=== PATIENT | female | born 1945 | race Caucasian/White ===

== ENCOUNTER 2018-03-03 09:32 | Emergency (ER) | payer MEDICARE, SELFPAY ==
[2018-03-03 09:36] VITALS: BP 137/84; PULSE 69; RESP 14; TEMP 36.6; O2SAT 99; BMI 26.9
--- NOTE | 2018-03-03 10:12 | RAD_ITS ---
STUDY: X-RAY - RIGHT FOOT CLINICAL: Female, 72 years old. 2 week history of dorsal foot pain following injury. TECHNIQUE: 3 view(s) of the foot. COMPARISON: None. FINDINGS: There is an enthesophyte involving the posterior superior calcaneus at the site of insertion of the Achilles tendon. Normal visualized subtalar, talonavicular, calcaneocuboid, tarsal and tarsometatarsal articulations. Normal metatarsi. There is degenerative arthrosis of the metatarsophalangeal joint of the hallux . Normal tibial and fibular sesamoid bones. Normal interphalangeal joint of the great toe. Normal phalanges of the great toe. Normal second through fifth metatarsophalangeal joints. Normal interphalangeal joints and phalanges of the lesser toes. Soft tissue swelling. RAD/Foot min 3 Views IMPRESSION: No acute abnormality is seen. Electronically Signed: Homero Urban MD at 10:45 EST Tel [phone], Service support ,
--- NOTE | 2018-03-03 11:11 | ED.DCSUM_ITS ---
- ER Visit Summary Date of Service: 03/03/18 Chief Complaint: Right foot pain History of Present Illness: The patient is a 72 F who presents with right foot pain that began approximately 2 weeks ago when a 2 x 2 piece of wood fell onto her right foot. Patient states the pain is worse with certain movements and ambulation. Patient states the pain improves with certain other movements. Patient denies any paresthesias or weakness. Patient states the pain became worse today and she felt like today she needed to have it examined. Patient denies any other injuries. Physical Examination: Vital signs are stable. Patient is afebrile. Patient is in no acute distress. Musculoskeletal exam reveals tenderness with some mild edema and ecchymosis over the dorsal aspect of the right foot, worse over the first tarsometatarsal joint. There is no deformity noted. There is good range of motion. There is some pain with plantar flexion and dorsiflexion. Pedal pulses are equal bilaterally. Sensation was intact to light touch in all digits. Capillary refill was less than 2 seconds in all digits. The remaining physical exam is within normal limits. Test Results: X-rays of the right foot were obtained. There is no acute fracture. There is no dislocation noted. Emergency Department Course and Treatment: Patient was instructed to ice and elevate the right foot. Patient was given a boot orthosis. Patient was instructed to take ibuprofen or Tylenol as needed for pain. Patient was instructed to follow-up with her primary care physician in 5-7 days. Patient understood and was agreeable with the plan. All questions were answered. Disposition: Discharged home Impression: Right foot sprain This note was generated with [employer] dictation software. It may contain incorrect words, spelling, and punctuation that were not noted in review of the chart prior to signing ED Disposition - Plan for ED Patient: Disposition: Home or Assisted Living Chief Complaint: Lower Extremity Injury Diagnosis: Right foot sprain Instructions: ED Sprain Foot Referrals: Gianni Vizcarra DO [Primary Care Provider] -
[2018-03-03 11:35] VITALS: BP 126/77; PULSE 62; RESP 15; O2SAT 99
--- OUTSIDE RECORDS SUMMARY | 2018-04-19 05:29 | XMS RPT_ITS ---
:1945 Author Organization [facility] Care Team Providers Name Role Phone Gianni Vizcarra Primary Care Unavailable Avtar Maria Attending Unavailable PROBLEMS PROBLEMS No Problem Records FoundPROCEDURES PROCEDURES No Procedure Records FoundRESULTS RESULTS EMERGENCY DEPARTMENT Observed: 03/03/2018 Status: F Source: [place] SUMMARY 11:13 AM [facility] Medical Records Department [address] [place] [id number] Emergency Department Summary 03/03/18 1107 MR#: [id number] Acct: [id number] Name: JANNY HAMMER Rep #: [id number] : 1945 72 From: Avtar Maria DO PCP: Gianni Vizcarra DO Status: REG ER - ER Visit Summary Date of Service: 03/03/18 Chief Complaint: Right foot pain History of Present Illness: The patient is a 72 F who presents with right foot pain that began approximately 2 weeks ago when a 2 x 2 piece of wood fell onto her right foot. Patient states the pain is worse with certain movements and ambulation. Patient states the pain improves with certain other movements. Patient denies any paresthesias or weakness. Patient states the pain became worse today and she felt like today she needed to have it examined. Patient denies any other injuries. Physical Examination: Vital signs are stable. Patient is afebrile. Patient is in no acute distress. Musculoskeletal exam reveals tenderness with some mild edema and ecchymosis over the dorsal aspect of the right foot, worse over the first tarsometatarsal joint. There is no deformity noted. There is good range of motion. There is some pain with plantar flexion and dorsiflexion. Pedal pulses are equal bilaterally. Sensation was intact to light touch in all digits. Capillary refill was less than 2 seconds in all digits. The remaining physical exam is within normal limits. Test Results: X-rays of the right foot were obtained. There is no acute fracture. There is no dislocation noted. Emergency Department Course and Treatment: Patient was instructed to ice and elevate the right foot. Patient was given a boot orthosis. Patient was instructed to take ibuprofen or Tylenol as needed for pain. Patient was instructed to follow-up with her primary care physician in 5-7 days. Patient understood and was agreeable with the plan. All questions were answered. Disposition: Discharged home Impression: Right foot sprain This note was generated with [employer] dictation software. It may contain incorrect words, spelling, and punctuation that were not noted in review of the chart prior to signing ED Disposition - Plan for ED Patient: Disposition: Home or Assisted Living Chief Complaint: Lower Extremity Injury Diagnosis: Right foot sprain Instructions: ED Sprain Foot Referrals: Gianni Vizcarra DO [Primary Care Provider] - What to do if you have Problems For any increased pain, shortness of breath, bleeding, nausea or vomiting, chest pain, or any unexpected problems, contact your Primary Care Provider. Call [facility] ([phone]) or report to the closest Emergency Room. Call 911 if necessary. 03/03/18 1113 <Electronically signed by Avtar Maria DO> Date Avtar Maria DO Cosigner Signature (If Indicated): Date CC: Gianni Vizcarra DO FOOT MIN 3 VIEWS Observed: 03/03/2018 Status: F Source: [place] 10:12 AM [facility] Imaging Services [address] [place] [address] Foot min 3 Views MR#: [id number] Acct: [id number] Name: JANNY HAMMER Rep #: [id number] : 1945 F 72 From: Homero Urban MD PCP: Gianni Vizcarra DO Status: REG ER Study: Foot min 3 Views Date of Exam: 03/03/18 Exam# [id number] Ordering Dr: Avtar Maria DO STUDY: X-RAY - RIGHT FOOT CLINICAL: Female, 72 years old. 2 week history of dorsal foot pain following injury. TECHNIQUE: 3 view(s) of the foot. COMPARISON: None. FINDINGS: There is an enthesophyte involving the posterior superior calcaneus at the site of insertion of the Achilles tendon. Normal visualized subtalar, talonavicular, calcaneocuboid, tarsal and tarsometatarsal articulations. Normal metatarsi. There is degenerative arthrosis of the metatarsophalangeal joint of the hallux . Normal tibial and fibular sesamoid bones. Normal interphalangeal joint of the great toe. Normal phalanges of the great toe. Normal second through fifth metatarsophalangeal joints. Normal interphalangeal joints and phalanges of the lesser toes. Soft tissue swelling. RAD/Foot min 3 Views IMPRESSION: No acute abnormality is seen. Electronically Signed: Homero Urban MD at 10:45 EST Tel [phone], Service support , CC: Avtar Maria DO; Gianni Vizcarra DO Impact Hammer Operator: Signed ALLERGIES ALLERGIES DATE TYPE / CODE NAME / CODE REACTION SEVERITY SOURCE 03/03/2018 Drug Penicillins/ Swelling Unknown [facility] Allergy/4160 [id number]( Hospital 07266(SNOMED XNORM) Repository CT) ENCOUNTERS ENCOUNTERS ADMIT/DISCHARGE ACCOUNT ADMITTING ENCOUNTER LOCATION SOURCE NUMBER CLASS 03/03/2018[id number] [facility] [address] [facility] ing:ED Repository PAYERS PAYERS ENCOUNTER GUARANTOR PAYER SUBSCRIBER SOURCE 03/03/2018 BOBY [id number] [facility] WEAVER MEDICAREPolicy [id number] Number: [facility] [place] [address]Jdr: [id number] Date:[id number] BOX ([address]) [address], [place] [address]RN: 03/03/2018 Secondary NOT GIVENBIGG [place] Insurance:SELF PAY [facility] Number: Effective Repository Date:2018-03-03
== END 2018-03-03 11:35 | disposition home or self-care (01) ==
PROVIDERS: Emergency Provider Emergency Medicine; Family Provider Preventive Medicine Occupational Medicine; PCP Preventive Medicine Occupational Medicine
DX: S93.601A Unspecified sprain of right foot, initial encounter (principal); W20.8XXA Other cause of strike by thrown, projected or falling object, initial encounter; Y93.9 Activity, unspecified; Y92.9 Unspecified place or not applicable; Y99.9 Unspecified external cause status
CPT/HCPCS: 73630; 99282

== ENCOUNTER → 2019-06-05 11:13 | Outpatient (CLI) | payer MEDICARE, SELFPAY ==
--- NOTE | 2019-06-05 11:26 | EKG12_ITS ---
Test Reason : PRE-OP Blood Pressure : / mmHG Vent. Rate : 060 BPM Atrial Rate : 060 BPM P-R Int : 184 ms QRS Dur : 096 ms QT Int : 410 ms P-R-T Axes : 043 -23 020 degrees QTc Int : 410 ms Normal sinus rhythm Normal ECG Confirmed by AMANDA DURON, PRABHAKAR ([id number]), supervising editor trailer LORETO ENGLISH ([id number]) on 06/05/2019 1:42:42 PM Referred By: Mel Kilgore Confirmed By:PRABHAKAR PATEL MD
[2019-06-05 12:45] LABS: Absolute Lymphocyte Count 3.41 X10^3/uL (0.83-4.51); Absolute Neutrophil Count 4.4 X10^3/uL (2.0-7.7); Basophil# 0.06 X10^3/uL; Basophil% 0.7 % (0-1); Eosinophil# 0.32 X10^3/uL; Eosinophils% 3.5 % (0-5); Lymphocyte # 3.41 X10^3/ul (4.0); Lymphocyte % 37.6 % (19-41); Mean Corp Hgb Conc 33.3 g/dL (32-36); Mean Corpuscular Hgb 28.3 pg (27.0-32.0); Mean Corpuscular Volume 84.8 fL (81-99); Mean Platelet Vol. 9.2 fl (6.2-12.0); Monocyte# 0.88 X10^3/uL; Monocyte% 9.7 % (0-10); NRBC Flagged by Analyzer 0 % (0-5); Neutrophil # 4.38 X10^3/uL (2.7-7.7); Neutrophil % 48.2 % (47-70); Platelet Count 287 K/mm3 (150-450); RBC Distribution Width CV 12.9 % (11.6-14.6); RBC Distribution Width SD 39.4 fl (35.1-43.9); Red Blood Count 4.95 M/mm3 (4.2-5.4); White Blood Count 9.1 K/mm3 (4.4-11.0)
[2019-06-05 13:24] LABS: Anion Gap 4 (5-15); BUN 15 mg/dL (7-18); BUN/Creat Ratio 18.8 RATIO (10-20); Calcium,Total 9.8 mg/dL (8.5-10.1); Chloride 111 mmol/L (98-107); EST Glomerular Filtration Rate 75 mL/min (>60); Est Glom Filt Rate - Afr Amer 90 mL/min (>60); Glucose 87 mg/dL (74-106); Potassium 4.2 mmol/L (3.5-5.1); Sodium Level 142 mmol/L (136-145)
== END ==
PROVIDERS: PCP Preventive Medicine Occupational Medicine; Referring Provider Registered Nurse; Visit Provider Registered Nurse
DX: Z01.818 Encounter for other preprocedural examination (principal); Z01.810 Encounter for preprocedural cardiovascular examination
CPT/HCPCS: 36415; 80048; 85025; 93005

== ENCOUNTER 2022-12-17 15:19 | Emergency (ER) | payer MEDICARE, SELFPAY ==
[2022-12-17 15:20] VITALS: BP 107/79; PULSE 115; RESP 19; TEMP 36.4; O2SAT 100; O2SAT 91; BMI 30.3
[2022-12-17 15:27] VITALS: O2SAT 100
[2022-12-17 15:30] VITALS: O2SAT 97; O2SAT 98
[2022-12-17] MEDS: fentaNYL 100 MCG/2 ML Ampul 50 MCG IV (15:31)
[2022-12-17 15:36] LABS: Absolute Lymphocyte Count 6.36 X10^3/uL (0.83-4.51); Absolute Neutrophil Count 10.2 X10^3/uL (2.0-7.7); Basophil# 0.11 X10^3/uL; Basophil% 0.6 % (0-1); Eosinophil# 0.13 X10^3/uL; Eosinophils% 0.7 % (0-5); Hematocrit 36.7 % (37-47); Hemoglobin 12.2 g/dL (12.0-15.0); Lymphocyte # 6.36 X10^3/ul (0.83-4.51); Lymphocyte % 35.3 % (19-41); Mean Corp Hgb Conc 33.2 g/dL (32-36); Mean Corpuscular Volume 87.2 fL (81-99); Mean Platelet Vol. 9.1 fl (6.2-12.0); Monocyte# 0.66 X10^3/uL; Monocyte% 3.7 % (0-10); NRBC Flagged by Analyzer 0 % (0-5); Neutrophil # 10.22 X10^3/uL (2.7-7.7); Neutrophil % 56.6 % (47-70); POSITIVE DIFFERENTIAL YES; POSITIVE MORPHOLOGY YES; Platelet Count 250 K/mm3 (150-450); RBC Distribution Width CV 12.7 % (11.6-14.6); RBC Distribution Width SD 40.1 fl (35.1-43.9); Red Blood Count 4.21 M/mm3 (4.2-5.4)
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
[2022-12-17 15:39] LABS: Differential Indicated SCAN CRITERIA MET
[2022-12-17 15:46] LABS: Alcohol, Blood (Medical)-Serum < 3.0 mg/dL
[2022-12-17 15:50] LABS: AST(SGOT) 69 U/L (15-37); Alanine Aminotransfer ALT/SGPT 51 U/L (13-56); Albumin, Serum 3.2 g/dL (3.2-5.0); Alkaline Phosphatase 44 U/L (45-117); Anion Gap 2 (5-15); BUN 18 mg/dL (7-18); BUN/Creat Ratio 19.2 RATIO (10-20); Bilirubin, Direct 0.07 mg/dL (0.00-0.30); Chloride 113 mmol/L (98-107); Creatinine, Serum 0.94 mg/dL (0.55-1.02); EST Glomerular Filtration Rate 61 mL/min (>60); Est Glom Filt Rate - Afr Amer 74 mL/min (>60); Estimated Creatinine Clearance 51.32 ml/min; Globulin 3.1 g/dL (2.2-4.2); Glucose 120 mg/dL (74-106); Potassium 3.4 mmol/L (3.5-5.1); Protein, Total 6.3 g/dL (6.4-8.2); Sodium Level 142 mmol/L (136-145)
[2022-12-17 15:55] LABS: Bedside Glucose 100 mg/dL (74-106)
--- NOTE | 2022-12-17 15:59 | ED.RN ---
attempted to contact pt spouse, voicemail unavailable.
[2022-12-17 16:00] VITALS: BP 109/62; PULSE 115; RESP 21; O2SAT 98
--- NOTE | 2022-12-17 16:00 | ED.RN ---
Addendum entered by Eun Ryder 12/17/22 16:03: All report given to [facility] before pt left. Original Note: Attempted to call report to [facility] er/charge nurse. transfered numerous times with no answer.
[2022-12-17 16:01] LABS: International Normalized Ratio 1.3; Prothrombin Time (Protime)PT. 15.7 SECONDS (11.7-14.9)
[2022-12-17 16:02] LABS: Atypical Lymphocyte 1+ %
[2022-12-17 16:03] LABS: Anisocytosis RARE; Macrocytosis RARE; Platelet Estimate ADEQUATE (ADEQ); Red Cell Morphology NORM C+C NORMAL (NORM C&C)
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
== END 2022-12-17 16:29 | disposition short-term general hospital (02) ==
PROVIDERS: Emergency Provider Student in an Organized Health Care Education/Training Program; PCP Preventive Medicine Occupational Medicine; Visit Provider Student in an Organized Health Care Education/Training Program
DX: S01.01XA Laceration without foreign body of scalp, initial encounter (principal); S39.91XA Unspecified injury of abdomen, initial encounter; V43.52XA Car driver injured in collision with other type car in traffic accident, initial encounter; Y93.89 Activity, other specified
CPT/HCPCS: 80048; 80076; 82077; 82962; 85025; 85610; 96374; 99285; J7030; A4216

== ENCOUNTER 2023-06-11 16:05 | Outpatient (CLI) | payer MEDICARE, SELFPAY ==
[2023-06-11 16:19] VITALS: BP 156/73; PULSE 87; RESP 18; TEMP 36.7; O2SAT 100
[2023-06-11] MEDS: 0.9% Saline Lock 10 ML Syringe IV ×2 (16:26→18:32)
[2023-06-11] MEDS: Vancomycin HCl 1,250 MG in 0.9% Normal Saline (250mL Bag) 250 ML 167 MG IV (16:26)
[2023-06-11] MEDS: 0.9% Normal Saline (250mL Bag) 250 ML 15 ML IV (16:27)
== END 2023-06-11 18:36 | disposition home or self-care (01) ==
LOC: MEDOUTP 16:06 → MS3 16:08
PROVIDERS: PCP Preventive Medicine Occupational Medicine; Referring Provider Internal Medicine Infectious Disease; Visit Provider Internal Medicine Infectious Disease
DX: R78.81 Bacteremia (principal); M46.36 Infection of intervertebral disc (pyogenic), lumbar region; B95.62 Methicillin resistant Staphylococcus aureus infection as the cause of diseases classified elsewhere
CPT/HCPCS: 96365; 96366; J7050; A4216

== ENCOUNTER 2023-06-12 15:31 | Outpatient (CLI) | payer MEDICARE, SELFPAY ==
[2023-06-12] MEDS: Vancomycin HCl 1,250 MG in 0.9% Normal Saline (250mL Bag) 250 ML 167 MG IV (15:45)
== END 2023-06-12 18:17 | disposition home or self-care (01) ==
LOC: MEDOUTP 15:31 → MS3 15:34
PROVIDERS: PCP Preventive Medicine Occupational Medicine; Referring Provider Internal Medicine Infectious Disease; Visit Provider Internal Medicine Infectious Disease
DX: R78.81 Bacteremia (principal); M46.36 Infection of intervertebral disc (pyogenic), lumbar region; B95.62 Methicillin resistant Staphylococcus aureus infection as the cause of diseases classified elsewhere
CPT/HCPCS: 96365; 96366; J7050

== ENCOUNTER 2023-06-13 13:58 | Outpatient (CLI) | payer MEDICARE, SELFPAY ==
[2023-06-13] MEDS: 0.9% Saline Lock 10 ML Syringe IV ×2 (14:00→16:32)
[2023-06-13] MEDS: 0.9% Normal Saline (250mL Bag) 250 ML 15 ML IV (14:00)
[2023-06-13] MEDS: Vancomycin HCl 1,250 MG in 0.9% Normal Saline (250mL Bag) 250 ML 167 MG IV (14:20)
== END 2023-06-13 16:35 | disposition home or self-care (01) ==
LOC: MEDOUTP 13:58 → MS3 14:11
PROVIDERS: PCP Preventive Medicine Occupational Medicine; Referring Provider Internal Medicine Infectious Disease; Visit Provider Internal Medicine Infectious Disease
DX: R78.81 Bacteremia (principal); M46.36 Infection of intervertebral disc (pyogenic), lumbar region; B95.62 Methicillin resistant Staphylococcus aureus infection as the cause of diseases classified elsewhere
CPT/HCPCS: 96365; 96366; J7050; A4216

== ENCOUNTER 2023-06-14 13:03 | Outpatient (CLI) | payer MEDICARE, SELFPAY ==
[2023-06-12 15:10] VITALS: BP 158/75; PULSE 99; RESP 16; TEMP 36.9; O2SAT 100
[2023-06-14 13:53] VITALS: BP 131/66; PULSE 88; RESP 16; TEMP 36.4
[2023-06-14 13:55] LABS: Erythrocyte Sedimentation Rate 41 mm/hr (0-30)
[2023-06-14 13:57] LABS: Hematocrit 26.8 % (37-47); Hemoglobin 8.2 g/dL (12.0-15.0); Mean Corp Hgb Conc 30.6 g/dL (32-36); Mean Corpuscular Hgb 24.6 pg (27.0-32.0); Mean Corpuscular Volume 80.5 fL (81-99); Mean Platelet Vol. 8.3 fl (6.2-12.0); Platelet Count 347 K/mm3 (150-450); RBC Distribution Width CV 15.5 % (11.6-14.6); RBC Distribution Width SD 45.5 fl (35.1-43.9); Red Blood Count 3.33 M/mm3 (4.2-5.4); White Blood Count 16.3 K/mm3 (4.4-11.0)
[2023-06-14] MEDS: Vancomycin HCl 1,250 MG in 0.9% Normal Saline (250mL Bag) 250 ML 167 MG IV (14:01)
[2023-06-14 14:04] LABS: Anion Gap 8 (5-15); BUN 16 mg/dL (7-18); BUN/Creat Ratio 26.9 RATIO (10-20); Calcium,Total 9.7 mg/dL (8.5-10.1); Chloride 105 mmol/L (98-107); EST Glomerular Filtration Rate 103 mL/min (>60); Est Glom Filt Rate - Afr Amer 125 mL/min (>60); Glucose 111 mg/dL (74-106); Potassium 4.3 mmol/L (3.5-5.1); Sodium Level 141 mmol/L (136-145)
[2023-06-14 14:14] LABS: Vancomycin, Trough Level 13.1 ug/mL (5.0-15.0)
== END 2023-06-14 13:04 | disposition home or self-care (01) ==
LOC: MEDOUTP 13:05
PROVIDERS: PCP Preventive Medicine Occupational Medicine; Referring Provider Internal Medicine Infectious Disease; Visit Provider Internal Medicine Infectious Disease
DX: M46.26 Osteomyelitis of vertebra, lumbar region (principal); R78.81 Bacteremia; B95.62 Methicillin resistant Staphylococcus aureus infection as the cause of diseases classified elsewhere; L08.89 Other specified local infections of the skin and subcutaneous tissue
CPT/HCPCS: 96365; 96366; 36592; 80048; 80202; 85027; 85652; J7050; A4216

== ENCOUNTER 2023-06-15 12:56 | Outpatient (CLI) | payer MEDICARE, SELFPAY ==
[2023-06-15] MEDS: Vancomycin HCl 1,250 MG in 0.9% Normal Saline (250mL Bag) 250 ML 167 MG IV (13:22)
[2023-06-15 13:26] VITALS: BP 132/65; PULSE 86; RESP 16; TEMP 35.6; O2SAT 100
[2023-06-15 15:07] VITALS: BP 128/62; PULSE 85; TEMP 35.8
== END 2023-06-15 12:57 | disposition home or self-care (01) ==
LOC: MEDOUTP 12:56
PROVIDERS: PCP Preventive Medicine Occupational Medicine; Referring Provider Internal Medicine Infectious Disease; Visit Provider Internal Medicine Infectious Disease
DX: R78.81 Bacteremia (principal); B95.62 Methicillin resistant Staphylococcus aureus infection as the cause of diseases classified elsewhere; L08.89 Other specified local infections of the skin and subcutaneous tissue
CPT/HCPCS: 96365; 96366; J7050; A4216

== ENCOUNTER 2023-06-16 12:55 | Outpatient (CLI) | payer MEDICARE, SELFPAY ==
[2023-06-16] MEDS: Vancomycin HCl 1,250 MG in 0.9% Normal Saline (250mL Bag) 250 ML 167 MG IV (13:24)
[2023-06-16 13:25] VITALS: BP 134/64; PULSE 101; RESP 16; TEMP 36.2; O2SAT 96
[2023-06-16 15:07] VITALS: BP 128/64; PULSE 65
== END 2023-06-16 12:56 | disposition home or self-care (01) ==
LOC: MEDOUTP 12:55
PROVIDERS: PCP Preventive Medicine Occupational Medicine; Referring Provider Internal Medicine Infectious Disease; Visit Provider Internal Medicine Infectious Disease
DX: R78.81 Bacteremia (principal); M46.36 Infection of intervertebral disc (pyogenic), lumbar region; B95.62 Methicillin resistant Staphylococcus aureus infection as the cause of diseases classified elsewhere
CPT/HCPCS: 96365; 96366; J7050; A4216

== ENCOUNTER 2023-06-17 13:01 | Outpatient (CLI) | payer MEDICARE, SELFPAY ==
[2023-06-17] MEDS: Vancomycin HCl 1,250 MG in 0.9% Normal Saline (250mL Bag) 250 ML 167 MG IV (13:30)
[2023-06-17 13:33] VITALS: BP 119/60; PULSE 100; RESP 16; TEMP 36.3; O2SAT 94
[2023-06-17 15:16] VITALS: BP 112/65; PULSE 88
== END 2023-06-17 13:02 | disposition home or self-care (01) ==
LOC: MEDOUTP 13:01
PROVIDERS: PCP Preventive Medicine Occupational Medicine; Referring Provider Internal Medicine Infectious Disease; Visit Provider Internal Medicine Infectious Disease
DX: R78.81 Bacteremia (principal); M46.36 Infection of intervertebral disc (pyogenic), lumbar region; B95.62 Methicillin resistant Staphylococcus aureus infection as the cause of diseases classified elsewhere
CPT/HCPCS: 96365; 96366; J7050; A4216

== ENCOUNTER 2023-06-18 12:40 | Outpatient (CLI) | payer MEDICARE, SELFPAY ==
[2023-06-18] MEDS: Vancomycin HCl 1,250 MG in 0.9% Normal Saline (250mL Bag) 250 ML 167 MG IV (13:00)
[2023-06-18 13:02] VITALS: BP 133/71; PULSE 93; RESP 16; TEMP 35.7; O2SAT 100; BMI 20.9
[2023-06-18 14:47] VITALS: BP 153/79; PULSE 93; RESP 16; TEMP 36.1; O2SAT 100
== END 2023-06-18 12:41 | disposition home or self-care (01) ==
LOC: MEDOUTP 12:40
PROVIDERS: PCP Preventive Medicine Occupational Medicine; Referring Provider Internal Medicine Infectious Disease; Visit Provider Internal Medicine Infectious Disease
DX: R78.81 Bacteremia (principal); M46.36 Infection of intervertebral disc (pyogenic), lumbar region; B95.62 Methicillin resistant Staphylococcus aureus infection as the cause of diseases classified elsewhere
CPT/HCPCS: 96365; 96366; J7050; A4216

== ENCOUNTER 2023-06-19 13:53 | Outpatient (CLI) | payer MEDICARE, SELFPAY ==
[2023-06-19 13:18] VITALS: BMI 20.5
[2023-06-19] MEDS: Vancomycin HCl 1,250 MG in 0.9% Normal Saline (250mL Bag) 250 ML 167 MG IV (13:43)
[2023-06-19 13:48] VITALS: BP 132/73; PULSE 85; RESP 16; TEMP 36.4; O2SAT 99
[2023-06-19] MEDS: 0.9% Saline Lock 10 ML Syringe IV (15:40)
== END 2023-06-19 15:40 | disposition home or self-care (01) ==
LOC: MEDOUTP 13:54 → MS3 13:55
PROVIDERS: PCP Preventive Medicine Occupational Medicine; Referring Provider Internal Medicine Infectious Disease; Visit Provider Internal Medicine Infectious Disease
DX: R78.81 Bacteremia (principal); M46.36 Infection of intervertebral disc (pyogenic), lumbar region; B95.62 Methicillin resistant Staphylococcus aureus infection as the cause of diseases classified elsewhere
CPT/HCPCS: 96365; 96366; J7050; A4216

== ENCOUNTER 2023-06-20 13:11 | Outpatient (CLI) | payer MEDICARE, SELFPAY ==
[2023-06-20] MEDS: Vancomycin HCl 1,250 MG in 0.9% Normal Saline (250mL Bag) 250 ML 167 MG IV (13:17)
[2023-06-20 13:24] VITALS: BP 126/60; PULSE 93; RESP 16; TEMP 36.8; O2SAT 99
== END 2023-06-20 15:18 | disposition home or self-care (01) ==
LOC: MEDOUTP 13:12 → MS3 13:12
PROVIDERS: PCP Preventive Medicine Occupational Medicine; Referring Provider Internal Medicine Infectious Disease; Visit Provider Internal Medicine Infectious Disease
DX: R78.81 Bacteremia (principal); M46.36 Infection of intervertebral disc (pyogenic), lumbar region; B95.62 Methicillin resistant Staphylococcus aureus infection as the cause of diseases classified elsewhere
CPT/HCPCS: 96365; 96366; J7050

== ENCOUNTER 2023-06-21 12:44 | Outpatient (CLI) | payer MEDICARE, SELFPAY ==
[2023-06-21] MEDS: Vancomycin HCl 1,250 MG in 0.9% Normal Saline (250mL Bag) 250 ML 167 MG IV (13:05)
[2023-06-21 13:06] VITALS: BP 130/60; PULSE 96; RESP 16; TEMP 36.2; O2SAT 97
[2023-06-21 14:48] VITALS: BP 128/52; PULSE 80
== END 2023-06-21 12:45 | disposition home or self-care (01) ==
PROVIDERS: PCP Preventive Medicine Occupational Medicine; Referring Provider Internal Medicine Infectious Disease; Visit Provider Internal Medicine Infectious Disease
DX: R78.81 Bacteremia (principal); M46.36 Infection of intervertebral disc (pyogenic), lumbar region; B95.62 Methicillin resistant Staphylococcus aureus infection as the cause of diseases classified elsewhere
CPT/HCPCS: 96365; 96366; J7050; A4216

== ENCOUNTER 2023-06-22 12:52 | Outpatient (CLI) | payer MEDICARE, SELFPAY ==
[2023-06-22] MEDS: Vancomycin HCl 1,250 MG in 0.9% Normal Saline (250mL Bag) 250 ML 167 MG IV (13:33)
[2023-06-22 13:42] VITALS: BP 115/65; PULSE 79; RESP 16; TEMP 36.6; O2SAT 100
[2023-06-22 13:54] LABS: Hematocrit 29.3 % (37-47); Hemoglobin 8.9 g/dL (12.0-15.0); Mean Corp Hgb Conc 30.4 g/dL (32-36); Mean Corpuscular Hgb 24.5 pg (27.0-32.0); Mean Corpuscular Volume 80.5 fL (81-99); Mean Platelet Vol. 8.2 fl (6.2-12.0); Platelet Count 485 K/mm3 (150-450); RBC Distribution Width SD 46.8 fl (35.1-43.9); Red Blood Count 3.64 M/mm3 (4.2-5.4); White Blood Count 10.7 K/mm3 (4.4-11.0)
[2023-06-22 14:09] LABS: Anion Gap 4 (5-15); BUN 22 mg/dL (7-18); BUN/Creat Ratio 31.5 RATIO (10-20); Calcium,Total 9.4 mg/dL (8.5-10.1); Chloride 107 mmol/L (98-107); EST Glomerular Filtration Rate 86 mL/min (>60); Est Glom Filt Rate - Afr Amer 104 mL/min (>60); Glucose 88 mg/dL (74-106); Sodium Level 138 mmol/L (136-145)
[2023-06-22 14:27] LABS: Vancomycin, Trough Level 13.9 ug/mL (5.0-15.0)
[2023-06-22 15:28] VITALS: BP 144/108; PULSE 94; RESP 14; TEMP 36.3; O2SAT 98
[2023-06-22 20:05] LABS: Erythrocyte Sedimentation Rate 38 mm/hr (0-30)
== END 2023-06-22 12:53 | disposition home or self-care (01) ==
LOC: MEDOUTP 12:52
PROVIDERS: PCP Preventive Medicine Occupational Medicine; Referring Provider Internal Medicine Infectious Disease; Visit Provider Internal Medicine Infectious Disease
DX: R78.81 Bacteremia (principal); M46.26 Osteomyelitis of vertebra, lumbar region; B95.62 Methicillin resistant Staphylococcus aureus infection as the cause of diseases classified elsewhere
CPT/HCPCS: 96365; 96366; 36592; 80048; 80202; 85027; 85652; J7050; A4216

== ENCOUNTER 2023-06-23 12:40 | Outpatient (CLI) | payer MEDICARE, SELFPAY ==
[2023-06-23 13:15] VITALS: BP 144/68; PULSE 91; RESP 16; TEMP 36.3; O2SAT 98
[2023-06-23] MEDS: Vancomycin HCl 1,250 MG in 0.9% Normal Saline (250mL Bag) 250 ML 167 MG IV (13:21)
[2023-06-23 15:08] VITALS: BP 142/64; PULSE 95; RESP 16; TEMP 36.2
== END 2023-06-23 12:41 | disposition home or self-care (01) ==
LOC: MEDOUTP 12:40
PROVIDERS: PCP Preventive Medicine Occupational Medicine; Referring Provider Internal Medicine Infectious Disease; Visit Provider Internal Medicine Infectious Disease
DX: R78.81 Bacteremia (principal); M46.26 Osteomyelitis of vertebra, lumbar region; B95.62 Methicillin resistant Staphylococcus aureus infection as the cause of diseases classified elsewhere
CPT/HCPCS: 96365; 96366; J7050; A4216

== ENCOUNTER 2023-06-24 12:54 | Outpatient (CLI) | payer MEDICARE, SELFPAY ==
[2023-06-24 13:01] VITALS: BP 127/88; PULSE 108; RESP 16; TEMP 36.1; O2SAT 98
[2023-06-24] MEDS: Vancomycin HCl 1,250 MG in 0.9% Normal Saline (250mL Bag) 250 ML 167 MG IV (13:10)
[2023-06-24 14:59] VITALS: BP 146/77; PULSE 103; RESP 16; TEMP 36.3; O2SAT 99
== END 2023-06-24 12:55 | disposition home or self-care (01) ==
LOC: MEDOUTP 12:54
PROVIDERS: PCP Preventive Medicine Occupational Medicine; Referring Provider Internal Medicine Infectious Disease; Visit Provider Internal Medicine Infectious Disease
DX: R78.81 Bacteremia (principal); M46.26 Osteomyelitis of vertebra, lumbar region; B95.62 Methicillin resistant Staphylococcus aureus infection as the cause of diseases classified elsewhere
CPT/HCPCS: 96365; 96366; J7050; A4216

== ENCOUNTER 2023-06-25 12:53 | Outpatient (CLI) | payer MEDICARE, SELFPAY ==
[2023-06-25] MEDS: Vancomycin HCl 1,250 MG in 0.9% Normal Saline (250mL Bag) 250 ML 167 MG IV (13:02)
[2023-06-25 13:06] VITALS: BP 112/69; PULSE 93; RESP 16; TEMP 36.4; O2SAT 98
[2023-06-25 14:58] VITALS: BP 136/74; PULSE 99; RESP 16; TEMP 36.5; O2SAT 99
== END 2023-06-25 12:54 | disposition home or self-care (01) ==
LOC: MEDOUTP 12:54
PROVIDERS: PCP Preventive Medicine Occupational Medicine; Referring Provider Internal Medicine Infectious Disease; Visit Provider Internal Medicine Infectious Disease
DX: R78.81 Bacteremia (principal); M46.26 Osteomyelitis of vertebra, lumbar region; B95.62 Methicillin resistant Staphylococcus aureus infection as the cause of diseases classified elsewhere
CPT/HCPCS: 96365; 96366; J7050; A4216

== ENCOUNTER 2023-06-26 12:54 | Outpatient (CLI) | payer MEDICARE, SELFPAY ==
[2023-06-26] MEDS: Vancomycin HCl 1,250 MG in 0.9% Normal Saline (250mL Bag) 250 ML 167 MG IV (12:59)
== END 2023-06-26 14:49 | disposition home or self-care (01) ==
LOC: MEDOUTP 12:55 → PCU 12:55
PROVIDERS: PCP Preventive Medicine Occupational Medicine; Referring Provider Internal Medicine Infectious Disease; Visit Provider Internal Medicine Infectious Disease
DX: R78.81 Bacteremia (principal); M46.26 Osteomyelitis of vertebra, lumbar region; B95.62 Methicillin resistant Staphylococcus aureus infection as the cause of diseases classified elsewhere
CPT/HCPCS: 96365; 96366; J7050

== ENCOUNTER 2023-06-27 13:01 | Outpatient (CLI) | payer MEDICARE, SELFPAY ==
[2023-06-27 13:08] VITALS: BP 129/67; PULSE 96
[2023-06-27] MEDS: Vancomycin HCl 1,250 MG in 0.9% Normal Saline (250mL Bag) 250 ML 167 MG IV (13:15)
== END 2023-06-27 15:00 | disposition home or self-care (01) ==
LOC: MEDOUTP 13:01 → PCU 13:02
PROVIDERS: PCP Preventive Medicine Occupational Medicine; Referring Provider Internal Medicine Infectious Disease; Visit Provider Internal Medicine Infectious Disease
DX: R78.81 Bacteremia (principal); M46.26 Osteomyelitis of vertebra, lumbar region; B95.62 Methicillin resistant Staphylococcus aureus infection as the cause of diseases classified elsewhere
CPT/HCPCS: 96365; 96366; J7050

== ENCOUNTER 2023-06-28 11:48 | Outpatient (CLI) | payer MEDICARE, SELFPAY ==
[2023-06-28] MEDS: Vancomycin HCl 1,250 MG in 0.9% Normal Saline (250mL Bag) 250 ML 167 MG IV (12:19)
[2023-06-28 12:21] VITALS: BP 143/54; PULSE 93; RESP 16; TEMP 36.6; O2SAT 98
[2023-06-28 14:09] VITALS: BP 139/70; PULSE 97; RESP 16; TEMP 36.2; O2SAT 99
== END 2023-06-28 11:49 | disposition home or self-care (01) ==
LOC: MEDOUTP 11:48
PROVIDERS: PCP Preventive Medicine Occupational Medicine; Referring Provider Internal Medicine Infectious Disease; Visit Provider Internal Medicine Infectious Disease
DX: R78.81 Bacteremia (principal); B95.62 Methicillin resistant Staphylococcus aureus infection as the cause of diseases classified elsewhere; L08.89 Other specified local infections of the skin and subcutaneous tissue
CPT/HCPCS: 96365; 96366; J7050; A4216

== ENCOUNTER 2023-06-29 12:50 | Outpatient (CLI) | payer MEDICARE, SELFPAY ==
[2023-06-29 13:22] LABS: Hemoglobin 9.5 g/dL (12.0-15.0); Mean Corp Hgb Conc 29.7 g/dL (32-36); Mean Corpuscular Hgb 24.1 pg (27.0-32.0); Mean Platelet Vol. 8.1 fl (6.2-12.0); Platelet Count 424 K/mm3 (150-450); RBC Distribution Width CV 15.7 % (11.6-14.6); RBC Distribution Width SD 46.2 fl (35.1-43.9); Red Blood Count 3.95 M/mm3 (4.2-5.4); White Blood Count 12.3 K/mm3 (4.4-11.0)
[2023-06-29] MEDS: Vancomycin HCl 1,250 MG in 0.9% Normal Saline (250mL Bag) 250 ML 167 MG IV (13:23)
[2023-06-29 13:25] VITALS: BP 119/70; PULSE 97; RESP 16; TEMP 36.1; O2SAT 97; BMI 24.0
[2023-06-29 13:27] LABS: Erythrocyte Sedimentation Rate 39 mm/hr (0-30)
[2023-06-29 13:43] LABS: Anion Gap 4 (5-15); BUN 15 mg/dL (7-18); BUN/Creat Ratio 23.5 RATIO (10-20); Calcium,Total 10.1 mg/dL (8.5-10.1); Chloride 106 mmol/L (98-107); Creatinine, Serum 0.64 mg/dL (0.55-1.02); EST Glomerular Filtration Rate 95 mL/min (>60); Est Glom Filt Rate - Afr Amer 116 mL/min (>60); Estimated Creatinine Clearance 40.96 ml/min; Glucose 116 mg/dL (74-106); Potassium 4.2 mmol/L (3.5-5.1); Sodium Level 138 mmol/L (136-145)
[2023-06-29 13:49] LABS: Vancomycin, Trough Level 14.9 ug/mL (5.0-15.0)
[2023-06-29 15:16] VITALS: BP 122/58; PULSE 88
== END 2023-06-29 12:51 | disposition home or self-care (01) ==
LOC: MEDOUTP 12:50
PROVIDERS: PCP Preventive Medicine Occupational Medicine; Referring Provider Internal Medicine Infectious Disease; Visit Provider Internal Medicine Infectious Disease
DX: R78.81 Bacteremia (principal); M46.26 Osteomyelitis of vertebra, lumbar region; B95.62 Methicillin resistant Staphylococcus aureus infection as the cause of diseases classified elsewhere
CPT/HCPCS: 96365; 96366; 36592; 80048; 80202; 85027; 85652; J7050; A4216

== ENCOUNTER 2023-06-30 13:02 | Outpatient (CLI) | payer MEDICARE, SELFPAY ==
[2023-06-30] MEDS: Vancomycin HCl 1,250 MG in 0.9% Normal Saline (250mL Bag) 250 ML 167 MG IV (13:07)
[2023-06-30 13:11] VITALS: BP 129/80; PULSE 109; RESP 16; TEMP 36.1; O2SAT 96; BMI 21.0
[2023-06-30 14:56] VITALS: BP 132/72; PULSE 105; RESP 16
== END 2023-06-30 13:03 | disposition home or self-care (01) ==
LOC: MEDOUTP 13:02
PROVIDERS: PCP Preventive Medicine Occupational Medicine; Referring Provider Internal Medicine Infectious Disease; Visit Provider Internal Medicine Infectious Disease
DX: R78.81 Bacteremia (principal); M46.26 Osteomyelitis of vertebra, lumbar region; B95.62 Methicillin resistant Staphylococcus aureus infection as the cause of diseases classified elsewhere
CPT/HCPCS: 96365; 96366; J7050; A4216

== ENCOUNTER 2023-07-01 12:39 | Outpatient (CLI) | payer MEDICARE, SELFPAY ==
[2023-07-01] MEDS: Vancomycin HCl 1,250 MG in 0.9% Normal Saline (250mL Bag) 250 ML 167 MG IV (13:13)
[2023-07-01 13:14] VITALS: BP 147/86; PULSE 105; RESP 16; TEMP 36.2
[2023-07-01 14:51] VITALS: BP 141/84; PULSE 95
== END 2023-07-01 12:40 | disposition home or self-care (01) ==
LOC: MEDOUTP 12:39
PROVIDERS: PCP Preventive Medicine Occupational Medicine; Referring Provider Internal Medicine Infectious Disease; Visit Provider Internal Medicine Infectious Disease
DX: R78.81 Bacteremia (principal); M46.26 Osteomyelitis of vertebra, lumbar region; B95.62 Methicillin resistant Staphylococcus aureus infection as the cause of diseases classified elsewhere
CPT/HCPCS: 96365; 96366; J7050; A4216

== ENCOUNTER 2023-07-02 12:54 | Outpatient (CLI) | payer MEDICARE, SELFPAY ==
[2023-07-02] MEDS: Vancomycin HCl 1,250 MG in 0.9% Normal Saline (250mL Bag) 250 ML 167 MG IV (13:03)
[2023-07-02 13:06] VITALS: BP 140/83; PULSE 93; RESP 16; TEMP 36.6; O2SAT 97
[2023-07-02 14:48] VITALS: BP 178/59; PULSE 89; RESP 16
== END 2023-07-02 12:55 | disposition home or self-care (01) ==
LOC: MEDOUTP 12:54
PROVIDERS: PCP Preventive Medicine Occupational Medicine; Referring Provider Internal Medicine Infectious Disease; Visit Provider Internal Medicine Infectious Disease
DX: R78.81 Bacteremia (principal); M46.26 Osteomyelitis of vertebra, lumbar region; B95.62 Methicillin resistant Staphylococcus aureus infection as the cause of diseases classified elsewhere
CPT/HCPCS: 96365; 96366; J7050; A4216

== ENCOUNTER 2023-07-03 12:56 | Outpatient (CLI) | payer MEDICARE, SELFPAY ==
[2023-07-03] MEDS: Vancomycin HCl 1,250 MG in 0.9% Normal Saline (250mL Bag) 250 ML 167 MG IV (13:09)
[2023-07-03 13:21] VITALS: BP 138/80; PULSE 95; RESP 18; TEMP 36.6; O2SAT 98
[2023-07-03] MEDS: 0.9 % NaCl (Sterile) Posiflush 10 mL IV (15:12)
== END 2023-07-03 15:12 | disposition home or self-care (01) ==
LOC: MEDOUTP 12:57 → PCU 12:57
PROVIDERS: PCP Preventive Medicine Occupational Medicine; Referring Provider Internal Medicine Infectious Disease; Visit Provider Internal Medicine Infectious Disease
DX: R78.81 Bacteremia (principal); M46.26 Osteomyelitis of vertebra, lumbar region; B95.62 Methicillin resistant Staphylococcus aureus infection as the cause of diseases classified elsewhere
CPT/HCPCS: 96365; 96366; J7050

== ENCOUNTER 2023-07-04 12:47 | Outpatient (CLI) | payer MEDICARE, SELFPAY ==
[2023-07-04] MEDS: Vancomycin HCl 1,250 MG in 0.9% Normal Saline (250mL Bag) 250 ML 167 MG IV (13:00)
== END 2023-07-04 14:40 | disposition home or self-care (01) ==
LOC: MEDOUTP 12:49 → PCU 12:49
PROVIDERS: PCP Preventive Medicine Occupational Medicine; Referring Provider Internal Medicine Infectious Disease; Visit Provider Internal Medicine Infectious Disease
DX: R78.81 Bacteremia (principal); M46.26 Osteomyelitis of vertebra, lumbar region; B95.62 Methicillin resistant Staphylococcus aureus infection as the cause of diseases classified elsewhere
CPT/HCPCS: 96365; 96366; J7040; J7050

== ENCOUNTER 2023-07-05 12:47 | Outpatient (CLI) | payer MEDICARE, SELFPAY ==
[2023-07-05] MEDS: Vancomycin HCl 1,250 MG in 0.9% Normal Saline (250mL Bag) 250 ML 167 MG IV (13:10)
[2023-07-05 13:18] VITALS: BP 128/73; PULSE 98; RESP 16; TEMP 36.5; O2SAT 98
[2023-07-05 15:03] VITALS: BP 141/69; PULSE 106; RESP 16; TEMP 36.6; O2SAT 98
== END 2023-07-05 12:48 | disposition home or self-care (01) ==
LOC: MEDOUTP 12:48
PROVIDERS: PCP Preventive Medicine Occupational Medicine; Referring Provider Internal Medicine Infectious Disease; Visit Provider Internal Medicine Infectious Disease
DX: R78.81 Bacteremia (principal); M46.26 Osteomyelitis of vertebra, lumbar region; B95.62 Methicillin resistant Staphylococcus aureus infection as the cause of diseases classified elsewhere
CPT/HCPCS: 96365; 96366; J7050; A4216

== ENCOUNTER 2023-07-06 12:50 | Outpatient (CLI) | payer MEDICARE, SELFPAY ==
[2023-07-06] MEDS: Vancomycin HCl 1,250 MG in 0.9% Normal Saline (250mL Bag) 250 ML 167 MG IV (13:22)
[2023-07-06 13:24] VITALS: BP 113/77; PULSE 86; RESP 16; TEMP 36.5; O2SAT 98
[2023-07-06 13:29] LABS: Hematocrit 29.4 % (37-47); Mean Corp Hgb Conc 30.6 g/dL (32-36); Mean Corpuscular Hgb 24.6 pg (27.0-32.0); Mean Corpuscular Volume 80.3 fL (81-99); Mean Platelet Vol. 8.4 fl (6.2-12.0); Platelet Count 315 K/mm3 (150-450); Red Blood Count 3.66 M/mm3 (4.2-5.4); White Blood Count 11.1 K/mm3 (4.4-11.0)
[2023-07-06 13:34] LABS: Erythrocyte Sedimentation Rate 28 mm/hr (0-30)
[2023-07-06 13:46] LABS: Anion Gap 3 (5-15); BUN 18 mg/dL (7-18); BUN/Creat Ratio 25.1 RATIO (10-20); Calcium,Total 9.6 mg/dL (8.5-10.1); Chloride 108 mmol/L (98-107); Creatinine, Serum 0.72 mg/dL (0.55-1.02); EST Glomerular Filtration Rate 84 mL/min (>60); Est Glom Filt Rate - Afr Amer 101 mL/min (>60); Glucose 122 mg/dL (74-106); Potassium 3.7 mmol/L (3.5-5.1); Sodium Level 139 mmol/L (136-145)
[2023-07-06 13:55] LABS: Vancomycin, Trough Level 15.6 ug/mL (5.0-15.0)
[2023-07-06 15:10] VITALS: BP 148/79; PULSE 87; RESP 16; TEMP 36.2
== END 2023-07-06 12:51 | disposition home or self-care (01) ==
LOC: MEDOUTP 12:51
PROVIDERS: PCP Preventive Medicine Occupational Medicine; Referring Provider Internal Medicine Infectious Disease; Visit Provider Internal Medicine Infectious Disease
DX: R78.81 Bacteremia (principal); M46.26 Osteomyelitis of vertebra, lumbar region; B95.62 Methicillin resistant Staphylococcus aureus infection as the cause of diseases classified elsewhere
CPT/HCPCS: 96365; 96366; 36592; 80048; 80202; 85027; 85652; J7050; A4216

== ENCOUNTER 2023-07-07 12:56 | Outpatient (CLI) | payer MEDICARE, SELFPAY ==
[2023-07-07] MEDS: Vancomycin HCl 1,250 MG in 0.9% Normal Saline (250mL Bag) 250 ML 167 MG IV (13:02)
[2023-07-07 13:03] VITALS: BP 113/77; PULSE 98; RESP 16; TEMP 36.2
[2023-07-07 14:45] VITALS: BP 141/79; PULSE 98; RESP 16; TEMP 36.6
== END 2023-07-07 12:57 | disposition home or self-care (01) ==
LOC: MEDOUTP 12:56
PROVIDERS: PCP Preventive Medicine Occupational Medicine; Referring Provider Internal Medicine Infectious Disease; Visit Provider Internal Medicine Infectious Disease
DX: R78.81 Bacteremia (principal); M46.26 Osteomyelitis of vertebra, lumbar region; B95.62 Methicillin resistant Staphylococcus aureus infection as the cause of diseases classified elsewhere
CPT/HCPCS: 96365; 96366; J7050; A4216

== ENCOUNTER 2023-07-08 12:38 | Outpatient (CLI) | payer MEDICARE, SELFPAY ==
[2023-07-08] MEDS: Vancomycin HCl 1,250 MG in 0.9% Normal Saline (250mL Bag) 250 ML 167 MG IV (13:03)
[2023-07-08 13:08] VITALS: BP 132/84; PULSE 83; RESP 16; TEMP 36.4; O2SAT 99
[2023-07-08 14:47] VITALS: BP 136/76; PULSE 86; RESP 16; TEMP 36.3; O2SAT 99
== END 2023-07-08 12:39 | disposition home or self-care (01) ==
LOC: MEDOUTP 12:38
PROVIDERS: PCP Preventive Medicine Occupational Medicine; Referring Provider Internal Medicine Infectious Disease; Visit Provider Internal Medicine Infectious Disease
DX: R78.81 Bacteremia (principal); M46.26 Osteomyelitis of vertebra, lumbar region; B95.62 Methicillin resistant Staphylococcus aureus infection as the cause of diseases classified elsewhere
CPT/HCPCS: 96365; 96366; J7050; A4216

== ENCOUNTER 2023-07-09 12:25 | Outpatient (CLI) | payer MEDICARE, SELFPAY ==
[2023-07-09] MEDS: Vancomycin HCl 1,250 MG in 0.9% Normal Saline (250mL Bag) 250 ML 167 MG IV (12:32)
[2023-07-09 12:34] VITALS: BP 154/112; PULSE 83; RESP 16; TEMP 36; O2SAT 97; BMI 24.0
[2023-07-09 14:18] VITALS: BP 152/92; PULSE 84; RESP 16; TEMP 35.6; O2SAT 100
== END 2023-07-09 12:26 | disposition home or self-care (01) ==
LOC: MEDOUTP 12:26
PROVIDERS: PCP Preventive Medicine Occupational Medicine; Referring Provider Internal Medicine Infectious Disease; Visit Provider Internal Medicine Infectious Disease
DX: R78.81 Bacteremia (principal); M46.26 Osteomyelitis of vertebra, lumbar region; B95.62 Methicillin resistant Staphylococcus aureus infection as the cause of diseases classified elsewhere
CPT/HCPCS: 96365; 96366; J7050; A4216

== ENCOUNTER 2023-07-10 13:25 | Outpatient (CLI) | payer MEDICARE, SELFPAY ==
[2023-07-10 13:07] VITALS: BP 141/75; PULSE 90; RESP 18; TEMP 36.6; O2SAT 99; BMI 22.9
[2023-07-10] MEDS: Vancomycin HCl 1,250 MG in 0.9% Normal Saline (250mL Bag) 250 ML 167 MG IV (13:09)
== END 2023-07-10 15:16 | disposition home or self-care (01) ==
LOC: MEDOUTP 13:26 → MS3 13:27
PROVIDERS: PCP Preventive Medicine Occupational Medicine; Referring Provider Internal Medicine Infectious Disease; Visit Provider Internal Medicine Infectious Disease
DX: R78.81 Bacteremia (principal); M46.26 Osteomyelitis of vertebra, lumbar region; B95.62 Methicillin resistant Staphylococcus aureus infection as the cause of diseases classified elsewhere
CPT/HCPCS: 96365; 96366; J7050

== ENCOUNTER 2023-07-11 13:02 | Outpatient (CLI) | payer MEDICARE, SELFPAY ==
[2023-07-11 13:15] VITALS: BP 125/71; PULSE 93; RESP 18; TEMP 36.8; O2SAT 98
[2023-07-11] MEDS: Vancomycin HCl 1,250 MG in 0.9% Normal Saline (250mL Bag) 250 ML 167 MG IV (13:27)
== END 2023-07-11 15:25 | disposition home or self-care (01) ==
LOC: MEDOUTP 13:03 → PCU 13:06
PROVIDERS: PCP Preventive Medicine Occupational Medicine; Referring Provider Internal Medicine Infectious Disease; Visit Provider Internal Medicine Infectious Disease
DX: R78.81 Bacteremia (principal); M46.26 Osteomyelitis of vertebra, lumbar region; B95.62 Methicillin resistant Staphylococcus aureus infection as the cause of diseases classified elsewhere
CPT/HCPCS: 96365; 96366; J7050

== ENCOUNTER 2023-07-12 12:34 | Outpatient (CLI) | payer MEDICARE, SELFPAY ==
[2023-07-12] MEDS: 0.9% NaCl Peripheral Flush Adult/Peds IV ×2 (12:40→14:36)
[2023-07-12] MEDS: Vancomycin HCl 1,250 MG in 0.9% Normal Saline (250mL Bag) 250 ML 167 MG IV (12:44)
[2023-07-12 12:48] VITALS: BP 131/79; PULSE 87; RESP 16; TEMP 35.9; O2SAT 96
[2023-07-12 14:37] VITALS: BP 135/89; PULSE 81; RESP 16; TEMP 35.8; O2SAT 97
== END 2023-07-12 12:35 | disposition home or self-care (01) ==
LOC: MEDOUTP 12:34
PROVIDERS: PCP Preventive Medicine Occupational Medicine; Referring Provider Internal Medicine Infectious Disease; Visit Provider Internal Medicine Infectious Disease
DX: R78.81 Bacteremia (principal); M46.26 Osteomyelitis of vertebra, lumbar region; B95.62 Methicillin resistant Staphylococcus aureus infection as the cause of diseases classified elsewhere
CPT/HCPCS: 96365; 96366; J7050; A4216

== ENCOUNTER 2023-07-13 12:41 | Outpatient (CLI) | payer MEDICARE, SELFPAY ==
[2023-07-13] MEDS: Vancomycin HCl 1,250 MG in 0.9% Normal Saline (250mL Bag) 250 ML 167 MG IV (13:33)
[2023-07-13 13:38] LABS: Erythrocyte Sedimentation Rate 30 mm/hr (0-30)
[2023-07-13 13:39] VITALS: BP 123/70; PULSE 70; RESP 16; TEMP 36.1; O2SAT 100
[2023-07-13 13:39] LABS: Hematocrit 31.4 % (37-47); Hemoglobin 9.6 g/dL (12.0-15.0); Mean Corp Hgb Conc 30.6 g/dL (32-36); Mean Corpuscular Hgb 24.2 pg (27.0-32.0); Mean Corpuscular Volume 79.3 fL (81-99); Mean Platelet Vol. 8.4 fl (6.2-12.0); Platelet Count 407 K/mm3 (150-450); RBC Distribution Width CV 15.1 % (11.6-14.6); RBC Distribution Width SD 43.7 fl (35.1-43.9); Red Blood Count 3.96 M/mm3 (4.2-5.4); White Blood Count 9.7 K/mm3 (4.4-11.0)
[2023-07-13 13:54] LABS: Anion Gap 3 (5-15); BUN 18 mg/dL (7-18); BUN/Creat Ratio 24.3 RATIO (10-20); Chloride 107 mmol/L (98-107); Creatinine, Serum 0.74 mg/dL (0.55-1.02); EST Glomerular Filtration Rate 80 mL/min (>60); Est Glom Filt Rate - Afr Amer 97 mL/min (>60); Glucose 113 mg/dL (74-106); Potassium 3.9 mmol/L (3.5-5.1); Sodium Level 137 mmol/L (136-145)
[2023-07-13 13:58] LABS: Vancomycin, Trough Level 17.7 ug/mL (5.0-15.0)
[2023-07-13 15:30] VITALS: BP 169/73; PULSE 90; RESP 16; TEMP 35.8; O2SAT 100
== END 2023-07-13 12:42 | disposition home or self-care (01) ==
LOC: MEDOUTP 12:42
PROVIDERS: PCP Preventive Medicine Occupational Medicine; Referring Provider Internal Medicine Infectious Disease; Visit Provider Internal Medicine Infectious Disease
DX: R78.81 Bacteremia (principal); M46.26 Osteomyelitis of vertebra, lumbar region; B95.62 Methicillin resistant Staphylococcus aureus infection as the cause of diseases classified elsewhere
CPT/HCPCS: 96365; 96366; 36415; 80048; 80202; 85027; 85652; J7050; A4216

== ENCOUNTER 2023-07-14 12:58 | Outpatient (CLI) | payer MEDICARE, SELFPAY ==
[2023-07-14] MEDS: Vancomycin HCl 1,250 MG in 0.9% Normal Saline (250mL Bag) 250 ML 167 MG IV (13:13)
[2023-07-14 13:15] VITALS: BP 163/64; PULSE 84; RESP 16; TEMP 36.4; O2SAT 95
[2023-07-14 15:01] VITALS: PULSE 78; RESP 16
== END 2023-07-14 12:59 | disposition home or self-care (01) ==
LOC: MEDOUTP 12:58
PROVIDERS: PCP Preventive Medicine Occupational Medicine; Referring Provider Internal Medicine Infectious Disease; Visit Provider Internal Medicine Infectious Disease
DX: R78.81 Bacteremia (principal); M46.26 Osteomyelitis of vertebra, lumbar region; B95.62 Methicillin resistant Staphylococcus aureus infection as the cause of diseases classified elsewhere
CPT/HCPCS: 96365; 96366; J7050; A4216

== ENCOUNTER 2023-07-15 12:44 | Outpatient (CLI) | payer MEDICARE, SELFPAY ==
[2023-07-15] MEDS: Vancomycin HCl 1,250 MG in 0.9% Normal Saline (250mL Bag) 250 ML 167 MG IV (12:51)
[2023-07-15 12:54] VITALS: BP 149/80; PULSE 73; RESP 16; TEMP 36.3; O2SAT 98
[2023-07-15 14:35] VITALS: BP 146/70; PULSE 94; RESP 16; TEMP 36.1; O2SAT 98
== END 2023-07-15 12:45 | disposition home or self-care (01) ==
LOC: MEDOUTP 12:44
PROVIDERS: PCP Preventive Medicine Occupational Medicine; Referring Provider Internal Medicine Infectious Disease; Visit Provider Internal Medicine Infectious Disease
DX: R78.81 Bacteremia (principal); M46.26 Osteomyelitis of vertebra, lumbar region; B95.62 Methicillin resistant Staphylococcus aureus infection as the cause of diseases classified elsewhere
CPT/HCPCS: 96365; 96366; J7050; A4216

== ENCOUNTER 2023-07-16 12:15 | Outpatient (CLI) | payer MEDICARE, SELFPAY ==
[2023-07-16] MEDS: Vancomycin HCl 1,250 MG in 0.9% Normal Saline (250mL Bag) 250 ML 167 MG IV (12:23)
[2023-07-16 12:27] VITALS: BP 156/74; PULSE 85; RESP 16; TEMP 36.3; O2SAT 97
[2023-07-16 14:18] VITALS: BP 129/82; PULSE 90; RESP 16; TEMP 36.1; O2SAT 98
== END 2023-07-16 12:16 | disposition home or self-care (01) ==
LOC: MEDOUTP 12:15
PROVIDERS: PCP Preventive Medicine Occupational Medicine; Referring Provider Internal Medicine Infectious Disease; Visit Provider Internal Medicine Infectious Disease
DX: R78.81 Bacteremia (principal); M46.26 Osteomyelitis of vertebra, lumbar region; B95.62 Methicillin resistant Staphylococcus aureus infection as the cause of diseases classified elsewhere
CPT/HCPCS: 96365; 96366; J7050; A4216

== ENCOUNTER 2023-07-17 12:42 | Outpatient (CLI) | payer MEDICARE, SELFPAY ==
[2023-07-17 12:52] VITALS: BP 143/55; PULSE 99; RESP 18; TEMP 36.6; O2SAT 100
[2023-07-17] MEDS: 0.9% Normal Saline (250mL Bag) 250 ML 15 ML IV (12:55)
[2023-07-17] MEDS: Vancomycin HCl 1,250 MG in 0.9% Normal Saline (250mL Bag) 250 ML 167 MG IV (12:56)
[2023-07-17] MEDS: 0.9% Saline Lock 10 ML Syringe IV ×2 (12:56→14:59)
[2023-07-17 15:28] VITALS: BP 155/71; PULSE 85; RESP 18; TEMP 36.6; O2SAT 100
== END 2023-07-17 15:13 | disposition home or self-care (01) ==
LOC: MEDOUTP 12:42 → MS3 12:43
PROVIDERS: PCP Preventive Medicine Occupational Medicine; Referring Provider Internal Medicine Infectious Disease; Visit Provider Internal Medicine Infectious Disease
DX: R78.81 Bacteremia (principal); M46.26 Osteomyelitis of vertebra, lumbar region; B95.62 Methicillin resistant Staphylococcus aureus infection as the cause of diseases classified elsewhere
CPT/HCPCS: 96365; 96366; J7050; A4216

== ENCOUNTER 2023-07-18 12:50 | Outpatient (CLI) | payer MEDICARE, SELFPAY ==
[2023-07-18 12:50] VITALS: BP 124/58; PULSE 87; RESP 18; TEMP 36.2; O2SAT 98
[2023-07-18] MEDS: 0.9 % NaCl (Sterile) Posiflush 10 mL IV (12:58)
[2023-07-18] MEDS: Vancomycin HCl 1,250 MG in 0.9% Normal Saline (250mL Bag) 250 ML 167 MG IV (12:58)
[2023-07-18] MEDS: 0.9% Normal Saline (250mL Bag) 250 ML 167 ML IV (14:41)
== END 2023-07-18 14:45 | disposition home or self-care (01) ==
LOC: MEDOUTP 12:50 → MS3 12:51
PROVIDERS: PCP Preventive Medicine Occupational Medicine; Referring Provider Internal Medicine Infectious Disease; Visit Provider Internal Medicine Infectious Disease
DX: R78.81 Bacteremia (principal); M46.26 Osteomyelitis of vertebra, lumbar region; B95.62 Methicillin resistant Staphylococcus aureus infection as the cause of diseases classified elsewhere
CPT/HCPCS: 96365; 96366; J7050

== ENCOUNTER 2023-07-19 12:58 | Outpatient (CLI) | payer MEDICARE, SELFPAY ==
[2023-07-19 13:15] VITALS: BP 154/86; PULSE 81; RESP 16; TEMP 36.2; O2SAT 98
[2023-07-19] MEDS: Vancomycin HCl 1,250 MG in 0.9% Normal Saline (250mL Bag) 250 ML 167 MG IV (13:20)
[2023-07-19 15:09] VITALS: BP 147/78; PULSE 82; RESP 16; O2SAT 98
== END 2023-07-19 12:59 | disposition home or self-care (01) ==
LOC: MEDOUTP 12:58
PROVIDERS: PCP Preventive Medicine Occupational Medicine; Referring Provider Internal Medicine Infectious Disease; Visit Provider Internal Medicine Infectious Disease
DX: R78.81 Bacteremia (principal); M46.26 Osteomyelitis of vertebra, lumbar region; B95.62 Methicillin resistant Staphylococcus aureus infection as the cause of diseases classified elsewhere
CPT/HCPCS: 96365; 96366; J7050; A4216

== ENCOUNTER 2023-07-20 11:20 | Outpatient (CLI) | payer MEDICARE, SELFPAY ==
[2023-07-20 13:10] VITALS: BP 136/56; PULSE 80; RESP 16; TEMP 36.4; O2SAT 97
[2023-07-20] MEDS: Vancomycin HCl 1,250 MG in 0.9% Normal Saline (250mL Bag) 250 ML 167 MG IV (13:10)
[2023-07-20 13:30] LABS: Absolute Lymphocyte Count 2.44 X10^3/uL (0.83-4.51); Basophil# 0.04 X10^3/uL; Basophil% 0.4 % (0-1); Eosinophil# 0.15 X10^3/uL; Eosinophils% 1.6 % (0-5); Hematocrit 31.8 % (37-47); Hemoglobin 9.7 g/dL (12.0-15.0); Lymphocyte # 2.44 X10^3/ul (0.83-4.51); Lymphocyte % 25.5 % (19-41); Mean Corp Hgb Conc 30.5 g/dL (32-36); Mean Corpuscular Hgb 24.1 pg (27.0-32.0); Mean Corpuscular Volume 79.1 fL (81-99); Mean Platelet Vol. 9.1 fl (6.2-12.0); Monocyte# 0.92 X10^3/uL; Monocyte% 9.6 % (0-10); NRBC Flagged by Analyzer 0 % (0-5); Neutrophil # 5.96 X10^3/uL (2.7-7.7); Neutrophil % 62.4 % (47-70); Platelet Count 393 K/mm3 (150-450); RBC Distribution Width CV 15.3 % (11.6-14.6); RBC Distribution Width SD 43.8 fl (35.1-43.9); Red Blood Count 4.02 M/mm3 (4.2-5.4); White Blood Count 9.6 K/mm3 (4.4-11.0)
[2023-07-20 13:40] LABS: Erythrocyte Sedimentation Rate 21 mm/hr (0-30)
[2023-07-20 13:49] LABS: Anion Gap 4 (5-15); BUN 18 mg/dL (7-18); BUN/Creat Ratio 26.9 RATIO (10-20); Calcium,Total 9.8 mg/dL (8.5-10.1); Chloride 109 mmol/L (98-107); Creatinine, Serum 0.67 mg/dL (0.55-1.02); EST Glomerular Filtration Rate 90 mL/min (>60); Est Glom Filt Rate - Afr Amer 109 mL/min (>60); Glucose 99 mg/dL (74-106); Sodium Level 140 mmol/L (136-145)
[2023-07-20 13:59] LABS: Vancomycin, Trough Level 18.2 ug/mL (5.0-15.0)
[2023-07-20 14:49] VITALS: BP 168/75; PULSE 82
== END 2023-07-20 11:21 | disposition home or self-care (01) ==
LOC: MEDOUTP 11:20
PROVIDERS: PCP Preventive Medicine Occupational Medicine; Referring Provider Internal Medicine Infectious Disease; Visit Provider Internal Medicine Infectious Disease
DX: R78.81 Bacteremia (principal); M46.26 Osteomyelitis of vertebra, lumbar region; B95.62 Methicillin resistant Staphylococcus aureus infection as the cause of diseases classified elsewhere
CPT/HCPCS: 96365; 96366; 36592; 80048; 80202; 85025; 85652; J7050; A4216

== ENCOUNTER 2023-07-21 12:57 | Outpatient (CLI) | payer MEDICARE, SELFPAY ==
[2023-07-21] MEDS: Vancomycin HCl 1,250 MG in 0.9% Normal Saline (250mL Bag) 250 ML 167 MG IV (13:08)
[2023-07-21 13:09] VITALS: BP 146/64; PULSE 88; RESP 16; TEMP 36.5; O2SAT 98
[2023-07-21 14:57] VITALS: BP 146/81; RESP 16; TEMP 36.2
== END 2023-07-21 12:58 | disposition home or self-care (01) ==
LOC: MEDOUTP 12:57
PROVIDERS: PCP Preventive Medicine Occupational Medicine; Referring Provider Internal Medicine Infectious Disease; Visit Provider Internal Medicine Infectious Disease
DX: R78.81 Bacteremia (principal); B95.62 Methicillin resistant Staphylococcus aureus infection as the cause of diseases classified elsewhere; L08.89 Other specified local infections of the skin and subcutaneous tissue
CPT/HCPCS: 96365; 96366; J7050; A4216

== ENCOUNTER 2023-07-22 12:43 | Outpatient (CLI) | payer MEDICARE, SELFPAY ==
[2023-07-22 13:00] VITALS: BP 141/72; PULSE 87; RESP 16; TEMP 36; O2SAT 97
[2023-07-22] MEDS: Vancomycin HCl 1,250 MG in 0.9% Normal Saline (250mL Bag) 250 ML 167 MG IV (13:03)
[2023-07-22 14:44] VITALS: BP 164/74; PULSE 81; RESP 16; TEMP 35.9; O2SAT 97
== END 2023-07-22 12:44 | disposition home or self-care (01) ==
LOC: MEDOUTP 12:43
PROVIDERS: PCP Preventive Medicine Occupational Medicine; Referring Provider Internal Medicine Infectious Disease; Visit Provider Internal Medicine Infectious Disease
DX: R78.81 Bacteremia (principal); B95.62 Methicillin resistant Staphylococcus aureus infection as the cause of diseases classified elsewhere; L08.89 Other specified local infections of the skin and subcutaneous tissue
CPT/HCPCS: 96365; 96366; J7050; A4216

== ENCOUNTER 2023-07-23 12:33 | Outpatient (CLI) | payer MEDICARE, SELFPAY ==
[2023-07-23] MEDS: 0.9% NaCl PICC Flush IV ×2 (12:41→14:31)
[2023-07-23] MEDS: Vancomycin HCl 1,250 MG in 0.9% Normal Saline (250mL Bag) 250 ML 167 MG IV (12:41)
[2023-07-23 12:45] VITALS: BP 127/73; PULSE 94; RESP 16; TEMP 36.3; O2SAT 98
[2023-07-23 14:35] VITALS: BP 156/94; PULSE 91; RESP 16; TEMP 36.1; O2SAT 97
== END 2023-07-23 12:34 | disposition home or self-care (01) ==
LOC: MEDOUTP 12:33
PROVIDERS: PCP Preventive Medicine Occupational Medicine; Referring Provider Internal Medicine Infectious Disease; Visit Provider Internal Medicine Infectious Disease
DX: R78.81 Bacteremia (principal); M46.26 Osteomyelitis of vertebra, lumbar region; B95.62 Methicillin resistant Staphylococcus aureus infection as the cause of diseases classified elsewhere
CPT/HCPCS: 96365; 96366; J7050; A4216

== ENCOUNTER 2023-07-24 13:04 | Outpatient (CLI) | payer MEDICARE, SELFPAY ==
--- NOTE | 2023-07-24 13:08 | NURSING ---
Pt arrived to PCU at this time.
[2023-07-24] MEDS: 0.9% NaCl PICC Flush IV (13:10)
[2023-07-24] MEDS: Vancomycin HCl 1,250 MG in 0.9% Normal Saline (250mL Bag) 250 ML 167 MG IV (13:10)
[2023-07-24] MEDS: 0.9% NaCl IVPB Med Flush (250 mL) 15 ML IV (13:10)
--- NOTE | 2023-07-24 15:25 | NURSING ---
Pt infusion complete and pt leaving unit at this time.
== END 2023-07-24 15:24 | disposition home or self-care (01) ==
LOC: MEDOUTP 13:04 → PCU 13:05
PROVIDERS: PCP Preventive Medicine Occupational Medicine; Referring Provider Internal Medicine Infectious Disease; Visit Provider Internal Medicine Infectious Disease
DX: R78.81 Bacteremia (principal); M46.26 Osteomyelitis of vertebra, lumbar region; B95.62 Methicillin resistant Staphylococcus aureus infection as the cause of diseases classified elsewhere
CPT/HCPCS: 96365; 96366; J7050; A4216

== ENCOUNTER 2023-07-25 13:01 | Outpatient (CLI) | payer MEDICARE, SELFPAY ==
[2023-07-25] MEDS: Vancomycin HCl 1,250 MG in 0.9% Normal Saline (250mL Bag) 250 ML 167 MG IV (13:20)
== END 2023-07-25 15:15 | disposition home or self-care (01) ==
LOC: MEDOUTP 13:01 → PCU 13:02
PROVIDERS: PCP Preventive Medicine Occupational Medicine; Referring Provider Internal Medicine Infectious Disease; Visit Provider Internal Medicine Infectious Disease
DX: R78.81 Bacteremia (principal); M46.26 Osteomyelitis of vertebra, lumbar region; B95.62 Methicillin resistant Staphylococcus aureus infection as the cause of diseases classified elsewhere
CPT/HCPCS: 96365; 96366; J7050

== ENCOUNTER 2023-07-26 12:32 | Outpatient (CLI) | payer MEDICARE, SELFPAY ==
[2023-07-26] MEDS: 0.9% NaCl Peripheral Flush Adult/Peds IV (13:18)
[2023-07-26] MEDS: Vancomycin HCl 1,250 MG in 0.9% Normal Saline (250mL Bag) 250 ML 167 MG IV (13:19)
[2023-07-26 13:20] VITALS: BP 141/79; PULSE 87; RESP 16; TEMP 36.3; O2SAT 98
[2023-07-26 15:10] VITALS: BP 154/70; PULSE 100; RESP 16; TEMP 36.3; O2SAT 100
== END 2023-07-26 12:33 | disposition home or self-care (01) ==
LOC: MEDOUTP 12:32
PROVIDERS: PCP Preventive Medicine Occupational Medicine; Referring Provider Internal Medicine Infectious Disease; Visit Provider Internal Medicine Infectious Disease
DX: R78.81 Bacteremia (principal); M46.26 Osteomyelitis of vertebra, lumbar region; B95.62 Methicillin resistant Staphylococcus aureus infection as the cause of diseases classified elsewhere
CPT/HCPCS: 96365; 96366; J7050; A4216

== ENCOUNTER 2023-07-27 11:43 | Outpatient (CLI) | payer MEDICARE, SELFPAY ==
[2023-07-27] MEDS: Vancomycin HCl 1,250 MG in 0.9% Normal Saline (250mL Bag) 250 ML 167 MG IV (12:11)
[2023-07-27] MEDS: 0.9% NaCl PICC Flush IV ×2 (12:12→13:56)
[2023-07-27 12:15] VITALS: BP 129/76; PULSE 82; RESP 16; TEMP 36.6; O2SAT 98
[2023-07-27 12:37] LABS: Erythrocyte Sedimentation Rate 23 mm/hr (0-30)
[2023-07-27 12:48] LABS: Anion Gap 3 (5-15); BUN 19 mg/dL (7-18); BUN/Creat Ratio 21.7 RATIO (10-20); Calcium,Total 9.8 mg/dL (8.5-10.1); Chloride 109 mmol/L (98-107); Creatinine, Serum 0.88 mg/dL (0.55-1.02); EST Glomerular Filtration Rate 66 mL/min (>60); Est Glom Filt Rate - Afr Amer 80 mL/min (>60); Glucose 113 mg/dL (74-106); Potassium 3.9 mmol/L (3.5-5.1); Sodium Level 139 mmol/L (136-145)
[2023-07-27 13:06] LABS: Hematocrit 33.6 % (37-47); Hemoglobin 10.1 g/dL (12.0-15.0); Mean Corp Hgb Conc 30.1 g/dL (32-36); Mean Corpuscular Volume 79.8 fL (81-99); Mean Platelet Vol. 9.3 fl (6.2-12.0); Platelet Count 347 K/mm3 (150-450); RBC Distribution Width CV 15.9 % (11.6-14.6); RBC Distribution Width SD 45.4 fl (35.1-43.9); Red Blood Count 4.21 M/mm3 (4.2-5.4); White Blood Count 10.1 K/mm3 (4.4-11.0)
[2023-07-27 13:10] LABS: Vancomycin, Trough Level 21.1 ug/mL (5.0-15.0)
[2023-07-27 14:01] VITALS: BP 141/66; PULSE 84; RESP 16; TEMP 36.1; O2SAT 100
== END 2023-07-27 11:44 | disposition home or self-care (01) ==
LOC: MEDOUTP 11:43
PROVIDERS: PCP Preventive Medicine Occupational Medicine; Referring Provider Internal Medicine Infectious Disease; Visit Provider Internal Medicine Infectious Disease
DX: M46.36 Infection of intervertebral disc (pyogenic), lumbar region (principal); R78.81 Bacteremia; B95.62 Methicillin resistant Staphylococcus aureus infection as the cause of diseases classified elsewhere
CPT/HCPCS: 96365; 96366; 80048; 80202; 85027; 85652; J7050; A4216

== ENCOUNTER 2023-07-28 12:53 | Outpatient (CLI) | payer MEDICARE, SELFPAY ==
[2023-07-28] MEDS: Vancomycin HCl 1,250 MG in 0.9% Normal Saline (250mL Bag) 250 ML 167 MG IV (13:05)
[2023-07-28 13:08] VITALS: BP 160/84; PULSE 90; RESP 16; TEMP 36.2; O2SAT 97
[2023-07-28 14:54] VITALS: BP 140/76; PULSE 88; RESP 16; TEMP 36; O2SAT 97
== END 2023-07-28 12:54 | disposition home or self-care (01) ==
LOC: MEDOUTP 12:54
PROVIDERS: PCP Preventive Medicine Occupational Medicine; Referring Provider Internal Medicine Infectious Disease; Visit Provider Internal Medicine Infectious Disease
DX: M46.36 Infection of intervertebral disc (pyogenic), lumbar region (principal); R78.81 Bacteremia; B95.62 Methicillin resistant Staphylococcus aureus infection as the cause of diseases classified elsewhere
CPT/HCPCS: 96365; 96366; J7050; A4216

== ENCOUNTER 2023-07-29 11:45 | Outpatient (CLI) | payer MEDICARE, SELFPAY ==
[2023-07-29] MEDS: Vancomycin HCl 1,250 MG in 0.9% Normal Saline (250mL Bag) 250 ML 167 MG IV (12:35)
[2023-07-29 12:36] VITALS: RESP 16; TEMP 35.7
[2023-07-29 15:20] VITALS: BP 133/75; PULSE 88; RESP 16; TEMP 36; O2SAT 97
== END 2023-07-29 11:46 | disposition home or self-care (01) ==
LOC: MEDOUTP 11:46
PROVIDERS: PCP Preventive Medicine Occupational Medicine; Referring Provider Internal Medicine Infectious Disease; Visit Provider Internal Medicine Infectious Disease
DX: G04.91 Myelitis, unspecified (principal); B95.62 Methicillin resistant Staphylococcus aureus infection as the cause of diseases classified elsewhere
CPT/HCPCS: 96365; 96366; J7050; A4216

== ENCOUNTER 2024-01-26 13:00 | Outpatient (RCR) | payer MEDICARE, SELFPAY ==
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
--- NOTE | 2023-11-24 11:45 | HP.PTREVAL ---
Re-Evaluation Intro: DYLAN AMBROSIO, It has been my pleasure to treat JANNY HAMMER over the last 15 visits for Arthodesis L4-S1. Please see the progress note below for an update on the physical therapy plan of care! Subjective Subjective: Pt walks a little at home with a walker to the bathroom and to kitchen table. Pt is saying more than initial eval Objective Objective/Function: Gait: Pt walks with a rolling walker with short stride (kathi with the R leg) and decreased step through on the R. She takes a few steps and stops and looks around. She has trouble turning the walker and not able to picking machine operator helper the walker to turn it. She has a flexed trunk with gait and with standing. She does not have good awareness of where the chair is behind her when she is going to sit down. She is able to stand for 10 seconds without UE support but IS VERY UNCOMFORTABLE with this and reaches for therapist of walker or // bar. She is able to kick a ball standing with max B UE assist on the // bars. Pt does not back up well to a chair.... does not move her feet backwards to back up to the chair. Plan Plan Plan: Standing Balance with a Quad cane (static and dynamic), wall stretches with ball overhead, kicking a ball starting with 1 hand on the // bar, working on picking up the walker to be able to turn it to change direction, backing up into a chair and reaching back with both hands to sit. Pt's daughter Renée Ross ([phone]) 2X/ week for additional 12 weeks for gait training, static and dynamic standing balance, LE strength, functional activities with HEP Balance/Gait/Functional tests Balance/Special Test Scores Lower Extremity Functional Score: 12 Goals Goals Goal 1:: I HEP Goal Time Frame: 12-16 Weeks Goal 2:: Be able to walk 150 feet with rolling walk with decent stride length and increase R foot advancement Goal Time Frame: 8-12 Weeks Goal Progress: Progressing Goal 3:: Be able to sit to stand out of a chair without UE support Goal Time Frame: 8-12 Weeks Goal Progress: Progressing Goal 4:: Be able to stand unsupported for 1 minute Goal Time Frame: 8-12 Weeks Goal 5:: Be able to stand for 1 minute with a Quad cane doing a dynamic activity Goal Time Frame: 8-12 Weeks Anticipated Interventions Anticipated Interventions Patient/Client Instruction: Educate patient on: Condition and Plan of Care For the Purpose of:: To improve nutrient delivery to tissue, To improve muscle performance and motor function, To improve ability to perform ADL's, To increase tolerance to activity/condition/position, To improve performance and independence with ADL's, To decrease level of supervision to perform tasks, To improve ability of physical actions for home/community/work/leisure, To improve gait and locomotor functions, To improve balance, To improve safety with gait and To assume or resume ADL's Therapeutic Exercise to Include: Strength training, Endurance training, Balance training, Body mechanics, Postural training, Flexibilty training, Gait and locomotor training, Neuromotor development, Active ROM and Dynamic Lumbar Stabilization For the Purpose of:: To decrease pain, To decrease swelling/inflammation, To increase ROM, To improve nutrient delivery to tissue, To improve muscle performance and motor function, To improve ability to perform ADL's, To increase tolerance to activity/condition/position, To improve performance and independence with ADL's, To improve gait and locomotor functions, To improve health of tissue, To decrease soft tissue restriction, To increase flexibility/ROM and To improve endurance Functional Training to Include: Gait training For the Purpose of:: To improve gait and locomotor functions and To improve safety with gait Manual Therapy Techniques to Include: Passive ROM For the Purpose of:: To increase ROM and To improve muscle performance and motor function Re-Evaluation Ending Re-evaluation ending: Please do not hesitate to contact me at [phone] by phone or if you have questions or concerns regarding this new plan of care! Sincerely, RIYA Robles
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
--- NOTE | 2024-01-17 15:49 | HP.PTREVAL ---
Re-Evaluation Intro: DYLAN AMBROSIO, It has been my pleasure to treat JANNY HAMMER over the last 17 visits for Arthodesis L4-S1. Please see the progress note below for an update on the physical therapy plan of care! Subjective Subjective: Pt is here with caregiver. Pt hard to warm up Objective Objective/Function: Pt would not let go of therapist today to see if standing Indep has improved She needs verbal cues to step R leg past the stance L leg with gait with the walker. And to stand upright...she likes to look down at the floor. After walking approx 75 feet she staid her arms were getting tired with rolling walker and gait belt and verbal cues. Sit to stand: Pt still likes to hold onto both chair rails with retro balance Plan Plan Plan: Standing Balance with a Quad cane (static and dynamic), wall stretches with ball overhead, kicking a ball starting with 1 hand on the // bar, working on picking up the walker to be able to turn it to change direction, backing up into a chair and reaching back with both hands to sit. Pt's daughter Renée Ross ([phone]) 2X/ week for additional 12 weeks for gait training, static and dynamic standing balance, LE strength, functional activities with HE Balance/Gait/Functional tests Balance/Special Test Scores Lower Extremity Functional Score: 12 Goals Goals Goal 1:: I HEP Goal Time Frame: 12-16 Weeks Goal 2:: Be able to walk 150 feet with rolling walk with decent stride length and increase R foot advancement Goal Time Frame: 8-12 Weeks Goal Progress: Progressing Goal 3:: Be able to sit to stand out of a chair without UE support Goal Time Frame: 8-12 Weeks Goal Progress: Progressing Goal 4:: Be able to stand unsupported for 1 minute Goal Time Frame: 8-12 Weeks Goal 5:: Be able to stand for 1 minute with a Quad cane doing a dynamic activity Goal Time Frame: 8-12 Weeks Anticipated Interventions Anticipated Interventions Patient/Client Instruction: Educate patient on: Condition and Plan of Care For the Purpose of:: To improve nutrient delivery to tissue, To improve muscle performance and motor function, To improve ability to perform ADL's, To increase tolerance to activity/condition/position, To improve performance and independence with ADL's, To decrease level of supervision to perform tasks, To improve ability of physical actions for home/community/work/leisure, To improve gait and locomotor functions, To improve balance, To improve safety with gait and To assume or resume ADL's Therapeutic Exercise to Include: Strength training, Endurance training, Balance training, Body mechanics, Postural training, Flexibilty training, Gait and locomotor training, Neuromotor development, Active ROM and Dynamic Lumbar Stabilization For the Purpose of:: To decrease pain, To decrease swelling/inflammation, To increase ROM, To improve nutrient delivery to tissue, To improve muscle performance and motor function, To improve ability to perform ADL's, To increase tolerance to activity/condition/position, To improve performance and independence with ADL's, To improve gait and locomotor functions, To improve health of tissue, To decrease soft tissue restriction, To increase flexibility/ROM and To improve endurance Functional Training to Include: Gait training For the Purpose of:: To improve gait and locomotor functions and To improve safety with gait Manual Therapy Techniques to Include: Passive ROM For the Purpose of:: To increase ROM and To improve muscle performance and motor function Re-Evaluation Ending Re-evaluation ending: Please do not hesitate to contact me at [phone] by phone or if you have questions or concerns regarding this new plan of care! Sincerely, RIYA Robles
--- NOTE | 2024-01-31 13:13 | HP.PT.NRP ---
Patient Information Patient Information: JANNY HAMMER was seen in my office for initial evaluation on 08/27/23. The following Plan of Care was established for this patient: POC Established Initial Frequency: 2x /Week Initial Duration: 3 Months Anticipated Interventions Patient/Client Instruction: Educate patient on: Condition and Plan of Care For the Purpose of:: To improve nutrient delivery to tissue, To improve muscle performance and motor function, To improve ability to perform ADL's, To increase tolerance to activity/condition/position, To improve performance and independence with ADL's, To decrease level of supervision to perform tasks, To improve ability of physical actions for home/community/work/leisure, To improve gait and locomotor functions, To improve balance, To improve safety with gait and To assume or resume ADL's Therapeutic Exercise to Include: Strength training, Endurance training, Balance training, Body mechanics, Postural training, Flexibilty training, Gait and locomotor training, Neuromotor development, Active ROM and Dynamic Lumbar Stabilization For the Purpose of:: To decrease pain, To decrease swelling/inflammation, To increase ROM, To improve nutrient delivery to tissue, To improve muscle performance and motor function, To improve ability to perform ADL's, To increase tolerance to activity/condition/position, To improve performance and independence with ADL's, To improve gait and locomotor functions, To improve health of tissue, To decrease soft tissue restriction, To increase flexibility/ROM and To improve endurance Functional Training to Include: Gait training For the Purpose of:: To improve gait and locomotor functions and To improve safety with gait Manual Therapy Techniques to Include: Passive ROM For the Purpose of:: To increase ROM and To improve muscle performance and motor function Last Seen Last Seen: This patient was last seen in our office 01/26/24. Pertinent comments regarding their Physical therapy will appear below: TYRESE PT. Pt was in hospital. At this point I will be discontinuing this patient from physical therapy. I would be happy to see this patient again in the future if found appropriate by the physician. Thank you! Kenzie Hutchison, RIYA Balance/Gait/Functional tests Balance/Special Test Scores Lower Extremity Functional Score: 12
--- NOTE | 2024-02-08 10:11 | HP.SP.DC ---
ST Discharge Summary Discharged: Discharge: Zoila Webster is discharged from [facility] speech therapy as of January 31, 2024 as she had a hospital admission and will be receiving home health services. She was evaluated on 09/03/23 with a diagnosis of TBI. Therapy was recommended 2x per week but was not completed consistently due to patient illness and transportation issues. She completed a total of 16 visits until in which she was taken to the hospital after ST/PT. Noted that she had been having decreased skills for the last month but was unable to participate that day for almost any activity. Goals addressed answer yes/no question, answer basic orientation/personal information questions, 1 step directions, automatic speech sequence tasks with minimal to no progress. It seemed during the month of December that patient was decreasing in skills and recommended to critical care nurse practitioner present to discuss with to contact physician. Please see notes and reports for complete details. She is discharged as of 01/31/24. Thank you for allowing me to participate in the care of this patient.
== END 2024-01-26 19:00 | disposition home or self-care (01) ==
LOC: PT 13:00
PROVIDERS: PCP Preventive Medicine Occupational Medicine
DX: Z98.1 Arthrodesis status (principal); Z87.820 Personal history of traumatic brain injury; F80.2 Mixed receptive-expressive language disorder
CPT/HCPCS: 92507; 92523; 97110; 97116; 97163; 97530

== ENCOUNTER 2024-01-26 14:56 | Emergency (ER) | payer MEDICARE, SELFPAY ==
[2024-01-26 14:57] VITALS: BP 117/76; PULSE 90; RESP 16; TEMP 36.8; O2SAT 99
[2024-01-26 16:09] LABS: Absolute Neutrophil Count 12.8 X10^3/uL (2.0-7.7); Basophil# 0.05 X10^3/uL; Basophil% 0.3 % (0-1); Eosinophils% 0.6 % (0-5); Hematocrit 39.7 % (37-47); Hemoglobin 13.6 g/dL (12.0-15.0); Lymphocyte % 15.9 % (19-41); Mean Corp Hgb Conc 34.3 g/dL (32-36); Mean Corpuscular Hgb 28.4 pg (27.0-32.0); Mean Corpuscular Volume 82.9 fL (81-99); Mean Platelet Vol. 8.9 fl (6.2-12.0); Monocyte# 1.25 X10^3/uL; Monocyte% 7.4 % (0-10); NRBC Flagged by Analyzer 0 % (0-5); Neutrophil # 12.79 X10^3/uL (2.7-7.7); Neutrophil % 75.3 % (47-70); Platelet Count 334 K/mm3 (150-450); RBC Distribution Width CV 12.8 % (11.6-14.6); RBC Distribution Width SD 38.7 fl (35.1-43.9); Red Blood Count 4.79 M/mm3 (4.2-5.4)
[2024-01-26 16:12] LABS: Anion Gap 8 (5-15); BUN 18 mg/dL (7-18); BUN/Creat Ratio 21.7 RATIO (10-20); Calcium,Total 10.5 mg/dL (8.5-10.1); Chloride 107 mmol/L (98-107); Creatinine, Serum 0.83 mg/dL (0.55-1.02); EST Glomerular Filtration Rate 70 mL/min (>60); Est Glom Filt Rate - Afr Amer 85 mL/min (>60); Glucose 108 mg/dL (74-106); Sodium Level 136 mmol/L (136-145); Troponin-I HS 6 pg/mL (3.0-54.0)
[2024-01-26 16:48] LABS: Mucous, Urine 0 SEEN /hpf (<or=2+); Red Blood Cells-Urine 0 SEEN /hpf (0-5); Squamous Epithelial Cells - UA 0 SEEN /hpf (5-10)
[2024-01-26 16:54] LABS: Color, Urine Yellow (Yellow); Glucose, Dipstick Normal (Normal); Ketone-Dipstick Negative (Negative); Leukocyte Esterase-Dipstick 500 /ul (Negative); Nitrite-Dipstick Positive (Negative); Occult Blood-Urine 150 /ul (Negative); Protein-Dipstick 100 mg/dl (Negative); Urine Bilirubin Dipstick Negative (Negative); Urine Clarity Cloudy (Clear); Urine Urobilinogen Normal (Normal)
[2024-01-26 16:56] VITALS: BP 124/81; PULSE 89
[2024-01-26 17:25] LABS: Bacteria 4+ /hpf (None Seen); White Blood Cells >100 SEEN /hpf (0-5)
[2024-01-26 17:34] VITALS: BMI 22.0
[2024-01-26 18:00] VITALS: BP 118/75; PULSE 78
[2024-01-26] MEDS: levoFLOXacin IV 750 MG/150 ML BAG 100 MG IV (18:05)
[2024-01-26 18:34] LABS: Lactic Acid 1.1 mmol/L (0.4-1.9)
[2024-01-26 20:00] VITALS: BP 107/72; PULSE 92; RESP 18; O2SAT 97
[2024-01-26 22:00] VITALS: BP 119/65; PULSE 86; RESP 18; O2SAT 97
[2024-01-26] MEDS: Vancomycin HCl 1,250 MG in 0.9% Normal Saline (250mL Bag) 250 ML 167 MG IV (22:37)
[2024-01-27] VITALS: BP 102/76; PULSE 76; RESP 18; O2SAT 97
[2024-01-27 00:03] VITALS: BP 102/46; PULSE 76; RESP 18; TEMP 36.9; O2SAT 97
[2024-01-27 02:00] VITALS: BP 119/58; PULSE 82; RESP 18; O2SAT 98
== END 2024-01-27 02:27 | disposition short-term general hospital (02) ==
LOC: ED 18:12 → PCU 22:04
PROVIDERS: Emergency Provider Emergency Medicine; PCP Preventive Medicine Occupational Medicine; Visit Provider Emergency Medicine
DX: M46.26 Osteomyelitis of vertebra, lumbar region (principal); N39.0 Urinary tract infection, site not specified
CPT/HCPCS: 70450; 71045; 72131; 72158; 80048; 81001; 83605; 84484; 85025; 87040; 87077; 87086; 87088; 87186; 93005; 96365; 96366; 96367; 99285; A9579; J7050; P9612; A4216

== ENCOUNTER 2024-03-18 18:07 | Inpatient (IN) | payer MEDICARE, SELFPAY ==
[2024-03-18 18:13] VITALS: BP 144/100; PULSE 128; RESP 18; TEMP 36.6; O2SAT 100
--- NOTE | 2024-03-18 18:35 | RAD_ITS ---
EXAM: XR RIGHT KNEE, 1 OR 2 VIEWS CLINICAL INDICATION: PAIN TECHNIQUE: Frontal and/or lateral views of the right knee. COMPARISON: No relevant prior studies available. FINDINGS: BONES/JOINTS: AP and lateral views of the right knee demonstrate narrowing of the medial knee joint compartment and articular cartilage calcification. No acute abnormality. Lateral view of the knee recommended to evaluate for joint effusion. SOFT TISSUES: Normal. No soft tissue swelling or gas. No radiopaque foreign body. RAD/Knee 1 or 2 Views IMPRESSION: DJD. As above. Electronically Signed: Serge Hastings MD at 11:59 EST ,
[2024-03-18 18:44] VITALS: BP 140/97; PULSE 132; RESP 18; TEMP 36.9; O2SAT 99
[2024-03-18 19:02] LABS: Absolute Lymphocyte Count 2.69 X10^3/uL (0.83-4.51); Basophil# 0.05 X10^3/uL; Basophil% 0.3 % (0-1); Eosinophil# 0.02 X10^3/uL; Eosinophils% 0.1 % (0-5); Hematocrit 42.2 % (37-47); Hemoglobin 14.2 g/dL (12.0-15.0); Lymphocyte # 2.69 X10^3/ul (0.83-4.51); Lymphocyte % 14.6 % (19-41); Mean Corp Hgb Conc 33.6 g/dL (32-36); Mean Corpuscular Hgb 27.6 pg (27.0-32.0); Mean Corpuscular Volume 81.9 fL (81-99); Mean Platelet Vol. 8.9 fl (6.2-12.0); Monocyte# 1.57 X10^3/uL; Monocyte% 8.5 % (0-10); NRBC Flagged by Analyzer 0 % (0-5); Neutrophil # 13.98 X10^3/uL (2.7-7.7); Neutrophil % 76.1 % (47-70); POSITIVE DIFFERENTIAL YES; Platelet Count 327 K/mm3 (150-450); RBC Distribution Width CV 12.7 % (11.6-14.6); RBC Distribution Width SD 37.8 fl (35.1-43.9); Red Blood Count 5.15 M/mm3 (4.2-5.4); White Blood Count 18.4 K/mm3 (4.4-11.0)
[2024-03-18 19:06] LABS: Differential Indicated SCAN CRITERIA MET
[2024-03-18 19:22] LABS: ALB/GLOB Ratio 0.8 RATIO (0.9-2.4); AST(SGOT) 15 U/L (15-37); Alanine Aminotransfer ALT/SGPT 12 U/L (13-56); Albumin, Serum 3.6 g/dL (3.2-5.0); Alkaline Phosphatase 67 U/L (45-117); Anion Gap 6 (5-15); BUN 15 mg/dL (7-18); BUN/Creat Ratio 20.5 RATIO (10-20); Calcium,Total 10.7 mg/dL (8.5-10.1); Chloride 105 mmol/L (98-107); Creatinine, Serum 0.73 mg/dL (0.55-1.02); EST Glomerular Filtration Rate 81 mL/min (>60); Est Glom Filt Rate - Afr Amer 98 mL/min (>60); Globulin 4.5 g/dL (2.2-4.2); Glucose 123 mg/dL (74-106); Potassium 4.1 mmol/L (3.5-5.1); Protein, Total 8.1 g/dL (6.4-8.2); Sodium Level 137 mmol/L (136-145)
[2024-03-18 19:39] LABS: Anisocytosis RARE; Microcytosis RARE; Ovalocyte RARE; Platelet Estimate ADEQUATE (ADEQ); Red Cell Morphology N CHROM NORMAL (NORM C&C)
[2024-03-18 19:44] LABS: Lactic Acid 1.3 mmol/L (0.4-1.9)
--- NOTE | 2024-03-18 20:40 | CT_ITS ---
INDICATION: abd pain, hx of lumbar osteomyelitis EXAMINATION: CT ABDOMEN AND PELVIS WITH CONTRAST - CT Abdomen And Pelvis W/ Contrast Injection TECHNIQUE: Helically acquired images were obtained of the abdomen and pelvis following IV contrast. A radiation dose optimization technique was used for this scan. IV Contrast dosage and agent: 75 cc [id number] Oral contrast: None. COMPARISON: None. FINDINGS: LOWER CHEST: Bibasilar dependent changes. Retrocardiac hiatal hernia. LIVER: Small cysts dome of right lobe. No concerning focal mass. GALLBLADDER AND BILIARY TREE: No calcified gallstones. No gallbladder distension or wall edema. No intra- or extrahepatic biliary ductal dilation. PANCREAS: No focal cystic or solid mass. SPLEEN: Normal size without focal cystic or solid mass. ADRENAL GLANDS: No nodules. KIDNEYS AND URETERS: Uniform parenchymal enhancement with small left cortical cysts. No hydronephrosis. PERITONEUM: No ascites or free air. BOWEL: No evidence of acute appendicitis. Diffuse colonic wall thickening with pericolonic stranding, findings most severe in the ascending, descending and rectosigmoid colon. LYMPH NODES: No enlarged mesenteric or retroperitoneal lymph nodes. VESSELS: Aorta is non-dilated. URINARY BLADDER: [Drained by Duarte catheter. REPRODUCTIVE ORGANS: Calcified fibroid uterus. ABDOMINAL WALL: Small fat-containing umbilical hernia. BONES: Lumbar fusion with posterior hardware L4-S1. Chronic appearing wedge deformities T11-T12, L4 and L5. Stable changes at the L5-S1 disc space consistent with prior discitis. No acute or aggressive abnormalities. CT/Abdomen/Pelvis W IV Cont ONLY IMPRESSION: Diffuse colitis most severe in the ascending, descending and rectosigmoid colon. Electronically Signed: Lobito Martinez MD at 23:06 EST ,
[2024-03-18 20:48] LABS: Mucous, Urine 0 SEEN /hpf (<or=2+)
[2024-03-18 20:51] LABS: Color, Urine Yellow (Yellow); Glucose, Dipstick Normal (Normal); Ketone-Dipstick 5 mg/dl (Negative); Leukocyte Esterase-Dipstick 500 /ul (Negative); Nitrite-Dipstick Positive (Negative); Occult Blood-Urine 50 /ul (Negative); Protein-Dipstick 30 mg/dl (Negative); Urine Bilirubin Dipstick Negative (Negative); Urine Clarity Cloudy (Clear); Urine Urobilinogen Normal (Normal)
[2024-03-18 21:12] VITALS: BP 123/76; PULSE 95; RESP 16; O2SAT 97
[2024-03-18 21:18] LABS: Bacteria 4+ /hpf (None Seen); Squamous Epithelial Cells - UA 0-5 SEEN /hpf (5-10)
[2024-03-18 21:19] LABS: Red Blood Cells-Urine 5-10 SEEN /hpf (0-5)
[2024-03-18 21:21] LABS: White Blood Cells 25-50 SEEN /hpf (0-5)
[2024-03-18 21:25] LABS: Erythrocyte Sedimentation Rate 14 mm/hr (0-30)
--- NOTE | 2024-03-18 21:25 | RAD_ITS ---
INDICATION: weakness EXAMINATION/TECHNIQUE: X-RAY - portable upright AP chest x-ray COMPARISON: 01/26/2024 FINDINGS: LINES/DEVICES: None. LUNGS: No consolidation, edema or effusion. No pneumothorax. MEDIASTINUM AND CARDIOVASCULAR STRUCTURES: Stable cardiomegaly. BONES AND SOFT TISSUES: No acute changes. Stable chronic left posterior lateral rib deformities. RAD/Chest 1 View (Portable) IMPRESSION: Cardiomegaly without radiographic evidence of acute cardiopulmonary disease. Electronically Signed: Lobito Martinez MD at 22:07 EST ,
[2024-03-18] MEDS: 0.9% Normal Saline (1000mL) 1,000 ML 999 ML IV (21:37)
[2024-03-18 21:38] VITALS: BP 126/60; PULSE 93; RESP 22; TEMP 37.6; O2SAT 98; BMI 25.3
[2024-03-18 22:00] VITALS: BP 119/64; PULSE 85; RESP 16; TEMP 37.5; O2SAT 96
[2024-03-18 23:00] VITALS: BP 120/63; PULSE 88; RESP 16; TEMP 37.5; O2SAT 96
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
[2024-03-18] MEDS: metroNIDAZOLE 500 MG/100 ML BAG 100 MG IV (23:41)
[2024-03-19] VITALS (18 sets, daily range): BP systolic 99–145; BP diastolic 56–94; PULSE 68–95; RESP 15–22; TEMP 37–37.6; O2SAT 94–100; BMI 24.4
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
[2024-03-19] MEDS: Cefepime HCl 1 GM in 0.9% Normal Saline (50mL MB+) 50 ML IV ×2 (00:58→10:25)
[2024-03-19] MEDS: metroNIDAZOLE 500 MG/100 ML BAG 100 MG IV (05:44)
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
[2024-03-19] MEDS: Acetaminophen 325 MG Tablet 650 MG PO (08:52)
[2024-03-19] MEDS: Lactobacillis Acidophilus 1 CAP PO ×4 (08:52→21:52)
[2024-03-19] MEDS: Heparin Injection (Vial) 5,000 UNIT/ML VIAL 5000 UNIT SC ×2 (08:57→21:52)
[2024-03-19] MEDS: Pantoprazole Sodium 40 MG in 0.9% Normal Saline (100mL MB+) 100 ML 330 MG IV (09:42)
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
[2024-03-19] MEDS: Ceftriaxone 1 GM/50 ML BAG IV (14:40)
[2024-03-19 18:25] LABS: Absolute Lymphocyte Count 2.73 X10^3/uL (0.83-4.51); Absolute Neutrophil Count 6.5 X10^3/uL (2.0-7.7); Basophil# 0.03 X10^3/uL; Basophil% 0.3 % (0-1); Eosinophil# 0.09 X10^3/uL; Eosinophils% 0.9 % (0-5); Hematocrit 37.5 % (37-47); Hemoglobin 12.4 g/dL (12.0-15.0); Lymphocyte # 2.73 X10^3/ul (0.83-4.51); Lymphocyte % 27.2 % (19-41); Mean Corp Hgb Conc 33.1 g/dL (32-36); Mean Corpuscular Hgb 27.8 pg (27.0-32.0); Mean Corpuscular Volume 84.1 fL (81-99); Mean Platelet Vol. 9.2 fl (6.2-12.0); NRBC Flagged by Analyzer 0 % (0-5); Neutrophil # 6.45 X10^3/uL (2.7-7.7); Neutrophil % 64.2 % (47-70); Platelet Count 287 K/mm3 (150-450); RBC Distribution Width CV 12.8 % (11.6-14.6); Red Blood Count 4.46 M/mm3 (4.2-5.4)
[2024-03-19 18:42] LABS: ALB/GLOB Ratio 0.7 RATIO (0.9-2.4); AST(SGOT) 11 U/L (15-37); Alanine Aminotransfer ALT/SGPT 11 U/L (13-56); Alkaline Phosphatase 53 U/L (45-117); Anion Gap 6 (5-15); BUN 13 mg/dL (7-18); BUN/Creat Ratio 13.8 RATIO (10-20); Calcium,Total 9.6 mg/dL (8.5-10.1); Chloride 109 mmol/L (98-107); Creatinine, Serum 0.94 mg/dL (0.55-1.02); EST Glomerular Filtration Rate 61 mL/min (>60); Est Glom Filt Rate - Afr Amer 74 mL/min (>60); Estimated Creatinine Clearance 34.29 ml/min; Globulin 4.2 g/dL (2.2-4.2); Glucose 150 mg/dL (74-106); Potassium 3.5 mmol/L (3.5-5.1); Protein, Total 7.2 g/dL (6.4-8.2); Sodium Level 138 mmol/L (136-145)
[2024-03-20 02:55] VITALS: BP 133/60; PULSE 77; RESP 15; TEMP 37.3; O2SAT 99
[2024-03-20 04:34] LABS: Absolute Lymphocyte Count 2.65 X10^3/uL (0.83-4.51); Absolute Neutrophil Count 6.5 X10^3/uL (2.0-7.7); Basophil# 0.04 X10^3/uL; Basophil% 0.4 % (0-1); Eosinophil# 0.14 X10^3/uL; Eosinophils% 1.4 % (0-5); Hematocrit 35.2 % (37-47); Hemoglobin 11.8 g/dL (12.0-15.0); Lymphocyte # 2.65 X10^3/ul (0.83-4.51); Lymphocyte % 26.1 % (19-41); Mean Corp Hgb Conc 33.5 g/dL (32-36); Mean Corpuscular Hgb 27.8 pg (27.0-32.0); Mean Corpuscular Volume 82.8 fL (81-99); Mean Platelet Vol. 9.2 fl (6.2-12.0); Monocyte# 0.84 X10^3/uL; Monocyte% 8.3 % (0-10); NRBC Flagged by Analyzer 0 % (0-5); Neutrophil # 6.45 X10^3/uL (2.7-7.7); Neutrophil % 63.4 % (47-70); Platelet Count 289 K/mm3 (150-450); RBC Distribution Width CV 12.7 % (11.6-14.6); RBC Distribution Width SD 38.4 fl (35.1-43.9); Red Blood Count 4.25 M/mm3 (4.2-5.4); White Blood Count 10.2 K/mm3 (4.4-11.0)
[2024-03-20 04:55] VITALS: BMI 25.2
[2024-03-20 05:03] LABS: ALB/GLOB Ratio 0.8 RATIO (0.9-2.4); AST(SGOT) 10 U/L (15-37); Alanine Aminotransfer ALT/SGPT 11 U/L (13-56); Albumin, Serum 3.1 g/dL (3.2-5.0); Alkaline Phosphatase 54 U/L (45-117); Anion Gap 1 (5-15); BUN 10 mg/dL (7-18); Calcium,Total 10.1 mg/dL (8.5-10.1); Chloride 112 mmol/L (98-107); Creatinine, Serum 0.77 mg/dL (0.55-1.02); EST Glomerular Filtration Rate 77 mL/min (>60); Est Glom Filt Rate - Afr Amer 93 mL/min (>60); Estimated Creatinine Clearance 43.58 ml/min; Globulin 3.9 g/dL (2.2-4.2); Glucose 109 mg/dL (74-106); Potassium 3.8 mmol/L (3.5-5.1); Sodium Level 139 mmol/L (136-145)
[2024-03-20] MEDS: Pantoprazole Sodium 40 MG in 0.9% Normal Saline (100mL MB+) 100 ML 330 MG IV (08:59)
[2024-03-20] MEDS: Heparin Injection (Vial) 5,000 UNIT/ML VIAL 5000 UNIT SC ×2 (08:59→20:40)
[2024-03-20] MEDS: 0.9% Saline Lock 10 ML Syringe IV ×2 (08:59→20:36)
[2024-03-20 09:00] VITALS: BP 137/87; PULSE 93; RESP 18; TEMP 36.7; O2SAT 99
[2024-03-20] MEDS: Menthol/Lanolin/Calamine/Znox 113 GM Tube 1 APPLIC TOPICAL ×2 (09:00→20:37)
--- NOTE | 2024-03-20 09:43 | PCM.PN.SRG ---
Subjective Subjective Patient seen and examined during AM rounds. She is found resting comfortably in bed. She denies any abdominal pain. She states that she has tolerated her liquid diet but is hungry. Nursing reports 1 loose bowel movement overnight. Objective Data Objective Data Vital Signs: Vital Signs Temp Pulse Resp BP Pulse Ox O2 Del Method 98.1 F 93 18 137/87 H 99 Room Air 03/20/24 09:00 03/20/24 09:00 03/20/24 09:00 03/20/24 09:00 03/20/24 09:00 03/20/24 09:00 Oxygen Delivery Method Room Air Weight: 120 lb 13.013 oz Body Mass Index (BMI) 25.2 Intake & Output: Intake and Output for Last 24 Hours 03/18/24 03/19/24 03/20/24 23:59 23:59 23:59 Intake Total 1000 / 1000 2009 Output Total 1680 / 1680 150 / 150 Balance 1000 / 1000 330 / 330 -150 / -150 Lab / Micro Data 03/20/24 04:09 03/20/24 04:09 Labs: Laboratory Results - last 24 hr 03/19/24 18:05: WBC 10.0, RBC 4.46, Hgb 12.4, Hct 37.5, MCV 84.1, MCH 27.8, MCHC 33.1, RDW Std Deviation 39.0, RDW Coeff of Felice 12.8, Plt Count 287, MPV 9.2, Immature Gran % (Auto) 0.400, Neut % (Auto) 64.2, Lymph % (Auto) 27.2, [place] % (Auto) 7.0, Eos % (Auto) 0.9, Baso % (Auto) 0.3, Absolute Neuts (auto) 6.5, Absolute Lymphs (auto) 2.73, Nucleated RBC % 0, Sodium 138, Potassium 3.5, Chloride 109 H, Carbon Dioxide 23.0, Anion Gap 6, BUN 13, Creatinine 0.94, Estim Creat Clear Calc 34.29, Est GFR (MDRD) Af Amer 74, Est GFR (MDRD) Non-Af 61, BUN/Creatinine Ratio 13.8, Glucose 150 H, Calcium 9.6, Total Bilirubin 0.30, AST 11 L, ALT 11 L, Alkaline Phosphatase 53, Total Protein 7.2, Albumin 3.0 L, Globulin 4.2, Albumin/Globulin Ratio 0.7 L 03/20/24 04:09: WBC 10.2, RBC 4.25, Hgb 11.8 L, Hct 35.2 L, MCV 82.8, MCH 27.8, MCHC 33.5, RDW Std Deviation 38.4, RDW Coeff of Felice 12.7, Plt Count 289, MPV 9.2, Immature Gran % (Auto) 0.400, Neut % (Auto) 63.4, Lymph % (Auto) 26.1, [place] % (Auto) 8.3, Eos % (Auto) 1.4, Baso % (Auto) 0.4, Absolute Neuts (auto) 6.5, Absolute Lymphs (auto) 2.65, Nucleated RBC % 0, Sodium 139, Potassium 3.8, Chloride 112 H, Carbon Dioxide 26.0, Anion Gap 1 L, BUN 10, Creatinine 0.77, Estim Creat Clear Calc 43.58, Est GFR (MDRD) Af Amer 93, Est GFR (MDRD) Non-Af 77, BUN/Creatinine Ratio 13.0, Glucose 109 H, Calcium 10.1, Total Bilirubin 0.40, AST 10 L, ALT 11 L, Alkaline Phosphatase 54, Total Protein 7.0, Albumin 3.1 L, Globulin 3.9, Albumin/Globulin Ratio 0.8 L Micro: Microbiology 03/18/24 21:10 Stool Stool Lactoferrin - Final 03/18/24 21:10 Stool Enteric Bacteriology - Final 03/18/24 21:10 Stool C. difficile GDH Antigen & Toxins - Final 03/18/24 21:10 Stool Clostridioides difficile (PCR) - Final 03/18/24 21:38 Mucosa - Nose SARS-CoV-2, Influenza & RSV (PCR) - Final Physical Exam Const Constitutional Narrative: Oriented to person Resp normal respiratory effort GI GI Narrative: Nondistended, soft, nontender to palpation x 4 quadrants Assessment & Plan Assessment/Plan (1) Colitis: PLAN: Patient is an 79-year-old female who is admitted for progressive weakness and associated abdominal pain complaints as well as apparent urinary tract infection. CT imaging was suggestive of pancolitis?particularly of the ascending, descending, and rectosigmoid colon. Patient is now hospital day 2 and, once again, her abdominal exam is unremarkable. She appears very comfortable and confirms a strong appetite. It is reported that she has had a loose bowel movement but the remainder of her GI workup to date has been unrevealing apart from some apparent C. difficile colonization?including even a negative stool lactoferrin test. Therefore, I do not believe there is reason to make much more of her colitis concerns at this time and would recommend advancing her diet as tolerated while watching expectantly for any signs of further issue given her limited ability to report issues with her posttraumatic cognitive deficits. Defer to primary team for management of her other infectious concerns. In the absence of any clinical indicators surgery will now sign off but remain available to primary team for any future needs. Thank you for this consultation. Antwon Mcdaniels MD General Surgery Endocrine Surgery Pager: [facility] [address] [place] [address] [address] [place] [address] Office: [phone] Charges/Coding Visit Charges Inpatient E&M: 82187 Subs Hosp L2
[2024-03-20] MEDS: Lactobacillis Acidophilus 1 CAP PO ×4 (09:47→20:40)
[2024-03-20] MEDS: Cefepime HCl 2 GM in 0.9% Normal Saline (100mL MB+) 100 ML IV (09:47)
--- NOTE | 2024-03-20 10:34 | CASEMGMT ---
MICHELA BRYANT Assessment: Face to Face with pt for initial transition planning/care coordination assessment. MICHELA BRYANT introduced self and role at [facility], pt is A&O x1 and unable to answer questions appropriately at this time. MICHELA BRYANT called for DC planning assessment. Care providers, pharmacy, and demographics verified/updated. Strata: 1 Admitting Dx: Acute cycstitis and diffuse collitis. PCP: Carmita Specialists: Denies [facility] Prescription Benefit: yes LNOK: , Jose Luis; Daughter, Renée. Living Arrangements: Pt lives with with a ramp to enter home and Pt lives all on the main level. ADLs: Pt needs assistance. Transportation: Pt has a auto crane driver that the family hires to provide transportation. DME: WC, Hand rails, walker, shower bench. HHC/SNF: Previously at [facility], home with [facility] HHC. Pt states no concerns with going home at time of dc. States they have assistance with family and instrument repairer helper. Denies wanting SNF or HHC for Pt. Pt states no further concerns/needs. CM to follow. Advised pt to ask CM if any further question/concerns/needs arise, voices understanding. Pt Goal: Home Plan: Home, follow therapy for recommendations. Anne ABERNATHY CM
--- NOTE | 2024-03-20 12:48 | PN.HOSP_ITS ---
Reason for Visit Reason for Visit: Diagnoses Enterocolitis due to Clostridium difficile, not specified as recurrent (03/19/24) Sepsis, unspecified organism (03/19/24) Noninfective gastroenteritis and colitis, unspecified (03/19/24) Acute cystitis with hematuria (03/19/24) Personal history of other diseases of the digestive system (03/19/24) Personal history of other diseases of the musculoskeletal system and connective tissue (03/19/24) Personal history of traumatic brain injury (03/19/24) Subjective Subjective Saw patient at bedside this morning. Patient was mildly fatigued appearing but otherwise laying back comfortably in bed in no acute distress. She denied any abdominal pain or discomfort this morning denied any fevers or chills. Denied any pain or discomfort with urination. No other new concerns today. Objective Data Objective Data Vital Signs: Vital Signs Temp Pulse Resp BP Pulse Ox O2 Del Method 98.1 F 93 18 137/87 H 99 Room Air 03/20/24 09:00 03/20/24 09:00 03/20/24 09:00 03/20/24 09:00 03/20/24 09:00 03/20/24 09:00 Oxygen Delivery Method Room Air Weight: 54.8 kg Body Mass Index (BMI) 25.2 Intake & Output: Intake and Output for Last 24 Hours 03/18/24 03/19/24 03/20/24 23:59 23:59 23:59 Intake Total 1000 / 1000 2009 450 / 450 Output Total 1680 / 1680 250 / 250 Balance 1000 / 1000 330 / 330 200 / 200 Lab / Micro Data 03/20/24 04:09 03/20/24 04:09 Labs: Laboratory Results - last 24 hr 03/19/24 18:05: WBC 10.0, RBC 4.46, Hgb 12.4, Hct 37.5, MCV 84.1, MCH 27.8, MCHC 33.1, RDW Std Deviation 39.0, RDW Coeff of Felice 12.8, Plt Count 287, MPV 9.2, Immature Gran % (Auto) 0.400, Neut % (Auto) 64.2, Lymph % (Auto) 27.2, [place] % (Auto) 7.0, Eos % (Auto) 0.9, Baso % (Auto) 0.3, Absolute Neuts (auto) 6.5, Absolute Lymphs (auto) 2.73, Nucleated RBC % 0, Sodium 138, Potassium 3.5, C hloride 109 H, Carbon Dioxide 23.0, Anion Gap 6, BUN 13, Creatinine 0.94, Estim Creat Clear Calc 34.29, Est GFR (MDRD) Af Amer 74, Est GFR (MDRD) Non-Af 61, BUN/Creatinine Ratio 13.8, Glucose 150 H, Calcium 9.6, Total Bilirubin 0.30, AST 11 L, ALT 11 L, Alkaline Phosphatase 53, Total Protein 7.2, Albumin 3.0 L, Globulin 4.2, Albumin/Globulin Ratio 0.7 L 03/20/24 04:09: WBC 10.2, RBC 4.25, Hgb 11.8 L, Hct 35.2 L, MCV 82.8, MCH 27.8, MCHC 33.5, RDW Std Deviation 38.4, RDW Coeff of Felice 12.7, Plt Count 289, MPV 9.2, Immature Gran % (Auto) 0.400, Neut % (Auto) 63.4, Lymph % (Auto) 26.1, [place] % (Auto) 8.3, Eos % (Auto) 1.4, Baso % (Auto) 0.4, Absolute Neuts (auto) 6.5, Absolute Lymphs (auto) 2.65, Nucleated RBC % 0, Sodium 139, Potassium 3.8, C hloride 112 H, Carbon Dioxide 26.0, Anion Gap 1 L, BUN 10, Creatinine 0.77, Estim Creat Clear Calc 43.58, Est GFR (MDRD) Af Amer 93, Est GFR (MDRD) Non-Af 77, BUN/Creatinine Ratio 13.0, Glucose 109 H, Calcium 10.1, Total Bilirubin 0.40, AST 10 L, ALT 11 L, Alkaline Phosphatase 54, Total Protein 7.0, Albumin 3.1 L, Globulin 3.9, Albumin/Globulin Ratio 0.8 L Micro: Microbiology 03/18/24 20:40 Urine, Clean Catch Urine Culture - Preliminary 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 difficile GDH Antigen & Toxins - Final 03/18/24 21:10 Stool Clostridioides difficile (PCR) - Final 03/18/24 21:38 Mucosa - Nose SARS-CoV-2, Influenza & RSV (PCR) - Final Radiography Diagnostic Testing: Radiology Impression Knee X-Ray 03/18/24 18:35 IMPRESSION: DJD. As above. Electronically Signed: Serge Hastings MD at 11:59 EST Reading Location ID and State: [facility] / [place] Tel , Service support , Physical Exam Const alert, oriented x3 and no apparent distress Constitutional Narrative: Elderly female, mildly fatigued appearing, otherwise laying back comfortably in bed, conversing normally and in no acute distress. General Appearance: cooperative and comfortable HEENT normocephalic, head/scalp atraumatic, hearing grossly normal bilaterally, nasal mucous membranes and turbinates normal and moist oral mucous membranes Eyes PERRL, EOMs intact bilaterally and conjunctivae normal Neck full ROM Chest inspection of chest normal Resp normal respiratory effort, normal air movement, no use of accessory muscles and clear to auscultation bilaterally Cardio regular rate, regular rhythm, no murmurs and peripheral pulses 2+ throughout GI normal to inspection, nondistended, normoactive bowel sounds, soft to palpation, non-tender and non-distended Back/Spine normal ROM Extremity normal to inspection, full ROM and no pedal edema Skin no rashes or lesions noted Psych mental status grossly normal Assessment & Plan Assessment/Plan (1) Clostridium difficile colitis: PLAN: Plan Patient is an 79-year-old female who presented [facility] ED on 03/18/2024 with worsening generalized weakness. 1. Suspected C. difficile colitis ? ID and general surgery following. History of MRSA bacteremia with prolonged antibiotic course and suppressive doxycycline as noted below. CT abdomen pelvis on admit showed diffuse colitis most severe in the ascending, descending and rectosigmoid colon. C. difficile antigen positive but toxin negative. Initially treated with cefepime and Flagyl but per ID, highest concern is for C. difficile colitis so switched to p.o. vancomycin on 03/20 and will complete 10 to 14-day course. Advanced to regular diet on 03/03, will monitor to make sure patient tolerates. Will likely be okay for discharge home in the next 1 to 2 days. 2. Concern for UTI ? UA on admit showed 500 leukocyte esterase, positive nitrates, 4+ bacteria. Unclear if patient has been having any symptoms. Urine culture preliminarily positive for gram-negative rods. Last urine culture in early January grew pansensitive Proteus. UA in early January was the same as current UA. Will hold on any further treatment for UTI at this time. 3. Acute on chronic debility ? PT/OT/case management following. Planning for home with home health care on discharge. 4. History of MRSA bacteremia with deep-seeded spinal infection, history of prior TBI with cognitive impairment ? Prior history of MRSA bacteremia with prolonged antibiotic course for this and was then on suppressive doxycycline. Had TBI a little over 1 year ago and has had some degree of cognitive impairment since then. Makes appropriate eye contact on exam but is a poor historian. DVT prophylaxis: Lovenox CODE STATUS: DNR CCA, DNI Expected disposition: Home with home health care, 1 to 2 days Total clinical time spent by myself addressing the patient's medical issues, reviewing all the data, and collaborating with patient's care team: 35 minutes. Charges/Coding Visit Charges Inpatient E&M: 59552 Subs Hosp L2
--- NOTE | 2024-03-20 12:49 | CASEMGMT ---
Addendum entered by Gretchen Dillon 03/20/24 15:29: [facility] called and able to accept Pt. Notify agency when Pt is discharging home. Original Note: MICHELA BRYANT notified Pt in room and would like to speak with MICHELA BRYANT. Into Pt room, Pt wanted additional information about HHC options. Asked if they could get HHC set up through [facility], would like PT, OT and SN. Denied wanting list. MICHELA BRYANT called [facility] and made referral. Waiting on acceptance.
[2024-03-20 15:00] VITALS: BP 124/83; PULSE 97; RESP 19; TEMP 37.6; O2SAT 97
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
[2024-03-20 15:31] LABS: Pathologist Review Reviewed
--- NOTE | 2024-03-20 16:12 | CASEMGMT ---
[facility] called back and unable to accept Pt, stated they are too full and can no longer take her. Printed list of [facility] agencies, called and spoke to Pt . He asked me to leave list on table in Pt room and he will review it and let me know in the morning. Also discussed option of SNF, Pt states she does better at home and he would like for her to come back home. Denies further questions or concerns at this time.
[2024-03-20] MEDS: Vancomycin 125 MG/5 ML Susp PO.SYRINGE PO ×2 (18:16→23:14)
[2024-03-20 20:32] VITALS: BP 155/71; PULSE 91; RESP 21; TEMP 37.3; O2SAT 95
[2024-03-20 22:00] VITALS: PULSE 93
[2024-03-20 23:18] VITALS: BP 139/94; PULSE 80; RESP 19; TEMP 37.3; O2SAT 97
[2024-03-21 02:00] VITALS: PULSE 81
[2024-03-21 05:30] VITALS: BMI 25.0
[2024-03-21] MEDS: Vancomycin 125 MG/5 ML Susp PO.SYRINGE PO ×2 (05:54→11:12)
[2024-03-21 05:57] VITALS: BP 126/60; PULSE 58; RESP 16; TEMP 37.2; O2SAT 94
[2024-03-21 07:52] LABS: Hematocrit 34.7 % (37-47); Hemoglobin 11.8 g/dL (12.0-15.0); Mean Corpuscular Hgb 28.3 pg (27.0-32.0); Mean Corpuscular Volume 83.2 fL (81-99); Mean Platelet Vol. 9.1 fl (6.2-12.0); Platelet Count 296 K/mm3 (150-450); RBC Distribution Width CV 12.7 % (11.6-14.6); RBC Distribution Width SD 38.9 fl (35.1-43.9); Red Blood Count 4.17 M/mm3 (4.2-5.4); White Blood Count 7.3 K/mm3 (4.4-11.0)
[2024-03-21 08:25] LABS: Anion Gap 5 (5-15); BUN 10 mg/dL (7-18); BUN/Creat Ratio 13.2 RATIO (10-20); Chloride 110 mmol/L (98-107); Creatinine, Serum 0.76 mg/dL (0.55-1.02); EST Glomerular Filtration Rate 78 mL/min (>60); Est Glom Filt Rate - Afr Amer 94 mL/min (>60); Estimated Creatinine Clearance 40.29 ml/min; Glucose 98 mg/dL (74-106); Potassium 3.9 mmol/L (3.5-5.1); Sodium Level 140 mmol/L (136-145)
[2024-03-21] MEDS: Lactobacillis Acidophilus 1 CAP PO (09:39)
[2024-03-21] MEDS: Menthol/Lanolin/Calamine/Znox 113 GM Tube 1 APPLIC TOPICAL (09:39)
--- NOTE | 2024-03-21 09:47 | DCINST_ITS ---
Discharge Instructions Diet Discharge Diet: No restrictions DC O2, CPAP, BIPAP needs Home O2 Discharge instructions: No Dressing / Incision Discharge Activity: No Restrictions Follow Up Care Test Results: Test results from this visit will be discussed in further detail at your follow- up appointment, if applicable. Discharge Plan Admission Admit Date/Time: 03/19/24 00:13 Primary Reason for Your Visit: weakness Attending Provider: Manuel Amos Primary Care Provider: Gianni Vizcarra Consulting Providers: Antwon Mcdaniels; Miguel Mensah; Bela Iyer; Gianni Alexander Discharge Orders/Prescriptions Prescriptions: New vancomycin 125 mg capsule 125 mg PO Q6H 13 Days Qty: 52 0RF Referrals / Follow Up: Gianni Vizcarra DO [Primary Care Provider] - Disposition Disposition (needs filled in before D/C Order can be placed): Home Health Service
--- NOTE | 2024-03-21 09:47 | PCM.DC.SUM ---
Providers Date of Admission: 03/19/24 Date of Discharge: 03/21/24 Primary Care Physician: Dr. Gianni Vizcarra, Consultations 03/19/24 01:16 Consult: General Surgery Routine Consulting Provider: Antwon Mcdaniels Reason for Consult: Diffuse Colitis with Sepsis. EMERGENT Consult: No MD Notified: Yes Date Notified: 03/19/24 Time Notified: 01:16 Method of Notification: ED Physician Initiated 03/19/24 13:42 Consult: Infectious Disease Routine Consulting Provider: Gianni Alexander Reason for Consult: UTI, ? cdiff vs colonization, CT w/ colitis notably but no diarrhea. EMERGENT Consult: No MD Notified: Yes Date Notified: 03/19/24 Time Notified: 13:42 Method of Notification: Answering Service Reason For Visit: ACUTE CYSTITIS & DIFFUSE COLITIS Diagnosis Discharge Diagnosis (1) Clostridium difficile colitis: Status: Acute Code(s): A04.72 - Enterocolitis due to Clostridium difficile, not specified as recurrent Medications at Discharge Home Medications vancomycin 125 mg capsule 125 mg PO Q6H 13 days #52 caps 03/21/24 Hospital Course Operations None Procedures - (Knee x-ray, CT abdomen pelvis, chest x-ray) Summary of Care Provided Minutes Spent on Discharge: 35 Hospital Course: Patient is an 79-year-old female who presented [facility] ED on 03/18/2024 with worsening generalized weakness. Hospital course as noted below. Patient discharged home with home health care in stable condition on 03/21. 1. Suspected C. difficile colitis ? ID and general surgery followed. History of MRSA bacteremia with prolonged antibiotic course and suppressive doxycycline as noted below. CT abdomen pelvis on admit showed diffuse colitis most severe in the ascending, descending and rectosigmoid colon. C. difficile antigen positive but toxin negative. Initially treated with cefepime and Flagyl but per ID, highest concern was for C. difficile colitis so switched to p.o. vancomycin on 03/20. Advanced to regular diet on 03/20 and patient tolerating without issue. Stable for discharge home on 03/21 and will treat with 14-day course of p.o. vancomycin, stop date 04/02. 2. Concern for UTI ? UA on admit showed 500 leukocyte esterase, positive nitrates, 4+ bacteria. Unclear if patient has been having any symptoms. Urine culture positive for Klebsiella. Last urine culture in early January grew pansensitive Proteus. UA in early January was the same as current UA. Will hold on any further treatment for UTI. 3. Acute on chronic debility ? PT/OT/case management followed. Stable for discharge home with home health care on 03/21. 4. History of MRSA bacteremia with deep-seeded spinal infection, history of prior TBI with cognitive impairment ? Prior history of MRSA bacteremia with prolonged antibiotic course for this and was then on suppressive doxycycline. Had TBI a little over 1 year ago and has had some degree of cognitive impairment since then. Made appropriate eye contact on exam but is a poor historian. Total clinical time spent by myself addressing the patient's medical issues, reviewing all the data, and collaborating with patient's care team: 35 minutes. Physical Exam Const alert, oriented x3 and no apparent distress Constitutional Narrative: Elderly female, mildly fatigued appearing, otherwise laying back comfortably in bed, conversing normally and in no acute distress. Stable. General Appearance: cooperative and comfortable HEENT normocephalic, head/scalp atraumatic, hearing grossly normal bilaterally, nasal mucous membranes and turbinates normal and moist oral mucous membranes Eyes PERRL, EOMs intact bilaterally and conjunctivae normal Neck full ROM Chest inspection of chest normal Resp normal respiratory effort, normal air movement, no use of accessory muscles and clear to auscultation bilaterally Cardio regular rate, regular rhythm, no murmurs and peripheral pulses 2+ throughout GI normal to inspection, nondistended, normoactive bowel sounds, soft to palpation, non-tender and non-distended Back/Spine normal ROM Extremity normal to inspection, full ROM and no pedal edema Skin no rashes or lesions noted Psych mental status grossly normal Weight / BMI Weight Weight: 54.3 kg Body Mass Index (BMI) 25.0 ABG / Lab / Microbiology Data 03/21/24 07:10 03/21/24 07:10 Laboratory: Laboratory Results - last 24 hr 03/18/24 18:30: Diff Path Review Reviewed 03/21/24 07:10: WBC 7.3, RBC 4.17 L, Hgb 11.8 L, Hct 34.7 L, MCV 83.2, MCH 28.3, MCHC 34.0, RDW Std Deviation 38.9, RDW Coeff of Felice 12.7, Plt Count 296, MPV 9.1, Sodium 140, Potassium 3.9, Chloride 110 H, Carbon Dioxide 25.0, Anion Gap 5, BUN 10, Creatinine 0.76, Estim Creat Clear Calc 40.29, Est GFR (MDRD) Af Amer 94, Est GFR (MDRD) Non-Af 78, BUN/Creatinine Ratio 13.2, Glucose 98, Calcium 10.0 Microbiology: Microbiology 03/18/24 20:50 Blood Culture (Wb) - Right Wrist Blood Culture - Preliminary No growth in 48 hours. 03/18/24 18:30 Blood Culture (Wb) - Left Wrist Blood Culture - Preliminary No growth in 48 hours. 03/18/24 20:40 Urine, Clean Catch Urine Culture - Final Klebsiella pneumoniae sp pneum 03/18/24 21:10 Stool Stool Lactoferrin - Final 03/18/24 21:10 Stool Enteric Bacteriology - Final 03/18/24 21:10 Stool C. difficile GDH Antigen & Toxins - Final 03/18/24 21:10 Stool Clostridioides difficile (PCR) - Final 03/18/24 21:38 Mucosa - Nose SARS-CoV-2, Influenza & RSV (PCR) - Final Radiography Diagnostic Testing: Radiology Impression Knee X-Ray 03/18/24 18:35 IMPRESSION: DJD. As above. Electronically Signed: Serge Hastings MD at 11:59 EST , D/C Instructions DC O2, CPAP, BIPAP Needs Home O2 Discharge instructions: No Meaningful Use Info Meaningful Use Meaningful Use Diagnoses (Choose all that apply): None applicable Ischemic Stroke Statin Dosing Therapy Reference: STATIN DOSE THERAPY REFERENCE: * Patients > 75 years receive moderate or high dose statin therapy. * Patients 75 years or YOUNGER should receive HIGH intensity statin dose unless contraindicated. You will be required to document reason for non-treatment if statin daily dose does not meet guidelines. HIGH DOSE STATIN THERAPY DAILY Atorvastatin > than or = to 40 mg Rosuvastatin > than or = to 20 mg Amlodipine + Atorvastatin > than or = to 2.5/40 mg Ezetimibe + Simvastatin 10/80 mg Simvastatin 80mg Discharge Plan Admission Admit Date/Time: 03/19/24 00:13 Primary Reason for Your Visit: weakness Attending Provider: Manuel Amos Primary Care Provider: Gianni Vizcarra Consulting Providers: Antwon Mcdaniels; Miguel Mensah; Bela Iyer; Gianni Alexander Discharge Orders/Prescriptions Prescriptions: New vancomycin 125 mg capsule 125 mg PO Q6H 13 Days Qty: 52 0RF Referrals / Follow Up: Gianni Vizcarra DO [Primary Care Provider] - Disposition Disposition (needs filled in before D/C Order can be placed): Home Health Service Charges/Coding Visit Charges Inpatient E&M: 15899 Disch Hosp >30min
[2024-03-21 11:12] VITALS: BP 102/78; PULSE 71; RESP 19; TEMP 36.8; O2SAT 94
--- NOTE | 2024-03-21 12:20 | CASEMGMT ---
MICHELA CM into pt room to discuss HHC vs SNF, pt wants to take Pt home with HHC. HHC list was provided yesterday, Pt chose [facility] or [facility] as first choices. Will send referral and see if able to accept.
--- NOTE | 2024-03-21 14:10 | CASEMGMT ---
RN CM noted order for vancomycin, called pharmacy and they do not need a prior auth for this. Cost is $44
--- NOTE | 2024-03-21 14:27 | CASEMGMT ---
[facility] notified able to accept, notified patient and wrote on print out with home going instructions.
== END 2024-03-21 15:05 | disposition home health service (06) | DRG 372 ==
LOC: ED 03-19 00:07 → ICU 03-19 06:54
PROVIDERS: Family Medicine; Admitting Provider Internal Medicine; Emergency Provider Emergency Medicine; PCP Preventive Medicine Occupational Medicine; Visit Provider Hospitalist
DX: A04.72 Enterocolitis due to Clostridium difficile, not specified as recurrent (principal); N30.01 Acute cystitis with hematuria; B96.1 Klebsiella pneumoniae [K. pneumoniae] as the cause of diseases classified elsewhere; Z66 Do not resuscitate; N18.30 Chronic kidney disease, stage 3 unspecified; R53.81 Other malaise; R41.841 Cognitive communication deficit; Z86.14 Personal history of Methicillin resistant Staphylococcus aureus infection; Z87.820 Personal history of traumatic brain injury
CPT/HCPCS: 36415; 51702; 71045; 73560; 74177; 80048; 80053; 81001; 83605; 83630; 84443; 85025; 85027; 85652; 86140; 87040; 87077; 87086; 87088; 87186; 87493; 87506; 87631; 94762; 97116; 97162; 97166; 97530; 97535; 99285; Q9967; A4216

== ENCOUNTER 2024-04-03 11:21 | Observation (INO) | payer MEDICARE, SELFPAY ==
[2024-04-03] VITALS (8 sets, daily range): BP systolic 114–151; BP diastolic 60–110; PULSE 80–96; RESP 14–20; TEMP 36.6–37.7; O2SAT 95–99; BMI 24.6; BMI 23.9
[2024-04-03 12:30] LABS: Absolute Neutrophil Count 10.5 X10^3/uL (2.0-7.7); Basophil# 0.04 X10^3/uL; Basophil% 0.3 % (0-1); Eosinophil# 0.07 X10^3/uL; Eosinophils% 0.5 % (0-5); Hematocrit 42.5 % (37-47); Hemoglobin 13.8 g/dL (12.0-15.0); Lymphocyte % 22.2 % (19-41); Mean Corp Hgb Conc 32.5 g/dL (32-36); Mean Corpuscular Hgb 27.3 pg (27.0-32.0); Mean Platelet Vol. 8.8 fl (6.2-12.0); Monocyte# 1.23 X10^3/uL; NRBC Flagged by Analyzer 0 % (0-5); Neutrophil # 10.52 X10^3/uL (2.7-7.7); Neutrophil % 68.6 % (47-70); Platelet Count 398 K/mm3 (150-450); RBC Distribution Width CV 12.7 % (11.6-14.6); RBC Distribution Width SD 38.9 fl (35.1-43.9); Red Blood Count 5.06 M/mm3 (4.2-5.4); White Blood Count 15.3 K/mm3 (4.4-11.0)
[2024-04-03 12:34] LABS: Bedside Glucose 104 mg/dL (74-106)
[2024-04-03 12:35] LABS: Bacteria 0 SEEN /hpf (None Seen); Squamous Epithelial Cells - UA 0 SEEN /hpf (5-10)
[2024-04-03 12:37] LABS: Color, Urine Yellow (Yellow); Glucose, Dipstick Normal (Normal); Ketone-Dipstick Negative (Negative); Leukocyte Esterase-Dipstick 500 /ul (Negative); Nitrite-Dipstick Negative (Negative); Occult Blood-Urine 50 /ul (Negative); Protein-Dipstick 100 mg/dl (Negative); Urine Bilirubin Dipstick Negative (Negative); Urine Clarity Turbid (Clear); Urine Urobilinogen Normal (Normal)
[2024-04-03 12:54] LABS: White Blood Cells >100 SEEN /hpf (0-5)
[2024-04-03 12:56] LABS: Mucous, Urine 1+ /hpf (<or=2+); Red Blood Cells-Urine 5-10 SEEN /hpf (0-5)
[2024-04-03 12:56] LABS: ALB/GLOB Ratio 0.7 RATIO (0.9-2.4); AST(SGOT) 12 U/L (15-37); Alanine Aminotransfer ALT/SGPT 13 U/L (13-56); Albumin, Serum 3.4 g/dL (3.2-5.0); Alkaline Phosphatase 71 U/L (45-117); Anion Gap 6 (5-15); BUN 20 mg/dL (7-18); BUN/Creat Ratio 22.3 RATIO (10-20); Calcium,Total 10.6 mg/dL (8.5-10.1); Chloride 110 mmol/L (98-107); EST Glomerular Filtration Rate 64 mL/min (>60); Est Glom Filt Rate - Afr Amer 78 mL/min (>60); Estimated Creatinine Clearance 35.81 ml/min; Globulin 4.9 g/dL (2.2-4.2); Glucose 116 mg/dL (74-106); Potassium 4.3 mmol/L (3.5-5.1); Protein, Total 8.3 g/dL (6.4-8.2); Sodium Level 141 mmol/L (136-145)
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
--- NOTE | 2024-04-03 21:48 | CM.ED ---
Social Work SW spoke with who was at bedside. states patient will not talk to someone she does not know, SW unable to get patient to answer any questions. stated that patient has been weak but he was hopeful she was getting better until today when she was unable to ambulate. Patient does have private duty aides that come to the home Wednesday through 9:30 to 1:30. not able to care for patient at this time but is hopeful she will regain strength and be able to return home. Yaritza Aguilar, SENIOR SQL SERVER DBA, DENITRATOR
[2024-04-03] MEDS: 0.9% Normal Saline (1000mL) 1,000 ML 75 ML IV (22:09)
[2024-04-03] MEDS: 0.9% Saline Lock 10 ML Syringe IV (22:09)
[2024-04-04 03:55] VITALS: BP 123/59; PULSE 74; RESP 14; TEMP 37.6; O2SAT 94
[2024-04-04 06:00] VITALS: BMI 24.3
[2024-04-04 06:40] LABS: Absolute Lymphocyte Count 3.33 X10^3/uL (0.83-4.51); Absolute Neutrophil Count 9.2 X10^3/uL (2.0-7.7); Basophil# 0.04 X10^3/uL; Basophil% 0.3 % (0-1); Eosinophil# 0.09 X10^3/uL; Eosinophils% 0.7 % (0-5); Hemoglobin 12.1 g/dL (12.0-15.0); Lymphocyte # 3.33 X10^3/ul (0.83-4.51); Lymphocyte % 24.2 % (19-41); Mean Corp Hgb Conc 32.7 g/dL (32-36); Mean Corpuscular Hgb 27.5 pg (27.0-32.0); Mean Corpuscular Volume 84.1 fL (81-99); Mean Platelet Vol. 9.2 fl (6.2-12.0); Monocyte# 1.05 X10^3/uL; Monocyte% 7.6 % (0-10); NRBC Flagged by Analyzer 0 % (0-5); Neutrophil # 9.18 X10^3/uL (2.7-7.7); Neutrophil % 66.8 % (47-70); Platelet Count 363 K/mm3 (150-450); RBC Distribution Width CV 12.6 % (11.6-14.6); RBC Distribution Width SD 38.7 fl (35.1-43.9); White Blood Count 13.7 K/mm3 (4.4-11.0)
[2024-04-04 07:45] LABS: ALB/GLOB Ratio 0.7 RATIO (0.9-2.4); AST(SGOT) 17 U/L (15-37); Alanine Aminotransfer ALT/SGPT 12 U/L (13-56); Albumin, Serum 2.8 g/dL (3.2-5.0); Alkaline Phosphatase 55 U/L (45-117); Anion Gap 5 (5-15); BUN 23 mg/dL (7-18); BUN/Creat Ratio 25.8 RATIO (10-20); Calcium,Total 9.6 mg/dL (8.5-10.1); Chloride 114 mmol/L (98-107); Creatinine, Serum 0.89 mg/dL (0.55-1.02); EST Glomerular Filtration Rate 65 mL/min (>60); Est Glom Filt Rate - Afr Amer 78 mL/min (>60); Estimated Creatinine Clearance 36.21 ml/min; Globulin 4.2 g/dL (2.2-4.2); Glucose 107 mg/dL (74-106); Magnesium 2.2 mg/dL (1.6-2.6); Phosphorus 2.5 mg/dL (2.5-4.9); Potassium 4.3 mmol/L (3.5-5.1); Sodium Level 141 mmol/L (136-145)
[2024-04-04 10:07] VITALS: BP 150/75; PULSE 85; RESP 18; TEMP 37.2; O2SAT 98
[2024-04-04] MEDS: Enoxaparin 40 MG/0.4 ML Syringe SC (10:19)
[2024-04-04 15:17] VITALS: BP 153/74; PULSE 73; RESP 16; TEMP 36.6; O2SAT 98
--- NOTE | 2024-04-04 15:42 | CASEMGMT ---
Met with patients to complete REYNOSO form. REYNOSO form explained to who voiced understanding and signed form. Original form placed in pt?s chart and copy provided to patient. Trini Cervantes, Discharge Planning Asst
[2024-04-04] MEDS: Menthol/Lanolin/Calamine/Znox 113 GM Tube 1 APPLIC TOPICAL ×2 (15:44→21:31)
[2024-04-04] MEDS: Ceftriaxone 1 GM/50 ML BAG IV (16:37)
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
[2024-04-04 21:26] VITALS: BP 143/82; PULSE 73; RESP 18; TEMP 36.8; O2SAT 95
[2024-04-04] MEDS: 0.9% Saline Lock 10 ML Syringe IV (21:28)
[2024-04-05 04:42] VITALS: BP 157/70; PULSE 72; RESP 14; TEMP 37.5; O2SAT 98
[2024-04-05 05:46] VITALS: BMI 24.3
[2024-04-05 09:08] VITALS: BP 128/69; PULSE 75; RESP 16; TEMP 36.9; O2SAT 97
[2024-04-05] MEDS: Enoxaparin 40 MG/0.4 ML Syringe SC (09:12)
[2024-04-05] MEDS: Menthol/Lanolin/Calamine/Znox 113 GM Tube 1 APPLIC TOPICAL ×2 (09:12→18:41)
[2024-04-05] MEDS: 0.9% Saline Lock 10 ML Syringe IV (09:12)
[2024-04-05] MEDS: Ceftriaxone 1 GM/50 ML BAG IV (09:12)
--- NOTE | 2024-04-05 12:45 | CASEMGMT ---
Discharge Planning A list of SNF providers including quality and resource use data and consistent with the patient's preferred geographic region, medical needs, and insurance network was created in [employer] Guide.? This list was provided to the SW. Trini Cervantes Discharge Planning Asst.
--- NOTE | 2024-04-05 13:10 | CASEMGMT ---
Social Work- SW met with pt and spouse. SW introduced self and role. A list of SNF providers including quality and resource use data and consistent with the patient?s preferred geographic region, medical needs, and insurance network were provided from the [employer] Guide. SW provided education on SNF referral and precert process. Pt spouse reports that he has a call into [facility] and would like to take her there at discharge for treatment in their hyperbaric oxygen chambers to kill MRSA bacteria. Pt spouse reports that he has spoke with pt PCP and [facility] admissions and is awaiting a call this afternoon. SW provided education on pt therapy performance and recommendations that pt receive inpatient therapy prior to discharge home. Pt spouse reports that [facility] would keep pt inpatient. SW encouraged pt spouse to review SNF list and select three choices. Pt spouse is leaving for an appointment, but will update SW following phone call follow-up with [facility]. SW remains available to follow. KAYLIN Arguelles
--- NOTE | 2024-04-05 14:42 | CASEMGMT ---
Addendum entered by Hiwot Rios 04/05/24 15:57: Spoke to hospitalist regarding HBO tx. Plan for pt to go to SNF. Updated SW. Original Note: Received tc from Jillian fox at 's office stating that the pt just stopped by and asked for an order for hyperbaric treatment. MICHELA BRYANT took Jillian's number and will look into this and call her back. TANYA updated MICHELA BRYANT that pt was speaking of taking pt to [facility] for HBOT or HBO in [place]. Pt not present. MICHELA BRYANT attempted to call Jillian back, left requesting returned call.
[2024-04-05 15:02] VITALS: BP 132/82; PULSE 91; RESP 18; TEMP 37.2; O2SAT 99
--- NOTE | 2024-04-05 18:34 | PN.HOSP_ITS ---
Reason for Visit Reason for Visit: Diagnoses Elevated white blood cell count, unspecified (04/03/24) Hypercalcemia (04/03/24) Other malaise (04/03/24) Anorexia (04/03/24) Pyuria (04/03/24) Subjective Subjective Patient was seen and examined today, she is still nonverbal, she did not do well with physical therapy, I had a discussion with the patient's about the need for her to go to a [place] facility, he is going to consider 3 facilities. Patient's keeps Bringing up [facility] which he felt was a bad facility, I told him this was an [facility] and not a [place] facility. Patient's also made a statement that the patient could get physical therapy at home, I told him that that was not going to be enough to improve her ADLs. Objective Data Objective Data Vital Signs: Vital Signs Temp Pulse Resp BP Pulse Ox O2 Del Method 98.9 F 91 18 132/82 H 99 Room Air 04/05/24 15:02 04/05/24 15:02 04/05/24 15:02 04/05/24 15:02 04/05/24 15:02 04/05/24 15:07 Oxygen Delivery Method Room Air Weight: 52.5 kg Body Mass Index (BMI) 24.3 Intake & Output: Intake and Output for Last 24 Hours 04/03/24 04/04/24 04/05/24 23:59 23:59 23:59 Intake Total 1850 / 2050 250 / 250 Output Total 650 / 650 525 / 525 Balance 1200 / 1400 -275 / -275 Lab / Micro Data 04/04/24 05:52 04/04/24 05:52 Micro: Microbiology 04/03/24 12:30 Urine, Clean Catch Urine Culture - Final Proteus mirabilis 04/03/24 22:10 Mucosa - Nasopharyngeal SARS-CoV-2, Influenza & RSV (PCR) - Final Physical Exam Narrative alert and no apparent distress Constitutional Narrative: Patient is nonverbal General Appearance: well kempt and well developed Orientation / Consciousness: awake HEENT normocephalic, head/scalp atraumatic and moist oral mucous membranes Eyes PERRL, EOMs intact bilaterally and conjunctivae normal Neck supple, no JVD, thyroid normal and no carotid bruits General: trachea midline Resp normal respiratory effort and clear to auscultation bilaterally Auscultation: Negative for rales, rhonchi or wheezes Cardio regular rate, regular rhythm, no murmurs, no rub and no gallops GI normal to inspection, nondistended, normoactive bowel sounds, soft to palpation, non-tender and non-distended Extremity no clubbing, cyanosis or edema Skin no rashes or lesions noted General Skin Exam: no breakdown Neuro CN's II-XII intact bilaterally Neuro Narrative: Patient does not carry on a conversation with this examiner Sensorium / Orientation: awake and alert Psych Psych Narrative: Patient does not carry on a conversation with this examiner Assessment & Plan Assessment/Plan (1) Debility: PLAN: Plan 1. Acute on chronic debility-PT and OT are seeing the patient, again patient was given a list of 3 homes to visit to see which 1 he would prefer his to go to. He is to get back with social professionals tomorrow #2 history of traumatic brain injury-patient had traumatic brain injury approximately 18 months ago, complicates care, management, recovery, and prognosis #3 acute cystitis-patient is currently on IV Rocephin, await urine culture Total clinical time spent by myself addressing the patient's medical issues, reviewing her data, and collaborating with patient's care team: 35 minutes Charges/Coding Visit Charges Inpatient E&M: 82822 Subs Hosp L2
[2024-04-05] MEDS: Ciprofloxacin 500 MG Tablet PO (20:32)
[2024-04-05] MEDS: Acetaminophen 325 MG Tablet 650 MG PO (20:48)
[2024-04-05] MEDS: MELATONIN 3 MG TABLET PO (20:48)
[2024-04-05 20:56] VITALS: BP 131/74; PULSE 83; RESP 16; TEMP 37.5; O2SAT 93
[2024-04-06 06:00] VITALS: BMI 24.0
[2024-04-06] MEDS: Acetaminophen 325 MG Tablet 650 MG PO (06:03)
[2024-04-06] MEDS: Ciprofloxacin 500 MG Tablet PO ×2 (06:03→16:24)
[2024-04-06 06:10] VITALS: BP 130/56; PULSE 60; RESP 16; TEMP 36.7; O2SAT 97
[2024-04-06 08:01] VITALS: BP 119/63; PULSE 56; RESP 16; TEMP 36.4; O2SAT 100
[2024-04-06] MEDS: Menthol/Lanolin/Calamine/Znox 113 GM Tube 1 APPLIC TOPICAL ×2 (08:16→22:39)
[2024-04-06] MEDS: Enoxaparin 40 MG/0.4 ML Syringe SC (08:18)
--- NOTE | 2024-04-06 08:37 | NURSING ---
concur with SN assessment
--- NOTE | 2024-04-06 10:28 | CASEMGMT ---
Social Work- SW met with pt and pt spouse to follow up on discharge planning preferences. Pt spouse reports that he took papers to PCP yesterday to be signed and is awaiting insurance approval. Pt spouse maintains that first choice remains [facility] with HBOT, however, pt spouse open to SNF. Pt spouse reports that he looked over the list and did not think any of the facilities were ranked high enough. Pt spouse requested SNF list for [facility]. A list of SNF providers including quality and resource use data and consistent with the patient?s preferred geographic region, medical needs, and insurance network were provided from the [employer] Guide.SW asked pt spouse to have choices by 1:30-2pm. Pt spouse agreeable. KAYLIN Arguelles
[2024-04-06 14:12] VITALS: BP 118/82; PULSE 77; RESP 16; TEMP 36.8
--- NOTE | 2024-04-06 17:08 | CASEMGMT ---
Social Work- SW followed up with pt and pt spouse. Pt gave a huge smile when SW entered the room and when asked if pt was having a good afternoon, pt responded verbally with yes. SW inquired with spouse as to his choice of facilities for a referral. Pt spouse reports that he is working with insurance and pt PCP on forms. SW again reminded pt spouse that if pt spouse opts to take pt to [facility] or have outpatient hyperbaric oxygen therapy, that pt will discharge home and would discharge today, as physician feels pt is medically ready. Pt spouse reports that he has not had time to go tour SNF facilities. SW encouraged pt spouse that he has been in pt room since 9am and could use that time. Pt spouse reports that he forgot his phone and does not drive and would need to make arrangements for transportation to facility. SW again explained medical necessity for treatment and that pt is medically ready. Pt spouse reports that he was told in the ED that pt would receive therapy here. SW provided education that therapy evals have been completed and pt continues to receive treatment to maintain and build function, but it is not a medical treatment that would necessitate pt staying in the hospital. Pt spouse expressed low literacy and understanding and continued to refuse to choose a SNF facility for referral and also refused that pt is medically ready for discharge home. SW explained that physician will discharge pt tomorrow if a SNF is not selected and encouraged pt spouse to discuss with family overnight to report back in the morning or to make arrangements for pt to return home tomorrow. TANYA called pt dtr to update on discharge planning and receive insights. Pt dtr reports that she will contact her father/pt spouse this evening to discuss SNF or return home. Pt dtr reports that her father/pt spouse is often confused due to hearing loss and also lack of understanding. SW updated physician on status of discharge planning. Physician confirms that pt is medically ready. SW updated RNCM car supervisor on discharge planning status as well. KAYLIN Arguelles
--- NOTE | 2024-04-06 18:56 | PCM.PN.HOSP ---
Reason for Visit Reason for Visit: Diagnoses Elevated white blood cell count, unspecified (04/03/24) Hypercalcemia (04/03/24) Other malaise (04/03/24) Anorexia (04/03/24) Pyuria (04/03/24) Subjective Subjective Patient was seen and examined today, social services manager stated that they talked with her and he had not visited any nursing homes and would not give an answer as to which 1 he would want the patient to go to. The social media marketer told the patient's that he needs to make a decision or else the patient will be discharged and the patient's will have to take her home. Objective Data Objective Data Vital Signs: Vital Signs Temp Pulse Resp BP Pulse Ox O2 Del Method 98.2 F 77 16 118/82 H 100 Room Air 04/06/24 14:12 04/06/24 14:12 04/06/24 14:12 04/06/24 14:12 04/06/24 08:01 04/06/24 14:12 Oxygen Delivery Method Room Air Weight: 51.8 kg Body Mass Index (BMI) 24.0 Intake & Output: Intake and Output for Last 24 Hours 04/04/24 04/05/24 04/06/24 23:59 23:59 23:59 Intake Total 1850 / 2050 250 / 250 Output Total 650 / 650 525 / 525 600 / 600 Balance 1200 / 1400 -275 / -275 -600 / -600 Lab / Micro Data 04/04/24 05:52 04/04/24 05:52 Micro: Microbiology 04/03/24 12:30 Urine, Clean Catch Urine Culture - Final Proteus mirabilis 04/03/24 22:10 Mucosa - Nasopharyngeal SARS-CoV-2, Influenza & RSV (PCR) - Final Physical Exam Narrative alert and no apparent distress Constitutional Narrative: Patient is able to speak a few words to this examiner General Appearance: well kempt and well developed Orientation / Consciousness: awake HEENT normocephalic, head/scalp atraumatic and moist oral mucous membranes Eyes PERRL, EOMs intact bilaterally and conjunctivae normal Neck supple, no JVD, thyroid normal and no carotid bruits General: trachea midline Resp normal respiratory effort and clear to auscultation bilaterally Auscultation: Negative for rales, rhonchi or wheezes Cardio regular rate, regular rhythm, no murmurs, no rub and no gallops GI normal to inspection, nondistended, normoactive bowel sounds, soft to palpation, non-tender and non-distended Extremity no clubbing, cyanosis or edema Skin no rashes or lesions noted General Skin Exam: no breakdown Neuro CN's II-XII intact bilaterally Neuro Narrative: Patient is able to speak a few words to this examiner Sensorium / Orientation: awake and alert Psych Psych Narrative: Patient is able to speak a few words to this examiner Assessment & Plan Assessment/Plan (1) Debility: PLAN: Plan 1. Acute on chronic debility-PT and OT are seeing the patient, I feel that the is delaying the patient's discharge by not following through with providing an answer to which skilled facility she needs to go to. In the end, patient may need to be discharged home with her taking care of her. Patient is talking to this examiner today which is the first time she has talked with me during this admission. #2 history of traumatic brain injury-patient had traumatic brain injury approximately 18 months ago, complicates care, management, recovery, and prognosis #3 acute cystitis-patient was placed on Cipro today, she had Proteus which is not sensitive to Rocephin Total clinical time spent by myself addressing the patient's medical issues, reviewing her data, and collaborating with patient's care team: 35 minutes Charges/Coding Visit Charges Inpatient E&M: 06298 Subs Hosp L2
[2024-04-06 22:35] VITALS: BP 143/64; PULSE 77; RESP 15; TEMP 36.9; O2SAT 100
[2024-04-07 06:00] VITALS: BP 142/64; PULSE 66; RESP 15; TEMP 36.2; O2SAT 98; BMI 23.6
[2024-04-07] MEDS: Ciprofloxacin 500 MG Tablet PO ×2 (06:10→15:00)
[2024-04-07] MEDS: Enoxaparin 40 MG/0.4 ML Syringe SC (08:22)
[2024-04-07] MEDS: Menthol/Lanolin/Calamine/Znox 113 GM Tube 1 APPLIC TOPICAL ×2 (08:22→20:16)
--- NOTE | 2024-04-07 09:27 | CASEMGMT ---
Addendum entered by Claudia Bolanos 04/07/24 15:00: Social Work- SW called pt spouse to update that [facility] is in network and does have availability. Pt spouse stated that he spoke with [facility]. Pt spouse reports that [facility] told him that they have rehab unit in [place] that could accommodate pt needs. SW educated that [place] is an OP facility and [facility] has the TCU. Pt spouse is agreeable to [facility] referral. SW provided education on referral process and if accepted, precert process. SW will continue to provide updates as available. SW updated pt dtr of referral as well. [facility] notified of referral request. Plan: [facility]; pend acceptance KAYLIN Arguelles Addendum entered by Claudia Bolanos 04/07/24 13:22: Social Work- TANYA called pt spouse who reports that he is not looking at any facilities today. Pt spouse reports that [place] is too far and no facilities locally are high enough rated. Pt reports that he stopped and spoke with the medical review coordinator of [facility] rehab unit and she reported that she would work with SW on a bed opening for pt. TANYA shared that SW spoke with TCU/RU admissions this morning after pt dtr called TCU/RU admissions and they do not have beds and do not feel pt is apropriate. SW encouraged pt spouse to look at other facilities, as [facility] is not an option for rehab. Pt spouse states that he stopped by [facility] in [place] to discuss options for HBOT and rehab. Pt reports that they suggested pt call [facility] office. SW inquired if pt was looking at [facility] or [facility] facilities; pt spouse reports [facility]. SW requested [facility] confirm that they accept [place] and have availability. Pt spouse reports that he will not make a choice, as he wants to do what's best for pt. SW encouraged pt to make calls to [facility] and SW will update with [facility] availability. KAYLIN Arguelles Original Note: Social Work- TANYA received a call from pt dtr who reports that she spoke with pt spouse/her dad last night and had a very productive conversation regarding discharge planning. Dtr personally knows that pt has transport to a facility in [place] this afternoon to look at for discharge. Pt dtr also reports that they have discussed a new home routine to take advantage of the 4 hrs/day x 4 days/week assistance in the home. Pt dtr reports that she feels dad is not understanding of the system and the demands of insurance and is not delaying discharge. Pt dtr is open to assisting however necessary to formulate discharge planning. Pt dtr would like to be advised of any discharge plans. Pt dtr reports that family has noticed considerable improvement in pt function while at [facility] and showed appreciation for pt care while at the facility. SW remains available to follow for discharge planning. KAYLIN Arguelles
[2024-04-07 10:52] VITALS: BP 143/67; PULSE 64; RESP 16; TEMP 36.4; O2SAT 99
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
--- NOTE | 2024-04-07 15:01 | CASEMGMT ---
Addendum entered by Trini Cervantes 04/07/24 16:07: [facility] declined. They believe that pt would benefit from roasterman placement. SW updated. Trini Cervantes DC Planning Asst. Original Note: Referral sent to [facility]. Trini Cervantes DC Planning Asst.
--- NOTE | 2024-04-07 16:14 | CASEMGMT ---
Social Work- SW received notice that [facility] was unable to accept referral, as they feel pt is most appropriate for long-term care. SW called pt spouse to update on declination. Pt spouse uncertain what discharge plan will be. SW encouraged pt spouse to decide what the plan for discharge will be and update SW in the morning. SW asked pt spouse to stop by nurse's desk so SW can be alerted to his arrival. SW gently reminded pt spouse that a decision will need to be made tomorrow, as pt remains medically ready. SW called pt dtr to update on declination of referral. SW shared that a decision for discharge plans was requested for tomorrow morning. SW remains available to follow. Clinical blueprinting and photocopy supervisor, Rajani Tian, updated and collaboration on case offered. KAYLIN Arguelles
[2024-04-07 17:00] VITALS: BP 114/64; PULSE 75; RESP 16; TEMP 36.2; O2SAT 97
--- NOTE | 2024-04-07 18:54 | PN.HOSP_ITS ---
Reason for Visit Reason for Visit: Diagnoses Elevated white blood cell count, unspecified (04/03/24) Hypercalcemia (04/03/24) Other malaise (04/03/24) Anorexia (04/03/24) Pyuria (04/03/24) Subjective Subjective Patient was seen and examined today, she is basically nonverbal today during my exam. She does not appear to be in any distress. There was some discussion with older adult social work specialist concerning whether the is looking for a nursing facility, later in the afternoon he indicated he would like to see if [facility] transitional care unit could take the patient. This will probably not happen till Wednesday or Wednesday of next week, patient's has been evasive about finding a senior living for the patient Objective Data Objective Data Vital Signs: Vital Signs Temp Pulse Resp BP Pulse Ox O2 Del Method 97.1 F L 75 16 114/64 97 Room Air 04/07/24 17:00 04/07/24 17:00 04/07/24 17:00 04/07/24 17:00 04/07/24 17:00 04/07/24 17:00 Oxygen Delivery Method Room Air Weight: 51 kg Body Mass Index (BMI) 23.6 Intake & Output: Intake and Output for Last 24 Hours 04/05/24 04/06/24 04/07/24 23:59 23:59 23:59 Intake Total 250 / 250 350 / 350 Output Total 525 / 525 1050 / 1050 650 / 650 Balance -275 / -275 -1050 / -1050 -300 / -300 Lab / Micro Data 04/04/24 05:52 04/04/24 05:52 Micro: Microbiology 04/03/24 12:30 Urine, Clean Catch Urine Culture - Final Proteus mirabilis 04/03/24 22:10 Mucosa - Nasopharyngeal SARS-CoV-2, Influenza & RSV (PCR) - Final Physical Exam Narrative alert and no apparent distress Constitutional Narrative: Patient is aphasic today General Appearance: well kempt and well developed Orientation / Consciousness: awake HEENT normocephalic, head/scalp atraumatic and moist oral mucous membranes Eyes PERRL, EOMs intact bilaterally and conjunctivae normal Neck supple, no JVD, thyroid normal and no carotid bruits General: trachea midline Resp normal respiratory effort and clear to auscultation bilaterally Auscultation: Negative for rales, rhonchi or wheezes Cardio regular rate, regular rhythm, no murmurs, no rub and no gallops GI normal to inspection, nondistended, normoactive bowel sounds, soft to palpation, non-tender and non-distended Extremity no clubbing, cyanosis or edema Skin no rashes or lesions noted General Skin Exam: no breakdown Neuro CN's II-XII intact bilaterally Neuro Narrative: Patient is able to speak a few words to this examiner Sensorium / Orientation: awake and alert Psych Psych Narrative: Patient is aphasic Assessment & Plan Assessment/Plan (1) Debility: PLAN: Plan 1. Acute on chronic debility-PT and OT are seeing the patient, has stated to older adult social work specialist that he wants to check to see of [facility] transitional care will take the patient. #2 history of traumatic brain injury-patient had traumatic brain injury approximately 18 months ago, complicates care, management, recovery, and prognosis #3 acute cystitis-organism is susceptible to Cipro, patient will need to stay on this medication for 5 to 7 days start date was 04/06/2024 Total clinical time spent by myself addressing the patient's medical issues, reviewing her data, and collaborating with patient's care team: 35 minutes Charges/Coding Visit Charges Inpatient E&M: 23405 Subs Hosp L2
[2024-04-07 20:17] VITALS: BP 142/70; PULSE 63; RESP 18; TEMP 36.8; O2SAT 98
[2024-04-08 03:11] VITALS: BP 133/58; PULSE 62; RESP 18; TEMP 36.6; O2SAT 97
[2024-04-08 05:52] VITALS: BMI 23.6
[2024-04-08] MEDS: Ciprofloxacin 500 MG Tablet PO (06:10)
--- NOTE | 2024-04-08 08:23 | PN.HOSP_ITS ---
Reason for Visit Reason for Visit: Diagnoses Elevated white blood cell count, unspecified (04/03/24) Hypercalcemia (04/03/24) Other malaise (04/03/24) Anorexia (04/03/24) Pyuria (04/03/24) Objective Data Objective Data Vital Signs: Vital Signs Temp Pulse Resp BP Pulse Ox O2 Del Method 36.6 C 62 18 133/58 H 97 Room Air 04/08/24 03:11 04/08/24 03:11 04/08/24 03:11 04/08/24 03:11 04/08/24 03:11 04/08/24 03:11 Oxygen Delivery Method Room Air Weight: 51.1 kg Body Mass Index (BMI) 23.6 Intake & Output: Intake and Output for Last 24 Hours 04/06/24 04/07/24 04/08/24 23:59 23:59 23:59 Intake Total 350 / 350 200 / 200 Output Total 1050 / 1050 1050 / 1050 200 / 200 Balance -1050 / -1050 -700 / -700 0 / 0 Lab / Micro Data 04/04/24 05:52 04/04/24 05:52 Micro: Microbiology 04/07/24 17:49 Stool Clostridioides difficile (PCR) - Final 04/03/24 12:30 Urine, Clean Catch Urine Culture - Final Proteus mirabilis 04/03/24 22:10 Mucosa - Nasopharyngeal SARS-CoV-2, Influenza & RSV (PCR) - Final Assessment & Plan Assessment/Plan (1) Debility: PLAN: Plan Acute on chronic debility * PT and OT are seeing the patient * Declined by [facility] as they feel pt would be more appropriate for long-term care. * SW notified pt's 04/07 and advised pt's to make decision today. Hypercalcemia * 2/2 dehydration. since resolved UTI * +Proteus mirabilis * on cipro, started 04/06 h/o TBI: complicates care and recovery.
--- NOTE | 2024-04-08 08:23 | PCM.PN.HOSP ---
Reason for Visit Reason for Visit: Diagnoses Elevated white blood cell count, unspecified (04/03/24) Hypercalcemia (04/03/24) Other malaise (04/03/24) Anorexia (04/03/24) Pyuria (04/03/24) Subjective Subjective No new events. Patient's was asking social work about if she had reached out to the [facility] in [facility] and to see what facilities have available hyperbaric chambers. I asked him when the last time she had been to hyperbaric chamber he stated was in the springtime of last year. Is very concerned about the infections and the need for hyperbaric oxygen treatment Objective Data Objective Data Vital Signs: Vital Signs Temp Pulse Resp BP Pulse Ox O2 Del Method 36.6 C 62 18 133/58 H 97 Room Air 04/08/24 03:11 04/08/24 03:11 04/08/24 03:11 04/08/24 03:11 04/08/24 03:11 04/08/24 03:11 Oxygen Delivery Method Room Air Weight: 51.1 kg Body Mass Index (BMI) 23.6 Intake & Output: Intake and Output for Last 24 Hours 04/06/24 04/07/24 04/08/24 23:59 23:59 23:59 Intake Total 350 / 350 200 / 200 Output Total 1050 / 1050 1050 / 1050 200 / 200 Balance -1050 / -1050 -700 / -700 0 / 0 Lab / Micro Data 04/04/24 05:52 04/04/24 05:52 Micro: Microbiology 04/07/24 17:49 Stool Clostridioides difficile (PCR) - Final 04/03/24 12:30 Urine, Clean Catch Urine Culture - Final Proteus mirabilis 04/03/24 22:10 Mucosa - Nasopharyngeal SARS-CoV-2, Influenza & RSV (PCR) - Final Physical Exam Const alert and no apparent distress Constitutional Narrative: Lying in bed. Nontoxic. Alert. Neuro Sensorium / Orientation: awake and alert Assessment & Plan Assessment/Plan (1) Debility: PLAN: Plan Acute on chronic debility PT and OT are seeing the patient Declined by [facility] as they feel pt would be more appropriate for long-term care. SW notified pt's 04/07 and advised pt's to make decision today. Discussed with patient's as well as with social work. He was inquiring about reaching out to [facility] as well as what facilities would have hyperbaric chambers. I expressed confusion because is unclear why she would need hyperbaric chamber and he said that is because she has had a history of what sounds like a vertebral osteomyelitis. He then stated that she had most recently been in a hyperbaric chamber in May and that was without a physician's order and stated that his son had paid for that. But he had some concerns because there were some issues with the equipment and he felt uncomfortable with her being there. Unclear from my standpoint if patient actually was going to hyperbaric chamber without a physician's order and is imagine the liability for something such as that would be rather high but nonetheless I do not feel that it would be necessary at this point time. I did inquire to see when the last time he spoke with the specialist who initially had ordered it and he was not able to provide me specific timeframe. Patient was declined by [facility]. He did not want her to go to another facility because they only had 2-3 stars and plan is for her to go home. Initially want the patient stay in the hospital till Wednesday so they can make phone call but case management was to facilitate conversation with the home health agency today. Hypercalcemia 2/2 dehydration. since resolved UTI +Proteus mirabilis on cipro, started 04/06. Will continue. History of C. difficile Patient has been on oral vancomycin for unclear period of time and states that she recently received a prescription for that. C. difficile here, however was negative. She was here in February and discharged on the and was discharged with a 13-day supply of vancomycin. So she should have completed that by now without need for further resumption unless she has recurrent diarrhea. h/o TBI: complicates care and recovery.
[2024-04-08 09:10] VITALS: BP 140/61; PULSE 64; RESP 18; TEMP 36.9; O2SAT 98
[2024-04-08] MEDS: Menthol/Lanolin/Calamine/Znox 113 GM Tube 1 APPLIC TOPICAL (10:04)
[2024-04-08] MEDS: Enoxaparin 40 MG/0.4 ML Syringe SC (10:04)
--- NOTE | 2024-04-08 11:26 | CASEMGMT ---
SW went to patient's room. Introduced self and role at [facility]. SW asked patient's Jose Luis if he has chosen any other facilities. Jose Luis started to talk about [facility]. Physician then walked into the room. Physician was talking with Jose Luis to try and figure out the story and plan. SW stepped out. It appears as though Jose Luis wants patient to go to a facility with Hyperbaric O2 treatment. However, TANYA is not aware of any SNF's that offer this. When physician came out of patient's room he stated Jose Luis wants to take patient home with resumption of [facility] health. Physician told Jose Luis patient will be discharged today. SW went back to patient's room. SW confirmed the plan is now to go home with resumption of home health services. Jose Luis said he has to contact someone at [facility] to make sure they will resume their services. TANYA explained that [facility] SW/RN CM take care of contacting home health agencies and letting them know patient is being discharged. TANYA also said a resumption order will also need to be sent. Jose Luis said he himself wants to talk with someone.Jose Luis said TANYA Taylor made a referral to [facility] and per Claudia they declined her. Jose Luis said he called [facility] and he was told there is no record that [facility] even contacted [facility]. 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 Jose Luis said he is going to call [facility] to verify they will be back out. In the meantime TANYA will put in order to resume home health and get all clinicals and order sent to [facility]. Plan: d/c home with resumption of [facility], PT, and OT. Caron Wilder WAREHOUSE ORDER FILLER SCALES INSPECTOR
--- NOTE | 2024-04-08 12:04 | CASEMGMT ---
TANYA sent resumption order and clinicals to [facility] via [employer]. TANYA received a response requesting [facility] notify when patient is being discharged. TANYA asked if someone could call patient's to let him know when they will be back out as he does not feel [facility] sending resumption order and clinicals is enough. Await response. Caron Wilder TELEPHONE LINEWORKER SYBIL
--- NOTE | 2024-04-08 12:27 | DS.PCM_ITS ---
Providers Date of Admission: 04/03/24 Primary Care Physician: Dr. Gianni Vizcarra, DO Reason For Visit: FAILURE TO THRIVE Diagnosis Discharge Diagnosis (1) Debility: Status: Acute Code(s): R53.81 - Other malaise Plan Acute on chronic debility * PT and OT are seeing the patient * Declined by [facility] as they feel pt would be more appropriate for long-term care. * SW notified pt's 04/07 and advised pt's to make decision today. Discussed with patient's as well as with social work. He was inquiring about reaching out to [facility] as well as what facilities would have hyperbaric chambers. I expressed confusion because is unclear why she would need hyperbaric chamber and he said that is because she has had a history of what sounds like a vertebral osteomyelitis. He then stated that she had most recently been in a hyperbaric chamber in May and that was without a physician's order and stated that his son had paid for that. But he had some concerns because there were some issues with the equipment and he felt uncomfortable with her being there. Unclear from my standpoint if patient actually was going to hyperbaric chamber without a physician's order and is imagine the liability for something such as that would be rather high but nonetheless I do not feel that it would be necessary at this point time. I did inquire to see when the last time he spoke with the specialist who initially had ordered it and he was not able to provide me specific timeframe. * Patient was declined by [facility]. He did not want her to go to another facility because they only had 2-3 stars and plan is for her to go home. Initially want the patient stay in the hospital till Wednesday so they can make phone call but case management was to facilitate conversation with the home health agency today. Hypercalcemia * 2/2 dehydration. since resolved UTI * +Proteus mirabilis * on cipro, started 04/06. Will continue. History of C. difficile * Patient has been on oral vancomycin for unclear period of time and states that she recently received a prescription for that. C. difficile here, however was negative. She was here in February and discharged on the and was discharged with a 13-day supply of vancomycin. So she should have completed that by now without need for further resumption unless she has recurrent diarrhea. h/o TBI: complicates care and recovery. Medications at Discharge Home Medications ciprofloxacin HCl 500 mg tablet 500 mg PO BIDAC #10 tabs 04/08/24 Hospital Course Operations None Procedures None Summary of Care Provided Hospital Course: Greater than 45 minutes. Patient presents with debility. She was found to have urinary tract infection. wanted her to go to [facility] but they did not accept her think that she would be more beneficial for her long-term facility. He does not want her to go to any other facilities because of their poor start readings. She will return home with home health care. He was inquiring about hyperbaric oxygen treatment. Really no clear indication for that at this time and he apparently had been having the patient go to hyperbaric treatment without doctors orders but had stopped doing that in the spring 2023. Weight / BMI Weight Weight: 51.1 kg Body Mass Index (BMI) 23.6 ABG / Lab / Microbiology Data 04/04/24 05:52 04/04/24 05:52 Microbiology: Microbiology 04/07/24 17:49 Stool Clostridioides difficile (PCR) - Final 04/03/24 12:30 Urine, Clean Catch Urine Culture - Final Proteus mirabilis 04/03/24 22:10 Mucosa - Nasopharyngeal SARS-CoV-2, Influenza & RSV (PCR) - Final D/C Instructions Discharge Diet: No restrictions DC O2, CPAP, BIPAP Needs Home O2 Discharge instructions: No DC home with Oxygen: No Meaningful Use Info Meaningful Use Meaningful Use Diagnoses (Choose all that apply): None applicable Ischemic Stroke Statin Dosing Therapy Reference: STATIN DOSE THERAPY REFERENCE: * Patients > 75 years receive moderate or high dose statin therapy. * Patients 75 years or YOUNGER should receive HIGH intensity statin dose unless contraindicated. You will be required to document reason for non-treatment if statin daily dose does not meet guidelines. HIGH DOSE STATIN THERAPY DAILY Atorvastatin > than or = to 40 mg Rosuvastatin > than or = to 20 mg Amlodipine + Atorvastatin > than or = to 2.5/40 mg Ezetimibe + Simvastatin 10/80 mg Simvastatin 80mg Discharge Plan Admission Admit Date/Time: 04/03/24 16:50 Primary Reason for Your Visit: Urinary tract infection Attending Provider: Avtar Goodwin Primary Care Provider: Gianni Vizcarra Consulting Providers: Julia Hansen; Tereletsky,Fantasma Discharge Orders/Prescriptions Prescriptions: New ciprofloxacin HCl 500 mg Tablet 500 mg PO BIDAC Qty: 10 0RF Discontinued vancomycin 125 mg capsule 125 mg PO Q6H 13 Days Qty: 52 0RF Referrals / Follow Up: Gianni Vizcarra DO [Primary Care Provider] - Within 2 Weeks Disposition Disposition (needs filled in before D/C Order can be placed): Home Health Service Charges/Coding Visit Charges Inpatient E&M: 03410 Disch Hosp >30min
--- NOTE | 2024-04-08 13:01 | CASEMGMT ---
TANYA communicated back and forth with [facility] via [employer]. They will contact scheduling to arrange a visit for next week and then call the . TANYA met with patient and her Jose Luis. TANYA let Jose Luis know SW has communicated with [facility] and they are aware she is being discharged today. Jose Luis said they already received TANYA's paperwork and they will be out tomorrow versus Wednesday. Jose Luis said he called . Jose Luis declined any further needs. They have a ride coming at 130. Plan: d/c home with resumption of [facility], PT, and OT. Caron Wilder AVIATION SAFETY OFFICER SYBIL
[2024-04-08 13:36] VITALS: BP 134/70; PULSE 70; RESP 18; TEMP 36.8; O2SAT 98
== END 2024-04-08 13:42 | disposition home health service (06) ==
LOC: ED 16:26 → MS3 17:42
PROVIDERS: Admitting Provider Internal Medicine; Emergency Provider Emergency Medicine; PCP Preventive Medicine Occupational Medicine
DX: R53.81 Other malaise (principal); E83.52 Hypercalcemia; R62.7 Adult failure to thrive; R53.1 Weakness; N30.00 Acute cystitis without hematuria; B96.4 Proteus (mirabilis) (morganii) as the cause of diseases classified elsewhere; Z87.820 Personal history of traumatic brain injury
CPT/HCPCS: 36415; 80053; 81001; 82962; 83735; 84100; 85025; 87077; 87086; 87088; 87186; 87493; 87631; 94668; 96361; 96365; 96366; 96372; 97116; 97162; 97166; 97530; 97535; 99221; 99285; P9612; A4216; G0378

== ENCOUNTER 2025-03-15 13:16 | Inpatient (IN) | payer MEDICARE, SELFPAY ==
[2025-03-15] VITALS (22 sets, daily range): BP systolic 103–174; BP diastolic 60–110; PULSE 90–123; RESP 16–24; TEMP -17.7–39.4; O2SAT 93–100; BMI 24.6; BMI 25.3
--- NOTE | 2025-03-15 13:16 | CT_ITS ---
PROCEDURE: STROKE BRAIN/HEAD WITHOUT CONT N/A REASON FOR EXAM: NEURO DEFICIT, ACUTE, STROKE SUSPECTED TECHNIQUE: Procedure Code: CTBR.ST Modality: CT Procedure: STROKE BRAIN/HEAD WITHOUT CONT Coronal and Sagittal reconstruction series were provided. One or more dose reduction techniques were used (e.g., Automated exposure control, adjustment of the mA and/or kV according to patient size, use of iterative reconstruction technique. RADIATION DOSE SUMMARY: CTDlvol: 44.99+ 44.99 mGy DLP: 1626.96 mGycm COMPARISON: 26 January 2024 FINDINGS: Brain: Stable bifrontal white matter hypodensities from previous infarcts. Stable right cerebellar chronic infarct. Unchanged ex vacuo ventricular dilatation. No mass effect, midline shift, or sulcal effacement. No evidence of acute intracranial hemorrhage, hydrocephalus, or herniation. Bilateral basal ganglia calcifications. CSF Spaces: The CSF containing spaces are otherwise patent and symmetric as appropriate. Sinuses/Mastoids: Mastoid air cells and paranasal sinuses are clear. Bones: No evidence of acute skull fracture. The chronic right occipital skull fracture is unchanged over the interval. 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 No evidence of acute intracranial hemorrhage, hydrocephalus, or herniation. Bilateral basal ganglia calcificatio ns. Stroke Alert: No evidence of acute intracranial hemorrhage, hydrocephalus, or h erniation. The critical findings in the findings and impression above were relayed directl y by me by telephone to Loki Melendrez on 03/15/2025 at 1330 hours with readback verification. Reading Location: [id number]
--- NOTE | 2025-03-15 13:17 | EKG12_ITS ---
Test Reason : STROKE Blood Pressure : */* mmHG Vent. Rate : 112 BPM Atrial Rate : 112 BPM P-R Int : 188 ms QRS Dur : 106 ms QT Int : 338 ms P-R-T Axes : 24 -25 36 degrees QTcB Int : 461 ms Sinus tachycardia Otherwise normal ECG Confirmed by Jasvir Urbina ([id number]), video effects editor GOSIA JOHNSON ([id number]) on 03/16/2025 8:26:23 AM Referred By: Confirmed By: Jasvir Urbina
--- NOTE | 2025-03-15 13:27 | EDS_ITS ---
HPI History of Present Illness Chief Complaint: Stroke Alert [facility] Medical History MRSA bacteremia History of traumatic brain injury History of osteomyelitis History of ulcerative colitis Home Medications ?Medication ?Instructions ?Recorded ?Last Taken ?Type ciprofloxacin HCl 500 mg tablet 500 mg PO BIDAC #10 ta bs 04/08/24 Unknown Rx Allergy/AdvReac Type Severity Reaction Status Date / Time Penicillins Allergy Swelling Verified 03/15/25 13:18 Surgical History (Updated 03/15/25 @ 13:[address] Bela Iyer MD) S/P carpal tunnel release S/P tubal ligation S/P section Hx of lumbosacral spine surgery Social History household members: spouse housing: house Smoking Status: Never smoker alcohol intake: never substance use type: does not use Discharge Plan Triage Chief Complaint: Stroke Alert ED Provider: Loki Melendrez Dx/Rx/DC Orders Prescriptions: No Action ciprofloxacin HCl 500 mg Tablet 500 mg PO BIDAC Qty: 10 0RF Primary Care Provider: Gianni Vizcarra Referrals: Gianni Vizcarra DO [Primary Care Provider, [facility]] Print Language: Bengali NIHSS NIHSS 1a. Level of Consciousness: 1 - Not alert; Arousable by minor stimuli to obey, answer & respond 1b. LOC Questions: 2 - Answers NEITHER question correctly 1c. LOC Commands: 0 - Performs BOTH tasks correctly 2. Best Gaze: 0 - Normal 3. Visual: 0 - No visual loss 4. Facial Palsy: 0 - Normal symmetrical movements 5a. Left Arm: 0 - No drift; arm holds 90 (or 45) degrees for full 10 seconds 5b. Right Arm: 1 - Drift; arm drifts downward but doesn?t hit the bed 6a. Left Le - No drift; leg holds 30-degree position for full 5 seconds 6b. Right Le - Drift; leg falls by the end of 5-seconds, but does not hit bed 7. Limb Ataxia: UN - Amputation or joint fusion, explain (Patient not following commands) 9. Best Language: 2 - Severe aphasia; 10. Dysarthria: 0 - Normal Total: 7 Stroke Questions Stroke Team Activated: Yes Reviewed Inclusion/Exclusion criteria: Yes IV Thrombolytic Administered: Yes No contraindications from thrombolytic administration: Yes Informed the patient and/or family of all associated risks, benefits, & alternatives to IV Thrombolytic Therapy. Patient and/or family voluntarily consent to the administration of IV Thrombolytic Therapy: Unable due to patients mental status/condition Details of attempts to obtain consent:: - Patient lacks the capacity to give informed consent - Attempts to contact patient inbound sales representative were unsuccessful - There is an urgent need to proceed with treatment in the absence of consent - Two providers both independently agree that thrombolytics are indicated - Implied consent for emergency treatment Mental status / Condition details that prevents obtaining consent: Patient having difficulty speaking and following simple commands 2nd Provider who agrees that thrombolytic is indicated: Lizette Timmons
--- NOTE | 2025-03-15 13:30 | CT_ITS ---
PROCEDURE: STROKE CTA HEAD AND NECK W/CON 03/15/2025 REASON FOR EXAM: NEURO DEFICIT, ACUTE, STROKE SUSPECTED TECHNIQUE: Procedure Code: CTCTA.ST.HN Modality: CT Procedure: STROKE CTA HEAD AND NECK W/CON Multiplanar Sagittal and Coronal images were obtained. CONTRAST: Isovue 370 VOLUME: 75 mL One or more dose reduction techniques were used (e.g., Automated exposure control, adjustment of the mA and/or kV according to patient size, use of iterative reconstruction technique). RADIATION DOSE SUMMARY: CTDlvol: 17.75 mGy DLP: 623.15 mGycm COMPARISON: None. FINDINGS: Aortic Arch: Normal size and branching pattern. No significant atherosclerotic plaque. Brachiocephalic and Subclavians: Unremarkable RIGHT Carotid: Right CCA: Unremarkable. Right ICA: Occluded. Right ECA: Unremarkable. LEFT Carotid: Left CCA: Unremarkable. Left ICA: Unremarkable. Left ECA: Unremarkable. Vertebrals: Codominant. Arise from the subclavians. Both vertebrals form the basilar. RIGHT Vertebral: Unremarkable. LEFT Vertebral: Unremarkable. Anatomy: [place] of Guillory anatomy is normal. Aneurysm or avm: No intracranial aneurysms or large vascular malformations are identified. Anterior cerebral arteries: Unremarkable: Middle cerebral arteries: Unremarkable. Basilar artery: Unremarkable. Posterior cerebral arteries: Unremarkable. Other major branches of the posterior circulation: Unremarkable. Major venous structures: Unremarkable. Other findings: Neck: No lymphadenopathy. Lungs: Lung apices are clear. Bones: Bones are unremarkable. CT/STROKE CTA Head AND Neck W/Con IMPRESSION: Occluded right internal carotid artery which reconstitute intracranially. No hemodynamically significant stenosis in the left internal carotid artery. No hemodynamically significant stenosis intracranially at the [place] of fluids or posterior circulation. Reading Location: [facility]
--- NOTE | 2025-03-15 13:38 | ED.RN ---
RN called [facility] that pt just returned from CT. daughter and at bedside. signed consent for tenectaplase.
--- OUTSIDE RECORDS SUMMARY | 2025-03-15 13:38 | XMS RPT_ITS | CCD ---
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 04-03-2024 Emergency Department Summary Normal [facility] H AND P Exam - Hospitaliston 04-03-2024 H&P Exam - Hospitalist Normal [facility] M100.678on 04-03-2024 M100.678 Pending SARS-CoV-2 (COVID 19) Negative INFLUENZA A Negative INFLUENZA B Negative RSV PCR Negative Normal [facility] Comment on above: Performed By: #### M 100.678 ####[facility] [address] [place], [address] Urinalysis, Completeon 04-03 Mucus Ql (Urine sed) 1+ /hpf Normal [facility] Comment on above: Order Comment: RODNEY TER SPECIMEN Performed By: #### L 400.0001 ####[facility] [address] [place], [address] RBC 5-10 SEEN Normal 0-5 [facility] Comment on above: Order Comment: RODNEY TER SPECIMEN Performed By: #### L 400.0001 ####[facility] [address] [place], [address] WBC >100 SEEN Normal 0-5 [facility] Comment on above: Order Comment: RODNEY TER SPECIMEN Performed By: #### L 400.0001 ####[facility] [address] [place], [address] BACTERIA 0 SEEN Normal None Seen [facility] Comment on above: Order Comment: RODNEY TER SPECIMEN Performed By: #### L 400.0001 ####[facility] [address] [place], [address] EPI,SQUAMOUS 0 SEEN Normal 5-10 [facility] Comment on above: Order Comment: RODNEY TER SPECIMEN Performed By: #### L 400.0001 ####[facility] [address] [place], [address] Culture, Blood (WB)on 2024 CUB Blood cultures x2, f rom two different sites No growth in 5 days. Normal [facility] Comment on above: Performed By: #### M 200.1000 ####[facility] [address] [place], [address] CUB Blood cultures x2, f rom two different sites No growth in 5 days. Normal [facility] Comment on above: Performed By: #### M 200.1000 ####[facility] [address] [place], [address] Basic Metabolic Profile (BMP )on 03-23-2024 BUN Normal 7-18 [facility] Comment on above: Result Comment: Canc elled via OM: Order cancelled - Patient discharged Performed By: #### L 500.2500, L100.0500 ####[facility] [address] [place], [address] BUN/CRE Normal 10-20 [facility] Comment on above: Result Comment: Canc elled via OM: Order cancelled - Patient discharged Performed By: #### L 500.2500, L100.0500 ####[facility] [address] [place], [address] CA,Total Normal 8.5-10.1 [facility] Comment on above: Result Comment: Canc elled via OM: Order cancelled - Patient discharged Performed By: #### L 500.2500, L100.0500 ####[facility] [address] [place], [address] CL Normal 98-107 [facility] Comment on above: Result Comment: Canc elled via OM: Order cancelled - Patient discharged Performed By: #### L 500.2500, L100.0500 ####[facility] [address] [place], [address] CO2 Normal 21.0-32.0 [facility] Comment on above: Result Comment: Canc elled via OM: Order cancelled - Patient discharged Performed By: #### L 500.2500, L100.0500 ####[facility] [address] [place], [address] CREAT,SERUM Normal 0.55-1.02 [facility] Comment on above: Result Comment: Canc elled via OM: Order cancelled - Patient discharged Performed By: #### L 500.2500, L100.0500 ####[facility] [address] [place], [address] EST GFR Normal >60 [facility] Comment on above: Result Comment: Canc elled via OM: Order cancelled - Patient discharged Performed By: #### L 500.2500, L100.0500 ####[facility] [address] [place], [address] EST GFR - AA Normal >60 [facility] Comment on above: Result Comment: Canc elled via OM: Order cancelled - Patient discharged Performed By: #### L 500.2500, L100.0500 ####[facility] [address] [place], [address] GAP Normal 5-15 [facility] Comment on above: Result Comment: Canc elled via OM: Order cancelled - Patient discharged Performed By: #### L 500.2500, L100.0500 ####[facility] [address] [place], [address] GLU Normal 74-106 [facility] Comment on above: Result Comment: Canc elled via OM: Order cancelled - Patient discharged Performed By: #### L 500.2500, L100.0500 ####[facility] [address] [place], [address] Potassium Normal 3.5-5.1 [facility] Comment on above: Result Comment: Canc elled via OM: Order cancelled - Patient discharged Performed By: #### L 500.2500, L100.0500 ####[facility] [address] [place], [address] Basic Metabolic Profile (BMP) Normal 136-145 [facility] Comment on above: Result Comment: Canc elled via OM: Order cancelled - Patient discharged Performed By: #### L 500.2500, L100.0500 ####[facility] [address] [place], [address] CBC-Complete Blood Cnt No Di ffon 03-23-2024 HCT Normal 37-47 [facility] Comment on above: Result Comment: Canc elled via OM: Order cancelled - Patient discharged Performed By: #### L 500.2500, L100.0500 ####[facility] [address] [place], [address] HGB Normal 12.0-15.0 [facility] Comment on above: Result Comment: Canc elled via OM: Order cancelled - Patient discharged Performed By: #### L 500.2500, L100.0500 ####[facility] [address] [place], [address] MCH Normal 27.0-32.0 [facility] Comment on above: Result Comment: Canc elled via OM: Order cancelled - Patient discharged Performed By: #### L 500.2500, L100.0500 ####[facility] [address] [place], [address] MCHC Normal 32-36 [facility] Comment on above: Result Comment: Canc elled via OM: Order cancelled - Patient discharged Performed By: #### L 500.2500, L100.0500 ####[facility] [address] [place], [address] MCV Normal 81-99 [facility] Comment on above: Result Comment: Canc elled via OM: Order cancelled - Patient discharged Performed By: #### L 500.2500, L100.0500 ####[facility] [address] [place], [address] PLT Normal 150-450 [facility] Comment on above: Result Comment: Canc elled via OM: Order cancelled - Patient discharged Performed By: #### L 500.2500, L100.0500 ####[facility] [address] [place], [address] RBC Normal 4.2-5.4 [facility] Comment on above: Result Comment: Canc elled via OM: Order cancelled - Patient discharged Performed By: #### L 500.2500, L100.0500 ####[facility] [address] [place], [address] RDW CV Normal 11.6-14.6 [facility] Comment on above: Result Comment: Canc elled via OM: Order cancelled - Patient discharged Performed By: #### L 500.2500, L100.0500 ####[facility] [address] [place], [address] RDW SD Normal 35.1-43.9 [facility] Comment on above: Result Comment: Canc elled via OM: Order cancelled - Patient discharged Performed By: #### L 500.2500, L100.0500 ####[facility] [address] [place], [address] WBC Normal 4.4-11.0 [facility] Comment on above: Result Comment: Canc elled via OM: Order cancelled - Patient discharged Performed By: #### L 500.2500, L100.0500 ####[facility] [address] [place], [address] Basic Metabolic Profile (BMP )on 03-22-2024 BUN Normal 7-18 [facility] Comment on above: Result Comment: Canc elled via OM: Order cancelled - Patient discharged Performed By: #### L 500.2500, L100.0500 ####[facility] [address] [place], [address] BUN/CRE Normal 10-20 [facility] Comment on above: Result Comment: Canc elled via OM: Order cancelled - Patient discharged Performed By: #### L 500.2500, L100.0500 ####[facility] [address] [place], [address] CA,Total Normal 8.5-10.1 [facility] Comment on above: Result Comment: Canc elled via OM: Order cancelled - Patient discharged Performed By: #### L 500.2500, L100.0500 ####[facility] [address] [place], [address] CL Normal 98-107 [facility] Comment on above: Result Comment: Canc elled via OM: Order cancelled - Patient discharged Performed By: #### L 500.2500, L100.0500 ####[facility] [address] [place], [address] CO2 Normal 21.0-32.0 [facility] Comment on above: Result Comment: Canc elled via OM: Order cancelled - Patient discharged Performed By: #### L 500.2500, L100.0500 ####[facility] [address] [place], [address] CREAT,SERUM Normal 0.55-1.02 [facility] Comment on above: Result Comment: Canc elled via OM: Order cancelled - Patient discharged Performed By: #### L 500.2500, L100.0500 ####[facility] [address] [place], [address] EST GFR Normal >60 [facility] Comment on above: Result Comment: Canc elled via OM: Order cancelled - Patient discharged Performed By: #### L 500.2500, L100.0500 ####[facility] [address] [place], [address] EST GFR - AA Normal >60 [facility] Comment on above: Result Comment: Canc elled via OM: Order cancelled - Patient discharged Performed By: #### L 500.2500, L100.0500 ####[facility] [address] [place], [address] GAP Normal 5-15 [facility] Comment on above: Result Comment: Canc elled via OM: Order cancelled - Patient discharged Performed By: #### L 500.2500, L100.0500 ####[facility] [address] [place], [address] GLU Normal 74-106 [facility] Comment on above: Result Comment: Canc elled via OM: Order cancelled - Patient discharged Performed By: #### L 500.2500, L100.0500 ####[facility] [address] [place], [address] Potassium Normal 3.5-5.1 [facility] Comment on above: Result Comment: Canc elled via OM: Order cancelled - Patient discharged Performed By: #### L 500.2500, L100.0500 ####[facility] [address] [place], [address] Basic Metabolic Profile (BMP) Normal 136-145 [facility] Comment on above: Result Comment: Canc elled via OM: Order cancelled - Patient discharged Performed By: #### L 500.2500, L100.0500 ####[facility] [address] [place], [address] CBC-Complete Blood Cnt No Di ffon 03-22-2024 HCT Normal 37-47 [facility] Comment on above: Result Comment: Canc elled via OM: Order cancelled - Patient discharged Performed By: #### L 500.2500, L100.0500 ####[facility] [address] [place], [address] HGB Normal 12.0-15.0 [facility] Comment on above: Result Comment: Canc elled via OM: Order cancelled - Patient discharged Performed By: #### L 500.2500, L100.0500 ####[facility] [address] [place], [address] MCH Normal 27.0-32.0 [facility] Comment on above: Result Comment: Canc elled via OM: Order cancelled - Patient discharged Performed By: #### L 500.2500, L100.0500 ####[facility] [address] [place], [address] MCHC Normal 32-36 [facility] Comment on above: Result Comment: Canc elled via OM: Order cancelled - Patient discharged Performed By: #### L 500.2500, L100.0500 ####[facility] [address] [place], [address] MCV Normal 81-99 [facility] Comment on above: Result Comment: Canc elled via OM: Order cancelled - Patient discharged Performed By: #### L 500.2500, L100.0500 ####[facility] [address] [place], [address] PLT Normal 150-450 [facility] Comment on above: Result Comment: Canc elled via OM: Order cancelled - Patient discharged Performed By: #### L 500.2500, L100.0500 ####[facility] [address] [place], [address] RBC Normal 4.2-5.4 [facility] Comment on above: Result Comment: Canc elled via OM: Order cancelled - Patient discharged Performed By: #### L 500.2500, L100.0500 ####[facility] [address] [place], [address] RDW CV Normal 11.6-14.6 [facility] Comment on above: Result Comment: Canc elled via OM: Order cancelled - Patient discharged Performed By: #### L 500.2500, L100.0500 ####[facility] [address] [place], [address] RDW SD Normal 35.1-43.9 [facility] Comment on above: Result Comment: Canc elled via OM: Order cancelled - Patient discharged Performed By: #### L 500.2500, L100.0500 ####[facility] [address] [place], [address] WBC Normal 4.4-11.0 [facility] Comment on above: Result Comment: Canc elled via OM: Order cancelled - Patient discharged Performed By: #### L 500.2500, L100.0500 ####[facility] [address] [place], [address] Basic Metabolic Profile (BMP )on 03-21-2024 BUN/CRE 13.2 RATIO Normal 10-20 [facility] Comment on above: Performed By: #### L 500.2500, L100.0500 ####[facility] [address] [place], [address] CA,Total 10.0 mg/dL Normal 8.5-10.1 [facility] Comment on above: Performed By: #### L 500.2500, L100.0500 ####[facility] [address] [place], [address] Chloride [Moles/Vol] 110 mmol/L High 98-107 [facility] Comment on above: Performed By: #### L 500.2500, L100.0500 ####[facility] [address] [place], [address] CO2 [Moles/Vol] 25.0 mmol/L Normal 21.0-32.0 [facility] Comment on above: Performed By: #### L 500.2500, L100.0500 ####[facility] [address] [place], [address] Creatinine [Mass/Vol] 0.76 mg/dL Normal 0.55-1.02 [facility] Comment on above: Result Comment: The validity of the calculated GFR GFRAA in patients over70 years has not been determined. Clinical correlation isessential. Performed By: #### L 500.2500, L100.0500 ####[facility] [address] [place], [address] ECRCL 40.29 ml/min Normal [facility] Comment on above: Performed By: #### L 500.2500, L100.0500 ####[facility] [address] [place], [address] EST GFR - AA 94 mL/min Normal >60 [facility] Comment on above: Result Comment: Afri can [place] GFR Calc Performed By: #### L 500.2500, L100.0500 ####[facility] [address] [place], [address] GAP 5 Normal 5-15 [facility] Comment on above: Performed By: #### L 500.2500, L100.0500 ####[facility] [address] [place], [address] GFR/1.73 sq M.predicted among non-blacks MDRD (S/P/Bld) [Vol rate/Area] 78 mL/min/{1.73_m2} Normal >60 [facility] Comment on above: Result Comment: Non- GFR Calc Performed By: #### L 500.2500, L100.0500 ####[facility] [address] [place], [address] Glucose [Mass/Vol] 98 mg/dL Normal 74-106 [facility] Comment on above: Performed By: #### L 500.2500, L100.0500 ####[facility] [address] [place], [address] Potassium [Moles/Vol] 3.9 mmol/L Normal 3.5-5.1 [facility] Comment on above: Performed By: #### L 500.2500, L100.0500 ####[facility] [address] [place], [address] Sodium [Moles/Vol] 140 mmol/L Normal 136-145 [facility] Comment on above: Performed By: #### L 500.2500, L100.0500 ####[facility] [address] [place], [address] Urea nitrogen [Mass/Vol] 10 mg/dL Normal 7-18 [facility] Comment on above: Performed By: #### L 500.2500, L100.0500 ####[facility] [address] [place], [address] CBC-Complete Blood Cnt No Di ffon 03-21-2024 Erythrocyte distribution width (RBC) [Ratio] 12.7 % Normal 11.6-14.6 [facility] Comment on above: Performed By: #### L 500.2500, L100.0500 ####[facility] [address] [place], [address] Hematocrit (Bld) [Volume fraction] 34.7 % Low 37-47 [facility] Comment on above: Performed By: #### L 500.2500, L100.0500 ####[facility] [address] [place], [address] Hemoglobin (Bld) [Mass/Vol] 11.8 g/dL Low 12.0-15.0 [facility] Comment on above: Performed By: #### L 500.2500, L100.0500 ####[facility] [address] [place], [address] MCH (RBC) [Entitic mass] 28.3 pg Normal 27.0-32.0 [facility] Comment on above: Performed By: #### L 500.2500, L100.0500 ####[facility] [address] [place], [address] MCHC (RBC) [Mass/Vol] 34.0 g/dL Normal 32-36 [facility] Comment on above: Performed By: #### L 500.2500, L100.0500 ####[facility] [address] [place], [address] MCV (RBC) [Entitic vol] 83.2 fL Normal 81-99 [facility] Comment on above: Performed By: #### L 500.2500, L100.0500 ####[facility] [address] [place], [address] Platelet mean volume (Bld) [Entitic vol] 9.1 fL Normal 6.2-12.0 [facility] Comment on above: Performed By: #### L 500.2500, L100.0500 ####[facility] [address] [place], [address] Platelets (Bld) [#/Vol] 296 10*3/uL Normal 150-450 [facility] Comment on above: Performed By: #### L 500.2500, L100.0500 ####[facility] [address] [place], [address] RBC (Bld) [#/Vol] 4.17 10*6/uL Low 4.2-5.4 [facility] Comment on above: Performed By: #### L 500.2500, L100.0500 ####[facility] [address] [place], [address] RDW SD 38.9 fl Normal 35.1-43.9 [facility] Comment on above: Performed By: #### L 500.2500, L100.0500 ####[facility] [address] [place], [address] WBC (Bld) [#/Vol] 7.3 10*3/uL Normal 4.4-11.0 [facility] Comment on above: Performed By: #### L 500.2500, L100.0500 ####[facility] [address] [place], [address] Discharge Instructionon 12-3 Discharge Instruction Normal [facility] Urine Cultureon 03-21-2024 URC Normal [facility] Comment on above: Performed By: #### M 100.2200 ####[facility] [address] [place], [address] CBC W/Diff, Automatedon 02-21 PATH REV Reviewed Normal [facility] Comment on above: Result Comment: Neut rophilic leukocytosis.Clinical correlation necessary.Ajay Ann M.D. 03/20/24 AMENDED REPORT 03/20/24 1531 PATH REV previously reported as: July Performed By: #### L 100.0100, L500.4050 ####[facility] [address] [place], [address] Absolute Lymph 2.65 X10 3/uL Normal 0.83-4.51 [facility] Comment on above: Performed By: #### L 100.0100, L500.4050 ####[facility] [address] [place], [address] Absolute Neut 6.5 X10 3/uL Normal 2.0-7.7 [facility] Comment on above: Performed By: #### L 100.0100, L500.4050 ####[facility] [address] [place], [address] Basophils/100 WBC (Bld) 0.4 % Normal 0-1 [facility] Comment on above: Performed By: #### L 100.0100, L500.4050 ####[facility] [address] [place], [address] Eosinophils/100 WBC (Bld) 1.4 % Normal 0-5 [facility] Comment on above: Performed By: #### L 100.0100, L500.4050 ####[facility] [address] [place], [address] Erythrocyte distribution width (RBC) [Ratio] 12.7 % Normal 11.6-14.6 [facility] Comment on above: Performed By: #### L 100.0100, L500.4050 ####[facility] [address] [place], [address] Hematocrit (Bld) [Volume fraction] 35.2 % Low 37-47 [facility] Comment on above: Performed By: #### L 100.0100, L500.4050 ####[facility] [address] [place], [address] Hemoglobin (Bld) [Mass/Vol] 11.8 g/dL Low 12.0-15.0 [facility] Comment on above: Performed By: #### L 100.0100, L500.4050 ####[facility] [address] [place], [address] IG% 0.400 Normal 0.0-0.9 [facility] Comment on above: Result Comment: IG% - Immature Granulocytes (promyelocytes, myelocytes andmetamyelocytes) > 1% indicates that a LEFT SHIFT is Present. Performed By: #### L 100.0100, L500.4050 ####[facility] [address] [place], [address] Lymphocytes/100 WBC (Bld) 26.1 % Normal 19-41 [facility] Comment on above: Performed By: #### L 100.0100, L500.4050 ####[facility] [address] [place], [address] MCH (RBC) [Entitic mass] 27.8 pg Normal 27.0-32.0 [facility] Comment on above: Performed By: #### L 100.0100, L500.4050 ####[facility] [address] [place], [address] MCHC (RBC) [Mass/Vol] 33.5 g/dL Normal 32-36 [facility] Comment on above: Performed By: #### L 100.0100, L500.4050 ####[facility] [address] [place], [address] MCV (RBC) [Entitic vol] 82.8 fL Normal 81-99 [facility] Comment on above: Performed By: #### L 100.0100, L500.4050 ####[facility] [address] [place], [address] Monocytes/100 WBC (Bld) 8.3 % Normal 0-10 [facility] Comment on above: Performed By: #### L 100.0100, L500.4050 ####[facility] [address] [place], [address] Neutrophils/100 WBC (Bld) 63.4 % Normal 47-70 [facility] Comment on above: Performed By: #### L 100.0100, L500.4050 ####[facility] [address] [place], [address] Nucleated RBC (Bld) [#/Vol] 0 10*3/uL Normal 0-5 [facility] Comment on above: Performed By: #### L 100.0100, L500.4050 ####[facility] [address] [place], [address] Platelet mean volume (Bld) [Entitic vol] 9.2 fL Normal 6.2-12.0 [facility] Comment on above: Performed By: #### L 100.0100, L500.4050 ####[facility] [address] [place], [address] Platelets (Bld) [#/Vol] 289 10*3/uL Normal 150-450 [facility] Comment on above: Performed By: #### L 100.0100, L500.4050 ####[facility] [address] [place], [address] RBC (Bld) [#/Vol] 4.25 10*6/uL Normal 4.2-5.4 [facility] Comment on above: Performed By: #### L 100.0100, L500.4050 ####[facility] [address] [place], [address] RDW SD 38.4 fl Normal 35.1-43.9 [facility] Comment on above: Performed By: #### L 100.0100, L500.4050 ####[facility] [address] [place], [address] WBC (Bld) [#/Vol] 10.2 10*3/uL Normal 4.4-11.0 [facility] Comment on above: Performed By: #### L 100.0100, L500.4050 ####[facility] [address] [place], [address] Comprehensive Metabolic Prof [facility] 03-20-2024 Albumin [Mass/Vol] 3.1 g/dL Low 3.2-5.0 [facility] Comment on above: Performed By: #### L 100.0100, L500.4050 ####[facility] [address] [place], [address] Albumin/Globulin [Mass ratio] 0.8 {ratio} Low 0.9-2.4 [facility] Comment on above: Performed By: #### L 100.0100, L500.4050 ####[facility] [address] [place], [address] ALK P 54 U/L Normal 45-117 [facility] Comment on above: Performed By: #### L 100.0100, L500.4050 ####[facility] [address] [place], [address] ALT [Catalytic activity/Vol] 11 U/L Low 13-56 [facility] Comment on above: Performed By: #### L 100.0100, L500.4050 ####[facility] [address] [place], [address] AST [Catalytic activity/Vol] 10 U/L Low 15-37 [facility] Comment on above: Performed By: #### L 100.0100, L500.4050 ####[facility] [address] [place], [address] Bilirubin [Mass/Vol] 0.40 mg/dL Normal 0.20-1.00 [facility] Comment on above: Result Comment: For patients on eltrombopag therapy, use of Dimension [place] TBIL is not recommended. Performed By: #### L 100.0100, L500.4050 ####[facility] [address] [place], [address] BUN/CRE 13.0 RATIO Normal 10-20 [facility] Comment on above: Performed By: #### L 100.0100, L500.4050 ####[facility] [address] [place], [address] CA,Total 10.1 mg/dL Normal 8.5-10.1 [facility] Comment on above: Performed By: #### L 100.0100, L500.4050 ####[facility] [address] [place], [address] Chloride [Moles/Vol] 112 mmol/L High 98-107 [facility] Comment on above: Performed By: #### L 100.0100, L500.4050 ####[facility] [address] [place], [address] CO2 [Moles/Vol] 26.0 mmol/L Normal 21.0-32.0 [facility] Comment on above: Performed By: #### L 100.0100, L500.4050 ####[facility] [address] [place], [address] Creatinine [Mass/Vol] 0.77 mg/dL Normal 0.55-1.02 [facility] Comment on above: Result Comment: The validity of the calculated GFR GFRAA in patients over70 years has not been determined. Clinical correlation isessential. Performed By: #### L 100.0100, L500.4050 ####[facility] [address] [place], [address] ECRCL 43.58 ml/min Normal [facility] Comment on above: Performed By: #### L 100.0100, L500.4050 ####[facility] [address] [place], [address] EST GFR - AA 93 mL/min Normal >60 [facility] Comment on above: Result Comment: Afri can Citizen [place] GFR Calc Performed By: #### L 100.0100, L500.4050 ####[facility] [address] [place], [address] GAP 1 Low 5-15 [facility] Comment on above: Performed By: #### L 100.0100, L500.4050 ####[facility] [address] [place], [address] GFR/1.73 sq M.predicted among non-blacks MDRD (S/P/Bld) [Vol rate/Area] 77 mL/min/{1.73_m2} Normal >60 [facility] Comment on above: Result Comment: Non- GFR Calc Performed By: #### L 100.0100, L500.4050 ####[facility] [address] [place], [address] Globulin (S) [Mass/Vol] 3.9 g/dL Normal 2.2-4.2 [facility] Comment on above: Performed By: #### L 100.0100, L500.4050 ####[facility] [address] [place], [address] Glucose [Mass/Vol] 109 mg/dL High 74-106 [facility] Comment on above: Result Comment: Fast ing Glucose result from 100 to 125 mg/dLsuggests IMPAIRED HOMEOSTASIS per A.D.A. criteria. Performed By: #### L 100.0100, L500.4050 ####[facility] [address] [place], [address] Potassium [Moles/Vol] 3.8 mmol/L Normal 3.5-5.1 [facility] Comment on above: Performed By: #### L 100.0100, L500.4050 ####[facility] [address] [place], [address] Sodium [Moles/Vol] 139 mmol/L Normal 136-145 [facility] Comment on above: Performed By: #### L 100.0100, L500.4050 ####[facility] [address] [place], [address] T PROT 7.0 g/dL Normal 6.4-8.2 [facility] Comment on above: Performed By: #### L 100.0100, L500.4050 ####[facility] [address] [place], [address] Urea nitrogen [Mass/Vol] 10 mg/dL Normal 7-18 [facility] Comment on above: Performed By: #### L 100.0100, L500.4050 ####[facility] [address] [place], [address] Consultation - Infectious Dx on 03-20-2024 Consultation - Infectious Dx Normal [facility] CBC W/Diff, Automatedon - Absolute Lymph 2.73 X10 3/uL Normal 0.83-4.51 [facility] Comment on above: Performed By: #### L 500.4050, L100.0100 ####[facility] [address] [place], [address] Absolute Neut 6.5 X10 3/uL Normal 2.0-7.7 [facility] Comment on above: Performed By: #### L 500.4050, L100.0100 ####[facility] [address] [place], [address] Basophils/100 WBC (Bld) 0.3 % Normal 0-1 [facility] Comment on above: Performed By: #### L 500.4050, L100.0100 ####[facility] [address] [place], [address] Eosinophils/100 WBC (Bld) 0.9 % Normal 0-5 [facility] Comment on above: Performed By: #### L 500.4050, L100.0100 ####[facility] [address] [place], [address] Erythrocyte distribution width (RBC) [Ratio] 12.8 % Normal 11.6-14.6 [facility] Comment on above: Performed By: #### L 500.4050, L100.0100 ####[facility] [address] [place], [address] Hematocrit (Bld) [Volume fraction] 37.5 % Normal 37-47 [facility] Comment on above: Performed By: #### L 500.4050, L100.0100 ####[facility] [address] [place], [address] Hemoglobin (Bld) [Mass/Vol] 12.4 g/dL Normal 12.0-15.0 [facility] Comment on above: Performed By: #### L 500.4050,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 0 SEEN Normal 5-10 [facility] Comment on above: Order Comment: Micro scopic field is filled. Other elements may beobscured.BARREL RIFLER BROACH TO SPECIFY Performed By: #### L 400.0001 ####[facility] [address] [place], [address] Mucus Ql (Urine sed) 0 SEEN Normal [facility] Comment on above: Order Comment: Micro scopic field is filled. Other elements may beobscured.BARREL RIFLER BROACH TO SPECIFY Performed By: #### L 400.0001 ####[facility] [address] [place], [address] RBC 0 SEEN Normal 0-5 [facility] Comment on above: Order Comment: Micro scopic field is filled. Other elements may beobscured.BARREL RIFLER BROACH TO SPECIFY Performed By: #### L 400.0001 ####[facility] [address] [place], [address] Re-Evaluation - PT (1)on Re-Evaluation - PT (1) Normal [facility] SP/HP.SPREEVon 11-26-2023 SP/HP.SPREEV Normal [facility] Re-Evaluation - PT (1)on Re-Evaluation - PT (1) Normal [facility] .Auto Diffon 09-09-2023 Basophil, Absolute 0.1 10 3/mcL Normal 0.0-0.2 [facility] ([place]) Comment on above: Performed By: #### E SR, CBC, ADJULISSA, ANEU #### [address] [address] Basophils/100 WBC (Bld) 0.9 % Normal 0.0-2.5 [facility] ([place]) Comment on above: Performed By: #### E SR, CBC, ADIFF, ANEU #### [address] [address] Eosinophil, Absolute 0.1 10 3/mcL Normal 0.0-0.4 [facility] ([place]) Comment on above: Performed By: #### E SR, CBC, LORELEI, ANEU #### [address] [address] Eosinophils/100 WBC (Bld) 0.8 % Normal 0.0-7.0 [facility] ([place]) Comment on above: Performed By: #### E SR, CBC, ADIFF, ANEU #### [address] [address] Lymphocyte, Absolute 2.5 10 3/mcL Normal 0.8-3.9 [facility] ([place]) Comment on above: Performed By: #### E SR, CBC, ADIFF, ANEU #### [address] [address] Lymphocytes/100 WBC (Bld) 22.8 % Normal 10.0-50.0 [facility] ([place]) Comment on above: Performed By: #### E SR, CBC, ADIFF, ANEU #### [address] [address] Monocyte, Absolute 0.7 10 3/mcL Normal 0.2-1.0 [facility] ([place]) Comment on above: Performed By: #### E SR, CBC, ADIFF, ANEU #### [address] [address] Monocytes/100 WBC (Bld) 6.0 % Normal 1.7-13.0 [facility] ([place]) Comment on above: Performed By: #### E SR, CBC, ADIFF, ANEU #### [address] [address] Neutrophils/100 WBC (Bld) 69.5 % Normal 37.0-80.0 [facility] ([place]) Comment on above: Performed By: #### E SR, CBC, ADIFF, ANEU #### [address] [address] .NEUABSon 09-09-2023 Neutrophil, Absolute 7.8 10 3/mcL High 2.9-6.2 [facility] ([place]) Comment on above: Performed By: #### E SR, CBC, ADIFF, ANEU #### [address] [address] CBCon 09-09-2023 Erythrocyte distribution width (RBC) [Ratio] 17.4 % High 11.5-14.5 [facility] ([place]) Comment on above: Performed By: #### E SR, CBC, ADIFF, ANEU #### [address] [address] Hematocrit (Bld) [Volume fraction] 40.1 % Normal 37.0-47.0 [facility] ([place]) Comment on above: Performed By: #### Ysabel SR, CBCLORELEI, ANEU #### [address] [address] Hgb 13.1 G/dL Normal 12.0-16.0 [facility] ([place]) Comment on above: Performed By: #### E SR, CBC, LORELEI, ANEU #### [address] [address] MCH (RBC) [Entitic mass] 25.6 pg Low 27.0-31.2 [facility] ([place]) Comment on above: Performed By: #### E SR, CBC, LORELEI, ANEU #### [address] [address] MCHC 32.6 G/dL Low 33.0-37.0 [facility] ([place]) Comment on above: Performed By: #### E SR, CBC, ADJULISSA, ANEU #### [address] [address] MCV (RBC) [Entitic vol] 78.4 fL Low 80.0-94.0 [facility] ([place]) Comment on above: Performed By: #### E SR, CBC, LORELEI, ANEU #### [address] [address] Platelet 350 10 3/mcL Normal 130-400 [facility] ([place]) Comment on above: Performed By: #### E SR, CBC, ADJULISSA, ANEU #### [address] [address] Platelet mean volume (Bld) [Entitic vol] 7.8 fL Normal 7.4-10.4 [facility] ([place]) Comment on above: Performed By: #### E SR, CBC, ADIFF, ANEU #### [address] [address] RBC 5.11 10 6/mcL Normal 4.20-5.40 [facility] ([place]) Comment on above: Performed By: #### E SR, CBC, ADIFF, ANEU #### [facility] [address] [place], [place] [address] WBC 11.1 10 3/mcL High 4.6-10.8 [facility] ([place]) Comment on above: Performed By: #### E SR, CBC, ADIFF, ANEU #### Lisa Clare [address] [place], [place] [address] ESRon 09-09-2023 Erythrocyte Sed Rate 34 mm/hr High 0-30 [facility] ([place]) Comment on above: Performed By: #### E SR, CBC, ADIFF, ANEU #### [place] [place], [place] [address] LABORATORYOrdered By: SYSTEM SYSTEM on 09-09-2023 Basophil, Absolute 0.1 103/mcL Normal 0.0 - 0.2 10^3/mcL AO Workflow SS Basophils/100 WBC (Bld) 0.9 % Normal 0.0 - 2.5 % AO Workflow SS Eosinophil, Absolute 0.1 103/mcL Normal 0.0 - 0 .4 10^3/mcL AO Workflow SS Eosinophils/100 WBC (Bld) 0.8 % Normal 0.0 - 7.0 % AO Workflow SS Erythrocyte distribution width (RBC) [Ratio] 17.4 % High 11.5 - 14.5 % AO Workflow SS Hematocrit (Bld) [Volume fraction] 40.1 % Normal 37.0 - 47.0 % AO Workflow SS Hemoglobin (Bld) [Mass/Vol] 13.1 G/dL Normal 12.0 - 16.0 G/dL AO Workflow SS Lymphocyte, Absolute 2.5 103/mcL Normal 0.8 - 3 .9 10^3/mcL AO Workflow SS Lymphocytes/100 WBC (Bld) 22.8 % Normal 10.0 - 50.0 % AO Workflow SS MCH (RBC) [Entitic mass] 25.6 pg Low 27.0 - 31.2 pg AO Workflow SS MCHC 32.6 G/dL Low 33.0 - 37.0 G/dL AO Workflow SS MCV (RBC) [Entitic vol] 78.4 fL Low 80.0 - 94.0 fL AO Workflow SS Monocyte, Absolute 0.7 103/mcL Normal 0.2 - 1.0 10^3/mcL AO Workflow SS Monocytes/100 WBC (Bld) 6.0 % Normal 1.7 - 13.0 % AO Workflow SS Neutrophil, Absolute 7.8 103/mcL High 2.9 - 6 .2 10^3/mcL AO Workflow SS Neutrophils/100 WBC (Bld) 69.5 % Normal 37.0 - 80.0 % AO Workflow SS Platelet mean volume (Bld) [Entitic vol] 7.8 fL Normal 7.4 - 10.4 fL AO Workflow SS Platelets (Bld) [#/Vol] 350 103/mcL Normal 130 - 400 10^3/mcL AO Workflow SS RBC (Bld) [#/Vol] 5.11 106/mcL Normal 4.20 - 5.40 10^6/mcL AO Workflow SS WBC (Bld) [#/Vol] 11.1 103/mcL High 4.6 - 10.8 10^3/mcL AO Workflow SS LABORATORYOrdered By: Fantasma correia on 09-09-2023 ESR Photometric method (Bld) [Velocity] 34 mm/hr High 0 - 30 mm/hr AO Man Heme SS SP/HP.SP.Bhaskar 09-03-2023 SP/HP.SP.EV Normal [facility] Inital Evaluation (1) - PTon 08-27-2023 Inital Evaluation (1) - PT Normal [facility] Basic Metabolic Profile (BMP )on 07-27-2023 BUN/CRE 21.7 RATIO High 10-20 [facility] Comment on above: Performed By: #### L 501.8820, L101.9900, L100.0500, L500.2500 ####[facility] [address] [place], [address] CA,Total 9.8 mg/dL Normal 8.5-10.1 [facility] Comment on above: Performed By: #### L 501.8820, L101.9900, L100.0500, L500.2500 ####[facility] [address] [place], [address] Chloride [Moles/Vol] 109 mmol/L High 98-107 [facility] Comment on above: Performed By: #### L 501.8820, L101.9900, L100.0500, L500.2500 ####[facility] [address] [place], [address] CO2 [Moles/Vol] 27.0 mmol/L Normal 21.0-32.0 [facility] Comment on above: Performed By: #### L 501.8820, L101.9900, L100.0500, L500.2500 ####[facility] [address] [place], [address] Creatinine [Mass/Vol] 0.88 mg/dL Normal 0.55-1.02 [facility] Comment on above: Result Comment: The validity of the calculated GFR GFRAA in patients over70 years has not been determined. Clinical correlation isessential. Performed By: #### L 501.8820, L101.9900, L100.0500, L500.2500 ####[facility] [address] [place], [address] EST GFR - AA 80 mL/min Normal >60 [facility] Comment on above: Result Comment: Afri can [place] GFR Calc Performed By: #### L 501.8820, L101.9900, L100.0500, L500.2500 ####[facility] [address] [place], [address] GAP 3 Low 5-15 [facility] Comment on above: Performed By: #### L 501.8820, L101.9900, L100.0500, L500.2500 ####[facility] [address] [place], [address] GFR/1.73 sq M.predicted among non-blacks MDRD (S/P/Bld) [Vol rate/Area] 66 mL/min/{1.73_m2} Normal >60 [facility] Comment on above: Result Comment: Non- GFR Calc Performed By: #### L 501.8820, L101.9900, L100.0500, L500.2500 ####[facility] [address] [place], [address] Glucose [Mass/Vol] 113 mg/dL High 74-106 [facility] Comment on above: Result Comment: Fast ing Glucose result from 100 to 125 mg/dLsuggests IMPAIRED HOMEOSTASIS per A.D.A. criteria. Performed By: #### L 501.8820, L101.9900, L100.0500, L500.2500 ####[facility] [address] [place], [address] Potassium [Moles/Vol] 3.9 mmol/L Normal 3.5-5.1 [facility] Comment on above: Performed By: #### L 501.8820, L101.9900, L100.0500, L500.2500 ####[facility] [address] [place], [address] Sodium [Moles/Vol] 139 mmol/L Normal 136-145 [facility] Comment on above: Performed By: #### L 501.8820, L101.9900, L100.0500, L500.2500 ####[facility] [address] [place], [address] Urea nitrogen [Mass/Vol] 19 mg/dL High 7-18 [facility] Comment on above: Performed By: #### L 501.8820, L101.9900, L100.0500, L500.2500 ####[facility] [address] [place], [address] Basophil percentageOrdered B y: Sulma Alexander on 07-27-2023 Chloride [Moles/Vol] 109 mmol/L 98-107 [facility] Glucose [Mass/Vol] 113 mg/dL 74-106 [facility] Comment on above: Fasting Glucose resu lt from 100 to 125 mg/dL suggests IMPAIRED HOMEOSTASIS per A.D.A. criteria. Hemoglobin (Bld) [Mass/Vol] 10.1 g/dL 12.0-15.0 [facility] Potassium [Moles/Vol] 3.9 mmol/L 3.5-5.1 [facility] Sodium [Moles/Vol] 139 mmol/L 136-145 [facility] WBC (Bld) [#/Vol] 10.1 10*3/uL 4.4-11.0 [facility] CBC-Complete Blood Cnt No Di ffon 07-27-2023 Erythrocyte distribution width (RBC) [Ratio] 15.9 % High 11.6-14.6 [facility] Comment on above: Performed By: #### L 501.8820, L101.9900, L100.0500, L500.2500 ####[facility] [address] [place], [address] Hematocrit (Bld) [Volume fraction] 33.6 % Low 37-47 [facility] Comment on above: Performed By: #### L 501.8820, L101.9900, L100.0500, L500.2500 ####[facility] [address] [place], [address] Hemoglobin (Bld) [Mass/Vol] 10.1 g/dL Low 12.0-15.0 [facility] Comment on above: Performed By: #### L 501.8820, L101.9900, L100.0500, L500.2500 ####[facility] [address] [place], [address] MCH (RBC) [Entitic mass] 24.0 pg Low 27.0-32.0 [facility] Comment on above: Performed By: #### L 501.8820, L101.9900, L100.0500, L500.2500 ####[facility] [address] [place], [address] MCHC (RBC) [Mass/Vol] 30.1 g/dL Low 32-36 [facility] Comment on above: Performed By: #### L 501.8820, L101.9900, L100.0500, L500.2500 ####[facility] [address] [place], [address] MCV (RBC) [Entitic vol] 79.8 fL Low 81-99 [facility] Comment on above: Performed By: #### L 501.8820, L101.9900, L100.0500, L500.2500 ####[facility] [address] [place], [address] Platelet mean volume (Bld) [Entitic vol] 9.3 fL Normal 6.2-12.0 [facility] Comment on above: Performed By: #### L 501.8820, L101.9900, L100.0500, L500.2500 ####[facility] [address] [place], [address] Platelets (Bld) [#/Vol] 347 10*3/uL Normal 150-450 [facility] Comment on above: Performed By: #### L 501.8820, L101.9900, L100.0500, L500.2500 ####[facility] [address] [place], [address] RBC (Bld) [#/Vol] 4.21 10*6/uL Normal 4.2-5.4 [facility] Comment on above: Performed By: #### L 501.8820, L101.9900, L100.0500, L500.2500 ####[facility] [address] [place], [address] RDW SD 45.4 fl High 35.1-43.9 [facility] Comment on above: Performed By: #### L 501.8820, L101.9900, L100.0500, L500.2500 ####[facility] [address] [place], [address] WBC (Bld) [#/Vol] 10.1 10*3/uL Normal 4.4-11.0 [facility] Comment on above: Performed By: #### L 501.8820, L101.9900, L100.0500, L500.2500 ####[facility] [address] [place], [place], [address] Determination of erythrocyte mean corpuscular volume (MCV)Ordered By: Sulma Alexander on 07-27-2023 MCV (RBC) [Entitic vol] 79.8 fL 81-99 [facility] Erythrocyte Sed Rateon 07-26 SED RATE 23 mm/hr Normal 0-30 [facility] Comment on above: Performed By: #### L 501.8820, L101.9900, L100.0500, L500.2500 ####[facility] [address] [place], [place], [address] Erythrocyte distribution wid th ratioOrdered By: Sulma Alexander on 07-27-2023 Erythrocyte distribution width (RBC) [Ratio] 15.9 % 11.6-14.6 [facility] Erythrocyte distribution wid th standard deviationOrdered By: Sulma Alexander on 07-27-2023 Erythrocyte distribution width (RBC) [Entitic vol] 45.4 fL 35.1-43.9 [facility] Erythrocyte sedimentation ra teOrdered By: Sulma Alexander on 07-27-2023 ESR (Bld) [Velocity] 23 mm/h 0-30 [facility] Hematocrit Auto (Bld) [Volum e fraction]Ordered By: Sulma Alexander on 07-27-2023 Hematocrit (Bld) [Volume fraction] 33.6 % 37-47 [facility] Laboratory - Chemistry and C hemistry - challengeOrdered By: Sulma Alexander on 07-27-2023 CO2 [Moles/Vol] 27.0 mmol/L 21.0-32.0 [facility] Urea nitrogen/Creatinine [Mass ratio] 21.7 mg/mg 10-20 [facility] Laboratory - Hematology and Cell countsOrdered By: Sulma Alexander on 07-27-2023 MCH (RBC) [Entitic mass] 24.0 pg 27.0-32.0 [facility] MCHC (RBC) [Mass/Vol] 30.1 g/dL 32-36 [facility] Platelet mean volume (Bld) [Entitic vol] 9.3 fL 6.2-12.0 [facility] Platelets (Bld) [#/Vol] 347 10*3/uL 150-450 [facility] No Panel InformationOrdered By: Sulma Alexander on 07-27-2023 Estimated GFR (MDRD) Amer 80 mL/min >60 [facility] Comment on above: GFR Calc Estimated GFR (MDRD) Non-Af Amer 66 mL/min >60 [facility] Comment on above: Non- GFR Calc RBC Auto (Bld) [#/Vol]Ordere d By: Sulma Alexander on 07-27-2023 RBC (Bld) [#/Vol] 4.21 10*6/uL 4.2-5.4 [facility] Serum or plasma calcium surjit urement (mass/volume)Ordered By: Sulma Alexander on 07-27-2023 Calcium [Mass/Vol] 9.8 mg/dL 8.5-10.1 [facility] Serum or plasma creatinine m easurement (mass/volume)Ordered By: Sulma Alexander on 07-27-2023 Creatinine [Mass/Vol] 0.88 mg/dL 0.55-1.02 [facility] Comment on above: The validity of the calculated GFR & GFRAA in patients over 70 years has not been determined. Clinical correlation is essential. Serum or plasma trough vanco mycin levelOrdered By: Sulma Alexander on 07-27-2023 Vancomycin trough [Mass/Vol] 21.1 ug/mL 5.0-15.0 [facility] Comment on above: VANCOMYCIN STANDARED DRUG THERAPY TROUGH LEVEL: 5.0 - 15.0 mg/L VANCOMYCIN HIGH INTENSITY THERAPY TROUGH LEVEL: 15.0 - 20.0 mg/L High Intensity therapy recommended for serious lifethreatening infections include:- Zmhgipixxr-Mftbgdxpttau-Xsomqtlxh (Ventilator/Healtcare Associated)-Sepsis PLEASE CONTACT PHARMACY SERVICES (#[id number]) FOR INTERPRETATIONOF RESULTS. Serum or plasma urea nitroge n measurement (mass/volume)Ordered By: Sulma Alexander on 07-27-2023 Urea nitrogen [Mass/Vol] 19 mg/dL 7-18 [facility] Thin prep Papanicolaou smear with manual screeningOrdered By: Sulma Alexander on 07-27-2023 Thin prep Papanicolaou smear with manual screening 3 5-15 [facility] Vancomycin, Trough Levelon 0 07-27-2023 VANCO, TROUGH 21.1 ug/mL High 5.0-15.0 [facility] Comment on above: Order Comment: 1150 Result Comment: VANC OMYCIN STANDARED DRUG THERAPY TROUGH LEVEL: 5.0 - 15.0 mg/LVANCOMYCIN HIGH INTENSITY THERAPY TROUGH LEVEL: 15.0 - 20.0 mg/LHigh Intensity therapy recommended for serious lifethreatening infections include:- Zxrlvopmkx-Gkbghubvpvjh-Jxhiaqeyo (Ventilator/Healtcare Associated)-SepsisPLEASE CONTACT PHARMACY SERVICES (#[id number]) FOR INTERPRETATIONOF RESULTS. Performed By: #### L 501.8820, L101.9900, L100.0500, L500.2500 ####[facility] [address] [place], [place], [id number] Absolute lymphocyte countOrd ered By: Sulma Alexander on 07-20-2023 Lymphocytes Auto (Unsp spec) [#/Vol] 2.44 10*3/uL 0.83-4.51 [facility] Automated lymphocyte count a s percentage of total leukocytesOrdered By: Sulma Alexander on 07-20-2023 Lymphocytes/100 WBC Auto (Unsp spec) 25.5 % 19-41 [facility] Basic Metabolic Profile (BMP )on 07-20-2023 BUN/CRE 26.9 RATIO High 10-20 [facility] Comment on above: Performed By: #### L 501.8820, L100.0100, L101.9900, L500.2500 ####[facility] [address] [place], [place], [address] CA,Total 9.8 mg/dL Normal 8.5-10.1 [facility] Comment on above: Performed By: #### L 501.8820, L100.0100, L101.9900, L500.2500 ####[facility] [address] [place], [address] Chloride [Moles/Vol] 109 mmol/L High 98-107 [facility] Comment on above: Performed By: #### L 501.8820, L100.0100, L101.9900, L500.2500 ####[facility] [address] [place], [address] CO2 [Moles/Vol] 27.0 mmol/L Normal 21.0-32.0 [facility] Comment on above: Performed By: #### L 501.8820, L100.0100, L101.9900, L500.2500 ####[facility] [address] [place], [address] Creatinine [Mass/Vol] 0.67 mg/dL Normal 0.55-1.02 [facility] Comment on above: Result Comment: The validity of the calculated GFR GFRAA in patients over70 years has not been determined. Clinical correlation isessential. Performed By: #### L 501.8820, L100.0100, L101.9900, L500.2500 ####[facility] [address] [place], [address] EST GFR - AA 109 mL/min Normal >60 [facility] Comment on above: Result Comment: Afri can Citizen [place] GFR Calc Performed By: #### L 501.8820, L100.0100, L101.9900, L500.2500 ####[facility] [address] [place], [address] GAP 4 Low 5-15 [facility] Comment on above: Performed By: #### L 501.8820, L100.0100, L101.9900, L500.2500 ####[facility] [address] [place], [address] GFR/1.73 sq M.predicted among non-blacks MDRD (S/P/Bld) [Vol rate/Area] 90 mL/min/{1.73_m2} Normal >60 [facility] Comment on above: Result Comment: Non- GFR Calc Performed By: #### L 501.8820, L100.0100, L101.9900, L500.2500 ####[facility] [address] [place], [address] Glucose [Mass/Vol] 99 mg/dL Normal 74-106 [facility] Comment on above: Performed By: #### L 501.8820, L100.0100, L101.9900, L500.2500 ####[facility] [address] [place], [address] Potassium [Moles/Vol] 4.0 mmol/L Normal 3.5-5.1 [facility] Comment on above: Performed By: #### L 501.8820, L100.0100, L101.9900, L500.2500 ####[facility] [address] [place], [address] Sodium [Moles/Vol] 140 mmol/L Normal 136-145 [facility] Comment on above: Performed By: #### L 501.8820, L100.0100, L101.9900, L500.2500 ####[facility] [address] [place], [address] Urea nitrogen [Mass/Vol] 18 mg/dL Normal 7-18 [facility] Comment on above: Performed By: #### L 501.8820, L100.0100, L101.9900, L500.2500 ####[facility] [address] [place], [address] Basophil percentageOrdered B y: Sulma Alexander on 07-20-2023 Basophils/100 WBC (Bld) 0.4 % 0-1 [facility] Chloride [Moles/Vol] 109 mmol/L 98-107 [facility] Eosinophils/100 WBC (Bld) 1.6 % 0-5 [facility] Glucose [Mass/Vol] 99 mg/dL 74-106 [facility] Hemoglobin (Bld) [Mass/Vol] 9.7 g/dL 12.0-15.0 [facility] Monocytes/100 WBC (Bld) 9.6 % 0-10 [facility] Neutrophils (Bld) [#/Vol] 6.0 10*3/uL 2.0-7.7 [facility] Neutrophils/100 WBC (Bld) 62.4 % 47-70 [facility] Potassium [Moles/Vol] 4.0 mmol/L 3.5-5.1 [facility] Sodium [Moles/Vol] 140 mmol/L 136-145 [facility] WBC (Bld) [#/Vol] 9.6 10*3/uL 4.4-11.0 [facility] CBC W/Diff, Automatedon 04-3 0-2023 Absolute Lymph 2.44 X10 3/uL Normal 0.83-4.51 [facility] Comment on above: Performed By: #### L 501.8820, L100.0100, L101.9900, L500.2500 ####[facility] [address] [place], [address] Absolute Neut 6.0 X10 3/uL Normal 2.0-7.7 [facility] Comment on above: Performed By: #### L 501.8820, L100.0100, L101.9900, L500.2500 ####[facility] [address] [place], [address] Basophils/100 WBC (Bld) 0.4 % Normal 0-1 [facility] Comment on above: Performed By: #### L 501.8820, L100.0100, L101.9900, L500.2500 ####[facility] [address] [place], [address] Eosinophils/100 WBC (Bld) 1.6 % Normal 0-5 [facility] Comment on above: Performed By: #### L 501.8820, L100.0100, L101.9900, L500.2500 ####[facility] [address] [place], [address] Erythrocyte distribution width (RBC) [Ratio] 15.3 % High 11.6-14.6 [facility] Comment on above: Performed By: #### L 501.8820, L100.0100, L101.9900, L500.2500 ####[facility] [address] [place], [address] Hematocrit (Bld) [Volume fraction] 31.8 % Low 37-47 [facility] Comment on above: Performed By: #### L 501.8820, L100.0100, L101.9900, L500.2500 ####[facility] [address] [place], [address] Hemoglobin (Bld) [Mass/Vol] 9.7 g/dL Low 12.0-15.0 [facility] Comment on above: Performed By: #### L 501.8820, L100.0100, L101.9900, L500.2500 ####[facility] [address] [place], [address] IG% 0.500 Normal 0.0-0.9 [facility] Comment on above: Result Comment: IG% - Immature Granulocytes (promyelocytes, myelocytes andmetamyelocytes) > 1% indicates that a LEFT SHIFT is Present. Performed By: #### L 501.8820, L100.0100, L101.9900, L500.2500 ####[facility] [address] [place], [address] Lymphocytes/100 WBC (Bld) 25.5 % Normal 19-41 [facility] Comment on above: Performed By: #### L 501.8820, L100.0100, L101.9900, L500.2500 ####[facility] [address] [place], [address] MCH (RBC) [Entitic mass] 24.1 pg Low 27.0-32.0 [facility] Comment on above: Performed By: #### L 501.8820, L100.0100, L101.9900, L500.2500 ####[facility] [address] [place], [address] MCHC (RBC) [Mass/Vol] 30.5 g/dL Low 32-36 [facility] Comment on above: Performed By: #### L 501.8820, L100.0100, L101.9900, L500.2500 ####[facility] [address] [place], [address] MCV (RBC) [Entitic vol] 79.1 fL Low 81-99 [facility] Comment on above: Performed By: #### L 501.8820, L100.0100, L101.9900, L500.2500 ####[facility] [address] [place], [address] Monocytes/100 WBC (Bld) 9.6 % Normal 0-10 [facility] Comment on above: Performed By: #### L 501.8820, L100.0100, L101.9900, L500.2500 ####[facility] [address] [place], [address] Neutrophils/100 WBC (Bld) 62.4 % Normal 47-70 [facility] Comment on above: Performed By: #### L 501.8820, L100.0100, L101.9900, L500.2500 ####[facility] [address] [place], [address] Nucleated RBC (Bld) [#/Vol] 0 10*3/uL Normal 0-5 [facility] Comment on above: Performed By: #### L 501.8820, L100.0100, L101.9900, L500.2500 ####[facility] [address] [place], [address] Platelet mean volume (Bld) [Entitic vol] 9.1 fL Normal 6.2-12.0 [facility] Comment on above: Performed By: #### L 501.8820, L100.0100, L101.9900, L500.2500 ####[facility] [address] [place], [address] Platelets (Bld) [#/Vol] 393 10*3/uL Normal 150-450 [facility] Comment on above: Performed By: #### L 501.8820, L100.0100, L101.9900, L500.2500 ####[facility] [address] [place], [address] RBC (Bld) [#/Vol] 4.02 10*6/uL Low 4.2-5.4 [facility] Comment on above: Performed By: #### L 501.8820, L100.0100, L101.9900, L500.2500 ####[facility] [address] [place], [address] RDW SD 43.8 fl Normal 35.1-43.9 [facility] Comment on above: Performed By: #### L 501.8820, L100.0100, L101.9900, L500.2500 ####[facility] [address] [place], [address] WBC (Bld) [#/Vol] 9.6 10*3/uL Normal 4.4-11.0 [facility] Comment on above: Performed By: #### L [id number], L100.0100, L101.9900, L500.2500 ####[facility] [address] [place], [address] Determination of erythrocyte mean corpuscular volume (MCV)Ordered By: Sulma Alexander on 07-20-2023 MCV (RBC) [Entitic vol] 79.1 fL 81-99 [facility] Erythrocyte Sed Rateon 07-19 SED RATE 21 mm/hr Normal 0- [facility] Comment on above: Performed By: #### L 501.8820, L100.0100, L101.9900, L500.2500 ####[facility] [address] [place], [address] Erythrocyte distribution wid th ratioOrdered By: Sulma Alexander on 07-20-2023 Erythrocyte distribution width (RBC) [Ratio] 15.3 % 11.6-14.6 [facility] Erythrocyte distribution wid th standard deviationOrdered By: Sulma Alexander on 07-20-2023 Erythrocyte distribution width (RBC) [Entitic vol] 43.8 fL 35.1-43.9 [facility] Erythrocyte sedimentation ra teOrdered By: Sulma Alexander on 07-20-2023 ESR (Bld) [Velocity] 21 mm/h 0- [facility] Hematocrit Auto (Bld) [Volum e fraction]Ordered By: Sulma Alexander on 07-20-2023 Hematocrit (Bld) [Volume fraction] 31.8 % 37-47 [facility] Immature granulocytes/100 WB C Auto (Bld)Ordered By: Sulma Alexander on 07-20-2023 Immature granulocytes/100 WBC (Bld) 0.500 % 0.0-0.9 [facility] Comment on above: IG% - Immature Granu locytes (promyelocytes, myelocytes and metamyelocytes) > 1% indicates that a LEFT SHIFT is Present. Laboratory - Chemistry and C hemistry - challengeOrdered By: Sulma Alexander on 07-20-2023 CO2 [Moles/Vol] 27.0 mmol/L 21.0-32.0 [facility] Urea nitrogen/Creatinine [Mass ratio] 26.9 mg/mg 10- [facility] Laboratory - Hematology and Cell countsOrdered By: Sulma Alexander on 07-20-2023 MCH (RBC) [Entitic mass] 24.1 pg 27.0-32.0 [facility] MCHC (RBC) [Mass/Vol] 30.5 g/dL 32-36 [facility] Nucleated RBC/100 WBC (Bld) [Ratio] 0 % 0-5 [facility] Platelet mean volume (Bld) [Entitic vol] 9.1 fL 6.2-12.0 [facility] Platelets (Bld) [#/Vol] 393 10*3/uL 150-450 [facility] No Panel InformationOrdered By: Sulma Alexander on 07-20-2023 Estimated GFR (MDRD) Amer 109 mL/min >60 [facility] Comment on above: GFR Calc Estimated GFR (MDRD) Non-Af Amer 90 mL/min >60 [facility] Comment on above: Non- GFR Calc RBC Auto (Bld) [#/Vol]Ordere d By: Sulma Alexander on 07-20-2023 RBC (Bld) [#/Vol] 4.02 10*6/uL 4.2-5.4 [facility] Serum or plasma calcium surjit urement (mass/volume)Ordered By: Sulma Alexander on 07-20-2023 Calcium [Mass/Vol] 9.8 mg/dL 8.5-10.1 [facility] Serum or plasma creatinine m easurement (mass/volume)Ordered By: Sulma Alexander on 07-20-2023 Creatinine [Mass/Vol] 0.67 mg/dL 0.55-1.02 [facility] Comment on above: The validity of the calculated GFR & GFRAA in patients over 70 years has not been determined. Clinical correlation is essential. Serum or plasma trough vanco mycin levelOrdered By: Sulma Alexander on 07-20-2023 Vancomycin trough [Mass/Vol] 18.2 ug/mL 5.0-15.0 [facility] Comment on above: VANCOMYCIN STANDARED DRUG THERAPY TROUGH LEVEL: 5.0 - 15.0 mg/L VANCOMYCIN HIGH INTENSITY THERAPY TROUGH LEVEL: 15.0 - 20.0 mg/L High Intensity therapy recommended for serious lifethreatening infections include:- Eactkpbbof-Jnmuzywdmdwc-Dmjfglpdh (Ventilator/Healtcare Associated)-Sepsis PLEASE CONTACT PHARMACY SERVICES (#[id number]) FOR INTERPRETATIONOF RESULTS. Serum or plasma urea nitroge n measurement (mass/volume)Ordered By: Sulma Alexander on 07-20-2023 Urea nitrogen [Mass/Vol] 18 mg/dL 7-18 [facility] Thin prep Papanicolaou smear with manual screeningOrdered By: Sulma Alexander on 07-20-2023 Thin prep Papanicolaou smear with manual screening 4 5-15 [facility] Vancomycin, Trough Levelon 0 07-20-2023 VANCO, TROUGH 18.2 ug/mL High 5.0-15.0 [facility] Comment on above: Order Comment: 0000 Result Comment: VANC OMYCIN STANDARED DRUG THERAPY TROUGH LEVEL: 5.0 - 15.0 mg/LVANCOMYCIN HIGH INTENSITY THERAPY TROUGH LEVEL: 15.0 - 20.0 mg/LHigh Intensity therapy recommended for serious lifethreatening infections include:- Hnwedxgzkl-Rjmpqmmamlyv-Nylxhezla (Ventilator/Healtcare Associated)-SepsisPLEASE CONTACT PHARMACY SERVICES (#[id number]) FOR INTERPRETATIONOF RESULTS. Performed By: #### L 501.8820, L100.0100, L101.9900, L500.2500 ####[facility] [address] [place], [address] Basic Metabolic Profile (BMP )on 07-13-2023 BUN/CRE 24.3 RATIO High 10-20 [facility] Comment on above: Performed By: #### L 101.9900, L500.2500, L501.8820, L100.0500 ####[facility] [address] [place], [address] CA,Total 10.0 mg/dL Normal 8.5-10.1 [facility] Comment on above: Performed By: #### L 101.9900, L500.2500, L501.8820, L100.0500 ####[facility] [address] [place], [address] Chloride [Moles/Vol] 107 mmol/L Normal 98-107 [facility] Comment on above: Performed By: #### L 101.9900, L500.2500, L501.8820, L100.0500 ####[facility] [address] [place], [address] CO2 [Moles/Vol] 27.0 mmol/L Normal 21.0-32.0 [facility] Comment on above: Performed By: #### L 101.9900, L500.2500, L501.8820, L100.0500 ####[facility] [address] [place], [address] Creatinine [Mass/Vol] 0.74 mg/dL Normal 0.55-1.02 [facility] Comment on above: Result Comment: The validity of the calculated GFR GFRAA in patients over70 years has not been determined. Clinical correlation isessential. Performed By: #### L 101.9900, L500.2500, L501.8820, L100.0500 ####[facility] [address] [place], [address] EST GFR - AA 97 mL/min Normal >60 [facility] Comment on above: Result Comment: Afri can Citizen [place] GFR Calc Performed By: #### L 101.9900, L500.2500, L501.8820, L100.0500 ####[facility] [address] [place], [address] GAP 3 Low 5-15 [facility] Comment on above: Performed By: #### L 101.9900, L500.2500, L501.8820, L100.0500 ####[facility] [address] [place], [address] GFR/1.73 sq M.predicted among non-blacks MDRD (S/P/Bld) [Vol rate/Area] 80 mL/min/{1.73_m2} Normal >60 [facility] Comment on above: Result Comment: Non- GFR Calc Performed By: #### L 101.9900, L500.2500, L501.8820, L100.0500 ####[facility] [address] [place], [address] Glucose [Mass/Vol] 113 mg/dL High 74-106 [facility] Comment on above: Result Comment: Fast ing Glucose result from 100 to 125 mg/dLsuggests IMPAIRED HOMEOSTASIS per A.D.A. criteria. Performed By: #### L 101.9900, L500.2500, L501.8820, L100.0500 ####[facility] [address] [place], [address] Potassium [Moles/Vol] 3.9 mmol/L Normal 3.5-5.1 [facility] Comment on above: Performed By: #### L 101.9900, L500.2500, L501.8820, L100.0500 ####[facility] [address] [place], [address] Sodium [Moles/Vol] 137 mmol/L Normal 136-145 [facility] Comment on above: Performed By: #### L 101.9900, L500.2500, L501.8820, L100.0500 ####[facility] [address] [place], [address] Urea nitrogen [Mass/Vol] 18 mg/dL Normal 7-18 [facility] Comment on above: Performed By: #### L 101.9900, L500.2500, L501.8820, L100.0500 ####[facility] [address] [place], [address] Basophil percentageOrdered B y: Sulma Alexander on 07-13-2023 Chloride [Moles/Vol] 107 mmol/L 98-107 [facility] Glucose [Mass/Vol] 113 mg/dL 74-106 [facility] Comment on above: Fasting Glucose resu lt from 100 to 125 mg/dL suggests IMPAIRED HOMEOSTASIS per A.D.A. criteria. Hemoglobin (Bld) [Mass/Vol] 9.6 g/dL 12.0-15.0 [facility] Potassium [Moles/Vol] 3.9 mmol/L 3.5-5.1 [facility] Sodium [Moles/Vol] 137 mmol/L 136-145 [facility] WBC (Bld) [#/Vol] 9.7 10*3/uL 4.4-11.0 [facility] CBC-Complete Blood Cnt No Claudia velarde 07-13-2023 Erythrocyte distribution width (RBC) [Ratio] 15.1 % High 11.6-14.6 [facility] Comment on above: Performed By: #### L 101.9900, L500.2500, L501.8820, L100.0500 ####[facility] [address] [place], [address] Hematocrit (Bld) [Volume fraction] 31.4 % Low 37-47 [facility] Comment on above: Performed By: #### L 101.9900, L500.2500, L501.8820, L100.0500 ####[facility] [address] [place], [address] Hemoglobin (Bld) [Mass/Vol] 9.6 g/dL Low 12.0-15.0 [facility] Comment on above: Performed By: #### L 101.9900, L500.2500, L501.8820, L100.0500 ####[facility] [address] [place], [address] MCH (RBC) [Entitic mass] 24.2 pg Low 27.0-32.0 [facility] Comment on above: Performed By: #### L 101.9900, L500.2500, L501.8820, L100.0500 ####[facility] [address] [place], [address] MCHC (RBC) [Mass/Vol] 30.6 g/dL Low 32-36 [facility] Comment on above: Performed By: #### L 101.9900, L500.2500, L501.8820, L100.0500 ####[facility] [address] [place], [address] MCV (RBC) [Entitic vol] 79.3 fL Low 81-99 [facility] Comment on above: Performed By: #### L 101.9900, L500.2500, L501.8820, L100.0500 ####[facility] [address] [place], [address] Platelet mean volume (Bld) [Entitic vol] 8.4 fL Normal 6.2-12.0 [facility] Comment on above: Performed By: #### L 101.9900, L500.2500, L501.8820, L100.0500 ####[facility] [address] [place], [address] Platelets (Bld) [#/Vol] 407 10*3/uL Normal 150-450 [facility] Comment on above: Performed By: #### L 101.9900, L500.2500, L501.8820, L100.0500 ####[facility] [address] [place], [address] RBC (Bld) [#/Vol] 3.96 10*6/uL Low 4.2-5.4 [facility] Comment on above: Performed By: #### L 101.9900, L500.2500, L501.8820, L100.0500 ####[facility] [address] [place], [address] RDW SD 43.7 fl Normal 35.1-43.9 [facility] Comment on above: Performed By: #### L 101.9900, L500.2500, L501.8820, L100.0500 ####[facility] [address] [place], [address] WBC (Bld) [#/Vol] 9.7 10*3/uL Normal 4.4-11.0 [facility] Comment on above: Performed By: #### L 101.9900, L500.2500, L501.8820, L100.0500 ####[facility] [address] [place], [place], [address] Determination of erythrocyte mean corpuscular volume (MCV)Ordered By: Sulma Alexander on 07-13-2023 MCV (RBC) [Entitic vol] 79.3 fL 81-99 [facility] Erythrocyte Sed Rateon 07-12 SED RATE 30 mm/hr Normal 0-30 [facility] Comment on above: Performed By: #### L 101.9900, L500.2500, L501.8820, L100.0500 ####[facility] [address] [place], [place], [address] Erythrocyte distribution wid th ratioOrdered By: Sulma Alexander on 07-13-2023 Erythrocyte distribution width (RBC) [Ratio] 15.1 % 11.6-14.6 [facility] Erythrocyte distribution wid th standard deviationOrdered By: Sulma Alexander on 07-13-2023 Erythrocyte distribution width (RBC) [Entitic vol] 43.7 fL 35.1-43.9 [facility] Erythrocyte sedimentation ra teOrdered By: Sulma Alexander on 07-13-2023 ESR (Bld) [Velocity] 30 mm/h 0-30 [facility] Hematocrit Auto (Bld) [Volum e fraction]Ordered By: Sulma Alexander on 07-13-2023 Hematocrit (Bld) [Volume fraction] 31.4 % 37-47 [facility] Laboratory - Chemistry and C hemistry - challengeOrdered By: Sulma Alexander on 07-13-2023 CO2 [Moles/Vol] 27.0 mmol/L 21.0-32.0 [facility] Urea nitrogen/Creatinine [Mass ratio] 24.3 mg/mg 10-20 [facility] Laboratory - Hematology and Cell countsOrdered By: Sulma Alexander on 07-13-2023 MCH (RBC) [Entitic mass] 24.2 pg 27.0-32.0 [facility] MCHC (RBC) [Mass/Vol] 30.6 g/dL 32-36 [facility] Platelet mean volume (Bld) [Entitic vol] 8.4 fL 6.2-12.0 [facility] Platelets (Bld) [#/Vol] 407 10*3/uL 150-450 [facility] No Panel InformationOrdered By: Sulma Alexander on 07-13-2023 Estimated GFR (MDRD) Amer 97 mL/min >60 [facility] Comment on above: GFR Calc Estimated GFR (MDRD) Non-Af Amer 80 mL/min >60 [facility] Comment on above: Non- GFR Calc RBC Auto (Bld) [#/Vol]Ordere d By: Sulma Alexander on 07-13-2023 RBC (Bld) [#/Vol] 3.96 10*6/uL 4.2-5.4 [facility] Serum or plasma calcium surjit urement (mass/volume)Ordered By: Sulma Alexander on 07-13-2023 Calcium [Mass/Vol] 10.0 mg/dL 8.5-10.1 [facility] Serum or plasma creatinine m easurement (mass/volume)Ordered By: Sulma Alexnader on 07-13-2023 Creatinine [Mass/Vol] 0.74 mg/dL 0.55-1.02 [facility] Comment on above: The validity of the calculated GFR & GFRAA in patients over 70 years has not been determined. Clinical correlation is essential. Serum or plasma trough vanco mycin levelOrdered By: Sulma Alexander on 07-13-2023 Vancomycin trough [Mass/Vol] 17.7 ug/mL 5.0-15.0 [facility] Comment on above: VANCOMYCIN STANDARED DRUG THERAPY TROUGH LEVEL: 5.0 - 15.0 mg/L VANCOMYCIN HIGH INTENSITY THERAPY TROUGH LEVEL: 15.0 - 20.0 mg/L High Intensity therapy recommended for serious lifethreatening infections include:- Jxapyzwmle-Aahgsunvpued-Zyhwcuqwg (Ventilator/Healtcare Associated)-Sepsis PLEASE CONTACT PHARMACY SERVICES (#[id number]) FOR INTERPRETATIONOF RESULTS. Serum or plasma urea nitroge n measurement (mass/volume)Ordered By: Sulma Alexander on 07-13-2023 Urea nitrogen [Mass/Vol] 18 mg/dL 7-18 [facility] Thin prep Papanicolaou smear with manual screeningOrdered By: Sulma Alexander on 07-13-2023 Thin prep Papanicolaou smear with manual screening 3 5-15 [facility] Vancomycin, Trough Levelon 0 07-13-2023 VANCO, TROUGH 17.7 ug/mL High 5.0-15.0 [facility] Comment on above: Order Comment: 1311 Result Comment: VANC OMYCIN STANDARED DRUG THERAPY TROUGH LEVEL: 5.0 - 15.0 mg/LVANCOMYCIN HIGH INTENSITY THERAPY TROUGH LEVEL: 15.0 - 20.0 mg/LHigh Intensity therapy recommended for serious lifethreatening infections include:- Hdoljlnctq-Kmlbfnjaamze-Gdvtadkda (Ventilator/Healtcare Associated)-SepsisPLEASE CONTACT PHARMACY SERVICES (#6127) FOR INTERPRETATIONOF RESULTS. Performed By: #### L 101.9900, L500.2500, L501.8820, L100.0500 ####[facility] [address] [place], [address] Basic Metabolic Profile (BMP )on 07-06-2023 BUN/CRE 25.1 RATIO High 10-20 [facility] Comment on above: Performed By: #### L 100.0500, L101.9900, L500.2500, L501.8820 ####[facility] [address] [place], [address] CA,Total 9.6 mg/dL Normal 8.5-10.1 [facility] Comment on above: Performed By: #### L 100.0500, L101.9900, L500.2500, L501.8820 ####[facility] [address] [place], [address] Chloride [Moles/Vol] 108 mmol/L High 98-107 [facility] Comment on above: Performed By: #### L 100.0500, L101.9900, L500.2500, L501.8820 ####[facility] [address] [place], [address] CO2 [Moles/Vol] 28.0 mmol/L Normal 21.0-32.0 [facility] Comment on above: Performed By: #### L 100.0500, L101.9900, L500.2500, L501.8820 ####[facility] [address] [place], [address] Creatinine [Mass/Vol] 0.72 mg/dL Normal 0.55-1.02 [facility] Comment on above: Result Comment: The validity of the calculated GFR GFRAA in patients over70 years has not been determined. Clinical correlation isessential. Performed By: #### L 100.0500, L101.9900, L500.2500, L501.8820 ####[facility] [address] [place], [address] EST GFR - AA 101 mL/min Normal >60 [facility] Comment on above: Result Comment: Afri can [place] GFR Calc Performed By: #### L 100.0500, L101.9900, L500.2500, L501.8820 ####[facility] [address] [place], [address] GAP 3 Low 5-15 [facility] Comment on above: Performed By: #### L 100.0500, L101.9900, L500.2500, L501.8820 ####[facility] [address] [place], [address] GFR/1.73 sq M.predicted among non-blacks MDRD (S/P/Bld) [Vol rate/Area] 84 mL/min/{1.73_m2} Normal >60 [facility] Comment on above: Result Comment: Non- GFR Calc Performed By: #### L 100.0500, L101.9900, L500.2500, L501.8820 ####[facility] [address] [place], [address] Glucose [Mass/Vol] 122 mg/dL High 74-106 [facility] Comment on above: Result Comment: Fast ing Glucose result from 100 to 125 mg/dLsuggests IMPAIRED HOMEOSTASIS per A.D.A. criteria. Performed By: #### L 100.0500, L101.9900, L500.2500, L501.8820 ####[facility] [address] [place], [address] Potassium [Moles/Vol] 3.7 mmol/L Normal 3.5-5.1 [facility] Comment on above: Performed By: #### L 100.0500, L101.9900, L500.2500, L501.8820 ####[facility] [address] [place], [address] Sodium [Moles/Vol] 139 mmol/L Normal 136-145 [facility] Comment on above: Performed By: #### L 100.0500, L101.9900, L500.2500, L501.8820 ####[facility] [address] [place], [address] Urea nitrogen [Mass/Vol] 18 mg/dL Normal 7-18 [facility] Comment on above: Performed By: #### L 100.0500, L101.9900, L500.2500, L501.8820 ####[facility] [address] [place], [address] Basophil percentageOrdered B y: Roman Faith on 07-06-2023 Chloride [Moles/Vol] 108 mmol/L 98-107 [facility] Glucose [Mass/Vol] 122 mg/dL 74-106 [facility] Comment on above: Fasting Glucose resu lt from 100 to 125 mg/dL suggests IMPAIRED HOMEOSTASIS per A.D.A. criteria. Hemoglobin (Bld) [Mass/Vol] 9.0 g/dL 12.0-15.0 [facility] Potassium [Moles/Vol] 3.7 mmol/L 3.5-5.1 [facility] Sodium [Moles/Vol] 139 mmol/L 136-145 [facility] WBC (Bld) [#/Vol] 11.1 10*3/uL 4.4-11.0 [facility] CBC-Complete Blood Cnt No Di ffon 07-06-2023 Erythrocyte distribution width (RBC) [Ratio] 15.0 % High 11.6-14.6 [facility] Comment on above: Performed By: #### L 100.0500, L101.9900, L500.2500, L501.8820 ####[facility] [address] [place], [address] Hematocrit (Bld) [Volume fraction] 29.4 % Low 37-47 [facility] Comment on above: Performed By: #### L 100.0500, L101.9900, L500.2500, L501.8820 ####[facility] [address] [place], [address] Hemoglobin (Bld) [Mass/Vol] 9.0 g/dL Low 12.0-15.0 [facility] Comment on above: Performed By: #### L 100.0500, L101.9900, L500.2500, L501.8820 ####[facility] [address] [place], [address] MCH (RBC) [Entitic mass] 24.6 pg Low 27.0-32.0 [facility] Comment on above: Performed By: #### L 100.0500, L101.9900, L500.2500, L501.8820 ####[facility] [address] [place], [address] MCHC (RBC) [Mass/Vol] 30.6 g/dL Low 32-36 [facility] Comment on above: Performed By: #### L 100.0500, L101.9900, L500.2500, L501.8820 ####[facility] [address] [place], [address] MCV (RBC) [Entitic vol] 80.3 fL Low 81-99 [facility] Comment on above: Performed By: #### L 100.0500, L101.9900, L500.2500, L501.8820 ####[facility] [address] [place], [address] Platelet mean volume (Bld) [Entitic vol] 8.4 fL Normal 6.2-12.0 [facility] Comment on above: Performed By: #### L 100.0500, L101.9900, L500.2500, L501.8820 ####[facility] [address] [place], [address] Platelets (Bld) [#/Vol] 315 10*3/uL Normal 150-450 [facility] Comment on above: Performed By: #### L 100.0500, L101.9900, L500.2500, L501.8820 ####[facility] [address] [place], [address] RBC (Bld) [#/Vol] 3.66 10*6/uL Low 4.2-5.4 [facility] Comment on above: Performed By: #### L 100.0500, L101.9900, L500.2500, L501.8820 ####[facility] [address] [place], [address] RDW SD 44.0 fl High 35.1-43.9 [facility] Comment on above: Performed By: #### L 100.0500, L101.9900, L500.2500, L501.8820 ####[facility] [address] [place], [address] WBC (Bld) [#/Vol] 11.1 10*3/uL High 4.4-11.0 [facility] Comment on above: Performed By: #### L 100.0500, L101.9900, L500.2500, L501.8820 ####[facility] [address] [place], [address] Determination of erythrocyte mean corpuscular volume (MCV)Ordered By: Roman Faith on 07-06-2023 MCV (RBC) [Entitic vol] 80.3 fL 81-99 [facility] Erythrocyte Sed Rateon 07-05 SED RATE 28 mm/hr Normal 0-30 [facility] Comment on above: Performed By: #### L 100.0500, L101.9900, L500.2500, L501.8820 ####[facility] [address] [place], [place], [id number] Erythrocyte distribution wid th ratioOrdered By: Roman Faith on 07-06-2023 Erythrocyte distribution width (RBC) [Ratio] 15.0 % 11.6-14.6 [facility] Erythrocyte distribution wid th standard deviationOrdered By: Roman Faith on 07-06-2023 Erythrocyte distribution width (RBC) [Entitic vol] 44.0 fL 35.1-43.9 [facility] Erythrocyte sedimentation ra teOrdered By: Roman Faith on 07-06-2023 ESR (Bld) [Velocity] 28 mm/h 0-30 [facility] Hematocrit Auto (Bld) [Volum e fraction]Ordered By: Roman Faith on 07-06-2023 Hematocrit (Bld) [Volume fraction] 29.4 % 37-47 [facility] Laboratory - Chemistry and C hemistry - challengeOrdered By: Roman Faith on 07-06-2023 CO2 [Moles/Vol] 28.0 mmol/L 21.0-32.0 [facility] Urea nitrogen/Creatinine [Mass ratio] 25.1 mg/mg 10-20 [facility] Laboratory - Hematology and Cell countsOrdered By: Roman Faith on 07-06-2023 MCH (RBC) [Entitic mass] 24.6 pg 27.0-32.0 [facility] MCHC (RBC) [Mass/Vol] 30.6 g/dL 32-36 [facility] Platelet mean volume (Bld) [Entitic vol] 8.4 fL 6.2-12.0 [facility] Platelets (Bld) [#/Vol] 315 10*3/uL 150-450 [facility] No Panel InformationOrdered By: Roman Faith on 07-06-2023 Estimated GFR (MDRD) Amer 101 mL/min >60 [facility] Comment on above: GFR Calc Estimated GFR (MDRD) Non-Af Amer 84 mL/min >60 [facility] Comment on above: Non- GFR Calc RBC Auto (Bld) [#/Vol]Ordere d By: Roman Faith on 07-06-2023 RBC (Bld) [#/Vol] 3.66 10*6/uL 4.2-5.4 [facility] Serum or plasma calcium surjit urement (mass/volume)Ordered By: Roman Faith on 07-06-2023 Calcium [Mass/Vol] 9.6 mg/dL 8.5-10.1 [facility] Serum or plasma creatinine m easurement (mass/volume)Ordered By: Roman Faith on 07-06-2023 Creatinine [Mass/Vol] 0.72 mg/dL 0.55-1.02 [facility] Comment on above: The validity of the calculated GFR & GFRAA in patients over 70 years has not been determined. Clinical correlation is essential. Serum or plasma trough vanco mycin levelOrdered By: Roman Faith on 07-06-2023 Vancomycin trough [Mass/Vol] 15.6 ug/mL 5.0-15.0 [facility] Comment on above: VANCOMYCIN STANDARED DRUG THERAPY TROUGH LEVEL: 5.0 - 15.0 mg/L VANCOMYCIN HIGH INTENSITY THERAPY TROUGH LEVEL: 15.0 - 20.0 mg/L High Intensity therapy recommended for serious lifethreatening infections include:- Wrbzagtdrq-Mktwjjuicsmz-Goiazilvl (Ventilator/Healtcare Associated)-Sepsis PLEASE CONTACT PHARMACY SERVICES (#1899) FOR INTERPRETATIONOF RESULTS. Serum or plasma urea nitroge n measurement (mass/volume)Ordered By: Roman Faith on 07-06-2023 Urea nitrogen [Mass/Vol] 18 mg/dL 7-18 [facility] [facility] Th[facility] prep Papanicolaou smear with manual screeningOrdered By: Roman Faith on 07-06-2023 Thin prep Papanicolaou smear with manual screening 3 5-15 [facility] Vancomycin, Trough Levelon 0 4-16-2024 VANCO, TROUGH 15.6 ug/mL High 5.0-15.0 [facility] Comment on above: Order Comment: 1300 Result Comment: VANC OMYCIN STANDARED DRUG THERAPY TROUGH LEVEL: 5.0 - 15.0 mg/LVANCOMYCIN HIGH INTENSITY THERAPY TROUGH LEVEL: 15.0 - 20.0 mg/LHigh Intensity therapy recommended for serious lifethreatening infections include:- Gupgeongdo-Kgghjjroidcx-Qldsxedcr (Ventilator/Healtcare Associated)-SepsisPLEASE CONTACT PHARMACY SERVICES (#5132) FOR INTERPRETATIONOF RESULTS. Performed By: #### L 100.0500, L101.9900, L500.2500, L501.8820 ####[facility] [address] [place], [address] Basic Metabolic Profile (BMP )on 06-29-2023 BUN/CRE 23.5 RATIO High 10-20 [facility] Comment on above: Performed By: #### L 100.0500, L101.9900, L501.8820, L500.2500 ####[facility] [address] [place], [address] CA,Total 10.1 mg/dL Normal 8.5-10.1 [facility] Comment on above: Performed By: #### L 100.0500, L101.9900, L501.8820, L500.2500 ####[facility] [address] [place], [address] Chloride [Moles/Vol] 106 mmol/L Normal 98-107 [facility] Comment on above: Performed By: #### L 100.0500, L101.9900, L501.8820, L500.2500 ####[facility] [address] [place], [address] CO2 [Moles/Vol] 28.0 mmol/L Normal 21.0-32.0 [facility] Comment on above: Performed By: #### L 100.0500, L101.9900, L501.8820, L500.2500 ####[facility] [address] [place], [address] Creatinine [Mass/Vol] 0.64 mg/dL Normal 0.55-1.02 [facility] Comment on above: Result Comment: The validity of the calculated GFR GFRAA in patients over70 years has not been determined. Clinical correlation isessential. Performed By: #### L 100.0500, L101.9900, L501.8820, L500.2500 ####[facility] [address] [place], [address] ECRCL 40.96 ml/min Normal [facility] Comment on above: Performed By: #### L 100.0500, L101.9900, L501.8820, L500.2500 ####[facility] [address] [place], [address] EST GFR - AA 116 mL/min Normal >60 [facility] Comment on above: Result Comment: Afri can Citizen [place] GFR Calc Performed By: #### L 100.0500, L101.9900, L501.8820, L500.2500 ####[facility] [address] [place], [address] GAP 4 Low 5-15 [facility] Comment on above: Performed By: #### L 100.0500, L101.9900, L501.8820, L500.2500 ####[facility] [address] [place], [address] GFR/1.73 sq M.predicted among non-blacks MDRD (S/P/Bld) [Vol rate/Area] 95 mL/min/{1.73_m2} Normal >60 [facility] Comment on above: Result Comment: Non- GFR Calc Performed By: #### L 100.0500, L101.9900, L501.8820, L500.2500 ####[facility] [address] [place], [address] Glucose [Mass/Vol] 116 mg/dL High 74-106 [facility] Comment on above: Result Comment: Fast ing Glucose result from 100 to 125 mg/dLsuggests IMPAIRED HOMEOSTASIS per A.D.A. criteria. Performed By: #### L 100.0500, L101.9900, L501.8820, L500.2500 ####[facility] [address] [place], [address] Potassium [Moles/Vol] 4.2 mmol/L Normal 3.5-5.1 [facility] Comment on above: Performed By: #### L 100.0500, L101.9900, L501.8820, L500.2500 ####[facility] [address] [place], [address] Sodium [Moles/Vol] 138 mmol/L Normal 136-145 [facility] Comment on above: Performed By: #### L 100.0500, L101.9900, L501.8820, L500.2500 ####[facility] [address] [place], [address] Urea nitrogen [Mass/Vol] 15 mg/dL Normal 7-18 [facility] Comment on above: Performed By: #### L 100.0500, L101.9900, L501.8820, L500.2500 ####[facility] [address] [place], [address] Basophil percentageOrdered B y: Roman Faith on 06-29-2023 Chloride [Moles/Vol] 106 mmol/L 98-107 [facility] Glucose [Mass/Vol] 116 mg/dL 74-106 [facility] Comment on above: Fasting Glucose resu lt from 100 to 125 mg/dL suggests IMPAIRED HOMEOSTASIS per A.D.A. criteria. Hemoglobin (Bld) [Mass/Vol] 9.5 g/dL 12.0-15.0 [facility] Potassium [Moles/Vol] 4.2 mmol/L 3.5-5.1 [facility] Sodium [Moles/Vol] 138 mmol/L 136-145 [facility] WBC (Bld) [#/Vol] 12.3 10*3/uL 4.4-11.0 [facility] CBC-Complete Blood Cnt No Di ffon 06-29-2023 Erythrocyte distribution width (RBC) [Ratio] 15.7 % High 11.6-14.6 [facility] Comment on above: Performed By: #### L 100.0500, L101.9900, L501.8820, L500.2500 ####[facility] [address] [place], [address] Hematocrit (Bld) [Volume fraction] 32.0 % Low 37-47 [facility] Comment on above: Performed By: #### L 100.0500, L101.9900, L501.8820, L500.2500 ####[facility] [address] [place], [address] Hemoglobin (Bld) [Mass/Vol] 9.5 g/dL Low 12.0-15.0 [facility] Comment on above: Performed By: #### L 100.0500, L101.9900, L501.8820, L500.2500 ####[facility] [address] [place], [address] MCH (RBC) [Entitic mass] 24.1 pg Low 27.0-32.0 [facility] Comment on above: Performed By: #### L 100.0500, L101.9900, L501.8820, L500.2500 ####[facility] [address] [place], [address] MCHC (RBC) [Mass/Vol] 29.7 g/dL Low 32-36 [facility] Comment on above: Performed By: #### L 100.0500, L101.9900, L501.8820, L500.2500 ####[facility] [address] [place], [address] MCV (RBC) [Entitic vol] 81.0 fL Normal 81-99 [facility] Comment on above: Performed By: #### L 100.0500, L101.9900, L501.8820, L500.2500 ####[facility] [address] [place], [address] Platelet mean volume (Bld) [Entitic vol] 8.1 fL Normal 6.2-12.0 [facility] Comment on above: Performed By: #### L 100.0500, L101.9900, L501.8820, L500.2500 ####[facility] [address] [place], [address] Platelets (Bld) [#/Vol] 424 10*3/uL Normal 150-450 [facility] Comment on above: Performed By: #### L 100.0500, L101.9900, L501.8820, L500.2500 ####[facility] [address] [place], [address] RBC (Bld) [#/Vol] 3.95 10*6/uL Low 4.2-5.4 [facility] Comment on above: Performed By: #### L 100.0500, L101.9900, L501.8820, L500.2500 ####[facility] [address] [place], [address] RDW SD 46.2 fl High 35.1-43.9 [facility] Comment on above: Performed By: #### L 100.0500, L101.9900, L501.8820, L500.2500 ####[facility] [address] [place], [address] WBC (Bld) [#/Vol] 12.3 10*3/uL High 4.4-11.0 [facility] Comment on above: Performed By: #### L 100.0500, L101.9900, L501.8820, L500.2500 ####[facility] [address] [place], [place], [id number] Determination of erythrocyte mean corpuscular volume (MCV)Ordered By: Roman Faith on 06-29-2023 MCV (RBC) [Entitic vol] 81.0 fL 81-99 [facility] Erythrocyte Sed Rateon 06-28 SED RATE 39 mm/hr High 0-30 [facility] Comment on above: Performed By: #### L 100.0500, L101.9900, L501.8820, L500.2500 ####[facility] [address] [place], [place], [id number] Erythrocyte distribution wid th ratioOrdered By: Roman Faith on 06-29-2023 Erythrocyte distribution width (RBC) [Ratio] 15.7 % 11.6-14.6 [facility] Erythrocyte distribution wid th standard deviationOrdered By: Roman Faith on 06-29-2023 Erythrocyte distribution width (RBC) [Entitic vol] 46.2 fL 35.1-43.9 [facility] Erythrocyte sedimentation ra teOrdered By: Roman Faith on 06-29-2023 ESR (Bld) [Velocity] 39 mm/h 0-30 [facility] Hematocrit Auto (Bld) [Volum e fraction]Ordered By: Roman Faith on 06-29-2023 Hematocrit (Bld) [Volume fraction] 32.0 % 37-47 [facility] Laboratory - Chemistry and C hemistry - challengeOrdered By: Roman Faith on 06-29-2023 CO2 [Moles/Vol] 28.0 mmol/L 21.0-32.0 [facility] Urea nitrogen/Creatinine [Mass ratio] 23.5 mg/mg 10-20 [facility] Laboratory - Hematology and Cell countsOrdered By: Roman Faith on 06-29-2023 MCH (RBC) [Entitic mass] 24.1 pg 27.0-32.0 [facility] MCHC (RBC) [Mass/Vol] 29.7 g/dL 32-36 [facility] Platelet mean volume (Bld) [Entitic vol] 8.1 fL 6.2-12.0 [facility] Platelets (Bld) [#/Vol] 424 10*3/uL 150-450 [facility] No Panel InformationOrdered By: Roman Faith on 06-29-2023 Estimated Creatinine Clearance Calc 40.96 ml/min [facility] Estimated GFR (MDRD) Amer 116 mL/min >60 [facility] Comment on above: GFR Calc Estimated GFR (MDRD) Non-Af Amer 95 mL/min >60 [facility] Comment on above: Non- GFR Calc RBC Auto (Bld) [#/Vol]Ordere d By: Roman Faith on 06-29-2023 RBC (Bld) [#/Vol] 3.95 10*6/uL 4.2-5.4 [facility] Serum or plasma calcium surjit urement (mass/volume)Ordered By: Roman Faith on 06-29-2023 Calcium [Mass/Vol] 10.1 mg/dL 8.5-10.1 [facility] Serum or plasma creatinine m easurement (mass/volume)Ordered By: Roman Faith on 06-29-2023 Creatinine [Mass/Vol] 0.64 mg/dL 0.55-1.02 [facility] Comment on above: The validity of the calculated GFR & GFRAA in patients over 70 years has not been determined. Clinical correlation is essential. Serum or plasma trough vanco mycin levelOrdered By: Roman Faith on 06-29-2023 Vancomycin trough [Mass/Vol] 14.9 ug/mL 5.0-15.0 [facility] Comment on above: VANCOMYCIN STANDARED DRUG THERAPY TROUGH LEVEL: 5.0 - 15.0 mg/L VANCOMYCIN HIGH INTENSITY THERAPY TROUGH LEVEL: 15.0 - 20.0 mg/L High Intensity therapy recommended for serious lifethreatening infections include:- Xynniwjnpx-Acdfznabjjfv-Xzjcgjzvz (Ventilator/Healtcare Associated)-Sepsis PLEASE CONTACT PHARMACY SERVICES (#1139) FOR INTERPRETATIONOF RESULTS. Serum or plasma urea nitroge n measurement (mass/volume)Ordered By: Roman Faith on 06-29-2023 Urea nitrogen [Mass/Vol] 15 mg/dL 7-18 [facility] Thin prep Papanicolaou smear with manual screeningOrdered By: Roman Faith on 06-29-2023 Thin prep Papanicolaou smear with manual screening 4 5-15 [facility] Vancomycin, Trough Levelon 0 06-29-2023 VANCO, TROUGH 14.9 ug/mL Normal 5.0-15.0 [facility] Comment on above: Order Comment: 1300 Result Comment: VANC OMYCIN STANDARED DRUG THERAPY TROUGH LEVEL: 5.0 - 15.0 mg/LVANCOMYCIN HIGH INTENSITY THERAPY TROUGH LEVEL: 15.0 - 20.0 mg/LHigh Intensity therapy recommended for serious lifethreatening infections include:- Rvwghckgqs-Fyvtwwvhthhy-Xpcozqskj (Ventilator/Healtcare Associated)-SepsisPLEASE CONTACT PHARMACY SERVICES (#3928) FOR INTERPRETATIONOF RESULTS. Performed By: #### L 100.0500, L101.9900, L501.8820, L500.2500 ####[facility] [address] [place], [place], [id number] Basic Metabolic Profile (BMP )on 06-22-2023 BUN/CRE 31.5 RATIO High 10-20 [facility] Comment on above: Order Comment: VANC MED TIME UNK Performed By: #### L 501.8820, L500.2500, L101.9900, L100.0500 ####[facility] [address] [place], [place], [id number] [place],Total 9.4 mg/dL Normal 8.5-10.1 [facility] Comment on above: Order Comment: VANC MED TIME UNK Performed By: #### L 501.8820, L500.2500, L101.9900, L100.0500 ####[facility] [address] [place], [place], [id number] Chloride [Moles/Vol] 107 mmol/L Normal 98-107 [facility] Comment on above: Order Comment: VANC MED TIME UNK Performed By: #### L 501.8820, L500.2500, L101.9900, L100.0500 ####[facility] [address] [place], [address] CO2 [Moles/Vol] 27.0 mmol/L Normal 21.0-32.0 [facility] Comment on above: Order Comment: VANC MED TIME UNK Performed By: #### L 501.8820, L500.2500, L101.9900, L100.0500 ####[facility] [address] [place], [address] Creatinine [Mass/Vol] 0.70 mg/dL Normal 0.55-1.02 [facility] Comment on above: Order Comment: VANC MED TIME UNK Result Comment: The validity of the calculated GFR GFRAA in patients over70 years has not been determined. Clinical correlation isessential. Performed By: #### L 501.8820, L500.2500, L101.9900, L100.0500 ####[facility] [address] [place], [address] EST GFR - AA 104 mL/min Normal >60 [facility] Comment on above: Order Comment: VANC MED TIME UNK Result Comment: Afri can Citizen [place] GFR Calc Performed By: #### L 501.8820, L500.2500, L101.9900, L100.0500 ####[facility] [address] [place], [address] GAP 4 Low 5-15 [facility] Comment on above: Order Comment: VANC MED TIME UNK Performed By: #### L 501.8820, L500.2500, L101.9900, L100.0500 ####[facility] [address] [place], [address] GFR/1.73 sq M.predicted among non-blacks MDRD (S/P/Bld) [Vol rate/Area] 86 mL/min/{1.73_m2} Normal >60 [facility] Comment on above: Order Comment: VANC MED TIME UNK Result Comment: Non- GFR Calc Performed By: #### L 501.8820, L500.2500, L101.9900, L100.0500 ####[facility] [address] [place], [address] Glucose [Mass/Vol] 88 mg/dL Normal 74-106 [facility] Comment on above: Order Comment: [facility] MED TIME UNK Performed By: #### L 501.8820, L500.2500, L101.9900, L100.0500 ####[facility] [address] [place], [address] Potassium [Moles/Vol] 4.0 mmol/L Normal 3.5-5.1 [facility] Comment on above: Order Comment: [facility] MED TIME UNK Performed By: #### L 501.8820, L500.2500, L101.9900, L100.0500 ####[facility] [address] [place], [address] Sodium [Moles/Vol] 138 mmol/L Normal 136-145 [facility] Comment on above: Order Comment: VANC MED TIME UNK Performed By: #### L 501.8820, L500.2500, L101.9900, L100.0500 ####[facility] [address] [place], [address] Urea nitrogen [Mass/Vol] 22 mg/dL High 7-18 [facility] Comment on above: Order Comment: VANC MED TIME UNK Performed By: #### L 501.8820, L500.2500, L101.9900, L100.0500 ####[facility] [address] [place], [address] Basophil percentageOrdered B y: Roman Faith on 06-22-2023 Chloride [Moles/Vol] 107 mmol/L 98-107 [facility] Glucose [Mass/Vol] 88 mg/dL 74-106 [facility] Hemoglobin (Bld) [Mass/Vol] 8.9 g/dL 12.0-15.0 [facility] Potassium [Moles/Vol] 4.0 mmol/L 3.5-5.1 [facility] Sodium [Moles/Vol] 138 mmol/L 136-145 [facility] WBC (Bld) [#/Vol] 10.7 10*3/uL 4.4-11.0 [facility] CBC-Complete Blood Cnt No Di ffon 06-22-2023 Erythrocyte distribution width (RBC) [Ratio] 16.0 % High 11.6-14.6 [facility] Comment on above: Performed By: #### L 501.8820, L500.2500, L101.9900, L100.0500 ####[facility] [address] [place], [address] Hematocrit (Bld) [Volume fraction] 29.3 % Low 37-47 [facility] Comment on above: Performed By: #### L 501.8820, L500.2500, L101.9900, L100.0500 ####[facility] [address] [place], [address] Hemoglobin (Bld) [Mass/Vol] 8.9 g/dL Low 12.0-15.0 [facility] Comment on above: Performed By: #### L 501.8820, L500.2500, L101.9900, L100.0500 ####[facility] [address] [place], [address] MCH (RBC) [Entitic mass] 24.5 pg Low 27.0-32.0 [facility] Comment on above: Performed By: #### L 501.8820, L500.2500, L101.9900, L100.0500 ####[facility] [address] [place], [address] MCHC (RBC) [Mass/Vol] 30.4 g/dL Low 32-36 [facility] Comment on above: Performed By: #### L 501.8820, L500.2500, L101.9900, L100.0500 ####[facility] [address] [place], [address] MCV (RBC) [Entitic vol] 80.5 fL Low 81-99 [facility] Comment on above: Performed By: #### L 501.8820, L500.2500, L101.9900, L100.0500 ####[facility] [address] [place], [address] Platelet mean volume (Bld) [Entitic vol] 8.2 fL Normal 6.2-12.0 [facility] Comment on above: Performed By: #### L 501.8820, L500.2500, L101.9900, L100.0500 ####[facility] [address] [place], [address] Platelets (Bld) [#/Vol] 485 10*3/uL High 150-450 [facility] Comment on above: Performed By: #### L 501.8820, L500.2500, L101.9900, L100.0500 ####[facility] [address] [place], [address] RBC (Bld) [#/Vol] 3.64 10*6/uL Low 4.2-5.4 [facility] Comment on above: Performed By: #### L 501.8820, L500.2500, L101.9900, L100.0500 ####[facility] [address] [place], [address] RDW SD 46.8 fl High 35.1-43.9 [facility] Comment on above: Performed By: #### L 501.8820, L500.2500, L101.9900, L100.0500 ####[facility] [address] [place], [address] WBC (Bld) [#/Vol] 10.7 10*3/uL Normal 4.4-11.0 [facility] Comment on above: Performed By: #### L 501.8820, L500.2500, L101.9900, L100.0500 ####[facility] [address] [place], [place], [address] Determination of erythrocyte mean corpuscular volume (MCV)Ordered By: Roman Faith on 06-22-2023 MCV (RBC) [Entitic vol] 80.5 fL 81-99 [facility] ESRon 06-22-2023 Erythrocyte Sed Rate 38 mm/hr High 0-30 [facility] ([place]) Comment on above: Performed By: #### E SR #### [address] [address] Erythrocyte Sed Rateon 06-21 SED RATE 38 mm/hr High 0-30 [facility] Comment on above: Result Comment: TESTING PERFORMED AT [facility]. ORIGINAL REPORT ON FILE IN LAB CONTAINS ADDITIONAL TEST SITE INFORMATION. ____ Performed By: #### L 501.8820, L500.2500, L101.9900, L100.0500 ####[facility] [address] [place], [place], [address] Erythrocyte distribution wid th ratioOrdered By: Roman Faith on 06-22-2023 Erythrocyte distribution width (RBC) [Ratio] 16.0 % 11.6-14.6 [facility] Erythrocyte distribution wid th standard deviationOrdered By: Roman Faith on 06-22-2023 Erythrocyte distribution width (RBC) [Entitic vol] 46.8 fL 35.1-43.9 [facility] Erythrocyte sedimentation ra teOrdered By: Roman Faith on 06-22-2023 ESR (Bld) [Velocity] 38 mm/h 0-30 [facility] Comment on above: TESTING PERFORMED AT [facility]. ORIGINAL REPORT ON FILE IN LAB CONTAINS ADDITIONAL TEST SITE INFORMATION. ____ Hematocrit Auto (Bld) [Volum e fraction]Ordered By: Roman Faith on 06-22-2023 Hematocrit (Bld) [Volume fraction] 29.3 % 37-47 [facility] LABORATORYOrdered By: Gunnar Levin on 06-22-2023 ESR Photometric method (Bld) [Velocity] 38 mm/hr High 0 - 30 mm/hr AO Man Heme [facility] Laboratory - Chemistry and C hemistry - challengeOrdered By: Roman Faith on 06-22-2023 CO2 [Moles/Vol] 27.0 mmol/L 21.0-32.0 [facility] Urea nitrogen/Creatinine [Mass ratio] 31.5 mg/mg 10-20 [facility] Laboratory - Hematology and Cell countsOrdered By: Roman Faith on 06-22-2023 MCH (RBC) [Entitic mass] 24.5 pg 27.0-32.0 [facility] MCHC (RBC) [Mass/Vol] 30.4 g/dL 32-36 [facility] Platelet mean volume (Bld) [Entitic vol] 8.2 fL 6.2-12.0 [facility] Platelets (Bld) [#/Vol] 485 10*3/uL 150-450 [facility] No Panel InformationOrdered By: Roman Faith on 06-22-2023 Estimated GFR (MDRD) Amer 104 mL/min >60 [facility] Comment on above: GFR Calc Estimated GFR (MDRD) Non-Af Amer 86 mL/min >60 [facility] Comment on above: Non- GFR Calc RBC Auto (Bld) [#/Vol]Ordere d By: Roman Faith on 06-22-2023 RBC (Bld) [#/Vol] 3.64 10*6/uL 4.2-5.4 [facility] Serum or plasma calcium surjit urement (mass/volume)Ordered By: Roman Faith on 06-22-2023 Calcium [Mass/Vol] 9.4 mg/dL 8.5-10.1 [facility] Serum or plasma creatinine m easurement (mass/volume)Ordered By: Roman Faith on 06-22-2023 Creatinine [Mass/Vol] 0.70 mg/dL 0.55-1.02 [facility] Comment on above: The validity of the calculated GFR & GFRAA in patients over 70 years has not been determined. Clinical correlation is essential. Serum or plasma trough vanco mycin levelOrdered By: Roman Faith on 06-22-2023 Vancomycin trough [Mass/Vol] 13.9 ug/mL 5.0-15.0 [facility] Comment on above: VANCOMYCIN STANDARED DRUG THERAPY TROUGH LEVEL: 5.0 - 15.0 mg/L VANCOMYCIN HIGH INTENSITY THERAPY TROUGH LEVEL: 15.0 - 20.0 mg/L High Intensity therapy recommended for serious lifethreatening infections include:- Oedpjpnafa-Vcxdshtciaaa-Cmquargtu (Ventilator/Healtcare Associated)-Sepsis PLEASE CONTACT PHARMACY SERVICES (#5325) FOR INTERPRETATIONOF RESULTS. Serum or plasma urea nitroge n measurement (mass/volume)Ordered By: Roman Faith on 06-22-2023 Urea nitrogen [Mass/Vol] 22 mg/dL 7-18 [facility] Thin prep Papanicolaou smear with manual screeningOrdered By: Roman Faith on 06-22-2023 Thin prep Papanicolaou smear with manual screening 4 5-15 [facility] Vancomycin, Trough Levelon 0 06-22-2023 VANCO, TROUGH 13.9 ug/mL Normal 5.0-15.0 [facility] Comment on above: Order Comment: VANC MED TIME [id number] Result Comment: VANC OMYCIN STANDARED DRUG THERAPY TROUGH LEVEL: 5.0 - 15.0 mg/LVANCOMYCIN HIGH INTENSITY THERAPY TROUGH LEVEL: 15.0 - 20.0 mg/LHigh Intensity therapy recommended for serious lifethreatening infections include:- Flhcpicgzx-Dgrirolyrrho-Txmbpxmcb (Ventilator/Healtcare Associated)-SepsisPLEASE CONTACT PHARMACY SERVICES (#6981) FOR INTERPRETATIONOF RESULTS. Performed By: #### L 501.8820, L500.2500, L101.9900, L100.0500 ####[facility] [address] [place], [address] Basic Metabolic Profile (BMP )on 06-21-2023 BUN Normal 7-18 [facility] Comment on above: Result Comment: @PAT IENT WILL BE DRAWN AT LATER DATE. PER ONC NURSE Performed By: #### L 101.9900, L100.0500, L500.2500 ####[facility] [address] [place], [address] BUN/CRE Normal 10-20 [facility] Comment on above: Result Comment: @PAT IENT WILL BE DRAWN AT LATER DATE. PER ONC NURSE Performed By: #### L 101.9900, L100.0500, L500.2500 ####[facility] [address] [place], [address] CA,Total Normal 8.5-10.1 [facility] Comment on above: Result Comment: @PAT IENT WILL BE DRAWN AT LATER DATE. PER ONC NURSE Performed By: #### L 101.9900, L100.0500, L500.2500 ####[facility] [address] [place], [address] CL Normal 98-107 [facility] Comment on above: Result Comment: @PAT IENT WILL BE DRAWN AT LATER DATE. PER ONC NURSE Performed By: #### L 101.9900, L100.0500, L500.2500 ####[facility] [address] [place], [address] CO2 Normal 21.0-32.0 [facility] Comment on above: Result Comment: @PAT IENT WILL BE DRAWN AT LATER DATE. PER ONC NURSE Performed By: #### L 101.9900, L100.0500, L500.2500 ####[facility] [address] [place], [address] CREAT,SERUM Normal 0.55-1.02 [facility] Comment on above: Result Comment: @PAT IENT WILL BE DRAWN AT LATER DATE. PER ONC NURSE Performed By: #### L 101.9900, L100.0500, L500.2500 ####[facility] [address] [place], [address] EST GFR Normal >60 [facility] Comment on above: Result Comment: @PAT IENT WILL BE DRAWN AT LATER DATE. PER ONC NURSE Performed By: #### L 101.9900, L100.0500, L500.2500 ####[facility] [address] [place], [address] EST GFR - AA Normal >60 [facility] Comment on above: Result Comment: @PAT IENT WILL BE DRAWN AT LATER DATE. PER ONC NURSE Performed By: #### L 101.9900, L100.0500, L500.2500 ####[facility] [address] [place], [address] GAP Normal 5-15 [facility] Comment on above: Result Comment: @PAT IENT WILL BE DRAWN AT LATER DATE. PER ONC NURSE Performed By: #### L 101.9900, L100.0500, L500.2500 ####[facility] [address] [place], [address] GLU Normal 74-106 [facility] Comment on above: Result Comment: @PAT IENT WILL BE DRAWN AT LATER DATE. PER ONC NURSE Performed By: #### L 101.9900, L100.0500, L500.2500 ####[facility] [address] [place], [address] Potassium Normal 3.5-5.1 [facility] Comment on above: Result Comment: @PAT IENT WILL BE DRAWN AT LATER DATE. PER ONC NURSE Performed By: #### L 101.9900, L100.0500, L500.2500 ####[facility] [address] [place], [address] Basic Metabolic Profile (BMP) Normal 136-145 [facility] Comment on above: Result Comment: @PAT IENT WILL BE DRAWN AT LATER DATE. PER ONC NURSE Performed By: #### L 101.9900, L100.0500, L500.2500 ####[facility] [address] [place], [address] CBC-Complete Blood Cnt No Di ffon 06-21-2023 HCT Normal 37-47 [facility] Comment on above: Result Comment: @PAT IENT WILL BE DRAWN AT LATER DATE. PER ONC NURSE Performed By: #### L 101.9900, L100.0500, L500.2500 ####[facility] [address] [place], [address] HGB Normal 12.0-15.0 [facility] Comment on above: Result Comment: @PAT IENT WILL BE DRAWN AT LATER DATE. PER ONC NURSE Performed By: #### L 101.9900, L100.0500, L500.2500 ####[facility] [address] [place], [address] MCH Normal 27.0-32.0 [facility] Comment on above: Result Comment: @PAT IENT WILL BE DRAWN AT LATER DATE. PER ONC NURSE Performed By: #### L 101.9900, L100.0500, L500.2500 ####[facility] [address] [place], [address] MCHC Normal 32-36 [facility] Comment on above: Result Comment: @PAT IENT WILL BE DRAWN AT LATER DATE. PER ONC NURSE Performed By: #### L 101.9900, L100.0500, L500.2500 ####[facility] [address] [place], [address] MCV Normal 81-99 [facility] Comment on above: Result Comment: @PAT IENT WILL BE DRAWN AT LATER DATE. PER ONC NURSE Performed By: #### L 101.9900, L100.0500, L500.2500 ####[facility] [address] [place], [address] PLT Normal 150-450 [facility] Comment on above: Result Comment: @PAT IENT WILL BE DRAWN AT LATER DATE. PER ONC NURSE Performed By: #### L 101.9900, L100.0500, L500.2500 ####[facility] [address] [place], [address] RBC Normal 4.2-5.4 [facility] Comment on above: Result Comment: @PAT IENT WILL BE DRAWN AT LATER DATE. PER ONC NURSE Performed By: #### L 101.9900, L100.0500, L500.2500 ####[facility] [address] [place], [address] RDW CV Normal 11.6-14.6 [facility] Comment on above: Result Comment: @PAT IENT WILL BE DRAWN AT LATER DATE. PER ONC NURSE Performed By: #### L 101.9900, L100.0500, L500.2500 ####[facility] [address] [place], [address] RDW SD Normal 35.1-43.9 [facility] Comment on above: Result Comment: @PAT IENT WILL BE DRAWN AT LATER DATE. PER ONC NURSE Performed By: #### L 101.9900, L100.0500, L500.2500 ####[facility] [address] [place], [address] WBC Normal 4.4-11.0 [facility] Comment on above: Result Comment: @PAT IENT WILL BE DRAWN AT LATER DATE. PER ONC NURSE Performed By: #### L 101.9900, L100.0500, L500.2500 ####[facility] [address] [place], [address] Erythrocyte Sed Rateon 06-20 SED RATE Normal 0-30 [facility] Comment on above: Result Comment: @PAT IENT WILL BE DRAWN AT LATER DATE. PER ONC NURSE Performed By: #### L 101.9900, L100.0500, L500.2500 ####[facility] [address] [place], [address] Basic Metabolic Profile (BMP )on 06-14-2023 BUN/CRE 26.9 RATIO High 10-20 [facility] Comment on above: Order Comment: VANC Performed By: #### L 101.9900, L500.2500, L501.8820, L100.0500 ####[facility] [address] [place], [address] CA,Total 9.7 mg/dL Normal 8.5-10.1 [facility] Comment on above: Order Comment: VANC Performed By: #### L 101.9900, L500.2500, L501.8820, L100.0500 ####[facility] [address] [place], [address] Chloride [Moles/Vol] 105 mmol/L Normal 98-107 [facility] Comment on above: Order Comment: VANC Performed By: #### L 101.9900, L500.2500, L501.8820, L100.0500 ####[facility] [address] [place], [address] CO2 [Moles/Vol] 28.0 mmol/L Normal 21.0-32.0 [facility] Comment on above: Order Comment: VANC Performed By: #### L 101.9900, L500.2500, L501.8820, L100.0500 ####[facility] [address] [place], [address] Creatinine [Mass/Vol] 0.60 mg/dL Normal 0.55-1.02 [facility] Comment on above: Order Comment: VANC Result Comment: The validity of the calculated GFR GFRAA in patients over70 years has not been determined. Clinical correlation isessential. Performed By: #### L 101.9900, L500.2500, L501.8820, L100.0500 ####[facility] [address] [place], [address] EST GFR - AA 125 mL/min Normal >60 [facility] Comment on above: Order Comment: VANC Result Comment: Afri can Citizen Of [place] GFR Calc Performed By: #### L 101.9900, L500.2500, L501.8820, L100.0500 ####[facility] [address] [place], [address] GAP 8 Normal 5-15 [facility] Comment on above: Order Comment: VANC Performed By: #### L 101.9900, L500.2500, L501.8820, L100.0500 ####[facility] [address] [place], [address] GFR/1.73 sq M.predicted among non-blacks MDRD (S/P/Bld) [Vol rate/Area] 103 mL/min/{1.73_m2} Normal >60 [facility] Comment on above: Order Comment: VANC Result Comment: Non- GFR Calc Performed By: #### L 101.9900, L500.2500, L501.8820, L100.0500 ####[facility] [address] [place], [address] Glucose [Mass/Vol] 111 mg/dL High 74-106 [facility] Comment on above: Order Comment: VANC Result Comment: Fast ing Glucose result from 100 to 125 mg/dLsuggests IMPAIRED HOMEOSTASIS per A.D.A. criteria. Performed By: #### L 101.9900, L500.2500, L501.8820, L100.0500 ####[facility] [address] [place], [address] Potassium [Moles/Vol] 4.3 mmol/L Normal 3.5-5.1 [facility] Comment on above: Order Comment: VANC Performed By: #### L 101.9900, L500.2500, L501.8820, L100.0500 ####[facility] [address] [place], [address] Sodium [Moles/Vol] 141 mmol/L Normal 136-145 [facility] Comment on above: Order Comment: VANC Performed By: #### L 101.9900, L500.2500, L501.8820, L100.0500 ####[facility] [address] [place], [address] Urea nitrogen [Mass/Vol] 16 mg/dL Normal 7-18 [facility] Comment on above: Order Comment: VANC Performed By: #### L 101.9900, L500.2500, L501.8820, L100.0500 ####[facility] [address] [place], [address] Basophil percentageOrdered B y: Roman Faith on 06-14-2023 Chloride [Moles/Vol] 105 mmol/L 98-107 [facility] Glucose [Mass/Vol] 111 mg/dL 74-106 [facility] Comment on above: Fasting Glucose resu lt from 100 to 125 mg/dL suggests IMPAIRED HOMEOSTASIS per A.D.A. criteria. Hemoglobin (Bld) [Mass/Vol] 8.2 g/dL 12.0-15.0 [facility] Potassium [Moles/Vol] 4.3 mmol/L 3.5-5.1 [facility] Sodium [Moles/Vol] 141 mmol/L 136-145 [facility] WBC (Bld) [#/Vol] 16.3 10*3/uL 4.4-11.0 [facility] CBC-Complete Blood Cnt No Di ffon 06-14-2023 Erythrocyte distribution width (RBC) [Ratio] 15.5 % High 11.6-14.6 [facility] Comment on above: Performed By: #### L 101.9900, L500.2500, L501.8820, L100.0500 ####[facility] [address] [place], [address] Hematocrit (Bld) [Volume fraction] 26.8 % Low 37-47 [facility] Comment on above: Performed By: #### L 101.9900, L500.2500, L501.8820, L100.0500 ####[facility] [address] [place], [address] Hemoglobin (Bld) [Mass/Vol] 8.2 g/dL Low 12.0-15.0 [facility] Comment on above: Performed By: #### L 101.9900, L500.2500, L501.8820, L100.0500 ####[facility] [address] [place], [address] MCH (RBC) [Entitic mass] 24.6 pg Low 27.0-32.0 [facility] Comment on above: Performed By: #### L 101.9900, L500.2500, L501.8820, L100.0500 ####[facility] [address] [place], [address] MCHC (RBC) [Mass/Vol] 30.6 g/dL Low 32-36 [facility] Comment on above: Performed By: #### L 101.9900, L500.2500, L501.8820, L100.0500 ####[facility] [address] [place], [address] MCV (RBC) [Entitic vol] 80.5 fL Low 81-99 [facility] Comment on above: Performed By: #### L 101.9900, L500.2500, L501.8820, L100.0500 ####[facility] [address] [place], [address] Platelet mean volume (Bld) [Entitic vol] 8.3 fL Normal 6.2-12.0 [facility] Comment on above: Performed By: #### L 101.9900, L500.2500, L501.8820, L100.0500 ####[facility] [address] [place], [address] Platelets (Bld) [#/Vol] 347 10*3/uL Normal 150-450 [facility] Comment on above: Performed By: #### L 101.9900, L500.2500, L501.8820, L100.0500 ####[facility] [address] [place], [address] RBC (Bld) [#/Vol] 3.33 10*6/uL Low 4.2-5.4 [facility] Comment on above: Performed By: #### L 101.9900, L500.2500, L501.8820, L100.0500 ####[facility]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 Tech: Madonna Martinez SA; Darrian Mullen SA SURGERY/PROCEDURE(S): Posterolateral fusion with instrumentation L4-S1, bilateral iliac bolts, decompression L5-S1 with removal epidural abscess. IANDD of L5-S1 disc base. ANESTHESIA: General FINDINGS: See dictation ESTIMATED BLOOD LOSS: 300 cc SPECIMENS: Tissue biopsies and cultures were obtained from the L5-S1 disc space. COMPLICATIONS: None DRAINS: Medium Hemovac drain exit out of the right side the patient. CLOSURE TECHNIQUE: Primary PRE-OP/PRE-PROCEDURE DIAGNOSIS: Discitis osteomyelitis with epidural abscess/phlegmon L5-S1. POST-OP/POST-PROCEDURE DIAGNOSIS: Same as Preop SIGNATURE: Dylan Finn DO PATIENT NAME: Zoila Webster DATE: June 04, 2023 TIME: 5:08 PM [facility] Bacteria Bld Culton 06-04-19 24 Bacteria identified Cx Nom (Bld) CULTURE, BLOOD: No growth 5 days Normal [facility] Comment on above: Performed By: #### 6 00-7 ####[facility] [id number] [place] [address] [place] Bacteria identified Cx Nom (Bld) CULTURE, BLOOD: No growth 5 days Normal [facility] Comment on above: Performed By: #### 6 00-7 ####[facility] [id number] [place] [address] [place] Bacteria Spec Anaerobe Culto n 06-04-2023 Bacteria identified Anaer cx Nom (Unsp spec) Negative Normal [facility] Comment on above: Performed By: #### 6 35-3 ####[facility] [id number] [place] [address] [place] Performed By: #### 4 3408-4, 635-3 ####[facility] [id number] [place] [address] [place] Bacteria Tiss Culton 024 Bacteria identified Cx Nom (Tiss) ORGANISM ID: 1 Few Methicillin resistant Staphylococcus aureus GRAM STAIN: Few Polymorphonuclear leukocytes Rare Gram positive cocci ORGANISM ID: 1 (METHICILLIN RESISTANT STAPHYLOCOCCUS AUREUS) --------- ANTIBIOTIC INTERPRETATION DANY STATUS REFERENCE RANGE --------- Oxacillin R >2 F Susceptible <=2 , Intermediate >2 , Resistant >2 Oxacillin resistant Staphylococci are resistant to all beta-lactam antibiotics (except new cephalosporins with anti-MRSA activity i.e. ceftaroline) Gentamicin S <=2 F Susceptible <=4 , Intermediate >4 , Resistant >8 Erythromycin R >4 F Susceptible <=0.5 , Intermediate >.5 , Resistant >4 Clindamycin S <=0.5 F Susceptible <=0.5 , Intermediate >.5 , Resistant >2 This isolate does not demonstrate inducible Clindamycin resistance in vitro. Trimeth sulfameth R >4 F Vancomycin S 1 F Susceptible <=2 , Intermediate >2 , Resistant >=16 Daptomycin S <=1 F Susceptible <=1 , Nonsusceptible >1 Linezolid S 2 F Susceptible <=4 , Intermediate >4 , Resistant >4 Rifampin S <=0.5 F Susceptible <=1 , Intermediate >1 , Resistant >2 Rifampin should not be used alone for antimicrobial therapy. Tetracycline S <=0.5 F Susceptible <=4 , Intermediate >4 , Resistant >8 Abnormal [facility] Comment on above: Performed By: #### 4 3408-4, 635-3 ####[facility] [id number] [place] [id number] [place] Bacteria Wnd Culton 06-04-19 24 Bacteria identified Cx Nom (Wound) CULTURE, WOUND: No growth 3 days GRAM STAIN: Rare Polymorphonuclear leukocytes No organisms seen Normal [facility] Comment on above: Performed By: #### 6 462-6 ####[facility] [id number] [place] [address] [place] Basic metabolic 2000 panelon 06-04-2023 Anion gap [Moles/Vol] 5 mmol/L Normal 5-16 [facility] Comment on above: Order Comment: Speci men Type: BLOOD SPECIMEN Ordering Facility: [facility] Address: [address] [place] [address] Performed By: #### 5 7021-8, 4537-7 #### [facility] CLIA [id number] [address] [place] [address] [place] Calcium [Mass/Vol] 10.3 mg/dL Normal 8.5-10.5 [facility] Comment on above: Order Comment: Speci men Type: BLOOD SPECIMEN Ordering Facility: [facility] Address: [address] [place] [address] Performed By: #### 5 7021-8, 4537-7 #### [facility] CLIA [id number] [address] [place] [address] [place] Chloride [Moles/Vol] 106 mmol/L Normal 98-107 [facility] Comment on above: Order Comment: Speci men Type: BLOOD SPECIMEN Ordering Facility: [facility] Address: [address] [place] [address] Performed By: #### 5 7021-8, 4537-7 #### [facility] CLIA [id number] [address] [place], [place] [address] [place] CO2 [Moles/Vol] 27 mmol/L Normal 21-32 [facility] Comment on above: Order Comment: Speci men Type: BLOOD SPECIMEN Ordering Facility: [facility] Address: [address] [place] [address] Performed By: #### 5 7021-8, 4537-7 #### [facility] CLIA [id number] [address] [place] [address] [place] Creatinine [Mass/Vol] 0.52 mg/dL Normal 0.51-0.95 [facility] Comment on above: Order Comment: Speci men Type: BLOOD SPECIMEN Ordering Facility: [facility] Address: [address] [place] [address] Result Comment: Caron ents receiving either N-Acetylcysteine (NAC) or Metamizole prior to venipuncture, may have falsely depressed results. Performed By: #### 5 7021-8, 4537-7 #### [facility] CLIA [id number] [address] [place] [address] Creatinine and Glomerular filtration rate.predicted panel (S/P/Bld) 95 mL/min/1.73m??? Normal >=60 [facility] Comment on above: Order Comment: Anny hong Type: BLOOD SPECIMEN Ordering Facility: [facility] Address: [address] [place] [address] Result Comment: Neda mated Glomerular Filtration Rate (eGFR) is calculated using the 2020 CKD-EPI creatinine equation. This equation utilizes serum creatinine, sex, and age as parameters. The creatinine assay has traceable calibration to isotope dilution-mass spectrometry. Refer to KDIGO guidelines for clinical interpretation. In patients with unstable renal function, e.g. those with acute kidney injury, the eGFR may not accurately reflect actual GFR. Performed By: #### 5 7021-8, 4537-7 #### [facility] CLIA [id number] [address] [place] [address] [place] Glucose [Mass/Vol] 109 mg/dL High 70-100 [facility] Comment on above: Order Comment: Anny hong Type: BLOOD SPECIMEN Ordering Facility: [facility] Address: [address] [place] [address] Result Comment: The [place] Diabetes Association (ADA) provides guidance for cutoff values for fasting glucose and random glucose. The ADA defines fasting as no caloric intake for at least 8 hours. Fasting plasma glucose results between 100 to 125 mg/dL indicate increased risk for diabetes (prediabetes). Fasting plasma glucose results greater than or equal to 126 mg/dL meet the criteria for diagnosis of diabetes. In the absence of unequivocal hyperglycemia, results should be confirmed by repeat testing. In a patient with classic symptoms of hyperglycemia or hyperglycemic crisis, random plasma glucose results greater than or equal to 200 mg/dL meet the criteria for diagnosis of diabetes. Reference: Standards of Medical Care in Diabetes 2016, [place] Diabetes Association. Diabetes Care. 2016.39(Suppl 1). Results may be falsely elevated after the administration of Sulfapyridine. Results may be falsely depressed after the administration of Sulfasalazine. Performed By: #### 5 7021-8, 4537-7 #### [facility] CLIA [id number] [address] [place] [address] [place] Potassium [Moles/Vol] 5.0 mmol/L Normal 3.5-5.1 [facility] Comment on above: Order Comment: Speci men Type: BLOOD SPECIMEN Ordering Facility: [facility] Address: [address] [place] [address] Performed By: #### 5 7021-8, 4537-7 #### [facility] CLIA [id number] [address] [place] [address] [place] Sodium [Moles/Vol] 138 mmol/L Normal 136-145 [facility] Comment on above: Order Comment: Speci men Type: BLOOD SPECIMEN Ordering Facility: [facility] Address: [address] [place] [address] Performed By: #### 5 7021-8, 4537-7 #### [facility] CLIA [id number] [address] [place] [address] [place] Urea nitrogen [Mass/Vol] 28 mg/dL High 7-26 [facility] Comment on above: Order Comment: Speci men Type: BLOOD SPECIMEN Ordering Facility: [facility] Address: [address] [place] [address] Performed By: #### 5 7021-8, 4537-7 #### [facility] CLIA [id number] [address] [place] [address] [place] CBC W Auto Differential pane l (Bld)on 06-04-2023 Basophils (Bld) [#/Vol] 10*3/uL Normal <0.11 [facility] Comment on above: Order Comment: Speci men Type: BLOOD SPECIMEN Ordering Facility: [facility] Address: [address] [place] [address] Performed By: #### 5 7021-8, 453-7 #### [facility] CLIA [id number] [address] [place] [address] [place] Basophils/100 WBC (Bld) 0.1 % Normal [facility] Comment on above: Order Comment: Speci men Type: BLOOD SPECIMEN Ordering Facility: [facility] Address: [address] [place] [address] Performed By: #### 5 7021-8, 7 #### [facility] CLIA [id number] [address] [place] [address] [place] Differential cell count method Nom (Bld) Auto Normal [facility] Comment on above: Order Comment: Speci men Type: BLOOD SPECIMEN Ordering Facility: [facility] Address: [address] [place] [address] Performed By: #### 5 7021-8, 7-7 #### [facility] CLIA [id number] [address] [place] [address] [place] Eosinophils (Bld) [#/Vol] 0.03 10*3/uL Normal <0.46 [facility] Comment on above: Order Comment: Speci men Type: BLOOD SPECIMEN Ordering Facility: [facility] Address: [address] [place] [address] Performed By: #### 5 7021-8, 4537-7 #### [facility] CLIA [id number] [address] [place] [address] [place] Eosinophils/100 WBC (Bld) 0.2 % Normal [facility] Comment on above: Order Comment: Speci men Type: BLOOD SPECIMEN Ordering Facility: [facility] Address: [address] [place] [address] Performed By: #### 5 7021-8, 4537-7 #### [facility] CLIA [id number] [address] [place] [address] [place] Erythrocyte distribution width (RBC) [Ratio] 14.8 % Normal 11.5-15.0 [facility] Comment on above: Order Comment: Speci men Type: BLOOD SPECIMEN Ordering Facility: [facility] Address: [address] [place] [address] Performed By: #### 5 7021-8, 4537-7 #### [facility] CLIA [id number] [address] [place] [address] [place] Hematocrit (Bld) [Volume fraction] 33.7 % Low 36.0-46.0 [facility] Comment on above: Order Comment: Speci men Type: BLOOD SPECIMEN Ordering Facility: [facility] Address: [address] [place] [address] Performed By: #### 5 7021-8, 4537-7 #### [facility] CLIA [id number] [address] [place] [address] [place] Hemoglobin (Bld) [Mass/Vol] 10.8 g/dL Low 11.5-15.5 [facility] Comment on above: Order Comment: Speci men Type: BLOOD SPECIMEN Ordering Facility: [facility] Address: [address] [place] [address] Performed By: #### 5 7021-8, 4537-7 #### [facility] CLIA [id number] [address] [place] [address] [place] Immature granulocytes (Bld) [#/Vol] 0.14 10*3/uL High <0.10 [facility] Comment on above: Order Comment: Speci men Type: BLOOD SPECIMEN Ordering Facility: [facility] Address: [address] [place] [address] Performed By: #### 5 7021-8, 4536-7 #### [facility] CLIA [id number] [address] [place] [address] [place] Immature granulocytes/100 WBC (Bld) 0.9 % Normal [facility] Comment on above: Order Comment: Speci men Type: BLOOD SPECIMEN Ordering Facility: [facility] Address: [address] [place] [address] Performed By: #### 5 7021-8, 7 #### [facility] CLIA [id number] [address] [place] [address] [place] Lymphocytes (Bld) [#/Vol] 2.95 10*3/uL Normal 1.00-4.00 [facility] Comment on above: Order Comment: Speci men Type: BLOOD SPECIMEN Ordering Facility: [facility] Address: [address] [place] [address] Performed By: #### 5 7021-8, 7 #### [facility] CLIA [id number] [address] [place] [address] [place] Lymphocytes/100 WBC (Bld) 18.9 % Normal [facility] Comment on above: Order Comment: Speci men Type: BLOOD SPECIMEN Ordering Facility: [facility] Address: [facility] [place] [address] Performed By: #### 5 7021-8, 4536-7 #### [facility] CLIA [id number] [address] [place] [address] [place] MCH (RBC) [Entitic mass] 25.0 pg Low 26.0-34.0 [facility] Comment on above: Order Comment: Speci men Type: BLOOD SPECIMEN Ordering Facility: [facility] Address: [facility] [place] [address] Performed By: #### 5 7021-8, 4536-7 #### [facility] CLIA [id number] [address] [place] [address] [place] MCHC (RBC) [Mass/Vol] 32.0 g/dL Normal 30.5-36.0 [facility] Comment on above: Order Comment: Speci men Type: BLOOD SPECIMEN Ordering Facility: [facility] Address: [address] [place] [id number] Performed By: #### 5 7021-8, 4537-7 #### [facility] CLIA [id number] [address] [place] [address] [place] MCV (RBC) [Entitic vol] 78.0 fL Low 80.0-100.0 [facility] Comment on above: Order Comment: Speci men Type: BLOOD SPECIMEN Ordering Facility: [facility] Address: [address] [place] [address] Performed By: #### 5 7021-8, 4537-7 #### [facility] CLIA [id number] [address] [place] [address] [place] Monocytes (Bld) [#/Vol] 1.14 10*3/uL High <0.87 [facility] Comment on above: Order Comment: Speci men Type: BLOOD SPECIMEN Ordering Facility: [facility] Address: [address] [place] [address] Performed By: #### 5 7021-8, 4537-7 #### [facility] CLIA [id number] [address] [place] [address] [place] Monocytes/100 WBC (Bld) 7.3 % Normal [facility] Comment on above: Order Comment: Speci men Type: BLOOD SPECIMEN Ordering Facility: [facility] Address: [address] [place] [address] Performed By: #### 5 7021-8, 4537-7 #### [facility] CLIA [id number] [address] [place] [address] [place] Neutrophils (Bld) [#/Vol] 11.33 10*3/uL High 1.45-7.50 [facility] Comment on above: Order Comment: Speci men Type: BLOOD SPECIMEN Ordering Facility: [facility] Address: [address] [place], [place] [address] Performed By: #### 5 7021-8, 4537-7 #### [facility] CLIA [id number] [address] [place] [address] [place] Neutrophils/100 WBC (Bld) 72.6 % Normal [facility] Comment on above: Order Comment: Speci men Type: BLOOD SPECIMEN Ordering Facility: [facility] Address: [address] [place] [address] Performed By: #### 5 7021-8, 4536-7 #### [facility] CLIA [id number] [address] [place] [address] [place] Nucleated RBC (Bld) [#/Vol] 10*3/uL Normal <0.01 [facility] Comment on above: Order Comment: Speci men Type: BLOOD SPECIMEN Ordering Facility: [facility] Address: [address] [place] [address] Performed By: #### 5 7021-8, 4536-7 #### [facility] CLIA [id number] [address] [place] [address] [place] Nucleated RBC/100 WBC (Bld) [Ratio] 0.0 /100 WBC Normal [facility] Comment on above: Order Comment: Speci men Type: BLOOD SPECIMEN Ordering Facility: [facility] Address: [address] [place] [address] Performed By: #### 5 7021-8, 4536-7 #### [facility] CLIA [id number] [address] [place] [address] [place] Platelet mean volume (Bld) [Entitic vol] 8.5 fL Low 9.0-12.7 [facility] Comment on above: Order Comment: Speci men Type: BLOOD SPECIMEN Ordering Facility: [facility] Address: [address] [place] [address] Performed By: #### 5 7021-8, 4537-7 #### [facility] CLIA [id number] [address] [place] [address] [place] Platelets (Bld) [#/Vol] 441 10*3/uL High 150-400 [facility] Comment on above: Order Comment: Speci men Type: BLOOD SPECIMEN Ordering Facility: [facility] Address: [address] [place], [place] [address] Performed By: #### 5 7021-8, 4537-7 #### [facility] CLIA [id number] [address] [place], [place] [address] [place] RBC (Bld) [#/Vol] 4.32 10*6/uL Normal 3.90-5.20 [facility] Comment on above: Order Comment: Speci men Type: BLOOD SPECIMEN Ordering Facility: [facility] Address: [address] [place], [place] [address] Performed By: #### 5 7021-8, 4537-7 #### [facility] CLIA [id number] [address] [place], [place] [address] [place] WBC (Bld) [#/Vol] 15.61 10*3/uL High 3.70-11.00 [facility] Comment on above: Order Comment: Speci men Type: BLOOD SPECIMEN Ordering Facility: [facility] Address: [address] [place] [address] Performed By: #### 5 7021-8, 4537-7 #### [facility] CLIA [id number] [address] [place], [place] [address] [place] ECHOon 06-04-2023 Echocardiography Echocardiography Rep ort: Transthoracic Echo [facility] Date of service: 06/04/2023 10:45:44 AM Ordering physician: BUCK AYALA Indication: INFECTIVE ENDOCARDITIS Technologist: Eze Vicente RDCS Interpreting physician: James Almaraz MD PATIENT: Name: ZOILA WEBSTER : 1945 Age: 78 years Gender: F Primary rhythm: sinus. Secondary rhythm: PVC. Height: 147.30 cm BSA: 1.36 m Weight: 45.40 kg BMI: 20.9 kg/m Heart rate 74 bpm Blood pressure 127/73 mmHg Color Doppler was utilized to interrogate the cardiac valves assessed and spectral Doppler was utilized to determine the flow velocities and pressure gradients reported in this exam. MEASUREMENTS: Value Indexed Normal Max aortic dimension 3.3 cm Ao < 3.8 Left atrial volume 27 ml (biplane A-L) 20 ml/m Tommie <= 34 LV ID (diastole) 4.1 cm (2D) 3.01 cm/m LV ID (systole) 2.7 cm (2D) 1.98 cm/m IVS, leaflet tips 1.1 cm (2D) Posterior wall thickness 1.2 cm (2D) Left ventricular mass 161 g (2D) 118 g/m LVOT stroke volume 49 ml 36 ml/m Ejection Fraction 45 % (visual est.) EF > 54 FINDINGS: LEFT VENTRICLE The left ventricle is normal in size. Left ventricular systolic function is mildly decreased. Grade I left ventricular diastolic dysfunction. Mitral annular lateral E/e': 8.4. Mitral annular septal E/e': 12.0. Wall Motion: All scored segments are normal. RIGHT VENTRICLE The right ventricle is normal in size. Right ventricular systolic function is normal. RV systolic tissue Doppler velocity is 14.2 cm/s. Tricuspid annular displacement is 1.8 cm. Estimated right ventricular systolic pressure is 18 mmHg consistent with normal pulmonary artery pressures. Estimated right atrial pressure is 3 mmHg based on IVC assessment. LEFT ATRIUM The left atrial cavity is normal in size. RIGHT ATRIUM The right atrial cavity is normal in size. Unable to reliably measure RA volume due to technical limitations. Inferior Vena Cava: The inferior vena cava appears normal measuring 0.7 cm. The vessel decreases greater than 50 percent with inspiration. MITRAL VALVE There is no mitral stenosis. There is mild (1+) mitral valve regurgitation. The peak mitral valve gradient is 4 mmHg. The mean mitral valve gradient is 2 mmHg. The pressure half time is 77 msec. The peak mitral E/A ratio is 0.65. The average mitral E/e' ratio is 10.2. The mitral flow deceleration time is 264 msec. TRICUSPID VALVE There is no tricuspid stenosis. There is mild (1+) tricuspid valve regurgitation. AORTIC VALVE There is no aortic valve stenosis. There is no aortic valve regurgitation. There is mild calcification. The peak gradient is 10 mmHg (peak velocity = 162.0 cm/s). The mean gradient is 7 mmHg. The LVOT mean velocity is 48.9 cm/s. The LVOT diameter is 2.1 cm. The aortic VTI is 31.7 cm. The mean velocity in the aortic valve is 123.0 cm/s. The dimensionless valve index is 0.44. AV area is 1.54 cm (1.13 cm /m ) by continuity, VTI. The LVOT stroke volume index is 36 ml/m . PULMONIC VALVE There is no pulmonic stenosis. There is trace pulmonic valve regurgitation. The peak gradient is 3 mmHg. AORTA The visualized aorta is normal in size. Measurements - Sinus: 3.3 cm. Sinotubular junction 2.7 cm. Mid ascending aorta 3.2 cm. PERICARDIUM The pericardium is normal. There is no pericardial effusion. CONCLUSIONS: - Exam indication: INFECTIVE ENDOCARDITIS - The left ventricle is normal in size. Left ventricular systolic function is mildly decreased. EF = 45 5% (visual est.) - The right ventricle is normal in size. Right ventricular systolic function is normal. - The patient has not had a prior CC echocardiographic exam for comparison. * * * Final * * * CC [employer] Image : [id number] Normal [facility] Iron and Iron binding capaci ty panelon 06-04-2023 Iron [Mass/Vol] 58 ug/dL Normal 50-170 [facility] Comment on above: Order Comment: Anny hong Type: BLOOD SPECIMEN Ordering Facility: [facility] Address: [address] [place] [address] Result Comment: Caron ents treated with metal-binding drugs (e.g.deferoxamine) may have depressed iron values, as chelated iron may not properly react in the Siemens iron assay. Performed By: #### 5 7021-8, 4537-7 #### [facility] CLIA [id number] [address] [place] [address] [place] Iron binding capacity [Mass/Vol] 336 ug/dL Normal 221-481 [facility] Comment on above: Order Comment: Anny hong Type: BLOOD SPECIMEN Ordering Facility: [facility] Address: [address] [place], [place] [address] Performed By: #### 5 7021-8, 4537-7 #### [facility] CLIA [id number] [address] [place], [place] [address] [place] Iron/TIBC [Molar ratio] 17.3 % Low 22.0-44.0 [facility] Comment on above: Order Comment: Speci men Type: BLOOD SPECIMEN Ordering Facility: [facility] Address: [address] [place], [place] [address] Performed By: #### 5 7021-8, 4537-7 #### [facility] CLIA [id number] [address] [place], [place] [address] [place] Microorganism Spec Culton Microorganism identified Cx Nom (Unsp spec) CULTURE, FUNGAL: No Fungus isolated after 28 days FUNGAL SMEAR: No fungus seen Normal [facility] Comment on above: Performed By: #### 1 1475-1 ####[facility] LABCLIA [id number] [facility] [place] [id number] [place] OPERATIVE NOon 06-04-2023 OPERATIVE NO HNO ID: [id number] Author: DYLAN FINN DO Service: Orthopaedic Surgery Author Type: Physician Type: Operative Report Filed: 06/06/2023 10:52 Note Text: [facility] - OPERATIVE REPORT ZOILA WEBSTER Ysabel : 1945 AGE: 78. SEX: F PATIENT TYPE: I HOSP SVC: Surgical LOCATION: [id number] ATTENDING PHYSICIAN: BUCK ALVES NUMBER: [id number] DATE OF SURGERY/PROCEDURE: 06/04/2023 INCISION/PROCEDURE START TIME: 2:11 PM INCISION CLOSE/PROCEDURE END TIME: 5:18 PM PREOPERATIVE DIAGNOSIS: POSTOPERATIVE DIAGNOSIS: SURGEON: Dylan Finn DO AUTO BODY STRAIGHTENER: SA. Aileen SURGERY/PROCEDURE: ANESTHESIA: General endotracheal, Dr. Stratton. PREOPERATIVE DIAGNOSES: 1. L5-S1 diskitis, osteomyelitis. 2. L5-S1 phlegmon/epidural abscess, L5-S1. 3. Intractable back pain as well as radicular symptoms. POSTOPERATIVE DIAGNOSES: 1. L5-S1 diskitis, osteomyelitis. 2. L5-S1 phlegmon/epidural abscess, L5-S1. 3. Intractable back pain as well as radicular symptoms. 4. The patient's blood cultures came back with MRSA. The patient has a history of MRSA infection 3 months ago. NAME OF OPERATIONS: 1. Posterolateral fusion with instrumentation, L4-S1. 2. Bilateral iliac bolt placement. 3. Decompression at the L5-S1 level. 4. An evacuation of an epidural phlegmon at L5-S1 and removal of disk material at L5- S1. 5. BMP cancellous chips and DBM and fibergraft matrix were placed in the posterolateral gutters and into the L5-S1 disk space for fusion purposes. FLUIDS: Per Anesthesia. ESTIMATED BLOOD LOSS: 300 mL. COMPLICATIONS: There were no complications. No changes in neuromonitoring. DRAINS: Hemovac drain was placed subfascially and exited out a separate incision on the right side of the patient. DISPOSITION: PACU and will be admitted back to the floor for postoperative care. 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 She was in a long-term acute care facility and was recently taken home and unfortunately started having back pain. She came to [facility] and saw somebody through the office other than myself, who ordered an MRI. After the MRI was ordered, the MRI was passed to me to find out what this patient should do. Due to seeing her having extensive infection and there was concern of infection in the thoracic spine, she needed an MRI with contrast and so I sent her to the ER. The MRI with contrast was actually done in throughout the ER. There was nothing in the thoracic spine other than the T10 compression deformity, but she did have osteomyelitis, diskitis and possible phlegmon collection at L5-S1. Now, she was admitted to the floor to the hospital team. Her blood cultures came back as positive for MRSA. She did have elevated white count. Now at this point, I am seeing this patient. I explained to her options. My concern was that she was having horrible pain and could not even get out of bed. Now, I did talk to the as well as the daughter, who provided much of the history and they wanted to proceed with operative intervention. The risks, benefits, alternative treatment were discussed. They understood, signed the informed consent, and wanted to proceed. DESCRIPTION OF PROCEDURE: The patient was met in the preoperative holding area by myself and the Anesthesia team. The patient had the consent signed and HP was updated. She was brought back by the Anesthesia team and underwent successful endotracheal anesthesia. The patient was taken from a supine lateral to prone position on the Jesse bed. She was positioned accordingly and was prepped and draped in a normal sterile fashion in the lower lumbar spine free for operative intervention. At this time, a formal time-out was performed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 NED PAK ([id number])[facility] ([facility])[address] [place] [address] WBC (Bld) [#/Vol] 9.0 10*3/uL Normal 3.6-10.7 [facility] Comment on above: Performed By: #### L AB294 ####Windows Infrastructure Engineer: NED PAK ([id number])[facility] ([facility])[address] [place] [address] MAGNESIUMon 02-08-2023 Magnesium [Mass/Vol] 2.4 mg/dL High 1.6-2.3 [facility] Comment on above: Performed By: #### L AB15, [id number] ####Windows Infrastructure Engineer: NED PAK ([id number])[facility])[address] [place] [address] Progress Noteon 02-08-2023 Progress Note Normal [facility] Progress Note Normal [facility] Progress Note Normal [facility] Progress Note Normal [facility] Progress Note Normal [facility] XR CERVICAL SPINE 2-3 VIEWSo n 02-08-2023 XR CERVICAL SPINE 2-3 VIEWS Normal [facility] BASIC METABOLIC PANELon 01-20 Anion gap [Moles/Vol] 5 mmol/L Normal 3-13 [facility] Comment on above: Performed By: #### L AB40, LAB15 ####Windows Infrastructure Engineer: NED PAK ([id number])[facility])[address] [place] [address] Calcium [Mass/Vol] 8.9 mg/dL Normal 8.4-10.4 [facility] Comment on above: Performed By: #### L AB40, LAB15 ####Windows Infrastructure Engineer: NED PAK ([id number])[facility] ([facility])[address] [place] [address] Chloride [Moles/Vol] 114 mmol/L High 98-107 [facility] Comment on above: Performed By: #### L AB40, LAB15 ####Windows Infrastructure Engineer: NED PAK ([id number])[facility] ([facility])[address] [place] [address] CO2 [Moles/Vol] 26 mmol/L Normal 22-30 [facility] Comment on above: Performed By: #### L AB40, LAB15 ####Windows Infrastructure Engineer: NED PAK ([id number])[facility])[address] [place] [address] Creatinine [Mass/Vol] 0.77 mg/dL Normal 0.52-1.04 [facility] Comment on above: Performed By: #### L AB40, LAB15 ####Windows Infrastructure Engineer: NED PAK ([id number])[facility])[address] [place] [address] [place] GLOMERULAR FILTRATION RATE ML/MIN/1.73 SQ M.PREDICTED 79.1 mL/min/1.73m*2 Normal >60.0 [facility] Comment on above: Result Comment: Calc ulation based on the Chronic Kidney Disease Epidemiology Collaboration (CKD-EPI) equation refit without adjustment for race Performed By: #### L AB40, LAB15 ####Windows Infrastructure Engineer: NED PAK ([id number])[facility])[address] [place] [address] Glucose [Mass/Vol] 105 mg/dL High 70-100 [facility] Comment on above: Performed By: #### L AB40, LAB15 ####Windows Infrastructure Engineer: NED PAK ([id number])[facility])[address] [place] [address] Potassium [Moles/Vol] 3.7 mmol/L Normal 3.5-5.1 [facility] Comment on above: Performed By: #### L AB40, LAB15 ####Windows Infrastructure Engineer: NED PAK ([id number])[facility])[address] [place] [address] Sodium [Moles/Vol] 145 mmol/L Normal 135-145 [facility] Comment on above: Performed By: #### L AB40, LAB15 ####Windows Infrastructure Engineer: NED PAK ([id number])[address] Urea nitrogen [Mass/Vol] 16 mg/dL Normal 7-17 [facility] Comment on above: Performed By: #### L AB40, LAB15 ####Windows Infrastructure Engineer: NED PAK ([id number])[address] Progress Noteon 02-07-2023 Progress Note Normal [facility] Progress Note Normal [facility] VANCOMYCIN, RANDOMon 023 VANCOMYCIN 20.9 ug/mL High 15.0-20.0 [facility] Comment on above: Order Comment: Pleas e obtain a random vancomycin level with am labs. Obtain at least 2 hours after the END of an infusion or before the next dose due if scheduled dose is timed near blood draw. Performed By: #### L AB40, LAB15 ####Windows Infrastructure Engineer: NED PAK ([id number])[facility] [place] [address] BASIC METABOLIC PANELon 11-1 Anion gap [Moles/Vol] 5 mmol/L Normal 3-13 [facility] Comment on above: Performed By: #### L AB15 ####Windows Infrastructure Engineer: NED PAK ([id number])[facility])[address] [place] [address] Calcium [Mass/Vol] 9.2 mg/dL Normal 8.4-10.4 [facility] Comment on above: Performed By: #### L AB15 ####Windows Infrastructure Engineer: NED PAK ([id number])[facility] ([facility])[address] [place] [address] Chloride [Moles/Vol] 113 mmol/L High 98-107 [facility] Comment on above: Performed By: #### L AB15 ####Windows Infrastructure Engineer: NED PAK ([id number])[facility] ([facility])[address] [place] [address] CO2 [Moles/Vol] 28 mmol/L Normal 22-30 [facility] Comment on above: Performed By: #### L AB15 ####Windows Infrastructure Engineer: NED PAK ([id number])[facility] ([facility])[address] [place] [address] Creatinine [Mass/Vol] 0.81 mg/dL Normal 0.52-1.04 [facility] Comment on above: Performed By: #### L AB15 ####Windows Infrastructure Engineer: NED PAK ([id number])[facility] ([facility])[address] [place] [address] [place] GLOMERULAR FILTRATION RATE ML/MIN/1.73 SQ M.PREDICTED 74.4 mL/min/1.73m*2 Normal >60.0 [facility] Comment on above: Result Comment: Calc ulation based on the Chronic Kidney Disease Epidemiology Collaboration (CKD-EPI) equation refit without adjustment for race Performed By: #### L AB15 ####Windows Infrastructure Engineer: NED PAK ([id number])[facility] [place] [address] [place] Glucose [Mass/Vol] 134 mg/dL High 70-100 [facility] Comment on above: Performed By: #### L AB15 ####Windows Infrastructure Engineer: NED PAK ([id number])[facility] ([facility])[address] [place] [address] [place] Potassium [Moles/Vol] 3.8 mmol/L Normal 3.5-5.1 [facility] Comment on above: Performed By: #### L AB15 ####Windows Infrastructure Engineer: NED PAK ([id number])[facility] ([facility])[address] [place] [address] Sodium [Moles/Vol] 145 mmol/L Normal 135-145 [facility] Comment on above: Performed By: #### L AB15 ####Windows Infrastructure Engineer: NED PAK ([id number])[facility] ([facility])[address] [place] [address] [place] Urea nitrogen [Mass/Vol] 17 mg/dL Normal 7-17 [facility] Comment on above: Performed By: #### L AB15 ####Windows Infrastructure Engineer: NED PAK ([id number])[facility] ([facility])[address] [place] [address] Anion gap [Moles/Vol] 4 mmol/L Normal 3-13 [facility] Comment on above: Performed By: #### L AB103, [id number], LAB15 ####Windows Infrastructure Engineer: NED PAK ([id number])[facility] [place] [address] [place] Calcium [Mass/Vol] 8.7 mg/dL Normal 8.4-10.4 [facility] Comment on above: Performed By: #### L AB103, [id number], LAB15 ####Windows Infrastructure Engineer: NED PAK ([id number])[facility] [place] [address] [place] Chloride [Moles/Vol] 113 mmol/L High 98-107 [facility] Comment on above: Performed By: #### L AB103, [id number], LAB15 ####Windows Infrastructure Engineer: NED PAK ([id number])[facility])[address] [place] [address] CO2 [Moles/Vol] 29 mmol/L Normal 22-30 [facility] Comment on above: Performed By: #### L AB103, [id number], LAB15 ####Windows Infrastructure Engineer: NED PAK ([id number])[facility])[address] [place] [address] Creatinine [Mass/Vol] 0.80 mg/dL Normal 0.52-1.04 [facility] Comment on above: Performed By: #### L AB103, [id number], LAB15 ####Windows Infrastructure Engineer: NED PAK ([id number])[facility])[address] [place] [address] GLOMERULAR FILTRATION RATE ML/MIN/1.73 SQ M.PREDICTED 75.5 mL/min/1.73m*2 Normal >60.0 [facility] Comment on above: Result Comment: Calc ulation based on the Chronic Kidney Disease Epidemiology Collaboration (CKD-EPI) equation refit without adjustment for race Performed By: #### L AB103, [id number], LAB15 ####Windows Infrastructure Engineer: NED PAK ([id number])[facility] ([facility])[address] [place] [address] Glucose [Mass/Vol] 97 mg/dL Normal 70-100 [facility] Comment on above: Performed By: #### L AB103, [id number], LAB15 ####Windows Infrastructure Engineer: NED PAK ([id number])[facility])[address] [place] [address] Potassium [Moles/Vol] 3.4 mmol/L Low 3.5-5.1 [facility] Comment on above: Performed By: #### L AB103, [id number], LAB15 ####Windows Infrastructure Engineer: NED PAK ([id number])[facility])[address] [place] [address] Sodium [Moles/Vol] 146 mmol/L High 135-145 [facility] Comment on above: Performed By: #### L AB103, YFY780, LAB15 ####Windows Infrastructure Engineer: NED PAK ([id number])[facility])[address] [place] [address] Urea nitrogen [Mass/Vol] 19 mg/dL High 7-17 [facility] Comment on above: Performed By: #### L AB103, [id number], LAB15 ####Windows Infrastructure Engineer: NED PAK ([id number])[facility] ([facility])[address] [place] [address] CBC WITH AUTO DIFFERENTIALon 02-06-2023 Basophils (Bld) [#/Vol] 0.1 10*3/uL Normal 0.0-0.2 [facility] Comment on above: Performed By: #### L [id number] ####Windows Infrastructure Engineer: NED PAK ([id number])[facility])[address] [place] [address] Basophils/100 WBC (Bld) 0.8 % Normal 0.0-2.0 [facility] Comment on above: Performed By: #### L [id number] ####Windows Infrastructure Engineer: NED PAK ([id number])[facility])[address] [place] [address] Eosinophils (Bld) [#/Vol] 0.1 10*3/uL Normal 0.0-0.5 [facility] Comment on above: Performed By: #### L [id number] ####Windows Infrastructure Engineer: NED PAK ([id number])[facility])[address] [place] [address] Eosinophils/100 WBC (Bld) 0.9 % Low 1.0-6.0 [facility] Comment on above: Performed By: #### L [id number] ####Windows Infrastructure Engineer: NED PAK ([id number])[facility])[address] [place] [address] Erythrocyte distribution width (RBC) [Ratio] 15.7 % High 11.5-14.5 [facility] Comment on above: Performed By: #### L [id number] ####Windows Infrastructure Engineer: NED PAK ([id number])[facility])[address] [place] [address] ERYTHROCYTE MEAN CORPUSCULAR HEMOGLOBIN CONCENTRATION (G/DL) BY AUTOMATED 32.2 % Normal 32.0-36.0 [facility] Comment on above: Performed By: #### L [id number] ####Windows Infrastructure Engineer: NED PAK ([id number])[facility])[address] [place] [address] Hematocrit (Bld) [Volume fraction] 23.8 % Low 35.0-47.0 [facility] Comment on above: Performed By: #### L [id number] ####Windows Infrastructure Engineer: NED PAK ([id number])[facility])[address] [place] [address] Hemoglobin (Bld) [Mass/Vol] 7.7 g/dL Low 11.7-16.0 [facility] Comment on above: Performed By: #### L [id number] ####Windows Infrastructure Engineer: NED PAK ([id number])[facility])[address] [place] [address] Lymphocytes (Bld) [#/Vol] 1.2 10*3/uL Normal 1.0-4.3 [facility] Comment on above: Performed By: #### L [id number] ####Windows Infrastructure Engineer: NED PAK ([id number])[facility])[address] [place] [address] [place] Lymphocytes/100 WBC (Bld) 14.5 % Low 20.0-40.0 [facility] Comment on above: Performed By: #### L [id number] ####Windows Infrastructure Engineer: NED PAK ([id number])[facility])[address] [place] [address] MCH (RBC) [Entitic mass] 28.3 pg Normal 26.0-34.0 [facility] Comment on above: Performed By: #### L [id number] ####Windows Infrastructure Engineer: NED PAK ([id number])[facility])[address] [place] [address] MCV (RBC) [Entitic vol] 87.9 fL Normal 80.0-98.0 [facility] Comment on above: Performed By: #### L [id number] ####Windows Infrastructure Engineer: NED PAK ([id number])[facility])[address] [place] [address] Monocytes (Bld) [#/Vol] 0.8 10*3/uL Normal 0.0-0.8 [facility] Comment on above: Performed By: #### L [id number] ####Windows Infrastructure Engineer: NED PAK ([id number])[facility])[address] [place] [address] Monocytes/100 WBC (Bld) 9.4 % Normal 2.0-10.0 [facility] Comment on above: Performed By: #### L [id number] ####Windows Infrastructure Engineer: NED PAK ([id number])[facility])[address] [place] [address] Neutrophils (Bld) [#/Vol] 6.4 10*3/uL Normal 1.8-7.0 [facility] Comment on above: Performed By: #### L [id number] ####Windows Infrastructure Engineer: NED PAK ([id number])[facility])[address] [place] [address] Neutrophils/100 WBC (Bld) 74.4 % Normal 40.0-80.0 [facility] Comment on above: Performed By: #### L [id number] ####Windows Infrastructure Engineer: NED PAK ([id number])[facility])[address] [place] [address] NRBC (PER 100 WBCS) BY AUTOMATED COUNT 0.0 /100 WBCs Normal 0.0-2.0 [facility] Comment on above: Performed By: #### L [id number] ####Windows Infrastructure Engineer: NED PAK ([id number])[facility] ([facility])[address] [place] [address] Platelet mean volume (Bld) [Entitic vol] 6.7 fL Low 7.4-12.4 [facility] Comment on above: Performed By: #### L [id number] ####Windows Infrastructure Engineer: NED PAK ([id number])[facility] ([facility])[address] [place] [address] Platelets (Bld) [#/Vol] 510 10*3/uL High 140-440 [facility] Comment on above: Performed By: #### L [id number] ####Windows Infrastructure Engineer: NED PAK ([id number])[facility] ([facility])[address] [place] [address] RBC (Bld) [#/Vol] 2.71 10*6/uL Low 3.8-5.20 [facility] Comment on above: Performed By: #### L [id number] ####Windows Infrastructure Engineer: NED PAK ([id number])[facility] ([facility])[address] [place] [address] WBC (Bld) [#/Vol] 8.6 10*3/uL Normal 3.6-10.7 [facility] Comment on above: Performed By: #### L [id number] ####Windows Infrastructure Engineer: NED PAK ([id number])[facility] ([facility])[address] [place] [address] MAGNESIUMon 02-06-2023 Magnesium [Mass/Vol] 2.5 mg/dL High 1.6-2.3 [facility] Comment on above: Performed By: #### L AB103, TXH683, LAB15 ####Windows Infrastructure Engineer: NED PAK ([id number])[facility])[address] [place] [address] Nursing Noteon 02-06-2023 Nursing Note Notified Renée wolf's daughter that patient was transferred to . Normal [facility] Nursing Note Transport here to [facility] patient to [facility]. 4 bags + of belongings sent with patient. Normal [facility] Nursing Note Patient pulled up in bed. Bed pads changed. BMP sent to lab. Normal [facility] Nursing Note Patient with gown of f and at end of bed. Put gown back on patient. Pulled patient up in bed and changed pull pads. Normal [facility] PHOSPHORUSon 02-06-2023 Phosphate [Mass/Vol] 3.6 mg/dL Normal 2.5-4.5 [facility] Comment on above: Performed By: #### L AB103, [id number], LAB15 ####Windows Infrastructure Engineer: NED PAK ([id number])[facility])[address] [place] [address] Progress Noteon 02-06-2023 Progress Note Normal [facility] Progress Note Normal [facility] BASIC METABOLIC PANELon 11- Anion gap [Moles/Vol] 4 mmol/L Normal 3-13 [facility] Comment on above: Performed By: #### L AB15, QOX199, OYO952 ####Windows Infrastructure Engineer: NED PAK ([id number])[address] Calcium [Mass/Vol] 9.0 mg/dL Normal 8.4-10.4 [facility] Comment on above: Performed By: #### L AB15, GJL159, MLZ662 ####Windows Infrastructure Engineer: NED PAK ([id number])[facility])[address] [place] [address] Chloride [Moles/Vol] 110 mmol/L High 98-107 [facility] Comment on above: Performed By: #### L AB15, LWL426, DCP885 ####Windows Infrastructure Engineer: NED PAK ([id number])[facility])[address] [place] [address] CO2 [Moles/Vol] 31 mmol/L High 22-30 [facility] Comment on above: Performed By: #### L AB15, LBP575, VQS997 ####Windows Infrastructure Engineer: NED PAK ([id number])[facility])[address] [place] [address] Creatinine [Mass/Vol] 0.82 mg/dL Normal 0.52-1.04 [facility] Comment on above: Performed By: #### L AB15, LGV707, YQI393 ####Windows Infrastructure Engineer: NED PAK ([id number])[facility])[address] [place] [address] [place] GLOMERULAR FILTRATION RATE ML/MIN/1.73 SQ M.PREDICTED 73.3 mL/min/1.73m*2 Normal >60.0 [facility] Comment on above: Result Comment: Calc ulation based on the Chronic Kidney Disease Epidemiology Collaboration (CKD-EPI) equation refit without adjustment for race Performed By: #### L AB15, XBF605, NJR282 ####Windows Infrastructure Engineer: NED PAK ([id number])[facility])[address] [place] [address] Glucose [Mass/Vol] 102 mg/dL High 70-100 [facility] Comment on above: Performed By: #### L AB15, FBR931, ZCZ394 ####Windows Infrastructure Engineer: NED PAK ([id number])[facility])[address] [place] [address] Potassium [Moles/Vol] 3.4 mmol/L Low 3.5-5.1 [facility] Comment on above: Performed By: #### L AB15, MIL078, KZD164 ####Windows Infrastructure Engineer: NED PAK ([id number])[facility])[address] [place] [address] [place] Sodium [Moles/Vol] 146 mmol/L High 135-145 [facility] Comment on above: Performed By: #### L AB15, LHP272, CWR932 ####Windows Infrastructure Engineer: NED PAK ([id number])[facility])[address] [place] [address] [place] Urea nitrogen [Mass/Vol] 22 mg/dL High 7-17 [facility] Comment on above: Performed By: #### L AB15, BMC374, JYP949 ####Windows Infrastructure Engineer: NED PAK ([id number])[facility])[address] [place] [address] CARECOORDon 02-05-2023 CARECOORD Normal [facility] CBC WITH AUTO DIFFERENTIALon 02-05-2023 Basophils (Bld) [#/Vol] 0.1 10*3/uL Normal 0.0-0.2 [facility] Comment on above: Performed By: #### L [id number] ####Windows Infrastructure Engineer: NED PAK ([id number])[facility])[address] [place] [address] Basophils/100 WBC (Bld) 0.5 % Normal 0.0-2.0 [facility] Comment on above: Performed By: #### L [id number] ####Windows Infrastructure Engineer: NED PAK ([id number])[facility])[address] [place] [address] Eosinophils (Bld) [#/Vol] 0.0 10*3/uL Normal 0.0-0.5 [facility] Comment on above: Performed By: #### L [id number] ####Windows Infrastructure Engineer: NED PAK ([id number])[facility])[address] [place] [address] Eosinophils/100 WBC (Bld) 0.2 % Low 1.0-6.0 [facility] Comment on above: Performed By: #### L [id number] ####Windows Infrastructure Engineer: NED PAK ([id number])[facility])[address] [place] [address] Erythrocyte distribution width (RBC) [Ratio] 15.9 % High 11.5-14.5 [facility] Comment on above: Performed By: #### L [id number] ####Windows Infrastructure Engineer: NED PAK ([id number])[facility])[address] [place] [address] ERYTHROCYTE MEAN CORPUSCULAR HEMOGLOBIN CONCENTRATION (G/DL) BY AUTOMATED 32.0 % Normal 32.0-36.0 [facility] Comment on above: Performed By: #### L [id number] ####Windows Infrastructure Engineer: NED PAK ([id number])[facility])[address] [place] [address] Hematocrit (Bld) [Volume fraction] 25.8 % Low 35.0-47.0 [facility] Comment on above: Performed By: #### L [id number] ####Windows Infrastructure Engineer: NED PAK ([id number])[facility])[address] [place] [address] Hemoglobin (Bld) [Mass/Vol] 8.3 g/dL Low 11.7-16.0 [facility] Comment on above: Performed By: #### L [id number] ####Windows Infrastructure Engineer: NED PAK ([id number])[facility])[address] [place] [address] Lymphocytes (Bld) [#/Vol] 1.8 10*3/uL Normal 1.0-4.3 [facility] Comment on above: Performed By: #### L [id number] ####Windows Infrastructure Engineer: NED PAK ([id number])[facility])[address] [place] [address] Lymphocytes/100 WBC (Bld) 10.9 % Low 20.0-40.0 [facility] Comment on above: Performed By: #### L [id number] ####Windows Infrastructure Engineer: NED PAK ([id number])[facility])[address] [place] [address] MCH (RBC) [Entitic mass] 28.0 pg Normal 26.0-34.0 [facility] Comment on above: Performed By: #### L [id number] ####Windows Infrastructure Engineer: NED PAK ([id number])[facility])[address] [place] [address] MCV (RBC) [Entitic vol] 87.4 fL Normal 80.0-98.0 [facility] Comment on above: Performed By: #### L [id number] ####Windows Infrastructure Engineer: NED PAK ([id number])[facility])[address] [place] [address] Monocytes (Bld) [#/Vol] 1.2 10*3/uL High 0.0-0.8 [facility] Comment on above: Performed By: #### L [id number] ####Windows Infrastructure Engineer: NED PAK ([id number])[facility] ([facility])[address] [place] [address] Monocytes/100 WBC (Bld) 7.3 % Normal 2.0-10.0 [facility] Comment on above: Performed By: #### L [id number] ####Windows Infrastructure Engineer: NED PAK ([id number])[facility])[address] [place] [address] Neutrophils (Bld) [#/Vol] 13.6 10*3/uL High 1.8-7.0 [facility] Comment on above: Performed By: #### L [id number] ####Windows Infrastructure Engineer: NED PAK ([id number])[facility])[address] [place] [address] Neutrophils/100 WBC (Bld) 81.1 % High 40.0-80.0 [facility] Comment on above: Performed By: #### L [id number] ####Windows Infrastructure Engineer: NED PAK ([id number])[facility])[address] [place] [address] NRBC (PER 100 WBCS) BY AUTOMATED COUNT 0.0 /100 WBCs Normal 0.0-2.0 [facility] Comment on above: Performed By: #### L [id number] ####Windows Infrastructure Engineer: NED PAK ([id number])[facility])[address] [place] [address] Platelet mean volume (Bld) [Entitic vol] 7.0 fL Low 7.4-12.4 [facility] Comment on above: Performed By: #### L [id number] ####Windows Infrastructure Engineer: NED PAK ([id number])[facility] ([facility])[address] [place] [address] Platelets (Bld) [#/Vol] 571 10*3/uL High 140-440 [facility] Comment on above: Performed By: #### L [id number] ####Windows Infrastructure Engineer: NED PAK ([id number])[facility] ([facility])[address] [place] [address] RBC (Bld) [#/Vol] 2.95 10*6/uL Low 3.8-5.20 [facility] Comment on above: Performed By: #### L [id number] ####Windows Infrastructure Engineer: NED PAK ([id number])[facility] ([facility])[address] [place] [address] WBC (Bld) [#/Vol] 17.0 10*3/uL High 3.6-10.7 [facility] Comment on above: Performed By: #### L [id number] ####Windows Infrastructure Engineer: END PAK ([id number])[facility] ([facility])[address] [place] [address] MAGNESIUMon 02-05-2023 Magnesium [Mass/Vol] 2.7 mg/dL High 1.6-2.3 [facility] Comment on above: Performed By: #### [place] AB15, GYK039, ADA619 ####Windows Infrastructure Engineer: NED PAK ([id number])[facility] ([facility])[address] [place] [address] PHOSPHORUSon 02-05-2023 Phosphate [Mass/Vol] 3.5 mg/dL Normal 2.5-4.5 [facility] Comment on above: Performed By: #### L AB15, RQP590, NNP428 ####Windows Infrastructure Engineer: NED PAK ([id number])[facility] ([facility])[address] [place] [address] Progress Noteon 02-05-2023 Progress Note Normal [facility] Progress Note Normal [facility] Progress Note Normal [facility] Progress Note Normal [facility] Progress Note Normal [facility] XR CHEST 1 VIEWon 02-05-2023 XR CHEST 1 VIEW [facility] BASIC METABOLIC PANELon 01-20 Anion gap [Moles/Vol] 1 mmol/L Low 3-13 [facility] Comment on above: Performed By: #### L AB103, LAB15, GWL563, EVJ633 ####Windows Infrastructure Engineer: NED PAK ([id number])[facility] ([facility])[address] [place] [address] Calcium [Mass/Vol] 8.0 mg/dL Low 8.4-10.4 [facility] Comment on above: Performed By: #### L AB103, LAB15, JJN821, PSP284 ####Windows Infrastructure Engineer: NED PAK ([id number])[facility] ([facility])[address] [place] [address] [place] Chloride [Moles/Vol] 106 mmol/L Normal 98-107 [facility] Comment on above: Performed By: #### L AB103, LAB15, TRM864, FLV299 ####Windows Infrastructure Engineer: NED PAK ([id number])[facility] ([facility])[address] [place] [address] CO2 [Moles/Vol] 32 mmol/L High 22-30 [facility] Comment on above: Performed By: #### L AB103, LAB15, VHV087, ZIZ113 ####Windows Infrastructure Engineer: NED PAK ([id number])[facility] ([facility])[address] [place] [address] Creatinine [Mass/Vol] 0.56 mg/dL Normal 0.52-1.04 [facility] Comment on above: Performed By: #### L AB103, LAB15, OIS342, NQA084 ####Windows Infrastructure Engineer: NED PAK ([id number])[facility] ([facility])[address] [place] [address] [place] GLOMERULAR FILTRATION RATE ML/MIN/1.73 SQ M.PREDICTED >90.0 Normal >60.0 [facility] Comment on above: Result Comment: Calc ulation based on the Chronic Kidney Disease Epidemiology Collaboration (CKD-EPI) equation refit without adjustment for race Performed By: #### L AB103, LAB15, KCQ075, PJF868 ####Windows Infrastructure Engineer: NED PAK ([id number])[facility])[address] [place] [address] Glucose [Mass/Vol] 123 mg/dL High 70-100 [facility] Comment on above: Performed By: #### L AB103, LAB15, GWS936, GPK584 ####Windows Infrastructure Engineer: NED PAK ([id number])[facility])[address] [place] [address] Potassium [Moles/Vol] 3.7 mmol/L Normal 3.5-5.1 [facility] Comment on above: Performed By: #### L AB103, LAB15, UOS473, XKV718 ####Windows Infrastructure Engineer: NED PAK ([id number])[facility] ([facility])[address] [place] [address] Sodium [Moles/Vol] 138 mmol/L Normal 135-145 [facility] Comment on above: Performed By: #### L AB103, LAB15, PFA828, MTJ160 ####Windows Infrastructure Engineer: NED PAK ([id number])[facility])[address] [place] [address] Urea nitrogen [Mass/Vol] 18 mg/dL High 7-17 [facility] Comment on above: Performed By: #### L AB103, LAB15, ABQ725, XFG747 ####Windows Infrastructure Engineer: NED PAK ([id number])[facility])[address] [place] [address] CARECOORDon 02-04-2023 [place]ORD Normal [facility] CBC WITH AUTO DIFFERENTIALon 02-04-2023 Basophils (Bld) [#/Vol] 0.0 10*3/uL Normal 0.0-0.2 [facility] Comment on above: Performed By: #### L [id number] ####Windows Infrastructure Engineer: NED PAK ([id number])[facility])[address] [place] [address] Basophils/100 WBC (Bld) 0.2 % Normal 0.0-2.0 [facility] Comment on above: Performed By: #### L [id number] ####Windows Infrastructure Engineer: NED PAK ([id number])[facility])[address] [place] [address] Eosinophils (Bld) [#/Vol] 0.0 10*3/uL Normal 0.0-0.5 [facility] Comment on above: Performed By: #### L [id number] ####Windows Infrastructure Engineer: NED PAK ([id number])[facility])[address] [place] [address] Eosinophils/100 WBC (Bld) 0.2 % Low 1.0-6.0 [facility] Comment on above: Performed By: #### L [id number] ####Windows Infrastructure Engineer: NED PAK ([id number])[facility])[address] [place] [address] Erythrocyte distribution width (RBC) [Ratio] 15.8 % High 11.5-14.5 [facility] Comment on above: Performed By: #### L [id number] ####Windows Infrastructure Engineer: NED PAK ([id number])[facility])[address] [place] [address] ERYTHROCYTE MEAN CORPUSCULAR HEMOGLOBIN CONCENTRATION (G/DL) BY AUTOMATED 31.9 % Low 32.0-36.0 [facility] Comment on above: Performed By: #### L [id number] ####Windows Infrastructure Engineer: NED PAK ([id number])[facility])[address] [place] [address] Hematocrit (Bld) [Volume fraction] 23.0 % Low 35.0-47.0 [facility] Comment on above: Performed By: #### L [id number] ####Windows Infrastructure Engineer: NED PAK ([id number])[facility])[address] [place] [address] Hemoglobin (Bld) [Mass/Vol] 7.3 g/dL Low 11.7-16.0 [facility] Comment on above: Performed By: #### L [id number] ####Windows Infrastructure Engineer: NED PAK ([id number])[facility])[address] [place] [address] Lymphocytes (Bld) [#/Vol] 1.3 10*3/uL Normal 1.0-4.3 [facility] Comment on above: Performed By: #### L [id number] ####Windows Infrastructure Engineer: NED PAK ([id number])[facility])[address] [place] [address] Lymphocytes/100 WBC (Bld) 7.5 % Low 20.0-40.0 [facility] Comment on above: Performed By: #### L [id number] ####Windows Infrastructure Engineer: NED PAK ([id number])[facility])[address] [place] [address] MCH (RBC) [Entitic mass] 28.0 pg Normal 26.0-34.0 [facility] Comment on above: Performed By: #### L [id number] ####Windows Infrastructure Engineer: NED PAK ([id number])[facility])[address] [place] [address] MCV (RBC) [Entitic vol] 87.8 fL Normal 80.0-98.0 [facility] Comment on above: Performed By: #### L [id number] ####Windows Infrastructure Engineer: NED PAK ([id number])[facility])[address] [place] [address] Monocytes (Bld) [#/Vol] 0.9 10*3/uL High 0.0-0.8 [facility] Comment on above: Performed By: #### L [id number] ####Windows Infrastructure Engineer: NED PAK ([id number])[facility])[address] [place] [address] Monocytes/100 WBC (Bld) 5.5 % Normal 2.0-10.0 [facility] Comment on above: Performed By: #### L [id number] ####Windows Infrastructure Engineer: NED PAK ([id number])[facility])[address] [place] [address] Neutrophils (Bld) [#/Vol] 14.4 10*3/uL High 1.8-7.0 [facility] Comment on above: Performed By: #### L [id number] ####Windows Infrastructure Engineer: NED PAK ([id number])[facility])[address] [place] [address] Neutrophils/100 WBC (Bld) 86.6 % High 40.0-80.0 [facility] Comment on above: Performed By: #### L [id number] ####Windows Infrastructure Engineer: NED PAK ([id number])[facility])[address] [place] [address] NRBC (PER 100 WBCS) BY AUTOMATED COUNT 0.0 /100 WBCs Normal 0.0-2.0 [facility] Comment on above: Performed By: #### L [id number] ####Windows Infrastructure Engineer: NED PAK ([id number])[facility])[address] [place] [address] Platelet mean volume (Bld) [Entitic vol] 7.3 fL Low 7.4-12.4 [facility] Comment on above: Performed By: #### L [id number] ####Windows Infrastructure Engineer: NED PAK ([id number])[facility])[address] [place] [address] Platelets (Bld) [#/Vol] 410 10*3/uL Normal 140-440 [facility] Comment on above: Performed By: #### L [id number] ####Windows Infrastructure Engineer: NED PAK ([id number])[facility])[address] [place] [address] [place] RBC (Bld) [#/Vol] 2.62 10*6/uL Low 3.8-5.20 [facility] Comment on above: Performed By: #### L [id number] ####Windows Infrastructure Engineer: NED PAK ([id number])[facility])[address] [place] [address] WBC (Bld) [#/Vol] 16.2 10*3/uL High 3.6-10.7 [facility] Comment on above: Performed By: #### L [id number] ####Windows Infrastructure Engineer: NED PAK ([id number])[address] MAGNESIUMon 02-04-2023 Magnesium [Mass/Vol] 2.5 mg/dL High 1.6-2.3 [facility] Comment on above: Performed By: #### L AB103, LAB15, FRP341, VLR027 ####Windows Infrastructure Engineer: NED PAK ([id number])[address] Nursing Noteon 02-04-2023 Nursing Note Normal [facility] Nursing Note Patient without any void since duarte removed. Bladder scan done indicating >550cc of volume in bladder. Dr. Jalloh on unit and notified face to face. Will straight cath per protocol and have nightshift reassess bladder scan. Will con't to monitor. Normal [facility] Nursing Note [address] ter inserted through duarte catheter per order set. Clamped off. Then duarte was pulled for bladder trial. Normal [facility] PHOSPHORUSon 02-04-2023 Phosphate [Mass/Vol] 3.2 mg/dL Normal 2.5-4.5 [facility] Comment on above: Performed By: #### L AB103, LAB15, KAS698, WGZ606 ####Windows Infrastructure Engineer: NED PAK ([id number])[address] PROCALCITONIN TESTon 023 PROCALCITONIN 0.14 ng/mL High 0.00-0.09 [facility] Comment on above: Result Comment: SANDRA R COMMENTS:PCT <0.50 = Low risk of severe sepsis and/or septic shock.PCT >2.00 = High risk of severe sepsis and/or septic shock. Performed By: #### L [id number] ####Windows Infrastructure Engineer: NED PAK ([id number])[facility])[address] [place] [address] Progress Noteon 02-04-2023 Progress Note Normal [facility] Normal [facility] Progress Note Normal [facility] Progress [facility] Normal [facility] Progress Note Normal [facility] TOTAL PROTEINon 02-04-2023 Protein [Mass/Vol] 5.4 g/dL Low 6.3-8.2 [facility] Comment on above: Performed By: #### L AB103, LAB15, SBH914, EAC300 ####Windows Infrastructure Engineer: NED PAK ([id number])[facility])[address] [place] [address] BASIC METABOLIC PANELon 01-20 Anion gap [Moles/Vol] 6 mmol/L Normal 3-13 [facility] Comment on above: Performed By: #### L AB103, RDY177, LAB15 ####Windows Infrastructure Engineer: NED PAK ([id number])[facility])[address] [place] [address] Calcium [Mass/Vol] 8.4 mg/dL Normal 8.4-10.4 [facility] Comment on above: Performed By: #### L AB103, ZXI529, LAB15 ####Windows Infrastructure Engineer: NED PAK ([id number])[facility])[address] [place] [address] Chloride [Moles/Vol] 106 mmol/L Normal 98-107 [facility] Comment on above: Performed By: #### L AB103, WRO039, LAB15 ####Windows Infrastructure Engineer: NED PAK ([id number])[facility])[address] [place] [address] CO2 [Moles/Vol] 28 mmol/L Normal 22-30 [facility] Comment on above: Performed By: #### L AB103, IFO018, LAB15 ####Windows Infrastructure Engineer: NED PAK ([id number])[facility] ([facility])[address] [place] [address] Creatinine [Mass/Vol] 0.55 mg/dL Normal 0.52-1.04 [facility] Comment on above: Performed By: #### L AB103, GAK752, LAB15 ####Windows Infrastructure Engineer: NED PAK ([id number])[facility])[address] [place] [address] GLOMERULAR FILTRATION RATE ML/MIN/1.73 SQ M.PREDICTED >90.0 Normal >60.0 [facility] Comment on above: Result Comment: Calc ulation based on the Chronic Kidney Disease Epidemiology Collaboration (CKD-EPI) equation refit without adjustment for race Performed By: #### L AB103, [id number], LAB15 ####Windows Infrastructure Engineer: NED PAK ([id number])[facility])[address] [place] [address] Glucose [Mass/Vol] 131 mg/dL High 70-100 [facility] Comment on above: Performed By: #### L AB103, KEA247, LAB15 ####Windows Infrastructure Engineer: NED PAK ([id number])[facility])[address] [place] [address] [place] Potassium [Moles/Vol] 4.0 mmol/L Normal 3.5-5.1 [facility] Comment on above: Performed By: #### L AB103, EJH206, LAB15 ####Windows Infrastructure Engineer: NED PAK ([id number])[facility])[address] [place] [address] Sodium [Moles/Vol] 140 mmol/L Normal 135-145 [facility] Comment on above: Performed By: #### L AB103, OWD873, LAB15 ####Windows Infrastructure Engineer: NED PAK ([id number])[facility])[address] [place] [address] Urea nitrogen [Mass/Vol] 19 mg/dL High 7-17 [facility] Comment on above: Performed By: #### L AB103, KOE078, LAB15 ####Windows Infrastructure Engineer: NED PAK ([id number])[facility])[address] [place] [address] BLOOD CULTUREon 02-03-2023 Bacteria identified Cx Nom (Bld) Normal [facility] Comment on above: Performed By: #### L AB462 ####Windows Infrastructure Engineer: NED PAK ([id number])[facility])[address] [place] [address] Bacteria identified Cx Nom (Bld) Normal [facility] Comment on above: Performed By: #### L AB462 ####Windows Infrastructure Engineer: NED PAK ([id number])[facility])[address] [place] [address] CBC WITH AUTO DIFFERENTIALon 02-03-2023 Erythrocyte distribution width (RBC) [Ratio] 16.0 % High 11.5-14.5 [facility] Comment on above: Performed By: #### L [id number], [id number] ####Windows Infrastructure Engineer: NED PAK ([id number])[facility])[address] [place] [address] ERYTHROCYTE MEAN CORPUSCULAR HEMOGLOBIN CONCENTRATION (G/DL) BY AUTOMATED 32.3 % Normal 32.0-36.0 [facility] Comment on above: Performed By: #### L CL9794, XKS3535 ####Windows Infrastructure Engineer: NED PAK ([id number])[facility])[address] [place] [address] Hematocrit (Bld) [Volume fraction] 26.6 % Low 35.0-47.0 [facility] Comment on above: Performed By: #### L GP6182, [id number] ####Windows Infrastructure Engineer: NED PAK ([id number])[facility])[address] [place] [address] Hemoglobin (Bld) [Mass/Vol] 8.6 g/dL Low 11.7-16.0 [facility] Comment on above: Performed By: #### L YP0884, [id number] ####Windows Infrastructure Engineer: NED PAK ([id number])[facility])[address] [place] [address] MCH (RBC) [Entitic mass] 28.1 pg Normal 26.0-34.0 [facility] Comment on above: Performed By: #### L QB8339, [id number] ####Windows Infrastructure Engineer: NED PAK ([id number])[facility])[address] [place] [address] MCV (RBC) [Entitic vol] 87.1 fL Normal 80.0-98.0 [facility] Comment on above: Performed By: #### L QH3752, KVW8948 ####Windows Infrastructure Engineer: NED PAK ([id number])[facility])[address] [place] [address] NRBC (PER 100 WBCS) BY AUTOMATED COUNT 0.1 /100 WBCs Normal 0.0-2.0 [facility] Comment on above: Performed By: #### L [id number], [id number] ####Windows Infrastructure Engineer: NED PAK ([id number])[facility])[address] [place] [address] Platelet mean volume (Bld) [Entitic vol] 7.8 fL Normal 7.4-12.4 [facility] Comment on above: Performed By: #### L LL1814, IYF4654 ####Windows Infrastructure Engineer: NED PAK ([id number])[facility])[address] [place] [address] Platelets (Bld) [#/Vol] 446 10*3/uL High 140-440 [facility] Comment on above: Performed By: #### L [id number], [id number] ####Windows Infrastructure Engineer: NED PAK ([id number])[facility])[address] [place] [address] RBC (Bld) [#/Vol] 3.06 10*6/uL Low 3.8-5.20 [facility] Comment on above: Performed By: #### L [id number], [id number] ####Windows Infrastructure Engineer: NED PAK ([id number])[facility])[address] [place] [address] WBC (Bld) [#/Vol] 22.5 10*3/uL High 3.6-10.7 [facility] Comment on above: Performed By: #### L TR0862, [id number] ####Windows Infrastructure Engineer: NED PAK ([id number])[facility])[address] [place] [address] CULTURE ANAEROBICon 02-04-20 23 CULTURE ANAEROBIC Normal [facility] Comment on above: Performed By: #### L AB233 ####Windows Infrastructure Engineer: NED PAK ([id number])[facility])[address] [place] [address] [address]ULT[address], AEROBIC BACTERIA [facility] GRAM STAINon 02-03-2023 CULTURE, AEROBIC BACTERIA WITH GRAM STAIN Normal [facility] Comment on above: Performed By: #### L AB897 ####Windows Infrastructure Engineer: NED PAK ([id number])[facility])[address] [place] [address] FUNGAL CULTUREon 02-03-2023 FUNGAL CULTURE Normal [facility] Comment on above: Performed By: #### L [id number] ####Windows Infrastructure Engineer: NED PAK ([id number])[facility])[address] [place] [address] LACTATE DEHYDROGENASE, BODY FLUIDon 02-03-2023 LACTATE DEHYDROGENASE, BODY FLUID BY LAC->PYR 316 U/L Normal No Range [facility] Comment on above: Performed By: #### L AB188, URH336 ####Windows Infrastructure Engineer: NED PAK ([id number])[facility])[address] [place] [address] MAGNESIUMon 02-03-2023 Magnesium [Mass/Vol] 2.6 mg/dL High 1.6-2.3 [facility] Comment on above: Performed By: #### L AB103, HKJ279, LAB15 ####Windows Infrastructure Engineer: NED PAK ([id number])[facility] ([facility])[address] [place] [address] MANUAL DIFFERENTIALon 2022 CELLS COUNTED TOTAL (#) IN BLOOD 100 Normal [facility] Comment on above: Performed By: #### L [id number], [id number] ####Windows Infrastructure Engineer: NED PAK ([id number])[facility])[address] [place] [address] DIFFERENTIAL METHOD Automated differenti al reported after manual slide review Normal [facility] Comment on above: Performed By: #### L [id number], QRT3296 ####Windows Infrastructure Engineer: NED PAK ([id number])[facility])[address] [place] [address] LEUKOCYTES (10*3/UL) NUCLEATED ERYTHROCYTE ADJUST 22.5 10*3/uL High 3.6-10.7 [facility] Comment on above: Performed By: #### L PH1692, [id number] ####Windows Infrastructure Engineer: NED PAK ([id number])[facility])[address] [place] [address] LYMPHOCYTES (10*3/UL) IN BLOOD BY MANUAL COUNT 1.8 10*3/uL Normal 1.0-4.3 [facility] Comment on above: Performed By: #### L [id number], [id number] ####Windows Infrastructure Engineer: NED PAK ([id number])[facility])[address] [place] [address] LYMPHOCYTES TOTAL PER COUNTED LEUKOCYTES BY MANUAL COUNT 8 Normal [facility] Comment on above: Performed By: #### L XR8391, [id number] ####Windows Infrastructure Engineer: NED PAK ([id number])[facility] ([facility])[address] [place] [address] [place] LYMPHOCYTES/100 LEUKOCYTES IN BLOOD BY MANUAL COUNT 8 % Low 20-40 [facility] Comment on above: Performed By: #### L [id number], [id number] ####Windows Infrastructure Engineer: NED PAK ([id number])[facility] ([facility])[address] [place] [address] [place] MONOCYTES (10*3/UL) IN BLOOD BY MANUAL COUNT 0.9 10*3/uL High 0.0-0.8 [facility] Comment on above: Performed By: #### L [id number], [id number] ####Windows Infrastructure Engineer: NED PAK ([id number])[facility] ([facility])[address] [place] [address] MONOCYTES TOTAL PER COUNTED LEUKOCYTES BY MANUAL COUNT 4 Normal [facility] Comment on above: Performed By: #### L YO2805, TZM7586 ####Windows Infrastructure Engineer: NED PAK ([id number])[facility] ([facility])[address] [place] [address] [place] MONOCYTES/100 LEUKOCYTES IN BLOOD BY MANUAL COUNT 4 % Normal 2-10 [facility] Comment on above: Performed By: #### L UT6239, LAL5231 ####Windows Infrastructure Engineer: NED PAK ([id number])[facility] ([facility])[address] [place] [address] [place] NEUTROPHILS (SEGS+BANDS) (10*3/UL) BY MANUAL COUNT 19.8 10*3/uL High 1.8-7.0 [facility] Comment on above: Performed By: #### L [id number], [id number] ####Windows Infrastructure Engineer: NED PAK ([id number])[facility] ([facility])[address] [place] [address] [place] NEUTROPHILS TOTAL PER COUNTED LEUKOCYTES BY MANUAL COUNT 88 Normal [facility] Comment on above: Performed By: #### L [id number], [id number] ####Windows Infrastructure Engineer: NED PAK ([id number])[facility])[address] [place] [address] SEGEMENTED NEUTROPHILS/100 LEUKOCYTES BY MANUAL COUNT 88 % High 40-80 [facility] Comment on above: Performed By: #### L EC5142, [id number] ####Windows Infrastructure Engineer: NED PAK ([id number])[facility])[address] [place] [address] PHOSPHORUSon 02-03-2023 Phosphate [Mass/Vol] 3.5 mg/dL Normal 2.5-4.5 [facility] Comment on above: Performed By: #### L AB103, GEB964, LAB15 ####Windows Infrastructure Engineer: NED PAK ([id number])[facility])[address] [place] [address] PROTEIN BODY FLUIDon 023 PROTEIN, BODY FLUID 2.9 g/dL Normal No Range [facility] Comment on above: Performed By: #### L AB188, VYH548 ####Windows Infrastructure Engineer: NED PAK ([id number])[facility])[address] [place] [address] TYPE OF BODY FLUID Pleural Fluid Normal [facility] Comment on above: Result Comment: SANDRA Baker COMMENTS:This test was developed and its performance characteristics determined by [facility]. It has not been cleared or approved by the [place] Food and Drug Administration. This test was performed in a CLIA certified laboratory and is intended for clinical purposes. Performed By: #### L AB188, SPG734 ####Windows Infrastructure Engineer: NED PAK ([id number])[facility])[address] [place] [address] Result Comment: SANDRA Baker COMMENTS:This test was developed and its performance characteristics determined by [facility]. It has not been cleared or approved by the [place] Food and Drug Administration. This test was performed in a CLIA certified laboratory and is intended for clinical purposes.Lactate dehydrogenase in pericardial fluids is not diagnostically useful. Contamination with RBCs will cause falsely elevated results. Progress Noteon 02-03-2023 Progress Note Normal [facility] Progress Note Normal [facility] Progress Note Normal [facility] Progress Note Normal [facility] Progress Note Normal [facility] US GUIDED THORACENTESISon US GUIDED THORACENTESIS Normal [facility] XR CHEST 1 VIEWon 02-03-2023 XR CHEST 1 VIEW Normal [facility] BASIC METABOLIC PANELon 01-20 Anion gap [Moles/Vol] 3 mmol/L Normal 3-13 [facility] Comment on above: Performed By: #### L AB15, QVW881, HJA521 ####Windows Infrastructure Engineer: NED PAK ([id number])[facility] ([facility])[address] [place] [address] Calcium [Mass/Vol] 8.2 mg/dL Low 8.4-10.4 [facility] Comment on above: Performed By: #### Tameka GODDARD, CLV872, OHK607 ####Windows Infrastructure Engineer: NED PAK ([id number])[facility] ([facility])[address] [place] [address] Chloride [Moles/Vol] 108 mmol/L High 98-107 [facility] Comment on above: Performed By: #### Tameka GODDARD, KOP097, GFY684 ####Windows Infrastructure Engineer: NED PAK ([id number])[facility] ([facility])[address] [place] [address] [place] CO2 [Moles/Vol] 29 mmol/L Normal 22-30 [facility] Comment on above: Performed By: #### Tameka ABNanci, GPX728, ONG793 ####Windows Infrastructure Engineer: NED PAK ([id number])[facility] ([facility])[address] [place] [address] [place] Creatinine [Mass/Vol] 0.47 mg/dL Low 0.52-1.04 [facility] Comment on above: Performed By: #### L AB15, RZQ994, MRA510 ####Windows Infrastructure Engineer: NED PAK ([id number])[facility] ([facility])[address] [place] [address] [place] GLOMERULAR FILTRATION RATE ML/MIN/1.73 SQ M.PREDICTED >90.0 Normal >60.0 [facility] Comment on above: Result Comment: Calc ulation based on the Chronic Kidney Disease Epidemiology Collaboration (CKD-EPI) equation refit without adjustment for race Performed By: #### L AB15, TXB912, XSJ803 ####Windows Infrastructure Engineer: NED PAK ([id number])[facility])[address] [place] [address] Glucose [Mass/Vol] 126 mg/dL High 70-100 [facility] Comment on above: Performed By: #### L AB15, KKO481, LOQ164 ####Windows Infrastructure Engineer: NED PAK ([id number])[facility])[address] [place] [address] Potassium [Moles/Vol] 3.7 mmol/L Normal 3.5-5.1 [facility] Comment on above: Performed By: #### Tameka HEREDIA15, OTO656, DYO317 ####Windows Infrastructure Engineer: NED PAK ([id number])[facility] ([facility])[address] [place] [address] Sodium [Moles/Vol] 140 mmol/L Normal 135-145 [facility] Comment on above: Performed By: #### L AB15, UUC753, OCU580 ####Windows Infrastructure Engineer: NED PAK ([id number])[facility])[address] [place] [address] Urea nitrogen [Mass/Vol] 19 mg/dL High 7-17 [facility] Comment on above: Performed By: #### L AB15, MSC996, QRX300 ####[employer] Infrastructure Engineer: NED PAK ([id number])[facility])[address] [place] [address] [place] CARECOORDon 02-02-2023 CARECOORD Normal [facility] CT CHEST WO IV CONTRASTon CT CHEST WO IV CONTRAST Normal [facility] MAGNESIUMon 02-02-2023 Magnesium [Mass/Vol] 2.6 mg/dL High 1.6-2.3 [facility] Comment on above: Performed By: #### L AB15, ETO864, ZYC880 ####[employer] Infrastructure Engineer: NED PAK ([id number])[facility] ([facility])[address] [place] [address] PHOSPHORUSon 02-02-2023 Phosphate [Mass/Vol] 3.2 mg/dL Normal 2.5-4.5 [facility] Comment on above: Performed By: #### L AB15, JEL566, OMF026 ####[employer] Infrastructure Engineer: NED PAK ([id number])[facility] ([facility])[address] [place] [address] PROCALCITONIN TESTon 023 PROCALCITONIN 0.19 ng/mL High 0.00-0.09 [facility] Comment on above: Result Comment: ORDE R COMMENTS:PCT <0.50 = Low risk of severe sepsis and/or septic shock.PCT >2.00 = High risk of severe sepsis and/or septic shock. Performed By: #### L [id number] ####[employer] Engineer: NED PAK ([id number])[facility] ([facility])[address] [place] [address] Progress Noteon 02-02-2023 Progress Note Normal [facility] Progress Note Normal [facility] Progress Note Normal [facility] Progress Note Normal [facility] Progress Note Normal [facility] Progress Note Normal [facility] BASIC METABOLIC PANELon 01-20 Anion gap [Moles/Vol] 3 mmol/L Normal 3-13 [facility] Comment on above: Performed By: #### L AB103, LAB15, ZWE130, LAB40 ####[employer] Engineer: NDE PAK ([id number])[facility])[address] [place] [address] Calcium [Mass/Vol] 8.1 mg/dL Low 8.4-10.4 [facility] Comment on above: Performed By: #### L AB103, LAB15, VOC921, LAB40 ####[employer] Infrastructure Engineer: NED PAK ([id number])[facility] [place] [address] [place] Chloride [Moles/Vol] 108 mmol/L High 98-107 [facility] Comment on above: Performed By: #### L AB103, LAB15, XZP127, LAB40 ####[employer] Infrastructure Engineer: NED PAK ([id number])[facility] ([facility])[address] [place] [address] CO2 [Moles/Vol] 30 mmol/L Normal 22-30 [facility] Comment on above: Performed By: #### L AB103, LAB15, XUK661, LAB40 ####[employer] Infrastructure Engineer: NED PAK ([id number])[facility] ([facility])[address] [place] [address] Creatinine [Mass/Vol] 0.51 mg/dL Low 0.52-1.04 [facility] Comment on above: Performed By: #### L AB103, LAB15, GBS828, LAB40 ####[employer] Infrastructure Engineer: NED PAK ([id number])[facility] ([facility])[address] [place] [address] GLOMERULAR FILTRATION RATE ML/MIN/1.73 SQ M.PREDICTED >90.0 Normal >60.0 [facility] Comment on above: Result Comment: Calc ulation based on the Chronic Kidney Disease Epidemiology Collaboration (CKD-EPI) equation refit without adjustment for race Performed By: #### L AB103, LAB15, TOS715, LAB40 ####[employer] Engineer: NED PAK ([id number])[facility] ([facility])[address] [place] [address] [place] Glucose [Mass/Vol] 131 mg/dL High 70-100 [facility] Comment on above: Performed By: #### L AB103, LAB15, IFV660, LAB40 ####[employer] Engineer: NED PAK ([id number])[facility])[address] [place] [address] [place] Potassium [Moles/Vol] 3.4 mmol/L Low 3.5-5.1 [facility] Comment on above: Performed By: #### L AB103, LAB15, [id number], LAB40 ####Windows Infrastructure Engineer: NED PAK ([id number])[facility])[address] [place] [address] Sodium [Moles/Vol] 140 mmol/L Normal 135-145 [facility] Comment on above: Performed By: #### L AB103, LAB15, [id number], LAB40 ####Windows Infrastructure Engineer: NED PAK ([id number])[facility])[address] [place] [address] Urea nitrogen [Mass/Vol] 18 mg/dL High 7-17 [facility] Comment on above: Performed By: #### L AB103, LAB15, DZY481, LAB40 ####Windows Infrastructure Engineer: NED PAK ([id number])[facility])[address] [place] [address] CARECOORDon 02-01-2023 CARECOORD Normal [facility] CBC (HEMOGRAM)on 02-01-2023 Erythrocyte distribution width (RBC) [Ratio] 16.0 % High 11.5-14.5 [facility] Comment on above: Performed By: #### L AB294 ####Windows Infrastructure Engineer: NED PAK ([id number])[facility])[address] [place] [address] ERYTHROCYTE MEAN CORPUSCULAR HEMOGLOBIN CONCENTRATION (G/DL) BY AUTOMATED 32.4 % Normal 32.0-36.0 [facility] Comment on above: Performed By: #### L AB294 ####Windows Infrastructure Engineer: NED PAK ([id number])[facility])[address] [place] [address] Hematocrit (Bld) [Volume fraction] 27.9 % Low 35.0-47.0 [facility] Comment on above: Performed By: #### L AB294 ####Windows Infrastructure Engineer: NED PAK ([id number])[facility])[address] [place] [address] Hemoglobin (Bld) [Mass/Vol] 9.0 g/dL Low 11.7-16.0 [facility] Comment on above: Performed By: #### L AB294 ####Windows Infrastructure Engineer: NED PAK ([id number])[facility])[address] [place] [address] MCH (RBC) [Entitic mass] 28.2 pg Normal 26.0-34.0 [facility] Comment on above: Performed By: #### L AB294 ####Windows Infrastructure Engineer: NED PAK ([id number])[facility] ([facility])[address] [place] [address] MCV (RBC) [Entitic vol] 86.9 fL Normal 80.0-98.0 [facility] Comment on above: Performed By: #### L AB294 ####Windows Infrastructure Engineer: NED PAK ([id number])[facility])[address] [place] [address] Platelet mean volume (Bld) [Entitic vol] 8.0 fL Normal 7.4-12.4 [facility] Comment on above: Performed By: #### L AB294 ####Windows Infrastructure Engineer: NED PAK ([id number])[facility])[address] [place] [address] Platelets (Bld) [#/Vol] 377 10*3/uL Normal 140-440 [facility] Comment on above: Performed By: #### L AB294 ####Windows Infrastructure Engineer: NED PAK ([id number])[facility] ([facility])[address] [place] [address] RBC (Bld) [#/Vol] 3.21 10*6/uL Low 3.8-5.20 [facility] Comment on above: Performed By: #### L AB294 ####Windows Infrastructure Engineer: NED PAK ([id number])[facility])[address] [place] [address] WBC (Bld) [#/Vol] 26.8 10*3/uL High 3.6-10.7 [facility] Comment on above: Performed By: #### L AB294 ####Windows Infrastructure Engineer: NED PAK ([id number])[facility])[address] [place] [address] MAGNESIUMon 02-01-2023 Magnesium [Mass/Vol] 2.4 mg/dL High 1.6-2.3 [facility] Comment on above: Performed By: #### L AB103, LAB15, BGS392, LAB40 ####Windows Infrastructure Engineer: NED PAK ([id number])[facility] ([facility])[address] [place] [address] PHOSPHORUSon 02-01-2023 Phosphate [Mass/Vol] 3.1 mg/dL Normal 2.5-4.5 [facility] Comment on above: Performed By: #### L AB103, LAB15, [id number], LAB40 ####Windows Infrastructure Engineer: NED PAK ([id number])[facility])[address] [place] [address] Progress Noteon 02-01-2023 Progress Note Normal [facility] Normal [facility] Progress Note Normal [facility] Progress Note Normal [facility] Progress Note Normal [facility] VANCOMYCIN, RANDOMon 023 VANCOMYCIN 18.0 ug/mL Normal 15.0-20.0 [facility] Comment on above: Order Comment: Pleas e draw random vancomycin level at least >2 hours after the end of the last vancomycin infusion. Thank you! Performed By: #### L AB103, LAB15, HKO510, LAB40 ####Windows Infrastructure Engineer: NED PAK ([id number])[facility])[address] [place] [address] XR CHEST 1 VIEWon 02-01-2023 XR CHEST 1 VIEW Normal [facility] BASIC METABOLIC PANELon 01-20 Anion gap [Moles/Vol] 5 mmol/L Normal -13 [facility] Comment on above: Performed By: #### L AB15, FEM823, HLU820 ####Windows Infrastructure Engineer: NED PAK ([id number])[facility] ([facility])[address] [place] [address] Calcium [Mass/Vol] 8.1 mg/dL Low 8.4-10.4 [facility] Comment on above: Performed By: #### L AB15, UTG391, RDI068 ####Windows Infrastructure Engineer: NED PAK ([id number])[facility] ([facility])[address] [place] [address] Chloride [Moles/Vol] 109 mmol/L High 98-107 [facility] Comment on above: Performed By: #### L AB15, TNF412, WRW971 ####Windows Infrastructure Engineer: NED PAK ([id number])[facility] ([facility])[address] [place] [address] CO2 [Moles/Vol] 28 mmol/L Normal 22-30 [facility] Comment on above: Performed By: #### L AB15, QFX095, QTL266 ####Windows Infrastructure Engineer: NED PAK ([id number])[facility] ([facility])[address] [place] [address] Creatinine [Mass/Vol] 0.47 mg/dL Low 0.52-1.04 [facility] Comment on above: Performed By: #### L AB15, FEK594, KWY652 ####Windows Infrastructure Engineer: NED PAK ([id number])[facility] ([facility])[address] [place] [address] GLOMERULAR FILTRATION RATE ML/MIN/1.73 SQ M.PREDICTED >90.0 Normal >60.0 [facility] Comment on above: Result Comment: Calc ulation based on the Chronic Kidney Disease Epidemiology Collaboration (CKD-EPI) equation refit without adjustment for race Performed By: #### L AB15, DMZ788, ZHO842 ####Windows Infrastructure Engineer: NED PAK ([id number])[facility] ([facility])[address] [place] [address] [place] Glucose [Mass/Vol] 129 mg/dL High 70-100 [facility] Comment on above: Performed By: #### L AB15, QRA822, VIX897 ####Windows Infrastructure Engineer: NED PAK ([id number])[facility])[address] [place] [address] Potassium [Moles/Vol] 3.0 mmol/L Low 3.5-5.1 [facility] Comment on above: Performed By: #### L AB15, HDT710, BPE274 ####Windows Infrastructure Engineer: NED PAK ([id number])[facility])[address] [place] [address] Sodium [Moles/Vol] 142 mmol/L Normal 135-145 [facility] Comment on above: Performed By: #### L AB15, NED915, DCN963 ####Windows Infrastructure Engineer: NED PAK ([id number])[facility])[address] [place] [address] Urea nitrogen [Mass/Vol] 19 mg/dL High 7-17 [facility] Comment on above: Performed By: #### L AB15, OKC074, UGS458 ####Windows Infrastructure Engineer: NED PAK ([id number])[facility])[address] [place] [address] BLOOD CULTUREon 01-31-2023 Bacteria identified Cx Nom (Bld) Normal [facility] Comment on above: Performed By: #### L AB462 ####Windows Infrastructure Engineer: NED PAK ([id number])[facility])[address] [place] [address] Performed By: #### L AB462, [id number] ####Windows Infrastructure Engineer: NED PAK ([id number])[facility])[address] [place] [address] BLOOD CULTURE IDENTIFICATION - AEROBICon 01-31-2023 BLOOD CULTURE IDENTIFICATION - AEROBIC Normal [facility] Comment on above: Performed By: #### L AB462, [id number] ####Windows Infrastructure Engineer: NED PAK ([id number])[facility])[address] [place] [address] CBC (HEMOGRAM)on 01-31-2023 Erythrocyte distribution width (RBC) [Ratio] 16.0 % High 11.5-14.5 [facility] Comment on above: Performed By: #### L AB294 ####Windows Infrastructure Engineer: NED PAK ([id number])[facility])[address] [place] [address] ERYTHROCYTE MEAN CORPUSCULAR HEMOGLOBIN CONCENTRATION (G/DL) BY AUTOMATED 32.4 % Normal 32.0-36.0 [facility] Comment on above: Performed By: #### L AB294 ####Windows Infrastructure Engineer: NED PAK ([id number])[facility])[address] [place] [address] Hematocrit (Bld) [Volume fraction] 29.1 % Low 35.0-47.0 [facility] Comment on above: Performed By: #### L AB294 ####Windows Infrastructure Engineer: NED PAK ([id number])[facility])[address] [place] [address] Hemoglobin (Bld) [Mass/Vol] 9.4 g/dL Low 11.7-16.0 [facility] Comment on above: Performed By: #### L AB294 ####Windows Infrastructure Engineer: NED PAK ([id number])[facility])[address] [place] [address] MCH (RBC) [Entitic mass] 27.9 pg Normal 26.0-34.0 [facility] Comment on above: Performed By: #### L AB294 ####Windows Infrastructure Engineer: NED PAK ([id number])[facility])[address] [place] [address] MCV (RBC) [Entitic vol] 86.2 fL Normal 80.0-98.0 [facility] Comment on above: Performed By: #### L AB294 ####Windows Infrastructure Engineer: NED PAK ([id number])[facility])[address] [place] [address] Platelet mean volume (Bld) [Entitic vol] 8.6 fL Normal 7.4-12.4 [facility] Comment on above: Performed By: #### L AB294 ####Windows Infrastructure Engineer: NED PAK ([id number])[facility] ([facility])[address] [place] [address] Platelets (Bld) [#/Vol] 352 10*3/uL Normal 140-440 [facility] Comment on above: Performed By: #### L AB294 ####Windows Infrastructure Engineer: NED PAK ([id number])[facility] ([facility])[address] [place] [address] RBC (Bld) [#/Vol] 3.38 10*6/uL Low 3.8-5.20 [facility] Comment on above: Performed By: #### L AB294 ####Windows Infrastructure Engineer: NED PAK ([id number])[facility] ([facility])[address] [place] [address] WBC (Bld) [#/Vol] 23.8 10*3/uL High 3.6-10.7 [facility] Comment on above: Performed By: #### L AB294 ####Windows Infrastructure Engineer: NED PAK ([id number])[facility])[address] [place] [address] MAGNESIUMon 01-31-2023 Magnesium [Mass/Vol] 2.1 mg/dL Normal 1.6-2.3 [facility] Comment on above: Performed By: #### L AB15, ZPK180, OIP917 ####Windows Infrastructure Engineer: NED PAK ([id number])[facility])[address] [place] [address] PHOSPHORUSon 01-31-2023 Phosphate [Mass/Vol] 2.7 mg/dL Normal 2.5-4.5 [facility] Comment on above: Performed By: #### L AB15, VIK693, ZGI744 ####Windows Infrastructure Engineer: NED PAK ([id number])[facility])[address] [place] [address] PROCALCITONIN TESTon 023 PROCALCITONIN 0.29 ng/mL High 0.00-0.09 [facility] Comment on above: Result Comment: SANDRA Baker COMMENTS:PCT <0.50 = Low risk of severe sepsis and/or septic shock.PCT >2.00 = High risk of severe sepsis and/or septic shock. Performed By: #### L [id number] ####Windows Infrastructure Engineer: NED PAK ([id number])[facility])[address] [place] [address] Progress Noteon 01-31-2023 Progress Note Normal [facility] Progress Note Normal [facility] VANCOMYCIN, RANDOMon 023 VANCOMYCIN 29.0 ug/mL High 15.0-20.0 [facility] Comment on above: Order Comment: Pleas e draw random vancomycin level at least >2 hours after the end of the last vancomycin infusion. Thank you! Performed By: #### L AB40 ####Windows Infrastructure Engineer: NED PAK ([id number])[facility] ([facility])[address] [place] [address] AMMONIAon 01-30-2023 Ammonia (P) [Mass/Vol] ug/dL Low 9-30 [facility] Comment on above: Performed By: #### L AB47 ####Windows Infrastructure Engineer: NED PAK ([id number])[facility])[address] [place] [address] BASIC METABOLIC PANELon 11- Anion gap [Moles/Vol] 6 mmol/L Normal 3-13 [facility] Comment on above: Performed By: #### L AB103, YMM291, LAB20, LAB15 ####Windows Infrastructure Engineer: NED PAK ([id number])[facility])[address] [place] [address] Calcium [Mass/Vol] 8.5 mg/dL Normal 8.4-10.4 [facility] Comment on above: Performed By: #### L AB103, DJZ403, LAB20, LAB15 ####Windows Infrastructure Engineer: NED PAK ([id number])[facility] [place] [address] [place] Chloride [Moles/Vol] 110 mmol/L High 98-107 [facility] Comment on above: Performed By: #### L AB103, HRI353, LAB20, LAB15 ####Windows Infrastructure Engineer: NED PAK ([id number])[facility] ([facility])[address] [place] [address] CO2 [Moles/Vol] 27 mmol/L Normal 22-30 [facility] Comment on above: Performed By: #### L AB103, ZMW506, LAB20, LAB15 ####Windows Infrastructure Engineer: NED PAK ([id number])[facility] ([facility])[address] [place] [address] Creatinine [Mass/Vol] 0.41 mg/dL Low 0.52-1.04 [facility] Comment on above: Performed By: #### Tameka AB103, OUM118, LAB20, LAB15 ####Windows Infrastructure Engineer: NED PAK ([id number])[facility] ([facility])[address] [place] [address] GLOMERULAR FILTRATION RATE ML/MIN/1.73 SQ M.PREDICTED >90.0 Normal >60.0 [facility] Comment on above: Result Comment: Calc ulation based on the Chronic Kidney Disease Epidemiology Collaboration (CKD-EPI) equation refit without adjustment for race Performed By: #### L AB103, UZY575, LAB20, LAB15 ####Windows Infrastructure Engineer: NED PAK ([id number])[facility] [place] [address] [place] Glucose [Mass/Vol] 132 mg/dL High 70-100 [facility] Comment on above: Performed By: #### L AB103, ZVS632, LAB20, LAB15 ####Windows Infrastructure Engineer: NED PAK ([id number])[facility])[address] [place] [address] Potassium [Moles/Vol] 3.3 mmol/L Low 3.5-5.1 [facility] Comment on above: Performed By: #### L AB103, YAJ355, LAB20, LAB15 ####Windows Infrastructure Engineer: NED PAK ([id number])[facility])[address] [place] [address] Sodium [Moles/Vol] 143 mmol/L Normal 135-145 [facility] Comment on above: Performed By: #### L AB103, PRD869, LAB20, LAB15 ####Windows Infrastructure Engineer: NED PAK ([id number])[facility] ([facility])[address] [place] [address] Urea nitrogen [Mass/Vol] 17 mg/dL Normal 7-17 [facility] Comment on above: Performed By: #### L AB103, FAE363, LAB20, LAB15 ####Windows Infrastructure Engineer: NED PAK ([id number])[facility] ([facility])[address] [place] [address] CBC (HEMOGRAM)on 01-30-2023 Erythrocyte distribution width (RBC) [Ratio] 15.6 % High 11.5-14.5 [facility] Comment on above: Performed By: #### L AB294 ####Windows Infrastructure Engineer: NED PAK ([id number])[facility])[address] [place] [address] ERYTHROCYTE MEAN CORPUSCULAR HEMOGLOBIN CONCENTRATION (G/DL) BY AUTOMATED 32.8 % Normal 32.0-36.0 [facility] Comment on above: Performed By: #### L AB294 ####Windows Infrastructure Engineer: NED PAK ([id number])[facility] ([facility])[address] [place] [address] Hematocrit (Bld) [Volume fraction] 32.5 % Low 35.0-47.0 [facility] Comment on above: Performed By: #### L AB294 ####Windows Infrastructure Engineer: NED PAK ([id number])[facility])[address] [place] [address] Hemoglobin (Bld) [Mass/Vol] 10.6 g/dL Low 11.7-16.0 [facility] Comment on above: Performed By: #### L AB294 ####Windows Infrastructure Engineer: NED PAK ([id number])[facility])[address] [place] [address] MCH (RBC) [Entitic mass] 28.4 pg Normal 26.0-34.0 [facility] Comment on above: Performed By: #### L AB294 ####Windows Infrastructure Engineer: NED PAK ([id number])[facility] ([facility])[address] [place] [address] MCV (RBC) [Entitic vol] 86.6 fL Normal 80.0-98.0 [facility] Comment on above: Performed By: #### L AB294 ####Windows Infrastructure Engineer: NED PAK ([id number])[facility])[address] [place] [address] Platelet mean volume (Bld) [Entitic vol] 8.1 fL Normal 7.4-12.4 [facility] Comment on above: Performed By: #### L AB294 ####Windows Infrastructure Engineer: NED PAK ([id number])[facility])[address] [place] [address] Platelets (Bld) [#/Vol] 352 10*3/uL Normal 140-440 [facility] Comment on above: Performed By: #### L AB294 ####Windows Infrastructure Engineer: NED PAK ([id number])[facility])[address] [place] [address] RBC (Bld) [#/Vol] 3.75 10*6/uL Low 3.8-5.20 [facility] Comment on above: Performed By: #### L AB294 ####Windows Infrastructure Engineer: NED PAK ([id number])[facility])[address] [place] [address] WBC (Bld) [#/Vol] 26.5 10*3/uL High 3.6-10.7 [facility] Comment on above: Performed By: #### L AB294 ####Windows Infrastructure Engineer: NED PAK ([id number])[facility])[address] [place] [address] HEPATIC FUNCTION PANELon Albumin [Mass/Vol] 2.7 g/dL Low 3.5-5.0 [facility] Comment on above: Performed By: #### L AB103, EBO682, LAB20, LAB15 ####Windows Infrastructure Engineer: NED PAK ([id number])[facility] ([facility])[address] [place] [address] ALP [Catalytic activity/Vol] 100 U/L Normal 38-126 [facility] Comment on above: Performed By: #### L AB103, XJR340, LAB20, LAB15 ####Windows Infrastructure Engineer: NED PAK ([id number])[facility] ([facility])[address] [place] [address] ALT [Catalytic activity/Vol] 58 U/L High 0-34 [facility] Comment on above: Performed By: #### L AB103, RQA807, LAB20, LAB15 ####Windows Infrastructure Engineer: NED PAK ([id number])[facility])[address] [place] [address] AST [Catalytic activity/Vol] 76 U/L High 15-46 [facility] Comment on above: Performed By: #### L AB103, ZVR406, LAB20, LAB15 ####Windows Infrastructure Engineer: NED PAK ([id number])[facility] ([facility])[address] [place] [address] Bilirubin [Mass/Vol] 0.7 mg/dL Normal 0.2-1.3 [facility] Comment on above: Performed By: #### L AB103, QWM376, LAB20, LAB15 ####Windows Infrastructure Engineer: NED PAK ([id number])[facility])[address] [place] [address] Bilirubin.indirect [Mass/Vol] 0.0 mg/dL Normal 0.0-0.3 [facility] Comment on above: Performed By: #### L AB103, TCT669, LAB20, LAB15 ####Windows Infrastructure Engineer: NED PAK ([id number])[facility])[address] [place] [address] Protein [Mass/Vol] 6.2 g/dL Low 6.3-8.2 [facility] Comment on above: Performed By: #### L AB103, RXF231, LAB20, LAB15 ####Windows Infrastructure Engineer: NED PAK ([id number])[facility] ([facility])[address] [place] [address] MAGNESIUMon 01-30-2023 Magnesium [Mass/Vol] 2.0 mg/dL Normal 1.6-2.3 [facility] Comment on above: Performed By: #### L AB103, RFT652, LAB20, LAB15 ####Windows Infrastructure Engineer: NED PAK ([id number])[facility] ([facility])[address] [place] [address] PHOSPHORUSon 01-30-2023 Phosphate [Mass/Vol] 3.5 mg/dL Normal 2.5-4.5 [facility] Comment on above: Performed By: #### L AB103, VLW646, LAB20, LAB15 ####Windows Infrastructure Engineer: NED PAK ([id number])[facility] ([facility])[address] [place] [address] Progress Noteon 01-30-2023 Progress Note Normal [facility] Progress Note Normal [facility] Progress Note Normal [facility] BASIC METABOLIC PANELon 01-20 Anion gap [Moles/Vol] 9 mmol/L Normal 3-13 [facility] Comment on above: Performed By: #### L AB113, WCA924, LAB15 ####Windows Infrastructure Engineer: NED PAK ([id number])[facility])[address] [place] [address] Calcium [Mass/Vol] 8.3 mg/dL Low 8.4-10.4 [facility] Comment on above: Performed By: #### L AB113, WBB638, LAB15 ####Windows Infrastructure Engineer: NED PAK ([id number])[facility])[address] [place] [address] Chloride [Moles/Vol] 115 mmol/L High 98-107 [facility] Comment on above: Performed By: #### L AB113, MLD568, LAB15 ####Windows Infrastructure Engineer: NED PAK ([id number])[facility] ([facility])[address] [place] [address] CO2 [Moles/Vol] 24 mmol/L Normal 22-30 [facility] Comment on above: Performed By: #### Tameka AB113, MDO659, LAB15 ####Windows Infrastructure Engineer: NED PAK ([id number])[facility])[address] [place] [address] Creatinine [Mass/Vol] 0.56 mg/dL Normal 0.52-1.04 [facility] Comment on above: Performed By: #### L AB113, XCI230, LAB15 ####Windows Infrastructure Engineer: NED PAK ([id number])[facility])[address] [place] [address] GLOMERULAR FILTRATION RATE ML/MIN/1.73 SQ M.PREDICTED >90.0 Normal >60.0 [facility] Comment on above: Result Comment: Calc ulation based on the Chronic Kidney Disease Epidemiology Collaboration (CKD-EPI) equation refit without adjustment for race Performed By: #### L AB113, [id number], LAB15 ####Windows Infrastructure Engineer: NED PAK ([id number])[facility] ([facility])[address] [place] [address] [place] Glucose [Mass/Vol] 129 mg/dL High 70-100 [facility] Comment on above: Performed By: #### L AB113, [id number], LAB15 ####Windows Infrastructure Engineer: NED PAK ([id number])[facility])[address] [place] [address] Potassium [Moles/Vol] 3.2 mmol/L Low 3.5-5.1 [facility] Comment on above: Performed By: #### L AB113, [id number], LAB15 ####Windows Infrastructure Engineer: NED PAK ([id number])[facility])[address] [place] [address] Sodium [Moles/Vol] 148 mmol/L High 135-145 [facility] Comment on above: Performed By: #### L AB113, RGC093, LAB15 ####Windows Infrastructure Engineer: NED PAK ([id number])[facility])[address] [place] [address] Urea nitrogen [Mass/Vol] 13 mg/dL Normal 7-17 [facility] Comment on above: Performed By: #### L AB113, SND035, LAB15 ####Windows Infrastructure Engineer: NED PAK ([id number])[facility])[address] [place] [address] BLOOD CULTUREon 01-29-2023 Bacteria identified Cx Nom (Bld) Normal [facility] Comment on above: Performed By: #### L AB462 ####Windows Infrastructure Engineer: NED PAK ([id number])[facility])[address] [place] [address] Bacteria identified Cx Nom (Bld) Normal [facility] Comment on above: Performed By: #### L AB462 ####Windows Infrastructure Engineer: NED PAK ([id number])[facility])[address] [place] [address] C. DIFFICILE BY PCR WITH REF MALENA TO EIAon 01-29-2023 C. DIFFICILE BY PCR WITH REFLEX TO EIA Normal [facility] Comment on above: Performed By: #### L AB257, [id number] ####Windows Infrastructure Engineer: NED PAK ([id number])[facility])[address] [place] [address] CARECOORDon 01-29-2023 CARECOORD Normal [facility] CBC (HEMOGRAM)on 01-29-2023 Erythrocyte distribution width (RBC) [Ratio] 15.6 % High 11.5-14.5 [facility] Comment on above: Performed By: #### L AB294, [id number] ####Windows Infrastructure Engineer: NED PAK ([id number])[facility])[address] [place] [address] ERYTHROCYTE MEAN CORPUSCULAR HEMOGLOBIN CONCENTRATION (G/DL) BY AUTOMATED 32.9 % Normal 32.0-36.0 [facility] Comment on above: Performed By: #### Tameka AB294, [id number] ####Windows Infrastructure Engineer: NED PKA ([id number])[facility])[address] [place] [address] Hematocrit (Bld) [Volume fraction] 30.7 % Low 35.0-47.0 [facility] Comment on above: Performed By: #### Tameka AB294, [id number] ####Windows Infrastructure Engineer: NED PAK ([id number])[facility])[address] [place] [address] Hemoglobin (Bld) [Mass/Vol] 10.1 g/dL Low 11.7-16.0 [facility] Comment on above: Performed By: #### Tameka AB294, [id number] ####Windows Infrastructure Engineer: NED PAK ([id number])[facility])[address] [place] [address] MCH (RBC) [Entitic mass] 28.5 pg Normal 26.0-34.0 [facility] Comment on above: Performed By: #### L AB294, [id number] ####Windows Infrastructure Engineer: NED PAK ([id number])[facility])[address] [place] [address] MCV (RBC) [Entitic vol] 86.5 fL Normal 80.0-98.0 [facility] Comment on above: Performed By: #### L AB294, [id number] ####Windows Infrastructure Engineer: NED PAK ([id number])[facility])[address] [place] [address] Platelet mean volume (Bld) [Entitic vol] 8.5 fL Normal 7.4-12.4 [facility] Comment on above: Performed By: #### L AB294, [id number] ####Windows Infrastructure Engineer: NED PAK ([id number])[facility] ([facility])[address] [place] [address] Platelets (Bld) [#/Vol] 298 10*3/uL Normal 140-440 [facility] Comment on above: Performed By: #### L AB294, [id number] ####Windows Infrastructure Engineer: NED PAK ([id number])[facility] ([facility])[address] [place] [address] RBC (Bld) [#/Vol] 3.54 10*6/uL Low 3.8-5.20 [facility] Comment on above: Performed By: #### L AB294, [id number] ####Windows Infrastructure Engineer: NED PAK ([id number])[facility] ([facility])[address] [place] [address] WBC (Bld) [#/Vol] 17.7 10*3/uL High 3.6-10.7 [facility] Comment on above: Performed By: #### L AB294, [id number] ####Windows Infrastructure Engineer: NED PAK ([id number])[facility] ([facility])[address] [place] [address] LAB ONLY ? C DIFF EIAon 01-20 LAB ONLY ? C DIFF EIA Normal [facility] Comment on above: Performed By: #### L AB257, [id number] ####Windows Infrastructure Engineer: NED PAK ([id number])[facility])[address] [place] [address] MAGNESIUMon 01-29-2023 Magnesium [Mass/Vol] 1.9 mg/dL Normal 1.6-2.3 [facility] Comment on above: Performed By: #### L AB113, CNT133, LAB15 ####Windows Infrastructure Engineer: NED PAK ([id number])[facility])[address] [place] [address] PHOSPHORUSon 01-29-2023 Phosphate [Mass/Vol] 2.4 mg/dL Low 2.5-4.5 [facility] Comment on above: Performed By: #### L AB113, DWI491, LAB15 ####Windows Infrastructure Engineer: NED PAK ([id number])[facility] ([facility])[address] [place] [address] PROCALCITONIN TESTon 023 PROCALCITONIN 0.56 ng/mL High 0.00-0.09 [facility] Comment on above: Result Comment: ORDE R COMMENTS:PCT <0.50 = Low risk of severe sepsis and/or septic shock.PCT >2.00 = High risk of severe sepsis and/or septic shock. Performed By: #### L [id number] ####Windows Infrastructure Engineer: NED PAK ([id number])[address] Progress Noteon 01-29-2023 Progress Note Normal [facility] Progress Note Normal [facility] Progress Note Normal [facility] Progress Note Normal [facility] RETICULOCYTESon 01-29-2023 Reticulocytes/100 RBC (Bld) 0.61 % Normal [facility] Comment on above: Result Comment: Newb orn < 5%Adults 0.5 - 1.5% Performed By: #### L AB294, [id number] ####Windows Infrastructure Engineer: NED PAK ([id number])[facility] ([facility])[address] [place] [address] XR CHEST 1 VIEWon 01-29-2023 XR CHEST 1 VIEW Normal [facility] BASIC METABOLIC PANELon Anion gap [Moles/Vol] 4 mmol/L Normal 3-13 [facility] Comment on above: Performed By: #### L AB15 ####Windows Infrastructure Engineer: NED PAK ([id number])[facility])[address] [place] [address] Calcium [Mass/Vol] 8.5 mg/dL Normal 8.4-10.4 [facility] Comment on above: Performed By: #### L AB15 ####Windows Infrastructure Engineer: NED PAK ([id number])[facility] ([facility])[address] [place] [address] Chloride [Moles/Vol] 116 mmol/L High 98-107 [facility] Comment on above: Performed By: #### L AB15 ####Windows Infrastructure Engineer: NED PAK ([id number])[facility] [place] [address] CO2 [Moles/Vol] 27 mmol/L Normal 22-30 [facility] Comment on above: Performed By: #### L AB15 ####Windows Infrastructure Engineer: NED PAK ([id number])[facility] ([facility])[address] [place] [address] Creatinine [Mass/Vol] 0.50 mg/dL Low 0.52-1.04 [facility] Comment on above: Performed By: #### L AB15 ####Windows Infrastructure Engineer: NED PAK ([id number])[facility] ([facility])[address] [place] [address] GLOMERULAR FILTRATION RATE ML/MIN/1.73 SQ M.PREDICTED >90.0 Normal >60.0 [facility] Comment on above: Result Comment: Calc ulation based on the Chronic Kidney Disease Epidemiology Collaboration (CKD-EPI) equation refit without adjustment for race Performed By: #### L AB15 ####Windows Infrastructure Engineer: NED PAK ([id number])[facility] ([facility])[address] [place] [address] [place] Glucose [Mass/Vol] 160 mg/dL High 70-100 [facility] Comment on above: Performed By: #### L AB15 ####Windows Infrastructure Engineer: NED PAK ([id number])[facility] ([facility])[address] [place] [address] [place] Potassium [Moles/Vol] 3.5 mmol/L Normal 3.5-5.1 [facility] Comment on above: Performed By: #### L AB15 ####Windows Infrastructure Engineer: NED PAK ([id number])[facility])[address] [place] [address] Sodium [Moles/Vol] 146 mmol/L High 135-145 [facility] Comment on above: Performed By: #### L AB15 ####Windows Infrastructure Engineer: NED PAK ([id number])[facility] ([facility])[address] [place] [address] Urea nitrogen [Mass/Vol] 11 mg/dL Normal 7-17 [facility] Comment on above: Performed By: #### L AB15 ####Windows Infrastructure Engineer: NED PAK ([id number])[facility])[address] [place] [address] Anion gap [Moles/Vol] 7 mmol/L Normal 3-13 [facility] Comment on above: Performed By: #### L AB113, LAB15, CVC087 ####Windows Infrastructure Engineer: NED PAK ([id number])[facility] ([facility])[address] [place] [address] Calcium [Mass/Vol] 8.7 mg/dL Normal 8.4-10.4 [facility] Comment on above: Performed By: #### L AB113, LAB15, IFJ156 ####Windows Infrastructure Engineer: NED PAK ([id number])[facility] ([facility])[address] [place] [address] [place] Chloride [Moles/Vol] 119 mmol/L High 98-107 [facility] Comment on above: Performed By: #### L AB113, LAB15, CLR094 ####Windows Infrastructure Engineer: NED PAK ([id number])[facility])[address] [place] [address] [place] CO2 [Moles/Vol] 26 mmol/L Normal 22-30 [facility] Comment on above: Performed By: #### L AB113, LAB15, QSY817 ####Windows Infrastructure Engineer: NED PAK ([id number])[facility] [place] [address] Creatinine [Mass/Vol] 0.54 mg/dL Normal 0.52-1.04 [facility] Comment on above: Performed By: #### L AB113, LAB15, [id number] ####Windows Infrastructure Engineer: NED PAK ([id number])[facility] ([facility])[address] [place] [address] GLOMERULAR FILTRATION RATE ML/MIN/1.73 SQ M.PREDICTED >90.0 Normal >60.0 [facility] Comment on above: Result Comment: Calc ulation based on the Chronic Kidney Disease Epidemiology Collaboration (CKD-EPI) equation refit without adjustment for race Performed By: #### L AB113, LAB15, [id number] ####Windows Infrastructure Engineer: NED PAK ([id number])[facility] ([facility])[address] [place] [address] Glucose [Mass/Vol] 115 mg/dL High 70-100 [facility] Comment on above: Performed By: #### L AB113, LAB15, VWB393 ####Windows Infrastructure Engineer: NED PAK ([id number])[facility] ([facility])[address] [place] [address] Potassium [Moles/Vol] 2.8 mmol/L Low 3.5-5.1 [facility] Comment on above: Performed By: #### L AB113, LAB15, PLF550 ####Windows Infrastructure Engineer: NED PAK ([id number])[facility] ([facility])[address] [place] [address] Sodium [Moles/Vol] 151 mmol/L High 135-145 [facility] Comment on above: Performed By: #### L AB113, LAB15, GYK593 ####Windows Infrastructure Engineer: NED PAK ([id number])[facility])[address] [place] [address] Urea nitrogen [Mass/Vol] 15 mg/dL Normal 7-17 [facility] Comment on above: Performed By: #### L AB113, LAB15, AJT090 ####Windows Infrastructure Engineer: NED PAK ([id number])[facility] ([facility])[address] [place] [address] BLOOD TYPE AND SCREEN GELon 01-28-2023 ABO GROUPING A Normal [facility] Comment on above: Performed By: #### L AB276 ####Windows Infrastructure Engineer: NED PAK ([id number])[facility] ([facility])[address] [place] [address] RH TYPE IN BLOOD Positive Normal [facility] Comment on above: Performed By: #### L AB276 ####Windows Infrastructure Engineer: NED PAK ([id number])[facility] ([facility])[address] [place] [address] CBC (HEMOGRAM)on 01-28-2023 Erythrocyte distribution width (RBC) [Ratio] 15.7 % High 11.5-14.5 [facility] Comment on above: Performed By: #### L AB294 ####Windows Infrastructure Engineer: NED PAK ([id number])[facility] ([facility])[address] [place] [address] ERYTHROCYTE MEAN CORPUSCULAR HEMOGLOBIN CONCENTRATION (G/DL) BY AUTOMATED 33.3 % Normal 32.0-36.0 [facility] Comment on above: Performed By: #### L AB294 ####Windows Infrastructure Engineer: NED PAK ([id number])[address] Hematocrit (Bld) [Volume fraction] 26.4 % Low 35.0-47.0 [facility] Comment on above: Performed By: #### L AB294 ####Windows Infrastructure Engineer: NED PAK ([id number])[facility])[address] [place] [address] Hemoglobin (Bld) [Mass/Vol] 8.8 g/dL Low 11.7-16.0 [facility] Comment on above: Performed By: #### L AB294 ####Windows Infrastructure Engineer: NED PAK ([id number])[facility])[address] [place] [address] MCH (RBC) [Entitic mass] 28.5 pg Normal 26.0-34.0 [facility] Comment on above: Performed By: #### L AB294 ####Windows Infrastructure Engineer: NED PAK ([id number])[facility] ([facility])[address] [place] [address] MCV (RBC) [Entitic vol] 85.6 fL Normal 80.0-98.0 [facility] Comment on above: Performed By: #### L AB294 ####Windows Infrastructure Engineer: NED PAK ([id number])[facility])[address] [place] [address] Platelet mean volume (Bld) [Entitic vol] 9.0 fL Normal 7.4-12.4 [facility] Comment on above: Performed By: #### L AB294 ####Windows Infrastructure Engineer: NED PAK ([id number])[facility] ([facility])[address] [place] [address] Platelets (Bld) [#/Vol] 269 10*3/uL Normal 140-440 [facility] Comment on above: Performed By: #### L AB294 ####Windows Infrastructure Engineer: NED PAK ([id number])[facility])[address] [place] [address] RBC (Bld) [#/Vol] 3.08 10*6/uL Low 3.8-5.20 [facility] Comment on above: Performed By: #### L AB294 ####Windows Infrastructure Engineer: NED PAK ([id number])[facility] ([facility])[address] [place] [address] WBC (Bld) [#/Vol] 14.3 10*3/uL High 3.6-10.7 [facility] Comment on above: Performed By: #### L AB294 ####Windows Infrastructure Engineer: NED PAK ([id number])[facility] ([facility])[address] [place] [address] Consulton 01-28-2023 Consult Re-consult acknowled ged, plans for [place] today, will officially return and see tomorrow, Normal [facility] HEMOGLOBIN AND HEMATOCRIT, B LOODon 01-28-2023 Hematocrit (Bld) [Volume fraction] 22.4 % Low 35.0-47.0 [facility] Comment on above: Performed By: #### L AB753 ####Windows Infrastructure Engineer: NED PAK ([id number])[facility])[address] [place] [address] Hemoglobin (Bld) [Mass/Vol] 7.3 g/dL Low 11.7-16.0 [facility] Comment on above: Performed By: #### L AB753 ####Windows Infrastructure Engineer: NED PAK ([id number])[facility] ([facility])[address] [place] [address] MAGNESIUMon 01-28-2023 Magnesium [Mass/Vol] 1.9 mg/dL Normal 1.6-2.3 [facility] Comment on above: Performed By: #### L AB113, LAB15, JVS999 ####Windows Infrastructure Engineer: NED PAK ([id number])[facility])[address] [place] [address] PHOSPHORUSon 01-28-2023 Phosphate [Mass/Vol] 2.5 mg/dL Normal 2.5-4.5 [facility] Comment on above: Performed By: #### L AB113, LAB15, RLX556 ####Windows Infrastructure Engineer: END PAK ([id number])[facility])[address] [place] [address] Progress Noteon 01-28-2023 Progress Note Normal [facility] Progress Note Normal [facility] Progress Note Normal [facility] Progress Note Normal [facility] BASIC METABOLIC PANELon 11-0 Anion gap [Moles/Vol] 8 mmol/L Normal 3-13 [facility] Comment on above: Performed By: #### L AB40, IVQ520, LAB15, STM638 ####Windows Infrastructure Engineer: NED PAK ([id number])[facility])[address] [place] [address] Calcium [Mass/Vol] 9.1 mg/dL Normal 8.4-10.4 [facility] Comment on above: Performed By: #### L AB40, FPI050, LAB15, EZA209 ####Windows Infrastructure Engineer: NED PAK ([id number])[facility])[address] [place] [address] Chloride [Moles/Vol] 121 mmol/L High 98-107 [facility] Comment on above: Performed By: #### L AB40, GCB018, LAB15, PKK819 ####Windows Infrastructure Engineer: NED PAK ([id number])[address] CO2 [Moles/Vol] 22 mmol/L Normal 22-30 [facility] Comment on above: Performed By: #### L AB40, CXU020, LAB15, BZM052 ####Windows Infrastructure Engineer: NED PAK ([id number])[facility])[address] [place] [address] Creatinine [Mass/Vol] 0.51 mg/dL Low 0.52-1.04 [facility] Comment on above: Performed By: #### L AB40, YZM043, LAB15, JYF914 ####Windows Infrastructure Engineer: NED PAK ([id number])[address] GLOMERULAR FILTRATION RATE ML/MIN/1.73 SQ M.PREDICTED >90.0 Normal >60.0 [facility] Comment on above: Result Comment: Calc ulation based on the Chronic Kidney Disease Epidemiology Collaboration (CKD-EPI) equation refit without adjustment for race Performed By: #### L AB40, JFY872, LAB15, GFY077 ####Windows Infrastructure Engineer: NED PAK ([id number])[facility])[address] [place] [address] [place] Glucose [Mass/Vol] 156 mg/dL High 70-100 [facility] Comment on above: Performed By: #### L AB40, UPU350, LAB15, NEI201 ####Windows Infrastructure Engineer: NED PAK ([id number])[facility] ([facility])[address] [place] [address] Potassium [Moles/Vol] 3.5 mmol/L Normal 3.5-5.1 [facility] Comment on above: Performed By: #### L AB40, ZUU812, LAB15, PGA102 ####Windows Infrastructure Engineer: NED PAK ([id number])[facility])[address] [place] [address] Sodium [Moles/Vol] 151 mmol/L High 135-145 [facility] Comment on above: Performed By: #### L AB40, ZNN040, LAB15, YRV684 ####Windows Infrastructure Engineer: NED PAK ([id number])[facility] ([facility])[address] [place] [address] [place] Urea nitrogen [Mass/Vol] 23 mg/dL High 7-17 [facility] Comment on above: Performed By: #### L AB40, MRE972, LAB15, BPF955 ####Windows Infrastructure Engineer: NED PAK ([id number])[facility] ([facility])[address] [place] [address] BLOOD CULTUREon 01-27-2023 Bacteria identified Cx Nom (Bld) Normal [facility] Comment on above: Performed By: #### L AB462 ####Windows Infrastructure Engineer: NED PAK ([id number])[facility] ([facility])[address] [place] [address] Bacteria identified Cx Nom (Bld) Normal [facility] Comment on above: Performed By: #### L VM1814, [id number] ####Windows Infrastructure Engineer: NED PAK ([id number])[facility] ([facility])[address] [place] [address] BLOOD CULTURE IDENTIFICATION - AEROBICon 01-27-2023 BLOOD CULTURE IDENTIFICATION - AEROBIC Normal [facility] Comment on above: Performed By: #### L EZ2334, IGP853 ####Windows Infrastructure Engineer: NED PAK ([id number])[facility])[address] [place] [address] CARECOORDon 01-27-2023 CARECOORD Normal [facility] CBC (HEMOGRAM)on 01-27-2023 Erythrocyte distribution width (RBC) [Ratio] 16.0 % High 11.5-14.5 [facility] Comment on above: Performed By: #### L AB294 ####Windows Infrastructure Engineer: NED PAK ([id number])[facility])[address] [place] [address] ERYTHROCYTE MEAN CORPUSCULAR HEMOGLOBIN CONCENTRATION (G/DL) BY AUTOMATED 32.4 % Normal 32.0-36.0 [facility] Comment on above: Performed By: #### L AB294 ####Windows Infrastructure Engineer: NED PAK ([id number])[facility])[address] [place] [address] Hematocrit (Bld) [Volume fraction] 32.9 % Low 35.0-47.0 [facility] Comment on above: Performed By: #### L AB294 ####Windows Infrastructure Engineer: NED PAK ([id number])[facility])[address] [place] [address] Hemoglobin (Bld) [Mass/Vol] 10.6 g/dL Low 11.7-16.0 [facility] Comment on above: Performed By: #### L AB294 ####Windows Infrastructure Engineer: NED PAK ([id number])[facility])[address] [place] [address] MCH (RBC) [Entitic mass] 27.9 pg Normal 26.0-34.0 [facility] Comment on above: Performed By: #### L AB294 ####Windows Infrastructure Engineer: NED PAK ([id number])[address] MCV (RBC) [Entitic vol] 86.2 fL Normal 80.0-98.0 [facility] Comment on above: Performed By: #### L AB294 ####Windows Infrastructure Engineer: NED PAK ([id number])[facility] ([facility])[address] [place] [address] Platelet mean volume (Bld) [Entitic vol] 9.3 fL Normal 7.4-12.4 [facility] Comment on above: Performed By: #### L AB294 ####Windows Infrastructure Engineer: NED PAK ([id number])[facility] ([facility])[address] [place] [address] Platelets (Bld) [#/Vol] 259 10*3/uL Normal 140-440 [facility] Comment on above: Performed By: #### L AB294 ####Windows Infrastructure Engineer: NED PAK ([id number])[facility] ([facility])[address] [place] [address] RBC (Bld) [#/Vol] 3.81 10*6/uL Normal 3.8-5.20 [facility] Comment on above: Performed By: #### L AB294 ####Windows Infrastructure Engineer: NED PAK ([id number])[facility] ([facility])[address] [place] [address] WBC (Bld) [#/Vol] 20.8 10*3/uL High 3.6-10.7 [facility] Comment on above: Performed By: #### L AB294 ####Windows Infrastructure Engineer: NED PAK ([id number])[facility] ([facility])[address] [place] [address] Consulton 01-27-2023 Consult Normal [facility] MAGNESIUMon 01-27-2023 Magnesium [Mass/Vol] 2.0 mg/dL Normal 1.6-2.3 [facility] Comment on above: Performed By: #### L AB40, [id number], LAB15, CDK624 ####Windows Infrastructure Engineer: NED PAK ([id number])[facility] ([facility])[address] [place] [address] PHOSPHORUSon 01-27-2023 Phosphate [Mass/Vol] 2.4 mg/dL Low 2.5-4.5 [facility] Comment on above: Performed By: #### L AB40, [id number], LAB15, [id number] ####Windows Infrastructure Engineer: NED PAK ([id number])[facility])[address] [place] [address] PROCALCITONIN TESTon 023 PROCALCITONIN 1.61 ng/mL High 0.00-0.09 [facility] Comment on above: Result Comment: ORDE R COMMENTS:PCT <0.50 = Low risk of severe sepsis and/or septic shock.PCT >2.00 = High risk of severe sepsis and/or septic shock. Performed By: #### L [id number] ####Windows Infrastructure Engineer: NED PAK ([id number])[address] Progress Noteon 01-27-2023 Progress Note Normal [facility] Progress Note Normal [facility] Progress Note Normal [facility] Progress Note Normal [facility] VANCOMYCIN, RANDOMon 023 VANCOMYCIN 13.4 ug/mL Low 15.0-20.0 [facility] Comment on above: Order Comment: Alphonse gonzalez draw random vancomycin level @ 0400 on 01-27-23. Thank you. Performed By: #### L AB40, HIQ985, LAB15, CRM000 ####Windows Infrastructure Engineer: NED PAK ([id number])[facility])[address] [place] [address] BASIC METABOLIC PANELon Anion gap [Moles/Vol] 6 mmol/L Normal 3-13 [facility] Comment on above: Performed By: #### L AB15, LAB40, VZB478, LWD119 ####Windows Infrastructure Engineer: NED PAK ([id number])[facility])[address] [place] [address] Calcium [Mass/Vol] 8.9 mg/dL Normal 8.4-10.4 [facility] Comment on above: Performed By: #### L AB15, LAB40, KPP154, TMR601 ####Windows Infrastructure Engineer: NED PAK ([id number])[facility])[address] [place] [address] Chloride [Moles/Vol] 124 mmol/L High 98-107 [facility] Comment on above: Performed By: #### L AB15, LAB40, SYC198, KFT346 ####Windows Infrastructure Engineer: NED PAK ([id number])[facility])[address] [place] [address] CO2 [Moles/Vol] 18 mmol/L Low 22-30 [facility] Comment on above: Performed By: #### L AB15, LAB40, IHW601, KJT272 ####Windows Infrastructure Engineer: NED PAK ([id number])[facility])[address] [place] [address] Creatinine [Mass/Vol] 0.52 mg/dL Normal 0.52-1.04 [facility] Comment on above: Performed By: #### L AB15, LAB40, WAS476, NUE852 ####Windows Infrastructure Engineer: NED PAK ([id number])[facility])[address] [place] [address] GLOMERULAR FILTRATION RATE ML/MIN/1.73 SQ M.PREDICTED >90.0 Normal >60.0 [facility] Comment on above: Result Comment: Calc ulation based on the Chronic Kidney Disease Epidemiology Collaboration (CKD-EPI) equation refit without adjustment for raceORDER COMMENTS:Slightly Hemolyzed. Interpret K+ with caution. Performed By: #### L AB15, LAB40, AHE181, VFS799 ####Windows Infrastructure Engineer: NED PAK ([id number])[facility])[address] [place] [address] Glucose [Mass/Vol] 108 mg/dL High 70-100 [facility] Comment on above: Performed By: #### L AB15, LAB40, VOL878, YOA238 ####Windows Infrastructure Engineer: NED PAK ([id number])[facility])[address] [place] [address] Potassium [Moles/Vol] 3.8 mmol/L Normal 3.5-5.1 [facility] Comment on above: Performed By: #### L AB15, LAB40, SAZ156, ENA233 ####Windows Infrastructure Engineer: NED PAK ([id number])[facility])[address] [place] [address] Sodium [Moles/Vol] 148 mmol/L High 135-145 [facility] Comment on above: Performed By: #### L AB15, LAB40, FSO919, VGL834 ####Windows Infrastructure Engineer: NED PAK ([id number])[facility])[address] [place] [address] Urea nitrogen [Mass/Vol] 23 mg/dL High 7-17 [facility] Comment on above: Performed By: #### L AB15, LAB40, NGZ607, VKK947 ####Windows Infrastructure Engineer: NED PAK ([id number])[facility])[address] [place] [address] CARECOORDon 01-26-2023 CARECOORD Normal [facility] CBC (HEMOGRAM)on 01-26-2023 Erythrocyte distribution width (RBC) [Ratio] 16.1 % High 11.5-14.5 [facility] Comment on above: Performed By: #### L AB294 ####Windows Infrastructure Engineer: NED PAK ([id number])[facility] ([facility])[address] [place] [address] ERYTHROCYTE MEAN CORPUSCULAR HEMOGLOBIN CONCENTRATION (G/DL) BY AUTOMATED 31.2 % Low 32.0-36.0 [facility] Comment on above: Performed By: #### L AB294 ####Windows Infrastructure Engineer: NED PAK ([id number])[facility])[address] [place] [address] Hematocrit (Bld) [Volume fraction] 37.0 % Normal 35.0-47.0 [facility] Comment on above: Performed By: #### L AB294 ####Windows Infrastructure Engineer: NED PAK ([id number])[facility])[address] [place] [address] Hemoglobin (Bld) [Mass/Vol] 11.5 g/dL Low 11.7-16.0 [facility] Comment on above: Performed By: #### L AB294 ####Windows Infrastructure Engineer: NED PAK ([id number])[facility])[address] [place] [address] MCH (RBC) [Entitic mass] 27.9 pg Normal 26.0-34.0 [facility] Comment on above: Performed By: #### L AB294 ####Windows Infrastructure Engineer: NED PAK ([id number])[facility])[address] [place] [address] MCV (RBC) [Entitic vol] 89.5 fL Normal 80.0-98.0 [facility] Comment on above: Performed By: #### L AB294 ####Windows Infrastructure Engineer: NED PAK ([id number])[facility])[address] [place] [address] Platelet mean volume (Bld) [Entitic vol] 8.6 fL Normal 7.4-12.4 [facility] Comment on above: Performed By: #### L AB294 ####Windows Infrastructure Engineer: NED PAK ([id number])[facility])[address] [place] [address] Platelets (Bld) [#/Vol] 204 10*3/uL Normal 140-440 [facility] Comment on above: Performed By: #### L AB294 ####Windows Infrastructure Engineer: NED PAK ([id number])[facility])[address] [place] [address] RBC (Bld) [#/Vol] 4.14 10*6/uL Normal 3.8-5.20 [facility] Comment on above: Performed By: #### L AB294 ####Windows Infrastructure Engineer: NED PAK ([id number])[address] WBC (Bld) [#/Vol] 19.8 10*3/uL High 3.6-10.7 [facility] Comment on above: Performed By: #### L AB294 ####Windows Infrastructure Engineer: NED PAK ([id number])[address] MAGNESIUMon 01-26-2023 Magnesium [Mass/Vol] 1.9 mg/dL Normal 1.6-2.3 [facility] Comment on above: Result Comment: ORDE R COMMENTS:Slightly Hemolyzed. Interpret Magnesium with caution. Performed By: #### L AB15, LAB40, LBS840, QCM222 ####Windows Infrastructure Engineer: NED PAK ([id number])[address] Nursing Noteon 01-26-2023 Nursing Note Trauma at bedside pr eparing patient for TLC insertion. Normal [facility] Nursing Note Called daughter and updated her on EEG being removed, C-collar being removed and probable need for central IV access. Answered all questions and concerns at this time. Offered for daughter to call anytime for concerns or updates. Normal [facility] Nursing Note Normal [facility] Nursing Note EEG removed per EMU staff/tech. Normal [facility] Nursing Note RN spoke to and granddaughter of patient at bedside. Questions answered and concerns addressed. Reassurance given. Will con't to monitor for further questions/concerns while family visiting at bedside. Normal [facility] Nursing Note Normal [facility] PHOSPHORUSon 01-26-2023 Phosphate [Mass/Vol] 2.9 mg/dL Normal 2.5-4.5 [facility] Comment on above: Result Comment: ORDE R COMMENTS:Slightly Hemolyzed. Interpret Phosphorus with caution. Performed By: #### L AB15, LAB40, KQA049, PLC258 ####Windows Infrastructure Engineer: NED PAK ([id number])[facility] ([facility])[address] [place] [address] Progress Noteon 01-26-2023 Progress Note Normal [facility] VANCOMYCIN, RANDOMon 023 VANCOMYCIN 10.8 ug/mL Low 15.0-20.0 [facility] Comment on above: Order Comment: Pleas e draw random vancomycin level with am labs 01/26/23 at least >2 hours after the end of the last vancomycin infusion. Thank you! Performed By: #### L AB15, LAB40, CGT649, TFS409 ####Windows Infrastructure Engineer: NED PAK ([id number])[facility] ([facility])[address] [place] [address] XR CHEST 1 VIEWon 01-26-2023 XR CHEST 1 VIEW Normal [facility] XR CHEST 1 VIEW Normal [facility] BASIC METABOLIC PANELon Anion gap [Moles/Vol] 10 mmol/L Normal 3-13 [facility] Comment on above: Performed By: #### L AB15, XPV563, YGA532 ####Windows Infrastructure Engineer: NED PAK ([id number])[facility] ([facility])[address] [place] [address] Calcium [Mass/Vol] 8.9 mg/dL Normal 8.4-10.4 [facility] Comment on above: Performed By: #### L AB15, OUI154, QPR778 ####Windows Infrastructure Engineer: NED PAK ([id number])[facility] ([facility])[address] [place] [address] Chloride [Moles/Vol] 114 mmol/L High 98-107 [facility] Comment on above: Performed By: #### L AB15, CGO205, FBW414 ####Windows Infrastructure Engineer: NED PAK ([id number])[facility])[address] [place] [address] CO2 [Moles/Vol] 15 mmol/L Low 22-30 [facility] Comment on above: Performed By: #### L AB15, XPN736, MUS443 ####Windows Infrastructure Engineer: NED PAK ([id number])[facility])[address] [place] [address] Creatinine [Mass/Vol] 0.55 mg/dL Normal 0.52-1.04 [facility] Comment on above: Performed By: #### L AB15, LXO278, YFH785 ####Windows Infrastructure Engineer: NED PAK ([id number])[facility])[address] [place] [address] GLOMERULAR FILTRATION RATE ML/MIN/1.73 SQ M.PREDICTED >90.0 Normal >60.0 [facility] Comment on above: Result Comment: Calc ulation based on the Chronic Kidney Disease Epidemiology Collaboration (CKD-EPI) equation refit without adjustment for race Performed By: #### L AB15, MNY922, VJS648 ####Windows Infrastructure Engineer: NED PAK ([id number])[facility])[address] [place] [address] Glucose [Mass/Vol] 79 mg/dL Normal 70-100 [facility] Comment on above: Performed By: #### L AB15, JUI169, WYG934 ####Windows Infrastructure Engineer: NED PAK ([id number])[facility])[address] [place] [address] Potassium [Moles/Vol] 3.4 mmol/L Low 3.5-5.1 [facility] Comment on above: Performed By: #### L AB15, FCM846, SZJ013 ####Windows Infrastructure Engineer: NED PAK ([id number])[facility])[address] [place] [address] [place] Sodium [Moles/Vol] 140 mmol/L Normal 135-145 [facility] Comment on above: Performed By: #### L AB15, MPM756, VXW906 ####Windows Infrastructure Engineer: NED PAK ([id number])[facility])[address] [place] [address] [place] Urea nitrogen [Mass/Vol] 22 mg/dL High 7-17 [facility] Comment on above: Performed By: #### L AB15, QAS624, QAU913 ####Windows Infrastructure Engineer: NED PAK ([id number])[facility])[address] [place] [address] BLOOD CULTUREon 01-25-2023 Bacteria identified Cx Nom (Bld) Normal [facility] Comment on above: Performed By: #### L AB462 ####Windows Infrastructure Engineer: NED PAK ([id number])[facility])[address] [place] [address] Bacteria identified Cx Nom (Bld) Normal [facility] Comment on above: Performed By: #### L AB462 ####Windows Infrastructure Engineer: NED PAK ([id number])[facility])[address] [place] [address] CARECOORDon 01-25-2023 CARECOORD Normal [facility] CBC (HEMOGRAM)on 01-25-2023 Erythrocyte distribution width (RBC) [Ratio] 15.3 % High 11.5-14.5 [facility] Comment on above: Performed By: #### L AB294 ####Windows Infrastructure Engineer: NED PAK ([id number])[facility])[address] [place] [address] ERYTHROCYTE MEAN CORPUSCULAR HEMOGLOBIN CONCENTRATION (G/DL) BY AUTOMATED 32.5 % Normal 32.0-36.0 [facility] Comment on above: Performed By: #### L AB294 ####Windows Infrastructure Engineer: NED PAK ([id number])[facility])[address] [place] [address] Hematocrit (Bld) [Volume fraction] 36.1 % Normal 35.0-47.0 [facility] Comment on above: Performed By: #### L AB294 ####Windows Infrastructure Engineer: NED PAK ([id number])[address] Hemoglobin (Bld) [Mass/Vol] 11.8 g/dL Normal 11.7-16.0 [facility] Comment on above: Performed By: #### L AB294 ####Windows Infrastructure Engineer: NED PAK ([id number])[facility])[address] [place] [address] MCH (RBC) [Entitic mass] 28.4 pg Normal 26.0-34.0 [facility] Comment on above: Performed By: #### L AB294 ####Windows Infrastructure Engineer: NED PAK ([id number])[facility])[address] [place] [address] MCV (RBC) [Entitic vol] 87.2 fL Normal 80.0-98.0 [facility] Comment on above: Performed By: #### L AB294 ####Windows Infrastructure Engineer: NED PAK ([id number])[facility])[address] [place] [address] Platelet mean volume (Bld) [Entitic vol] 8.9 fL Normal 7.4-12.4 [facility] Comment on above: Performed By: #### L AB294 ####Windows Infrastructure Engineer: NED PAK ([id number])[facility])[address] [place] [address] Platelets (Bld) [#/Vol] 246 10*3/uL Normal 140-440 [facility] Comment on above: Performed By: #### L AB294 ####Windows Infrastructure Engineer: NED PAK ([id number])[facility])[address] [place] [address] RBC (Bld) [#/Vol] 4.14 10*6/uL Normal 3.8-5.20 [facility] Comment on above: Performed By: #### L AB294 ####Windows Infrastructure Engineer: NED PAK ([id number])[facility])[address] [place] [address] WBC (Bld) [#/Vol] 20.3 10*3/uL High 3.6-10.7 [facility] Comment on above: Performed By: #### L AB294 ####Windows Infrastructure Engineer: NED PAK ([id number])[facility])[address] [place] [address] MAGNESIUMon 01-25-2023 Magnesium [Mass/Vol] 1.9 mg/dL Normal 1.6-2.3 [facility] Comment on above: Performed By: #### L AB15, ZZT112, YVD449 ####Windows Infrastructure Engineer: NED PAK ([id number])[facility] ([facility])[address] [place] [address] PHOSPHORUSon 01-25-2023 Phosphate [Mass/Vol] 2.1 mg/dL Low 2.5-4.5 [facility] Comment on above: Performed By: #### L AB15, XFP172, UCY176 ####Windows Infrastructure Engineer: NED PAK ([id number])[facility])[address] [place] [address] PNEUMONIA PCR PANELon 2022 PNEUMONIA PCR PANEL Normal [facility] Comment on above: Performed By: #### L [id number] ####Windows Infrastructure Engineer: NED PAK ([id number])[facility])[address] [place] [address] PROCALCITONIN TESTon 023 PROCALCITONIN 4.67 ng/mL High 0.00-0.09 [facility] Comment on above: Result Comment: ORDE R COMMENTS:PCT <0.50 = Low risk of severe sepsis and/or septic shock.PCT >2.00 = High risk of severe sepsis and/or septic shock. Performed By: #### L [id number] ####Windows Infrastructure Engineer: NED PAK ([id number])[facility] ([facility])[address] [place] [address] Progress Noteon 01-25-2023 Progress Note Normal [facility] Progress Note Normal [facility] Progress Note Normal [facility] Progress Note Normal [facility] Progress Note Normal [facility] Progress Note Normal [facility] Progress Note Normal [facility] RESPIRATORY CULTURE AND STAI Non 01-25-2023 RESPIRATORY CULTURE AND STAIN Normal [facility] Comment on above: Performed By: #### L AB900 ####Windows Infrastructure Engineer: NED PAK ([id number])[facility])[address] [place] [address] BASIC METABOLIC PANELon 11-0 Anion gap [Moles/Vol] 10 mmol/L Normal 3-13 [facility] Comment on above: Performed By: #### L AB15 ####Windows Infrastructure Engineer: NED PAK ([id number])[facility] ([facility])[address] [place] [address] Calcium [Mass/Vol] 9.8 mg/dL Normal 8.4-10.4 [facility] Comment on above: Performed By: #### L AB15 ####Windows Infrastructure Engineer: NED PAK ([id number])[facility] ([facility])[address] [place] [address] Chloride [Moles/Vol] 111 mmol/L High 98-107 [facility] Comment on above: Performed By: #### L AB15 ####Windows Infrastructure Engineer: NED PAK ([id number])[facility])[address] [place] [address] CO2 [Moles/Vol] 19 mmol/L Low 22-30 [facility] Comment on above: Performed By: #### L AB15 ####Windows Infrastructure Engineer: NED PAK ([id number])[facility])[address] [place] [address] Creatinine [Mass/Vol] 0.69 mg/dL Normal 0.52-1.04 [facility] Comment on above: Performed By: #### L AB15 ####Windows Infrastructure Engineer: NED PAK ([id number])[facility])[address] [place] [address] GLOMERULAR FILTRATION RATE ML/MIN/1.73 SQ M.PREDICTED 89.0 mL/min/1.73m*2 Normal >60.0 [facility] Comment on above: Result Comment: Calc ulation based on the Chronic Kidney Disease Epidemiology Collaboration (CKD-EPI) equation refit without adjustment for raceORDER COMMENTS:Slightly Hemolyzed. Interpret Potassium with caution. Performed By: #### L AB15 ####Windows Infrastructure Engineer: NED PAK ([id number])[facility] ([facility])[address] [place] [address] Glucose [Mass/Vol] 90 mg/dL Normal 70-100 [facility] Comment on above: Performed By: #### L AB15 ####Windows Infrastructure Engineer: NED PAK ([id number])[facility])[address] [place] [address] Potassium [Moles/Vol] 4.0 mmol/L Normal 3.5-5.1 [facility] Comment on above: Performed By: #### L AB15 ####Windows Infrastructure Engineer: NED PAK ([id number])[facility])[address] [place] [address] Sodium [Moles/Vol] 141 mmol/L Normal 135-145 [facility] Comment on above: Performed By: #### L AB15 ####Windows Infrastructure Engineer: NED PAK ([id number])[facility])[address] [place] [address] Urea nitrogen [Mass/Vol] 27 mg/dL High 7-17 [facility] Comment on above: Performed By: #### L AB15 ####Windows Infrastructure Engineer: NED PAK ([id number])[facility])[address] [place] [address] BLOOD GAS, VENOUSon 01-25-20 23 Base excess Calc (BldV) [Moles/Vol] -6.0000 mmol/L Low -3.0-3.0 [facility] Comment on above: Performed By: #### L AB79 ####Windows Infrastructure Engineer: NED PAK ([id number])[facility])[address] [place] [address] [place] CO2 [Moles/Vol] 19.3 mmol/L Low 24.0-28.0 [facility] Comment on above: Performed By: #### L AB79 ####Windows Infrastructure Engineer: NED PAK ([id number])[facility])[address] [place] [address] HCO3 (Bld) [Moles/Vol] 18.3 mmol/L Low 23.0-27.0 [facility] Comment on above: Performed By: #### L AB79 ####Windows Infrastructure Engineer: NED PAK ([id number])[facility])[address] [place] [address] Hemoglobin (Bld) [Mass/Vol] 10.4 g/dL Normal Screen Only [facility] Comment on above: Performed By: #### L AB79 ####Windows Infrastructure Engineer: NED PAK ([id number])[address] OXYGEN (MM HG) IN VENOUS BLOOD 17.1 mm Hg Low 30.0-50.0 [facility] Comment on above: Performed By: #### L AB79 ####Windows Infrastructure Engineer: NED PAK ([id number])[facility])[address] [place] [address] OXYGEN SATURATION (%) IN VENOUS BLOOD 17.6 % Low 60.0-80.0 [facility] Comment on above: Performed By: #### L AB79 ####Windows Infrastructure Engineer: NED PAK ([id number])[facility])[address] [place] [address] PCO2, MIGUEL 31.9 mm Hg Low 40.0-55.0 [facility] Comment on above: Performed By: #### L AB79 ####Windows Infrastructure Engineer: NED PAK ([id number])[address] PH VENOUS 7.376 Normal 7.330-7.43 0 [facility] Comment on above: Performed By: #### L AB79 ####Windows Infrastructure Engineer: NED PAK ([id number])[facility])[address] [place] [address] SOURCE OF OXYGEN Room Air Normal [facility] Comment on above: Performed By: #### L AB79 ####Windows Infrastructure Engineer: NED PAK ([id number])[facility])[address] [place] [address] CBC (HEMOGRAM)on 01-24-2023 Erythrocyte distribution width (RBC) [Ratio] 14.9 % High 11.5-14.5 [facility] Comment on above: Performed By: #### L AB294 ####Windows Infrastructure Engineer: NED PAK ([id number])[address] ERYTHROCYTE MEAN CORPUSCULAR HEMOGLOBIN CONCENTRATION (G/DL) BY AUTOMATED 31.5 % Low 32.0-36.0 [facility] Comment on above: Performed By: #### L AB294 ####Windows Infrastructure Engineer: NED PAK ([id number])[facility])[address] [place] [address] Hematocrit (Bld) [Volume fraction] 35.3 % Normal 35.0-47.0 [facility] Comment on above: Performed By: #### L AB294 ####Windows Infrastructure Engineer: NED PAK ([id number])[facility])[address] [place] [address] Hemoglobin (Bld) [Mass/Vol] 11.1 g/dL Low 11.7-16.0 [facility] Comment on above: Performed By: #### L AB294 ####Windows Infrastructure Engineer: NED PAK ([id number])[facility])[address] [place] [address] MCH (RBC) [Entitic mass] 28.2 pg Normal 26.0-34.0 [facility] Comment on above: Performed By: #### L AB294 ####Windows Infrastructure Engineer: NED PAK ([id number])[facility])[address] [place] [address] MCV (RBC) [Entitic vol] 89.6 fL Normal 80.0-98.0 [facility] Comment on above: Performed By: #### L AB294 ####Windows Infrastructure Engineer: NED PAK ([id number])[facility] ([facility])[address] [place] [address] Platelet mean volume (Bld) [Entitic vol] 9.1 fL Normal 7.4-12.4 [facility] Comment on above: Performed By: #### L AB294 ####Windows Infrastructure Engineer: NED PAK ([id number])[facility] ([facility])[address] [place] [address] Platelets (Bld) [#/Vol] 217 10*3/uL Normal 140-440 [facility] Comment on above: Performed By: #### L [id number] ####Windows Infrastructure Engineer: NED PAK ([id number])[facility] ([facility])[address] [place] [address] RBC (Bld) [#/Vol] 3.94 10*6/uL Normal 3.8-5.20 [facility] Comment on above: Performed By: #### L [id number] ####Windows Infrastructure Engineer: NED PAK ([id number])[facility] ([facility])[address] [place] [address] WBC (Bld) [#/Vol] 17.6 10*3/uL High 3.6-10.7 [facility] Comment on above: Performed By: #### L [id number] ####Windows Infrastructure Engineer: NED PAK ([id number])[facility] ([facility])[address] [place] [address] Consulton 01-24-2023 Consult Normal [facility] Consult Normal [facility] ECG 12-LEADon 01-24-2023 ECG 12-LEAD IMPRESSION: Sinus rhythm Left ventricular hypertrophy Electronically Signed On 01-24-2023 20:02:49 EST by Hari Hicks Normal [facility] ECG 12-LEAD IMPRESSION: Sinus tachycardia Probable left atrial enlargement Left axis deviation Borderline T wave abnormalities ST elevation, consider inferior injury Electronically Signed On 01-24-2023 15:11:14 EST by Hari Hicks [facility] ECG 12-LEAD IMPRESSION: Sinus tachycardia Left ventricular hypertrophy Electronically Signed On 01-24-2023 15:03:34 EST by Hari Hicks [facility] LACTIC ACID WITH REFLEXon Lactate [Moles/Vol] 2.0 mmol/L Normal 0.7-2.0 [facility] Comment on above: Performed By: #### L [id number] ####Windows Infrastructure Engineer: NED PAK ([id number])[facility] ([facility])[address] [place] [address] Lactate [Moles/Vol] 2.7 mmol/L High 0.7-2.0 [facility] Comment on above: Performed By: #### L [id number] ####Windows Infrastructure Engineer: NED PAK ([id number])[facility] ([facility])[address] [place] [address] Lactate [Moles/Vol] 2.9 mmol/L High 0.7-2.0 [facility] Comment on above: Performed By: #### L [id number] ####Windows Infrastructure Engineer: NED PAK ([id number])[facility] ([facility])[address] [place] [address] Progress Noteon 01-24-2023 Progress Note Normal [facility] Progress Note Normal [facility] Progress Note Normal [facility] XR ABDOMEN 1 VIEWon 01-25-20 23 XR ABDOMEN 1 VIEW Normal [facility] BASIC METABOLIC PANELon Anion gap [Moles/Vol] 13 mmol/L Normal 3-13 [facility] Comment on above: Performed By: #### L AB15, [id number] ####Windows Infrastructure Engineer: NED PAK ([id number])[facility])[address] [place] [address] Calcium [Mass/Vol] 9.6 mg/dL Normal 8.4-10.4 [facility] Comment on above: Performed By: #### L AB15, [id number] ####Windows Infrastructure Engineer: NED PAK ([id number])[facility] [place] [address] [place] Chloride [Moles/Vol] 110 mmol/L High 98-107 [facility] Comment on above: Performed By: #### Tameka GODDARD, [id number] ####Windows Infrastructure Engineer: NED PAK ([id number])[facility] [place] [address] [place] CO2 [Moles/Vol] 19 mmol/L Low 22-30 [facility] Comment on above: Performed By: #### Tameka GODDARD, [id number] ####Windows Infrastructure Engineer: NED PAK ([id number])[facility] ([facility])[address] [place] [address] Creatinine [Mass/Vol] 0.82 mg/dL Normal 0.52-1.04 [facility] Comment on above: Performed By: #### Tameka GODDARD, [id number] ####Windows Infrastructure Engineer: NED PAK ([id number])[facility] ([facility])[address] [place] [address] [place] GLOMERULAR FILTRATION RATE ML/MIN/1.73 SQ M.PREDICTED 73.3 mL/min/1.73m*2 Normal >60.0 [facility] Comment on above: Result Comment: Calc ulation based on the Chronic Kidney Disease Epidemiology Collaboration (CKD-EPI) equation refit without adjustment for race Performed By: #### Tameka GODDARD, [id number] ####Windows Infrastructure Engineer: NED PAK ([id number])[facility] [place] [address] [place] Glucose [Mass/Vol] 112 mg/dL High 70-100 [facility] Comment on above: Performed By: #### Tameka GODDARD, [id number] ####Windows Infrastructure Engineer: NED PAK ([id number])[facility] [place] [address] [place] Potassium [Moles/Vol] 4.0 mmol/L Normal 3.5-5.1 [facility] Comment on above: Performed By: #### L AB15, [id number] ####Windows Infrastructure Engineer: NED PAK ([id number])[facility] ([facility])[address] [place] [address] Sodium [Moles/Vol] 143 mmol/L Normal 135-145 [facility] Comment on above: Performed By: #### L AB15, [id number] ####Windows Infrastructure Engineer: NED PAK ([id number])[facility] ([facility])[address] [place] [address] Urea nitrogen [Mass/Vol] 30 mg/dL High 7-17 [facility] Comment on above: Performed By: #### L AB15, [id number] ####Windows Infrastructure Engineer: NED PAK ([id number])[facility] ([facility])[address] [place] [address] Anion gap [Moles/Vol] 14 mmol/L High 3-13 [facility] Comment on above: Performed By: #### L AB62, [id number], LAB15, ZTC523 ####Windows Infrastructure Engineer: NED PAK ([id number])[facility] ([facility])[address] [place] [address] Calcium [Mass/Vol] 10.4 mg/dL Normal 8.4-10.4 [facility] Comment on above: Performed By: #### L AB62, [id number], LAB15, [id number] ####Windows Infrastructure Engineer: NED PAK ([id number])[facility] ([facility])[address] [place] [address] [place] Chloride [Moles/Vol] 105 mmol/L Normal 98-107 [facility] Comment on above: Performed By: #### L AB62, [id number], LAB15, YBI151 ####Windows Infrastructure Engineer: NED PAK ([id number])[facility])[address] [place] [address] [place] CO2 [Moles/Vol] 18 mmol/L Low 22-30 [facility] Comment on above: Performed By: #### L AB62, HEC521, LAB15, YND176 ####Windows Infrastructure Engineer: NED PAK ([id number])[facility])[address] [place] [address] Creatinine [Mass/Vol] 1.47 mg/dL High 0.52-1.04 [facility] Comment on above: Performed By: #### L AB62, TRI628, LAB15, LHC010 ####Windows Infrastructure Engineer: NED PAK ([id number])[facility])[address] [place] [address] GLOMERULAR FILTRATION RATE ML/MIN/1.73 SQ M.PREDICTED 36.4 mL/min/1.73m*2 Low >60.0 [facility] Comment on above: Result Comment: Calc ulation based on the Chronic Kidney Disease Epidemiology Collaboration (CKD-EPI) equation refit without adjustment for race Performed By: #### L AB62, VBM088, LAB15, [id number] ####Windows Infrastructure Engineer: NED PAK ([id number])[facility])[address] [place] [address] Glucose [Mass/Vol] 128 mg/dL High 70-100 [facility] Comment on above: Performed By: #### L AB62, QAX662, LAB15, OOR207 ####Windows Infrastructure Engineer: NED PAK ([id number])[facility])[address] [place] [address] Potassium [Moles/Vol] 3.5 mmol/L Normal 3.5-5.1 [facility] Comment on above: Performed By: #### L AB62, BMU990, LAB15, [id number] ####Windows Infrastructure Engineer: NED PAK ([id number])[facility])[address] [place] [address] Sodium [Moles/Vol] 137 mmol/L Normal 135-145 [facility] Comment on above: Performed By: #### L AB62, ECT482, LAB15, YJE790 ####Windows Infrastructure Engineer: NED PAK ([id number])[facility])[address] [place] [address] Urea nitrogen [Mass/Vol] 35 mg/dL High 7-17 [facility] Comment on above: Performed By: #### L AB62, [id number], LAB15, VSM159 ####Windows Infrastructure Engineer: NED PAK ([id number])[facility] [place] [address] Anion gap [Moles/Vol] 12 mmol/L Normal 3-13 [facility] Comment on above: Performed By: #### L AB15, [id number] ####Windows Infrastructure Engineer: NED PAK ([id number])[facility] ([facility])[address] [place] [address] Calcium [Mass/Vol] 10.6 mg/dL High 8.4-10.4 [facility] Comment on above: Performed By: #### Tameka HEREDIA15, [id number] ####Windows Infrastructure Engineer: NED PAK ([id number])[facility] [place] [address] Chloride [Moles/Vol] 105 mmol/L Normal 98-107 [facility] Comment on above: Performed By: #### L 15, [id number] ####Windows Infrastructure Engineer: NED PAK ([id number])[facility] [place] [address] CO2 [Moles/Vol] 19 mmol/L Low 22-30 [facility] Comment on above: Performed By: #### Tameka HEREDIA15, [id number] ####Windows Infrastructure Engineer: NED PAK ([id number])[facility] [place] [address] [place] Creatinine [Mass/Vol] 1.26 mg/dL High 0.52-1.04 [facility] Comment on above: Performed By: #### L AB15, [id number] ####Windows Infrastructure Engineer: NED PAK ([id number])[facility] [place] [address] GLOMERULAR FILTRATION RATE ML/MIN/1.73 SQ M.PREDICTED 43.8 mL/min/1.73m*2 Low >60.0 [facility] Comment on above: Result Comment: Calc ulation based on the Chronic Kidney Disease Epidemiology Collaboration (CKD-EPI) equation refit without adjustment for race Performed By: #### L 15, [id number] ####Windows Infrastructure Engineer: NED PAK ([id number])[facility] ([facility])[address] [place] [address] Glucose [Mass/Vol] 152 mg/dL High 70-100 [facility] Comment on above: Performed By: #### Tameka AB15, [id number] ####Windows Infrastructure Engineer: NED PAK ([id number])[facility])[address] [place] [address] Potassium [Moles/Vol] 3.5 mmol/L Normal 3.5-5.1 [facility] Comment on above: Performed By: #### Tameka HEREDIA15, [id number] ####Windows Infrastructure Engineer: NED PAK ([id number])[facility] ([facility])[address] [place] [address] Sodium [Moles/Vol] 137 mmol/L Normal 135-145 [facility] Comment on above: Performed By: #### Tameka AB15, [id number] ####Windows Infrastructure Engineer: NED PAK ([id number])[facility] ([facility])[address] [place] [address] Urea nitrogen [Mass/Vol] 33 mg/dL High 7-17 [facility] Comment on above: Performed By: #### Tameka AB15, [id number] ####Windows Infrastructure Engineer: NED PAK ([id number])[facility] ([facility])[address] [place] [address] BLOOD CULTUREon 01-23-2023 Bacteria identified Cx Nom (Bld) Normal [facility] Comment on above: Performed By: #### L [id number], [id number] ####Windows Infrastructure Engineer: NED PAK ([id number])[facility])[address] [place] [address] Performed By: #### L AB462 ####Windows Infrastructure Engineer: NED PAK ([id number])[facility])[address] [place] [address] BLOOD CULTURE IDENTIFICATION - AEROBICon 01-23-2023 BLOOD CULTURE IDENTIFICATION - AEROBIC Normal [facility] Comment on above: Performed By: #### L IR2119, [id number] ####Windows Infrastructure Engineer: NED PAK ([id number])[facility])[address] [place] [address] BLOOD GAS ARTERIALon 023 Base excess Calc (Bld) [Moles/Vol] -6.1000 mmol/L Low -3.0-3.0 [facility] Comment on above: Performed By: #### L AB76 ####Windows Infrastructure Engineer: NED PAK ([id number])[facility])[address] [place] [address] CO2 [Moles/Vol] 18.7 mmol/L Low 23.0-27.0 [facility] Comment on above: Performed By: #### L AB76 ####Windows Infrastructure Engineer: NED PAK ([id number])[facility])[address] [place] [address] HCO3 (Bld) [Moles/Vol] 17.8 mmol/L Low 21.0-25.0 [facility] Comment on above: Performed By: #### L AB76 ####Windows Infrastructure Engineer: NED PAK ([id number])[facility])[address] [place] [address] Hemoglobin (Bld) [Mass/Vol] 10.8 g/dL Normal Screen Only [facility] Comment on above: Performed By: #### L AB76 ####Windows Infrastructure Engineer: NED PAK ([id number])[facility])[address] [place] [address] OXYGEN SATURATION (%) IN ARTERIAL BLOOD 93.2 % Low 95.0-100.0 [facility] Comment on above: Performed By: #### L AB76 ####Windows Infrastructure Engineer: NED PAK ([id number])[facility])[address] [place] [address] PCO2 ARTERIAL 29.6 mm Hg Low >35.0-<45. 0 [facility] Comment on above: Performed By: #### L AB76 ####Windows Infrastructure Engineer: NED PAK ([id number])[facility])[address] [place] [address] PH ARTERIAL 7.396 Normal 7.350-7.45 0 [facility] Comment on above: Performed By: #### L AB76 ####Windows Infrastructure Engineer: NED PAK ([id number])[address] ARTERIAL 70.8 mm Hg Low 80.0-100.0 [facility] Comment on above: Performed By: #### L AB76 ####Windows Infrastructure Engineer: NED PAK ([id number])[address] SOURCE OF OXYGEN Room Air Normal [facility] Comment on above: Performed By: #### L AB76 ####Windows Infrastructure Engineer: NED PAK ([id number])[address] CARECOORDon 01-23-2023 [place] Daughter Marily Call ed and notified of transfer to the ICU. Questions Answered. Normal [facility] CBC (HEMOGRAM)on 01-23-2023 Erythrocyte distribution width (RBC) [Ratio] 14.5 % Normal 11.5-14.5 [facility] Comment on above: Performed By: #### L [id number] ####Windows Infrastructure Engineer: NED PAK ([id number])[address] ERYTHROCYTE MEAN CORPUSCULAR HEMOGLOBIN CONCENTRATION (G/DL) BY AUTOMATED 31.9 % Low 32.0-36.0 [facility] Comment on above: Performed By: #### L AB294 ####Windows Infrastructure Engineer: NED [id number])[facility])[address] [place] [address] Hematocrit (Bld) [Volume fraction] 33.4 % Low 35.0-47.0 [facility] Comment on above: Performed By: #### L AB294 ####Windows Infrastructure Engineer: NED PAK ([id number])[facility])[address] [place] [address] Hemoglobin (Bld) [Mass/Vol] 10.6 g/dL Low 11.7-16.0 [facility] Comment on above: Performed By: #### L AB294 ####Windows Infrastructure Engineer: NED PAK ([id number])[address] MCH (RBC) [Entitic mass] 28.3 pg Normal 26.0-34.0 [facility] Comment on above: Performed By: #### L AB294 ####Windows Infrastructure Engineer: NED PAK ([id number])[facility] ([facility])[address] [place] [address] MCV (RBC) [Entitic vol] 88.8 fL Normal 80.0-98.0 [facility] Comment on above: Performed By: #### L AB294 ####Windows Infrastructure Engineer: NED PAK ([id number])[facility])[address] [place] [address] Platelet mean volume (Bld) [Entitic vol] 7.2 fL Low 7.4-12.4 [facility] Comment on above: Performed By: #### L AB294 ####Windows Infrastructure Engineer: NED PAK ([id number])[facility])[address] [place] [address] Platelets (Bld) [#/Vol] 234 10*3/uL Normal 140-440 [facility] Comment on above: Performed By: #### L [id number] ####Windows Infrastructure Engineer: NED PAK ([id number])[facility] [address] RBC (Bld) [#/Vol] 3.76 10*6/uL Low 3.8-5.20 [facility] Comment on above: Performed By: #### L [id number] ####Windows Infrastructure Engineer: NED PAK ([id number])[facility])[address] [place] [address] WBC (Bld) [#/Vol] 19.2 10*3/uL High 3.6-10.7 [facility] Comment on above: Performed By: #### L AB294 ####Windows Infrastructure Engineer: NED PAK ([id number])[facility])[address] [place] [address] CBC WITH AUTO DIFFERENTIALon 01-23-2023 Basophils (Bld) [#/Vol] 0.1 10*3/uL Normal 0.0-0.2 [facility] Comment on above: Performed By: #### L [id number] ####Windows Infrastructure Engineer: NED PAK ([id number])[facility] ([facility])[address] [place] [address] Basophils/100 WBC (Bld) 0.3 % Normal 0.0-2.0 [facility] Comment on above: Performed By: #### L [id number] ####Windows Infrastructure Engineer: NED PAK ([id number])[facility])[address] [place] [address] Eosinophils (Bld) [#/Vol] 0.0 10*3/uL Normal 0.0-0.5 [facility] Comment on above: Performed By: #### L [id number] ####Windows Infrastructure Engineer: NED PAK ([id number])[facility])[address] [place] [address] Eosinophils/100 WBC (Bld) 0.0 % Low 1.0-6.0 [facility] Comment on above: Performed By: #### L [id number] ####Windows Infrastructure Engineer: NED PAK ([id number])[facility] [address] Erythrocyte distribution width (RBC) [Ratio] 14.7 % High 11.5-14.5 [facility] Comment on above: Performed By: #### L [id number] ####Windows Infrastructure Engineer: NED PAK ([id number])[facility])[address] [place] [address] ERYTHROCYTE MEAN CORPUSCULAR HEMOGLOBIN CONCENTRATION (G/DL) BY AUTOMATED 33.1 % Normal 32.0-36.0 [facility] Comment on above: Performed By: #### L [id number] ####Windows Infrastructure Engineer: NED PAK ([id number])[address] Hematocrit (Bld) [Volume fraction] 31.9 % Low 35.0-47.0 [facility] Comment on above: Performed By: #### L [id number] ####Windows Infrastructure Engineer: NED PAK ([id number])[facility])[address] [place] [address] Hemoglobin (Bld) [Mass/Vol] 10.6 g/dL Low 11.7-16.0 [facility] Comment on above: Performed By: #### L [id number] ####Windows Infrastructure Engineer: NED PAK ([id number])[address] Lymphocytes (Bld) [#/Vol] 1.5 10*3/uL Normal 1.0-4.3 [facility] Comment on above: Performed By: #### L [id number] ####Windows Infrastructure Engineer: NED PAK ([id number])[facility])[address] [place] [address] Lymphocytes/100 WBC (Bld) 7.3 % Low 20.0-40.0 [facility] Comment on above: Performed By: #### L [id number] ####Windows Infrastructure Engineer: NED PAK ([id number])[facility])[address] [place] [address] MCH (RBC) [Entitic mass] 28.7 pg Normal 26.0-34.0 [facility] Comment on above: Performed By: #### L [id number] ####Windows Infrastructure Engineer: NED PAK ([id number])[facility])[address] [place] [address] MCV (RBC) [Entitic vol] 86.8 fL Normal 80.0-98.0 [facility] Comment on above: Performed By: #### L [id number] ####Windows Infrastructure Engineer: NED PAK ([id number])[facility] ([facility])[address] [place] [address] Monocytes (Bld) [#/Vol] 1.2 10*3/uL High 0.0-0.8 [facility] Comment on above: Performed By: #### L [id number] ####Windows Infrastructure Engineer: NED PAK ([id number])[facility])[address] [place] [address] Monocytes/100 WBC (Bld) 5.8 % Normal 2.0-10.0 [facility] Comment on above: Performed By: #### L [id number] ####Windows Infrastructure Engineer: NED PAK ([id number])[facility])[address] [place] [address] Neutrophils (Bld) [#/Vol] 17.5 10*3/uL High 1.8-7.0 [facility] Comment on above: Performed By: #### L [id number] ####Windows Infrastructure Engineer: NED PAK ([id number])[facility])[address] [place] [address] Neutrophils/100 WBC (Bld) 86.6 % High 40.0-80.0 [facility] Comment on above: Performed By: #### L [id number] ####Windows Infrastructure Engineer: NED PAK ([id number])[facility])[address] [place] [address] NRBC (PER 100 WBCS) BY AUTOMATED COUNT 0.0 /100 WBCs Normal 0.0-2.0 [facility] Comment on above: Performed By: #### L [id number] ####Windows Infrastructure Engineer: NED PAK ([id number])[facility])[address] [place] [address] Platelet mean volume (Bld) [Entitic vol] 7.5 fL Normal 7.4-12.4 [facility] Comment on above: Performed By: #### L [id number] ####Windows Infrastructure Engineer: NED PAK ([id number])[facility] ([facility])[address] [place] [address] Platelets (Bld) [#/Vol] 258 10*3/uL Normal 140-440 [facility] Comment on above: Performed By: #### L [id number] ####Windows Infrastructure Engineer: NED PAK ([id number])[facility])[address] [place] [address] RBC (Bld) [#/Vol] 3.68 10*6/uL Low 3.8-5.20 [facility] Comment on above: Performed By: #### L [id number] ####Windows Infrastructure Engineer: NED PAK ([id number])[facility])[address] [place] [address] WBC (Bld) [#/Vol] 20.2 10*3/uL High 3.6-10.7 [facility] Comment on above: Performed By: #### L [id number] ####Windows Infrastructure Engineer: NED PAK ([id number])[facility])[address] [place] [address] CKon 01-23-2023 CK [Catalytic activity/Vol] 229 U/L High 30-170 [facility] Comment on above: Performed By: #### L AB62, [id number], LAB15, LUN257 ####Windows Infrastructure Engineer: NED PAK ([id number])[facility])[address] [place] [address] COMPLETE URINALYSISon 2022 BACTERIA (#/HPF) IN URINE Loaded Abnormal Negative [facility] Comment on above: Performed By: #### L AB347 ####Windows Infrastructure Engineer: NED PAK ([id number])[facility] ([facility])[address] [place] [address] BILIRUBIN, TOTAL PRESENCE IN URINE Negative Normal Negative [facility] Comment on above: Performed By: #### L AB347 ####Windows Infrastructure Engineer: NED PAK ([id number])[facility] ([facility])[address] [place] [address] Clarity (U) Extra Turbid Abnormal Clear [facility] Comment on above: Performed By: #### L AB347 ####Windows Infrastructure Engineer: NED PAK ([id number])[facility])[address] [place] [address] Color (U) Yellow Normal Lt. Yellow [facility] Comment on above: Performed By: #### L AB347 ####Windows Infrastructure Engineer: NED PAK ([id number])[facility] ([facility])[address] [place] [address] GLUCOSE (MG/DL) IN URINE Normal Normal Normal (<70) [facility] Comment on above: Performed By: #### L [id number] ####Windows Infrastructure Engineer: NED PAK ([id number])[facility] ([facility])[address] [place] [address] HEMOGLOBIN PRESENCE IN URINE >1.0 Abnormal Negative [facility] Comment on above: Performed By: #### L [id number] ####Windows Infrastructure Engineer: NED PAK ([id number])[facility] ([facility])[address] [place] [address] HYALINE CASTS (#/LPF) IN URINE SEDIMENT BY MICROSCOPY 51-100 Abnormal Negative [facility] Comment on above: Performed By: #### L [id number] ####Windows Infrastructure Engineer: NED PAK ([id number])[facility] ([facility])[address] [place] [address] Ketones Ql (U) Negative Normal Negative [facility] Comment on above: Performed By: #### L [id number] ####Windows Infrastructure Engineer: NED PAK ([id number])[facility])[address] [place] [address] LEUKOCYTE ESTERASE PRESENCE IN URINE BY TEST STRIP 500 Danielito/uL Abnormal Negative [facility] Comment on above: Performed By: #### L [id number] ####Windows Infrastructure Engineer: NED PAK ([id number])[facility] ([facility])[address] [place] [address] [place] MUCUS (#/LPF) IN URINE SEDIMENT Few Normal Negative [facility] Comment on above: Performed By: #### L [id number] ####Windows Infrastructure Engineer: NED PAK ([id number])[facility])[address] [place] [address] NITRITE PRESENCE IN URINE Negative Normal Negative [facility] Comment on above: Performed By: #### L [id number] ####Windows Infrastructure Engineer: NED PAK ([id number])[facility] ([facility])[address] [place] [address] pH (U) 6.0 [pH] Normal 5.0-8.0 [facility] Comment on above: Performed By: #### L [id number] ####Windows Infrastructure Engineer: NED PAK ([id number])[facility])[address] [place] [address] Protein (U) [Mass/Vol] 100 mg/dL Abnormal Negative [facility] Comment on above: Performed By: #### L [id number] ####Windows Infrastructure Engineer: NED PAK ([id number])[facility] ([facility])[address] [place] [address] [place] RBC (#/HPF) IN URINE SEDIMENT >100 Abnormal 0-2 [facility] Comment on above: Performed By: #### L [id number] ####Windows Infrastructure Engineer: NED PAK ([id number])[facility])[address] [place] [address] Specific gravity (U) [Rel density] >1.030 High 1.005-1.03 0 [facility] Comment on above: Performed By: #### L [id number] ####Windows Infrastructure Engineer: NED PAK ([id number])[facility] ([facility])[address] [place] [address] [place] SQUAMOUS EPITHELIAL CELLS (#/HPF) IN URINE SEDIMENT 0-2 Normal 3-5 [facility] Comment on above: Performed By: #### L [id number] ####Windows Infrastructure Engineer: NED APK ([id number])[facility] [place] [address] [place] UROBILINOGEN (MG/DL) IN URINE Normal Normal Normal (0-1) [facility] Comment on above: Performed By: #### L [id number] ####Windows Infrastructure Engineer: NED PAK ([id number])[facility] [place] [address] [place] WBC (LEUKOCYTE) (#/HPF) IN URINE SEDIMENT >100 Abnormal 0-5 [facility] Comment on above: Performed By: #### L [id number] ####Windows Infrastructure Engineer: NED PAK ([id number])[facility] [place] [address] [place] WBC (LEUKOCYTE) CLUMPS (#/HPF) IN URINE SEDIMENT Few Abnormal Negative [facility] Comment on above: Performed By: #### L [id number] ####Windows Infrastructure Engineer: NED PAK ([id number])[facility] [place] [address] [place] AMORPHOUS CRYSTALS (#/HPF) IN URINE Moderate Abnormal Negative [facility] Comment on above: Performed By: #### L [id number] ####Windows Infrastructure Engineer: NED PAK ([id number])[facility] ([facility])[address] [place] [address] [place] BACTERIA (#/HPF) IN URINE Moderate Abnormal Negative [facility] Comment on above: Performed By: #### L [id number] ####Windows Infrastructure Engineer: NED PAK ([id number])[facility] ([facility])[address] [place] [address] BILIRUBIN, TOTAL PRESENCE IN URINE Negative Normal Negative [facility] Comment on above: Performed By: #### L [id number] ####Windows Infrastructure Engineer: NED PAK ([id number])[facility])[address] [place] [address] Clarity (U) Cloudy Abnormal Clear [facility] Comment on above: Performed By: #### L [id number] ####Windows Infrastructure Engineer: NED PAK ([id number])[facility])[address] [place] [address] Color (U) Yellow Normal Lt. Yellow [facility] Comment on above: Performed By: #### L [id number] ####Windows Infrastructure Engineer: NED PAK ([id number])[facility])[address] [place] [address] GLUCOSE (MG/DL) IN URINE Normal Normal Normal (<70) [facility] Comment on above: Performed By: #### L [id number] ####Windows Infrastructure Engineer: NED PAK ([id number])[facility] ([facility])[address] [place] [address] GRANULAR CASTS (#/LPF) IN URINE 6-10 Abnormal Negative [facility] Comment on above: Performed By: #### L [id number] ####Windows Infrastructure Engineer: NED PAK ([id number])[facility])[address] [place] [address] HEMOGLOBIN PRESENCE IN URINE 0.06 mg/dL Abnormal Negative [facility] Comment on above: Performed By: #### L [id number] ####Windows Infrastructure Engineer: NED PAK ([id number])[facility] ([facility])[address] [place] [address] HYALINE CASTS (#/LPF) IN URINE SEDIMENT BY MICROSCOPY 3-5 Abnormal Negative [facility] Comment on above: Performed By: #### L [id number] ####Windows Infrastructure Engineer: NED PAK ([id number])[facility] ([facility])[address] [place] [address] Ketones Ql (U) Negative Normal Negative [facility] Comment on above: Performed By: #### L [id number] ####Windows Infrastructure Engineer: NED PAK ([id number])[facility])[address] [place] [address] LEUKOCYTE ESTERASE PRESENCE IN URINE BY TEST STRIP 250 Danielito/uL Abnormal Negative [facility] Comment on above: Performed By: #### L [id number] ####Windows Infrastructure Engineer: NED PAK ([id number])[facility] ([facility])[address] [place] [address] MUCUS (#/LPF) IN URINE SEDIMENT Few Normal Negative [facility] Comment on above: Performed By: #### L [id number] ####Windows Infrastructure Engineer: NED PAK ([id number])[facility] ([facility])[address] [place] [address] NITRITE PRESENCE IN URINE Positive Abnormal Negative [facility] Comment on above: Performed By: #### L [id number] ####Windows Infrastructure Engineer: NED PAK ([id number])[facility] ([facility])[address] [place] [address] pH (U) 6.0 [pH] Normal 5.0-8.0 [facility] Comment on above: Performed By: #### L [id number] ####Windows Infrastructure Engineer: NED PAK ([id number])[facility] ([facility])[address] [place] [address] Protein (U) [Mass/Vol] 70 mg/dL Abnormal Negative [facility] Comment on above: Performed By: #### L [id number] ####Windows Infrastructure Engineer: NED PAK ([id number])[facility] ([facility])[address] [place] [address] RBC (#/HPF) IN URINE SEDIMENT 3-5 Abnormal 0-2 [facility] Comment on above: Performed By: #### L [id number] ####Windows Infrastructure Engineer: NED PAK ([id number])[facility] ([facility])[address] [place] [address] Specific gravity (U) [Rel density] 1.017 Normal 1.005-1.03 0 [facility] Comment on above: Performed By: #### L [id number] ####Windows Infrastructure Engineer: NED PAK ([id number])[facility] ([facility])[address] [place] [address] SQUAMOUS EPITHELIAL CELLS (#/HPF) IN URINE SEDIMENT 0-2 Normal 3-5 [facility] Comment on above: Performed By: #### L [id number] ####Windows Infrastructure Engineer: NED PAK ([id number])[facility] ([facility])[address] [place] [address] UROBILINOGEN (MG/DL) IN URINE Normal Normal Normal (0-1) [facility] Comment on above: Performed By: #### L [id number] ####Windows Infrastructure Engineer: NED PAK ([id number])[facility] ([facility])[address] [place] [address] WBC (LEUKOCYTE) (#/HPF) IN URINE SEDIMENT 26-50 Abnormal 0-5 [facility] Comment on above: Performed By: #### L [id number] ####Windows Infrastructure Engineer: NED PAK ([id number])[facility])[address] [place] [address] COMPREHENSIVE METABOLIC PANE [place] 01-23-2023 Albumin [Mass/Vol] 3.4 g/dL Low 3.5-5.0 [facility] Comment on above: Performed By: #### Tameka DUNNE, [id number] ####Windows Infrastructure Engineer: NED PAK ([id number])[facility] ([facility])[address] [place] [address] [place] ALP [Catalytic activity/Vol] 57 U/L Normal 38-126 [facility] Comment on above: Performed By: #### Tameka AB17, [id number] ####Windows Infrastructure Engineer: NED PAK ([id number])[facility])[address] [place] [address] [place] ALT [Catalytic activity/Vol] 19 U/L Normal 0-34 [facility] Comment on above: Performed By: #### Tameka AB17, [id number] ####Windows Infrastructure Engineer: NED PAK ([id number])[facility] ([facility])[address] [place] [address] Anion gap [Moles/Vol] 16 mmol/L High 3-13 [facility] Comment on above: Performed By: #### Tameka HEREDIA17, [id number] ####Windows Infrastructure Engineer: NDE PAK ([id number])[facility] ([facility])[address] [place] [address] AST [Catalytic activity/Vol] 40 U/L Normal 15-46 [facility] Comment on above: Performed By: #### Tameka DUNNE, [id number] ####Windows Infrastructure Engineer: NED PAK ([id number])[facility] ([facility])[address] [place] [address] Bilirubin [Mass/Vol] 0.7 mg/dL Normal 0.2-1.3 [facility] Comment on above: Performed By: #### Tameka HEREDIA17, [id number] ####Windows Infrastructure Engineer: NED PAK ([id number])[facility] ([facility])[address] [place] [address] Calcium [Mass/Vol] 9.8 mg/dL Normal 8.4-10.4 [facility] Comment on above: Performed By: #### Taemka DUNNE, [id number] ####Windows Infrastructure Engineer: NED PAK ([id number])[facility] ([facility])[address] [place] [address] [place] Chloride [Moles/Vol] 107 mmol/L Normal 98-107 [facility] Comment on above: Performed By: #### Tameka AB17, [id number] ####Windows Infrastructure Engineer: NED PAK ([id number])[facility] ([facility])[address] [place] [address] CO2 [Moles/Vol] 16 mmol/L Low 22-30 [facility] Comment on above: Performed By: #### Tameka AB17, [id number] ####Windows Infrastructure Engineer: NED [id number])[facility])[address] [place] [address] Creatinine [Mass/Vol] 1.47 mg/dL High 0.52-1.04 [facility] Comment on above: Performed By: #### aTmeka HEREDIA17, [id number] ####Windows Infrastructure Engineer: NED PAK ([id number])[facility])[address] [place] [address] [place] GLOMERULAR FILTRATION RATE ML/MIN/1.73 SQ M.PREDICTED 36.4 mL/min/1.73m*2 Low >60.0 [facility] Comment on above: Result Comment: Calc ulation based on the Chronic Kidney Disease Epidemiology Collaboration (CKD-EPI) equation refit without adjustment for raceORDER COMMENTS:Slightly Hemolyzed. Interpret ALKALINE PHOSPHATASE, AST, and POTASSIUM with caution. Performed By: #### Tameka HEREDIA17, [id number] ####Windows Infrastructure Engineer: NED PAK ([id number])[facility])[address] [place] [address] Glucose [Mass/Vol] 123 mg/dL High 70-100 [facility] Comment on above: Performed By: #### Tameka DUNNE, [id number] ####Windows Infrastructure Engineer: NED PAK ([id number])[facility])[address] [place] [address] [place] Potassium [Moles/Vol] 4.3 mmol/L Normal 3.5-5.1 [facility] Comment on above: Performed By: #### Tameka HEREDIA17, [id number] ####Windows Infrastructure Engineer: NED PAK ([id number])[facility])[address] [place] [address] [place] Protein [Mass/Vol] 6.9 g/dL Normal 6.3-8.2 [facility] Comment on above: Performed By: #### L AB17, [id number] ####Windows Infrastructure Engineer: NED PAK ([id number])[facility])[address] [place] [address] [place] Sodium [Moles/Vol] 139 mmol/L Normal 135-145 [facility] Comment on above: Performed By: #### L 17, [id number] ####Windows Infrastructure Engineer: NED PAK ([id number])[facility])[address] [place] [address] Urea nitrogen [Mass/Vol] 34 mg/dL High 7-17 [facility] Comment on above: Performed By: #### L 17, [id number] ####Windows Infrastructure Engineer: NED PAK ([id number])[facility])[address] [place] [address] CT CERVICAL SPINE WO IV CONT RASTon 01-23-2023 CT CERVICAL SPINE WO IV CONTRAST Normal [facility] CT CHEST ABDOMEN PELVIS W CO NTRASTon 01-23-2023 CT CHEST ABDOMEN PELVIS W CONTRAST Normal [facility] CT HEAD WO IV CONTRASTon CT HEAD WO IV CONTRAST Normal [facility] Consulton 01-23-2023 Consult Normal [facility] Consult Normal [facility] FREE T4on 01-23-2023 Free T4 [Mass/Vol] 1.66 ng/dL Normal 0.78-2.19 [facility] Comment on above: Performed By: #### L [id number], [id number] ####Windows Infrastructure Engineer: NED PAK ([id number])[address] IDNon 01-23-2023 IDN Normal [facility] LACTIC ACID WITH REFLEXon Lactate [Moles/Vol] 4.1 mmol/L Critically high 0.7-2.0 [facility] Comment on above: Performed By: #### L [id number] ####Windows Infrastructure Engineer: NED PAK ([id number])[facility])[address] [place] [address] Lactate [Moles/Vol] 8.8 mmol/L Critically high 0.7-2.0 [facility] Comment on above: Performed By: #### L [id number] ####Windows Infrastructure Engineer: NED [id number])[facility] [place] [address] Lactate [Moles/Vol] 2.2 mmol/L High 0.7-2.0 [facility] Comment on above: Performed By: #### L [id number] ####Windows Infrastructure Engineer: NED PAK ([id number])[facility] ([facility])[address] [place] [address] Lactate [Moles/Vol] 1.4 mmol/L Normal 0.7-2.0 [facility] Comment on above: Performed By: #### L [id number] ####Windows Infrastructure Engineer: NED PAK ([id number])[facility])[address] [place] [address] Nursing Noteon 01-23-2023 Nursing Note Normal [facility] PROCALCITONIN TESTon 023 PROCALCITONIN 7.04 ng/mL High 0.00-0.09 [facility] Comment on above: Result Comment: ORDE R COMMENTS:PCT <0.50 = Low risk of severe sepsis and/or septic shock.PCT >2.00 = High risk of severe sepsis and/or septic shock. Performed By: #### L [id number] ####Windows Infrastructure Engineer: NED PAK ([id number])[facility] ([facility])[address] [place] [address] Progress Noteon 01-23-2023 Progress Note PHYSICAL THERAPY [facility] Name/MRN: Zoila Webster ([id number]) Date: 01/23/2023 Pt transferred from to T2 ICU. Pt will require a reassessment. Will re-attempt as able. Buck Boothe, PT Normal [facility] Progress Note Normal [facility] Progress Note Pt temp 103.5, tachy cardic and tachypnea, minimally responsive, Michael Killian notified and transfer orders placed for ICU, pt made ready to transfer and RN called report to t2 Normal [facility] Progress Note Normal [facility] STREP PNEUMONIAE ANTIBODY SE ROTYPESon 01-23-2023 PNEUMO SEROTYPE INTERPRETATION See Note Normal [facility] Comment on above: Result Comment: INTE RPRETIVE INFORMATION: Streptococcus pneumoniae Antibodies, IgGA pre- and postvaccination comparison is required to adequatelyassess the humoral immune response to the pure polysaccharidePneumovax 23 (PNX) and/or the protein conjugated Prevnar 7 (P7),Prevnar 13 (P13), Prevnar 20 (P20), and Vaxneuvance (V15)Streptococcus pneumoniae vaccines. Prevaccination samples shouldbe collected prior to vaccine administration. Postvaccinationsamples should be obtained at least 4 weeks after immunization.Testing of postvaccination samples alone will provide only generalimmune status of the individual to various pneumococcal serotypes.In the case of pure polysaccharide vaccine, indication of immunesystem competence is further delineated as an adequate response toat least 50 percent of the serotypes in the vaccine challenge forthose 2-5 years of age and to at least 70 percent of the serotypesin the vaccine challenge for those 6-65 years of age. Individualimmune response may vary based on age, past exposure,immunocompetence, and pneumococcal serotype.Responder Status Antibody Ratio Nonresponder ........... Less than twofold increase and postvaccination concentration less than 1.3 ug/mL Good responder ......... At least a twofold increase and/or a postvaccination concentration greater than or equal to 1.3 ug/mLA response to 50-70 percent or more of the serotypes in thevaccine challenge is considered a normal humoral response.(Kassie,2014) Antibody concentration greater than 1.0-1.3 ug/mL isgenerally considered long-term protection.(Kassie, 2015)References:1. Kassie BROWN, Edin REAGAN, William X, et al. Multilaboratoryassessment of threshold versus fold-change algorithms forminimizing analytical variability in multiplexed pneumococcal IgGmeasurements. Clin Vaccine Immunol. 2014;21(7):982-988.2. Kassie BRWON, Richie OLESN. Use and clinical interpretation ofpneumococcal antibody measurements in the evaluation of humoralimmune function. Clin Vaccine Immunol. 2015;22(2):148-152.This test was developed and its performance characteristicsdetermined by [employer]. It has not been cleared orapproved by the U.S. Food and Drug Administration. This test wasperformed in a CLIA-certified laboratory and is intended forclinical purposes.Performed By: [facility] [address] [place] [address] Director: Ester Ramsey MD, PhDCLIA Number: [id number] Performed By: #### L [id number] ####[facility] ([facility])[address] PNEUMO TYPE 1 IGG 0.31 ug/mL Normal [facility] Comment on above: Performed By: #### L [id number] ####[facility] ([facility])[address] PNEUMO TYPE 12F IGG 0.18 ug/mL Normal [facility] Comment on above: Performed By: #### L [id number] ####[facility] ([facility])[address] PNEUMO TYPE 14 IGG 0.10 ug/mL Normal [facility] Comment on above: Performed By: #### L [id number] ####[facility] ([facility])[address] PNEUMO TYPE 18C IGG <0.05 Normal [facility] Comment on above: Performed By: #### L [id number] ####[facility] ([facility])[address] PNEUMO TYPE 19F IGG 0.19 ug/mL Normal [facility] Comment on above: Performed By: #### L [id number] ####[facility] ([facility])[address] PNEUMO TYPE 23F IGG 0.19 ug/mL Normal [facility] Comment on above: Performed By: #### L [id number] ####[facility] ([facility])[address] PNEUMO TYPE 3 IGG 0.61 ug/mL Normal [facility] Comment on above: Performed By: #### L [id number] ####[facility] ([facility])[address] PNEUMO TYPE 4 IGG 0.13 ug/mL Normal [facility] Comment on above: Performed By: #### L [id number] ####[facility] ([facility])[address] PNEUMO TYPE 5 IGG 0.96 ug/mL Normal [facility] Comment on above: Performed By: #### L [id number] ####[facility] ([facility])[address] PNEUMO TYPE 6B IGG 0.13 ug/mL Normal [facility] Comment on above: Performed By: #### L [id number] ####[facility] ([facility])[address] PNEUMO TYPE 7F IGG 0.36 ug/mL Normal [facility] Comment on above: Performed By: #### L [id number] ####[facility] ([facility])[address] PNEUMO TYPE 8 IGG 0.07 ug/mL Normal [facility] Comment on above: Performed By: #### L [id number] ####[facility] ([facility])[address] PNEUMO TYPE 9N IGG 0.47 ug/mL Normal [facility] Comment on above: Performed By: #### L [id number] ####[facility] ([facility])[address] PNEUMO TYPE 9V IGG 0.08 ug/mL Normal [facility] Comment on above: Performed By: #### L [id number] ####[facility] ([facility])[address] [place] [address] [place] THYROID STIMULATING HORMONEo n 01-23-2023 THYROID STIMULATING HORMONE 0.503 uIU/mL Normal 0.465-4.68 0 [facility] Comment on above: Performed By: #### L AB62, [id number], [id number], [id number] ####[employer] Infrastructure Engineer: NED PAK ([id number])[facility])[address] [place] [address] [place] TROPONIN Ion 01-23-2023 Troponin I.cardiac [Mass/Vol] 0.067 ng/mL High <0.034 [facility] [employer] [facility] Comment on above: Result Comment: ORDE R COMMENTS:Patients with high levels of Biotin oral intake (ie >5 mg/day) may have falsely decreased Troponin levels. Performed By: #### L AB15, [id number] ####[employer] Infrastructure Engineer: NED PAK ([id number])[facility])[address] [place] [address] [place] Troponin I.cardiac [Mass/Vol] 0.054 ng/mL High <0.034 [facility] [employer] [facility] Comment on above: Result Comment: ORDE R COMMENTS:Patients with high levels of Biotin oral intake (ie >5 mg/day) may have falsely decreased Troponin levels. Performed By: #### L [id number] ####Windows Infrastructure Engineer: END PAK ([id number])[facility])[address] [place] [address] [place] Troponin I.cardiac [Mass/Vol] 0.086 ng/mL High <0.034 [facility] [employer] [facility] Comment on above: Result Comment: ORDE R COMMENTS:Patients with high levels of Biotin oral intake (ie >5 mg/day) may have falsely decreased Troponin levels. Performed By: #### L AB62, [id number], LAB15, [id number] ####[employer] Infrastructure Engineer: NED PAK ([id number])[facility])[address] [place] [address] [place] TROPONIN, WITH SERIAL REFLEX on 01-23-2023 Troponin I.cardiac [Mass/Vol] 0.095 ng/mL High <0.034 [facility] [employer] [facility] Comment on above: Result Comment: ORDE R COMMENTS:Patients with high levels of Biotin oral intake (ie >5 mg/day) may have falsely decreased Troponin levels. Performed By: #### L AB17, [id number] ####Windows Infrastructure Engineer: NED PAK ([id number])[facility] ([facility])[address] [place] [address] Performed By: #### L AB127, [id number] ####Windows Infrastructure Engineer: NED PAK ([id number])[facility])[address] [place] [address] Troponin I.cardiac [Mass/Vol] 0.064 ng/mL High <0.034 [facility] Comment on above: Result Comment: SANDRA R COMMENTS:Patients with high levels of Biotin oral intake (ie >5 mg/day) may have falsely decreased Troponin levels. Performed By: #### L AB15, [id number] ####Windows Infrastructure Engineer: NED PAK ([id number])[facility])[address] [place] [address] URINE CULTUREon 01-23-2023 Bacteria identified Cx Nom (U) Normal [facility] Comment on above: Performed By: #### L AB239 ####Windows Infrastructure Engineer: NED PAK ([id number])[facility])[address] [place] [address] XR CHEST 1 VIEWon 01-23-2023 XR CHEST 1 VIEW [facility] CARECOORDon 01-22-2023 CARECOORD Normal [facility] Progress Noteon 01-22-2023 Progress Note Normal [facility] Progress Note Normal [facility] Progress Note Normal [facility] CARECOORDon 01-21-2023 CARECOORD Normal [facility] IDNon 01-21-2023 IDN Normal [facility] Progress Noteon 01-21-2023 Progress Note Normal [facility] Progress Note Normal [facility] Progress Note Normal [facility] SARS-COV-2 ANTIGENon 023 SARS-COV-2 ANTIGEN Normal [facility] Comment on above: Performed By: #### L [id number] ####Windows Infrastructure Engineer: NED PAK ([id number])[facility] ([place] [id number] [facility] CARECOORDon 01-20-2023 CARECOORD Normal [facility] IDNon 01-20-2023 IDN Normal [facility] Progress Noteon 01-20-2023 Progress Note Normal [facility] CARECOORDon 01-19-2023 CARECOORD Normal [facility] IDNon 01-19-2023 IDN Normal [facility] Nursing Noteon 01-19-2023 Nursing Note Normal [facility] Progress Noteon 01-19-2023 Progress Note Normal [facility] CARECOORDon 01-18-2023 CARECOORD Normal [facility] IDNon 01-18-2023 IDN Normal [facility] Progress Noteon 01-18-2023 Progress Note Normal [facility] Progress Note Normal [facility] IDNon 01-17-2023 IDN Normal [facility] Nursing Noteon 01-17-2023 Nursing Note 01/17/23 @ 0640 Pt requested pain medication d/t c/o pain to posterior head. Pt was medicated with scheduled 0800 Tylenol dose early after refused 0000 Tylenol dose. Normal [facility] Progress Noteon 01-17-2023 Progress Note Normal [facility] Progress Note Normal [facility] IDNon 01-16-2023 IDN Normal [facility] Nursing Noteon 01-16-2023 Nursing Note Normal [facility] Nursing Note 01/16/23 @ 0110 Pt medicated with Haldol 2 mg IV x 1 for agitation and restlessness. Regional Telecommunications Specialist at bed. Normal [facility] Nursing Note Normal [facility] Progress Noteon 01-16-2023 Progress Note Normal [facility] CARECOORDon 01-15-2023 CARECOORD Normal [facility] EMERGENCY REPORTon EMERGENCY REPORT [facility] EM[facility] REPORT NAME ACCOUNT SEX AGE ADMIT DISCHARGE PT MED. RECORD# NUMBER DATE DATE TYPE ELEANOR [id number] F [id number] 12/08/22 12/08/22 3 ZOILA [id number] ROOM: ER DATE OF : 1945 DICTATING PHYSICIAN: Bipin Wild HISTORY OF PRESENT ILLNESS: The patient is a 77-year-old female with a laceration to the left pad nondominant of her left finger. She was using a garden tool and clipped the end of it. It happened prior to arrival. She cleaned with peroxide and water, and then took a look at it and decided it needed stitches, so she came to the emergency room. No other injuries. She has no diabetes. No history of chronic bleeding disorders. She states her last tetanus has been very remote however. She thinks it needs stitches. PHYSICAL EXAMINATION: GENERAL: On exam, she does have a laceration, which is transverse. It is 1.5 cm across the pad of the left third digit. It gaps, so I told her does need stitches, and we decided it needed closure. VITAL SIGNS: 98.3 temperature, 81 pulse, 148/82 blood pressure, and 98% saturation, and 18 respirations. She is very calm, very collective, and a very nice individual. DIAGNOSTIC DATA: There is no fracture. No dislocation. No bony abnormality that had been affected by this. I could not see any foreign body in the tissue. EMERGENCY DEPARTMENT COURSE AND TREATMENT: We sent her over for an x-ray of it. She is given a DT, and then the laceration we used 1% lidocaine without epinephrine, approximately 1 mL, and cleansed it in the field and the wound several times with Betasept to make sure there is no foreign body to the base. It was nice clean and bright. There is a little bit of venous oozing, which stopped with pressure. I put three 3-0 Vicryl stitches across the end, which made a nice closure. PLAN/DISPOSITION: I told her these stitches would fall out in about a week. If they do not, she is to see her family doctor to get them taken out or return here to the emergency room. Recheck if any signs of infection. Her family doctor is Melissa Mustafa. I told her to recheck with Dr. Mustafa in 3 days if there are any questions about her laceration. Return p.r.n. as necessary. The patient tolerated the procedure well. Dictated By: Bipin Wild DO 01/06/23 23:49 JOB #: [id number] Transcribed By: am 01/07/23 11:19 Page 1 of 2 ZOILA WEBSTER Emergency Room Report ZOILA WEBSTER : 1945 Electronically signed by: E-SIGN BIPINCHASTITY WILD DO 01/15/23 19:29 Page 2 of 2 ZOILA WEBSTER Emergency Room Report Normal [facility] IDNon 01-15-2023 IDN Normal [facility] Progress Noteon 01-15-2023 Progress Note Normal [facility] Progress Note Normal [facility] Progress Note Normal [facility] CARECOORDon 01-14-2023 CARECOORD Normal [facility] Progress Noteon 01-14-2023 Progress Note Normal [facility] Progress Note Normal [facility] Progress Note Normal [facility] Progress Note Normal [facility] CARECOORDon 01-13-2023 CARECOORD Normal [facility] ECG 12-LEADon 01-13-2023 ECG 12-LEAD IMPRESSION: Sinus rhythm Multiple ventricular premature complexes Left ventricular hypertrophy Electronically Signed On 01-13-2023 10:00:00 EDT by Gayathri Velez Normal [facility] Progress Noteon 01-13-2023 Progress Note Normal [facility] Progress Note Normal [facility] Progress Note Normal [facility] Progress Note Normal [facility] Progress Note Normal [facility] CARECOORDon 01-12-2023 CARECOORD Normal [facility] IDNon 01-12-2023 IDN The patient is Moder ately Stable - Low risk of patient condition declining or worsening The patient's goals for the shift include rest The clinical goals for the shift include remain HDS Normal [facility] Nursing Noteon 01-12-2023 Nursing Note Pt only consumed one cup of ice cream, refused all meds this shift , continued to refuse meals despite consistent attempts . Family intermittently at bedside throughout shift, remains with plate furnace operator at bedside. Will monitor. Normal [facility] Nursing Note Normal [facility] Progress Noteon 01-12-2023 Progress Note Normal [facility] Progress Note Normal [facility] Progress Note Regarding duarte cath eter. Message sent to urology of possibility of doing void trial while still inpatient. They stated that would be acceptable if we complete early tomorrow morning . Recommend active void trial to increase chance of success. Normal [facility] Progress Note Normal [facility] Progress Note Normal [facility] Progress Note Normal [facility] CARECOORDon 01-11-2023 CARECOORD Normal [facility] IDNon 01-11-2023 IDN The patient is Moder ately Stable - Low risk of patient condition declining or worsening The patient's goals for the shift include get some sleep The clinical goals for the shift include decrease/manage agitation Normal [facility] Progress Noteon 01-11-2023 Progress Note Normal [facility] Progress Note Normal [facility] Progress Note Normal [facility] Progress Note Normal [facility] AMMONIAon 01-10-2023 Ammonia (P) [Mass/Vol] ug/dL Low 9-30 [facility] Comment on above: Performed By: #### L AB47 ####Windows Infrastructure Engineer: NED PAK ([id number])[address] HEPATIC FUNCTION PANELon Albumin [Mass/Vol] 3.6 g/dL Normal 3.5-5.0 [facility] Comment on above: Performed By: #### L AB20 ####Windows Infrastructure Engineer: NED PAK ([id number])[address] ALP [Catalytic activity/Vol] 135 U/L High 38-126 [facility] Comment on above: Performed By: #### L AB20 ####Windows Infrastructure Engineer: NED PAK ([id number])[address] ALT [Catalytic activity/Vol] 18 U/L Normal 0-34 [facility] Comment on above: Performed By: #### L AB20 ####Windows Infrastructure Engineer: NED PAK ([id number])[address] [place] [address] [place] AST [Catalytic activity/Vol] 25 U/L Normal 15-46 [facility] Comment on above: Performed By: #### L AB20 ####Windows Infrastructure Engineer: NED PAK ([id number])[facility])[address] [place] [address] Bilirubin [Mass/Vol] 0.3 mg/dL Normal 0.2-1.3 [facility] Comment on above: Performed By: #### L AB20 ####Windows Infrastructure Engineer: NED PAK ([id number])[facility])[address] [place] [address] Bilirubin.indirect [Mass/Vol] 0.0 mg/dL Normal 0.0-0.3 [facility] Comment on above: Performed By: #### L AB20 ####Windows Infrastructure Engineer: NED PAK ([id number])[facility])[address] [place] [address] Protein [Mass/Vol] 7.1 g/dL Normal 6.3-8.2 [facility] Comment on above: Performed By: #### L AB20 ####Windows Infrastructure Engineer: NED PAK ([id number])[facility])[address] [place] [address] Progress Noteon 01-10-2023 Progress Note Normal [facility] Progress Noteon 01-09-2023 Progress Note Normal [facility] Progress Note Normal [facility] BILIRUBIN, DIRECTon 01-09-20 23 Bilirubin.indirect [Mass/Vol] 0.0 mg/dL Normal 0.0-0.3 [facility] Comment on above: Performed By: #### L AB52, LAB17 ####Windows Infrastructure Engineer: NED PAK ([id number])[facility])[address] [place] [address] CARECOORDon 01-08-2023 CARECOORD Normal [facility] CBC (HEMOGRAM)on 01-08-2023 Erythrocyte distribution width (RBC) [Ratio] 14.6 % High 11.5-14.5 [facility] Comment on above: Performed By: #### L AB294 ####Windows Infrastructure Engineer: NED PAK ([id number])[facility])[address] [place] [address] ERYTHROCYTE MEAN CORPUSCULAR HEMOGLOBIN CONCENTRATION (G/DL) BY AUTOMATED 33.7 % Normal 32.0-36.0 [facility] Comment on above: Performed By: #### L AB294 ####Windows Infrastructure Engineer: NED PAK ([id number])[facility])[address] [place] [address] Hematocrit (Bld) [Volume fraction] 33.1 % Low 35.0-47.0 [facility] Comment on above: Performed By: #### L AB294 ####Windows Infrastructure Engineer: NED PAK ([id number])[address] Hemoglobin (Bld) [Mass/Vol] 11.1 g/dL Low 11.7-16.0 [facility] Comment on above: Performed By: #### L AB294 ####Windows Infrastructure Engineer: NED PAK ([id number])[facility])[address] [place] [address] MCH (RBC) [Entitic mass] 29.8 pg Normal 26.0-34.0 [facility] Comment on above: Performed By: #### L AB294 ####Windows Infrastructure Engineer: NED PAK ([id number])[facility])[address] [place] [address] MCV (RBC) [Entitic vol] 88.3 fL Normal 80.0-98.0 [facility] Comment on above: Performed By: #### L AB294 ####Windows Infrastructure Engineer: NED PAK ([id number])[facility])[address] [place] [address] Platelet mean volume (Bld) [Entitic vol] 6.3 fL Low 7.4-12.4 [facility] Comment on above: Performed By: #### L AB294 ####Windows Infrastructure Engineer: NED PAK ([id number])[facility] ([facility])[address] [place] [address] PLATELETS (10*3/UL) IN BLOOD AUTOMATED COUNT 462 10*3/uL High 140-440 [facility] Comment on above: Performed By: #### L AB294 ####Windows Infrastructure Engineer: NED PAK ([id number])[facility] ([facility])[address] [place] [address] RBC (Bld) [#/Vol] 3.74 10*6/uL Low 3.8-5.20 [facility] Comment on above: Performed By: #### L AB294 ####Windows Infrastructure Engineer: NED PAK ([id number])[facility] ([facility])[address] [place] [address] WBC (Bld) [#/Vol] 7.0 10*3/uL Normal 3.6-10.7 [facility] Comment on above: Performed By: #### L AB294 ####Windows Infrastructure Engineer: NED PAK ([id number])[facility] ([facility])[address] [place] [address] COMPREHENSIVE METABOLIC PANE Cholo 01-08-2023 Albumin [Mass/Vol] 3.9 g/dL Normal 3.5-5.0 [facility] Comment on above: Performed By: #### [place] LAB17 ####Windows Infrastructure Engineer: NED PAK ([id number])[facility] ([facility])[address] [place] [address] ALP [Catalytic activity/Vol] 139 U/L High 38-126 [facility] Comment on above: Performed By: #### [place], LAB17 ####Windows Infrastructure Engineer: NED PAK ([id number])[facility])[address] [place] [address] ALT [Catalytic activity/Vol] 20 U/L Normal 0-34 [facility] Comment on above: Performed By: #### L AB52, LAB17 ####Windows Infrastructure Engineer: NED PAK ([id number])[facility] [place] [address] Anion gap [Moles/Vol] 9 mmol/L Normal 3-13 [facility] Comment on above: Performed By: #### L ABSerafin, LAB17 ####Windows Infrastructure Engineer: NED PAK ([id number])[facility] [place] [address] AST [Catalytic activity/Vol] 31 U/L Normal 15-46 [facility] Comment on above: Performed By: #### [place], LAB17 ####Windows Infrastructure Engineer: NED PAK ([id number])[facility] ([facility])[address] [place] [address] Bilirubin [Mass/Vol] 0.3 mg/dL Normal 0.2-1.3 [facility] Comment on above: Performed By: #### [place], LAB17 ####Windows Infrastructure Engineer: NED PAK ([id number])[facility] [place] [address] Calcium [Mass/Vol] 10.8 mg/dL High 8.4-10.4 [facility] Comment on above: Performed By: #### L ABSerafin, LAB17 ####Windows Infrastructure Engineer: NED PAK ([id number])[facility] [place] [address] [place] Chloride [Moles/Vol] 105 mmol/L Normal 98-107 [facility] Comment on above: Performed By: #### L ABSerafin, LAB17 ####Windows Infrastructure Engineer: NED PAK ([id number])[facility] [place] [address] [place] CO2 [Moles/Vol] 24 mmol/L Normal 22-30 [facility] Comment on above: Performed By: #### L AB52, LAB17 ####Windows Infrastructure Engineer: NED PAK ([id number])[facility] ([facility])[address] [place] [address] [place] Creatinine [Mass/Vol] 0.66 mg/dL Normal 0.52-1.04 [facility] Comment on above: Performed By: #### [place], LAB17 ####Windows Infrastructure Engineer: NED PAK ([id number])[facility])[address] [place] [address] GLOMERULAR FILTRATION RATE ML/MIN/1.73 SQ M.PREDICTED 89.9 mL/min/1.73m*2 Normal >60.0 [facility] Comment on above: Result Comment: Calc ulation based on the Chronic Kidney Disease Epidemiology Collaboration (CKD-EPI) equation refit without adjustment for race Performed By: #### [place], LAB17 ####Windows Infrastructure Engineer: NED PAK ([id number])[facility])[address] [place] [address] Glucose [Mass/Vol] 122 mg/dL High 70-100 [facility] Comment on above: Performed By: #### [place], LAB17 ####Windows Infrastructure Engineer: NED PAK ([id number])[facility] ([facility])[address] [place] [address] Potassium [Moles/Vol] 4.0 mmol/L Normal 3.5-5.1 [facility] Comment on above: Performed By: #### [place], LAB17 ####Windows Infrastructure Engineer: NED PAK ([id number])[facility])[address] [place] [address] Protein [Mass/Vol] 7.9 g/dL Normal 6.3-8.2 [facility] Comment on above: Performed By: #### [place], LAB17 ####Windows Infrastructure Engineer: NED PAK ([id number])[facility])[address] [place] [address] [place] Sodium [Moles/Vol] 138 mmol/L Normal 135-145 [facility] Comment on above: Performed By: #### [place], LAB17 ####Windows Infrastructure Engineer: NED PAK ([id number])[facility])[address] [place] [address] Urea nitrogen [Mass/Vol] 18 mg/dL High 7-17 [facility] Comment on above: Performed By: #### L AB52, LAB17 ####Windows Infrastructure Engineer: NED PAK ([id number])[facility])[address] [place] [address] Consulton 01-08-2023 Consult Normal [facility] Nursing Noteon 01-08-2023 Nursing Note Patient remove Duarte catheter with legs as verbalized by plate furnace operator.Upon assessment same was out on the bed with bulb inflated.Patient was counseled and was informed that another catheter have to be placed, which she agreed. Normal [facility] Progress Noteon 01-08-2023 Progress Note Normal [facility] Progress Note Normal [facility] Progress Note Normal [facility] CARECOORDon 01-07-2023 CARECOORD Normal [facility] CBC (HEMOGRAM)on 01-07-2023 Erythrocyte distribution width (RBC) [Ratio] 14.6 % High 11.5-14.5 [facility] Comment on above: Performed By: #### L AB294 ####Windows Infrastructure Engineer: NED PAK ([id number])[facility])[address] [place] [address] ERYTHROCYTE MEAN CORPUSCULAR HEMOGLOBIN CONCENTRATION (G/DL) BY AUTOMATED 32.9 % Normal 32.0-36.0 [facility] Comment on above: Performed By: #### L AB294 ####Windows Infrastructure Engineer: NED PAK ([id number])[facility])[address] [place] [address] Hematocrit (Bld) [Volume fraction] 33.3 % Low 35.0-47.0 [facility] Comment on above: Performed By: #### L AB294 ####Windows Infrastructure Engineer: NED PAK ([id number])[facility])[address] [place] [address] Hemoglobin (Bld) [Mass/Vol] 11.0 g/dL Low 11.7-16.0 [facility] Comment on above: Performed By: #### L AB294 ####Windows Infrastructure Engineer: NED PAK ([id number])[facility])[address] [place] [address] MCH (RBC) [Entitic mass] 29.4 pg Normal 26.0-34.0 [facility] Comment on above: Performed By: #### L AB294 ####Windows Infrastructure Engineer: NED PAK ([id number])[facility])[address] [place] [address] MCV (RBC) [Entitic vol] 89.3 fL Normal 80.0-98.0 [facility] Comment on above: Performed By: #### L AB294 ####Windows Infrastructure Engineer: NED PAK ([id number])[facility])[address] [place] [address] Platelet mean volume (Bld) [Entitic vol] 6.5 fL Low 7.4-12.4 [facility] Comment on above: Performed By: #### L AB294 ####Windows Infrastructure Engineer: NED PAK ([id number])[facility])[address] [place] [address] PLATELETS (10*3/UL) IN BLOOD AUTOMATED COUNT 471 10*3/uL High 140-440 [facility] Comment on above: Performed By: #### L AB294 ####Windows Infrastructure Engineer: NED PAK ([id number])[facility])[address] [place] [address] RBC (Bld) [#/Vol] 3.73 10*6/uL Low 3.8-5.20 [facility] Comment on above: Performed By: #### L AB294 ####Windows Infrastructure Engineer: NED PAK ([id number])[facility])[address] [place] [address] WBC (Bld) [#/Vol] 6.4 10*3/uL Normal 3.6-10.7 [facility] Comment on above: Performed By: #### L AB294 ####Windows Infrastructure Engineer: NED PAK ([id number])[facility] ([facility])[address] [place] [address] COMPREHENSIVE METABOLIC PANE Cholo 01-07-2023 Albumin [Mass/Vol] 3.9 g/dL Normal 3.5-5.0 [facility] Comment on above: Performed By: #### L AB17 ####Windows Infrastructure Engineer: NED PAK ([id number])[facility] ([facility])[address] [place] [address] ALP [Catalytic activity/Vol] 138 U/L High 38-126 [facility] Comment on above: Performed By: #### L AB17 ####Windows Infrastructure Engineer: NED PAK ([id number])[facility] ([facility])[address] [place] [address] ALT [Catalytic activity/Vol] 19 U/L Normal 0-34 [facility] Comment on above: Performed By: #### L AB17 ####Windows Infrastructure Engineer: NED PAK ([id number])[facility] ([facility])[address] [place] [address] Anion gap [Moles/Vol] 8 mmol/L Normal 3-13 [facility] Comment on above: Performed By: #### L AB17 ####Windows Infrastructure Engineer: NED PAK ([id number])[facility] ([facility])[address] [place] [address] AST [Catalytic activity/Vol] 50 U/L High 15-46 [facility] [place] [facility] Comment on above: Performed By: #### L [id number] ####Windows Infrastructure Engineer: NED PAK ([id number])[facility] ([facility])[address] [place] [address] Bilirubin [Mass/Vol] 0.6 mg/dL Normal 0.2-1.3 [facility] Comment on above: Performed By: #### L [id number] ####Windows Infrastructure Engineer: NED PAK ([id number])[facility] ([facility])[address] [place] [address] [place] Calcium [Mass/Vol] 10.7 mg/dL High 8.4-10.4 [facility] Comment on above: Performed By: #### L [id number] ####Windows Infrastructure Engineer: NED PAK ([id number])[facility] ([facility])[address] [place] [address] Chloride [Moles/Vol] 105 mmol/L Normal 98-107 [facility] Comment on above: Performed By: #### L [id number] ####Windows Infrastructure Engineer: NED PAK ([id number])[facility] [place] [address] CO2 [Moles/Vol] 24 mmol/L Normal 22-30 [facility] Comment on above: Performed By: #### L [id number] ####Windows Infrastructure Engineer: NED PAK ([id number])[facility] ([facility])[address] [place] [address] Creatinine [Mass/Vol] 0.55 mg/dL Normal 0.52-1.04 [facility] Comment on above: Performed By: #### L [id number] ####Windows Infrastructure Engineer: NED PAK ([id number])[facility] ([facility])[address] [place] [address] GLOMERULAR FILTRATION RATE ML/MIN/1.73 SQ M.PREDICTED >90.0 Normal >60.0 [facility] Comment on above: Result Comment: Calc ulation based on the Chronic Kidney Disease Epidemiology Collaboration (CKD-EPI) equation refit without adjustment for raceORDER COMMENTS:Slightly Hemolyzed. Interpret K+, ALKP, AST with caution. Performed By: #### L [id number] ####Windows Infrastructure Engineer: NED PAK ([id number])[facility] ([facility])[address] [place] [address] [place] Glucose [Mass/Vol] 116 mg/dL High 70-100 [facility] Comment on above: Performed By: #### L [id number] ####Windows Infrastructure Engineer: NED PAK ([id number])[facility] ([facility])[address] [place] [address] [place] Potassium [Moles/Vol] 4.3 mmol/L Normal 3.5-5.1 [facility] Comment on above: Performed By: #### L AB17 ####Windows Infrastructure Engineer: NED PAK ([id number])[facility])[address] [place] [address] Protein [Mass/Vol] 8.0 g/dL Normal 6.3-8.2 [facility] Comment on above: Performed By: #### L [id number] ####Windows Infrastructure Engineer: NED PAK ([id number])[facility] ([facility])[address] [place] [address] Sodium [Moles/Vol] 137 mmol/L Normal 135-145 [facility] Comment on above: Performed By: #### L [id number] ####Windows Infrastructure Engineer: NED PAK ([id number])[facility] ([facility])[address] [place] [address] Urea nitrogen [Mass/Vol] 14 mg/dL Normal 7-17 [facility] Comment on above: Performed By: #### L [id number] ####Windows Infrastructure Engineer: NED PAK ([id number])[facility])[address] [place] [address] Nursing Noteon 01-07-2023 Nursing Note Normal [facility] Nursing Note Normal [facility] Nursing Note Normal [facility] Nursing Note Normal [facility] Nursing Note Patient very uncoope rative during morning assessment and medication administration. Patient spit pill (lyrica) out at this RN. Patient also attempted to grab RN. Attempted to re-orient patient. Normal [facility] Nursing Note Patient took senokot then decides to spit out same.Pt counseled.Care on going... Normal [facility] Progress Noteon 01-07-2023 Progress Note [facility] Progress Note Normal [facility] Progress [facility] Normal [facility] Progress Note Normal [facility] CARECOORDon 01-06-2023 CARECOORD Normal [facility] Progress Noteon 01-06-2023 Progress Note Normal [facility] Progress Note Normal [facility] Progress Note Normal [facility] Progress Note Normal [facility] US PELVISon 01-06-2023 US PELVIS Normal [facility] CARECOORDon 01-05-2023 CARECOORD Normal [facility] Nursing Noteon 01-05-2023 Nursing Note Pt family expressed concerned over c-collar/ They would like to speak with ortho. Dr. Fallon notified. Normal [facility] Progress Noteon 01-05-2023 Progress Note Normal [facility] Progress Note PHYSICAL THERAPY [facility] Name/MRN: Zoila Webster ([id number]) Date: 01/05/2023 PT treatment attempted at 1315, pt OOR at this time for ultrasound. Will attempt treatment on later date. Hari Wagner SPT Normal [facility] Progress Note Normal [facility] Progress Note Normal [facility] Progress Note Normal [facility] US RETROPERITONEUM LIMITEDon 01-05-2023 US RETROPERITONEUM LIMITED Normal [facility] CARECOORDon 01-04-2023 CARECOORD Normal [facility] CARECOORD Normal [facility] Consulton 01-04-2023 Consult Normal [facility] Consult Normal [facility] ECG 12-LEADon 01-04-2023 ECG 12-LEAD IMPRESSION: Sinus rhythm Left ventricular hypertrophy Anterior Q waves, possibly due to LVH Borderline T abnormalities, inferior leads Electronically Signed On 01-04-2023 10:15:41 EDT by Vini Rodriguez [facility] IDNon 01-04-2023 IDN Normal [facility] IDN Normal [facility] Nursing Noteon 01-04-2023 Nursing Note Normal [facility] Nursing Note Patient was bladder scanned for 450 ml. Patient assisted to commode by plate furnace operator and myself. Patient voided a small amount. Post void residual was 264 Kathryn with trauma notified Normal [facility] Nursing Note Patients cam e to desk asking about options other than c collar. I explained that trauma will be reaching out to ortho to see if there are alternatives to c collar. Message sent to Kathryn with trauma Normal [facility] Progress Noteon 01-04-2023 Progress Note Normal [facility] Normal [facility] Progress Note Normal [facility] Progress Note Normal [facility] URINE CULTUREon 01-04-2023 Bacteria identified Cx Nom (U) Normal [facility] Comment on above: Performed By: #### L [id number] ####Windows Infrastructure Engineer: NED PAK ([id number])[facility])[address] [place] [address] [place] IDNon 01-03-2023 IDN Normal [facility] Nursing Noteon 01-03-2023 Nursing Note Pt c/o chest pain. B P 159/92, HR 107. Provider notified. Prn labetalol given and EKG ordered. Normal [facility] Nursing Note Pt Bladder Scan 750. Pt was able to void 200ml, still retaining 575mL. Provider messaged, one time straight cath ordered. Pt tolerated well, 550 output. Normal [facility] Progress Noteon 01-03-2023 Progress Note Normal [facility] CBC (HEMOGRAM)on 01-02-2023 Erythrocyte distribution width (RBC) [Ratio] 15.7 % High 11.5-14.5 [facility] Comment on above: Performed By: #### L [id number] ####Windows Infrastructure Engineer: NED PAK ([id number])[address] ERYTHROCYTE MEAN CORPUSCULAR HEMOGLOBIN CONCENTRATION (G/DL) BY AUTOMATED 33.1 % Normal 32.0-36.0 [facility] Comment on above: Performed By: #### L [id number] ####Windows Infrastructure Engineer: NED PAK ([id number])[address] Hematocrit (Bld) [Volume fraction] 33.0 % Low 35.0-47.0 [facility] Comment on above: Performed By: #### L [id number] ####Windows Infrastructure Engineer: NED PAK ([id number])[address] Hemoglobin (Bld) [Mass/Vol] 10.9 g/dL Low 11.7-16.0 [facility] Comment on above: Performed By: #### L [id number] ####Windows Infrastructure Engineer: NED PAK ([id number])[facility])[address] [place] [address] MCH (RBC) [Entitic mass] 29.8 pg Normal 26.0-34.0 [facility] Comment on above: Performed By: #### L [id number] ####Windows Infrastructure Engineer: NED PAK ([id number])[facility])[address] [place] [address] MCV (RBC) [Entitic vol] 90.1 fL Normal 80.0-98.0 [facility] Comment on above: Performed By: #### L [id number] ####Windows Infrastructure Engineer: NED PAK ([id number])[facility])[address] [place] [address] Platelet mean volume (Bld) [Entitic vol] 7.0 fL Low 7.4-12.4 [facility] Comment on above: Performed By: #### L [id number] ####Windows Infrastructure Engineer: NED PAK ([id number])[facility])[address] [place] [address] PLATELETS (10*3/UL) IN BLOOD AUTOMATED COUNT 533 10*3/uL High 140-440 [facility] Comment on above: Performed By: #### L [id number] ####Windows Infrastructure Engineer: NED PAK ([id number])[facility])[address] [place] [address] RBC (Bld) [#/Vol] 3.66 10*6/uL Low 3.8-5.20 [facility] Comment on above: Performed By: #### L [id number] ####Windows Infrastructure Engineer: NED PAK ([id number])[facility])[address] [place] [address] WBC (Bld) [#/Vol] 9.3 10*3/uL Normal 3.6-10.7 [facility] Comment on above: Performed By: #### L [id number] ####Windows Infrastructure Engineer: NED PAK ([id number])[address] LACOSAMIDEon 01-02-2023 LACOSAMIDE 8.5 ug/mL Normal 1.0-10.0 [facility] Comment on above: Result Comment: INTE RPRETIVE INFORMATION: Lacosamide, Serum or PlasmaTherapeutic Range: 1.0 - 10.0 ug/mLToxic: Greater than or equal to 20 ug/mLLacosamide is an anticonvulsant drug indicated for adjunctivetherapy for partial-onset seizures. The therapeutic range is basedon serum, predose (trough) draw collection at steady-stateconcentration. Adverse effects may include dizziness, fatigue,nausea, vomiting, blurred vision, and tremor.This test was developed and its performance characteristicsdetermined by [employer]. It has not been cleared orapproved by the [place] Food and Drug Administration. This test wasperformed in a CLIA-certified laboratory and is intended forclinical purposes.Performed By: [id number] [place], [place] [address] Director: Ester Ramsey MD, PhDCLIA Number: [id number] Performed By: #### L [id number] ####[facility] ([facility])[address] [place] [id number] [place] Progress Noteon 01-02-2023 Progress Note Normal [facility] CARECOORDon 01-01-2023 CARECOORD Normal [facility] IDNon 01-01-2023 IDN Normal [facility] IDN Normal [facility] Progress Noteon 01-01-2023 Progress Note Normal [facility] Progress Note Normal [facility] Progress Note Normal [facility] Progress Note Normal [facility] BASIC METABOLIC PANELon 12-20 Anion gap [Moles/Vol] 8 mmol/L Normal 06-01 [facility] Comment on above: Performed By: #### L AB15 ####Windows Infrastructure Engineer: NED PAK ([id number])[facility] ([facility])[address] [place] [address] Calcium [Mass/Vol] 10.3 mg/dL Normal 8.4-10.4 [facility] Comment on above: Performed By: #### L AB15 ####Windows Infrastructure Engineer: NED PAK ([id number])[facility] ([facility])[address] [place] [address] [place] Chloride [Moles/Vol] 108 mmol/L High 98-107 [facility] Comment on above: Performed By: #### L AB15 ####Windows Infrastructure Engineer: NED PAK ([id number])[facility] ([facility])[address] [place] [address] CO2 [Moles/Vol] 22 mmol/L Normal 22-30 [facility] Comment on above: Performed By: #### L AB15 ####Windows Infrastructure Engineer: NED PAK ([id number])[facility] [place] [address] Creatinine [Mass/Vol] 0.65 mg/dL Normal 0.52-1.04 [facility] Comment on above: Performed By: #### L AB15 ####Windows Infrastructure Engineer: NED PAK ([id number])[facility] ([facility])[address] [place] [address] GLOMERULAR FILTRATION RATE ML/MIN/1.73 SQ M.PREDICTED >90.0 Normal >60.0 [facility] Comment on above: Result Comment: Calc ulation based on the Chronic Kidney Disease Epidemiology Collaboration (CKD-EPI) equation refit without adjustment for race Performed By: #### L AB15 ####Windows Infrastructure Engineer: NED PAK ([id number])[facility] ([facility])[address] [place] [address] [place] Glucose [Mass/Vol] 126 mg/dL High 70-100 [facility] Comment on above: Performed By: #### L AB15 ####Windows Infrastructure Engineer: NED PAK ([id number])[facility] ([facility])[address] [place] [address] Potassium [Moles/Vol] 4.3 mmol/L Normal 3.5-5.1 [facility] Comment on above: Performed By: #### L AB15 ####Windows Infrastructure Engineer: NED PAK ([id number])[facility])[address] [place] [address] Sodium [Moles/Vol] 138 mmol/L Normal 135-145 [facility] Comment on above: Performed By: #### L AB15 ####Windows Infrastructure Engineer: NED PAK ([id number])[facility])[address] [place] [address] Urea nitrogen [Mass/Vol] 18 mg/dL High 7-17 [facility] Comment on above: Performed By: #### L AB15 ####Windows Infrastructure Engineer: NED PAK ([id number])[facility] ([facility])[address] [place] [address] CARECOORDon 12-31-2022 CARECOORD Normal [facility] CBC (HEMOGRAM)on 12-31-2022 Erythrocyte distribution width (RBC) [Ratio] 16.0 % High 11.5-14.5 [facility] Comment on above: Performed By: #### L [id number] ####Windows Infrastructure Engineer: NED PAK ([id number])[facility])[address] [place] [address] ERYTHROCYTE MEAN CORPUSCULAR HEMOGLOBIN CONCENTRATION (G/DL) BY AUTOMATED 33.1 % Normal 32.0-36.0 [facility] Comment on above: Performed By: #### L [id number] ####Windows Infrastructure Engineer: NED PAK ([id number])[facility])[address] [place] [address] Hematocrit (Bld) [Volume fraction] 29.3 % Low 35.0-47.0 [facility] Comment on above: Performed By: #### L [id number] ####Windows Infrastructure Engineer: NED [id number])[facility])[address] [place] [address] Hemoglobin (Bld) [Mass/Vol] 9.7 g/dL Low 11.7-16.0 [facility] Comment on above: Performed By: #### L [id number] ####Windows Infrastructure Engineer: NED PAK ([id number])[facility])[address] [place] [address] MCH (RBC) [Entitic mass] 29.9 pg Normal 26.0-34.0 [facility] Comment on above: Performed By: #### L [id number] ####Windows Infrastructure Engineer: NED PAK ([id number])[address] MCV (RBC) [Entitic vol] 90.3 fL Normal 80.0-98.0 [facility] Comment on above: Performed By: #### L [id number] ####Windows Infrastructure Engineer: NED PAK ([id number])[facility])[address] [place] [address] Platelet mean volume (Bld) [Entitic vol] 6.7 fL Low 7.4-12.4 [facility] Comment on above: Performed By: #### L [id number] ####Windows Infrastructure Engineer: NED PAK ([id number])[facility])[address] [place] [address] PLATELETS (10*3/UL) IN BLOOD AUTOMATED COUNT 693 10*3/uL High 140-440 [facility] Comment on above: Performed By: #### L [id number] ####Windows Infrastructure Engineer: NED PAK ([id number])[facility])[address] [place] [address] RBC (Bld) [#/Vol] 3.24 10*6/uL Low 3.8-5.20 [facility] Comment on above: Performed By: #### L [id number] ####Windows Infrastructure Engineer: NED PAK ([id number])[facility])[address] [place] [address] WBC (Bld) [#/Vol] 15.6 10*3/uL High 3.6-10.7 [facility] Comment on above: Performed By: #### L [id number] ####Windows Infrastructure Engineer: NED PAK ([id number])[facility] ([facility])[address] [place] [address] IDNon 12-31-2022 IDN Normal [facility] Progress Noteon 12-31-2022 Progress Note Normal [facility] Progress Note Normal [facility] Progress Note Normal [facility] Progress Note Normal [facility] ECG 12-LEADon 12-30-2022 ECG 12-LEAD IMPRESSION: Sinus rhythm Multiple ventricular premature complexes LVH with secondary repolarization abnormality Electronically Signed On 12-30-2022 13:50:09 EDT by Terra Cat Normal [facility] IDNon 12-30-2022 IDN Normal [facility] Nursing Noteon 12-30-2022 Nursing Note David came to see p atient, fitted with smaller C collar for patient comfort. Pt is now eating and seems to be ok with new collar Normal [facility] Progress Noteon 12-30-2022 Progress Note Normal [facility] Progress Note Normal [facility] Progress Note Normal [facility] Progress Note Normal [facility] CARECOORDon 12-29-2022 CARECOORD Normal [facility] CBC (HEMOGRAM)on 12-29-2022 Erythrocyte distribution width (RBC) [Ratio] 15.7 % High 11.5-14.5 [facility] Comment on above: Performed By: #### L [id number] ####Windows Infrastructure Engineer: NED PAK ([id number])[facility] ([facility])[address] [place] [address] ERYTHROCYTE MEAN CORPUSCULAR HEMOGLOBIN CONCENTRATION (G/DL) BY AUTOMATED 33.3 % Normal 32.0-36.0 [facility] Comment on above: Performed By: #### L [id number] ####Windows Infrastructure Engineer: NED PAK ([id number])[facility])[address] [place] [address] Hematocrit (Bld) [Volume fraction] 27.7 % Low 35.0-47.0 [facility] Comment on above: Performed By: #### L [id number] ####Windows Infrastructure Engineer: NED PAK ([id number])[facility])[address] [place] [address] Hemoglobin (Bld) [Mass/Vol] 9.2 g/dL Low 11.7-16.0 [facility] Comment on above: Performed By: #### L [id number] ####Windows Infrastructure Engineer: NED PAK ([id number])[facility])[address] [place] [address] MCH (RBC) [Entitic mass] 30.1 pg Normal 26.0-34.0 [facility] Comment on above: Performed By: #### L [id number] ####Windows Infrastructure Engineer: NED PAK ([id number])[facility] ([facility])[address] [place] [address] MCV (RBC) [Entitic vol] 90.5 fL Normal 80.0-98.0 [facility] Comment on above: Performed By: #### L [id number] ####Windows Infrastructure Engineer: NED PAK ([id number])[facility])[address] [place] [address] Platelet mean volume (Bld) [Entitic vol] 6.8 fL Low 7.4-12.4 [facility] Comment on above: Performed By: #### L [id number] ####Windows Infrastructure Engineer: NED PAK ([id number])[facility])[address] [place] [address] PLATELETS (10*3/UL) IN BLOOD AUTOMATED COUNT 606 10*3/uL High 140-440 [facility] Comment on above: Performed By: #### L [id number] ####Windows Infrastructure Engineer: NED PAK ([id number])[facility])[address] [place] [address] RBC (Bld) [#/Vol] 3.07 10*6/uL Low 3.8-5.20 [facility] Comment on above: Performed By: #### L [id number] ####Windows Infrastructure Engineer: NED PAK ([id number])[facility])[address] [place] [address] WBC (Bld) [#/Vol] 16.9 10*3/uL High 3.6-10.7 [facility] Comment on above: Performed By: #### L [id number] ####Windows Infrastructure Engineer: NED PAK ([id number])[facility])[address] [place] [address] IDNon 12-29-2022 IDN Normal [facility] Nursing Noteon 12-29-2022 Nursing Note Normal [facility] PROCALCITONIN TESTon 023 PROCALCITONIN 0.07 ng/mL Normal 0.00-0.09 [facility] Comment on above: Result Comment: ORDE R COMMENTS:PCT <0.50 = Low risk of severe sepsis and/or septic shock.PCT >2.00 = High risk of severe sepsis and/or septic shock. Performed By: #### L [id number] ####[employer] Engineer: NED PAK ([id number])[facility])[address] [place] [address] Progress Noteon 12-29-2022 Progress Note Normal [facility] Progress Note Normal [facility] Progress Note Normal [facility] Progress Note Normal [facility] XR CHEST 1 VIEWon 12-29-2022 XR CHEST 1 VIEW Normal [facility] CARECOORDon 12-28-2022 CARECOORD Normal [facility] Nursing Noteon 12-28-2022 Nursing Note 12/27/22 @ 2325 New # 22g PIV inserted to L FA per this RN after non assigned nurse attempted x 3 unsuccessful attempts d/t veins blew. Pt tolerated good. Will start IV antibiotics per order at this time. Normal [facility] PROCALCITONIN TESTon 023 PROCALCITONIN 0.09 ng/mL Normal 0.00-0.09 [facility] Comment on above: Result Comment: ORDE R COMMENTS:PCT <0.50 = Low risk of severe sepsis and/or septic shock.PCT >2.00 = High risk of severe sepsis and/or septic shock. Performed By: #### L [id number] ####[employer] Engineer: NED PAK ([id number])[address] Progress Noteon 12-28-2022 Progress Note Normal [facility] [facility] Progress Note Vancomycin therapy h as been discontinued by Lynnette Phelan on 12/28. Thank you for the consult. Pharmacy signing off for vancomycin dosing. Casi Salazar, PharmD Date: 12/28/22 Time: 2:01 PM Normal [facility] Progress Note Normal [facility] Progress Note Normal [facility] Progress Note Normal [facility] VANCOMYCIN, RANDOMon 023 VANCOMYCIN 11.8 ug/mL Low 15.0-20.0 [facility] Comment on above: Order Comment: Pleas e draw random vancomycin level > 2 hours after the end of the vancomycin infusion. Thank you! Performed By: #### L [id number] ####Windows Infrastructure Engineer: NED PAK ([id number])[address] IDNon 12-27-2022 IDN Normal [facility] Nursing Noteon 12-27-2022 Nursing Note Normal [facility] Progress Noteon 12-27-2022 Progress Note Normal [facility] Progress Note Normal [facility] Progress Note Normal [facility] Progress Note Normal [facility] XR CHEST 1 VIEWon 12-27-2022 XR CHEST 1 VIEW Normal [facility] CARECOORDon 12-26-2022 CARECOORD Normal [facility] CBC WITH AUTO DIFFERENTIALon 12-26-2022 Erythrocyte distribution width (RBC) [Ratio] 14.5 % Normal 11.5-14.5 [facility] Comment on above: Performed By: #### L [id number], [id number] ####Windows Infrastructure Engineer: NED PAK ([id number])[address] ERYTHROCYTE MEAN CORPUSCULAR HEMOGLOBIN CONCENTRATION (G/DL) BY AUTOMATED 32.5 % Normal 32.0-36.0 [facility] Comment on above: Performed By: #### L [id number], [id number] ####Windows Infrastructure Engineer: NED PAK ([id number])[facility])[address] [place] [address] Hematocrit (Bld) [Volume fraction] 25.5 % Low 35.0-47.0 [facility] Comment on above: Performed By: #### L [id number], [id number] ####Windows Infrastructure Engineer: NED PAK ([id number])[address] Hemoglobin (Bld) [Mass/Vol] 8.3 g/dL Low 11.7-16.0 [facility] Comment on above: Performed By: #### Tameka CV0286, [id number] ####Windows Infrastructure Engineer: NED PAK ([id number])[facility])[address] [place] [address] MCH (RBC) [Entitic mass] 29.2 pg Normal 26.0-34.0 [facility] Comment on above: Performed By: #### L [id number], [id number] ####Windows Infrastructure Engineer: NED PAK ([id number])[facility])[address] [place] [address] MCV (RBC) [Entitic vol] 89.8 fL Normal 80.0-98.0 [facility] Comment on above: Performed By: #### L [id number], [id number] ####Windows Infrastructure Engineer: NED PAK ([id number])[address] NRBC (PER 100 WBCS) BY AUTOMATED COUNT 0.2 /100 WBCs Normal 0.0-2.0 [facility] Comment on above: Performed By: #### L [id number], [id number] ####Windows Infrastructure Engineer: NED PAK ([id number])[facility])[address] [place] [address] Platelet mean volume (Bld) [Entitic vol] 7.0 fL Low 7.4-12.4 [facility] Comment on above: Performed By: #### L [id number], [id number] ####Windows Infrastructure Engineer: NED PAK ([id number])[facility])[address] [place] [address] PLATELETS (10*3/UL) IN BLOOD AUTOMATED COUNT 499 10*3/uL High 140-440 [facility] Comment on above: Performed By: #### Tameka [id number], [id number] ####Windows Infrastructure Engineer: NED PAK ([id number])[facility])[address] [place] [address] RBC (Bld) [#/Vol] 2.84 10*6/uL Low 3.8-5.20 [facility] Comment on above: Performed By: #### Tameka [id number], [id number] ####Windows Infrastructure Engineer: NED PAK ([id number])[facility])[address] [place] [address] WBC (Bld) [#/Vol] 13.8 10*3/uL High 3.6-10.7 [facility] Comment on above: Performed By: #### L [id number], [id number] ####Windows Infrastructure Engineer: NED PAK ([id number])[facility])[address] [place] [address] [place] IDNon 12-26-2022 IDN Normal [facility] MANUAL DIFFERENTIALon 2022 BAND NEUTROPHILS (10*3/UL) BLOOD MANUAL COUNT 1.0 10*3/uL High <=0.0 [facility] Comment on above: Performed By: #### L [id number], [id number] ####Windows Infrastructure Engineer: NED PAK ([id number])[facility])[address] [place] [address] [place] BAND NEUTROPHILS TOTAL PER COUNTED LEUKOCYTES BY MANUAL COUNT 7 Normal [facility] Comment on above: Performed By: #### L [id number], [id number] ####Windows Infrastructure Engineer: NED PAK ([id number])[facility] ([facility])[address] [place] [address] CELLS COUNTED TOTAL (#) IN BLOOD 100 Normal [facility] Comment on above: Performed By: #### L [id number], [id number] ####Windows Infrastructure Engineer: NED PAK ([id number])[facility])[address] [place] [address] DIFFERENTIAL METHOD Manual differential performed Normal [facility] Comment on above: Performed By: #### L [id number], [id number] ####Windows Infrastructure Engineer: NED PAK ([id number])[facility])[address] [place] [address] EOSINOPHILS (10*3/UL) IN BLOOD BY MANUAL COUNT 0.3 10*3/uL Normal 0.0-0.5 [facility] Comment on above: Performed By: #### L [id number], [id number] ####Windows Infrastructure Engineer: NED PAK ([id number])[facility])[address] [place] [address] [place] EOSINOPHILS TOTAL PER COUNTED LEUKOCYTES BY MANUAL COUNT 2 High 0-1 [facility] Comment on above: Performed By: #### L [id number], [id number] ####Windows Infrastructure Engineer: NED PAK ([id number])[facility])[address] [place] [address] [place] EOSINOPHILS/100 LEUKOCYTES IN BLOOD BY MANUAL COUNT 2 % Normal 1-6 [facility] Comment on above: Performed By: #### L [id number], [id number] ####Windows Infrastructure Engineer: NED PAK ([id number])[facility] ([facility])[address] [place] [address] HYPERSEGMENTED NEUTROPHILS IN BLOOD BY LIGHT MICROSCOPY (PRESENT) Present Abnormal (none) [facility] Comment on above: Performed By: #### L [id number], [id number] ####Windows Infrastructure Engineer: NED PAK ([id number])[facility])[address] [place] [address] LEUKOCYTES (10*3/UL) NUCLEATED ERYTHROCYTE ADJUST 13.8 10*3/uL High 3.6-10.7 [facility] Comment on above: Performed By: #### L [id number], [id number] ####Windows Infrastructure Engineer: NED PAK ([id number])[facility])[address] [place] [address] LYMPHOCYTES (10*3/UL) IN BLOOD BY MANUAL COUNT 1.2 10*3/uL Normal 1.0-4.3 [facility] Comment on above: Performed By: #### L [id number], [id number] ####Windows Infrastructure Engineer: NED PAK ([id number])[facility])[address] [place] [address] LYMPHOCYTES TOTAL PER COUNTED LEUKOCYTES BY MANUAL COUNT 9 Normal [facility] Comment on above: Performed By: #### L OH5701, [id number] ####Windows Infrastructure Engineer: NED PAK ([id number])[facility])[address] [place] [address] LYMPHOCYTES VARIANT/100 LEUKOCYTES IN BLOOD 1 % High <=0 [facility] Comment on above: Performed By: #### L HB6843, [id number] ####Windows Infrastructure Engineer: NED PAK ([id number])[facility])[address] [place] [address] [place] LYMPHOCYTES/100 LEUKOCYTES IN BLOOD BY MANUAL COUNT 9 % Low 20-40 [facility] Comment on above: Performed By: #### L IN3554, [id number] ####Windows Infrastructure Engineer: NED PAK ([id number])[facility])[address] [place] [address] [place] METAMYELOCYTES (10*3/UL) IN BLOOD BY MANUAL COUNT 0.3 10*3/uL High <=0.0 [facility] Comment on above: Performed By: #### L [id number], [id number] ####Windows Infrastructure Engineer: NED PAK ([id number])[facility])[address] [place] [address] [place] METAMYELOCYTES TOTAL PER COUNTED LEUKOCYTES BY MANUAL COUNT 2 Normal [facility] Comment on above: Performed By: #### L QP4826, [id number] ####Windows Infrastructure Engineer: NED PAK ([id number])[facility])[address] [place] [address] [place] METAMYELOCYTES/100 LEUKOCYTES IN BLOOD BY MANUAL COUNT 2 % High <=0 [facility] Comment on above: Performed By: #### L OU8246, [id number] ####Windows Infrastructure Engineer: NED PAK ([id number])[facility])[address] [place] [address] [place] MONOCYTES (10*3/UL) IN BLOOD BY MANUAL COUNT 1.4 10*3/uL High 0.0-0.8 [facility] Comment on above: Performed By: #### L AC2321, [id number] ####Windows Infrastructure Engineer: NED PAK ([id number])[facility])[address] [place] [address] [place] MONOCYTES TOTAL PER COUNTED LEUKOCYTES BY MANUAL COUNT 10 Normal [facility] Comment on above: Performed By: #### L [id number], [id number] ####Windows Infrastructure Engineer: NED PAK ([id number])[facility])[address] [place] [address] [place] MONOCYTES/100 LEUKOCYTES IN BLOOD BY MANUAL COUNT 10 % Normal 2-10 [facility] Comment on above: Performed By: #### L QZ4076, [id number] ####Windows Infrastructure Engineer: NED PAK ([id number])[facility])[address] [place] [address] [place] NEUTROPHILS (SEGS+BANDS) (10*3/UL) BY MANUAL COUNT 10.5 10*3/uL High 1.8-7.0 [facility] Comment on above: Performed By: #### L [id number], [id number] ####Windows Infrastructure Engineer: NED PAK ([id number])[facility])[address] [place] [address] [place] NEUTROPHILS BAND FORM/100 LEUKOCYTES IN BLOOD BY MANUAL COUNT 7 % High <=0 [facility] Comment on above: Performed By: #### L [id number], [id number] ####Windows Infrastructure Engineer: NED PAK ([id number])[facility] ([facility])[address] [place] [address] [place] NEUTROPHILS TOTAL PER COUNTED LEUKOCYTES BY MANUAL COUNT 69 Normal [facility] Comment on above: Performed By: #### L YQ0190, [id number] ####Windows Infrastructure Engineer: NED PAK ([id number])[facility] ([facility])[address] [place] [address] NUCLEATED ERYTHROCYTES/100 LEUKOCYTES IN BLOOD BY MANUAL COUNT 2 % Normal [facility] Comment on above: Performed By: #### L [id number], [id number] ####Windows Infrastructure Engineer: NED PAK ([id number])[facility] ([facility])[address] [place] [address] [place] OVALOCYTES PRESENCE IN BLOOD BY LIGHT MICROSCOPY Slight Abnormal (none) [facility] Comment on above: Performed By: #### L SX6972, [id number] ####Windows Infrastructure Engineer: NED PAK ([id number])[facility] ([facility])[address] [place] [address] [place] PLATELET MORPHOLOGY IN BLOOD Normal Normal [facility] Comment on above: Performed By: #### L [id number], [id number] ####Windows Infrastructure Engineer: NED PAK ([id number])[facility] ([facility])[address] [place] [address] [place] POIKILOCYTOSIS (PRESENCE) IN BLOOD BY LIGHT MICROSCOPY Slight Abnormal (none) [facility] Comment on above: Performed By: #### L KU2374, [id number] ####Windows Infrastructure Engineer: NED PAK ([id number])[facility] ([facility])[address] [place] [address] [place] POLYCHROMASIA IN BLOOD BY LIGHT MICROSCOPY Slight Abnormal (none) [facility] Comment on above: Performed By: #### L [id number], [id number] ####Windows Infrastructure Engineer: NED PAK ([id number])[facility] ([facility])[address] [place] [address] SEGEMENTED NEUTROPHILS/100 LEUKOCYTES BY MANUAL COUNT 69 % Normal 40-80 [facility] Comment on above: Performed By: #### L EM8856, [id number] ####Windows Infrastructure Engineer: NED PAK ([id number])[facility] ([facility])[address] [place] [address] SEGMENTED NEUTROPHILS (10*3/UL)IN BLOOD BY MANUAL COUNT 10.5 10*3/uL High 1.8-7.0 [facility] Comment on above: Performed By: #### L OR9816, [id number] ####Windows Infrastructure Engineer: NED PAK ([id number])[facility] ([facility])[address] [place] [address] VACUOLATED NEUTROPHILS PRESENCE IN BLOOD BY LIGHT MICROSCOPY (PRESENT) Present Abnormal (none) [facility] Comment on above: Performed By: #### L [id number], [id number] ####Windows Infrastructure Engineer: NED PAK ([id number])[facility] ([facility])[address] [place] [address] VARIANT LYMPHOCYTES (10*3/UL) IN BLOOD BY MANUAL COUNT 0.1 10*3/uL High <=0.0 [facility] Comment on above: Performed By: #### L [id number], [id number] ####Windows Infrastructure Engineer: NED PAK ([id number])[facility] ([facility])[address] [place] [address] VARIANT LYMPHOCYTES TOTAL PER COUNTED LEUKOCYTES BY MANUAL COUNT 1 Normal [facility] Comment on above: Performed By: #### L [id number], [id number] ####Windows Infrastructure Engineer: NED PAK ([id number])[facility] ([facility])[address] [place] [address] Nursing Noteon 12-26-2022 Nursing Note Contact list updated Renée is primary Jose Luis is to be contacted secondary at [phone] Normal [facility] Nursing Note Patients family askpopeye huerta that primary contact be updated to gabrielle Chinchilla as patients is [place]. Patient is ok with Renée being primary contact. Will adjust in contact list [facility] Nursing Note Patient family asktabatha gutierrez for an update. Message sent to trauma CATHRYN Church she will come to bedside to speak to patient Normal [facility] Nursing Note Patient bladder scan millie for greater than 400 ml. Patient straight cathed as ordered for 500 ml urine Normal [facility] Nursing Note Normal [facility] Progress Noteon 12-26-2022 Progress Note 1800 bladder scan wa s >537ml. Patient has been straight catheterized 3 times since [address] Avendano made aware and order received to place indwelling duarte catheter. Normal [facility] Progress Note Normal [facility] BASIC METABOLIC PANELon 10-0 Anion gap [Moles/Vol] 10 mmol/L Normal 3-13 [facility] Comment on above: Performed By: #### L AB15 ####Windows Infrastructure Engineer: NED PAK ([id number])[address] Calcium [Mass/Vol] 8.8 mg/dL Normal 8.4-10.4 [facility] Comment on above: Performed By: #### L AB15 ####Windows Infrastructure Engineer: NED PAK ([id number])[facility])[address] [place] [address] Chloride [Moles/Vol] 105 mmol/L Normal 98-107 [facility] Comment on above: Performed By: #### L AB15 ####Windows Infrastructure Engineer: NED PAK ([id number])[address] CO2 [Moles/Vol] 24 mmol/L Normal 22-30 [facility] Comment on above: Performed By: #### L AB15 ####Windows Infrastructure Engineer: NED PAK ([id number])[facility] [place] [address] Creatinine [Mass/Vol] 0.63 mg/dL Normal 0.52-1.04 [facility] Comment on above: Performed By: #### L AB15 ####Windows Infrastructure Engineer: NED PAK ([id number])[facility])[address] [place] [address] [place] GLOMERULAR FILTRATION RATE ML/MIN/1.73 SQ M.PREDICTED 79.3 mL/min/1.73m*2 Normal >60.0 [facility] Comment on above: Result Comment: Calc ulation based on the Chronic Kidney Disease Epidemiology Collaboration (CKD-EPI) equation refit without adjustment for race Performed By: #### L AB15 ####Windows Infrastructure Engineer: NED PAK ([id number])[facility] ([facility])[address] [place] [address] Glucose [Mass/Vol] 117 mg/dL High 70-100 [facility] Comment on above: Performed By: #### L AB15 ####Windows Infrastructure Engineer: NED PAK ([id number])[facility] ([facility])[address] [place] [address] Potassium [Moles/Vol] 3.7 mmol/L Normal 3.5-5.1 [facility] Comment on above: Performed By: #### L AB15 ####Windows Infrastructure Engineer: NED PAK ([id number])[facility])[address] [place] [address] [place] Sodium [Moles/Vol] 139 mmol/L Normal 135-145 [facility] Comment on above: Performed By: #### L AB15 ####Windows Infrastructure Engineer: NED PAK ([id number])[facility])[address] [place] [address] [place] Urea nitrogen [Mass/Vol] 26 mg/dL High 7-17 [facility] Comment on above: Performed By: #### L AB15 ####Windows Infrastructure Engineer: NED PAK ([id number])[facility] ([facility])[address] [place] [address] [place] CARECOORDon 12-25-2022 CARECOORD Normal [facility] CBC WITH AUTO DIFFERENTIALon 12-25-2022 Erythrocyte distribution width (RBC) [Ratio] 14.9 % High 11.5-14.5 [facility] Comment on above: Performed By: #### L [id number], [id number] ####Windows Infrastructure Engineer: NED PAK ([id number])[facility])[address] [place] [address] ERYTHROCYTE MEAN CORPUSCULAR HEMOGLOBIN CONCENTRATION (G/DL) BY AUTOMATED 32.6 % Normal 32.0-36.0 [facility] Comment on above: Performed By: #### L [id number], [id number] ####Windows Infrastructure Engineer: NED PAK ([id number])[facility])[address] [place] [address] Hematocrit (Bld) [Volume fraction] 26.6 % Low 35.0-47.0 [facility] Comment on above: Performed By: #### Tameka QI2818, [id number] ####Windows Infrastructure Engineer: NED PAK ([id number])[address] Hemoglobin (Bld) [Mass/Vol] 8.7 g/dL Low 11.7-16.0 [facility] Comment on above: Performed By: #### L [id number], [id number] ####Windows Infrastructure Engineer: NED PAK ([id number])[address] MCH (RBC) [Entitic mass] 29.8 pg Normal 26.0-34.0 [facility] Comment on above: Performed By: #### L BK7857, [id number] ####Windows Infrastructure Engineer: NED PAK ([id number])[facility])[address] [place] [address] MCV (RBC) [Entitic vol] 91.3 fL Normal 80.0-98.0 [facility] Comment on above: Performed By: #### L YY8261, [id number] ####Windows Infrastructure Engineer: NED PAK ([id number])[facility])[address] [place] [address] NRBC (PER 100 WBCS) BY AUTOMATED COUNT 0.3 /100 WBCs Normal 0.0-2.0 [facility] Comment on above: Performed By: #### L [id number], [id number] ####Windows Infrastructure Engineer: NED PAK ([id number])[facility])[address] [place] [address] Platelet mean volume (Bld) [Entitic vol] 7.6 fL Normal 7.4-12.4 [facility] Comment on above: Performed By: #### L JP1995, [id number] ####Windows Infrastructure Engineer: NED PAK ([id number])[facility])[address] [place] [address] PLATELETS (10*3/UL) IN BLOOD AUTOMATED COUNT 309 10*3/uL Normal 140-440 [facility] Comment on above: Performed By: #### L LG1416, [id number] ####Windows Infrastructure Engineer: NED PAK ([id number])[facility])[address] [place] [address] RBC (Bld) [#/Vol] 2.92 10*6/uL Low 3.8-5.20 [facility] Comment on above: Performed By: #### L SI5740, [id number] ####Windows Infrastructure Engineer: NED PAK ([id number])[facility])[address] [place] [address] WBC (Bld) [#/Vol] 14.8 10*3/uL High 3.6-10.7 [facility] Comment on above: Performed By: #### L [id number], [id number] ####Windows Infrastructure Engineer: NED PAK ([id number])[facility])[address] [place] [address] MANUAL DIFFERENTIALon 2022 BAND NEUTROPHILS (10*3/UL) BLOOD MANUAL COUNT 0.1 10*3/uL High <=0.0 [facility] Comment on above: Performed By: #### L DK0583, [id number] ####Windows Infrastructure Engineer: NED PAK ([id number])[facility] ([facility])[address] [place] [address] BAND NEUTROPHILS TOTAL PER COUNTED LEUKOCYTES BY MANUAL COUNT 1 Normal [facility] Comment on above: Performed By: #### L OI1330, [id number] ####Windows Infrastructure Engineer: NED PAK ([id number])[facility] ([facility])[address] [place] [address] CELLS COUNTED TOTAL (#) IN BLOOD 100 Normal [facility] Comment on above: Performed By: #### L [id number], [id number] ####Windows Infrastructure Engineer: NED PAK ([id number])[facility] ([facility])[address] [place] [address] DIFFERENTIAL METHOD Manual differential performed Normal [facility] Comment on above: Performed By: #### L [id number], [id number] ####Windows Infrastructure Engineer: NED PAK ([id number])[facility] ([facility])[address] [place] [address] [place] EOSINOPHILS (10*3/UL) IN BLOOD BY MANUAL COUNT 0.6 10*3/uL High 0.0-0.5 [facility] Comment on above: Performed By: #### L [id number], [id number] ####Windows Infrastructure Engineer: NED PAK ([id number])[facility] ([facility])[address] [place] [address] [place] EOSINOPHILS TOTAL PER COUNTED LEUKOCYTES BY MANUAL COUNT 4 High 0-1 [facility] Comment on above: Performed By: #### L SY1843, [id number] ####Windows Infrastructure Engineer: NED PAK ([id number])[facility] ([facility])[address] [place] [address] [place] EOSINOPHILS/100 LEUKOCYTES IN BLOOD BY MANUAL COUNT 4 % Normal 1-6 [facility] Comment on above: Performed By: #### L [id number], [id number] ####Windows Infrastructure Engineer: NED [id number])[facility] [place] [address] [place] LEUKOCYTE MORPHOLOGY FINDING IN BLOOD Normal Normal [facility] Comment on above: Performed By: #### L MW5812, [id number] ####Windows Infrastructure Engineer: NED PAK ([id number])[facility] ([facility])[address] [place] [address] LEUKOCYTES (10*3/UL) NUCLEATED ERYTHROCYTE ADJUST 14.8 10*3/uL High 3.6-10.7 [facility] Comment on above: Performed By: #### L [id number], [id number] ####Windows Infrastructure Engineer: NED PAK ([id number])[facility])[address] [place] [address] LYMPHOCYTES (10*3/UL) IN BLOOD BY MANUAL COUNT 1.8 10*3/uL Normal 1.0-4.3 [facility] Comment on above: Performed By: #### Tameka ZZ2978, [id number] ####Windows Infrastructure Engineer: NED PAK ([id number])[facility] ([facility])[address] [place] [address] [place] LYMPHOCYTES TOTAL PER COUNTED LEUKOCYTES BY MANUAL COUNT 12 Normal [facility] Comment on above: Performed By: #### Tameka XK0991, [id number] ####Windows Infrastructure Engineer: NED PAK ([id number])[facility])[address] [place] [address] [place] LYMPHOCYTES/100 LEUKOCYTES IN BLOOD BY MANUAL COUNT 12 % Low 20-40 [facility] Comment on above: Performed By: #### L [id number], [id number] ####Windows Infrastructure Engineer: NED PAK ([id number])[facility])[address] [place] [address] [place] METAMYELOCYTES (10*3/UL) IN BLOOD BY MANUAL COUNT 0.1 10*3/uL High <=0.0 [facility] Comment on above: Performed By: #### L [id number], [id number] ####Windows Infrastructure Engineer: NED PAK ([id number])[facility] ([facility])[address] [place] [address] [place] METAMYELOCYTES TOTAL PER COUNTED LEUKOCYTES BY MANUAL COUNT 1 Normal [facility] Comment on above: Performed By: #### L [id number], [id number] ####Windows Infrastructure Engineer: NED PAK ([id number])[facility] ([facility])[address] [place] [address] [place] METAMYELOCYTES/100 LEUKOCYTES IN BLOOD BY MANUAL COUNT 1 % High <=0 [facility] Comment on above: Performed By: #### L [id number], [id number] ####Windows Infrastructure Engineer: NED PAK ([id number])[facility] ([facility])[address] [place] [address] [place] MONOCYTES (10*3/UL) IN BLOOD BY MANUAL COUNT 0.9 10*3/uL High 0.0-0.8 [facility] Comment on above: Performed By: #### L [id number], [id number] ####Windows Infrastructure Engineer: NED PAK ([id number])[facility] ([facility])[address] [place] [address] [place] MONOCYTES TOTAL PER COUNTED LEUKOCYTES BY MANUAL COUNT 6 Normal [facility] Comment on above: Performed By: #### L [id number], [id number] ####Windows Infrastructure Engineer: NED PAK ([id number])[facility] ([facility])[address] [place] [address] [place] MONOCYTES/100 LEUKOCYTES IN BLOOD BY MANUAL COUNT 6 % Normal 2-10 [facility] Comment on above: Performed By: #### L [id number], [id number] ####Windows Infrastructure Engineer: NED PAK ([id number])[facility] ([facility])[address] [place] [address] [place] MYELOCYTES (10*3/UL) IN BLOOD BY MANUAL COUNT 0.1 10*3/uL High <=0.0 [facility] Comment on above: Performed By: #### L [id number], [id number] ####Windows Infrastructure Engineer: NED PAK ([id number])[facility] ([facility])[address] [place] [address] [place] MYELOCYTES COUNTED BY MANUAL COUNT 1 Normal [facility] Comment on above: Performed By: #### L [id number], [id number] ####Windows Infrastructure Engineer: NED PAK ([id number])[facility])[address] [place] [address] [place] MYELOCYTES/100 LEUKOCYTES IN BLOOD BY MANUAL COUNT 1 % High <=0 [facility] Comment on above: Performed By: #### L [id number], [id number] ####Windows Infrastructure Engineer: NED PAK ([id number])[facility])[address] [place] [address] [place] NEUTROPHILS (SEGS+BANDS) (10*3/UL) BY MANUAL COUNT 11.2 10*3/uL High 1.8-7.0 [facility] Comment on above: Performed By: #### L [id number], [id number] ####Windows Infrastructure Engineer: NED PAK ([id number])[facility])[address] [place] [address] [place] NEUTROPHILS BAND FORM/100 LEUKOCYTES IN BLOOD BY MANUAL COUNT 1 % High <=0 [facility] Comment on above: Performed By: #### Tameka [id number], [id number] ####Windows Infrastructure Engineer: NED PAK ([id number])[facility])[address] [place] [address] [place] NEUTROPHILS TOTAL PER COUNTED LEUKOCYTES BY MANUAL COUNT 75 Normal [facility] Comment on above: Performed By: #### L [id number], [id number] ####Windows Infrastructure Engineer: NED PAK ([id number])[facility])[address] [place] [address] [place] NUCLEATED ERYTHROCYTES/100 LEUKOCYTES IN BLOOD BY MANUAL COUNT 1 % Normal [facility] Comment on above: Performed By: #### L [id number], [id number] ####Windows Infrastructure Engineer: NED PAK ([id number])[facility])[address] [place] [address] [place] OVALOCYTES PRESENCE IN BLOOD BY LIGHT MICROSCOPY Slight Abnormal (none) [facility] Comment on above: Performed By: #### L [id number], [id number] ####Windows Infrastructure Engineer: NED PAK ([id number])[facility] [place] [address] PLATELET MORPHOLOGY IN BLOOD Normal Normal [facility] Comment on above: Performed By: #### L [id number], [id number] ####Windows Infrastructure Engineer: NED PAK ([id number])[facility] ([facility])[address] [place] [address] POIKILOCYTOSIS (PRESENCE) IN BLOOD BY LIGHT MICROSCOPY Slight Abnormal (none) [facility] Comment on above: Performed By: #### L [id number], [id number] ####Windows Infrastructure Engineer: NED PAK ([id number])[facility] ([facility])[address] [place] [address] POLYCHROMASIA IN BLOOD BY LIGHT MICROSCOPY Slight Abnormal (none) [facility] Comment on above: Performed By: #### Tameka CT1207, [id number] ####Windows Infrastructure Engineer: NED PAK ([id number])[facility] ([facility])[address] [place] [address] SEGEMENTED NEUTROPHILS/100 LEUKOCYTES BY MANUAL COUNT 75 % Normal 40-80 [facility] Comment on above: Performed By: #### Tameka YF1045, [id number] ####Windows Infrastructure Engineer: NED PAK ([id number])[facility] ([facility])[address] [place] [address] SEGMENTED NEUTROPHILS (10*3/UL)IN BLOOD BY MANUAL COUNT 11.2 10*3/uL High 1.8-7.0 [facility] Comment on above: Performed By: #### L HY3505, [id number] ####Windows Infrastructure Engineer: NED PAK ([id number])[facility] ([facility])[address] [place] [address] Progress Noteon 12-25-2022 Progress Note Normal [facility] Progress Note Normal [facility] Progress Note Normal [facility] Progress Note Normal [facility] BASIC METABOLIC PANELon Anion gap [Moles/Vol] 11 mmol/L Normal 3-13 [facility] Comment on above: Performed By: #### L AB15 ####Windows Infrastructure Engineer: NED PAK ([id number])[facility])[address] [place] [address] Calcium [Mass/Vol] 8.6 mg/dL Normal 8.4-10.4 [facility] Comment on above: Performed By: #### L AB15 ####Windows Infrastructure Engineer: NED PAK ([id number])[facility] ([facility])[address] [place] [address] Chloride [Moles/Vol] 109 mmol/L High 98-107 [facility] Comment on above: Performed By: #### L AB15 ####Windows Infrastructure Engineer: NED PAK ([id number])[facility] ([facility])[address] [place] [address] CO2 [Moles/Vol] 23 mmol/L Normal 22-30 [facility] Comment on above: Performed By: #### L AB15 ####Windows Infrastructure Engineer: NED PAK ([id number])[facility] ([facility])[address] [place] [address] Creatinine [Mass/Vol] 0.64 mg/dL Normal 0.52-1.04 [facility] Comment on above: Performed By: #### L AB15 ####Windows Infrastructure Engineer: NED PAK ([id number])[facility])[address] [place] [address] [place] GLOMERULAR FILTRATION RATE ML/MIN/1.73 SQ M.PREDICTED 79.0 mL/min/1.73m*2 Normal >60.0 [facility] Comment on above: Result Comment: Calc ulation based on the Chronic Kidney Disease Epidemiology Collaboration (CKD-EPI) equation refit without adjustment for race Performed By: #### L AB15 ####Windows Infrastructure Engineer: END PAK ([id number])[facility] ([facility])[address] [place] [address] Glucose [Mass/Vol] 157 mg/dL High 70-100 [facility] Comment on above: Performed By: #### L AB15 ####Windows Infrastructure Engineer: NED PAK ([id number])[facility])[address] [place] [address] Potassium [Moles/Vol] 3.7 mmol/L Normal 3.5-5.1 [facility] Comment on above: Performed By: #### L AB15 ####Windows Infrastructure Engineer: NED PAK ([id number])[facility] ([facility])[address] [place] [address] Sodium [Moles/Vol] 143 mmol/L Normal 135-145 [facility] Comment on above: Performed By: #### L AB15 ####Windows Infrastructure Engineer: NED PAK ([id number])[facility])[address] [place] [address] Urea nitrogen [Mass/Vol] 27 mg/dL High 7-17 [facility] Comment on above: Performed By: #### L AB15 ####Windows Infrastructure Engineer: NED PAK ([id number])[facility] ([facility])[address] [place] [address] CARECOORDon 12-24-2022 CARECOORD Normal [facility] CBC WITH AUTO DIFFERENTIALon 12-24-2022 Erythrocyte distribution width (RBC) [Ratio] 13.9 % Normal 11.5-14.5 [facility] Comment on above: Performed By: #### L [id number], [id number] ####Windows Infrastructure Engineer: NED PAK ([id number])[facility] ([facility])[address] [place] [address] ERYTHROCYTE MEAN CORPUSCULAR HEMOGLOBIN CONCENTRATION (G/DL) BY AUTOMATED 32.9 % Normal 32.0-36.0 [facility] Comment on above: Performed By: #### L [id number], [id number] ####Windows Infrastructure Engineer: NED PAK ([id number])[facility] ([facility])[address] [place] [address] Hematocrit (Bld) [Volume fraction] 22.8 % Low 35.0-47.0 [facility] Comment on above: Performed By: #### L [id number], YMH3271 ####Windows Infrastructure Engineer: NED PAK ([id number])[address] Hemoglobin (Bld) [Mass/Vol] 7.5 g/dL Low 11.7-16.0 [facility] Comment on above: Performed By: #### L [id number], NEA0691 ####Windows Infrastructure Engineer: NED PAK ([id number])[facility])[address] [place] [address] MCH (RBC) [Entitic mass] 29.0 pg Normal 26.0-34.0 [facility] Comment on above: Performed By: #### L MB3469, RHA3497 ####Windows Infrastructure Engineer: NED PAK ([id number])[address] MCV (RBC) [Entitic vol] 88.2 fL Normal 80.0-98.0 [facility] Comment on above: Performed By: #### L [id number], [id number] ####Windows Infrastructure Engineer: NED PAK ([id number])[address] NRBC (PER 100 WBCS) BY AUTOMATED COUNT 0.2 /100 WBCs Normal 0.0-2.0 [facility] Comment on above: Performed By: #### L [id number], [id number] ####Windows Infrastructure Engineer: NED PAK ([id number])[facility])[address] [place] [address] Platelet mean volume (Bld) [Entitic vol] 7.5 fL Normal 7.4-12.4 [facility] Comment on above: Performed By: #### L BX7337, [id number] ####Windows Infrastructure Engineer: NED PAK ([id number])[address] PLATELETS (10*3/UL) IN BLOOD AUTOMATED COUNT 349 10*3/uL Normal 140-440 [facility] Comment on above: Performed By: #### L PB4735, [id number] ####Windows Infrastructure Engineer: NED PAK ([id number])[facility])[address] [place] [address] RBC (Bld) [#/Vol] 2.59 10*6/uL Low 3.8-5.20 [facility] Comment on above: Performed By: #### L ND4339, [id number] ####Windows Infrastructure Engineer: NED PAK ([id number])[facility])[address] [place] [address] WBC (Bld) [#/Vol] 15.8 10*3/uL High 3.6-10.7 [facility] Comment on above: Performed By: #### Tameka [id number], [id number] ####Windows Infrastructure Engineer: NED PAK ([id number])[facility])[address] [place] [address] MANUAL DIFFERENTIALon 2022 ANISOCYTOSIS PRESENCE IN BLOOD BY LIGHT MICROSCOPY Slight Abnormal (none) [facility] Comment on above: Performed By: #### Tameka [id number], [id number] ####Windows Infrastructure Engineer: NED PAK ([id number])[facility])[address] [place] [address] BAND NEUTROPHILS (10*3/UL) BLOOD MANUAL COUNT 0.8 10*3/uL High <=0.0 [facility] Comment on above: Performed By: #### L [id number], [id number] ####Windows Infrastructure Engineer: NED PAK ([id number])[facility])[address] [place] [address] BAND NEUTROPHILS TOTAL PER COUNTED LEUKOCYTES BY MANUAL COUNT 5 Normal [facility] Comment on above: Performed By: #### L [id number], [id number] ####Windows Infrastructure Engineer: NED PAK ([id number])[facility])[address] [place] [address] CELLS COUNTED TOTAL (#) IN BLOOD 100 Normal [facility] Comment on above: Performed By: #### L [id number], [id number] ####Windows Infrastructure Engineer: NED PAK ([id number])[address] DIFFERENTIAL METHOD Manual differential performed Normal [facility] Comment on above: Performed By: #### L EO5464, [id number] ####Windows Infrastructure Engineer: NED PAK ([id number])[facility])[address] [place] [address] LEUKOCYTE MORPHOLOGY FINDING IN BLOOD Normal Normal [facility] Comment on above: Performed By: #### L [id number], OGI2984 ####Windows Infrastructure Engineer: NED PAK ([id number])[address] LEUKOCYTES (10*3/UL) NUCLEATED ERYTHROCYTE ADJUST 15.8 10*3/uL High 3.6-10.7 [facility] Comment on above: Performed By: #### L [id number], [id number] ####Windows Infrastructure Engineer: NED PAK ([id number])[facility])[address] [place] [address] LYMPHOCYTES (10*3/UL) IN BLOOD BY MANUAL COUNT 1.9 10*3/uL Normal 1.0-4.3 [facility] Comment on above: Performed By: #### Tameka GA5183, [id number] ####Windows Infrastructure Engineer: NED PAK ([id number])[facility])[address] [place] [address] LYMPHOCYTES TOTAL PER COUNTED LEUKOCYTES BY MANUAL COUNT 12 Normal [facility] Comment on above: Performed By: #### L [id number], IBS5690 ####Windows Infrastructure Engineer: NED PAK ([id number])[facility])[address] [place] [address] LYMPHOCYTES/100 LEUKOCYTES IN BLOOD BY MANUAL COUNT 12 % Low 20-40 [facility] Comment on above: Performed By: #### L EK7558, [id number] ####Windows Infrastructure Engineer: NED PAK ([id number])[facility] [place] [address] [place] METAMYELOCYTES (10*3/UL) IN BLOOD BY MANUAL COUNT 0.2 10*3/uL High <=0.0 [facility] Comment on above: Performed By: #### L [id number], [id number] ####Windows Infrastructure Engineer: NED PAK ([id number])[facility] ([facility])[address] [place] [address] [place] METAMYELOCYTES TOTAL PER COUNTED LEUKOCYTES BY MANUAL COUNT 1 Normal [facility] Comment on above: Performed By: #### L [id number], [id number] ####Windows Infrastructure Engineer: NED PAK ([id number])[facility] ([facility])[address] [place] [address] [place] METAMYELOCYTES/100 LEUKOCYTES IN BLOOD BY MANUAL COUNT 1 % High <=0 [facility] Comment on above: Performed By: #### L FY7432, [id number] ####Windows Infrastructure Engineer: NED PAK ([id number])[facility] [place] [address] [place] MONOCYTES (10*3/UL) IN BLOOD BY MANUAL COUNT 1.1 10*3/uL High 0.0-0.8 [facility] Comment on above: Performed By: #### L ER6864, [id number] ####Windows Infrastructure Engineer: NED PAK ([id number])[facility] ([facility])[address] [place] [address] [place] MONOCYTES TOTAL PER COUNTED LEUKOCYTES BY MANUAL COUNT 7 Normal [facility] Comment on above: Performed By: #### L XH4953, IWB7969 ####Windows Infrastructure Engineer: NED PAK ([id number])[facility] ([facility])[address] [place] [address] [place] MONOCYTES/100 LEUKOCYTES IN BLOOD BY MANUAL COUNT 7 % Normal 2-10 [facility] Comment on above: Performed By: #### L IH8865, [id number] ####Windows Infrastructure Engineer: NED PAK ([id number])[facility] ([facility])[address] [place] [address] [place] NEUTROPHILS (SEGS+BANDS) (10*3/UL) BY MANUAL COUNT 12.6 10*3/uL High 1.8-7.0 [facility] Comment on above: Performed By: #### L [id number], [id number] ####Windows Infrastructure Engineer: NED PAK ([id number])[facility] ([facility])[address] [place] [address] [place] NEUTROPHILS BAND FORM/100 LEUKOCYTES IN BLOOD BY MANUAL COUNT 5 % High <=0 [facility] Comment on above: Performed By: #### L YV1106, [id number] ####Windows Infrastructure Engineer: NED PAK ([id number])[facility])[address] [place] [address] NEUTROPHILS TOTAL PER COUNTED LEUKOCYTES BY MANUAL COUNT 75 Normal [facility] Comment on above: Performed By: #### L AE7490, [id number] ####Windows Infrastructure Engineer: NED PAK ([id number])[facility] ([facility])[address] [place] [address] [place] NUCLEATED ERYTHROCYTES/100 LEUKOCYTES IN BLOOD BY MANUAL COUNT 1 % Normal [facility] Comment on above: Performed By: #### L XW0179, [id number] ####Windows Infrastructure Engineer: NED PAK ([id number])[facility] ([facility])[address] [place] [address] [place] OVALOCYTES PRESENCE IN BLOOD BY LIGHT MICROSCOPY Slight Abnormal (none) [facility] Comment on above: Performed By: #### L [id number], [id number] ####Windows Infrastructure Engineer: NED PAK ([id number])[facility] ([facility])[address] [place] [address] [place] PLATELET MORPHOLOGY IN BLOOD Normal Normal [facility] Comment on above: Performed By: #### L MH3119, [id number] ####Windows Infrastructure Engineer: NED PAK ([id number])[facility] ([facility])[address] [place] [address] [place] POIKILOCYTOSIS (PRESENCE) IN BLOOD BY LIGHT MICROSCOPY Slight Abnormal (none) [facility] Comment on above: Performed By: #### L HG3681, [id number] ####Windows Infrastructure Engineer: NED PAK ([id number])[facility])[address] [place] [address] POLYCHROMASIA IN BLOOD BY LIGHT MICROSCOPY Slight Abnormal (none) [facility] Comment on above: Performed By: #### L GR1645, [id number] ####Windows Infrastructure Engineer: NED PAK ([id number])[facility] ([facility])[address] [place] [address] SEGEMENTED NEUTROPHILS/100 LEUKOCYTES BY MANUAL COUNT 75 % Normal 40-80 [facility] Comment on above: Performed By: #### L EY0723, [id number] ####Windows Infrastructure Engineer: NED PAK ([id number])[facility] ([facility])[address] [place] [address] SEGMENTED NEUTROPHILS (10*3/UL)IN BLOOD BY MANUAL COUNT 12.6 10*3/uL High 1.8-7.0 [facility] Comment on above: Performed By: #### L [id number], [id number] ####Windows Infrastructure Engineer: NED PAK ([id number])[facility])[address] [place] [address] Nursing Noteon 12-24-2022 Nursing Note Pt to 3N at this ryland e with all belongings Normal [facility] Progress Noteon 12-24-2022 Progress Note Normal [facility] Progress Note Normal [facility] Progress Note Normal [facility] Progress Note Normal [facility] BASIC METABOLIC PANELon 10-0 Anion gap [Moles/Vol] 6 mmol/L Normal 3-13 [facility] Comment on above: Performed By: #### L AB40, LAB15 ####Windows Infrastructure Engineer: NED PAK ([id number])[facility])[address] [place] [address] Calcium [Mass/Vol] 8.4 mg/dL Normal 8.4-10.4 [facility] Comment on above: Performed By: #### L AB40, LAB15 ####Windows Infrastructure Engineer: NED PAK ([id number])[facility] ([facility])[address] [place] [address] [place] Chloride [Moles/Vol] 109 mmol/L High 98-107 [facility] Comment on above: Performed By: #### L AB40, LAB15 ####Windows Infrastructure Engineer: NED PAK ([id number])[facility] ([facility])[address] [place] [address] [place] CO2 [Moles/Vol] 27 mmol/L Normal 22-30 [facility] Comment on above: Performed By: #### L AB40, LAB15 ####Windows Infrastructure Engineer: NED PAK ([id number])[facility])[address] [place] [address] Creatinine [Mass/Vol] 0.71 mg/dL Normal 0.52-1.04 [facility] Comment on above: Performed By: #### L AB40, LAB15 ####Windows Infrastructure Engineer: NED PAK ([id number])[facility] ([facility])[address] [place] [address] GLOMERULAR FILTRATION RATE ML/MIN/1.73 SQ M.PREDICTED 76.0 mL/min/1.73m*2 Normal >60.0 [facility] Comment on above: Result Comment: Calc ulation based on the Chronic Kidney Disease Epidemiology Collaboration (CKD-EPI) equation refit without adjustment for race Performed By: #### L AB40, LAB15 ####Windows Infrastructure Engineer: NED PAK ([id number])[facility] ([facility])[address] [place] [address] [place] Glucose [Mass/Vol] 125 mg/dL High 70-100 [facility] Comment on above: Performed By: #### L AB40, LAB15 ####Windows Infrastructure Engineer: NED PAK ([id number])[facility])[address] [place] [address] Potassium [Moles/Vol] 3.6 mmol/L Normal 3.5-5.1 [facility] Comment on above: Performed By: #### L AB40, LAB15 ####Windows Infrastructure Engineer: NED PAK ([id number])[address] Sodium [Moles/Vol] 141 mmol/L Normal 135-145 [facility] Comment on above: Performed By: #### L AB40, LAB15 ####Windows Infrastructure Engineer: NED PAK ([id number])[address] Urea nitrogen [Mass/Vol] 29 mg/dL High 7-17 [facility] Comment on above: Performed By: #### L AB40, LAB15 ####Windows Infrastructure Engineer: NED PAK ([id number])[address] C. DIFFICILE BY PCR WITH REF MALENA TO EIAon 12-23-2022 C. DIFFICILE BY PCR WITH REFLEX TO EIA C. DIFFICILE TOXIN PCR Reference Not Detected Not Detected ORDER COMMENTS: C. difficile infection is unlikely to be present. Methodology: Real-time PCR Normal [facility] Comment on above: Performed By: #### L [id number] ####Windows Infrastructure Engineer: NED PAK ([id number])[address] CARECOORDon 12-23-2022 CARECOORD Normal [facility] CBC WITH AUTO DIFFERENTIALon 12-23-2022 Erythrocyte distribution width (RBC) [Ratio] 14.1 % Normal 11.5-14.5 [facility] Comment on above: Performed By: #### L [id number], [id number] ####Windows Infrastructure Engineer: NED PAK ([id number])[address] ERYTHROCYTE MEAN CORPUSCULAR HEMOGLOBIN CONCENTRATION (G/DL) BY AUTOMATED 33.1 % Normal 32.0-36.0 [facility] Comment on above: Performed By: #### L [id number], [id number] ####Windows Infrastructure Engineer: NED [id number])[address] Hematocrit (Bld) [Volume fraction] 23.2 % Low 35.0-47.0 [facility] Comment on above: Performed By: #### L EE1788, [id number] ####Windows Infrastructure Engineer: NED PAK ([id number])[address] Hemoglobin (Bld) [Mass/Vol] 7.7 g/dL Low 11.7-16.0 [facility] Comment on above: Performed By: #### L [id number], [id number] ####Windows Infrastructure Engineer: NED PAK ([id number])[address] MCH (RBC) [Entitic mass] 29.0 pg Normal 26.0-34.0 [facility] Comment on above: Performed By: #### Tameka [id number], [id number] ####Windows Infrastructure Engineer: NED PAK ([id number])[facility])[address] [place] [address] MCV (RBC) [Entitic vol] 87.7 fL Normal 80.0-98.0 [facility] Comment on above: Performed By: #### L [id number], [id number] ####Windows Infrastructure Engineer: NED PAK ([id number])[address] Platelet mean volume (Bld) [Entitic vol] 7.2 fL Low 7.4-12.4 [facility] Comment on above: Performed By: #### L [id number], [id number] ####Windows Infrastructure Engineer: NED PAK ([id number])[address] PLATELETS (10*3/UL) IN BLOOD AUTOMATED COUNT 312 10*3/uL Normal 140-440 [facility] Comment on above: Performed By: #### L [id number], [id number] ####Windows Infrastructure Engineer: NED [id number])[facility] [place] [address] RBC (Bld) [#/Vol] 2.65 10*6/uL Low 3.8-5.20 [facility] Comment on above: Performed By: #### L [id number], [id number] ####Windows Infrastructure Engineer: NED PAK ([id number])[facility] ([facility])[address] [place] [address] WBC (Bld) [#/Vol] 17.0 10*3/uL High 3.6-10.7 [facility] Comment on above: Performed By: #### L [id number], [id number] ####Windows Infrastructure Engineer: NED PAK ([id number])[facility] ([facility])[address] [place] [address] COMPLETE URINALYSISon 2022 BACTERIA (#/HPF) IN URINE Negative Normal Negative [facility] Comment on above: Performed By: #### L [id number] ####Windows Infrastructure Engineer: NED PAK ([id number])[facility] ([facility])[address] [place] [address] BILIRUBIN, TOTAL PRESENCE IN URINE Negative Normal Negative [facility] Comment on above: Performed By: #### L [id number] ####Windows Infrastructure Engineer: NED PAK ([id number])[facility] ([facility])[address] [place] [address] Clarity (U) Clear Normal Clear [facility] Comment on above: Performed By: #### L [id number] ####Windows Infrastructure Engineer: NED PAK ([id number])[facility])[address] [place] [address] Color (U) Light Yellow Normal Lt. Yellow [facility] Comment on above: Performed By: #### L [id number] ####Windows Infrastructure Engineer: NED PAK ([id number])[facility] ([facility])[address] [place] [address] GLUCOSE (MG/DL) IN URINE Normal Normal Normal (<70) [facility] Comment on above: Performed By: #### L [id number] ####Windows Infrastructure Engineer: NED PAK ([id number])[facility] ([facility])[address] [place] [address] HEMOGLOBIN PRESENCE IN URINE Negative Normal Negative [facility] Comment on above: Performed By: #### L [id number] ####Windows Infrastructure Engineer: NED PAK ([id number])[facility] ([facility])[address] [place] [address] Ketones Ql (U) Negative Normal Negative [facility] Comment on above: Performed By: #### L [id number] ####Windows Infrastructure Engineer: NED PAK ([id number])[facility])[address] [place] [address] LEUKOCYTE ESTERASE PRESENCE IN URINE BY TEST STRIP 75 Danielito/uL Abnormal Negative [facility] Comment on above: Performed By: #### L [id number] ####Windows Infrastructure Engineer: NED PAK ([id number])[facility] ([facility])[address] [place] [address] MUCUS (#/LPF) IN URINE SEDIMENT Few Normal Negative [facility] Comment on above: Performed By: #### L [id number] ####Windows Infrastructure Engineer: NED PAK ([id number])[facility] ([facility])[address] [place] [address] NITRITE PRESENCE IN URINE Negative Normal Negative [facility] Comment on above: Performed By: #### L [id number] ####Windows Infrastructure Engineer: NED PAK ([id number])[facility] ([facility])[address] [place] [address] pH (U) 7.0 [pH] Normal 5.0-8.0 [facility] Comment on above: Performed By: #### L [id number] ####Windows Infrastructure Engineer: END PAK ([id number])[facility] ([facility])[address] [place] [address] Protein (U) [Mass/Vol] 30 mg/dL Abnormal Negative [facility] Comment on above: Performed By: #### L [id number] ####Windows Infrastructure Engineer: NED PAK ([id number])[facility] ([facility])[address] [place] [address] RBC (#/HPF) IN URINE SEDIMENT 3-5 Abnormal 0-2 [facility] Comment on above: Performed By: #### L [id number] ####Windows Infrastructure Engineer: NED PAK ([id number])[facility] ([facility])[address] [place] [address] Specific gravity (U) [Rel density] 1.020 Normal 1.005-1.03 0 [facility] Comment on above: Performed By: #### L [id number] ####Windows Infrastructure Engineer: NED PAK ([id number])[facility] ([facility])[address] [place] [address] SQUAMOUS EPITHELIAL CELLS (#/HPF) IN URINE SEDIMENT Negative Normal 3-5 [facility] Comment on above: Performed By: #### L [id number] ####Windows Infrastructure Engineer: NED PAK ([id number])[facility] ([facility])[address] [place] [address] UROBILINOGEN (MG/DL) IN URINE Normal Normal Normal (0-1) [facility] Comment on above: Performed By: #### L [id number] ####Windows Infrastructure Engineer: NED PAK ([id number])[facility] ([facility])[address] [place] [address] WBC (LEUKOCYTE) (#/HPF) IN URINE SEDIMENT 26-50 Abnormal 0-5 [facility] Comment on above: Performed By: #### L [id number] ####Windows Infrastructure Engineer: NED PAK ([id number])[facility] ([facility])[address] [place] [address] MANUAL DIFFERENTIALon 2022 BAND NEUTROPHILS (10*3/UL) BLOOD MANUAL COUNT 0.5 10*3/uL High <=0.0 [facility] Comment on above: Performed By: #### L [id number], [id number] ####Windows Infrastructure Engineer: NED PAK ([id number])[facility] ([facility])[address] [place] [address] [place] BAND NEUTROPHILS TOTAL PER COUNTED LEUKOCYTES BY MANUAL COUNT 3 Normal [facility] Comment on above: Performed By: #### L [id number], [id number] ####Windows Infrastructure Engineer: NED PAK ([id number])[facility] ([facility])[address] [place] [address] CELLS COUNTED TOTAL (#) IN BLOOD 100 Normal [facility] Comment on above: Performed By: #### L [id number], [id number] ####Windows Infrastructure Engineer: NED PAK ([id number])[facility] ([facility])[address] [place] [address] DIFFERENTIAL METHOD Manual differential performed Normal [facility] Comment on above: Performed By: #### L [id number], [id number] ####Windows Infrastructure Engineer: NED PAK ([id number])[facility] ([facility])[address] [place] [address] [place] EOSINOPHILS (10*3/UL) IN BLOOD BY MANUAL COUNT 0.2 10*3/uL Normal 0.0-0.5 [facility] Comment on above: Performed By: #### L [id number], [id number] ####Windows Infrastructure Engineer: NED PAK ([id number])[facility] ([facility])[address] [place] [address] [place] EOSINOPHILS TOTAL PER COUNTED LEUKOCYTES BY MANUAL COUNT 1 Normal 0-1 [facility] Comment on above: Performed By: #### L [id number], [id number] ####Windows Infrastructure Engineer: NED PAK ([id number])[facility] ([facility])[address] [place] [address] [place] EOSINOPHILS/100 LEUKOCYTES IN BLOOD BY MANUAL COUNT 1 % Normal 1-6 [facility] Comment on above: Performed By: #### L [id number], [id number] ####Windows Infrastructure Engineer: NED PAK ([id number])[facility] ([facility])[address] [place] [address] [place] HYPERSEGMENTED NEUTROPHILS IN BLOOD BY LIGHT MICROSCOPY (PRESENT) Present Abnormal (none) [facility] Comment on above: Performed By: #### L [id number], [id number] ####Windows Infrastructure Engineer: NED PAK ([id number])[facility])[address] [place] [address] [place] LEUKOCYTES (10*3/UL) NUCLEATED ERYTHROCYTE ADJUST 17.0 10*3/uL High 3.6-10.7 [facility] Comment on above: Performed By: #### L [id number], [id number] ####Windows Infrastructure Engineer: NED PAK ([id number])[facility])[address] [place] [address] [place] LYMPHOCYTES (10*3/UL) IN BLOOD BY MANUAL COUNT 3.7 10*3/uL Normal 1.0-4.3 [facility] Comment on above: Performed By: #### L [id number], [id number] ####Windows Infrastructure Engineer: NED PAK ([id number])[facility])[address] [place] [address] LYMPHOCYTES TOTAL PER COUNTED LEUKOCYTES BY MANUAL COUNT 22 Normal [facility] Comment on above: Performed By: #### [place] [id number], [id number] ####Windows Infrastructure Engineer: NED PAK ([id number])[facility])[address] [place] [address] [place] LYMPHOCYTES/100 LEUKOCYTES IN BLOOD BY MANUAL COUNT 22 % Normal 20-40 [facility] Comment on above: Performed By: #### [place] [id number], [id number] ####Windows Infrastructure Engineer: NED PAK ([id number])[facility])[address] [place] [address] [place] METAMYELOCYTES (10*3/UL) IN BLOOD BY MANUAL COUNT 0.3 10*3/uL High <=0.0 [facility] Comment on above: Performed By: #### L [id number], [id number] ####Windows Infrastructure Engineer: NED PAK ([id number])[facility])[address] [place] [address] [place] METAMYELOCYTES TOTAL PER COUNTED LEUKOCYTES BY MANUAL COUNT 2 Normal [facility] Comment on above: Performed By: #### L [id number], [id number] ####Windows Infrastructure Engineer: NED PAK ([id number])[facility])[address] [place] [address] [place] METAMYELOCYTES/100 LEUKOCYTES IN BLOOD BY MANUAL COUNT 2 % High <=0 [facility] Comment on above: Performed By: #### L [id number], [id number] ####Windows Infrastructure Engineer: NED PAK ([id number])[facility])[address] [place] [address] [place] MONOCYTES (10*3/UL) IN BLOOD BY MANUAL COUNT 0.3 10*3/uL Normal 0.0-0.8 [facility] Comment on above: Performed By: #### L [id number], [id number] ####Windows Infrastructure Engineer: NED PAK ([id number])[facility])[address] [place] [address] [place] MONOCYTES TOTAL PER COUNTED LEUKOCYTES BY MANUAL COUNT 2 Normal [facility] Comment on above: Performed By: #### L [id number], [id number] ####Windows Infrastructure Engineer: NED PAK ([id number])[facility])[address] [place] [address] [place] MONOCYTES/100 LEUKOCYTES IN BLOOD BY MANUAL COUNT 2 % Normal 2-10 [facility] Comment on above: Performed By: #### L BE7254, [id number] ####Windows Infrastructure Engineer: NED PAK ([id number])[facility])[address] [place] [address] [place] NEUTROPHILS (SEGS+BANDS) (10*3/UL) BY MANUAL COUNT 12.4 10*3/uL High 1.8-7.0 [facility] Comment on above: Performed By: #### L [id number], [id number] ####Windows Infrastructure Engineer: NED PAK ([id number])[facility])[address] [place] [address] [place] NEUTROPHILS BAND FORM/100 LEUKOCYTES IN BLOOD BY MANUAL COUNT 3 % High <=0 [facility] Comment on above: Performed By: #### L [id number], [id number] ####Windows Infrastructure Engineer: NED PAK ([id number])[facility] ([facility])[address] [place] [address] [place] NEUTROPHILS TOTAL PER COUNTED LEUKOCYTES BY MANUAL COUNT 70 Normal [facility] Comment on above: Performed By: #### L [id number], [id number] ####Windows Infrastructure Engineer: NED PAK ([id number])[facility] ([facility])[address] [place] [address] [place] OVALOCYTES PRESENCE IN BLOOD BY LIGHT MICROSCOPY Slight Abnormal (none) [facility] Comment on above: Performed By: #### L [id number], [id number] ####Windows Infrastructure Engineer: NED PAK ([id number])[facility] ([facility])[address] [place] [address] PLATELET MORPHOLOGY IN BLOOD Normal Normal [facility] Comment on above: Performed By: #### L [id number], [id number] ####Windows Infrastructure Engineer: NED PAK ([id number])[facility] ([facility])[address] [place] [address] [place] POIKILOCYTOSIS (PRESENCE) IN BLOOD BY LIGHT MICROSCOPY Slight Abnormal (none) [facility] Comment on above: Performed By: #### L [id number], [id number] ####Windows Infrastructure Engineer: NED PAK ([id number])[facility] ([facility])[address] [place] [address] [place] POLYCHROMASIA IN BLOOD BY LIGHT MICROSCOPY Rare Abnormal (none) [facility] Comment on above: Performed By: #### L [id number], [id number] ####Windows Infrastructure Engineer: NED PAK ([id number])[facility] ([facility])[address] [place] [address] [place] SEGEMENTED NEUTROPHILS/100 LEUKOCYTES BY MANUAL COUNT 70 % Normal 40-80 [facility] Comment on above: Performed By: #### L [id number], [id number] ####Windows Infrastructure Engineer: NED PAK ([id number])[facility] ([facility])[address] [place] [address] [place] SEGMENTED NEUTROPHILS (10*3/UL)IN BLOOD BY MANUAL COUNT 12.4 10*3/uL High 1.8-7.0 [facility] Comment on above: Performed By: #### L [id number], [id number] ####Windows Infrastructure Engineer: NED PAK ([id number])[facility])[address] [place] [address] VACUOLATED NEUTROPHILS PRESENCE IN BLOOD BY LIGHT MICROSCOPY (PRESENT) Present Abnormal (none) [facility] Comment on above: Performed By: #### L [id number], [id number] ####Windows Infrastructure Engineer: NED PAK ([id number])[address] PROCALCITONIN TESTon 023 PROCALCITONIN 0.14 ng/mL High 0.00-0.09 [facility] Comment on above: Result Comment: ORDE R COMMENTS:PCT <0.50 = Low risk of severe sepsis and/or septic shock.PCT >2.00 = High risk of severe sepsis and/or septic shock. Performed By: #### L [id number] ####Windows Infrastructure Engineer: NED PAK ([id number])[address] Progress Noteon 12-23-2022 Progress Note Normal [facility] Progress Note Normal [facility] Progress Note Normal [facility] Progress [facility] Normal [facility] Progress Note Vancomycin therapy h as been discontinued by Dr. Howard on 12/23. Thank you for the consult. Pharmacy signing off for vancomycin dosing. [address] [facility], PharmD Date: 12/23/22 Time: 7:42 AM Normal [facility] Progress Note Normal [facility] URINE CULTUREon 12-23-2022 Bacteria identified Cx Nom (U) Normal [facility] Comment on above: Performed By: #### L AB239 ####Windows Infrastructure Engineer: NED PAK ([id number])[address] VANCOMYCIN, RANDOMon 023 VANCOMYCIN 5.3 ug/mL Low 15.0-20.0 [facility] Comment on above: Order Comment: Alphonse gonzalez draw random vancomycin level @ 0400 on 12-23-22. Thank you. Performed By: #### L AB40, LAB15 ####Windows Infrastructure Engineer: NED PAK ([id number])[facility] ([facility])[address] [place] [address] XR CHEST 1 VIEWon 12-23-2022 XR CHEST 1 VIEW Normal [facility] ANTI-XA LEVEL, LMWHon 2022 ANTI-XA TREATMENT INDICATION Prophylactic Normal [facility] Comment on above: Performed By: #### L AB510 ####Windows Infrastructure Engineer: NED PAK ([id number])[facility] ([facility])[address] [place] [address] ANTI-XA, LMWH/UFH 0.4 IU/mL Normal 0.2-0.5 [Prophylac tic] [facility] Comment on above: Performed By: #### L AB510 ####Windows Infrastructure Engineer: NED PAK ([id number])[facility] ([facility])[address] [place] [address] APTTon 12-22-2022 aPTT Coag (Bld) [Time] 25.2 s Normal 20.0-30.5 [facility] Comment on above: Result Comment: SANDRA Baker COMMENTS:NOTE: The therapeutic time for Heparin anticoagulation, based on Xa activity inhibition, is an APTT of 46-80 seconds. Performed By: #### L AB325 ####Windows Infrastructure Engineer: NED PAK ([id number])[facility] ([facility])[address] [place] [address] BASIC METABOLIC PANELon 10-0 Anion gap [Moles/Vol] 7 mmol/L Normal 3-13 [facility] Comment on above: Performed By: #### L AB40, LAB15 ####Windows Infrastructure Engineer: NED PAK ([id number])[facility] ([facility])[address] [place] [address] Calcium [Mass/Vol] 8.3 mg/dL Low 8.4-10.4 [facility] Comment on above: Performed By: #### L AB40, LAB15 ####Windows Infrastructure Engineer: NED PAK ([id number])[facility] ([facility])[address] [place] [address] Chloride [Moles/Vol] 110 mmol/L High 98-107 [facility] Comment on above: Performed By: #### L AB40, LAB15 ####Windows Infrastructure Engineer: NED PAK ([id number])[facility] ([facility])[address] [place] [address] CO2 [Moles/Vol] 27 mmol/L Normal 22-30 [facility] Comment on above: Performed By: #### L AB40, LAB15 ####Windows Infrastructure Engineer: NED PAK ([id number])[facility] ([facility])[address] [place] [address] Creatinine [Mass/Vol] 0.50 mg/dL Low 0.52-1.04 [facility] Comment on above: Performed By: #### L AB40, LAB15 ####Windows Infrastructure Engineer: NED PAK ([id number])[facility] ([facility])[address] [place] [address] GLOMERULAR FILTRATION RATE ML/MIN/1.73 SQ M.PREDICTED 83.8 mL/min/1.73m*2 Normal >60.0 [facility] Comment on above: Result Comment: Calc ulation based on the Chronic Kidney Disease Epidemiology Collaboration (CKD-EPI) equation refit without adjustment for race Performed By: #### L AB40, LAB15 ####Windows Infrastructure Engineer: NED PAK ([id number])[facility] ([facility])[address] [place] [address] [place] Glucose [Mass/Vol] 136 mg/dL High 70-100 [facility] Comment on above: Performed By: #### L AB40, LAB15 ####Windows Infrastructure Engineer: NED PAK ([id number])[facility])[address] [place] [address] [place] Potassium [Moles/Vol] 3.8 mmol/L Normal 3.5-5.1 [facility] Comment on above: Performed By: #### L AB40, LAB15 ####Windows Infrastructure Engineer: NED PAK ([id number])[facility])[address] [place] [address] Sodium [Moles/Vol] 143 mmol/L Normal 135-145 [facility] Comment on above: Performed By: #### L AB40, LAB15 ####Windows Infrastructure Engineer: NED PAK ([id number])[facility] ([facility])[address] [place] [address] Urea nitrogen [Mass/Vol] 21 mg/dL High 7-17 [facility] Comment on above: Performed By: #### L AB40, LAB15 ####Windows Infrastructure Engineer: NED PAK ([id number])[facility])[address] [place] [address] CARECOORDon 12-22-2022 CARECOORD Normal [facility] CARECOORD Normal [facility] CBC WITH AUTO DIFFERENTIALon 12-22-2022 Erythrocyte distribution width (RBC) [Ratio] 13.9 % Normal 11.5-14.5 [facility] Comment on above: Performed By: #### L [id number], [id number] ####Windows Infrastructure Engineer: NED PAK ([id number])[facility])[address] [place] [address] ERYTHROCYTE MEAN CORPUSCULAR HEMOGLOBIN CONCENTRATION (G/DL) BY AUTOMATED 34.2 % Normal 32.0-36.0 [facility] Comment on above: Performed By: #### L [id number], [id number] ####Windows Infrastructure Engineer: NED PAK ([id number])[facility])[address] [place] [address] Hematocrit (Bld) [Volume fraction] 24.0 % Low 35.0-47.0 [facility] Comment on above: Performed By: #### L [id number], [id number] ####Windows Infrastructure Engineer: NED PAK ([id number])[facility])[address] [place] [address] Hemoglobin (Bld) [Mass/Vol] 8.2 g/dL Low 11.7-16.0 [facility] Comment on above: Performed By: #### L VV8571, [id number] ####Windows Infrastructure Engineer: NED PAK ([id number])[facility])[address] [place] [address] MCH (RBC) [Entitic mass] 29.7 pg Normal 26.0-34.0 [facility] Comment on above: Performed By: #### L ZN4354, [id number] ####Windows Infrastructure Engineer: NED PAK ([id number])[facility])[address] [place] [address] MCV (RBC) [Entitic vol] 87.1 fL Normal 80.0-98.0 [facility] Comment on above: Performed By: #### [place] TF8705, OCS1469 ####Windows Infrastructure Engineer: NED PAK ([id number])[facility])[address] [place] [address] NRBC (PER 100 WBCS) BY AUTOMATED COUNT 0.1 /100 WBCs Normal 0.0-2.0 [facility] Comment on above: Performed By: #### L [id number], [id number] ####Windows Infrastructure Engineer: NED PAK ([id number])[facility])[address] [place] [address] Platelet mean volume (Bld) [Entitic vol] 7.6 fL Normal 7.4-12.4 [facility] Comment on above: Performed By: #### L [id number], [id number] ####Windows Infrastructure Engineer: NED PAK ([id number])[facility])[address] [place] [address] PLATELETS (10*3/UL) IN BLOOD AUTOMATED COUNT 244 10*3/uL Normal 140-440 [facility] Comment on above: Performed By: #### L RO1056, [id number] ####Windows Infrastructure Engineer: NED PAK ([id number])[facility] ([facility])[address] [place] [address] RBC (Bld) [#/Vol] 2.76 10*6/uL Low 3.8-5.20 [facility] Comment on above: Performed By: #### L [id number], [id number] ####Windows Infrastructure Engineer: NED PAK ([id number])[facility] ([facility])[address] [place] [address] WBC (Bld) [#/Vol] 15.6 10*3/uL High 3.6-10.7 [facility] Comment on above: Performed By: #### L [id number], [id number] ####Windows Infrastructure Engineer: NED PAK ([id number])[facility] ([facility])[address] [place] [address] COMPLETE URINALYSISon 2022 BACTERIA (#/HPF) IN URINE Few Abnormal Negative [facility] Comment on above: Performed By: #### L AB347 ####Windows Infrastructure Engineer: NED PAK ([id number])[facility] ([facility])[address] [place] [address] BILIRUBIN, TOTAL PRESENCE IN URINE Negative Normal Negative [facility] Comment on above: Performed By: #### L AB347 ####Windows Infrastructure Engineer: NED PAK ([id number])[facility])[address] [place] [address] Clarity (U) Clear Normal Clear [facility] Comment on above: Performed By: #### L AB347 ####Windows Infrastructure Engineer: NED PAK ([id number])[facility])[address] [place] [address] Color (U) Light Yellow Normal Lt. Yellow [facility] Comment on above: Performed By: #### L AB347 ####Windows Infrastructure Engineer: NED PAK ([id number])[facility])[address] [place] [address] GLUCOSE (MG/DL) IN URINE Normal Normal Normal (<70) [facility] Comment on above: Performed By: #### L AB347 ####Windows Infrastructure Engineer: NED PAK ([id number])[facility])[address] [place] [address] HEMOGLOBIN PRESENCE IN URINE 0.1 mg/dL Abnormal Negative [facility] Comment on above: Performed By: #### L AB347 ####Windows Infrastructure Engineer: NED PAK ([id number])[facility] ([facility])[address] [place] [address] HYALINE CASTS (#/LPF) IN URINE SEDIMENT BY MICROSCOPY Negative Normal Negative [facility] Comment on above: Performed By: #### L [id number] ####Windows Infrastructure Engineer: NED PAK ([id number])[facility] ([facility])[address] [place] [address] Ketones Ql (U) Negative Normal Negative [facility] Comment on above: Performed By: #### L [id number] ####Windows Infrastructure Engineer: NED PAK ([id number])[facility] ([facility])[address] [place] [address] LEUKOCYTE ESTERASE PRESENCE IN URINE BY TEST STRIP Negative Normal Negative [facility] Comment on above: Performed By: #### L [id number] ####Windows Infrastructure Engineer: NED PAK ([id number])[facility] ([facility])[address] [place] [address] NITRITE PRESENCE IN URINE Negative Normal Negative [facility] Comment on above: Performed By: #### L [id number] ####Windows Infrastructure Engineer: NED PAK ([id number])[facility] ([facility])[address] [place] [address] pH (U) 7.0 [pH] Normal 5.0-8.0 [facility] Comment on above: Performed By: #### L [id number] ####Windows Infrastructure Engineer: NED PAK ([id number])[facility] ([facility])[address] [place] [address] Protein (U) [Mass/Vol] 20 mg/dL Abnormal Negative [facility] Comment on above: Performed By: #### L [id number] ####Windows Infrastructure Engineer: NED PAK ([id number])[facility])[address] [place] [address] RBC (#/HPF) IN URINE SEDIMENT 11-25 Abnormal 0-2 [facility] Comment on above: Performed By: #### L [id number] ####Windows Infrastructure Engineer: NED PAK ([id number])[facility])[address] [place] [address] Specific gravity (U) [Rel density] 1.016 Normal 1.005-1.03 0 [facility] Comment on above: Performed By: #### L [id number] ####Windows Infrastructure Engineer: NED PAK ([id number])[facility])[address] [place] [address] SQUAMOUS EPITHELIAL CELLS (#/HPF) IN URINE SEDIMENT Negative Normal 3-5 [facility] Comment on above: Performed By: #### L [id number] ####Windows Infrastructure Engineer: NED PAK ([id number])[facility])[address] [place] [address] UROBILINOGEN (MG/DL) IN URINE Normal Normal Normal (0-1) [facility] Comment on above: Performed By: #### L [id number] ####Windows Infrastructure Engineer: NED PAK ([id number])[facility])[address] [place] [address] WBC (LEUKOCYTE) (#/HPF) IN URINE SEDIMENT 6-10 Abnormal 0-5 [facility] Comment on above: Performed By: #### L [id number] ####Windows Infrastructure Engineer: NED PAK ([id number])[facility])[address] [place] [address] MANUAL DIFFERENTIALon 2022 CELLS COUNTED TOTAL (#) IN BLOOD 100 Normal [facility] Comment on above: Performed By: #### L [id number], [id number] ####Windows Infrastructure Engineer: NED PAK ([id number])[facility] [place] [address] [place] DIFFERENTIAL METHOD Manual differential performed Normal [facility] Comment on above: Performed By: #### L [id number], [id number] ####Windows Infrastructure Engineer: NED PAK ([id number])[facility] ([facility])[address] [place] [address] LEUKOCYTES (10*3/UL) NUCLEATED ERYTHROCYTE ADJUST 15.6 10*3/uL High 3.6-10.7 [facility] Comment on above: Performed By: #### L [id number], [id number] ####Windows Infrastructure Engineer: NED PAK ([id number])[facility] ([facility])[address] [place] [address] LYMPHOCYTES (10*3/UL) IN BLOOD BY MANUAL COUNT 1.7 10*3/uL Normal 1.0-4.3 [facility] Comment on above: Performed By: #### L [id number], [id number] ####Windows Infrastructure Engineer: NED PAK ([id number])[facility] [place] [address] LYMPHOCYTES TOTAL PER COUNTED LEUKOCYTES BY MANUAL COUNT 11 Normal [facility] Comment on above: Performed By: #### L [id number], [id number] ####Windows Infrastructure Engineer: NED PAK ([id number])[facility] ([facility])[address] [place] [address] [place] LYMPHOCYTES/100 LEUKOCYTES IN BLOOD BY MANUAL COUNT 11 % Low 20-40 [facility] Comment on above: Performed By: #### L [id number], [id number] ####Windows Infrastructure Engineer: NED PAK ([id number])[facility] ([facility])[address] [place] [address] [place] MONOCYTES (10*3/UL) IN BLOOD BY MANUAL COUNT 0.3 10*3/uL Normal 0.0-0.8 [facility] Comment on above: Performed By: #### L [id number], [id number] ####Windows Infrastructure Engineer: NED PAK ([id number])[facility] ([facility])[address] [place] [address] [place] MONOCYTES TOTAL PER COUNTED LEUKOCYTES BY MANUAL COUNT 2 Normal [facility] Comment on above: Performed By: #### L [id number], [id number] ####Windows Infrastructure Engineer: NED PAK ([id number])[facility])[address] [place] [address] [place] MONOCYTES/100 LEUKOCYTES IN BLOOD BY MANUAL COUNT 2 % Normal 2-10 [facility] Comment on above: Performed By: #### L [id number], [id number] ####Windows Infrastructure Engineer: NED PAK ([id number])[facility])[address] [place] [address] [place] MYELOCYTES (10*3/UL) IN BLOOD BY MANUAL COUNT 0.2 10*3/uL High <=0.0 [facility] Comment on above: Performed By: #### L [id number], [id number] ####Windows Infrastructure Engineer: NED PAK ([id number])[facility] ([facility])[address] [place] [address] [place] MYELOCYTES COUNTED BY MANUAL COUNT 1 Normal [facility] Comment on above: Performed By: #### L [id number], [id number] ####Windows Infrastructure Engineer: NED PAK ([id number])[facility])[address] [place] [address] [place] MYELOCYTES/100 LEUKOCYTES IN BLOOD BY MANUAL COUNT 1 % High <=0 [facility] Comment on above: Performed By: #### L [id number], [id number] ####Windows Infrastructure Engineer: NED PAK ([id number])[facility])[address] [place] [address] [place] NEUTROPHILS (SEGS+BANDS) (10*3/UL) BY MANUAL COUNT 13.4 10*3/uL High 1.8-7.0 [facility] Comment on above: Performed By: #### L [id number], [id number] ####Windows Infrastructure Engineer: NED PAK ([id number])[facility] ([facility])[address] [place] [address] [place] NEUTROPHILS TOTAL PER COUNTED LEUKOCYTES BY MANUAL COUNT 86 Normal [facility] Comment on above: Performed By: #### L [id number], [id number] ####Windows Infrastructure Engineer: NED PAK ([id number])[facility])[address] [place] [address] [place] NUCLEATED ERYTHROCYTES/100 LEUKOCYTES IN BLOOD BY MANUAL COUNT 2 % Normal [facility] Comment on above: Performed By: #### L [id number], [id number] ####Windows Infrastructure Engineer: NED PAK ([id number])[facility] ([facility])[address] [place] [address] OVALOCYTES PRESENCE IN BLOOD BY LIGHT MICROSCOPY Slight Abnormal (none) [facility] Comment on above: Performed By: #### L [id number], [id number] ####Windows Infrastructure Engineer: NED PAK ([id number])[facility])[address] [place] [address] PLATELET MORPHOLOGY IN BLOOD Normal Normal [facility] Comment on above: Performed By: #### L [id number], [id number] ####Windows Infrastructure Engineer: NED PAK ([id number])[facility] ([facility])[address] [place] [address] [place] POIKILOCYTOSIS (PRESENCE) IN BLOOD BY LIGHT MICROSCOPY Slight Abnormal (none) [facility] Comment on above: Performed By: #### L [id number], [id number] ####Windows Infrastructure Engineer: NED PAK ([id number])[facility] ([facility])[address] [place] [address] [place] POLYCHROMASIA IN BLOOD BY LIGHT MICROSCOPY Slight Abnormal (none) [facility] Comment on above: Performed By: #### L [id number], [id number] ####Windows Infrastructure Engineer: NED PAK ([id number])[facility])[address] [place] [address] [place] SEGEMENTED NEUTROPHILS/100 LEUKOCYTES BY MANUAL COUNT 86 % High 40-80 [facility] Comment on above: Performed By: #### L [id number], [id number] ####Windows Infrastructure Engineer: NED PAK ([id number])[facility])[address] [place] [address] VACUOLATED NEUTROPHILS PRESENCE IN BLOOD BY LIGHT MICROSCOPY (PRESENT) Present Abnormal (none) [facility] Comment on above: Performed By: #### L [id number], [id number] ####Windows Infrastructure Engineer: NED PAK ([id number])[facility] ([facility])[address] [place] [address] MRSA BY PCRon 12-22-2022 MRSA BY PCR Normal [facility] Comment on above: Performed By: #### L [id number] ####Windows Infrastructure Engineer: NED PAK ([id number])[facility] ([facility])[address] [place] [address] Progress Noteon 12-22-2022 Progress Note Normal [facility] Progress Note Normal [facility] Progress Note Normal [facility] Progress Note Normal [facility] Progress Note Normal [facility] Progress Note Normal [facility] Progress Note Normal [facility] Progress Note Normal [facility] VANCOMYCIN, RANDOMon 023 VANCOMYCIN 8.2 ug/mL Low 15.0-20.0 [facility] Comment on above: Order Comment: Alphonse gonzalez draw random vancomycin level with AM labs. Please ensure level is >2 hours after the end of the most recent vancomycin infusion. Do not draw while vanc is infusing. Thanks! Performed By: #### L AB40, LAB15 ####Windows Infrastructure Engineer: NED PAK ([id number])[facility] [place] [address] XR ABDOMEN 1 VIEWon 12-23-19 23 XR ABDOMEN 1 VIEW Normal [facility] APTTon 12-21-2022 aPTT Coag (Bld) [Time] 27.8 s Normal 20.0-30.5 [facility] Comment on above: Result Comment: BASILE R COMMENTS:NOTE: The therapeutic time for Heparin anticoagulation, based on Xa activity inhibition, is an APTT of 46-80 seconds. Performed By: #### L AB325 ####Windows Infrastructure Engineer: NED PAK ([id number])[facility] ([facility])[address] [place] [address] BASIC METABOLIC PANELon 10-0 -2022 Anion gap [Moles/Vol] 5 mmol/L Normal 3-13 [facility] Comment on above: Performed By: #### L AB15 ####Windows Infrastructure Engineer: NED PAK ([id number])[facility] ([facility])[address] [place] [address] Calcium [Mass/Vol] 8.2 mg/dL Low 8.4-10.4 [facility] Comment on above: Performed By: #### L AB15 ####Windows Infrastructure Engineer: NED PAK ([id number])[facility])[address] [place] [address] Chloride [Moles/Vol] 114 mmol/L High 98-107 [facility] Comment on above: Performed By: #### L AB15 ####Windows Infrastructure Engineer: NED PAK ([id number])[facility] ([facility])[address] [place] [address] CO2 [Moles/Vol] 25 mmol/L Normal 22-30 [facility] Comment on above: Performed By: #### L AB15 ####Windows Infrastructure Engineer: NED PAK ([id number])[facility])[address] [place] [address] Creatinine [Mass/Vol] 0.64 mg/dL Normal 0.52-1.04 [facility] Comment on above: Performed By: #### L AB15 ####Windows Infrastructure Engineer: NED PAK ([id number])[facility])[address] [place] [address] [place] GLOMERULAR FILTRATION RATE ML/MIN/1.73 SQ M.PREDICTED 79.0 mL/min/1.73m*2 Normal >60.0 [facility] Comment on above: Result Comment: Calc ulation based on the Chronic Kidney Disease Epidemiology Collaboration (CKD-EPI) equation refit without adjustment for race Performed By: #### L AB15 ####Windows Infrastructure Engineer: NED PAK ([id number])[facility] ([facility])[address] [place] [address] Glucose [Mass/Vol] 169 mg/dL High 70-100 [facility] Comment on above: Performed By: #### L AB15 ####Windows Infrastructure Engineer: NED PAK ([id number])[facility] ([facility])[address] [place] [address] Potassium [Moles/Vol] 3.8 mmol/L Normal 3.5-5.1 [facility] Comment on above: Performed By: #### L AB15 ####Windows Infrastructure Engineer: NED PAK ([id number])[facility] ([facility])[address] [place] [address] Sodium [Moles/Vol] 144 mmol/L Normal 135-145 [facility] Comment on above: Performed By: #### L AB15 ####Windows Infrastructure Engineer: NED PAK ([id number])[facility] ([facility])[address] [place] [address] Urea nitrogen [Mass/Vol] 23 mg/dL High 7-17 [facility] Comment on above: Performed By: #### L AB15 ####Windows Infrastructure Engineer: NED PAK ([id number])[facility] ([facility])[address] [place] [address] BLOOD CULTUREon 12-21-2022 Bacteria identified Cx Nom (Bld) Normal [facility] Comment on above: Performed By: #### L [id number] ####Windows Infrastructure Engineer: NED PAK ([id number])[facility] ([facility])[address] [place] [address] Bacteria identified Cx Nom (Bld) Normal [facility] Comment on above: Performed By: #### L [id number] ####Windows Infrastructure Engineer: NED PAK ([id number])[facility] ([facility])[address] [place] [address] CARECOORDon 12-21-2022 CARECOORD Normal [facility] CBC (HEMOGRAM)on 12-21-2022 Erythrocyte distribution width (RBC) [Ratio] 14.3 % Normal 11.5-14.5 [facility] Comment on above: Performed By: #### L [id number] ####Windows Infrastructure Engineer: NED PAK ([id number])[facility])[address] [place] [address] ERYTHROCYTE MEAN CORPUSCULAR HEMOGLOBIN CONCENTRATION (G/DL) BY AUTOMATED 33.1 % Normal 32.0-36.0 [facility] Comment on above: Performed By: #### L [id number] ####Windows Infrastructure Engineer: NED PAK ([id number])[facility])[address] [place] [address] Hematocrit (Bld) [Volume fraction] 26.4 % Low 35.0-47.0 [facility] Comment on above: Performed By: #### L [id number] ####Windows Infrastructure Engineer: NED PAK ([id number])[facility])[address] [place] [address] Hemoglobin (Bld) [Mass/Vol] 8.8 g/dL Low 11.7-16.0 [facility] Comment on above: Performed By: #### L [id number] ####Windows Infrastructure Engineer: NED PAK ([id number])[facility])[address] [place] [address] MCH (RBC) [Entitic mass] 29.3 pg Normal 26.0-34.0 [facility] Comment on above: Performed By: #### L [id number] ####Windows Infrastructure Engineer: NED PAK ([id number])[facility])[address] [place] [address] MCV (RBC) [Entitic vol] 88.5 fL Normal 80.0-98.0 [facility] Comment on above: Performed By: #### L [id number] ####Windows Infrastructure Engineer: NED PAK ([id number])[facility])[address] [place] [address] Platelet mean volume (Bld) [Entitic vol] 7.5 fL Normal 7.4-12.4 [facility] Comment on above: Performed By: #### L [id number] ####Windows Infrastructure Engineer: NED PAK ([id number])[facility])[address] [place] [address] PLATELETS (10*3/UL) IN BLOOD AUTOMATED COUNT 229 10*3/uL Normal 140-440 [facility] Comment on above: Performed By: #### L [id number] ####Windows Infrastructure Engineer: NED PAK ([id number])[facility])[address] [place] [address] RBC (Bld) [#/Vol] 2.99 10*6/uL Low 3.8-5.20 [facility] Comment on above: Performed By: #### L [id number] ####Windows Infrastructure Engineer: NED PAK ([id number])[facility])[address] [place] [address] WBC (Bld) [#/Vol] 13.7 10*3/uL High 3.6-10.7 [facility] Comment on above: Performed By: #### L [id number] ####Windows Infrastructure Engineer: NED PAK ([id number])[facility])[address] [place] [address] CBC WITH AUTO DIFFERENTIALon 12-21-2022 Erythrocyte distribution width (RBC) [Ratio] 14.5 % Normal 11.5-14.5 [facility] Comment on above: Performed By: #### L [id number], [id number] ####Windows Infrastructure Engineer: NED PAK ([id number])[facility])[address] [place] [address] ERYTHROCYTE MEAN CORPUSCULAR HEMOGLOBIN CONCENTRATION (G/DL) BY AUTOMATED 34.3 % Normal 32.0-36.0 [facility] Comment on above: Performed By: #### L [id number], [id number] ####Windows Infrastructure Engineer: NED PAK ([id number])[facility])[address] [place] [address] Hematocrit (Bld) [Volume fraction] 21.6 % Low 35.0-47.0 [facility] Comment on above: Performed By: #### L [id number], [id number] ####Windows Infrastructure Engineer: NED PAK ([id number])[facility])[address] [place] [address] Hemoglobin (Bld) [Mass/Vol] 7.4 g/dL Low 11.7-16.0 [facility] Comment on above: Performed By: #### L [id number], [id number] ####Windows Infrastructure Engineer: NED PAK ([id number])[facility])[address] [place] [address] MCH (RBC) [Entitic mass] 30.0 pg Normal 26.0-34.0 [facility] Comment on above: Performed By: #### L [id number], [id number] ####Windows Infrastructure Engineer: NED PAK ([id number])[address] MCV (RBC) [Entitic vol] 87.4 fL Normal 80.0-98.0 [facility] Comment on above: Performed By: #### Tameka [id number], [id number] ####Windows Infrastructure Engineer: NED PAK ([id number])[address] NRBC (PER 100 WBCS) BY AUTOMATED COUNT 0.1 /100 WBCs Normal 0.0-2.0 [facility] Comment on above: Performed By: #### L [id number], [id number] ####Windows Infrastructure Engineer: NED PAK ([id number])[address] Platelet mean volume (Bld) [Entitic vol] 7.7 fL Normal 7.4-12.4 [facility] Comment on above: Performed By: #### L [id number], [id number] ####Windows Infrastructure Engineer: NED PAK ([id number])[address] PLATELETS (10*3/UL) IN BLOOD AUTOMATED COUNT 164 10*3/uL Normal 140-440 [facility] Comment on above: Performed By: #### L [id number], [id number] ####Windows Infrastructure Engineer: NED PAK ([id number])[facility] ([facility])[address] [place] [address] RBC (Bld) [#/Vol] 2.47 10*6/uL Low 3.8-5.20 [facility] Comment on above: Performed By: #### L [id number], [id number] ####Windows Infrastructure Engineer: NED PAK ([id number])[facility] ([facility])[address] [place] [address] WBC (Bld) [#/Vol] 10.6 10*3/uL Normal 3.6-10.7 [facility] Comment on above: Performed By: #### L [id number], [id number] ####Windows Infrastructure Engineer: NED PAK ([id number])[facility] ([facility])[address] [place] [address] COMPLETE URINALYSISon 2022 BACTERIA (#/HPF) IN URINE Few Abnormal Negative [facility] Comment on above: Performed By: #### L [id number] ####Windows Infrastructure Engineer: NED PAK ([id number])[facility] ([facility])[address] [place] [address] BILIRUBIN, TOTAL PRESENCE IN URINE Negative Normal Negative [facility] Comment on above: Performed By: #### L [id number] ####Windows Infrastructure Engineer: NED PAK ([id number])[facility] ([facility])[address] [place] [address] Clarity (U) Clear Normal Clear [facility] Comment on above: Performed By: #### L [id number] ####Windows Infrastructure Engineer: NED PAK ([id number])[facility] ([facility])[address] [place] [address] Color (U) Light Yellow Normal Lt. Yellow [facility] Comment on above: Performed By: #### L [id number] ####Windows Infrastructure Engineer: NED PAK ([id number])[facility] [place] [address] GLUCOSE (MG/DL) IN URINE Normal Normal Normal (<70) [facility] Comment on above: Performed By: #### L [id number] ####Windows Infrastructure Engineer: NED PAK ([id number])[facility] [place] [address] HEMOGLOBIN PRESENCE IN URINE 0.06 mg/dL Abnormal Negative [facility] Comment on above: Performed By: #### L [id number] ####Windows Infrastructure Engineer: NED PAK ([id number])[facility] ([facility])[address] [place] [address] HYALINE CASTS (#/LPF) IN URINE SEDIMENT BY MICROSCOPY Negative Normal Negative [facility] Comment on above: Performed By: #### L [id number] ####Windows Infrastructure Engineer: NED PAK ([id number])[facility] [place] [address] Ketones Ql (U) Negative Normal Negative [facility] Comment on above: Performed By: #### L [id number] ####Windows Infrastructure Engineer: NED PAK ([id number])[facility] ([facility])[address] [place] [address] LEUKOCYTE ESTERASE PRESENCE IN URINE BY TEST STRIP Negative Normal Negative [facility] Comment on above: Performed By: #### L [id number] ####Windows Infrastructure Engineer: NED PAK ([id number])[facility] [place] [address] MUCUS (#/LPF) IN URINE SEDIMENT Few Normal Negative [facility] Comment on above: Performed By: #### L [id number] ####Windows Infrastructure Engineer: NED PAK ([id number])[facility] [place] [address] NITRITE PRESENCE IN URINE Negative Normal Negative [facility] Comment on above: Performed By: #### L [id number] ####Windows Infrastructure Engineer: NED PAK ([id number])[facility] ([facility])[address] [place] [address] pH (U) 5.5 [pH] Normal 5.0-8.0 [facility] Comment on above: Performed By: #### L [id number] ####Windows Infrastructure Engineer: NED PAK ([id number])[facility] ([facility])[address] [place] [address] Protein (U) [Mass/Vol] 50 mg/dL Abnormal Negative [facility] Comment on above: Performed By: #### L [id number] ####Windows Infrastructure Engineer: NED PAK ([id number])[facility] ([facility])[address] [place] [address] RBC (#/HPF) IN URINE SEDIMENT 0-2 Normal 0-2 [facility] Comment on above: Performed By: #### L [id number] ####Windows Infrastructure Engineer: NED PAK ([id number])[facility] ([facility])[address] [place] [address] Specific gravity (U) [Rel density] 1.026 Normal 1.005-1.03 0 [facility] Comment on above: Performed By: #### L [id number] ####Windows Infrastructure Engineer: NED PAK ([id number])[facility] ([facility])[address] [place] [address] SQUAMOUS EPITHELIAL CELLS (#/HPF) IN URINE SEDIMENT 0-2 Normal 3-5 [facility] Comment on above: Performed By: #### L [id number] ####Windows Infrastructure Engineer: NED PAK ([id number])[facility] ([facility])[address] [place] [address] [place] UROBILINOGEN (MG/DL) IN URINE Normal Normal Normal (0-1) [facility] Comment on above: Performed By: #### L [id number] ####Windows Infrastructure Engineer: NED PAK ([id number])[facility] ([facility])[address] [place] [address] WBC (LEUKOCYTE) (#/HPF) IN URINE SEDIMENT 0-2 Normal 0-5 [facility] Comment on above: Performed By: #### L [id number] ####Windows Infrastructure Engineer: NED PAK ([id number])[facility])[address] [place] [address] Consulton 12-21-2022 Consult Normal [facility] MANUAL DIFFERENTIALon 2022 BAND NEUTROPHILS (10*3/UL) BLOOD MANUAL COUNT 0.3 10*3/uL High <=0.0 [facility] Comment on above: Performed By: #### L [id number], [id number] ####Windows Infrastructure Engineer: NED PAK ([id number])[facility])[address] [place] [address] BAND NEUTROPHILS TOTAL PER COUNTED LEUKOCYTES BY MANUAL COUNT 3 Normal [facility] Comment on above: Performed By: #### L [id number], [id number] ####Windows Infrastructure Engineer: NED PAK ([id number])[facility])[address] [place] [address] CELLS COUNTED TOTAL (#) IN BLOOD 100 Normal [facility] Comment on above: Performed By: #### L [id number], [id number] ####Windows Infrastructure Engineer: NED PAK ([id number])[facility])[address] [place] [address] DIFFERENTIAL METHOD Manual differential performed Normal [facility] Comment on above: Performed By: #### L [id number], [id number] ####Windows Infrastructure Engineer: NED PAK ([id number])[facility])[address] [place] [address] LEUKOCYTES (10*3/UL) NUCLEATED ERYTHROCYTE ADJUST 10.6 10*3/uL Normal 3.6-10.7 [facility] Comment on above: Performed By: #### L [id number], [id number] ####Windows Infrastructure Engineer: NED PAK ([id number])[facility])[address] [place] [address] LYMPHOCYTES (10*3/UL) IN BLOOD BY MANUAL COUNT 1.6 10*3/uL Normal 1.0-4.3 [facility] Comment on above: Performed By: #### L [id number], [id number] ####Windows Infrastructure Engineer: NED PAK ([id number])[facility])[address] [place] [address] [place] LYMPHOCYTES TOTAL PER COUNTED LEUKOCYTES BY MANUAL COUNT 15 Normal [facility] Comment on above: Performed By: #### L [id number], [id number] ####Windows Infrastructure Engineer: NED PAK ([id number])[facility] ([facility])[address] [place] [address] [place] LYMPHOCYTES/100 LEUKOCYTES IN BLOOD BY MANUAL COUNT 15 % Low 20-40 [facility] Comment on above: Performed By: #### L [id number], [id number] ####Windows Infrastructure Engineer: NED PAK ([id number])[facility])[address] [place] [address] [place] METAMYELOCYTES (10*3/UL) IN BLOOD BY MANUAL COUNT 0.1 10*3/uL High <=0.0 [facility] Comment on above: Performed By: #### L [id number], [id number] ####Windows Infrastructure Engineer: NED PAK ([id number])[facility])[address] [place] [address] [place] METAMYELOCYTES TOTAL PER COUNTED LEUKOCYTES BY MANUAL COUNT 1 Normal [facility] Comment on above: Performed By: #### L [id number], [id number] ####Windows Infrastructure Engineer: NED PAK ([id number])[facility])[address] [place] [address] [place] METAMYELOCYTES/100 LEUKOCYTES IN BLOOD BY MANUAL COUNT 1 % High <=0 [facility] Comment on above: Performed By: #### L [id number], [id number] ####Windows Infrastructure Engineer: NED PAK ([id number])[facility])[address] [place] [address] [place] MONOCYTES (10*3/UL) IN BLOOD BY MANUAL COUNT 0.2 10*3/uL Normal 0.0-0.8 [facility] Comment on above: Performed By: #### L [id number], [id number] ####Windows Infrastructure Engineer: NED PAK ([id number])[facility])[address] [place] [address] [place] MONOCYTES TOTAL PER COUNTED LEUKOCYTES BY MANUAL COUNT 2 Normal [facility] Comment on above: Performed By: #### L [id number], [id number] ####Windows Infrastructure Engineer: NED PAK ([id number])[facility])[address] [place] [address] [place] MONOCYTES/100 LEUKOCYTES IN BLOOD BY MANUAL COUNT 2 % Normal 2-10 [facility] Comment on above: Performed By: #### L [id number], [id number] ####Windows Infrastructure Engineer: NDE PAK ([id number])[facility])[address] [place] [address] MYELOCYTES (10*3/UL) IN BLOOD BY MANUAL COUNT 0.1 10*3/uL High <=0.0 [facility] Comment on above: Performed By: #### L [id number], [id number] ####Windows Infrastructure Engineer: NED PAK ([id number])[facility])[address] [place] [address] MYELOCYTES COUNTED BY MANUAL COUNT 1 Normal [facility] Comment on above: Performed By: #### L [id number], [id number] ####Windows Infrastructure Engineer: NED PAK ([id number])[facility])[address] [place] [address] [place] MYELOCYTES/100 LEUKOCYTES IN BLOOD BY MANUAL COUNT 1 % High <=0 [facility] Comment on above: Performed By: #### L [id number], [id number] ####Windows Infrastructure Engineer: NED PAK ([id number])[facility])[address] [place] [address] [place] NEUTROPHILS (SEGS+BANDS) (10*3/UL) BY MANUAL COUNT 8.6 10*3/uL High 1.8-7.0 [facility] Comment on above: Performed By: #### L [id number], [id number] ####Windows Infrastructure Engineer: NED PAK ([id number])[facility] [place] [address] [place] NEUTROPHILS BAND FORM/100 LEUKOCYTES IN BLOOD BY MANUAL COUNT 3 % High <=0 [facility] Comment on above: Performed By: #### L [id number], [id number] ####Windows Infrastructure Engineer: NED PAK ([id number])[facility] ([facility])[address] [place] [address] [place] NEUTROPHILS TOTAL PER COUNTED LEUKOCYTES BY MANUAL COUNT 78 Normal [facility] Comment on above: Performed By: #### L [id number], [id number] ####Windows Infrastructure Engineer: NED PAK ([id number])[facility] ([facility])[address] [place] [address] OVALOCYTES PRESENCE IN BLOOD BY LIGHT MICROSCOPY Slight Abnormal (none) [facility] Comment on above: Performed By: #### L [id number], [id number] ####Windows Infrastructure Engineer: NED PAK ([id number])[facility] ([facility])[address] [place] [address] [place] PLATELET MORPHOLOGY IN BLOOD Normal Normal [facility] Comment on above: Performed By: #### L [id number], [id number] ####Windows Infrastructure Engineer: NED PAK ([id number])[facility] ([facility])[address] [place] [address] [place] POIKILOCYTOSIS (PRESENCE) IN BLOOD BY LIGHT MICROSCOPY Slight Abnormal (none) [facility] Comment on above: Performed By: #### L [id number], [id number] ####Windows Infrastructure Engineer: NED PAK ([id number])[facility] ([facility])[address] [place] [address] [place] POLYCHROMASIA IN BLOOD BY LIGHT MICROSCOPY Slight Abnormal (none) [facility] Comment on above: Performed By: #### L [id number], [id number] ####Windows Infrastructure Engineer: NED PAK ([id number])[facility] ([facility])[address] [place] [address] [place] SEGEMENTED NEUTROPHILS/100 LEUKOCYTES BY MANUAL COUNT 78 % Normal 40-80 [facility] Comment on above: Performed By: #### L [id number], [id number] ####Windows Infrastructure Engineer: NED PAK ([id number])[facility])[address] [place] [address] SEGMENTED NEUTROPHILS (10*3/UL)IN BLOOD BY MANUAL COUNT 8.6 10*3/uL High 1.8-7.0 [facility] Comment on above: Performed By: #### L [id number], [id number] ####Windows Infrastructure Engineer: NDE PAK ([id number])[facility])[address] [place] [address] VACUOLATED NEUTROPHILS PRESENCE IN BLOOD BY LIGHT MICROSCOPY (PRESENT) Present Abnormal (none) [facility] [employer] [facility] Comment on above: Performed By: #### L [id number], [id number] ####Windows Infrastructure Engineer: NED PAK ([id number])[address] No Panel Informationon 12-21 Status Transfused [facility] PLASMA STATUSon 12-21-2022 Blood Product Code [id number] [facility] Blood Product Description FFP [facility] Blood product unit Nom (BPU) [ID] [id number] [facility] Blood Product Unit Type 6200 [facility] Comment on above: A Pos PROCALCITONIN TESTon 023 PROCALCITONIN 0.18 ng/mL High 0.00-0.09 [facility] Comment on above: Result Comment: ORDE R COMMENTS:PCT <0.50 = Low risk of severe sepsis and/or septic shock.PCT >2.00 = High risk of severe sepsis and/or septic shock. Performed By: #### L [id number] ####Windows Infrastructure Engineer: NED PAK ([id number])[facility])[address] [place] [address] PROCALCITONIN 0.19 ng/mL High 0.00-0.09 [facility] Comment on above: Result Comment: ORDE R COMMENTS:PCT <0.50 = Low risk of severe sepsis and/or septic shock.PCT >2.00 = High risk of severe sepsis and/or septic shock. Performed By: #### L [id number] ####Windows Infrastructure Engineer: NED PAK ([id number])[facility])[address] [place] [address] Progress Noteon 12-21-2022 Progress Note Normal [facility] Progress Note Normal [facility] Progress [facility] Normal [facility] Progress Note Normal [facility] RED BLOOD CELL UNIT STATUSon 12-21-2022 Blood Product Code [id number] [facility] Blood Product Description Red Blood Cells [facility] Blood product unit Nom (BPU) [ID] [id number] [facility] Blood Product Unit Type 9500 [facility] Comment on above: O Neg Major crossmatch [Interp] Compatible (IS) [facility] Comment on above: Emergency Transfusio n - Transfused Uncrossmatched XR CHEST 1 VIEWon 12-21-2022 XR CHEST 1 VIEW Normal [facility] BASIC METABOLIC PANELon 10-0 Anion gap [Moles/Vol] 6 mmol/L Normal 3-13 [facility] Comment on above: Performed By: #### L AB15 ####Windows Infrastructure Engineer: NED PAK ([id number])[facility])[address] [place] [address] Calcium [Mass/Vol] 8.4 mg/dL Normal 8.4-10.4 [facility] Comment on above: Performed By: #### L AB15 ####Windows Infrastructure Engineer: NED PAK ([id number])[facility] ([facility])[address] [place] [address] Chloride [Moles/Vol] 117 mmol/L High 98-107 [facility] Comment on above: Performed By: #### L AB15 ####Windows Infrastructure Engineer: NED PAK ([id number])[facility] ([facility])[address] [place] [address] CO2 [Moles/Vol] 22 mmol/L Normal 22-30 [facility] Comment on above: Performed By: #### L AB15 ####Windows Infrastructure Engineer: NED PAK ([id number])[facility])[address] [place] [address] Creatinine [Mass/Vol] 0.68 mg/dL Normal 0.52-1.04 [facility] Comment on above: Performed By: #### L AB15 ####Windows Infrastructure Engineer: NED PAK ([id number])[facility])[address] [place] [address] GLOMERULAR FILTRATION RATE ML/MIN/1.73 SQ M.PREDICTED 77.9 mL/min/1.73m*2 Normal >60.0 [facility] Comment on above: Result Comment: Calc ulation based on the Chronic Kidney Disease Epidemiology Collaboration (CKD-EPI) equation refit without adjustment for race Performed By: #### L AB15 ####Windows Infrastructure Engineer: NED PAK ([id number])[facility])[address] [place] [address] Glucose [Mass/Vol] 152 mg/dL High 70-100 [facility] Comment on above: Performed By: #### L AB15 ####Windows Infrastructure Engineer: NED PAK ([id number])[facility])[address] [place] [address] Potassium [Moles/Vol] 3.6 mmol/L Normal 3.5-5.1 [facility] Comment on above: Performed By: #### L AB15 ####Windows Infrastructure Engineer: NED PAK ([id number])[facility])[address] [place] [address] Sodium [Moles/Vol] 144 mmol/L Normal 135-145 [facility] Comment on above: Performed By: #### L AB15 ####Windows Infrastructure Engineer: NED PAK ([id number])[facility])[address] [place] [address] Urea nitrogen [Mass/Vol] 17 mg/dL Normal 7-17 [facility] Comment on above: Performed By: #### L AB15 ####Windows Infrastructure Engineer: NED PAK ([id number])[facility])[address] [place] [address] CBC WITH AUTO DIFFERENTIALon 12-20-2022 Basophils (Bld) [#/Vol] 0.0 10*3/uL Normal 0.0-0.2 [facility] Comment on above: Performed By: #### L [id number] ####Windows Infrastructure Engineer: NED PAK ([id number])[facility])[address] [place] [address] Basophils/100 WBC (Bld) 0.3 % Normal 0.0-2.0 [facility] Comment on above: Performed By: #### L [id number] ####Windows Infrastructure Engineer: NED PAK ([id number])[facility])[address] [place] [address] Eosinophils (Bld) [#/Vol] 0.0 10*3/uL Normal 0.0-0.5 [facility] Comment on above: Performed By: #### L [id number] ####Windows Infrastructure Engineer: NED PAK ([id number])[facility])[address] [place] [address] Eosinophils/100 WBC (Bld) 0.1 % Low 1.0-6.0 [facility] Comment on above: Performed By: #### L [id number] ####Windows Infrastructure Engineer: NED PAK ([id number])[facility])[address] [place] [address] Erythrocyte distribution width (RBC) [Ratio] 14.2 % Normal 11.5-14.5 [facility] Comment on above: Performed By: #### L [id number] ####Windows Infrastructure Engineer: NED PAK ([id number])[facility])[address] [place] [address] ERYTHROCYTE MEAN CORPUSCULAR HEMOGLOBIN CONCENTRATION (G/DL) BY AUTOMATED 33.1 % Normal 32.0-36.0 [facility] Comment on above: Performed By: #### L [id number] ####Windows Infrastructure Engineer: NED PAK ([id number])[facility])[address] [place] [address] Hematocrit (Bld) [Volume fraction] 22.1 % Low 35.0-47.0 [facility] Comment on above: Performed By: #### L [id number] ####Windows Infrastructure Engineer: NED PAK ([id number])[facility])[address] [place] [address] Hemoglobin (Bld) [Mass/Vol] 7.3 g/dL Low 11.7-16.0 [facility] Comment on above: Performed By: #### L [id number] ####Windows Infrastructure Engineer: NED PAK ([id number])[address] Lymphocytes (Bld) [#/Vol] 1.2 10*3/uL Normal 1.0-4.3 [facility] Comment on above: Performed By: #### L [id number] ####Windows Infrastructure Engineer: NED PAK ([id number])[facility])[address] [place] [address] Lymphocytes/100 WBC (Bld) 9.7 % Low 20.0-40.0 [facility] Comment on above: Performed By: #### L [id number] ####Windows Infrastructure Engineer: NED PAK ([id number])[facility])[address] [place] [address] MCH (RBC) [Entitic mass] 29.0 pg Normal 26.0-34.0 [facility] Comment on above: Performed By: #### L [id number] ####Windows Infrastructure Engineer: NED PAK ([id number])[address] MCV (RBC) [Entitic vol] 87.6 fL Normal 80.0-98.0 [facility] Comment on above: Performed By: #### L [id number] ####Windows Infrastructure Engineer: NED PAK ([id number])[facility])[address] [place] [address] Monocytes (Bld) [#/Vol] 0.5 10*3/uL Normal 0.0-0.8 [facility] Comment on above: Performed By: #### L [id number] ####Windows Infrastructure Engineer: NED PAK ([id number])[facility])[address] [place] [address] Monocytes/100 WBC (Bld) 3.8 % Normal 2.0-10.0 [facility] Comment on above: Performed By: #### L [id number] ####Windows Infrastructure Engineer: NED PAK ([id number])[facility])[address] [place] [address] Neutrophils (Bld) [#/Vol] 11.0 10*3/uL High 1.8-7.0 [facility] Comment on above: Performed By: #### L [id number] ####Windows Infrastructure Engineer: NED PAK ([id number])[facility] ([facility])[address] [place] [address] Neutrophils/100 WBC (Bld) 86.1 % High 40.0-80.0 [facility] Comment on above: Performed By: #### L [id number] ####Windows Infrastructure Engineer: NED PAK ([id number])[facility])[address] [place] [address] NRBC (PER 100 WBCS) BY AUTOMATED COUNT 0.0 /100 WBCs Normal 0.0-2.0 [facility] Comment on above: Performed By: #### L [id number] ####Windows Infrastructure Engineer: NED PAK ([id number])[facility])[address] [place] [address] Platelet mean volume (Bld) [Entitic vol] 7.4 fL Normal 7.4-12.4 [facility] Comment on above: Performed By: #### L [id number] ####Windows Infrastructure Engineer: NED PAK ([id number])[facility])[address] [place] [address] PLATELETS (10*3/UL) IN BLOOD AUTOMATED COUNT 119 10*3/uL Low 140-440 [facility] Comment on above: Performed By: #### L [id number] ####Windows Infrastructure Engineer: NED PAK ([id number])[facility] ([facility])[address] [place] [address] RBC (Bld) [#/Vol] 2.52 10*6/uL Low 3.8-5.20 [facility] Comment on above: Performed By: #### L [id number] ####Windows Infrastructure Engineer: NED PAK ([id number])[facility] ([facility])[address] [place] [address] WBC (Bld) [#/Vol] 12.8 10*3/uL High 3.6-10.7 [facility] Comment on above: Performed By: #### L [id number] ####Windows Infrastructure Engineer: NED PAK ([id number])[facility] ([facility])[address] [place] [address] Progress Noteon 12-20-2022 Progress Note Normal [facility] Progress Note Normal [facility] Progress Note Normal [facility] Progress Note Normal [facility] Progress Note Normal [facility] XR ABDOMEN 1 VIEWon 12-21-19 XR ABDOMEN 1 VIEW Normal [facility] XR CHEST 1 VIEWon 12-20-2022 XR CHEST 1 VIEW Normal [facility] XR CHEST 1 VIEW Normal [facility] BASIC METABOLIC PANELon 09-3 Anion gap [Moles/Vol] 8 mmol/L Normal 3-13 [facility] Comment on above: Performed By: #### L AB15 ####Windows Infrastructure Engineer: NED PAK ([id number])[facility])[address] [place] [address] Calcium [Mass/Vol] 8.6 mg/dL Normal 8.4-10.4 [facility] Comment on above: Performed By: #### L AB15 ####Windows Infrastructure Engineer: NED PAK ([id number])[facility] ([facility])[address] [place] [address] Chloride [Moles/Vol] 115 mmol/L High 98-107 [facility] Comment on above: Performed By: #### L AB15 ####Windows Infrastructure Engineer: NED PAK ([id number])[facility])[address] [place] [address] CO2 [Moles/Vol] 22 mmol/L Normal 22-30 [facility] Comment on above: Performed By: #### L AB15 ####Windows Infrastructure Engineer: NED PAK ([id number])[facility])[address] [place] [address] Creatinine [Mass/Vol] 0.60 mg/dL Normal 0.52-1.04 [facility] Comment on above: Performed By: #### L AB15 ####Windows Infrastructure Engineer: NED PAK ([id number])[facility])[address] [place] [address] GLOMERULAR FILTRATION RATE ML/MIN/1.73 SQ M.PREDICTED 80.2 mL/min/1.73m*2 Normal >60.0 [facility] Comment on above: Result Comment: Calc ulation based on the Chronic Kidney Disease Epidemiology Collaboration (CKD-EPI) equation refit without adjustment for race Performed By: #### L AB15 ####Windows Infrastructure Engineer: NED PAK ([id number])[facility])[address] [place] [address] Glucose [Mass/Vol] 136 mg/dL High 70-100 [facility] Comment on above: Performed By: #### L AB15 ####Windows Infrastructure Engineer: NED PAK ([id number])[facility])[address] [place] [address] Potassium [Moles/Vol] 3.6 mmol/L Normal 3.5-5.1 [facility] Comment on above: Performed By: #### L AB15 ####Windows Infrastructure Engineer: NED PAK ([id number])[facility] ([facility])[address] [place] [address] Sodium [Moles/Vol] 144 mmol/L Normal 135-145 [facility] Comment on above: Performed By: #### L AB15 ####Windows Infrastructure Engineer: NED PAK ([id number])[facility])[address] [place] [address] Urea nitrogen [Mass/Vol] 9 mg/dL Normal 7-17 [facility] Comment on above: Performed By: #### L AB15 ####Windows Infrastructure Engineer: NED PAK ([id number])[facility])[address] [place] [address] CBC WITH AUTO DIFFERENTIALon 12-19-2022 Basophils (Bld) [#/Vol] 0.0 10*3/uL Normal 0.0-0.2 [facility] Comment on above: Performed By: #### L [id number] ####Windows Infrastructure Engineer: NED PAK ([id number])[facility] ([facility])[address] [place] [address] [place] Basophils/100 WBC (Bld) 0.1 % Normal 0.0-2.0 [facility] Comment on above: Performed By: #### L [id number] ####Windows Infrastructure Engineer: NED PAK ([id number])[facility])[address] [place] [address] Eosinophils (Bld) [#/Vol] 0.0 10*3/uL Normal 0.0-0.5 [facility] Comment on above: Performed By: #### L [id number] ####Windows Infrastructure Engineer: NED PAK ([id number])[facility])[address] [place] [address] [place] Eosinophils/100 WBC (Bld) 0.0 % Low 1.0-6.0 [facility] Comment on above: Performed By: #### L [id number] ####Windows Infrastructure Engineer: NED PAK ([id number])[facility])[address] [place] [address] Erythrocyte distribution width (RBC) [Ratio] 13.6 % Normal 11.5-14.5 [facility] Comment on above: Performed By: #### L [id number] ####Windows Infrastructure Engineer: NED PAK ([id number])[facility])[address] [place] [address] ERYTHROCYTE MEAN CORPUSCULAR HEMOGLOBIN CONCENTRATION (G/DL) BY AUTOMATED 33.5 % Normal 32.0-36.0 [facility] Comment on above: Performed By: #### L [id number] ####Windows Infrastructure Engineer: NED PAK ([id number])[facility])[address] [place] [address] Hematocrit (Bld) [Volume fraction] 23.9 % Low 35.0-47.0 [facility] Comment on above: Performed By: #### L [id number] ####Windows Infrastructure Engineer: NED PAK ([id number])[facility])[address] [place] [address] Hemoglobin (Bld) [Mass/Vol] 8.0 g/dL Low 11.7-16.0 [facility] Comment on above: Performed By: #### L [id number] ####Windows Infrastructure Engineer: NED PAK ([id number])[facility])[address] [place] [address] Lymphocytes (Bld) [#/Vol] 1.0 10*3/uL Normal 1.0-4.3 [facility] Comment on above: Performed By: #### L [id number] ####Windows Infrastructure Engineer: NED PAK ([id number])[facility])[address] [place] [address] Lymphocytes/100 WBC (Bld) 6.4 % Low 20.0-40.0 [facility] Comment on above: Performed By: #### L [id number] ####Windows Infrastructure Engineer: NED PAK ([id number])[facility])[address] [place] [address] MCH (RBC) [Entitic mass] 29.3 pg Normal 26.0-34.0 [facility] Comment on above: Performed By: #### L [id number] ####Windows Infrastructure Engineer: NED PAK ([id number])[facility])[address] [place] [address] MCV (RBC) [Entitic vol] 87.4 fL Normal 80.0-98.0 [facility] Comment on above: Performed By: #### L [id number] ####Windows Infrastructure Engineer: NED PAK ([id number])[facility])[address] [place] [address] Monocytes (Bld) [#/Vol] 0.5 10*3/uL Normal 0.0-0.8 [facility] Comment on above: Performed By: #### L [id number] ####Windows Infrastructure Engineer: NED PAK ([id number])[facility])[address] [place] [address] Monocytes/100 WBC (Bld) 3.6 % Normal 2.0-10.0 [facility] Comment on above: Performed By: #### L [id number] ####Windows Infrastructure Engineer: NED PAK ([id number])[facility])[address] [place] [address] Neutrophils (Bld) [#/Vol] 13.6 10*3/uL High 1.8-7.0 [facility] Comment on above: Performed By: #### L [id number] ####Windows Infrastructure Engineer: NED PAK ([id number])[facility])[address] [place] [address] Neutrophils/100 WBC (Bld) 89.9 % High 40.0-80.0 [facility] Comment on above: Performed By: #### L [id number] ####Windows Infrastructure Engineer: NED PAK ([id number])[facility])[address] [place] [address] NRBC (PER 100 WBCS) BY AUTOMATED COUNT 0.0 /100 WBCs Normal 0.0-2.0 [facility] Comment on above: Performed By: #### L [id number] ####Windows Infrastructure Engineer: NED PAK ([id number])[facility])[address] [place] [address] Platelet mean volume (Bld) [Entitic vol] 7.3 fL Low 7.4-12.4 [facility] Comment on above: Performed By: #### L [id number] ####Windows Infrastructure Engineer: NED PAK ([id number])[facility] ([facility])[address] [place] [address] PLATELETS (10*3/UL) IN BLOOD AUTOMATED COUNT 107 10*3/uL Low 140-440 [facility] Comment on above: Performed By: #### L [id number] ####Windows Infrastructure Engineer: NED PAK ([id number])[facility])[address] [place] [address] RBC (Bld) [#/Vol] 2.74 10*6/uL Low 3.8-5.20 [facility] Comment on above: Performed By: #### L [id number] ####Windows Infrastructure Engineer: NED PAK ([id number])[facility])[address] [place] [address] WBC (Bld) [#/Vol] 15.1 10*3/uL High 3.6-10.7 [facility] Comment on above: Performed By: #### L [id number] ####Windows Infrastructure Engineer: NED PAK ([id number])[facility])[address] [place] [address] CT HEAD WO IV CONTRASTon CT HEAD WO IV CONTRAST Normal [facility] ECG 12-LEADon 12-19-2022 ECG 12-LEAD Normal [facility] FFPon 12-19-2022 BB Order Item Product status info to follow [facility] HEMOGLOBIN AND HEMATOCRIT, B LOODon 12-19-2022 Hematocrit (Bld) [Volume fraction] 24.0 % Low 35.0-47.0 [facility] Comment on above: Performed By: #### L [id number] ####Windows Infrastructure Engineer: NED PAK ([id number])[facility])[address] [place] [address] Hemoglobin (Bld) [Mass/Vol] 8.0 g/dL Low 11.7-16.0 [facility] Comment on above: Performed By: #### L [id number] ####Windows Infrastructure Engineer: NED PAK ([id number])[facility])[address] [place] [address] Hematocrit (Bld) [Volume fraction] 23.3 % Low 35.0-47.0 [facility] Comment on above: Performed By: #### L [id number] ####Windows Infrastructure Engineer: NED PAK ([id number])[facility])[address] [place] [address] Hemoglobin (Bld) [Mass/Vol] 7.9 g/dL Low 11.7-16.0 [facility] Comment on above: Performed By: #### L [id number] ####Windows Infrastructure Engineer: NED PAK ([id number])[facility])[address] [place] [address] LACTIC ACID WITH REFLEXon Lactate [Moles/Vol] 1.7 mmol/L Normal 0.7-2.0 [facility] Comment on above: Performed By: #### L [id number] ####Windows Infrastructure Engineer: NED PAK ([id number])[facility])[address] [place] [address] Lactate [Moles/Vol] 2.4 mmol/L High 0.7-2.0 [facility] Comment on above: Performed By: #### L [id number] ####Windows Infrastructure Engineer: NED PAK ([id number])[facility])[address] [place] [address] Lactate [Moles/Vol] 2.3 mmol/L High 0.7-2.0 [facility] Comment on above: Performed By: #### L [id number] ####Windows Infrastructure Engineer: NED PAK ([id number])[facility] ([facility] PLASMA STATUSon 12-19-2022 BLOOD PRODUCT CODE [id number] Normal [facility] Comment on above: Performed By: #### F FU #### S [facility] [address] [place] [address], BLOOD PRODUCT DESCRIPTION FFP Normal [facility] Comment on above: Performed By: #### F FU #### [facility] [address] [place] [address], BLOOD PRODUCT STATUS Transfused Normal [facility] Comment on above: Performed By: #### F FU #### [facility] [address] [place] [address], Performed By: #### Samuel BU #### S [facility] [address] [place] [address], BLOOD PRODUCT UNIT INFO [id number] Normal [facility] Comment on above: Performed By: #### F FU #### [facility] [address] [place] [address], BLOOD PRODUCT UNIT TYPE 6200 Normal [facility] Comment on above: Result Comment: A Po s Performed By: #### F FU #### S [facility] [address] [place] [address], Progress Noteon 12-19-2022 Progress Note Normal [facility] Progress Note Normal [facility] Progress Note Normal [facility] Progress [facility] Normal [facility] RED BLOOD CELL COMPONENTon 0 12-19-2022 BB ORDER ITEM Product status info to follow Normal [facility] Comment on above: Performed By: #### R SERGIO #### S [facility] [address] [place] [address], Performed By: #### F FO #### S [facility] [address] [place] [address], BB Order Item Product status info to follow [facility] RED BLOOD CELL UNIT STATUSon 12-19-2022 BLOOD PRODUCT CODE [id number] Normal [facility] Comment on above: Performed By: #### R BU #### S [facility] [address] [place] [address], BLOOD PRODUCT DESCRIPTION Red Blood Cells Normal [facility] Comment on above: Performed By: #### R BU #### S [facility] [address] [place] [address], BLOOD PRODUCT UNIT INFO [id number] Normal [facility] Comment on above: Performed By: #### R BU #### [facility] [address] [place] [address], BLOOD PRODUCT UNIT TYPE 9500 Normal [facility] Comment on above: Result Comment: Dimitri Villarreal g Performed By: #### R BU #### S [facility] [address] [place] [address], CROSSMATCH INTERPRETATION Compatible (IS) Normal [facility] Comment on above: Result Comment: Nessa gency Transfusion - Transfused Uncrossmatched Performed By: #### R BU #### [facility] [address] [place] [address], TYPE AND SCREENon 12-19-2022 ABO and Rh group Nom (Bld) Blood group A Rh(D) positive Normal [facility] Comment on above: Performed By: #### T S #### [facility] [address] [place] [address], ABO and Rh group Nom (Bld) No Previous Results Normal [facility] Comment on above: Performed By: #### T S #### S [facility] [address] [place] [address], ABSC INT Negative Normal [facility] Comment on above: Performed By: #### T S #### S [facility] [address] [place] [address], ABO and Rh group Nom (Bld) Blood group A Rh(D) positive [facility] ABO and Rh group Nom (Bld) No Previous Results [facility] Blood group antibody screen Ql Negative [facility] XR ABDOMEN 1 VIEWon 12-20-19 23 XR ABDOMEN 1 VIEW Normal [facility] XR ABDOMEN 1 VIEW Normal [facility] XR CHEST 1 VIEWon 12-19-2022 XR CHEST 1 VIEW Normal [facility] BASIC METABOLIC PANELon 11-21 Anion gap [Moles/Vol] 11 mmol/L Normal 3-13 [facility] Comment on above: Performed By: #### L [id number] ####Windows Infrastructure Engineer: NED PAK ([id number])[facility])[address] [place] [address] Calcium [Mass/Vol] 8.9 mg/dL Normal 8.4-10.4 [facility] Comment on above: Performed By: #### L [id number] ####Windows Infrastructure Engineer: NED PAK ([id number])[facility] ([facility])[address] [place] [address] Chloride [Moles/Vol] 111 mmol/L High 98-107 [facility] Comment on above: Performed By: #### L AB15 ####Windows Infrastructure Engineer: NED PAK ([id number])[facility] ([facility])[address] [place] [address] CO2 [Moles/Vol] 21 mmol/L Low 22-30 [facility] Comment on above: Performed By: #### L AB15 ####Windows Infrastructure Engineer: NED PAK ([id number])[facility])[address] [place] [address] Creatinine [Mass/Vol] 0.65 mg/dL Normal 0.52-1.04 [facility] Comment on above: Performed By: #### L AB15 ####Windows Infrastructure Engineer: NED PAK ([id number])[facility])[address] [place] [address] [place] GLOMERULAR FILTRATION RATE ML/MIN/1.73 SQ M.PREDICTED 78.7 mL/min/1.73m*2 Normal >60.0 [facility] Comment on above: Result Comment: Calc ulation based on the Chronic Kidney Disease Epidemiology Collaboration (CKD-EPI) equation refit without adjustment for race Performed By: #### L AB15 ####Windows Infrastructure Engineer: NED PAK ([id number])[facility] ([facility])[address] [place] [address] [place] Glucose [Mass/Vol] 142 mg/dL High 70-100 [facility] Comment on above: Performed By: #### L AB15 ####Windows Infrastructure Engineer: NED PAK ([id number])[facility] ([facility])[address] [place] [address] [place] Potassium [Moles/Vol] 4.1 mmol/L Normal 3.5-5.1 [facility] Comment on above: Performed By: #### L AB15 ####Windows Infrastructure Engineer: NED PAK ([id number])[facility] ([facility])[address] [place] [address] Sodium [Moles/Vol] 143 mmol/L Normal 135-145 [facility] Comment on above: Performed By: #### L AB15 ####Windows Infrastructure Engineer: NED PAK ([id number])[facility] ([facility])[address] [place] [address] Urea nitrogen [Mass/Vol] 13 mg/dL Normal 7-17 [facility] Comment on above: Performed By: #### L AB15 ####Windows Infrastructure Engineer: NED PAK ([id number])[facility] ([facility])[address] [place] [address] Anion gap [Moles/Vol] 12 mmol/L Normal 3-13 [facility] Comment on above: Performed By: #### L AB15 ####Windows Infrastructure Engineer: NED PAK ([id number])[facility] ([facility])[address] [place] [address] [place] Calcium [Mass/Vol] 9.6 mg/dL Normal 8.4-10.4 [facility] Comment on above: Performed By: #### L AB15 ####Windows Infrastructure Engineer: NED PAK ([id number])[facility] ([facility])[address] [place] [address] [place] Chloride [Moles/Vol] 110 mmol/L High 98-107 [facility] Comment on above: Performed By: #### L AB15 ####Windows Infrastructure Engineer: NED PAK ([id number])[facility])[address] [place] [address] CO2 [Moles/Vol] 20 mmol/L Low 22-30 [facility] Comment on above: Performed By: #### L AB15 ####Windows Infrastructure Engineer: NED PAK ([id number])[facility])[address] [place] [address] Creatinine [Mass/Vol] 0.77 mg/dL Normal 0.52-1.04 [facility] Comment on above: Performed By: #### L AB15 ####Windows Infrastructure Engineer: NED PAK ([id number])[facility])[address] [place] [address] GLOMERULAR FILTRATION RATE ML/MIN/1.73 SQ M.PREDICTED 69.0 mL/min/1.73m*2 Normal >60.0 [facility] Comment on above: Result Comment: Calc ulation based on the Chronic Kidney Disease Epidemiology Collaboration (CKD-EPI) equation refit without adjustment for race Performed By: #### L AB15 ####Windows Infrastructure Engineer: NED PAK ([id number])[facility])[address] [place] [address] Glucose [Mass/Vol] 172 mg/dL High 70-100 [facility] Comment on above: Performed By: #### L AB15 ####Windows Infrastructure Engineer: NED APK ([id number])[facility])[address] [place] [address] Potassium [Moles/Vol] 4.6 mmol/L Normal 3.5-5.1 [facility] Comment on above: Performed By: #### L AB15 ####Windows Infrastructure Engineer: NED PAK ([id number])[facility])[address] [place] [address] Sodium [Moles/Vol] 142 mmol/L Normal 135-145 [facility] Comment on above: Performed By: #### L AB15 ####Windows Infrastructure Engineer: NED PAK ([id number])[facility] ([facility])[address] [place] [address] Urea nitrogen [Mass/Vol] 15 mg/dL Normal 7-17 [facility] Comment on above: Performed By: #### L AB15 ####Windows Infrastructure Engineer: NED PAK ([id number])[facility] ([facility])[address] [place] [address] CARECOORDon 12-18-2022 CARECOORD Normal [facility] CBC (HEMOGRAM)on 12-18-2022 Erythrocyte distribution width (RBC) [Ratio] 13.7 % Normal 11.5-14.5 [facility] Comment on above: Performed By: #### L [id number] ####Windows Infrastructure Engineer: NED PAK ([id number])[facility])[address] [place] [address] ERYTHROCYTE MEAN CORPUSCULAR HEMOGLOBIN CONCENTRATION (G/DL) BY AUTOMATED 34.3 % Normal 32.0-36.0 [facility] Comment on above: Performed By: #### L [id number] ####Windows Infrastructure Engineer: NED PAK ([id number])[facility] ([facility])[address] [place] [address] Hematocrit (Bld) [Volume fraction] 32.3 % Low 35.0-47.0 [facility] Comment on above: Performed By: #### L [id number] ####Windows Infrastructure Engineer: NED PAK ([id number])[facility])[address] [place] [address] Hemoglobin (Bld) [Mass/Vol] 11.1 g/dL Low 11.7-16.0 [facility] Comment on above: Performed By: #### L [id number] ####Windows Infrastructure Engineer: NED PAK ([id number])[facility])[address] [place] [address] MCH (RBC) [Entitic mass] 29.8 pg Normal 26.0-34.0 [facility] Comment on above: Performed By: #### L [id number] ####Windows Infrastructure Engineer: NED PAK ([id number])[facility])[address] [place] [address] MCV (RBC) [Entitic vol] 86.8 fL Normal 80.0-98.0 [facility] Comment on above: Performed By: #### L [id number] ####Windows Infrastructure Engineer: NED PAK ([id number])[facility])[address] [place] [address] Platelet mean volume (Bld) [Entitic vol] 7.3 fL Low 7.4-12.4 [facility] Comment on above: Performed By: #### L [id number] ####Windows Infrastructure Engineer: NED PAK ([id number])[facility])[address] [place] [address] PLATELETS (10*3/UL) IN BLOOD AUTOMATED COUNT 153 10*3/uL Normal 140-440 [facility] Comment on above: Performed By: #### L [id number] ####Windows Infrastructure Engineer: NED PAK ([id number])[facility])[address] [place] [address] RBC (Bld) [#/Vol] 3.72 10*6/uL Low 3.8-5.20 [facility] Comment on above: Performed By: #### L [id number] ####Windows Infrastructure Engineer: NED PAK ([id number])[facility])[address] [place] [address] WBC (Bld) [#/Vol] 21.8 10*3/uL High 3.6-10.7 [facility] Comment on above: Performed By: #### L [id number] ####Windows Infrastructure Engineer: NED PAK ([id number])[facility])[address] [place] [address] COMPLETE URINALYSISon 2022 BACTERIA (#/HPF) IN URINE Negative Normal Negative [facility] Comment on above: Performed By: #### L [id number] ####Windows Infrastructure Engineer: NED PAK ([id number])[facility] [place] [address] BILIRUBIN, TOTAL PRESENCE IN URINE Negative Normal Negative [facility] Comment on above: Performed By: #### L [id number] ####Windows Infrastructure Engineer: NED PAK ([id number])[facility] [place] [address] Clarity (U) Turbid Abnormal Clear [facility] Comment on above: Performed By: #### L [id number] ####Windows Infrastructure Engineer: NED PAK ([id number])[facility] ([facility])[address] [place] [address] Color (U) Light [place] Abnormal Lt. Yellow [facility] Comment on above: Performed By: #### L [id number] ####Windows Infrastructure Engineer: NED PAK ([id number])[facility] ([facility])[address] [place] [address] GLUCOSE (MG/DL) IN URINE Normal Normal Normal (<70) [facility] Comment on above: Performed By: #### L [id number] ####Windows Infrastructure Engineer: NED PAK ([id number])[facility] ([facility])[address] [place] [address] HEMOGLOBIN PRESENCE IN URINE >1.0 Abnormal Negative [facility] Comment on above: Performed By: #### L [id number] ####Windows Infrastructure Engineer: NED PAK ([id number])[facility] [place] [address] HYALINE CASTS (#/LPF) IN URINE SEDIMENT BY MICROSCOPY Negative Normal Negative [facility] Comment on above: Performed By: #### L [id number] ####Windows Infrastructure Engineer: NED PAK ([id number])[facility] ([facility])[address] [place] [address] Ketones Ql (U) 10 mg/dL Abnormal Negative [facility] Comment on above: Performed By: #### L [id number] ####Windows Infrastructure Engineer: NED PAK ([id number])[facility] [place] [address] LEUKOCYTE ESTERASE PRESENCE IN URINE BY TEST STRIP 25 Danielito/uL Abnormal Negative [facility] Comment on above: Performed By: #### L [id number] ####Windows Infrastructure Engineer: NED PAK ([id number])[facility] ([facility])[address] [place] [address] MUCUS (#/LPF) IN URINE SEDIMENT Few Normal Negative [facility] Comment on above: Performed By: #### L [id number] ####Windows Infrastructure Engineer: NED PAK ([id number])[facility] ([facility])[address] [place] [address] NITRITE PRESENCE IN URINE Negative Normal Negative [facility] Comment on above: Performed By: #### L [id number] ####Windows Infrastructure Engineer: NED PAK ([id number])[facility])[address] [place] [address] pH (U) 5.0 [pH] Normal 5.0-8.0 [facility] Comment on above: Performed By: #### L [id number] ####Windows Infrastructure Engineer: NED PAK ([id number])[facility])[address] [place] [address] Protein (U) [Mass/Vol] 50 mg/dL Abnormal Negative [facility] Comment on above: Performed By: #### L [id number] ####Windows Infrastructure Engineer: NED PAK ([id number])[facility])[address] [place] [address] RBC (#/HPF) IN URINE SEDIMENT >100 Abnormal 0-2 [facility] Comment on above: Performed By: #### L [id number] ####Windows Infrastructure Engineer: NED PAK ([id number])[facility])[address] [place] [address] Specific gravity (U) [Rel density] 1.026 Normal 1.005-1.03 0 [facility] Comment on above: Performed By: #### L [id number] ####Windows Infrastructure Engineer: NED PAK ([id number])[facility] ([facility])[address] [place] [address] SQUAMOUS EPITHELIAL CELLS (#/HPF) IN URINE SEDIMENT Negative Normal 3-5 [facility] Comment on above: Performed By: #### L [id number] ####Windows Infrastructure Engineer: NED PAK ([id number])[facility] ([facility])[address] [place] [address] UROBILINOGEN (MG/DL) IN URINE Normal Normal Normal (0-1) [facility] Comment on above: Performed By: #### L [id number] ####Windows Infrastructure Engineer: NED PAK ([id number])[facility] ([facility])[address] [place] [address] WBC (LEUKOCYTE) (#/HPF) IN URINE SEDIMENT 26-50 Abnormal 0-5 [facility] Comment on above: Performed By: #### L [id number] ####Windows Infrastructure Engineer: NED PAK ([id number])[facility] [place] [address] CT CERVICAL SPINE WO IV CONT RASTon 12-18-2022 CT CERVICAL SPINE WO IV CONTRAST Normal [facility] CT HEAD NECK ANGIO W AND WO IV CONTRASTon 12-18-2022 CT HEAD NECK ANGIO W AND WO IV CONTRAST Normal [facility] CT HEAD WO IV CONTRASTon CT HEAD WO IV CONTRAST Normal [facility] CT HEAD WO IV CONTRAST Normal [facility] CT MAXILLOFACIAL WO IV CONTR Miranda 12-18-2022 CT MAXILLOFACIAL WO IV CONTRAST Normal [facility] Consulton 12-18-2022 Consult Normal [facility] Consult Normal [facility] Consult Normal [facility] Consult Normal [facility] ECG 12-LEADon 12-18-2022 ECG 12-LEAD IMPRESSION: Sinus tachycardia Multiple ventricular premature complexes Left ventricular hypertrophy Electronically Signed On 12-18-2022 14:12:00 EDT by Imelda Manzano Normal [facility] HEMOGLOBIN AND HEMATOCRIT, B LOODon 12-18-2022 Hematocrit (Bld) [Volume fraction] 27.6 % Low 35.0-47.0 [facility] Comment on above: Performed By: #### L [id number] ####Windows Infrastructure Engineer: NED PAK ([id number])[facility])[address] [place] [address] Hemoglobin (Bld) [Mass/Vol] 9.1 g/dL Low 11.7-16.0 [facility] Comment on above: Performed By: #### L [id number] ####Windows Infrastructure Engineer: NED PAK ([id number])[facility])[address] [place] [address] Hematocrit (Bld) [Volume fraction] 28.4 % Low 35.0-47.0 [facility] Comment on above: Performed By: #### L [id number] ####Windows Infrastructure Engineer: NED PAK ([id number])[facility])[address] [place] [address] Hemoglobin (Bld) [Mass/Vol] 9.2 g/dL Low 11.7-16.0 [facility] Comment on above: Performed By: #### L [id number] ####Windows Infrastructure Engineer: NED PAK ([id number])[facility])[address] [place] [address] Hematocrit (Bld) [Volume fraction] 27.1 % Low 35.0-47.0 [facility] Comment on above: Performed By: #### L [id number] ####Windows Infrastructure Engineer: NED PAK ([id number])[facility])[address] [place] [address] Hemoglobin (Bld) [Mass/Vol] 9.3 g/dL Low 11.7-16.0 [facility] Comment on above: Performed By: #### L [id number] ####Windows Infrastructure Engineer: NED PAK ([id number])[facility])[address] [place] [address] LACTIC ACID WITH REFLEXon Lactate [Moles/Vol] 3.1 mmol/L High 0.7-2.0 [facility] Comment on above: Performed By: #### L [id number] ####Windows Infrastructure Engineer: NED PAK ([id number])[facility] ([facility])[address] [place] [address] Lactate [Moles/Vol] 4.5 mmol/L Critically high 0.7-2.0 [facility] Comment on above: Performed By: #### L [id number] ####Windows Infrastructure Engineer: NED PAK ([id number])[facility] ([facility])[address] [place] [address] Lactate [Moles/Vol] 3.7 mmol/L High 0.7-2.0 [facility] Comment on above: Performed By: #### L [id number] ####Windows Infrastructure Engineer: NED PAK ([id number])[facility] ([facility])[address] [place] [address] Lactate [Moles/Vol] 4.7 mmol/L Critically high 0.7-2.0 [facility] Comment on above: Performed By: #### L [id number] ####Windows Infrastructure Engineer: NED PAK ([id number])[facility])[address] [place] [address] Progress Noteon 12-18-2022 Progress Note Normal [facility] Progress Note Normal [facility] Progress Note Physical Therapy PT eval held this date due to RN reporting pt is not a good candidate this date due to decreased cognition and command following. Will re-attempt as able. Fanny Brower, SPT Normal [facility] Progress Note Palliative Care Interdisciplinary Meeting Note: This a new consult, to be seen. Normal [facility] Progress Note Normal [facility] Progress Note Normal [facility] Progress Note Normal [facility] Progress Note Normal [facility] XR CHEST 1 VIEWon 12-18-2022 XR CHEST 1 VIEW Normal [facility] BASIC METABOLIC PANELon 11-21 Anion gap [Moles/Vol] 16 mmol/L High 3-13 [facility] Comment on above: Performed By: #### L AB15, LAB46, [id number], [id number] ####Windows Infrastructure Engineer: NED PAK ([id number])[facility])[address] [place] [address] Calcium [Mass/Vol] 9.2 mg/dL Normal 8.4-10.4 [facility] Comment on above: Performed By: #### L AB15, LAB46, [id number], [id number] ####Windows Infrastructure Engineer: NED PAK ([id number])[facility])[address] [place] [address] Chloride [Moles/Vol] 111 mmol/L High 98-107 [facility] Comment on above: Performed By: #### L AB15, LAB46, VJR100, [id number] ####Windows Infrastructure Engineer: NED PAK ([id number])[facility])[address] [place] [address] CO2 [Moles/Vol] 18 mmol/L Low 22-30 [facility] Comment on above: Performed By: #### L AB15, LAB46, VXG146, [id number] ####Windows Infrastructure Engineer: NED PAK ([id number])[facility])[address] [place] [address] Creatinine [Mass/Vol] 0.80 mg/dL Normal 0.52-1.04 [facility] Comment on above: Performed By: #### L AB15, LAB46, AGT560, VFN392 ####Windows Infrastructure Engineer: NED PAK ([id number])[facility])[address] [place] [address] GLOMERULAR FILTRATION RATE ML/MIN/1.73 SQ M.PREDICTED 65.9 mL/min/1.73m*2 Normal >60.0 [facility] Comment on above: Result Comment: Calc ulation based on the Chronic Kidney Disease Epidemiology Collaboration (CKD-EPI) equation refit without adjustment for race Performed By: #### L AB15, LAB46, PSP258, QDE417 ####Windows Infrastructure Engineer: NED PAK ([id number])[facility])[address] [place] [address] Glucose [Mass/Vol] 132 mg/dL High 70-100 [facility] Comment on above: Performed By: #### L AB15, LAB46, LKA414, XGL786 ####Windows Infrastructure Engineer: NED PAK ([id number])[facility] ([facility])[address] [place] [address] Potassium [Moles/Vol] 3.3 mmol/L Low 3.5-5.1 [facility] Comment on above: Performed By: #### L AB15, LAB46, GZZ310, MNK368 ####Windows Infrastructure Engineer: NED PAK ([id number])[facility] ([facility])[address] [place] [address] Sodium [Moles/Vol] 144 mmol/L Normal 135-145 [facility] Comment on above: Performed By: #### L AB15, LAB46, MSI604, VVD498 ####Windows Infrastructure Engineer: NED PAK ([id number])[facility] ([facility])[address] [place] [address] Urea nitrogen [Mass/Vol] 19 mg/dL High 7-17 [facility] Comment on above: Performed By: #### L AB15, LAB46, LOS531, PWW594 ####Windows Infrastructure Engineer: NED PAK ([id number])[facility] ([facility])[address] [place] [address] BLOOD TYPE AND SCREEN GELon 12-17-2022 ABO GROUPING A Normal [facility] Comment on above: Performed By: #### L [id number] ####Windows Infrastructure Engineer: NED PAK ([id number])[facility] ([facility])[address] [place] [address] RH TYPE IN BLOOD Positive Normal [facility] Comment on above: Performed By: #### L AB276 ####Windows Infrastructure Engineer: NED PAK ([id number])[facility] ([facility])[address] [place] [address] [place] CBC WITH AUTO DIFFERENTIALon 12-17-2022 Erythrocyte distribution width (RBC) [Ratio] 13.5 % Normal 11.5-14.5 [facility] Comment on above: Performed By: #### L [id number], [id number] ####Windows Infrastructure Engineer: END PAK ([id number])[facility])[address] [place] [address] ERYTHROCYTE MEAN CORPUSCULAR HEMOGLOBIN CONCENTRATION (G/DL) BY AUTOMATED 32.8 % Normal 32.0-36.0 [facility] Comment on above: Performed By: #### Tameka [id number], [id number] ####Windows Infrastructure Engineer: NED PAK ([id number])[address] Hematocrit (Bld) [Volume fraction] 35.0 % Normal 35.0-47.0 [facility] Comment on above: Performed By: #### Tameka [id number], [id number] ####Windows Infrastructure Engineer: NED PAK ([id number])[address] Hemoglobin (Bld) [Mass/Vol] 11.5 g/dL Low 11.7-16.0 [facility] Comment on above: Performed By: #### Tameka [id number], DRV2511 ####Windows Infrastructure Engineer: NED PAK ([id number])[address] MCH (RBC) [Entitic mass] 28.9 pg Normal 26.0-34.0 [facility] Comment on above: Performed By: #### Tameka [id number], [id number] ####Windows Infrastructure Engineer: NED PAK ([id number])[address] MCV (RBC) [Entitic vol] 88.2 fL Normal 80.0-98.0 [facility] Comment on above: Performed By: #### L [id number], [id number] ####Windows Infrastructure Engineer: NED PAK ([id number])[facility] ([facility])[address] [place] [address] [place] Platelet mean volume (Bld) [Entitic vol] 7.1 fL Low 7.4-12.4 [facility] Comment on above: Performed By: #### L [id number], [id number] ####Windows Infrastructure Engineer: NED PAK ([id number])[facility] ([facility])[address] [place] [address] PLATELETS (10*3/UL) IN BLOOD AUTOMATED COUNT 197 10*3/uL Normal 140-440 [facility] Comment on above: Performed By: #### L [id number], [id number] ####Windows Infrastructure Engineer: NED PAK ([id number])[facility] ([facility])[address] [place] [address] RBC (Bld) [#/Vol] 3.97 10*6/uL Normal 3.8-5.20 [facility] Comment on above: Performed By: #### L [id number], [id number] ####Windows Infrastructure Engineer: NED PAK ([id number])[facility] ([facility])[address] [place] [address] WBC (Bld) [#/Vol] 27.2 10*3/uL High 3.6-10.7 [facility] Comment on above: Performed By: #### L [id number], [id number] ####Windows Infrastructure Engineer: NED PAK ([id number])[facility] ([facility])[address] [place] [address] CT CHEST ABDOMEN PELVIS W CO NTRASTon 12-17-2022 CT CHEST ABDOMEN PELVIS W CONTRAST Normal [facility] Consulton 12-17-2022 Consult Normal [facility] Consult Normal [facility] DRUGS OF ABUSEon 12-17-2022 AMPHETAMINE SCREEN Negative Normal [facility] Comment on above: Performed By: #### L [id number] ####Windows Infrastructure Engineer: NED PAK ([id number])[facility])[address] [place] [address] BARBITURATES SCREEN Negative Normal [facility] Comment on above: Performed By: #### L [id number] ####Windows Infrastructure Engineer: NED [id number])[facility] [place] [address] BENZODIAZEPINE SCREEN Negative Normal [facility] Comment on above: Performed By: #### L [id number] ####Windows Infrastructure Engineer: NED PAK ([id number])[facility] ([facility])[address] [place] [address] COCAINE METAB. SCREEN Negative Normal [facility] Comment on above: Performed By: #### L [id number] ####Windows Infrastructure Engineer: NED PAK ([id number])[facility] [place] [address] METHADONE SCREEN Negative Normal [facility] Comment on above: Performed By: #### L [id number] ####Windows Infrastructure Engineer: NED PAK ([id number])[facility] ([facility])[address] [place] [address] OPIATES SCREEN Positive Normal [facility] Comment on above: Performed By: #### L [id number] ####Windows Infrastructure Engineer: NED PAK ([id number])[facility] [place] [address] OXYCODONE SCREEN Negative Normal [facility] Comment on above: Performed By: #### L [id number] ####Windows Infrastructure Engineer: NED PAK ([id number])[facility] ([facility])[address] [place] [address] PHENCYCLIDINE SCREEN Negative Normal [facility] Comment on above: Result Comment: SANDRA Baker COMMENTS:The expected value for all of the drugs listed above is Negative.The following drugs or drug groups have been screened for by Immunoassay at the following thresholds:Amphetamine class (1000 ng/mL)Barbiturates (200 ng/mL)Benzodiazepines (200 ng/mL)Cocaine (300 ng/mL)Methadone (300 ng/mL)Opiates (300 ng/mL)Oxycodone (100 ng/mL)PCP (25 ng/mL)NOTE: These results are for medical treatment only. Analysis performed using non-forensic procedures. POSITIVE results are NOT confirmed by a more specificalternative method unless requested. If confirmation is needed, request confirmation under separate order. Performed By: #### L [id number] ####Windows Infrastructure Engineer: NED PAK ([id number])[address] ED Nursing Noteon 12-17-2022 ED Nursing Note Blood Bank called/MT P ordered by Jenni ABERNATHY (verbal order per ). Amalia Juares RN 12/17/22 1703 Normal [facility] ED Provider Noteon ED Provider Note Normal [facility] ETHANOLon 12-17-2022 ETHANOL IN SER/PLAS <0.010 Normal 0.000-0. 01 0 [facility] Comment on above: Result Comment: SANDRA Baker COMMENTS:NOTE: This result is for medical treatment only. Analysis performed using non-forensic procedures. Performed By: #### L AB15, LAB46, EBJ254, [id number] ####Windows Infrastructure Engineer: NED PAK ([id number])[facility])[address] [place] [address] HEMOGLOBIN AND HEMATOCRIT, B LOODon 12-17-2022 Hematocrit (Bld) [Volume fraction] 37.7 % Normal 35.0-47.0 [facility] Comment on above: Performed By: #### L [id number] ####Windows Infrastructure Engineer: NED PAK ([id number])[address] Hemoglobin (Bld) [Mass/Vol] 12.5 g/dL Normal 11.7-16.0 [facility] Comment on above: Performed By: #### L AB753 ####Windows Infrastructure Engineer: NED PAK ([id number])[address] LACTIC ACID WITH REFLEXon Lactate [Moles/Vol] 4.3 mmol/L Critically high 0.7-2.0 [facility] Comment on above: Performed By: #### L [id number] ####Windows Infrastructure Engineer: NED [id number])[facility])[address] [place] [address] Lactate [Moles/Vol] 3.2 mmol/L High 0.7-2.0 [facility] Comment on above: Performed By: #### L [id number] ####Windows Infrastructure Engineer: NED PAK ([id number])[facility])[address] [place] [address] MAGNESIUMon 12-17-2022 Magnesium [Mass/Vol] 2.0 mg/dL Normal 1.6-2.3 [facility] Comment on above: Performed By: #### L AB15, LAB46, ZMQ638, JZR235 ####Windows Infrastructure Engineer: NED PAK ([id number])[address] MANUAL DIFFERENTIALon 2022 BAND NEUTROPHILS (10*3/UL) BLOOD MANUAL COUNT 0.7 10*3/uL High <=0.0 [facility] Comment on above: Result Comment: This is an appended report. These results have been appended to a previously final verified report. Performed By: #### L [id number], [id number] ####Windows Infrastructure Engineer: NED PAK ([id number])[address] BAND NEUTROPHILS TOTAL PER COUNTED LEUKOCYTES BY MANUAL COUNT 5 Normal [facility] Comment on above: Result Comment: This is an appended report. These results have been appended to a previously final verified report. Performed By: #### L [id number], [id number] ####Windows Infrastructure Engineer: NED PAK ([id number])[address] LANEY CELLS PRESENCE IN BLOOD BY LIGHT MICROSCOPY Rare Abnormal (none) [facility] Comment on above: Result Comment: This is an appended report. These results have been appended to a previously final verified report. Performed By: #### L [id number], [id number] ####Windows Infrastructure Engineer: NED PAK ([id number])[facility] [address] CELLS COUNTED TOTAL (#) IN BLOOD 200 Normal [facility] Comment on above: Result Comment: This is an appended report. These results have been appended to a previously final verified report. Performed By: #### L [id number], [id number] ####Windows Infrastructure Engineer: NED PAK ([id number])[address] DIFFERENTIAL METHOD Manual differential performed Normal [facility] Comment on above: Result Comment: This is an appended report. These results have been appended to a previously final verified report. Performed By: #### L [id number], [id number] ####Windows Infrastructure Engineer: NED PAK ([id number])[address] ELLIPTOCYTES IN BLOOD BY LIGHT MICROSCOPY Rare Abnormal (none) [facility] Comment on above: Result Comment: This is an appended report. These results have been appended to a previously final verified report. Performed By: #### L [id number], [id number] ####Windows Infrastructure Engineer: NED PAK ([id number])[address] LEUKOCYTE MORPHOLOGY FINDING IN BLOOD Normal [facility] Comment on above: Result Comment: [place] ected result: Previously reported as Normal (reference range: ) on 12/17/2022 at 1645 EDT. Performed By: #### L [id number], [id number] ####Windows Infrastructure Engineer: NED PAK ([id number])[facility])[address] [place] [address] LEUKOCYTES (10*3/UL) NUCLEATED ERYTHROCYTE ADJUST 27.2 10*3/uL High 3.6-10.7 [facility] Comment on above: Performed By: #### L [id number], [id number] ####Windows Infrastructure Engineer: NED PAK ([id number])[address] LYMPHOCYTES (10*3/UL) IN BLOOD BY MANUAL COUNT 2.3 10*3/uL Normal 1.0-4.3 [facility] Comment on above: Result Comment: This is an appended report. These results have been appended to a previously final verified report. Performed By: #### L [id number], [id number] ####Windows Infrastructure Engineer: NED PAK ([id number])[facility])[address] [place] [address] [place] LYMPHOCYTES TOTAL PER COUNTED LEUKOCYTES BY MANUAL COUNT 17 Normal [facility] Comment on above: Result Comment: This is an appended report. These results have been appended to a previously final verified report. Performed By: #### L [id number], [id number] ####Windows Infrastructure Engineer: NED PAK ([id number])[facility])[address] [place] [address] LYMPHOCYTES/100 LEUKOCYTES IN BLOOD BY MANUAL COUNT 9 % Low 20-40 [facility] Comment on above: Result Comment: This is an appended report. These results have been appended to a previously final verified report. Performed By: #### L [id number], [id number] ####Windows Infrastructure Engineer: NED PAK ([id number])[facility])[address] [place] [address] [place] METAMYELOCYTES (10*3/UL) IN BLOOD BY MANUAL COUNT 0.7 10*3/uL High <=0.0 [facility] Comment on above: Result Comment: This is an appended report. These results have been appended to a previously final verified report. Performed By: #### L [id number], [id number] ####Windows Infrastructure Engineer: NED PAK ([id number])[facility])[address] [place] [address] [place] METAMYELOCYTES TOTAL PER COUNTED LEUKOCYTES BY MANUAL COUNT 5 Normal [facility] Comment on above: Result Comment: This is an appended report. These results have been appended to a previously final verified report. Performed By: #### L [id number], [id number] ####Windows Infrastructure Engineer: NED PAK ([id number])[facility])[address] [place] [address] [place] METAMYELOCYTES/100 LEUKOCYTES IN BLOOD BY MANUAL COUNT 3 % High <=0 [facility] Comment on above: Result Comment: This is an appended report. These results have been appended to a previously final verified report. Performed By: #### L [id number], [id number] ####Windows Infrastructure Engineer: NED PAK ([id number])[facility])[address] [place] [address] [place] MONOCYTES (10*3/UL) IN BLOOD BY MANUAL COUNT 0.5 10*3/uL Normal 0.0-0.8 [facility] Comment on above: Result Comment: This is an appended report. These results have been appended to a previously final verified report. Performed By: #### L [id number], [id number] ####Windows Infrastructure Engineer: NED PAK ([id number])[facility])[address] [place] [address] [place] MONOCYTES TOTAL PER COUNTED LEUKOCYTES BY MANUAL COUNT 4 Normal [facility] Comment on above: Result Comment: This is an appended report. These results have been appended to a previously final verified report. Performed By: #### L [id number], [id number] ####Windows Infrastructure Engineer: NED PAK ([id number])[facility])[address] [place] [address] MONOCYTES/100 LEUKOCYTES IN BLOOD BY MANUAL COUNT 2 % Normal 2-10 [facility] Comment on above: Result Comment: This is an appended report. These results have been appended to a previously final verified report. Performed By: #### L [id number], [id number] ####Windows Infrastructure Engineer: NED PAK ([id number])[facility])[address] [place] [address] [place] NEUTROPHILS (SEGS+BANDS) (10*3/UL) BY MANUAL COUNT 23.7 10*3/uL High 1.8-7.0 [facility] Comment on above: Result Comment: This is an appended report. These results have been appended to a previously final verified report. Performed By: #### L [id number], [id number] ####Windows Infrastructure Engineer: NED PAK ([id number])[facility])[address] [place] [address] NEUTROPHILS BAND FORM/100 LEUKOCYTES IN BLOOD BY MANUAL COUNT 3 % High <=0 [facility] Comment on above: Result Comment: This is an appended report. These results have been appended to a previously final verified report. Performed By: #### L [id number], [id number] ####Windows Infrastructure Engineer: NED PAK ([id number])[facility])[address] [place] [address] NEUTROPHILS TOTAL PER COUNTED LEUKOCYTES BY MANUAL COUNT 169 Normal [facility] Comment on above: Result Comment: This is an appended report. These results have been appended to a previously final verified report. Performed By: #### L [id number], [id number] ####Windows Infrastructure Engineer: NED PAK ([id number])[facility])[address] [place] [address] PLATELET MORPHOLOGY IN BLOOD Normal Normal [facility] Comment on above: Performed By: #### L [id number], [id number] ####Windows Infrastructure Engineer: NED PAK ([id number])[facility])[address] [place] [address] POIKILOCYTOSIS (PRESENCE) IN BLOOD BY LIGHT MICROSCOPY Rare Abnormal (none) [facility] Comment on above: Result Comment: This is an appended report. These results have been appended to a previously final verified report. Performed By: #### L [id number], [id number] ####Windows Infrastructure Engineer: NED PAK ([id number])[facility])[address] [place] [address] RBC MORPHOLOGY IN BLOOD Normal [facility] Comment on above: Result Comment: [place] ected result: Previously reported as Normal (reference range: ) on 12/17/2022 at 1645 EDT. Performed By: #### L [id number], [id number] ####Windows Infrastructure Engineer: NED PAK ([id number])[facility])[address] [place] [address] SEGEMENTED NEUTROPHILS/100 LEUKOCYTES BY MANUAL COUNT 85 % High 40-80 [facility] Comment on above: Result Comment: This is an appended report. These results have been appended to a previously final verified report. Performed By: #### L [id number], [id number] ####Windows Infrastructure Engineer: NED PAK ([id number])[address] SEGMENTED NEUTROPHILS (10*3/UL)IN BLOOD BY MANUAL COUNT 23.7 10*3/uL High 1.8-7.0 [facility] Comment on above: Result Comment: This is an appended report. These results have been appended to a previously final verified report. Performed By: #### L [id number], [id number] ####Windows Infrastructure Engineer: NED PAK ([id number])[address] VACUOLATED NEUTROPHILS PRESENCE IN BLOOD BY LIGHT MICROSCOPY (PRESENT) Present Abnormal (none) [facility] Comment on above: Result Comment: This is an appended report. These results have been appended to a previously final verified report. Performed By: #### L [id number], [id number] ####Windows Infrastructure Engineer: NED PAK ([id number])[address] Nursing Noteon 12-17-2022 Nursing Note Patient daughter Car ol Mast requesting confidential status be removed from chart. Change made as per request. Admitting notified. Normal [facility] PHOSPHORUSon 12-17-2022 Phosphate [Mass/Vol] 2.9 mg/dL Normal 2.5-4.5 [facility] Comment on above: Performed By: #### L AB15, LAB46, [id number], [id number] ####Windows Infrastructure Engineer: NED PAK ([id number])[facility])[address] [place] [address] PROTIME AND APTTon aPTT Coag (Bld) [Time] 23.7 s Normal 20.0-30.5 [facility] Comment on above: Performed By: #### L [id number] ####Windows Infrastructure Engineer: NED PAK ([id number])[facility] ([facility])[address] [place] [address] INR Coag (PPP) [Relative time] 1.1 {INR} Normal 0.9-1.1 [facility] Comment on above: Result Comment: Sadi mmended Anticoagulant Therapy: SEE BELOW----- INR of 2.0 - 3.0 : - Prophylaxis of Venous Thrombosis (high-risk surgery) - Treatment of Venous Thrombosis - Treatment of Pulmonary Embolism (Includes tissue heart valves, Acute Myocardial Infarction to prevent systemic embolism, Valvular Heart Disease, and Atrial Fibrillation)----- INR of 2.5 - 3.5 : - Mechanical Prosthetic Valves (high risk) - If oral anticoagulant therapy is used to prevent Myocardial Infarction Performed By: #### L [id number] ####Windows Infrastructure Engineer: NED PAK ([id number])[facility] ([facility])[address] [place] [address] PT Coag (PPP) [Time] 11.4 s Normal 9.0-12.0 [facility] Comment on above: Performed By: #### L [id number] ####Windows Infrastructure Engineer: NED PAK ([id number])[facility] ([facility])[address] [place] [address] HAND LT MIN 3 VIEWSon 2022 HAND LT MIN 3 VIEWS [place] [address] Patient: ZOILA WEBSTER Phone#: : [phone] Age: 77 Gender: F Pt. Type: ER Account: [id number] Location: 052 Ordering: DR. BIPIN WILD Exam Date: 12/08/2022/19:57 Family Phys: REGINALDO RILEYANTONI Charge Code: 497745 Physician: Morton Order #: [id number] Dose#: PROCEDURE: X-RAY HAND LT COMPLETE 3 VIEWS COMPARISON: None. INDICATIONS: Third digit. FINDINGS: BONES: No fracture or dislocation. Joint space loss of the 2nd and 3rd DIP articulations. Degenerative spurring at the 2nd and 3rd DIP and 1st interphalangeal articulations. Spurring at the base of the 1st metacarpal SOFT TISSUES: Soft tissue swelling of the 3rd distal digit. No radiopaque foreign object. EFFUSION: None visible. OTHER: Negative. CONCLUSION: 1. Soft tissue swelling of the 3rd distal digit. No radiopaque foreign object. Dictated by: Fallon Hernandez MD on 12/09/2022 at 8:38 Approved by: Fallon Hernandez MD on 12/09/2022 at 8:40 Normal [facility] Final Surgical Pathology Rep [facility] 11-24-2022 Final Surgical Pathology Report . Pathology Reports Accession: Collected Date/Time: Received Date/Time: Pathologist: [id number] 11/17/2022 13:51 EDT 11/20/2022 13:51 EDT MD LUCA GAUTAM Final Surgical Pathology Report DIAGNOSIS: A. DESCENDING COLON, 60 CM, BIOPSY: - MINIMAL NONSPECIFIC ACUTE INFLAMMATION WITH FOCAL SURFACE EROSION AND REACTIVE CHANGES B. SIGMOID COLON, BIOPSY: - FOCAL NONSPECIFIC SURFACE EROSION WITH MINIMAL ACUTE INFLAMMATION AND REACTIVE CHANGES COMMENT: [facility] - [id number] CLINICAL INFORMATION: COLITIS SPECIMEN: A DESCENDING COLON @ 60 CM B SIGMOID COLON GROSS DESCRIPTION: All parts labelled with patient name and [id number] A. Received in formalin, labeled descending colon, 60 cm are 3 fragments of brown-gonzalez tissue, in aggregate 0.7 x 0.5 x 0.2 cm. TS-1 B. Received in formalin, labeled sigmoid colon are 3 fragments of brown-gonzalez tissue, in aggregate 0.8 x 0.4 x 0.2 cm. TS-1 Sohail Hernández MD Dictated by SOHAIL HERNÁNDEZ MICROSCOPIC DESCRIPTION: The microscopic examination is performed, except in the case of Gross Only. Electronically Signed by Pathology Report verified by [facility] LUCA GAUTAM MD Sign out Date: 11/24/2022 10:51 Performing Lab: [facility], [address] [place] [address] Pathology Dept Disclaimer If ancillary studies were utilized, the following Laboratory Developed Test (LDT) disclaimer will apply: Under CLIA requirements, [facility] Pathology Laboratory is qualified to perform high complexity testing. For all ancillary stains, positive and negative controls stain appropriately. Performance characteristics of immunohistochemical and chromogenic in-situ hybridization tests have been determined by [facility] Pathology Laboratory. These tests are used for clinical purposes, They should not be regarded as investigational or for research. Normal [facility] ([place]) URINE CULTURE [CCL]on 2022 Bacteria identified Cx Nom (U) URCUL See Results Below See Below CULTURE, URINE ESCHERICHIA COLI >=100,000 CFU/ml Escherichia coli CLSI breakpoints for therapy of uncomplicated UTIs due to E. coli, K. pneumoniae ORGANISM: ESCHERICHIA COLI ANTIBIOTIC DANY DILUTN DANY INTERP Ampicillin <=2 Susceptible Cefazolin <=4 Susceptible Ceftriaxone <=1 Susceptible Cefepime <=1 Susceptible Ertapenem <=0.5 Susceptible Meropenem <=0.25 Susceptible Ampicillin/Sulbact <=2 Susceptible Piperacillin/Tazobac <=4 Susceptible Gentamicin <=1 Susceptible Tobramycin <=1 Susceptible Trimeth sulfameth <=20 Susceptible Ciprofloxacin <=0.25 Susceptible Nitrofurantoin <=16 Susceptible This test was developed and its performance characteristics determined by the [facility] [place] ([facility]). It has not been cleared or approved by the FDA. -[facility] is regulated under CLIA as qualified to perform high-complexity testing. This test is used for clinical purposes. It should not be regarded as investigational or for research. SOURCE: URINE [facility] [address] [place] [address] Elgin Long III, M.D. [id number] SEND TO IC NO Normal [facility] Comment on above: Performed By: #### 2 47363 #### [facility],[address] [place] [address] 89202 BMP with MG DAILYon 11-20-19 23 AGE 77 years Normal [facility] Comment on above: Performed By: #### 2 31374 #### [facility],[address] [place] [address] 15044 Anion gap [Moles/Vol] 12 mmol/L Normal - [facility] Comment on above: Performed By: #### 2 46463 #### [facility],[address] [place] [address] 90995 BMP with MG DAILY Normal [facility] Comment on above: Result Comment: BASPopeye C METABOLIC PANEL Performed By: #### 2 70012 #### [facility],[address] [place] [address] 15745 Calcium [Mass/Vol] 8.2 mg/dL Low 8.5 - 10.1 [facility] Comment on above: Performed By: #### 2 96624 #### [facility],[address] [place] [address] 83754 Chloride [Moles/Vol] 112 mmol/L High 98 - 107 [facility] Comment on above: Performed By: #### 2 62233 #### [facility],[address] [place] [address] 90175 CO2 [Moles/Vol] 23.8 mmol/L Normal 21.0 - 32.0 [facility] Comment on above: Performed By: #### 2 99649 #### [facility],[address] [place] [address] 96835 Creatinine [Mass/Vol] 0.73 mg/dL Normal 0.55 - 1.02 [facility] Comment on above: Performed By: #### 2 23429 #### [facility],[address] [place] [address] 72142 GFR/1.73 sq M.predicted among non-blacks MDRD (S/P/Bld) [Vol rate/Area] mL/min/{1.73_m2} Normal 60 - 999 [facility] Comment on above: Performed By: #### 2 08635 #### [facility],[address] [place] [address] 50732 Result Comment: {LL] {II] {HH] ACCORDING TO THE NATIONAL KIDNEY DISEASE EDUCATION PROGRAM(NKDE), A NORMAL eGFR IS A VALUE GREATER THAN OR EQUAL TO 60 ML/MIN/1.73 SQ METERS. CHRONIC KIDNEY DISEASE: <60mL/MIN/1.73 SQ METERS KIDNEY FAILURE: <15mL/MIN/1.73 SQ METERS THIS TEST SHOULD ONLY BE USED FOR PATIENTS 18 YEARS OF AGE AND OLDER. Glucose [Mass/Vol] 94 mg/dL Normal 74 - 106 [facility] Comment on above: Performed By: #### 2 84441 #### [address] [address] Magnesium [Mass/Vol] 1.8 mg/dL Normal 1.8 - 2.4 [facility] Comment on above: Performed By: #### 2 67395 #### [address] [address] Potassium [Moles/Vol] 4.0 mmol/L Normal 3.5 - 5.1 [facility] Comment on above: Performed By: #### 2 58505 #### [address] [address] Sodium [Moles/Vol] 144 mmol/L Normal 136 - 145 [facility] Comment on above: Performed By: #### 2 40964 #### [address] [address] Urea nitrogen [Mass/Vol] 6 mg/dL Low 7 - 18 [facility] Comment on above: Performed By: #### 2 52960 #### [address] [address] CBC + DIFFon 11-19-2022 Baso # 0.10 x10EE3/UL Normal 0.00 - 0.10 [facility] Comment on above: Performed By: #### 2 13317 #### [address] [address] Basophils/100 WBC (Bld) 0.6 % Normal 0.0 - 2.0 [facility] Comment on above: Performed By: #### 2 37767 #### [facility],[address] [place] [address] 42503 CBC + DIFF Normal [facility] Comment on above: Result Comment: CBC- COMPLETE BLOOD COUNT Performed By: #### 2 36558 #### [facility],[address] [place] [address] 90194 EO # 0.40 x10EE3/UL Normal 0.00 - 0.50 [facility] Comment on above: Performed By: #### 2 01395 #### [facility],[address] [place] [address] 79647 Eosinophils/100 WBC (Bld) 3.3 % Normal 0.0 - 7.0 [facility] Comment on above: Performed By: #### 2 39352 #### [facility],[address] [place] [address] 21749 Erythrocyte distribution width (RBC) [Ratio] 13.3 % Normal 12.0 - 15.6 [facility] Comment on above: Performed By: #### 2 54738 #### [facility],[address] [place] [address] 97383 Hematocrit (Bld) [Volume fraction] 34.3 % Normal 34.0 - 46.0 [facility] Comment on above: Performed By: #### 2 52313 #### [facility],[address] [place] [address] 99577 Hemoglobin (Bld) [Mass/Vol] 11.6 g/dL Low 12.0 - 16.0 [facility] Comment on above: Performed By: #### 2 09098 #### [facility],[address] [place] [address] 65570 Lymph # 2.40 x10EE3/UL Normal 0.80 - 2.80 [facility] Comment on above: Performed By: #### 2 03089 #### [facility],[address] [place] [address] 28939 Lymphocytes/100 WBC (Bld) 21.6 % Normal 20.0 - 45.0 [facility] Comment on above: Performed By: #### 2 58912 #### [facility],[address] [place] [address] MANUAL DIFF N/A Normal [facility] Comment on above: Performed By: #### 2 60047 #### [facility],[address] [place] [address] MCH (RBC) [Entitic mass] 29 pg Normal 27 - 33 [facility] Comment on above: Performed By: #### 2 08807 #### [facility],[address] [place] [address] MCHC 34 X10 3 Normal 32 - 36 [facility] Comment on above: Performed By: #### 2 00932 #### [facility],[address] [place] [address] MCV (RBC) [Entitic vol] 86 fL Normal 80 - 99 [facility] Comment on above: Performed By: #### 2 92732 #### [facility],[address] [place] [address] Andrew # 0.70 x10EE3/UL Normal 0.20 - 1.00 [facility] Comment on above: Performed By: #### 2 70235 #### [facility],[address] [place] [address] MONOS % 6.2 % Normal 0.0 - 10.0 [facility] Comment on above: Performed By: #### 2 50640 #### [facility],[address] [place] [address] Morphology Kali (Bld) [Interp] N/A Normal [facility] Comment on above: Result Comment: {CD] Performed By: #### 2 96931 #### [facility],[address] [place] [address] Neut # 7.40 x10EE3/UL High 1.50 - 7.10 [facility] Comment on above: Performed By: #### 2 95167 #### [facility],[address] [place] [address] 91925 Neutrophils/100 WBC (Bld) 68.3 % Normal 46.0 - 76.0 [facility] Comment on above: Performed By: #### 2 93245 #### [facility],[address] [place] [address] 26462 PLATELET 240 x10EE3/UL Normal 150 - 450 [facility] Comment on above: Performed By: #### 2 85246 #### [facility],[address] [place] [address] 67390 Platelet mean volume (Bld) [Entitic vol] 7.0 fL Normal 6.6 - 10.5 [facility] Comment on above: Result Comment: AUTO MATED DIFFERENTIAL Performed By: #### 2 81251 #### [facility],[address] [place] [address] 05918 RBC 3.97 x 10EE6/UL Low 4.10 - 5.30 [facility] Comment on above: Performed By: #### 2 27032 #### [facility],[address] [place] [address] 71866 WBC 10.9 x 10EE3/UL High 4.5 - 10.8 [facility] Comment on above: Performed By: #### 2 13790 #### [facility],[address] [place] [address] 16685 BMP with MG DAILYon 11-19-19 23 AGE 77 years Normal [facility] Comment on above: Performed By: #### 2 94086 #### [facility],[address] [place] [address] 95091 Anion gap [Moles/Vol] 15 mmol/L Normal 10 - 20 [facility] Comment on above: Performed By: #### 2 93965 #### [facility],[address] [place] [address] 05365 BMP with MG DAILY Normal [facility] Comment on above: Result Comment: BASI C METABOLIC PANEL Performed By: #### 2 44560 #### [facility],[address] [place] [address] Calcium [Mass/Vol] 8.8 mg/dL Normal 8.5 - 10.1 [facility] Comment on above: Performed By: #### 2 86700 #### [facility],[address] [place] [address] Chloride [Moles/Vol] 110 mmol/L High 98 - 107 [facility] Comment on above: Performed By: #### 2 92330 #### [facility],[address] [place] [address] CO2 [Moles/Vol] 22.9 mmol/L Normal 21.0 - 32.0 [facility] Comment on above: Performed By: #### 2 81142 #### [facility],[address] [place], [place] [address] Creatinine [Mass/Vol] 0.82 mg/dL Normal 0.55 - 1.02 [facility] Comment on above: Performed By: #### 2 42211 #### [facility],[address] [place], [place] [address] GFR/1.73 sq M.predicted among non-blacks MDRD (S/P/Bld) [Vol rate/Area] mL/min/{1.73_m2} Normal 60 - 999 [facility] Comment on above: Performed By: #### 2 38704 #### [facility],[address] [place] [address] Result Comment: {LL] {II] {HH] ACCORDING TO THE NATIONAL KIDNEY DISEASE EDUCATION PROGRAM(NKDE), A NORMAL eGFR IS A VALUE GREATER THAN OR EQUAL TO 60 ML/MIN/1.73 SQ METERS. CHRONIC KIDNEY DISEASE: <60mL/MIN/1.73 SQ METERS KIDNEY FAILURE: <15mL/MIN/1.73 SQ METERS THIS TEST SHOULD ONLY BE USED FOR PATIENTS 18 YEARS OF AGE AND OLDER. Glucose [Mass/Vol] 101 mg/dL Normal 74 - 106 [facility] Comment on above: Performed By: #### 2 59849 #### [facility],[address] [place] [address] 24178 Magnesium [Mass/Vol] 2.0 mg/dL Normal 1.8 - 2.4 [facility] Comment on above: Performed By: #### 2 59296 #### [facility],[address] [place] [address] 79543 Potassium [Moles/Vol] 3.8 mmol/L Normal 3.5 - 5.1 [facility] Comment on above: Performed By: #### 2 93361 #### [facility],[address] [place] [address] 78607 Sodium [Moles/Vol] 144 mmol/L Normal 136 - 145 [facility] Comment on above: Performed By: #### 2 82344 #### [facility],[address] [place], [place] [address] Urea nitrogen [Mass/Vol] 12 mg/dL Normal 7 - 18 [facility] Comment on above: Performed By: #### 2 85595 #### [facility],[address] [place] [address] 41399 CBC + DIFFon 11-18-2022 Baso # 0.10 x10EE3/UL Normal 0.00 - 0.10 [facility] Comment on above: Performed By: #### 2 47452 #### [facility],[address] [place] [address] 49038 Basophils/100 WBC (Bld) 0.9 % Normal 0.0 - 2.0 [facility] Comment on above: Performed By: #### 2 57688 #### [facility],[address] [place] [address] 45368 CBC + DIFF Normal [facility] Comment on above: Result Comment: CBC- COMPLETE BLOOD COUNT Performed By: #### 2 86834 #### [facility],[address] [place] [address] 14563 EO # 0.20 x10EE3/UL Normal 0.00 - 0.50 [facility] Comment on above: Performed By: #### 2 02222 #### [facility],[address] [place] [address] 64703 Eosinophils/100 WBC (Bld) 1.2 % Normal 0.0 - 7.0 [facility] Comment on above: Performed By: #### 2 50801 #### [facility],[address] [place], [place] [address] Erythrocyte distribution width (RBC) [Ratio] 13.1 % Normal 12.0 - 15.6 [facility] Comment on above: Performed By: #### 2 07222 #### [facility],[address] [place] [address] Hematocrit (Bld) [Volume fraction] 39.9 % Normal 34.0 - 46.0 [facility] Comment on above: Performed By: #### 2 82607 #### [facility],[address] [place] [address] Hemoglobin (Bld) [Mass/Vol] 13.0 g/dL Normal 12.0 - 16.0 [facility] Comment on above: Performed By: #### 2 41105 #### [facility],[address] [place] [address] 36263 Lymph # 2.70 x10EE3/UL Normal 0.80 - 2.80 [facility] Comment on above: Performed By: #### 2 18140 #### [facility],[address] [place] [address] 19925 Lymphocytes/100 WBC (Bld) 19.6 % Low 20.0 - 45.0 [facility] Comment on above: Performed By: #### 2 93854 #### [facility],[address] [place], [place] [address] MANUAL DIFF N/A Normal [facility] Comment on above: Performed By: #### 2 99869 #### [facility],[address] [place] [address] 33055 MCH (RBC) [Entitic mass] 28 pg Normal 27 - 33 [facility] Comment on above: Performed By: #### 2 00140 #### [facility],[address] [place] [address] 16603 MCHC 33 X10 3 Normal 32 - 36 [facility] Comment on above: Performed By: #### 2 32708 #### [facility],[address] [place] [address] 59568 MCV (RBC) [Entitic vol] 87 fL Normal 80 - 99 [facility] Comment on above: Performed By: #### 2 19897 #### [facility],[address] [place] [address] 66147 Andrew # 1.10 x10EE3/UL High 0.20 - 1.00 [facility] Comment on above: Performed By: #### 2 39480 #### [facility],[address] [place] [address] 24409 MONOS % 8.0 % Normal 0.0 - 10.0 [facility] Comment on above: Performed By: #### 2 43102 #### [facility],[address] [place] [address] 20711 Morphology Kali (Bld) [Interp] N/A Normal [facility] Comment on above: Result Comment: {CD] Performed By: #### 2 60629 #### [facility],[address] [place] [address] 63617 Neut # 9.70 x10EE3/UL High 1.50 - 7.10 [facility] Comment on above: Performed By: #### 2 50240 #### [facility],[address] [place] [address] 27778 Neutrophils/100 WBC (Bld) 70.3 % Normal 46.0 - 76.0 [facility] Comment on above: Performed By: #### 2 32135 #### [facility],[address] [place] [address] 73923 PLATELET 258 x10EE3/UL Normal 150 - 450 [facility] Comment on above: Performed By: #### 2 60846 #### [facility],[address] [place] [address] 28081 Platelet mean volume (Bld) [Entitic vol] 7.0 fL Normal 6.6 - 10.5 [facility] Comment on above: Result Comment: AUTO MATED DIFFERENTIAL Performed By: #### 2 41309 #### [facility],[address] [place] [address] 17046 RBC 4.61 x 10EE6/UL Normal 4.10 - 5.30 [facility] Comment on above: Performed By: #### 2 33559 #### [facility],[address] [place] [address] 41239 WBC 13.8 x 10EE3/UL High 4.5 - 10.8 [facility] Comment on above: Performed By: #### 2 88646 #### [facility],[address] [place] [address] 77658 APTTon 11-17-2022 aPTT Coag (Bld) [Time] 24.0 s Low 25.4 - 38.4 [facility] Comment on above: Performed By: #### 2 46138 #### [facility],[address] [place] [address] 37319 C-REACTIVE PROTEINon 023 CRP [Mass/Vol] mg/L Normal 0.00 - 0.90 [facility] Comment on above: Performed By: #### 2 73749 #### [facility],[address] [place] [address] 76036 CBC + DIFFon 11-17-2022 Baso # 0.10 x10EE3/UL Normal 0.00 - 0.10 [facility] Comment on above: Performed By: #### 2 11794 #### [facility],[address] [place] [address] 06134 Basophils/100 WBC (Bld) 0.7 % Normal 0.0 - 2.0 [facility] Comment on above: Performed By: #### 2 71099 #### [facility],[address] [place] [address] CBC + DIFF Normal [facility] Comment on above: Result Comment: CBC- COMPLETE BLOOD COUNT Performed By: #### 2 23561 #### [facility],[address] [place] [address] EO # 0.10 x10EE3/UL Normal 0.00 - 0.50 [facility] Comment on above: Performed By: #### 2 49591 #### [facility],[address] [place] [address] Eosinophils/100 WBC (Bld) 0.5 % Normal 0.0 - 7.0 [facility] Comment on above: Performed By: #### 2 78543 #### [facility],[address] [place] [address] Erythrocyte distribution width (RBC) [Ratio] 13.2 % Normal 12.0 - 15.6 [facility] Comment on above: Performed By: #### 2 41693 #### [facility],[address] [place] [address] Hematocrit (Bld) [Volume fraction] 42.6 % Normal 34.0 - 46.0 [facility] Comment on above: Performed By: #### 2 83160 #### [facility],[address] [place] [address] Hemoglobin (Bld) [Mass/Vol] 14.0 g/dL Normal 12.0 - 16.0 [facility] Comment on above: Performed By: #### 2 72569 #### [facility],[address],[place] [address] Lymph # 3.00 x10EE3/UL High 0.80 - 2.80 [facility] Comment on above: Performed By: #### 2 38112 #### [place] [address] Lymphocytes/100 WBC (Bld) 18.2 % Low 20.0 - 45.0 [facility] Comment on above: Performed By: #### 2 06296 #### [facility],[address] [place] [address] MANUAL DIFF N/A Normal [facility] Comment on above: Performed By: #### 2 62980 #### [place] [address] MCH (RBC) [Entitic mass] 28 pg Normal 27 - 33 [facility] Comment on above: Performed By: #### 2 08724 #### [place] [address] MCHC 33 X10 3 Normal 32 - 36 [facility] Comment on above: Performed By: #### 2 77702 #### [place] [address] MCV (RBC) [Entitic vol] 86 fL Normal 80 - 99 [facility] Comment on above: Performed By: #### 2 10304 #### [facility],[address] [place] [address] Andrew # 1.00 x10EE3/UL Normal 0.20 - 1.00 [facility] Comment on above: Performed By: #### 2 99783 #### [place] [address] MONOS % 6.0 % Normal 0.0 - 10.0 [facility] Comment on above: Performed By: #### 2 29926 #### [place] [address] Morphology Kali (Bld) [Interp] N/A Normal [facility] Comment on above: Result Comment: {CD] Performed By: #### 2 50060 #### [facility],[address] [place] [address] 38458 Neut # 12.10 x10EE3/UL High 1.50 - 7.10 [facility] Comment on above: Performed By: #### 2 61079 #### [facility],[address] [place] [address] 18328 Neutrophils/100 WBC (Bld) 74.6 % Normal 46.0 - 76.0 [facility] Comment on above: Performed By: #### 2 90761 #### [facility],[address] [place] [address] PLATELET 298 x10EE3/UL Normal 150 - 450 [facility] Comment on above: Performed By: #### 2 58215 #### [facility],[address] [place] [address] Platelet mean volume (Bld) [Entitic vol] 7.3 fL Normal 6.6 - 10.5 [facility] Comment on above: Result Comment: AUTO MATED DIFFERENTIAL Performed By: #### 2 89547 #### [address] [address] RBC 4.94 x 10EE6/UL Normal 4.10 - 5.30 [facility] Comment on above: Performed By: #### 2 60221 #### [facility],[address] [place] [address] 10585 WBC 16.3 x 10EE3/UL High 4.5 - 10.8 [facility] Comment on above: Performed By: #### 2 12329 #### [facility],[address] [place] [address] 72769 CMP with eGFRon 11-17-2022 AGE 77 years Normal [facility] Comment on above: Performed By: #### 2 01167 #### [place] [address],[place] [address] Albumin [Mass/Vol] 3.7 g/dL Normal 3.4 - 5.0 [facility] Comment on above: Performed By: #### 2 32348 #### [facility],[address] [place] [address] 69643 Albumin/Globulin [Mass ratio] 1.1 {ratio} Normal 0.9 - 1.6 [facility] Comment on above: Performed By: #### 2 46264 #### [facility],[address] [place] [address] 42232 ALK PHOS 44 U/L Low 46 - 116 [facility] Comment on above: Performed By: #### 2 98506 #### [facility],[address] [place] [address] 11195 ALT [Catalytic activity/Vol] 22 U/L Normal 14 - 59 [facility] Comment on above: Performed By: #### 2 20376 #### [facility],[address] [place] [address] 99996 Anion gap [Moles/Vol] 14 mmol/L Normal 10 - 20 [facility] Comment on above: Performed By: #### 2 39284 #### [facility],[address] [place] [address] 14513 AST [Catalytic activity/Vol] 20 U/L Normal 13 - 39 [facility] Comment on above: Performed By: #### 2 72675 #### [facility],[address] [place] [address] 48128 B/C RATIO 20 ratio Normal 0 - 30 [facility] Comment on above: Performed By: #### 2 37224 #### [facility],[address] [place] [address] 23563 Bilirubin [Mass/Vol] 0.4 mg/dL Normal 0.2 - 1.0 [facility] Comment on above: Performed By: #### 2 05681 #### [facility],[address] [place] [address] 05895 Calcium [Mass/Vol] 8.9 mg/dL Normal 8.5 - 10.1 [facility] Comment on above: Performed By: #### 2 43119 #### [facility],[address] [place] [address] 56363 Chloride [Moles/Vol] 105 mmol/L Normal 98 - 107 [facility] Comment on above: Performed By: #### 2 05868 #### [facility],[address] [place] [address] 28123 CMP with eGFR Normal [facility] Comment on above: Result Comment: COMP REHENSIVE METABOLIC PANEL Performed By: #### 2 77646 #### [facility],[address] [place] [address] 85498 CO2 [Moles/Vol] 27.9 mmol/L Normal 21.0 - 32.0 [facility] Comment on above: Performed By: #### 2 23971 #### [facility],[address] [place] [address] 05002 Creatinine [Mass/Vol] 0.85 mg/dL Normal 0.55 - 1.02 [facility] Comment on above: Performed By: #### 2 52863 #### [facility],[address] [place] [address] 38237 GFR/1.73 sq M.predicted among non-blacks MDRD (S/P/Bld) [Vol rate/Area] mL/min/{1.73_m2} Normal 60 - 999 [facility] Comment on above: Performed By: #### 2 19654 #### [facility],[address] [place] [address] 25424 Result Comment: ACCO RDING TO THE NATIONAL KIDNEY DISEASE EDUCATION PROGRAM(NKDE), A NORMAL eGFR IS A VALUE GREATER THAN OR EQUAL TO 60 ML/MIN/1.73 SQ METERS. CHRONIC KIDNEY DISEASE: <60mL/MIN/1.73 SQ METERS KIDNEY FAILURE: <15mL/MIN/1.73 SQ METERS THIS TEST SHOULD ONLY BE USED FOR PATIENTS 18 YEARS OF AGE AND OLDER. Globulin (S) [Mass/Vol] 3.5 g/dL Normal 1.5 - 3.8 [facility] Comment on above: Performed By: #### 2 78710 #### [facility],[address] [place] [address] 77053 Glucose [Mass/Vol] 102 mg/dL Normal 74 - 106 [facility] Comment on above: Performed By: #### 2 89224 #### [facility],[address] [place] [address] 90812 Potassium [Moles/Vol] 3.7 mmol/L Normal 3.5 - 5.1 [facility] Comment on above: Performed By: #### 2 80706 #### [facility],[address] [place] [address] 51538 Protein [Mass/Vol] 7.2 g/dL Normal 6.4 - 8.2 [facility] Comment on above: Performed By: #### 2 36623 #### [facility],[address] [place] [address] 52211 Sodium [Moles/Vol] 143 mmol/L Normal 136 - 145 [facility] Comment on above: Performed By: #### 2 39574 #### [facility],[address] [place] [address] 39399 Urea nitrogen [Mass/Vol] 17 mg/dL Normal 7 - 18 [facility] Comment on above: Performed By: #### 2 56703 #### [facility],[address] [place] [address] ABDOMEN/PELVIS [facility] 2022 CT ABDOMEN/PELVIS [place] [address] Patient: ZOILA WEBSTER Phone#: : 1945 Age: 77 Gender: F Pt. Type: ER Account: [id number] Location: 052 Ordering: ROSALIA YulisaOlga NALINIMARIA ISABEL Exam Date: 11/17/2022/21:35 Family Phys: Charge Code: 318133 Physician: Morton Order #: [id number] Dose#: [id number] PROCEDURE: CT ABDOMEN/PELVIS WITH CONTRAST COMPARISON: [facility], CT, ABDOMEN/PELVIS W CON, 03/21/2021, 21:25. INDICATIONS: Abdominal pain. TECHNIQUE: After obtaining the patient's consent, CT images were created with non-ionic intravenous contrast material. All CT scans at this facility use dose modulation, iterative reconstruction, and/or weight based dosing when appropriate to reduce radiation dose to as low as reasonably achievable. IV CONTRAST: Omnipaque 350,80ml TOTAL DOSE: 10.0 CTDIvol(mGy) FINDINGS: LIVER: There are subcentimeter right hepatic cysts.. No enlargement, atrophy, abnormal density, or significant focal lesion. BILIARY: Normal. No visible dilatation or calcification. PANCREAS: Normal. No lesion, fluid collection, ductal dilatation, or atrophy. SPLEEN: Normal. No enlargement or focal lesion. KIDNEYS: Normal. No mass, obstruction, or calcification. ADRENALS: Normal. No mass or enlargement. AORTA/VASCULAR: Extensive aortic calcification is present. No aneurysm or dissection. RETROPERITONEUM: Normal. No mass or adenopathy. BOWEL/MESENTERY: Mucosal thickening is present extending from the splenic flexure to the rectosigmoid colon. Pericolonic fat stranding is present. There is no evidence of drainable fluid collection or free air. ABDOMINAL WALL: Normal. No mass or hernia. URINARY BLADDER: Normal. No visible focal wall thickening, lesion, or calculus. PELVIC NODES: Normal. No adenopathy. PELVIC ORGANS: There is a 4.5 centimeter hypoattenuating focus with scattered calcifications in the uterus, likely uterine fibroid. BONES: Normal. No bony lesion or fracture. LUNG BASES: Normal. No visible pulmonary or pleural disease. Continued Report - Page 2 of 2 Patient: ZOILA WEBSTER Phone#: : 1945 Age: 77 Gender: F Pt. Type: ER Account: [id number] Location: 052 Ordering: ROSALIA YulisaOlga NALINIMARIA ISABEL Exam Date: 11/17/2022/21:35 Family Phys: Charge Code: 153676 Physician: Morton Order #: [id number] Dose#: 10.0 OTHER: Negative. CONCLUSION: 1. Findings consistent with nonspecific colitis involving the descending and rectosigmoid colon. 2. Hepatic cysts. 3. Probable uterine fibroid. Dictated by: Ayah Santamaria MD on 11/18/2022 at 9:45 Approved by: Ayah Santamaria MD on 11/18/2022 at 9:50 Normal [facility] LIPASEon 11-17-2022 Lipase [Catalytic activity/Vol] 113.0 U/L Normal 73.0 - 393 [facility] Comment on above: Performed By: #### 2 91796 #### [place] [address] PROTHROMBIN TIME AND INRon 0 11-17-2022 INR Coag (PPP) [Relative time] 1.0 {INR} Normal 0.8 - 1.2 [facility] Comment on above: Result Comment: T HE HEMOSIL THROMBOPLASTIN REAGENT USED IN THE PROTHROMBIN TIME TEST INTERACTS WITH THE DRUG CUBICIN (DAPTOMYCIN) AND WILL RESULT IN FALSELY ELEVATED PT / INR RESULTS INR INTERPRETATION INR INDICATION PREVENTION AND TREATMENT OF THROMBOEMBOLISM ASSOCIATED WITH: 2.0 - 3.0 ATRIAL FIBRILLATION, BIOPROSTHETIC HEART VALVES, PULMONARY EMBOLISM, VENOUS THROMBOSIS, SYSTEMIC EMBOLISM POST MYOCARDIAL INFARCTION 2.5 - 3.5 MECHANICAL HEART VALVES Performed By: #### 2 69487 #### [facility],[address] [place], [place] [id number] PROTHROMBIN TIME AND INR Normal [facility] Comment on above: Result Comment: PROT HROMBIN TIME AND INR Performed By: #### 2 66627 #### [facility],[address] [place] [address] 20379 PT-COUMADIN 11.8 sec Normal 9.3 - 14.1 [facility] Comment on above: Performed By: #### 2 61585 #### [place] [id number] TROPONIN I, HIGH SENSITIVITY on 11-17-2022 HS TROPONIN 6.1 pg/mL Normal 0.0 - 51.4 [facility] Comment on above: Performed By: #### 2 68969 #### [facility],[address] [place] [address] 51188 URINALYSISon 11-17-2022 Amorphous NONE Normal [facility] Comment on above: Performed By: #### 2 97798 #### [facility],[address] [place], [place] [id number] Bacteria 4+ Normal [facility] Comment on above: Performed By: #### 2 88707 #### [facility],[address] [place], [place] [address] Bilirubin Ql (U) Negative Normal NORMAL: NEGATIVE [facility] Comment on above: Performed By: #### 2 82220 #### [facility],[address] [place] [address] Casts NONE Normal [facility] Comment on above: Performed By: #### 2 60884 #### [facility],[address] [place] [address] 56907 Clarity (U) clear Normal NORMAL: CLEAR [facility] Comment on above: Performed By: #### 2 32759 #### [facility],[address] [place] [address] 22405 Color (U) p.yel Normal NORMAL: YELLOW [facility] Comment on above: Performed By: #### 2 29972 #### [facility],[address] [place] [address] 58386 Crystals LM Nom (Urine sed) NONE Normal [facility] Comment on above: Performed By: #### 2 96507 #### [facility],[address] [place] [address] 48663 Epi Cells OCC Normal [facility] Comment on above: Performed By: #### 2 89329 #### [facility],[address] [place] [address] 13704 Glucose Ql (U) NORM Normal NORMAL: NORMAL [facility] Comment on above: Performed By: #### 2 94985 #### [facility],[address] [place] [address] 52890 Hemoglobin Ql (U) 25 Abnormal NORMAL: NEGATIVE [facility] Comment on above: Performed By: #### 2 14793 #### [facility],[address] [place] [address] 74467 Ketone Negative Normal NORMAL: NEGATIVE [facility] Comment on above: Performed By: #### 2 01524 #### [facility],[address] [place] [address] 13727 Leukocytes 100 Abnormal NORMAL: NEGATIVE [facility] Comment on above: Performed By: #### 2 46121 #### [facility],[address] [place] [address] 23534 Mucous NONE Normal [facility] Comment on above: Performed By: #### 2 20664 #### [facility],[address] [place] [address] 87567 Nitrite Ql (U) Positive Normal NORMAL: NEGATIVE [facility] Comment on above: Performed By: #### 2 17389 #### [facility],[address] [place] [address] 12386 pH (U) 6 [pH] Normal NORMAL: 5.0-8.0 [facility] Comment on above: Performed By: #### 2 14169 #### [facility],[address] [place] [address] 34158 Protein Ql (U) Negative Normal NORMAL: NEGATIVE [facility] Comment on above: Performed By: #### 2 44119 #### [facility],[address] [place] [address] 35254 Rbc 0-5 Normal 0-3/hpf [facility] Comment on above: Performed By: #### 2 24268 #### [facility],[address] [place] [address] 07639 Sp [place] 1.005 Low NORMAL: 1.010-1.03 0 [facility] Comment on above: Performed By: #### 2 20899 #### [facility],[address] [place] [address] Specimen Type Clean catch Normal [facility] Comment on above: Performed By: #### 2 57786 #### [facility],[address] [place] [address] Urinalysis dipstick W Reflex Microscopic panel (U) SEE BELOW Normal [facility] Comment on above: Result Comment: MICR OSCOPIC Performed By: #### 2 73952 #### [facility],[address] [place] [address] Urobilinog NORM Normal NORMAL: NORMAL [facility] Comment on above: Performed By: #### 2 43368 #### [facility],[address] [place] [address] Wbc 6-10 Normal 0-5/hpf [facility] Comment on above: Performed By: #### 2 31600 #### [facility],[address] [place] [address] Yeast NONE Normal [facility] Comment on above: Performed By: #### 2 27306 #### [facility],[address] [place] [address] Vital Signs Date Time Vital Sign Value Performing Clinician Facility 03-09-2024 18:23-0500 Body temperature 98.49 [degF] Krislyn Aberegg PA Work Phone: [facility] 03-09-2024 18:23-0500 Diastolic blood pressure 80 mm[Hg] Krislyn Aberegg PA Work Phone: [facility] 03-09-2024 18:23-0500 Heart rate 108 /min Krislyn Aberegg PA Work Phone: [facility] 03-09-2024 18:23-0500 Respiratory rate 20 /min Krislyn Aberegg PA Work Phone: [facility] 03-09-2024 18:23-0500 SaO2% (BldA) [Mass fraction] 96 % Eun LOCKETT Work Phone: [facility] 03-09-2024 18:23-0500 Systolic blood pressure 120 mm[Hg] Eun LOCKETT Work Phone: [facility] 08-06-2023 16:48-0400 Body temperature 97 [degF] Indigo Casiano APRN.SENIOR INTERNAL AUDITOR Work Phone: [facility] 08-06-2023 16:48-0400 Diastolic blood pressure 62 mm[Hg] Indigo Casiano APRN.SENIOR INTERNAL AUDITOR Work Phone: [facility] 08-06-2023 16:48-0400 Heart rate 66 /min Indigo Casiano APRN.SENIOR INTERNAL AUDITOR Work Phone: [facility] 08-06-2023 16:48-0400 Respiratory rate 16 /min Indigo Casiano APRN.SENIOR INTERNAL AUDITOR Work Phone: [facility] 08-06-2023 16:48-0400 SaO2% (BldA) [Mass fraction] 98 % Indigo Casiano APRN.SENIOR INTERNAL AUDITOR Work Phone: [facility] 08-06-2023 16:48-0400 Systolic blood pressure 124 mm[Hg] Indigo Casiano APRN.SENIOR INTERNAL AUDITOR Work Phone: [facility] 07-29-2023 15:20-0400 Body temperature 96.8 [degF] [facility] 07-29-2023 15:20-0400 Diastolic blood pressure 75 mm[Hg] [facility] 07-29-2023 15:20-0400 Heart rate 88 /min [facility] 07-29-2023 15:20-0400 Respiratory rate 16 /min [facility] 07-29-2023 15:20-0400 SaO2% (BldA) [Mass fraction] 97 % [facility] 07-29-2023 15:20-0400 Systolic blood pressure 133 mm[Hg] [facility] 07-29-2023 12:36-0400 Body height 147.32 cm [facility] 07-28-2023 14:54-0400 Body temperature 96.8 [degF] [facility] 07-28-2023 14:54-0400 Diastolic blood pressure 76 mm[Hg] [facility] 07-28-2023 14:54-0400 Heart rate 88 /min [facility] 07-28-2023 14:54-0400 Respiratory rate 16 /min [facility] 07-28-2023 14:54-0400 SaO2% (BldA) [Mass fraction] 97 % [facility] 07-28-2023 14:54-0400 Systolic blood pressure 140 mm[Hg] [facility] 07-28-2023 13:08-0400 Body height 147.32 cm [facility] 07-27-2023 14:01-0400 Body temperature 97 [degF] [facility] 07-27-2023 14:01-0400 Diastolic blood pressure 66 mm[Hg] [facility] 07-27-2023 14:01-0400 Heart rate 84 /min [facility] 07-27-2023 14:01-0400 Respiratory rate 16 /min [facility] 07-27-2023 14:01-0400 SaO2% (BldA) [Mass fraction] 100 % [facility] 07-27-2023 14:01-0400 Systolic blood pressure 141 mm[Hg] [facility] 07-27-2023 12:15-0400 Body height 147.32 cm [facility] 07-26-2023 15:10-0400 Body temperature 97.4 [degF] [facility] 07-26-2023 15:10-0400 Diastolic blood pressure 70 mm[Hg] [facility] 07-26-2023 15:10-0400 Heart rate 100 /min [facility] 07-26-2023 15:10-0400 Respiratory rate 16 /min [facility] 07-26-2023 15:10-0400 SaO2% (BldA) [Mass fraction] 100 % [facility] 07-26-2023 15:10-0400 Systolic blood pressure 154 mm[Hg] [facility] 07-26-2023 13:20-0400 Body height 147.32 cm [facility] 07-23-2023 14:35-0400 Body temperature 97 [degF] [facility] 07-23-2023 14:35-0400 Diastolic blood pressure 94 mm[Hg] [facility] 07-23-2023 14:35-0400 Heart rate 91 /min [facility] 07-23-2023 14:35-0400 Respiratory rate 16 /min [facility] 07-23-2023 14:35-0400 SaO2% (BldA) [Mass fraction] 97 % [facility] 07-23-2023 14:35-0400 Systolic blood pressure 156 mm[Hg] [facility] 07-23-2023 12:45-0400 Body height 147.32 cm [facility] 07-22-2023 14:44-0400 Body temperature 96.6 [degF] [facility] 07-22-2023 14:44-0400 Diastolic blood pressure 74 mm[Hg] [facility] 07-22-2023 14:44-0400 Heart rate 81 /min [facility] 07-22-2023 14:44-0400 Respiratory rate 16 /min [facility] 07-22-2023 14:44-0400 SaO2% (BldA) [Mass fraction] 97 % [facility] 07-22-2023 14:44-0400 Systolic blood pressure 164 mm[Hg] [facility] 07-22-2023 13:00-0400 Body height 147.32 cm [facility] 07-21-2023 14:57-0400 Body temperature 97.2 [degF] [facility] 07-21-2023 14:57-0400 Diastolic blood pressure 81 mm[Hg] [facility] 07-21-2023 14:57-0400 Respiratory rate 16 /min [facility] 07-21-2023 14:57-0400 Systolic blood pressure 146 mm[Hg] [facility] 07-21-2023 13:09-0400 Body height 147.32 cm [facility] 07-21-2023 13:09-0400 Heart rate 88 /min [facility] 07-21-2023 13:09-0400 SaO2% (BldA) [Mass fraction] 98 % [facility] 07-20-2023 14:49-0400 Diastolic blood pressure 75 mm[Hg] [facility] 07-20-2023 14:49-0400 Heart rate 82 /min [facility] 07-20-2023 14:49-0400 Systolic blood pressure 168 mm[Hg] [facility] 07-20-2023 13:10-0400 Body height 147.32 cm [facility] 07-20-2023 13:10-0400 Body temperature 97.5 [degF] [facility] 07-20-2023 13:10-0400 Respiratory rate 16 /min [facility] 07-20-2023 13:10-0400 SaO2% (BldA) [Mass fraction] 97 % [facility] 07-19-2023 15:09-0400 Diastolic blood pressure 78 mm[Hg] [facility] 07-19-2023 15:09-0400 Heart rate 82 /min [facility] 07-19-2023 15:09-0400 Respiratory rate 16 /min [facility] 07-19-2023 15:09-0400 SaO2% (BldA) [Mass fraction] 98 % [facility] 07-19-2023 15:09-0400 Systolic blood pressure 147 mm[Hg] [facility] 07-19-2023 13:15-0400 Body height 147.32 cm [facility] 07-19-2023 13:15-0400 Body temperature 97.2 [degF] [facility] 07-18-2023 12:50-0400 Body temperature 97.2 [degF] [facility] 07-18-2023 12:50-0400 Diastolic blood pressure 58 mm[Hg] [facility] 07-18-2023 12:50-0400 Heart rate 87 /min [facility] 07-18-2023 12:50-0400 Respiratory rate 18 /min [facility] 07-18-2023 12:50-0400 SaO2% (BldA) [Mass fraction] 98 % [facility] 07-18-2023 12:50-0400 Systolic blood pressure 124 mm[Hg] [facility] 07-17-2023 15:28-0400 Body temperature 97.8 [degF] [facility] 07-17-2023 15:28-0400 Diastolic blood pressure 71 mm[Hg] [facility] 07-17-2023 15:28-0400 Heart rate 85 /min [facility] 07-17-2023 15:28-0400 Respiratory rate 18 /min [facility] 07-17-2023 15:28-0400 SaO2% (BldA) [Mass fraction] 100 % [facility] 07-17-2023 15:28-0400 Systolic blood pressure 155 mm[Hg] [facility] 07-17-2023 12:52-0400 Body temperature 97.8 [degF] [facility] 07-17-2023 12:52-0400 Diastolic blood pressure 55 mm[Hg] [facility] 07-17-2023 12:52-0400 Heart rate 99 /min [facility] 07-17-2023 12:52-0400 Respiratory rate 18 /min [facility] 07-17-2023 12:52-0400 SaO2% (BldA) [Mass fraction] 100 % [facility] 07-17-2023 12:52-0400 Systolic blood pressure 143 mm[Hg] [facility] 07-16-2023 14:18-0400 Body temperature 97 [degF] [facility] 07-16-2023 14:18-0400 Diastolic blood pressure 82 mm[Hg] [facility] 07-16-2023 14:18-0400 Heart rate 90 /min [facility] 07-16-2023 14:18-0400 Respiratory rate 16 /min [facility] 07-16-2023 14:18-0400 SaO2% (BldA) [Mass fraction] 98 % [facility] 07-16-2023 14:18-0400 Systolic blood pressure 129 mm[Hg] [facility] 07-16-2023 12:27-0400 Body height 147.32 cm [facility] 07-15-2023 14:35-0400 Body temperature 97 [degF] [facility] 07-15-2023 14:35-0400 Diastolic blood pressure 70 mm[Hg] [facility] 07-15-2023 14:35-0400 Heart rate 94 /min [facility] 07-15-2023 14:35-0400 Respiratory rate 16 /min [facility] 07-15-2023 14:35-0400 SaO2% (BldA) [Mass fraction] 98 % [facility] 07-15-2023 14:35-0400 Systolic blood pressure 146 mm[Hg] [facility] 07-15-2023 12:54-0400 Body height 147.32 cm [facility] 07-14-2023 15:01-0400 Heart rate 78 /min [facility] 07-14-2023 15:01-0400 Respiratory rate 16 /min [facility] 07-14-2023 13:15-0400 Body height 147.32 cm [facility] 07-14-2023 13:15-0400 Body temperature 97.6 [degF] [facility] 07-14-2023 13:15-0400 Diastolic blood pressure 64 mm[Hg] [facility] 07-14-2023 13:15-0400 SaO2% (BldA) [Mass fraction] 95 % [facility] 07-14-2023 13:15-0400 Systolic blood pressure 163 mm[Hg] [facility] 07-13-2023 15:30-0400 Body temperature 96.5 [degF] [facility] 07-13-2023 15:30-0400 Diastolic blood pressure 73 mm[Hg] [facility] 07-13-2023 15:30-0400 Heart rate 90 /min [facility] 07-13-2023 15:30-0400 Respiratory rate 16 /min [facility] 07-13-2023 15:30-0400 SaO2% (BldA) [Mass fraction] 100 % [facility] 07-13-2023 15:30-0400 Systolic blood pressure 169 mm[Hg] [facility] 07-13-2023 13:39-0400 Body height 147.32 cm [facility] 07-12-2023 14:37-0400 Body temperature 96.5 [degF] [facility] 07-12-2023 14:37-0400 Diastolic blood pressure 89 mm[Hg] [facility] 07-12-2023 14:37-0400 Heart rate 81 /min [facility] 07-12-2023 14:37-0400 Respiratory rate 16 /min [facility] 07-12-2023 14:37-0400 SaO2% (BldA) [Mass fraction] 97 % [facility] 07-12-2023 14:37-0400 Systolic blood pressure 135 mm[Hg] [facility] 07-12-2023 12:48-0400 Body height 147.32 cm [facility] 07-11-2023 13:15-0400 Body temperature 98.3 [degF] [facility] 07-11-2023 13:15-0400 Diastolic blood pressure 71 mm[Hg] [facility] 07-11-2023 13:15-0400 Heart rate 93 /min [facility] 07-11-2023 13:15-0400 Respiratory rate 18 /min [facility] 07-11-2023 13:15-0400 SaO2% (BldA) [Mass fraction] 98 % [facility] 07-11-2023 13:15-0400 Systolic blood pressure 125 mm[Hg] [facility] 07-10-2023 13:07-0400 Body height 147.32 cm [facility] 07-10-2023 13:07-0400 Body mass index (BMI) [Ratio] 22.9 kg/m2 [facility] 07-10-2023 13:07-0400 Body temperature 97.8 [degF] [facility] 07-10-2023 13:07-0400 Body weight 49.89 kg [facility] 07-10-2023 13:07-0400 Diastolic blood pressure 75 mm[Hg] [facility] 07-10-2023 13:07-0400 Heart rate 90 /min [facility] 07-10-2023 13:07-0400 Respiratory rate 18 /min [facility] 07-10-2023 13:07-0400 SaO2% (BldA) [Mass fraction] 99 % [facility] 07-10-2023 13:07-0400 Systolic blood pressure 141 mm[Hg] [facility] 07-09-2023 14:18-0400 Body temperature 96.1 [degF] [facility] 07-09-2023 14:18-0400 Diastolic blood pressure 92 mm[Hg] [facility] 07-09-2023 14:18-0400 Heart rate 84 /min [facility] 07-09-2023 14:18-0400 Respiratory rate 16 /min [facility] 07-09-2023 14:18-0400 SaO2% (BldA) [Mass fraction] 100 % [facility] 07-09-2023 14:18-0400 Systolic blood pressure 152 mm[Hg] [facility] 07-09-2023 12:34-0400 Body height 147.32 cm [facility] 07-09-2023 12:34-0400 Body mass index (BMI) [Ratio] 24 kg/m2 [facility] 07-09-2023 12:34-0400 Body weight 52.16 kg [facility] 07-08-2023 14:47-0400 Body temperature 97.4 [degF] [facility] 07-08-2023 14:47-0400 Diastolic blood pressure 76 mm[Hg] [facility] 07-08-2023 14:47-0400 Heart rate 86 /min [facility] 07-08-2023 14:47-0400 Respiratory rate 16 /min [facility] 07-08-2023 14:47-0400 SaO2% (BldA) [Mass fraction] 99 % [facility] 07-08-2023 14:47-0400 Systolic blood pressure 136 mm[Hg] [facility] 07-08-2023 13:08-0400 Body height 147.32 cm [facility] 07-07-2023 14:45-0400 Body temperature 97.9 [degF] [facility] 07-07-2023 14:45-0400 Diastolic blood pressure 79 mm[Hg] [facility] 07-07-2023 14:45-0400 Heart rate 98 /min [facility] 07-07-2023 14:45-0400 Respiratory rate 16 /min [facility] 07-07-2023 14:45-0400 Systolic blood pressure 141 mm[Hg] [facility] 07-07-2023 13:03-0400 Body height 147.32 cm [facility] 07-06-2023 15:10-0400 Body temperature 97.1 [degF] [facility] 07-06-2023 15:10-0400 Diastolic blood pressure 79 mm[Hg] [facility] 07-06-2023 15:10-0400 Heart rate 87 /min [facility] 07-06-2023 15:10-0400 Respiratory rate 16 /min [facility] 07-06-2023 15:10-0400 Systolic blood pressure 148 mm[Hg] [facility] 07-06-2023 13:24-0400 Body height 147.32 cm [facility] 07-06-2023 13:24-0400 SaO2% (BldA) [Mass fraction] 98 % [facility] 07-05-2023 15:03-0400 Body temperature 97.8 [degF] [facility] 07-05-2023 15:03-0400 Diastolic blood pressure 69 mm[Hg] [facility] 07-05-2023 15:03-0400 Heart rate 106 /min [facility] 07-05-2023 15:03-0400 Respiratory rate 16 /min [facility] 07-05-2023 15:03-0400 SaO2% (BldA) [Mass fraction] 98 % [facility] 07-05-2023 15:03-0400 Systolic blood pressure 141 mm[Hg] [facility] 07-05-2023 13:18-0400 Body height 147.32 cm [facility] 07-03-2023 13:21-0400 Body temperature 97.8 [degF] [facility] 07-03-2023 13:21-0400 Diastolic blood pressure 80 mm[Hg] [facility] 07-03-2023 13:21-0400 Heart rate 95 /min [facility] 07-03-2023 13:21-0400 Respiratory rate 18 /min [facility] 07-03-2023 13:21-0400 SaO2% (BldA) [Mass fraction] 98 % [facility] 07-03-2023 13:21-0400 Systolic blood pressure 138 mm[Hg] [facility] 07-02-2023 14:48-0400 Diastolic blood pressure 59 mm[Hg] [facility] 07-02-2023 14:48-0400 Heart rate 89 /min [facility] 07-02-2023 14:48-0400 Respiratory rate 16 /min [facility] 07-02-2023 14:48-0400 Systolic blood pressure 178 mm[Hg] [facility] 07-02-2023 13:06-0400 Body height 147.32 cm [facility] 07-02-2023 13:06-0400 Body temperature 97.9 [degF] [facility] 07-02-2023 13:06-0400 SaO2% (BldA) [Mass fraction] 97 % [facility] 07-01-2023 14:51-0400 Diastolic blood pressure 84 mm[Hg] [facility] 07-01-2023 14:51-0400 Heart rate 95 /min [facility] 07-01-2023 14:51-0400 Systolic blood pressure 141 mm[Hg] [facility] 07-01-2023 13:14-0400 Body height 147.32 cm [facility] 07-01-2023 13:14-0400 Body temperature 97.2 [degF] [facility] 07-01-2023 13:14-0400 Respiratory rate 16 /min [facility] 06-30-2023 14:56-0400 Diastolic blood pressure 72 mm[Hg] [facility] 06-30-2023 14:56-0400 Heart rate 105 /min [facility] 06-30-2023 14:56-0400 Respiratory rate 16 /min [facility] 06-30-2023 14:56-0400 Systolic blood pressure 132 mm[Hg] [facility] 06-30-2023 13:11-0400 Body height 147.32 cm [facility] 06-30-2023 13:11-0400 Body mass index (BMI) [Ratio] 21 kg/m2 [facility] 06-30-2023 13:11-0400 Body temperature 96.9 [degF] [facility] 06-30-2023 13:11-0400 Body weight 45.72 kg [facility] 06-30-2023 13:11-0400 SaO2% (BldA) [Mass fraction] 96 % [facility] 06-29-2023 15:16-0400 Diastolic blood pressure 58 mm[Hg] [facility] 06-29-2023 15:16-0400 Heart rate 88 /min [facility] 06-29-2023 15:16-0400 Systolic blood pressure 122 mm[Hg] [facility] 06-29-2023 13:25-0400 Body height 147.32 cm [facility] 06-29-2023 13:25-0400 Body mass index (BMI) [Ratio] 24 kg/m2 [facility] 06-29-2023 13:25-0400 Body temperature 96.9 [degF] [facility] 06-29-2023 13:25-0400 Body weight 52.16 kg [facility] 06-29-2023 13:25-0400 Respiratory rate 16 /min [facility] 06-29-2023 13:25-0400 SaO2% (BldA) [Mass fraction] 97 % [facility] 06-28-2023 14:09-0400 Body temperature 97.1 [degF] [facility] 06-28-2023 14:09-0400 Diastolic blood pressure 70 mm[Hg] [facility] 06-28-2023 14:09-0400 Heart rate 97 /min [facility] 06-28-2023 14:09-0400 Respiratory rate 16 /min [facility] 06-28-2023 14:09-0400 SaO2% (BldA) [Mass fraction] 99 % [facility] 06-28-2023 14:09-0400 Systolic blood pressure 139 mm[Hg] [facility] 06-28-2023 12:21-0400 Body height 147.32 cm [facility] 06-27-2023 13:08-0400 Diastolic blood pressure 67 mm[Hg] [facility] 06-27-2023 13:08-0400 Heart rate 96 /min [facility] 06-27-2023 13:08-0400 Systolic blood pressure 129 mm[Hg] [facility] 06-25-2023 14:58-0400 Body temperature 97.7 [degF] [facility] 06-25-2023 14:58-0400 Diastolic blood pressure 74 mm[Hg] [facility] 06-25-2023 14:58-0400 Heart rate 99 /min [facility] 06-25-2023 14:58-0400 Respiratory rate 16 /min [facility] 06-25-2023 14:58-0400 SaO2% (BldA) [Mass fraction] 99 % [facility] 06-25-2023 14:58-0400 Systolic blood pressure 136 mm[Hg] [facility] 06-25-2023 13:06-0400 Body height 147.32 cm [facility] 06-24-2023 14:59-0400 Body temperature 97.4 [degF] [facility] 06-24-2023 14:59-0400 Diastolic blood pressure 77 mm[Hg] [facility] 06-24-2023 14:59-0400 Heart rate 103 /min [facility] 06-24-2023 14:59-0400 Respiratory rate 16 /min [facility] 06-24-2023 14:59-0400 SaO2% (BldA) [Mass fraction] 99 % [facility] 06-24-2023 14:59-0400 Systolic blood pressure 146 mm[Hg] [facility] 06-24-2023 13:01-0400 Body height 147.32 cm [facility] 06-23-2023 15:08-0400 Body temperature 97.1 [degF] [facility] 06-23-2023 15:08-0400 Diastolic blood pressure 64 mm[Hg] [facility] 06-23-2023 15:08-0400 Heart rate 95 /min [facility] 06-23-2023 15:08-0400 Respiratory rate 16 /min [facility] 06-23-2023 15:08-0400 Systolic blood pressure 142 mm[Hg] [facility] 06-23-2023 13:15-0400 Body height 147.32 cm [facility] 06-23-2023 13:15-0400 SaO2% (BldA) [Mass fraction] 98 % [facility] 06-22-2023 15:28-0400 Body temperature 97.3 [degF] [facility] 06-22-2023 15:28-0400 Diastolic blood pressure 108 mm[Hg] [facility] 06-22-2023 15:28-0400 Heart rate 94 /min [facility] 06-22-2023 15:28-0400 Respiratory rate 14 /min [facility] 06-22-2023 15:28-0400 SaO2% (BldA) [Mass fraction] 98 % [facility] 06-22-2023 15:28-0400 Systolic blood pressure 144 mm[Hg] [facility] 06-22-2023 13:42-0400 Body height 147.32 cm [facility] 06-21-2023 14:48-0400 Diastolic blood pressure 52 mm[Hg] [facility] 06-21-2023 14:48-0400 Heart rate 80 /min [facility] 06-21-2023 14:48-0400 Systolic blood pressure 128 mm[Hg] [facility] 06-21-2023 13:06-0400 Body height 147.32 cm [facility] 06-21-2023 13:06-0400 Body temperature 97.2 [degF] [facility] 06-21-2023 13:06-0400 Respiratory rate 16 /min [facility] 06-21-2023 13:06-0400 SaO2% (BldA) [Mass fraction] 97 % [facility] 06-20-2023 13:24-0400 Body temperature 98.3 [degF] [facility] 06-20-2023 13:24-0400 Diastolic blood pressure 60 mm[Hg] [facility] 06-20-2023 13:24-0400 Heart rate 93 /min [facility] 06-20-2023 13:24-0400 Respiratory rate 16 /min [facility] 06-20-2023 13:24-0400 SaO2% (BldA) [Mass fraction] 99 % [facility] 06-20-2023 13:24-0400 Systolic blood pressure 126 mm[Hg] [facility] 06-19-2023 13:48-0400 Body temperature 97.5 [degF] [facility] 06-19-2023 13:48-0400 Diastolic blood pressure 73 mm[Hg] [facility] 06-19-2023 13:48-0400 Heart rate 85 /min [facility] 06-19-2023 13:48-0400 Respiratory rate 16 /min [facility] 06-19-2023 13:48-0400 SaO2% (BldA) [Mass fraction] 99 % [facility] 06-19-2023 13:48-0400 Systolic blood pressure 132 mm[Hg] [facility] 06-19-2023 13:18-0400 Body height 147.32 cm [facility] 06-19-2023 13:18-0400 Body mass index (BMI) [Ratio] 20.5 kg/m2 [facility] 06-19-2023 13:18-0400 Body weight 44.45 kg [facility] 06-18-2023 14:47-0400 Body temperature 96.9 [degF] [facility] 06-18-2023 14:47-0400 Diastolic blood pressure 79 mm[Hg] [facility] 06-18-2023 14:47-0400 Heart rate 93 /min [facility] 06-18-2023 14:47-0400 Respiratory rate 16 /min [facility] 06-18-2023 14:47-0400 SaO2% (BldA) [Mass fraction] 100 % [facility] 06-18-2023 14:47-0400 Systolic blood pressure 153 mm[Hg] [facility] 06-18-2023 13:02-0400 Body mass index (BMI) [Ratio] 20.9 kg/m2 [facility] 06-18-2023 13:02-0400 Body weight 45.35 kg [facility] 06-17-2023 15:16-0400 Diastolic blood pressure 65 mm[Hg] [facility] 06-17-2023 15:16-0400 Heart rate 88 /min [facility] 06-17-2023 15:16-0400 Systolic blood pressure 112 mm[Hg] [facility] 06-17-2023 13:33-0400 Body height 147.32 cm [facility] 06-17-2023 13:33-0400 Body temperature 97.4 [degF] [facility] 06-17-2023 13:33-0400 Respiratory rate 16 /min [facility] 06-17-2023 13:33-0400 SaO2% (BldA) [Mass fraction] 94 % [facility] 06-16-2023 15:07-0400 Diastolic blood pressure 64 mm[Hg] [facility] 06-16-2023 15:07-0400 Heart rate 65 /min [facility] 06-16-2023 15:07-0400 Systolic blood pressure 128 mm[Hg] [facility] 06-16-2023 13:25-0400 Body height 147.32 cm [facility] 06-16-2023 13:25-0400 Body temperature 97.1 [degF] [facility] 06-16-2023 13:25-0400 Respiratory rate 16 /min [facility] 06-16-2023 13:25-0400 SaO2% (BldA) [Mass fraction] 96 % [facility] 06-15-2023 15:07-0400 Body temperature 96.5 [degF] [facility] 06-15-2023 15:07-0400 Diastolic blood pressure 62 mm[Hg] [facility] 06-15-2023 15:07-0400 Heart rate 85 /min [facility] 06-15-2023 15:07-0400 Systolic blood pressure 128 mm[Hg] [facility] 06-15-2023 13:26-0400 Body height 147.32 cm [facility] 06-15-2023 13:26-0400 Respiratory rate 16 /min [facility] 06-15-2023 13:26-0400 SaO2% (BldA) [Mass fraction] 100 % [facility] 06-14-2023 13:53-0400 Body height 147.32 cm [facility] 06-14-2023 13:53-0400 Body temperature 97.5 [degF] [facility] 06-14-2023 13:53-0400 Diastolic blood pressure 66 mm[Hg] [facility] 06-14-2023 13:53-0400 Heart rate 88 /min [facility] 06-14-2023 13:53-0400 Respiratory rate 16 /min [facility] 06-14-2023 13:53-0400 Systolic blood pressure 131 mm[Hg] [facility] 06-12-2023 15:10-0400 SaO2% (BldA) [Mass fraction] 100 % [facility] 06-11-2023 16:19-0400 Body temperature 98.1 [degF] [facility] 06-11-2023 16:19-0400 Diastolic blood pressure 73 mm[Hg] [facility] 06-11-2023 16:19-0400 Heart rate 87 /min [facility] 06-11-2023 16:19-0400 Respiratory rate 18 /min [facility] 06-11-2023 16:19-0400 SaO2% (BldA) [Mass fraction] 100 % [facility] 06-11-2023 16:19-0400 Systolic blood pressure 156 mm[Hg] [facility] Encounters Encounter Date Encounter Type Care Provider Facility Start: 12-21-2024 End: 12-21-2024 ambulatory [facility] Facility:[facility] Start: 12-14-2024 End: 12-14-2024 ambulatory [place] Facility:[facility] Start: 04-13-2024 End: 04-13-2024 Telephone encounter Mirella Knight RN [facility] Comment on above: Care Coordination (L kofi Nodule Follow Up) Start: 04-03-2024 End: 04-08-2024 ambulatory Julia Lee Facility:[facility] Start: 03-19-2024 ambulatory Buck Mcdaniels Facility: [facility] Start: 03-19-2024 End: 03-21-2024 Evaluation and management of inpatient Buck Mcdaniels Facility:[facility] Start: 03-09-2024 End: 03-09-2024 ambulatory SULMA MALONE Facility:[facility] Start: 03-09-2024 End: 03-09-2024 Patient encounter procedure Eun Thomas PA Work Phone: [facility] Comment on above: Intertrigo (Primary Dx) Start: 01-27-2024 End: 01-28-2024 ambulatory NADYA PRABHAKAR Facility:[id number] Start: 01-26-2024 End: 01-27-2024 Emergency department patient visit Nadya Prabhakar Facility:[facility] Start: 01-26-2024 End: 01-26-2024 ambulatory ANNAMARIA LAGUERRE Facility:[facility] Start: 09-09-2023 End: 09-13-2023 ambulatory SULMA MALONE Facility:[facility] Start: 09-09-2023 End: 09-13-2023 Outreach Lab MOLINA FAITH MD [facility] Start: 08-06-2023 End: 08-06-2023 Patient encounter procedure Indigo Casiano APRN.CNP Work Phone: [facility] Comment on above: Fungal infection (Pr imary Dx) Start: 07-29-2023 End: 07-29-2023 Patient encounter procedure [facility] Work Phone: Start: 07-29-2023 End: 07-29-2023 ambulatory Roman [facility] Work Phone: Start: 07-28-2023 End: 07-28-2023 Patient encounter procedure [facility] Work Phone: Start: 07-28-2023 End: 07-28-2023 ambulatory Roman [facility] Work Phone: Start: 07-27-2023 End: 07-27-2023 Patient encounter procedure [facility] Work Phone: Start: 07-27-2023 End: 07-27-2023 ambulatory Sulma Faganer [facility] Work Phone: Start: 07-26-2023 End: 07-26-2023 Patient encounter procedure [facility] Work Phone: Start: 07-26-2023 End: 07-26-2023 ambulatory Roman [facility] Work Phone: Start: 07-25-2023 End: 07-25-2023 Patient encounter procedure [facility] Work Phone: Start: 07-25-2023 End: 07-25-2023 ambulatory Roman [facility] Work Phone: Start: 07-24-2023 End: 07-24-2023 Patient encounter procedure [facility] Work Phone: Start: 07-24-2023 End: 07-24-2023 ambulatory Roman [facility] Work Phone: Start: 07-23-2023 End: 07-23-2023 Patient encounter procedure [facility] Work Phone: Start: 07-23-2023 End: 07-23-2023 ambulatory Roman [facility] Work Phone: Start: 07-22-2023 End: 07-22-2023 Patient encounter procedure [facility] Work Phone: Start: 07-22-2023 End: 07-22-2023 ambulatory Roman [facility] Work Phone: Start: 07-21-2023 End: 07-21-2023 Patient encounter procedure [facility] Work Phone: Start: 07-21-2023 End: 07-21-2023 ambulatory Roman [facility] Work Phone: Start: 07-20-2023 End: 07-20-2023 Patient encounter procedure [facility] Work Phone: Start: 07-20-2023 End: 07-20-2023 ambulatory Sulma Catherine [facility] Work Phone: Start: 07-19-2023 End: 07-19-2023 Patient encounter procedure [facility] Work Phone: Start: 07-19-2023 End: 07-19-2023 ambulatory Roman [facility] Work Phone: Start: 07-18-2023 End: 07-18-2023 Patient encounter procedure [facility] Work Phone: Start: 07-18-2023 End: 07-18-2023 ambulatory Rmoan [facility] Work Phone: Start: 07-17-2023 End: 07-17-2023 Patient encounter procedure [facility] Work Phone: Start: 07-17-2023 End: 07-17-2023 ambulatory Roman [facility] Work Phone: Start: 07-16-2023 End: 07-16-2023 Patient encounter procedure [facility] Work Phone: Start: 07-16-2023 End: 07-16-2023 ambulatory Roman [facility] Work Phone: Start: 07-15-2023 End: 07-15-2023 Patient encounter procedure [facility] Work Phone: Start: 07-15-2023 End: 07-15-[facility] Start: 07-14-2023 End: 07-14-2023 Patient encounter procedure [facility] Work Phone: Start: 07-14-2023 End: 07-14-2023 [facility] Start: 07-13-2023 End: 07-13-2023 Patient encounter procedure [facility] Work Phone: Start: 07-13-2023 End: 07-13-2023 ambulatory Sulma Faganer [facility] Work Phone: Start: 07-12-2023 End: 07-12-2023 Patient encounter procedure [facility] Work Phone: Start: 07-12-2023 End: 07-12-2023 [facility] Start: 07-11-2023 End: 07-11-2023 Patient encounter procedure [facility] Work Phone: Start: 07-11-2023 End: 07-11-2023 [facility] Start: 07-10-2023 End: 07-10-2023 Patient encounter procedure [facility] Work Phone: Start: 07-10-2023 End: 07-10-2023 [facility] Start: 07-09-2023 End: 07-09-2023 Patient encounter procedure [facility] Work Phone: Start: 07-09-2023 End: 07-09-2023 [facility] Start: 07-08-2023 End: 07-08-2023 Patient encounter procedure [facility] Work Phone: Start: 07-08-2023 End: 07-08-2023 ambulatory Roman [facility] Work Phone: Start: 07-07-2023 End: 07-07-2023 Patient encounter procedure [facility] Work Phone: Start: 07-07-2023 End: 07-07-2023 ambulatory Roman [facility] Work Phone: Start: 07-06-2023 End: 07-06-2023 Patient encounter procedure [facility] Work Phone: Start: 07-06-2023 End: 07-06-2023 ambulatory Roman [facility] Work Phone: Start: 07-05-2023 End: 07-05-2023 Patient encounter procedure [facility] Work Phone: Start: 07-05-2023 End: 07-05-2023 ambulatory Roman [facility] Work Phone: Start: 07-04-2023 End: 07-04-2023 Patient encounter procedure [facility] Work Phone: Start: 07-04-2023 End: 07-04-2023 ambulatory Roman [facility] Work Phone: Start: 07-03-2023 End: 07-03-2023 Patient encounter procedure [facility] Work Phone: Start: 07-03-2023 End: 07-03-2023 ambulatory [facility] Work Phone: Start: 07-02-2023 End: 07-02-2023 Patient encounter procedure [facility] Work Phone: Start: 07-02-2023 End: 07-02-2023 ambulatory [facility] Work Phone: Start: 07-01-2023 End: 07-01-2023 Patient encounter procedure [facility] Work Phone: Start: 07-01-2023 End: 07-01-2023 ambulatory [facility] Work Phone: Start: 06-30-2023 End: 06-30-2023 Patient encounter procedure [facility] Work Phone: Start: 06-30-2023 End: 06-30-2023 ambulatory [facility] Work Phone: Start: 06-29-2023 End: 06-29-2023 Patient encounter procedure [facility] Work Phone: Start: 06-29-2023 End: 06-29-2023 ambulatory [facility] Work Phone: Start: 06-28-2023 End: 06-28-2023 Patient encounter procedure [facility] Work Phone: Start: 06-28-2023 End: 06-28-2023 ambulatory [facility] Work Phone: Start: 06-27-2023 End: 06-27-2023 Patient encounter procedure [facility] Work Phone: Start: 06-27-2023 End: 06-27-2023 ambulatory [facility] Work Phone: Start: 06-26-2023 End: 06-26-2023 Patient encounter procedure [facility] Work Phone: Start: 06-26-2023 End: 06-26-2023 ambulatory [facility] Work Phone: Start: 06-25-2023 End: 06-25-2023 Patient encounter procedure [facility] Work Phone: Start: 06-25-2023 End: 06-25-2023 ambulatory [facility] Work Phone: Start: 06-24-2023 End: 06-24-2023 Patient encounter procedure [facility] Work Phone: Start: 06-24-2023 End: 06-24-2023 ambulatory [facility] Work Phone: Start: 06-23-2023 End: 06-23-2023 Patient encounter procedure [facility] Work Phone: Start: 06-23-2023 End: 06-23-2023 ambulatory [facility] Work Phone: Start: 06-22-2023 End: 06-26-2023 ambulatory MOLINA FAITH MD Facility:B Start: 06-22-2023 End: 06-26-2023 Outreach Lab MOLINA FAITH MD [facility] Start: 06-22-2023 End: 06-22-2023 Patient encounter procedure [facility] Work Phone: Start: 06-22-2023 End: 06-22-2023 ambulatory [facility] Work Phone: Start: 06-21-2023 End: 06-21-2023 Patient encounter procedure [facility] Work Phone: Start: 06-21-2023 End: 06-21-2023 ambulatory Roman Faith [facility] Work Phone: Start: 06-20-2023 End: 06-20-2023 Patient encounter procedure [facility] Work Phone: Start: 06-20-2023 End: 06-20-2023 ambulatory [facility] Work Phone: Start: 06-19-2023 End: 06-19-2023 Patient encounter procedure [facility] Work Phone: Start: 06-19-2023 End: 06-19-2023 [facility] Start: 06-18-2023 End: 06-18-2023 Patient encounter procedure [facility] Work Phone: Start: 06-18-2023 End: 06-18-2023 ambulatory Roman Faith Facility:[facility] Start: 06-17-2023 End: 06-17-2023 Patient encounter procedure [facility] Work Phone: Start: 06-17-2023 End: 06-17-2023 ambulatory [facility] Work Phone: Start: 06-16-2023 End: 06-16-2023 Patient encounter procedure [facility] Work Phone: Start: 06-16-2023 End: 06-16-2023 ambulatory [facility] Work Phone: Start: 06-15-2023 End: 06-15-2023 Patient encounter procedure [facility] Work Phone: Start: 06-15-2023 End: 06-15-2023 ambulatory [facility] Work Phone: Start: 06-14-2023 End: 06-14-2023 Patient encounter procedure [facility] Work Phone: Start: 06-14-2023 End: 06-14-2023 ambulatory [facility] Work Phone: Start: 06-13-2023 End: 06-13-2023 Patient encounter procedure [facility] Work Phone: Start: 06-13-2023 End: 06-13-2023 ambulatory [facility] Work Phone: Start: 06-12-2023 End: 06-12-2023 Patient encounter procedure [facility] Work Phone: Start: 06-12-2023 End: 06-12-2023 ambulatory Roman Faith [facility] Work Phone: Start: 06-11-2023 End: 06-11-2023 ambulatory Binta Jose ABERNATHY [facility] Work Phone: Start: 06-11-2023 End: 06-11-2023 Patient encounter procedure [facility] Work Phone: Start: 06-10-2023 End: 06-11-2023 Emergency department patient visit SULMA MALONE Facility:[id number] Start: 06-04-2023 End: 06-04-2023 Evaluation and management of inpatient BUCK AYALA Facility:[id number] Start: 06-02-2023 End: 06-09-2023 Evaluation and management of inpatient TYRONE ANN Facility:[id number] Start: 03-28-2023 ambulatory Mason colin MD Work Phone: [facility] Comment on above: Pleural effusion on right (Primary Dx); Pulmonary nodules/lesions, multiple; Acute septic pulmonary embolism, unspecified whether acute cor pulmonale present (HCC) Start: 03-27-2023 ambulatory Mason colin MD Work Phone: [facility] Comment on above: Pleural effusion on right (Primary Dx); Pulmonary nodules/lesions, multiple; Acute septic pulmonary embolism, unspecified whether acute cor pulmonale present (HCC) Start: 03-26-2023 ambulatory Mason colin MD Work Phone: [facility] Comment on above: Pleural effusion on right (Primary Dx); Pulmonary nodules/lesions, multiple; Acute septic pulmonary embolism, unspecified whether acute cor pulmonale present (HCC) Start: 03-25-2023 ambulatory Mason colin MD Work Phone: [facility] Comment on above: Pleural effusion on right (Primary Dx); Pulmonary nodules/lesions, multiple; Traumatic hemo-pneumothorax, subsequent encounter Start: 03-24-2023 End: 03-24-2023 Subsequent hospital visit by physician Behzad Almaraz MD Work Phone: [facility] Comment on above: Encephalopathy Pleural effusion on right Start: 03-23-2023 ambulatory Katelynn gonzalez PA-C Work Phone: [facility] Comment on above: 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, subsequent encounter (Primary Dx); MRSA bacteremia Acute septic pulmona ry embolism, unspecified whether acute cor pulmonale present (HCC) (Primary Dx); Pleural effusion on right; Pulmonary nodules/lesions, multiple Pleural effusion on right (Primary Dx) Start: 03-22-2023 ambulatory Mason colin MD Work Phone: [facility] Comment on above: Acute septic pulmona ry embolism, unspecified whether acute cor pulmonale present (HCC) (Primary Dx); Pulmonary nodules/lesions, multiple; Traumatic hemo-pneumothorax, subsequent encounter; Pleural effusion on right Start: 03-18-2023 Transcribe Orders Behzad duran MD Work Phone: [facility] Comment on above: Encephalopathy (Prim nahomy Dx) Start: 03-17-2023 ambulatory Myranda Rodriguez PA-C Work Phone: [facility] Comment on above: 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, subsequent encounter (Primary Dx); Acute bacterial endocarditis; long-term (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 antibiotics; Critical polytrauma; MRSA bacteremia Start: 03-16-2023 ambulatory Bran busby MD Work Phone: [facility] Comment on above: Acute septic pulmona ry embolism, unspecified whether acute cor pulmonale present (HCC) (Primary Dx); COVID-19 virus infection; MRSA bacteremia; Pulmonary nodules/lesions, multiple; Traumatic hemo-pneumothorax, subsequent encounter 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, subsequent encounter (Primary Dx); Acute bacterial endocarditis; MRSA bacteremia; 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; Critical polytrauma Start: 03-12-2023 ambulatory Samantha Austin APRN - MUNDO Work Phone: [facility] Comment on above: Acute bacterial endo carditis (Primary Dx); COVID; MRSA bacteremia; long-term (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 antibiotics Start: 03-11-2023 ambulatory Samantha Austin DISPLAY FABRICATION SUPERVISOR - SENIOR INTERNAL AUDITOR Work Phone: [facility] Comment on above: Acute bacterial endo carditis (Primary Dx); COVID; MRSA bacteremia; long-term (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 antibiotics Start: 03-10-2023 ambulatory Samantha Austin DISPLAY FABRICATION SUPERVISOR - SENIOR INTERNAL AUDITOR Work Phone: [facility] Comment on above: MRSA bacteremia (Tonia eze Dx); long-term (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 antibiotics; COVID; Acute bacterial endocarditis Start: 03-10-[address] 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 Start: 03-04-2023 ambulatory Samantha Austin DISPLAY FABRICATION SUPERVISOR - SENIOR INTERNAL AUDITOR Work Phone: [facility] Comment on above: Acute bacterial endo carditis (Primary Dx); MRSA bacteremia; Critical polytrauma; 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 Start: 03-03-2023 ambulatory Samantha Austin DISPLAY FABRICATION SUPERVISOR - SENIOR INTERNAL AUDITOR Work Phone: [facility] Comment on above: Acute bacterial endo carditis (Primary Dx); Pulmonary nodules/lesions, multiple; MRSA bacteremia; long-term (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 antibiotics Start: 03-02-2023 ambulatory Samantha Austin DISPLAY FABRICATION SUPERVISOR - SENIOR INTERNAL AUDITOR Work Phone: [facility] Comment on above: Acute bacterial endo carditis (Primary Dx); MRSA bacteremia; long-term (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 antibiotics; Critical polytrauma; Pulmonary nodules/lesions, multiple; Encephalopathy Start: 03-01-2023 ambulatory Samantha Austin DISPLAY FABRICATION SUPERVISOR - SENIOR INTERNAL AUDITOR Work Phone: [facility] Comment on above: Acute bacterial endo carditis (Primary Dx); MRSA bacteremia; Traumatic brain injury with loss of consciousness, subsequent encounter; Critical polytrauma; long-term (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 antibiotics Start: 02-28-2023 ambulatory Mason colin MD Work Phone: [facility] Comment on above: MRSA bacteremia (Tonia eze Dx); Traumatic hemo-pneumothorax, subsequent encounter; Pulmonary nodules/lesions, multiple Start: 02-27-2023 ambulatory Mason colin MD Work Phone: [facility] Comment on above: MRSA bacteremia (Tonia eze Dx); Traumatic hemo-pneumothorax, subsequent encounter; Pulmonary nodules/lesions, multiple Start: 02-26-2023 ambulatory [employer] Work Phone: [facility] Comment on above: MRSA bacteremia (Tonia eze Dx); Acute bacterial endocarditis Pulmonary nodules/le sions, multiple (Primary Dx); MRSA bacteremia; Traumatic hemo-pneumothorax, subsequent encounter Start: 02-25-2023 ambulatory Mason colin MD Work Phone: [facility] Comment on above: Pulmonary nodules/le sions, multiple (Primary Dx); MRSA bacteremia; Traumatic hemo-pneumothorax, subsequent encounter Start: 02-24-2023 ambulatory Mason colin MD Work Phone: [facility] Comment on above: Pulmonary nodules/le sions, multiple (Primary Dx); MRSA bacteremia; Traumatic hemo-pneumothorax, subsequent encounter Start: 02-23-2023 ambulatory Mason colin MD Work Phone: [facility] Comment on above: Pulmonary nodules/le sions, multiple (Primary Dx); MRSA bacteremia; Traumatic hemo-pneumothorax, subsequent encounter Start: 02-22-2023 ambulatory [employer] Work Phone: [facility] Comment on above: MRSA bacteremia (Tonia loo Dx); Acute bacterial endocarditis Start: 02-19-2023 ambulatory Katelynn gonzalez PA-C Work Phone: [facility] Comment on above: 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, subsequent encounter (Primary Dx); MRSA bacteremia; Encephalopathy MRSA bacteremia (Tonia loo Dx); Pulmonary nodules/lesions, multiple; Traumatic hemo-pneumothorax, subsequent encounter Start: 02-19-2023 Telephone encounter Juve grider MD Work Phone: [facility] Comment on above: Care Coordination Start: 01-25-2023 End: 01-26-2023 ambulatory [facility] Start: 01-24-2023 End: 01-25-2023 ambulatory [facility] Start: 01-23-2023 End: 01-24-2023 ambulatory [facility] Start: 12-21-2022 End: 12-21-2022 Clinical Support Pathology Provider [facility] Start: 12-19-2022 End: 12-19-2022 ambulatory UNKNOWN PROVIDER Facility:[facility] Start: 12-17-2022 End: 12-17-2022 ambulatory UNKNOWN PROVIDER Facility:[facility] Start: 12-17-2022 Evaluation and manag ement of inpatient [facility] Start: 12-08-2022 End: 12-08-2022 Emergency department patient visit FAISAL GARCIA [facility] Start: 11-17-2022 End: 11-19-2022 ambulatory SULMA WOLFE [facility] Procedures Date Procedure Procedure Detail Performing Clinician Start: 03-24-2023 Thoracentesis needle/cath pleura w/imaging Behzad Almaraz MD Work Phone: Start: 01-28-2023 Antibody screen [facility] Comment on above: Performed By: #### [id number] ####Medical Di adria: NED PAK ([id number])[facility] ([facility])[address] [place] [address] Start: 12-19-2022 Cryoprecipitatereducedplasma Provider Unspecified Start: 12-19-2022 PLASMA STATUS Jacob Wiseman DISPLAY FABRICATION SUPERVISOR-SENIOR INTERNAL AUDITOR Work Phone: Start: 12-19-2022 RBC leukocytes reduced Provider Unspecified Start: 12-19-2022 RED BLOOD CELL UNIT STATUS Jacob barton DISPLAY FABRICATION SUPERVISOR-SENIOR INTERNAL AUDITOR Work Phone: Start: 12-19-2022 Blood typing, ABO, Rho(D) and RBC antibody screening Dave Muniz MD Work Phone: Start: 12-17-2022 Antibody screen [facility] Comment on above: Performed By: #### [id number] ####Medical Di adria: NED PAK ([id number])[facility] ([facility])[address] [place] [address] Start: 11-17-2022 Urinalysis SULMA MALONE Comment on above: Result Comment: URINALYSIS Performed By: #### [id number] #### [facility],[address] [place] [address] Plan of Treatment Date Care Activity Detail Author Start: 12-17-2032 DTaP/Tdap/Td Vaccine s (3 - Td or Tdap) DTaP/Tdap/Td Vaccines (3 - Td or Tdap) [facility] Start: 12-17-2032 Urine microalbumin profile DTaP,Tdap,Td Vaccine (3 - Td or Tdap) [facility] Start: 12-08-2032 Tetanus vaccination Tetanus (T d or Tdap) [facility] Start: 01-26-2027 Diabetes Screening Diabetes Screenin g [facility] Start: 06-08-2026 Diabetes Screening Diabetes Screenin g [facility] Start: 03-26-2024 Creatinine measurement Creatinine [facility] Start: 03-26-2024 Potassium measurement Potassium Leve l [facility] Start: 03-25-2024 Creatinine measurement Creatinine [facility] Start: 03-25-2024 Potassium measurement Potassium Leve l [facility] Start: 03-23-2024 Creatinine measurement Creatinine [facility] Start: 03-23-2024 Potassium measurement Potassium Leve l [facility] Start: 03-22-2024 Medicare Advantage A nnual Wellness Visit Medicare Advantage Annual Wellness Visit [facility] Start: 03-19-2024 Creatinine measurement Creatinine [facility] Start: 03-19-2024 Potassium measurement Potassium Leve l [facility] Start: 2024 Creatinine measurement Creatinine [facility] Start: 2024 Potassium measurement Potassium Leve l [facility] Start: 03-12-2024 Creatinine measurement Creatinine [facility] Start: 03-12-2024 Potassium measurement Potassium Leve l [facility] Start: 03-10-2024 Creatinine measurement Creatinine [facility] Start: 03-10-2024 Potassium measurement Potassium Leve l [facility] Start: 03-08-2024 Creatinine measurement Creatinine [facility] Start: 03-08-2024 Potassium measurement Potassium Leve l [facility] Start: 03-02-2024 Creatinine measurement Creatinine [facility] Start: 03-02-2024 Potassium measurement Potassium Leve l [facility] Start: 03-01-2024 Creatinine measurement Creatinine [facility] Start: 03-01-2024 Potassium measurement Potassium Leve l [facility] Start: 02-28-2024 Creatinine measurement Creatinine [facility] Start: 02-28-2024 Potassium measurement Potassium Leve l [facility] Start: 02-27-2024 Creatinine measurement Creatinine [facility] Start: 02-27-2024 Potassium measurement Potassium Leve l [facility] Start: 02-23-2024 Creatinine measurement Creatinine [facility] Start: 02-23-2024 Potassium measurement Potassium Leve l [facility] Start: 02-20-2024 Creatinine measurement Creatinine [facility] Start: 02-20-2024 Potassium measurement Potassium Leve l [facility] Start: 02-03-2024 Echocardiography Echocardiogram [facility] Start: 11-21-2023 Covid-19 Vaccine ( season) Covid-19 Vaccine ( season) [facility] Start: 11-21-2023 Influenza vaccination [facility] Start: 07-21-2023 Iv infusion therapy prophylaxis/dx ea hour THER/PROPH/DIAG IV INF [facility] Start: 07-21-2023 Iv infusion therapy/prophylaxis /dx 1st to 1 hr THER/PROPH/DIAG IV INF [facility] Start: 07-19-2023 Iv infusion therapy prophylaxis/dx ea hour THER/PROPH/DIAG IV INF [facility] Start: 07-19-2023 Iv infusion therapy/prophylaxis /dx 1st to 1 hr THER/PROPH/DIAG IV INF [facility] Start: 07-18-2023 Iv infusion therapy prophylaxis/dx ea hour THER/PROPH/DIAG IV INF [facility] Start: 07-18-2023 Iv infusion therapy/prophylaxis /dx 1st to 1 hr THER/PROPH/DIAG IV INF [facility] Start: 07-18-2023 Following clinical pathway protocol [facility] Start: 07-18-2023 Peripherally inserte d central catheter [facility] Start: 07-17-2023 Following clinical pathway protocol [facility] Start: 07-17-2023 Peripherally inserte d central catheter [facility] Start: 07-14-2023 Iv infusion therapy prophylaxis/dx ea hour THER/PROPH/DIAG IV INF [facility] Start: 07-14-2023 Iv infusion therapy/prophylaxis /dx 1st to 1 hr THER/PROPH/DIAG IV INF [facility] Start: 07-04-2023 Iv infusion therapy prophylaxis/dx ea hour THER/PROPH/DIAG IV INF [facility] Start: 07-04-2023 Iv infusion therapy/prophylaxis /dx 1st to 1 hr THER/PROPH/DIAG IV INF [facility] Start: 07-03-2023 Peripherally inserte d central catheter [facility] Start: 06-30-2023 Iv infusion therapy prophylaxis/dx ea hour THER/PROPH/DIAG IV INF [facility] Start: 06-30-2023 Iv infusion therapy/prophylaxis /dx 1st to 1 hr THER/PROPH/DIAG IV INF [facility] Start: 06-26-2023 Iv infusion therapy prophylaxis/dx ea hour THER/PROPH/DIAG IV INF [facility] Start: 06-26-2023 Iv infusion therapy/prophylaxis /dx 1st to 1 hr THER/PROPH/DIAG IV INF [facility] Start: 06-24-2023 Iv infusion therapy prophylaxis/dx ea hour THER/PROPH/DIAG IV INF [facility] Start: 06-24-2023 Iv infusion therapy/prophylaxis /dx 1st to 1 hr THER/PROPH/DIAG IV INF [facility] Start: 06-22-2023 Iv infusion therapy prophylaxis/dx ea hour THER/PROPH/DIAG IV INF [facility] Start: 06-22-2023 Iv infusion therapy/prophylaxis /dx 1st to 1 hr THER/PROPH/DIAG IV INF [facility] Start: 06-19-2023 Following clinical pathway protocol [facility] Start: 06-19-2023 Peripherally inserte d central catheter care [facility] Start: 06-19-2023 Iv infusion therapy prophylaxis/dx ea hour THER/PROPH/DIAG IV INF [facility] Start: 06-19-2023 Iv infusion therapy/prophylaxis /dx 1st to 1 hr THER/PROPH/DIAG IV INF [facility] Start: 06-18-2023 Iv infusion therapy prophylaxis/dx ea hour THER/PROPH/DIAG IV INF [facility] Start: 06-18-2023 Iv infusion therapy/prophylaxis /dx 1st to 1 hr THER/PROPH/DIAG IV INF [facility] Start: 06-16-2023 Iv infusion therapy prophylaxis/dx ea hour THER/PROPH/DIAG IV INF [facility] Start: 06-16-2023 Iv infusion therapy/prophylaxis /dx 1st to 1 hr THER/PROPH/DIAG IV INF [facility] Start: 06-13-2023 Following clinical pathway protocol [facility] Start: 06-13-2023 Peripherally inserte d central catheter care [facility] Start: 06-12-2023 Peripherally inserte d central catheter care [facility] Start: 06-12-2023 Iv infusion therapy prophylaxis/dx ea hour THER/PROPH/DIAG IV INF [facility] Start: 06-12-2023 Iv infusion therapy/prophylaxis /dx 1st to 1 hr THER/PROPH/DIAG IV INF [facility] Start: 06-11-2023 Following clinical pathway protocol [facility] Start: 06-11-2023 End: 06-11-2023 Peripherally inserted central catheter care [facility] Start: 06-11-2023 Iv infusion therapy prophylaxis/dx ea hour THER/PROPH/DIAG IV INF [facility] Start: 06-11-2023 Iv infusion therapy/prophylaxis /dx 1st to 1 hr THER/PROPH/DIAG IV INF [facility] Start: 03-26-2023 End: 03-26-2023 Patient encounter procedure 03/26/2023 9:00 AM EST Appointment [facility] [address] [place] [id number] Behzad Almaraz MD [address] [place] [address] [facility] Start: 03-24-2023 End: 03-24-2023 Patient encounter procedure [facility] Start: 03-22-2023 Advance Directive Discussion Advance Directive Discussion [facility] Start: 03-22-2023 Behavioral Health Screening Behavioral Health Screening [facility] Start: 03-22-2023 Medicare Advantage A nnual Wellness Visit Medicare Advantage Annual Wellness Visit [facility] Start: 03-18-2023 End: 03-18-2024 MR Brain WO and W contrast IV MR brain w and wo contrast Imaging Routine Encephalopathy Expected: 03/18/2023, Expires: 03/18/2024 [facility] Work Phone: Comment on above: Expected: 03/18/2023 , Expires: 03/18/2024 Start: 11-20-2022 COVID-19 Vaccine ( season) COVID-19 Vaccine ( season) [facility] Start: 11-20-2022 Influenza vaccination Influenza Vacc ine (#1) [facility] Start: 03-22-2022 Welcome to Medicare Visit (G0402) Welcome to Medicare Visit (G0402) [facility] Start: 2019 RSV Immunization for Adults (1 - 1-dose 75+ series) RSV Immunization for Adults (1 - 1-dose 75+ series) [facility] Start: 2019 RSV Vaccine (1 - 1-d ose 75+ series) RSV Vaccine (1 - 1-dose 75+ series) [facility] Start: 2009 Pneumococcal vaccination Pneum ococcal Vaccine(s) (65+ yrs) (1 - PCV) [facility] Start: 2009 Pneumococcal Vaccine : 65+ (1 of 1 - PCV) Pneumococcal Vaccine: 65+ (1 of 1 - PCV) [facility] Start: 2009 Screening for osteoporosis [facility] Start: 2004 RSV Immunization age d 60 or older (1 - 1-dose 60+ series) RSV Immunization aged 60 or older (1 - 1-dose 60+ series) [facility] Start: 2004 RSV Vaccine (1 - 1-d ose 60+ series) RSV Vaccine (1 - 1-dose 60+ series) [facility] Start: 2004 RSV vaccine (optiona l 60+ years) RSV vaccine (optional 60+ years) [facility] Start: 1994 Pneumococcal Vaccine : 50+ (1 of 1 - PCV) Pneumococcal Vaccine: 50+ (1 of 1 - PCV) [facility] Start: 1994 Shingles (RZV) Vacci ne (1 of 2) Shingles (RZV) Vaccine (1 of 2) [facility] Start: 1994 Shingrix Vaccine (1 of 2) Mckinnon grix Vaccine (1 of 2) [facility] Start: 1994 Zoster Vaccines (1 of 2) Zoste r Vaccines (1 of 2) [facility] Start: 1963 Pneumococcal Vaccine : 50+ Years (1 of 2 - PCV) Pneumococcal Vaccine: 50+ Years (1 of 2 - PCV) [facility] Start: 1962 Anxiety Screening Anxiety Screening [facility] Start: 1962 Depression Screening Depression Scre ening [facility] Start: 1962 Hepatitis C screening M [facility] Start: 1956 Depression Screening Depression Scre ening [facility] Start: 1950 Pneumococcal Vaccine : 65+ Years (1 - PCV) Pneumococcal Vaccine: 65+ Years (1 - PCV) [facility] Start: 1950 Pneumococcal Vaccine : 65+ Years (1 of 2 - PCV) Pneumococcal Vaccine: 65+ Years (1 of 2 - PCV) [facility] Start: 1944 COVID-19 Vaccine (#1) COVID-19 Vacci ne (#1) [facility] Start: 1944 COVID-19 Vaccine ( formulation) COVID-19 Vaccine ( formulation) [facility] Start: 1944 Lipid panel Lipid Panel [facility] Start: 1944 Medicare Advantage A nnual Wellness Visit (AWV) Medicare Advantage Annual Wellness Visit (AWV) [facility] Start: 1944 Screening for osteoporosis Bone Density Scan [facility] End: 03-24-2023 MR Brain WO and W contrast IV MR brain w and wo contrast Imaging Routine Encephalopathy Once for 1 Occurrences starting 03/24/2023 until 03/24/2023 [facility] Work Phone: Comment on above: Once for 1 Occurrenc es starting 03/24/2023 until 03/24/2023 Patient referral [facility] Work Phone: Immunizations Immunization Date Immunization Notes Care Provider Lydia [facility] 12-17-2022 tetanus toxoid, redu lisbeth diphtheria toxoid, and acellular pertussis vaccine, adsorbed Katelynn Chiu PA-C Work Phone: [facility] 12-08-2022 tetanus toxoid, redu lisbeth diphtheria toxoid, and acellular pertussis vaccine, adsorbed Pathology Provider [facility] Payers Date Payer Category Payer Self-pay [id number] 2022 Unknown [id number] 2022 Unknown MRA MRA [id number] 2022-Present [address] [facility] [address] [place] [address] Commercial [id number] 2022 Medicare [id number]. [id number] 2022 Medicare [id number] 2022 [place] [id number] .[id number] 1944 Unknown [id number] 2.16.840.1.510611.3.579.2.732 1944 Unknown [id number] 2.16.840.1.583620.3.579.2.732 1944 Unknown [id number] 2.16840.1.891334.3.579.2.651 1944 Unknown [id number] 2.16.840.1.410699.3.579.2.651 Unknown [id number] 2.16840.1.452746.3.579.2.627 Unknown [id number] 2.16840.1.956721.3.579.2.627 Unknown [id number] 2.16.840.1.418313.3.579.2.627 Unknown [id number] 2.16.840.1.498462.3.579.2.462 Unknown [id number] 2.16.840.1.925111.3.579.2.462 Unknown [id number] 2.16.840.1.579833.3.579.2.462 Unknown [id number] 2.16.840.1.156673.3.579.2.462 Unknown [id number] 2.16.840.1.164388.3.579.2.462 Unknown [id number] 2.16.840.1.835272.3.579.2.462 Unknown [id number] 2.16.840.1.538316.3.579.2.462 Unknown [id number] 2.16.840.1.251985.3.579.2.462 Unknown [id number] 2.16.840.1.461613.3.579.2.462 Unknown [id number] 2.16.840.1.363012.3.579.2.462 Unknown [id number] 2.16.840.1.104669.3.579.2.462 Unknown [id number] 2.16.840.1.806018.3.579.2.462 Unknown [id number] 2.840.1.645786.3.579.2.462 Unknown [id number] 2.16840.1.173163.3.579.2.462 Unknown [id number] 2.840.1.162850.3.579.2.462 Unknown [id number] 2.840.1.553475.3.579.2.462 Unknown [id number] 2.840.1.706356.3.579.2.462 Unknown [id number] 2.840.1.016072.3.579.2.462 Unknown [id number] 2.840.1.452052.3.579.2.462 Unknown [id number] 2.840.1.050203.3.579.2.462 Unknown [id number] 2.840.1.399736.3.579.2.462 Unknown [id number] 2.840.1.747334.3.579.2.462 Unknown [id number] 2.16840.1.579222.3.579.2.462 Unknown [id number] 2.16840.1.531314.3.579.2.462 Unknown [id number] 2.16.840.1.890142.3.579.2.462 Unknown [id number] 2.16.840.1.870719.3.579.2.462 Unknown [id number] 2.16.840.1.666028.3.579.2.462 Unknown [id number] 2.16.840.1.310996.3.579.2.462 Unknown [id number] 2.16.840.1.346857.3.579.2.462 Unknown [id number] 2.16840.1.115764.3.579.2.462 Unknown [id number] 2.16840.1.922504.3.579.2.462 Unknown [id number] 2.16840.1.371729.3.579.2.462 Unknown [id number] 2.840.1.433610.3.579.2.462 Unknown [id number] 2.840.1.786445.3.579.2.462 Unknown [id number] 2.840.1.044323.3.579.2.462 Unknown [id number] 2.840.1.434016.3.579.2.462 Unknown [id number] 2.840.1.054861.3.579.2.462 Unknown [id number] 2.840.1.496537.3.579.2.462 Unknown [id number] 2.840.1.579217.3.579.2.462 Unknown [id number] 2.16840.1.220586.3.579.2.462 Unknown [id number] 2.16.840.1.086895.3.579.2.462 Unknown [id number] 2.16.840.1.942580.3.579.2.462 Unknown [id number] 2.16840.1.072531.3.579.2.462 Unknown [id number] 2.840.1.268341.3.579.2.462 Unknown [id number] 2.16.840.1.024895.3.579.2.462 Unknown [id number] 2.16.840.1.166936.3.579.2.462 Unknown [id number] 2.16.840.1.427441.3.579.2.462 Unknown [id number] 2.16.840.1.047559.3.579.2.462 Unknown [id number] 2.16.840.1.472830.3.579.2.462 Unknown [id number] 2.16840.1.098794.3.579.2.462 Unknown [id number] 2.16840.1.633782.3.579.2.462 Unknown [id number] 2.840.1.763059.3.579.2.462 Unknown [id number] 2.840.1.123116.3.579.2.462 Unknown [id number] 2.840.1.670075.3.579.2.462 Unknown [id number] 2.840.1.645457.3.579.2.462 Unknown [id number] 2.840.1.326963.3.579.2.462 Unknown [id number] 2.16840.1.625447.3.579.2.462 Unknown [id number] 2.16.840.1.750957.3.579.2.462 Unknown [id number] 2.840.1.526300.3.579.2.462 Unknown [id number] 2.16.840.1.466159.3.579.2.462 Unknown [id number] 2.16840.1.240721.3.579.2.462 Unknown [id number] 2.16840.1.115552.3.579.2.462 Unknown [id number] 2.16840.1.736723.3.579.2.462 Unknown [id number] 2.16.840.1.776800.3.579.2.462 Unknown [id number] 2.16.840.1.558761.3.579.2.462 Social History Date Type Detail Facility Start: [facility] Start: 1945 [facility] Start: 12-17-2022 End: 06-03-2023 Gender identity Not on file [facility] Start: 12-17-2022 End: 06-03-2023 History of Social function [facility] How often to you hav e a drink containing alcohol? Patient refused [facility] Start: 1945 Sex Assigned At Female [facility] Start: 08-21-2020 End: 06-10-2023 Tobacco smoking status Never smoked tobacco (finding) [facility] Sex Assigned At Sex [facility] Start: 06-10-2023 Tobacco use and exposure Smokeless tobacco non-user [facility] Start: 08-06-2023 End: 03-09-2024 Alcohol intake Ex-drinker (finding) [facility] Has the [employer], or [email or web address] threatened to shut off services in your home in past 12Mo No [facility] (I/We) worried wheth er (my/our) food would run out before (I/we) got money to buy more. Never true [facility] Start: 10-20-2021 Sex Female (finding) [facility] Medical Equipment Procedure Code Equipment Code Equipment Origin al Text Equipment Identifier Dates Graft Infuse 20g a Medium Bovine Collagen Rhbmp-2 2x1in Bone Vial Absorbable - [id number], [id number] FDA Start: 06-04-2023 Graft Bone Cance llo Chips 30cc - [id number] ()[id number] FDA Start: 06-04-2023 Graft Bone Cance llo Chips 15cc - [id number] ()[id number], [id number]_[facility] FDA Start: 06-04-2023 Demineralized Sergio ne Matrix Putty, Allograft [id number] Start: 06-04-2023 Demineralized Sergio ne Matrix Putty, Allograft [id number] Start: 06-04-2023 Deminerized [id number] Start: 06-04-2023 Comment on above: Description: DEMINERALIZED BONE MATRIX P UTTY, ALLOGRAFT 10 CC Fibergraft Bg Ma trix Graft Substitute Synthetic Med 6.25cc [id number] Start: 06-04-2023 Expedium 5.50 Ti X25 Set Screw [id number] Start: 06-04-2023 Screw Depuy Vipe r Bon 6.0x30mm [id number] Start: 06-04-2023 Screw Depuy Vipe r Bon 7.0x40mm [id number] Start: 06-04-2023 Expedium Screw L ag Polyaxial Wide Titanium [id number] Daniel [id number] Start: 06-04-2023 Young Expedium 5.5 mm Titanium 65mm Spinal Prebent Line Nonsterile - [id number] Start: 06-04-2023 Young Expedium 5.5 mm Titanium 75mm Spinal Prebent Line Nonsterile - [id number] Start: 06-04-2023 Screw Expedium 6 mm Titanium 40mm Bone Fix 5.5mm Young Spine Cortical - [id number] Start: 06-04-2023 Mental Status Date Assessment Result Facility 07-29-2023 Cognitive function Awake;Alert;A ppropriate;Follow s Commands [facility] Work Phone: 07-27-2023 Cognitive function Voice/Name [facility] Work Phone: 07-26-2023 Cognitive function Voice/Name [facility] Work Phone: 07-23-2023 Cognitive function Awake;Alert [facility] Work Phone: 07-21-2023 Cognitive function Awake;Follows Commands [facility] Work Phone: 07-19-2023 Cognitive function Awake;Alert;A ppropriate;Follow s Commands [facility] Work Phone: 07-16-2023 Cognitive function Awake;Alert;A ppropriate;Follow s Commands [facility] Work Phone: 07-15-2023 Cognitive function Awake;Alert;A ppropriate;Follow s Commands [facility] Work Phone: 07-14-2023 Cognitive function Voice/Name [facility] Work Phone: 07-13-2023 Cognitive function Voice/Name [facility] Work Phone: 07-12-2023 Cognitive function Awake;Alert;Appropriat e [facility] Work Phone: 07-09-2023 Cognitive function Voice/Name [facility] Work Phone: 07-08-2023 Cognitive function Awake;Alert;A ppropriate;Follow s Commands [facility] Work Phone: 07-07-2023 Cognitive function Awake;Alert;A ppropriate;Follow s Commands [facility] Work Phone: 07-06-2023 Cognitive function Awake;Alert;A ppropriate;Follow s Commands [facility] Work Phone: 07-05-2023 Cognitive function Awake;Alert;A ppropriate;Follow s Commands [facility] Work Phone: 07-02-2023 Cognitive function Awake;Alert;A ppropriate;Follow s Commands [facility] Work Phone: 07-01-2023 Cognitive function Awake;Alert;A ppropriate;Follow s Commands [facility] Work Phone: 06-30-2023 Cognitive function Voice/Name [facility] Work Phone: 06-29-2023 Cognitive function Voice/Name [facility] Work Phone: 06-28-2023 Cognitive function Awake;Alert;A ppropriate;Follow s Commands [facility] Work Phone: 06-25-2023 Cognitive function Level Of Cons ciousness Awake;Alert;Appropriate;Follow s Commands [facility] Work Phone: 06-24-2023 Cognitive function Voice/Name [facility] Work Phone: 06-23-2023 Cognitive function Awake;Alert;A ppropriate;Follow s Commands [facility] Work Phone: 06-21-2023 Cognitive function Voice/Name [facility] Work Phone: 06-18-2023 Cognitive function Voice/Name [facility] Work Phone: 06-17-2023 Cognitive function Voice/Name [facility] Work Phone: 06-16-2023 Cognitive function Voice/Name [facility] Work Phone: 06-15-2023 Cognitive function Voice/Name [facility] Work Phone: 06-14-2023 Cognitive function Awake;Alert;A ppropriate;Follow s Commands [facility] Work Phone: Clinical Notes 11-18-2022 to 12-21-2024 Telephone Encounter - Mirella Knight RN - 04/13/2024 8:50 AM ESTTelephone Encounter - Mirella Knight RN - 04/13/2024 8:50 AM Eun Rowley PA - 03/09/2024 6:37 PM EST Note Date & Type Note Facility 12-21-2024 Note HNO ID: [id number] Author: ESTER GODOY MD Service: ? Author Type: Physician Type: Progress Notes Filed: 12/21/2024 11:03 Note Text: Pelvic ultrasound was performed on [place]. Please see imaging tab for documentation and results. Ester Godoy MD OBGYN Staff Physician SIGNATURE: Ester Godoy MD PATIENT NAME: Zoila Webster DATE: December 21, 2024 TIME: 11:03 AM PAGER/CONTACT #: Pager OBGYN Call Schedule: [facility] 12-14-2024 Note HNO ID: [id number] Author: HARI CASIANO MD Service: ? Author Type: Physician Type: Progress Notes Filed: 12/14/2024 09:28 Note Text: Obstetrics and Gynecology [place] [employer]END[employer] Visit Subjective Recording using Smart Gardener software for draft documentation of the visit was discussed with the patient/authorized merchandising representative; all questions welcomed and answered. Patient/authorized merchandising representative agreed to proceed CHIEF COMPLAINT: The patient is an 79-year-old female presenting for evaluation of an incidental uterine fibroid detected on hip MRI. Accompanied by her daughter, who is supplementing history. HPI: The patient is an 79-year-old female presenting for evaluation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 Diagnosis Encephalopathy- Primary Unspecified encephalopathy documented in this encounter [facility] note* Diagnosis Pleural effusion on right- Primary Unspecified pleural effusion Pleural effusion on right Unspecified pleural effusion documented in this encounter [facility] note* Diagnosis Fungal infection- Primary Other and unspecified mycoses documented in this encounter [facility] note* Diagnosis Intertrigo- Primary Other specified erythematous condition documented in this encounter [facility] course Narrative No data available for this section [facility] Hospital Discharge instructions No data available for this section [facility] Progress note No data available for this section [facility] Summary Purpose Family History No Family History Records FoundNo Family History Records Found No data available for this section No Family History Records Found No data available for this section No Family History Records FoundNo Family History Records FoundNo Family History Records FoundNo Family History Records FoundNo Family History Records FoundNo Family History Records Found Advance Directives No Advanced Directives Records FoundLatest Code Status on File Code Status Date Activated Date Inactivated Comments Full Code 12/17/2022 5:02 PM 02/18/2023 11:28 AM Latest Code Status on File Code Status Date Activated Date Inactivated Comments Full Code 12/17/2022 5:02 PM 02/18/2023 11:28 AM Advance Directive Response Recorded Date/ Time Living Will No March 03 018 10:34am 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 No March 03, 2018 10:34am Date Activated Date Inactivated Comments 06/02/2023 7:34 PM 06/09/2023 7:53 PM Question Answer Comments Full Code Order Discussed With: Patient Date Activated Date Inactivated Comments 01/27/2024 5:06 AM 01/28/2024 7:16 PM Question Answer Comments Full Code Order Discussed With: Surrogate Decisi on Maker Surrogate Decision Maker Relationship: Spouse Date Activated Date Inactivated Comments 06/02/2023 7:34 PM 06/09/2023 7:53 PM Question Answer Comments Full Code Order Discussed With: Patient Date Activated Date Inactivated Comments 12/17/2022 5:02 PM 02/18/2023 11:28 AM Reason for Referral Specialty Diagnoses / Procedures Referred By Contac t Referred To Contact Radiology Diagnoses Encephalopathy Procedures MR brain w and wo contrast Behzad Almaraz MD [address] [place] [address] Referral ID Status Reason Start Date Expiration Date V isits Requested Visits Authorized [id number] Authorized 03/18/2023 03/17/2024 1 1 Chief Complaint and Reason for Visit Chief Complaint IV antibiotics Chief Complaint IV antibiotics IV antibiotics/ INFUSION Chief Complaint IV antibiotics IV antibiotics/ INFUSION IV antibiotics Chief Complaint IV antibiotics IV antibiotics/ INFUSION IV antibiotics PICC DRAW/ INFUSION Chief Complaint IV antibiotics IV antibiotics/ INFUSION IV antibiotics PICC DRAW/ INFUSION PICC DRAW/ INFUSION Chief Complaint IV antibiotics IV antibiotics/ INFUSION IV antibiotics PICC DRAW/ INFUSION PICC DRAW/ INFUSION PICC DRAW/ INFUSION Chief Complaint IV antibiotics IV antibiotics/ INFUSION IV antibiotics PICC DRAW/ INFUSION PICC DRAW/ INFUSION PICC DRAW/ INFUSION PICC DRAW/ INFUSION Chief Complaint IV antibiotics IV antibiotics/ INFUSION IV antibiotics PICC DRAW/ INFUSION PICC DRAW/ INFUSION PICC DRAW/ INFUSION PICC DRAW/ INFUSION PICC DRAW/ INFUSION PICC DRAW/ INFUSION Chief Complaint IV antibiotics IV antibiotics/ INFUSION IV antibiotics PICC DRAW/ INFUSION PICC DRAW/ INFUSION PICC DRAW/ INFUSION PICC DRAW/ INFUSION PICC DRAW/ INFUSION PICC DRAW/ INFUSION PICC DRAW/ INFUSION Chief Complaint IV antibiotics IV antibiotics/ INFUSION IV antibiotics PICC DRAW/ INFUSION PICC DRAW/ INFUSION PICC DRAW/ INFUSION PICC DRAW/ INFUSION PICC DRAW/ INFUSION PICC DRAW/ INFUSION PICC DRAW/ INFUSION PICC DRAW/ INFUSION Chief Complaint IV antibiotics IV antibiotics/ INFUSION IV antibiotics PICC DRAW/ INFUSION PICC DRAW/ INFUSION PICC DRAW/ INFUSION PICC DRAW/ INFUSION PICC DRAW/ INFUSION PICC DRAW/ INFUSION PICC DRAW/ INFUSION PICC DRAW/ INFUSION PICC DRAW Chief Complaint IV antibiotics IV antibiotics/ INFUSION IV antibiotics PICC DRAW/ INFUSION PICC DRAW/ INFUSION PICC DRAW/ INFUSION PICC DRAW/ INFUSION PICC DRAW/ INFUSION PICC DRAW/ INFUSION PICC DRAW/ INFUSION PICC DRAW/ INFUSION PICC DRAW PICC DRAW/ INFUSION Chief Complaint IV antibiotics IV antibiotics/ INFUSION IV antibiotics PICC DRAW/ INFUSION PICC DRAW/ INFUSION PICC DRAW/ INFUSION PICC DRAW/ INFUSION PICC DRAW/ INFUSION PICC DRAW/ INFUSION PICC DRAW/ INFUSION PICC DRAW/ INFUSION PICC DRAW PICC DRAW/ INFUSION PICC DRAW/ INFUSION Chief Complaint IV antibiotics IV antibiotics/ INFUSION IV antibiotics PICC DRAW/ INFUSION PICC DRAW/ INFUSION PICC DRAW/ INFUSION PICC DRAW/ INFUSION PICC DRAW/ INFUSION PICC DRAW/ INFUSION PICC DRAW/ INFUSION PICC DRAW/ INFUSION PICC DRAW PICC DRAW/ INFUSION PICC DRAW/ INFUSION PICC DRAW/ INFUSION Chief Complaint IV antibiotics IV antibiotics/ INFUSION IV antibiotics PICC DRAW/ INFUSION PICC DRAW/ INFUSION PICC DRAW/ INFUSION PICC DRAW/ INFUSION PICC DRAW/ INFUSION PICC DRAW/ INFUSION PICC DRAW/ INFUSION PICC DRAW/ INFUSION PICC DRAW PICC DRAW/ INFUSION PICC DRAW/ INFUSION PICC DRAW/ INFUSION PICC DRAW/ INFUSION Chief Complaint IV antibiotics IV antibiotics/ INFUSION IV antibiotics PICC DRAW/ INFUSION PICC DRAW/ INFUSION PICC DRAW/ INFUSION PICC DRAW/ INFUSION PICC DRAW/ INFUSION PICC DRAW/ INFUSION PICC DRAW/ INFUSION PICC DRAW/ INFUSION PICC DRAW PICC DRAW/ INFUSION PICC DRAW/ INFUSION PICC DRAW/ INFUSION PICC DRAW/ INFUSION PICC DRAW/ INFUSION Chief Complaint IV antibiotics IV antibiotics/ INFUSION IV antibiotics PICC DRAW/ INFUSION PICC DRAW/ INFUSION PICC DRAW/ INFUSION PICC DRAW/ INFUSION PICC DRAW/ INFUSION PICC DRAW/ INFUSION PICC DRAW/ INFUSION PICC DRAW/ INFUSION PICC DRAW PICC DRAW/ INFUSION PICC DRAW/ INFUSION PICC DRAW/ INFUSION PICC DRAW/ INFUSION PICC DRAW/ INFUSION PICC DRAW/ INFUSION Chief Complaint IV antibiotics IV antibiotics/ INFUSION IV antibiotics PICC DRAW/ INFUSION PICC DRAW/ INFUSION PICC DRAW/ INFUSION PICC DRAW/ INFUSION PICC DRAW/ INFUSION PICC DRAW/ INFUSION PICC DRAW/ INFUSION PICC DRAW/ INFUSION PICC DRAW PICC DRAW/ INFUSION PICC DRAW/ INFUSION PICC DRAW/ INFUSION PICC DRAW/ INFUSION PICC DRAW/ INFUSION PICC DRAW/ INFUSION PICC DRAW Chief Complaint IV antibiotics IV antibiotics/ INFUSION IV antibiotics PICC DRAW/ INFUSION PICC DRAW/ INFUSION PICC DRAW/ INFUSION PICC DRAW/ INFUSION PICC DRAW/ INFUSION PICC DRAW/ INFUSION PICC DRAW/ INFUSION PICC DRAW/ INFUSION PICC DRAW PICC DRAW/ INFUSION PICC DRAW/ INFUSION PICC DRAW/ INFUSION PICC DRAW/ INFUSION PICC DRAW/ INFUSION PICC DRAW/ INFUSION PICC DRAW PICC DRAW/ INFUSION Chief Complaint IV antibiotics IV antibiotics/ INFUSION IV antibiotics PICC DRAW/ INFUSION PICC DRAW/ INFUSION PICC DRAW/ INFUSION PICC DRAW/ INFUSION PICC DRAW/ INFUSION PICC DRAW/ INFUSION PICC DRAW/ INFUSION PICC DRAW/ INFUSION PICC DRAW PICC DRAW/ INFUSION PICC DRAW/ INFUSION PICC DRAW/ INFUSION PICC DRAW/ INFUSION PICC DRAW/ INFUSION PICC DRAW/ INFUSION PICC DRAW PICC DRAW/ INFUSION PICC DRAW/ INFUSION Chief Complaint IV antibiotics IV antibiotics/ INFUSION IV antibiotics PICC DRAW/ INFUSION PICC DRAW/ INFUSION PICC DRAW/ INFUSION PICC DRAW/ INFUSION PICC DRAW/ INFUSION PICC DRAW/ INFUSION PICC DRAW/ INFUSION PICC DRAW/ INFUSION PICC DRAW PICC DRAW/ INFUSION PICC DRAW/ INFUSION PICC DRAW/ INFUSION PICC DRAW/ INFUSION PICC DRAW/ INFUSION PICC DRAW/ INFUSION PICC DRAW PICC DRAW/ INFUSION PICC DRAW/ INFUSION PICC DRAW/ INFUSION Chief Complaint IV antibiotics IV antibiotics/ INFUSION IV antibiotics PICC DRAW/ INFUSION PICC DRAW/ INFUSION PICC DRAW/ INFUSION PICC DRAW/ INFUSION PICC DRAW/ INFUSION PICC DRAW/ INFUSION PICC DRAW/ INFUSION PICC DRAW/ INFUSION PICC DRAW PICC DRAW/ INFUSION PICC DRAW/ INFUSION PICC DRAW/ INFUSION PICC DRAW/ INFUSION PICC DRAW/ INFUSION PICC DRAW/ INFUSION PICC DRAW PICC DRAW/ INFUSION PICC DRAW/ INFUSION PICC DRAW/ INFUSION PICC DRAW/ INFUSION Chief Complaint IV antibiotics IV antibiotics/ INFUSION IV antibiotics PICC DRAW/ INFUSION PICC DRAW/ INFUSION PICC DRAW/ INFUSION PICC DRAW/ INFUSION PICC DRAW/ INFUSION PICC DRAW/ INFUSION PICC DRAW/ INFUSION PICC DRAW/ INFUSION PICC DRAW PICC DRAW/ INFUSION PICC DRAW/ INFUSION PICC DRAW/ INFUSION PICC DRAW/ INFUSION PICC DRAW/ INFUSION PICC DRAW/ INFUSION PICC DRAW PICC DRAW/ INFUSION PICC DRAW/ INFUSION PICC DRAW/ INFUSION PICC DRAW/ INFUSION PICC DRAW/ INFUSION Chief Complaint IV antibiotics IV antibiotics/ INFUSION IV antibiotics PICC DRAW/ INFUSION PICC DRAW/ INFUSION PICC DRAW/ INFUSION PICC DRAW/ INFUSION PICC DRAW/ INFUSION PICC DRAW/ INFUSION PICC DRAW/ INFUSION PICC DRAW/ INFUSION PICC DRAW PICC DRAW/ INFUSION PICC DRAW/ INFUSION PICC DRAW/ INFUSION PICC DRAW/ INFUSION PICC DRAW/ INFUSION PICC DRAW/ INFUSION PICC DRAW PICC DRAW/ INFUSION PICC DRAW/ INFUSION PICC DRAW/ INFUSION PICC DRAW/ INFUSION PICC DRAW/ INFUSION PICC DRAW/ INFUSION Chief Complaint IV antibiotics IV antibiotics/ INFUSION IV antibiotics PICC DRAW/ INFUSION PICC DRAW/ INFUSION PICC DRAW/ INFUSION PICC DRAW/ INFUSION PICC DRAW/ INFUSION PICC DRAW/ INFUSION PICC DRAW/ INFUSION PICC DRAW/ INFUSION PICC DRAW PICC DRAW/ INFUSION PICC DRAW/ INFUSION PICC DRAW/ INFUSION PICC DRAW/ INFUSION PICC DRAW/ INFUSION PICC DRAW/ INFUSION PICC DRAW PICC DRAW/ INFUSION PICC DRAW/ INFUSION PICC DRAW/ INFUSION PICC DRAW/ INFUSION PICC DRAW/ INFUSION PICC DRAW/ INFUSION PICC DRAW & DRSG CHANGE Chief Complaint IV antibiotics IV antibiotics/ INFUSION IV antibiotics PICC DRAW/ INFUSION PICC DRAW/ INFUSION PICC DRAW/ INFUSION PICC DRAW/ INFUSION PICC DRAW/ INFUSION PICC DRAW/ INFUSION PICC DRAW/ INFUSION PICC DRAW/ INFUSION PICC DRAW PICC DRAW/ INFUSION PICC DRAW/ INFUSION PICC DRAW/ INFUSION PICC DRAW/ INFUSION PICC DRAW/ INFUSION PICC DRAW/ INFUSION PICC DRAW PICC DRAW/ INFUSION PICC DRAW/ INFUSION PICC DRAW/ INFUSION PICC DRAW/ INFUSION PICC DRAW/ INFUSION PICC DRAW/ INFUSION PICC DRAW & DRSG CHANGE PICC DRAW/ INFUSION Chief Complaint IV antibiotics IV antibiotics/ INFUSION IV antibiotics PICC DRAW/ INFUSION PICC DRAW/ INFUSION PICC DRAW/ INFUSION PICC DRAW/ INFUSION PICC DRAW/ INFUSION PICC DRAW/ INFUSION PICC DRAW/ INFUSION PICC DRAW/ INFUSION PICC DRAW PICC DRAW/ INFUSION PICC DRAW/ INFUSION PICC DRAW/ INFUSION PICC DRAW/ INFUSION PICC DRAW/ INFUSION PICC DRAW/ INFUSION PICC DRAW PICC DRAW/ INFUSION PICC DRAW/ INFUSION PICC DRAW/ INFUSION PICC DRAW/ INFUSION PICC DRAW/ INFUSION PICC DRAW/ INFUSION PICC DRAW & DRSG CHANGE PICC DRAW/ INFUSION PICC DRAW/ INFUSION Chief Complaint IV antibiotics IV antibiotics/ INFUSION IV antibiotics PICC DRAW/ INFUSION PICC DRAW/ INFUSION PICC DRAW/ INFUSION PICC DRAW/ INFUSION PICC DRAW/ INFUSION PICC DRAW/ INFUSION PICC DRAW/ INFUSION PICC DRAW/ INFUSION PICC DRAW PICC DRAW/ INFUSION PICC DRAW/ INFUSION PICC DRAW/ INFUSION PICC DRAW/ INFUSION PICC DRAW/ INFUSION PICC DRAW/ INFUSION PICC DRAW PICC DRAW/ INFUSION PICC DRAW/ INFUSION PICC DRAW/ INFUSION PICC DRAW/ INFUSION PICC DRAW/ INFUSION PICC DRAW/ INFUSION PICC DRAW & DRSG CHANGE PICC DRAW/ INFUSION PICC DRAW/ INFUSION PICC DRAW/ INFUSION Chief Complaint IV antibiotics IV antibiotics/ INFUSION IV antibiotics PICC DRAW/ INFUSION PICC DRAW/ INFUSION PICC DRAW/ INFUSION PICC DRAW/ INFUSION PICC DRAW/ INFUSION PICC DRAW/ INFUSION PICC DRAW/ INFUSION PICC DRAW/ INFUSION PICC DRAW PICC DRAW/ INFUSION PICC DRAW/ INFUSION PICC DRAW/ INFUSION PICC DRAW/ INFUSION PICC DRAW/ INFUSION PICC DRAW/ INFUSION PICC DRAW PICC DRAW/ INFUSION PICC DRAW/ INFUSION PICC DRAW/ INFUSION PICC DRAW/ INFUSION PICC DRAW/ INFUSION PICC DRAW/ INFUSION PICC DRAW & DRSG CHANGE PICC DRAW/ INFUSION PICC DRAW/ INFUSION PICC DRAW/ INFUSION PICC DRAW/ INFUSION Chief Complaint IV antibiotics IV antibiotics/ INFUSION IV antibiotics PICC DRAW/ INFUSION PICC DRAW/ INFUSION PICC DRAW/ INFUSION PICC DRAW/ INFUSION PICC DRAW/ INFUSION PICC DRAW/ INFUSION PICC DRAW/ INFUSION PICC DRAW/ INFUSION PICC DRAW PICC DRAW/ INFUSION PICC DRAW/ INFUSION PICC DRAW/ INFUSION PICC DRAW/ INFUSION PICC DRAW/ INFUSION PICC DRAW/ INFUSION PICC DRAW PICC DRAW/ INFUSION PICC DRAW/ INFUSION PICC DRAW/ INFUSION PICC DRAW/ INFUSION PICC DRAW/ INFUSION PICC DRAW/ INFUSION PICC DRAW & DRSG CHANGE PICC DRAW/ INFUSION PICC DRAW/ INFUSION PICC DRAW/ INFUSION PICC DRAW/ INFUSION PICC DRAW/ INFUSION Chief Complaint IV antibiotics IV antibiotics/ INFUSION IV antibiotics PICC DRAW/ INFUSION PICC DRAW/ INFUSION PICC DRAW/ INFUSION PICC DRAW/ INFUSION PICC DRAW/ INFUSION PICC DRAW/ INFUSION PICC DRAW/ INFUSION PICC DRAW/ INFUSION PICC DRAW PICC DRAW/ INFUSION PICC DRAW/ INFUSION PICC DRAW/ INFUSION PICC DRAW/ INFUSION PICC DRAW/ INFUSION PICC DRAW/ INFUSION PICC DRAW PICC DRAW/ INFUSION PICC DRAW/ INFUSION PICC DRAW/ INFUSION PICC DRAW/ INFUSION PICC DRAW/ INFUSION PICC DRAW/ INFUSION PICC DRAW & DRSG CHANGE PICC DRAW/ INFUSION PICC DRAW/ INFUSION PICC DRAW/ INFUSION PICC DRAW/ INFUSION PICC DRAW/ INFUSION PICC DRAW/ INFUSION Chief Complaint IV antibiotics IV antibiotics/ INFUSION IV antibiotics PICC DRAW/ INFUSION PICC DRAW/ INFUSION PICC DRAW/ INFUSION PICC DRAW/ INFUSION PICC DRAW/ INFUSION PICC DRAW/ INFUSION PICC DRAW/ INFUSION PICC DRAW/ INFUSION PICC DRAW PICC DRAW/ INFUSION PICC DRAW/ INFUSION PICC DRAW/ INFUSION PICC DRAW/ INFUSION PICC DRAW/ INFUSION PICC DRAW/ INFUSION PICC DRAW PICC DRAW/ INFUSION PICC DRAW/ INFUSION PICC DRAW/ INFUSION PICC DRAW/ INFUSION PICC DRAW/ INFUSION PICC DRAW/ INFUSION PICC DRAW & DRSG CHANGE PICC DRAW/ INFUSION PICC DRAW/ INFUSION PICC DRAW/ INFUSION PICC DRAW/ INFUSION PICC DRAW/ INFUSION PICC DRAW/ INFUSION PICC DRAW & DRSG CHANGE Chief Complaint IV antibiotics IV antibiotics/ INFUSION IV antibiotics PICC DRAW/ INFUSION PICC DRAW/ INFUSION PICC DRAW/ INFUSION PICC DRAW/ INFUSION PICC DRAW/ INFUSION PICC DRAW/ INFUSION PICC DRAW/ INFUSION PICC DRAW/ INFUSION PICC DRAW PICC DRAW/ INFUSION PICC DRAW/ INFUSION PICC DRAW/ INFUSION PICC DRAW/ INFUSION PICC DRAW/ INFUSION PICC DRAW/ INFUSION PICC DRAW PICC DRAW/ INFUSION PICC DRAW/ INFUSION PICC DRAW/ INFUSION PICC DRAW/ INFUSION PICC DRAW/ INFUSION PICC DRAW/ INFUSION PICC DRAW & DRSG CHANGE PICC DRAW/ INFUSION PICC DRAW/ INFUSION PICC DRAW/ INFUSION PICC DRAW/ INFUSION PICC DRAW/ INFUSION PICC DRAW/ INFUSION PICC DRAW & DRSG CHANGE PICC DRAW/ INFUSION Chief Complaint IV antibiotics IV antibiotics/ INFUSION IV antibiotics PICC DRAW/ INFUSION PICC DRAW/ INFUSION PICC DRAW/ INFUSION PICC DRAW/ INFUSION PICC DRAW/ INFUSION PICC DRAW/ INFUSION PICC DRAW/ INFUSION PICC DRAW/ INFUSION PICC DRAW PICC DRAW/ INFUSION PICC DRAW/ INFUSION PICC DRAW/ INFUSION PICC DRAW/ INFUSION PICC DRAW/ INFUSION PICC DRAW/ INFUSION PICC DRAW PICC DRAW/ INFUSION PICC DRAW/ INFUSION PICC DRAW/ INFUSION PICC DRAW/ INFUSION PICC DRAW/ INFUSION PICC DRAW/ INFUSION PICC DRAW & DRSG CHANGE PICC DRAW/ INFUSION PICC DRAW/ INFUSION PICC DRAW/ INFUSION PICC DRAW/ INFUSION PICC DRAW/ INFUSION PICC DRAW/ INFUSION PICC DRAW & DRSG CHANGE PICC DRAW/ INFUSION PICC DRAW/ INFUSION Chief Complaint IV antibiotics IV antibiotics/ INFUSION IV antibiotics PICC DRAW/ INFUSION PICC DRAW/ INFUSION PICC DRAW/ INFUSION PICC DRAW/ INFUSION PICC DRAW/ INFUSION PICC DRAW/ INFUSION PICC DRAW/ INFUSION PICC DRAW/ INFUSION PICC DRAW PICC DRAW/ INFUSION PICC DRAW/ INFUSION PICC DRAW/ INFUSION PICC DRAW/ INFUSION PICC DRAW/ INFUSION PICC DRAW/ INFUSION PICC DRAW PICC DRAW/ INFUSION PICC DRAW/ INFUSION PICC DRAW/ INFUSION PICC DRAW/ INFUSION PICC DRAW/ INFUSION PICC DRAW/ INFUSION PICC DRAW & DRSG CHANGE PICC DRAW/ INFUSION PICC DRAW/ INFUSION PICC DRAW/ INFUSION PICC DRAW/ INFUSION PICC DRAW/ INFUSION PICC DRAW/ INFUSION PICC DRAW & DRSG CHANGE PICC DRAW/ INFUSION PICC DRAW/ INFUSION PICC DRAW/ INFUSION Chief Complaint IV antibiotics IV antibiotics/ INFUSION IV antibiotics PICC DRAW/ INFUSION PICC DRAW/ INFUSION PICC DRAW/ INFUSION PICC DRAW/ INFUSION PICC DRAW/ INFUSION PICC DRAW/ INFUSION PICC DRAW/ INFUSION PICC DRAW/ INFUSION PICC DRAW PICC DRAW/ INFUSION PICC DRAW/ INFUSION PICC DRAW/ INFUSION PICC DRAW/ INFUSION PICC DRAW/ INFUSION PICC DRAW/ INFUSION PICC DRAW PICC DRAW/ INFUSION PICC DRAW/ INFUSION PICC DRAW/ INFUSION PICC DRAW/ INFUSION PICC DRAW/ INFUSION PICC DRAW/ INFUSION PICC DRAW & DRSG CHANGE PICC DRAW/ INFUSION PICC DRAW/ INFUSION PICC DRAW/ INFUSION PICC DRAW/ INFUSION PICC DRAW/ INFUSION PICC DRAW/ INFUSION PICC DRAW & DRSG CHANGE PICC DRAW/ INFUSION PICC DRAW/ INFUSION PICC DRAW/ INFUSION PICC DRAW/ INFUSION Chief Complaint IV antibiotics IV antibiotics/ INFUSION IV antibiotics PICC DRAW/ INFUSION PICC DRAW/ INFUSION PICC DRAW/ INFUSION PICC DRAW/ INFUSION PICC DRAW/ INFUSION PICC DRAW/ INFUSION PICC DRAW/ INFUSION PICC DRAW/ INFUSION PICC DRAW PICC DRAW/ INFUSION PICC DRAW/ INFUSION PICC DRAW/ INFUSION PICC DRAW/ INFUSION PICC DRAW/ INFUSION PICC DRAW/ INFUSION PICC DRAW PICC DRAW/ INFUSION PICC DRAW/ INFUSION PICC DRAW/ INFUSION PICC DRAW/ INFUSION PICC DRAW/ INFUSION PICC DRAW/ INFUSION PICC DRAW & DRSG CHANGE PICC DRAW/ INFUSION PICC DRAW/ INFUSION PICC DRAW/ INFUSION PICC DRAW/ INFUSION PICC DRAW/ INFUSION PICC DRAW/ INFUSION PICC DRAW & DRSG CHANGE PICC DRAW/ INFUSION PICC DRAW/ INFUSION PICC DRAW/ INFUSION PICC DRAW/ INFUSION PICC DRAW/ INFUSION Chief Complaint IV antibiotics IV antibiotics/ INFUSION IV antibiotics PICC DRAW/ INFUSION PICC DRAW/ INFUSION PICC DRAW/ INFUSION PICC DRAW/ INFUSION PICC DRAW/ INFUSION PICC DRAW/ INFUSION PICC DRAW/ INFUSION PICC DRAW/ INFUSION PICC DRAW PICC DRAW/ INFUSION PICC DRAW/ INFUSION PICC DRAW/ INFUSION PICC DRAW/ INFUSION PICC DRAW/ INFUSION PICC DRAW/ INFUSION PICC DRAW PICC DRAW/ INFUSION PICC DRAW/ INFUSION PICC DRAW/ INFUSION PICC DRAW/ INFUSION PICC DRAW/ INFUSION PICC DRAW/ INFUSION PICC DRAW & DRSG CHANGE PICC DRAW/ INFUSION PICC DRAW/ INFUSION PICC DRAW/ INFUSION PICC DRAW/ INFUSION PICC DRAW/ INFUSION PICC DRAW/ INFUSION PICC DRAW & DRSG CHANGE PICC DRAW/ INFUSION PICC DRAW/ INFUSION PICC DRAW/ INFUSION PICC DRAW/ INFUSION PICC DRAW/ INFUSION PICC DRAW/ INFUSION Chief Complaint IV antibiotics IV antibiotics/ INFUSION IV antibiotics PICC DRAW/ INFUSION PICC DRAW/ INFUSION PICC DRAW/ INFUSION PICC DRAW/ INFUSION PICC DRAW/ INFUSION PICC DRAW/ INFUSION PICC DRAW/ INFUSION PICC DRAW/ INFUSION PICC DRAW PICC DRAW/ INFUSION PICC DRAW/ INFUSION PICC DRAW/ INFUSION PICC DRAW/ INFUSION PICC DRAW/ INFUSION PICC DRAW/ INFUSION PICC DRAW PICC DRAW/ INFUSION PICC DRAW/ INFUSION PICC DRAW/ INFUSION PICC DRAW/ INFUSION PICC DRAW/ INFUSION PICC DRAW/ INFUSION PICC DRAW & DRSG CHANGE PICC DRAW/ INFUSION PICC DRAW/ INFUSION PICC DRAW/ INFUSION PICC DRAW/ INFUSION PICC DRAW/ INFUSION PICC DRAW/ INFUSION PICC DRAW & DRSG CHANGE PICC DRAW/ INFUSION PICC DRAW/ INFUSION PICC DRAW/ INFUSION PICC DRAW/ INFUSION PICC DRAW/ INFUSION PICC DRAW/ INFUSION PICC DRAW & DRSG CHANGE Chief Complaint IV antibiotics IV antibiotics/ INFUSION IV antibiotics PICC DRAW/ INFUSION PICC DRAW/ INFUSION PICC DRAW/ INFUSION PICC DRAW/ INFUSION PICC DRAW/ INFUSION PICC DRAW/ INFUSION PICC DRAW/ INFUSION PICC DRAW/ INFUSION PICC DRAW PICC DRAW/ INFUSION PICC DRAW/ INFUSION PICC DRAW/ INFUSION PICC DRAW/ INFUSION PICC DRAW/ INFUSION PICC DRAW/ INFUSION PICC DRAW PICC DRAW/ INFUSION PICC DRAW/ INFUSION PICC DRAW/ INFUSION PICC DRAW/ INFUSION PICC DRAW/ INFUSION PICC DRAW/ INFUSION PICC DRAW & DRSG CHANGE PICC DRAW/ INFUSION PICC DRAW/ INFUSION PICC DRAW/ INFUSION PICC DRAW/ INFUSION PICC DRAW/ INFUSION PICC DRAW/ INFUSION PICC DRAW & DRSG CHANGE PICC DRAW/ INFUSION PICC DRAW/ INFUSION PICC DRAW/ INFUSION PICC DRAW/ INFUSION PICC DRAW/ INFUSION PICC DRAW/ INFUSION PICC DRAW & DRSG CHANGE PICC DRAW/ INFUSION Chief Complaint IV antibiotics IV antibiotics/ INFUSION IV antibiotics PICC DRAW/ INFUSION PICC DRAW/ INFUSION PICC DRAW/ INFUSION PICC DRAW/ INFUSION PICC DRAW/ INFUSION PICC DRAW/ INFUSION PICC DRAW/ INFUSION PICC DRAW/ INFUSION PICC DRAW PICC DRAW/ INFUSION PICC DRAW/ INFUSION PICC DRAW/ INFUSION PICC DRAW/ INFUSION PICC DRAW/ INFUSION PICC DRAW/ INFUSION PICC DRAW PICC DRAW/ INFUSION PICC DRAW/ INFUSION PICC DRAW/ INFUSION PICC DRAW/ INFUSION PICC DRAW/ INFUSION PICC DRAW/ INFUSION PICC DRAW & DRSG CHANGE PICC DRAW/ INFUSION PICC DRAW/ INFUSION PICC DRAW/ INFUSION PICC DRAW/ INFUSION PICC DRAW/ INFUSION PICC DRAW/ INFUSION PICC DRAW & DRSG CHANGE PICC DRAW/ INFUSION PICC DRAW/ INFUSION PICC DRAW/ INFUSION PICC DRAW/ INFUSION PICC DRAW/ INFUSION PICC DRAW/ INFUSION PICC DRAW & DRSG CHANGE PICC DRAW/ INFUSION PICC DRAW/ INFUSION Chief Complaint IV antibiotics IV antibiotics/ INFUSION IV antibiotics PICC DRAW/ INFUSION PICC DRAW/ INFUSION PICC DRAW/ INFUSION PICC DRAW/ INFUSION PICC DRAW/ INFUSION PICC DRAW/ INFUSION PICC DRAW/ INFUSION PICC DRAW/ INFUSION PICC DRAW PICC DRAW/ INFUSION PICC DRAW/ INFUSION PICC DRAW/ INFUSION PICC DRAW/ INFUSION PICC DRAW/ INFUSION PICC DRAW/ INFUSION PICC DRAW PICC DRAW/ INFUSION PICC DRAW/ INFUSION PICC DRAW/ INFUSION PICC DRAW/ INFUSION PICC DRAW/ INFUSION PICC DRAW/ INFUSION PICC DRAW & DRSG CHANGE PICC DRAW/ INFUSION PICC DRAW/ INFUSION PICC DRAW/ INFUSION PICC DRAW/ INFUSION PICC DRAW/ INFUSION PICC DRAW/ INFUSION PICC DRAW & DRSG CHANGE PICC DRAW/ INFUSION PICC DRAW/ INFUSION PICC DRAW/ INFUSION PICC DRAW/ INFUSION PICC DRAW/ INFUSION PICC DRAW/ INFUSION PICC DRAW & DRSG CHANGE PICC DRAW/ INFUSION PICC DRAW/ INFUSION PICC DRAW/ INFUSION Chief Complaint IV antibiotics IV antibiotics/ INFUSION IV antibiotics PICC DRAW/ INFUSION PICC DRAW/ INFUSION PICC DRAW/ INFUSION PICC DRAW/ INFUSION PICC DRAW/ INFUSION PICC DRAW/ INFUSION PICC DRAW/ INFUSION PICC DRAW/ INFUSION PICC DRAW PICC DRAW/ INFUSION PICC DRAW/ INFUSION PICC DRAW/ INFUSION PICC DRAW/ INFUSION PICC DRAW/ INFUSION PICC DRAW/ INFUSION PICC DRAW PICC DRAW/ INFUSION PICC DRAW/ INFUSION PICC DRAW/ INFUSION PICC DRAW/ INFUSION PICC DRAW/ INFUSION PICC DRAW/ INFUSION PICC DRAW & DRSG CHANGE PICC DRAW/ INFUSION PICC DRAW/ INFUSION PICC DRAW/ INFUSION PICC DRAW/ INFUSION PICC DRAW/ INFUSION PICC DRAW/ INFUSION PICC DRAW & DRSG CHANGE PICC DRAW/ INFUSION PICC DRAW/ INFUSION PICC DRAW/ INFUSION PICC DRAW/ INFUSION PICC DRAW/ INFUSION PICC DRAW/ INFUSION PICC DRAW & DRSG CHANGE PICC DRAW/ INFUSION PICC DRAW/ INFUSION PICC DRAW/ INFUSION PICC DRAW/ INFUSION Chief Complaint IV antibiotics IV antibiotics/ INFUSION IV antibiotics PICC DRAW/ INFUSION PICC DRAW/ INFUSION PICC DRAW/ INFUSION PICC DRAW/ INFUSION PICC DRAW/ INFUSION PICC DRAW/ INFUSION PICC DRAW/ INFUSION PICC DRAW/ INFUSION PICC DRAW PICC DRAW/ INFUSION PICC DRAW/ INFUSION PICC DRAW/ INFUSION PICC DRAW/ INFUSION PICC DRAW/ INFUSION PICC DRAW/ INFUSION PICC DRAW PICC DRAW/ INFUSION PICC DRAW/ INFUSION PICC DRAW/ INFUSION PICC DRAW/ INFUSION PICC DRAW/ INFUSION PICC DRAW/ INFUSION PICC DRAW & DRSG CHANGE PICC DRAW/ INFUSION PICC DRAW/ INFUSION PICC DRAW/ INFUSION PICC DRAW/ INFUSION PICC DRAW/ INFUSION PICC DRAW/ INFUSION PICC DRAW & DRSG CHANGE PICC DRAW/ INFUSION PICC DRAW/ INFUSION PICC DRAW/ INFUSION PICC DRAW/ INFUSION PICC DRAW/ INFUSION PICC DRAW/ INFUSION PICC DRAW & DRSG CHANGE PICC DRAW/ INFUSION PICC DRAW/ INFUSION PICC DRAW/ INFUSION PICC DRAW/ INFUSION PICC DRAW/ INFUSION Chief Complaint IV antibiotics IV antibiotics/ INFUSION IV antibiotics PICC DRAW/ INFUSION PICC DRAW/ INFUSION PICC DRAW/ INFUSION PICC DRAW/ INFUSION PICC DRAW/ INFUSION PICC DRAW/ INFUSION PICC DRAW/ INFUSION PICC DRAW/ INFUSION PICC DRAW PICC DRAW/ INFUSION PICC DRAW/ INFUSION PICC DRAW/ INFUSION PICC DRAW/ INFUSION PICC DRAW/ INFUSION PICC DRAW/ INFUSION PICC DRAW PICC DRAW/ INFUSION PICC DRAW/ INFUSION PICC DRAW/ INFUSION PICC DRAW/ INFUSION PICC DRAW/ INFUSION PICC DRAW/ INFUSION PICC DRAW & DRSG CHANGE PICC DRAW/ INFUSION PICC DRAW/ INFUSION PICC DRAW/ INFUSION PICC DRAW/ INFUSION PICC DRAW/ INFUSION PICC DRAW/ INFUSION PICC DRAW & DRSG CHANGE PICC DRAW/ INFUSION PICC DRAW/ INFUSION PICC DRAW/ INFUSION PICC DRAW/ INFUSION PICC DRAW/ INFUSION PICC DRAW/ INFUSION PICC DRAW & DRSG CHANGE PICC DRAW/ INFUSION PICC DRAW/ INFUSION PICC DRAW/ INFUSION PICC DRAW/ INFUSION PICC DRAW/ INFUSION PICC DRAW/ INFUSION Chief Complaint IV antibiotics IV antibiotics/ INFUSION IV antibiotics PICC DRAW/ INFUSION PICC DRAW/ INFUSION PICC DRAW/ INFUSION PICC DRAW/ INFUSION PICC DRAW/ INFUSION PICC DRAW/ INFUSION PICC DRAW/ INFUSION PICC DRAW/ INFUSION PICC DRAW PICC DRAW/ INFUSION PICC DRAW/ INFUSION PICC DRAW/ INFUSION PICC DRAW/ INFUSION PICC DRAW/ INFUSION PICC DRAW/ INFUSION PICC DRAW PICC DRAW/ INFUSION PICC DRAW/ INFUSION PICC DRAW/ INFUSION PICC DRAW/ INFUSION PICC DRAW/ INFUSION PICC DRAW/ INFUSION PICC DRAW & DRSG CHANGE PICC DRAW/ INFUSION PICC DRAW/ INFUSION PICC DRAW/ INFUSION PICC DRAW/ INFUSION PICC DRAW/ INFUSION PICC DRAW/ INFUSION PICC DRAW & DRSG CHANGE PICC DRAW/ INFUSION PICC DRAW/ INFUSION PICC DRAW/ INFUSION PICC DRAW/ INFUSION PICC DRAW/ INFUSION PICC DRAW/ INFUSION PICC DRAW & DRSG CHANGE PICC DRAW/ INFUSION PICC DRAW/ INFUSION PICC DRAW/ INFUSION PICC DRAW/ INFUSION PICC DRAW/ INFUSION PICC DRAW/ INFUSION PICC DRAW & DRSG CHANGE Chief Complaint IV antibiotics IV antibiotics/ INFUSION IV antibiotics PICC DRAW/ INFUSION PICC DRAW/ INFUSION PICC DRAW/ INFUSION PICC DRAW/ INFUSION PICC DRAW/ INFUSION PICC DRAW/ INFUSION PICC DRAW/ INFUSION PICC DRAW/ INFUSION PICC DRAW PICC DRAW/ INFUSION PICC DRAW/ INFUSION PICC DRAW/ INFUSION PICC DRAW/ INFUSION PICC DRAW/ INFUSION PICC DRAW/ INFUSION PICC DRAW PICC DRAW/ INFUSION PICC DRAW/ INFUSION PICC DRAW/ INFUSION PICC DRAW/ INFUSION PICC DRAW/ INFUSION PICC DRAW/ INFUSION PICC DRAW & DRSG CHANGE PICC DRAW/ INFUSION PICC DRAW/ INFUSION PICC DRAW/ INFUSION PICC DRAW/ INFUSION PICC DRAW/ INFUSION PICC DRAW/ INFUSION PICC DRAW & DRSG CHANGE PICC DRAW/ INFUSION PICC DRAW/ INFUSION PICC DRAW/ INFUSION PICC DRAW/ INFUSION PICC DRAW/ INFUSION PICC DRAW/ INFUSION PICC DRAW & DRSG CHANGE PICC DRAW/ INFUSION PICC DRAW/ INFUSION PICC DRAW/ INFUSION PICC DRAW/ INFUSION PICC DRAW/ INFUSION PICC DRAW/ INFUSION PICC DRAW & DRSG CHANGE PICC DRAW/ INFUSION Chief Complaint IV antibiotics IV antibiotics/ INFUSION IV antibiotics PICC DRAW/ INFUSION PICC DRAW/ INFUSION PICC DRAW/ INFUSION PICC DRAW/ INFUSION PICC DRAW/ INFUSION PICC DRAW/ INFUSION PICC DRAW/ INFUSION PICC DRAW/ INFUSION PICC DRAW PICC DRAW/ INFUSION PICC DRAW/ INFUSION PICC DRAW/ INFUSION PICC DRAW/ INFUSION PICC DRAW/ INFUSION PICC DRAW/ INFUSION PICC DRAW PICC DRAW/ INFUSION PICC DRAW/ INFUSION PICC DRAW/ INFUSION PICC DRAW/ INFUSION PICC DRAW/ INFUSION PICC DRAW/ INFUSION PICC DRAW & DRSG CHANGE PICC DRAW/ INFUSION PICC DRAW/ INFUSION PICC DRAW/ INFUSION PICC DRAW/ INFUSION PICC DRAW/ INFUSION PICC DRAW/ INFUSION PICC DRAW & DRSG CHANGE PICC DRAW/ INFUSION PICC DRAW/ INFUSION PICC DRAW/ INFUSION PICC DRAW/ INFUSION PICC DRAW/ INFUSION PICC DRAW/ INFUSION PICC DRAW & DRSG CHANGE PICC DRAW/ INFUSION PICC DRAW/ INFUSION PICC DRAW/ INFUSION PICC DRAW/ INFUSION PICC DRAW/ INFUSION PICC DRAW/ INFUSION PICC DRAW & DRSG CHANGE PICC DRAW/ INFUSION D/C PICC line Additional Source Comments INFORMATION SOURCE (unrecogn ized section and content) DATE CREATED AUTHOR 12/25/2022 [facility] DATE CREATED AUTHOR AUTHOR'S ORGANIZ ATION 02/17/2023 [facility] DATE CREATED AUTHOR AUTHOR'S ORGANIZ ATION 07/25/2023 [facility] DATE CREATED AUTHOR AUTHOR'S ORGANIZ ATION 09/15/2023 [facility] DATE CREATED AUTHOR AUTHOR'S ORGANIZ ATION 01/28/2024 [facility] DATE CREATED AUTHOR AUTHOR'S ORGANIZ ATION 03/04/2024 [facility] DATE CREATED AUTHOR AUTHOR'S ORGANIZ ATION 04/15/2024 [facility] DATE CREATED AUTHOR AUTHOR'S ORGANIZ ATION 04/29/2024 [facility] DATE CREATED AUTHOR AUTHOR'S ORGANIZ ATION 12/26/2024 [facility] Reason for Visit (unrecogniz ed section and content) Reason Onset Date Comments Care Coordination 02/19/2023 Specialty Diagnoses / Procedures Referred By Genet t Referred To Contact Radiology Diagnoses Encephalopathy Procedures MR brain w and wo contrast Behzad Almaraz MD [address] [place] [address] Referral ID Status Reason Start Date Expiration Date V isits Requested Visits Authorized [id number] Authorized 03/18/2023 03/17/2024 1 1 Reason Onset Date Comments Other 06/11/2023 Reason Comments Rash Lower stomach and gr oin area x4 days Reason Comments Vaginal Problem Redness and pain x2 days Reason Onset Date Comments Care Coordination 04/13/2024 Lung Nodule Fo llow Up Care Teams (unrecognized sec tion and content) Digital Librarian Relationship Specialty Start Date End Date [facility] [address] [place] [address] PCP - General 03/24/23 Digital Librarian Relationship Specialty Start Date End Date [facility] [address] [place] [address] PCP - General 03/24/23 Digital Librarian Relationship Specialty Start Date End Date [facility] [address] [place] [address] PCP - General 03/24/23 Team Status: Active Member Role Status Dates Dr. Sulma Malone DO Family Provider Active Dr. Sulma Malone DO Primary Care Provider Active Team Status: Inactive Member Role Status Dates Dr. Sulma Malone DO Primary Care Provider Active Dr. Roman Faith MD Attending Provider, Referring Provider Active Digital Librarian Relationship Specialty Start Date End Date [facility] [address] [place] [address] PCP - General 03/24/23 Digital Librarian Relationship Specialty Start Date End Date [facility] [address] [place] [address] PCP - General 03/24/23 Team Status: Inactive Member Role Status Dates Dr. Sulma Malone DO Primary Care Provider Active Dr. Sulma Alexander MD Attending Provider, Referrin g Provider Active Digital Librarian Relationship Specialty Start Date End Date Sulma Malone DO [address] [place] [address] PCP - General Family Medicine 06/02/23 Dylan Finn DO [address] [place] [address] Orthopedics 06/10/23 Molina Faith MD [address] [place] [address] Infectious Diseases 06/10/23 Digital Librarian Relationship Specialty Start Date End Date Sulma Malone DO [address] [place] [id number] PCP - General Family Medicine 06/02/23 Dylan Finn DO [address] [place] [address] Orthopedics 06/10/23 Molina Faith MD [address] [address] Infectious Diseases 06/10/23 Digital Librarian Relationship Specialty Start Date End Date Shane Modi [address] [place] [address] PCP - General 03/24/23 Goals (unrecognized section and content) Goals may be documented in a n alternate sectionGoals may be documented in an alternate sectionGoals may be documented in an alternate sectionGoals may be documented in an alternate sectionGoals may be documented in an alternate sectionGoals may be documented in an alternate sectionGoals may be documented in an alternate sectionGoals may be documented in an alternate sectionGoals may be documented in an alternate sectionGoals may be documented in an alternate sectionGoals may be documented in an alternate sectionGoals may be documented in an alternate sectionGoals may be documented in an alternate sectionGoals may be documented in an alternate sectionGoals may be documented in an alternate section No data available for this sectionGoals may be documented in an alternate sectionGoals may be documented in an alternate sectionGoals may be documented in an alternate sectionGoals may be documented in an alternate sectionGoals may be documented in an alternate sectionGoals may be documented in an alternate sectionGoals may be documented in an alternate sectionGoals may be documented in an alternate sectionGoals may be documented in an alternate sectionGoals may be documented in an alternate sectionGoals may be documented in an alternate sectionGoals may be documented in an alternate sectionGoals may be documented in an alternate sectionGoals may be documented in an alternate sectionGoals may be documented in an alternate sectionGoals may be documented in an alternate sectionGoals may be documented in an alternate sectionGoals may be documented in an alternate sectionGoals may be documented in an alternate sectionGoals may be documented in an alternate sectionGoals may be documented in an alternate sectionGoals may be documented in an alternate sectionGoals may be documented in an alternate sectionGoals may be documented in an alternate sectionGoals may be documented in an alternate sectionGoals may be documented in an alternate sectionGoals may be documented in an alternate sectionGoals may be documented in an alternate sectionGoals may be documented in an alternate sectionGoals may be documented in an alternate sectionGoals may be documented in an alternate sectionGoals may be documented in an alternate sectionGoals may be documented in an alternate section No data available for this section Source Comments (unrecognize d section and content) In the event this informatio n is protected by the [facility] Confidentiality of Alcohol and Drug Abuse Patient Records regulations: The Federal rules restrict any use of the information to criminally investigate or prosecute any alcohol or drug abuse patient.[facility] the event this information is protected by the Federal Confidentiality of Alcohol and Drug Abuse Patient Records regulations: The Federal rules restrict any use of the information to criminally investigate or prosecute any alcohol or drug abuse patient.[facility] FOR RECORDS PERTAINING TO PATIENTS WHO ARE OR HAVE BEEN ENROLLED IN A CHEMICAL DEPENDENCY/SUBSTANCEABUSE PROGRAM, SOME INFORMATION MAY BE OMITTED. This clinical summary was aggregated from multiple sources. Caution should be exercised in using it in the provision of clinical care. This summary normalizes information from multiple sources, and as a consequence, information in this document may materially change the coding, format and clinical context of patient data. In addition, data may be omitted in some cases. CLINICAL DECISIONS SHOULD BE BASED ON THE PRIMARY CLINICAL RECORDS. [employer] [facility]. provides no warranty or guarantee of the accuracy or completeness of information in this document.
[2025-03-15] MEDS: 0.9% Normal Saline (1000mL) 1,000 ML 100 ML IV ×2 (13:48→20:00)
--- NOTE | 2025-03-15 14:09 | EX.ED.DYSGE1 ---
HPI History of Present Illness Chief Complaint: Stroke Alert Detail of Chief Complaint: Altered mental status, stroke alert, onset 11:30 AM Informant: spouse/S.O., family and EMS Onset/Context/Timing Onset: Today (Altered mental status and not using right side 11:30 AM last known well) and Yesterday (Once and daughter arrived she has not been feeling well since yesterday.) Context: Sudden Onset Timing: Waxes and wanes Quality: HPI narrative Location: Presents from home by EMS Current Severity: Severe Maximum Severity: Severe Worsened by: Unable to determine Relieved by: Unable to determine Associated Symptoms Associated Symptoms: Patient with speech impediment Narrative Narrative: Patient is an 80-year-old woman. She arrived by EMS as a stroke alert. Patient was normal until 11:30 AM. She had trouble with speech and apparently weakness left arm and left leg. She is having difficulty answering questions. She is unable to tell me her name, age or month. She has weakness on the right side that was confirmed. NIH was completed on the stroke order set and inadvertently signed prematurely and reason for second chart. Prior similar symptoms: No Recent Illness/Hospitalization: Yes (Per and daughter she has not felt well since yesterday with nausea.) [facility] Medical History MRSA bacteremia History of traumatic brain injury History of osteomyelitis History of ulcerative colitis Home Medications ?Medication ?Instructions ?Recorded ?Last Taken ?Type ciprofloxacin HCl 500 mg tablet 500 mg PO BIDAC #10 tabs 04/08/24 Unknown Rx Allergy/AdvReac Type Severity Reaction Status Date / Time Penicillins Allergy Swelling Verified 03/15/25 13:18 Surgical History S/P carpal tunnel release S/P tubal ligation S/P section Hx of lumbosacral spine surgery Social History household members: spouse housing: house Smoking Status: Never smoker alcohol intake: never substance use type: does not use ROS ROS ED Review of Systems ROS Unobtainable: due to mental status and other Details: I was not made aware of her illness so the arrived. And then was told by nursing staff that she has a temperature of 103 ?F EXAM Physical Exam Const Vital Signs: 03/15/25 13:23 03/15/25 13:26 03/15/25 13:41 Temperature 0 F L 103 F H 102.4 F H Temperature Source Temporal Oral Core Pulse Rate 115 H 114 H 123 H Respiratory Rate 18 22 H 18 Blood Pressure 174/80 H 123/110 H 149/71 H Blood Pressure Mean 111 114 97 Blood Pressure Source Monitor Manual Blood Pressure Position Semi-Fowlers Semi-Fowlers Blood Pressure Location Left Arm Left Arm Pulse Ox 93 100 99 Oxygen Delivery Method Room Air Room Air Room Air 03/15/25 13:47 03/15/25 13:56 03/15/25 14:11 Temperature 102.6 F H 102.8 F H 102.9 F H Temperature Source Core Core Core Pulse Rate 111 H 110 H 113 H Respiratory Rate 18 20 H 22 H Blood Pressure 140/73 H 139/82 H 139/82 H Blood Pressure Mean 95 101 101 Blood Pressure Source Monitor Monitor Blood Pressure Position Semi-Fowlers Semi-Fowlers Blood Pressure Location Left Arm Left Arm Pulse Ox 100 100 96 Oxygen Delivery Method Room Air Room Air Room Air 03/15/25 14:17 03/15/25 14:26 03/15/25 14:30 Temperature 102.4 F H 102.2 F H 102.2 F H Temperature Source Core Oral Core Pulse Rate 104 H 104 H 102 H Respiratory Rate 20 H 18 22 H Blood Pressure 138/65 H 124/77 H 140/73 H Blood Pressure Mean 89 92 95 Blood Pressure Source Monitor Blood Pressure Position Semi-Fowlers Blood Pressure Location Left Arm Pulse Ox 96 95 97 Oxygen Delivery Method Room Air Room Air Room Air 03/15/25 14:41 03/15/25 14:56 03/15/25 15:00 Temperature 102.2 F H 102 F H 102 F H Temperature Source Core Core Core Pulse Rate 103 H 100 100 Respiratory Rate 18 17 20 H Blood Pressure 138/65 H 117/61 117/61 Blood Pressure Mean 89 79 79 Blood Pressure Source Monitor Monitor Blood Pressure Position Supine Semi-Fowlers Blood Pressure Location Left Arm Left Arm Pulse Ox 95 95 95 Oxygen Delivery Method Room Air Room Air Room Air 03/15/25 15:30 03/15/25 16:00 03/15/25 16:30 Temperature Temperature Source Pulse Rate 100 101 H 102 H Respiratory Rate 22 H 24 H 21 H Blood Pressure 117/61 107/70 103/69 Blood Pressure Mean 79 82 80 Blood Pressure Source Blood Pressure Position Blood Pressure Location Pulse Ox 100 95 95 Oxygen Delivery Method Room Air Room Air Positive well nourished and well developed General Appearance ED: well developed and NAD; Negative for pallor HEENT Reports moist mucous membranes HEENT Narrative: Head is atraumatic no cephalic. Ears normal. Nares patent. Uvula midline. No deviation tongue or protrusion. Eyes PERRL and EOMs intact bilaterally Eyes Narrative: No visual field deficit determined by confrontation General Eye ED: Negative for pale conjunctiva or scleral icterus Neck no lymphadenopathy, supple and no JVD Chest Wall inspection of chest normal and palpation of chest normal Resp normal respiratory effort and clear to auscultation bilaterally Cardio regular rate, regular rhythm, S1 normal heart sound, S2 normal heart sound and no murmurs GI normal to inspection, nondistended, normoactive bowel sounds, non-tender and non-distended; Negative for hepatosplenomegaly Extremity normal to inspection Neuro No oriented x3 and CN's II-XII intact bilaterally Neuro Narrative: Patient does not move to light touch but moves her extremities to pain Sensorium / Orientation: Negative for alert Motor Exam: Negative for strength 5/5 throughout Psych Negative for mental status grossly normal Skin no rashes or lesions noted, no wounds and No skin turgor normal General Skin Exam: Negative for jaundice or pallor MDM MDM MDM Narrative Medical decision making narrative: Patient treated as a stroke alert. Patient NIH was 7 per my exam. She was markedly better when the neurologist for which you examined her. Once her vital signs were completed she was noted to have an elevated temperature. In light of this sepsis workup was initiated. I was informed by nursing staff that her urine does not appear normal. Will confirm if urine and urine culture was ordered by nursing staff and a chest x-ray has been ordered since verbal orders were given. If not I will enter them. TNK was ordered based on information was given by paramedics. At this point I am concerned the patient has acute delirium and reason for altered mental status. This would not explain the weakness she has on the right side, however. Agree with stroke neurology from [facility] she is not a candidate for TNK since the only objective finding he finds is weakness on the right side. Since there is no source for her fever or altered mental status consent was obtained for lumbar puncture. Also to administer Versed if needed. signed consent prior to procedure. Patient reports allergic reaction to penicillin with angioedema. In light of this and concern for meningitis since no obvious source she was treated with aztreonam, vancomycin, Bactrim to cover Listeria since she is greater than the age of 65 and acyclovir. History & Record Review Discussion w/independent historian: Family and Significant other Lab Data Attestation: I reviewed the patient's lab results. Lab results narrative: White count is elevated 18.3 thousand with shift. H&H is 10.5 and 29.8 with normal indices. Electrolyte panel reveals a potassium of 3.4, chloride of 110, CO2 of 18 with an anion gap of 10. Lactate is elevated 2.1. Renal function is normal. Glucose is slightly elevated at 106. First troponin slightly elevated 15. Labs: Laboratory Results - last 24 hr 03/15/25 03/15/25 03/15/25 14:09 14:50 14:55 WBC 18.3 H RBC 3.56 L Hgb 10.5 L Hct 29.8 L MCV 83.7 MCH 29.5 MCHC 35.2 RDW Std Deviation 40.6 RDW Coeff of Felice 13.2 Plt Count 266 MPV 8.9 Immature Gran % (Auto) 0.400 Neut % (Auto) 89.6 H Lymph % (Auto) 4.8 L [place] % (Auto) 5.0 Eos % (Auto) 0.0 Baso % (Auto) 0.2 Absolute Neuts (auto) 16.4 H Absolute Lymphs (auto) 0.87 Nucleated RBC % 0 PT Cancelled 15.4 H INR Cancelled 1.2 APTT Cancelled 27.4 Sodium 139 Potassium 3.4 L Chloride 110 H Carbon Dioxide 18.4 L Anion Gap 10 BUN 14 Creatinine 0.74 Estim Creat Clear Calc 39.62 L Est GFR (MDRD) Non-Af 82 BUN/Creatinine Ratio 19.2 Glucose 106 H Lactic Acid 2.1 H* Calcium 8.9 Troponin T High Sens 15 H Urine Color Yellow Urine Clarity Clear Urine pH 5.0 Ur Specific [place] 1.010 Urine Protein 30 H Urine Glucose (UA) Normal Urine Ketones 15 H Urine Occult Blood 150 H Urine Nitrite Negative Urine Bilirubin Negative Urine Urobilinogen Normal Ur Leukocyte Esterase Negative Urine RBC 10-25 SEEN Urine WBC 0-5 SEEN Ur Squamous Epith Cells 5-10 SEEN Urine Bacteria RARE Urine Mucus 0 SEEN Radiography Chest X-Ray - ED: 1 View and Read by ED Physician (No acute pathology. There is cardiomegaly. There is no obvious infiltrate or effusion. 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 No evidence of acute intracranial hemorrhage, hydrocephalus, or herniation. Bilateral basal ganglia calcifications. Stroke Alert: No evidence of acute intracranial hemorrhage, hydrocephalus, or herniation. The critical findings in the findings and impression above were relayed directly by me by telephone to Loki Melendrez on 03/15/2025 at 1330 hours with readback verification. 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 No hemodynamically significant stenosis in the left internal carotid artery. No hemodynamically significant stenosis intracranially at the osage of fluids or posterior circulation. Reading Location: [facility] Chest X-Ray 03/15/25 14:17 IMPRESSION: Cardiomegaly without radiographic evidence of acute cardiopulmonary disease. Reading Location: [facility] EKG Initial EKG: Attestation: I personally reviewed and interpreted this EKG as follows: Interpretation: Sinus Tachycardia (Rate is at 112 otherwise EKG is normal. RI interval is 188 ms. Chemistries 106 ms. QT duration 3 to 38 ms. [place] is normal.) Management Discussion w/another healthcare provider: Hospitalist (Spoke with the hospitalist, Dr. Bela Iyer. Patient admitted PCU stepdown. He was informed of the upper GI bleed that occurred 5 minutes prior to her calling back. Will treat with Protonix.), [employer] ([facility] neurologist was informed of patient's history and physical prior to and daughter arriving. Agree with his assessment especially that she now has been determined to have a temperature of 103 ?F) and Radiologist Procedures Lumbar Puncture Consent/Risks: Consent for procedure obtained and Risks/Benefits/Alternatives Discussed Lumbar Puncture Description: Right, Lateral, Sterile Prep, Betadine Prep, Sterile Technique, L3-4 (Successfully cannulated on second attempt. Slightly bloody became clear and colorless with an opening pressure of 11 cm) and L4-5 (5 attempts at L4-5 were unsuccessful) Spinal Needle: 20 Sedation: Patient required sedation using 2 mg of Versed Opening Pressure: 11 cm Fluid Color: Initially slightly blood-tinged became clear in color Procedural Sedation 1 (Initial Baseline): Consent Signed: Yes Any Problems With Anesthesia: No Sedation medication: Versed (2 mg) Dose: 2 Total Moderate Sedation Units: 12 Maliampati Score: Class II ASA Classification: E and II Comment:: Patient was not cooperative without Versed. She was given 2 mg of Versed. 5 attempts were made at LP for 5 that were unsuccessful. On second attempt L3-4 was cannulated. Fluid slightly blood-tinged initially which cleared. Open impression was 11 cm. Patient did have hypoxia requiring supplemental oxygen. This was not expected since the dose she received is an antianxiety attack dose. Critical Care Time Critical Care Time: Yes Critical care time (excluding procedures): 30-74 minutes (32), Including time spent: (History, physical, documentation, independent rotation laboratory results, this excludes time for sedation and LP), Discussing w/Patient &/or Family/Systems Requirements Planner (Discussed initially with EMS. Once family arrived spoke to them multiple times and reason for LP explained the risk benefits of LP and in the event that medicine would need to relax her. signed consent form.), Discussing w/Consultants (Radiologist x 2 and neurologist from [facility]), Arranging Admission or Transfer, Performing Direct Patient Care at Bedside (For repeat examinations. NIH per nursing staff was suspended. This was suspended since patient's mental status was altered after the Versed.) and - (This excludes time for procedure) Discharge Plan Dx/Rx/DC Orders Clinical Impression: SIRS (systemic inflammatory response syndrome), Acute encephalopathy, Sinus tachycardia seen on vehicle monitor technician, Muscle weakness of right upper extremity, Weakness of right lower extremity, Acute upper gastrointestinal bleeding Disposition Disposition: Acute Care [facility]
--- NOTE | 2025-03-15 14:12 | ED.RN ---
patient was able to read sentences with neurologist on stroke computer and follow commands. is not able to answer any questions verbally. once said today when asked birthday, but did not give date. and daughter at bedside. pt will shake head yes/no. neurologist recommending to hold off on tenectaplase at this time unless patient does not improve. see ED physician documentation as well.
--- NOTE | 2025-03-15 14:17 | RAD_ITS ---
PROCEDURE: CHEST 1 VIEW (PORTABLE) 03/15/2025 REASON FOR EXAM: FEVER, ACUTE DELIRIUM, TACHYPNEA TECHNIQUE: Frontal view of the chest. COMPARISON: 03/18/2024 chest x-ray FINDINGS: LINES/DEVICES: None. LUNGS: No consolidation, edema or effusion. No pneumothorax. MEDIASTINUM AND CARDIOVASCULAR STRUCTURES: Stable cardiomegaly. BONES AND SOFT TISSUES: No acute changes. Stable chronic left posterior lateral rib deformities. RAD/Chest 1 View (Portable) IMPRESSION: Cardiomegaly without radiographic evidence of acute cardiopulmonary disease. Reading Location: [id number]
[2025-03-15 14:29] LABS: Hematocrit 29.8 % (37-47); Hemoglobin 10.5 g/dL (12.0-15.0); Immature Granulocytes Count 0.080 X10^3/uL (0.0-0.0); Mean Corp Hgb Conc 35.2 g/dL (32-36); Mean Corpuscular Volume 83.7 fL (81-99); Mean Platelet Vol. 8.9 fl (6.2-12.0); NRBC Flagged by Analyzer 0 % (0-5); Platelet Count 266 K/mm3 (150-450); RBC Distribution Width CV 13.2 % (11.6-14.6); RBC Distribution Width SD 40.6 fl (35.1-43.9); Red Blood Count 3.56 M/mm3 (4.2-5.4); White Blood Count 18.3 K/mm3 (4.4-11.0)
[2025-03-15 14:37] LABS: Anion Gap 10 (7-18); BUN 14 mg/dL (4-19); BUN/Creat Ratio 19.2 RATIO (10-20); Calcium,Total 8.9 mg/dL (7.6-11.0); Carbon Dioxide 18.4 mmol/L (20.0-29.0); Chloride 110 mmol/L (96-106); Estimated Creatinine Clearance 39.62 ml/min (50-250); Glucose 106 mg/dL (70-99); Potassium 3.4 mmol/L (3.5-5.1); Troponin T High Sensitivity 15 ng/L (<=14)
[2025-03-15 15:12] LABS: Mucous, Urine 0 SEEN /hpf (<or=2+)
[2025-03-15 15:21] LABS: Color, Urine Yellow (Yellow); Glucose, Dipstick Normal (Normal); Ketone-Dipstick 15 mg/dl (Negative); Leukocyte Esterase-Dipstick Negative /ul (Negative); Nitrite-Dipstick Negative (Negative); Occult Blood-Urine 150 /ul (Negative); Protein-Dipstick 30 mg/dl (Negative); Specific Gravity, Urine 1.010 (1.002-1.030); Urine Bilirubin Dipstick Negative (Negative)
[2025-03-15 15:24] LABS: Prothrombin Time (Protime)PT. 15.4 SECONDS (11.7-14.9)
[2025-03-15 15:25] LABS: Partial Thromboplast Time 27.4 Seconds (24.1-36.2)
[2025-03-15 15:32] LABS: Red Blood Cells-Urine 10-25 SEEN /hpf (0-5); Squamous Epithelial Cells - UA 5-10 SEEN /hpf (5-10)
[2025-03-15] MEDS: Aztreonam 2 GM 2 GM in 0.9% Normal Saline (100mL MB+) 100 ML IV (16:23)
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
[2025-03-15 16:56] LABS: Body Fluid Mononuclear WBC # 0.002 10^3/uL; Body Fluid Mononuclear WBC % 100.0 %; Body Fluid Polynuclear WBC # 0.000 10^3/uL; Body Fluid Polynuclear WBC % 0.0 %
[2025-03-15 17:00] LABS: Troponin T High Sens 2 HR 17 ng/L (<=14)
[2025-03-15 17:01] LABS: Glucose Spinal Fluid 72 mg/dL (40-75); Protein Spinal Fluid 33.6 mg/dL (15.0-45.0)
[2025-03-15] MEDS: Midazolam 2 MG/2 ML Syringe IV (17:19)
[2025-03-15] MEDS: Lidocaine 1% (20 ml mdv) 20 ML Vial INFILT (17:19)
[2025-03-15] MEDS: Pantoprazole Sodium 80 MG in 0.9% Normal Saline (50mL Bag) 15 ML 420 MG IV BOLUS (17:23)
[2025-03-15] MEDS: Vancomycin HCl 1,250 MG in 0.9% Normal Saline (250mL Bag) 250 ML 167 MG IV (17:23)
--- OUTSIDE RECORDS SUMMARY | 2025-03-15 17:38 | XMS RPT_ITS | CCD ---
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 Role Phone Unavailable Primary Care Provider [...] RDZ MD Primary Care Unavailable REGINALDO CABRERA SAFETY AND HEALTH CONSULTANT Consulting Unavailable PROVIDER, UNKNOWN Consulting Unavailable FAISAL GARCIA Admitting Unavailable FAISAL GARCIA Attending Unavailable FAISAL GARCIA Primary Care Unavailable REGINALDO CABRERA SAFETY AND HEALTH CONSULTANT Consulting Unavailable REGINALDO CABRERA SAFETY AND HEALTH CONSULTANT Referring Unavailable PROVIDER, UNKNOWN Consulting Unavailable Sulma Malone DO Primary Care Provider Dylan Finn DO Unavailable [phone] Molina Faith MD Unavailable [phone] SULMA MALONE DO Primary Care Unavailable MOLINA [...] Attending Unavailable MOLINA FAITH Consulting Gabriel salter [facility] [place] Primary Care Unavailable Roman Faith Attending [...] Iyer Consulting Unavailable Sulma Alexander Consulting Unavailable Manuel Amos Consulting Unavailable Manuel Amos Referring Unavailable Rosalia Mensah Attending Unavailable Julia Hansen Consulting Unavailable Julia Hansen Admitting Unavailable Faisal, Sulma Primary Care Unavailable Nadya Goodwin Attending Unavailable Fantasma Prieto Consulting Unavailable Nadya Goodwin Consulting Unavailable Faisal, Sulma Primary Care Unavailable Roman [...] Consulting Unavailable Faisal, Sulma Primary Care Unavailable aNdya Goodwin Attending Unavailable Fantasma Prieto Consulting Unavailable [...] Marc Referring Unavailable MarcellRoman Attending Unavailable Faisal, [place] Primary Care Unavailable Marcell, Marc Attending Unavailable [...] sources) Penicillins Allergy to substance 12-18-19 Swelling [facility] (2 sources) Penicillin; Translations: [penicillin] Drug Allergy Weal (disorder) [facility] (1 source) Penicillin Drug Allergy [facility] (2 sources) Penicillins Drug Allergy 06-22-19 18 Hives, Unknown, Swelling [facility] (2 sources) Valproate Drug Allergy 02-09-[address] [facility] (1 source) Penicillins Drug allergy (disorder) 04-03-19 [facility] Repository Medications Current Medications Medication Drug [...] 30 tablet 2 06/09/2023 09/07/2023 Active nystatin 149035 unt/ml topical cream (2 sources) Polyene Antifungal [...] qHS, # 30 tab(s), 0 Refill(s), Pharmacy: 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] Onset: 3 Episodic [...] loss of consciousness status unknown, initial encounter ([facility]); Translations: [Traumatic subdural hemorrhage with loss of consciousness status unknown, initial encounter ([facility])] Onset: 3 Unclassified (1 source) Unspecified intracranial injury with loss of consciousness status unknown, initial encounter ([facility]); Translations: [Unspecified intracranial injury with loss of consciousness status unknown, initial encounter ([facility])] Onset: 3 Unclassified (1 source) Acute midline [...] sources) Long-term current use of antibiotic; Translations: [group home (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 antibiotics] Onset: 03-01-2023 03-01-2023 Episodic Other aftercare (1 source) Encounter for adjustment and management of vascular access device; Translations: [PICC (peripherally inserted central catheter) in place] Onset: 06-10-2023 Episodic Other GRISTMILLER infection and poliomyelitis (2 sources) Intraspinal abscess [...] loss of consciousness status unknown, initial encounter ([facility]); Translations: [Traumatic subdural hemorrhage with loss of consciousness status unknown, initial encounter ([facility])] Onset: 12-17-2022 Unclassified (1 source) Unspecified intracranial injury with loss of consciousness status unknown, initial encounter ([facility]); Translations: [Unspecified intracranial injury with loss of consciousness status unknown, initial encounter ([facility])] Onset: 12-17-2022 Viral infection (20 sources) Disease caused by 2019-nCoV; Translations: [COVID-19] Onset: 03-09-2023 03-10-2023 Episodic Results Test Name Value Interpretation Reference Range Facility OV 12-14-2024 CNOV Office Visit (OBGYWM ) ZOILA WEBSTER ([id number]) 1945 F Date Time Provider Department 12/14/24 8:30 AM HARI CASIANO OBGYWM During your visit today, we recorded the following information about you: Blood pressure Weight 118/68 53.3 kg Hari Casiano MD 12/14/2024 9:28 AM Signed Obstetrics and Gynecology [place] 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 Patient/authorized accounting representative agreed to proceed CHIEF COMPLAINT: The [...] OB History No obstetric history on file. Rehab Director Occupational Therapist History LMP: Postmenopausal Age at Menarche: Age at First : Age at Menopause: Rehab Director Occupational Therapist History Comments: Sexual Activity: Not Currently; No [...] 12/14/2024 9:27 AM Signed - Contact the front desk monitor to schedule a dedicated pelvic ultrasound in Radiology; if you have trouble getting an appointment, send a Fliqz message to my staff. - The ultrasound will be read by a gynecologic business analytics specialist and may include an abdominal and/or [...] leiomyoma, unspecified location [D25.9] Order(s):PELVIC US WHI [[id number]] Order #: [id number]: 1 FUTURE Problem List As Of Date 12/14/2024 Noted Resolved MRSA bacteremia [R78.81, B95.62] 06/09/2023 Anemia associated with acute blood loss [D62] 06/09/2023 TBI (traumatic brain injury) (HCC) [S06.9XAA] 06/09/2023 Chronic back pain [M54.9, G89.29] 06/09/2023 History of colitis [Z87.19] 06/09/2023 GERD (gastroesophageal reflux disease) [K (more content not included)... Normal [facility] 36on 04-13-2024 36 Per EMR review, pt w as due for repeat CT Chest for assessment of 5 mm lung nodules being followed from CT Chest at [facility] on 03/21/23. Recommend[address] Fisher who saw her at [facility] Medical was to repeat imaging in 4-6 months - due August 2023. Patient has had her care at [facility] since then. Does not appear any further imaging has been completed per Care Everywhere and [facility] review. Letter mailed to patient as a reminder to continue optional lung nodule surveillance. Normal [facility] CDIFF (PCR)on 04-07-2024 CDIFF Normal [facility] Comment on above: Performed By: #### M 100.6796 ####[facility] [address] [place], [address] Urine Cultureon 04-05-2024 URC Normal [facility] Comment on above: Performed By: #### M 100.2200 ####[facility] [address] [place], [address] CBC W/Diff, Automatedon 03-22 Absolute Lymph 3.33 X10 3/uL Normal 0.83-4.51 [facility] Comment on above: Performed By: #### L 100.0100, L501.5200, L501.2300, L500.4050 ####[facility] [address] [place], [address] Absolute Neut 9.2 X10 3/uL High 2.0-7.7 [facility] Comment on above: Performed By: #### L 100.0100, L501.5200, L501.2300, L500.4050 ####[facility] [address] [place], [address] Basophils/100 WBC (Bld) 0.3 % Normal 0-1 [facility] Comment on above: Performed By: #### L 100.0100, L501.5200, L501.2300, L500.4050 ####[facility] [address] [place], [address] Eosinophils/100 WBC (Bld) 0.7 % Normal 0-5 [facility] Comment on above: Performed By: #### L 100.0100, L501.5200, L501.2300, L500.4050 ####[facility] [address] [place], [address] Erythrocyte distribution width (RBC) [Ratio] 12.6 % Normal 11.6-14.6 [facility] Comment on above: Performed By: #### L 100.0100, L501.5200, L501.2300, L500.4050 ####[facility] [address] [place], [address] Hematocrit (Bld) [Volume fraction] 37.0 % Normal 37-47 [facility] Comment on above: Performed By: #### L 100.0100, L501.5200, L501.2300, L500.4050 ####[facility] [address] [place], [address] Hemoglobin (Bld) [Mass/Vol] 12.1 g/dL Normal 12.0-15.0 [facility] Comment on above: Performed By: #### L 100.0100, L501.5200, L501.2300, L500.4050 ####[facility] [address] [place], [address] IG% 0.400 Normal 0.0-0.9 [facility] Comment on above: Result Comment: IG% - Immature Granulocytes (promyelocytes, myelocytes andmetamyelocytes) > 1% indicates that a LEFT SHIFT is Present. Performed By: #### L 100.0100, L501.5200, L501.2300, L500.4050 ####[facility] [address] [place], [address] Lymphocytes/100 WBC (Bld) 24.2 % Normal 19-41 [facility] Comment on above: Performed By: #### L 100.0100, L501.5200, L501.2300, L500.4050 ####[facility] [address] [place], [address] MCH (RBC) [Entitic mass] 27.5 pg Normal 27.0-32.0 [facility] Comment on above: Performed By: #### L 100.0100, L501.5200, L501.2300, L500.4050 ####[facility] [address] [place], [address] MCHC (RBC) [Mass/Vol] 32.7 g/dL Normal 32-36 [facility] Comment on above: Performed By: #### L 100.0100, L501.5200, L501.2300, L500.4050 ####[facility] [address] [place], [address] MCV (RBC) [Entitic vol] 84.1 fL Normal 81-99 [facility] Comment on above: Performed By: #### L 100.0100, L501.5200, L501.2300, L500.4050 ####[facility] [address] [place], [address] Monocytes/100 WBC (Bld) 7.6 % Normal 0-10 [facility] Comment on above: Performed By: #### L 100.0100, L501.5200, L501.2300, L500.4050 ####[facility] [address] [place], [address] Neutrophils/100 WBC (Bld) 66.8 % Normal 47-70 [facility] Comment on above: Performed By: #### L 100.0100, L501.5200, L501.2300, L500.4050 ####[facility] [address] [place], [address] Nucleated RBC (Bld) [#/Vol] 0 10*3/uL Normal 0-5 [facility] Comment on above: Performed By: #### L 100.0100, L501.5200, L501.2300, L500.4050 ####[facility] [address] [place], [address] Platelet mean volume (Bld) [Entitic vol] 9.2 fL Normal 6.2-12.0 [facility] Comment on above: Performed By: #### L 100.0100, L501.5200, L501.2300, L500.4050 ####[facility] [address] [place], [address] Platelets (Bld) [#/Vol] 363 10*3/uL Normal 150-450 [facility] Comment on above: Performed By: #### L 100.0100, L501.5200, L501.2300, L500.4050 ####[facility] [address] [place], [address] RBC (Bld) [#/Vol] 4.40 10*6/uL Normal 4.2-5.4 [facility] Comment on above: Performed By: #### L 100.0100, L501.5200, L501.2300, L500.4050 ####[facility] [address] [place], [address] RDW SD 38.7 fl Normal 35.1-43.9 [facility] Comment on above: Performed By: #### L 100.0100, L501.5200, L501.2300, L500.4050 ####[facility] [address] [place], [address] WBC (Bld) [#/Vol] 13.7 10*3/uL High 4.4-11.0 [facility] Comment on above: Performed By: #### L 100.0100, L501.5200, L501.2300, L500.4050 ####[facility] [address] [place], [address] Comprehensive Metabolic Prof ilon 04-04-2024 Albumin [Mass/Vol] 2.8 g/dL Low 3.2-5.0 [facility] Comment on above: Performed By: #### L 100.0100, L501.5200, L501.2300, L500.4050 ####[facility] [address] [place], [address] Albumin/Globulin [Mass ratio] 0.7 {ratio} Low 0.9-2.4 [facility] Comment on above: Performed By: #### L 100.0100, L501.5200, L501.2300, L500.4050 ####[facility] [address] [place], [address] ALK P 55 U/L Normal 45-117 [facility] Comment on above: Performed By: #### L 100.0100, L501.5200, L501.2300, L500.4050 ####[facility] [address] [place], [address] ALT [Catalytic activity/Vol] 12 U/L Low 13-56 [facility] Comment on above: Performed By: #### L 100.0100, L501.5200, L501.2300, L500.4050 ####[facility] [address] [place], [address] AST [Catalytic activity/Vol] 17 U/L Normal 15-37 [facility] Comment on above: Result Comment: Slig ht Hemolysis, Result may be falsely increased. Performed By: #### L 100.0100, L501.5200, L501.2300, L500.4050 ####[facility] [address] [place], [address] Bilirubin [Mass/Vol] 0.60 mg/dL Normal 0.20-1.00 [facility] Comment on above: Result Comment: For patients on eltrombopag therapy, use of Dimension [place] TBIL is not recommended. Performed By: #### L 100.0100, L501.5200, L501.2300, L500.4050 ####[facility] [address] [place], [address] BUN/CRE 25.8 RATIO High 10-20 [facility] Comment on above: Performed By: #### L 100.0100, L501.5200, L501.2300, L500.4050 ####[facility] [address] [place], [address] CA,Total 9.6 mg/dL Normal 8.5-10.1 [facility] Comment on above: Performed By: #### L 100.0100, L501.5200, L501.2300, L500.4050 ####[facility] [address] [place], [address] Chloride [Moles/Vol] 114 mmol/L High 98-107 [facility] Comment on above: Performed By: #### L 100.0100, L501.5200, L501.2300, L500.4050 ####[facility] [address] [place], [address] CO2 [Moles/Vol] 23.0 mmol/L Normal 21.0-32.0 [facility] Comment on above: Performed By: #### L 100.0100, L501.5200, L501.2300, L500.4050 ####[facility] [address] [place], [address] Creatinine [Mass/Vol] 0.89 mg/dL Normal 0.55-1.02 [facility] Comment on above: Result Comment: The validity of the calculated GFR GFRAA in patients over70 years has not been determined. Clinical correlation isessential. Performed By: #### L 100.0100, L501.5200, L501.2300, L500.4050 ####[facility] [address] [place], [address] ECRCL 36.21 ml/min Normal [facility] Comment on above: Performed By: #### L 100.0100, L501.5200, L501.2300, L500.4050 ####[facility] [address] [place], [address] EST GFR - AA 78 mL/min Normal >60 [facility] Comment on above: Result Comment: Afri can Moz[place]ican GFR Calc Performed By: #### L 100.0100, L501.5200, L501.2300, L500.4050 ####[facility] [address] [place], [address] GAP 5 Normal 5-15 [facility] Comment on above: Performed By: #### L 100.0100, L501.5200, L501.2300, L500.4050 ####[facility] [address] [place], [address] GFR/1.73 sq M.predicted among non-blacks MDRD (S/P/Bld) [Vol rate/Area] 65 mL/min/{1.73_m2} Normal >60 [facility] Comment on above: Result Comment: Non- GFR Calc Performed By: #### L 100.0100, L501.5200, L501.2300, L500.4050 ####[facility] [address] [place], [address] Globulin (S) [Mass/Vol] 4.2 g/dL Normal 2.2-4.2 [facility] Comment on above: Performed By: #### L 100.0100, L501.5200, L501.2300, L500.4050 ####[facility] [address] [place], [address] Glucose [Mass/Vol] 107 mg/dL High 74-106 [facility] Comment on above: Result Comment: Fast ing Glucose result from 100 to 125 mg/dLsuggests IMPAIRED HOMEOSTASIS per A.D.A. criteria. Performed By: #### L 100.0100, L501.5200, L501.2300, L500.4050 ####[facility] [address] [place], [address] Potassium [Moles/Vol] 4.3 mmol/L Normal 3.5-5.1 [facility] Comment on above: Result Comment: Slig ht Hemolysis, Result may be falsely increased. Performed By: #### L 100.0100, L501.5200, L501.2300, L500.4050 ####[facility] [address] [place], [address] Sodium [Moles/Vol] 141 mmol/L Normal 136-145 [facility] Comment on above: Performed By: #### L 100.0100, L501.5200, L501.2300, L500.4050 ####[facility] [address] [place], [address] T PROT 7.0 g/dL Normal 6.4-8.2 [facility] Comment on above: Performed By: #### L 100.0100, L501.5200, L501.2300, L500.4050 ####[facility] [address] [place], [address] Urea nitrogen [Mass/Vol] 23 mg/dL High 7-18 [facility] Comment on above: Performed By: #### L 100.0100, L501.5200, L501.2300, L500.4050 ####[facility] [address] [place], [address] Magnesiumon 04-04-2024 Magnesium [Mass/Vol] 2.2 mg/dL Normal 1.6-2.6 [facility] Comment on above: Result Comment: Slig ht Hemolysis, Result may be falsely increased. Performed By: #### L 100.0100, L501.5200, L501.2300, L500.4050 ####[facility] [address] [place], [address] Phosphoruson 04-04-2024 Phosphate [Mass/Vol] 2.5 mg/dL Normal 2.5-4.9 [facility] Comment on above: Performed By: #### L 100.0100, L501.5200, L501.2300, L500.4050 ####[facility] [address] [place], [address] Bedside Glucoseon 04-03-2024 FINGERSTICK GLU 104 mg/dL Normal 74-106 [facility] Comment on above: Result Comment: SARAH CORREA OF PATIENT CARE PER NURSING PROTOCOL Performed By: #### L 501.080 ####[facility] [address] [place], [address] CBC W/Diff, Automatedon 03-22 Absolute Lymph 3.40 X10 3/uL Normal 0.83-4.51 [facility] Comment on above: Performed By: #### L 500.4050, L100.0100 ####[facility] [address] [place], [address] Absolute Neut 10.5 X10 3/uL High 2.0-7.7 [facility] Comment on above: Performed By: #### L 500.4050, L100.0100 ####[facility] [address] [place], [address] Basophils/100 WBC (Bld) 0.3 % Normal 0-1 [facility] Comment on above: Performed By: #### L 500.4050, L100.0100 ####[facility] [address] [place], [address] Eosinophils/100 WBC (Bld) 0.5 % Normal 0-5 [facility] Comment on above: Performed By: #### L 500.4050, L100.0100 ####[facility] [address] [place], [address] Erythrocyte distribution width (RBC) [Ratio] 12.7 % Normal 11.6-14.6 [facility] Comment on above: Performed By: #### L 500.4050, L100.0100 ####[facility] [address] [place], [address] Hematocrit (Bld) [Volume fraction] 42.5 % Normal 37-47 [facility] Comment on above: Performed By: #### L 500.4050, L100.0100 ####[facility] [address] [place], [address] Hemoglobin (Bld) [Mass/Vol] 13.8 g/dL Normal 12.0-15.0 [facility] Comment on above: Performed By: #### L 500.4050, L100.0100 ####[facility] [address] [place], [address] IG% 0.400 Normal 0.0-0.9 [facility] Comment on above: Result Comment: IG% - Immature Granulocytes (promyelocytes, myelocytes andmetamyelocytes) > 1% indicates that a LEFT SHIFT is Present. Performed By: #### L 500.4050, L100.0100 ####[facility] [address] [place], [address] Lymphocytes/100 WBC (Bld) 22.2 % Normal 19-41 [facility] Comment on above: Performed By: #### L 500.4050, L100.0100 ####[facility] [address] [place], [address] MCH (RBC) [Entitic mass] 27.3 pg Normal 27.0-32.0 [facility] Comment on above: Performed By: #### L 500.4050, L100.0100 ####[facility] [address] [place], [address] MCHC (RBC) [Mass/Vol] 32.5 g/dL Normal 32-36 [facility] Comment on above: Performed By: #### L 500.4050, L100.0100 ####[facility] [address] [place], [address] MCV (RBC) [Entitic vol] 84.0 fL Normal 81-99 [facility] Comment on above: Performed By: #### L 500.4050, L100.0100 ####[facility] [address] [place], [address] Monocytes/100 WBC (Bld) 8.0 % Normal 0-10 [facility] Comment on above: Performed By: #### L 500.4050, L100.0100 ####[facility] [address] [place], [address] Neutrophils/100 WBC (Bld) 68.6 % Normal 47-70 [facility] Comment on above: Performed By: #### L 500.4050, L100.0100 ####[facility] [address] [place], [address] Nucleated RBC (Bld) [#/Vol] 0 10*3/uL Normal 0-5 [facility] Comment on above: Performed By: #### L 500.4050, L100.0100 ####[facility] [address] [place], [address] Platelet mean volume (Bld) [Entitic vol] 8.8 fL Normal 6.2-12.0 [facility] Comment on above: Performed By: #### L 500.4050, L100.0100 ####[facility] [address] [place], [address] Platelets (Bld) [#/Vol] 398 10*3/uL Normal 150-450 [facility] Comment on above: Performed By: #### L 500.4050, L100.0100 ####[facility] [address] [place], [address] RBC (Bld) [#/Vol] 5.06 10*6/uL Normal 4.2-5.4 [facility] Comment on above: Performed By: #### L 500.4050, L100.0100 ####[facility] [address] [place], [address] RDW SD 38.9 fl Normal 35.1-43.9 [facility] Comment on above: Performed By: #### L 500.4050, L100.0100 ####[facility] [address] [place], [address] WBC (Bld) [#/Vol] 15.3 10*3/uL High 4.4-11.0 [facility] Comment on above: Performed By: #### L 500.4050, L100.0100 ####[facility] [address] [place], [address] Comprehensive Metabolic Prof ilon 04-03-2024 Albumin [Mass/Vol] 3.4 g/dL Normal 3.2-5.0 [facility] Comment on above: Performed By: #### L 500.4050, L100.0100 ####[facility] [address] [place], [address] Albumin/Globulin [Mass ratio] 0.7 {ratio} Low 0.9-2.4 [facility] Comment on above: Performed By: #### L 500.4050, L100.0100 ####[facility] [address] [place], [address] ALK P 71 U/L Normal 45-117 [facility] Comment on above: Performed By: #### L 500.4050, L100.0100 ####[facility] [address] [place], [address] ALT [Catalytic activity/Vol] 13 U/L Normal 13-56 [facility] Comment on above: Performed By: #### L 500.4050, L100.0100 ####[facility] [address] [place], [address] AST [Catalytic activity/Vol] 12 U/L Low 15-37 [facility] Comment on above: Performed By: #### L 500.4050, L100.0100 ####[facility] [address] [place], [address] Bilirubin [Mass/Vol] 0.50 mg/dL Normal 0.20-1.00 [facility] Comment on above: Result Comment: For patients on eltrombopag therapy, use of Dimension [place] TBIL is not recommended. Performed By: #### L 500.4050, L100.0100 ####[facility] [address] [place], [address] BUN/CRE 22.3 RATIO High 10-20 [facility] Comment on above: Performed By: #### L 500.4050, L100.0100 ####[facility] [address] [place], [address] CA,Total 10.6 mg/dL High 8.5-10.1 [facility] Comment on above: Performed By: #### L 500.4050, L100.0100 ####[facility] [address] [place], [address] Chloride [Moles/Vol] 110 mmol/L High 98-107 [facility] Comment on above: Performed By: #### L 500.4050, L100.0100 ####[facility] [address] [place], [address] CO2 [Moles/Vol] 25.0 mmol/L Normal 21.0-32.0 [facility] Comment on above: Performed By: #### L 500.4050, L100.0100 ####[facility] [address] [place], [address] Creatinine [Mass/Vol] 0.90 mg/dL Normal 0.55-1.02 [facility] Comment on above: Result Comment: The validity of the calculated GFR GFRAA in patients over70 years has not been determined. Clinical correlation isessential. Performed By: #### L 500.4050, L100.0100 ####[facility] [address] [place], [address] ECRCL 35.81 ml/min Normal [facility] Comment on above: Performed By: #### L 500.4050, L100.0100 ####[facility] [address] [place], [address] EST GFR - AA 78 mL/min Normal >60 [facility] Comment on above: Result Comment: Afri can Moz[place]ican GFR Calc Performed By: #### L 500.4050, L100.0100 ####[facility] [address] [place], [address] GAP 6 Normal 5-15 [facility] Comment on above: Performed By: #### L 500.4050, L100.0100 ####[facility] [address] [place], [address] GFR/1.73 sq M.predicted among non-blacks MDRD (S/P/Bld) [Vol rate/Area] 64 mL/min/{1.73_m2} Normal >60 [facility] Comment on above: Result Comment: Non- GFR Calc Performed By: #### L 500.4050, L100.0100 ####[facility] [address] [place], [address] Globulin (S) [Mass/Vol] 4.9 g/dL High 2.2-4.2 [facility] Comment on above: Performed By: #### L 500.4050, L100.0100 ####[facility] [address] [place], [address] Glucose [Mass/Vol] 116 mg/dL High 74-106 [facility] Comment on above: Result Comment: Fast ing Glucose result from 100 to 125 mg/dLsuggests IMPAIRED HOMEOSTASIS per A.D.A. criteria. Performed By: #### L 500.4050, L100.0100 ####[facility] [address] [place], [address] Potassium [Moles/Vol] 4.3 mmol/L Normal 3.5-5.1 [facility] Comment on above: Performed By: #### L 500.4050, L100.0100 ####[facility] [address] [place], [address] Sodium [Moles/Vol] 141 mmol/L Normal 136-145 [facility] Comment on above: Performed By: #### L 500.4050, L100.0100 ####[facility] [address] [place], [address] T PROT 8.3 g/dL High 6.4-8.2 [facility] Comment on above: Performed By: #### L 500.4050, L100.0100 ####[facility] [address] [place], [address] Urea nitrogen [Mass/Vol] 20 mg/dL High 7-18 [facility] Comment on above: Performed By: #### L 500.4050, L100.0100 ####[facility] [address] [place], [address] Emergency Department Summary on 04-03-2024 Emergency Department Summary Normal [facility] H AND P Exam - Hospitaliston 04-03-2024 H&P Exam - Hospitalist Normal [facility] M100.678on 04-03-2024 M100.678 Pending SARS-CoV-2 (COVID 19) Negative INFLUENZA A Negative INFLUENZA B Negative RSV PCR Negative Normal [facility] Comment on above: Performed By: #### M 100.678 ####[facility] [address] [place], [address] Urinalysis, Completeon 04-03 Mucus Ql (Urine sed) 1+ /hpf Normal [facility] Comment on above: Order Comment: RODNEY TER SPECIMEN Performed By: #### L 400.0001 ####[facility] [address] [place], [address] RBC 5-10 SEEN Normal 0-5 [facility] Comment on above: Order Comment: RODNEY TER SPECIMEN Performed By: #### L 400.0001 ####[facility] [address] [place], [address] WBC >100 SEEN Normal 0-5 [facility] Comment on above: Order Comment: RODNEY TER SPECIMEN Performed By: #### L 400.0001 ####[facility] [address] [place], [address] BACTERIA 0 SEEN Normal None Seen [facility] Comment on above: Order Comment: RODNEY TER SPECIMEN Performed By: #### L 400.0001 ####[facility] [address] [place], [address] EPI,SQUAMOUS 0 SEEN Normal 5-10 [facility] Comment on above: Order Comment: RODNEY TER SPECIMEN Performed By: #### L 400.0001 ####[facility] [address] [place], [address] Culture, Blood (WB)on 2024 CUB Blood cultures x2, f rom two different sites No growth in 5 days. Normal [facility] Comment on above: Performed By: #### M 200.1000 ####[facility] [address] [place], [address] CUB Blood cultures x2, f rom two different sites No growth in 5 days. Normal [facility] Comment on above: Performed By: #### M 200.1000 ####[facility] [address] [place], [address] Basic Metabolic Profile (BMP )on 03-23-2024 BUN Normal 7-18 [facility] Comment on above: Result Comment: Canc elled via OM: Order cancelled - Patient discharged Performed By: #### L 500.2500, L100.0500 ####[facility] [address] [place], [address] BUN/CRE Normal 10-20 [facility] Comment on above: Result Comment: Canc elled via OM: Order cancelled - Patient discharged Performed By: #### L 500.2500, L100.0500 ####[facility] [address] [place], [address] CA,Total Normal 8.5-10.1 [facility] Comment on above: Result Comment: Canc elled via OM: Order cancelled - Patient discharged Performed By: #### L 500.2500, L100.0500 ####[facility] [address] [place], [address] CL Normal 98-107 [facility] Comment on above: Result Comment: Canc elled via OM: Order cancelled - Patient discharged Performed By: #### L 500.2500, L100.0500 ####[facility] [address] [place], [address] CO2 Normal 21.0-32.0 [facility] Comment on above: Result Comment: Canc elled via OM: Order cancelled - Patient discharged Performed By: #### L 500.2500, L100.0500 ####[facility] [address] [place], [address] CREAT,SERUM Normal 0.55-1.02 [facility] Comment on above: Result Comment: Canc elled via OM: Order cancelled - Patient discharged Performed By: #### L 500.2500, L100.0500 ####[facility] [address] [place], [address] EST GFR Normal >60 [facility] Comment on above: Result Comment: Canc elled via OM: Order cancelled - Patient discharged Performed By: #### L 500.2500, L100.0500 ####[facility] [address] [place], [address] EST GFR - AA Normal >60 [facility] Comment on above: Result Comment: Canc elled via OM: Order cancelled - Patient discharged Performed By: #### L 500.2500, L100.0500 ####[facility] [address] [place], [address] GAP Normal 5-15 [facility] Comment on above: Result Comment: Canc elled via OM: Order cancelled - Patient discharged Performed By: #### L 500.2500, L100.0500 ####[facility] [address] [place], [address] GLU Normal 74-106 [facility] Comment on above: Result Comment: Canc elled via OM: Order cancelled - Patient discharged Performed By: #### L 500.2500, L100.0500 ####[facility] [address] [place], [address] Potassium Normal 3.5-5.1 [facility] Comment on above: Result Comment: Canc elled via OM: Order cancelled - Patient discharged Performed By: #### L 500.2500, L100.0500 ####[facility] [address] [place], [address] Basic Metabolic Profile (BMP) Normal 136-145 [facility] Comment on above: Result Comment: Canc elled via OM: Order cancelled - Patient discharged Performed By: #### L 500.2500, L100.0500 ####[facility] [address] [place], [address] CBC-Complete Blood Cnt No Di ffon 03-23-2024 HCT Normal 37-47 [facility] Comment on above: Result Comment: Canc elled via OM: Order cancelled - Patient discharged Performed By: #### L 500.2500, L100.0500 ####[facility] [address] [place], [address] HGB Normal 12.0-15.0 [facility] Comment on above: Result Comment: Canc elled via OM: Order cancelled - Patient discharged Performed By: #### L 500.2500, L100.0500 ####[facility] [address] [place], [address] MCH Normal 27.0-32.0 [facility] Comment on above: Result Comment: Canc elled via OM: Order cancelled - Patient discharged Performed By: #### L 500.2500, L100.0500 ####[facility] [address] [place], [address] MCHC Normal 32-36 [facility] Comment on above: Result Comment: Canc elled via OM: Order cancelled - Patient discharged Performed By: #### L 500.2500, L100.0500 ####[facility] [address] [place], [address] MCV Normal 81-99 [facility] Comment on above: Result Comment: Canc elled via OM: Order cancelled - Patient discharged Performed By: #### L 500.2500, L100.0500 ####[facility] [address] [place], [address] PLT Normal 150-450 [facility] Comment on above: Result Comment: Canc elled via OM: Order cancelled - Patient discharged Performed By: #### L 500.2500, L100.0500 ####[facility] [address] [place], [address] RBC Normal 4.2-5.4 [facility] Comment on above: Result Comment: Canc elled via OM: Order cancelled - Patient discharged Performed By: #### L 500.2500, L100.0500 ####[facility] [address] [place], [address] RDW CV Normal 11.6-14.6 [facility] Comment on above: Result Comment: Canc elled via OM: Order cancelled - Patient discharged Performed By: #### L 500.2500, L100.0500 ####[facility] [address] [place], [address] RDW SD Normal 35.1-43.9 [facility] Comment on above: Result Comment: Canc elled via OM: Order cancelled - Patient discharged Performed By: #### L 500.2500, L100.0500 ####[facility] [address] [place], [address] WBC Normal 4.4-11.0 [facility] Comment on above: Result Comment: Canc elled via OM: Order cancelled - Patient discharged Performed By: #### L 500.2500, L100.0500 ####[facility] [address] [place], [address] Basic Metabolic Profile (BMP )on 03-22-2024 BUN Normal 7-18 [facility] Comment on above: Result Comment: Canc elled via OM: Order cancelled - Patient discharged Performed By: #### L 500.2500, L100.0500 ####[facility] [address] [place], [address] BUN/CRE Normal 10-20 [facility] Comment on above: Result Comment: Canc elled via OM: Order cancelled - Patient discharged Performed By: #### L 500.2500, L100.0500 ####[facility] [address] [place], [address] CA,Total Normal 8.5-10.1 [facility] Comment on above: Result Comment: Canc elled via OM: Order cancelled - Patient discharged Performed By: #### L 500.2500, L100.0500 ####[facility] [address] [place], [address] CL Normal 98-107 [facility] Comment on above: Result Comment: Canc elled via OM: Order cancelled - Patient discharged Performed By: #### L 500.2500, L100.0500 ####[facility] [address] [place], [address] CO2 Normal 21.0-32.0 [facility] Comment on above: Result Comment: Canc elled via OM: Order cancelled - Patient discharged Performed By: #### L 500.2500, L100.0500 ####[facility] [address] [place], [address] CREAT,SERUM Normal 0.55-1.02 [facility] Comment on above: Result Comment: Canc elled via OM: Order cancelled - Patient discharged Performed By: #### L 500.2500, L100.0500 ####[facility] [address] [place], [address] EST GFR Normal >60 [facility] Comment on above: Result Comment: Canc elled via OM: Order cancelled - Patient discharged Performed By: #### L 500.2500, L100.0500 ####[facility] [address] [place], [address] EST GFR - AA Normal >60 [facility] Comment on above: Result Comment: Canc elled via OM: Order cancelled - Patient discharged Performed By: #### L 500.2500, L100.0500 ####[facility] [address] [place], [address] GAP Normal 5-15 [facility] Comment on above: Result Comment: Canc elled via OM: Order cancelled - Patient discharged Performed By: #### L 500.2500, L100.0500 ####[facility] [address] [place], [address] GLU Normal 74-106 [facility] Comment on above: Result Comment: Canc elled via OM: Order cancelled - Patient discharged Performed By: #### L 500.2500, L100.0500 ####[facility] [address] [place], [address] Potassium Normal 3.5-5.1 [facility] Comment on above: Result Comment: Canc elled via OM: Order cancelled - Patient discharged Performed By: #### L 500.2500, L100.0500 ####[facility] [address] [place], [address] Basic Metabolic Profile (BMP) Normal 136-145 [facility] Comment on above: Result Comment: Canc elled via OM: Order cancelled - Patient discharged Performed By: #### L 500.2500, L100.0500 ####[facility] [address] [place], [address] CBC-Complete Blood Cnt No Di ffon 03-22-2024 HCT Normal 37-47 [facility] Comment on above: Result Comment: Canc elled via OM: Order cancelled - Patient discharged Performed By: #### L 500.2500, L100.0500 ####[facility] [address] [place], [address] HGB Normal 12.0-15.0 [facility] Comment on above: Result Comment: Canc elled via OM: Order cancelled - Patient discharged Performed By: #### L 500.2500, L100.0500 ####[facility] [address] [place], [address] MCH Normal 27.0-32.0 [facility] Comment on above: Result Comment: Canc elled via OM: Order cancelled - Patient discharged Performed By: #### L 500.2500, L100.0500 ####[facility] [address] [place], [address] MCHC Normal 32-36 [facility] Comment on above: Result Comment: Canc elled via OM: Order cancelled - Patient discharged Performed By: #### L 500.2500, L100.0500 ####[facility] [address] [place], [address] MCV Normal 81-99 [facility] Comment on above: Result Comment: Canc elled via OM: Order cancelled - Patient discharged Performed By: #### L 500.2500, L100.0500 ####[facility] [address] [place], [address] PLT Normal 150-450 [facility] Comment on above: Result Comment: Canc elled via OM: Order cancelled - Patient discharged Performed By: #### L 500.2500, L100.0500 ####[facility] [address] [place], [address] RBC Normal 4.2-5.4 [facility] Comment on above: Result Comment: Canc elled via OM: Order cancelled - Patient discharged Performed By: #### L 500.2500, L100.0500 ####[facility] [address] [place], [address] RDW CV Normal 11.6-14.6 [facility] Comment on above: Result Comment: Canc elled via OM: Order cancelled - Patient discharged Performed By: #### L 500.2500, L100.0500 ####[facility] [address] [place], [address] RDW SD Normal 35.1-43.9 [facility] Comment on above: Result Comment: Canc elled via OM: Order cancelled - Patient discharged Performed By: #### L 500.2500, L100.0500 ####[facility] [address] [place], [address] WBC Normal 4.4-11.0 [facility] Comment on above: Result Comment: Canc elled via OM: Order cancelled - Patient discharged Performed By: #### L 500.2500, L100.0500 ####[facility] [address] [place], [address] Basic Metabolic Profile (BMP )on 03-21-2024 BUN/CRE 13.2 RATIO Normal 10-20 [facility] Comment on above: Performed By: #### L 500.2500, L100.0500 ####[facility] [address] [place], [address] CA,Total 10.0 mg/dL Normal 8.5-10.1 [facility] Comment on above: Performed By: #### L 500.2500, L100.0500 ####[facility] [address] [place], [address] Chloride [Moles/Vol] 110 mmol/L High 98-107 [facility] Comment on above: Performed By: #### L 500.2500, L100.0500 ####[facility] [address] [place], [address] CO2 [Moles/Vol] 25.0 mmol/L Normal 21.0-32.0 [facility] Comment on above: Performed By: #### L 500.2500, L100.0500 ####[facility] [address] [place], [address] Creatinine [Mass/Vol] 0.76 mg/dL Normal 0.55-1.02 [facility] Comment on above: Result Comment: The validity of the calculated GFR GFRAA in patients over70 years has not been determined. Clinical correlation isessential. Performed By: #### L 500.2500, L100.0500 ####[facility] [address] [place], [address] ECRCL 40.29 ml/min Normal [facility] Comment on above: Performed By: #### L 500.2500, L100.0500 ####[facility] [address] [place], [address] EST GFR - AA 94 mL/min Normal >60 [facility] Comment on above: Result Comment: Afri can [place] GFR Calc Performed By: #### L 500.2500, L100.0500 ####[facility] [address] [place], [address] GAP 5 Normal 5-15 [facility] Comment on above: Performed By: #### L 500.2500, L100.0500 ####[facility] [address] [place], [address] GFR/1.73 sq M.predicted among non-blacks MDRD (S/P/Bld) [Vol rate/Area] 78 mL/min/{1.73_m2} Normal >60 [facility] Comment on above: Result Comment: Non- GFR Calc Performed By: #### L 500.2500, L100.0500 ####[facility] [address] [place], [address] Glucose [Mass/Vol] 98 mg/dL Normal 74-106 [facility] Comment on above: Performed By: #### L 500.2500, L100.0500 ####[facility] [address] [place], [address] Potassium [Moles/Vol] 3.9 mmol/L Normal 3.5-5.1 [facility] Comment on above: Performed By: #### L 500.2500, L100.0500 ####[facility] [address] [place], [address] Sodium [Moles/Vol] 140 mmol/L Normal 136-145 [facility] Comment on above: Performed By: #### L 500.2500, L100.0500 ####[facility] [address] [place], [address] Urea nitrogen [Mass/Vol] 10 mg/dL Normal 7-18 [facility] Comment on above: Performed By: #### L 500.2500, L100.0500 ####[facility] [address] [place], [address] CBC-Complete Blood Cnt No Di ffon 03-21-2024 Erythrocyte distribution width (RBC) [Ratio] 12.7 % Normal 11.6-14.6 [facility] Comment on above: Performed By: #### L 500.2500, L100.0500 ####[facility] [address] [place], [address] Hematocrit (Bld) [Volume fraction] 34.7 % Low 37-47 [facility] Comment on above: Performed By: #### L 500.2500, L100.0500 ####[facility] [address] [place], [address] Hemoglobin (Bld) [Mass/Vol] 11.8 g/dL Low 12.0-15.0 [facility] Comment on above: Performed By: #### L 500.2500, L100.0500 ####[facility] [address] [place], [address] MCH (RBC) [Entitic mass] 28.3 pg Normal 27.0-32.0 [facility] Comment on above: Performed By: #### L 500.2500, L100.0500 ####[facility] [address] [place], [address] MCHC (RBC) [Mass/Vol] 34.0 g/dL Normal 32-36 [facility] Comment on above: Performed By: #### L 500.2500, L100.0500 ####[facility] [address] [place], [address] MCV (RBC) [Entitic vol] 83.2 fL Normal 81-99 [facility] Comment on above: Performed By: #### L 500.2500, L100.0500 ####[facility] [address] [place], [address] Platelet mean volume (Bld) [Entitic vol] 9.1 fL Normal 6.2-12.0 [facility] Comment on above: Performed By: #### L 500.2500, L100.0500 ####[facility] [address] [place], [address] Platelets (Bld) [#/Vol] 296 10*3/uL Normal 150-450 [facility] Comment on above: Performed By: #### L 500.2500, L100.0500 ####[facility] [address] [place], [address] RBC (Bld) [#/Vol] 4.17 10*6/uL Low 4.2-5.4 [facility] Comment on above: Performed By: #### L 500.2500, L100.0500 ####[facility] [address] [place], [address] RDW SD 38.9 fl Normal 35.1-43.9 [facility] Comment on above: Performed By: #### L 500.2500, L100.0500 ####[facility] [address] [place], [address] WBC (Bld) [#/Vol] 7.3 10*3/uL Normal 4.4-11.0 [facility] Comment on above: Performed By: #### L 500.2500, L100.0500 ####[facility] [address] [place], [address] Discharge Instructionon 12-3 Discharge Instruction Normal [facility] Urine Cultureon 03-21-2024 URC Normal [facility] Comment on above: Performed By: #### M 100.2200 ####[facility] [address] [place], [address] CBC W/Diff, Automatedon 02-21 PATH REV Reviewed Normal [facility] Comment on above: Result Comment: Neut rophilic leukocytosis.Clinical correlation necessary.Ajay Ann M.D. 03/20/24 AMENDED REPORT 03/20/24 1531 PATH REV previously reported as: July Performed By: #### L 100.0100, L500.4050 ####[facility] [address] [place], [address] Absolute Lymph 2.65 X10 3/uL Normal 0.83-4.51 [facility] Comment on above: Performed By: #### L 100.0100, L500.4050 ####[facility] [address] [place], [address] Absolute Neut 6.5 X10 3/uL Normal 2.0-7.7 [facility] Comment on above: Performed By: #### L 100.0100, L500.4050 ####[facility] [address] [place], [address] Basophils/100 WBC (Bld) 0.4 % Normal 0-1 [facility] Comment on above: Performed By: #### L 100.0100, L500.4050 ####[facility] [address] [place], [address] Eosinophils/100 WBC (Bld) 1.4 % Normal 0-5 [facility] Comment on above: Performed By: #### L 100.0100, L500.4050 ####[facility] [address] [place], [address] Erythrocyte distribution width (RBC) [Ratio] 12.7 % Normal 11.6-14.6 [facility] Comment on above: Performed By: #### L 100.0100, L500.4050 ####[facility] [address] [place], [address] Hematocrit (Bld) [Volume fraction] 35.2 % Low 37-47 [facility] Comment on above: Performed By: #### L 100.0100, L500.4050 ####[facility] [address] [place], [address] Hemoglobin (Bld) [Mass/Vol] 11.8 g/dL Low 12.0-15.0 [facility] Comment on above: Performed By: #### L 100.0100, L500.4050 ####[facility] [address] [place], [address] IG% 0.400 Normal 0.0-0.9 [facility] Comment on above: Result Comment: IG% - Immature Granulocytes (promyelocytes, myelocytes andmetamyelocytes) > 1% indicates that a LEFT SHIFT is Present. Performed By: #### L 100.0100, L500.4050 ####[facility] [address] [place], [address] Lymphocytes/100 WBC (Bld) 26.1 % Normal 19-41 [facility] Comment on above: Performed By: #### L 100.0100, L500.4050 ####[facility] [address] [place], [address] MCH (RBC) [Entitic mass] 27.8 pg Normal 27.0-32.0 [facility] Comment on above: Performed By: #### L 100.0100, L500.4050 ####[facility] [address] [place], [address] MCHC (RBC) [Mass/Vol] 33.5 g/dL Normal 32-36 [facility] Comment on above: Performed By: #### L 100.0100, L500.4050 ####[facility] [address] [place], [address] MCV (RBC) [Entitic vol] 82.8 fL Normal 81-99 [facility] Comment on above: Performed By: #### L 100.0100, L500.4050 ####[facility] [address] [place], [address] Monocytes/100 WBC (Bld) 8.3 % Normal 0-10 [facility] Comment on above: Performed By: #### L 100.0100, L500.4050 ####[facility] [address] [place], [address] Neutrophils/100 WBC (Bld) 63.4 % Normal 47-70 [facility] Comment on above: Performed By: #### L 100.0100, L500.4050 ####[facility] [address] [place], [address] Nucleated RBC (Bld) [#/Vol] 0 10*3/uL Normal 0-5 [facility] Comment on above: Performed By: #### L 100.0100, L500.4050 ####[facility] [address] [place], [address] Platelet mean volume (Bld) [Entitic vol] 9.2 fL Normal 6.2-12.0 [facility] Comment on above: Performed By: #### L 100.0100, L500.4050 ####[facility] [address] [place], [address] Platelets (Bld) [#/Vol] 289 10*3/uL Normal 150-450 [facility] Comment on above: Performed By: #### L 100.0100, L500.4050 ####[facility] [address] [place], [address] RBC (Bld) [#/Vol] 4.25 10*6/uL Normal 4.2-5.4 [facility] Comment on above: Performed By: #### L 100.0100, L500.4050 ####[facility] [address] [place], [address] RDW SD 38.4 fl Normal 35.1-43.9 [facility] Comment on above: Performed By: #### L 100.0100, L500.4050 ####[facility] [address] [place], [address] WBC (Bld) [#/Vol] 10.2 10*3/uL Normal 4.4-11.0 [facility] Comment on above: Performed By: #### L 100.0100, L500.4050 ####[facility] [address] [place], [address] Comprehensive Metabolic Prof [facility] 03-20-2024 Albumin [Mass/Vol] 3.1 g/dL Low 3.2-5.0 [facility] Comment on above: Performed By: #### L 100.0100, L500.4050 ####[facility] [address] [place], [address] Albumin/Globulin [Mass ratio] 0.8 {ratio} Low 0.9-2.4 [facility] Comment on above: Performed By: #### L 100.0100, L500.4050 ####[facility] [address] [place], [address] ALK P 54 U/L Normal 45-117 [facility] Comment on above: Performed By: #### L 100.0100, L500.4050 ####[facility] [address] [place], [address] ALT [Catalytic activity/Vol] 11 U/L Low 13-56 [facility] Comment on above: Performed By: #### L 100.0100, L500.4050 ####[facility] [address] [place], [address] AST [Catalytic activity/Vol] 10 U/L Low 15-37 [facility] Comment on above: Performed By: #### L 100.0100, L500.4050 ####[facility] [address] [place], [address] Bilirubin [Mass/Vol] 0.40 mg/dL Normal 0.20-1.00 [facility] Comment on above: Result Comment: For patients on eltrombopag therapy, use of Dimension [place] TBIL is not recommended. Performed By: #### L 100.0100, L500.4050 ####[facility] [address] [place], [address] BUN/CRE 13.0 RATIO Normal 10-20 [facility] Comment on above: Performed By: #### L 100.0100, L500.4050 ####[facility] [address] [place], [address] CA,Total 10.1 mg/dL Normal 8.5-10.1 [facility] Comment on above: Performed By: #### L 100.0100, L500.4050 ####[facility] [address] [place], [address] Chloride [Moles/Vol] 112 mmol/L High 98-107 [facility] Comment on above: Performed By: #### L 100.0100, L500.4050 ####[facility] [address] [place], [address] CO2 [Moles/Vol] 26.0 mmol/L Normal 21.0-32.0 [facility] Comment on above: Performed By: #### L 100.0100, L500.4050 ####[facility] [address] [place], [address] Creatinine [Mass/Vol] 0.77 mg/dL Normal 0.55-1.02 [facility] Comment on above: Result Comment: The validity of the calculated GFR GFRAA in patients over70 years has not been determined. Clinical correlation isessential. Performed By: #### L 100.0100, L500.4050 ####[facility] [address] [place], [address] ECRCL 43.58 ml/min Normal [facility] Comment on above: Performed By: #### L 100.0100, L500.4050 ####[facility] [address] [place], [address] EST GFR - AA 93 mL/min Normal >60 [facility] Comment on above: Result Comment: Afri can Moz[place]ican GFR Calc Performed By: #### L 100.0100, L500.4050 ####[facility] [address] [place], [address] GAP 1 Low 5-15 [facility] Comment on above: Performed By: #### L 100.0100, L500.4050 ####[facility] [address] [place], [address] GFR/1.73 sq M.predicted among non-blacks MDRD (S/P/Bld) [Vol rate/Area] 77 mL/min/{1.73_m2} Normal >60 [facility] Comment on above: Result Comment: Non- GFR Calc Performed By: #### L 100.0100, L500.4050 ####[facility] [address] [place], [address] Globulin (S) [Mass/Vol] 3.9 g/dL Normal 2.2-4.2 [facility] Comment on above: Performed By: #### L 100.0100, L500.4050 ####[facility] [address] [place], [address] Glucose [Mass/Vol] 109 mg/dL High 74-106 [facility] Comment on above: Result Comment: Fast ing Glucose result from 100 to 125 mg/dLsuggests IMPAIRED HOMEOSTASIS per A.D.A. criteria. Performed By: #### L 100.0100, L500.4050 ####[facility] [address] [place], [address] Potassium [Moles/Vol] 3.8 mmol/L Normal 3.5-5.1 [facility] Comment on above: Performed By: #### L 100.0100, L500.4050 ####[facility] [address] [place], [address] Sodium [Moles/Vol] 139 mmol/L Normal 136-145 [facility] Comment on above: Performed By: #### L 100.0100, L500.4050 ####[facility] [address] [place], [address] T PROT 7.0 g/dL Normal 6.4-8.2 [facility] Comment on above: Performed By: #### L 100.0100, L500.4050 ####[facility] [address] [place], [address] Urea nitrogen [Mass/Vol] 10 mg/dL Normal 7-18 [facility] Comment on above: Performed By: #### L 100.0100, L500.4050 ####[facility] [address] [place], [address] Consultation - Infectious Dx on 03-20-2024 Consultation - Infectious Dx Normal [facility] CBC W/Diff, Automatedon - Absolute Lymph 2.73 X10 3/uL Normal 0.83-4.51 [facility] Comment on above: Performed By: #### L 500.4050, L100.0100 ####[facility] [address] [place], [address] Absolute Neut 6.5 X10 3/uL Normal 2.0-7.7 [facility] Comment on above: Performed By: #### L 500.4050, L100.0100 ####[facility] [address] [place], [address] Basophils/100 WBC (Bld) 0.3 % Normal 0-1 [facility] Comment on above: Performed By: #### L 500.4050, L100.0100 ####[facility] [address] [place], [address] Eosinophils/100 WBC (Bld) 0.9 % Normal 0-5 [facility] Comment on above: Performed By: #### L 500.4050, L100.0100 ####[facility] [address] [place], [address] Erythrocyte distribution width (RBC) [Ratio] 12.8 % Normal 11.6-14.6 [facility] Comment on above: Performed By: #### L 500.4050, L100.0100 ####[facility] [address] [place], [address] Hematocrit (Bld) [Volume fraction] 37.5 % Normal 37-47 [facility] Comment on above: Performed By: #### L 500.4050, L100.0100 ####[facility] [address] [place], [address] Hemoglobin (Bld) [Mass/Vol] 12.4 g/dL Normal 12.0-15.0 [facility] Comment on above: Performed By: #### L 500.4050, L100.0100 ####[facility] [address] [place], [address] IG% 0.400 Normal 0.0-0.9 [facility] Comment on above: Result Comment: IG% - Immature Granulocytes (promyelocytes, myelocytes andmetamyelocytes) > 1% indicates that a LEFT SHIFT is Present. Performed By: #### L 500.4050, L100.0100 ####[facility] [address] [place], [address] Lymphocytes/100 WBC (Bld) 27.2 % Normal 19-41 [facility] Comment on above: Performed By: #### L 500.4050, L100.0100 ####[facility] [address] [place], [address] MCH (RBC) [Entitic mass] 27.8 pg Normal 27.0-32.0 [facility] Comment on above: Performed By: #### L 500.4050, L100.0100 ####[facility] [address] [place], [address] MCHC (RBC) [Mass/Vol] 33.1 g/dL Normal 32-36 [facility] Comment on above: Performed By: #### L 500.4050, L100.0100 ####[facility] [address] [place], [address] MCV (RBC) [Entitic vol] 84.1 fL Normal 81-99 [facility] Comment on above: Performed By: #### L 500.4050, L100.0100 ####[facility] [address] [place], [address] Monocytes/100 WBC (Bld) 7.0 % Normal 0-10 [facility] Comment on above: Performed By: #### L 500.4050, L100.0100 ####[facility] [address] [place], [address] Neutrophils/100 WBC (Bld) 64.2 % Normal 47-70 [facility] Comment on above: Performed By: #### L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 Glomerular Filtration Rate [...] Performed By: #### 5 7021-8, 4537-7 #### [facility] CLIA [id number] [address] [place] [address] [place] Glucose [Mass/Vol] 105 mg/dL High 70-100 [facility] Comment on above: Order Comment: Anny hong Type: BLOOD SPECIMEN Ordering Facility: [facility] Address: [address] [place] [address] Result Comment: The [place] Diabetes Association (ADA) provides guidance for cutoff [...] Standards of Medical Care in Diabetes 2016, [place] [employer]. Diabetes Care. 2016.39(Suppl 1). Results may be falsely elevated after the administration of Sulfapyridine. Results may be falsely depressed after the administration of Sulfasalazine. Performed By: #### 5 7021-8, 4537-7 #### [facility] CLIA [id number] [address] [place] [address] [place] Potassium [Moles/Vol] 4.0 mmol/L Normal 3.5-5.1 [facility] Comment on above: Order Comment: Anny hong Type: BLOOD SPECIMEN Ordering Facility: [facility] Address: [address] [place] [address] Performed By: #### 5 7021-8, 453-7 #### [facility] CLIA [id number] [address] [place] [address] [place] Protein [Mass/Vol] 6.9 g/dL Normal 6.0-8.5 [facility] Comment on above: Order Comment: Anny hong Type: BLOOD SPECIMEN Ordering Facility: [facility] Address: [address] [place] [address] Performed By: #### 5 7021-8, 4537-7 #### [facility] CLIA [id number] [address] [place] [address] [place] Sodium [Moles/Vol] 141 mmol/L Normal 136-145 [facility] Comment on above: Order Comment: Anny hong Type: BLOOD SPECIMEN Ordering Facility: [facility] Address: [address] [place] [address] Performed By: #### 5 7021-8, 4537-7 #### [facility] CLIA [id number] [address] [place] [address] [place] Urea nitrogen [Mass/Vol] 13 mg/dL Normal 7-26 [facility] Comment on above: Order Comment: Speci men Type: BLOOD SPECIMEN Ordering Facility: [facility] Address: [address] [place] [address] Performed By: #### 5 7021-8, 4537-7 #### [facility] CLIA [id number] [address] [place] [address] [place] HISTORY PHYSICALon HISTORY PHYSICAL HNO ID: [id number] Author: RIANNA PATINO MD Service: Hospital Medicine [...] who presents as a direct admission from [facility] with a diagnosis of acute osteomyelitis [...] No edema. (more content not included)... Normal [facility] Lactate (Bld) [Moles/Vol]on 01-27-2024 Lactate [Moles/Vol] 1.0 mmol/L Normal 0.4-2.0 [facility] Comment on above: Order Comment: Speci gely Type: BLOOD SPECIMEN Ordering Facility: [facility] Address: [address] [place], [place] [address] Performed By: #### 5 7021-8, 4537-7 #### [facility] CLIA [id number] [address] [place] [address] [place] Magnesium SerPl-mCncon 01-26 Magnesium [Mass/Vol] 1.9 mg/dL Normal 1.6-2.6 [facility] Comment on above: Order Comment: Anny hong Type: BLOOD SPECIMEN Ordering Facility: [facility] Address: [address] [place] [address] Performed By: #### 5 7021-8, 4537-7 #### [facility] CLIA [id number] [address] [place], [place] [address] [place] 12 Lead EKGon 01-26-2024 12 Lead EKG Normal [facility] Basic Metabolic Profile (BMP )on 01-26-2024 BUN/CRE 21.7 RATIO High 10-20 [facility] Comment on above: Order Comment: 'TROP ' Serial specimen #1, #2 or #3: 1 Performed By: #### L 500.2500, L100.0100, L501.4020 ####[facility] [address] [place], [address] [place],Total 10.5 mg/dL High 8.5-10.1 [facility] Comment on above: Order Comment: 'TROP ' Serial specimen #1, #2 or #3: 1 Performed By: #### L 500.2500, L100.0100, L501.4020 ####[facility] [address] [place], [address] Chloride [Moles/Vol] 107 mmol/L Normal 98-107 [facility] Comment on above: Order Comment: 'TROP ' Serial specimen #1, #2 or #3: 1 Performed By: #### L 500.2500, L100.0100, L501.4020 ####[facility] [address] [place], [address] CO2 [Moles/Vol] 22.0 mmol/L Normal 21.0-32.0 [facility] Comment on above: Order Comment: 'TROP ' Serial specimen #1, #2 or #3: 1 Performed By: #### L 500.2500, L100.0100, L501.4020 ####[facility] [address] [place], [address] Creatinine [Mass/Vol] 0.83 mg/dL Normal 0.55-1.02 [facility] Comment on above: Order Comment: 'TROP ' Serial specimen #1, #2 or #3: 1 Result Comment: The validity of the calculated GFR GFRAA in patients over70 years has not been determined. Clinical correlation isessential. Performed By: #### L 500.2500, L100.0100, L501.4020 ####[facility] [address] [place], [address] EST GFR - AA 85 mL/min Normal >60 [facility] Comment on above: Order Comment: 'TROP ' Serial specimen #1, #2 or #3: 1 Result Comment: Afri can [place] GFR Calc Performed By: #### L 500.2500, L100.0100, L501.4020 ####[facility] [address] [place], [address] GAP 8 Normal 5-15 [facility] Comment on above: Order Comment: 'TROP ' Serial specimen #1, #2 or #3: 1 Performed By: #### L 500.2500, L100.0100, L501.4020 ####[facility] [address] [place], [address] GFR/1.73 sq M.predicted among non-blacks MDRD (S/P/Bld) [Vol rate/Area] 70 mL/min/{1.73_m2} Normal >60 [facility] Comment on above: Order Comment: 'TROP ' Serial specimen #1, #2 or #3: 1 Result Comment: Non- GFR Calc Performed By: #### L 500.2500, L100.0100, L501.4020 ####[facility] [address] [place], [address] Glucose [Mass/Vol] 108 mg/dL High 74-106 [facility] Comment on above: Order Comment: 'TROP ' Serial specimen #1, #2 or #3: 1 Result Comment: Fast ing Glucose result from 100 to 125 mg/dLsuggests IMPAIRED HOMEOSTASIS per A.D.A. criteria. Performed By: #### L 500.2500, L100.0100, L501.4020 ####[facility] [address] [place], [address] Potassium [Moles/Vol] 4.0 mmol/L Normal 3.5-5.1 [facility] Comment on above: Order Comment: 'TROP ' Serial specimen #1, #2 or #3: 1 Performed By: #### L 500.2500, L100.0100, L501.4020 ####[facility] [address] [place], [address] Sodium [Moles/Vol] 136 mmol/L Normal 136-145 [facility] Comment on above: Order Comment: 'TROP ' Serial specimen #1, #2 or #3: 1 Performed By: #### L 500.2500, L100.0100, L501.4020 ####[facility] [address] [place], [address] Urea nitrogen [Mass/Vol] 18 mg/dL Normal 7-18 [facility] Comment on above: Order Comment: 'TROP ' Serial specimen #1, #2 or #3: 1 Performed By: #### L 500.2500, L100.0100, L501.4020 ####[facility] [address] [place], [address] Brain/Head without Contrasto n --2023 Brain/Head without Contrast Normal [facility] CBC W/Diff, Automatedon 11-0 -2023 Absolute Lymph 2.70 X10 3/uL Normal 0.83-4.51 [facility] Comment on above: Performed By: #### L 500.2500, L100.0100, L501.4020 ####[facility] [address] [place], [address] Absolute Neut 12.8 X10 3/uL High 2.0-7.7 [facility] Comment on above: Performed By: #### L 500.2500, L100.0100, L501.4020 ####[facility] [address] [place], [address] Basophils/100 WBC (Bld) 0.3 % Normal 0-1 [facility] Comment on above: Performed By: #### L 500.2500, L100.0100, L501.4020 ####[facility] [address] [place], [address] Eosinophils/100 WBC (Bld) 0.6 % Normal 0-5 [facility] Comment on above: Performed By: #### L 500.2500, L100.0100, L501.4020 ####[facility] [address] [place], [address] Erythrocyte distribution width (RBC) [Ratio] 12.8 % Normal 11.6-14.6 [facility] Comment on above: Performed By: #### L 500.2500, L100.0100, L501.4020 ####[facility] [address] [place], [address] Hematocrit (Bld) [Volume fraction] 39.7 % Normal 37-47 [facility] Comment on above: Performed By: #### L 500.2500, L100.0100, L501.4020 ####[facility] [address] [place], [address] Hemoglobin (Bld) [Mass/Vol] 13.6 g/dL Normal 12.0-15.0 [facility] Comment on above: Performed By: #### L 500.2500, L100.0100, L501.4020 ####[facility] [address] [place], [address] IG% 0.500 Normal 0.0-0.9 [facility] Comment on above: Result Comment: IG% - Immature Granulocytes (promyelocytes, myelocytes andmetamyelocytes) > 1% indicates that a LEFT SHIFT is Present. Performed By: #### L 500.2500, L100.0100, L501.4020 ####[facility] [address] [place], [address] Lymphocytes/100 WBC (Bld) 15.9 % Low 19-41 [facility] Comment on above: Performed By: #### L 500.2500, L100.0100, L501.4020 ####[facility] [address] [place], [address] MCH (RBC) [Entitic mass] 28.4 pg Normal 27.0-32.0 [facility] Comment on above: Performed By: #### L 500.2500, L100.0100, L501.4020 ####[facility] [address] [place], [address] MCHC (RBC) [Mass/Vol] 34.3 g/dL Normal 32-36 [facility] Comment on above: Performed By: #### L 500.2500, L100.0100, L501.4020 ####[facility] [address] [place], [address] MCV (RBC) [Entitic vol] 82.9 fL Normal 81-99 [facility] Comment on above: Performed By: #### L 500.2500, L100.0100, L501.4020 ####[facility] [address] [place], [address] Monocytes/100 WBC (Bld) 7.4 % Normal 0-10 [facility] Comment on above: Performed By: #### L 500.2500, L100.0100, L501.4020 ####[facility] [address] [place], [address] Neutrophils/100 WBC (Bld) 75.3 % High 47-70 [facility] Comment on above: Performed By: #### L 500.2500, L100.0100, L501.4020 ####[facility] [address] [place], [address] Nucleated RBC (Bld) [#/Vol] 0 10*3/uL Normal 0-5 [facility] Comment on above: Performed By: #### L 500.2500, L100.0100, L501.4020 ####[facility] [address] [place], [address] Platelet mean volume (Bld) [Entitic vol] 8.9 fL Normal 6.2-12.0 [facility] Comment on above: Performed By: #### L 500.2500, L100.0100, L501.4020 ####[facility] [address] [place], [address] Platelets (Bld) [#/Vol] 334 10*3/uL Normal 150-450 [facility] Comment on above: Performed By: #### L 500.2500, L100.0100, L501.4020 ####[facility] [address] [place], [address] RBC (Bld) [#/Vol] 4.79 10*6/uL Normal 4.2-5.4 [facility] Comment on above: Performed By: #### L 500.2500, L100.0100, L501.4020 ####[facility] [address] [place], [address] RDW SD 38.7 fl Normal 35.1-43.9 [facility] Comment on above: Performed By: #### L 500.2500, L100.0100, L501.4020 ####[facility] [address] [place], [address] WBC (Bld) [#/Vol] 17.0 10*3/uL High 4.4-11.0 [facility] Comment on above: Performed By: #### L 500.2500, L100.0100, L501.4020 ####[facility] [address] [place], [address] Chest 1 View (Portable)on Chest 1 View (Portable) Normal [facility] Emergency Department Summary on 01-26-2024 Emergency Department Summary Normal [facility] L501.4020on 01-26-2024 TROPONIN-I HS 6 pg/mL Normal 3.0-54.0 [facility] Comment on above: Order Comment: 'TROP ' Serial specimen #1, #2 or #3: 1 Result Comment: Cora reece Note: New Test Units and Gender Specific Reference Ranges. For more information see Policy Stat Procedure [place] High Sensitivity Troponin (TNIH) and attachments. Performed By: #### L 500.2500, L100.0100, L501.4020 ####[facility] [address] [place], [address] Lactic Acidon 01-26-2024 Lactate [Moles/Vol] 1.1 mmol/L Normal 0.4-1.9 [facility] Comment on above: Order Comment: Y Performed By: #### L 503.6005 ####[facility] [address] [facility] [address] Spine Lumbar W/WO Contraston 01-26-2024 Spine Lumbar W/WO Contrast Normal [facility] Spine Lumbar without Contras ton 01-26-2024 Spine Lumbar without Contrast Normal [facility] Urinalysis, Completeon 01-25 BACTERIA 4+ /hpf Normal None Seen [facility] Comment on above: Order Comment: Micro scopic field is filled. Other elements may beobscured.NUCLEAR TEST TECHNICIAN TO SPECIFY Performed By: #### L 400.0001 ####[facility] [address] [facility] [address] WBC >100 SEEN Normal 0-5 [facility] Comment on above: Order Comment: Micro scopic field is filled. Other elements may beobscured.NUCLEAR TEST TECHNICIAN TO SPECIFY Performed By: #### L 400.0001 ####[facility] [address] [facility] [address] BILIRUBIN URINE Negative Normal Negative [facility] Comment on above: Order Comment: Micro scopic field is filled. Other elements may beobscured.NUCLEAR TEST TECHNICIAN TO SPECIFY Performed By: #### L 400.0001 ####[facility] [address] [place], [address] Clarity (U) Cloudy Normal Clear [facility] Comment on above: Order Comment: Micro scopic field is filled. Other elements may beobscured.NUCLEAR TEST TECHNICIAN TO SPECIFY Performed By: #### L 400.0001 ####[facility] [address] [place], [address] Color (U) Yellow Normal Yellow [facility] Comment on above: Order Comment: Micro scopic field is filled. Other elements may beobscured.NUCLEAR TEST TECHNICIAN TO SPECIFY Performed By: #### L 400.0001 ####[facility] [address] [place] [address] GLUCOSE, UR Normal Normal Normal [facility] Comment on above: Order Comment: Micro scopic field is filled. Other elements may beobscured.NUCLEAR TEST TECHNICIAN TO SPECIFY Performed By: #### L 400.0001 ####[facility] [address] [place] [address] KETONE UR Negative Normal Negative [facility] Comment on above: Order Comment: Micro scopic field is filled. Other elements may beobscured.NUCLEAR TEST TECHNICIAN TO SPECIFY Performed By: #### L 400.0001 ####[facility] [address] [place], [place], [phone] LEUK ESTERASE 500 /ul Abnormal Negative [facility] Comment on above: Order Comment: Micro scopic field is filled. Other elements may beobscured.NUCLEAR TEST TECHNICIAN TO SPECIFY Performed By: #### L 400.0001 ####[facility] [address] [place], [place], [phone] Nitrite Ql (U) Positive Abnormal Negative [facility] Comment on above: Order Comment: Micro scopic field is filled. Other elements may beobscured.NUCLEAR TEST TECHNICIAN TO SPECIFY Performed By: #### L 400.0001 ####[facility] [address] [place], [address] OCCULT BLOOD-UR 150 /ul Abnormal Negative [facility] Comment on above: Order Comment: Micro scopic field is filled. Other elements may beobscured.NUCLEAR TEST TECHNICIAN TO SPECIFY Performed By: #### L 400.0001 ####[facility] [address] [place], [address] pH UR 7.0 Normal 5.0 - 8.0 [facility] Comment on above: Order Comment: Micro scopic field is filled. Other elements may beobscured.NUCLEAR TEST TECHNICIAN TO SPECIFY Performed By: #### L 400.0001 ####[facility] [address] [place], [address] PROT DIPSTX 100 mg/dl Abnormal Negative [facility] Comment on above: Order Comment: Micro scopic field is filled. Other elements may beobscured.NUCLEAR TEST TECHNICIAN TO SPECIFY Performed By: #### L 400.0001 ####[facility] [address] [place], [address] SP.GR. DIPSTX 1.010 Normal 1.002-1.03 0 [facility] Comment on above: Order Comment: Micro scopic field is filled. Other elements may beobscured.NUCLEAR TEST TECHNICIAN TO SPECIFY Performed By: #### L 400.0001 ####[facility] [address] [place], [address] UROBILI Normal Normal Normal [facility] Comment on above: Order Comment: Micro scopic field is filled. Other elements may beobscured.NUCLEAR TEST TECHNICIAN TO SPECIFY Performed By: #### L 400.0001 ####[facility] [address] [place], [address] EPI,SQUAMOUS 0 SEEN Normal 5-10 [facility] Comment on above: Order Comment: Micro scopic field is filled. Other elements may beobscured.NUCLEAR TEST TECHNICIAN TO SPECIFY Performed By: #### L 400.0001 ####[facility] [address] [place], [address] Mucus Ql (Urine sed) 0 SEEN Normal [facility] Comment on above: Order Comment: Micro scopic field is filled. Other elements may beobscured.NUCLEAR TEST TECHNICIAN TO SPECIFY Performed By: #### L 400.0001 ####[facility] [address] [place], [address] RBC 0 SEEN Normal 0-5 [facility] Comment on above: Order Comment: Micro scopic field is filled. Other elements may beobscured.NUCLEAR TEST TECHNICIAN TO SPECIFY Performed By: #### L 400.0001 ####[facility] [address] [place], [address] Re-Evaluation - PT (1)on Re-Evaluation - PT (1) Normal [facility] SP/HP.SPREEVon 11-26-2023 SP/HP.SPREEV Normal [facility] Re-Evaluation - PT (1)on Re-Evaluation - PT (1) Normal [facility] .Auto Diffon 09-09-2023 Basophil, Absolute 0.1 10 3/mcL Normal 0.0-0.2 [facility]ly [facility], 1928–[facility] ([place]) Comment on above: Performed By: #### E SR, CBC, ADJULISSA, ANEU #### [address] [address] Basophils/100 WBC (Bld) 0.9 % Normal 0.0-2.5 [facility] ([place]) Comment on above: Performed By: #### E SR, CBC, ADIFF, ANEU #### [address] [address] Eosinophil, Absolute 0.1 10 3/mcL Normal 0.0-0.4 [facility] ([place] Comment on above: Performed By: #### E SR, CBC, LORELEI, ANEU #### [address] [address] Eosinophils/100 WBC (Bld) 0.8 % Normal 0.0-7.0 [facility] ([place] Comment on above: Performed By: #### E SR, CBC, ADIFF, ANEU #### [address] [address] Lymphocyte, Absolute 2.5 10 3/mcL Normal 0.8-3.9 [facility] ([place] Comment on above: Performed By: #### E SR, CBC, ADIFF, ANEU #### [address] [address] Lymphocytes/100 WBC (Bld) 22.8 % Normal 10.0-50.0 [facility] ([place] Comment on above: Performed By: #### E SR, CBC, ADIFF, ANEU #### [address] [address] Monocyte, Absolute 0.7 10 3/mcL Normal 0.2-1.0 [facility], 1928–[facility] ([place] Comment on above: Performed By: #### E SR, CBC, ADIFF, ANEU #### [address] [address] Monocytes/100 WBC (Bld) 6.0 % Normal 1.7-13.0 [facility] ([place] Comment on above: Performed By: #### E SR, CBC, ADIFF, ANEU #### [address] [address] Neutrophils/100 WBC (Bld) 69.5 % Normal 37.0-80.0 [facility] ([place] Comment on above: Performed By: #### E SR, CBC, ADIFF, ANEU #### [address] [address] .NEUABSon 09-09-2023 Neutrophil, Absolute 7.8 10 3/mcL High 2.9-6.2 [facility] ([place] Comment on above: Performed By: #### E SR, CBC, ADIFF, ANEU #### [address] [address] CBCon 09-09-2023 Erythrocyte distribution width (RBC) [Ratio] 17.4 % High 11.5-14.5 [facility] ([place] Comment on above: Performed By: #### E SR, CBC, ADIFF, ANEU #### [address] [address] Hematocrit (Bld) [Volume fraction] 40.1 % Normal 37.0-47.0 [facility] ([place] Comment on above: Performed By: #### Ysabel SR, CBCLORELEI, ANEU #### [address] [address] Hgb 13.1 G/dL Normal 12.0-16.0 [facility] ([place] Comment on above: Performed By: #### E SR, CBC, LORELEI, ANEU #### [address] [address] MCH (RBC) [Entitic mass] 25.6 pg Low 27.0-31.2 [facility] ([place] Comment on above: Performed By: #### E SR, CBC, LORELEI, ANEU #### [address] [address] MCHC 32.6 G/dL Low 33.0-37.0 [facility] ([place] Comment on above: Performed By: #### E SR, CBC, ADJULISSA, ANEU #### [address] [address] MCV (RBC) [Entitic vol] 78.4 fL Low 80.0-94.0 [facility] ([place] Comment on above: Performed By: #### E SR, CBC, LORELEI, ANEU #### [address] [address] Platelet 350 10 3/mcL Normal 130-400 [facility] ([place] Comment on above: Performed By: #### E SR, CBC, ADJULISSA, ANEU #### [address] [address] Platelet mean volume (Bld) [Entitic vol] 7.8 fL Normal 7.4-10.4 [facility] ([place] Comment on above: Performed By: #### E SR, CBC, ADIFF, ANEU #### [address] [address] RBC 5.11 10 6/mcL Normal 4.20-5.40 [facility] ([place]) Comment on above: Performed By: #### E SR, CBC, ADIFF, ANEU #### [facility] [address] [place], [place] [address] WBC 11.1 10 3/mcL High 4.6-10.8 [facility] ([place]) Comment on above: Performed By: #### E SR, CBC, ADIFF, ANEU #### [facility] [address] [place], [place] [address] ESRon 09-09-2023 Erythrocyte Sed Rate 34 mm/hr High 0-30 [facility], [facility] ([place]) Comment on above: Performed By: #### E SR, CBC, ADIFF, ANEU #### [place] [address] [place], [place] [address] LABORATORYOrdered By: SYSTEM SYSTEM on 09-09-2023 Basophil, [...] Man Heme SS SP/HP.SP.Bhaskar 09-03-2023 SP/HP.SP.EV Normal [facility] Inital Evaluation (1) - PTon 08-27-2023 Inital Evaluation (1) - PT Normal [facility] Basic Metabolic Profile (BMP )on 07-27-2023 BUN/CRE 21.7 RATIO High 10-20 [facility] Comment on above: Performed By: #### L 501.8820, L101.9900, L100.0500, L500.2500 ####[facility] [address] [place], [address] CA,Total 9.8 mg/dL Normal 8.5-10.1 [facility] Comment on above: Performed By: #### L 501.8820, L101.9900, L100.0500, L500.2500 ####[facility] [address] [place], [address] Chloride [Moles/Vol] 109 mmol/L High 98-107 [facility] Comment on above: Performed By: #### L 501.8820, L101.9900, L100.0500, L500.2500 ####[facility] [address] [place], [address] CO2 [Moles/Vol] 27.0 mmol/L Normal 21.0-32.0 [facility] Comment on above: Performed By: #### L 501.8820, L101.9900, L100.0500, L500.2500 ####[facility] [address] [place], [address] Creatinine [Mass/Vol] 0.88 mg/dL Normal 0.55-1.02 [facility] Comment on above: Result Comment: The validity of the calculated GFR GFRAA in patients over70 years has not been determined. Clinical correlation isessential. Performed By: #### L 501.8820, L101.9900, L100.0500, L500.2500 ####[facility] [address] [place], [address] EST GFR - AA 80 mL/min Normal >60 [facility] Comment on above: Result Comment: Afri can Moz[place]ican GFR Calc Performed By: #### L 501.8820, L101.9900, L100.0500, L500.2500 ####[facility] [address] [place], [address] GAP 3 Low 5-15 [facility] Comment on above: Performed By: #### L 501.8820, L101.9900, L100.0500, L500.2500 ####[facility] [address] [place], [address] GFR/1.73 sq M.predicted among non-blacks MDRD (S/P/Bld) [Vol rate/Area] 66 mL/min/{1.73_m2} Normal >60 [facility] Comment on above: Result Comment: Non- GFR Calc Performed By: #### L 501.8820, L101.9900, L100.0500, L500.2500 ####[facility] [address] [place], [address] Glucose [Mass/Vol] 113 mg/dL High 74-106 [facility] Comment on above: Result Comment: Fast ing Glucose result from 100 to 125 mg/dLsuggests IMPAIRED HOMEOSTASIS per A.D.A. criteria. Performed By: #### L 501.8820, L101.9900, L100.0500, L500.2500 ####[facility] [address] [place], [address] Potassium [Moles/Vol] 3.9 mmol/L Normal 3.5-5.1 [facility] Comment on above: Performed By: #### L 501.8820, L101.9900, L100.0500, L500.2500 ####[facility] [address] [place], [address] Sodium [Moles/Vol] 139 mmol/L Normal 136-145 [facility] Comment on above: Performed By: #### L 501.8820, L101.9900, L100.0500, L500.2500 ####[facility] [address] [place], [address] Urea nitrogen [Mass/Vol] 19 mg/dL High 7-18 [facility] Comment on above: Performed By: #### L 501.8820, L101.9900, L100.0500, L500.2500 ####[facility] [address] [place], [address] Basophil percentageOrdered B y: Sulma Alexander on 07-27-2023 Chloride [Moles/Vol] 109 mmol/L 98-107 [facility] Glucose [Mass/Vol] 113 mg/dL 74-106 [facility] Comment on above: Fasting Glucose resu lt from 100 to 125 mg/dL suggests IMPAIRED HOMEOSTASIS per A.D.A. criteria. Hemoglobin (Bld) [Mass/Vol] 10.1 g/dL 12.0-15.0 [facility] Potassium [Moles/Vol] 3.9 mmol/L 3.5-5.1 [facility] Sodium [Moles/Vol] 139 mmol/L 136-145 [facility] WBC (Bld) [#/Vol] 10.1 10*3/uL 4.4-11.0 [facility] CBC-Complete Blood Cnt No Di ffon 07-27-2023 Erythrocyte distribution width (RBC) [Ratio] 15.9 % High 11.6-14.6 [facility] Comment on above: Performed By: #### L 501.8820, L101.9900, L100.0500, L500.2500 ####[facility] [address] [place], [address] Hematocrit (Bld) [Volume fraction] 33.6 % Low 37-47 [facility] Comment on above: Performed By: #### L 501.8820, L101.9900, L100.0500, L500.2500 ####[facility] [address] [place], [address] Hemoglobin (Bld) [Mass/Vol] 10.1 g/dL Low 12.0-15.0 [facility] Comment on above: Performed By: #### L 501.8820, L101.9900, L100.0500, L500.2500 ####[facility] [address] [place], [address] MCH (RBC) [Entitic mass] 24.0 pg Low 27.0-32.0 [facility] Comment on above: Performed By: #### L 501.8820, L101.9900, L100.0500, L500.2500 ####[facility] [address] [place], [address] MCHC (RBC) [Mass/Vol] 30.1 g/dL Low 32-36 [facility] Comment on above: Performed By: #### L 501.8820, L101.9900, L100.0500, L500.2500 ####[facility] [address] [place], [address] MCV (RBC) [Entitic vol] 79.8 fL Low 81-99 [facility] Comment on above: Performed By: #### L 501.8820, L101.9900, L100.0500, L500.2500 ####[facility] [address] [place], [address] Platelet mean volume (Bld) [Entitic vol] 9.3 fL Normal 6.2-12.0 [facility] Comment on above: Performed By: #### L 501.8820, L101.9900, L100.0500, L500.2500 ####[facility] [address] [place], [address] Platelets (Bld) [#/Vol] 347 10*3/uL Normal 150-450 [facility] Comment on above: Performed By: #### L 501.8820, L101.9900, L100.0500, L500.2500 ####[facility] [address] [place], [address] RBC (Bld) [#/Vol] 4.21 10*6/uL Normal 4.2-5.4 [facility] Comment on above: Performed By: #### L 501.8820, L101.9900, L100.0500, L500.2500 ####[facility] [address] [place], [address] RDW SD 45.4 fl High 35.1-43.9 [facility] Comment on above: Performed By: #### L 501.8820, L101.9900, L100.0500, L500.2500 ####[facility] [address] [place], [address] WBC (Bld) [#/Vol] 10.1 10*3/uL Normal 4.4-11.0 [facility] Comment on above: Performed By: #### L 501.8820, L101.9900, L100.0500, L500.2500 ####[facility] [address] [place], [place], [address] Determination of erythrocyte mean corpuscular volume (MCV)Ordered By: Sulma Alexander on 07-27-2023 MCV (RBC) [Entitic vol] 79.8 fL 81-99 [facility] Erythrocyte Sed Rateon 07-26 SED RATE 23 mm/hr Normal 0-30 [facility] Comment on above: Performed By: #### L 501.8820, L101.9900, L100.0500, L500.2500 ####[facility] [address] [place], [place], [address] Erythrocyte distribution wid th ratioOrdered By: Sulma Alexander on 07-27-2023 Erythrocyte distribution width (RBC) [Ratio] 15.9 % 11.6-14.6 [facility] Erythrocyte distribution wid th standard deviationOrdered By: Sulma Alexander on 07-27-2023 Erythrocyte distribution width (RBC) [Entitic vol] 45.4 fL 35.1-43.9 [facility] Erythrocyte sedimentation ra teOrdered By: Sulma Alexander on 07-27-2023 ESR (Bld) [Velocity] 23 mm/h 0-30 [facility] Hematocrit Auto (Bld) [Volum e fraction]Ordered By: Sulma Alexander on 07-27-2023 Hematocrit (Bld) [Volume fraction] 33.6 % 37-47 [facility] Laboratory - Chemistry and C hemistry - challengeOrdered By: Sulma Alexander on 07-27-2023 CO2 [Moles/Vol] 27.0 mmol/L 21.0-32.0 [facility] Urea nitrogen/Creatinine [Mass ratio] 21.7 mg/mg 10-20 [facility] Laboratory - Hematology and Cell countsOrdered By: Sulma Alexander on 07-27-2023 MCH (RBC) [Entitic mass] 24.0 pg 27.0-32.0 [facility] MCHC (RBC) [Mass/Vol] 30.1 g/dL 32-36 [facility] Platelet mean volume (Bld) [Entitic vol] 9.3 fL 6.2-12.0 [facility] Platelets (Bld) [#/Vol] 347 10*3/uL 150-450 [facility] No Panel InformationOrdered By: Sulma Alexander on 07-27-2023 Estimated GFR (MDRD) Amer 80 mL/min >60 [facility] Comment on above: GFR Calc Estimated GFR (MDRD) Non-Af Amer 66 mL/min >60 [facility] Comment on above: Non- GFR Calc RBC Auto (Bld) [#/Vol]Ordere d By: Sulma Alexander on 07-27-2023 RBC (Bld) [#/Vol] 4.21 10*6/uL 4.2-5.4 [facility] Serum or plasma calcium surjit urement (mass/volume)Ordered By: Sulma Alexander on 07-27-2023 Calcium [Mass/Vol] 9.8 mg/dL 8.5-10.1 [facility] Serum or plasma creatinine m easurement (mass/volume)Ordered By: Sulma Alexander on 07-27-2023 Creatinine [Mass/Vol] 0.88 mg/dL 0.55-1.02 [facility] Comment on above: The validity of the calculated GFR & GFRAA in patients over 70 years has not been determined. Clinical correlation is essential. Serum or plasma trough vanco mycin levelOrdered By: Sulma Alexander on 07-27-2023 Vancomycin trough [Mass/Vol] 21.1 ug/mL 5.0-15.0 [facility] Comment on above: VANCOMYCIN STANDARED DRUG THERAPY TROUGH LEVEL: 5.0 - 15.0 mg/L VANCOMYCIN HIGH INTENSITY THERAPY TROUGH LEVEL: 15.0 - 20.0 mg/L High Intensity therapy recommended for serious lifethreatening infections include:- Hruphditoq-Voigxothewbd-Azvjhszpe (Ventilator/Healtcare Associated)-Sepsis PLEASE CONTACT PHARMACY SERVICES (#[id number]) FOR INTERPRETATIONOF RESULTS. Serum or plasma urea nitroge n measurement (mass/volume)Ordered By: Sulma Alexander on 07-27-2023 Urea nitrogen [Mass/Vol] 19 mg/dL 7-18 [facility] Thin prep Papanicolaou smear with manual screeningOrdered By: Sulma Alexander on 07-27-2023 Thin prep Papanicolaou smear with manual screening 3 5-15 [facility] Vancomycin, Trough Levelon 0 07-27-2023 VANCO, TROUGH 21.1 ug/mL High 5.0-15.0 [facility] Comment on above: Order Comment: 1150 Result Comment: VANC OMYCIN STANDARED DRUG THERAPY TROUGH LEVEL: 5.0 - 15.0 mg/LVANCOMYCIN HIGH INTENSITY THERAPY TROUGH LEVEL: 15.0 - 20.0 mg/LHigh Intensity therapy recommended for serious lifethreatening infections include:- Vnuyndgtmq-Qvpnwtlhjvus-Fxhetcuyj (Ventilator/Healtcare Associated)-SepsisPLEASE CONTACT PHARMACY SERVICES (#[id number]) FOR INTERPRETATIONOF RESULTS. Performed By: #### L 501.8820, L101.9900, L100.0500, L500.2500 ####[facility] [address] [place], [place], [id number] Absolute lymphocyte countOrd ered By: Sulma Alexander on 07-20-2023 Lymphocytes Auto (Unsp spec) [#/Vol] 2.44 10*3/uL 0.83-4.51 [facility] Automated lymphocyte count a s percentage of total leukocytesOrdered By: Sulma Alexander on 07-20-2023 Lymphocytes/100 WBC Auto (Unsp spec) 25.5 % 19-41 [facility] Basic Metabolic Profile (BMP )on 07-20-2023 BUN/CRE 26.9 RATIO High 10-20 [facility] Comment on above: Performed By: #### L 501.8820, L100.0100, L101.9900, L500.2500 ####[facility] [address] [place], [place], [address] CA,Total 9.8 mg/dL Normal 8.5-10.1 [facility] Comment on above: Performed By: #### L 501.8820, L100.0100, L101.9900, L500.2500 ####[facility] [address] [place], [address] Chloride [Moles/Vol] 109 mmol/L High 98-107 [facility] Comment on above: Performed By: #### L 501.8820, L100.0100, L101.9900, L500.2500 ####[facility] [address] [place], [address] CO2 [Moles/Vol] 27.0 mmol/L Normal 21.0-32.0 [facility] Comment on above: Performed By: #### L 501.8820, L100.0100, L101.9900, L500.2500 ####[facility] [address] [place], [address] Creatinine [Mass/Vol] 0.67 mg/dL Normal 0.55-1.02 [facility] Comment on above: Result Comment: The validity of the calculated GFR GFRAA in patients over70 years has not been determined. Clinical correlation isessential. Performed By: #### L 501.8820, L100.0100, L101.9900, L500.2500 ####[facility] [address] [place], [address] EST GFR - AA 109 mL/min Normal >60 [facility] Comment on above: Result Comment: Afri can Mozambican GFR Calc Performed By: #### L 501.8820, L100.0100, L101.9900, L500.2500 ####[facility] [address] [place], [address] GAP 4 Low 5-15 [facility] Comment on above: Performed By: #### L 501.8820, L100.0100, L101.9900, L500.2500 ####[facility] [address] [place], [address] GFR/1.73 sq M.predicted among non-blacks MDRD (S/P/Bld) [Vol rate/Area] 90 mL/min/{1.73_m2} Normal >60 [facility] Comment on above: Result Comment: Non- GFR Calc Performed By: #### L 501.8820, L100.0100, L101.9900, L500.2500 ####[facility] [address] [place], [address] Glucose [Mass/Vol] 99 mg/dL Normal 74-106 [facility] Comment on above: Performed By: #### L 501.8820, L100.0100, L101.9900, L500.2500 ####[facility] [address] [place], [address] Potassium [Moles/Vol] 4.0 mmol/L Normal 3.5-5.1 [facility] Comment on above: Performed By: #### L 501.8820, L100.0100, L101.9900, L500.2500 ####[facility] [address] [place], [address] Sodium [Moles/Vol] 140 mmol/L Normal 136-145 [facility] Comment on above: Performed By: #### L 501.8820, L100.0100, L101.9900, L500.2500 ####[facility] [address] [place], [address] Urea nitrogen [Mass/Vol] 18 mg/dL Normal 7-18 [facility] Comment on above: Performed By: #### L 501.8820, L100.0100, L101.9900, L500.2500 ####[facility] [address] [place], [address] Basophil percentageOrdered B y: Sulma Alexander on 07-20-2023 Basophils/100 WBC (Bld) 0.4 % 0-1 [facility] Chloride [Moles/Vol] 109 mmol/L 98-107 [facility] Eosinophils/100 WBC (Bld) 1.6 % 0-5 [facility] Glucose [Mass/Vol] 99 mg/dL 74-106 [facility] Hemoglobin (Bld) [Mass/Vol] 9.7 g/dL 12.0-15.0 [facility] Monocytes/100 WBC (Bld) 9.6 % 0-10 [facility] Neutrophils (Bld) [#/Vol] 6.0 10*3/uL 2.0-7.7 [facility] Neutrophils/100 WBC (Bld) 62.4 % 47-70 [facility] Potassium [Moles/Vol] 4.0 mmol/L 3.5-5.1 [facility] Sodium [Moles/Vol] 140 mmol/L 136-145 [facility] WBC (Bld) [#/Vol] 9.6 10*3/uL 4.4-11.0 [facility] CBC W/Diff, Automatedon 04-3 0-2023 Absolute Lymph 2.44 X10 3/uL Normal 0.83-4.51 [facility] Comment on above: Performed By: #### L 501.8820, L100.0100, L101.9900, L500.2500 ####[facility] [address] [place], [address] Absolute Neut 6.0 X10 3/uL Normal 2.0-7.7 [facility] Comment on above: Performed By: #### L 501.8820, L100.0100, L101.9900, L500.2500 ####[facility] [address] [place], [address] Basophils/100 WBC (Bld) 0.4 % Normal 0-1 [facility] Comment on above: Performed By: #### L 501.8820, L100.0100, L101.9900, L500.2500 ####[facility] [address] [place], [address] Eosinophils/100 WBC (Bld) 1.6 % Normal 0-5 [facility] Comment on above: Performed By: #### L 501.8820, L100.0100, L101.9900, L500.2500 ####[facility] [address] [place], [address] Erythrocyte distribution width (RBC) [Ratio] 15.3 % High 11.6-14.6 [facility] Comment on above: Performed By: #### L 501.8820, L100.0100, L101.9900, L500.2500 ####[facility] [address] [place], [address] Hematocrit (Bld) [Volume fraction] 31.8 % Low 37-47 [facility] Comment on above: Performed By: #### L 501.8820, L100.0100, L101.9900, L500.2500 ####[facility] [address] [place], [address] Hemoglobin (Bld) [Mass/Vol] 9.7 g/dL Low 12.0-15.0 [facility] Comment on above: Performed By: #### L 501.8820, L100.0100, L101.9900, L500.2500 ####[facility] [address] [place], [address] IG% 0.500 Normal 0.0-0.9 [facility] Comment on above: Result Comment: IG% - Immature Granulocytes (promyelocytes, myelocytes andmetamyelocytes) > 1% indicates that a LEFT SHIFT is Present. Performed By: #### L 501.8820, L100.0100, L101.9900, L500.2500 ####[facility] [address] [place], [address] Lymphocytes/100 WBC (Bld) 25.5 % Normal 19-41 [facility] Comment on above: Performed By: #### L 501.8820, L100.0100, L101.9900, L500.2500 ####[facility] [address] [place], [address] MCH (RBC) [Entitic mass] 24.1 pg Low 27.0-32.0 [facility] Comment on above: Performed By: #### L 501.8820, L100.0100, L101.9900, L500.2500 ####[facility] [address] [place], [address] MCHC (RBC) [Mass/Vol] 30.5 g/dL Low 32-36 [facility] Comment on above: Performed By: #### L 501.8820, L100.0100, L101.9900, L500.2500 ####[facility] [address] [place], [address] MCV (RBC) [Entitic vol] 79.1 fL Low 81-99 [facility] Comment on above: Performed By: #### L 501.8820, L100.0100, L101.9900, L500.2500 ####[facility] [address] [place], [address] Monocytes/100 WBC (Bld) 9.6 % Normal 0-10 [facility] Comment on above: Performed By: #### L 501.8820, L100.0100, L101.9900, L500.2500 ####[facility] [address] [place], [address] Neutrophils/100 WBC (Bld) 62.4 % Normal 47-70 [facility] Comment on above: Performed By: #### L 501.8820, L100.0100, L101.9900, L500.2500 ####[facility] [address] [place], [address] Nucleated RBC (Bld) [#/Vol] 0 10*3/uL Normal 0-5 [facility] Comment on above: Performed By: #### L 501.8820, L100.0100, L101.9900, L500.2500 ####[facility] [address] [place], [address] Platelet mean volume (Bld) [Entitic vol] 9.1 fL Normal 6.2-12.0 [facility] Comment on above: Performed By: #### L 501.8820, L100.0100, L101.9900, L500.2500 ####[facility] [address] [place], [address] Platelets (Bld) [#/Vol] 393 10*3/uL Normal 150-450 [facility] Comment on above: Performed By: #### L 501.8820, L100.0100, L101.9900, L500.2500 ####[facility] [address] [place], [address] RBC (Bld) [#/Vol] 4.02 10*6/uL Low 4.2-5.4 [facility] Comment on above: Performed By: #### L 501.8820, L100.0100, L101.9900, L500.2500 ####[facility] [address] [place], [address] RDW SD 43.8 fl Normal 35.1-43.9 [facility] Comment on above: Performed By: #### L 501.8820, L100.0100, L101.9900, L500.2500 ####[facility] [address] [place], [address] WBC (Bld) [#/Vol] 9.6 10*3/uL Normal 4.4-11.0 [facility] Comment on above: Performed By: #### L 501.8820, L100.0100, L101.9900, L500.2500 ####[facility] [address] [place], [address] Determination of erythrocyte mean corpuscular volume (MCV)Ordered By: Sulma Alexander on 07-20-2023 MCV (RBC) [Entitic vol] 79.1 fL 81-99 [facility] Erythrocyte Sed Rateon 07-19 SED RATE 21 mm/hr Normal 0- [facility] Comment on above: Performed By: #### L 501.8820, L100.0100, L101.9900, L500.2500 ####[facility] [address] [place], [address] Erythrocyte distribution wid th ratioOrdered By: Sulma Alexander on 07-20-2023 Erythrocyte distribution width (RBC) [Ratio] 15.3 % 11.6-14.6 [facility] Erythrocyte distribution wid th standard deviationOrdered By: Sulma Alexander on 07-20-2023 Erythrocyte distribution width (RBC) [Entitic vol] 43.8 fL 35.1-43.9 [facility] Erythrocyte sedimentation ra teOrdered By: Sulma Alexander on 07-20-2023 ESR (Bld) [Velocity] 21 mm/h 0- [facility] Hematocrit Auto (Bld) [Volum e fraction]Ordered By: Sulma Alexander on 07-20-2023 Hematocrit (Bld) [Volume fraction] 31.8 % 37-47 [facility] Immature granulocytes/100 WB C Auto (Bld)Ordered By: Sulma Alexander on 07-20-2023 Immature granulocytes/100 WBC (Bld) 0.500 % 0.0-0.9 [facility] Comment on above: IG% - Immature Granu locytes (promyelocytes, myelocytes and metamyelocytes) > 1% indicates that a LEFT SHIFT is Present. Laboratory - Chemistry and C hemistry - challengeOrdered By: Sulma Alexander on 07-20-2023 CO2 [Moles/Vol] 27.0 mmol/L 21.0-32.0 [facility] Urea nitrogen/Creatinine [Mass ratio] 26.9 mg/mg 10- [facility] Laboratory - Hematology and Cell countsOrdered By: Sulma Alexander on 07-20-2023 MCH (RBC) [Entitic mass] 24.1 pg 27.0-32.0 [facility] MCHC (RBC) [Mass/Vol] 30.5 g/dL 32-36 [facility] Nucleated RBC/100 WBC (Bld) [Ratio] 0 % 0-5 [facility] Platelet mean volume (Bld) [Entitic vol] 9.1 fL 6.2-12.0 [facility] Platelets (Bld) [#/Vol] 393 10*3/uL 150-450 [facility] No Panel InformationOrdered By: Sulma Alexander on 07-20-2023 Estimated GFR (MDRD) Amer 109 mL/min >60 [facility] Comment on above: GFR Calc Estimated GFR (MDRD) Non-Af Amer 90 mL/min >60 [facility] Comment on above: Non- GFR Calc RBC Auto (Bld) [#/Vol]Ordere d By: Sulma Alexander on 07-20-2023 RBC (Bld) [#/Vol] 4.02 10*6/uL 4.2-5.4 [facility] Serum or plasma calcium surjit urement (mass/volume)Ordered By: Sulma Alexander on 07-20-2023 Calcium [Mass/Vol] 9.8 mg/dL 8.5-10.1 [facility] Serum or plasma creatinine m easurement (mass/volume)Ordered By: Sulma Alexander on 07-20-2023 Creatinine [Mass/Vol] 0.67 mg/dL 0.55-1.02 [facility] Comment on above: The validity of the calculated GFR & GFRAA in patients over 70 years has not been determined. Clinical correlation is essential. Serum or plasma trough vanco mycin levelOrdered By: Sulma Alexander on 07-20-2023 Vancomycin trough [Mass/Vol] 18.2 ug/mL 5.0-15.0 [facility] Comment on above: VANCOMYCIN STANDARED DRUG THERAPY TROUGH LEVEL: 5.0 - 15.0 mg/L VANCOMYCIN HIGH INTENSITY THERAPY TROUGH LEVEL: 15.0 - 20.0 mg/L High Intensity therapy recommended for serious lifethreatening infections include:- Zjfqkivuaq-Tjruchbkoqme-Isgtsxnrp (Ventilator/Healtcare Associated)-Sepsis PLEASE CONTACT PHARMACY SERVICES (#[id number]) FOR INTERPRETATIONOF RESULTS. Serum or plasma urea nitroge n measurement (mass/volume)Ordered By: Sulma Alexander on 07-20-2023 Urea nitrogen [Mass/Vol] 18 mg/dL 7-18 [facility] Thin prep Papanicolaou smear with manual screeningOrdered By: Sulma Alexander on 07-20-2023 Thin prep Papanicolaou smear with manual screening 4 5-15 [facility] Vancomycin, Trough Levelon 0 07-20-2023 VANCO, TROUGH 18.2 ug/mL High 5.0-15.0 [facility] Comment on above: Order Comment: 0000 Result Comment: VANC OMYCIN STANDARED DRUG THERAPY TROUGH LEVEL: 5.0 - 15.0 mg/LVANCOMYCIN HIGH INTENSITY THERAPY TROUGH LEVEL: 15.0 - 20.0 mg/LHigh Intensity therapy recommended for serious lifethreatening infections include:- Naqsphkzts-Vcpxznzkbiss-Icjwpsdvm (Ventilator/Healtcare Associated)-SepsisPLEASE CONTACT PHARMACY SERVICES (#[id number]) FOR INTERPRETATIONOF RESULTS. Performed By: #### L 501.8820, L100.0100, L101.9900, L500.2500 ####[facility] [address] [place], [address] Basic Metabolic Profile (BMP )on 07-13-2023 BUN/CRE 24.3 RATIO High 10-20 [facility] Comment on above: Performed By: #### L 101.9900, L500.2500, L501.8820, L100.0500 ####[facility] [address] [place], [address] CA,Total 10.0 mg/dL Normal 8.5-10.1 [facility] Comment on above: Performed By: #### L 101.9900, L500.2500, L501.8820, L100.0500 ####[facility] [address] [place], [address] Chloride [Moles/Vol] 107 mmol/L Normal 98-107 [facility] Comment on above: Performed By: #### L 101.9900, L500.2500, L501.8820, L100.0500 ####[facility] [address] [place], [address] CO2 [Moles/Vol] 27.0 mmol/L Normal 21.0-32.0 [facility] Comment on above: Performed By: #### L 101.9900, L500.2500, L501.8820, L100.0500 ####[facility] [address] [place], [address] Creatinine [Mass/Vol] 0.74 mg/dL Normal 0.55-1.02 [facility] Comment on above: Result Comment: The validity of the calculated GFR GFRAA in patients over70 years has not been determined. Clinical correlation isessential. Performed By: #### L 101.9900, L500.2500, L501.8820, L100.0500 ####[facility] [address] [place], [address] EST GFR - AA 97 mL/min Normal >60 [facility] Comment on above: Result Comment: Afri can Moz[place]ican GFR Calc Performed By: #### L 101.9900, L500.2500, L501.8820, L100.0500 ####[facility] [address] [place], [address] GAP 3 Low 5-15 [facility] Comment on above: Performed By: #### L 101.9900, L500.2500, L501.8820, L100.0500 ####[facility] [address] [place], [address] GFR/1.73 sq M.predicted among non-blacks MDRD (S/P/Bld) [Vol rate/Area] 80 mL/min/{1.73_m2} Normal >60 [facility] Comment on above: Result Comment: Non- GFR Calc Performed By: #### L 101.9900, L500.2500, L501.8820, L100.0500 ####[facility] [address] [place], [address] Glucose [Mass/Vol] 113 mg/dL High 74-106 [facility] Comment on above: Result Comment: Fast ing Glucose result from 100 to 125 mg/dLsuggests IMPAIRED HOMEOSTASIS per A.D.A. criteria. Performed By: #### L 101.9900, L500.2500, L501.8820, L100.0500 ####[facility] [address] [place], [address] Potassium [Moles/Vol] 3.9 mmol/L Normal 3.5-5.1 [facility] Comment on above: Performed By: #### L 101.9900, L500.2500, L501.8820, L100.0500 ####[facility] [address] [place], [address] Sodium [Moles/Vol] 137 mmol/L Normal 136-145 [facility] Comment on above: Performed By: #### L 101.9900, L500.2500, L501.8820, L100.0500 ####[facility] [address] [place], [address] Urea nitrogen [Mass/Vol] 18 mg/dL Normal 7-18 [facility] Comment on above: Performed By: #### L 101.9900, L500.2500, L501.8820, L100.0500 ####[facility] [address] [place], [address] Basophil percentageOrdered B y: Sulma Alexander on 07-13-2023 Chloride [Moles/Vol] 107 mmol/L 98-107 [facility] Glucose [Mass/Vol] 113 mg/dL 74-106 [facility] Comment on above: Fasting Glucose resu lt from 100 to 125 mg/dL suggests IMPAIRED HOMEOSTASIS per A.D.A. criteria. Hemoglobin (Bld) [Mass/Vol] 9.6 g/dL 12.0-15.0 [facility] Potassium [Moles/Vol] 3.9 mmol/L 3.5-5.1 [facility] Sodium [Moles/Vol] 137 mmol/L 136-145 [facility] WBC (Bld) [#/Vol] 9.7 10*3/uL 4.4-11.0 [facility] CBC-Complete Blood Cnt No Claudia velarde 07-13-2023 Erythrocyte distribution width (RBC) [Ratio] 15.1 % High 11.6-14.6 [facility] Comment on above: Performed By: #### L 101.9900, L500.2500, L501.8820, L100.0500 ####[facility] [address] [place], [address] Hematocrit (Bld) [Volume fraction] 31.4 % Low 37-47 [facility] Comment on above: Performed By: #### L 101.9900, L500.2500, L501.8820, L100.0500 ####[facility] [address] [place], [address] Hemoglobin (Bld) [Mass/Vol] 9.6 g/dL Low 12.0-15.0 [facility] Comment on above: Performed By: #### L 101.9900, L500.2500, L501.8820, L100.0500 ####[facility] [address] [place], [address] MCH (RBC) [Entitic mass] 24.2 pg Low 27.0-32.0 [facility] Comment on above: Performed By: #### L 101.9900, L500.2500, L501.8820, L100.0500 ####[facility] [address] [place], [address] MCHC (RBC) [Mass/Vol] 30.6 g/dL Low 32-36 [facility] Comment on above: Performed By: #### L 101.9900, L500.2500, L501.8820, L100.0500 ####[facility] [address] [place], [address] MCV (RBC) [Entitic vol] 79.3 fL Low 81-99 [facility] Comment on above: Performed By: #### L 101.9900, L500.2500, L501.8820, L100.0500 ####[facility] [address] [place], [address] Platelet mean volume (Bld) [Entitic vol] 8.4 fL Normal 6.2-12.0 [facility] Comment on above: Performed By: #### L 101.9900, L500.2500, L501.8820, L100.0500 ####[facility] [address] [place], [address] Platelets (Bld) [#/Vol] 407 10*3/uL Normal 150-450 [facility] Comment on above: Performed By: #### L 101.9900, L500.2500, L501.8820, L100.0500 ####[facility] [address] [place], [address] RBC (Bld) [#/Vol] 3.96 10*6/uL Low 4.2-5.4 [facility] Comment on above: Performed By: #### L 101.9900, L500.2500, L501.8820, L100.0500 ####[facility] [address] [place], [address] RDW SD 43.7 fl Normal 35.1-43.9 [facility] Comment on above: Performed By: #### L 101.9900, L500.2500, L501.8820, L100.0500 ####[facility] [address] [place], [address] WBC (Bld) [#/Vol] 9.7 10*3/uL Normal 4.4-11.0 [facility] Comment on above: Performed By: #### L 101.9900, L500.2500, L501.8820, L100.0500 ####[facility] [address] [place], [place], [address] Determination of erythrocyte mean corpuscular volume (MCV)Ordered By: Sulma Alexander on 07-13-2023 MCV (RBC) [Entitic vol] 79.3 fL 81-99 [facility] Erythrocyte Sed Rateon 07-12 SED RATE 30 mm/hr Normal 0-30 [facility] Comment on above: Performed By: #### L 101.9900, L500.2500, L501.8820, L100.0500 ####[facility] [address] [place], [place], [address] Erythrocyte distribution wid th ratioOrdered By: Sulma Alexander on 07-13-2023 Erythrocyte distribution width (RBC) [Ratio] 15.1 % 11.6-14.6 [facility] Erythrocyte distribution wid th standard deviationOrdered By: Sulma Alexander on 07-13-2023 Erythrocyte distribution width (RBC) [Entitic vol] 43.7 fL 35.1-43.9 [facility] Erythrocyte sedimentation ra teOrdered By: Sulma Alexander on 07-13-2023 ESR (Bld) [Velocity] 30 mm/h 0-30 [facility] Hematocrit Auto (Bld) [Volum e fraction]Ordered By: Sulma Alexander on 07-13-2023 Hematocrit (Bld) [Volume fraction] 31.4 % 37-47 [facility] Laboratory - Chemistry and C hemistry - challengeOrdered By: Sulma Alexander on 07-13-2023 CO2 [Moles/Vol] 27.0 mmol/L 21.0-32.0 [facility] Urea nitrogen/Creatinine [Mass ratio] 24.3 mg/mg 10-20 [facility] Laboratory - Hematology and Cell countsOrdered By: Sulma Alexander on 07-13-2023 MCH (RBC) [Entitic mass] 24.2 pg 27.0-32.0 [facility] MCHC (RBC) [Mass/Vol] 30.6 g/dL 32-36 [facility] Platelet mean volume (Bld) [Entitic vol] 8.4 fL 6.2-12.0 [facility] Platelets (Bld) [#/Vol] 407 10*3/uL 150-450 [facility] No Panel InformationOrdered By: Sulma Alexander on 07-13-2023 Estimated GFR (MDRD) Amer 97 mL/min >60 [facility] Comment on above: GFR Calc Estimated GFR (MDRD) Non-Af Amer 80 mL/min >60 [facility] Comment on above: Non- GFR Calc RBC Auto (Bld) [#/Vol]Ordere d By: Sulma Alexander on 07-13-2023 RBC (Bld) [#/Vol] 3.96 10*6/uL 4.2-5.4 [facility] Serum or plasma calcium surjit urement (mass/volume)Ordered By: Sulma Alexander on 07-13-2023 Calcium [Mass/Vol] 10.0 mg/dL 8.5-10.1 [facility] Serum or plasma creatinine m easurement (mass/volume)Ordered By: Sulma Alexander on 07-13-2023 Creatinine [Mass/Vol] 0.74 mg/dL 0.55-1.02 [facility] Comment on above: The validity of the calculated GFR & GFRAA in patients over 70 years has not been determined. Clinical correlation is essential. Serum or plasma trough vanco mycin levelOrdered By: Sulma Alexander on 07-13-2023 Vancomycin trough [Mass/Vol] 17.7 ug/mL 5.0-15.0 [facility] Comment on above: VANCOMYCIN STANDARED DRUG THERAPY TROUGH LEVEL: 5.0 - 15.0 mg/L VANCOMYCIN HIGH INTENSITY THERAPY TROUGH LEVEL: 15.0 - 20.0 mg/L High Intensity therapy recommended for serious lifethreatening infections include:- Lozuauwtbu-Yfomhoiqerhw-Kwrwbncic (Ventilator/Healtcare Associated)-Sepsis PLEASE CONTACT PHARMACY SERVICES (#[id number]) FOR INTERPRETATIONOF RESULTS. Serum or plasma urea nitroge n measurement (mass/volume)Ordered By: Sulma Alexander on 07-13-2023 Urea nitrogen [Mass/Vol] 18 mg/dL 7-18 [facility] Thin prep Papanicolaou smear with manual screeningOrdered By: Sulma Alexander on 07-13-2023 Thin prep Papanicolaou smear with manual screening 3 5-15 [facility] Vancomycin, Trough Levelon 0 07-13-2023 VANCO, TROUGH 17.7 ug/mL High 5.0-15.0 [facility] Comment on above: Order Comment: 1311 Result Comment: VANC OMYCIN STANDARED DRUG THERAPY TROUGH LEVEL: 5.0 - 15.0 mg/LVANCOMYCIN HIGH INTENSITY THERAPY TROUGH LEVEL: 15.0 - 20.0 mg/LHigh Intensity therapy recommended for serious lifethreatening infections include:- Reriknqugw-Smmieempyrml-Juvhlumdl (Ventilator/Healtcare Associated)-SepsisPLEASE CONTACT PHARMACY SERVICES (#[id number]) FOR INTERPRETATIONOF RESULTS. Performed By: #### L 101.9900, L500.2500, L501.8820, L100.0500 ####[facility] [address] [place], [address] Basic Metabolic Profile (BMP )on 07-06-2023 BUN/CRE 25.1 RATIO High 10-20 [facility] Comment on above: Performed By: #### L 100.0500, L101.9900, L500.2500, L501.8820 ####[facility] [address] [place], [address] CA,Total 9.6 mg/dL Normal 8.5-10.1 [facility] Comment on above: Performed By: #### L 100.0500, L101.9900, L500.2500, L501.8820 ####[facility] [address] [place], [address] Chloride [Moles/Vol] 108 mmol/L High 98-107 [facility] Comment on above: Performed By: #### L 100.0500, L101.9900, L500.2500, L501.8820 ####[facility] [address] [place], [address] CO2 [Moles/Vol] 28.0 mmol/L Normal 21.0-32.0 [facility] Comment on above: Performed By: #### L 100.0500, L101.9900, L500.2500, L501.8820 ####[facility] [address] [place], [address] Creatinine [Mass/Vol] 0.72 mg/dL Normal 0.55-1.02 [facility] Comment on above: Result Comment: The validity of the calculated GFR GFRAA in patients over70 years has not been determined. Clinical correlation isessential. Performed By: #### L 100.0500, L101.9900, L500.2500, L501.8820 ####[facility] [address] [place], [address] EST GFR - AA 101 mL/min Normal >60 [facility] Comment on above: Result Comment: Afri can Mozambican GFR Calc Performed By: #### L 100.0500, L101.9900, L500.2500, L501.8820 ####[facility] [address] [place], [address] GAP 3 Low 5-15 [facility] Comment on above: Performed By: #### L 100.0500, L101.9900, L500.2500, L501.8820 ####[facility] [address] [place], [address] GFR/1.73 sq M.predicted among non-blacks MDRD (S/P/Bld) [Vol rate/Area] 84 mL/min/{1.73_m2} Normal >60 [facility] Comment on above: Result Comment: Non- GFR Calc Performed By: #### L 100.0500, L101.9900, L500.2500, L501.8820 ####[facility] [address] [place], [address] Glucose [Mass/Vol] 122 mg/dL High 74-106 [facility] Comment on above: Result Comment: Fast ing Glucose result from 100 to 125 mg/dLsuggests IMPAIRED HOMEOSTASIS per A.D.A. criteria. Performed By: #### L 100.0500, L101.9900, L500.2500, L501.8820 ####[facility] [address] [place], [address] Potassium [Moles/Vol] 3.7 mmol/L Normal 3.5-5.1 [facility] Comment on above: Performed By: #### L 100.0500, L101.9900, L500.2500, L501.8820 ####[facility] [address] [place], [address] Sodium [Moles/Vol] 139 mmol/L Normal 136-145 [facility] Comment on above: Performed By: #### L 100.0500, L101.9900, L500.2500, L501.8820 ####[facility] [address] [place], [address] Urea nitrogen [Mass/Vol] 18 mg/dL Normal 7-18 [facility] Comment on above: Performed By: #### L 100.0500, L101.9900, L500.2500, L501.8820 ####[facility] [address] [place], [address] Basophil percentageOrdered B y: Roman Faith on 07-06-2023 Chloride [Moles/Vol] 108 mmol/L 98-107 [facility] Glucose [Mass/Vol] 122 mg/dL 74-106 [facility] Comment on above: Fasting Glucose resu lt from 100 to 125 mg/dL suggests IMPAIRED HOMEOSTASIS per A.D.A. criteria. Hemoglobin (Bld) [Mass/Vol] 9.0 g/dL 12.0-15.0 [facility] Potassium [Moles/Vol] 3.7 mmol/L 3.5-5.1 [facility] Sodium [Moles/Vol] 139 mmol/L 136-145 [facility] WBC (Bld) [#/Vol] 11.1 10*3/uL 4.4-11.0 [facility] CBC-Complete Blood Cnt No Di ffon 07-06-2023 Erythrocyte distribution width (RBC) [Ratio] 15.0 % High 11.6-14.6 [facility] Comment on above: Performed By: #### L 100.0500, L101.9900, L500.2500, L501.8820 ####[facility] [address] [place], [address] Hematocrit (Bld) [Volume fraction] 29.4 % Low 37-47 [facility] Comment on above: Performed By: #### L 100.0500, L101.9900, L500.2500, L501.8820 ####[facility] [address] [place], [address] Hemoglobin (Bld) [Mass/Vol] 9.0 g/dL Low 12.0-15.0 [facility] Comment on above: Performed By: #### L 100.0500, L101.9900, L500.2500, L501.8820 ####[facility] [address] [place], [address] MCH (RBC) [Entitic mass] 24.6 pg Low 27.0-32.0 [facility] Comment on above: Performed By: #### L 100.0500, L101.9900, L500.2500, L501.8820 ####[facility] [address] [place], [address] MCHC (RBC) [Mass/Vol] 30.6 g/dL Low 32-36 [facility] Comment on above: Performed By: #### L 100.0500, L101.9900, L500.2500, L501.8820 ####[facility] [address] [place], [address] MCV (RBC) [Entitic vol] 80.3 fL Low 81-99 [facility] Comment on above: Performed By: #### L 100.0500, L101.9900, L500.2500, L501.8820 ####[facility] [address] [place], [address] Platelet mean volume (Bld) [Entitic vol] 8.4 fL Normal 6.2-12.0 [facility] Comment on above: Performed By: #### L 100.0500, L101.9900, L500.2500, L501.8820 ####[facility] [address] [place], [address] Platelets (Bld) [#/Vol] 315 10*3/uL Normal 150-450 [facility] Comment on above: Performed By: #### L 100.0500, L101.9900, L500.2500, L501.8820 ####[facility] [address] [place], [address] RBC (Bld) [#/Vol] 3.66 10*6/uL Low 4.2-5.4 [facility] Comment on above: Performed By: #### L 100.0500, L101.9900, L500.2500, L501.8820 ####[facility] [address] [place], [address] RDW SD 44.0 fl High 35.1-43.9 [facility] Comment on above: Performed By: #### L 100.0500, L101.9900, L500.2500, L501.8820 ####[facility] [address] [place], [address] WBC (Bld) [#/Vol] 11.1 10*3/uL High 4.4-11.0 [facility] Comment on above: Performed By: #### L 100.0500, L101.9900, L500.2500, L501.8820 ####[facility] [address] [place], [address] Determination of erythrocyte mean corpuscular volume (MCV)Ordered By: Roman Faith on 07-06-2023 MCV (RBC) [Entitic vol] 80.3 fL 81-99 [facility] Erythrocyte Sed Rateon 07-05 SED RATE 28 mm/hr Normal 0-30 [facility] Comment on above: Performed By: #### L 100.0500, L101.9900, L500.2500, L501.8820 ####[facility] [address] [place], [place], [id number] Erythrocyte distribution wid th ratioOrdered By: Roman Faith on 07-06-2023 Erythrocyte distribution width (RBC) [Ratio] 15.0 % 11.6-14.6 [facility] Erythrocyte distribution wid th standard deviationOrdered By: Roman Faith on 07-06-2023 Erythrocyte distribution width (RBC) [Entitic vol] 44.0 fL 35.1-43.9 [facility] Erythrocyte sedimentation ra teOrdered By: Roman Faith on 07-06-2023 ESR (Bld) [Velocity] 28 mm/h 0-30 [facility] Hematocrit Auto (Bld) [Volum e fraction]Ordered By: Roman Faith on 07-06-2023 Hematocrit (Bld) [Volume fraction] 29.4 % 37-47 [facility] Laboratory - Chemistry and C hemistry - challengeOrdered By: Roman Faith on 07-06-2023 CO2 [Moles/Vol] 28.0 mmol/L 21.0-32.0 [facility] Urea nitrogen/Creatinine [Mass ratio] 25.1 mg/mg 10-20 [facility] Laboratory - Hematology and Cell countsOrdered By: Roman Faith on 07-06-2023 MCH (RBC) [Entitic mass] 24.6 pg 27.0-32.0 [facility] MCHC (RBC) [Mass/Vol] 30.6 g/dL 32-36 [facility] Platelet mean volume (Bld) [Entitic vol] 8.4 fL 6.2-12.0 [facility] Platelets (Bld) [#/Vol] 315 10*3/uL 150-450 [facility] No Panel InformationOrdered By: Roman Faith on 07-06-2023 Estimated GFR (MDRD) Amer 101 mL/min >60 [facility] Comment on above: GFR Calc Estimated GFR (MDRD) Non-Af Amer 84 mL/min >60 [facility] Comment on above: Non- GFR Calc RBC Auto (Bld) [#/Vol]Ordere d By: Roman Faith on 07-06-2023 RBC (Bld) [#/Vol] 3.66 10*6/uL 4.2-5.4 [facility] Serum or plasma calcium surjit urement (mass/volume)Ordered By: Roman Faith on 07-06-2023 Calcium [Mass/Vol] 9.6 mg/dL 8.5-10.1 [facility] Serum or plasma creatinine m easurement (mass/volume)Ordered By: Roman Faith on 07-06-2023 Creatinine [Mass/Vol] 0.72 mg/dL 0.55-1.02 [facility] Comment on above: The validity of the calculated GFR & GFRAA in patients over 70 years has not been determined. Clinical correlation is essential. Serum or plasma trough vanco mycin levelOrdered By: Roman Faith on 07-06-2023 Vancomycin trough [Mass/Vol] 15.6 ug/mL 5.0-15.0 [facility] Comment on above: VANCOMYCIN STANDARED DRUG THERAPY TROUGH LEVEL: 5.0 - 15.0 mg/L VANCOMYCIN HIGH INTENSITY THERAPY TROUGH LEVEL: 15.0 - 20.0 mg/L High Intensity therapy recommended for serious lifethreatening infections include:- Dwbhaszhkl-Ksvgavfbymdu-Ugfwdtvnf (Ventilator/Healtcare Associated)-Sepsis PLEASE CONTACT PHARMACY SERVICES (#[id number]) FOR INTERPRETATIONOF RESULTS. Serum or plasma urea nitroge n measurement (mass/volume)Ordered By: Roman Faith on 07-06-2023 Urea nitrogen [Mass/Vol] 18 mg/dL 7-18 [facility] Thin prep Papanicolaou smear with manual screeningOrdered By: Roman Faith on 07-06-2023 Thin prep Papanicolaou smear with manual screening 3 5-15 [facility] Vancomycin, Trough Levelon 0 4-16-2024 VANCO, TROUGH 15.6 ug/mL High 5.0-15.0 [facility] Comment on above: Order Comment: 1300 Result Comment: VANC OMYCIN STANDARED DRUG THERAPY TROUGH LEVEL: 5.0 - 15.0 mg/LVANCOMYCIN HIGH INTENSITY THERAPY TROUGH LEVEL: 15.0 - 20.0 mg/LHigh Intensity therapy recommended for serious lifethreatening infections include:- Xpkdtuuvjh-Lchigipxwmml-Plcwqcpkz (Ventilator/Healtcare Associated)-SepsisPLEASE CONTACT PHARMACY SERVICES (#3108) FOR INTERPRETATIONOF RESULTS. Performed By: #### L 100.0500, L101.9900, L500.2500, L501.8820 ####[facility] [address] [place], [address] Basic Metabolic Profile (BMP )on 06-29-2023 BUN/CRE 23.5 RATIO High 10-20 [facility] Comment on above: Performed By: #### L 100.0500, L101.9900, L501.8820, L500.2500 ####[facility] [address] [place], [address] CA,Total 10.1 mg/dL Normal 8.5-10.1 [facility] Comment on above: Performed By: #### L 100.0500, L101.9900, L501.8820, L500.2500 ####[facility] [address] [place], [address] Chloride [Moles/Vol] 106 mmol/L Normal 98-107 [facility] Comment on above: Performed By: #### L 100.0500, L101.9900, L501.8820, L500.2500 ####[facility] [address] [place], [address] CO2 [Moles/Vol] 28.0 mmol/L Normal 21.0-32.0 [facility] Comment on above: Performed By: #### L 100.0500, L101.9900, L501.8820, L500.2500 ####[facility] [address] [place], [address] Creatinine [Mass/Vol] 0.64 mg/dL Normal 0.55-1.02 [facility] Comment on above: Result Comment: The validity of the calculated GFR GFRAA in patients over70 years has not been determined. Clinical correlation isessential. Performed By: #### L 100.0500, L101.9900, L501.8820, L500.2500 ####[facility] [address] [place], [address] ECRCL 40.96 ml/min Normal [facility] Comment on above: Performed By: #### L 100.0500, L101.9900, L501.8820, L500.2500 ####[facility] [address] [place], [address] EST GFR - AA 116 mL/min Normal >60 [facility] Comment on above: Result Comment: Afri can Mozambican GFR Calc Performed By: #### L 100.0500, L101.9900, L501.8820, L500.2500 ####[facility] [address] [place], [address] GAP 4 Low 5-15 [facility] Comment on above: Performed By: #### L 100.0500, L101.9900, L501.8820, L500.2500 ####[facility] [address] [place], [address] GFR/1.73 sq M.predicted among non-blacks MDRD (S/P/Bld) [Vol rate/Area] 95 mL/min/{1.73_m2} Normal >60 [facility] Comment on above: Result Comment: Non- GFR Calc Performed By: #### L 100.0500, L101.9900, L501.8820, L500.2500 ####[facility] [address] [place], [address] Glucose [Mass/Vol] 116 mg/dL High 74-106 [facility] Comment on above: Result Comment: Fast ing Glucose result from 100 to 125 mg/dLsuggests IMPAIRED HOMEOSTASIS per A.D.A. criteria. Performed By: #### L 100.0500, L101.9900, L501.8820, L500.2500 ####[facility] [address] [place], [address] Potassium [Moles/Vol] 4.2 mmol/L Normal 3.5-5.1 [facility] Comment on above: Performed By: #### L 100.0500, L101.9900, L501.8820, L500.2500 ####[facility] [address] [place], [address] Sodium [Moles/Vol] 138 mmol/L Normal 136-145 [facility] Comment on above: Performed By: #### L 100.0500, L101.9900, L501.8820, L500.2500 ####[facility] [address] [place], [address] Urea nitrogen [Mass/Vol] 15 mg/dL Normal 7-18 [facility] Comment on above: Performed By: #### L 100.0500, L101.9900, L501.8820, L500.2500 ####[facility] [address] [place], [address] Basophil percentageOrdered B y: Roman Faith on 06-29-2023 Chloride [Moles/Vol] 106 mmol/L 98-107 [facility] Glucose [Mass/Vol] 116 mg/dL 74-106 [facility] Comment on above: Fasting Glucose resu lt from 100 to 125 mg/dL suggests IMPAIRED HOMEOSTASIS per A.D.A. criteria. Hemoglobin (Bld) [Mass/Vol] 9.5 g/dL 12.0-15.0 [facility] Potassium [Moles/Vol] 4.2 mmol/L 3.5-5.1 [facility] Sodium [Moles/Vol] 138 mmol/L 136-145 [facility] WBC (Bld) [#/Vol] 12.3 10*3/uL 4.4-11.0 [facility] CBC-Complete Blood Cnt No Di ffon 06-29-2023 Erythrocyte distribution width (RBC) [Ratio] 15.7 % High 11.6-14.6 [facility] Comment on above: Performed By: #### L 100.0500, L101.9900, L501.8820, L500.2500 ####[facility] [address] [place], [address] Hematocrit (Bld) [Volume fraction] 32.0 % Low 37-47 [facility] Comment on above: Performed By: #### L 100.0500, L101.9900, L501.8820, L500.2500 ####[facility] [address] [place], [address] Hemoglobin (Bld) [Mass/Vol] 9.5 g/dL Low 12.0-15.0 [facility] Comment on above: Performed By: #### L 100.0500, L101.9900, L501.8820, L500.2500 ####[facility] [address] [place], [address] MCH (RBC) [Entitic mass] 24.1 pg Low 27.0-32.0 [facility] Comment on above: Performed By: #### L 100.0500, L101.9900, L501.8820, L500.2500 ####[facility] [address] [place], [address] MCHC (RBC) [Mass/Vol] 29.7 g/dL Low 32-36 [facility] Comment on above: Performed By: #### L 100.0500, L101.9900, L501.8820, L500.2500 ####[facility] [address] [place], [address] MCV (RBC) [Entitic vol] 81.0 fL Normal 81-99 [facility] Comment on above: Performed By: #### L 100.0500, L101.9900, L501.8820, L500.2500 ####[facility] [address] [place], [address] Platelet mean volume (Bld) [Entitic vol] 8.1 fL Normal 6.2-12.0 [facility] Comment on above: Performed By: #### L 100.0500, L101.9900, L501.8820, L500.2500 ####[facility] [address] [place], [address] Platelets (Bld) [#/Vol] 424 10*3/uL Normal 150-450 [facility] Comment on above: Performed By: #### L 100.0500, L101.9900, L501.8820, L500.2500 ####[facility] [address] [place], [address] RBC (Bld) [#/Vol] 3.95 10*6/uL Low 4.2-5.4 [facility] Comment on above: Performed By: #### L 100.0500, L101.9900, L501.8820, L500.2500 ####[facility] [address] [place], [address] RDW SD 46.2 fl High 35.1-43.9 [facility] Comment on above: Performed By: #### L 100.0500, L101.9900, L501.8820, L500.2500 ####[facility] [address] [place], [address] WBC (Bld) [#/Vol] 12.3 10*3/uL High 4.4-11.0 [facility] Comment on above: Performed By: #### L 100.0500, L101.9900, L501.8820, L500.2500 ####[facility] [address] [place], [place], [id number] Determination of erythrocyte mean corpuscular volume (MCV)Ordered By: Roman Faith on 06-29-2023 MCV (RBC) [Entitic vol] 81.0 fL 81-99 [facility] Erythrocyte Sed Rateon 06-28 SED RATE 39 mm/hr High 0-30 [facility] Comment on above: Performed By: #### L 100.0500, L101.9900, L501.8820, L500.2500 ####[facility] [address] [place], [place], [address] Erythrocyte distribution wid th ratioOrdered By: Roman Faith on 06-29-2023 Erythrocyte distribution width (RBC) [Ratio] 15.7 % 11.6-14.6 [facility] Erythrocyte distribution wid th standard deviationOrdered By: Roman Faith on 06-29-2023 Erythrocyte distribution width (RBC) [Entitic vol] 46.2 fL 35.1-43.9 [facility] Erythrocyte sedimentation ra teOrdered By: Roman Faith on 06-29-2023 ESR (Bld) [Velocity] 39 mm/h 0-30 [facility] Hematocrit Auto (Bld) [Volum e fraction]Ordered By: Roman Faith on 06-29-2023 Hematocrit (Bld) [Volume fraction] 32.0 % 37-47 [facility] Laboratory - Chemistry and C hemistry - challengeOrdered By: Roman Faith on 06-29-2023 CO2 [Moles/Vol] 28.0 mmol/L 21.0-32.0 [facility] Urea nitrogen/Creatinine [Mass ratio] 23.5 mg/mg 10-20 [facility] - Hematology and Cell countsOrdered By: Roman Faith on 06-29-2023 MCH (RBC) [Entitic mass] 24.1 pg 27.0-32.0 [facility] MCHC (RBC) [Mass/Vol] 29.7 g/dL 32-36 [facility] Platelet mean volume (Bld) [Entitic vol] 8.1 fL 6.2-12.0 [facility] Platelets (Bld) [#/Vol] 424 10*3/uL 150-450 [facility] No Panel InformationOrdered By: Roman Faith on 06-29-2023 Estimated Creatinine Clearance Calc 40.96 ml/min [facility] Estimated GFR (MDRD) Amer 116 mL/min >60 [facility] Comment on above: GFR Calc Estimated GFR (MDRD) Non-Af Amer 95 mL/min >60 [facility] Comment on above: Non- GFR Calc RBC Auto (Bld) [#/Vol]Ordere d By: Roman Faith on 06-29-2023 RBC (Bld) [#/Vol] 3.95 10*6/uL 4.2-5.4 [facility] Serum or plasma calcium surjit urement (mass/volume)Ordered By: Roman Faith on 06-29-2023 Calcium [Mass/Vol] 10.1 mg/dL 8.5-10.1 [facility] Serum or plasma creatinine m easurement (mass/volume)Ordered By: Roman Faith on 06-29-2023 Creatinine [Mass/Vol] 0.64 mg/dL 0.55-1.02 [facility] Comment on above: The validity of the calculated GFR & GFRAA in patients over 70 years has not been determined. Clinical correlation is essential. Serum or plasma trough vanco mycin levelOrdered By: Roman Faith on 06-29-2023 Vancomycin trough [Mass/Vol] 14.9 ug/mL 5.0-15.0 [facility] Comment on above: VANCOMYCIN STANDARED DRUG THERAPY TROUGH LEVEL: 5.0 - 15.0 mg/L VANCOMYCIN HIGH INTENSITY THERAPY TROUGH LEVEL: 15.0 - 20.0 mg/L High Intensity therapy recommended for serious lifethreatening infections include:- Dawatrfovk-Trprkxfsfero-Owtmnzrsf (Ventilator/Healtcare Associated)-Sepsis PLEASE CONTACT PHARMACY SERVICES (#[id number]) FOR INTERPRETATIONOF RESULTS. Serum or plasma urea nitroge n measurement (mass/volume)Ordered By: Roman Faith on 06-29-2023 Urea nitrogen [Mass/Vol] 15 mg/dL 7-18 [facility] Thin prep Papanicolaou smear with manual screeningOrdered By: Roman Faith on 06-29-2023 Thin prep Papanicolaou smear with manual screening 4 5-15 [facility] Vancomycin, Trough Levelon 0 06-29-2023 VANCO, TROUGH 14.9 ug/mL Normal 5.0-15.0 [facility] Comment on above: Order Comment: 1300 Result Comment: VANC OMYCIN STANDARED DRUG THERAPY TROUGH LEVEL: 5.0 - 15.0 mg/LVANCOMYCIN HIGH INTENSITY THERAPY TROUGH LEVEL: 15.0 - 20.0 mg/LHigh Intensity therapy recommended for serious lifethreatening infections include:- Mzartnqvpj-Pnisofqgwtqa-Mloupqdhc (Ventilator/Healtcare Associated)-SepsisPLEASE CONTACT PHARMACY SERVICES (#5881) FOR INTERPRETATIONOF RESULTS. Performed By: #### L 100.0500, L101.9900, L501.8820, L500.2500 ####[facility] [address] [place], [place], [id number] Basic Metabolic Profile (BMP )on 06-22-2023 BUN/CRE 31.5 RATIO High 10-20 [facility] Comment on above: Order Comment: VANC MED TIME UNK Performed By: #### L 501.8820, L500.2500, L101.9900, L100.0500 ####[facility] [address] [place], [place], [id number] [place],Total 9.4 mg/dL Normal 8.5-10.1 [facility] Comment on above: Order Comment: VANC MED TIME UNK Performed By: #### L 501.8820, L500.2500, L101.9900, L100.0500 ####[facility] [address] [place], [place], [id number] Chloride [Moles/Vol] 107 mmol/L Normal 98-107 [facility] Comment on above: Order Comment: VANC MED TIME UNK Performed By: #### L 501.8820, L500.2500, L101.9900, L100.0500 ####[facility] [address] [place], [address] CO2 [Moles/Vol] 27.0 mmol/L Normal 21.0-32.0 [facility] Comment on above: Order Comment: VANC MED TIME UNK Performed By: #### L 501.8820, L500.2500, L101.9900, L100.0500 ####[facility] [address] [place], [address] Creatinine [Mass/Vol] 0.70 mg/dL Normal 0.55-1.02 [facility] Comment on above: Order Comment: VANC MED TIME UNK Result Comment: The validity of the calculated GFR GFRAA in patients over70 years has not been determined. Clinical correlation isessential. Performed By: #### L 501.8820, L500.2500, L101.9900, L100.0500 ####[facility] [address] [place], [address] EST GFR - AA 104 mL/min Normal >60 [facility] Comment on above: Order Comment: VANC MED TIME UNK Result Comment: Afri can Mozambican GFR Calc Performed By: #### L 501.8820, L500.2500, L101.9900, L100.0500 ####[facility] [address] [place], [address] GAP 4 Low 5-15 [facility] Comment on above: Order Comment: VANC MED TIME UNK Performed By: #### L 501.8820, L500.2500, L101.9900, L100.0500 ####[facility] [address] [place], [address] GFR/1.73 sq M.predicted among non-blacks MDRD (S/P/Bld) [Vol rate/Area] 86 mL/min/{1.73_m2} Normal >60 [facility] Comment on above: Order Comment: VANC MED TIME UNK Result Comment: Non- GFR Calc Performed By: #### L 501.8820, L500.2500, L101.9900, L100.0500 ####[facility] [address] [place], [address] Glucose [Mass/Vol] 88 mg/dL Normal 74-106 [facility] Comment on above: Order Comment: [facility] MED TIME UNK Performed By: #### L 501.8820, L500.2500, L101.9900, L100.0500 ####[facility] [address] [place], [address] Potassium [Moles/Vol] 4.0 mmol/L Normal 3.5-5.1 [facility] Comment on above: Order Comment: [facility] MED TIME UNK Performed By: #### L 501.8820, L500.2500, L101.9900, L100.0500 ####[facility] [address] [place], [address] Sodium [Moles/Vol] 138 mmol/L Normal 136-145 [facility] Comment on above: Order Comment: VANC MED TIME UNK Performed By: #### L 501.8820, L500.2500, L101.9900, L100.0500 ####[facility] [address] [place], [address] Urea nitrogen [Mass/Vol] 22 mg/dL High 7-18 [facility] Comment on above: Order Comment: VANC MED TIME UNK Performed By: #### L 501.8820, L500.2500, L101.9900, L100.0500 ####[facility] [address] [place], [address] Basophil percentageOrdered B y: Roman Faith on 06-22-2023 Chloride [Moles/Vol] 107 mmol/L 98-107 [facility] Glucose [Mass/Vol] 88 mg/dL 74-106 [facility] Hemoglobin (Bld) [Mass/Vol] 8.9 g/dL 12.0-15.0 [facility] Potassium [Moles/Vol] 4.0 mmol/L 3.5-5.1 [facility] Sodium [Moles/Vol] 138 mmol/L 136-145 [facility] WBC (Bld) [#/Vol] 10.7 10*3/uL 4.4-11.0 [facility] CBC-Complete Blood Cnt No Di ffon 06-22-2023 Erythrocyte distribution width (RBC) [Ratio] 16.0 % High 11.6-14.6 [facility] Comment on above: Performed By: #### L 501.8820, L500.2500, L101.9900, L100.0500 ####[facility] [address] [place], [address] Hematocrit (Bld) [Volume fraction] 29.3 % Low 37-47 [facility] Comment on above: Performed By: #### L 501.8820, L500.2500, L101.9900, L100.0500 ####[facility] [address] [place], [address] Hemoglobin (Bld) [Mass/Vol] 8.9 g/dL Low 12.0-15.0 [facility] Comment on above: Performed By: #### L 501.8820, L500.2500, L101.9900, L100.0500 ####[facility] [address] [place], [address] MCH (RBC) [Entitic mass] 24.5 pg Low 27.0-32.0 [facility] Comment on above: Performed By: #### L 501.8820, L500.2500, L101.9900, L100.0500 ####[facility] [address] [place], [address] MCHC (RBC) [Mass/Vol] 30.4 g/dL Low 32-36 [facility] Comment on above: Performed By: #### L 501.8820, L500.2500, L101.9900, L100.0500 ####[facility] [address] [place], [address] MCV (RBC) [Entitic vol] 80.5 fL Low 81-99 [facility] Comment on above: Performed By: #### L 501.8820, L500.2500, L101.9900, L100.0500 ####[facility] [address] [place], [address] Platelet mean volume (Bld) [Entitic vol] 8.2 fL Normal 6.2-12.0 [facility] Comment on above: Performed By: #### L 501.8820, L500.2500, L101.9900, L100.0500 ####[facility] [address] [place], [address] Platelets (Bld) [#/Vol] 485 10*3/uL High 150-450 [facility] Comment on above: Performed By: #### L 501.8820, L500.2500, L101.9900, L100.0500 ####[facility] [address] [place], [address] RBC (Bld) [#/Vol] 3.64 10*6/uL Low 4.2-5.4 [facility] Comment on above: Performed By: #### L 501.8820, L500.2500, L101.9900, L100.0500 ####[facility] [address] [place], [address] RDW SD 46.8 fl High 35.1-43.9 [facility] Comment on above: Performed By: #### L 501.8820, L500.2500, L101.9900, L100.0500 ####[facility] [address] [place], [address] WBC (Bld) [#/Vol] 10.7 10*3/uL Normal 4.4-11.0 [facility] Comment on above: Performed By: #### L 501.8820, L500.2500, L101.9900, L100.0500 ####[facility] [address] [place], [place], [address] Determination of erythrocyte mean corpuscular volume (MCV)Ordered By: Roman Faith on 06-22-2023 MCV (RBC) [Entitic vol] 80.5 fL 81-99 [facility] ESRon 06-22-2023 Erythrocyte Sed Rate 38 mm/hr High 0-30 [facility], [facility] ([place]) Comment on above: Performed By: #### E SR #### [address] [address] Erythrocyte Sed Rateon 06-21 SED RATE 38 mm/hr High 0-30 [facility] Comment on above: Result Comment: TESTING PERFORMED AT [facility]. ORIGINAL REPORT ON FILE IN LAB CONTAINS ADDITIONAL TEST SITE INFORMATION. ____ Performed By: #### L 501.8820, L500.2500, L101.9900, L100.0500 ####[facility] [address] [place], [place], [address] Erythrocyte distribution wid th ratioOrdered By: Roman Faith on 06-22-2023 Erythrocyte distribution width (RBC) [Ratio] 16.0 % 11.6-14.6 [facility] Erythrocyte distribution wid th standard deviationOrdered By: Roman Faith on 06-22-2023 Erythrocyte distribution width (RBC) [Entitic vol] 46.8 fL 35.1-43.9 [facility] Erythrocyte sedimentation ra teOrdered By: Roman Faith on 06-22-2023 ESR (Bld) [Velocity] 38 mm/h 0-30 [facility] Comment on above: TESTING PERFORMED AT [facility]. ORIGINAL REPORT ON FILE IN LAB CONTAINS ADDITIONAL TEST SITE INFORMATION. ____ Hematocrit Auto (Bld) [Volum e fraction]Ordered By: Roman Faith on 06-22-2023 Hematocrit (Bld) [Volume fraction] 29.3 % 37-47 [facility] LABORATORYOrdered By: Gunnar Levin on 06-22-2023 ESR Photometric method (Bld) [Velocity] 38 mm/hr High 0 - 30 mm/hr AO Man Heme SS Laboratory - Chemistry and C hemistry - challengeOrdered By: Roman Faith on 06-22-2023 CO2 [Moles/Vol] 27.0 mmol/L 21.0-32.0 [facility] Urea nitrogen/Creatinine [Mass ratio] 31.5 mg/mg 10-20 [facility] Laboratory - Hematology and Cell countsOrdered By: Roman Faith on 06-22-2023 MCH (RBC) [Entitic mass] 24.5 pg 27.0-32.0 [facility] MCHC (RBC) [Mass/Vol] 30.4 g/dL 32-36 [facility] Platelet mean volume (Bld) [Entitic vol] 8.2 fL 6.2-12.0 [facility] Platelets (Bld) [#/Vol] 485 10*3/uL 150-450 [facility] No Panel InformationOrdered By: Roman Faith on 06-22-2023 Estimated GFR (MDRD) Amer 104 mL/min >60 [facility] Comment on above: GFR Calc Estimated GFR (MDRD) Non-Af Amer 86 mL/min >60 [facility] Comment on above: Non- GFR Calc RBC Auto (Bld) [#/Vol]Ordere d By: Roman Faith on 06-22-2023 RBC (Bld) [#/Vol] 3.64 10*6/uL 4.2-5.4 [facility] or plasma calcium surjit urement (mass/volume)Ordered By: Roman Faith on 06-22-2023 Calcium [Mass/Vol] 9.4 mg/dL 8.5-10.1 [facility] Serum or plasma creatinine m easurement (mass/volume)Ordered By: Roman Faith on 06-22-2023 Creatinine [Mass/Vol] 0.70 mg/dL 0.55-1.02 [facility] Comment on above: The validity of the calculated GFR & GFRAA in patients over 70 years has not been determined. Clinical correlation is essential. Serum or plasma trough vanco mycin levelOrdered By: Roman Faith on 06-22-2023 Vancomycin trough [Mass/Vol] 13.9 ug/mL 5.0-15.0 [facility] Comment on above: VANCOMYCIN STANDARED DRUG THERAPY TROUGH LEVEL: 5.0 - 15.0 mg/L VANCOMYCIN HIGH INTENSITY THERAPY TROUGH LEVEL: 15.0 - 20.0 mg/L High Intensity therapy recommended for serious lifethreatening infections include:- Iqjqubtiyn-Vtugyrehrsba-Qmjkagrrp (Ventilator/Healtcare Associated)-Sepsis PLEASE CONTACT PHARMACY SERVICES (#[id number]) FOR INTERPRETATIONOF RESULTS. Serum or plasma urea nitroge n measurement (mass/volume)Ordered By: Roman Faith on 06-22-2023 Urea nitrogen [Mass/Vol] 22 mg/dL 7-18 [facility] Thin prep Papanicolaou smear with manual screeningOrdered By: Roman Faith on 06-22-2023 Thin prep Papanicolaou smear with manual screening 4 5-15 [facility] Vancomycin, Trough Levelon 0 06-22-2023 VANCO, TROUGH 13.9 ug/mL Normal 5.0-15.0 [facility] Comment on above: Order Comment: VANC MED TIME [id number] Result Comment: VANC OMYCIN STANDARED DRUG THERAPY TROUGH LEVEL: 5.0 - 15.0 mg/LVANCOMYCIN HIGH INTENSITY THERAPY TROUGH LEVEL: 15.0 - 20.0 mg/LHigh Intensity therapy recommended for serious lifethreatening infections include:- Mqwguyiory-Mlpktqecvnyt-Qqnyfzpdi (Ventilator/Healtcare Associated)-SepsisPLEASE CONTACT PHARMACY SERVICES (#[id number]) FOR INTERPRETATIONOF RESULTS. Performed By: #### L 501.8820, L500.2500, L101.9900, L100.0500 ####[facility] [address] [place], [address] Basic Metabolic Profile (BMP )on 06-21-2023 BUN Normal 7-18 [facility] Comment on above: Result Comment: @PAT IENT WILL BE DRAWN AT LATER DATE. PER ONC NURSE Performed By: #### L 101.9900, L100.0500, L500.2500 ####[facility] [address] [place], [address] BUN/CRE Normal 10-20 [facility] Comment on above: Result Comment: @PAT IENT WILL BE DRAWN AT LATER DATE. PER ONC NURSE Performed By: #### L 101.9900, L100.0500, L500.2500 ####[facility] [address] [place], [address] CA,Total Normal 8.5-10.1 [facility] Comment on above: Result Comment: @PAT IENT WILL BE DRAWN AT LATER DATE. PER ONC NURSE Performed By: #### L 101.9900, L100.0500, L500.2500 ####[facility] [address] [place], [address] CL Normal 98-107 [facility] Comment on above: Result Comment: @PAT IENT WILL BE DRAWN AT LATER DATE. PER ONC NURSE Performed By: #### L 101.9900, L100.0500, L500.2500 ####[facility] [address] [place], [address] CO2 Normal 21.0-32.0 [facility] Comment on above: Result Comment: @PAT IENT WILL BE DRAWN AT LATER DATE. PER ONC NURSE Performed By: #### L 101.9900, L100.0500, L500.2500 ####[facility] [address] [place], [address] CREAT,SERUM Normal 0.55-1.02 [facility] Comment on above: Result Comment: @PAT IENT WILL BE DRAWN AT LATER DATE. PER ONC NURSE Performed By: #### L 101.9900, L100.0500, L500.2500 ####[facility] [address] [place], [address] EST GFR Normal >60 [facility] Comment on above: Result Comment: @PAT IENT WILL BE DRAWN AT LATER DATE. PER ONC NURSE Performed By: #### L 101.9900, L100.0500, L500.2500 ####[facility] [address] [place], [address] EST GFR - AA Normal >60 [facility] Comment on above: Result Comment: @PAT IENT WILL BE DRAWN AT LATER DATE. PER ONC NURSE Performed By: #### L 101.9900, L100.0500, L500.2500 ####[facility] [address] [place], [address] GAP Normal 5-15 [facility] Comment on above: Result Comment: @PAT IENT WILL BE DRAWN AT LATER DATE. PER ONC NURSE Performed By: #### L 101.9900, L100.0500, L500.2500 ####[facility] [address] [place], [address] GLU Normal 74-106 [facility] Comment on above: Result Comment: @PAT IENT WILL BE DRAWN AT LATER DATE. PER ONC NURSE Performed By: #### L 101.9900, L100.0500, L500.2500 ####[facility] [address] [place], [address] Potassium Normal 3.5-5.1 [facility] Comment on above: Result Comment: @PAT IENT WILL BE DRAWN AT LATER DATE. PER ONC NURSE Performed By: #### L 101.9900, L100.0500, L500.2500 ####[facility] [address] [place], [address] Basic Metabolic Profile (BMP) Normal 136-145 [facility] Comment on above: Result Comment: @PAT IENT WILL BE DRAWN AT LATER DATE. PER ONC NURSE Performed By: #### L 101.9900, L100.0500, L500.2500 ####[facility] [address] [place], [address] CBC-Complete Blood Cnt No Di ffon 06-21-2023 HCT Normal 37-47 [facility] Comment on above: Result Comment: @PAT IENT WILL BE DRAWN AT LATER DATE. PER ONC NURSE Performed By: #### L 101.9900, L100.0500, L500.2500 ####[facility] [address] [place], [address] HGB Normal 12.0-15.0 [facility] Comment on above: Result Comment: @PAT IENT WILL BE DRAWN AT LATER DATE. PER ONC NURSE Performed By: #### L 101.9900, L100.0500, L500.2500 ####[facility] [address] [place], [address] MCH Normal 27.0-32.0 [facility] Comment on above: Result Comment: @PAT IENT WILL BE DRAWN AT LATER DATE. PER ONC NURSE Performed By: #### L 101.9900, L100.0500, L500.2500 ####[facility] [address] [place], [address] MCHC Normal 32-36 [facility] Comment on above: Result Comment: @PAT IENT WILL BE DRAWN AT LATER DATE. PER ONC NURSE Performed By: #### L 101.9900, L100.0500, L500.2500 ####[facility] [address] [place], [address] MCV Normal 81-99 [facility] Comment on above: Result Comment: @PAT IENT WILL BE DRAWN AT LATER DATE. PER ONC NURSE Performed By: #### L 101.9900, L100.0500, L500.2500 ####[facility] [address] [place], [address] PLT Normal 150-450 [facility] Comment on above: Result Comment: @PAT IENT WILL BE DRAWN AT LATER DATE. PER ONC NURSE Performed By: #### L 101.9900, L100.0500, L500.2500 ####[facility] [address] [place], [address] RBC Normal 4.2-5.4 [facility] Comment on above: Result Comment: @PAT IENT WILL BE DRAWN AT LATER DATE. PER ONC NURSE Performed By: #### L 101.9900, L100.0500, L500.2500 ####[facility] [address] [place], [address] RDW CV Normal 11.6-14.6 [facility] Comment on above: Result Comment: @PAT IENT WILL BE DRAWN AT LATER DATE. PER ONC NURSE Performed By: #### L 101.9900, L100.0500, L500.2500 ####[facility] [address] [place], [address] RDW SD Normal 35.1-43.9 [facility] Comment on above: Result Comment: @PAT IENT WILL BE DRAWN AT LATER DATE. PER ONC NURSE Performed By: #### L 101.9900, L100.0500, L500.2500 ####[facility] [address] [place], [address] WBC Normal 4.4-11.0 [facility] Comment on above: Result Comment: @PAT IENT WILL BE DRAWN AT LATER DATE. PER ONC NURSE Performed By: #### L 101.9900, L100.0500, L500.2500 ####[facility] [address] [place], [address] Erythrocyte Sed Rateon 06-20 SED RATE Normal 0-30 [facility] Comment on above: Result Comment: @PAT IENT WILL BE DRAWN AT LATER DATE. PER ONC NURSE Performed By: #### L 101.9900, L100.0500, L500.2500 ####[facility] [address] [place], [address] Basic Metabolic Profile (BMP )on 06-14-2023 BUN/CRE 26.9 RATIO High 10-20 [facility] Comment on above: Order Comment: VANC Performed By: #### L 101.9900, L500.2500, L501.8820, L100.0500 ####[facility] [address] [place], [address] CA,Total 9.7 mg/dL Normal 8.5-10.1 [facility] Comment on above: Order Comment: VANC Performed By: #### L 101.9900, L500.2500, L501.8820, L100.0500 ####[facility] [address] [place], [address] Chloride [Moles/Vol] 105 mmol/L Normal 98-107 [facility] Comment on above: Order Comment: VANC Performed By: #### L 101.9900, L500.2500, L501.8820, L100.0500 ####[facility] [address] [place], [address] CO2 [Moles/Vol] 28.0 mmol/L Normal 21.0-32.0 [facility] Comment on above: Order Comment: VANC Performed By: #### L 101.9900, L500.2500, L501.8820, L100.0500 ####[facility] [address] [place], [address] Creatinine [Mass/Vol] 0.60 mg/dL Normal 0.55-1.02 [facility] Comment on above: Order Comment: VANC Result Comment: The validity of the calculated GFR GFRAA in patients over70 years has not been determined. Clinical correlation isessential. Performed By: #### L 101.9900, L500.2500, L501.8820, L100.0500 ####[facility] [address] [place], [address] EST GFR - AA 125 mL/min Normal >60 [facility] Comment on above: Order Comment: VANC Result Comment: Afri can Mozambican GFR Calc Performed By: #### L 101.9900, L500.2500, L501.8820, L100.0500 ####[facility] [address] [place], [address] GAP 8 Normal 5-15 [facility] Comment on above: Order Comment: VANC Performed By: #### L 101.9900, L500.2500, L501.8820, L100.0500 ####[facility] [address] [place], [address] GFR/1.73 sq M.predicted among non-blacks MDRD (S/P/Bld) [Vol rate/Area] 103 mL/min/{1.73_m2} Normal >60 [facility] Comment on above: Order Comment: VANC Result Comment: Non- GFR Calc Performed By: #### L 101.9900, L500.2500, L501.8820, L100.0500 ####[facility] [address] [place], [address] Glucose [Mass/Vol] 111 mg/dL High 74-106 [facility] Comment on above: Order Comment: VANC Result Comment: Fast ing Glucose result from 100 to 125 mg/dLsuggests IMPAIRED HOMEOSTASIS per A.D.A. criteria. Performed By: #### L 101.9900, L500.2500, L501.8820, L100.0500 ####[facility] [address] [place], [address] Potassium [Moles/Vol] 4.3 mmol/L Normal 3.5-5.1 [facility] Comment on above: Order Comment: VANC Performed By: #### L 101.9900, L500.2500, L501.8820, L100.0500 ####[facility] [address] [place], [address] Sodium [Moles/Vol] 141 mmol/L Normal 136-145 [facility] Comment on above: Order Comment: VANC Performed By: #### L 101.9900, L500.2500, L501.8820, L100.0500 ####[facility] [address] [place], [address] Urea nitrogen [Mass/Vol] 16 mg/dL Normal 7-18 [facility] Comment on above: Order Comment: VANC Performed By: #### L 101.9900, L500.2500, L501.8820, L100.0500 ####[facility] [address] [place], [address] Basophil percentageOrdered B y: Roman Faith on 06-14-2023 Chloride [Moles/Vol] 105 mmol/L 98-107 [facility] Glucose [Mass/Vol] 111 mg/dL 74-106 [facility] Comment on above: Fasting Glucose resu lt from 100 to 125 mg/dL suggests IMPAIRED HOMEOSTASIS per A.D.A. criteria. Hemoglobin (Bld) [Mass/Vol] 8.2 g/dL 12.0-15.0 [facility] Potassium [Moles/Vol] 4.3 mmol/L 3.5-5.1 [facility] Sodium [Moles/Vol] 141 mmol/L 136-145 [facility] WBC (Bld) [#/Vol] 16.3 10*3/uL 4.4-11.0 [facility] CBC-Complete Blood Cnt No Di ffon 06-14-2023 Erythrocyte distribution width (RBC) [Ratio] 15.5 % High 11.6-14.6 [facility] Comment on above: Performed By: #### L 101.9900, L500.2500, L501.8820, L100.0500 ####[facility] [address] [place], [address] Hematocrit (Bld) [Volume fraction] 26.8 % Low 37-47 [facility] Comment on above: Performed By: #### L 101.9900, L500.2500, L501.8820, L100.0500 ####[facility] [address] [place], [address] Hemoglobin (Bld) [Mass/Vol] 8.2 g/dL Low 12.0-15.0 [facility] Comment on above: Performed By: #### L 101.9900, L500.2500, L501.8820, L100.0500 ####[facility] [address] [place], [address] MCH (RBC) [Entitic mass] 24.6 pg Low 27.0-32.0 [facility] Comment on above: Performed By: #### L 101.9900, L500.2500, L501.8820, L100.0500 ####[facility] [address] [place], [address] MCHC (RBC) [Mass/Vol] 30.6 g/dL Low 32-36 [facility] Comment on above: Performed By: #### L 101.9900, L500.2500, L501.8820, L100.0500 ####[facility] [address] [place], [address] MCV (RBC) [Entitic vol] 80.5 fL Low 81-99 [facility] Comment on above: Performed By: #### L 101.9900, L500.2500, L501.8820, L100.0500 ####[facility] [address] [place], [address] Platelet mean volume (Bld) [Entitic vol] 8.3 fL Normal 6.2-12.0 [facility] Comment on above: Performed By: #### L 101.9900, L500.2500, L501.8820, L100.0500 ####[facility] [address] [place], [address] Platelets (Bld) [#/Vol] 347 10*3/uL Normal 150-450 [facility] Comment on above: Performed By: #### L 101.9900, L500.2500, L501.8820, L100.0500 ####[facility] [address] [place], [address] RBC (Bld) [#/Vol] 3.33 10*6/uL Low 4.2-5.4 [facility] Comment on above: Performed By: #### L 101.9900, L500.2500, L501.8820, L100.0500 ####[facility] [address] [place], [address] RDW SD 45.5 fl High 35.1-43.9 [facility] Comment on above: Performed By: #### L 101.9900, L500.2500, L501.8820, L100.0500 ####[facility] [address] [place], [address] WBC (Bld) [#/Vol] 16.3 10*3/uL High 4.4-11.0 [facility] Comment on above: Performed By: #### L 101.9900, L500.2500, L501.8820, L100.0500 ####[facility] [address] [place], [place], [address] Determination of erythrocyte mean corpuscular volume (MCV)Ordered By: Roman Faith on 06-14-2023 MCV (RBC) [Entitic vol] 80.5 fL 81-99 [facility] Erythrocyte Sed Rateon 06-13 SED RATE 41 mm/hr High 0-30 [facility] Comment on above: Performed By: #### L 101.9900, L500.2500, L501.8820, L100.0500 ####[facility] [address] [place], [id number] Erythrocyte distribution wid th ratioOrdered By: Roman Faith on 06-14-2023 Erythrocyte distribution width (RBC) [Ratio] 15.5 % 11.6-14.6 [facility] Erythrocyte distribution wid th standard deviationOrdered By: Roman Faith on 06-14-2023 Erythrocyte distribution width (RBC) [Entitic vol] 45.5 fL 35.1-43.9 [facility] Erythrocyte sedimentation ra teOrdered By: Roman Faith on 06-14-2023 ESR (Bld) [Velocity] 41 mm/h 0-30 [facility] Hematocrit Auto (Bld) [Volum e fraction]Ordered By: Roman Faith on 06-14-2023 Hematocrit (Bld) [Volume fraction] 26.8 % 37-47 [facility] Laboratory - Chemistry and C hemistry - challengeOrdered By: Roman Faith on 06-14-2023 CO2 [Moles/Vol] 28.0 mmol/L 21.0-32.0 [facility] Urea nitrogen/Creatinine [Mass ratio] 26.9 mg/mg 10-20 [facility] - Hematology and Cell countsOrdered By: Roman Faith on 06-14-2023 MCH (RBC) [Entitic mass] 24.6 pg 27.0-32.0 [facility] MCHC (RBC) [Mass/Vol] 30.6 g/dL 32-36 [facility] Platelet mean volume (Bld) [Entitic vol] 8.3 fL 6.2-12.0 [facility] Platelets (Bld) [#/Vol] 347 10*3/uL 150-450 [facility] No Panel InformationOrdered By: Roman Faith on 06-14-2023 Estimated GFR (MDRD) Amer 125 mL/min >60 [facility] Comment on above: GFR Calc Estimated GFR (MDRD) Non-Af Amer 103 mL/min >60 [facility] Comment on above: Non- GFR Calc RBC Auto (Bld) [#/Vol]Ordere d By: Roman Faith on 06-14-2023 RBC (Bld) [#/Vol] 3.33 10*6/uL 4.2-5.4 [facility] Serum or plasma calcium surjit urement (mass/volume)Ordered By: Roman Faith on 06-14-2023 Calcium [Mass/Vol] 9.7 mg/dL 8.5-10.1 [facility] Serum or plasma creatinine m easurement (mass/volume)Ordered By: Roman Faith on 06-14-2023 Creatinine [Mass/Vol] 0.60 mg/dL 0.55-1.02 [facility] Comment on above: The validity of the calculated GFR & GFRAA in patients over 70 years has not been determined. Clinical correlation is essential. Serum or plasma trough vanco mycin levelOrdered By: Roman Faith on 06-14-2023 Vancomycin trough [Mass/Vol] 13.1 ug/mL 5.0-15.0 [facility] Comment on above: VANCOMYCIN STANDARED DRUG THERAPY TROUGH LEVEL: 5.0 - 15.0 mg/L VANCOMYCIN HIGH INTENSITY THERAPY TROUGH LEVEL: 15.0 - 20.0 mg/L High Intensity therapy recommended for serious lifethreatening infections include:- Wmufbhgddy-Kpvmqsdefxnu-Ukndmiwzp (Ventilator/Healtcare Associated)-Sepsis PLEASE CONTACT PHARMACY SERVICES (#2542) FOR INTERPRETATIONOF RESULTS. Serum or plasma urea nitroge n measurement (mass/volume)Ordered By: Roman Faith on 06-14-2023 Urea nitrogen [Mass/Vol] 16 mg/dL 7-18 [facility] Thin prep Papanicolaou smear with manual screeningOrdered By: Roman Faith on 06-14-2023 Thin prep Papanicolaou smear with manual screening 8 5-15 [facility] Vancomycin, Trough Levelon 0 06-14-2023 VANCO, TROUGH 13.1 ug/mL Normal 5.0-15.0 [facility] Comment on above: Order Comment: 1330 Result Comment: VANC OMYCIN STANDARED DRUG THERAPY TROUGH LEVEL: 5.0 - 15.0 mg/LVANCOMYCIN HIGH INTENSITY THERAPY TROUGH LEVEL: 15.0 - 20.0 mg/LHigh Intensity therapy recommended for serious lifethreatening infections include:- Hdxmdanwsd-Mpozchiuridn-Tscnisqwf (Ventilator/Healtcare Associated)-SepsisPLEASE CONTACT PHARMACY SERVICES (#9839) FOR INTERPRETATIONOF RESULTS. Performed By: #### L 101.9900, L500.2500, L501.8820, L100.0500 ####[facility] [id number] [place], [address] 36on 06-11-2023 36 S: Patient's spouse- Jose Luis spoke with [facility] nurse regarding unable to care for patient's picc line and antibiotic infusion at home. B: Onset of symptoms/concern yesterday. A: Jose Luis states patient was discharged from [facility] yesterday with picc line for IV [...] get the antibiotic. R: Sp[facility] [place] [facility] . Patient's spouse transferred to them for further assistance. No further needs at this time. Reason for Disposition General information question, no triage required and triager able to answer question Protocols used: Information Only Call - [facility] 06-10-2023 ED NOTE HNO ID: [id number] Author: GOSIA LANGSTON, RN Service: ? Author Type: Registered Nurse Type: ED Notes Filed: 06/10/2023 23:09 Note Text: PICC line flushed and pulled back, no complications. Education on IV vancomycin administration provided to daughter. [facility] ED NOTE HNO ID: [id number] Author: REE GONZALEZ RN Service: ? Author Type: Registered Nurse Type: ED Notes Filed: 06/10/2023 18:51 Note Text: Family cannot care for hussein [facility] ED NOTE HNO ID: [id number] Author: REE GONZALEZ RN Service: ? Author Type: Registered Nurse Type: ED Notes Filed: 06/10/2023 18:41 Note Text: Picc line was wet after showering [facility] ED PROV NOTEon 06-10-2023 ED PROV NOTE HNO ID: [id number] Author: LEA SCOTT PA-C Service: ? Author Type: Physician Fixed Income Director Type: ED Provider Notes Filed: 06/10/2023 [...] interpretation(s) Proced (more content not included)... Normal [facility] ED Triage Noteon 06-10-2023 ED Triage Note HNO ID: [id number] Author: MELISSA MACK APRN.AUTOMOBILE WRECKER Service: ? Author Type: Nurse Practitioner Type: [...] placed in a facility. SIGNATURE: Melissa Mack APRN.AUTOMOBILE WRECKER Normal [facility] Basic metabolic 2000 panelon 06-09-2023 Anion gap [Moles/Vol] mmol/L Low 5-16 [facility] Comment on above: Order Comment: Speci men Type: BLOOD SPECIMENOrdering Facility: [facility] Address: [address] [place] [address] Performed By: #### 2 4321-2 ####[facility] LABORATORYCLIA [id number] [place] [address] [place] Calcium [Mass/Vol] 8.9 mg/dL Normal 8.5-10.5 [facility] Comment on above: Order Comment: Speci men Type: BLOOD SPECIMENOrdering Facility: [facility] Address: [address] [place] [address] Performed By: #### 2 4321-2 ####[facility] LABORATORYCLIA [id number] [place] [address] [place] Chloride [Moles/Vol] 109 mmol/L High 98-107 [facility] Comment on above: Order Comment: Speci men Type: BLOOD SPECIMENOrdering Facility: [facility] Address: [address] [place] [address] Performed By: #### 2 4321-2 ####[facility] LABORATORYCLIA [id number] [place] [address] [place] CO2 [Moles/Vol] 26 mmol/L Normal 21-32 [facility] Comment on above: Order Comment: Speci men Type: BLOOD SPECIMENOrdering Facility: [facility] Address: [address] [place] [address] Performed By: #### 2 4321-2 ####[facility] LABORATORYCLIA [id number] [place] [address] [place] Creatinine [Mass/Vol] 0.59 mg/dL Normal 0.51-0.95 [facility] Comment on above: Order Comment: Speci men Type: BLOOD SPECIMENOrdering Facility: [facility] Address: [address] [place] [address] Result Comment: Caron ents receiving either N-Acetylcysteine (NAC) or Metamizole prior to venipuncture, may have falsely depressed results. Performed By: #### 2 4321-2 ####[facility] LABORATORYCLIA [id number] [place] [id number] [place] Creatinine and Glomerular filtration rate.predicted panel (S/P/Bld) 92 mL/min/1.73m??? Normal >=60 [facility] Comment on above: Order Comment: Anny hong Type: BLOOD SPECIMENOrdering Facility: [facility] Address: [address] [place] [address] Result Comment: Neda mated Glomerular Filtration Rate [...] actual GFR. Performed By: #### 2 4321-2 ####[facility]ORATORYCLIA [id number] [place] [address] [place] Glucose [Mass/Vol] 110 mg/dL High 70-100 [facility] Comment on above: Order Comment: Anny hong Type: BLOOD SPECIMENOrdering Facility: [facility] Address: [address] [place] [address] Result Comment: The [place] Diabetes Association (ADA) provides guidance for cutoff [...] Standards of Medical Care in Diabetes 2016, [place] [employer]. Diabetes Care. 2016.39(Suppl 1). Results may be falsely elevated after the administration of Sulfapyridine. Results may be falsely depressed after the administration of Sulfasalazine. Performed By: #### 2 4321-2 ####[facility] LABORATORYCLIA [id number] [address] [place] Potassium [Moles/Vol] 4.7 mmol/L Normal 3.5-5.1 [facility] Comment on above: Order Comment: Speci men Type: BLOOD SPECIMENOrdering Facility: [facility] Address: [address] [place] [address] Performed By: #### 2 4321-2 ####[facility]ORATORYCLIA [id number] [address] STATES OF [facility] Sodium [Moles/Vol] 137 mmol/L Normal 136-145 [facility] Comment on above: Order Comment: Speci men Type: BLOOD SPECIMENOrdering Facility: [facility] Address: [address] [place] [address] Performed By: #### 2 4321-2 ####[facility]ORATORYCLIA [id number] [address] [place] Urea nitrogen [Mass/Vol] 24 mg/dL Normal 7-26 [facility] Comment on above: Order Comment: Speci men Type: BLOOD SPECIMENOrdering Facility: [facility] Address: [address] [place] [address] Performed By: #### 2 4321-2 ####[facility]ORATORYCLIA [id number] [address] [place] CBC W Auto Differential pane l (Bld)on 06-09-2023 Basophils (Bld) [#/Vol] 10*3/uL Normal <0.11 [facility] Comment on above: Order Comment: Speci men Type: BLOOD SPECIMENOrdering Facility: [facility] Address: [address] [place] [address] Performed By: #### 5 7021-8 ####[facility]ORATORYCLIA [id number] [address] STATES [facility] Basophils/100 WBC (Bld) 0.2 % Normal [facility] Comment on above: Order Comment: Speci men Type: BLOOD SPECIMENOrdering Facility: [facility] Address: [address] [place] [address] Performed By: #### 5 7021-8 ####[facility]ORATORYCLIA [id number] [address] [place] Differential cell count method Nom (Bld) Auto Normal [facility] Comment on above: Order Comment: Speci men Type: BLOOD SPECIMENOrdering Facility: [facility] Address: [address] [place] [address] Performed By: #### 5 7021-8 ####[facility]ORATORYCLIA [id number] [place] [address] [place] Eosinophils (Bld) [#/Vol] 0.09 10*3/uL Normal <0.46 [facility] Comment on above: Order Comment: Speci men Type: BLOOD SPECIMENOrdering Facility: [facility] Address: [address] [place] [address] Performed By: #### 5 7021-8 ####[facility] LABORATORYCLIA [id number] [address] Eosinophils/100 WBC (Bld) 0.7 % Normal [facility] Comment on above: Order Comment: Speci men Type: BLOOD SPECIMENOrdering Facility: [facility] Address: [address] [place] [address] Performed By: #### 5 7021-8 ####[facility]ORATORYCLIA [id number] [address] [place] Erythrocyte distribution width (RBC) [Ratio] 15.2 % High 11.5-15.0 [facility] Comment on above: Order Comment: Speci men Type: BLOOD SPECIMENOrdering Facility: [facility] Address: [address] [place] [address] Performed By: #### 5 7021-8 ####[facility]ORATORYCLIA [id number] [place] [address] [place] Hematocrit (Bld) [Volume fraction] 23.8 % Low 36.0-46.0 [facility] Comment on above: Order Comment: Speci men Type: BLOOD SPECIMENOrdering Facility: [facility] Address: [address] [place] [address] Performed By: #### 5 7021-8 ####[facility]ORATORYCLIA [id number] [place] [address] [place] Hemoglobin (Bld) [Mass/Vol] 7.6 g/dL Low 11.5-15.5 [facility] Comment on above: Order Comment: Speci men Type: BLOOD SPECIMENOrdering Facility: [facility] Address: [address] [place] [address] Performed By: #### 5 7021-8 ####[facility]ORATORYCLIA [id number] [place] [address] [place] Immature granulocytes (Bld) [#/Vol] 0.08 10*3/uL Normal <0.10 [facility] Comment on above: Order Comment: Speci men Type: BLOOD SPECIMENOrdering Facility: [facility] Address: [address] [place] [address] Performed By: #### 5 7021-8 ####[facility]ORATORYCLIA [id number] [place] [address] [place] Immature granulocytes/100 WBC (Bld) 0.6 % Normal [facility] Comment on above: Order Comment: Speci men Type: BLOOD SPECIMENOrdering Facility: [facility] Address: [address] [place] [address] Performed By: #### 5 7021-8 ####[facility]ORATORYCLIA [id number] [place] [address] [place] Lymphocytes (Bld) [#/Vol] 2.61 10*3/uL Normal 1.00-4.00 [facility] Comment on above: Order Comment: Speci men Type: BLOOD SPECIMENOrdering Facility: [facility] Address: [address] [place] [address] Performed By: #### 5 7021-8 ####[facility] LABORATORYCLIA [id number] [address] [place] Lymphocytes/100 WBC (Bld) 20.2 % Normal [facility] Comment on above: Order Comment: Speci men Type: BLOOD SPECIMENOrdering Facility: [facility] Address: [address] [place] [address] Performed By: #### 5 7021-8 ####[facility]ORATORYCLIA [id number] [address] [place] MCH (RBC) [Entitic mass] 25.4 pg Low 26.0-34.0 [facility] Comment on above: Order Comment: Speci men Type: BLOOD SPECIMENOrdering Facility: [facility] Address: [address] [place] [address] Performed By: #### 5 7021-8 ####[facility]ORATORYCLIA [id number] [address] STATES [facility] MCHC (RBC) [Mass/Vol] 31.9 g/dL Normal 30.5-36.0 [facility] Comment on above: Order Comment: Speci men Type: BLOOD SPECIMENOrdering Facility: [facility] Address: [address] [place] [address] Performed By: #### 5 7021-8 ####[facility]ORATORYCLIA [id number] [address] [place] MCV (RBC) [Entitic vol] 79.6 fL Low 80.0-100.0 [facility] Comment on above: Order Comment: Speci men Type: BLOOD SPECIMENOrdering Facility: [facility] Address: [address] [place] [address] Performed By: #### 5 7021-8 ####[facility]ORATORYCLIA [id number] [address] Monocytes (Bld) [#/Vol] 0.87 10*3/uL High <0.87 [facility] Comment on above: Order Comment: Speci men Type: BLOOD SPECIMENOrdering Facility: [facility] Address: [address] [place] [address] Performed By: #### 5 7021-8 ####[facility] LABORATORYCLIA [id number] [place] [id number] [place] Monocytes/100 WBC (Bld) 6.7 % Normal [facility] Comment on above: Order Comment: Speci men Type: BLOOD SPECIMENOrdering Facility: [facility] Address: [address] [place] [address] Performed By: #### 5 7021-8 ####[facility]ORATORYCLIA [id number] [place] [address] [place] Neutrophils (Bld) [#/Vol] 9.25 10*3/uL High 1.45-7.50 [facility] Comment on above: Order Comment: Speci men Type: BLOOD SPECIMENOrdering Facility: [facility] Address: [address] [place] [address] Performed By: #### 5 7021-8 ####[facility]ORATORYCLIA [id number] [place] [address] [place] Neutrophils/100 WBC (Bld) 71.6 % Normal [facility] Comment on above: Order Comment: Speci men Type: BLOOD SPECIMENOrdering Facility: [facility] Address: [address] [place] [address] Performed By: #### 5 7021-8 ####[facility]ORATORYCLIA [id number] [place] [address] [place] Nucleated RBC (Bld) [#/Vol] 10*3/uL Normal <0.01 [facility] Comment on above: Order Comment: Speci men Type: BLOOD SPECIMENOrdering Facility: [facility] Address: [address] [place] [address] Performed By: #### 5 7021-8 ####[facility]ORATORYCLIA [id number] [place] [address] [place] Nucleated RBC/100 WBC (Bld) [Ratio] 0.0 /100 WBC Normal [facility] Comment on above: Order Comment: Speci men Type: BLOOD SPECIMENOrdering Facility: [facility] Address: [address] [place] [address] Performed By: #### 5 7021-8 ####[facility]ORATORYCLIA [id number] [place] [id number] [place] Platelet mean volume (Bld) [Entitic vol] 8.5 fL Low 9.0-12.7 [facility] Comment on above: Order Comment: Speci men Type: BLOOD SPECIMENOrdering Facility: [facility] Address: [address] [place] [address] Performed By: #### 5 7021-8 ####[facility]ORATORYCLIA [id number] [place] [id number] [place] Platelets (Bld) [#/Vol] 347 10*3/uL Normal 150-400 [facility] Comment on above: Order Comment: Speci men Type: BLOOD SPECIMENOrdering Facility: [facility] Address: [address] [place] [address] Performed By: #### 5 7021-8 ####[facility]ORATORYCLIA [id number] [place] [address] [place] RBC (Bld) [#/Vol] 2.99 10*6/uL Low 3.90-5.20 [facility] Comment on above: Order Comment: Speci men Type: BLOOD SPECIMENOrdering Facility: [facility] Address: [address] [place] [address] Performed By: #### 5 7021-8 ####[facility]ORATORYCLIA [id number] [place] [id number] [place] WBC (Bld) [#/Vol] 12.92 10*3/uL High 3.70-11.00 [facility] Comment on above: Order Comment: Speci men Type: BLOOD SPECIMENOrdering Facility: [facility] Address: [address] [place] [address] Performed By: #### 5 7021-8 ####[facility] LABORATORYCLIA [id number] [address] CNDSon 06-09-2023 CNDS HNO ID: [id number] Author: YUVAL FOX MD Service: Hospital Medicine Author Type: Nurse Practitioner Type: Discharge Summary Filed: 06/10/2023 08:54 Note Text: Attestation signed by Yuval Fox MD at 06/10/2023 8:54 AM I have independently evaluated the patient and agree with the SAFETY AND HEALTH CONSULTANT/PA?s discharge summary. 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 Lact BMP 06/08 with WNL renal function, [...] no vegetations. Patient is discharged home with [facility] in stable condition. Follow up with ID [...] and moist, appropriate (more content not included)... [facility] THERAPY NTon 06-09-2023 THERAPY NT HNO ID: [id number] Author: JENN BARRY COTA/L Service: ? Author Type: Machine Driller Type: Therapy (PT/OT/Speech/Resp) Filed: 06/09/2023 11:50 Note Text: Attestation signed by Latosha Purdy OTR/L at 06/09/2023 4:08 PM I reviewed and agree with the documentation corresponding to this therapy visit. SIGNATURE: SHREYA Stark DATE: June 09, 2023 TIME: 4:08 PM Occupational Therapy Treatment Summary SERVICE DATE: 06/09/2023 SERVICE TIME: 1115 to 1126 ROOM: [place] [address] OT 6 Clicks Score: 15 DISCHARGE RECOMMENDATIONS [...] Lines/Tubes/Drains, Bed/Chair Alarm Log roll, bed alarm, [place], delayed mental processing CURRENT HOSPITAL COURSE s/p [...] Deficits: Distractible, Divided Memory Deficits: Short Term, Account Services Associate Executive Function Deficits: Sequencing, Judgement, Insight to Deficits, Problem Solving, Safety Awareness, Motor Planning THERAPY DIAGNOSIS Decreased activities of daily living (ADL) TREATMENT INTERVENTIONS Self Half-Way Management (12896) Timed Code Treatment (minutes): 11 Skilled Treatment Time (minutes): 11 TRAINING AND EDUCATION PROVIDED Activity Adaptation/Compensatory Strategies, Altering Thinking Patterns, Assistive Device Use, Attention Diversion Techniques, Benefits of In-Hospital Mobility, Bed Mobility, Expected Functional Level, Lower Extremity Dressing, Role of Occupational Therapy, Precautions/Restrictions, Standing Balance to Improve [place] with ADLs/Self-Care THERAPEUTIC SKILLS USED Activity Dosing, [...] Grooming Minimal [place] (more content not included)... [facility] THERAPY NT HNO ID: [id number] Author: JUDE GAUTHIER PT Service: Physical Therapy Author Type: Cultural Anthropology Professor Type: Therapy (PT/OT/Speech/Resp) Filed: 06/09/2023 09:14 Note Text: Attestation signed by Jude Gauthier PT at 06/09/2023 9:14 AM I reviewed and agree with the documentation corresponding to this therapy visit. SIGNATURE: Jude Gauthier PT DATE: June 09, 2023 TIME: 9:14 AM Physical Therapy Treatment Summary SERVICE DATE: 06/09/2023 SERVICE TIME: 728 ROOM: [id number] PT 6 Clicks Score: 11 DISCHARGE RECOMMENDATIONS [...] Lines/Tubes/Drains, Bed/Chair Alarm Log roll, bed alarm, [place], delayed mental processing CURRENT HOSPITAL COURSE s/p [...] DIAGNOSIS Reduced mobility-other TREATMENT INTERVENTIONS Gait Training (08506) Timed Code Treatment (minutes): 24 Skilled Treatment [...] 2 Stairs (more content not included)... Normal [facility] Basic metabolic 2000 panelon 06-08-2023 Anion gap [Moles/Vol] 4 mmol/L Low 5-16 [facility] Comment on above: Order Comment: Speci men Type: BLOOD SPECIMENOrdering Facility: [facility] Address: [address] [place] [address] Performed By: #### 2 4321-2 ####[facility] LABORATORYCLIA [id number] [place] [address] [place] Calcium [Mass/Vol] 9.2 mg/dL Normal 8.5-10.5 [facility] Comment on above: Order Comment: Speci men Type: BLOOD SPECIMENOrdering Facility: [facility] Address: [address] [place] [address] Performed By: #### 2 4321-2 ####[facility] LABORATORYCLIA [id number] [place] [address] [place] Chloride [Moles/Vol] 108 mmol/L High 98-107 [facility] Comment on above: Order Comment: Speci men Type: BLOOD SPECIMENOrdering Facility: [facility] Address: [address] [place] [address] Performed By: #### 2 4321-2 ####[facility] LABORATORYCLIA [id number] [place] [id number] [place] CO2 [Moles/Vol] 27 mmol/L Normal 21-32 [facility] Comment on above: Order Comment: Speci men Type: BLOOD SPECIMENOrdering Facility: [facility] Address: [address] [place] [address] Performed By: #### 2 4321-2 ####[facility] LABORATORYCLIA [id number] [place] [address] [place] Creatinine [Mass/Vol] 0.67 mg/dL Normal 0.51-0.95 [facility] Comment on above: Order Comment: Speci men Type: BLOOD SPECIMENOrdering Facility: [facility] Address: [address] [place] [address] Result Comment: Caron ents receiving either N-Acetylcysteine (NAC) or Metamizole prior to venipuncture, may have falsely depressed results. Performed By: #### 2 4321-2 ####[facility] LABORATORYCLIA [id number] [place] [address] [place] Creatinine and Glomerular filtration rate.predicted panel (S/P/Bld) 89 mL/min/1.73m??? Normal >=60 [facility] Comment on above: Order Comment: Anny hong Type: BLOOD SPECIMENOrdering Facility: [facility] Address: [address] [place] [address] Result Comment: Neda mated Glomerular Filtration Rate [...] actual GFR. Performed By: #### 2 4321-2 ####[facility] LABORATORYCLIA [id number] [place] [address] [place] Glucose [Mass/Vol] 125 mg/dL High 70-100 [facility] Comment on above: Order Comment: Anny hong Type: BLOOD SPECIMENOrdering Facility: [facility] Address: [address] [place] [address] Result Comment: The [place] [employer] (ADA) provides guidance for cutoff [...] Standards of Medical Care in Diabetes 2016, [place] [employer]. Diabetes Care. 2016.39(Suppl 1). Results may be falsely elevated after the administration of Sulfapyridine. Results may be falsely depressed after the administration of Sulfasalazine. Performed By: #### 2 4321-2 ####[facility] LABORATORYCLIA [id number] [place] [address] [place] Potassium [Moles/Vol] 4.6 mmol/L Normal 3.5-5.1 [facility] Comment on above: Order Comment: Speci men Type: BLOOD SPECIMENOrdering Facility: [facility] Address: [address] [place] [address] Performed By: #### 2 4321-2 ####[facility] LABORATORYCLIA [id number] [address] STATES OF [facility] Sodium [Moles/Vol] 139 mmol/L Normal 136-145 [facility] Comment on above: Order Comment: Speci men Type: BLOOD SPECIMENOrdering Facility: [facility] Address: [address] [place] [address] Performed By: #### 2 4321-2 ####[facility] LABORATORYCLIA [id number] [address] [place] Urea nitrogen [Mass/Vol] 22 mg/dL Normal 7-26 [facility] Comment on above: Order Comment: Speci men Type: BLOOD SPECIMENOrdering Facility: [facility] Address: [address] [place] [address] Performed By: #### 2 4321-2 ####[facility] LABORATORYCLIA [id number] [place] [id number] [place] CBC W Auto Differential pane l (Bld)on 06-08-2023 Basophils (Bld) [#/Vol] 0.03 10*3/uL Normal <0.11 [facility] Comment on above: Order Comment: Speci men Type: BLOOD SPECIMENOrdering Facility: [facility] Address: [address] [place] [address] Performed By: #### 5 7021-8 ####[facility] LABORATORYCLIA [id number] [place] [address] [place] Basophils/100 WBC (Bld) 0.2 % Normal [facility] Comment on above: Order Comment: Speci men Type: BLOOD SPECIMENOrdering Facility: [facility] Address: [facility] [place] [address] Performed By: #### 5 7021-8 ####[facility] LABORATORYCLIA [id number] [place] [address] [place] Differential cell count method Nom (Bld) Auto Normal [facility] Comment on above: Order Comment: Speci men Type: BLOOD SPECIMENOrdering Facility: [facility] Address: [address] [place] [address] Performed By: #### 5 7021-8 ####[facility]ORATORYCLIA [id number] [place] [address] [place] Eosinophils (Bld) [#/Vol] 0.03 10*3/uL Normal <0.46 [facility] Comment on above: Order Comment: Speci men Type: BLOOD SPECIMENOrdering Facility: [facility] Address: [address] [place] [address] Performed By: #### 5 7021-8 ####[facility] LABORATORYCLIA [id number] [address] [place] Eosinophils/100 WBC (Bld) 0.2 % Normal [facility] Comment on above: Order Comment: Speci men Type: BLOOD SPECIMENOrdering Facility: [facility] Address: [address] [place] [address] Performed By: #### 5 7021-8 ####[facility]ORATORYCLIA [id number] [place] [address] [place] Erythrocyte distribution width (RBC) [Ratio] 15.2 % High 11.5-15.0 [facility] Comment on above: Order Comment: Speci men Type: BLOOD SPECIMENOrdering Facility: [facility] Address: [address] [place] [address] Performed By: #### 5 7021-8 ####[facility] LABORATORYCLIA [id number] [place] [address] [place] Hematocrit (Bld) [Volume fraction] 25.9 % Low 36.0-46.0 [facility] Comment on above: Order Comment: Speci men Type: BLOOD SPECIMENOrdering Facility: [facility] Address: [address] [place] [address] Performed By: #### 5 7021-8 ####[facility]ORATORYCLIA [id number] [place] [address] [place] Hemoglobin (Bld) [Mass/Vol] 8.1 g/dL Low 11.5-15.5 [facility] Comment on above: Order Comment: Speci men Type: BLOOD SPECIMENOrdering Facility: [facility] Address: [address] [place] [address] Performed By: #### 5 7021-8 ####[facility]ORATORYCLIA [id number] [place] [address] [place] Immature granulocytes (Bld) [#/Vol] 0.18 10*3/uL High <0.10 [facility] Comment on above: Order Comment: Speci men Type: BLOOD SPECIMENOrdering Facility: [facility] Address: [address] [place] [address] Performed By: #### 5 7021-8 ####[facility]ORATORYCLIA [id number] [place] [address] [place] Immature granulocytes/100 WBC (Bld) 1.1 % Normal [facility] Comment on above: Order Comment: Speci men Type: BLOOD SPECIMENOrdering Facility: [facility] Address: [address] [place] [address] Performed By: #### 5 7021-8 ####[facility]ORATORYCLIA [id number] [place] [address] [place] Lymphocytes (Bld) [#/Vol] 2.34 10*3/uL Normal 1.00-4.00 [facility] Comment on above: Order Comment: Speci men Type: BLOOD SPECIMENOrdering Facility: [facility] Address: [address] [place] [address] Performed By: #### 5 7021-8 ####[facility] LABORATORYCLIA [id number] [address] [place] Lymphocytes/100 WBC (Bld) 13.9 % Normal [facility] Comment on above: Order Comment: Speci men Type: BLOOD SPECIMENOrdering Facility: [facility] Address: [address] [place] [address] Performed By: #### 5 7021-8 ####[facility]ORATORYCLIA [id number] [place] [address] [place] MCH (RBC) [Entitic mass] 25.0 pg Low 26.0-34.0 [facility] Comment on above: Order Comment: Speci men Type: BLOOD SPECIMENOrdering Facility: [facility] Address: [address] [place] [address] Performed By: #### 5 7021-8 ####[facility]ORATORYCLIA [id number] [address] [place] MCHC (RBC) [Mass/Vol] 31.3 g/dL Normal 30.5-36.0 [facility] Comment on above: Order Comment: Speci men Type: BLOOD SPECIMENOrdering Facility: [facility] Address: [address] [place] [address] Performed By: #### 5 7021-8 ####[facility]ORATORYCLIA [id number] [place] [address] [place] MCV (RBC) [Entitic vol] 79.9 fL Low 80.0-100.0 [facility] Comment on above: Order Comment: Speci men Type: BLOOD SPECIMENOrdering Facility: [facility] Address: [address] [place] [address] Performed By: #### 5 7021-8 ####[facility]ORATORYCLIA [id number] [place] [address] [facility] [place] Monocytes (Bld) [#/Vol] 1.06 10*3/uL High <0.87 [facility] Comment on above: Order Comment: Speci men Type: BLOOD SPECIMENOrdering Facility: [facility] Address: [address] [place] [address] Performed By: #### 5 7021-8 ####[facility]ORATORYCLIA [id number] [place] [id number] [place] Monocytes/100 WBC (Bld) 6.3 % Normal [facility] Comment on above: Order Comment: Speci men Type: BLOOD SPECIMENOrdering Facility: [facility] Address: [address] [place] [address] Performed By: #### 5 7021-8 ####[facility]ORATORYCLIA [id number] [place] [address] [place] Neutrophils (Bld) [#/Vol] 13.21 10*3/uL High 1.45-7.50 [facility] Comment on above: Order Comment: Speci men Type: BLOOD SPECIMENOrdering Facility: [facility] Address: [address] [place] [address] Performed By: #### 5 7021-8 ####[facility]ORATORYCLIA [id number] [place] [address] [place] Neutrophils/100 WBC (Bld) 78.3 % Normal [facility] Comment on above: Order Comment: Speci men Type: BLOOD SPECIMENOrdering Facility: [facility] Address: [address] [place] [address] Performed By: #### 5 7021-8 ####[facility]ORATORYCLIA [id number] [place] [id number] [place] Nucleated RBC (Bld) [#/Vol] 10*3/uL Normal <0.01 [facility] Comment on above: Order Comment: Speci men Type: BLOOD SPECIMENOrdering Facility: [facility] Address: [address] [place] [address] Performed By: #### 5 7021-8 ####[facility]ORATORYCLIA [id number] [place] [id number] [place] Nucleated RBC/100 WBC (Bld) [Ratio] 0.0 /100 WBC Normal [facility] Comment on above: Order Comment: Speci men Type: BLOOD SPECIMENOrdering Facility: [facility] Address: [address] [facility] [place] [id number] Performed By: #### 5 7021-8 ####[facility]ORATORYCLIA [id number] [place] [id number] [place] Platelet mean volume (Bld) [Entitic vol] 8.9 fL Low 9.0-12.7 [facility] Comment on above: Order Comment: Speci men Type: BLOOD SPECIMENOrdering Facility: [facility] Address: [address] [place] [address] Performed By: #### 5 7021-8 ####[facility]ORATORYCLIA [id number] [place] [id number] [place] Platelets (Bld) [#/Vol] 356 10*3/uL Normal 150-400 [facility] Comment on above: Order Comment: Speci men Type: BLOOD SPECIMENOrdering Facility: [facility] Address: [address] [place] [address] Performed By: #### 5 7021-8 ####[facility]ORATORYCLIA [id number] [place] [id number] [place] RBC (Bld) [#/Vol] 3.24 10*6/uL Low 3.90-5.20 [facility] Comment on above: Order Comment: Speci men Type: BLOOD SPECIMENOrdering Facility: [facility] Address: [address] [place] [address] Performed By: #### 5 7021-8 ####[facility]ATORYCLIA [id number] [place] [id number] [place] WBC (Bld) [#/Vol] 16.85 10*3/uL High 3.70-11.00 [facility] Comment on above: Order Comment: Speci men Type: BLOOD SPECIMENOrdering Facility: [facility] Address: [address] [place] [address] Performed By: #### 5 7021-8 ####[facility]ORATORYCLIA [id number] [place] [address] [facility] CONSULT PROGon 06-08-2023 CONSULT PROG HNO ID: [id number] Author: MARY EAGLE RPh Service: Pharmacy Author [...] (L) 06/06/2023 1942 8.3 (L) Mary [facility], [facility] THERAPY NTon 06-08-2023 THERAPY NT HNO ID: [id number] Author: JENN BARRY COTA/L Service: Occupational Therapy Author Type: Machine Driller Type: Therapy (PT/OT/Speech/Resp) Filed: 06/08/2023 15:15 Note Text: Attestation signed by Amparo Gilbert OTR/L at 06/08/2023 3:47 PM I reviewed and agree with the documentation corresponding to this therapy visit. SIGNATURE: SHREYA Mayo DATE: June 08, 2023 TIME: 3:47 PM Occupational Therapy Treatment Summary SERVICE DATE: 06/08/2023 SERVICE TIME: 935 to 958 ROOM: KM-0B-505-01 OT 6 Clicks Score: 15 DISCHARGE RECOMMENDATIONS [...] Lines/Tubes/Drains, Bed/Chair Alarm Log roll, bed alarm, [place], delayed mental processing, JOEY drain CURRENT HOSPITAL [...] Deficits: Distractible, Divided Memory Deficits: Short Term, Account Services Associate Executive Function Deficits: Sequencing, Judgement, Insight to [...] Supervision Low (more content not included)... Normal [facility] Vancomycin [place] SerPl-mCncon 06-08-2023 Vancomycin random [Mass/Vol] 9.3 ug/mL Low 10.0-25.0 [facility] Comment on above: Order Comment: Speci men Type: BLOOD SPECIMENOrdering Facility: [facility] Address: [address] [place] [address] Result Comment: Refe rence ranges and high/low indicator flags are provided as general guidelines only. The treating physician must determine appropriate target levels/dosing based on the specific clinical situation. Performed By: #### 4 091-5 ####[facility]ORATORYCLIA [id number] [place] [address] [place] Basic metabolic 2000 panelon 06-07-2023 Anion gap [Moles/Vol] 8 mmol/L Normal - [facility] Comment on above: Order Comment: Speci men Type: BLOOD SPECIMENOrdering Facility: [facility] Address: [address] [place] [address] Performed By: #### 2 4321-2 ####[facility] LABORATORYCLIA [id number] [place] [address] [place] Calcium [Mass/Vol] 8.8 mg/dL Normal 8.5-10.5 [facility] Comment on above: Order Comment: Speci men Type: BLOOD SPECIMENOrdering Facility: [facility] Address: [address] [place] [address] Performed By: #### 2 4321-2 ####[facility]ORATORYCLIA [id number] [place] [id number] [place] Chloride [Moles/Vol] 108 mmol/L High 98-107 [facility] Comment on above: Order Comment: Speci men Type: BLOOD SPECIMENOrdering Facility: [facility] Address: [address] [place] [address] Performed By: #### 2 4321-2 ####[facility]ORATORYCLIA [id number] [place] [address] [place] CO2 [Moles/Vol] 22 mmol/L Normal 21-32 [facility] Comment on above: Order Comment: Speci men Type: BLOOD SPECIMENOrdering Facility: [facility] Address: [address] [place] [address] Performed By: #### 2 4321-2 ####[facility]ORATORYCLIA [id number] [place] [address] [place] Creatinine [Mass/Vol] 0.65 mg/dL Normal 0.51-0.95 [facility] Comment on above: Order Comment: Speci men Type: BLOOD SPECIMENOrdering Facility: [facility] Address: [address] [place] [address] Result Comment: Caron ents receiving either N-Acetylcysteine (NAC) or Metamizole prior to venipuncture, may have falsely depressed results. Performed By: #### 2 4321-2 ####[facility] LABORATORYCLIA [id number] [place] [address] [place] Creatinine and Glomerular filtration rate.predicted panel (S/P/Bld) 90 mL/min/1.73m??? Normal >=60 [facility] Comment on above: Order Comment: Speci men Type: BLOOD SPECIMENOrdering Facility: [facility] Address: [address] [place] [address] Result Comment: Neda mated Glomerular Filtration Rate [...] actual GFR. Performed By: #### 2 4321-2 ####[facility] LABORATORYCLIA [id number] [place] [address] [place] Glucose [Mass/Vol] 116 mg/dL High 70-100 [facility] Comment on above: Order Comment: Speci men Type: BLOOD SPECIMENOrdering Facility: [facility] Address: [address] [place] [address] Result Comment: The [place] [employer] (ADA) provides guidance for cutoff [...] Standards of Medical Care in Diabetes 2016, [place] [employer]. Diabetes Care. 2016.39(Suppl 1). Results may be falsely elevated after the administration of Sulfapyridine. Results may be falsely depressed after the administration of Sulfasalazine. Performed By: #### 2 4321-2 ####[facility] LABORATORYCLIA [id number] [place] [address] [place] Potassium [Moles/Vol] Normal [facility] Comment on above: Order Comment: Speci men Type: BLOOD SPECIMENOrdering Facility: [facility] Address: [address] [place] [address] Result Comment: Unab le to assay due to interference from hemolysis. Suggest reorder as clinically indicated.Notified P.Bailey RN Performed By: #### 2 4321-2 ####[facility] LABORATORYCLIA [id number] [place] [address] [place] Sodium [Moles/Vol] 138 mmol/L Normal 136-145 [facility] Comment on above: Order Comment: Speci men Type: BLOOD SPECIMENOrdering Facility: [facility] Address: [address] [place] [address] Performed By: #### 2 4321-2 ####[facility] LABORATORYCLIA [id number] [place] [address] [place] Urea nitrogen [Mass/Vol] 21 mg/dL Normal 7-26 [facility] Comment on above: Order Comment: Speci men Type: BLOOD SPECIMENOrdering Facility: [facility] Address: [address] [place] [address] Performed By: #### 2 4321-2 ####[facility]ORATORYCLIA [id number] [place] [address] [place] CBC panel Auto (Bld)on 06-06 Erythrocyte distribution width (RBC) [Ratio] 14.8 % Normal 11.5-15.0 [facility] Comment on above: Order Comment: Speci men Type: BLOOD SPECIMEN [facility] Address: [address] [place] [address] Performed By: #### S LACT #### [facility] CLIA [id number] [address] [place] [address] [place] Hematocrit (Bld) [Volume fraction] 25.4 % Low 36.0-46.0 [facility] Comment on above: Order Comment: Speci men Type: BLOOD SPECIMEN [facility] Address: [address] [place] [address] Performed By: #### S LACT #### [facility] CLIA [id number] [address] [place] [address] [place] Hemoglobin (Bld) [Mass/Vol] 8.1 g/dL Low 11.5-15.5 [facility] Comment on above: Order Comment: Speci men Type: BLOOD SPECIMEN [facility] Address: [address] [place] [address] Performed By: #### S LACT #### [facility] CLIA [id number] [address] [place] [address] MCH (RBC) [Entitic mass] 25.3 pg Low 26.0-34.0 [facility] Comment on above: Order Comment: Speci men Type: BLOOD SPECIMEN [facility] Address: [address] [place] [address] Performed By: #### S LACT #### [facility] CLIA [id number] [address] [place] [address] MCHC (RBC) [Mass/Vol] 31.9 g/dL Normal 30.5-36.0 [facility] Comment on above: Order Comment: Speci men Type: BLOOD SPECIMEN [facility] Address: [address] [place] [address] Performed By: #### S LACT #### [facility] CLIA [id number] [address] [place] [address] [place] MCV (RBC) [Entitic vol] 79.4 fL Low 80.0-100.0 [facility] Comment on above: Order Comment: Speci men Type: BLOOD SPECIMEN [facility] Address: [address] [place] [address] Performed By: #### S LACT #### [facility] CLIA [id number] [address] [place] [address] Nucleated RBC (Bld) [#/Vol] 10*3/uL Normal <0.01 [facility] Comment on above: Order Comment: Speci men Type: BLOOD SPECIMEN [facility] Address: [address] [place] [address] Performed By: #### S LACT #### [facility] CLIA [id number] [address] [place] [address] [place] Platelet mean volume (Bld) [Entitic vol] 8.8 fL Low 9.0-12.7 [facility] Comment on above: Order Comment: Speci men Type: BLOOD SPECIMEN [facility] Address: [address] [place], [place] [address] Performed By: #### S LACT #### [facility] CLIA [id number] [address] [place] [address] [place] Platelets (Bld) [#/Vol] 317 10*3/uL Normal 150-400 [facility] Comment on above: Order Comment: Speci men Type: BLOOD SPECIMEN [facility] Address: [address] [place] [address] Performed By: #### S LACT #### [facility] CLIA [id number] [address] [place] [address] [place] RBC (Bld) [#/Vol] 3.20 10*6/uL Low 3.90-5.20 [facility] Comment on above: Order Comment: Speci men Type: BLOOD SPECIMEN [facility] Address: [address] [place] [address] Performed By: #### S LACT #### [facility] CLIA [id number] [address] [place], [place] [address] [place] WBC (Bld) [#/Vol] 18.96 10*3/uL High 3.70-11.00 [facility] Comment on above: Order Comment: Speci men Type: BLOOD SPECIMEN [facility] Address: [address] [place] [address] Performed By: #### S LACT #### [facility] CLIA [id number] [address] [place] [address] [place] POTASSIUM BLDon 06-07-2023 Potassium [Moles/Vol] 4.3 mmol/L Normal 3.5-5.1 [facility] Comment on above: Order Comment: Speci men Type: BLOOD SPECIMENOrdering Facility: [facility] Address: [address] [place] [address] Performed By: #### K 1 ####[facility] LABORATORYCLIA [id number] [place] [address] [facility] THERAPY NTon 06-07-2023 THERAPY NT HNO ID: [id number] Author: BRANDON RAMSAY PT Service: Physical Therapy Author Type: Cultural Anthropology Professor Type: Therapy (PT/OT/Speech/Resp) Filed: 06/07/2023 16:42 Note Text: Attestation signed by Brandon Ramsay PT at 06/07/2023 4:42 PM I reviewed and agree with the documentation corresponding to this therapy visit. SIGNATURE: Brandon Ramsay PT DATE: June 07, 2023 TIME: 4:42 PM Physical Therapy Treatment Summary SERVICE DATE: 06/07/2023 SERVICE TIME: 1527 to 1556 ROOM: AD-1S-938-01 PT 6 Clicks Score: 12 DISCHARGE RECOMMENDATIONS [...] Bed/Chair Alarm, Sitter Log roll, bed alarm, [place], delayed mental processing, JOEY drain CURRENT HOSPITAL [...] DIAGNOSIS Reduced mobility-other TREATMENT INTERVENTIONS Therapeutic Exercise (85521), Gait Training (12938) Timed Code Treatment (minutes): 29 Skilled Treatment [...] max cuing/redirect (more content not included)... Normal [facility] Basic metabolic 2000 panelon 06-06-2023 Anion gap [Moles/Vol] 5 mmol/L Normal 5-16 [facility] Comment on above: Order Comment: Speci men Type: BLOOD SPECIMEN [facility] Address: [address] [place] [address] Performed By: #### 2 4320-04, 1987-07 #### [facility] CLIA [id number] [address] [place] [address] [place] Calcium [Mass/Vol] 8.8 mg/dL Normal 8.5-10.5 [facility] Comment on above: Order Comment: Speci men Type: BLOOD SPECIMEN [facility] Address: [address] [place] [address] Performed By: #### 2 4320-04, 1987-07 #### [facility] CLIA [id number] [address] [place] [address] [place] Chloride [Moles/Vol] 108 mmol/L High 98-107 [facility] Comment on above: Order Comment: Speci men Type: BLOOD SPECIMEN [facility] Address: [address] [place] [address] Performed By: #### 2 4320-04, 1987-07 #### [facility] CLIA [id number] [address] [place] [address] [place] CO2 [Moles/Vol] 26 mmol/L Normal 21-32 [facility] Comment on above: Order Comment: Speci men Type: BLOOD SPECIMEN [facility] Address: [address] [place] [address] Performed By: #### 2 43203-23, 1987-07 #### [facility] CLIA [id number] [address] [place] [address] [place] Creatinine [Mass/Vol] 0.58 mg/dL Normal 0.51-0.95 [facility] Comment on above: Order Comment: Speci men Type: BLOOD SPECIMEN Ordering Facility: [facility] Address: [address] [place] [address] Result Comment: Caron ents receiving either N-Acetylcysteine (NAC) or Metamizole prior to venipuncture, may have falsely depressed results. Performed By: #### 2 4320-04, 1987-07 #### [facility] CLIA [id number] [address] [place] [address] [place] Creatinine and Glomerular filtration rate.predicted panel (S/P/Bld) 92 mL/min/1.73m??? Normal >=60 [facility] Comment on above: Order Comment: Debbiei men Type: BLOOD SPECIMEN Ordering Facility: [facility] Address: [address] [place] [address] Result Comment: Neda mated Glomerular Filtration Rate [...] Performed By: #### 2 43203-23, 1987-07 #### [facility] CLIA [id number] [address] [place], [place] [address] [place] Glucose [Mass/Vol] 116 mg/dL High 70-100 [facility] Comment on above: Order Comment: Speci men Type: BLOOD SPECIMEN Ordering Facility: [facility] Address: [address] [place], [place] [address] Result Comment: The [place] [employer] (ADA) provides guidance for cutoff [...] Standards of Medical Care in Diabetes 2016, [place] [employer]. Diabetes Care. 2016.39(Suppl 1). Results may be falsely elevated after the administration of Sulfapyridine. Results may be falsely depressed after the administration of Sulfasalazine. Performed By: #### 2 1987-07 #### [facility] CLIA [id number] [address] [place] [address] [place] Potassium [Moles/Vol] 4.2 mmol/L Normal 3.5-5.1 [facility] Comment on above: Order Comment: Anny hong Type: BLOOD SPECIMEN Ordering Facility: [facility] Address: [address] [place], [place] [address] Performed By: #### 2 1987-07 #### [facility] CLIA [id number] [address] [place] [address] [place] Sodium [Moles/Vol] 139 mmol/L Normal 136-145 [facility] Comment on above: Order Comment: Anny hong Type: BLOOD SPECIMEN Ordering Facility: [facility] Address: [address] [place], [place] [id number] Performed By: #### 2 1987-07 #### [facility] CLIA [id number] [address] [place] [address] [place] Urea nitrogen [Mass/Vol] 26 mg/dL Normal 7-26 [facility] Comment on above: Order Comment: Speci men Type: BLOOD SPECIMEN Ordering Facility: [facility] Address: [address] [place] [address] Performed By: #### 2 4320-04, 1987-07 #### [facility] CLIA [id number] [address] [place] [address] [place] CBC W Auto Differential pane l (Bld)on 06-06-2023 Basophils (Bld) [#/Vol] 0.03 10*3/uL Normal <0.11 [facility] Comment on above: Order Comment: Speci men Type: BLOOD SPECIMEN Ordering Facility: [facility] Address: [address] [place] [address] Performed By: #### 2 4320-04, 1987-07 #### [facility] CLIA [id number] [address] [place] [address] [place] Basophils/100 WBC (Bld) 0.1 % Normal [facility] Comment on above: Order Comment: Speci men Type: BLOOD SPECIMEN Ordering Facility: [facility] Address: [address] [place] [address] Performed By: #### 2 4320-04, 1987-07 #### [facility] CLIA [id number] [address] [place] [address] [place] Differential cell count method Nom (Bld) Auto Normal [facility] Comment on above: Order Comment: Speci men Type: BLOOD SPECIMEN Ordering Facility: [facility] Address: [address] [place] [address] Performed By: #### 2 4320-04, 1987-07 #### [facility] CLIA [id number] [address] [place] [address] [place] Eosinophils (Bld) [#/Vol] 10*3/uL Normal <0.46 [facility] Comment on above: Order Comment: Speci men Type: BLOOD SPECIMEN Ordering Facility: [facility] Address: [address] [place] [address] Performed By: #### 2 4320-04, 1987-07 #### [facility] CLIA [id number] [address] [place], [place] [address] [place] Eosinophils/100 WBC (Bld) 0.0 % Normal [facility] Comment on above: Order Comment: Speci men Type: BLOOD SPECIMEN Ordering Facility: [facility] Address: [address] [place] [address] Performed By: #### 2 4320-04, 1987-07 #### [facility] CLIA [id number] [address] [place] [address] [place] Erythrocyte distribution width (RBC) [Ratio] 14.9 % Normal 11.5-15.0 [facility] Comment on above: Order Comment: Speci men Type: BLOOD SPECIMEN Ordering Facility: [facility] Address: [address] [place] [address] Performed By: #### 2 4320-04, 1987-07 #### [facility] CLIA [id number] [address] [place] [address] [place] Hematocrit (Bld) [Volume fraction] 26.3 % Low 36.0-46.0 [facility] Comment on above: Order Comment: Speci men Type: BLOOD SPECIMEN Ordering Facility: [facility] Address: [address] [place] [address] Performed By: #### 2 4320-04, 1987-07 #### [facility] CLIA [id number] [address] [place] [address] [place] Hemoglobin (Bld) [Mass/Vol] 8.4 g/dL Low 11.5-15.5 [facility] Comment on above: Order Comment: Speci men Type: BLOOD SPECIMEN Ordering Facility: [facility] Address: [address] [place] [address] Performed By: #### 2 4320-04, 1987-07 #### [facility] CLIA [id number] [address] [place], [place] [id number] [place] Immature granulocytes (Bld) [#/Vol] 0.22 10*3/uL High <0.10 [facility] Comment on above: Order Comment: Speci men Type: BLOOD SPECIMEN Ordering Facility: [facility] Address: [address] [place] [address] Performed By: #### 2 4320-04, 1987-07 #### [facility] CLIA [id number] [address] [place] [address] [place] Immature granulocytes/100 WBC (Bld) 1.0 % Normal [facility] Comment on above: Order Comment: Speci men Type: BLOOD SPECIMEN Ordering Facility: [facility] Address: [address] [place] [address] Performed By: #### 2 4320-04, 1987-07 #### [facility] CLIA [id number] [address] [place] [address] [place] Lymphocytes (Bld) [#/Vol] 2.41 10*3/uL Normal 1.00-4.00 [facility] Comment on above: Order Comment: Speci men Type: BLOOD SPECIMEN Ordering Facility: [facility] Address: [address] [place] [address] Performed By: #### 2 4320-04, 1987-07 #### [facility] CLIA [id number] [address] [place] [address] [place] Lymphocytes/100 WBC (Bld) 10.6 % Normal [facility] Comment on above: Order Comment: Speci men Type: BLOOD SPECIMEN Ordering Facility: [facility] Address: [address] [place] [address] Performed By: #### 2 4320-04, 1987-07 #### [facility] CLIA [id number] [address] [place] [address] [place] MCH (RBC) [Entitic mass] 25.3 pg Low 26.0-34.0 [facility] Comment on above: Order Comment: Speci men Type: BLOOD SPECIMEN Ordering Facility: [facility] Address: [address] [place] [address] Performed By: #### 2 4320-04, 1987-07 #### [facility] CLIA [id number] [address] [place] [address] [place] MCHC (RBC) [Mass/Vol] 31.9 g/dL Normal 30.5-36.0 [facility] Comment on above: Order Comment: Speci men Type: BLOOD SPECIMEN Ordering Facility: [facility] Address: [address] [place] [address] Performed By: #### 2 4320-04, 1987-07 #### [facility] CLIA [id number] [address] [place] [address] [place] MCV (RBC) [Entitic vol] 79.2 fL Low 80.0-100.0 [facility] Comment on above: Order Comment: Speci men Type: BLOOD SPECIMEN Ordering Facility: [facility] Address: [address] [place] [address] Performed By: #### 2 4320-04, 1987-07 #### [facility] CLIA [id number] [address] [place] [address] [place] Monocytes (Bld) [#/Vol] 1.61 10*3/uL High <0.87 [facility] Comment on above: Order Comment: Speci men Type: BLOOD SPECIMEN Ordering Facility: [facility] Address: [address] [place] [address] Performed By: #### 2 4320-04, 1987-07 #### [facility] CLIA [id number] [address] [place] [address] [place] Monocytes/100 WBC (Bld) 7.1 % Normal [facility] Comment on above: Order Comment: Speci men Type: BLOOD SPECIMEN Ordering Facility: [facility] Address: [address] [place] [address] Performed By: #### 2 4320-04, 1987-07 #### [facility] CLIA [id number] [address] [place] [address] [place] Neutrophils (Bld) [#/Vol] 18.41 10*3/uL High 1.45-7.50 [facility] Comment on above: Order Comment: Speci men Type: BLOOD SPECIMEN Ordering Facility: [facility] Address: [address] [place] [address] Performed By: #### 2 4320-04, 1987-07 #### [facility] CLIA [id number] [address] [place], [place] [address] [place] Neutrophils/100 WBC (Bld) 81.2 % Normal [facility] Comment on above: Order Comment: Speci men Type: BLOOD SPECIMEN Ordering Facility: [facility] Address: [address] [facility] [place] [id number] Performed By: #### 2 4320-04, 1987-07 #### [facility] CLIA [id number] [address] [place], [place] [address] [place] Nucleated RBC (Bld) [#/Vol] 10*3/uL Normal <0.01 [facility] Comment on above: Order Comment: Speci men Type: BLOOD SPECIMEN Ordering Facility: [facility] Address: [facility] [place] [id number] Performed By: #### 2 4320-04, 1987-07 #### [facility] CLIA [id number] [address] [place], [place] [address] [place] Nucleated RBC/100 WBC (Bld) [Ratio] 0.0 /100 WBC Normal [facility] Comment on above: Order Comment: Speci men Type: BLOOD SPECIMEN Ordering Facility: [facility] Address: [address] [place] [address] Performed By: #### 2 4320-04, 1987-07 #### [facility] CLIA [id number] [address] [place], [place] [address] [place] Platelet mean volume (Bld) [Entitic vol] 8.6 fL Low 9.0-12.7 [facility] Comment on above: Order Comment: Speci men Type: BLOOD SPECIMEN Ordering Facility: [facility] Address: [address] [place] [address] Performed By: #### 2 4320-04, 1987-07 #### [facility] CLIA [id number] [address] [place], [place] [address] [place] Platelets (Bld) [#/Vol] 326 10*3/uL Normal 150-400 [facility] Comment on above: Order Comment: Speci men Type: BLOOD SPECIMEN Ordering Facility: [facility] Address: [address] [place], [place] [address] Performed By: #### 2 4321-, 1987-07 #### [facility] CLIA [id number] [address] [place], [place] [address] [place] RBC (Bld) [#/Vol] 3.32 10*6/uL Low 3.90-5.20 [facility] Comment on above: Order Comment: Speci men Type: BLOOD SPECIMEN Ordering Facility: [facility] Address: [address] [place], [place] [address] Performed By: #### 2 4321, 1987-07 #### [facility] CLIA [id number] [address] [place], [place] [address] [facility] [place] WBC (Bld) [#/Vol] 22.69 10*3/uL High 3.70-11.00 [facility] Comment on above: Order Comment: Speci men Type: BLOOD SPECIMEN Ordering Facility: [facility] Address: [address] [place], [place] [address] Performed By: #### 2 43203-23, 1987-07 #### [facility] CLIA [id number] [address] [place], [place] [address] [facility] CONSULT PROGon 06-06-2023 CONSULT PROG HNO ID: [id number] Author: SUJATA MORENO RPh Service: Pharmacy Author [...] (L) 06/04/2023 1820 32.8 (H) Sujata Moreno [facility] Normal [facility] Magnesium SerPl-mCncon 06-05 Magnesium [Mass/Vol] 2.1 mg/dL Normal 1.6-2.6 [facility] Comment on above: Order Comment: Speci men Type: BLOOD SPECIMEN Ordering Facility: [facility] Address: [address] [place] [address] Performed By: #### 2 4321-2, 1987-07 #### [facility] CLIA [id number] [address] [place] [address] [place] NURSING PROGon 06-06-2023 NURSING PROG HNO ID: [id number] Author: ASHVIN CRUMP RN Service: ? Author Type: Registered Nurse Type: Nursing Progress Note Filed: 06/06/2023 19:23 Note Text: IV in Right forearm pulled out by unplanned removal. IV replaced with a nee #22 gauge in the right wrist for antibiotic and other needs. Normal [facility] THERAPY NTon 06-06-2023 THERAPY NT HNO ID: [id number] Author: MERCEDEZ ROBLEDO OTR/L Service: ? Author Type: Occupational Therapist Type: Therapy (PT/OT/Speech/Resp) Filed: 06/06/2023 10:04 Note Text: Occupational Therapy Evaluation Summary SERVICE DATE: 06/06/2023 SERVICE TIME: 902 to 925 ROOM: [place] [address] OT 6 Clicks Score: 15 DISCHARGE RECOMMENDATIONS [...] Lines/Tubes/Drains, Bed/Chair Alarm Log roll, bed alarm, [place], delayed mental processing, JOEY drain CURRENT HOSPITAL [...] Redirected with Cues Memory Deficits: Short Term, Mcfp Executive Function Deficits: Safety Awareness, Problem Solving, Insight to Deficits, Judgement, Sequencing, Categorization THERAPY DIAGNOSIS Reduced mobility-other, Muscle Weakness (generalized), Decreased activities of daily living (ADL), Unsteadiness on feet, General symptoms and signs-other TREATMENT INTERVENTIONS Evaluation, Self Half-Way Management (40436) Timed Code Treatment (minutes): 8 Skilled Treatment Time (minutes): 23 TRAINING AND EDUCATION PROVIDED Activity Adaptation/Compensatory Strategies, Altering Thinking Patterns, Assistive Device Use, Attention Diversion Techniques, Benefits of In-Hospital Mobility, Bed Mobility, Expected Functional Level, Lower Extremity Dressing, Role of Occupational Therapy, Precautions/Restrictions, Standing Balance to Improve [place] with ADLs/Self-Care THERAPEUTIC SKILLS USED Activity Dosing, [...] Information Max A for brief donning/doffing to in (more content not included)... Normal [facility] Vancomycin [place] SerPl-mCncon 06-06-2023 Vancomycin random [Mass/Vol] 8.3 ug/mL Low 10.0-25.0 [facility] Comment on above: Order Comment: Anny hong Type: BLOOD SPECIMEN Ordering Facility: [facility] Address: [address] [place] [address] Result Comment: Refe rence ranges and high/low indicator flags are provided as general guidelines only. The treating physician must determine appropriate target levels/dosing based on the specific clinical situation. Performed By: #### S LACT #### [facility] CLIA [id number] [address] [place] [address] [place] Basic metabolic 2000 panelon 06-05-2023 Anion gap [Moles/Vol] 5 mmol/L Normal 08-04 [facility] Comment on above: Order Comment: Anny hong Type: BLOOD SPECIMEN Ordering Facility: [facility] Address: [address] [place], [place] [address] Performed By: #### 2 4320-04, 1987-07 #### [facility] CLIA [id number] [address] [place] [address] [place] Calcium [Mass/Vol] 8.9 mg/dL Normal 8.5-10.5 [facility] Comment on above: Order Comment: Anny hong Type: BLOOD SPECIMEN Ordering Facility: [facility] Address: [address] [place], [place] [address] Performed By: #### 2 1987-07 #### [facility] CLIA [id number] [address] [place] [address] [place] Chloride [Moles/Vol] 105 mmol/L Normal 98-107 [facility] Comment on above: Order Comment: Speci men Type: BLOOD SPECIMEN Ordering Facility: [facility] Address: [address] [place] [address] Performed By: #### 2 43203-23, 1987-07 #### [facility] CLIA [id number] [address] [place] [address] [place] CO2 [Moles/Vol] 26 mmol/L Normal 21-32 [facility] Comment on above: Order Comment: Speci men Type: BLOOD SPECIMEN Ordering Facility: [facility] Address: [address] [place] [address] Performed By: #### 2 43203-23, 1987-07 #### [facility] CLIA [id number] [address] [place] [address] STATES OF [facility] Creatinine [Mass/Vol] 0.70 mg/dL Normal 0.51-0.95 [facility] Comment on above: Order Comment: Speci men Type: BLOOD SPECIMEN Ordering Facility: [facility] Address: [address] [place] [address] Result Comment: Caron ents receiving either N-Acetylcysteine (NAC) or Metamizole prior to venipuncture, may have falsely depressed results. Performed By: #### 2 43203-23, 1987-07 #### [facility] CLIA [id number] [address] [place] [address] OF [facility] Creatinine and Glomerular filtration rate.predicted panel (S/P/Bld) 88 mL/min/1.73m??? Normal >=60 [facility] Comment on above: Order Comment: Speci men Type: BLOOD SPECIMEN Ordering Facility: [facility] Address: [address] [place] [address] Result Comment: Neda mated Glomerular Filtration Rate [...] GFR. Performed By: #### 2 1987-07 #### [facility] CLIA [id number] [address] [place], [place] [address] [place] Glucose [Mass/Vol] 128 mg/dL High 70-100 [facility] Comment on above: Order Comment: Anny hong Type: BLOOD SPECIMEN Ordering Facility: [facility] Address: [address] [place] [id number] Result Comment: The [place] [employer] (ADA) provides guidance for cutoff [...] Standards of Medical Care in Diabetes 2016, [place] [employer]. Diabetes Care. 2016.39(Suppl 1). Results may be falsely elevated after the administration of Sulfapyridine. Results may be falsely depressed after the administration of Sulfasalazine. Performed By: #### 2 1987-07 #### [facility] CLIA [id number] [address] [place] [address] [place] Potassium [Moles/Vol] 5.2 mmol/L High 3.5-5.1 [facility] Comment on above: Order Comment: Anny hong Type: BLOOD SPECIMEN Ordering Facility: [facility] Address: [address] [place] [address] Performed By: #### 2 4320-04, 1987-07 #### [facility] CLIA [id number] [address] [place], [place] [address] [place] Sodium [Moles/Vol] 136 mmol/L Normal 136-145 [facility] Comment on above: Order Comment: Speci men Type: BLOOD SPECIMEN Ordering Facility: [facility] Address: [address] [place] [address] Performed By: #### 2 4320-04, 1987-07 #### [facility] CLIA [id number] [address] [place] [address] [place] Urea nitrogen [Mass/Vol] 35 mg/dL High - [facility] Comment on above: Order Comment: Speci men Type: BLOOD SPECIMEN Ordering Facility: [facility] Address: [address] [place] [address] Performed By: #### 2 4320-04, 1987-07 #### [facility] CLIA [id number] [address] [place] [address] [place] CBC W Auto Differential pane l (Bld)on 06-05-2023 Basophils (Bld) [#/Vol] 0.03 10*3/uL Normal <0.11 [facility] Comment on above: Order Comment: Speci men Type: BLOOD SPECIMEN Ordering Facility: [facility] Address: [address] [place] [address] Performed By: #### 2 4320-04, 1987-07 #### [facility] CLIA [id number] [address] [place] [address] [place] Basophils/100 WBC (Bld) 0.1 % Normal [facility] Comment on above: Order Comment: Speci men Type: BLOOD SPECIMEN Ordering Facility: [facility] Address: [address] [place] [address] Performed By: #### 2 4320-04, 1987-07 #### [facility] CLIA [id number] [address] [place] [address] STATES [facility] Differential cell count method Nom (Bld) Auto Normal [facility] Comment on above: Order Comment: Speci men Type: BLOOD SPECIMEN Ordering Facility: [facility] Address: [address] [place] [address] Performed By: #### 2 4320-04, 1987-07 #### [facility] CLIA [id number] [address] [place] [address] [place] Eosinophils (Bld) [#/Vol] 0.08 10*3/uL Normal <0.46 [facility] Comment on above: Order Comment: Speci men Type: BLOOD SPECIMEN Ordering Facility: [facility] Address: [address] [place] [address] Performed By: #### 2 4320-04, 1987-07 #### [facility] CLIA [id number] [address] [place] [address] [place] Eosinophils/100 WBC (Bld) 0.4 % Normal [facility] Comment on above: Order Comment: Speci men Type: BLOOD SPECIMEN Ordering Facility: [facility] Address: [address] [place] [address] Performed By: #### 2 4320-04, 1987-07 #### [facility] CLIA [id number] [address] [place] [address] [place] Erythrocyte distribution width (RBC) [Ratio] 15.1 % High 11.5-15.0 [facility] Comment on above: Order Comment: Speci men Type: BLOOD SPECIMEN Ordering Facility: [facility] Address: [address] [place] [address] Performed By: #### 2 4320-04, 1987-07 #### [facility] CLIA [id number] [address] [place] [address] [place] Hematocrit (Bld) [Volume fraction] 27.2 % Low 36.0-46.0 [facility] Comment on above: Order Comment: Speci men Type: BLOOD SPECIMEN Ordering Facility: [facility] Address: [address] [place] [address] Performed By: #### 2 4320-04, 1987-07 #### [facility] CLIA [id number] [address] [place], [place] [address] [place] Hemoglobin (Bld) [Mass/Vol] 8.8 g/dL Low 11.5-15.5 [facility] Comment on above: Order Comment: Speci men Type: BLOOD SPECIMEN Ordering Facility: [facility] Address: [address] [place] [id number] Performed By: #### 2 4320-04, 1987-07 #### [facility] CLIA [id number] [address] [place], [place] [address] [place] Immature granulocytes (Bld) [#/Vol] 0.26 10*3/uL High <0.10 [facility] Comment on above: Order Comment: Speci men Type: BLOOD SPECIMEN Ordering Facility: [facility] Address: [address] [place] [address] Performed By: #### 2 4320-04, 1987-07 #### [facility] CLIA [id number] [address] [place] [address] [place] Immature granulocytes/100 WBC (Bld) 1.2 % Normal [facility] Comment on above: Order Comment: Speci men Type: BLOOD SPECIMEN Ordering Facility: [facility] Address: [address] [place] [address] Performed By: #### 2 4320-04, 1987-07 #### [facility] CLIA [id number] [address] [place] [address] [place] Lymphocytes (Bld) [#/Vol] 2.53 10*3/uL Normal 1.00-4.00 [facility] Comment on above: Order Comment: Speci men Type: BLOOD SPECIMEN Ordering Facility: [facility] Address: [address] [place] [address] Performed By: #### 2 4320-04, 1987-07 #### [facility] CLIA [id number] [address] [place], [place] [id number] [place] Lymphocytes/100 WBC (Bld) 11.4 % Normal [facility] Comment on above: Order Comment: Speci men Type: BLOOD SPECIMEN Ordering Facility: [facility] Address: [address] [place] [address] Performed By: #### 2 4320-04, 1987-07 #### [facility] CLIA [id number] [address] [place] [address] [place] MCH (RBC) [Entitic mass] 25.8 pg Low 26.0-34.0 [facility] Comment on above: Order Comment: Speci men Type: BLOOD SPECIMEN Ordering Facility: [facility] Address: [address] [place] [address] Performed By: #### 2 4320-04, 1987-07 #### [facility] CLIA [id number] [address] [place] [address] [place] MCHC (RBC) [Mass/Vol] 32.4 g/dL Normal 30.5-36.0 [facility] Comment on above: Order Comment: Speci men Type: BLOOD SPECIMEN Ordering Facility: [facility] Address: [address] [place] [address] Performed By: #### 2 4320-04, 1987-07 #### [facility] CLIA [id number] [address] [place] [address] [place] MCV (RBC) [Entitic vol] 79.8 fL Low 80.0-100.0 [facility] Comment on above: Order Comment: Speci men Type: BLOOD SPECIMEN Ordering Facility: [facility] Address: [address] [place] [address] Performed By: #### 2 4320-04, 1987-07 #### [facility] CLIA [id number] [address] [place] [address] [place] Monocytes (Bld) [#/Vol] 1.51 10*3/uL High <0.87 [facility] Comment on above: Order Comment: Speci men Type: BLOOD SPECIMEN Ordering Facility: [facility] Address: [address] [place] [address] Performed By: #### 2 4320-04, 1987-07 #### [facility] CLIA [id number] [address] [place] [address] [place] Monocytes/100 WBC (Bld) 6.8 % Normal [facility] Comment on above: Order Comment: Speci men Type: BLOOD SPECIMEN Ordering Facility: [facility] Address: [address] [place] [address] Performed By: #### 2 4320-04, 1987-07 #### [facility] CLIA [id number] [address] [place] [address] [place] Neutrophils (Bld) [#/Vol] 17.79 10*3/uL High 1.45-7.50 [facility] Comment on above: Order Comment: Speci men Type: BLOOD SPECIMEN Ordering Facility: [facility] Address: [address] [place] [address] Performed By: #### 2 4320-04, 1987-07 #### [facility] CLIA [id number] [address] [place], [place] [address] [place] Neutrophils/100 WBC (Bld) 80.1 % Normal [facility] Comment on above: Order Comment: Speci men Type: BLOOD SPECIMEN Ordering Facility: [facility] Address: [address] [place] [address] Performed By: #### 2 4320-04, 1987-07 #### [facility] CLIA [id number] [address] [place] [address] [place] Nucleated RBC (Bld) [#/Vol] 10*3/uL Normal <0.01 [facility] Comment on above: Order Comment: Speci men Type: BLOOD SPECIMEN Ordering Facility: [facility] Address: [address] [place] [address] Performed By: #### 2 4320-04, 1987-07 #### [facility] CLIA [id number] [address] [place], [place] [address] [place] Nucleated RBC/100 WBC (Bld) [Ratio] 0.0 /100 WBC Normal [facility] Comment on above: Order Comment: Speci men Type: BLOOD SPECIMEN Ordering Facility: [facility] Address: [address] [place] [address] [place] [address] Performed By: #### 2 4320-04, 1987-07 #### [facility] CLIA [id number] [address] [place], [place] [address] [place] Platelet mean volume (Bld) [Entitic vol] 8.6 fL Low 9.0-12.7 [facility] Comment on above: Order Comment: Speci men Type: BLOOD SPECIMEN Ordering Facility: [facility] Address: [address] [place], [place] [address] Performed By: #### 2 4320-04, 1987-07 #### [facility] CLIA [id number] [address] [place] [address] [place] Platelets (Bld) [#/Vol] 368 10*3/uL Normal 150-400 [facility] Comment on above: Order Comment: Speci men Type: BLOOD SPECIMEN Ordering Facility: [facility] Address: [address] [place], [place] [address] Performed By: #### 2 4320-04, 1987-07 #### [facility] CLIA [id number] [address] [place], [place] [address] [place] RBC (Bld) [#/Vol] 3.41 10*6/uL Low 3.90-5.20 [facility] Comment on above: Order Comment: Speci men Type: BLOOD SPECIMEN Ordering Facility: [facility] Address: [address] [place], [place] [address] Performed By: #### 2 4320-04, 1987-07 #### [facility] CLIA [id number] [address] [place] [address] [place] WBC (Bld) [#/Vol] 22.20 10*3/uL High 3.70-11.00 [facility] Comment on above: Order Comment: Speci men Type: BLOOD SPECIMEN Ordering Facility: [facility] Address: [address] [place] [address] Performed By: #### 2 4320-04, 1987-07 #### [facility] CLIA [id number] [address] [place] [address] [facility] [place] CONSULTon 06-05-2023 CONSULT HNO ID: [id number] Author: DENISE YEBOAH MD Service: Cardiovascular Medicine Author Type: Physician Type: Consults Filed: 06/05/2023 13:14 Note Text: CARDIOLOGY CONSULT Changed co-signer 06/04 0616 CONSULTING PHYSICIAN: Buck Ayala MD PCP: Sulma Malone DO ATTENDING: Buck Ayala MD STAFF LEVER OPERATOR: Dr. Yeboah REASON FOR CONSULT: bacteremia, [...] not answer que (more content not included)... [facility] CONSULT PROGon 06-05-2023 CONSULT PROG HNO ID: [id number] Author: MICAH ARIAS RPh Service: Pharmacy Author [...] have any questions, please contact pharmacy at [phone]. Age: [age] year old Allergies: ALLERGIES Allergen [...] Value 06/04/2023 1820 32.8 (H) Micah Arias [facility] ECG COMPLETEon 06-05-2023 ECG COMPLETE Ventricular Rate : 8 8 BPM Atrial Rate : 88 BPM P-R Interval : 166 ms QRS Duration : 92 ms Q-T Interval : 378 ms QTC Calculation(Bazett) : 457 ms Calculated P [place] : 33 degrees Calculated R [place] : -18 degrees Calculated T [place] : 80 degrees Sinus rhythm with occasional Premature ventricular complexes Left ventricular hypertrophy Non-specific ST and T wave changes Abnormal ECG No previous ECGs available Confirmed by MAURICE BRYANT MD ([id number]) on 07/07/2023 5:11:39 PM NAME : ZOILA WEBSTER PID : [id number] : 1945 Gender : Female Race : ORD : [id number] Procedure Date : Jun 05 2023 08:32:58 Edit Date : Jul 07 2023 17:11:40 Diagnosis: Sinus rhythm with occasional Premature ventricular complexes Left ventricular hypertrophy Non-specific ST and T wave changes Abnormal ECG No previous ECGs available Confirmed by MAURICE BRYANT MD ([id number]) on 07/07/2023 5:11:39 PM Test Reason : RT Location : 28 : [address] [place] [address] Overread By : MAURICE BRYANT MD Edited By : MAURICE BRYANT MD Referred By : , Acquired by : LONDON DURAN Normal [facility] Magnesium SerPl-ncon 06-04 Magnesium [Mass/Vol] 2.2 mg/dL Normal 1.6-2.6 [facility] Comment on above: Order Comment: Speci men Type: BLOOD SPECIMEN Ordering Facility: [facility] Address: [address] [place] [address] Performed By: #### 2 4321-2, 1987-07 #### [facility] CLIA [id number] [address] [place] [address] OF [facility] THERAPY NTon 06-05-2023 THERAPY NT HNO ID: [id number] Author: ROBERTA ALEXANDER, PT, DPT Service: Physical Therapy Author Type: Physical Therapist Type: Therapy (PT/OT/Speech/Resp) Filed: 06/05/2023 10:42 Note Text: Physical Therapy Evaluation Summary SERVICE DATE: 06/05/2023 SERVICE TIME: 0954 to 1037 ROOM: [id number] PT 6 Clicks Score: 12 DISCHARGE RECOMMENDATIONS [...] Lines/Tubes/Drains, Bed/Chair Alarm Log roll, bed alarm, [place], delayed mental processing CURRENT HOSPITAL COURSE s/p [...] Reduced mobility-other TREATMENT INTERVENTIONS Evaluation, Therapeutic Activity (33628) Timed Code Treatment (minutes): 28 Skilled Treatment [...] June 05, 2023 TIME: 10:42 AM Normal [facility] TSH SerPl-aCncon 06-05-2023 TSH Qn 0.403 m[IU]/L Normal 0.358-3.74 0 [facility] Comment on above: Order Comment: Speci men Type: BLOOD SPECIMEN Ordering Facility: [facility] Address: [address] [place] [address] Result Comment: 3rd generation ultra sensitive TSH. Performed By: #### 2 4321-2, 1987-07 #### [facility] CLIA [id number] [address] OF [facility] ANES POSTPROC EVALon 024 ANES POSTPROC EVAL HNO ID: [id number] Author: JUAN M LEE DO Service: Anesthesiology [...] Juan M Lee DO PATIENT NAME: Zoila Webster DATE: June 04, 2023 TIME: 7:07 PM CSN: [id number] [facility] ANES PRE-OPon 06-04-2023 ANES PRE-OP HNO ID: [id number] Author: BOSSMAN STRATTON MD Service: Anesthesiology Author [...] and consent discussed: yes. Patient / Responsible Democrat agrees to proceed: yes Patient / Surrogate [...] June 04, 2023 TIME: 12:19 PM CSN: [id number] [facility] BRIEF OP NOTon 06-04-2023 BRIEF OP NOT HNO ID: [id number] Author: DYLAN FINN DO Service: Orthopaedic Surgery Author Type: Physician Type: Brief Op Note Filed: 06/04/2023 17:10 Note Text: BRIEF OPERATIVE / PROCEDURE NOTE LOG ID: [id number] SURGERY/PROCEDURE DATE: 06/04/2023 INCISION/PROCEDURE START TIME: 2:11 PM INCISION CLOSE/PROCEDURE END TIME: SURGEON(S)/PROCEDURALIST(S) AND SHAREPOINT ENGINEER(S): Surgeon(s) and Role: * Dylan Finn DO - Primary Dining Car Hop: Madonna Martinez SA; Darrian Mullen SA SURGERY/PROCEDURE(S): [...] DATE: June 04, 2023 TIME: 5:08 PM [facility] Bacteria Bld Culton 06-04-19 24 Bacteria identified Cx Nom (Bld) CULTURE, BLOOD: No growth 5 days Normal [facility] Comment on above: Performed By: #### 6 00-7 ####[facility] [id number] [place] [address] [place] Bacteria identified Cx Nom (Bld) CULTURE, BLOOD: No growth 5 days Normal [facility] Comment on above: Performed By: #### 6 00-7 ####[facility] [id number] [place] [address] [place] Bacteria Spec Anaerobe Culto n 06-04-2023 Bacteria identified Anaer cx Nom (Unsp spec) Negative Normal [facility] Comment on above: Performed By: #### 6 35-3 ####[facility] [id number] [place] [address] [place] Performed By: #### 4 3408-4, 635-3 ####[facility] [id number] [place] [address] [place] Bacteria Tiss Culton [...] , Intermediate >4 , Resistant >8 Abnormal [facility] Comment on above: Performed By: #### 4 3408-4, 635-3 ####[facility] [id number] [place] [id number] [place] Bacteria Wnd Culton 06-04-19 24 Bacteria identified Cx Nom (Wound) CULTURE, WOUND: No growth 3 days GRAM STAIN: Rare Polymorphonuclear leukocytes No organisms seen Normal [facility] Comment on above: Performed By: #### 6 462-6 ####[facility] [id number] [place] [address] [place] Basic metabolic 2000 panelon 06-04-2023 Anion gap [Moles/Vol] 5 mmol/L Normal 5-16 [facility] Comment on above: Order Comment: Speci men Type: BLOOD SPECIMEN Ordering Facility[facility] Address: [address] [place] [address] Performed By: #### 5 7021-8, 4537-7 #### [facility] CLIA [id number] [address] [place] [address] [place] Calcium [Mass/Vol] 10.3 mg/dL Normal 8.5-10.5 [facility] Comment on above: Order Comment: Speci men Type: BLOOD SPECIMEN Ordering Facility: [facility] Address: [address] [place] [address] Performed By: #### 5 7021-8, 4537-7 #### [facility] CLIA [id number] [address] [place] [address] [place] Chloride [Moles/Vol] 106 mmol/L Normal 98-107 [facility] Comment on above: Order Comment: Speci men Type: BLOOD SPECIMEN Ordering Facility: [facility] Address: [address] [place] [address] Performed By: #### 5 7021-8, 4537-7 #### [facility] CLIA [id number] [address] [place], [place] [address] [place] CO2 [Moles/Vol] 27 mmol/L Normal 21-32 [facility] Comment on above: Order Comment: Speci men Type: BLOOD SPECIMEN Ordering Facility: [facility] Address: [address] [place] [address] Performed By: #### 5 7021-8, 4537-7 #### [facility] CLIA [id number] [address] [place] [address] [place] Creatinine [Mass/Vol] 0.52 mg/dL Normal 0.51-0.95 [facility] Comment on above: Order Comment: Speci men Type: BLOOD SPECIMEN Ordering Facility: [facility] Address: [address] [place] [address] Result Comment: Caron ents receiving either N-Acetylcysteine (NAC) or Metamizole prior to venipuncture, may have falsely depressed results. Performed By: #### 5 7021-8, 4537-7 #### [facility] CLIA [id number] [address] [place] [address] Creatinine and Glomerular filtration rate.predicted panel (S/P/Bld) 95 mL/min/1.73m??? Normal >=60 [facility] Comment on above: Order Comment: Anny hong Type: BLOOD SPECIMEN Ordering Facility: [facility] Address: [address] [place] [address] Result Comment: Neda mated Glomerular Filtration Rate [...] Performed By: #### 5 7021-8, 4537-7 #### [facility] CLIA [id number] [address] [place] [address] [place] Glucose [Mass/Vol] 109 mg/dL High 70-100 [facility] Comment on above: Order Comment: Anny hong Type: BLOOD SPECIMEN Ordering Facility: [facility] Address: [address] [place] [address] Result Comment: The [place] [employer] (ADA) provides guidance for cutoff [...] Standards of Medical Care in Diabetes 2016, [place] [employer]. Diabetes Care. 2016.39(Suppl 1). Results may be falsely elevated after the administration of Sulfapyridine. Results may be falsely depressed after the administration of Sulfasalazine. Performed By: #### 5 7021-8, 4537-7 #### [facility] CLIA [id number] [address] [place] [address] [place] Potassium [Moles/Vol] 5.0 mmol/L Normal 3.5-5.1 [facility] Comment on above: Order Comment: Speci men Type: BLOOD SPECIMEN Ordering Facility: [facility] Address: [address] [place] [address] Performed By: #### 5 7021-8, 4537-7 #### [facility] CLIA [id number] [address] [place] [address] [place] Sodium [Moles/Vol] 138 mmol/L Normal 136-145 [facility] Comment on above: Order Comment: Speci men Type: BLOOD SPECIMEN Ordering Facility: [facility] Address: [address] [place] [address] Performed By: #### 5 7021-8, 4537-7 #### [facility] CLIA [id number] [address] [place] [address] [place] Urea nitrogen [Mass/Vol] 28 mg/dL High 7-26 [facility] Comment on above: Order Comment: Speci men Type: BLOOD SPECIMEN Ordering Facility: [facility] Address: [address] [place] [address] Performed By: #### 5 7021-8, 4537-7 #### [facility] CLIA [id number] [address] [place] [address] [place] CBC W Auto Differential pane l (Bld)on 06-04-2023 Basophils (Bld) [#/Vol] 10*3/uL Normal <0.11 [facility] Comment on above: Order Comment: Speci men Type: BLOOD SPECIMEN Ordering Facility: [facility] Address: [address] [place] [address] Performed By: #### 5 7021-8, 453-7 #### [facility] CLIA [id number] [address] [place] [address] [place] Basophils/100 WBC (Bld) 0.1 % Normal [facility] Comment on above: Order Comment: Speci men Type: BLOOD SPECIMEN Ordering Facility: [facility] Address: [address] [place] [address] Performed By: #### 5 7021-8, 7 #### [facility] CLIA [id number] [address] [place] [address] [place] Differential cell count method Nom (Bld) Auto Normal [facility] Comment on above: Order Comment: Speci men Type: BLOOD SPECIMEN Ordering Facility: [facility] Address: [address] [place] [address] Performed By: #### 5 7021-8, 7-7 #### [facility] CLIA [id number] [address] [place] [address] [place] Eosinophils (Bld) [#/Vol] 0.03 10*3/uL Normal <0.46 [facility] Comment on above: Order Comment: Speci men Type: BLOOD SPECIMEN Ordering Facility: [facility] Address: [address] [place] [address] Performed By: #### 5 7021-8, 4537-7 #### [facility] CLIA [id number] [address] [place] [address] [place] Eosinophils/100 WBC (Bld) 0.2 % Normal [facility] Comment on above: Order Comment: Speci men Type: BLOOD SPECIMEN Ordering Facility: [facility] Address: [address] [place] [address] Performed By: #### 5 7021-8, 4537-7 #### [facility] CLIA [id number] [address] [place] [address] [place] Erythrocyte distribution width (RBC) [Ratio] 14.8 % Normal 11.5-15.0 [facility] Comment on above: Order Comment: Speci men Type: BLOOD SPECIMEN Ordering Facility: [facility] Address: [address] [place] [address] Performed By: #### 5 7021-8, 4537-7 #### [facility] CLIA [id number] [address] [place] [address] [place] Hematocrit (Bld) [Volume fraction] 33.7 % Low 36.0-46.0 [facility] Comment on above: Order Comment: Speci men Type: BLOOD SPECIMEN Ordering Facility: [facility] Address: [address] [place] [address] Performed By: #### 5 7021-8, 4537-7 #### [facility] CLIA [id number] [address] [place] [address] [place] Hemoglobin (Bld) [Mass/Vol] 10.8 g/dL Low 11.5-15.5 [facility] Comment on above: Order Comment: Speci men Type: BLOOD SPECIMEN Ordering Facility: [facility] Address: [address] [place] [address] Performed By: #### 5 7021-8, 4537-7 #### [facility] CLIA [id number] [address] [place] [address] [place] Immature granulocytes (Bld) [#/Vol] 0.14 10*3/uL High <0.10 [facility] Comment on above: Order Comment: Speci men Type: BLOOD SPECIMEN Ordering Facility: [facility] Address: [address] [place] [address] Performed By: #### 5 7021-8, 4536-7 #### [facility] CLIA [id number] [address] [place] [address] [place] Immature granulocytes/100 WBC (Bld) 0.9 % Normal [facility] Comment on above: Order Comment: Speci men Type: BLOOD SPECIMEN Ordering Facility: [facility] Address: [address] [place] [address] Performed By: #### 5 7021-8, 7 #### [facility] CLIA [id number] [address] [place] [address] [place] Lymphocytes (Bld) [#/Vol] 2.95 10*3/uL Normal 1.00-4.00 [facility] Comment on above: Order Comment: Speci men Type: BLOOD SPECIMEN Ordering Facility: [facility] Address: [address] [place] [address] Performed By: #### 5 7021-8, 7 #### [facility] CLIA [id number] [address] [place] [address] [place] Lymphocytes/100 WBC (Bld) 18.9 % Normal [facility] Comment on above: Order Comment: Speci men Type: BLOOD SPECIMEN Ordering Facility: [facility] Address: Formerly named [facility] [place] [address] Performed By: #### 5 7021-8, 4536-7 #### [facility] CLIA [id number] [address] [place] [address] [place] MCH (RBC) [Entitic mass] 25.0 pg Low 26.0-34.0 [facility] Comment on above: Order Comment: Speci men Type: BLOOD SPECIMEN Ordering Facility: [facility] Address: Formerly named [facility] [place] [facility] [place] [address] Performed By: #### 5 7021-8, 4536-7 #### [facility] CLIA [id number] [address] [place] [address] [place] MCHC (RBC) [Mass/Vol] 32.0 g/dL Normal 30.5-36.0 [facility] Comment on above: Order Comment: Speci men Type: BLOOD SPECIMEN Ordering Facility: [facility] Address: [address] [place] [id number] Performed By: #### 5 7021-8, 4537-7 #### [facility] CLIA [id number] [address] [place] [address] [place] MCV (RBC) [Entitic vol] 78.0 fL Low 80.0-100.0 [facility] Comment on above: Order Comment: Speci men Type: BLOOD SPECIMEN Ordering Facility: [facility] Address: [address] [place] [address] Performed By: #### 5 7021-8, 4537-7 #### [facility] CLIA [id number] [address] [place] [address] [place] Monocytes (Bld) [#/Vol] 1.14 10*3/uL High <0.87 [facility] Comment on above: Order Comment: Speci men Type: BLOOD SPECIMEN Ordering Facility: [facility] Address: [address] [place] [address] Performed By: #### 5 7021-8, 4537-7 #### [facility] CLIA [id number] [address] [place] [address] [place] Monocytes/100 WBC (Bld) 7.3 % Normal [facility] Comment on above: Order Comment: Speci men Type: BLOOD SPECIMEN Ordering Facility: [facility] Address: [address] [place] [address] Performed By: #### 5 7021-8, 4537-7 #### [facility] CLIA [id number] [address] [place] [address] [place] Neutrophils (Bld) [#/Vol] 11.33 10*3/uL High 1.45-7.50 [facility] Comment on above: Order Comment: Speci men Type: BLOOD SPECIMEN Ordering Facility: [facility] Address: [address] [place], [place] [address] Performed By: #### 5 7021-8, 4537-7 #### [facility] CLIA [id number] [address] [place] [address] [place] Neutrophils/100 WBC (Bld) 72.6 % Normal [facility] Comment on above: Order Comment: Speci men Type: BLOOD SPECIMEN Ordering Facility: [facility] Address: [address] [place] [address] Performed By: #### 5 7021-8, 4536-7 #### [facility] CLIA [id number] [address] [place] [address] [place] Nucleated RBC (Bld) [#/Vol] 10*3/uL Normal <0.01 [facility] Comment on above: Order Comment: Speci men Type: BLOOD SPECIMEN Ordering Facility: [facility] Address: [address] [place] [address] Performed By: #### 5 7021-8, 4536-7 #### [facility] CLIA [id number] [address] [place] [address] [place] Nucleated RBC/100 WBC (Bld) [Ratio] 0.0 /100 WBC Normal [facility] Comment on above: Order Comment: Speci men Type: BLOOD SPECIMEN Ordering Facility: [facility] Address: [address] [place] [address] Performed By: #### 5 7021-8, 4536-7 #### [facility] CLIA [id number] [address] [place] [address] [place] Platelet mean volume (Bld) [Entitic vol] 8.5 fL Low 9.0-12.7 [facility] Comment on above: Order Comment: Speci men Type: BLOOD SPECIMEN Ordering Facility: [facility] Address: [address] [place] [address] Performed By: #### 5 7021-8, 4537-7 #### [facility] CLIA [id number] [address] [place] [address] [place] Platelets (Bld) [#/Vol] 441 10*3/uL High 150-400 [facility] Comment on above: Order Comment: Speci men Type: BLOOD SPECIMEN Ordering Facility: [facility] Address: [address] [place], [place] [address] Performed By: #### 5 7021-8, 4537-7 #### [facility] CLIA [id number] [address] [place], [place] [address] [place] RBC (Bld) [#/Vol] 4.32 10*6/uL Normal 3.90-5.20 [facility] Comment on above: Order Comment: Speci men Type: BLOOD SPECIMEN Ordering Facility: [facility] Address: [address] [place], [place] [address] Performed By: #### 5 7021-8, 4537-7 #### [facility] CLIA [id number] [address] [place], [place] [address] [place] WBC (Bld) [#/Vol] 15.61 10*3/uL High 3.70-11.00 [facility] Comment on above: Order Comment: Speci men Type: BLOOD SPECIMEN Ordering Facility: [facility] Address: [address] [place] [address] Performed By: #### 5 7021-8, 4537-7 #### [facility] CLIA [id number] [address] [place], [place] [address] [place] ECHOon 06-04-2023 Echocardiography Echocardiography Rep ort: Transthoracic Echo [facility] Date of service: 06/04/2023 10:45:44 AM Ordering physician: BUCK YAALA Indication: INFECTIVE ENDOCARDITIS Technologist: Eze Vicente RDCS [...] * * Final * * * CC [employer] Image : [id number] Normal [facility] Iron and Iron binding capaci ty panelon 06-04-2023 Iron [Mass/Vol] 58 ug/dL Normal 50-170 [facility] Comment on above: Order Comment: Anny hong Type: BLOOD SPECIMEN Ordering Facility: [facility] Address: [address] [place] [address] Result Comment: Caron ents treated with metal-binding drugs (e.g.deferoxamine) may have depressed iron values, as chelated iron may not properly react in the Siemens iron assay. Performed By: #### 5 7021-8, 4537-7 #### [facility] CLIA [id number] [address] [place] [address] [place] Iron binding capacity [Mass/Vol] 336 ug/dL Normal 221-481 [facility] Comment on above: Order Comment: Anny hong Type: BLOOD SPECIMEN Ordering Facility: [facility] Address: [address] [place], [place] [address] Performed By: #### 5 7021-8, 4537-7 #### [facility] CLIA [id number] [address] [place], [place] [address] [place] Iron/TIBC [Molar ratio] 17.3 % Low 22.0-44.0 [facility] Comment on above: Order Comment: Speci men Type: BLOOD SPECIMEN Ordering Facility: [facility] Address: [address] [place], [place] [address] Performed By: #### 5 7021-8, 4537-7 #### [facility] CLIA [id number] [address] [place], [place] [address] [place] Microorganism Spec Culton Microorganism identified Cx Nom (Unsp spec) CULTURE, FUNGAL: No Fungus isolated after 28 days FUNGAL SMEAR: No fungus seen Normal [facility] Comment on above: Performed By: #### 1 1475-1 ####[facility] [id number] [facility] [place] [place] [id number] [place] OPERATIVE NOon 06-04-2023 OPERATIVE NO HNO ID: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 MCH (RBC) [Entitic mass] 28.3 pg Normal 26.0-34.0 [facility] Comment on above: Performed By: #### L [id number] ####Registered Nurse Step Down: NED PAK ([id number])[facility])[address] [place] [address] MCV (RBC) [Entitic vol] 87.9 fL Normal 80.0-98.0 [facility] Comment on above: Performed By: #### L [id number] ####Registered Nurse Step Down: NED PAK ([id number])[facility])[address] [place] [address] Monocytes (Bld) [#/Vol] 0.8 10*3/uL Normal 0.0-0.8 [facility] Comment on above: Performed By: #### L [id number] ####Registered Nurse Step Down: NED PAK ([id number])[facility])[address] [place] [address] Monocytes/100 WBC (Bld) 9.4 % Normal 2.0-10.0 [facility] Comment on above: Performed By: #### L [id number] ####Registered Nurse Step Down: NED PAK ([id number])[facility])[address] [place] [address] Neutrophils (Bld) [#/Vol] 6.4 10*3/uL Normal 1.8-7.0 [facility] Comment on above: Performed By: #### L [id number] ####Registered Nurse Step Down: NED PAK ([id number])[facility])[address] [place] [address] Neutrophils/100 WBC (Bld) 74.4 % Normal 40.0-80.0 [facility] Comment on above: Performed By: #### L [id number] ####Registered Nurse Step Down: NED PAK ([id number])[facility])[address] [place] [address] NRBC (PER 100 WBCS) BY AUTOMATED COUNT 0.0 /100 WBCs Normal 0.0-2.0 [facility] Comment on above: Performed By: #### L [id number] ####Registered Nurse Step Down: NED PAK ([id number])[facility] ([facility])[address] [place] [address] Platelet mean volume (Bld) [Entitic vol] 6.7 fL Low 7.4-12.4 [facility] Comment on above: Performed By: #### L [id number] ####Registered Nurse Step Down: NED PAK ([id number])[facility] ([facility])[address] [place] [address] Platelets (Bld) [#/Vol] 510 10*3/uL High 140-440 [facility] Comment on above: Performed By: #### L [id number] ####Registered Nurse Step Down: NED PAK ([id number])[facility] ([facility])[address] [place] [address] RBC (Bld) [#/Vol] 2.71 10*6/uL Low 3.8-5.20 [facility] Comment on above: Performed By: #### L [id number] ####Registered Nurse Step Down: NED PAK ([id number])[facility] ([facility])[address] [place] [address] WBC (Bld) [#/Vol] 8.6 10*3/uL Normal 3.6-10.7 [facility] Comment on above: Performed By: #### L [id number] ####Registered Nurse Step Down: NED PAK ([id number])[facility] ([facility])[address] [place] [address] MAGNESIUMon 02-06-2023 Magnesium [Mass/Vol] 2.5 mg/dL High 1.6-2.3 [facility] Comment on above: Performed By: #### L AB103, [id number], LAB15 ####Registered Nurse Step Down: NED PAK ([phone])[facility])[address] [place] [address] Nursing Noteon 02-06-2023 Nursing Note Notified Renée wolf's daughter that patient was transferred to . Normal [facility] Nursing Note Transport here to [facility] patient to [facility]5. 4 bags + of belongings sent with patient. Normal [facility] Nursing Note Patient pulled up in bed. Bed pads changed. BMP sent to lab. Normal [facility] Nursing Note Patient with gown of f and at end of bed. Put gown back on patient. Pulled patient up in bed and changed pull pads. Normal [facility] PHOSPHORUSon 02-06-2023 Phosphate [Mass/Vol] 3.6 mg/dL Normal 2.5-4.5 [facility] Comment on above: Performed By: #### L AB103, [id number], LAB15 ####Registered Nurse Step Down: NED PAK ([id number])[facility])[address] [place] [address] Progress Noteon 02-06-2023 Progress Note Normal [facility] Progress Note Normal [facility] BASIC METABOLIC PANELon 11- Anion gap [Moles/Vol] 4 mmol/L Normal 3-13 [facility] Comment on above: Performed By: #### L AB15, [id number], [id number] ####Registered Nurse Step Down: NED PAK ([id number])[address] Calcium [Mass/Vol] 9.0 mg/dL Normal 8.4-10.4 [facility] Comment on above: Performed By: #### L AB15, [id number], [id number] ####Registered Nurse Step Down: NED PAK ([id number])[facility])[address] [place] [address] Chloride [Moles/Vol] 110 mmol/L High 98-107 [facility] Comment on above: Performed By: #### L AB15, [id number], [id number] ####Registered Nurse Step Down: NED PAK ([id number])[facility])[address] [place] [address] CO2 [Moles/Vol] 31 mmol/L High 22-30 [facility] Comment on above: Performed By: #### L AB15, [id number], [id number] ####Registered Nurse Step Down: NED PAK ([id number])[facility])[address] [place] [address] Creatinine [Mass/Vol] 0.82 mg/dL Normal 0.52-1.04 [facility] Comment on above: Performed By: #### L AB15, DGL840, [id number] ####Registered Nurse Step Down: NED PAK ([id number])[facility])[address] [place] [address] [place] GLOMERULAR FILTRATION RATE ML/MIN/1.73 SQ M.PREDICTED 73.3 mL/min/1.73m*2 Normal >60.0 [facility] Comment on above: Result Comment: Calc ulation based on the Chronic Kidney Disease Epidemiology Collaboration (CKD-EPI) equation refit without adjustment for race Performed By: #### L AB15, [id number], [id number] ####Registered Nurse Step Down: NED PAK ([id number])[facility])[address] [place] [address] Glucose [Mass/Vol] 102 mg/dL High 70-100 [facility] Comment on above: Performed By: #### L AB15, [id number], PRA075 ####Registered Nurse Step Down: NED PAK ([id number])[facility])[address] [place] [address] Potassium [Moles/Vol] 3.4 mmol/L Low 3.5-5.1 [facility] Comment on above: Performed By: #### L AB15, [id number], [id number] ####Registered Nurse Step Down: NED PAK ([id number])[facility])[address] [place] [address] [place] Sodium [Moles/Vol] 146 mmol/L High 135-145 [facility] Comment on above: Performed By: #### L AB15, [id number], [id number] ####Registered Nurse Step Down: NED PAK ([id number])[facility])[address] [place] [address] [place] Urea nitrogen [Mass/Vol] 22 mg/dL High 7-17 [facility] Comment on above: Performed By: #### L AB15, [id number], [id number] ####Registered Nurse Step Down: NED PAK ([id number])[facility])[address] [place] [address] CARECOORDon 02-05-2023 CARECOORD Normal [facility] CBC WITH AUTO DIFFERENTIALon 02-05-2023 Basophils (Bld) [#/Vol] 0.1 10*3/uL Normal 0.0-0.2 [facility] Comment on above: Performed By: #### L [id number] ####Registered Nurse Step Down: NED PKA ([id number])[facility])[address] [place] [address] Basophils/100 WBC (Bld) 0.5 % Normal 0.0-2.0 [facility] Comment on above: Performed By: #### L [id number] ####Registered Nurse Step Down: NED PAK ([id number])[facility])[address] [place] [address] Eosinophils (Bld) [#/Vol] 0.0 10*3/uL Normal 0.0-0.5 [facility] Comment on above: Performed By: #### L [id number] ####Registered Nurse Step Down: NED PAK ([id number])[facility])[address] [place] [address] Eosinophils/100 WBC (Bld) 0.2 % Low 1.0-6.0 [facility] Comment on above: Performed By: #### L [id number] ####Registered Nurse Step Down: NED PAK ([id number])[facility])[address] [place] [address] Erythrocyte distribution width (RBC) [Ratio] 15.9 % High 11.5-14.5 [facility] Comment on above: Performed By: #### L [id number] ####Registered Nurse Step Down: NED PAK ([id number])[facility])[address] [place] [address] ERYTHROCYTE MEAN CORPUSCULAR HEMOGLOBIN CONCENTRATION (G/DL) BY AUTOMATED 32.0 % Normal 32.0-36.0 [facility] Comment on above: Performed By: #### L [id number] ####Registered Nurse Step Down: NED PAK ([id number])[facility])[address] [place] [address] Hematocrit (Bld) [Volume fraction] 25.8 % Low 35.0-47.0 [facility] Comment on above: Performed By: #### L [id number] ####Registered Nurse Step Down: NED PAK ([id number])[facility])[address] [place] [address] Hemoglobin (Bld) [Mass/Vol] 8.3 g/dL Low 11.7-16.0 [facility] Comment on above: Performed By: #### L [id number] ####Registered Nurse Step Down: NED PAK ([id number])[facility])[address] [place] [address] Lymphocytes (Bld) [#/Vol] 1.8 10*3/uL Normal 1.0-4.3 [facility] Comment on above: Performed By: #### L [id number] ####Registered Nurse Step Down: NED PAK ([id number])[facility])[address] [place] [address] Lymphocytes/100 WBC (Bld) 10.9 % Low 20.0-40.0 [facility] Comment on above: Performed By: #### L [id number] ####Registered Nurse Step Down: NED PAK ([id number])[facility])[address] [place] [address] MCH (RBC) [Entitic mass] 28.0 pg Normal 26.0-34.0 [facility] Comment on above: Performed By: #### L [id number] ####Registered Nurse Step Down: NED PAK ([id number])[facility])[address] [place] [address] MCV (RBC) [Entitic vol] 87.4 fL Normal 80.0-98.0 [facility] Comment on above: Performed By: #### L [id number] ####Registered Nurse Step Down: NED PAK ([id number])[facility])[address] [place] [address] Monocytes (Bld) [#/Vol] 1.2 10*3/uL High 0.0-0.8 [facility] Comment on above: Performed By: #### L [id number] ####Registered Nurse Step Down: NED PAK ([id number])[facility] [facility])[address] [place] [address] Monocytes/100 WBC (Bld) 7.3 % Normal 2.0-10.0 [facility] Comment on above: Performed By: #### L [id number] ####Registered Nurse Step Down: NED PAK ([id number])[facility])[address] [place] [address] Neutrophils (Bld) [#/Vol] 13.6 10*3/uL High 1.8-7.0 [facility] Comment on above: Performed By: #### L [id number] ####Registered Nurse Step Down: NED PAK ([id number])[facility])[address] [place] [address] Neutrophils/100 WBC (Bld) 81.1 % High 40.0-80.0 [facility] Comment on above: Performed By: #### L [id number] ####Registered Nurse Step Down: NED PAK ([id number])[facility])[address] [place] [address] NRBC (PER 100 WBCS) BY AUTOMATED COUNT 0.0 /100 WBCs Normal 0.0-2.0 [facility] Comment on above: Performed By: #### L [id number] ####Registered Nurse Step Down: NED PAK ([id number])[facility])[address] [place] [address] Platelet mean volume (Bld) [Entitic vol] 7.0 fL Low 7.4-12.4 [facility] Comment on above: Performed By: #### L [id number] ####Registered Nurse Step Down: NED PAK ([id number])[facility] ([facility])[address] [place] [address] Platelets (Bld) [#/Vol] 571 10*3/uL High 140-440 [facility] Comment on above: Performed By: #### L [id number] ####Registered Nurse Step Down: NED PAK ([id number])[facility] ([facility])[address] [place] [address] RBC (Bld) [#/Vol] 2.95 10*6/uL Low 3.8-5.20 [facility] Comment on above: Performed By: #### L [id number] ####Registered Nurse Step Down: NED PAK ([phone])[facility] ([facility])[address] [place] [address] WBC (Bld) [#/Vol] 17.0 10*3/uL High 3.6-10.7 [facility] Comment on above: Performed By: #### L [id number] ####Registered Nurse Step Down: NED PAK ([phone])[facility] ([facility])[address] [place] [address] MAGNESIUMon 02-05-2023 Magnesium [Mass/Vol] 2.7 mg/dL High 1.6-2.3 [facility] Comment on above: Performed By: #### Tameka AB15, [id number], [id number] ####Registered Nurse Step Down: NED PAK ([phone])[facility] ([facility])[address] [place] [address] PHOSPHORUSon 02-05-2023 Phosphate [Mass/Vol] 3.5 mg/dL Normal 2.5-4.5 [facility] Comment on above: Performed By: #### L AB15, [id number], [id number] ####Registered Nurse Step Down: NED PAK ([id number])[facility] ([facility])[address] [place] [address] Progress Noteon 02-05-2023 Progress Note Normal [facility] Progress Note Normal [facility] Progress Note Normal [facility] Progress Note Normal [facility] Progress Note Normal [facility] XR CHEST 1 VIEWon 02-05-2023 XR CHEST 1 VIEW Normal [facility] BASIC METABOLIC PANELon 01-20 Anion gap [Moles/Vol] 1 mmol/L Low 3-13 [facility] Comment on above: Performed By: #### L AB103, LAB15, [id number], [id number] ####Registered Nurse Step Down: NED PAK ([phone])[facility] ([facility])[address] [place] [address] Calcium [Mass/Vol] 8.0 mg/dL Low 8.4-10.4 [facility] Comment on above: Performed By: #### L AB103, LAB15, KHD900, [id number] ####Registered Nurse Step Down: NED PAK ([id number])[facility] ([facility])[address] [place] [address] [place] Chloride [Moles/Vol] 106 mmol/L Normal 98-107 [facility] Comment on above: Performed By: #### L AB103, LAB15, HCR759, [id number] ####Registered Nurse Step Down: NED PAK ([id number])[facility] ([facility])[address] [place] [address] CO2 [Moles/Vol] 32 mmol/L High 22-30 [facility] Comment on above: Performed By: #### L AB103, LAB15, GFQ137, [id number] ####Registered Nurse Step Down: NED PAK ([id number])[facility])[address] [place] [address] Creatinine [Mass/Vol] 0.56 mg/dL Normal 0.52-1.04 [facility] Comment on above: Performed By: #### L AB103, LAB15, CRK127, [id number] ####Registered Nurse Step Down: NED PAK ([id number])[facility] ([facility])[address] [place] [address] [place] GLOMERULAR FILTRATION RATE ML/MIN/1.73 SQ M.PREDICTED >90.0 Normal >60.0 [facility] Comment on above: Result Comment: Calc ulation based on the Chronic Kidney Disease Epidemiology Collaboration (CKD-EPI) equation refit without adjustment for race Performed By: #### L AB103, LAB15, LKD337, CWL550 ####Registered Nurse Step Down: NED PAK ([id number])[facility])[address] [place] [address] Glucose [Mass/Vol] 123 mg/dL High 70-100 [facility] Comment on above: Performed By: #### L AB103, LAB15, INK748, SFN187 ####Registered Nurse Step Down: NED PAK ([id number])[facility])[address] [place] [address] Potassium [Moles/Vol] 3.7 mmol/L Normal 3.5-5.1 [facility] Comment on above: Performed By: #### L AB103, LAB15, NFT521, LPQ405 ####Registered Nurse Step Down: NED PAK ([id number])[facility] ([facility])[address] [place] [address] Sodium [Moles/Vol] 138 mmol/L Normal 135-145 [facility] Comment on above: Performed By: #### L AB103, LAB15, FAL950, ODJ636 ####Registered Nurse Step Down: NED PAK ([phone])[facility])[address] [place] [address] Urea nitrogen [Mass/Vol] 18 mg/dL High 7-17 [facility] Comment on above: Performed By: #### L AB103, LAB15, AGM198, BWH110 ####Registered Nurse Step Down: NED PAK ([id number])[facility])[address] [place] [address] CARECOORDon 02-04-2023 CARECOORD Normal [facility] CBC WITH AUTO DIFFERENTIALon 02-04-2023 Basophils (Bld) [#/Vol] 0.0 10*3/uL Normal 0.0-0.2 [facility] Comment on above: Performed By: #### L [id number] ####Registered Nurse Step Down: NED PAK ([id number])[facility])[address] [place] [address] Basophils/100 WBC (Bld) 0.2 % Normal 0.0-2.0 [facility] Comment on above: Performed By: #### L [id number] ####Registered Nurse Step Down: NED PAK ([id number])[facility])[address] [place] [address] Eosinophils (Bld) [#/Vol] 0.0 10*3/uL Normal 0.0-0.5 [facility] Comment on above: Performed By: #### L [id number] ####Registered Nurse Step Down: NED PAK ([id number])[facility])[address] [place] [address] Eosinophils/100 WBC (Bld) 0.2 % Low 1.0-6.0 [facility] Comment on above: Performed By: #### L [id number] ####Registered Nurse Step Down: NED PAK ([id number])[facility])[address] [place] [address] Erythrocyte distribution width (RBC) [Ratio] 15.8 % High 11.5-14.5 [facility] Comment on above: Performed By: #### L [id number] ####Registered Nurse Step Down: NED PAK ([id number])[facility])[address] [place] [address] ERYTHROCYTE MEAN CORPUSCULAR HEMOGLOBIN CONCENTRATION (G/DL) BY AUTOMATED 31.9 % Low 32.0-36.0 [facility] Comment on above: Performed By: #### L [id number] ####Registered Nurse Step Down: NED PAK ([id number])[facility])[address] [place] [address] Hematocrit (Bld) [Volume fraction] 23.0 % Low 35.0-47.0 [facility] Comment on above: Performed By: #### L [id number] ####Registered Nurse Step Down: NED PAK ([id number])[facility])[address] [place] [address] Hemoglobin (Bld) [Mass/Vol] 7.3 g/dL Low 11.7-16.0 [facility] Comment on above: Performed By: #### L [id number] ####Registered Nurse Step Down: NED PAK ([id number])[facility])[address] [place] [address] Lymphocytes (Bld) [#/Vol] 1.3 10*3/uL Normal 1.0-4.3 [facility] Comment on above: Performed By: #### L [id number] ####Registered Nurse Step Down: NED PAK ([id number])[facility])[address] [place] [address] Lymphocytes/100 WBC (Bld) 7.5 % Low 20.0-40.0 [facility] Comment on above: Performed By: #### L [id number] ####Registered Nurse Step Down: END PAK ([id number])[facility])[address] [place] [address] MCH (RBC) [Entitic mass] 28.0 pg Normal 26.0-34.0 [facility] Comment on above: Performed By: #### L [id number] ####Registered Nurse Step Down: NED PAK ([id number])[facility])[address] [place] [address] MCV (RBC) [Entitic vol] 87.8 fL Normal 80.0-98.0 [facility] Comment on above: Performed By: #### L [id number] ####Registered Nurse Step Down: NED PAK ([id number])[facility])[address] [place] [address] Monocytes (Bld) [#/Vol] 0.9 10*3/uL High 0.0-0.8 [facility] Comment on above: Performed By: #### L [id number] ####Registered Nurse Step Down: NED PAK ([id number])[facility])[address] [place] [address] Monocytes/100 WBC (Bld) 5.5 % Normal 2.0-10.0 [facility] Comment on above: Performed By: #### L [id number] ####Registered Nurse Step Down: NED PAK ([id number])[facility])[address] [place] [address] Neutrophils (Bld) [#/Vol] 14.4 10*3/uL High 1.8-7.0 [facility] Comment on above: Performed By: #### L [id number] ####Registered Nurse Step Down: NED PAK ([id number])[facility])[address] [place] [address] Neutrophils/100 WBC (Bld) 86.6 % High 40.0-80.0 [facility] Comment on above: Performed By: #### L [id number] ####Registered Nurse Step Down: NED PAK ([id number])[facility])[address] [place] [address] NRBC (PER 100 WBCS) BY AUTOMATED COUNT 0.0 /100 WBCs Normal 0.0-2.0 [facility] Comment on above: Performed By: #### L [id number] ####Registered Nurse Step Down: NED PAK ([id number])[facility])[address] [place] [address] Platelet mean volume (Bld) [Entitic vol] 7.3 fL Low 7.4-12.4 [facility] Comment on above: Performed By: #### L [id number] ####Registered Nurse Step Down: NED PAK ([id number])[facility])[address] [place] [address] Platelets (Bld) [#/Vol] 410 10*3/uL Normal 140-440 [facility] Comment on above: Performed By: #### L [id number] ####Registered Nurse Step Down: NED PAK ([id number])[facility])[address] [place] [address] [place] RBC (Bld) [#/Vol] 2.62 10*6/uL Low 3.8-5.20 [facility] Comment on above: Performed By: #### L [id number] ####Registered Nurse Step Down: NED PAK ([id number])[facility])[address] [place] [address] WBC (Bld) [#/Vol] 16.2 10*3/uL High 3.6-10.7 [facility] Comment on above: Performed By: #### L [id number] ####Registered Nurse Step Down: NED PAK ([id number])[address] MAGNESIUMon 02-04-2023 Magnesium [Mass/Vol] 2.5 mg/dL High 1.6-2.3 [facility] Comment on above: Performed By: #### L AB103, LAB15, OOJ395, ACA737 ####Registered Nurse Step Down: NED PAK ([id number])[address] Nursing Noteon 02-04-2023 Nursing Note Normal [facility] Nursing Note Patient without any void since duarte removed. Bladder scan done indicating >550cc of volume in bladder. Dr. Jalloh on unit and notified face to face. Will straight cath per protocol and have nightshift reassess bladder scan. Will con't to monitor. Normal [facility] Nursing Note [address] sterile wa ter inserted through duarte catheter per order set. Clamped off. Then duarte was pulled for bladder trial. Normal [facility] PHOSPHORUSon 02-04-2023 Phosphate [Mass/Vol] 3.2 mg/dL Normal 2.5-4.5 [facility] Comment on above: Performed By: #### L AB103, LAB15, OQL315, UYU097 ####Registered Nurse Step Down: NED PAK ([id number])[address] PROCALCITONIN TESTon 023 PROCALCITONIN 0.14 ng/mL High 0.00-0.09 [facility] Comment on above: Result Comment: SANDRA R COMMENTS:PCT <0.50 = Low risk of severe sepsis and/or septic shock.PCT >2.00 = High risk of severe sepsis and/or septic shock. Performed By: #### L [id number] ####Registered Nurse Step Down: NED PAK ([id number])[facility])[address] [place] [address] Progress Noteon 02-04-2023 Progress Note Normal [facility] Progress Note Normal [facility] Progress Note Normal [facility] Progress Note Normal [facility] Progress Note Normal [facility] TOTAL PROTEINon 02-04-2023 Protein [Mass/Vol] 5.4 g/dL Low 6.3-8.2 [facility] Comment on above: Performed By: #### L AB103, LAB15, UET550, JTJ733 ####Registered Nurse Step Down: NED PAK ([id number])[facility])[address] [place] [address] BASIC METABOLIC PANELon 01-20 Anion gap [Moles/Vol] 6 mmol/L Normal 3-13 [facility] Comment on above: Performed By: #### L AB103, [id number], LAB15 ####Registered Nurse Step Down: NED PAK ([id number])[facility])[address] [place] [address] Calcium [Mass/Vol] 8.4 mg/dL Normal 8.4-10.4 [facility] Comment on above: Performed By: #### L AB103, WOK707, LAB15 ####Registered Nurse Step Down: NED PAK ([id number])[facility])[address] [place] [address] Chloride [Moles/Vol] 106 mmol/L Normal 98-107 [facility] Comment on above: Performed By: #### L AB103, MWA865, LAB15 ####Registered Nurse Step Down: NED PAK ([id number])[facility])[address] [place] [address] CO2 [Moles/Vol] 28 mmol/L Normal 22-30 [facility] Comment on above: Performed By: #### L AB103, RHV919, LAB15 ####Registered Nurse Step Down: NED PAK ([id number])[facility])[address] [place] [address] Creatinine [Mass/Vol] 0.55 mg/dL Normal 0.52-1.04 [facility] Comment on above: Performed By: #### L AB103, TDA619, LAB15 ####Registered Nurse Step Down: NED PAK ([id number])[facility])[address] [place] [address] GLOMERULAR FILTRATION RATE ML/MIN/1.73 SQ M.PREDICTED >90.0 Normal >60.0 [facility] Comment on above: Result Comment: Calc ulation based on the Chronic Kidney Disease Epidemiology Collaboration (CKD-EPI) equation refit without adjustment for race Performed By: #### L AB103, RWD152, LAB15 ####Registered Nurse Step Down: NED PAK ([id number])[facility])[address] [place] [address] Glucose [Mass/Vol] 131 mg/dL High 70-100 [facility] Comment on above: Performed By: #### L AB103, QND306, LAB15 ####Registered Nurse Step Down: NED PAK ([id number])[facility])[address] [place] [address] [place] Potassium [Moles/Vol] 4.0 mmol/L Normal 3.5-5.1 [facility] Comment on above: Performed By: #### L AB103, SJA766, LAB15 ####Registered Nurse Step Down: NED PAK ([id number])[facility])[address] [place] [address] Sodium [Moles/Vol] 140 mmol/L Normal 135-145 [facility] Comment on above: Performed By: #### L AB103, NSP921, LAB15 ####Registered Nurse Step Down: NED PAK ([id number])[facility])[address] [place] [address] Urea nitrogen [Mass/Vol] 19 mg/dL High 7-17 [facility] Comment on above: Performed By: #### L AB103, GTO754, LAB15 ####Registered Nurse Step Down: NED PAK ([id number])[facility])[address] [place] [address] BLOOD CULTUREon 02-03-2023 Bacteria identified Cx Nom (Bld) Normal [facility] Comment on above: Performed By: #### L [id number] ####Registered Nurse Step Down: NED PAK ([id number])[facility])[address] [place] [address] Bacteria identified Cx Nom (Bld) Normal [facility] Comment on above: Performed By: #### L [id number] ####Registered Nurse Step Down: END PAK ([id number])[facility])[address] [place] [address] CBC WITH AUTO DIFFERENTIALon 02-03-2023 Erythrocyte distribution width (RBC) [Ratio] 16.0 % High 11.5-14.5 [facility] Comment on above: Performed By: #### L [id number], [id number] ####Registered Nurse Step Down: NED PAK ([id number])[facility])[address] [place] [address] ERYTHROCYTE MEAN CORPUSCULAR HEMOGLOBIN CONCENTRATION (G/DL) BY AUTOMATED 32.3 % Normal 32.0-36.0 [facility] Comment on above: Performed By: #### L [id number], [id number] ####Registered Nurse Step Down: NED PAK ([id number])[facility])[address] [place] [address] Hematocrit (Bld) [Volume fraction] 26.6 % Low 35.0-47.0 [facility] Comment on above: Performed By: #### L [id number], BDS5423 ####Registered Nurse Step Down: NED PAK ([id number])[facility])[address] [place] [address] Hemoglobin (Bld) [Mass/Vol] 8.6 g/dL Low 11.7-16.0 [facility] Comment on above: Performed By: #### L [id number], [id number] ####Registered Nurse Step Down: NED PAK ([id number])[facility])[address] [place] [address] MCH (RBC) [Entitic mass] 28.1 pg Normal 26.0-34.0 [facility] Comment on above: Performed By: #### L [id number], [id number] ####Registered Nurse Step Down: NED PAK ([id number])[facility])[address] [place] [address] MCV (RBC) [Entitic vol] 87.1 fL Normal 80.0-98.0 [facility] Comment on above: Performed By: #### L [id number], [id number] ####Registered Nurse Step Down: NED PAK ([id number])[facility])[address] [place] [address] NRBC (PER 100 WBCS) BY AUTOMATED COUNT 0.1 /100 WBCs Normal 0.0-2.0 [facility] Comment on above: Performed By: #### L OJ5696, [id number] ####Registered Nurse Step Down: NED PAK ([id number])[facility])[address] [place] [address] Platelet mean volume (Bld) [Entitic vol] 7.8 fL Normal 7.4-12.4 [facility] Comment on above: Performed By: #### L [id number], [id number] ####Registered Nurse Step Down: NED PAK ([id number])[facility])[address] [place] [address] Platelets (Bld) [#/Vol] 446 10*3/uL High 140-440 [facility] Comment on above: Performed By: #### L [id number], [id number] ####Registered Nurse Step Down: NED PAK ([id number])[facility])[address] [place] [address] RBC (Bld) [#/Vol] 3.06 10*6/uL Low 3.8-5.20 [facility] Comment on above: Performed By: #### L [id number], [id number] ####Registered Nurse Step Down: NED PAK ([id number])[facility])[address] [place] [address] WBC (Bld) [#/Vol] 22.5 10*3/uL High 3.6-10.7 [facility] Comment on above: Performed By: #### L [id number], [id number] ####Registered Nurse Step Down: NED PAK ([id number])[facility])[address] [place] [address] CULTURE ANAEROBICon 02-04-20 23 CULTURE ANAEROBIC Normal [facility] Comment on above: Performed By: #### L [id number] ####Registered Nurse Step Down: NED PAK ([id number])[facility])[address] [place] [address] CULTURE, AEROBIC BACTERIA [facility] GRAM STAINon 02-03-2023 CULTURE, AEROBIC BACTERIA WITH GRAM STAIN Normal [facility] Comment on above: Performed By: #### L [id number] ####Registered Nurse Step Down: NED PAK ([phone])[facility])[address] [place] [address] FUNGAL CULTUREon 02-03-2023 FUNGAL CULTURE Normal [facility] Comment on above: Performed By: #### L [id number] ####Registered Nurse Step Down: NED PAK ([id number])[facility])[address] [place] [address] LACTATE DEHYDROGENASE, BODY FLUIDon 02-03-2023 LACTATE DEHYDROGENASE, BODY FLUID BY LAC->PYR 316 U/L Normal No Range [facility] Comment on above: Performed By: #### L AB188, [id number] ####Registered Nurse Step Down: NED PAK ([id number])[facility])[address] [place] [address] MAGNESIUMon 02-03-2023 Magnesium [Mass/Vol] 2.6 mg/dL High 1.6-2.3 [facility] Comment on above: Performed By: #### L AB103, CJD177, LAB15 ####Registered Nurse Step Down: NED PAK ([id number])[facility])[address] [place] [address] MANUAL DIFFERENTIALon 2022 CELLS COUNTED TOTAL (#) IN BLOOD 100 Normal [facility] Comment on above: Performed By: #### L [id number], [id number] ####Registered Nurse Step Down: NED PAK ([id number])[facility])[address] [place] [address] DIFFERENTIAL METHOD Automated differenti al reported after manual slide review Normal [facility] Comment on above: Performed By: #### L [id number], [id number] ####Registered Nurse Step Down: NED PAK ([id number])[facility])[address] [place] [address] LEUKOCYTES (10*3/UL) NUCLEATED ERYTHROCYTE ADJUST 22.5 10*3/uL High 3.6-10.7 [facility] Comment on above: Performed By: #### L [id number], [id number] ####Registered Nurse Step Down: NED PAK ([id number])[facility])[address] [place] [address] LYMPHOCYTES (10*3/UL) IN BLOOD BY MANUAL COUNT 1.8 10*3/uL Normal 1.0-4.3 [facility] Comment on above: Performed By: #### L [id number], [id number] ####Registered Nurse Step Down: NED PAK ([id number])[facility])[address] [place] [address] LYMPHOCYTES TOTAL PER COUNTED LEUKOCYTES BY MANUAL COUNT 8 Normal [facility] Comment on above: Performed By: #### L [id number], [id number] ####Registered Nurse Step Down: NED PAK ([id number])[facility] ([facility])[address] [place] [address] [place] LYMPHOCYTES/100 LEUKOCYTES IN BLOOD BY MANUAL COUNT 8 % Low 20-40 [facility] Comment on above: Performed By: #### L [id number], [id number] ####Registered Nurse Step Down: NED PAK ([id number])[facility] ([facility])[address] [place] [address] [place] MONOCYTES (10*3/UL) IN BLOOD BY MANUAL COUNT 0.9 10*3/uL High 0.0-0.8 [facility] Comment on above: Performed By: #### L [id number], [id number] ####Registered Nurse Step Down: NED PAK ([id number])[facility] ([facility])[address] [place] [address] MONOCYTES TOTAL PER COUNTED LEUKOCYTES BY MANUAL COUNT 4 Normal [facility] Comment on above: Performed By: #### L [id number], [id number] ####Registered Nurse Step Down: NED PAK ([id number])[facility] ([facility])[address] [place] [address] [place] MONOCYTES/100 LEUKOCYTES IN BLOOD BY MANUAL COUNT 4 % Normal 2-10 [facility] Comment on above: Performed By: #### L [id number], [id number] ####Registered Nurse Step Down: NED PAK ([id number])[facility] ([facility])[address] [place] [address] [place] NEUTROPHILS (SEGS+BANDS) (10*3/UL) BY MANUAL COUNT 19.8 10*3/uL High 1.8-7.0 [facility] Comment on above: Performed By: #### L [id number], [id number] ####Registered Nurse Step Down: NED PAK ([id number])[facility] ([facility])[address] [place] [address] [place] NEUTROPHILS TOTAL PER COUNTED LEUKOCYTES BY MANUAL COUNT 88 Normal [facility] Comment on above: Performed By: #### L [id number], [id number] ####Registered Nurse Step Down: NED PAK ([id number])[facility])[address] [place] [address] SEGEMENTED NEUTROPHILS/100 LEUKOCYTES BY MANUAL COUNT 88 % High 40-80 [facility] Comment on above: Performed By: #### L [id number], [id number] ####Registered Nurse Step Down: NED PAK ([id number])[facility])[address] [place] [address] PHOSPHORUSon 02-03-2023 Phosphate [Mass/Vol] 3.5 mg/dL Normal 2.5-4.5 [facility] Comment on above: Performed By: #### L AB103, AMQ536, LAB15 ####Registered Nurse Step Down: NED PAK ([phone])[facility])[address] [place] [address] PROTEIN BODY FLUIDon 023 PROTEIN, BODY FLUID 2.9 g/dL Normal No Range [facility] Comment on above: Performed By: #### L AB188, TSH034 ####Registered Nurse Step Down: NED PAK ([phone])[facility])[address] [place] [address] TYPE OF BODY FLUID Pleural Fluid Normal [facility] Comment on above: Result Comment: SANDRA Baker COMMENTS:This test was developed and its performance characteristics determined by [employer]. It has not been cleared or approved by the [place] Food and Drug Administration. This test was performed in a CLIA certified laboratory and is intended for clinical purposes. Performed By: #### L AB188, [id number] ####Registered Nurse Step Down: NED PAK ([id number])[facility])[address] [place] [address] Result Comment: SANDRA Baker COMMENTS:This test was developed and its performance characteristics determined by [employer]. It has not been cleared or approved by the [place] Food and Drug Administration. This test was performed in a CLIA certified laboratory and is intended for clinical purposes.Lactate dehydrogenase in pericardial fluids is not diagnostically useful. Contamination with RBCs will cause falsely elevated results. Progress Noteon 02-03-2023 Progress Note Normal [facility] Progress Note Normal [facility] Progress Note Normal [facility] Progress Note Normal [facility] US GUIDED THORACENTESISon US GUIDED THORACENTESIS Normal [facility] XR CHEST 1 VIEWon 02-03-2023 XR CHEST 1 VIEW Normal [facility] BASIC METABOLIC PANELon 01-20 Anion gap [Moles/Vol] 3 mmol/L Normal 3-13 [facility] Comment on above: Performed By: #### L AB15, [id number], [id number] ####Registered Nurse Step Down: NED PAK ([id number])[facility] ([facility])[address] [place] [address] Calcium [Mass/Vol] 8.2 mg/dL Low 8.4-10.4 [facility] Comment on above: Performed By: #### Tameka GODDARD, [id number], [id number] ####Registered Nurse Step Down: NED PAK ([id number])[facility] ([facility])[address] [place] [address] Chloride [Moles/Vol] 108 mmol/L High 98-107 [facility] Comment on above: Performed By: #### Tameka GODDARD, [id number], [id number] ####Registered Nurse Step Down: NED PAK ([id number])[facility] ([facility])[address] [place] [address] [place] CO2 [Moles/Vol] 29 mmol/L Normal 22-30 [facility] Comment on above: Performed By: #### Tameka ABNanci, [id number], [id number] ####Registered Nurse Step Down: NED PAK ([id number])[facility] ([facility])[address] [place] [address] [place] Creatinine [Mass/Vol] 0.47 mg/dL Low 0.52-1.04 [facility] Comment on above: Performed By: #### L AB15, [id number], [id number] ####Registered Nurse Step Down: NED PAK ([id number])[facility] ([facility])[address] [place] [address] [place] GLOMERULAR FILTRATION RATE ML/MIN/1.73 SQ M.PREDICTED >90.0 Normal >60.0 [facility] Comment on above: Result Comment: Calc ulation based on the Chronic Kidney Disease Epidemiology Collaboration (CKD-EPI) equation refit without adjustment for race Performed By: #### L AB15, [id number], OSZ647 ####Registered Nurse Step Down: NED PAK ([id number])[facility])[address] [place] [address] Glucose [Mass/Vol] 126 mg/dL High 70-100 [facility] Comment on above: Performed By: #### L AB15, MXK244, CTY430 ####Registered Nurse Step Down: NED PAK ([id number])[facility])[address] [place] [address] Potassium [Moles/Vol] 3.7 mmol/L Normal 3.5-5.1 [facility] Comment on above: Performed By: #### Tameka HEREDIA15, [id number], [id number] ####Registered Nurse Step Down: NED PAK ([phone])[facility] ([facility])[address] [place] [address] Sodium [Moles/Vol] 140 mmol/L Normal 135-145 [facility] Comment on above: Performed By: #### L AB15, CIF072, VGN333 ####Registered Nurse Step Down: NED PAK ([id number])[facility])[address] [place] [address] Urea nitrogen [Mass/Vol] 19 mg/dL High 7-17 [facility] Comment on above: Performed By: #### L AB15, TQO664, NTU112 ####Registered Nurse Step Down: NED PAK ([phone])[facility])[address] [place] [address] [place] CARECOORDon 02-02-2023 CARECOORD Normal [facility] CT CHEST WO IV CONTRASTon CT CHEST WO IV CONTRAST Normal [facility] MAGNESIUMon 02-02-2023 Magnesium [Mass/Vol] 2.6 mg/dL High 1.6-2.3 [facility] Comment on above: Performed By: #### L AB15, RTY802, NZQ272 ####Registered Nurse Step Down: NED PAK ([id number])[facility] ([facility])[address] [place] [address] PHOSPHORUSon 02-02-2023 Phosphate [Mass/Vol] 3.2 mg/dL Normal 2.5-4.5 [facility] Comment on above: Performed By: #### L AB15, GQD522, DIE530 ####Registered Nurse Step Down: NED PAK ([phone])[facility] ([facility])[address] [place] [address] PROCALCITONIN TESTon 023 PROCALCITONIN 0.19 ng/mL High 0.00-0.09 [facility] Comment on above: Result Comment: ORDE R COMMENTS:PCT <0.50 = Low risk of severe sepsis and/or septic shock.PCT >2.00 = High risk of severe sepsis and/or septic shock. Performed By: #### L [id number] ####Registered Nurse Step Down: NED PAK ([id number])[facility] ([facility])[address] [place] [address] Progress Noteon 02-02-2023 Progress Note Normal [facility] Progress Note Normal [facility] Progress Note Normal [facility] Progress Note Normal [facility] Progress [facility] Normal [facility] Progress Note Normal [facility] BASIC METABOLIC PANELon 01-20 Anion gap [Moles/Vol] 3 mmol/L Normal 3-13 [facility] Comment on above: Performed By: #### L AB103, LAB15, MJP615, LAB40 ####Registered Nurse Step Down: NED PAK ([phone])[facility])[address] [place] [address] Calcium [Mass/Vol] 8.1 mg/dL Low 8.4-10.4 [facility] Comment on above: Performed By: #### L AB103, LAB15, MIF131, LAB40 ####Registered Nurse Step Down: NED PAK ([phone])[facility] [place] [address] [place] Chloride [Moles/Vol] 108 mmol/L High 98-107 [facility] Comment on above: Performed By: #### L AB103, LAB15, IZO377, LAB40 ####Registered Nurse Step Down: NED PAK ([id number])[facility] ([facility])[address] [place] [address] CO2 [Moles/Vol] 30 mmol/L Normal 22-30 [facility] Comment on above: Performed By: #### L AB103, LAB15, MWR366, LAB40 ####Registered Nurse Step Down: NED PAK ([id number])[facility] ([facility])[address] [place] [address] Creatinine [Mass/Vol] 0.51 mg/dL Low 0.52-1.04 [facility] Comment on above: Performed By: #### L AB103, LAB15, OCY015, LAB40 ####Registered Nurse Step Down: NED PAK ([id number])[facility] ([facility])[address] [place] [address] GLOMERULAR FILTRATION RATE ML/MIN/1.73 SQ M.PREDICTED >90.0 Normal >60.0 [facility] Comment on above: Result Comment: Calc ulation based on the Chronic Kidney Disease Epidemiology Collaboration (CKD-EPI) equation refit without adjustment for race Performed By: #### L AB103, LAB15, INZ291, LAB40 ####Registered Nurse Step Down: NED PAK ([id number])[facility] ([facility])[address] [place] [address] [place] Glucose [Mass/Vol] 131 mg/dL High 70-100 [facility] Comment on above: Performed By: #### L AB103, LAB15, DPX347, LAB40 ####Registered Nurse Step Down: NED PAK ([phone])[facility])[address] [place] [address] [place] Potassium [Moles/Vol] 3.4 mmol/L Low 3.5-5.1 [facility] Comment on above: Performed By: #### L AB103, LAB15, FIT448, LAB40 ####Registered Nurse Step Down: NED PAK ([phone])[facility])[address] [place] [address] Sodium [Moles/Vol] 140 mmol/L Normal 135-145 [facility] Comment on above: Performed By: #### L AB103, LAB15, FLL821, LAB40 ####Registered Nurse Step Down: NED PAK ([phone])[facility])[address] [place] [address] Urea nitrogen [Mass/Vol] 18 mg/dL High 7-17 [facility] Comment on above: Performed By: #### L AB103, LAB15, KOU679, LAB40 ####Registered Nurse Step Down: NED PAK ([phone])[facility])[address] [place] [address] CARECOORDon 02-01-2023 CARECOORD Normal [facility] CBC (HEMOGRAM)on 02-01-2023 Erythrocyte distribution width (RBC) [Ratio] 16.0 % High 11.5-14.5 [facility] Comment on above: Performed By: #### L AB294 ####Registered Nurse Step Down: NED PAK ([id number])[facility])[address] [place] [address] ERYTHROCYTE MEAN CORPUSCULAR HEMOGLOBIN CONCENTRATION (G/DL) BY AUTOMATED 32.4 % Normal 32.0-36.0 [facility] Comment on above: Performed By: #### L AB294 ####Registered Nurse Step Down: NED PAK ([id number])[facility])[address] [place] [address] Hematocrit (Bld) [Volume fraction] 27.9 % Low 35.0-47.0 [facility] Comment on above: Performed By: #### L AB294 ####Registered Nurse Step Down: NED PAK ([id number])[facility])[address] [place] [address] Hemoglobin (Bld) [Mass/Vol] 9.0 g/dL Low 11.7-16.0 [facility] Comment on above: Performed By: #### L AB294 ####Registered Nurse Step Down: NED PAK ([id number])[facility])[address] [place] [address] MCH (RBC) [Entitic mass] 28.2 pg Normal 26.0-34.0 [facility] Comment on above: Performed By: #### L AB294 ####Registered Nurse Step Down: NED PAK ([id number])[facility] ([facility])[address] [place] [address] MCV (RBC) [Entitic vol] 86.9 fL Normal 80.0-98.0 [facility] Comment on above: Performed By: #### L AB294 ####Registered Nurse Step Down: NED PAK ([id number])[facility])[address] [place] [address] Platelet mean volume (Bld) [Entitic vol] 8.0 fL Normal 7.4-12.4 [facility] Comment on above: Performed By: #### L AB294 ####Registered Nurse Step Down: NED PAK ([phone])[facility])[address] [place] [address] Platelets (Bld) [#/Vol] 377 10*3/uL Normal 140-440 [facility] Comment on above: Performed By: #### L AB294 ####Registered Nurse Step Down: NED PAK ([id number])[facility] ([facility])[address] [place] [address] RBC (Bld) [#/Vol] 3.21 10*6/uL Low 3.8-5.20 [facility] Comment on above: Performed By: #### L AB294 ####Registered Nurse Step Down: NED PAK ([id number])[facility])[address] [place] [address] WBC (Bld) [#/Vol] 26.8 10*3/uL High 3.6-10.7 [facility] Comment on above: Performed By: #### L AB294 ####Registered Nurse Step Down: NED PAK ([phone])[facility])[address] [place] [address] MAGNESIUMon 02-01-2023 Magnesium [Mass/Vol] 2.4 mg/dL High 1.6-2.3 [facility] Comment on above: Performed By: #### L AB103, LAB15, ONN315, LAB40 ####Registered Nurse Step Down: NED PAK ([id number])[facility] ([facility])[address] [place] [address] PHOSPHORUSon 02-01-2023 Phosphate [Mass/Vol] 3.1 mg/dL Normal 2.5-4.5 [facility] Comment on above: Performed By: #### L AB103, LAB15, AJE340, LAB40 ####Registered Nurse Step Down: NED PAK ([id number])[facility])[address] [place] [address] Progress Noteon 02-01-2023 Progress Note Normal [facility] Progress Note Normal [facility] Progress Note Normal [facility] Progress Note Normal [facility] Progress Note Normal [facility] VANCOMYCIN, RANDOMon 023 VANCOMYCIN 18.0 ug/mL Normal 15.0-20.0 [facility] Comment on above: Order Comment: Pleas e draw random vancomycin level at least >2 hours after the end of the last vancomycin infusion. Thank you! Performed By: #### L AB103, LAB15, OCO600, LAB40 ####Registered Nurse Step Down: NED PAK ([id number])[facility])[address] [place] [address] XR CHEST 1 VIEWon 02-01-2023 XR CHEST 1 VIEW Normal [facility] BASIC METABOLIC PANELon 01-20 Anion gap [Moles/Vol] 5 mmol/L Normal -13 [facility] Comment on above: Performed By: #### L AB15, CZD013, IAX716 ####Registered Nurse Step Down: NED PAK ([id number])[facility] ([facility])[address] [place] [address] Calcium [Mass/Vol] 8.1 mg/dL Low 8.4-10.4 [facility] Comment on above: Performed By: #### L AB15, FWC637, IHP187 ####Registered Nurse Step Down: NED PAK ([id number])[facility] ([facility])[address] [place] [address] Chloride [Moles/Vol] 109 mmol/L High 98-107 [facility] Comment on above: Performed By: #### L AB15, AJQ160, FCN698 ####Registered Nurse Step Down: NED PAK ([phone])[facility] ([facility])[address] [place] [address] CO2 [Moles/Vol] 28 mmol/L Normal 22-30 [facility] Comment on above: Performed By: #### L AB15, XSP020, ROH406 ####Registered Nurse Step Down: NED PAK ([id number])[facility] ([facility])[address] [place] [address] Creatinine [Mass/Vol] 0.47 mg/dL Low 0.52-1.04 [facility] Comment on above: Performed By: #### L AB15, UKS559, ROV464 ####Registered Nurse Step Down: NED PAK ([id number])[facility] ([facility])[address] [place] [address] GLOMERULAR FILTRATION RATE ML/MIN/1.73 SQ M.PREDICTED >90.0 Normal >60.0 [facility] Comment on above: Result Comment: Calc ulation based on the Chronic Kidney Disease Epidemiology Collaboration (CKD-EPI) equation refit without adjustment for race Performed By: #### L AB15, BEJ357, NBK801 ####Registered Nurse Step Down: NED PAK ([id number])[facility] ([facility])[address] [place] [address] [place] Glucose [Mass/Vol] 129 mg/dL High 70-100 [facility] Comment on above: Performed By: #### L AB15, YUU517, YXJ886 ####Registered Nurse Step Down: NED PAK ([id number])[facility])[address] [place] [address] Potassium [Moles/Vol] 3.0 mmol/L Low 3.5-5.1 [facility] Comment on above: Performed By: #### L AB15, RHQ336, CBG968 ####Registered Nurse Step Down: NED PAK ([id number])[facility])[address] [place] [address] Sodium [Moles/Vol] 142 mmol/L Normal 135-145 [facility] Comment on above: Performed By: #### L AB15, GNK599, ZNH735 ####Registered Nurse Step Down: NED PAK ([id number])[facility])[address] [place] [address] Urea nitrogen [Mass/Vol] 19 mg/dL High 7-17 [facility] Comment on above: Performed By: #### L AB15, UIX042, VFB434 ####Registered Nurse Step Down: NED PAK ([id number])[facility])[address] [place] [address] BLOOD CULTUREon 01-31-2023 Bacteria identified Cx Nom (Bld) Normal [facility] Comment on above: Performed By: #### L AB462 ####Registered Nurse Step Down: NED PAK ([id number])[facility])[address] [place] [address] Performed By: #### L AB462, [id number] ####Registered Nurse Step Down: NED PAK ([id number])[facility])[address] [place] [address] BLOOD CULTURE IDENTIFICATION - AEROBICon 01-31-2023 BLOOD CULTURE IDENTIFICATION - AEROBIC Normal [facility] Comment on above: Performed By: #### L AB462, [id number] ####Registered Nurse Step Down: NED PAK ([id number])[facility])[address] [place] [address] CBC (HEMOGRAM)on 01-31-2023 Erythrocyte distribution width (RBC) [Ratio] 16.0 % High 11.5-14.5 [facility] Comment on above: Performed By: #### L AB294 ####Registered Nurse Step Down: NED PAK ([phone])[facility])[address] [place] [address] ERYTHROCYTE MEAN CORPUSCULAR HEMOGLOBIN CONCENTRATION (G/DL) BY AUTOMATED 32.4 % Normal 32.0-36.0 [facility] Comment on above: Performed By: #### L AB294 ####Registered Nurse Step Down: NED PAK ([id number])[facility])[address] [place] [address] Hematocrit (Bld) [Volume fraction] 29.1 % Low 35.0-47.0 [facility] Comment on above: Performed By: #### L AB294 ####Registered Nurse Step Down: NED PAK ([id number])[facility])[address] [place] [address] Hemoglobin (Bld) [Mass/Vol] 9.4 g/dL Low 11.7-16.0 [facility] Comment on above: Performed By: #### L AB294 ####Registered Nurse Step Down: NED PAK ([id number])[facility])[address] [place] [address] MCH (RBC) [Entitic mass] 27.9 pg Normal 26.0-34.0 [facility] Comment on above: Performed By: #### L AB294 ####Registered Nurse Step Down: NED PAK ([id number])[facility])[address] [place] [address] MCV (RBC) [Entitic vol] 86.2 fL Normal 80.0-98.0 [facility] Comment on above: Performed By: #### L AB294 ####Registered Nurse Step Down: NED PAK ([phone])[facility])[address] [place] [address] Platelet mean volume (Bld) [Entitic vol] 8.6 fL Normal 7.4-12.4 [facility] Comment on above: Performed By: #### L AB294 ####Registered Nurse Step Down: NED PAK ([id number])[facility] ([facility])[address] [place] [address] Platelets (Bld) [#/Vol] 352 10*3/uL Normal 140-440 [facility] Comment on above: Performed By: #### L AB294 ####Registered Nurse Step Down: NED PAK ([id number])[facility] ([facility])[address] [place] [address] RBC (Bld) [#/Vol] 3.38 10*6/uL Low 3.8-5.20 [facility] Comment on above: Performed By: #### L AB294 ####Registered Nurse Step Down: NED PAK ([id number])[facility] ([facility])[address] [place] [address] WBC (Bld) [#/Vol] 23.8 10*3/uL High 3.6-10.7 [facility] Comment on above: Performed By: #### L AB294 ####Registered Nurse Step Down: NED PAK ([id number])[facility])[address] [place] [address] MAGNESIUMon 01-31-2023 Magnesium [Mass/Vol] 2.1 mg/dL Normal 1.6-2.3 [facility] Comment on above: Performed By: #### L AB15, MPG640, UVP559 ####Registered Nurse Step Down: NED PAK ([id number])[facility])[address] [place] [address] PHOSPHORUSon 01-31-2023 Phosphate [Mass/Vol] 2.7 mg/dL Normal 2.5-4.5 [facility] Comment on above: Performed By: #### L AB15, HGO000, XFQ914 ####Registered Nurse Step Down: NED PAK ([phone])[facility])[address] [place] [address] PROCALCITONIN TESTon 023 PROCALCITONIN 0.29 ng/mL High 0.00-0.09 [facility] Comment on above: Result Comment: SANDRA Baker COMMENTS:PCT <0.50 = Low risk of severe sepsis and/or septic shock.PCT >2.00 = High risk of severe sepsis and/or septic shock. Performed By: #### L [id number] ####Registered Nurse Step Down: NED PAK ([phone])[facility])[address] [place] [address] Progress Noteon 01-31-2023 Progress Note Normal [facility] Progress Note Normal [facility] VANCOMYCIN, RANDOMon 023 VANCOMYCIN 29.0 ug/mL High 15.0-20.0 [facility] Comment on above: Order Comment: Pleas e draw random vancomycin level at least >2 hours after the end of the last vancomycin infusion. Thank you! Performed By: #### L AB40 ####Registered Nurse Step Down: NED PAK ([id number])[facility] ([facility])[address] [place] [address] AMMONIAon 01-30-2023 Ammonia (P) [Mass/Vol] ug/dL Low 9-30 [facility] Comment on above: Performed By: #### L AB47 ####Registered Nurse Step Down: NED PAK ([phone])[facility])[address] [place] [address] BASIC METABOLIC PANELon 11- Anion gap [Moles/Vol] 6 mmol/L Normal 3-13 [facility] Comment on above: Performed By: #### L AB103, DHY650, LAB20, LAB15 ####Registered Nurse Step Down: NED PAK ([phone])[facility])[address] [place] [address] Calcium [Mass/Vol] 8.5 mg/dL Normal 8.4-10.4 [facility] Comment on above: Performed By: #### L AB103, OMX637, LAB20, LAB15 ####Registered Nurse Step Down: NED PAK ([id number])[facility] [place] [address] [place] Chloride [Moles/Vol] 110 mmol/L High 98-107 [facility] Comment on above: Performed By: #### L AB103, SYC774, LAB20, LAB15 ####Registered Nurse Step Down: NED PAK ([id number])[facility] ([facility])[address] [place] [address] CO2 [Moles/Vol] 27 mmol/L Normal 22-30 [facility] Comment on above: Performed By: #### L AB103, AGO237, LAB20, LAB15 ####Registered Nurse Step Down: NED PAK ([id number])[facility] ([facility])[address] [place] [address] Creatinine [Mass/Vol] 0.41 mg/dL Low 0.52-1.04 [facility] Comment on above: Performed By: #### [place] AB103, [id number], LAB20, LAB15 ####Registered Nurse Step Down: NED PAK ([id number])[facility] ([facility])[address] [place] [address] GLOMERULAR FILTRATION RATE ML/MIN/1.73 SQ M.PREDICTED >90.0 Normal >60.0 [facility] Comment on above: Result Comment: Calc ulation based on the Chronic Kidney Disease Epidemiology Collaboration (CKD-EPI) equation refit without adjustment for race Performed By: #### L AB103, [id number], LAB20, LAB15 ####Registered Nurse Step Down: NED PAK ([id number])[facility] [place] [address] [place] Glucose [Mass/Vol] 132 mg/dL High 70-100 [facility] Comment on above: Performed By: #### L AB103, [id number], LAB20, LAB15 ####Registered Nurse Step Down: NED PAK ([id number])[facility])[address] [place] [address] Potassium [Moles/Vol] 3.3 mmol/L Low 3.5-5.1 [facility] Comment on above: Performed By: #### L AB103, [id number], LAB20, LAB15 ####Registered Nurse Step Down: NED PAK ([id number])[facility] [facility])[address] [place] [address] Sodium [Moles/Vol] 143 mmol/L Normal 135-145 [facility] Comment on above: Performed By: #### L AB103, [id number], LAB20, LAB15 ####Registered Nurse Step Down: NED PAK ([id number])[facility] ([facility])[address] [place] [address] Urea nitrogen [Mass/Vol] 17 mg/dL Normal 7-17 [facility] Comment on above: Performed By: #### L AB103, [id number], LAB20, LAB15 ####Registered Nurse Step Down: NED PAK ([id number])[facility] ([facility])[address] [place] [address] CBC (HEMOGRAM)on 01-30-2023 Erythrocyte distribution width (RBC) [Ratio] 15.6 % High 11.5-14.5 [facility] Comment on above: Performed By: #### L AB294 ####Registered Nurse Step Down: NED PAK ([id number])[facility])[address] [place] [address] ERYTHROCYTE MEAN CORPUSCULAR HEMOGLOBIN CONCENTRATION (G/DL) BY AUTOMATED 32.8 % Normal 32.0-36.0 [facility] Comment on above: Performed By: #### L AB294 ####Registered Nurse Step Down: NED PAK ([id number])[facility] ([facility])[address] [place] [address] Hematocrit (Bld) [Volume fraction] 32.5 % Low 35.0-47.0 [facility] Comment on above: Performed By: #### L AB294 ####Registered Nurse Step Down: NED PAK ([id number])[facility])[address] [place] [address] Hemoglobin (Bld) [Mass/Vol] 10.6 g/dL Low 11.7-16.0 [facility] Comment on above: Performed By: #### L AB294 ####Registered Nurse Step Down: NED PAK ([id number])[facility])[address] [place] [address] MCH (RBC) [Entitic mass] 28.4 pg Normal 26.0-34.0 [facility] Comment on above: Performed By: #### L AB294 ####Registered Nurse Step Down: NED PAK ([id number])[facility] ([facility])[address] [place] [address] MCV (RBC) [Entitic vol] 86.6 fL Normal 80.0-98.0 [facility] Comment on above: Performed By: #### L AB294 ####Registered Nurse Step Down: NED PAK ([id number])[facility])[address] [place] [address] Platelet mean volume (Bld) [Entitic vol] 8.1 fL Normal 7.4-12.4 [facility] Comment on above: Performed By: #### L AB294 ####Registered Nurse Step Down: NED PAK ([id number])[facility])[address] [place] [address] Platelets (Bld) [#/Vol] 352 10*3/uL Normal 140-440 [facility] Comment on above: Performed By: #### L AB294 ####Registered Nurse Step Down: NED PAK ([phone])[facility])[address] [place] [address] RBC (Bld) [#/Vol] 3.75 10*6/uL Low 3.8-5.20 [facility] Comment on above: Performed By: #### L AB294 ####Registered Nurse Step Down: NED PAK ([id number])[facility])[address] [place] [address] WBC (Bld) [#/Vol] 26.5 10*3/uL High 3.6-10.7 [facility] Comment on above: Performed By: #### L AB294 ####Registered Nurse Step Down: NED PAK ([id number])[facility])[address] [place] [address] HEPATIC FUNCTION PANELon Albumin [Mass/Vol] 2.7 g/dL Low 3.5-5.0 [facility] Comment on above: Performed By: #### L AB103, CLE908, LAB20, LAB15 ####Registered Nurse Step Down: NED PAK ([id number])[facility] ([facility])[address] [place] [address] ALP [Catalytic activity/Vol] 100 U/L Normal 38-126 [facility] Comment on above: Performed By: #### L AB103, [id number], LAB20, LAB15 ####Registered Nurse Step Down: NED PAK ([id number])[facility] ([facility])[address] [place] [address] ALT [Catalytic activity/Vol] 58 U/L High 0-34 [facility] Comment on above: Performed By: #### L AB103, HUU375, LAB20, LAB15 ####Registered Nurse Step Down: NED PAK ([id number])[facility])[address] [place] [address] AST [Catalytic activity/Vol] 76 U/L High 15-46 [facility] Comment on above: Performed By: #### L AB103, LEA403, LAB20, LAB15 ####Registered Nurse Step Down: NED APK ([id number])[facility] ([facility])[address] [place] [address] Bilirubin [Mass/Vol] 0.7 mg/dL Normal 0.2-1.3 [facility] Comment on above: Performed By: #### L AB103, CKP570, LAB20, LAB15 ####Registered Nurse Step Down: NED PAK ([id number])[facility])[address] [place] [address] Bilirubin.indirect [Mass/Vol] 0.0 mg/dL Normal 0.0-0.3 [facility] Comment on above: Performed By: #### L AB103, OSD606, LAB20, LAB15 ####Registered Nurse Step Down: NED PAK ([id number])[facility])[address] [place] [address] Protein [Mass/Vol] 6.2 g/dL Low 6.3-8.2 [facility] Comment on above: Performed By: #### L AB103, CRI135, LAB20, LAB15 ####Registered Nurse Step Down: NED PAK ([id number])[facility] ([facility])[address] [place] [address] MAGNESIUMon 01-30-2023 Magnesium [Mass/Vol] 2.0 mg/dL Normal 1.6-2.3 [facility] Comment on above: Performed By: #### L AB103, GEK344, LAB20, LAB15 ####Registered Nurse Step Down: NED PAK ([id number])[facility] ([facility])[address] [place] [address] PHOSPHORUSon 01-30-2023 Phosphate [Mass/Vol] 3.5 mg/dL Normal 2.5-4.5 [facility] Comment on above: Performed By: #### L AB103, YLI674, LAB20, LAB15 ####Registered Nurse Step Down: NED PAK ([id number])[facility] ([facility])[address] [place] [address] Progress Noteon 01-30-2023 Progress Note Normal [facility] Progress Note Normal [facility] Progress Note Normal [facility] BASIC METABOLIC PANELon 01-20 Anion gap [Moles/Vol] 9 mmol/L Normal 3-13 [facility] Comment on above: Performed By: #### L AB113, UQL307, LAB15 ####Registered Nurse Step Down: NED PAK ([id number])[facility])[address] [place] [address] Calcium [Mass/Vol] 8.3 mg/dL Low 8.4-10.4 [facility] Comment on above: Performed By: #### L AB113, [id number], LAB15 ####Registered Nurse Step Down: NED PAK ([id number])[facility])[address] [place] [address] Chloride [Moles/Vol] 115 mmol/L High 98-107 [facility] Comment on above: Performed By: #### L AB113, NGX517, LAB15 ####Registered Nurse Step Down: NED PAK ([id number])[facility] ([facility])[address] [place] [address] CO2 [Moles/Vol] 24 mmol/L Normal 22-30 [facility] Comment on above: Performed By: #### Tameka AB113, TZO442, LAB15 ####Registered Nurse Step Down: NED PAK ([id number])[facility])[address] [place] [address] Creatinine [Mass/Vol] 0.56 mg/dL Normal 0.52-1.04 [facility] Comment on above: Performed By: #### L AB113, LSJ028, LAB15 ####Registered Nurse Step Down: NED PAK ([id number])[facility])[address] [place] [address] GLOMERULAR FILTRATION RATE ML/MIN/1.73 SQ M.PREDICTED >90.0 Normal >60.0 [facility] Comment on above: Result Comment: Calc ulation based on the Chronic Kidney Disease Epidemiology Collaboration (CKD-EPI) equation refit without adjustment for race Performed By: #### L AB113, [id number], LAB15 ####Registered Nurse Step Down: NED PAK ([id number])[facility] ([facility])[address] [place] [address] [place] Glucose [Mass/Vol] 129 mg/dL High 70-100 [facility] Comment on above: Performed By: #### L AB113, WAU851, LAB15 ####Registered Nurse Step Down: NED PAK ([id number])[facility])[address] [place] [address] Potassium [Moles/Vol] 3.2 mmol/L Low 3.5-5.1 [facility] Comment on above: Performed By: #### L AB113, QUX162, LAB15 ####Registered Nurse Step Down: NED PAK ([id number])[facility])[address] [place] [address] Sodium [Moles/Vol] 148 mmol/L High 135-145 [facility] Comment on above: Performed By: #### L AB113, OTH736, LAB15 ####Registered Nurse Step Down: NED PAK ([id number])[facility])[address] [place] [address] Urea nitrogen [Mass/Vol] 13 mg/dL Normal 7-17 [facility] Comment on above: Performed By: #### L AB113, ILO390, LAB15 ####Registered Nurse Step Down: NED PAK ([id number])[facility])[address] [place] [address] BLOOD CULTUREon 01-29-2023 Bacteria identified Cx Nom (Bld) Normal [facility] Comment on above: Performed By: #### L AB462 ####Registered Nurse Step Down: END PAK ([id number])[facility])[address] [place] [address] Bacteria identified Cx Nom (Bld) Normal [facility] Comment on above: Performed By: #### L AB462 ####Registered Nurse Step Down: NED PAK ([phone])[facility])[address] [place] [address] C. DIFFICILE BY PCR WITH REF MALENA TO EIAon 01-29-2023 C. DIFFICILE BY PCR WITH REFLEX TO EIA Normal [facility] Comment on above: Performed By: #### L AB257, [id number] ####Registered Nurse Step Down: NED PAK ([id number])[facility])[address] [place] [address] CARECOORDon 01-29-2023 CARECOORD Normal [facility] CBC (HEMOGRAM)on 01-29-2023 Erythrocyte distribution width (RBC) [Ratio] 15.6 % High 11.5-14.5 [facility] Comment on above: Performed By: #### L AB294, [id number] ####Registered Nurse Step Down: NED PAK ([id number])[facility])[address] [place] [address] ERYTHROCYTE MEAN CORPUSCULAR HEMOGLOBIN CONCENTRATION (G/DL) BY AUTOMATED 32.9 % Normal 32.0-36.0 [facility] Comment on above: Performed By: #### Tameka AB294, [id number] ####Registered Nurse Step Down: NED PAK ([id number])[facility])[address] [place] [address] Hematocrit (Bld) [Volume fraction] 30.7 % Low 35.0-47.0 [facility] Comment on above: Performed By: #### Tameka AB294, MWG103 ####Registered Nurse Step Down: NED PAK ([id number])[facility])[address] [place] [address] Hemoglobin (Bld) [Mass/Vol] 10.1 g/dL Low 11.7-16.0 [facility] Comment on above: Performed By: #### Tameka AB294, [id number] ####Registered Nurse Step Down: NED PAK ([id number])[facility])[address] [place] [address] MCH (RBC) [Entitic mass] 28.5 pg Normal 26.0-34.0 [facility] Comment on above: Performed By: #### L AB294, [id number] ####Registered Nurse Step Down: NED PAK ([id number])[facility])[address] [place] [address] MCV (RBC) [Entitic vol] 86.5 fL Normal 80.0-98.0 [facility] Comment on above: Performed By: #### L AB294, HJB098 ####Registered Nurse Step Down: NED PAK ([id number])[facility])[address] [place] [address] Platelet mean volume (Bld) [Entitic vol] 8.5 fL Normal 7.4-12.4 [facility] Comment on above: Performed By: #### L AB294, [id number] ####Registered Nurse Step Down: NED PAK ([id number])[facility] ([facility])[address] [place] [address] Platelets (Bld) [#/Vol] 298 10*3/uL Normal 140-440 [facility] Comment on above: Performed By: #### L AB294, [id number] ####Registered Nurse Step Down: NED PAK ([id number])[facility] ([facility])[address] [place] [address] RBC (Bld) [#/Vol] 3.54 10*6/uL Low 3.8-5.20 [facility] Comment on above: Performed By: #### L AB294, [id number] ####Registered Nurse Step Down: NED PAK ([id number])[facility] ([facility])[address] [place] [address] WBC (Bld) [#/Vol] 17.7 10*3/uL High 3.6-10.7 [facility] Comment on above: Performed By: #### L AB294, [id number] ####Registered Nurse Step Down: NED PAK ([id number])[facility] ([facility])[address] [place] [address] LAB ONLY ? C DIFF EIAon 01-20 LAB ONLY ? C DIFF EIA Normal [facility] Comment on above: Performed By: #### L AB257, [id number] ####Registered Nurse Step Down: NED PAK ([id number])[facility])[address] [place] [address] MAGNESIUMon 01-29-2023 Magnesium [Mass/Vol] 1.9 mg/dL Normal 1.6-2.3 [facility] Comment on above: Performed By: #### L AB113, [id number], LAB15 ####Registered Nurse Step Down: NED PAK ([id number])[facility])[address] [place] [address] PHOSPHORUSon 01-29-2023 Phosphate [Mass/Vol] 2.4 mg/dL Low 2.5-4.5 [facility] Comment on above: Performed By: #### L AB113, [id number], LAB15 ####Registered Nurse Step Down: NED PAK ([id number])[facility] ([facility])[address] [place] [address] PROCALCITONIN TESTon 023 PROCALCITONIN 0.56 ng/mL High 0.00-0.09 [facility] Comment on above: Result Comment: ORDE R COMMENTS:PCT <0.50 = Low risk of severe sepsis and/or septic shock.PCT >2.00 = High risk of severe sepsis and/or septic shock. Performed By: #### L [id number] ####Registered Nurse Step Down: NED PAK ([id number])[address] Progress Noteon 01-29-2023 Progress Note Normal [facility] Progress Note Normal [facility] Progress Note Normal [facility] Progress Note Normal [facility] Progress Note Normal [facility] RETICULOCYTESon 01-29-2023 Reticulocytes/100 RBC (Bld) 0.61 % Normal [facility] Comment on above: Result Comment: Newb orn < 5%Adults 0.5 - 1.5% Performed By: #### L AB294, [id number] ####Registered Nurse Step Down: NED PAK ([id number])[facility] ([facility])[address] [place] [address] XR CHEST 1 VIEWon 01-29-2023 XR CHEST 1 VIEW Normal [facility] BASIC METABOLIC PANELon Anion gap [Moles/Vol] 4 mmol/L Normal 3-13 [facility] Comment on above: Performed By: #### L AB15 ####Registered Nurse Step Down: NED PAK ([id number])[facility])[address] [place] [address] Calcium [Mass/Vol] 8.5 mg/dL Normal 8.4-10.4 [facility] Comment on above: Performed By: #### L AB15 ####Registered Nurse Step Down: NED PAK ([id number])[facility] ([facility])[address] [place] [address] Chloride [Moles/Vol] 116 mmol/L High 98-107 [facility] Comment on above: Performed By: #### L AB15 ####Registered Nurse Step Down: NED PAK ([id number])[facility] [place] [address] CO2 [Moles/Vol] 27 mmol/L Normal 22-30 [facility] Comment on above: Performed By: #### L AB15 ####Registered Nurse Step Down: NED PAK ([id number])[facility] ([facility])[address] [place] [address] Creatinine [Mass/Vol] 0.50 mg/dL Low 0.52-1.04 [facility] Comment on above: Performed By: #### L AB15 ####Registered Nurse Step Down: NED PAK ([id number])[facility] ([facility])[address] [place] [address] GLOMERULAR FILTRATION RATE ML/MIN/1.73 SQ M.PREDICTED >90.0 Normal >60.0 [facility] Comment on above: Result Comment: Calc ulation based on the Chronic Kidney Disease Epidemiology Collaboration (CKD-EPI) equation refit without adjustment for race Performed By: #### L AB15 ####Registered Nurse Step Down: NED PAK ([id number])[facility] ([facility])[address] [place] [address] [place] Glucose [Mass/Vol] 160 mg/dL High 70-100 [facility] Comment on above: Performed By: #### L AB15 ####Registered Nurse Step Down: NED PAK ([id number])[facility] ([facility])[address] [place] [address] [place] Potassium [Moles/Vol] 3.5 mmol/L Normal 3.5-5.1 [facility] Comment on above: Performed By: #### L AB15 ####Registered Nurse Step Down: NED PAK ([id number])[facility])[address] [place] [address] Sodium [Moles/Vol] 146 mmol/L High 135-145 [facility] Comment on above: Performed By: #### L AB15 ####Registered Nurse Step Down: NED PAK ([id number])[facility] ([facility])[address] [place] [address] Urea nitrogen [Mass/Vol] 11 mg/dL Normal 7-17 [facility] Comment on above: Performed By: #### L AB15 ####Registered Nurse Step Down: NED PAK ([id number])[facility])[address] [place] [address] Anion gap [Moles/Vol] 7 mmol/L Normal 3-13 [facility] Comment on above: Performed By: #### L AB113, LAB15, JRC772 ####Registered Nurse Step Down: NED PAK ([id number])[facility] ([facility])[address] [place] [address] Calcium [Mass/Vol] 8.7 mg/dL Normal 8.4-10.4 [facility] Comment on above: Performed By: #### L AB113, LAB15, FUK009 ####Registered Nurse Step Down: NED PAK ([id number])[facility] ([facility])[address] [place] [address] [place] Chloride [Moles/Vol] 119 mmol/L High 98-107 [facility] Comment on above: Performed By: #### L AB113, LAB15, YER150 ####Registered Nurse Step Down: NED PAK ([id number])[facility])[address] [place] [address] [place] CO2 [Moles/Vol] 26 mmol/L Normal 22-30 [facility] Comment on above: Performed By: #### L AB113, LAB15, [id number] ####Registered Nurse Step Down: NED PAK ([id number])[facility] ([facility] [place] [address] Creatinine [Mass/Vol] 0.54 mg/dL Normal 0.52-1.04 [facility] Comment on above: Performed By: #### L AB113, LAB15, [id number] ####Registered Nurse Step Down: NED PAK ([id number])[facility] ([facility])[address] [place] [address] GLOMERULAR FILTRATION RATE ML/MIN/1.73 SQ M.PREDICTED >90.0 Normal >60.0 [facility] Comment on above: Result Comment: Calc ulation based on the Chronic Kidney Disease Epidemiology Collaboration (CKD-EPI) equation refit without adjustment for race Performed By: #### L AB113, LAB15, [id number] ####Registered Nurse Step Down: NED PAK ([id number])[facility] ([facility])[address] [place] [address] Glucose [Mass/Vol] 115 mg/dL High 70-100 [facility] Comment on above: Performed By: #### L AB113, LAB15, [id number] ####Registered Nurse Step Down: NED PAK ([id number])[facility] ([facility])[address] [place] [address] Potassium [Moles/Vol] 2.8 mmol/L Low 3.5-5.1 [facility] Comment on above: Performed By: #### L AB113, LAB15, [id number] ####Registered Nurse Step Down: NED PAK ([id number])[facility] ([facility])[address] [place] [address] Sodium [Moles/Vol] 151 mmol/L High 135-145 [facility] Comment on above: Performed By: #### L AB113, LAB15, [id number] ####Registered Nurse Step Down: NED PAK ([id number])[facility])[address] [place] [address] Urea nitrogen [Mass/Vol] 15 mg/dL Normal 7-17 [facility] Comment on above: Performed By: #### L AB113, LAB15, [id number] ####Registered Nurse Step Down: NED PAK ([id number])[facility] ([facility])[address] [place] [address] BLOOD TYPE AND SCREEN GELon 01-28-2023 ABO GROUPING A Normal [facility] Comment on above: Performed By: #### L AB276 ####Registered Nurse Step Down: NED PAK ([id number])[facility] ([facility])[address] [place] [address] RH TYPE IN BLOOD Positive Normal [facility] Comment on above: Performed By: #### L AB276 ####Registered Nurse Step Down: NED PAK ([id number])[facility] ([facility])[address] [place] [address] CBC (HEMOGRAM)on 01-28-2023 Erythrocyte distribution width (RBC) [Ratio] 15.7 % High 11.5-14.5 [facility] Comment on above: Performed By: #### L AB294 ####Registered Nurse Step Down: NED PAK ([id number])[facility] ([facility])[address] [place] [address] ERYTHROCYTE MEAN CORPUSCULAR HEMOGLOBIN CONCENTRATION (G/DL) BY AUTOMATED 33.3 % Normal 32.0-36.0 [facility] Comment on above: Performed By: #### L AB294 ####Registered Nurse Step Down: NED PAK ([id number])[address] Hematocrit (Bld) [Volume fraction] 26.4 % Low 35.0-47.0 [facility] Comment on above: Performed By: #### L AB294 ####Registered Nurse Step Down: NED PAK ([id number])[facility])[address] [place] [address] Hemoglobin (Bld) [Mass/Vol] 8.8 g/dL Low 11.7-16.0 [facility] Comment on above: Performed By: #### L AB294 ####Registered Nurse Step Down: NED PAK ([id number])[facility])[address] [place] [address] MCH (RBC) [Entitic mass] 28.5 pg Normal 26.0-34.0 [facility] Comment on above: Performed By: #### L AB294 ####Registered Nurse Step Down: NED PAK ([id number])[facility] ([facility])[address] [place] [address] MCV (RBC) [Entitic vol] 85.6 fL Normal 80.0-98.0 [facility] Comment on above: Performed By: #### L AB294 ####Registered Nurse Step Down: NED PAK ([phone])[facility])[address] [place] [address] Platelet mean volume (Bld) [Entitic vol] 9.0 fL Normal 7.4-12.4 [facility] Comment on above: Performed By: #### L AB294 ####Registered Nurse Step Down: NED PAK ([id number])[facility] ([facility])[address] [place] [address] Platelets (Bld) [#/Vol] 269 10*3/uL Normal 140-440 [facility] Comment on above: Performed By: #### L [id number] ####Registered Nurse Step Down: NED PAK ([id number])[facility])[address] [place] [address] RBC (Bld) [#/Vol] 3.08 10*6/uL Low 3.8-5.20 [facility] Comment on above: Performed By: #### L [id number] ####Registered Nurse Step Down: NED PAK ([id number])[facility] ([facility])[address] [place] [address] WBC (Bld) [#/Vol] 14.3 10*3/uL High 3.6-10.7 [facility] Comment on above: Performed By: #### L [id number] ####Registered Nurse Step Down: NED PAK ([id number])[facility] ([facility])[address] [place] [address] Consulton 01-28-2023 Consult Re-consult acknowled ged, plans for [place] today, will officially return and see tomorrow, Normal [facility] HEMOGLOBIN AND HEMATOCRIT, B LOODon 01-28-2023 Hematocrit (Bld) [Volume fraction] 22.4 % Low 35.0-47.0 [facility] Comment on above: Performed By: #### L [id number] ####Registered Nurse Step Down: NED PAK ([id number])[facility])[address] [place] [address] Hemoglobin (Bld) [Mass/Vol] 7.3 g/dL Low 11.7-16.0 [facility] Comment on above: Performed By: #### L [id number] ####Registered Nurse Step Down: NED PAK ([id number])[facility] ([facility])[address] [place] [address] MAGNESIUMon 01-28-2023 Magnesium [Mass/Vol] 1.9 mg/dL Normal 1.6-2.3 [facility] Comment on above: Performed By: #### L [id number], LAB15, [id number] ####Registered Nurse Step Down: NED PAK ([id number])[facility])[address] [place] [address] PHOSPHORUSon 01-28-2023 Phosphate [Mass/Vol] 2.5 mg/dL Normal 2.5-4.5 [facility] Comment on above: Performed By: #### L AB113, LAB15, [id number] ####Registered Nurse Step Down: NED PAK ([id number])[facility])[address] [place] [address] Progress Noteon 01-28-2023 Progress Note Normal [facility] Progress Note Normal [facility] Progress Note Normal [facility] Progress Note Normal [facility] BASIC METABOLIC PANELon 11-0 Anion gap [Moles/Vol] 8 mmol/L Normal 3-13 [facility] Comment on above: Performed By: #### L AB40, UFX638, LAB15, LFP943 ####Registered Nurse Step Down: NED PAK ([id number])[facility])[address] [place] [address] Calcium [Mass/Vol] 9.1 mg/dL Normal 8.4-10.4 [facility] Comment on above: Performed By: #### L AB40, FNU590, LAB15, IBB342 ####Registered Nurse Step Down: NED PAK ([id number])[facility])[address] [place] [address] Chloride [Moles/Vol] 121 mmol/L High 98-107 [facility] Comment on above: Performed By: #### L AB40, SWP080, LAB15, BST480 ####Registered Nurse Step Down: NED PAK ([id number])[address] CO2 [Moles/Vol] 22 mmol/L Normal 22-30 [facility] Comment on above: Performed By: #### L AB40, UME388, LAB15, YKM867 ####Registered Nurse Step Down: NED PAK ([id number])[facility])[address] [place] [address] Creatinine [Mass/Vol] 0.51 mg/dL Low 0.52-1.04 [facility] Comment on above: Performed By: #### L AB40, GLB243, LAB15, AGL977 ####Registered Nurse Step Down: NED PAK ([id number])[address] GLOMERULAR FILTRATION RATE ML/MIN/1.73 SQ M.PREDICTED >90.0 Normal >60.0 [facility] Comment on above: Result Comment: Calc ulation based on the Chronic Kidney Disease Epidemiology Collaboration (CKD-EPI) equation refit without adjustment for race Performed By: #### L AB40, GWK198, LAB15, ELS458 ####Registered Nurse Step Down: NED PAK ([id number])[facility])[address] [place] [address] [place] Glucose [Mass/Vol] 156 mg/dL High 70-100 [facility] Comment on above: Performed By: #### L AB40, OQK264, LAB15, BCI786 ####Registered Nurse Step Down: NED PAK ([id number])[facility])[address] [place] [address] Potassium [Moles/Vol] 3.5 mmol/L Normal 3.5-5.1 [facility] Comment on above: Performed By: #### L AB40, YJF211, LAB15, KKV742 ####Registered Nurse Step Down: NED PAK ([id number])[facility])[address] [place] [address] Sodium [Moles/Vol] 151 mmol/L High 135-145 [facility] Comment on above: Performed By: #### L AB40, ITX003, LAB15, WRP721 ####Registered Nurse Step Down: NED PAK ([id number])[facility] ([facility])[address] [place] [address] [place] Urea nitrogen [Mass/Vol] 23 mg/dL High 7-17 [facility] Comment on above: Performed By: #### L AB40, AHQ013, LAB15, JVS235 ####Registered Nurse Step Down: NED PAK ([id number])[facility] ([facility])[address] [place] [address] BLOOD CULTUREon 01-27-2023 Bacteria identified Cx Nom (Bld) Normal [facility] Comment on above: Performed By: #### L [id number] ####Registered Nurse Step Down: NED PAK ([id number])[facility])[address] [place] [address] Bacteria identified Cx Nom (Bld) Normal [facility] Comment on above: Performed By: #### L [id number], KJR127 ####Registered Nurse Step Down: NED PAK ([id number])[facility])[address] [place] [address] BLOOD CULTURE IDENTIFICATION - AEROBICon 01-27-2023 BLOOD CULTURE IDENTIFICATION - AEROBIC Normal [facility] Comment on above: Performed By: #### L [id number], VTY403 ####Registered Nurse Step Down: NED PAK ([id number])[facility])[address] [place] [address] CARECOORDon 01-27-2023 CARECOORD Normal [facility] CBC (HEMOGRAM)on 01-27-2023 Erythrocyte distribution width (RBC) [Ratio] 16.0 % High 11.5-14.5 [facility] Comment on above: Performed By: #### L [id number] ####Registered Nurse Step Down: NED PAK ([phone])[facility])[address] [place] [address] ERYTHROCYTE MEAN CORPUSCULAR HEMOGLOBIN CONCENTRATION (G/DL) BY AUTOMATED 32.4 % Normal 32.0-36.0 [facility] Comment on above: Performed By: #### L [id number] ####Registered Nurse Step Down: NED PAK ([id number])[facility])[address] [place] [address] Hematocrit (Bld) [Volume fraction] 32.9 % Low 35.0-47.0 [facility] Comment on above: Performed By: #### L [id number] ####Registered Nurse Step Down: NED PAK ([id number])[facility])[address] [place] [address] Hemoglobin (Bld) [Mass/Vol] 10.6 g/dL Low 11.7-16.0 [facility] Comment on above: Performed By: #### L AB294 ####Registered Nurse Step Down: NED PAK ([id number])[facility])[address] [place] [address] MCH (RBC) [Entitic mass] 27.9 pg Normal 26.0-34.0 [facility] Comment on above: Performed By: #### L [id number] ####Registered Nurse Step Down: NED PAK ([id number])[address] MCV (RBC) [Entitic vol] 86.2 fL Normal 80.0-98.0 [facility] Comment on above: Performed By: #### L [id number] ####Registered Nurse Step Down: NED PAK ([id number])[facility])[address] [place] [address] Platelet mean volume (Bld) [Entitic vol] 9.3 fL Normal 7.4-12.4 [facility] Comment on above: Performed By: #### L [id number] ####Registered Nurse Step Down: NED PAK ([id number])[facility])[address] [place] [address] Platelets (Bld) [#/Vol] 259 10*3/uL Normal 140-440 [facility] Comment on above: Performed By: #### L [id number] ####Registered Nurse Step Down: NED PAK ([id number])[facility])[address] [place] [address] RBC (Bld) [#/Vol] 3.81 10*6/uL Normal 3.8-5.20 [facility] Comment on above: Performed By: #### L [id number] ####Registered Nurse Step Down: NED PAK ([id number])[facility])[address] [place] [address] WBC (Bld) [#/Vol] 20.8 10*3/uL High 3.6-10.7 [facility] Comment on above: Performed By: #### L [id number] ####Registered Nurse Step Down: NED PAK ([id number])[facility])[address] [place] [address] Consulton 01-27-2023 Consult Normal [facility] MAGNESIUMon 01-27-2023 Magnesium [Mass/Vol] 2.0 mg/dL Normal 1.6-2.3 [facility] Comment on above: Performed By: #### L AB40, WWS788, LAB15, LLJ317 ####Registered Nurse Step Down: NED PAK ([id number])[facility] ([facility])[address] [place] [address] PHOSPHORUSon 01-27-2023 Phosphate [Mass/Vol] 2.4 mg/dL Low 2.5-4.5 [facility] Comment on above: Performed By: #### L AB40, QHC171, LAB15, YJY473 ####Registered Nurse Step Down: NED PAK ([id number])[facility])[address] [place] [address] PROCALCITONIN TESTon 023 PROCALCITONIN 1.61 ng/mL High 0.00-0.09 [facility] Comment on above: Result Comment: ORDE R COMMENTS:PCT <0.50 = Low risk of severe sepsis and/or septic shock.PCT >2.00 = High risk of severe sepsis and/or septic shock. Performed By: #### L [id number] ####Registered Nurse Step Down: NED PAK ([id number])[address] Progress Noteon 01-27-2023 Progress Note Normal [facility] Progress Note Normal [facility] Progress Note Normal [facility] Progress Note Normal [facility] VANCOMYCIN, RANDOMon 023 VANCOMYCIN 13.4 ug/mL Low 15.0-20.0 [facility] Comment on above: Order Comment: Alphonse gonzalez draw random vancomycin level @ 0400 on 01-27-23. Thank you. Performed By: #### L AB40, NEA868, LAB15, SMJ604 ####Registered Nurse Step Down: NED PAK ([id number])[facility])[address] [place] [address] BASIC METABOLIC PANELon Anion gap [Moles/Vol] 6 mmol/L Normal 3-13 [facility] Comment on above: Performed By: #### L AB15, LAB40, UOM880, TOE053 ####Registered Nurse Step Down: NED PAK ([phone])[facility])[address] [place] [address] Calcium [Mass/Vol] 8.9 mg/dL Normal 8.4-10.4 [facility] Comment on above: Performed By: #### L AB15, LAB40, SHF879, TGI709 ####Registered Nurse Step Down: NED PAK ([id number])[facility])[address] [place] [address] Chloride [Moles/Vol] 124 mmol/L High 98-107 [facility] Comment on above: Performed By: #### L AB15, LAB40, GAK176, YWJ979 ####Registered Nurse Step Down: NED PAK ([id number])[facility])[address] [place] [address] CO2 [Moles/Vol] 18 mmol/L Low 22-30 [facility] Comment on above: Performed By: #### L AB15, LAB40, TJO644, TWE899 ####Registered Nurse Step Down: NED PAK ([id number])[facility])[address] [place] [address] Creatinine [Mass/Vol] 0.52 mg/dL Normal 0.52-1.04 [facility] Comment on above: Performed By: #### L AB15, LAB40, XQT672, FOB514 ####Registered Nurse Step Down: NED PAK ([id number])[facility])[address] [place] [address] GLOMERULAR FILTRATION RATE ML/MIN/1.73 SQ M.PREDICTED >90.0 Normal >60.0 [facility] Comment on above: Result Comment: Calc ulation based on the Chronic Kidney Disease Epidemiology Collaboration (CKD-EPI) equation refit without adjustment for raceORDER COMMENTS:Slightly Hemolyzed. Interpret K+ with caution. Performed By: #### L AB15, LAB40, XGN341, REH836 ####Registered Nurse Step Down: NED PAK ([id number])[facility])[address] [place] [address] Glucose [Mass/Vol] 108 mg/dL High 70-100 [facility] Comment on above: Performed By: #### L AB15, LAB40, EYF673, TLV583 ####Registered Nurse Step Down: NED PAK ([id number])[facility])[address] [place] [address] Potassium [Moles/Vol] 3.8 mmol/L Normal 3.5-5.1 [facility] Comment on above: Performed By: #### L AB15, LAB40, NRW745, XQZ392 ####Registered Nurse Step Down: NED PAK ([id number])[facility])[address] [place] [address] Sodium [Moles/Vol] 148 mmol/L High 135-145 [facility] Comment on above: Performed By: #### L AB15, LAB40, CEF518, MLM123 ####Registered Nurse Step Down: NED PAK ([id number])[facility])[address] [place] [address] Urea nitrogen [Mass/Vol] 23 mg/dL High 7-17 [facility] Comment on above: Performed By: #### L AB15, LAB40, HRL860, KWB677 ####Registered Nurse Step Down: NED PAK ([id number])[facility])[address] [place] [address] CARECOORDon 01-26-2023 CARECOORD Normal [facility] CBC (HEMOGRAM)on 01-26-2023 Erythrocyte distribution width (RBC) [Ratio] 16.1 % High 11.5-14.5 [facility] Comment on above: Performed By: #### L [id number] ####Registered Nurse Step Down: NED PAK ([id number])[facility] ([facility])[address] [place] [address] ERYTHROCYTE MEAN CORPUSCULAR HEMOGLOBIN CONCENTRATION (G/DL) BY AUTOMATED 31.2 % Low 32.0-36.0 [facility] Comment on above: Performed By: #### L [id number] ####Registered Nurse Step Down: NED PAK ([id number])[facility])[address] [place] [address] Hematocrit (Bld) [Volume fraction] 37.0 % Normal 35.0-47.0 [facility] Comment on above: Performed By: #### L AB294 ####Registered Nurse Step Down: NED PAK ([id number])[facility])[address] [place] [address] Hemoglobin (Bld) [Mass/Vol] 11.5 g/dL Low 11.7-16.0 [facility] Comment on above: Performed By: #### L AB294 ####Registered Nurse Step Down: NED PAK ([id number])[facility])[address] [place] [address] MCH (RBC) [Entitic mass] 27.9 pg Normal 26.0-34.0 [facility] Comment on above: Performed By: #### L [id number] ####Registered Nurse Step Down: NED PAK ([id number])[facility])[address] [place] [address] MCV (RBC) [Entitic vol] 89.5 fL Normal 80.0-98.0 [facility] Comment on above: Performed By: #### L [id number] ####Registered Nurse Step Down: NED PAK ([id number])[facility])[address] [place] [address] Platelet mean volume (Bld) [Entitic vol] 8.6 fL Normal 7.4-12.4 [facility] Comment on above: Performed By: #### L [id number] ####Registered Nurse Step Down: NED PAK ([id number])[facility])[address] [place] [address] Platelets (Bld) [#/Vol] 204 10*3/uL Normal 140-440 [facility] Comment on above: Performed By: #### L AB294 ####Registered Nurse Step Down: NED PAK ([id number])[facility])[address] [place] [address] RBC (Bld) [#/Vol] 4.14 10*6/uL Normal 3.8-5.20 [facility] Comment on above: Performed By: #### L [id number] ####Registered Nurse Step Down: NED PAK ([id number])[address] WBC (Bld) [#/Vol] 19.8 10*3/uL High 3.6-10.7 [facility] Comment on above: Performed By: #### L AB294 ####Registered Nurse Step Down: NED PAK ([id number])[address] MAGNESIUMon 01-26-2023 Magnesium [Mass/Vol] 1.9 mg/dL Normal 1.6-2.3 [facility] Comment on above: Result Comment: ORDE R COMMENTS:Slightly Hemolyzed. Interpret Magnesium with caution. Performed By: #### L AB15, LAB40, CQD079, LTB226 ####Registered Nurse Step Down: NED PAK ([id number])[address] Nursing Noteon 01-26-2023 Nursing Note Trauma at bedside pr eparing patient for TLC insertion. Normal [facility] Nursing Note Called daughter and updated her on EEG being removed, C-collar being removed and probable need for central IV access. Answered all questions and concerns at this time. Offered for daughter to call anytime for concerns or updates. Normal [facility] Nursing Note Normal [facility] Nursing Note EEG removed per EMU staff/tech. Normal [facility] Nursing Note RN spoke to and granddaughter of patient at bedside. Questions answered and concerns addressed. Reassurance given. Will con't to monitor for further questions/concerns while family visiting at bedside. Normal [facility] Nursing Note Normal [facility] PHOSPHORUSon 01-26-2023 Phosphate [Mass/Vol] 2.9 mg/dL Normal 2.5-4.5 [facility] Comment on above: Result Comment: ORDE R COMMENTS:Slightly Hemolyzed. Interpret Phosphorus with caution. Performed By: #### L AB15, LAB40, QVL963, MBD382 ####Registered Nurse Step Down: NED PAK ([id number])[facility])[address] [place] [address] Progress Noteon 01-26-2023 Progress Note Normal [facility] VANCOMYCIN, RANDOMon 023 VANCOMYCIN 10.8 ug/mL Low 15.0-20.0 [facility] Comment on above: Order Comment: Pleas e draw random vancomycin level with am labs 01/26/23 at least >2 hours after the end of the last vancomycin infusion. Thank you! Performed By: #### L AB15, LAB40, MVU892, NGP892 ####Registered Nurse Step Down: NED PAK ([id number])[facility])[address] [place] [address] XR CHEST 1 VIEWon 01-26-2023 XR CHEST 1 VIEW Normal [facility] XR CHEST 1 VIEW Normal [facility] BASIC METABOLIC PANELon Anion gap [Moles/Vol] 10 mmol/L Normal 3-13 [facility] Comment on above: Performed By: #### L AB15, RKX939, HEI293 ####Registered Nurse Step Down: NED PAK ([id number])[facility])[address] [place] [address] Calcium [Mass/Vol] 8.9 mg/dL Normal 8.4-10.4 [facility] Comment on above: Performed By: #### L AB15, XKQ193, SQL199 ####Registered Nurse Step Down: NED PAK ([id number])[facility])[address] [place] [address] Chloride [Moles/Vol] 114 mmol/L High 98-107 [facility] Comment on above: Performed By: #### L AB15, TJT169, VCA183 ####Registered Nurse Step Down: NED PAK ([id number])[facility])[address] [place] [address] CO2 [Moles/Vol] 15 mmol/L Low 22-30 [facility] Comment on above: Performed By: #### L AB15, OSQ059, RHF097 ####Registered Nurse Step Down: NED PAK ([id number])[facility])[address] [place] [address] Creatinine [Mass/Vol] 0.55 mg/dL Normal 0.52-1.04 [facility] Comment on above: Performed By: #### L AB15, NPW272, ZVM992 ####Registered Nurse Step Down: NED PAK ([id number])[facility])[address] [place] [address] GLOMERULAR FILTRATION RATE ML/MIN/1.73 SQ M.PREDICTED >90.0 Normal >60.0 [facility] Comment on above: Result Comment: Calc ulation based on the Chronic Kidney Disease Epidemiology Collaboration (CKD-EPI) equation refit without adjustment for race Performed By: #### L AB15, ZLO156, TTZ083 ####Registered Nurse Step Down: NED PAK ([id number])[facility])[address] [place] [address] Glucose [Mass/Vol] 79 mg/dL Normal 70-100 [facility] Comment on above: Performed By: #### L AB15, YUY617, RAF341 ####Registered Nurse Step Down: NED APK ([id number])[facility])[address] [place] [address] Potassium [Moles/Vol] 3.4 mmol/L Low 3.5-5.1 [facility] Comment on above: Performed By: #### L AB15, SYS900, MBO135 ####Registered Nurse Step Down: NED PAK ([id number])[facility])[address] [place] [address] [place] Sodium [Moles/Vol] 140 mmol/L Normal 135-145 [facility] Comment on above: Performed By: #### L AB15, HXQ812, TCG410 ####Registered Nurse Step Down: NED PAK ([id number])[facility])[address] [place] [address] [place] Urea nitrogen [Mass/Vol] 22 mg/dL High 7-17 [facility] Comment on above: Performed By: #### L AB15, EUS874, HVX168 ####Registered Nurse Step Down: NED PAK ([id number])[facility])[address] [place] [address] BLOOD CULTUREon 01-25-2023 Bacteria identified Cx Nom (Bld) Normal [facility] Comment on above: Performed By: #### L AB462 ####Registered Nurse Step Down: NED PAK ([id number])[facility])[address] [place] [address] Bacteria identified Cx Nom (Bld) Normal [facility] Comment on above: Performed By: #### L AB462 ####Registered Nurse Step Down: NED PAK ([id number])[facility])[address] [place] [address] CARECOORDon 01-25-2023 CARECOORD Normal [facility] CBC (HEMOGRAM)on 01-25-2023 Erythrocyte distribution width (RBC) [Ratio] 15.3 % High 11.5-14.5 [facility] Comment on above: Performed By: #### L AB294 ####Registered Nurse Step Down: NED PAK ([id number])[facility])[address] [place] [address] ERYTHROCYTE MEAN CORPUSCULAR HEMOGLOBIN CONCENTRATION (G/DL) BY AUTOMATED 32.5 % Normal 32.0-36.0 [facility] Comment on above: Performed By: #### L [id number] ####Registered Nurse Step Down: NED PAK ([id number])[facility])[address] [place] [address] Hematocrit (Bld) [Volume fraction] 36.1 % Normal 35.0-47.0 [facility] Comment on above: Performed By: #### L [id number] ####Registered Nurse Step Down: NED PAK ([id number])[address] Hemoglobin (Bld) [Mass/Vol] 11.8 g/dL Normal 11.7-16.0 [facility] Comment on above: Performed By: #### L [id number] ####Registered Nurse Step Down: NED PAK ([id number])[facility])[address] [place] [address] MCH (RBC) [Entitic mass] 28.4 pg Normal 26.0-34.0 [facility] Comment on above: Performed By: #### L [id number] ####Registered Nurse Step Down: NED PAK ([id number])[facility])[address] [place] [address] MCV (RBC) [Entitic vol] 87.2 fL Normal 80.0-98.0 [facility] Comment on above: Performed By: #### L [id number] ####Registered Nurse Step Down: NED PAK ([id number])[facility])[address] [place] [address] Platelet mean volume (Bld) [Entitic vol] 8.9 fL Normal 7.4-12.4 [facility] Comment on above: Performed By: #### L [id number] ####Registered Nurse Step Down: NED PAK ([id number])[facility])[address] [place] [address] Platelets (Bld) [#/Vol] 246 10*3/uL Normal 140-440 [facility] Comment on above: Performed By: #### L [id number] ####Registered Nurse Step Down: NED PAK ([id number])[facility])[address] [place] [address] RBC (Bld) [#/Vol] 4.14 10*6/uL Normal 3.8-5.20 [facility] Comment on above: Performed By: #### L [id number] ####Registered Nurse Step Down: NED PAK ([id number])[facility])[address] [place] [address] WBC (Bld) [#/Vol] 20.3 10*3/uL High 3.6-10.7 [facility] Comment on above: Performed By: #### L [id number] ####Registered Nurse Step Down: NED PAK ([id number])[facility])[address] [place] [address] MAGNESIUMon 01-25-2023 Magnesium [Mass/Vol] 1.9 mg/dL Normal 1.6-2.3 [facility] Comment on above: Performed By: #### L AB15, QHO312, PMA560 ####Registered Nurse Step Down: NED PAK ([id number])[facility])[address] [place] [address] PHOSPHORUSon 01-25-2023 Phosphate [Mass/Vol] 2.1 mg/dL Low 2.5-4.5 [facility] Comment on above: Performed By: #### L AB15, TCD469, UYN773 ####Registered Nurse Step Down: NED PAK ([id number])[facility])[address] [place] [address] PNEUMONIA PCR PANELon 2022 PNEUMONIA PCR PANEL Normal [facility] Comment on above: Performed By: #### L [id number] ####Registered Nurse Step Down: NED PAK ([id number])[facility])[address] [place] [address] PROCALCITONIN TESTon 023 PROCALCITONIN 4.67 ng/mL High 0.00-0.09 [facility] Comment on above: Result Comment: ORDE R COMMENTS:PCT <0.50 = Low risk of severe sepsis and/or septic shock.PCT >2.00 = High risk of severe sepsis and/or septic shock. Performed By: #### L [id number] ####Registered Nurse Step Down: NED PAK ([id number])[facility] ([facility])[address] [place] [address] Progress Noteon 01-25-2023 Progress Note Normal [facility] [...] Non 01-25-2023 RESPIRATORY CULTURE AND STAIN Normal [facility] Comment on above: Performed By: #### L [id number] ####Registered Nurse Step Down: NED PAK ([phone])[facility])[address] [place] [address] BASIC METABOLIC PANELon 11-0 Anion gap [Moles/Vol] 10 mmol/L Normal 3-13 [facility] Comment on above: Performed By: #### L [id number] ####Registered Nurse Step Down: NED PAK ([id number])[facility] ([facility])[address] [place] [address] Calcium [Mass/Vol] 9.8 mg/dL Normal 8.4-10.4 [facility] Comment on above: Performed By: #### L [id number] ####Registered Nurse Step Down: NED PAK ([id number])[facility] ([facility])[address] [place] [address] Chloride [Moles/Vol] 111 mmol/L High 98-107 [facility] Comment on above: Performed By: #### L [id number] ####Registered Nurse Step Down: NED PAK ([id number])[facility])[address] [place] [address] CO2 [Moles/Vol] 19 mmol/L Low 22-30 [facility] Comment on above: Performed By: #### L [id number] ####Registered Nurse Step Down: NED PAK ([id number])[facility])[address] [place] [address] Creatinine [Mass/Vol] 0.69 mg/dL Normal 0.52-1.04 [facility] Comment on above: Performed By: #### L AB15 ####Registered Nurse Step Down: NED PAK ([id number])[facility])[address] [place] [address] GLOMERULAR FILTRATION RATE ML/MIN/1.73 SQ M.PREDICTED 89.0 mL/min/1.73m*2 Normal >60.0 [facility] Comment on above: Result Comment: Calc ulation based on the Chronic Kidney Disease Epidemiology Collaboration (CKD-EPI) equation refit without adjustment for raceORDER COMMENTS:Slightly Hemolyzed. Interpret Potassium with caution. Performed By: #### L AB15 ####Registered Nurse Step Down: NED PAK ([id number])[facility] ([facility])[address] [place] [address] Glucose [Mass/Vol] 90 mg/dL Normal 70-100 [facility] Comment on above: Performed By: #### L [id number] ####Registered Nurse Step Down: NED PAK ([id number])[facility])[address] [place] [address] Potassium [Moles/Vol] 4.0 mmol/L Normal 3.5-5.1 [facility] Comment on above: Performed By: #### L [id number] ####Registered Nurse Step Down: NED PAK ([id number])[facility])[address] [place] [address] Sodium [Moles/Vol] 141 mmol/L Normal 135-145 [facility] Comment on above: Performed By: #### L [id number] ####Registered Nurse Step Down: NED PAK ([id number])[facility])[address] [place] [address] Urea nitrogen [Mass/Vol] 27 mg/dL High 7-17 [facility] Comment on above: Performed By: #### L [id number] ####Registered Nurse Step Down: NED PAK ([id number])[facility])[address] [place] [address] BLOOD GAS, VENOUSon 01-25-20 23 Base excess Calc (BldV) [Moles/Vol] -6.0000 mmol/L Low -3.0-3.0 [facility] Comment on above: Performed By: #### L [id number] ####Registered Nurse Step Down: NED PAK ([id number])[facility])[address] [place] [address] [place] CO2 [Moles/Vol] 19.3 mmol/L Low 24.0-28.0 [facility] Comment on above: Performed By: #### L [id number] ####Registered Nurse Step Down: NED PAK ([id number])[facility])[address] [place] [address] HCO3 (Bld) [Moles/Vol] 18.3 mmol/L Low 23.0-27.0 [facility] Comment on above: Performed By: #### L AB79 ####Registered Nurse Step Down: NED PAK ([id number])[facility])[address] [place] [address] Hemoglobin (Bld) [Mass/Vol] 10.4 g/dL Normal Screen Only [facility] Comment on above: Performed By: #### L [id number] ####Registered Nurse Step Down: NED PAK ([id number])[address] OXYGEN (MM HG) IN VENOUS BLOOD 17.1 mm Hg Low 30.0-50.0 [facility] Comment on above: Performed By: #### L [id number] ####Registered Nurse Step Down: NED PAK ([id number])[facility])[address] [place] [address] OXYGEN SATURATION (%) IN VENOUS BLOOD 17.6 % Low 60.0-80.0 [facility] Comment on above: Performed By: #### L [id number] ####Registered Nurse Step Down: NED PAK ([id number])[facility])[address] [place] [address] PCO2, MIGUEL 31.9 mm Hg Low 40.0-55.0 [facility] Comment on above: Performed By: #### L [id number] ####Registered Nurse Step Down: NED PAK ([id number])[address] PH VENOUS 7.376 Normal 7.330-7.43 0 [facility] Comment on above: Performed By: #### L [id number] ####Registered Nurse Step Down: NED PAK ([id number])[facility])[address] [place] [address] SOURCE OF OXYGEN Room Air Normal [facility] Comment on above: Performed By: #### L [id number] ####Registered Nurse Step Down: NED PAK ([id number])[facility])[address] [place] [address] CBC (HEMOGRAM)on 01-24-2023 Erythrocyte distribution width (RBC) [Ratio] 14.9 % High 11.5-14.5 [facility] Comment on above: Performed By: #### L [id number] ####Registered Nurse Step Down: NED PAK ([id number])[address] ERYTHROCYTE MEAN CORPUSCULAR HEMOGLOBIN CONCENTRATION (G/DL) BY AUTOMATED 31.5 % Low 32.0-36.0 [facility] Comment on above: Performed By: #### L [id number] ####Registered Nurse Step Down: NED PAK ([id number])[facility])[address] [place] [address] Hematocrit (Bld) [Volume fraction] 35.3 % Normal 35.0-47.0 [facility] Comment on above: Performed By: #### L [id number] ####Registered Nurse Step Down: NED PAK ([id number])[facility])[address] [place] [address] Hemoglobin (Bld) [Mass/Vol] 11.1 g/dL Low 11.7-16.0 [facility] Comment on above: Performed By: #### L [id number] ####Registered Nurse Step Down: NED PAK ([id number])[facility])[address] [place] [address] MCH (RBC) [Entitic mass] 28.2 pg Normal 26.0-34.0 [facility] Comment on above: Performed By: #### L [id number] ####Registered Nurse Step Down: NED PAK ([id number])[facility])[address] [place] [address] MCV (RBC) [Entitic vol] 89.6 fL Normal 80.0-98.0 [facility] Comment on above: Performed By: #### L [id number] ####Registered Nurse Step Down: NED PAK ([id number])[facility] ([facility])[address] [place] [address] Platelet mean volume (Bld) [Entitic vol] 9.1 fL Normal 7.4-12.4 [facility] Comment on above: Performed By: #### L [id number] ####Registered Nurse Step Down: NED PAK ([id number])[facility] ([facility])[address] [place] [address] Platelets (Bld) [#/Vol] 217 10*3/uL Normal 140-440 [facility] Comment on above: Performed By: #### L [id number] ####Registered Nurse Step Down: NED PAK ([id number])[facility] ([facility])[address] [place] [address] RBC (Bld) [#/Vol] 3.94 10*6/uL Normal 3.8-5.20 [facility] Comment on above: Performed By: #### L [id number] ####Registered Nurse Step Down: NED PAK ([id number])[facility] ([facility])[address] [place] [address] WBC (Bld) [#/Vol] 17.6 10*3/uL High 3.6-10.7 [facility] Comment on above: Performed By: #### L [id number] ####Registered Nurse Step Down: NED PAK ([id number])[facility] ([facility])[address] [place] [address] Consulton 01-24-2023 Consult Normal [facility] Consult Normal [facility] ECG 12-LEADon 01-24-2023 ECG 12-LEAD IMPRESSION: Sinus rhythm Left ventricular hypertrophy Electronically Signed On 01-24-2023 20:02:49 EST by Hari Hicks Normal [facility] ECG 12-LEAD IMPRESSION: Sinus tachycardia Probable left atrial enlargement Left axis deviation Borderline T wave abnormalities ST elevation, consider inferior injury Electronically Signed On 01-24-2023 15:11:14 EST by Hari Hicks [facility] ECG 12-LEAD IMPRESSION: Sinus tachycardia Left ventricular hypertrophy Electronically Signed On 01-24-2023 15:03:34 EST by Hari Hicks [facility] LACTIC ACID WITH REFLEXon Lactate [Moles/Vol] 2.0 mmol/L Normal 0.7-2.0 [facility] Comment on above: Performed By: #### L [id number] ####Registered Nurse Step Down: NED PAK ([id number])[facility] ([facility])[address] [place] [address] Lactate [Moles/Vol] 2.7 mmol/L High 0.7-2.0 [facility] Comment on above: Performed By: #### L [id number] ####Registered Nurse Step Down: NED PAK ([id number])[facility] ([facility])[address] [place] [address] Lactate [Moles/Vol] 2.9 mmol/L High 0.7-2.0 [facility] Comment on above: Performed By: #### L [id number] ####Registered Nurse Step Down: NED PAK ([id number])[facility] ([facility])[address] [place] [address] Progress Noteon 01-24-2023 Progress Note Normal [facility] Progress Note Normal [facility] Progress Note Normal [facility] XR ABDOMEN 1 VIEWon 01-25-20 23 XR ABDOMEN 1 VIEW Normal [facility] BASIC METABOLIC PANELon Anion gap [Moles/Vol] 13 mmol/L Normal 3-13 [facility] Comment on above: Performed By: #### L [id number], [id number] ####Registered Nurse Step Down: NED PAK ([id number])[facility])[address] [place] [address] Calcium [Mass/Vol] 9.6 mg/dL Normal 8.4-10.4 [facility] Comment on above: Performed By: #### L AB15, [id number] ####Registered Nurse Step Down: NED PKA ([id number])[facility] [place] [address] [place] Chloride [Moles/Vol] 110 mmol/L High 98-107 [facility] Comment on above: Performed By: #### Tameka GODDARD, [id number] ####Registered Nurse Step Down: NED PAK ([id number])[facility] [place] [address] [place] CO2 [Moles/Vol] 19 mmol/L Low 22-30 [facility] Comment on above: Performed By: #### Tameka GODDARD, [id number] ####Registered Nurse Step Down: NED PAK ([id number])[facility] ([facility])[address] [place] [address] Creatinine [Mass/Vol] 0.82 mg/dL Normal 0.52-1.04 [facility] Comment on above: Performed By: #### Tameka GODDARD, [id number] ####Registered Nurse Step Down: NED PAK ([id number])[facility] ([facility])[address] [place] [address] [place] GLOMERULAR FILTRATION RATE ML/MIN/1.73 SQ M.PREDICTED 73.3 mL/min/1.73m*2 Normal >60.0 [facility] Comment on above: Result Comment: Calc ulation based on the Chronic Kidney Disease Epidemiology Collaboration (CKD-EPI) equation refit without adjustment for race Performed By: #### Tameka GODDARD, [id number] ####Registered Nurse Step Down: NED PAK ([id number])[facility] [place] [address] [place] Glucose [Mass/Vol] 112 mg/dL High 70-100 [facility] Comment on above: Performed By: #### Tameka GODDARD, [id number] ####Registered Nurse Step Down: NED PAK ([id number])[facility] [place] [address] [place] Potassium [Moles/Vol] 4.0 mmol/L Normal 3.5-5.1 [facility] Comment on above: Performed By: #### L AB15, [id number] ####Registered Nurse Step Down: NED PAK ([id number])[facility] ([facility])[address] [place] [address] Sodium [Moles/Vol] 143 mmol/L Normal 135-145 [facility] Comment on above: Performed By: #### L AB15, [id number] ####Registered Nurse Step Down: NED PAK ([id number])[facility] ([facility])[address] [place] [address] Urea nitrogen [Mass/Vol] 30 mg/dL High 7-17 [facility] Comment on above: Performed By: #### L AB15, [id number] ####Registered Nurse Step Down: NED PAK ([id number])[facility] ([facility])[address] [place] [address] Anion gap [Moles/Vol] 14 mmol/L High 3-13 [facility] Comment on above: Performed By: #### L AB62, [id number], LAB15, [id number] ####Registered Nurse Step Down: NED PAK ([id number])[facility] ([facility])[address] [place] [address] Calcium [Mass/Vol] 10.4 mg/dL Normal 8.4-10.4 [facility] Comment on above: Performed By: #### L AB62, [id number], LAB15, [id number] ####Registered Nurse Step Down: NED PAK ([id number])[facility] ([facility])[address] [place] [address] [place] Chloride [Moles/Vol] 105 mmol/L Normal 98-107 [facility] Comment on above: Performed By: #### L AB62, [id number], LAB15, [id number] ####Registered Nurse Step Down: NED PAK ([id number])[facility])[address] [place] [address] [place] CO2 [Moles/Vol] 18 mmol/L Low 22-30 [facility] Comment on above: Performed By: #### L AB62, [id number], LAB15, [id number] ####Registered Nurse Step Down: NDE PAK ([id number])[facility])[address] [place] [address] Creatinine [Mass/Vol] 1.47 mg/dL High 0.52-1.04 [facility] Comment on above: Performed By: #### L AB62, [id number], LAB15, [id number] ####Registered Nurse Step Down: NED PAK ([id number])[facility])[address] [place] [address] GLOMERULAR FILTRATION RATE ML/MIN/1.73 SQ M.PREDICTED 36.4 mL/min/1.73m*2 Low >60.0 [facility] Comment on above: Result Comment: Calc ulation based on the Chronic Kidney Disease Epidemiology Collaboration (CKD-EPI) equation refit without adjustment for race Performed By: #### L AB62, [id number], LAB15, [id number] ####Registered Nurse Step Down: NED PAK ([id number])[facility])[address] [place] [address] Glucose [Mass/Vol] 128 mg/dL High 70-100 [facility] Comment on above: Performed By: #### L AB62, [id number], LAB15, [id number] ####Registered Nurse Step Down: NED PAK ([id number])[facility])[address] [place] [address] Potassium [Moles/Vol] 3.5 mmol/L Normal 3.5-5.1 [facility] Comment on above: Performed By: #### L AB62, [id number], LAB15, [id number] ####Registered Nurse Step Down: NED PAK ([id number])[facility])[address] [place] [address] Sodium [Moles/Vol] 137 mmol/L Normal 135-145 [facility] Comment on above: Performed By: #### L AB62, [id number], LAB15, [id number] ####Registered Nurse Step Down: NED PAK ([id number])[facility])[address] [place] [address] Urea nitrogen [Mass/Vol] 35 mg/dL High 7-17 [facility] Comment on above: Performed By: #### L AB62, [id number], LAB15, [id number] ####Registered Nurse Step Down: NED PAK ([id number])[facility])[address] [place] [address] Anion gap [Moles/Vol] 12 mmol/L Normal 3-13 [facility] Comment on above: Performed By: #### L AB15, [id number] ####Registered Nurse Step Down: NED PAK ([id number])[facility] ([facility])[address] [place] [address] Calcium [Mass/Vol] 10.6 mg/dL High 8.4-10.4 [facility] Comment on above: Performed By: #### Tameka HEREDIA15, [id number] ####Registered Nurse Step Down: NED PAK ([id number])[facility])[address] [place] [address] Chloride [Moles/Vol] 105 mmol/L Normal 98-107 [facility] Comment on above: Performed By: #### L 15, [id number] ####Registered Nurse Step Down: NED PAK ([id number])[facility] [place] [address] CO2 [Moles/Vol] 19 mmol/L Low 22-30 [facility] Comment on above: Performed By: #### Tameka HEREDIA15, [id number] ####Registered Nurse Step Down: NED PAK ([id number])[facility] [place] [address] [place] Creatinine [Mass/Vol] 1.26 mg/dL High 0.52-1.04 [facility] Comment on above: Performed By: #### L AB15, [id number] ####Registered Nurse Step Down: NED PAK ([id number])[facility])[address] [place] [address] GLOMERULAR FILTRATION RATE ML/MIN/1.73 SQ M.PREDICTED 43.8 mL/min/1.73m*2 Low >60.0 [facility] Comment on above: Result Comment: Calc ulation based on the Chronic Kidney Disease Epidemiology Collaboration (CKD-EPI) equation refit without adjustment for race Performed By: #### L 15, [id number] ####Registered Nurse Step Down: NED PAK ([id number])[facility] ([facility])[address] [place] [address] Glucose [Mass/Vol] 152 mg/dL High 70-100 [facility] Comment on above: Performed By: #### Tameka AB15, [id number] ####Registered Nurse Step Down: NED PAK ([id number])[facility])[address] [place] [address] Potassium [Moles/Vol] 3.5 mmol/L Normal 3.5-5.1 [facility] Comment on above: Performed By: #### Tameka HEREDIA15, [id number] ####Registered Nurse Step Down: NED PAK ([id number])[facility] ([facility])[address] [place] [address] Sodium [Moles/Vol] 137 mmol/L Normal 135-145 [facility] Comment on above: Performed By: #### Tameka AB15, [id number] ####Registered Nurse Step Down: NED PAK ([id number])[facility] ([facility])[address] [place] [address] Urea nitrogen [Mass/Vol] 33 mg/dL High 7-17 [facility] Comment on above: Performed By: #### Tameka AB15, [id number] ####Registered Nurse Step Down: NED PAK ([id number])[facility] ([facility])[address] [place] [address] BLOOD CULTUREon 01-23-2023 Bacteria identified Cx Nom (Bld) Normal [facility] Comment on above: Performed By: #### L [id number], [id number] ####Registered Nurse Step Down: NED PAK ([id number])[facility])[address] [place] [address] Performed By: #### L [id number] ####Registered Nurse Step Down: NED PAK ([id number])[facility])[address] [place] [address] BLOOD CULTURE IDENTIFICATION - AEROBICon 01-23-2023 BLOOD CULTURE IDENTIFICATION - AEROBIC Normal [facility] Comment on above: Performed By: #### L [id number], [id number] ####Registered Nurse Step Down: NED PAK ([id number])[facility])[address] [place] [address] BLOOD GAS ARTERIALon 023 Base excess Calc (Bld) [Moles/Vol] -6.1000 mmol/L Low -3.0-3.0 [facility] Comment on above: Performed By: #### L AB76 ####Registered Nurse Step Down: NED PAK ([id number])[facility])[address] [place] [address] CO2 [Moles/Vol] 18.7 mmol/L Low 23.0-27.0 [facility] Comment on above: Performed By: #### L AB76 ####Registered Nurse Step Down: NED PAK ([id number])[facility])[address] [place] [address] HCO3 (Bld) [Moles/Vol] 17.8 mmol/L Low 21.0-25.0 [facility] Comment on above: Performed By: #### L AB76 ####Registered Nurse Step Down: NED PAK ([id number])[facility])[address] [place] [address] Hemoglobin (Bld) [Mass/Vol] 10.8 g/dL Normal Screen Only [facility] Comment on above: Performed By: #### L AB76 ####Registered Nurse Step Down: NED PAK ([id number])[facility])[address] [place] [address] OXYGEN SATURATION (%) IN ARTERIAL BLOOD 93.2 % Low 95.0-100.0 [facility] Comment on above: Performed By: #### L AB76 ####Registered Nurse Step Down: NED PAK ([id number])[facility])[address] [place] [address] PCO2 ARTERIAL 29.6 mm Hg Low >35.0-<45. 0 [facility] Comment on above: Performed By: #### L AB76 ####Registered Nurse Step Down: NED PAK ([id number])[facility])[address] [place] [address] PH ARTERIAL 7.396 Normal 7.350-7.45 0 [facility] Comment on above: Performed By: #### L AB76 ####Registered Nurse Step Down: NED PAK ([id number])[address] PO2 ARTERIAL 70.8 mm Hg Low 80.0-100.0 [facility] Comment on above: Performed By: #### L AB76 ####Registered Nurse Step Down: NED PAK ([id number])[address] SOURCE OF OXYGEN Room Air Normal [facility] Comment on above: Performed By: #### L AB76 ####Registered Nurse Step Down: NED PAK ([id number])[address] CARECOORDon 01-23-2023 [place] Daughter Marily Call ed and notified of transfer to the ICU. Questions Answered. Normal [facility] CBC (HEMOGRAM)on 01-23-2023 Erythrocyte distribution width (RBC) [Ratio] 14.5 % Normal 11.5-14.5 [facility] Comment on above: Performed By: #### L [id number] ####Registered Nurse Step Down: NED PAK ([id number])[address] ERYTHROCYTE MEAN CORPUSCULAR HEMOGLOBIN CONCENTRATION (G/DL) BY AUTOMATED 31.9 % Low 32.0-36.0 [facility] Comment on above: Performed By: #### L [id number] ####Registered Nurse Step Down: NED [id number])[facility])[address] [place] [address] Hematocrit (Bld) [Volume fraction] 33.4 % Low 35.0-47.0 [facility] Comment on above: Performed By: #### L [id number] ####Registered Nurse Step Down: NED PAK ([id number])[facility])[address] [place] [address] Hemoglobin (Bld) [Mass/Vol] 10.6 g/dL Low 11.7-16.0 [facility] Comment on above: Performed By: #### L [id number] ####Registered Nurse Step Down: NED PAK ([id number])[address] MCH (RBC) [Entitic mass] 28.3 pg Normal 26.0-34.0 [facility] Comment on above: Performed By: #### L [id number] ####Registered Nurse Step Down: NED PAK ([id number])[facility] ([facility])[address] [place] [address] MCV (RBC) [Entitic vol] 88.8 fL Normal 80.0-98.0 [facility] Comment on above: Performed By: #### L [id number] ####Registered Nurse Step Down: NED PAK ([id number])[facility])[address] [place] [address] Platelet mean volume (Bld) [Entitic vol] 7.2 fL Low 7.4-12.4 [facility] Comment on above: Performed By: #### L [id number] ####Registered Nurse Step Down: NED PAK ([id number])[facility])[address] [place] [address] Platelets (Bld) [#/Vol] 234 10*3/uL Normal 140-440 [facility] Comment on above: Performed By: #### L [id number] ####Registered Nurse Step Down: NED PAK ([id number])[facility] [address] RBC (Bld) [#/Vol] 3.76 10*6/uL Low 3.8-5.20 [facility] Comment on above: Performed By: #### L [id number] ####Registered Nurse Step Down: NED PAK ([id number])[facility])[address] [place] [address] WBC (Bld) [#/Vol] 19.2 10*3/uL High 3.6-10.7 [facility] Comment on above: Performed By: #### L [id number] ####Registered Nurse Step Down: NED PAK ([id number])[facility])[address] [place] [address] CBC WITH AUTO DIFFERENTIALon 01-23-2023 Basophils (Bld) [#/Vol] 0.1 10*3/uL Normal 0.0-0.2 [facility] Comment on above: Performed By: #### L [id number] ####Registered Nurse Step Down: NED PAK ([id number])[facility])[address] [place] [address] Basophils/100 WBC (Bld) 0.3 % Normal 0.0-2.0 [facility] Comment on above: Performed By: #### L [id number] ####Registered Nurse Step Down: NED PAK ([id number])[facility])[address] [place] [address] Eosinophils (Bld) [#/Vol] 0.0 10*3/uL Normal 0.0-0.5 [facility] Comment on above: Performed By: #### L [id number] ####Registered Nurse Step Down: NED PAK ([id number])[facility])[address] [place] [address] Eosinophils/100 WBC (Bld) 0.0 % Low 1.0-6.0 [facility] Comment on above: Performed By: #### L [id number] ####Registered Nurse Step Down: NED PAK ([id number])[facility] [address] Erythrocyte distribution width (RBC) [Ratio] 14.7 % High 11.5-14.5 [facility] Comment on above: Performed By: #### L [id number] ####Registered Nurse Step Down: NED PAK ([id number])[facility])[address] [place] [address] ERYTHROCYTE MEAN CORPUSCULAR HEMOGLOBIN CONCENTRATION (G/DL) BY AUTOMATED 33.1 % Normal 32.0-36.0 [facility] [facility] Comment on above: Performed By: #### L [id number] ####Registered Nurse Step Down: NED PAK ([id number])[address] Hematocrit (Bld) [Volume fraction] 31.9 % Low 35.0-47.0 [facility] Comment on above: Performed By: #### L [id number] ####Registered Nurse Step Down: NED PAK ([id number])[facility])[address] [place] [address] Hemoglobin (Bld) [Mass/Vol] 10.6 g/dL Low 11.7-16.0 [facility] Comment on above: Performed By: #### L [id number] ####Registered Nurse Step Down: NED PAK ([id number])[address] Lymphocytes (Bld) [#/Vol] 1.5 10*3/uL Normal 1.0-4.3 [facility] Comment on above: Performed By: #### L [id number] ####Registered Nurse Step Down: NED PAK ([id number])[facility])[address] [place] [address] Lymphocytes/100 WBC (Bld) 7.3 % Low 20.0-40.0 [facility] Comment on above: Performed By: #### L [id number] ####Registered Nurse Step Down: NED PAK ([id number])[facility])[address] [place] [address] MCH (RBC) [Entitic mass] 28.7 pg Normal 26.0-34.0 [facility] Comment on above: Performed By: #### L [id number] ####Registered Nurse Step Down: NED PAK ([id number])[facility])[address] [place] [address] MCV (RBC) [Entitic vol] 86.8 fL Normal 80.0-98.0 [facility] Comment on above: Performed By: #### L [id number] ####Registered Nurse Step Down: NED PAK ([id number])[facility] ([facility])[address] [place] [address] Monocytes (Bld) [#/Vol] 1.2 10*3/uL High 0.0-0.8 [facility] Comment on above: Performed By: #### L [id number] ####Registered Nurse Step Down: NED PAK ([id number])[facility])[address] [place] [address] Monocytes/100 WBC (Bld) 5.8 % Normal 2.0-10.0 [facility] Comment on above: Performed By: #### L [id number] ####Registered Nurse Step Down: NED PAK ([id number])[facility])[address] [place] [address] Neutrophils (Bld) [#/Vol] 17.5 10*3/uL High 1.8-7.0 [facility] Comment on above: Performed By: #### L [id number] ####Registered Nurse Step Down: NED PAK ([id number])[facility])[address] [place] [address] Neutrophils/100 WBC (Bld) 86.6 % High 40.0-80.0 [facility] Comment on above: Performed By: #### L [id number] ####Registered Nurse Step Down: NED PAK ([id number])[facility])[address] [place] [address] NRBC (PER 100 WBCS) BY AUTOMATED COUNT 0.0 /100 WBCs Normal 0.0-2.0 [facility] Comment on above: Performed By: #### L [id number] ####Registered Nurse Step Down: NED PAK ([id number])[facility])[address] [place] [address] Platelet mean volume (Bld) [Entitic vol] 7.5 fL Normal 7.4-12.4 [facility] Comment on above: Performed By: #### L [id number] ####Registered Nurse Step Down: NED PAK ([id number])[facility] ([facility])[address] [place] [address] Platelets (Bld) [#/Vol] 258 10*3/uL Normal 140-440 [facility] Comment on above: Performed By: #### L [id number] ####Registered Nurse Step Down: NED PAK ([id number])[facility])[address] [place] [address] RBC (Bld) [#/Vol] 3.68 10*6/uL Low 3.8-5.20 [facility] Comment on above: Performed By: #### L [id number] ####Registered Nurse Step Down: NED PAK ([id number])[facility])[address] [place] [address] WBC (Bld) [#/Vol] 20.2 10*3/uL High 3.6-10.7 [facility] Comment on above: Performed By: #### L [id number] ####Registered Nurse Step Down: NED PAK ([id number])[facility])[address] [place] [address] CKon 01-23-2023 CK [Catalytic activity/Vol] 229 U/L High 30-170 [facility] Comment on above: Performed By: #### L [id number], [id number], [id number], [id number] ####Registered Nurse Step Down: NED PAK ([id number])[facility])[address] [place] [address] COMPLETE URINALYSISon 2022 BACTERIA (#/HPF) IN URINE Loaded Abnormal Negative [facility] Comment on above: Performed By: #### L [id number] ####Registered Nurse Step Down: NED PAK ([id number])[facility] ([facility])[address] [place] [address] BILIRUBIN, TOTAL PRESENCE IN URINE Negative Normal Negative [facility] Comment on above: Performed By: #### L [id number] ####Registered Nurse Step Down: NED PAK ([id number])[facility] ([facility])[address] [place] [address] Clarity (U) Extra Turbid Abnormal Clear [facility] Comment on above: Performed By: #### L [id number] ####Registered Nurse Step Down: NED PAK ([id number])[facility])[address] [place] [address] Color (U) Yellow Normal Lt. Yellow [facility] Comment on above: Performed By: #### L [id number] ####Registered Nurse Step Down: NED PAK ([id number])[facility] ([facility])[address] [place] [address] GLUCOSE (MG/DL) IN URINE Normal Normal Normal (<70) [facility] Comment on above: Performed By: #### L [id number] ####Registered Nurse Step Down: NED PAK ([id number])[facility] ([facility])[address] [place] [address] HEMOGLOBIN PRESENCE IN URINE >1.0 Abnormal Negative [facility] Comment on above: Performed By: #### L [id number] ####Registered Nurse Step Down: NED PAK ([id number])[facility] ([facility])[address] [place] [address] HYALINE CASTS (#/LPF) IN URINE SEDIMENT BY MICROSCOPY 51-100 Abnormal Negative [facility] Comment on above: Performed By: #### L [id number] ####Registered Nurse Step Down: NED PAK ([id number])[facility] ([facility])[address] [place] [address] Ketones Ql (U) Negative Normal Negative [facility] Comment on above: Performed By: #### L [id number] ####Registered Nurse Step Down: NED PAK ([id number])[facility])[address] [place] [address] LEUKOCYTE ESTERASE PRESENCE IN URINE BY TEST STRIP 500 Danielito/uL Abnormal Negative [facility] Comment on above: Performed By: #### L [id number] ####Registered Nurse Step Down: NED PAK ([id number])[facility] ([facility])[address] [place] [address] [place] MUCUS (#/LPF) IN URINE SEDIMENT Few Normal Negative [facility] Comment on above: Performed By: #### L [id number] ####Registered Nurse Step Down: NED PAK ([id number])[facility])[address] [place] [address] NITRITE PRESENCE IN URINE Negative Normal Negative [facility] Comment on above: Performed By: #### L [id number] ####Registered Nurse Step Down: NED PAK ([id number])[facility] ([facility])[address] [place] [address] pH (U) 6.0 [pH] Normal 5.0-8.0 [facility] Comment on above: Performed By: #### L [id number] ####Registered Nurse Step Down: NED PAK ([id number])[facility])[address] [place] [address] Protein (U) [Mass/Vol] 100 mg/dL Abnormal Negative [facility] Comment on above: Performed By: #### L [id number] ####Registered Nurse Step Down: NED PAK ([id number])[facility] ([facility])[address] [place] [address] [place] RBC (#/HPF) IN URINE SEDIMENT >100 Abnormal 0-2 [facility] Comment on above: Performed By: #### L [id number] ####Registered Nurse Step Down: NED PAK ([id number])[facility])[address] [place] [address] Specific gravity (U) [Rel density] >1.030 High 1.005-1.03 0 [facility] Comment on above: Performed By: #### L [id number] ####Registered Nurse Step Down: NED PAK ([id number])[facility] ([facility])[address] [place] [address] [place] SQUAMOUS EPITHELIAL CELLS (#/HPF) IN URINE SEDIMENT 0-2 Normal 3-5 [facility] Comment on above: Performed By: #### L [id number] ####Registered Nurse Step Down: NED PAK ([id number])[facility] [place] [address] [place] UROBILINOGEN (MG/DL) IN URINE Normal Normal Normal (0-1) [facility] Comment on above: Performed By: #### L [id number] ####Registered Nurse Step Down: NED PAK ([id number])[facility] [place] [address] [place] WBC (LEUKOCYTE) (#/HPF) IN URINE SEDIMENT >100 Abnormal 0-5 [facility] Comment on above: Performed By: #### L [id number] ####Registered Nurse Step Down: NED PAK ([id number])[facility] [place] [address] [place] WBC (LEUKOCYTE) CLUMPS (#/HPF) IN URINE SEDIMENT Few Abnormal Negative [facility] Comment on above: Performed By: #### L [id number] ####Registered Nurse Step Down: NED PAK ([id number])[facility] [place] [address] [place] AMORPHOUS CRYSTALS (#/HPF) IN URINE Moderate Abnormal Negative [facility] Comment on above: Performed By: #### L [id number] ####Registered Nurse Step Down: NED PAK ([id number])[facility] ([facility])[address] [place] [address] [place] BACTERIA (#/HPF) IN URINE Moderate Abnormal Negative [facility] Comment on above: Performed By: #### L [id number] ####Registered Nurse Step Down: NED PAK ([id number])[facility] ([facility])[address] [place] [address] BILIRUBIN, TOTAL PRESENCE IN URINE Negative Normal Negative [facility] Comment on above: Performed By: #### L [id number] ####Registered Nurse Step Down: NED PAK ([id number])[facility])[address] [place] [address] Clarity (U) Cloudy Abnormal Clear [facility] Comment on above: Performed By: #### L [id number] ####Registered Nurse Step Down: NED PAK ([id number])[facility])[address] [place] [address] Color (U) Yellow Normal Lt. Yellow [facility] Comment on above: Performed By: #### L [id number] ####Registered Nurse Step Down: NED PAK ([id number])[facility])[address] [place] [address] GLUCOSE (MG/DL) IN URINE Normal Normal Normal (<70) [facility] Comment on above: Performed By: #### L [id number] ####Registered Nurse Step Down: NED PAK ([id number])[facility] ([facility])[address] [place] [address] GRANULAR CASTS (#/LPF) IN URINE 6-10 Abnormal Negative [facility] Comment on above: Performed By: #### L [id number] ####Registered Nurse Step Down: NED PAK ([id number])[facility])[address] [place] [address] HEMOGLOBIN PRESENCE IN URINE 0.06 mg/dL Abnormal Negative [facility] Comment on above: Performed By: #### L [id number] ####Registered Nurse Step Down: NED PAK ([id number])[facility] ([facility])[address] [place] [address] HYALINE CASTS (#/LPF) IN URINE SEDIMENT BY MICROSCOPY 3-5 Abnormal Negative [facility] Comment on above: Performed By: #### L [id number] ####Registered Nurse Step Down: NED PAK ([id number])[facility] ([facility])[address] [place] [address] Ketones Ql (U) Negative Normal Negative [facility] Comment on above: Performed By: #### L [id number] ####Registered Nurse Step Down: NED PAK ([id number])[facility])[address] [place] [address] LEUKOCYTE ESTERASE PRESENCE IN URINE BY TEST STRIP 250 Danielito/uL Abnormal Negative [facility] Comment on above: Performed By: #### L [id number] ####Registered Nurse Step Down: NED PAK ([id number])[facility] ([facility])[address] [place] [address] MUCUS (#/LPF) IN URINE SEDIMENT Few Normal Negative [facility] Comment on above: Performed By: #### L [id number] ####Registered Nurse Step Down: NED PAK ([id number])[facility] ([facility])[address] [place] [address] NITRITE PRESENCE IN URINE Positive Abnormal Negative [facility] Comment on above: Performed By: #### L [id number] ####Registered Nurse Step Down: NED PAK ([id number])[facility] ([facility])[address] [place] [address] pH (U) 6.0 [pH] Normal 5.0-8.0 [facility] Comment on above: Performed By: #### L [id number] ####Registered Nurse Step Down: NED PAK ([id number])[facility] ([facility])[address] [place] [address] Protein (U) [Mass/Vol] 70 mg/dL Abnormal Negative [facility] Comment on above: Performed By: #### L [id number] ####Registered Nurse Step Down: NED PAK ([id number])[facility] ([facility])[address] [place] [address] RBC (#/HPF) IN URINE SEDIMENT 3-5 Abnormal 0-2 [facility] Comment on above: Performed By: #### L [id number] ####Registered Nurse Step Down: NED PAK ([id number])[facility] ([facility])[address] [place] [address] Specific gravity (U) [Rel density] 1.017 Normal 1.005-1.03 0 [facility] Comment on above: Performed By: #### L [id number] ####Registered Nurse Step Down: NED PAK ([id number])[facility] ([facility])[address] [place] [address] SQUAMOUS EPITHELIAL CELLS (#/HPF) IN URINE SEDIMENT 0-2 Normal 3-5 [facility] Comment on above: Performed By: #### L [id number] ####Registered Nurse Step Down: NED PAK ([id number])[facility] ([facility])[address] [place] [address] UROBILINOGEN (MG/DL) IN URINE Normal Normal Normal (0-1) [facility] Comment on above: Performed By: #### L [id number] ####Registered Nurse Step Down: NED PAK ([id number])[facility] ([facility])[address] [place] [address] WBC (LEUKOCYTE) (#/HPF) IN URINE SEDIMENT 26-50 Abnormal 0-5 [facility] Comment on above: Performed By: #### L [id number] ####Registered Nurse Step Down: NED PAK ([id number])[facility])[address] [place] [address] COMPREHENSIVE METABOLIC PANE [place] 01-23-2023 Albumin [Mass/Vol] 3.4 g/dL Low 3.5-5.0 [facility] Comment on above: Performed By: #### Tameka DUNNE, [id number] ####Registered Nurse Step Down: NED PAK ([id number])[facility] ([facility])[address] [place] [address] [place] ALP [Catalytic activity/Vol] 57 U/L Normal 38-126 [facility] Comment on above: Performed By: #### Tameka AB17, [id number] ####Registered Nurse Step Down: NED PAK ([id number])[facility])[address] [place] [address] [place] ALT [Catalytic activity/Vol] 19 U/L Normal 0-34 [facility] Comment on above: Performed By: #### Tameka AB17, [id number] ####Registered Nurse Step Down: NED PAK ([id number])[facility] ([facility])[address] [place] [address] Anion gap [Moles/Vol] 16 mmol/L High 3-13 [facility] Comment on above: Performed By: #### Tameka HEREDIA17, [id number] ####Registered Nurse Step Down: NED PAK ([id number])[facility] ([facility])[address] [place] [address] AST [Catalytic activity/Vol] 40 U/L Normal 15-46 [facility] Comment on above: Performed By: #### Tameka DUNNE, [id number] ####Registered Nurse Step Down: NED PAK ([id number])[facility] ([facility])[address] [place] [address] Bilirubin [Mass/Vol] 0.7 mg/dL Normal 0.2-1.3 [facility] Comment on above: Performed By: #### Tameka HEREDIA17, [id number] ####Registered Nurse Step Down: NED PAK ([id number])[facility] ([facility])[address] [place] [address] Calcium [Mass/Vol] 9.8 mg/dL Normal 8.4-10.4 [facility] Comment on above: Performed By: #### Tameka DUNNE, [id number] ####Registered Nurse Step Down: NED PAK ([id number])[facility] ([facility])[address] [place] [address] [place] Chloride [Moles/Vol] 107 mmol/L Normal 98-107 [facility] Comment on above: Performed By: #### Tameka AB17, [id number] ####Registered Nurse Step Down: NED PAK ([id number])[facility] ([facility])[address] [place] [address] CO2 [Moles/Vol] 16 mmol/L Low 22-30 [facility] Comment on above: Performed By: #### Tameka AB17, [id number] ####Registered Nurse Step Down: NED [id number])[facility])[address] [place] [address] Creatinine [Mass/Vol] 1.47 mg/dL High 0.52-1.04 [facility] Comment on above: Performed By: #### Tameka HEREDIA17, [id number] ####Registered Nurse Step Down: NED PAK ([id number])[facility])[address] [place] [address] [place] GLOMERULAR FILTRATION RATE ML/MIN/1.73 SQ M.PREDICTED 36.4 mL/min/1.73m*2 Low >60.0 [facility] Comment on above: Result Comment: Calc ulation based on the Chronic Kidney Disease Epidemiology Collaboration (CKD-EPI) equation refit without adjustment for raceORDER COMMENTS:Slightly Hemolyzed. Interpret ALKALINE PHOSPHATASE, AST, and POTASSIUM with caution. Performed By: #### Tameka HEREDIA17, [id number] ####Registered Nurse Step Down: NED PAK ([id number])[facility])[address] [place] [address] Glucose [Mass/Vol] 123 mg/dL High 70-100 [facility] Comment on above: Performed By: #### Tameka DUNNE, [id number] ####Registered Nurse Step Down: NED PAK ([id number])[facility])[address] [place] [address] [place] Potassium [Moles/Vol] 4.3 mmol/L Normal 3.5-5.1 [facility] Comment on above: Performed By: #### Tameka HEREDIA17, [id number] ####Registered Nurse Step Down: NED PAK ([id number])[facility])[address] [place] [address] [place] Protein [Mass/Vol] 6.9 g/dL Normal 6.3-8.2 [facility] Comment on above: Performed By: #### L AB17, [id number] ####Registered Nurse Step Down: NED PAK ([id number])[facility])[address] [place] [address] [place] Sodium [Moles/Vol] 139 mmol/L Normal 135-145 [facility] Comment on above: Performed By: #### L 17, [id number] ####Registered Nurse Step Down: NED PAK ([id number])[facility])[address] [place] [address] Urea nitrogen [Mass/Vol] 34 mg/dL High 7-17 [facility] Comment on above: Performed By: #### L 17, [id number] ####Registered Nurse Step Down: NED PAK ([id number])[facility])[address] [place] [address] CT CERVICAL SPINE WO IV CONT RASTon 01-23-2023 CT CERVICAL SPINE WO IV CONTRAST Normal [facility] CT CHEST ABDOMEN PELVIS W CO NTRASTon 01-23-2023 CT CHEST ABDOMEN PELVIS W CONTRAST Normal [facility] CT HEAD WO IV CONTRASTon CT HEAD WO IV CONTRAST Normal [facility] Consulton 01-23-2023 Consult Normal [facility] Consult Normal [facility] FREE T4on 01-23-2023 Free T4 [Mass/Vol] 1.66 ng/dL Normal 0.78-2.19 [facility] Comment on above: Performed By: #### L [id number], [id number] ####Registered Nurse Step Down: NED PAK ([id number])[address] IDNon 01-23-2023 IDN Normal [facility] LACTIC ACID WITH REFLEXon Lactate [Moles/Vol] 4.1 mmol/L Critically high 0.7-2.0 [facility] Comment on above: Performed By: #### L [id number] ####Registered Nurse Step Down: NED PAK ([id number])[facility])[address] [place] [address] Lactate [Moles/Vol] 8.8 mmol/L Critically high 0.7-2.0 [facility] Comment on above: Performed By: #### L [id number] ####Registered Nurse Step Down: NED [id number])[facility] [place] [address] Lactate [Moles/Vol] 2.2 mmol/L High 0.7-2.0 [facility] Comment on above: Performed By: #### L [id number] ####Registered Nurse Step Down: NED PAK ([id number])[facility] ([facility])[address] [place] [address] Lactate [Moles/Vol] 1.4 mmol/L Normal 0.7-2.0 [facility] Comment on above: Performed By: #### L [id number] ####Registered Nurse Step Down: NED PAK ([id number])[facility])[address] [place] [address] Nursing Noteon 01-23-2023 Nursing Note Normal [facility] PROCALCITONIN TESTon 023 PROCALCITONIN 7.04 ng/mL High 0.00-0.09 [facility] Comment on above: Result Comment: ORDE R COMMENTS:PCT <0.50 = Low risk of severe sepsis and/or septic shock.PCT >2.00 = High risk of severe sepsis and/or septic shock. Performed By: #### L [id number] ####Registered Nurse Step Down: NED PAK ([id number])[facility] ([facility])[address] [place] [address] Progress Noteon 01-23-2023 Progress Note PHYSICAL THERAPY [facility] Name/MRN: Zoila Webster ([id number]) Date: 01/23/2023 Pt transferred from to T2 ICU. Pt will require a reassessment. Will re-attempt as able. Buck Boothe, PT Normal [facility] Progress Note Normal [facility] Progress Note Pt temp 103.5, tachy cardic and tachypnea, minimally responsive, Michael Killian notified and transfer orders placed for ICU, pt made ready to transfer and RN called report to t2 Normal [facility] Progress Note Normal [facility] STREP PNEUMONIAE ANTIBODY SE ROTYPESon 01-23-2023 PNEUMO SEROTYPE INTERPRETATION See Note Normal [facility] Comment on above: Result Comment: INTE [...] pneumococcal IgGmeasurements. Clin Vaccine Immunol. 2014;21(7):982-988.2. Kassie BROWN, Richie OLSEN. Use and clinical interpretation ofpneumococcal antibody measurements in the evaluation of humoralimmune function. Clin Vaccine Immunol. 2015;22(2):148-152.This test was developed and its performance characteristicsdetermined by [employer]. It has not been cleared orapproved by the U.S. Food and Drug Administration. This test wasperformed in a CLIA-certified laboratory and is intended forclinical purposes.Performed By: [facility] [address] [place] [address] Director: Ester Ramsey MD, PhDCLIA Number: [id number] Performed By: #### L [id number] ####[facility] ([facility])[address] PNEUMO TYPE 1 IGG 0.31 ug/mL Normal [facility] Comment on above: Performed By: #### L [id number] ####[facility] ([facility])[address] PNEUMO TYPE 12F IGG 0.18 ug/mL Normal [facility] Comment on above: Performed By: #### L [id number] ####[facility] ([facility])[address] PNEUMO TYPE 14 IGG 0.10 ug/mL Normal [facility] Comment on above: Performed By: #### L [id number] ####[facility] ([facility])[address] PNEUMO TYPE 18C IGG <0.05 Normal [facility] Comment on above: Performed By: #### L [id number] ####[facility] ([facility])[address] PNEUMO TYPE 19F IGG 0.19 ug/mL Normal [facility] Comment on above: Performed By: #### L [id number] ####[facility] ([facility])[address] PNEUMO TYPE 23F IGG 0.19 ug/mL Normal [facility] [facility] Comment on above: Performed By: #### L [id number] ####[facility] ([facility])[address] PNEUMO TYPE 3 IGG 0.61 ug/mL Normal [facility] Comment on above: Performed By: #### L AB778 ####[facility] ([facility])[address] PNEUMO TYPE 4 IGG 0.13 ug/mL Normal [facility] Comment on above: Performed By: #### L [id number] ####[facility] ([facility])[address] PNEUMO TYPE 5 IGG 0.96 ug/mL Normal [facility] Comment on above: Performed By: #### L AB778 ####[facility] ([facility])[address] PNEUMO TYPE 6B IGG 0.13 ug/mL Normal [facility] Comment on above: Performed By: #### L AB778 ####[facility] ([facility])[address] PNEUMO TYPE 7F IGG 0.36 ug/mL Normal [facility] Comment on above: Performed By: #### L AB778 ####[facility] ([facility])[address] PNEUMO TYPE 8 IGG 0.07 ug/mL Normal [facility] Comment on above: Performed By: #### L AB778 ####[facility] ([facility])[address] PNEUMO TYPE 9N IGG 0.47 ug/mL Normal [facility] Comment on above: Performed By: #### L AB778 ####[facility] ([facility])[address] PNEUMO TYPE 9V IGG 0.08 ug/mL Normal [facility] Comment on above: Performed By: #### L AB778 ####[facility] ([facility])[address] [place] [address] [place] THYROID STIMULATING HORMONEo n 01-23-2023 THYROID STIMULATING HORMONE 0.503 uIU/mL Normal 0.465-4.68 0 [facility] Comment on above: Performed By: #### L AB62, [id number], LAB15, [id number] ####Registered Nurse Step Down: NED PAK ([id number])[facility])[address] [place] [address] [place] TROPONIN Ion 01-23-2023 Troponin I.cardiac [Mass/Vol] 0.067 ng/mL High <0.034 [facility] [employer] [facility] Comment on above: Result Comment: ORDE R COMMENTS:Patients with high levels of Biotin oral intake (ie >5 mg/day) may have falsely decreased Troponin levels. Performed By: #### L AB15, [id number] ####Registered Nurse Step Down: NED PAK ([id number])[facility])[address] [place] [address] [place] Troponin I.cardiac [Mass/Vol] 0.054 ng/mL High <0.034 [facility] [employer] [facility] Comment on above: Result Comment: ORDE R COMMENTS:Patients with high levels of Biotin oral intake (ie >5 mg/day) may have falsely decreased Troponin levels. Performed By: #### L [id number] ####Registered Nurse Step Down: NED PAK ([id number])[facility])[address] [place] [address] [place] Troponin I.cardiac [Mass/Vol] 0.086 ng/mL High <0.034 [facility] [employer] [facility] Comment on above: Result Comment: ORDE R COMMENTS:Patients with high levels of Biotin oral intake (ie >5 mg/day) may have falsely decreased Troponin levels. Performed By: #### L AB62, [id number], LAB15, [id number] ####Registered Nurse Step Down: NED PAK ([id number])[facility])[address] [place] [address] [place] TROPONIN, WITH SERIAL REFLEX on 01-23-2023 Troponin I.cardiac [Mass/Vol] 0.095 ng/mL High <0.034 [facility] [employer] [facility] Comment on above: Result Comment: ORDE R COMMENTS:Patients with high levels of Biotin oral intake (ie >5 mg/day) may have falsely decreased Troponin levels. Performed By: #### L AB17, [id number] ####Registered Nurse Step Down: NED PAK ([id number])[facility] ([facility])[address] [place] [address] Performed By: #### L AB127, [id number] ####Registered Nurse Step Down: NED PAK ([id number])[facility])[address] [place] [address] Troponin I.cardiac [Mass/Vol] 0.064 ng/mL High <0.034 [facility] Comment on above: Result Comment: SANDRA R COMMENTS:Patients with high levels of Biotin oral intake (ie >5 mg/day) may have falsely decreased Troponin levels. Performed By: #### L AB15, [id number] ####Registered Nurse Step Down: NED PAK ([id number])[facility])[address] [place] [address] URINE CULTUREon 01-23-2023 Bacteria identified Cx Nom (U) Normal [facility] Comment on above: Performed By: #### L AB239 ####Registered Nurse Step Down: NED PAK ([id number])[facility])[address] [place] [address] XR CHEST 1 VIEWon 01-23-2023 XR CHEST 1 VIEW Normal [facility] CARECOORDon 01-22-2023 CARECOORD Normal [facility] CAR[place]OORD Normal [facility] Progress Noteon 01-22-2023 Progress Note Normal [facility] Progress Note Normal [facility] Progress Note Normal [facility] CARECOORDon 01-21-2023 CARECOORD Normal [facility] IDNon 01-21-2023 IDN Normal [facility] Progress Noteon 01-21-2023 Progress Note Normal [facility] Progress Note Normal [facility] Progress Note Normal [facility] SARS-COV-2 ANTIGENon 023 SARS-COV-2 ANTIGEN Normal [facility] Comment on above: Performed By: #### L [id number] ####Registered Nurse Step Down: NED PAK ([id number])[facility] ([place] [id number] [place] CARECOORDon 01-20-2023 CARECOORD Normal [facility] IDNon 01-20-2023 IDN Normal [facility] Progress Noteon 01-20-2023 Progress Note Normal [facility] CARECOORDon 01-19-2023 CARECOORD Normal [facility] IDNon 01-19-2023 IDN Normal [facility] Nursing Noteon 01-19-2023 Nursing Note Normal [facility] Progress Noteon 01-19-2023 Progress Note Normal [facility] CARECOORDon 01-18-2023 CARECOORD Normal [facility] IDNon 01-18-2023 IDN Normal [facility] Progress Noteon 01-18-2023 Progress Note Normal [facility] Progress Note [facility] IDNon 01-17-2023 IDN Normal [facility] Nursing Noteon 01-17-2023 Nursing Note 01/17/23 @ 0640 Pt requested pain medication d/t c/o pain to posterior head. Pt was medicated with scheduled 0800 Tylenol dose early after refused 0000 Tylenol dose. Normal [facility] Progress Noteon 01-17-2023 Progress Note [facility] Progress Note [facility] IDNon 01-16-2023 IDN Normal [facility] Nursing Noteon 01-16-2023 Nursing Note Normal [facility] Nursing Note 01/16/23 @ 0110 Pt medicated with Haldol 2 mg IV x 1 for agitation and restlessness. 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 Normal [facility] Nursing Note Normal [facility] Progress Noteon 01-16-2023 Progress Note [facility] CARECOORDon 01-15-2023 CARECOORD Normal [facility] EMERGENCY REPORTon EMERGENCY REPORT [facility] EMERGENCY ROOM REPORT NAME ACCOUNT SEX AGE ADMIT DISCHARGE PT MED. RECORD# NUMBER DATE DATE TYPE ELEANOR [id number] F [id number] 12/08/22 12/08/22 3 ZOILA [id number] ROOM: ER DATE OF : 1945 DICTATING [...] Bipin Wild DO 01/06/23 23:49 JOB #: [id number] Transcribed By: am 01/07/23 11:19 Page 1 of 2 ZOILA WEBSTER Emergency Room Report ZOILA WEBSTER : 1945 Electronically signed by: E-SIGN BIPINCHASTITY WILD DO 01/15/23 19:29 Page 2 of 2 ZOILA WEBSTER Emergency Room Report Normal [facility] IDNon 01-15-2023 IDN Normal [facility] Progress Noteon 01-15-2023 Progress Note Normal [facility] Progress Note Normal [facility] Progress Note Normal [facility] CARECOORDon 01-14-2023 CARECOORD Normal [facility] Progress Noteon 01-14-2023 Progress Note Normal [facility] Progress Note Normal [facility] Progress Note Normal [facility] Progress Note Normal [facility] CARECOORDon 01-13-2023 CARECOORD Normal [facility] ECG 12-LEADon 01-13-2023 ECG 12-LEAD IMPRESSION: Sinus rhythm Multiple ventricular premature complexes Left ventricular hypertrophy Electronically Signed On 01-13-2023 10:00:00 EDT by Gayathri Velez Normal [facility] Progress Noteon 01-13-2023 Progress [...] include remain HDS Normal [facility] Nursing Noteon 01-12-2023 Nursing Note Pt only consumed one cup of ice cream, refused all meds this shift , continued to refuse meals despite consistent attempts . Family intermittently at bedside throughout shift, remains with rn wound at bedside. Will monitor. Normal [facility] Nursing Note Normal [facility] Progress Noteon 01-12-2023 Progress Note Normal [facility] Progress Note Normal [facility] Progress Note Regarding duarte cath eter. Message sent to urology of possibility of doing void trial while still inpatient. They stated that would be acceptable if we complete early tomorrow morning . Recommend active void trial to increase chance of success. Normal [facility] Progress Note Normal [facility] Progress Note Normal [facility] Progress Note Normal [facility] CARECOORDon 01-11-2023 CARECOORD Normal [facility] IDNon 01-11-2023 IDN The patient is Moder ately Stable - Low risk of patient condition declining or worsening The patient's goals for the shift include get some sleep The clinical goals for the shift include decrease/manage agitation Normal [facility] Progress Noteon 01-11-2023 Progress Note Normal [facility] Progress Note Normal [facility] Progress Note Normal [facility] Progress Note Normal [facility] AMMONIAon 01-10-2023 Ammonia (P) [Mass/Vol] ug/dL Low 9-30 [facility] Comment on above: Performed By: #### L AB47 ####Registered Nurse Step Down: NED PAK ([id number])[address] HEPATIC FUNCTION PANELon Albumin [Mass/Vol] 3.6 g/dL Normal 3.5-5.0 [facility] Comment on above: Performed By: #### L AB20 ####Registered Nurse Step Down: NED PAK ([id number])[address] ALP [Catalytic activity/Vol] 135 U/L High 38-126 [facility] Comment on above: Performed By: #### L AB20 ####Registered Nurse Step Down: NED PAK ([id number])[address] ALT [Catalytic activity/Vol] 18 U/L Normal 0-34 [facility] Comment on above: Performed By: #### L AB20 ####Registered Nurse Step Down: NED PAK ([id number])[address] [place] [address] [place] AST [Catalytic activity/Vol] 25 U/L Normal 15-46 [facility] Comment on above: Performed By: #### L AB20 ####Registered Nurse Step Down: NED PAK ([id number])[facility])[address] [place] [address] Bilirubin [Mass/Vol] 0.3 mg/dL Normal 0.2-1.3 [facility] Comment on above: Performed By: #### L AB20 ####Registered Nurse Step Down: NED PAK ([id number])[facility])[address] [place] [address] Bilirubin.indirect [Mass/Vol] 0.0 mg/dL Normal 0.0-0.3 [facility] Comment on above: Performed By: #### L AB20 ####Registered Nurse Step Down: NED PAK ([id number])[facility])[address] [place] [address] Protein [Mass/Vol] 7.1 g/dL Normal 6.3-8.2 [facility] Comment on above: Performed By: #### L AB20 ####Registered Nurse Step Down: NED PAK ([id number])[facility])[address] [place] [address] Progress Noteon 01-10-2023 Progress Note Normal [facility] Progress Noteon 01-09-2023 Progress Note Normal [facility] Progress Note Normal [facility] BILIRUBIN, DIRECTon 01-09-20 23 Bilirubin.indirect [Mass/Vol] 0.0 mg/dL Normal 0.0-0.3 [facility] Comment on above: Performed By: #### L AB52, LAB17 ####Registered Nurse Step Down: NED PAK ([id number])[facility])[address] [place] [address] CARECOORDon 01-08-2023 CARECOORD Normal [facility] CBC (HEMOGRAM)on 01-08-2023 Erythrocyte distribution width (RBC) [Ratio] 14.6 % High 11.5-14.5 [facility] Comment on above: Performed By: #### L AB294 ####Registered Nurse Step Down: NED PAK ([id number])[facility])[address] [place] [address] ERYTHROCYTE MEAN CORPUSCULAR HEMOGLOBIN CONCENTRATION (G/DL) BY AUTOMATED 33.7 % Normal 32.0-36.0 [facility] Comment on above: Performed By: #### L [id number] ####Registered Nurse Step Down: NED PAK ([id number])[facility])[address] [place] [address] Hematocrit (Bld) [Volume fraction] 33.1 % Low 35.0-47.0 [facility] Comment on above: Performed By: #### L AB294 ####Registered Nurse Step Down: NED PAK ([id number])[address] Hemoglobin (Bld) [Mass/Vol] 11.1 g/dL Low 11.7-16.0 [facility] Comment on above: Performed By: #### L AB294 ####Registered Nurse Step Down: NED PAK ([id number])[facility])[address] [place] [address] MCH (RBC) [Entitic mass] 29.8 pg Normal 26.0-34.0 [facility] Comment on above: Performed By: #### L AB294 ####Registered Nurse Step Down: NED PAK ([id number])[facility])[address] [place] [address] MCV (RBC) [Entitic vol] 88.3 fL Normal 80.0-98.0 [facility] Comment on above: Performed By: #### L AB294 ####Registered Nurse Step Down: NED PAK ([id number])[facility])[address] [place] [address] Platelet mean volume (Bld) [Entitic vol] 6.3 fL Low 7.4-12.4 [facility] Comment on above: Performed By: #### L AB294 ####Registered Nurse Step Down: NED PAK ([id number])[facility] ([facility])[address] [place] [address] PLATELETS (10*3/UL) IN BLOOD AUTOMATED COUNT 462 10*3/uL High 140-440 [facility] Comment on above: Performed By: #### L AB294 ####Registered Nurse Step Down: NED PAK ([id number])[facility] ([facility])[address] [place] [address] RBC (Bld) [#/Vol] 3.74 10*6/uL Low 3.8-5.20 [facility] Comment on above: Performed By: #### L AB294 ####Registered Nurse Step Down: NED PAK ([id number])[facility] ([facility])[address] [place] [address] WBC (Bld) [#/Vol] 7.0 10*3/uL Normal 3.6-10.7 [facility] Comment on above: Performed By: #### L AB294 ####Registered Nurse Step Down: NED PAK ([id number])[facility] ([facility])[address] [place] [address] COMPREHENSIVE METABOLIC PANE [place] 01-08-2023 Albumin [Mass/Vol] 3.9 g/dL Normal 3.5-5.0 [facility] Comment on above: Performed By: #### [place] LAB17 ####Registered Nurse Step Down: NED PAK ([id number])[facility] ([facility])[address] [place] [address] ALP [Catalytic activity/Vol] 139 U/L High 38-126 [facility] Comment on above: Performed By: #### [place], LAB17 ####Registered Nurse Step Down: NED PAK ([id number])[facility])[address] [place] [address] ALT [Catalytic activity/Vol] 20 U/L Normal 0-34 [facility] Comment on above: Performed By: #### L AB52, LAB17 ####Registered Nurse Step Down: NED PAK ([id number])[facility] [place] [address] Anion gap [Moles/Vol] 9 mmol/L Normal 3-13 [facility] Comment on above: Performed By: #### L ABSerafin, LAB17 ####Registered Nurse Step Down: NED PAK ([id number])[facility] [place] [address] AST [Catalytic activity/Vol] 31 U/L Normal 15-46 [facility] Comment on above: Performed By: #### [place], LAB17 ####Registered Nurse Step Down: NED PAK ([id number])[facility] ([facility])[address] [place] [address] Bilirubin [Mass/Vol] 0.3 mg/dL Normal 0.2-1.3 [facility] Comment on above: Performed By: #### [place], LAB17 ####Registered Nurse Step Down: NED PAK ([id number])[facility] ([facility] [place] [address] Calcium [Mass/Vol] 10.8 mg/dL High 8.4-10.4 [facility] Comment on above: Performed By: #### L ABSerafin, LAB17 ####Registered Nurse Step Down: NED PAK ([id number])[facility] ([facility] [place] [address] [place] Chloride [Moles/Vol] 105 mmol/L Normal 98-107 [facility] Comment on above: Performed By: #### L ABSerafin, LAB17 ####Registered Nurse Step Down: NED PAK ([id number])[facility] ([facility] [place] [address] [place] CO2 [Moles/Vol] 24 mmol/L Normal 22-30 [facility] Comment on above: Performed By: #### L AB52, LAB17 ####Registered Nurse Step Down: NED PAK ([id number])[facility] ([facility])[address] [place] [address] [place] Creatinine [Mass/Vol] 0.66 mg/dL Normal 0.52-1.04 [facility] Comment on above: Performed By: #### [place], LAB17 ####Registered Nurse Step Down: NED PAK ([id number])[facility])[address] [place] [address] GLOMERULAR FILTRATION RATE ML/MIN/1.73 SQ M.PREDICTED 89.9 mL/min/1.73m*2 Normal >60.0 [facility] Comment on above: Result Comment: Calc ulation based on the Chronic Kidney Disease Epidemiology Collaboration (CKD-EPI) equation refit without adjustment for race Performed By: #### [place], LAB17 ####Registered Nurse Step Down: NED PAK ([id number])[facility])[address] [place] [address] Glucose [Mass/Vol] 122 mg/dL High 70-100 [facility] Comment on above: Performed By: #### [place], LAB17 ####Registered Nurse Step Down: NED PAK ([id number])[facility] ([facility])[address] [place] [address] Potassium [Moles/Vol] 4.0 mmol/L Normal 3.5-5.1 [facility] Comment on above: Performed By: #### [place], LAB17 ####Registered Nurse Step Down: NED PAK ([id number])[facility])[address] [place] [address] Protein [Mass/Vol] 7.9 g/dL Normal 6.3-8.2 [facility] Comment on above: Performed By: #### [place], LAB17 ####Registered Nurse Step Down: NED PAK ([id number])[facility])[address] [place] [address] [place] Sodium [Moles/Vol] 138 mmol/L Normal 135-145 [facility] Comment on above: Performed By: #### [place], LAB17 ####Registered Nurse Step Down: NED PAK ([id number])[facility])[address] [place] [address] Urea nitrogen [Mass/Vol] 18 mg/dL High 7-17 [facility] Comment on above: Performed By: #### L AB52, LAB17 ####Registered Nurse Step Down: NED PAK ([id number])[facility])[address] [place] [address] Consulton 01-08-2023 Consult Normal [facility] Nursing Noteon 01-08-2023 Nursing Note Patient remove Duarte catheter with legs as verbalized by rn wound.Upon assessment same was out on the bed with bulb inflated.Patient was counseled and was informed that another catheter have to be placed, which she agreed. Normal [facility] Progress Noteon 01-08-2023 Progress Note [facility] Progress Note Normal [facility] Progress Note Normal [facility] CARECOORDon 01-07-2023 CARECOORD Normal [facility] CBC (HEMOGRAM)on 01-07-2023 Erythrocyte distribution width (RBC) [Ratio] 14.6 % High 11.5-14.5 [facility] Comment on above: Performed By: #### L AB294 ####Registered Nurse Step Down: NED PAK ([id number])[facility])[address] [place] [address] ERYTHROCYTE MEAN CORPUSCULAR HEMOGLOBIN CONCENTRATION (G/DL) BY AUTOMATED 32.9 % Normal 32.0-36.0 [facility] Comment on above: Performed By: #### L AB294 ####Registered Nurse Step Down: NED PAK ([id number])[facility])[address] [place] [address] Hematocrit (Bld) [Volume fraction] 33.3 % Low 35.0-47.0 [facility] Comment on above: Performed By: #### L AB294 ####Registered Nurse Step Down: NED PAK ([id number])[facility])[address] [place] [address] Hemoglobin (Bld) [Mass/Vol] 11.0 g/dL Low 11.7-16.0 [facility] Comment on above: Performed By: #### L AB294 ####Registered Nurse Step Down: NED PAK ([id number])[facility])[address] [place] [address] MCH (RBC) [Entitic mass] 29.4 pg Normal 26.0-34.0 [facility] Comment on above: Performed By: #### L AB294 ####Registered Nurse Step Down: NED PAK ([id number])[facility])[address] [place] [address] MCV (RBC) [Entitic vol] 89.3 fL Normal 80.0-98.0 [facility] Comment on above: Performed By: #### L AB294 ####Registered Nurse Step Down: NED PAK ([id number])[facility])[address] [place] [address] Platelet mean volume (Bld) [Entitic vol] 6.5 fL Low 7.4-12.4 [facility] Comment on above: Performed By: #### L AB294 ####Registered Nurse Step Down: NED PAK ([id number])[facility])[address] [place] [address] PLATELETS (10*3/UL) IN BLOOD AUTOMATED COUNT 471 10*3/uL High 140-440 [facility] Comment on above: Performed By: #### L AB294 ####Registered Nurse Step Down: NED PAK ([id number])[facility])[address] [place] [address] RBC (Bld) [#/Vol] 3.73 10*6/uL Low 3.8-5.20 [facility] Comment on above: Performed By: #### L AB294 ####Registered Nurse Step Down: NED PAK ([id number])[facility])[address] [place] [address] WBC (Bld) [#/Vol] 6.4 10*3/uL Normal 3.6-10.7 [facility] Comment on above: Performed By: #### L AB294 ####Registered Nurse Step Down: NED PAK ([id number])[facility] ([facility])[address] [place] [address] COMPREHENSIVE METABOLIC PANE [place] 01-07-2023 Albumin [Mass/Vol] 3.9 g/dL Normal 3.5-5.0 [facility] [facility] Comment on above: Performed By: #### L [id number] ####Registered Nurse Step Down: NED PAK ([id number])[facility] ([facility])[address] [place] [address] ALP [Catalytic activity/Vol] 138 U/L High 38-126 [facility] Comment on above: Performed By: #### L [id number] ####Registered Nurse Step Down: NED PAK ([id number])[facility] ([facility])[address] [place] [address] ALT [Catalytic activity/Vol] 19 U/L Normal 0-34 [facility] Comment on above: Performed By: #### L [id number] ####Registered Nurse Step Down: NED PAK ([id number])[facility] ([facility])[address] [place] [address] Anion gap [Moles/Vol] 8 mmol/L Normal 3-13 [facility] Comment on above: Performed By: #### L [id number] ####Registered Nurse Step Down: NED PAK ([id number])[facility] ([facility])[address] [place] [address] AST [Catalytic activity/Vol] 50 U/L High 15-46 [facility] Comment on above: Performed By: #### L [id number] ####Registered Nurse Step Down: NED PAK ([id number])[facility] ([facility])[address] [place] [address] Bilirubin [Mass/Vol] 0.6 mg/dL Normal 0.2-1.3 [facility] Comment on above: Performed By: #### L [id number] ####Registered Nurse Step Down: NED PAK ([id number])[facility] ([facility])[address] [place] [address] [place] Calcium [Mass/Vol] 10.7 mg/dL High 8.4-10.4 [facility] Comment on above: Performed By: #### L [id number] ####Registered Nurse Step Down: NED PAK ([id number])[facility] ([facility])[address] [place] [address] Chloride [Moles/Vol] 105 mmol/L Normal 98-107 [facility] Comment on above: Performed By: #### L [id number] ####Registered Nurse Step Down: NED PAK ([id number])[facility] [place] [address] CO2 [Moles/Vol] 24 mmol/L Normal 22-30 [facility] Comment on above: Performed By: #### L [id number] ####Registered Nurse Step Down: NED PAK ([id number])[facility] ([facility])[address] [place] [address] Creatinine [Mass/Vol] 0.55 mg/dL Normal 0.52-1.04 [facility] Comment on above: Performed By: #### L [id number] ####Registered Nurse Step Down: NED PAK ([id number])[facility] ([facility])[address] [place] [address] GLOMERULAR FILTRATION RATE ML/MIN/1.73 SQ M.PREDICTED >90.0 Normal >60.0 [facility] Comment on above: Result Comment: Calc ulation based on the Chronic Kidney Disease Epidemiology Collaboration (CKD-EPI) equation refit without adjustment for raceORDER COMMENTS:Slightly Hemolyzed. Interpret K+, ALKP, AST with caution. Performed By: #### L [id number] ####Registered Nurse Step Down: NED PAK ([id number])[facility] ([facility])[address] [place] [address] [place] Glucose [Mass/Vol] 116 mg/dL High 70-100 [facility] Comment on above: Performed By: #### L [id number] ####Registered Nurse Step Down: NED PAK ([id number])[facility] ([facility])[address] [place] [address] [place] Potassium [Moles/Vol] 4.3 mmol/L Normal 3.5-5.1 [facility] Comment on above: Performed By: #### L [id number] ####Registered Nurse Step Down: NED PAK ([id number])[facility])[address] [place] [address] Protein [Mass/Vol] 8.0 g/dL Normal 6.3-8.2 [facility] Comment on above: Performed By: #### L [id number] ####Registered Nurse Step Down: NED PAK ([id number])[facility] ([facility])[address] [place] [address] Sodium [Moles/Vol] 137 mmol/L Normal 135-145 [facility] Comment on above: Performed By: #### L [id number] ####Registered Nurse Step Down: NED PAK ([id number])[facility] ([facility])[address] [place] [address] Urea nitrogen [Mass/Vol] 14 mg/dL Normal 7-17 [facility] Comment on above: Performed By: #### L [id number] ####Registered Nurse Step Down: NED PAK ([id number])[facility])[address] [place] [address] Nursing Noteon 01-07-2023 Nursing Note Normal [facility] Nursing Note Normal [facility] Nursing Note Normal [facility] Nursing Note Normal [facility] Nursing Note Patient very uncoope rative during morning assessment and medication administration. Patient spit pill (lyrica) out at this RN. Patient also attempted to grab RN. Attempted to re-orient patient. Normal [facility] Nursing Note Patient took senokot then decides to spit out same.Pt counseled.Care on going... Normal [facility] Progress Noteon 01-07-2023 Progress Note [facility] Progress Note Normal [facility] Progress Note Normal [facility] Progress Note Normal [facility] CARECOORDon 01-06-2023 CARECOORD Normal [facility] Progress Noteon 01-06-2023 Progress Note Normal [facility] Progress Note Normal [facility] Progress Note Normal [facility] Progress Note Normal [facility] US PELVISon 01-06-2023 US PELVIS Normal [facility] CARECOORDon 01-05-2023 CARECOORD Normal [facility] Nursing Noteon 01-05-2023 Nursing Note Pt family expressed concerned over c-collar/ They would like to speak with ortho. Dr. Fallon notified. Normal [facility] Progress Noteon 01-05-2023 Progress Note Normal [facility] Progress Note PHYSICAL THERAPY [facility] Name/MRN: Zoila Webster ([id number]) Date: 01/05/2023 PT treatment attempted at 1315, pt OOR at this time for ultrasound. Will attempt treatment on later date. Hari Wagner SPT Normal [facility] Progress Note Normal [facility] Progress Note Normal [facility] Progress Note [facility] US RETROPERITONEUM LIMITEDon 01-05-2023 US RETROPERITONEUM LIMITED Normal [facility] CARECOORDon 01-04-2023 CARECOORD Normal [facility] CARECOORD Normal [facility] Consulton 01-04-2023 Consult Normal [facility] Consult Normal [facility] ECG 12-LEADon 01-04-2023 ECG 12-LEAD IMPRESSION: Sinus rhythm Left ventricular hypertrophy Anterior Q waves, possibly due to LVH Borderline T abnormalities, inferior leads Electronically Signed On 01-04-2023 10:15:41 EDT by Vini Rodriguez [facility] IDNon 01-04-2023 IDN Normal [facility] IDN Normal [facility] Nursing Noteon 01-04-2023 Nursing Note Normal [facility] Nursing Note Patient was bladder scanned for 450 ml. Patient assisted to commode by rn wound and myself. Patient voided a small amount. Post void residual was 264 Kathryn with trauma notified Normal [facility] Nursing Note Patients cam e to desk asking about options other than c collar. I explained that trauma will be reaching out to ortho to see if there are alternatives to c collar. Message sent to Kathryn with trauma Normal [facility] Progress Noteon 01-04-2023 Progress Note Normal [facility] Normal [facility] Progress Note Normal [facility] Progress Note Normal [facility] URINE CULTUREon 01-04-2023 Bacteria identified Cx Nom (U) Normal [facility] Comment on above: Performed By: #### L [id number] ####Registered Nurse Step Down: NED PAK ([id number])[facility])[address] [place] [address] [place] IDNon 01-03-2023 IDN Normal [facility] Nursing Noteon 01-03-2023 Nursing Note Pt c/o chest pain. B P 159/92, HR 107. Provider notified. Prn labetalol given and EKG ordered. Normal [facility] Nursing Note Pt Bladder Scan 750. Pt was able to void 200ml, still retaining 575mL. Provider messaged, one time straight cath ordered. Pt tolerated well, 550 output. Normal [facility] Progress Noteon 01-03-2023 Progress Note Normal [facility] CBC (HEMOGRAM)on 01-02-2023 Erythrocyte distribution width (RBC) [Ratio] 15.7 % High 11.5-14.5 [facility] Comment on above: Performed By: #### L [id number] ####Registered Nurse Step Down: NED PAK ([id number])[address] ERYTHROCYTE MEAN CORPUSCULAR HEMOGLOBIN CONCENTRATION (G/DL) BY AUTOMATED 33.1 % Normal 32.0-36.0 [facility] Comment on above: Performed By: #### L [id number] ####Registered Nurse Step Down: NED PAK ([id number])[address] Hematocrit (Bld) [Volume fraction] 33.0 % Low 35.0-47.0 [facility] Comment on above: Performed By: #### L [id number] ####Registered Nurse Step Down: NED PAK ([id number])[address] Hemoglobin (Bld) [Mass/Vol] 10.9 g/dL Low 11.7-16.0 [facility] Comment on above: Performed By: #### L [id number] ####Registered Nurse Step Down: NED PAK ([id number])[facility])[address] [place] [address] MCH (RBC) [Entitic mass] 29.8 pg Normal 26.0-34.0 [facility] Comment on above: Performed By: #### L [id number] ####Registered Nurse Step Down: NED PAK ([id number])[facility])[address] [place] [address] MCV (RBC) [Entitic vol] 90.1 fL Normal 80.0-98.0 [facility] Comment on above: Performed By: #### L [id number] ####Registered Nurse Step Down: NED PAK ([id number])[facility])[address] [place] [address] Platelet mean volume (Bld) [Entitic vol] 7.0 fL Low 7.4-12.4 [facility] Comment on above: Performed By: #### L [id number] ####Registered Nurse Step Down: NED PAK ([id number])[facility])[address] [place] [address] PLATELETS (10*3/UL) IN BLOOD AUTOMATED COUNT 533 10*3/uL High 140-440 [facility] Comment on above: Performed By: #### L [id number] ####Registered Nurse Step Down: NED PAK ([id number])[facility])[address] [place] [address] RBC (Bld) [#/Vol] 3.66 10*6/uL Low 3.8-5.20 [facility] Comment on above: Performed By: #### L [id number] ####Registered Nurse Step Down: NED PAK ([id number])[facility])[address] [place] [address] WBC (Bld) [#/Vol] 9.3 10*3/uL Normal 3.6-10.7 [facility] Comment on above: Performed By: #### L [id number] ####Registered Nurse Step Down: NED PAK ([id number])[address] LACOSAMIDEon 01-02-2023 LACOSAMIDE 8.5 ug/mL Normal 1.0-10.0 [facility] Comment on above: Result Comment: INTE [...] was developed and its performance characteristicsdetermined by [employer]. It has not been cleared orapproved by the [place] Food and Drug Administration. This test wasperformed in a CLIA-certified laboratory and is intended forclinical purposes.Performed By: [employer] [place], [place] [address]Bshhhvlmyo Director: Ester Ramsey MD, PhDCLIA Number: [id number] Performed By: #### L [id number] ####[facility] ([facility])[address] [place] [id number] [place] Progress Noteon 01-02-2023 Progress Note Normal [facility] CARECOORDon 01-01-2023 CARECOORD Normal [facility] IDNon 01-01-2023 IDN Normal [facility] IDN Normal [facility] Progress Noteon 01-01-2023 Progress Note Normal [facility] Progress Note Normal [facility] Progress Note Normal [facility] Progress Note Normal [facility] BASIC METABOLIC PANELon 12-20 Anion gap [Moles/Vol] 8 mmol/L Normal 06-01 [facility] Comment on above: Performed By: #### L [id number] ####Registered Nurse Step Down: NED PAK ([id number])[facility] ([facility])[address] [place] [address] Calcium [Mass/Vol] 10.3 mg/dL Normal 8.4-10.4 [facility] Comment on above: Performed By: #### L [id number] ####Registered Nurse Step Down: NED PAK ([id number])[facility] ([facility])[address] [place] [address] [place] Chloride [Moles/Vol] 108 mmol/L High 98-107 [facility] Comment on above: Performed By: #### L [id number] ####Registered Nurse Step Down: NED PAK ([id number])[facility] ([facility])[address] [place] [address] CO2 [Moles/Vol] 22 mmol/L Normal 22-30 [facility] Comment on above: Performed By: #### L [id number] ####Registered Nurse Step Down: NED PAK ([id number])[facility] [place] [address] Creatinine [Mass/Vol] 0.65 mg/dL Normal 0.52-1.04 [facility] Comment on above: Performed By: #### L [id number] ####Registered Nurse Step Down: NED PAK ([id number])[facility] ([facility])[address] [place] [address] GLOMERULAR FILTRATION RATE ML/MIN/1.73 SQ M.PREDICTED >90.0 Normal >60.0 [facility] Comment on above: Result Comment: Calc ulation based on the Chronic Kidney Disease Epidemiology Collaboration (CKD-EPI) equation refit without adjustment for race Performed By: #### L [id number] ####Registered Nurse Step Down: NED PAK ([id number])[facility] ([facility])[address] [place] [address] [place] Glucose [Mass/Vol] 126 mg/dL High 70-100 [facility] Comment on above: Performed By: #### L [id number] ####Registered Nurse Step Down: NED PAK ([id number])[facility] ([facility])[address] [place] [address] Potassium [Moles/Vol] 4.3 mmol/L Normal 3.5-5.1 [facility] Comment on above: Performed By: #### L [id number] ####Registered Nurse Step Down: NED PAK ([id number])[facility])[address] [place] [address] Sodium [Moles/Vol] 138 mmol/L Normal 135-145 [facility] Comment on above: Performed By: #### L [id number] ####Registered Nurse Step Down: NED PAK ([id number])[facility])[address] [place] [address] Urea nitrogen [Mass/Vol] 18 mg/dL High 7-17 [facility] Comment on above: Performed By: #### L [id number] ####Registered Nurse Step Down: NED PAK ([id number])[facility] ([facility])[address] [place] [address] CARECOORDon 12-31-2022 CARECOORD Normal [facility] CBC (HEMOGRAM)on 12-31-2022 Erythrocyte distribution width (RBC) [Ratio] 16.0 % High 11.5-14.5 [facility] Comment on above: Performed By: #### L [id number] ####Registered Nurse Step Down: NED PAK ([id number])[facility])[address] [place] [address] ERYTHROCYTE MEAN CORPUSCULAR HEMOGLOBIN CONCENTRATION (G/DL) BY AUTOMATED 33.1 % Normal 32.0-36.0 [facility] Comment on above: Performed By: #### L [id number] ####Registered Nurse Step Down: NED PAK ([id number])[facility])[address] [place] [address] Hematocrit (Bld) [Volume fraction] 29.3 % Low 35.0-47.0 [facility] Comment on above: Performed By: #### L [id number] ####Registered Nurse Step Down: NED [id number])[facility])[address] [place] [address] Hemoglobin (Bld) [Mass/Vol] 9.7 g/dL Low 11.7-16.0 [facility] Comment on above: Performed By: #### L [id number] ####Registered Nurse Step Down: NED PAK ([id number])[facility])[address] [place] [address] MCH (RBC) [Entitic mass] 29.9 pg Normal 26.0-34.0 [facility] Comment on above: Performed By: #### L [id number] ####Registered Nurse Step Down: NED PAK ([id number])[address] MCV (RBC) [Entitic vol] 90.3 fL Normal 80.0-98.0 [facility] Comment on above: Performed By: #### L [id number] ####Registered Nurse Step Down: NED PAK ([id number])[facility])[address] [place] [address] Platelet mean volume (Bld) [Entitic vol] 6.7 fL Low 7.4-12.4 [facility] Comment on above: Performed By: #### L [id number] ####Registered Nurse Step Down: NED PAK ([id number])[facility])[address] [place] [address] PLATELETS (10*3/UL) IN BLOOD AUTOMATED COUNT 693 10*3/uL High 140-440 [facility] Comment on above: Performed By: #### L [id number] ####Registered Nurse Step Down: NED PAK ([id number])[facility])[address] [place] [address] RBC (Bld) [#/Vol] 3.24 10*6/uL Low 3.8-5.20 [facility] Comment on above: Performed By: #### L [id number] ####Registered Nurse Step Down: NED PAK ([id number])[facility])[address] [place] [address] WBC (Bld) [#/Vol] 15.6 10*3/uL High 3.6-10.7 [facility] Comment on above: Performed By: #### L [id number] ####Registered Nurse Step Down: NED PAK ([id number])[facility] ([facility])[address] [place] [address] IDNon 12-31-2022 IDN Normal [facility] Progress Noteon 12-31-2022 Progress Note Normal [facility] Progress Note Normal [facility] Progress Note Normal [facility] Progress Note Normal [facility] ECG 12-LEADon 12-30-2022 ECG 12-LEAD IMPRESSION: Sinus rhythm Multiple ventricular premature complexes LVH with secondary repolarization abnormality Electronically Signed On 12-30-2022 13:50:09 EDT by Terra Cat Normal [facility] IDNon 12-30-2022 IDN Normal [facility] Nursing Noteon 12-30-2022 Nursing Note David came to see p atient, fitted with smaller C collar for patient comfort. Pt is now eating and seems to be ok with new collar Normal [facility] Progress Noteon 12-30-2022 Progress Note Normal [facility] Progress Note Normal [facility] Progress Note Normal [facility] Progress Note Normal [facility] CARECOORDon 12-29-2022 CARECOORD Normal [facility] CBC (HEMOGRAM)on 12-29-2022 Erythrocyte distribution width (RBC) [Ratio] 15.7 % High 11.5-14.5 [facility] Comment on above: Performed By: #### L [id number] ####Registered Nurse Step Down: NED PAK ([id number])[facility] ([facility])[address] [place] [address] ERYTHROCYTE MEAN CORPUSCULAR HEMOGLOBIN CONCENTRATION (G/DL) BY AUTOMATED 33.3 % Normal 32.0-36.0 [facility] Comment on above: Performed By: #### L [id number] ####Registered Nurse Step Down: NED PAK ([id number])[facility])[address] [place] [address] Hematocrit (Bld) [Volume fraction] 27.7 % Low 35.0-47.0 [facility] Comment on above: Performed By: #### L [id number] ####Registered Nurse Step Down: NED PAK ([id number])[facility])[address] [place] [address] Hemoglobin (Bld) [Mass/Vol] 9.2 g/dL Low 11.7-16.0 [facility] Comment on above: Performed By: #### L [id number] ####Registered Nurse Step Down: NED PAK ([id number])[facility])[address] [place] [address] MCH (RBC) [Entitic mass] 30.1 pg Normal 26.0-34.0 [facility] Comment on above: Performed By: #### L [id number] ####Registered Nurse Step Down: NED PAK ([id number])[facility] ([facility])[address] [place] [address] MCV (RBC) [Entitic vol] 90.5 fL Normal 80.0-98.0 [facility] Comment on above: Performed By: #### L [id number] ####Registered Nurse Step Down: NED PAK ([id number])[facility])[address] [place] [address] Platelet mean volume (Bld) [Entitic vol] 6.8 fL Low 7.4-12.4 [facility] Comment on above: Performed By: #### L [id number] ####Registered Nurse Step Down: NED PAK ([id number])[facility])[address] [place] [address] PLATELETS (10*3/UL) IN BLOOD AUTOMATED COUNT 606 10*3/uL High 140-440 [facility] Comment on above: Performed By: #### L [id number] ####Registered Nurse Step Down: NED PAK ([id number])[facility])[address] [place] [address] RBC (Bld) [#/Vol] 3.07 10*6/uL Low 3.8-5.20 [facility] Comment on above: Performed By: #### L [id number] ####Registered Nurse Step Down: NED PAK ([id number])[facility])[address] [place] [address] WBC (Bld) [#/Vol] 16.9 10*3/uL High 3.6-10.7 [facility] Comment on above: Performed By: #### L [id number] ####Registered Nurse Step Down: NED PAK ([id number])[facility])[address] [place] [address] IDNon 12-29-2022 IDN Normal [facility] Nursing Noteon 12-29-2022 Nursing Note Normal [facility] PROCALCITONIN TESTon 023 PROCALCITONIN 0.07 ng/mL Normal 0.00-0.09 [facility] Comment on above: Result Comment: ORDE R COMMENTS:PCT <0.50 = Low risk of severe sepsis and/or septic shock.PCT >2.00 = High risk of severe sepsis and/or septic shock. Performed By: #### L [id number] ####Registered Nurse Step Down: NED PAK ([id number])[facility])[address] [place] [address] Progress Noteon 12-29-2022 Progress Note Normal [facility] Progress Note Normal [facility] Progress Note Normal [facility] Progress Note Normal [facility] XR CHEST 1 VIEWon 12-29-2022 XR CHEST 1 VIEW Normal [facility] CARECOORDon 12-28-2022 CARECOORD Normal [facility] Nursing Noteon 12-28-2022 Nursing Note 12/27/22 @ 2325 New # 22g PIV inserted to L FA per this RN after non assigned nurse attempted x 3 unsuccessful attempts d/t veins blew. Pt tolerated good. Will start IV antibiotics per order at this time. Normal [facility] PROCALCITONIN TESTon 023 PROCALCITONIN 0.09 ng/mL Normal 0.00-0.09 [facility] Comment on above: Result Comment: ORDE R COMMENTS:PCT <0.50 = Low risk of severe sepsis and/or septic shock.PCT >2.00 = High risk of severe sepsis and/or septic shock. Performed By: #### L [id number] ####Registered Nurse Step Down: NED PAK ([id number])[address] Progress Noteon 12-28-2022 Progress Note [facility] Progress Note Vancomycin therapy h as been discontinued by Lynnette Phelan on 12/28. Thank you for the consult. Pharmacy signing off for vancomycin dosing. Casi Salazar, PharmD Date: 12/28/22 Time: 2:01 PM Normal [facility] Progress Note Normal [facility] Note [facility] VANCOMYCIN, RANDOMon 023 VANCOMYCIN 11.8 ug/mL Low 15.0-20.0 [facility] Comment on above: Order Comment: Pleas e draw random vancomycin level > 2 hours after the end of the vancomycin infusion. Thank you! Performed By: #### L [id number] ####Registered Nurse Step Down: NED PAK ([id number])[address] IDNon 12-27-2022 IDN Normal [facility] Nursing Noteon 12-27-2022 Nursing Note Normal [facility] Progress Noteon 12-27-2022 Progress Note Normal [facility] Progress Note Normal [facility] Progress Note Normal [facility] Progress Note Normal [facility] XR CHEST 1 VIEWon 12-27-2022 XR CHEST 1 VIEW Normal [facility] CARECOORDon 12-26-2022 CARECOORD Normal [facility] CBC WITH AUTO DIFFERENTIALon 12-26-2022 Erythrocyte distribution width (RBC) [Ratio] 14.5 % Normal 11.5-14.5 [facility] Comment on above: Performed By: #### L [id number], [id number] ####Registered Nurse Step Down: NED PAK ([id number])[address] ERYTHROCYTE MEAN CORPUSCULAR HEMOGLOBIN CONCENTRATION (G/DL) BY AUTOMATED 32.5 % Normal 32.0-36.0 [facility] Comment on above: Performed By: #### L [id number], [id number] ####Registered Nurse Step Down: NED PAK ([id number])[facility])[address] [place] [address] Hematocrit (Bld) [Volume fraction] 25.5 % Low 35.0-47.0 [facility] Comment on above: Performed By: #### L [id number], [id number] ####Registered Nurse Step Down: NED PAK ([id number])[address] Hemoglobin (Bld) [Mass/Vol] 8.3 g/dL Low 11.7-16.0 [facility] Comment on above: Performed By: #### Tameka [id number], [id number] ####Registered Nurse Step Down: NED PAK ([id number])[facility])[address] [place] [address] MCH (RBC) [Entitic mass] 29.2 pg Normal 26.0-34.0 [facility] Comment on above: Performed By: #### L [id number], [id number] ####Registered Nurse Step Down: NED PAK ([id number])[facility])[address] [place] [address] MCV (RBC) [Entitic vol] 89.8 fL Normal 80.0-98.0 [facility] Comment on above: Performed By: #### L [id number], [id number] ####Registered Nurse Step Down: NED PAK ([id number])[address] NRBC (PER 100 WBCS) BY AUTOMATED COUNT 0.2 /100 WBCs Normal 0.0-2.0 [facility] Comment on above: Performed By: #### L [id number], [id number] ####Registered Nurse Step Down: NED PAK ([id number])[facility])[address] [place] [address] Platelet mean volume (Bld) [Entitic vol] 7.0 fL Low 7.4-12.4 [facility] Comment on above: Performed By: #### L [id number], [id number] ####Registered Nurse Step Down: NED PAK ([id number])[facility])[address] [place] [address] PLATELETS (10*3/UL) IN BLOOD AUTOMATED COUNT 499 10*3/uL High 140-440 [facility] Comment on above: Performed By: #### Tameka [id number], [id number] ####Registered Nurse Step Down: NED PAK ([id number])[facility])[address] [place] [address] RBC (Bld) [#/Vol] 2.84 10*6/uL Low 3.8-5.20 [facility] Comment on above: Performed By: #### Tameka [id number], [id number] ####Registered Nurse Step Down: NED PAK ([id number])[facility])[address] [place] [address] WBC (Bld) [#/Vol] 13.8 10*3/uL High 3.6-10.7 [facility] Comment on above: Performed By: #### L [id number], [id number] ####Registered Nurse Step Down: NED PAK ([id number])[facility])[address] [place] [address] [place] IDNon 12-26-2022 IDN Normal [facility] MANUAL DIFFERENTIALon 2022 BAND NEUTROPHILS (10*3/UL) BLOOD MANUAL COUNT 1.0 10*3/uL High <=0.0 [facility] Comment on above: Performed By: #### L [id number], [id number] ####Registered Nurse Step Down: NED PAK ([id number])[facility])[address] [place] [address] [place] BAND NEUTROPHILS TOTAL PER COUNTED LEUKOCYTES BY MANUAL COUNT 7 Normal [facility] Comment on above: Performed By: #### L [id number], [id number] ####Registered Nurse Step Down: NED PAK ([id number])[facility])[address] [place] [address] CELLS COUNTED TOTAL (#) IN BLOOD 100 Normal [facility] Comment on above: Performed By: #### L [id number], [id number] ####Registered Nurse Step Down: END PAK ([id number])[facility])[address] [place] [address] DIFFERENTIAL METHOD Manual differential performed Normal [facility] Comment on above: Performed By: #### L [id number], [id number] ####Registered Nurse Step Down: NED PAK ([id number])[facility] ([facility])[address] [place] [address] EOSINOPHILS (10*3/UL) IN BLOOD BY MANUAL COUNT 0.3 10*3/uL Normal 0.0-0.5 [facility] Comment on above: Performed By: #### L [id number], [id number] ####Registered Nurse Step Down: NED PAK ([id number])[facility] ([facility])[address] [place] [address] [place] EOSINOPHILS TOTAL PER COUNTED LEUKOCYTES BY MANUAL COUNT 2 High 0-1 [facility] Comment on above: Performed By: #### L [id number], [id number] ####Registered Nurse Step Down: NED PAK ([id number])[facility] ([facility])[address] [place] [address] [place] EOSINOPHILS/100 LEUKOCYTES IN BLOOD BY MANUAL COUNT 2 % Normal 1-6 [facility] Comment on above: Performed By: #### L [id number], [id number] ####Registered Nurse Step Down: NED PAK ([id number])[facility])[address] [place] [address] HYPERSEGMENTED NEUTROPHILS IN BLOOD BY LIGHT MICROSCOPY (PRESENT) Present Abnormal (none) [facility] Comment on above: Performed By: #### L [id number], [id number] ####Registered Nurse Step Down: NED PAK ([id number])[facility])[address] [place] [address] LEUKOCYTES (10*3/UL) NUCLEATED ERYTHROCYTE ADJUST 13.8 10*3/uL High 3.6-10.7 [facility] Comment on above: Performed By: #### L [id number], [id number] ####Registered Nurse Step Down: NED PAK ([id number])[facility])[address] [place] [address] LYMPHOCYTES (10*3/UL) IN BLOOD BY MANUAL COUNT 1.2 10*3/uL Normal 1.0-4.3 [facility] Comment on above: Performed By: #### L [id number], [id number] ####Registered Nurse Step Down: NED PAK ([id number])[facility])[address] [place] [address] LYMPHOCYTES TOTAL PER COUNTED LEUKOCYTES BY MANUAL COUNT 9 Normal [facility] Comment on above: Performed By: #### L [id number], [id number] ####Registered Nurse Step Down: NED PAK ([id number])[facility])[address] [place] [address] LYMPHOCYTES VARIANT/100 LEUKOCYTES IN BLOOD 1 % High <=0 [facility] Comment on above: Performed By: #### L [id number], [id number] ####Registered Nurse Step Down: NED PAK ([id number])[facility])[address] [place] [address] [place] LYMPHOCYTES/100 LEUKOCYTES IN BLOOD BY MANUAL COUNT 9 % Low 20-40 [facility] Comment on above: Performed By: #### L [id number], [id number] ####Registered Nurse Step Down: NED PAK ([id number])[facility])[address] [place] [address] [place] METAMYELOCYTES (10*3/UL) IN BLOOD BY MANUAL COUNT 0.3 10*3/uL High <=0.0 [facility] Comment on above: Performed By: #### L [id number], [id number] ####Registered Nurse Step Down: NED PAK ([id number])[facility])[address] [place] [address] [place] METAMYELOCYTES TOTAL PER COUNTED LEUKOCYTES BY MANUAL COUNT 2 Normal [facility] Comment on above: Performed By: #### L [id number], [id number] ####Registered Nurse Step Down: NED PAK ([id number])[facility])[address] [place] [address] [place] METAMYELOCYTES/100 LEUKOCYTES IN BLOOD BY MANUAL COUNT 2 % High <=0 [facility] Comment on above: Performed By: #### L [id number], [id number] ####Registered Nurse Step Down: NED PAK ([id number])[facility])[address] [place] [address] [place] MONOCYTES (10*3/UL) IN BLOOD BY MANUAL COUNT 1.4 10*3/uL High 0.0-0.8 [facility] Comment on above: Performed By: #### L [id number], [id number] ####Registered Nurse Step Down: NED PAK ([id number])[facility])[address] [place] [address] [place] MONOCYTES TOTAL PER COUNTED LEUKOCYTES BY MANUAL COUNT 10 Normal [facility] Comment on above: Performed By: #### L [id number], [id number] ####Registered Nurse Step Down: NED PAK ([id number])[facility])[address] [place] [address] [place] MONOCYTES/100 LEUKOCYTES IN BLOOD BY MANUAL COUNT 10 % Normal 2-10 [facility] Comment on above: Performed By: #### L [id number], [id number] ####Registered Nurse Step Down: NED PAK ([id number])[facility])[address] [place] [address] [place] NEUTROPHILS (SEGS+BANDS) (10*3/UL) BY MANUAL COUNT 10.5 10*3/uL High 1.8-7.0 [facility] Comment on above: Performed By: #### L [id number], [id number] ####Registered Nurse Step Down: NED PAK ([id number])[facility])[address] [place] [address] [place] NEUTROPHILS BAND FORM/100 LEUKOCYTES IN BLOOD BY MANUAL COUNT 7 % High <=0 [facility] Comment on above: Performed By: #### L [id number], [id number] ####Registered Nurse Step Down: NED PAK ([id number])[facility] ([facility])[address] [place] [address] [place] NEUTROPHILS TOTAL PER COUNTED LEUKOCYTES BY MANUAL COUNT 69 Normal [facility] Comment on above: Performed By: #### L [id number], [id number] ####Registered Nurse Step Down: NED PAK ([id number])[facility])[address] [place] [address] NUCLEATED ERYTHROCYTES/100 LEUKOCYTES IN BLOOD BY MANUAL COUNT 2 % Normal [facility] Comment on above: Performed By: #### L [id number], [id number] ####Registered Nurse Step Down: NED PAK ([id number])[facility])[address] [place] [address] [place] OVALOCYTES PRESENCE IN BLOOD BY LIGHT MICROSCOPY Slight Abnormal (none) [facility] Comment on above: Performed By: #### L [id number], [id number] ####Registered Nurse Step Down: NED PAK ([id number])[facility])[address] [place] [address] [place] PLATELET MORPHOLOGY IN BLOOD Normal Normal [facility] Comment on above: Performed By: #### L [id number], [id number] ####Registered Nurse Step Down: NED PAK ([id number])[facility] ([facility])[address] [place] [address] [place] POIKILOCYTOSIS (PRESENCE) IN BLOOD BY LIGHT MICROSCOPY Slight Abnormal (none) [facility] Comment on above: Performed By: #### L [id number], [id number] ####Registered Nurse Step Down: NED PAK ([id number])[facility])[address] [place] [address] [place] POLYCHROMASIA IN BLOOD BY LIGHT MICROSCOPY Slight Abnormal (none) [facility] Comment on above: Performed By: #### L [id number], [id number] ####Registered Nurse Step Down: NED PAK ([id number])[facility])[address] [place] [address] SEGEMENTED NEUTROPHILS/100 LEUKOCYTES BY MANUAL COUNT 69 % Normal 40-80 [facility] Comment on above: Performed By: #### L [id number], [id number] ####Registered Nurse Step Down: NED PAK ([id number])[facility] ([facility])[address] [place] [address] SEGMENTED NEUTROPHILS (10*3/UL)IN BLOOD BY MANUAL COUNT 10.5 10*3/uL High 1.8-7.0 [facility] Comment on above: Performed By: #### L [id number], [id number] ####Registered Nurse Step Down: NED PAK ([id number])[facility])[address] [place] [address] VACUOLATED NEUTROPHILS PRESENCE IN BLOOD BY LIGHT MICROSCOPY (PRESENT) Present Abnormal (none) [facility] Comment on above: Performed By: #### L [id number], [id number] ####Registered Nurse Step Down: NED PAK ([id number])[facility] ([facility])[address] [place] [address] VARIANT LYMPHOCYTES (10*3/UL) IN BLOOD BY MANUAL COUNT 0.1 10*3/uL High <=0.0 [facility] Comment on above: Performed By: #### L [id number], [id number] ####Registered Nurse Step Down: NED PAK ([id number])[facility] ([facility])[address] [place] [address] VARIANT LYMPHOCYTES TOTAL PER COUNTED LEUKOCYTES BY MANUAL COUNT 1 Normal [facility] Comment on above: Performed By: #### L [id number], [id number] ####Registered Nurse Step Down: NED PAK ([id number])[facility] ([facility])[address] [place] [address] Nursing Noteon 12-26-2022 Nursing Note Contact list updated Renée is primary Jose Luis is to be contacted secondary at [phone] Normal [facility] Nursing Note Patients family askpopeye huerta that primary contact be updated to gabrielle Chinchilla as patients is [place]. Patient is ok with Renée being primary contact. Will adjust in contact list [facility] Nursing Note Patient family asktabatha gutierrez for an update. Message sent to trauma CATHRYN Church she will come to bedside to speak to patient Normal [facility] Nursing Note Patient bladder scan millie for greater than 400 ml. Patient straight cathed as ordered for 500 ml urine Normal [facility] Nursing Note Normal [facility] Progress Noteon 12-26-2022 Progress Note 1800 bladder scan wa s >537ml. Patient has been straight catheterized 3 times since [address] Avendano made aware and order received to place indwelling duarte catheter. Normal [facility] Progress Note Normal [facility] BASIC METABOLIC PANELon 10-0 Anion gap [Moles/Vol] 10 mmol/L Normal 3-13 [facility] Comment on above: Performed By: #### L [id number] ####Registered Nurse Step Down: NED PAK ([id number])[address] Calcium [Mass/Vol] 8.8 mg/dL Normal 8.4-10.4 [facility] Comment on above: Performed By: #### L AB15 ####Registered Nurse Step Down: NED PAK ([id number])[facility])[address] [place] [address] Chloride [Moles/Vol] 105 mmol/L Normal 98-107 [facility] Comment on above: Performed By: #### L [id number] ####Registered Nurse Step Down: NED PAK ([id number])[address] CO2 [Moles/Vol] 24 mmol/L Normal 22-30 [facility] Comment on above: Performed By: #### L AB15 ####Registered Nurse Step Down: NED PAK ([id number])[facility] [place] [address] Creatinine [Mass/Vol] 0.63 mg/dL Normal 0.52-1.04 [facility] Comment on above: Performed By: #### L AB15 ####Registered Nurse Step Down: NED PAK ([id number])[facility])[address] [place] [address] [place] GLOMERULAR FILTRATION RATE ML/MIN/1.73 SQ M.PREDICTED 79.3 mL/min/1.73m*2 Normal >60.0 [facility] Comment on above: Result Comment: Calc ulation based on the Chronic Kidney Disease Epidemiology Collaboration (CKD-EPI) equation refit without adjustment for race Performed By: #### L AB15 ####Registered Nurse Step Down: NED PAK ([id number])[facility])[address] [place] [address] Glucose [Mass/Vol] 117 mg/dL High 70-100 [facility] Comment on above: Performed By: #### L AB15 ####Registered Nurse Step Down: NED PAK ([id number])[facility])[address] [place] [address] Potassium [Moles/Vol] 3.7 mmol/L Normal 3.5-5.1 [facility] Comment on above: Performed By: #### L AB15 ####Registered Nurse Step Down: NED PAK ([id number])[facility])[address] [place] [address] [place] Sodium [Moles/Vol] 139 mmol/L Normal 135-145 [facility] Comment on above: Performed By: #### L AB15 ####Registered Nurse Step Down: NED PAK ([id number])[facility])[address] [place] [address] [place] Urea nitrogen [Mass/Vol] 26 mg/dL High 7-17 [facility] Comment on above: Performed By: #### L AB15 ####Registered Nurse Step Down: NED PAK ([id number])[facility])[address] [place] [address] [place] CARECOORDon 12-25-2022 CARECOORD Normal [facility] CBC WITH AUTO DIFFERENTIALon 12-25-2022 Erythrocyte distribution width (RBC) [Ratio] 14.9 % High 11.5-14.5 [facility] Comment on above: Performed By: #### L [id number], [id number] ####Registered Nurse Step Down: NED PAK ([id number])[facility])[address] [place] [address] ERYTHROCYTE MEAN CORPUSCULAR HEMOGLOBIN CONCENTRATION (G/DL) BY AUTOMATED 32.6 % Normal 32.0-36.0 [facility] Comment on above: Performed By: #### L [id number], [id number] ####Registered Nurse Step Down: NED PAK ([phone])[facility])[address] [place] [address] Hematocrit (Bld) [Volume fraction] 26.6 % Low 35.0-47.0 [facility] Comment on above: Performed By: #### Tameka [id number], [id number] ####Registered Nurse Step Down: NED PAK ([id number])[address] Hemoglobin (Bld) [Mass/Vol] 8.7 g/dL Low 11.7-16.0 [facility] Comment on above: Performed By: #### L [id number], [id number] ####Registered Nurse Step Down: NED PAK ([id number])[address] MCH (RBC) [Entitic mass] 29.8 pg Normal 26.0-34.0 [facility] Comment on above: Performed By: #### L [id number], [id number] ####Registered Nurse Step Down: NED PAK ([id number])[facility])[address] [place] [address] MCV (RBC) [Entitic vol] 91.3 fL Normal 80.0-98.0 [facility] Comment on above: Performed By: #### L [id number], [id number] ####Registered Nurse Step Down: NED PAK ([id number])[facility])[address] [place] [address] NRBC (PER 100 WBCS) BY AUTOMATED COUNT 0.3 /100 WBCs Normal 0.0-2.0 [facility] Comment on above: Performed By: #### L [id number], [id number] ####Registered Nurse Step Down: NED PAK ([id number])[facility])[address] [place] [address] Platelet mean volume (Bld) [Entitic vol] 7.6 fL Normal 7.4-12.4 [facility] Comment on above: Performed By: #### L [id number], [id number] ####Registered Nurse Step Down: NED PAK ([id number])[facility])[address] [place] [address] PLATELETS (10*3/UL) IN BLOOD AUTOMATED COUNT 309 10*3/uL Normal 140-440 [facility] Comment on above: Performed By: #### L [id number], [id number] ####Registered Nurse Step Down: NED PAK ([id number])[facility])[address] [place] [address] RBC (Bld) [#/Vol] 2.92 10*6/uL Low 3.8-5.20 [facility] Comment on above: Performed By: #### L [id number], [id number] ####Registered Nurse Step Down: NED PAK ([id number])[facility])[address] [place] [address] WBC (Bld) [#/Vol] 14.8 10*3/uL High 3.6-10.7 [facility] Comment on above: Performed By: #### L [id number], [id number] ####Registered Nurse Step Down: NED PAK ([id number])[facility])[address] [place] [address] MANUAL DIFFERENTIALon 2022 BAND NEUTROPHILS (10*3/UL) BLOOD MANUAL COUNT 0.1 10*3/uL High <=0.0 [facility] Comment on above: Performed By: #### L [id number], [id number] ####Registered Nurse Step Down: NED PAK ([id number])[facility])[address] [place] [address] BAND NEUTROPHILS TOTAL PER COUNTED LEUKOCYTES BY MANUAL COUNT 1 Normal [facility] Comment on above: Performed By: #### L [id number], [id number] ####Registered Nurse Step Down: NED PAK ([id number])[facility])[address] [place] [address] CELLS COUNTED TOTAL (#) IN BLOOD 100 Normal [facility] Comment on above: Performed By: #### L [id number], [id number] ####Registered Nurse Step Down: NED PAK ([id number])[facility])[address] [place] [address] DIFFERENTIAL METHOD Manual differential performed Normal [facility] Comment on above: Performed By: #### L [id number], [id number] ####Registered Nurse Step Down: NED PAK ([id number])[facility] ([facility])[address] [place] [address] [place] EOSINOPHILS (10*3/UL) IN BLOOD BY MANUAL COUNT 0.6 10*3/uL High 0.0-0.5 [facility] Comment on above: Performed By: #### L [id number], [id number] ####Registered Nurse Step Down: NED PAK ([id number])[facility])[address] [place] [address] [place] EOSINOPHILS TOTAL PER COUNTED LEUKOCYTES BY MANUAL COUNT 4 High 0-1 [facility] Comment on above: Performed By: #### L [id number], [id number] ####Registered Nurse Step Down: NED PAK ([id number])[facility])[address] [place] [address] [place] EOSINOPHILS/100 LEUKOCYTES IN BLOOD BY MANUAL COUNT 4 % Normal 1-6 [facility] Comment on above: Performed By: #### L [id number], [id number] ####Registered Nurse Step Down: NED [id number])[facility] [place] [address] [place] LEUKOCYTE MORPHOLOGY FINDING IN BLOOD Normal Normal [facility] Comment on above: Performed By: #### L [id number], [id number] ####Registered Nurse Step Down: NED PAK ([id number])[facility] ([facility])[address] [place] [address] LEUKOCYTES (10*3/UL) NUCLEATED ERYTHROCYTE ADJUST 14.8 10*3/uL High 3.6-10.7 [facility] Comment on above: Performed By: #### L [id number], [id number] ####Registered Nurse Step Down: NED PAK ([phone])[facility])[address] [place] [address] LYMPHOCYTES (10*3/UL) IN BLOOD BY MANUAL COUNT 1.8 10*3/uL Normal 1.0-4.3 [facility] Comment on above: Performed By: #### [place] [id number], [id number] ####Registered Nurse Step Down: NED PAK ([id number])[facility] ([facility])[address] [place] [address] [place] LYMPHOCYTES TOTAL PER COUNTED LEUKOCYTES BY MANUAL COUNT 12 Normal [facility] Comment on above: Performed By: #### [place] [id number], [id number] ####Registered Nurse Step Down: NED PAK ([phone])[facility])[address] [place] [address] [place] LYMPHOCYTES/100 LEUKOCYTES IN BLOOD BY MANUAL COUNT 12 % Low 20-40 [facility] Comment on above: Performed By: #### L [id number], [id number] ####Registered Nurse Step Down: NED PAK ([phone])[facility])[address] [place] [address] [place] METAMYELOCYTES (10*3/UL) IN BLOOD BY MANUAL COUNT 0.1 10*3/uL High <=0.0 [facility] Comment on above: Performed By: #### L [id number], [id number] ####Registered Nurse Step Down: NED PAK ([phone])[facility] ([facility])[address] [place] [address] [place] METAMYELOCYTES TOTAL PER COUNTED LEUKOCYTES BY MANUAL COUNT 1 Normal [facility] Comment on above: Performed By: #### L [id number], [id number] ####Registered Nurse Step Down: NED PAK ([phone])[facility] ([facility])[address] [place] [address] [place] METAMYELOCYTES/100 LEUKOCYTES IN BLOOD BY MANUAL COUNT 1 % High <=0 [facility] Comment on above: Performed By: #### L [id number], [id number] ####Registered Nurse Step Down: NED PAK ([phone])[facility] ([facility])[address] [place] [address] [place] MONOCYTES (10*3/UL) IN BLOOD BY MANUAL COUNT 0.9 10*3/uL High 0.0-0.8 [facility] Comment on above: Performed By: #### L [id number], [id number] ####Registered Nurse Step Down: NED PAK ([phone])[facility] ([facility])[address] [place] [address] [place] MONOCYTES TOTAL PER COUNTED LEUKOCYTES BY MANUAL COUNT 6 Normal [facility] Comment on above: Performed By: #### L [id number], [id number] ####Registered Nurse Step Down: NED PAK ([id number])[facility] ([facility])[address] [place] [address] [place] MONOCYTES/100 LEUKOCYTES IN BLOOD BY MANUAL COUNT 6 % Normal 2-10 [facility] Comment on above: Performed By: #### L [id number], [id number] ####Registered Nurse Step Down: NED PAK ([phone])[facility] ([facility])[address] [place] [address] [place] MYELOCYTES (10*3/UL) IN BLOOD BY MANUAL COUNT 0.1 10*3/uL High <=0.0 [facility] Comment on above: Performed By: #### L [id number], [id number] ####Registered Nurse Step Down: NED PAK ([phone])[facility] ([facility])[address] [place] [address] [place] MYELOCYTES COUNTED BY MANUAL COUNT 1 Normal [facility] Comment on above: Performed By: #### L [id number], [id number] ####Registered Nurse Step Down: NED PAK ([phone])[facility])[address] [place] [address] [place] MYELOCYTES/100 LEUKOCYTES IN BLOOD BY MANUAL COUNT 1 % High <=0 [facility] Comment on above: Performed By: #### L [id number], [id number] ####Registered Nurse Step Down: NED PAK ([phone])[facility])[address] [place] [address] [place] NEUTROPHILS (SEGS+BANDS) (10*3/UL) BY MANUAL COUNT 11.2 10*3/uL High 1.8-7.0 [facility] Comment on above: Performed By: #### L [id number], [id number] ####Registered Nurse Step Down: NED PAK ([phone])[facility])[address] [place] [address] [place] NEUTROPHILS BAND FORM/100 LEUKOCYTES IN BLOOD BY MANUAL COUNT 1 % High <=0 [facility] Comment on above: Performed By: #### Tameka [id number], [id number] ####Registered Nurse Step Down: NED PAK ([id number])[facility])[address] [place] [address] [place] NEUTROPHILS TOTAL PER COUNTED LEUKOCYTES BY MANUAL COUNT 75 Normal [facility] Comment on above: Performed By: #### L [id number], [id number] ####Registered Nurse Step Down: NED PAK ([phone])[facility])[address] [place] [address] [place] NUCLEATED ERYTHROCYTES/100 LEUKOCYTES IN BLOOD BY MANUAL COUNT 1 % Normal [facility] Comment on above: Performed By: #### L [id number], [id number] ####Registered Nurse Step Down: NED PAK ([phone])[facility])[address] [place] [address] [place] OVALOCYTES PRESENCE IN BLOOD BY LIGHT MICROSCOPY Slight Abnormal (none) [facility] Comment on above: Performed By: #### L [id number], [id number] ####Registered Nurse Step Down: NED PAK ([phone])[facility] [place] [address] PLATELET MORPHOLOGY IN BLOOD Normal Normal [facility] Comment on above: Performed By: #### L [id number], [id number] ####Registered Nurse Step Down: NED PAK ([phone])[facility] ([facility])[address] [place] [address] POIKILOCYTOSIS (PRESENCE) IN BLOOD BY LIGHT MICROSCOPY Slight Abnormal (none) [facility] Comment on above: Performed By: #### L [id number], [id number] ####Registered Nurse Step Down: NED PAK ([id number])[facility] ([facility])[address] [place] [address] POLYCHROMASIA IN BLOOD BY LIGHT MICROSCOPY Slight Abnormal (none) [facility] Comment on above: Performed By: #### Tameka [id number], [id number] ####Registered Nurse Step Down: NED PAK ([id number])[facility] ([facility])[address] [place] [address] SEGEMENTED NEUTROPHILS/100 LEUKOCYTES BY MANUAL COUNT 75 % Normal 40-80 [facility] Comment on above: Performed By: #### Tameka [id number], [id number] ####Registered Nurse Step Down: NED PAK ([phone])[facility] ([facility])[address] [place] [address] SEGMENTED NEUTROPHILS (10*3/UL)IN BLOOD BY MANUAL COUNT 11.2 10*3/uL High 1.8-7.0 [facility] Comment on above: Performed By: #### L [id number], [id number] ####Registered Nurse Step Down: NED PAK ([id number])[facility] ([facility])[address] [place] [address] Progress Noteon 12-25-2022 Progress Note Normal [facility] Progress Note Normal [facility] Progress Note Normal [facility] Progress Note Normal [facility] BASIC METABOLIC PANELon Anion gap [Moles/Vol] 11 mmol/L Normal 3-13 [facility] Comment on above: Performed By: #### L [id number] ####Registered Nurse Step Down: NED PAK ([phone])[facility])[address] [place] [address] Calcium [Mass/Vol] 8.6 mg/dL Normal 8.4-10.4 [facility] Comment on above: Performed By: #### L [id number] ####Registered Nurse Step Down: NED PAK ([phone])[facility] ([facility])[address] [place] [address] Chloride [Moles/Vol] 109 mmol/L High 98-107 [facility] Comment on above: Performed By: #### L [id number] ####Registered Nurse Step Down: NED PAK ([id number])[facility] ([facility])[address] [place] [address] CO2 [Moles/Vol] 23 mmol/L Normal 22-30 [facility] Comment on above: Performed By: #### L [id number] ####Registered Nurse Step Down: NED PAK ([id number])[facility] ([facility])[address] [place] [address] Creatinine [Mass/Vol] 0.64 mg/dL Normal 0.52-1.04 [facility] Comment on above: Performed By: #### L [id number] ####Registered Nurse Step Down: NED PAK ([phone])[facility])[address] [place] [address] [place] GLOMERULAR FILTRATION RATE ML/MIN/1.73 SQ M.PREDICTED 79.0 mL/min/1.73m*2 Normal >60.0 [facility] Comment on above: Result Comment: Calc ulation based on the Chronic Kidney Disease Epidemiology Collaboration (CKD-EPI) equation refit without adjustment for race Performed By: #### L [id number] ####Registered Nurse Step Down: NED PAK ([id number])[facility] ([facility])[address] [place] [address] Glucose [Mass/Vol] 157 mg/dL High 70-100 [facility] Comment on above: Performed By: #### L [id number] ####Registered Nurse Step Down: NED PAK ([phone])[facility])[address] [place] [address] Potassium [Moles/Vol] 3.7 mmol/L Normal 3.5-5.1 [facility] Comment on above: Performed By: #### L [id number] ####Registered Nurse Step Down: NED PAK ([id number])[facility] ([facility])[address] [place] [address] Sodium [Moles/Vol] 143 mmol/L Normal 135-145 [facility] Comment on above: Performed By: #### L AB15 ####Registered Nurse Step Down: NED PAK ([id number])[facility])[address] [place] [address] Urea nitrogen [Mass/Vol] 27 mg/dL High 7-17 [facility] Comment on above: Performed By: #### L [id number] ####Registered Nurse Step Down: NED PAK ([id number])[facility] ([facility])[address] [place] [address] CARECOORDon 12-24-2022 CARECOORD Normal [facility] CBC WITH AUTO DIFFERENTIALon 12-24-2022 Erythrocyte distribution width (RBC) [Ratio] 13.9 % Normal 11.5-14.5 [facility] Comment on above: Performed By: #### L [id number], [id number] ####Registered Nurse Step Down: NED PAK ([id number])[facility] ([facility])[address] [place] [address] ERYTHROCYTE MEAN CORPUSCULAR HEMOGLOBIN CONCENTRATION (G/DL) BY AUTOMATED 32.9 % Normal 32.0-36.0 [facility] Comment on above: Performed By: #### L [id number], [id number] ####Registered Nurse Step Down: NED PAK ([id number])[facility] ([facility])[address] [place] [address] Hematocrit (Bld) [Volume fraction] 22.8 % Low 35.0-47.0 [facility] Comment on above: Performed By: #### L [id number], [id number] ####Registered Nurse Step Down: NED PAK ([id number])[address] Hemoglobin (Bld) [Mass/Vol] 7.5 g/dL Low 11.7-16.0 [facility] Comment on above: Performed By: #### L [id number], [id number] ####Registered Nurse Step Down: NED PAK ([id number])[facility])[address] [place] [address] MCH (RBC) [Entitic mass] 29.0 pg Normal 26.0-34.0 [facility] Comment on above: Performed By: #### L [id number], [id number] ####Registered Nurse Step Down: NED PAK ([id number])[address] MCV (RBC) [Entitic vol] 88.2 fL Normal 80.0-98.0 [facility] Comment on above: Performed By: #### L [id number], [id number] ####Registered Nurse Step Down: NED PAK ([id number])[address] NRBC (PER 100 WBCS) BY AUTOMATED COUNT 0.2 /100 WBCs Normal 0.0-2.0 [facility] Comment on above: Performed By: #### L [id number], [id number] ####Registered Nurse Step Down: NED PAK ([phone])[facility])[address] [place] [address] Platelet mean volume (Bld) [Entitic vol] 7.5 fL Normal 7.4-12.4 [facility] Comment on above: Performed By: #### L [id number], [id number] ####Registered Nurse Step Down: NED PAK ([id number])[address] PLATELETS (10*3/UL) IN BLOOD AUTOMATED COUNT 349 10*3/uL Normal 140-440 [facility] Comment on above: Performed By: #### L [id number], [id number] ####Registered Nurse Step Down: NED PAK ([phone])[facility])[address] [place] [address] RBC (Bld) [#/Vol] 2.59 10*6/uL Low 3.8-5.20 [facility] Comment on above: Performed By: #### L [id number], [id number] ####Registered Nurse Step Down: NED PAK ([id number])[facility])[address] [place] [address] WBC (Bld) [#/Vol] 15.8 10*3/uL High 3.6-10.7 [facility] Comment on above: Performed By: #### Tameka [id number], [id number] ####Registered Nurse Step Down: NED PAK ([phone])[facility])[address] [place] [address] MANUAL DIFFERENTIALon 2022 ANISOCYTOSIS PRESENCE IN BLOOD BY LIGHT MICROSCOPY Slight Abnormal (none) [facility] Comment on above: Performed By: #### Tameka [id number], [id number] ####Registered Nurse Step Down: NED PAK ([phone])[facility])[address] [place] [address] BAND NEUTROPHILS (10*3/UL) BLOOD MANUAL COUNT 0.8 10*3/uL High <=0.0 [facility] Comment on above: Performed By: #### L [id number], [id number] ####Registered Nurse Step Down: NED PAK ([id number])[facility])[address] [place] [address] BAND NEUTROPHILS TOTAL PER COUNTED LEUKOCYTES BY MANUAL COUNT 5 Normal [facility] Comment on above: Performed By: #### L [id number], [id number] ####Registered Nurse Step Down: NED PAK ([id number])[facility])[address] [place] [address] CELLS COUNTED TOTAL (#) IN BLOOD 100 Normal [facility] Comment on above: Performed By: #### L [id number], [id number] ####Registered Nurse Step Down: NED PAK ([phone])[address] DIFFERENTIAL METHOD Manual differential performed Normal [facility] Comment on above: Performed By: #### L [id number], [id number] ####Registered Nurse Step Down: NED PAK ([phone])[facility])[address] [place] [address] LEUKOCYTE MORPHOLOGY FINDING IN BLOOD Normal Normal [facility] Comment on above: Performed By: #### L [id number], [id number] ####Registered Nurse Step Down: NED PAK ([phone])[address] LEUKOCYTES (10*3/UL) NUCLEATED ERYTHROCYTE ADJUST 15.8 10*3/uL High 3.6-10.7 [facility] Comment on above: Performed By: #### L [id number], [id number] ####Registered Nurse Step Down: NED PAK ([phone])[facility])[address] [place] [address] LYMPHOCYTES (10*3/UL) IN BLOOD BY MANUAL COUNT 1.9 10*3/uL Normal 1.0-4.3 [facility] Comment on above: Performed By: #### Tameka [id number], [id number] ####Registered Nurse Step Down: NED PAK ([phone])[facility])[address] [place] [address] LYMPHOCYTES TOTAL PER COUNTED LEUKOCYTES BY MANUAL COUNT 12 Normal [facility] Comment on above: Performed By: #### L [id number], [id number] ####Registered Nurse Step Down: NED PAK ([phone])[facility])[address] [place] [address] LYMPHOCYTES/100 LEUKOCYTES IN BLOOD BY MANUAL COUNT 12 % Low 20-40 [facility] Comment on above: Performed By: #### L [id number], [id number] ####Registered Nurse Step Down: NED PAK ([phone])[facility] [place] [address] [place] METAMYELOCYTES (10*3/UL) IN BLOOD BY MANUAL COUNT 0.2 10*3/uL High <=0.0 [facility] Comment on above: Performed By: #### L [id number], [id number] ####Registered Nurse Step Down: NED PAK ([phone])[facility] ([facility])[address] [place] [address] [place] METAMYELOCYTES TOTAL PER COUNTED LEUKOCYTES BY MANUAL COUNT 1 Normal [facility] Comment on above: Performed By: #### L [id number], [id number] ####Registered Nurse Step Down: NED PAK ([phone])[facility] ([facility])[address] [place] [address] [place] METAMYELOCYTES/100 LEUKOCYTES IN BLOOD BY MANUAL COUNT 1 % High <=0 [facility] Comment on above: Performed By: #### L [id number], [id number] ####Registered Nurse Step Down: NED PAK ([id number])[facility] [place] [address] [place] MONOCYTES (10*3/UL) IN BLOOD BY MANUAL COUNT 1.1 10*3/uL High 0.0-0.8 [facility] Comment on above: Performed By: #### L [id number], [id number] ####Registered Nurse Step Down: NED PAK ([phone])[facility] ([facility])[address] [place] [address] [place] MONOCYTES TOTAL PER COUNTED LEUKOCYTES BY MANUAL COUNT 7 Normal [facility] Comment on above: Performed By: #### L [id number], [id number] ####Registered Nurse Step Down: NED PAK ([phone])[facility] ([facility])[address] [place] [address] [place] MONOCYTES/100 LEUKOCYTES IN BLOOD BY MANUAL COUNT 7 % Normal 2-10 [facility] Comment on above: Performed By: #### L [id number], [id number] ####Registered Nurse Step Down: NED PAK ([id number])[facility] ([facility])[address] [place] [address] [place] NEUTROPHILS (SEGS+BANDS) (10*3/UL) BY MANUAL COUNT 12.6 10*3/uL High 1.8-7.0 [facility] Comment on above: Performed By: #### L [id number], [id number] ####Registered Nurse Step Down: NED PAK ([id number])[facility] ([facility])[address] [place] [address] [place] NEUTROPHILS BAND FORM/100 LEUKOCYTES IN BLOOD BY MANUAL COUNT 5 % High <=0 [facility] Comment on above: Performed By: #### L [id number], [id number] ####Registered Nurse Step Down: NED PAK ([phone])[facility])[address] [place] [address] NEUTROPHILS TOTAL PER COUNTED LEUKOCYTES BY MANUAL COUNT 75 Normal [facility] Comment on above: Performed By: #### L [id number], [id number] ####Registered Nurse Step Down: NED PAK ([phone])[facility] ([facility])[address] [place] [address] [place] NUCLEATED ERYTHROCYTES/100 LEUKOCYTES IN BLOOD BY MANUAL COUNT 1 % Normal [facility] Comment on above: Performed By: #### L [id number], [id number] ####Registered Nurse Step Down: NED PAK ([id number])[facility] ([facility])[address] [place] [address] [place] OVALOCYTES PRESENCE IN BLOOD BY LIGHT MICROSCOPY Slight Abnormal (none) [facility] Comment on above: Performed By: #### L [id number], [id number] ####Registered Nurse Step Down: NED PAK ([id number])[facility] ([facility])[address] [place] [address] [place] PLATELET MORPHOLOGY IN BLOOD Normal Normal [facility] Comment on above: Performed By: #### L [id number], [id number] ####Registered Nurse Step Down: NED PAK ([id number])[facility] ([facility])[address] [place] [address] [place] POIKILOCYTOSIS (PRESENCE) IN BLOOD BY LIGHT MICROSCOPY Slight Abnormal (none) [facility] Comment on above: Performed By: #### L [id number], [id number] ####Registered Nurse Step Down: NED PAK ([phone])[facility])[address] [place] [address] POLYCHROMASIA IN BLOOD BY LIGHT MICROSCOPY Slight Abnormal (none) [facility] Comment on above: Performed By: #### L [id number], [id number] ####Registered Nurse Step Down: NED PAK ([phone])[facility] ([facility])[address] [place] [address] SEGEMENTED NEUTROPHILS/100 LEUKOCYTES BY MANUAL COUNT 75 % Normal 40-80 [facility] Comment on above: Performed By: #### L [id number], [id number] ####Registered Nurse Step Down: NED PAK ([id number])[facility] ([facility])[address] [place] [address] SEGMENTED NEUTROPHILS (10*3/UL)IN BLOOD BY MANUAL COUNT 12.6 10*3/uL High 1.8-7.0 [facility] Comment on above: Performed By: #### L [id number], [id number] ####Registered Nurse Step Down: NED PAK ([phone])[facility])[address] [place] [address] Nursing Noteon 12-24-2022 Nursing Note Pt to 3N at this ryland e with all belongings Normal [facility] Progress Noteon 12-24-2022 Progress Note Normal [facility] Progress Note Normal [facility] Progress Note Normal [facility] Progress Note Normal [facility] BASIC METABOLIC PANELon 10-0 Anion gap [Moles/Vol] 6 mmol/L Normal 3-13 [facility] Comment on above: Performed By: #### L AB40, LAB15 ####Registered Nurse Step Down: NED PAK ([id number])[facility])[address] [place] [address] Calcium [Mass/Vol] 8.4 mg/dL Normal 8.4-10.4 [facility] Comment on above: Performed By: #### L AB40, LAB15 ####Registered Nurse Step Down: NED PAK ([phone])[facility] ([facility])[address] [place] [address] [place] Chloride [Moles/Vol] 109 mmol/L High 98-107 [facility] Comment on above: Performed By: #### L AB40, LAB15 ####Registered Nurse Step Down: NED PAK ([id number])[facility] ([facility])[address] [place] [address] [place] CO2 [Moles/Vol] 27 mmol/L Normal 22-30 [facility] Comment on above: Performed By: #### L AB40, LAB15 ####Registered Nurse Step Down: NED PAK ([phone])[facility])[address] [place] [address] Creatinine [Mass/Vol] 0.71 mg/dL Normal 0.52-1.04 [facility] Comment on above: Performed By: #### L AB40, LAB15 ####Registered Nurse Step Down: NED PAK ([id number])[facility] ([facility])[address] [place] [address] GLOMERULAR FILTRATION RATE ML/MIN/1.73 SQ M.PREDICTED 76.0 mL/min/1.73m*2 Normal >60.0 [facility] Comment on above: Result Comment: Calc ulation based on the Chronic Kidney Disease Epidemiology Collaboration (CKD-EPI) equation refit without adjustment for race Performed By: #### L AB40, LAB15 ####Registered Nurse Step Down: NED PAK ([id number])[facility] ([facility])[address] [place] [address] [place] Glucose [Mass/Vol] 125 mg/dL High 70-100 [facility] Comment on above: Performed By: #### L AB40, LAB15 ####Registered Nurse Step Down: NED PAK ([phone])[facility])[address] [place] [address] Potassium [Moles/Vol] 3.6 mmol/L Normal 3.5-5.1 [facility] Comment on above: Performed By: #### L AB40, LAB15 ####Registered Nurse Step Down: NED PAK ([phone])[address] Sodium [Moles/Vol] 141 mmol/L Normal 135-145 [facility] Comment on above: Performed By: #### L AB40, LAB15 ####Registered Nurse Step Down: NED PAK ([id number])[address] Urea nitrogen [Mass/Vol] 29 mg/dL High 7-17 [facility] Comment on above: Performed By: #### L AB40, LAB15 ####Registered Nurse Step Down: NED PAK ([id number])[address] C. DIFFICILE BY PCR WITH REF MALENA TO EIAon 12-23-2022 C. DIFFICILE BY PCR WITH REFLEX TO EIA C. DIFFICILE TOXIN PCR Reference Not Detected Not Detected ORDER COMMENTS: C. difficile infection is unlikely to be present. Methodology: Real-time PCR Normal [facility] Comment on above: Performed By: #### L [id number] ####Registered Nurse Step Down: NED PAK ([id number])[address] CARECOORDon 12-23-2022 CARECOORD Normal [facility] CBC WITH AUTO DIFFERENTIALon 12-23-2022 Erythrocyte distribution width (RBC) [Ratio] 14.1 % Normal 11.5-14.5 [facility] Comment on above: Performed By: #### L [id number], [id number] ####Registered Nurse Step Down: NED PAK ([id number])[address] ERYTHROCYTE MEAN CORPUSCULAR HEMOGLOBIN CONCENTRATION (G/DL) BY AUTOMATED 33.1 % Normal 32.0-36.0 [facility] Comment on above: Performed By: #### L [id number], [id number] ####Registered Nurse Step Down: NED [id number])[address] Hematocrit (Bld) [Volume fraction] 23.2 % Low 35.0-47.0 [facility] Comment on above: Performed By: #### L [id number], [id number] ####Registered Nurse Step Down: NED PAK ([id number])[address] Hemoglobin (Bld) [Mass/Vol] 7.7 g/dL Low 11.7-16.0 [facility] Comment on above: Performed By: #### L [id number], [id number] ####Registered Nurse Step Down: NED PAK ([id number])[address] MCH (RBC) [Entitic mass] 29.0 pg Normal 26.0-34.0 [facility] Comment on above: Performed By: #### Tameka [id number], [id number] ####Registered Nurse Step Down: NED PAK ([id number])[facility])[address] [place] [address] MCV (RBC) [Entitic vol] 87.7 fL Normal 80.0-98.0 [facility] Comment on above: Performed By: #### L [id number], [id number] ####Registered Nurse Step Down: NED PAK ([id number])[address] Platelet mean volume (Bld) [Entitic vol] 7.2 fL Low 7.4-12.4 [facility] Comment on above: Performed By: #### L [id number], [id number] ####Registered Nurse Step Down: NED PAK ([id number])[address] PLATELETS (10*3/UL) IN BLOOD AUTOMATED COUNT 312 10*3/uL Normal 140-440 [facility] Comment on above: Performed By: #### L [id number], [id number] ####Registered Nurse Step Down: NED [id number])[facility] [place] [address] RBC (Bld) [#/Vol] 2.65 10*6/uL Low 3.8-5.20 [facility] Comment on above: Performed By: #### L [id number], [id number] ####Registered Nurse Step Down: NED PAK ([id number])[facility] ([facility])[address] [place] [address] WBC (Bld) [#/Vol] 17.0 10*3/uL High 3.6-10.7 [facility] Comment on above: Performed By: #### L [id number], [id number] ####Registered Nurse Step Down: NED PAK ([phone])[facility] ([facility])[address] [place] [address] COMPLETE URINALYSISon 2022 BACTERIA (#/HPF) IN URINE Negative Normal Negative [facility] Comment on above: Performed By: #### L [id number] ####Registered Nurse Step Down: NED PAK ([phone])[facility] ([facility])[address] [place] [address] BILIRUBIN, TOTAL PRESENCE IN URINE Negative Normal Negative [facility] Comment on above: Performed By: #### L [id number] ####Registered Nurse Step Down: NED PAK ([phone])[facility] ([facility])[address] [place] [address] Clarity (U) Clear Normal Clear [facility] Comment on above: Performed By: #### L [id number] ####Registered Nurse Step Down: NED PAK ([id number])[facility])[address] [place] [address] Color (U) Light Yellow Normal Lt. Yellow [facility] Comment on above: Performed By: #### L [id number] ####Registered Nurse Step Down: NED PAK ([phone])[facility] ([facility])[address] [place] [address] GLUCOSE (MG/DL) IN URINE Normal Normal Normal (<70) [facility] Comment on above: Performed By: #### L [id number] ####Registered Nurse Step Down: NED PAK ([phone])[facility] ([facility])[address] [place] [address] HEMOGLOBIN PRESENCE IN URINE Negative Normal Negative [facility] Comment on above: Performed By: #### L [id number] ####Registered Nurse Step Down: NED PAK ([phone])[facility] ([facility])[address] [place] [address] Ketones Ql (U) Negative Normal Negative [facility] Comment on above: Performed By: #### L [id number] ####Registered Nurse Step Down: NED PAK ([phone])[facility])[address] [place] [address] LEUKOCYTE ESTERASE PRESENCE IN URINE BY TEST STRIP 75 Danielito/uL Abnormal Negative [facility] Comment on above: Performed By: #### L [id number] ####Registered Nurse Step Down: NED PAK ([phone])[facility] ([facility])[address] [place] [address] MUCUS (#/LPF) IN URINE SEDIMENT Few Normal Negative [facility] Comment on above: Performed By: #### L [id number] ####Registered Nurse Step Down: NED PAK ([phone])[facility] ([facility])[address] [place] [address] NITRITE PRESENCE IN URINE Negative Normal Negative [facility] Comment on above: Performed By: #### L [id number] ####Registered Nurse Step Down: NED PAK ([id number])[facility] ([facility])[address] [place] [address] pH (U) 7.0 [pH] Normal 5.0-8.0 [facility] Comment on above: Performed By: #### L [id number] ####Registered Nurse Step Down: NED PAK ([id number])[facility] ([facility])[address] [place] [address] Protein (U) [Mass/Vol] 30 mg/dL Abnormal Negative [facility] Comment on above: Performed By: #### L [id number] ####Registered Nurse Step Down: NED PAK ([phone])[facility] ([facility])[address] [place] [address] RBC (#/HPF) IN URINE SEDIMENT 3-5 Abnormal 0-2 [facility] Comment on above: Performed By: #### L [id number] ####Registered Nurse Step Down: NED PAK ([phone])[facility] ([facility])[address] [place] [address] Specific gravity (U) [Rel density] 1.020 Normal 1.005-1.03 0 [facility] Comment on above: Performed By: #### L [id number] ####Registered Nurse Step Down: NED PAK ([phone])[facility] ([facility])[address] [place] [address] SQUAMOUS EPITHELIAL CELLS (#/HPF) IN URINE SEDIMENT Negative Normal 3-5 [facility] Comment on above: Performed By: #### L [id number] ####Registered Nurse Step Down: NED PAK ([phone])[facility] ([facility])[address] [place] [address] UROBILINOGEN (MG/DL) IN URINE Normal Normal Normal (0-1) [facility] Comment on above: Performed By: #### L [id number] ####Registered Nurse Step Down: NED PAK ([phone])[facility] ([facility])[address] [place] [address] WBC (LEUKOCYTE) (#/HPF) IN URINE SEDIMENT 26-50 Abnormal 0-5 [facility] Comment on above: Performed By: #### L [id number] ####Registered Nurse Step Down: NED PAK ([phone])[facility] ([facility])[address] [place] [address] MANUAL DIFFERENTIALon 2022 BAND NEUTROPHILS (10*3/UL) BLOOD MANUAL COUNT 0.5 10*3/uL High <=0.0 [facility] Comment on above: Performed By: #### L [id number], [id number] ####Registered Nurse Step Down: NED PAK ([phone])[facility] ([facility])[address] [place] [address] [place] BAND NEUTROPHILS TOTAL PER COUNTED LEUKOCYTES BY MANUAL COUNT 3 Normal [facility] Comment on above: Performed By: #### L [id number], [id number] ####Registered Nurse Step Down: NED PAK ([phone])[facility] ([facility])[address] [place] [address] CELLS COUNTED TOTAL (#) IN BLOOD 100 Normal [facility] Comment on above: Performed By: #### L [id number], [id number] ####Registered Nurse Step Down: NED PAK ([phone])[facility] ([facility])[address] [place] [address] DIFFERENTIAL METHOD Manual differential performed Normal [facility] Comment on above: Performed By: #### L [id number], [id number] ####Registered Nurse Step Down: NED PAK ([phone])[facility] ([facility])[address] [place] [address] [place] EOSINOPHILS (10*3/UL) IN BLOOD BY MANUAL COUNT 0.2 10*3/uL Normal 0.0-0.5 [facility] Comment on above: Performed By: #### L [id number], [id number] ####Registered Nurse Step Down: NED PAK ([phone])[facility] ([facility])[address] [place] [address] [place] EOSINOPHILS TOTAL PER COUNTED LEUKOCYTES BY MANUAL COUNT 1 Normal 0-1 [facility] Comment on above: Performed By: #### L [id number], [id number] ####Registered Nurse Step Down: NED PAK ([phone])[facility] ([facility])[address] [place] [address] [place] EOSINOPHILS/100 LEUKOCYTES IN BLOOD BY MANUAL COUNT 1 % Normal 1-6 [facility] Comment on above: Performed By: #### L [id number], [id number] ####Registered Nurse Step Down: NED PAK ([id number])[facility] ([facility])[address] [place] [address] [place] HYPERSEGMENTED NEUTROPHILS IN BLOOD BY LIGHT MICROSCOPY (PRESENT) Present Abnormal (none) [facility] Comment on above: Performed By: #### L [id number], [id number] ####Registered Nurse Step Down: NED PAK ([phone])[facility])[address] [place] [address] [place] LEUKOCYTES (10*3/UL) NUCLEATED ERYTHROCYTE ADJUST 17.0 10*3/uL High 3.6-10.7 [facility] Comment on above: Performed By: #### L [id number], [id number] ####Registered Nurse Step Down: NED PAK ([phone])[facility])[address] [place] [address] [place] LYMPHOCYTES (10*3/UL) IN BLOOD BY MANUAL COUNT 3.7 10*3/uL Normal 1.0-4.3 [facility] Comment on above: Performed By: #### L [id number], [id number] ####Registered Nurse Step Down: NED PAK ([phone])[facility])[address] [place] [address] LYMPHOCYTES TOTAL PER COUNTED LEUKOCYTES BY MANUAL COUNT 22 Normal [facility] Comment on above: Performed By: #### Tameka [id number], [id number] ####Registered Nurse Step Down: NED PAK ([phone])[facility])[address] [place] [address] [place] LYMPHOCYTES/100 LEUKOCYTES IN BLOOD BY MANUAL COUNT 22 % Normal 20-40 [facility] Comment on above: Performed By: #### Tameka [id number], [id number] ####Registered Nurse Step Down: NED PAK ([phone])[facility])[address] [place] [address] [place] METAMYELOCYTES (10*3/UL) IN BLOOD BY MANUAL COUNT 0.3 10*3/uL High <=0.0 [facility] Comment on above: Performed By: #### L [id number], [id number] ####Registered Nurse Step Down: NED PAK ([phone])[facility])[address] [place] [address] [place] METAMYELOCYTES TOTAL PER COUNTED LEUKOCYTES BY MANUAL COUNT 2 Normal [facility] Comment on above: Performed By: #### L [id number], [id number] ####Registered Nurse Step Down: NED PAK ([phone])[facility])[address] [place] [address] [place] METAMYELOCYTES/100 LEUKOCYTES IN BLOOD BY MANUAL COUNT 2 % High <=0 [facility] Comment on above: Performed By: #### L [id number], [id number] ####Registered Nurse Step Down: NED PAK ([phone])[facility])[address] [place] [address] [place] MONOCYTES (10*3/UL) IN BLOOD BY MANUAL COUNT 0.3 10*3/uL Normal 0.0-0.8 [facility] Comment on above: Performed By: #### L [id number], [id number] ####Registered Nurse Step Down: NED PAK ([phone])[facility])[address] [place] [address] [place] MONOCYTES TOTAL PER COUNTED LEUKOCYTES BY MANUAL COUNT 2 Normal [facility] Comment on above: Performed By: #### L [id number], [id number] ####Registered Nurse Step Down: NED PAK ([phone])[facility])[address] [place] [address] [place] MONOCYTES/100 LEUKOCYTES IN BLOOD BY MANUAL COUNT 2 % Normal 2-10 [facility] Comment on above: Performed By: #### L [id number], [id number] ####Registered Nurse Step Down: NED PAK ([phone])[facility])[address] [place] [address] [place] NEUTROPHILS (SEGS+BANDS) (10*3/UL) BY MANUAL COUNT 12.4 10*3/uL High 1.8-7.0 [facility] Comment on above: Performed By: #### L [id number], [id number] ####Registered Nurse Step Down: NED PAK ([phone])[facility])[address] [place] [address] [place] NEUTROPHILS BAND FORM/100 LEUKOCYTES IN BLOOD BY MANUAL COUNT 3 % High <=0 [facility] Comment on above: Performed By: #### L [id number], [id number] ####Registered Nurse Step Down: NED PAK ([phone])[facility] ([facility])[address] [place] [address] [place] NEUTROPHILS TOTAL PER COUNTED LEUKOCYTES BY MANUAL COUNT 70 Normal [facility] Comment on above: Performed By: #### L [id number], [id number] ####Registered Nurse Step Down: NED PAK ([phone])[facility] ([facility])[address] [place] [address] [place] OVALOCYTES PRESENCE IN BLOOD BY LIGHT MICROSCOPY Slight Abnormal (none) [facility] Comment on above: Performed By: #### L [id number], [id number] ####Registered Nurse Step Down: NED PAK ([phone])[facility] ([facility])[address] [place] [address] PLATELET MORPHOLOGY IN BLOOD Normal Normal [facility] Comment on above: Performed By: #### L [id number], [id number] ####Registered Nurse Step Down: NED PAK ([phone])[facility] ([facility])[address] [place] [address] [place] POIKILOCYTOSIS (PRESENCE) IN BLOOD BY LIGHT MICROSCOPY Slight Abnormal (none) [facility] Comment on above: Performed By: #### L [id number], [id number] ####Registered Nurse Step Down: NED PAK ([phone])[facility] ([facility])[address] [place] [address] [place] POLYCHROMASIA IN BLOOD BY LIGHT MICROSCOPY Rare Abnormal (none) [facility] Comment on above: Performed By: #### L [id number], [id number] ####Registered Nurse Step Down: NED PAK ([id number])[facility] ([facility])[address] [place] [address] [place] SEGEMENTED NEUTROPHILS/100 LEUKOCYTES BY MANUAL COUNT 70 % Normal 40-80 [facility] Comment on above: Performed By: #### L [id number], [id number] ####Registered Nurse Step Down: NED PAK ([phone])[facility] ([facility])[address] [place] [address] [place] SEGMENTED NEUTROPHILS (10*3/UL)IN BLOOD BY MANUAL COUNT 12.4 10*3/uL High 1.8-7.0 [facility] Comment on above: Performed By: #### L [id number], [id number] ####Registered Nurse Step Down: NED PAK ([phone])[facility])[address] [place] [address] VACUOLATED NEUTROPHILS PRESENCE IN BLOOD BY LIGHT MICROSCOPY (PRESENT) Present Abnormal (none) [facility] Comment on above: Performed By: #### L [id number], [id number] ####Registered Nurse Step Down: NED PAK ([phone])[address] PROCALCITONIN TESTon 023 PROCALCITONIN 0.14 ng/mL High 0.00-0.09 [facility] Comment on above: Result Comment: ORDE R COMMENTS:PCT <0.50 = Low risk of severe sepsis and/or septic shock.PCT >2.00 = High risk of severe sepsis and/or septic shock. Performed By: #### L [id number] ####Registered Nurse Step Down: NED PAK ([phone])[address] Progress Noteon 12-23-2022 Progress Note Normal [facility] Progress Note Normal [facility] Progress [facility] Normal [facility] Progress Note Normal [facility] Progress Note Vancomycin therapy h as been discontinued by Dr. Howard on 12/23. Thank you for the consult. Pharmacy signing off for vancomycin dosing. [address] [facility], PharmD Date: 12/23/22 Time: 7:42 AM Normal [facility] Progress Note Normal [facility] URINE CULTUREon 12-23-2022 Bacteria identified Cx Nom (U) Normal [facility] Comment on above: Performed By: #### L [id number] ####Registered Nurse Step Down: NED PAK ([phone])[address] VANCOMYCIN, RANDOMon 023 VANCOMYCIN 5.3 ug/mL Low 15.0-20.0 [facility] Comment on above: Order Comment: Alphonse gonzalez draw random vancomycin level @ 0400 on 12-23-22. Thank you. Performed By: #### L AB40, LAB15 ####Registered Nurse Step Down: NED PAK ([phone])[facility] ([facility])[address] [place] [address] XR CHEST 1 VIEWon 12-23-2022 XR CHEST 1 VIEW Normal [facility] ANTI-XA LEVEL, LMWHon 2022 ANTI-XA TREATMENT INDICATION Prophylactic Normal [facility] Comment on above: Performed By: #### L [id number] ####Registered Nurse Step Down: NED PAK ([phone])[facility] ([facility])[address] [place] [address] ANTI-XA, LMWH/UFH 0.4 IU/mL Normal 0.2-0.5 [Prophylac tic] [facility] Comment on above: Performed By: #### L [id number] ####Registered Nurse Step Down: NED PAK ([phone])[facility] ([facility])[address] [place] [address] APTTon 12-22-2022 aPTT Coag (Bld) [Time] 25.2 s Normal 20.0-30.5 [facility] Comment on above: Result Comment: SANDRA Baker COMMENTS:NOTE: The therapeutic time for Heparin anticoagulation, based on Xa activity inhibition, is an APTT of 46-80 seconds. Performed By: #### L [id number] ####Registered Nurse Step Down: NED PAK ([phone])[facility] ([facility])[address] [place] [address] BASIC METABOLIC PANELon 10-0 Anion gap [Moles/Vol] 7 mmol/L Normal 3-13 [facility] Comment on above: Performed By: #### L AB40, LAB15 ####Registered Nurse Step Down: NED PAK ([phone])[facility] ([facility])[address] [place] [address] Calcium [Mass/Vol] 8.3 mg/dL Low 8.4-10.4 [facility] Comment on above: Performed By: #### L AB40, LAB15 ####Registered Nurse Step Down: NED PAK ([phone])[facility] ([facility])[address] [place] [address] Chloride [Moles/Vol] 110 mmol/L High 98-107 [facility] Comment on above: Performed By: #### L AB40, LAB15 ####Registered Nurse Step Down: NED PAK ([phone])[facility] ([facility])[address] [place] [address] CO2 [Moles/Vol] 27 mmol/L Normal 22-30 [facility] Comment on above: Performed By: #### L AB40, LAB15 ####Registered Nurse Step Down: NED PAK ([phone])[facility] ([facility])[address] [place] [address] Creatinine [Mass/Vol] 0.50 mg/dL Low 0.52-1.04 [facility] Comment on above: Performed By: #### L AB40, LAB15 ####Registered Nurse Step Down: NED PAK ([phone])[facility] ([facility])[address] [place] [address] GLOMERULAR FILTRATION RATE ML/MIN/1.73 SQ M.PREDICTED 83.8 mL/min/1.73m*2 Normal >60.0 [facility] Comment on above: Result Comment: Calc ulation based on the Chronic Kidney Disease Epidemiology Collaboration (CKD-EPI) equation refit without adjustment for race Performed By: #### L AB40, LAB15 ####Registered Nurse Step Down: NED PAK ([phone])[facility] ([facility])[address] [place] [address] [place] Glucose [Mass/Vol] 136 mg/dL High 70-100 [facility] Comment on above: Performed By: #### L AB40, LAB15 ####Registered Nurse Step Down: NED PAK ([phone])[facility])[address] [place] [address] [place] Potassium [Moles/Vol] 3.8 mmol/L Normal 3.5-5.1 [facility] Comment on above: Performed By: #### L AB40, LAB15 ####Registered Nurse Step Down: NED PAK ([phone])[facility])[address] [place] [address] Sodium [Moles/Vol] 143 mmol/L Normal 135-145 [facility] Comment on above: Performed By: #### L AB40, LAB15 ####Registered Nurse Step Down: NED PAK ([phone])[facility] ([facility])[address] [place] [address] Urea nitrogen [Mass/Vol] 21 mg/dL High 7-17 [facility] Comment on above: Performed By: #### L AB40, LAB15 ####Registered Nurse Step Down: NED PAK ([phone])[facility])[address] [place] [address] CARECOORDon 12-22-2022 CARECOORD Normal [facility] CARECOORD Normal [facility] CBC WITH AUTO DIFFERENTIALon 12-22-2022 Erythrocyte distribution width (RBC) [Ratio] 13.9 % Normal 11.5-14.5 [facility] Comment on above: Performed By: #### L [id number], [id number] ####Registered Nurse Step Down: NED PAK ([phone])[facility])[address] [place] [address] ERYTHROCYTE MEAN CORPUSCULAR HEMOGLOBIN CONCENTRATION (G/DL) BY AUTOMATED 34.2 % Normal 32.0-36.0 [facility] Comment on above: Performed By: #### L [id number], [id number] ####Registered Nurse Step Down: NED PAK ([phone])[facility])[address] [place] [address] Hematocrit (Bld) [Volume fraction] 24.0 % Low 35.0-47.0 [facility] Comment on above: Performed By: #### L [id number], [id number] ####Registered Nurse Step Down: NED PAK ([phone])[facility])[address] [place] [address] Hemoglobin (Bld) [Mass/Vol] 8.2 g/dL Low 11.7-16.0 [facility] Comment on above: Performed By: #### L [id number], [id number] ####Registered Nurse Step Down: NED PAK ([phone])[facility])[address] [place] [address] MCH (RBC) [Entitic mass] 29.7 pg Normal 26.0-34.0 [facility] Comment on above: Performed By: #### L [id number], [id number] ####Registered Nurse Step Down: NED PAK ([phone])[facility])[address] [place] [address] MCV (RBC) [Entitic vol] 87.1 fL Normal 80.0-98.0 [facility] Comment on above: Performed By: #### Tameka [id number], [id number] ####Registered Nurse Step Down: NED PAK ([id number])[facility])[address] [place] [address] NRBC (PER 100 WBCS) BY AUTOMATED COUNT 0.1 /100 WBCs Normal 0.0-2.0 [facility] Comment on above: Performed By: #### L [id number], [id number] ####Registered Nurse Step Down: NED PAK ([phone])[facility])[address] [place] [address] Platelet mean volume (Bld) [Entitic vol] 7.6 fL Normal 7.4-12.4 [facility] Comment on above: Performed By: #### L [id number], [id number] ####Registered Nurse Step Down: NED PAK ([phone])[facility])[address] [place] [address] PLATELETS (10*3/UL) IN BLOOD AUTOMATED COUNT 244 10*3/uL Normal 140-440 [facility] Comment on above: Performed By: #### L [id number], [id number] ####Registered Nurse Step Down: NED PAK ([phone])[facility] ([facility])[address] [place] [address] RBC (Bld) [#/Vol] 2.76 10*6/uL Low 3.8-5.20 [facility] Comment on above: Performed By: #### L [id number], [id number] ####Registered Nurse Step Down: NED PAK ([phone])[facility] ([facility])[address] [place] [address] WBC (Bld) [#/Vol] 15.6 10*3/uL High 3.6-10.7 [facility] Comment on above: Performed By: #### L [id number], [id number] ####Registered Nurse Step Down: NED PAK ([phone])[facility] ([facility])[address] [place] [address] COMPLETE URINALYSISon 2022 BACTERIA (#/HPF) IN URINE Few Abnormal Negative [facility] Comment on above: Performed By: #### L [id number] ####Registered Nurse Step Down: NED PAK ([phone])[facility] ([facility])[address] [place] [address] BILIRUBIN, TOTAL PRESENCE IN URINE Negative Normal Negative [facility] Comment on above: Performed By: #### L [id number] ####Registered Nurse Step Down: NED PAK ([phone])[facility])[address] [place] [address] Clarity (U) Clear Normal Clear [facility] Comment on above: Performed By: #### L [id number] ####Registered Nurse Step Down: NED PAK ([phone])[facility])[address] [place] [address] Color (U) Light Yellow Normal Lt. Yellow [facility] Comment on above: Performed By: #### L [id number] ####Registered Nurse Step Down: NED PAK ([phone])[facility])[address] [place] [address] GLUCOSE (MG/DL) IN URINE Normal Normal Normal (<70) [facility] Comment on above: Performed By: #### L [id number] ####Registered Nurse Step Down: NED PAK ([phone])[facility])[address] [place] [address] HEMOGLOBIN PRESENCE IN URINE 0.1 mg/dL Abnormal Negative [facility] Comment on above: Performed By: #### L [id number] ####Registered Nurse Step Down: NED PAK ([id number])[facility] ([facility])[address] [place] [address] HYALINE CASTS (#/LPF) IN URINE SEDIMENT BY MICROSCOPY Negative Normal Negative [facility] Comment on above: Performed By: #### L [id number] ####Registered Nurse Step Down: NED PAK ([id number])[facility] ([facility])[address] [place] [address] Ketones Ql (U) Negative Normal Negative [facility] Comment on above: Performed By: #### L [id number] ####Registered Nurse Step Down: NED PAK ([id number])[facility] ([facility])[address] [place] [address] LEUKOCYTE ESTERASE PRESENCE IN URINE BY TEST STRIP Negative Normal Negative [facility] Comment on above: Performed By: #### L [id number] ####Registered Nurse Step Down: NED PAK ([id number])[facility] ([facility])[address] [place] [address] NITRITE PRESENCE IN URINE Negative Normal Negative [facility] Comment on above: Performed By: #### L [id number] ####Registered Nurse Step Down: NED PAK ([id number])[facility] ([facility])[address] [place] [address] pH (U) 7.0 [pH] Normal 5.0-8.0 [facility] Comment on above: Performed By: #### L [id number] ####Registered Nurse Step Down: NED PAK ([phone])[facility] ([facility])[address] [place] [address] Protein (U) [Mass/Vol] 20 mg/dL Abnormal Negative [facility] Comment on above: Performed By: #### L [id number] ####Registered Nurse Step Down: NED PAK ([id number])[facility])[address] [place] [address] RBC (#/HPF) IN URINE SEDIMENT 11-25 Abnormal 0-2 [facility] Comment on above: Performed By: #### L [id number] ####Registered Nurse Step Down: NED PAK ([id number])[facility])[address] [place] [address] Specific gravity (U) [Rel density] 1.016 Normal 1.005-1.03 0 [facility] Comment on above: Performed By: #### L [id number] ####Registered Nurse Step Down: NED PAK ([id number])[facility])[address] [place] [address] SQUAMOUS EPITHELIAL CELLS (#/HPF) IN URINE SEDIMENT Negative Normal 3-5 [facility] Comment on above: Performed By: #### L [id number] ####Registered Nurse Step Down: NED PAK ([id number])[facility])[address] [place] [address] UROBILINOGEN (MG/DL) IN URINE Normal Normal Normal (0-1) [facility] Comment on above: Performed By: #### L [id number] ####Registered Nurse Step Down: NED PAK ([id number])[facility])[address] [place] [address] WBC (LEUKOCYTE) (#/HPF) IN URINE SEDIMENT 6-10 Abnormal 0-5 [facility] Comment on above: Performed By: #### L [id number] ####Registered Nurse Step Down: NED PAK ([id number])[facility])[address] [place] [address] MANUAL DIFFERENTIALon 2022 CELLS COUNTED TOTAL (#) IN BLOOD 100 Normal [facility] Comment on above: Performed By: #### L [id number], [id number] ####Registered Nurse Step Down: NED PAK ([id number])[facility] [place] [address] [place] DIFFERENTIAL METHOD Manual differential performed Normal [facility] Comment on above: Performed By: #### L [id number], [id number] ####Registered Nurse Step Down: NED PAK ([phone])[facility] ([facility])[address] [place] [address] LEUKOCYTES (10*3/UL) NUCLEATED ERYTHROCYTE ADJUST 15.6 10*3/uL High 3.6-10.7 [facility] Comment on above: Performed By: #### L [id number], [id number] ####Registered Nurse Step Down: NED PAK ([id number])[facility] ([facility])[address] [place] [address] LYMPHOCYTES (10*3/UL) IN BLOOD BY MANUAL COUNT 1.7 10*3/uL Normal 1.0-4.3 [facility] Comment on above: Performed By: #### L [id number], [id number] ####Registered Nurse Step Down: NED PAK ([id number])[facility] [place] [address] LYMPHOCYTES TOTAL PER COUNTED LEUKOCYTES BY MANUAL COUNT 11 Normal [facility] Comment on above: Performed By: #### L [id number], [id number] ####Registered Nurse Step Down: NED PAK ([id number])[facility] ([facility])[address] [place] [address] [place] LYMPHOCYTES/100 LEUKOCYTES IN BLOOD BY MANUAL COUNT 11 % Low 20-40 [facility] Comment on above: Performed By: #### L [id number], [id number] ####Registered Nurse Step Down: NED PAK ([id number])[facility] ([facility])[address] [place] [address] [place] MONOCYTES (10*3/UL) IN BLOOD BY MANUAL COUNT 0.3 10*3/uL Normal 0.0-0.8 [facility] Comment on above: Performed By: #### L [id number], [id number] ####Registered Nurse Step Down: NED PAK ([id number])[facility] ([facility])[address] [place] [address] [place] MONOCYTES TOTAL PER COUNTED LEUKOCYTES BY MANUAL COUNT 2 Normal [facility] Comment on above: Performed By: #### L [id number], [id number] ####Registered Nurse Step Down: NED PAK ([id number])[facility])[address] [place] [address] [place] MONOCYTES/100 LEUKOCYTES IN BLOOD BY MANUAL COUNT 2 % Normal 2-10 [facility] Comment on above: Performed By: #### L [id number], [id number] ####Registered Nurse Step Down: NED PAK ([phone])[facility])[address] [place] [address] [place] MYELOCYTES (10*3/UL) IN BLOOD BY MANUAL COUNT 0.2 10*3/uL High <=0.0 [facility] Comment on above: Performed By: #### L [id number], [id number] ####Registered Nurse Step Down: NED PAK ([id number])[facility] ([facility])[address] [place] [address] [place] MYELOCYTES COUNTED BY MANUAL COUNT 1 Normal [facility] Comment on above: Performed By: #### L [id number], [id number] ####Registered Nurse Step Down: NED PAK ([id number])[facility])[address] [place] [address] [place] MYELOCYTES/100 LEUKOCYTES IN BLOOD BY MANUAL COUNT 1 % High <=0 [facility] Comment on above: Performed By: #### L [id number], [id number] ####Registered Nurse Step Down: NED PAK ([id number])[facility])[address] [place] [address] [place] NEUTROPHILS (SEGS+BANDS) (10*3/UL) BY MANUAL COUNT 13.4 10*3/uL High 1.8-7.0 [facility] Comment on above: Performed By: #### L [id number], [id number] ####Registered Nurse Step Down: NED PAK ([id number])[facility] ([facility])[address] [place] [address] [place] NEUTROPHILS TOTAL PER COUNTED LEUKOCYTES BY MANUAL COUNT 86 Normal [facility] Comment on above: Performed By: #### L [id number], [id number] ####Registered Nurse Step Down: NED PAK ([id number])[facility])[address] [place] [address] [place] NUCLEATED ERYTHROCYTES/100 LEUKOCYTES IN BLOOD BY MANUAL COUNT 2 % Normal [facility] Comment on above: Performed By: #### L [id number], [id number] ####Registered Nurse Step Down: NED PAK ([id number])[facility] ([facility])[address] [place] [address] OVALOCYTES PRESENCE IN BLOOD BY LIGHT MICROSCOPY Slight Abnormal (none) [facility] Comment on above: Performed By: #### L [id number], [id number] ####Registered Nurse Step Down: NED PAK ([phone])[facility])[address] [place] [address] PLATELET MORPHOLOGY IN BLOOD Normal Normal [facility] Comment on above: Performed By: #### L [id number], [id number] ####Registered Nurse Step Down: NED PAK ([id number])[facility] ([facility])[address] [place] [address] [place] POIKILOCYTOSIS (PRESENCE) IN BLOOD BY LIGHT MICROSCOPY Slight Abnormal (none) [facility] Comment on above: Performed By: #### L [id number], [id number] ####Registered Nurse Step Down: NED PAK ([id number])[facility] ([facility])[address] [place] [address] [place] POLYCHROMASIA IN BLOOD BY LIGHT MICROSCOPY Slight Abnormal (none) [facility] Comment on above: Performed By: #### L [id number], [id number] ####Registered Nurse Step Down: NED PAK ([id number])[facility])[address] [place] [address] [place] SEGEMENTED NEUTROPHILS/100 LEUKOCYTES BY MANUAL COUNT 86 % High 40-80 [facility] Comment on above: Performed By: #### L [id number], [id number] ####Registered Nurse Step Down: NED PAK ([id number])[facility])[address] [place] [address] VACUOLATED NEUTROPHILS PRESENCE IN BLOOD BY LIGHT MICROSCOPY (PRESENT) Present Abnormal (none) [facility] Comment on above: Performed By: #### L [id number], [id number] ####Registered Nurse Step Down: NED PAK ([id number])[facility] ([facility])[address] [place] [address] MRSA BY PCRon 12-22-2022 MRSA BY PCR Normal [facility] Comment on above: Performed By: #### L [id number] ####Registered Nurse Step Down: NED PAK ([id number])[facility] ([facility])[address] [place] [address] Progress Noteon 12-22-2022 Progress Note Normal [facility] [...] RANDOMon 023 VANCOMYCIN 8.2 ug/mL Low 15.0-20.0 [facility] Comment on above: Order Comment: Alphonse gonzalez draw random vancomycin level with AM labs. Please ensure level is >2 hours after the end of the most recent vancomycin infusion. Do not draw while vanc is infusing. Thanks! Performed By: #### L [id number], [id number] ####Registered Nurse Step Down: NED PAK ([id number])[facility])[address] [place] [address] XR ABDOMEN 1 VIEWon 12-23-19 23 XR ABDOMEN 1 VIEW Normal [facility] ealt System [facility] APTTon 12-21-2022 aPTT Coag (Bld) [Time] 27.8 s Normal 20.0-30.5 [facility] Comment on above: Result Comment: BASILE R COMMENTS:NOTE: The therapeutic time for Heparin anticoagulation, based on Xa activity inhibition, is an APTT of 46-80 seconds. Performed By: #### L [id number] ####Registered Nurse Step Down: NED PAK ([id number])[facility] ([facility])[address] [place] [address] BASIC METABOLIC PANELon 10-0 -2022 Anion gap [Moles/Vol] 5 mmol/L Normal 3-13 [facility] Comment on above: Performed By: #### L [id number] ####Registered Nurse Step Down: END PAK ([id number])[facility] ([facility])[address] [place] [address] Calcium [Mass/Vol] 8.2 mg/dL Low 8.4-10.4 [facility] Comment on above: Performed By: #### L [id number] ####Registered Nurse Step Down: NED PAK ([phone])[facility])[address] [place] [address] Chloride [Moles/Vol] 114 mmol/L High 98-107 [facility] Comment on above: Performed By: #### L [id number] ####Registered Nurse Step Down: NED PAK ([id number])[facility] ([facility])[address] [place] [address] CO2 [Moles/Vol] 25 mmol/L Normal 22-30 [facility] Comment on above: Performed By: #### L [id number] ####Registered Nurse Step Down: NED PAK ([phone])[facility])[address] [place] [address] Creatinine [Mass/Vol] 0.64 mg/dL Normal 0.52-1.04 [facility] Comment on above: Performed By: #### L AB15 ####Registered Nurse Step Down: NED PAK ([id number])[facility])[address] [place] [address] [place] GLOMERULAR FILTRATION RATE ML/MIN/1.73 SQ M.PREDICTED 79.0 mL/min/1.73m*2 Normal >60.0 [facility] Comment on above: Result Comment: Calc ulation based on the Chronic Kidney Disease Epidemiology Collaboration (CKD-EPI) equation refit without adjustment for race Performed By: #### L [id number] ####Registered Nurse Step Down: NED PAK ([id number])[facility] ([facility])[address] [place] [address] Glucose [Mass/Vol] 169 mg/dL High 70-100 [facility] Comment on above: Performed By: #### L [id number] ####Registered Nurse Step Down: NED PAK ([id number])[facility] ([facility])[address] [place] [address] Potassium [Moles/Vol] 3.8 mmol/L Normal 3.5-5.1 [facility] Comment on above: Performed By: #### L [id number] ####Registered Nurse Step Down: NED PAK ([id number])[facility] ([facility])[address] [place] [address] Sodium [Moles/Vol] 144 mmol/L Normal 135-145 [facility] Comment on above: Performed By: #### L AB15 ####Registered Nurse Step Down: NED PAK ([id number])[facility] ([facility])[address] [place] [address] Urea nitrogen [Mass/Vol] 23 mg/dL High 7-17 [facility] Comment on above: Performed By: #### L [id number] ####Registered Nurse Step Down: NED PAK ([id number])[facility] ([facility])[address] [place] [address] BLOOD CULTUREon 12-21-2022 Bacteria identified Cx Nom (Bld) Normal [facility] Comment on above: Performed By: #### L [id number] ####Registered Nurse Step Down: NED PAK ([id number])[facility] ([facility])[address] [place] [address] Bacteria identified Cx Nom (Bld) Normal [facility] Comment on above: Performed By: #### L [id number] ####Registered Nurse Step Down: NED PAK ([id number])[facility] ([facility])[address] [place] [address] CARECOORDon 12-21-2022 CARECOORD Normal [facility] CBC (HEMOGRAM)on 12-21-2022 Erythrocyte distribution width (RBC) [Ratio] 14.3 % Normal 11.5-14.5 [facility] Comment on above: Performed By: #### L [id number] ####Registered Nurse Step Down: NED PAK ([id number])[facility])[address] [place] [address] ERYTHROCYTE MEAN CORPUSCULAR HEMOGLOBIN CONCENTRATION (G/DL) BY AUTOMATED 33.1 % Normal 32.0-36.0 [facility] Comment on above: Performed By: #### L [id number] ####Registered Nurse Step Down: NED PAK ([id number])[facility])[address] [place] [address] Hematocrit (Bld) [Volume fraction] 26.4 % Low 35.0-47.0 [facility] Comment on above: Performed By: #### L [id number] ####Registered Nurse Step Down: NED PAK ([id number])[facility])[address] [place] [address] Hemoglobin (Bld) [Mass/Vol] 8.8 g/dL Low 11.7-16.0 [facility] Comment on above: Performed By: #### L [id number] ####Registered Nurse Step Down: NED PAK ([phone])[facility])[address] [place] [address] MCH (RBC) [Entitic mass] 29.3 pg Normal 26.0-34.0 [facility] Comment on above: Performed By: #### L [id number] ####Registered Nurse Step Down: NED PAK ([id number])[facility])[address] [place] [address] MCV (RBC) [Entitic vol] 88.5 fL Normal 80.0-98.0 [facility] Comment on above: Performed By: #### L [id number] ####Registered Nurse Step Down: NED PAK ([id number])[facility])[address] [place] [address] Platelet mean volume (Bld) [Entitic vol] 7.5 fL Normal 7.4-12.4 [facility] Comment on above: Performed By: #### L [id number] ####Registered Nurse Step Down: NED PAK ([id number])[facility])[address] [place] [address] PLATELETS (10*3/UL) IN BLOOD AUTOMATED COUNT 229 10*3/uL Normal 140-440 [facility] Comment on above: Performed By: #### L [id number] ####Registered Nurse Step Down: NED PAK ([id number])[facility])[address] [place] [address] RBC (Bld) [#/Vol] 2.99 10*6/uL Low 3.8-5.20 [facility] Comment on above: Performed By: #### L [id number] ####Registered Nurse Step Down: NED PAK ([id number])[facility])[address] [place] [address] WBC (Bld) [#/Vol] 13.7 10*3/uL High 3.6-10.7 [facility] Comment on above: Performed By: #### L [id number] ####Registered Nurse Step Down: NED PAK ([id number])[facility])[address] [place] [address] CBC WITH AUTO DIFFERENTIALon 12-21-2022 Erythrocyte distribution width (RBC) [Ratio] 14.5 % Normal 11.5-14.5 [facility] Comment on above: Performed By: #### L [id number], [id number] ####Registered Nurse Step Down: NED PAK ([id number])[facility])[address] [place] [address] ERYTHROCYTE MEAN CORPUSCULAR HEMOGLOBIN CONCENTRATION (G/DL) BY AUTOMATED 34.3 % Normal 32.0-36.0 [facility] Comment on above: Performed By: #### L [id number], [id number] ####Registered Nurse Step Down: NED PAK ([id number])[facility])[address] [place] [address] Hematocrit (Bld) [Volume fraction] 21.6 % Low 35.0-47.0 [facility] Comment on above: Performed By: #### L [id number], [id number] ####Registered Nurse Step Down: NED PAK ([id number])[facility])[address] [place] [address] Hemoglobin (Bld) [Mass/Vol] 7.4 g/dL Low 11.7-16.0 [facility] Comment on above: Performed By: #### L [id number], [id number] ####Registered Nurse Step Down: NED PAK ([id number])[facility])[address] [place] [address] MCH (RBC) [Entitic mass] 30.0 pg Normal 26.0-34.0 [facility] Comment on above: Performed By: #### L [id number], [id number] ####Registered Nurse Step Down: NED PAK ([id number])[address] MCV (RBC) [Entitic vol] 87.4 fL Normal 80.0-98.0 [facility] Comment on above: Performed By: #### Tameka [id number], [id number] ####Registered Nurse Step Down: NED PAK ([id number])[address] NRBC (PER 100 WBCS) BY AUTOMATED COUNT 0.1 /100 WBCs Normal 0.0-2.0 [facility] Comment on above: Performed By: #### L [id number], [id number] ####Registered Nurse Step Down: NED PAK ([id number])[address] Platelet mean volume (Bld) [Entitic vol] 7.7 fL Normal 7.4-12.4 [facility] Comment on above: Performed By: #### L [id number], [id number] ####Registered Nurse Step Down: NED PAK ([id number])[address] PLATELETS (10*3/UL) IN BLOOD AUTOMATED COUNT 164 10*3/uL Normal 140-440 [facility] Comment on above: Performed By: #### L [id number], [id number] ####Registered Nurse Step Down: NED PAK ([id number])[facility] ([facility])[address] [place] [address] RBC (Bld) [#/Vol] 2.47 10*6/uL Low 3.8-5.20 [facility] Comment on above: Performed By: #### L [id number], [id number] ####Registered Nurse Step Down: NED PAK ([id number])[facility] ([facility])[address] [place] [address] WBC (Bld) [#/Vol] 10.6 10*3/uL Normal 3.6-10.7 [facility] Comment on above: Performed By: #### L [id number], [id number] ####Registered Nurse Step Down: NED PAK ([id number])[facility] ([facility])[address] [place] [address] COMPLETE URINALYSISon 2022 BACTERIA (#/HPF) IN URINE Few Abnormal Negative [facility] Comment on above: Performed By: #### L [id number] ####Registered Nurse Step Down: NED PAK ([id number])[facility] ([facility])[address] [place] [address] BILIRUBIN, TOTAL PRESENCE IN URINE Negative Normal Negative [facility] Comment on above: Performed By: #### L [id number] ####Registered Nurse Step Down: NED PAK ([id number])[facility] ([facility])[address] [place] [address] Clarity (U) Clear Normal Clear [facility] Comment on above: Performed By: #### L [id number] ####Registered Nurse Step Down: NED PAK ([id number])[facility] ([facility])[address] [place] [address] Color (U) Light Yellow Normal Lt. Yellow [facility] Comment on above: Performed By: #### L [id number] ####Registered Nurse Step Down: NED APK ([id number])[facility] [place] [address] GLUCOSE (MG/DL) IN URINE Normal Normal Normal (<70) [facility] Comment on above: Performed By: #### L [id number] ####Registered Nurse Step Down: NED PAK ([id number])[facility] [place] [address] HEMOGLOBIN PRESENCE IN URINE 0.06 mg/dL Abnormal Negative [facility] Comment on above: Performed By: #### L [id number] ####Registered Nurse Step Down: NED PAK ([id number])[facility] ([facility])[address] [place] [address] HYALINE CASTS (#/LPF) IN URINE SEDIMENT BY MICROSCOPY Negative Normal Negative [facility] Comment on above: Performed By: #### L [id number] ####Registered Nurse Step Down: NED PAK ([id number])[facility] [place] [address] Ketones Ql (U) Negative Normal Negative [facility] Comment on above: Performed By: #### L [id number] ####Registered Nurse Step Down: NED PAK ([id number])[facility] ([facility])[address] [place] [address] LEUKOCYTE ESTERASE PRESENCE IN URINE BY TEST STRIP Negative Normal Negative [facility] Comment on above: Performed By: #### L [id number] ####Registered Nurse Step Down: NED PAK ([id number])[facility] [place] [address] MUCUS (#/LPF) IN URINE SEDIMENT Few Normal Negative [facility] Comment on above: Performed By: #### L [id number] ####Registered Nurse Step Down: NED PAK ([id number])[facility] [place] [address] NITRITE PRESENCE IN URINE Negative Normal Negative [facility] Comment on above: Performed By: #### L [id number] ####Registered Nurse Step Down: NED PAK ([id number])[facility] ([facility])[address] [place] [address] pH (U) 5.5 [pH] Normal 5.0-8.0 [facility] Comment on above: Performed By: #### L [id number] ####Registered Nurse Step Down: NED PAK ([id number])[facility] ([facility])[address] [place] [address] Protein (U) [Mass/Vol] 50 mg/dL Abnormal Negative [facility] Comment on above: Performed By: #### L [id number] ####Registered Nurse Step Down: NED PAK ([id number])[facility] ([facility])[address] [place] [address] RBC (#/HPF) IN URINE SEDIMENT 0-2 Normal 0-2 [facility] Comment on above: Performed By: #### L [id number] ####Registered Nurse Step Down: NED PAK ([id number])[facility] ([facility])[address] [place] [address] Specific gravity (U) [Rel density] 1.026 Normal 1.005-1.03 0 [facility] Comment on above: Performed By: #### L [id number] ####Registered Nurse Step Down: NED PAK ([id number])[facility] ([facility])[address] [place] [address] SQUAMOUS EPITHELIAL CELLS (#/HPF) IN URINE SEDIMENT 0-2 Normal 3-5 [facility] Comment on above: Performed By: #### L [id number] ####Registered Nurse Step Down: NED PAK ([id number])[facility] ([facility])[address] [place] [address] [place] UROBILINOGEN (MG/DL) IN URINE Normal Normal Normal (0-1) [facility] Comment on above: Performed By: #### L [id number] ####Registered Nurse Step Down: NED PAK ([id number])[facility] ([facility])[address] [place] [address] WBC (LEUKOCYTE) (#/HPF) IN URINE SEDIMENT 0-2 Normal 0-5 [facility] Comment on above: Performed By: #### L [id number] ####Registered Nurse Step Down: NED PAK ([id number])[facility])[address] [place] [address] Consulton 12-21-2022 Consult Normal [facility] MANUAL DIFFERENTIALon 2022 BAND NEUTROPHILS (10*3/UL) BLOOD MANUAL COUNT 0.3 10*3/uL High <=0.0 [facility] Comment on above: Performed By: #### L [id number], [id number] ####Registered Nurse Step Down: NED PAK ([id number])[facility])[address] [place] [address] BAND NEUTROPHILS TOTAL PER COUNTED LEUKOCYTES BY MANUAL COUNT 3 Normal [facility] Comment on above: Performed By: #### L [id number], [id number] ####Registered Nurse Step Down: NED PAK ([id number])[facility])[address] [place] [address] CELLS COUNTED TOTAL (#) IN BLOOD 100 Normal [facility] Comment on above: Performed By: #### L [id number], [id number] ####Registered Nurse Step Down: NED PAK ([id number])[facility])[address] [place] [address] DIFFERENTIAL METHOD Manual differential performed Normal [facility] Comment on above: Performed By: #### L [id number], [id number] ####Registered Nurse Step Down: NED PAK ([id number])[facility])[address] [place] [address] LEUKOCYTES (10*3/UL) NUCLEATED ERYTHROCYTE ADJUST 10.6 10*3/uL Normal 3.6-10.7 [facility] Comment on above: Performed By: #### L [id number], [id number] ####Registered Nurse Step Down: NDE PAK ([phone])[facility])[address] [place] [address] LYMPHOCYTES (10*3/UL) IN BLOOD BY MANUAL COUNT 1.6 10*3/uL Normal 1.0-4.3 [facility] Comment on above: Performed By: #### L [id number], [id number] ####Registered Nurse Step Down: NED PAK ([phone])[facility])[address] [place] [address] [place] LYMPHOCYTES TOTAL PER COUNTED LEUKOCYTES BY MANUAL COUNT 15 Normal [facility] Comment on above: Performed By: #### L [id number], [id number] ####Registered Nurse Step Down: NED PAK ([id number])[facility] ([facility])[address] [place] [address] [place] LYMPHOCYTES/100 LEUKOCYTES IN BLOOD BY MANUAL COUNT 15 % Low 20-40 [facility] Comment on above: Performed By: #### L [id number], [id number] ####Registered Nurse Step Down: NED PAK ([phone])[facility])[address] [place] [address] [place] METAMYELOCYTES (10*3/UL) IN BLOOD BY MANUAL COUNT 0.1 10*3/uL High <=0.0 [facility] Comment on above: Performed By: #### L [id number], [id number] ####Registered Nurse Step Down: NED PAK ([id number])[facility])[address] [place] [address] [place] METAMYELOCYTES TOTAL PER COUNTED LEUKOCYTES BY MANUAL COUNT 1 Normal [facility] Comment on above: Performed By: #### L [id number], [id number] ####Registered Nurse Step Down: NED PAK ([id number])[facility])[address] [place] [address] [place] METAMYELOCYTES/100 LEUKOCYTES IN BLOOD BY MANUAL COUNT 1 % High <=0 [facility] Comment on above: Performed By: #### L [id number], [id number] ####Registered Nurse Step Down: NED PAK ([phone])[facility])[address] [place] [address] [place] MONOCYTES (10*3/UL) IN BLOOD BY MANUAL COUNT 0.2 10*3/uL Normal 0.0-0.8 [facility] Comment on above: Performed By: #### L [id number], [id number] ####Registered Nurse Step Down: NED PAK ([phone])[facility])[address] [place] [address] [place] MONOCYTES TOTAL PER COUNTED LEUKOCYTES BY MANUAL COUNT 2 Normal [facility] Comment on above: Performed By: #### L [id number], [id number] ####Registered Nurse Step Down: NED PAK ([id number])[facility])[address] [place] [address] [place] MONOCYTES/100 LEUKOCYTES IN BLOOD BY MANUAL COUNT 2 % Normal 2-10 [facility] Comment on above: Performed By: #### L [id number], [id number] ####Registered Nurse Step Down: NED PAK ([id number])[facility])[address] [place] [address] MYELOCYTES (10*3/UL) IN BLOOD BY MANUAL COUNT 0.1 10*3/uL High <=0.0 [facility] Comment on above: Performed By: #### L [id number], [id number] ####Registered Nurse Step Down: NED PAK ([id number])[facility])[address] [place] [address] MYELOCYTES COUNTED BY MANUAL COUNT 1 Normal [facility] Comment on above: Performed By: #### L [id number], [id number] ####Registered Nurse Step Down: NED PAK ([phone])[facility])[address] [place] [address] [place] MYELOCYTES/100 LEUKOCYTES IN BLOOD BY MANUAL COUNT 1 % High <=0 [facility] Comment on above: Performed By: #### L [id number], [id number] ####Registered Nurse Step Down: NED PAK ([id number])[facility])[address] [place] [address] [place] NEUTROPHILS (SEGS+BANDS) (10*3/UL) BY MANUAL COUNT 8.6 10*3/uL High 1.8-7.0 [facility] Comment on above: Performed By: #### L [id number], [id number] ####Registered Nurse Step Down: NED PAK ([phone])[facility] [place] [address] [place] NEUTROPHILS BAND FORM/100 LEUKOCYTES IN BLOOD BY MANUAL COUNT 3 % High <=0 [facility] Comment on above: Performed By: #### L [id number], [id number] ####Registered Nurse Step Down: NED PAK ([id number])[facility] ([facility])[address] [place] [address] [place] NEUTROPHILS TOTAL PER COUNTED LEUKOCYTES BY MANUAL COUNT 78 Normal [facility] Comment on above: Performed By: #### L [id number], [id number] ####Registered Nurse Step Down: NED PAK ([id number])[facility] ([facility])[address] [place] [address] OVALOCYTES PRESENCE IN BLOOD BY LIGHT MICROSCOPY Slight Abnormal (none) [facility] Comment on above: Performed By: #### L [id number], [id number] ####Registered Nurse Step Down: NED PAK ([id number])[facility] ([facility])[address] [place] [address] [place] PLATELET MORPHOLOGY IN BLOOD Normal Normal [facility] Comment on above: Performed By: #### L [id number], [id number] ####Registered Nurse Step Down: NED PAK ([id number])[facility] ([facility])[address] [place] [address] [place] POIKILOCYTOSIS (PRESENCE) IN BLOOD BY LIGHT MICROSCOPY Slight Abnormal (none) [facility] Comment on above: Performed By: #### L [id number], [id number] ####Registered Nurse Step Down: NED PAK ([phone])[facility] ([facility])[address] [place] [address] [place] POLYCHROMASIA IN BLOOD BY LIGHT MICROSCOPY Slight Abnormal (none) [facility] Comment on above: Performed By: #### L [id number], [id number] ####Registered Nurse Step Down: NED PAK ([id number])[facility] ([facility])[address] [place] [address] [place] SEGEMENTED NEUTROPHILS/100 LEUKOCYTES BY MANUAL COUNT 78 % Normal 40-80 [facility] Comment on above: Performed By: #### L [id number], [id number] ####Registered Nurse Step Down: NED PAK ([id number])[facility])[address] [place] [address] SEGMENTED NEUTROPHILS (10*3/UL)IN BLOOD BY MANUAL COUNT 8.6 10*3/uL High 1.8-7.0 [facility] Comment on above: Performed By: #### L [id number], [id number] ####Registered Nurse Step Down: NED PAK ([id number])[facility])[address] [place] [address] VACUOLATED NEUTROPHILS PRESENCE IN BLOOD BY LIGHT MICROSCOPY (PRESENT) Present Abnormal (none) [facility] [employer] [facility] Comment on above: Performed By: #### L [id number], [id number] ####Registered Nurse Step Down: NED PAK ([phone])[address] No Panel Informationon 12-21 Status Transfused [facility] PLASMA STATUSon 12-21-2022 Blood Product Code [id number] [facility] Blood Product Description FFP [facility] Blood product unit Nom (BPU) [ID] [id number] [facility] Blood Product Unit Type 6200 [facility] Comment on above: A Pos PROCALCITONIN TESTon 023 PROCALCITONIN 0.18 ng/mL High 0.00-0.09 [facility] Comment on above: Result Comment: ORDE R COMMENTS:PCT <0.50 = Low risk of severe sepsis and/or septic shock.PCT >2.00 = High risk of severe sepsis and/or septic shock. Performed By: #### L [id number] ####Registered Nurse Step Down: NED PAK ([id number])[facility])[address] [place] [address] PROCALCITONIN 0.19 ng/mL High 0.00-0.09 [facility] Comment on above: Result Comment: ORDE R COMMENTS:PCT <0.50 = Low risk of severe sepsis and/or septic shock.PCT >2.00 = High risk of severe sepsis and/or septic shock. Performed By: #### L [id number] ####Registered Nurse Step Down: NED PAK ([id number])[facility])[address] [place] [address] Progress Noteon 12-21-2022 Progress Note Normal [facility] Progress Note Normal [facility] Progress [facility] Normal [facility] Progress Note Normal [facility] RED BLOOD CELL UNIT STATUSon 12-21-2022 Blood Product Code [id number] [facility] Blood Product Description Red Blood Cells [facility] Blood product unit Nom (BPU) [ID] [id number] [facility] Blood Product Unit Type 9500 [facility] Comment on above: O Neg Major crossmatch [Interp] Compatible (IS) [facility] Comment on above: Emergency Transfusio n - Transfused Uncrossmatched XR CHEST 1 VIEWon 12-21-2022 XR CHEST 1 VIEW Normal [facility] BASIC METABOLIC PANELon 10-0 Anion gap [Moles/Vol] 6 mmol/L Normal 3-13 [facility] Comment on above: Performed By: #### L [id number] ####Registered Nurse Step Down: NED PAK ([id number])[facility])[address] [place] [address] Calcium [Mass/Vol] 8.4 mg/dL Normal 8.4-10.4 [facility] Comment on above: Performed By: #### L [id number] ####Registered Nurse Step Down: NED PAK ([id number])[facility] ([facility])[address] [place] [address] Chloride [Moles/Vol] 117 mmol/L High 98-107 [facility] Comment on above: Performed By: #### L [id number] ####Registered Nurse Step Down: NED PAK ([id number])[facility] ([facility])[address] [place] [address] CO2 [Moles/Vol] 22 mmol/L Normal 22-30 [facility] Comment on above: Performed By: #### L [id number] ####Registered Nurse Step Down: NED PAK ([id number])[facility])[address] [place] [address] Creatinine [Mass/Vol] 0.68 mg/dL Normal 0.52-1.04 [facility] Comment on above: Performed By: #### L [id number] ####Registered Nurse Step Down: NED PAK ([id number])[facility])[address] [place] [address] GLOMERULAR FILTRATION RATE ML/MIN/1.73 SQ M.PREDICTED 77.9 mL/min/1.73m*2 Normal >60.0 [facility] Comment on above: Result Comment: Calc ulation based on the Chronic Kidney Disease Epidemiology Collaboration (CKD-EPI) equation refit without adjustment for race Performed By: #### L [id number] ####Registered Nurse Step Down: NED PAK ([id number])[facility])[address] [place] [address] Glucose [Mass/Vol] 152 mg/dL High 70-100 [facility] Comment on above: Performed By: #### L [id number] ####Registered Nurse Step Down: NED PAK ([id number])[facility])[address] [place] [address] Potassium [Moles/Vol] 3.6 mmol/L Normal 3.5-5.1 [facility] Comment on above: Performed By: #### L [id number] ####Registered Nurse Step Down: NED PAK ([id number])[facility])[address] [place] [address] Sodium [Moles/Vol] 144 mmol/L Normal 135-145 [facility] Comment on above: Performed By: #### L [id number] ####Registered Nurse Step Down: NED PAK ([id number])[facility])[address] [place] [address] Urea nitrogen [Mass/Vol] 17 mg/dL Normal 7-17 [facility] Comment on above: Performed By: #### L [id number] ####Registered Nurse Step Down: NED PAK ([id number])[facility])[address] [place] [address] CBC WITH AUTO DIFFERENTIALon 12-20-2022 Basophils (Bld) [#/Vol] 0.0 10*3/uL Normal 0.0-0.2 [facility] Comment on above: Performed By: #### L [id number] ####Registered Nurse Step Down: NED PAK ([id number])[facility])[address] [place] [address] Basophils/100 WBC (Bld) 0.3 % Normal 0.0-2.0 [facility] Comment on above: Performed By: #### L [id number] ####Registered Nurse Step Down: NED PAK ([id number])[facility])[address] [place] [address] Eosinophils (Bld) [#/Vol] 0.0 10*3/uL Normal 0.0-0.5 [facility] Comment on above: Performed By: #### L [id number] ####Registered Nurse Step Down: NED PAK ([id number])[facility])[address] [place] [address] Eosinophils/100 WBC (Bld) 0.1 % Low 1.0-6.0 [facility] Comment on above: Performed By: #### L [id number] ####Registered Nurse Step Down: NED PAK ([id number])[facility])[address] [place] [address] Erythrocyte distribution width (RBC) [Ratio] 14.2 % Normal 11.5-14.5 [facility] Comment on above: Performed By: #### L [id number] ####Registered Nurse Step Down: NED PAK ([id number])[facility])[address] [place] [address] ERYTHROCYTE MEAN CORPUSCULAR HEMOGLOBIN CONCENTRATION (G/DL) BY AUTOMATED 33.1 % Normal 32.0-36.0 [facility] Comment on above: Performed By: #### L [id number] ####Registered Nurse Step Down: NED PAK ([id number])[facility])[address] [place] [address] Hematocrit (Bld) [Volume fraction] 22.1 % Low 35.0-47.0 [facility] Comment on above: Performed By: #### L [id number] ####Registered Nurse Step Down: NED PAK ([id number])[facility])[address] [place] [address] Hemoglobin (Bld) [Mass/Vol] 7.3 g/dL Low 11.7-16.0 [facility] Comment on above: Performed By: #### L [id number] ####Registered Nurse Step Down: NED PAK ([id number])[address] Lymphocytes (Bld) [#/Vol] 1.2 10*3/uL Normal 1.0-4.3 [facility] Comment on above: Performed By: #### L [id number] ####Registered Nurse Step Down: NED PAK ([phone])[facility])[address] [place] [address] Lymphocytes/100 WBC (Bld) 9.7 % Low 20.0-40.0 [facility] Comment on above: Performed By: #### L [id number] ####Registered Nurse Step Down: NED PAK ([id number])[facility])[address] [place] [address] MCH (RBC) [Entitic mass] 29.0 pg Normal 26.0-34.0 [facility] Comment on above: Performed By: #### L [id number] ####Registered Nurse Step Down: NED PAK ([id number])[address] MCV (RBC) [Entitic vol] 87.6 fL Normal 80.0-98.0 [facility] Comment on above: Performed By: #### L [id number] ####Registered Nurse Step Down: NED PAK ([id number])[facility])[address] [place] [address] Monocytes (Bld) [#/Vol] 0.5 10*3/uL Normal 0.0-0.8 [facility] Comment on above: Performed By: #### L [id number] ####Registered Nurse Step Down: NED PAK ([id number])[facility])[address] [place] [address] Monocytes/100 WBC (Bld) 3.8 % Normal 2.0-10.0 [facility] Comment on above: Performed By: #### L [id number] ####Registered Nurse Step Down: NED PAK ([id number])[facility])[address] [place] [address] Neutrophils (Bld) [#/Vol] 11.0 10*3/uL High 1.8-7.0 [facility] Comment on above: Performed By: #### L [id number] ####Registered Nurse Step Down: NED PAK ([id number])[facility] ([facility])[address] [place] [address] Neutrophils/100 WBC (Bld) 86.1 % High 40.0-80.0 [facility] Comment on above: Performed By: #### L [id number] ####Registered Nurse Step Down: NED PAK ([id number])[facility])[address] [place] [address] NRBC (PER 100 WBCS) BY AUTOMATED COUNT 0.0 /100 WBCs Normal 0.0-2.0 [facility] Comment on above: Performed By: #### L [id number] ####Registered Nurse Step Down: NED PAK ([id number])[facility])[address] [place] [address] Platelet mean volume (Bld) [Entitic vol] 7.4 fL Normal 7.4-12.4 [facility] Comment on above: Performed By: #### L [id number] ####Registered Nurse Step Down: NED PAK ([id number])[facility])[address] [place] [address] PLATELETS (10*3/UL) IN BLOOD AUTOMATED COUNT 119 10*3/uL Low 140-440 [facility] Comment on above: Performed By: #### L [id number] ####Registered Nurse Step Down: NED PAK ([id number])[facility] ([facility])[address] [place] [address] RBC (Bld) [#/Vol] 2.52 10*6/uL Low 3.8-5.20 [facility] Comment on above: Performed By: #### L [id number] ####Registered Nurse Step Down: NED PAK ([id number])[facility] ([facility])[address] [place] [address] WBC (Bld) [#/Vol] 12.8 10*3/uL High 3.6-10.7 [facility] Comment on above: Performed By: #### L [id number] ####Registered Nurse Step Down: NED PAK ([id number])[facility] ([facility])[address] [place] [address] Progress Noteon 12-20-2022 Progress Note Normal [facility] 1 VIEW Normal [facility] XR CHEST 1 VIEW Normal [facility] BASIC METABOLIC PANELon 09-3 Anion gap [Moles/Vol] 8 mmol/L Normal 3-13 [facility] Comment on above: Performed By: #### L [id number] ####Registered Nurse Step Down: NED PAK ([id number])[facility])[address] [place] [address] Calcium [Mass/Vol] 8.6 mg/dL Normal 8.4-10.4 [facility] Comment on above: Performed By: #### L [id number] ####Registered Nurse Step Down: NED PAK ([id number])[facility] ([facility])[address] [place] [address] Chloride [Moles/Vol] 115 mmol/L High 98-107 [facility] Comment on above: Performed By: #### L [id number] ####Registered Nurse Step Down: NED PAK ([id number])[facility])[address] [place] [address] CO2 [Moles/Vol] 22 mmol/L Normal 22-30 [facility] Comment on above: Performed By: #### L [id number] ####Registered Nurse Step Down: NED PAK ([id number])[facility])[address] [place] [address] Creatinine [Mass/Vol] 0.60 mg/dL Normal 0.52-1.04 [facility] Comment on above: Performed By: #### L [id number] ####Registered Nurse Step Down: NED PAK ([id number])[facility])[address] [place] [address] GLOMERULAR FILTRATION RATE ML/MIN/1.73 SQ M.PREDICTED 80.2 mL/min/1.73m*2 Normal >60.0 [facility] Comment on above: Result Comment: Calc ulation based on the Chronic Kidney Disease Epidemiology Collaboration (CKD-EPI) equation refit without adjustment for race Performed By: #### L [id number] ####Registered Nurse Step Down: NED PAK ([id number])[facility])[address] [place] [address] Glucose [Mass/Vol] 136 mg/dL High 70-100 [facility] Comment on above: Performed By: #### L [id number] ####Registered Nurse Step Down: NED PAK ([id number])[facility])[address] [place] [address] Potassium [Moles/Vol] 3.6 mmol/L Normal 3.5-5.1 [facility] Comment on above: Performed By: #### L [id number] ####Registered Nurse Step Down: NED PAK ([id number])[facility] ([facility])[address] [place] [address] Sodium [Moles/Vol] 144 mmol/L Normal 135-145 [facility] Comment on above: Performed By: #### L [id number] ####Registered Nurse Step Down: NED PAK ([id number])[facility])[address] [place] [address] Urea nitrogen [Mass/Vol] 9 mg/dL Normal 7-17 [facility] Comment on above: Performed By: #### L [id number] ####Registered Nurse Step Down: NED PAK ([id number])[facility])[address] [place] [address] CBC WITH AUTO DIFFERENTIALon 12-19-2022 Basophils (Bld) [#/Vol] 0.0 10*3/uL Normal 0.0-0.2 [facility] Comment on above: Performed By: #### L [id number] ####Registered Nurse Step Down: NED PAK ([phone])[facility] ([facility])[address] [place] [address] [place] Basophils/100 WBC (Bld) 0.1 % Normal 0.0-2.0 [facility] Comment on above: Performed By: #### L [id number] ####Registered Nurse Step Down: NED PAK ([id number])[facility])[address] [place] [address] Eosinophils (Bld) [#/Vol] 0.0 10*3/uL Normal 0.0-0.5 [facility] Comment on above: Performed By: #### L [id number] ####Registered Nurse Step Down: NED PAK ([id number])[facility])[address] [place] [address] [place] Eosinophils/100 WBC (Bld) 0.0 % Low 1.0-6.0 [facility] Comment on above: Performed By: #### L [id number] ####Registered Nurse Step Down: NED PAK ([id number])[facility])[address] [place] [address] Erythrocyte distribution width (RBC) [Ratio] 13.6 % Normal 11.5-14.5 [facility] Comment on above: Performed By: #### L [id number] ####Registered Nurse Step Down: NED PAK ([id number])[facility])[address] [place] [address] ERYTHROCYTE MEAN CORPUSCULAR HEMOGLOBIN CONCENTRATION (G/DL) BY AUTOMATED 33.5 % Normal 32.0-36.0 [facility] Comment on above: Performed By: #### L [id number] ####Registered Nurse Step Down: NED PAK ([id number])[facility])[address] [place] [address] Hematocrit (Bld) [Volume fraction] 23.9 % Low 35.0-47.0 [facility] Comment on above: Performed By: #### L [id number] ####Registered Nurse Step Down: NED PAK ([id number])[facility])[address] [place] [address] Hemoglobin (Bld) [Mass/Vol] 8.0 g/dL Low 11.7-16.0 [facility] Comment on above: Performed By: #### L [id number] ####Registered Nurse Step Down: NED PAK ([id number])[facility])[address] [place] [address] Lymphocytes (Bld) [#/Vol] 1.0 10*3/uL Normal 1.0-4.3 [facility] Comment on above: Performed By: #### L [id number] ####Registered Nurse Step Down: NED PAK ([id number])[facility])[address] [place] [address] Lymphocytes/100 WBC (Bld) 6.4 % Low 20.0-40.0 [facility] Comment on above: Performed By: #### L [id number] ####Registered Nurse Step Down: NED PAK ([id number])[facility])[address] [place] [address] MCH (RBC) [Entitic mass] 29.3 pg Normal 26.0-34.0 [facility] Comment on above: Performed By: #### L [id number] ####Registered Nurse Step Down: NED PAK ([id number])[facility])[address] [place] [address] MCV (RBC) [Entitic vol] 87.4 fL Normal 80.0-98.0 [facility] Comment on above: Performed By: #### L [id number] ####Registered Nurse Step Down: NED PAK ([id number])[facility])[address] [place] [address] Monocytes (Bld) [#/Vol] 0.5 10*3/uL Normal 0.0-0.8 [facility] Comment on above: Performed By: #### L [id number] ####Registered Nurse Step Down: NED PAK ([id number])[facility])[address] [place] [address] Monocytes/100 WBC (Bld) 3.6 % Normal 2.0-10.0 [facility] Comment on above: Performed By: #### L [id number] ####Registered Nurse Step Down: NED PAK ([id number])[facility])[address] [place] [address] Neutrophils (Bld) [#/Vol] 13.6 10*3/uL High 1.8-7.0 [facility] Comment on above: Performed By: #### L [id number] ####Registered Nurse Step Down: NED PAK ([id number])[facility])[address] [place] [address] Neutrophils/100 WBC (Bld) 89.9 % High 40.0-80.0 [facility] Comment on above: Performed By: #### L [id number] ####Registered Nurse Step Down: NED PAK ([id number])[facility])[address] [place] [address] NRBC (PER 100 WBCS) BY AUTOMATED COUNT 0.0 /100 WBCs Normal 0.0-2.0 [facility] Comment on above: Performed By: #### L [id number] ####Registered Nurse Step Down: NED PAK ([id number])[facility])[address] [place] [address] Platelet mean volume (Bld) [Entitic vol] 7.3 fL Low 7.4-12.4 [facility] Comment on above: Performed By: #### L [id number] ####Registered Nurse Step Down: NED PAK ([id number])[facility])[address] [place] [address] PLATELETS (10*3/UL) IN BLOOD AUTOMATED COUNT 107 10*3/uL Low 140-440 [facility] Comment on above: Performed By: #### L [id number] ####Registered Nurse Step Down: NED PAK ([id number])[facility] [facility])[address] [place] [address] RBC (Bld) [#/Vol] 2.74 10*6/uL Low 3.8-5.20 [facility] Comment on above: Performed By: #### L [id number] ####Registered Nurse Step Down: NED PAK ([id number])[facility])[address] [place] [address] WBC (Bld) [#/Vol] 15.1 10*3/uL High 3.6-10.7 [facility] Comment on above: Performed By: #### L [id number] ####Registered Nurse Step Down: NED PAK ([id number])[facility])[address] [place] [address] CT HEAD WO IV CONTRASTon CT HEAD WO IV CONTRAST Normal [facility] ECG 12-LEADon 12-19-2022 ECG 12-LEAD Normal [facility] FFPon 12-19-2022 BB Order Item Product status info to follow [facility] HEMOGLOBIN AND HEMATOCRIT, B LOODon 12-19-2022 Hematocrit (Bld) [Volume fraction] 24.0 % Low 35.0-47.0 [facility] Comment on above: Performed By: #### L [id number] ####Registered Nurse Step Down: NED PAK ([id number])[facility])[address] [place] [address] Hemoglobin (Bld) [Mass/Vol] 8.0 g/dL Low 11.7-16.0 [facility] Comment on above: Performed By: #### L [id number] ####Registered Nurse Step Down: NED PAK ([id number])[facility])[address] [place] [address] Hematocrit (Bld) [Volume fraction] 23.3 % Low 35.0-47.0 [facility] Comment on above: Performed By: #### L [id number] ####Registered Nurse Step Down: NED PAK ([id number])[facility])[address] [place] [address] Hemoglobin (Bld) [Mass/Vol] 7.9 g/dL Low 11.7-16.0 [facility] Comment on above: Performed By: #### L [id number] ####Registered Nurse Step Down: NED PAK ([id number])[facility])[address] [place] [address] LACTIC ACID WITH REFLEXon Lactate [Moles/Vol] 1.7 mmol/L Normal 0.7-2.0 [facility] Comment on above: Performed By: #### L [id number] ####Registered Nurse Step Down: NED PAK ([id number])[facility])[address] [place] [address] Lactate [Moles/Vol] 2.4 mmol/L High 0.7-2.0 [facility] Comment on above: Performed By: #### L [id number] ####Registered Nurse Step Down: NED PAK ([id number])[facility])[address] [place] [address] Lactate [Moles/Vol] 2.3 mmol/L High 0.7-2.0 [facility] Comment on above: Performed By: #### L [id number] ####Registered Nurse Step Down: NED PAK ([id number])[facility] ([facility] PLASMA STATUSon 12-19-2022 BLOOD PRODUCT CODE [id number] Normal [facility] Comment on above: Performed By: #### F FU #### S PATHOLOGY LABORATORY [address] [place] [address], BLOOD PRODUCT DESCRIPTION FFP Normal [facility] Comment on above: Performed By: #### F FU #### S [facility] [address] [place] [address], BLOOD PRODUCT STATUS Transfused Normal [facility] Comment on above: Performed By: #### F FU #### S [facility] [address] [place] [address], Performed By: #### Samuel BU #### S [facility] LAB[facility] [address] [place] [address], BLOOD PRODUCT UNIT INFO [id number] Normal [facility] Comment on above: Performed By: #### F FU #### S [facility] LAB[facility] [address] [place] [address], BLOOD PRODUCT UNIT TYPE 6200 Normal [facility] Comment on above: Result Comment: A Po s Performed By: #### F FU #### S [facility] [address] [place] [address], Progress Noteon 12-19-2022 Progress Note Normal [facility] Progress Note Normal [facility] Progress Note Normal [facility] Progress Note [facility] RED BLOOD CELL COMPONENTon 0 12-19-2022 BB ORDER ITEM Product status info to follow Normal [facility] Comment on above: Performed By: #### R SERGIO #### S [facility] LAB[facility] [address] [place] [address], Performed By: #### F FO #### S [facility] [address] [place] [address], BB Order Item Product status info to follow [facility] RED BLOOD CELL UNIT STATUSon 12-19-2022 BLOOD PRODUCT CODE [id number] Normal [facility] Comment on above: Performed By: #### R BU #### S PATH[facility] LAB[facility] [address] [place] [address], BLOOD PRODUCT DESCRIPTION Red Blood Cells Normal [facility] Comment on above: Performed By: #### R BU #### S [facility] LAB[facility] [address] [place] [address], BLOOD PRODUCT UNIT INFO [id number] Normal [facility] Comment on above: Performed By: #### R BU #### [facility] [address] [place] [address], BLOOD PRODUCT UNIT TYPE 9500 Normal [facility] Comment on above: Result Comment: Dimitri Villarreal g Performed By: #### R BU #### S PATH[facility] LAB[facility]AT[facility] [address] [place] [address], CROSSMATCH INTERPRETATION Compatible (IS) Normal [facility] Comment on above: Result Comment: Nessa gency Transfusion - Transfused Uncrossmatched Performed By: #### R BU #### [facility] [address] [place] [address], TYPE AND SCREENon 12-19-2022 ABO and Rh group Nom (Bld) Blood group A Rh(D) positive Normal [facility] Comment on above: Performed By: #### T S #### [facility] [address] [place] [address], ABO and Rh group Nom (Bld) No Previous Results Normal [facility] Comment on above: Performed By: #### T S #### S PATH[facility]Y LABORATORY [address] [place] [address], ABSC INT Negative Normal [facility] Comment on above: Performed By: #### T S #### S PATHOLOGY LABORATORY [address] [place] [address], ABO and Rh group Nom (Bld) Blood group A Rh(D) positive [facility] ABO and Rh group Nom (Bld) No Previous Results [facility] Blood group antibody screen Ql Negative [facility] XR ABDOMEN 1 VIEWon 12-20-19 23 XR ABDOMEN 1 VIEW Normal [facility] XR ABDOMEN 1 VIEW Normal [facility] XR CHEST 1 VIEWon 12-19-2022 XR CHEST 1 VIEW Normal [facility] BASIC METABOLIC PANELon 11-21 Anion gap [Moles/Vol] 11 mmol/L Normal 3-13 [facility] Comment on above: Performed By: #### L [id number] ####Registered Nurse Step Down: NED PAK ([id number])[facility])[address] [place] [address] Calcium [Mass/Vol] 8.9 mg/dL Normal 8.4-10.4 [facility] Comment on above: Performed By: #### L [id number] ####Registered Nurse Step Down: NED PAK ([id number])[facility] ([facility])[address] [place] [address] Chloride [Moles/Vol] 111 mmol/L High 98-107 [facility] Comment on above: Performed By: #### L [id number] ####Registered Nurse Step Down: NED PAK ([id number])[facility] ([facility])[address] [place] [address] CO2 [Moles/Vol] 21 mmol/L Low 22-30 [facility] Comment on above: Performed By: #### L [id number] ####Registered Nurse Step Down: NED PAK ([id number])[facility])[address] [place] [address] Creatinine [Mass/Vol] 0.65 mg/dL Normal 0.52-1.04 [facility] Comment on above: Performed By: #### L [id number] ####Registered Nurse Step Down: NED PAK ([id number])[facility])[address] [place] [address] [place] GLOMERULAR FILTRATION RATE ML/MIN/1.73 SQ M.PREDICTED 78.7 mL/min/1.73m*2 Normal >60.0 [facility] Comment on above: Result Comment: Calc ulation based on the Chronic Kidney Disease Epidemiology Collaboration (CKD-EPI) equation refit without adjustment for race Performed By: #### L [id number] ####Registered Nurse Step Down: NED PAK ([id number])[facility] ([facility])[address] [place] [address] [place] Glucose [Mass/Vol] 142 mg/dL High 70-100 [facility] Comment on above: Performed By: #### L [id number] ####Registered Nurse Step Down: NED PAK ([id number])[facility] ([facility])[address] [place] [address] [place] Potassium [Moles/Vol] 4.1 mmol/L Normal 3.5-5.1 [facility] Comment on above: Performed By: #### L [id number] ####Registered Nurse Step Down: NED PAK ([id number])[facility] ([facility])[address] [place] [address] Sodium [Moles/Vol] 143 mmol/L Normal 135-145 [facility] Comment on above: Performed By: #### L [id number] ####Registered Nurse Step Down: NED PAK ([id number])[facility] ([facility])[address] [place] [address] Urea nitrogen [Mass/Vol] 13 mg/dL Normal 7-17 [facility] Comment on above: Performed By: #### L [id number] ####Registered Nurse Step Down: NED PAK ([id number])[facility] ([facility])[address] [place] [address] Anion gap [Moles/Vol] 12 mmol/L Normal 3-13 [facility] Comment on above: Performed By: #### L [id number] ####Registered Nurse Step Down: NED PAK ([id number])[facility] ([facility])[address] [place] [address] [place] Calcium [Mass/Vol] 9.6 mg/dL Normal 8.4-10.4 [facility] Comment on above: Performed By: #### L [id number] ####Registered Nurse Step Down: NED PAK ([id number])[facility] ([facility])[address] [place] [address] [place] Chloride [Moles/Vol] 110 mmol/L High 98-107 [facility] Comment on above: Performed By: #### L [id number] ####Registered Nurse Step Down: NED PAK ([id number])[facility])[address] [place] [address] CO2 [Moles/Vol] 20 mmol/L Low 22-30 [facility] Comment on above: Performed By: #### L [id number] ####Registered Nurse Step Down: NED PAK ([id number])[facility])[address] [place] [address] Creatinine [Mass/Vol] 0.77 mg/dL Normal 0.52-1.04 [facility] Comment on above: Performed By: #### L [id number] ####Registered Nurse Step Down: NED PAK ([id number])[facility])[address] [place] [address] GLOMERULAR FILTRATION RATE ML/MIN/1.73 SQ M.PREDICTED 69.0 mL/min/1.73m*2 Normal >60.0 [facility] Comment on above: Result Comment: Calc ulation based on the Chronic Kidney Disease Epidemiology Collaboration (CKD-EPI) equation refit without adjustment for race Performed By: #### L [id number] ####Registered Nurse Step Down: NED PAK ([id number])[facility])[address] [place] [address] Glucose [Mass/Vol] 172 mg/dL High 70-100 [facility] Comment on above: Performed By: #### L [id number] ####Registered Nurse Step Down: NED PAK ([id number])[facility])[address] [place] [address] Potassium [Moles/Vol] 4.6 mmol/L Normal 3.5-5.1 [facility] Comment on above: Performed By: #### L [id number] ####Registered Nurse Step Down: NED PAK ([id number])[facility])[address] [place] [address] Sodium [Moles/Vol] 142 mmol/L Normal 135-145 [facility] Comment on above: Performed By: #### L [id number] ####Registered Nurse Step Down: NED PAK ([id number])[facility] ([facility])[address] [place] [address] Urea nitrogen [Mass/Vol] 15 mg/dL Normal 7-17 [facility] Comment on above: Performed By: #### L [id number] ####Registered Nurse Step Down: NED PAK ([id number])[facility] ([facility])[address] [place] [address] CARECOORDon 12-18-2022 CARECOORD Normal [facility] CBC (HEMOGRAM)on 12-18-2022 Erythrocyte distribution width (RBC) [Ratio] 13.7 % Normal 11.5-14.5 [facility] Comment on above: Performed By: #### L [id number] ####Registered Nurse Step Down: NED PAK ([id number])[facility])[address] [place] [address] ERYTHROCYTE MEAN CORPUSCULAR HEMOGLOBIN CONCENTRATION (G/DL) BY AUTOMATED 34.3 % Normal 32.0-36.0 [facility] Comment on above: Performed By: #### L [id number] ####Registered Nurse Step Down: NED PAK ([id number])[facility] ([facility])[address] [place] [address] Hematocrit (Bld) [Volume fraction] 32.3 % Low 35.0-47.0 [facility] Comment on above: Performed By: #### L [id number] ####Registered Nurse Step Down: NED PAK ([id number])[facility])[address] [place] [address] Hemoglobin (Bld) [Mass/Vol] 11.1 g/dL Low 11.7-16.0 [facility] Comment on above: Performed By: #### L [id number] ####Registered Nurse Step Down: NED PAK ([id number])[facility])[address] [place] [address] MCH (RBC) [Entitic mass] 29.8 pg Normal 26.0-34.0 [facility] Comment on above: Performed By: #### L [id number] ####Registered Nurse Step Down: NED PAK ([id number])[facility])[address] [place] [address] MCV (RBC) [Entitic vol] 86.8 fL Normal 80.0-98.0 [facility] Comment on above: Performed By: #### L [id number] ####Registered Nurse Step Down: NED PAK ([id number])[facility])[address] [place] [address] Platelet mean volume (Bld) [Entitic vol] 7.3 fL Low 7.4-12.4 [facility] Comment on above: Performed By: #### L [id number] ####Registered Nurse Step Down: NED PAK ([id number])[facility])[address] [place] [address] PLATELETS (10*3/UL) IN BLOOD AUTOMATED COUNT 153 10*3/uL Normal 140-440 [facility] Comment on above: Performed By: #### L [id number] ####Registered Nurse Step Down: NED PAK ([id number])[facility])[address] [place] [address] RBC (Bld) [#/Vol] 3.72 10*6/uL Low 3.8-5.20 [facility] Comment on above: Performed By: #### L [id number] ####Registered Nurse Step Down: NED PAK ([id number])[facility])[address] [place] [address] WBC (Bld) [#/Vol] 21.8 10*3/uL High 3.6-10.7 [facility] Comment on above: Performed By: #### L [id number] ####Registered Nurse Step Down: NED PAK ([id number])[facility])[address] [place] [address] COMPLETE URINALYSISon 2022 BACTERIA (#/HPF) IN URINE Negative Normal Negative [facility] Comment on above: Performed By: #### L [id number] ####Registered Nurse Step Down: NED PAK ([id number])[facility] [place] [address] BILIRUBIN, TOTAL PRESENCE IN URINE Negative Normal Negative [facility] Comment on above: Performed By: #### L [id number] ####Registered Nurse Step Down: NED PAK ([id number])[facility] [place] [address] Clarity (U) Turbid Abnormal Clear [facility] Comment on above: Performed By: #### L [id number] ####Registered Nurse Step Down: NED PAK ([id number])[facility] ([facility])[address] [place] [address] Color (U) Light Nolan Abnormal Lt. Yellow [facility] Comment on above: Performed By: #### L [id number] ####Registered Nurse Step Down: NED PAK ([id number])[facility] ([facility])[address] [place] [address] GLUCOSE (MG/DL) IN URINE Normal Normal Normal (<70) [facility] Comment on above: Performed By: #### L [id number] ####Registered Nurse Step Down: NED PAK ([id number])[facility] ([facility])[address] [place] [address] HEMOGLOBIN PRESENCE IN URINE >1.0 Abnormal Negative [facility] Comment on above: Performed By: #### L [id number] ####Registered Nurse Step Down: NED PAK ([id number])[facility] [place] [address] HYALINE CASTS (#/LPF) IN URINE SEDIMENT BY MICROSCOPY Negative Normal Negative [facility] Comment on above: Performed By: #### L [id number] ####Registered Nurse Step Down: NED PAK ([id number])[facility] ([facility])[address] [place] [address] Ketones Ql (U) 10 mg/dL Abnormal Negative [facility] Comment on above: Performed By: #### L [id number] ####Registered Nurse Step Down: NED PAK ([id number])[facility] [place] [address] LEUKOCYTE ESTERASE PRESENCE IN URINE BY TEST STRIP 25 Danielito/uL Abnormal Negative [facility] Comment on above: Performed By: #### L [id number] ####Registered Nurse Step Down: NED PAK ([id number])[facility] ([facility])[address] [place] [address] MUCUS (#/LPF) IN URINE SEDIMENT Few Normal Negative [facility] Comment on above: Performed By: #### L [id number] ####Registered Nurse Step Down: NED PAK ([id number])[facility] ([facility])[address] [place] [address] NITRITE PRESENCE IN URINE Negative Normal Negative [facility] Comment on above: Performed By: #### L [id number] ####Registered Nurse Step Down: NED PAK ([id number])[facility])[address] [place] [address] pH (U) 5.0 [pH] Normal 5.0-8.0 [facility] Comment on above: Performed By: #### L [id number] ####Registered Nurse Step Down: NED PAK ([phone])[facility])[address] [place] [address] Protein (U) [Mass/Vol] 50 mg/dL Abnormal Negative [facility] Comment on above: Performed By: #### L [id number] ####Registered Nurse Step Down: NED PAK ([id number])[facility])[address] [place] [address] RBC (#/HPF) IN URINE SEDIMENT >100 Abnormal 0-2 [facility] Comment on above: Performed By: #### L [id number] ####Registered Nurse Step Down: NED PAK ([id number])[facility])[address] [place] [address] Specific gravity (U) [Rel density] 1.026 Normal 1.005-1.03 0 [facility] Comment on above: Performed By: #### L [id number] ####Registered Nurse Step Down: NED PAK ([id number])[facility] ([facility])[address] [place] [address] SQUAMOUS EPITHELIAL CELLS (#/HPF) IN URINE SEDIMENT Negative Normal 3-5 [facility] Comment on above: Performed By: #### L [id number] ####Registered Nurse Step Down: NED PAK ([id number])[facility] ([facility])[address] [place] [address] UROBILINOGEN (MG/DL) IN URINE Normal Normal Normal (0-1) [facility] Comment on above: Performed By: #### L [id number] ####Registered Nurse Step Down: NED PAK ([id number])[facility] ([facility])[address] [place] [address] WBC (LEUKOCYTE) (#/HPF) IN URINE SEDIMENT 26-50 Abnormal 0-5 [facility] Comment on above: Performed By: #### L [id number] ####Registered Nurse Step Down: NED PAK ([id number])[facility] ([facility] [place] [address] CT CERVICAL SPINE WO IV CONT RASTon 12-18-2022 CT CERVICAL SPINE WO IV CONTRAST Normal [facility] CT HEAD NECK ANGIO W AND WO IV CONTRASTon 12-18-2022 CT HEAD NECK ANGIO W AND WO IV CONTRAST Normal [facility] CT HEAD WO IV CONTRASTon CT HEAD WO IV CONTRAST Normal [facility] CT HEAD WO IV CONTRAST Normal [facility] CT MAXILLOFACIAL WO IV CONTR Miranda 12-18-2022 CT MAXILLOFACIAL WO IV CONTRAST Normal [facility] Consulton 12-18-2022 Consult Normal [facility] Consult Normal [facility] Consult Normal [facility] Consult Normal [facility] ECG 12-LEADon 12-18-2022 ECG 12-LEAD IMPRESSION: Sinus tachycardia Multiple ventricular premature complexes Left ventricular hypertrophy Electronically Signed On 12-18-2022 14:12:00 EDT by Imelda Manzano Normal [facility] HEMOGLOBIN AND HEMATOCRIT, B LOODon 12-18-2022 Hematocrit (Bld) [Volume fraction] 27.6 % Low 35.0-47.0 [facility] Comment on above: Performed By: #### L [id number] ####Registered Nurse Step Down: NED PAK ([id number])[facility])[address] [place] [address] Hemoglobin (Bld) [Mass/Vol] 9.1 g/dL Low 11.7-16.0 [facility] Comment on above: Performed By: #### L [id number] ####Registered Nurse Step Down: NED PAK ([id number])[facility])[address] [place] [address] Hematocrit (Bld) [Volume fraction] 28.4 % Low 35.0-47.0 [facility] Comment on above: Performed By: #### L [id number] ####Registered Nurse Step Down: NED PAK ([id number])[facility])[address] [place] [address] Hemoglobin (Bld) [Mass/Vol] 9.2 g/dL Low 11.7-16.0 [facility] Comment on above: Performed By: #### L [id number] ####Registered Nurse Step Down: NED PAK ([id number])[facility])[address] [place] [address] Hematocrit (Bld) [Volume fraction] 27.1 % Low 35.0-47.0 [facility] Comment on above: Performed By: #### L [id number] ####Registered Nurse Step Down: NED PAK ([id number])[facility])[address] [place] [address] Hemoglobin (Bld) [Mass/Vol] 9.3 g/dL Low 11.7-16.0 [facility] Comment on above: Performed By: #### L [id number] ####Registered Nurse Step Down: NED PAK ([id number])[facility])[address] [place] [address] LACTIC ACID WITH REFLEXon Lactate [Moles/Vol] 3.1 mmol/L High 0.7-2.0 [facility] Comment on above: Performed By: #### L [id number] ####Registered Nurse Step Down: NED PAK ([id number])[facility] ([facility])[address] [place] [address] Lactate [Moles/Vol] 4.5 mmol/L Critically high 0.7-2.0 [facility] Comment on above: Performed By: #### L [id number] ####Registered Nurse Step Down: NED PAK ([id number])[facility] ([facility])[address] [place] [address] Lactate [Moles/Vol] 3.7 mmol/L High 0.7-2.0 [facility] Comment on above: Performed By: #### L [id number] ####Registered Nurse Step Down: NED PAK ([id number])[facility] ([facility])[address] [place] [address] Lactate [Moles/Vol] 4.7 mmol/L Critically high 0.7-2.0 [facility] Comment on above: Performed By: #### L [id number] ####Registered Nurse Step Down: NED PAK ([id number])[facility])[address] [place] [address] Progress Noteon 12-18-2022 Progress Note Normal [facility] Progress Note Normal [facility] Progress Note [...] [facility] Progress [facility] Normal [facility] Progress Note Normal [facility] Progress Note Normal [facility] Progress Note Normal [facility] XR CHEST 1 VIEWon 12-18-2022 XR CHEST 1 VIEW Normal [facility] SHS BASIC METABOLIC PANELon 11-21 Anion gap [Moles/Vol] 16 mmol/L High 3-13 [facility] Comment on above: Performed By: #### L AB15, LAB46, IYS776, WJN190 ####Registered Nurse Step Down: NED PAK ([phone])[facility])[address] [place] [address] Calcium [Mass/Vol] 9.2 mg/dL Normal 8.4-10.4 [facility] Comment on above: Performed By: #### L AB15, LAB46, PTV642, OOR046 ####Registered Nurse Step Down: NED PAK ([id number])[facility])[address] [place] [address] Chloride [Moles/Vol] 111 mmol/L High 98-107 [facility] Comment on above: Performed By: #### L AB15, LAB46, JPN484, AHW868 ####Registered Nurse Step Down: NED PAK ([id number])[facility])[address] [place] [address] CO2 [Moles/Vol] 18 mmol/L Low 22-30 [facility] Comment on above: Performed By: #### L AB15, LAB46, TJN003, MQN512 ####Registered Nurse Step Down: NED PAK ([id number])[facility])[address] [place] [address] Creatinine [Mass/Vol] 0.80 mg/dL Normal 0.52-1.04 [facility] Comment on above: Performed By: #### L AB15, LAB46, WNC772, DAZ592 ####Registered Nurse Step Down: NED PAK ([id number])[facility])[address] [place] [address] GLOMERULAR FILTRATION RATE ML/MIN/1.73 SQ M.PREDICTED 65.9 mL/min/1.73m*2 Normal >60.0 [facility] Comment on above: Result Comment: Calc ulation based on the Chronic Kidney Disease Epidemiology Collaboration (CKD-EPI) equation refit without adjustment for race Performed By: #### L AB15, LAB46, NPE733, UEC923 ####Registered Nurse Step Down: NED PAK ([id number])[facility])[address] [place] [address] Glucose [Mass/Vol] 132 mg/dL High 70-100 [facility] Comment on above: Performed By: #### L AB15, LAB46, FUL680, TXS727 ####Registered Nurse Step Down: NED PAK ([id number])[facility] ([facility])[address] [place] [address] Potassium [Moles/Vol] 3.3 mmol/L Low 3.5-5.1 [facility] Comment on above: Performed By: #### L AB15, LAB46, NUF958, GGF216 ####Registered Nurse Step Down: NED PAK ([id number])[facility] ([facility])[address] [place] [address] Sodium [Moles/Vol] 144 mmol/L Normal 135-145 [facility] Comment on above: Performed By: #### L AB15, LAB46, BHI281, GNF765 ####Registered Nurse Step Down: NED PAK ([id number])[facility] ([facility])[address] [place] [address] Urea nitrogen [Mass/Vol] 19 mg/dL High 7-17 [facility] Comment on above: Performed By: #### L AB15, LAB46, FTM128, IXV194 ####Registered Nurse Step Down: NED PAK ([id number])[facility] ([facility])[address] [place] [address] BLOOD TYPE AND SCREEN GELon 12-17-2022 ABO GROUPING A Normal [facility] Comment on above: Performed By: #### L [id number] ####Registered Nurse Step Down: NED PAK ([id number])[facility] ([facility])[address] [place] [address] RH TYPE IN BLOOD Positive Normal [facility] Comment on above: Performed By: #### L [id number] ####Registered Nurse Step Down: NED PAK ([id number])[facility] ([facility])[address] [place] [address] [place] CBC WITH AUTO DIFFERENTIALon 12-17-2022 Erythrocyte distribution width (RBC) [Ratio] 13.5 % Normal 11.5-14.5 [facility] Comment on above: Performed By: #### L [id number], [id number] ####Registered Nurse Step Down: NED PAK ([id number])[facility])[address] [place] [address] ERYTHROCYTE MEAN CORPUSCULAR HEMOGLOBIN CONCENTRATION (G/DL) BY AUTOMATED 32.8 % Normal 32.0-36.0 [facility] Comment on above: Performed By: #### Tameka YR2530, [id number] ####Registered Nurse Step Down: NED PAK ([id number])[address] Hematocrit (Bld) [Volume fraction] 35.0 % Normal 35.0-47.0 [facility] Comment on above: Performed By: #### Tameka YB1164, [id number] ####Registered Nurse Step Down: NED PAK ([id number])[address] Hemoglobin (Bld) [Mass/Vol] 11.5 g/dL Low 11.7-16.0 [facility] Comment on above: Performed By: #### Tameka [id number], [id number] ####Registered Nurse Step Down: NED PAK ([id number])[address] MCH (RBC) [Entitic mass] 28.9 pg Normal 26.0-34.0 [facility] Comment on above: Performed By: #### Tameka [id number], [id number] ####Registered Nurse Step Down: NED PAK ([id number])[address] MCV (RBC) [Entitic vol] 88.2 fL Normal 80.0-98.0 [facility] Comment on above: Performed By: #### L RE6436, IAB9071 ####Registered Nurse Step Down: NED PAK ([phone])[facility] ([facility])[address] [place] [address] [place] Platelet mean volume (Bld) [Entitic vol] 7.1 fL Low 7.4-12.4 [facility] Comment on above: Performed By: #### L [id number], [id number] ####Registered Nurse Step Down: NED PAK ([id number])[facility] ([facility])[address] [place] [address] PLATELETS (10*3/UL) IN BLOOD AUTOMATED COUNT 197 10*3/uL Normal 140-440 [facility] Comment on above: Performed By: #### L [id number], USQ7488 ####Registered Nurse Step Down: NED PAK ([id number])[facility] ([facility])[address] [place] [address] RBC (Bld) [#/Vol] 3.97 10*6/uL Normal 3.8-5.20 [facility] Comment on above: Performed By: #### L [id number], [id number] ####Registered Nurse Step Down: NED PAK ([id number])[facility] ([facility])[address] [place] [address] WBC (Bld) [#/Vol] 27.2 10*3/uL High 3.6-10.7 [facility] Comment on above: Performed By: #### L [id number], [id number] ####Registered Nurse Step Down: NED PAK ([phone])[facility] ([facility])[address] [place] [address] CT CHEST ABDOMEN PELVIS W CO NTRASTon 12-17-2022 CT CHEST ABDOMEN PELVIS W CONTRAST Normal [facility] Consulton 12-17-2022 Consult Normal [facility] Consult Normal [facility] DRUGS OF ABUSEon 12-17-2022 AMPHETAMINE SCREEN Negative Normal [facility] Comment on above: Performed By: #### L [id number] ####Registered Nurse Step Down: NED PAK ([id number])[facility])[address] [place] [address] BARBITURATES SCREEN Negative Normal [facility] Comment on above: Performed By: #### L [id number] ####Registered Nurse Step Down: NED [id number])[facility] [place] [address] BENZODIAZEPINE SCREEN Negative Normal [facility] Comment on above: Performed By: #### L [id number] ####Registered Nurse Step Down: NED PAK ([id number])[facility] ([facility])[address] [place] [address] COCAINE METAB. SCREEN Negative Normal [facility] Comment on above: Performed By: #### L [id number] ####Registered Nurse Step Down: NED PAK ([id number])[facility] [place] [address] METHADONE SCREEN Negative Normal [facility] Comment on above: Performed By: #### L [id number] ####Registered Nurse Step Down: NED PAK ([id number])[facility] ([facility])[address] [place] [address] OPIATES SCREEN Positive Normal [facility] Comment on above: Performed By: #### L [id number] ####Registered Nurse Step Down: NED PAK ([id number])[facility] ([facility] [place] [address] OXYCODONE SCREEN Negative Normal [facility] Comment on above: Performed By: #### L [id number] ####Registered Nurse Step Down: NED PAK ([id number])[facility] ([facility])[address] [place] [address] PHENCYCLIDINE SCREEN Negative Normal [facility] Comment on [...] under separate order. Performed By: #### L [id number] ####Registered Nurse Step Down: NED PAK ([id number])[address] ED Nursing Noteon 12-17-2022 ED Nursing Note Blood Bank called/MT P ordered by Jenni ABERNATHY (verbal order per ). Amalia Juares RN 12/17/22 1703 Normal [facility] ED Provider Noteon ED Provider Note Normal [facility] ETHANOLon 12-17-2022 ETHANOL IN SER/PLAS <0.010 Normal 0.000-0. 01 0 [facility] Comment on above: Result Comment: SANDRA Baker COMMENTS:NOTE: This result is for medical treatment only. Analysis performed using non-forensic procedures. Performed By: #### L AB15, LAB46, XAF717, [id number] ####Registered Nurse Step Down: NED PAK ([id number])[facility])[address] [place] [address] HEMOGLOBIN AND HEMATOCRIT, B LOODon 12-17-2022 Hematocrit (Bld) [Volume fraction] 37.7 % Normal 35.0-47.0 [facility] Comment on above: Performed By: #### L [id number] ####Registered Nurse Step Down: NED PAK ([id number])[address] Hemoglobin (Bld) [Mass/Vol] 12.5 g/dL Normal 11.7-16.0 [facility] Comment on above: Performed By: #### L [id number] ####Registered Nurse Step Down: NED PAK ([phone])[address] LACTIC ACID WITH REFLEXon Lactate [Moles/Vol] 4.3 mmol/L Critically high 0.7-2.0 [facility] Comment on above: Performed By: #### L [id number] ####Registered Nurse Step Down: NED [id number])[facility])[address] [place] [address] Lactate [Moles/Vol] 3.2 mmol/L High 0.7-2.0 [facility] Comment on above: Performed By: #### L [id number] ####Registered Nurse Step Down: NED PAK ([id number])[facility])[address] [place] [address] MAGNESIUMon 12-17-2022 Magnesium [Mass/Vol] 2.0 mg/dL Normal 1.6-2.3 [facility] Comment on above: Performed By: #### L AB15, LAB46, ZCJ187, IXU040 ####Registered Nurse Step Down: NED PAK ([id number])[address] MANUAL DIFFERENTIALon 2022 BAND NEUTROPHILS (10*3/UL) BLOOD MANUAL COUNT 0.7 10*3/uL High <=0.0 [facility] Comment on above: Result Comment: This is an appended report. These results have been appended to a previously final verified report. Performed By: #### L [id number], DET1327 ####Registered Nurse Step Down: NED PAK ([id number])[address] BAND NEUTROPHILS TOTAL PER COUNTED LEUKOCYTES BY MANUAL COUNT 5 Normal [facility] Comment on above: Result Comment: This is an appended report. These results have been appended to a previously final verified report. Performed By: #### L NQ1319, [id number] ####Registered Nurse Step Down: NED PAK ([id number])[address] LANEY CELLS PRESENCE IN BLOOD BY LIGHT MICROSCOPY Rare Abnormal (none) [facility] Comment on above: Result Comment: This is an appended report. These results have been appended to a previously final verified report. Performed By: #### L MC7069, [id number] ####Registered Nurse Step Down: NED PAK ([id number])[facility] CELLS COUNTED TOTAL (#) IN BLOOD 200 Normal [facility] Comment on above: Result Comment: This is an appended report. These results have been appended to a previously final verified report. Performed By: #### L ML6427, [id number] ####Registered Nurse Step Down: NED PAK ([id number])[address] DIFFERENTIAL METHOD Manual differential performed Normal [facility] Comment on above: Result Comment: This is an appended report. These results have been appended to a previously final verified report. Performed By: #### L EY0611, DYG9218 ####Registered Nurse Step Down: NED PAK ([id number])[address] ELLIPTOCYTES IN BLOOD BY LIGHT MICROSCOPY Rare Abnormal (none) [facility] Comment on above: Result Comment: This is an appended report. These results have been appended to a previously final verified report. Performed By: #### L AW7514, [id number] ####Registered Nurse Step Down: NED PAK ([id number])[address] LEUKOCYTE MORPHOLOGY FINDING IN BLOOD Normal [facility] Comment on above: Result Comment: [place] ected result: Previously reported as Normal (reference range: ) on 12/17/2022 at 1645 EDT. Performed By: #### L [id number], ####Registered Nurse Step Down: NED PAK ([id number])[facility])[address] [place] [address] LEUKOCYTES (10*3/UL) NUCLEATED ERYTHROCYTE ADJUST 27.2 10*3/uL High 3.6-10.7 [facility] Comment on above: Performed By: #### L [id number], KPU0655 ####Registered Nurse Step Down: NED PAK ([id number])[address] LYMPHOCYTES (10*3/UL) IN BLOOD BY MANUAL COUNT 2.3 10*3/uL Normal 1.0-4.3 [facility] Comment on above: Result Comment: This is an appended report. These results have been appended to a previously final verified report. Performed By: #### L RR2127, [id number] ####Registered Nurse Step Down: NED PAK ([phone])[facility])[address] [place] [address] [place] LYMPHOCYTES TOTAL PER COUNTED LEUKOCYTES BY MANUAL COUNT 17 Normal [facility] Comment on above: Result Comment: This is an appended report. These results have been appended to a previously final verified report. Performed By: #### L HP2647, VTU6367 ####Registered Nurse Step Down: NED PAK ([id number])[facility])[address] [place] [address] LYMPHOCYTES/100 LEUKOCYTES IN BLOOD BY MANUAL COUNT 9 % Low 20-40 [facility] Comment on above: Result Comment: This is an appended report. These results have been appended to a previously final verified report. Performed By: #### L IY4883, OOB3890 ####Registered Nurse Step Down: NED PAK ([id number])[facility])[address] [place] [address] [place] METAMYELOCYTES (10*3/UL) IN BLOOD BY MANUAL COUNT 0.7 10*3/uL High <=0.0 [facility] Comment on above: Result Comment: This is an appended report. These results have been appended to a previously final verified report. Performed By: #### L KM2198, [id number] ####Registered Nurse Step Down: NED PAK ([id number])[facility])[address] [place] [address] [place] METAMYELOCYTES TOTAL PER COUNTED LEUKOCYTES BY MANUAL COUNT 5 Normal [facility] Comment on above: Result Comment: This is an appended report. These results have been appended to a previously final verified report. Performed By: #### L WO6723, KAB8239 ####Registered Nurse Step Down: NED PAK ([id number])[facility])[address] [place] [address] [place] METAMYELOCYTES/100 LEUKOCYTES IN BLOOD BY MANUAL COUNT 3 % High <=0 [facility] Comment on above: Result Comment: This is an appended report. These results have been appended to a previously final verified report. Performed By: #### L KY1722, [id number] ####Registered Nurse Step Down: NED PAK ([id number])[facility])[address] [place] [address] [place] MONOCYTES (10*3/UL) IN BLOOD BY MANUAL COUNT 0.5 10*3/uL Normal 0.0-0.8 [facility] Comment on above: Result Comment: This is an appended report. These results have been appended to a previously final verified report. Performed By: #### L [id number], UPM3634 ####Registered Nurse Step Down: NED PAK ([id number])[facility])[address] [place] [address] [place] MONOCYTES TOTAL PER COUNTED LEUKOCYTES BY MANUAL COUNT 4 Normal [facility] Comment on above: Result Comment: This is an appended report. These results have been appended to a previously final verified report. Performed By: #### L SP1412, [id number] ####Registered Nurse Step Down: NED PAK ([phone])[facility])[address] [place] [address] MONOCYTES/100 LEUKOCYTES IN BLOOD BY MANUAL COUNT 2 % Normal 2-10 [facility] Comment on above: Result Comment: This is an appended report. These results have been appended to a previously final verified report. Performed By: #### L EL6612, [id number] ####Registered Nurse Step Down: NED PAK ([id number])[facility])[address] [place] [address] [place] NEUTROPHILS (SEGS+BANDS) (10*3/UL) BY MANUAL COUNT 23.7 10*3/uL High 1.8-7.0 [facility] Comment on above: Result Comment: This is an appended report. These results have been appended to a previously final verified report. Performed By: #### L OF7678, FBP5600 ####Registered Nurse Step Down: NED PAK ([id number])[facility])[address] [place] [address] NEUTROPHILS BAND FORM/100 LEUKOCYTES IN BLOOD BY MANUAL COUNT 3 % High <=0 [facility] Comment on above: Result Comment: This is an appended report. These results have been appended to a previously final verified report. Performed By: #### L [id number], [id number] ####Registered Nurse Step Down: NED PAK ([id number])[facility])[address] [place] [address] NEUTROPHILS TOTAL PER COUNTED LEUKOCYTES BY MANUAL COUNT 169 Normal [facility] Comment on above: Result Comment: This is an appended report. These results have been appended to a previously final verified report. Performed By: #### L [id number], [id number] ####Registered Nurse Step Down: NED PAK ([id number])[facility])[address] [place] [address] PLATELET MORPHOLOGY IN BLOOD Normal Normal [facility] Comment on above: Performed By: #### L BS5230, OYF7110 ####Registered Nurse Step Down: NED PAK ([phone])[facility])[address] [place] [address] POIKILOCYTOSIS (PRESENCE) IN BLOOD BY LIGHT MICROSCOPY Rare Abnormal (none) [facility] Comment on above: Result Comment: This is an appended report. These results have been appended to a previously final verified report. Performed By: #### L MB1510, VMX7780 ####Registered Nurse Step Down: NED PAK ([id number])[facility])[address] [place] [address] RBC MORPHOLOGY IN BLOOD Normal [facility] Comment on above: Result Comment: [place] ected result: Previously reported as Normal (reference range: ) on 12/17/2022 at 1645 EDT. Performed By: #### L MD5997, [id number] ####Registered Nurse Step Down: NED PAK ([id number])[facility])[address] [place] [address] SEGEMENTED NEUTROPHILS/100 LEUKOCYTES BY MANUAL COUNT 85 % High 40-80 [facility] Comment on above: Result Comment: This is an appended report. These results have been appended to a previously final verified report. Performed By: #### L EI1177, GYS1078 ####Registered Nurse Step Down: NED PAK ([id number])[address] SEGMENTED NEUTROPHILS (10*3/UL)IN BLOOD BY MANUAL COUNT 23.7 10*3/uL High 1.8-7.0 [facility] Comment on above: Result Comment: This is an appended report. These results have been appended to a previously final verified report. Performed By: #### L [id number], [id number] ####Registered Nurse Step Down: NED PAK ([id number])[address] VACUOLATED NEUTROPHILS PRESENCE IN BLOOD BY LIGHT MICROSCOPY (PRESENT) Present Abnormal (none) [facility] Comment on above: Result Comment: This is an appended report. These results have been appended to a previously final verified report. Performed By: #### L GO7078, [id number] ####Registered Nurse Step Down: NED PAK ([id number])[address] Nursing Noteon 12-17-2022 Nursing Note Patient daughter Car ol Mast requesting confidential status be removed from chart. Change made as per request. Admitting notified. Normal [facility] PHOSPHORUSon 12-17-2022 Phosphate [Mass/Vol] 2.9 mg/dL Normal 2.5-4.5 [facility] Comment on above: Performed By: #### L AB15, LAB46, WVQ713, NFY498 ####Registered Nurse Step Down: NED PAK ([id number])[facility])[address] [place] [address] PROTIME AND APTTon aPTT Coag (Bld) [Time] 23.7 s Normal 20.0-30.5 [facility] Comment on above: Performed By: #### L [id number] ####Registered Nurse Step Down: NED PAK ([id number])[facility] ([facility])[address] [place] [address] INR Coag (PPP) [Relative time] 1.1 {INR} Normal 0.9-1.1 [facility] Comment on above: Result Comment: Sadi [...] prevent Myocardial Infarction Performed By: #### L [id number] ####Registered Nurse Step Down: NED PAK ([id number])[facility] ([facility])[address] [place] [address] PT Coag (PPP) [Time] 11.4 s Normal 9.0-12.0 [facility] Comment on above: Performed By: #### L [id number] ####Registered Nurse Step Down: NED PAK ([id number])[facility] ([facility])[address] [place] [address] HAND LT MIN 3 VIEWSon 2022 HAND LT MIN 3 VIEWS [place] [address] Patient: ZOILA WEBSTER Phone#: : [phone] Age: 77 Gender: F Pt. Type: ER Account: [id number] Location: 052 Ordering: DR. BIPIN WILD Exam Date: 12/08/2022/19:57 Family Phys: REGINALDO RILEYANTONI Charge Code: 013817 Physician: Hyde Order #: [id number] Dose#: PROCEDURE: X-RAY HAND LT COMPLETE 3 [...] Hernandez MD on 12/09/2022 at 8:40 Normal [facility] Final Surgical Pathology Rep [facility] 11-24-2022 Final Surgical Pathology Report . Pathology Reports Accession: Collected Date/Time: Received Date/Time: Pathologist: [id number] 11/17/2022 13:51 EDT 11/20/2022 13:51 EDT MD LUCA GAUTAM Final Surgical Pathology Report DIAGNOSIS: A. DESCENDING COLON, 60 CM, BIOPSY: - MINIMAL NONSPECIFIC ACUTE INFLAMMATION WITH FOCAL SURFACE EROSION AND REACTIVE CHANGES B. SIGMOID COLON, BIOPSY: - FOCAL NONSPECIFIC SURFACE EROSION WITH MINIMAL ACUTE INFLAMMATION AND REACTIVE CHANGES COMMENT: [facility] - [id number] CLINICAL INFORMATION: COLITIS SPECIMEN: A DESCENDING COLON @ 60 CM B SIGMOID COLON GROSS DESCRIPTION: All parts labelled with patient name and [id number] A. Received in formalin, labeled descending colon, [...] Electronically Signed by Pathology Report verified by [facility] LUCA GAUTAM MD Sign out Date: 11/24/2022 10:51 Performing Lab: [facility], [address] [place] [address] Pathology Dept Disclaimer If ancillary studies were utilized, the following Laboratory Developed Test (LDT) disclaimer will apply: Under CLIA requirements, [facility] is qualified to perform high complexity testing. For all ancillary stains, positive and negative controls stain appropriately. Performance characteristics of immunohistochemical and chromogenic in-situ hybridization tests have been determined by [facility]. These tests are used for clinical purposes, They should not be regarded as investigational or for research. Normal [facility] ([place]) URINE CULTURE [CCL]on 2022 Bacteria identified Cx [...] and its performance characteristics determined by the [facility] [place] ([facility]). It has not been cleared or approved by the FDA. -[facility] is regulated under CLIA as qualified to perform high-complexity testing. This test is used for clinical purposes. It should not be regarded as investigational or for research. SOURCE: URINE [facility] [address] [place] [address] Elgin Long III, M.D. [id number] SEND TO IC NO Normal [facility] Comment on above: Performed By: #### 2 [id number] #### [facility],[address] [place] [address] BMP with MG DAILYon 11-20-19 23 AGE 77 years Normal [facility] Comment on above: Performed By: #### 2 [id number] #### [facility],[address] [place] [address] Anion gap [Moles/Vol] 12 mmol/L Normal - [facility] Comment on above: Performed By: #### 2 [id number] #### [facility],[address] [place] [address] BMP with MG DAILY Normal [facility] Comment on above: Result Comment: [facility] METABOLIC PANEL Performed By: #### 2 [id number] #### [facility],[address] [place] [address] 08408 Calcium [Mass/Vol] 8.2 mg/dL Low 8.5 - 10.1 [facility] Comment on above: Performed By: #### 2 69469 #### [facility],[address] [place] [address] 53471 Chloride [Moles/Vol] 112 mmol/L High 98 - 107 [facility] Comment on above: Performed By: #### 2 84528 #### [facility],[address] [place] [address] 43912 CO2 [Moles/Vol] 23.8 mmol/L Normal 21.0 - 32.0 [facility] Comment on above: Performed By: #### 2 80438 #### [facility],[address] [place] [address] 94928 Creatinine [Mass/Vol] 0.73 mg/dL Normal 0.55 - 1.02 [facility] Comment on above: Performed By: #### 2 49426 #### [facility],[address] [place] [address] 28851 GFR/1.73 sq M.predicted among non-blacks MDRD (S/P/Bld) [Vol rate/Area] mL/min/{1.73_m2} Normal 60 - 999 [facility] Comment on above: Performed By: #### 2 36201 #### [facility],[address] [place] [address] 28882 Result Comment: {LL] {II] {HH] ACCORDING TO THE NATIONAL KIDNEY DISEASE EDUCATION PROGRAM(NKDE), A NORMAL eGFR IS A VALUE GREATER THAN OR EQUAL TO 60 ML/MIN/1.73 SQ METERS. CHRONIC KIDNEY DISEASE: <60mL/MIN/1.73 SQ METERS KIDNEY FAILURE: <15mL/MIN/1.73 SQ METERS THIS TEST SHOULD ONLY BE USED FOR PATIENTS 18 YEARS OF AGE AND OLDER. Glucose [Mass/Vol] 94 mg/dL Normal 74 - 106 [facility] Comment on above: Performed By: #### 2 34212 #### [address] [address] Magnesium [Mass/Vol] 1.8 mg/dL Normal 1.8 - 2.4 [facility] Comment on above: Performed By: #### 2 59667 #### [address] [address] Potassium [Moles/Vol] 4.0 mmol/L Normal 3.5 - 5.1 [facility] Comment on above: Performed By: #### 2 77877 #### [address] [address] Sodium [Moles/Vol] 144 mmol/L Normal 136 - 145 [facility] Comment on above: Performed By: #### 2 31165 #### [address] [address]91 Urea nitrogen [Mass/Vol] 6 mg/dL Low 7 - 18 [facility] Comment on above: Performed By: #### 2 35541 #### [address] [address] CBC + DIFFon 11-19-2022 Baso # 0.10 x10EE3/UL Normal 0.00 - 0.10 [facility] Comment on above: Performed By: #### 2 78461 #### [address] [address] Basophils/100 WBC (Bld) 0.6 % Normal 0.0 - 2.0 [facility] Comment on above: Performed By: #### 2 38034 #### [facility],[address] [place] [address] 25667 CBC + DIFF Normal [facility] Comment on above: Result Comment: CBC- COMPLETE BLOOD COUNT Performed By: #### 2 18482 #### [facility],[address] [place] [address] 75472 EO # 0.40 x10EE3/UL Normal 0.00 - 0.50 [facility] Comment on above: Performed By: #### 2 01936 #### [facility],[address] [place] [address] 16612 Eosinophils/100 WBC (Bld) 3.3 % Normal 0.0 - 7.0 [facility] Comment on above: Performed By: #### 2 00994 #### [facility],[address] [place] [address] 39702 Erythrocyte distribution width (RBC) [Ratio] 13.3 % Normal 12.0 - 15.6 [facility] Comment on above: Performed By: #### 2 19627 #### [facility],[address] [place] [address] 77598 Hematocrit (Bld) [Volume fraction] 34.3 % Normal 34.0 - 46.0 [facility] Comment on above: Performed By: #### 2 18111 #### [facility],[address] [place] [address] 76572 Hemoglobin (Bld) [Mass/Vol] 11.6 g/dL Low 12.0 - 16.0 [facility] Comment on above: Performed By: #### 2 03375 #### [facility],[address] [place] [address] 79473 Lymph # 2.40 x10EE3/UL Normal 0.80 - 2.80 [facility] Comment on above: Performed By: #### 2 50020 #### [facility],[address] [place] [address] 30239 Lymphocytes/100 WBC (Bld) 21.6 % Normal 20.0 - 45.0 [facility] Comment on above: Performed By: #### 2 40708 #### [facility],[address] [place] [address] MANUAL DIFF N/A Normal [facility] Comment on above: Performed By: #### 2 71542 #### [facility],[address] [place] [address] MCH (RBC) [Entitic mass] 29 pg Normal 27 - 33 [facility] Comment on above: Performed By: #### 2 22512 #### [facility],[address] [place] [address] MCHC 34 X10 3 Normal 32 - 36 [facility] Comment on above: Performed By: #### 2 51157 #### [facility],[address] [place] [address] MCV (RBC) [Entitic vol] 86 fL Normal 80 - 99 [facility] Comment on above: Performed By: #### 2 31495 #### [facility],[address] [place] [address] Baldwin # 0.70 x10EE3/UL Normal 0.20 - 1.00 [facility] Comment on above: Performed By: #### 2 04431 #### [facility],[address] [place] [address] MONOS % 6.2 % Normal 0.0 - 10.0 [facility] Comment on above: Performed By: #### 2 51779 #### [facility],[address] [place] [address] Morphology Kali (Bld) [Interp] N/A Normal [facility] Comment on above: Result Comment: {CD] Performed By: #### 2 49511 #### [facility],[address] [place] [address] Neut # 7.40 x10EE3/UL High 1.50 - 7.10 [facility] Comment on above: Performed By: #### 2 03444 #### [facility],[address] [place] [address] 25789 Neutrophils/100 WBC (Bld) 68.3 % Normal 46.0 - 76.0 [facility] Comment on above: Performed By: #### 2 70288 #### [facility],[address] [place] [address] 79551 PLATELET 240 x10EE3/UL Normal 150 - 450 [facility] Comment on above: Performed By: #### 2 88896 #### [facility],[address] [place] [address] 25087 Platelet mean volume (Bld) [Entitic vol] 7.0 fL Normal 6.6 - 10.5 [facility] Comment on above: Result Comment: AUTO MATED DIFFERENTIAL Performed By: #### 2 63976 #### [facility],[address] [place] [address] 18680 RBC 3.97 x 10EE6/UL Low 4.10 - 5.30 [facility] Comment on above: Performed By: #### 2 43971 #### [facility],[address] [place] [address] 75779 WBC 10.9 x 10EE3/UL High 4.5 - 10.8 [facility] Comment on above: Performed By: #### 2 48518 #### [facility],[address] [place] [address] 86892 BMP with MG DAILYon 11-19-19 23 AGE 77 years Normal [facility] Comment on above: Performed By: #### 2 94403 #### [facility],[address] [place] [address] 27776 Anion gap [Moles/Vol] 15 mmol/L Normal 10 - 20 [facility] Comment on above: Performed By: #### 2 98120 #### [facility],[address] [place] [address] 96119 BMP with MG DAILY Normal [facility] Comment on above: Result Comment: BASI C METABOLIC PANEL Performed By: #### 2 58286 #### [facility],[address] [place] [address] Calcium [Mass/Vol] 8.8 mg/dL Normal 8.5 - 10.1 [facility] Comment on above: Performed By: #### 2 42249 #### [facility],[address] [place] [address] Chloride [Moles/Vol] 110 mmol/L High 98 - 107 [facility] Comment on above: Performed By: #### 2 39863 #### [facility],[address] [place] [address] CO2 [Moles/Vol] 22.9 mmol/L Normal 21.0 - 32.0 [facility] Comment on above: Performed By: #### 2 36268 #### [facility],[address] [place], [place] [id number] Creatinine [Mass/Vol] 0.82 mg/dL Normal 0.55 - 1.02 [facility] Comment on above: Performed By: #### 2 66570 #### [facility],[address] [place], [place] [address] GFR/1.73 sq M.predicted among non-blacks MDRD (S/P/Bld) [Vol rate/Area] mL/min/{1.73_m2} Normal 60 - 999 [facility] Comment on above: Performed By: #### 2 50370 #### [facility],[address] [place] [address] Result Comment: {LL] {II] {HH] ACCORDING TO THE NATIONAL KIDNEY DISEASE EDUCATION PROGRAM(NKDE), A NORMAL eGFR IS A VALUE GREATER THAN OR EQUAL TO 60 ML/MIN/1.73 SQ METERS. CHRONIC KIDNEY DISEASE: <60mL/MIN/1.73 SQ METERS KIDNEY FAILURE: <15mL/MIN/1.73 SQ METERS THIS TEST SHOULD ONLY BE USED FOR PATIENTS 18 YEARS OF AGE AND OLDER. Glucose [Mass/Vol] 101 mg/dL Normal 74 - 106 [facility] Comment on above: Performed By: #### 2 08685 #### [facility],[address] [place] [address] 13808 Magnesium [Mass/Vol] 2.0 mg/dL Normal 1.8 - 2.4 [facility] Comment on above: Performed By: #### 2 61584 #### [facility],[address] [place] [address] 61174 Potassium [Moles/Vol] 3.8 mmol/L Normal 3.5 - 5.1 [facility] Comment on above: Performed By: #### 2 11935 #### [facility],[address] [place] [address] 34003 Sodium [Moles/Vol] 144 mmol/L Normal 136 - 145 [facility] Comment on above: Performed By: #### 2 50692 #### [facility],[address] [place], [place] [address] Urea nitrogen [Mass/Vol] 12 mg/dL Normal 7 - 18 [facility] Comment on above: Performed By: #### 2 21345 #### [facility],[address] [place] [address] 12303 CBC + DIFFon 11-18-2022 Baso # 0.10 x10EE3/UL Normal 0.00 - 0.10 [facility] Comment on above: Performed By: #### 2 12897 #### [facility],[address] [place] [address] 63459 Basophils/100 WBC (Bld) 0.9 % Normal 0.0 - 2.0 [facility] Comment on above: Performed By: #### 2 92076 #### [facility],[address] [place] [address] 43218 CBC + DIFF Normal [facility] Comment on above: Result Comment: CBC- COMPLETE BLOOD COUNT Performed By: #### 2 68845 #### [facility],[address] [place] [address] 26621 EO # 0.20 x10EE3/UL Normal 0.00 - 0.50 [facility] Comment on above: Performed By: #### 2 29138 #### [facility],[address] [place] [address] 68837 Eosinophils/100 WBC (Bld) 1.2 % Normal 0.0 - 7.0 [facility] Comment on above: Performed By: #### 2 51967 #### [facility],[address] [place], [place] [address] Erythrocyte distribution width (RBC) [Ratio] 13.1 % Normal 12.0 - 15.6 [facility] Comment on above: Performed By: #### 2 52056 #### [facility],[address] [place] [address] Hematocrit (Bld) [Volume fraction] 39.9 % Normal 34.0 - 46.0 [facility] Comment on above: Performed By: #### 2 79563 #### [facility],[address] [place] [address] Hemoglobin (Bld) [Mass/Vol] 13.0 g/dL Normal 12.0 - 16.0 [facility] Comment on above: Performed By: #### 2 35974 #### [facility],[address] [place] [address] 45381 Lymph # 2.70 x10EE3/UL Normal 0.80 - 2.80 [facility] Comment on above: Performed By: #### 2 72962 #### [facility],[address] [place] [address] 78882 Lymphocytes/100 WBC (Bld) 19.6 % Low 20.0 - 45.0 [facility] Comment on above: Performed By: #### 2 13723 #### [facility],[address] [place], [place] [id number] MANUAL DIFF N/A Normal [facility] Comment on above: Performed By: #### 2 29136 #### [facility],[address] [place] [address] 02367 MCH (RBC) [Entitic mass] 28 pg Normal 27 - 33 [facility] Comment on above: Performed By: #### 2 63595 #### [facility],[address] [place] [address] 26261 MCHC 33 X10 3 Normal 32 - 36 [facility] Comment on above: Performed By: #### 2 45655 #### [facility],[address] [place] [address] 75344 MCV (RBC) [Entitic vol] 87 fL Normal 80 - 99 [facility] Comment on above: Performed By: #### 2 48592 #### [facility],[address] [place] [address] 40489 Baldwin # 1.10 x10EE3/UL High 0.20 - 1.00 [facility] Comment on above: Performed By: #### 2 04051 #### [facility],[address] [place] [address] 82063 MONOS % 8.0 % Normal 0.0 - 10.0 [facility] Comment on above: Performed By: #### 2 16360 #### [facility],[address] [place] [address] 30983 Morphology Kali (Bld) [Interp] N/A Normal [facility] Comment on above: Result Comment: {CD] Performed By: #### 2 64190 #### [facility],[address] [place] [address] 99526 Neut # 9.70 x10EE3/UL High 1.50 - 7.10 [facility] Comment on above: Performed By: #### 2 45246 #### [facility],[address] [place] [address] 87071 Neutrophils/100 WBC (Bld) 70.3 % Normal 46.0 - 76.0 [facility] Comment on above: Performed By: #### 2 31014 #### [facility],[address] [place] [address] 58951 PLATELET 258 x10EE3/UL Normal 150 - 450 [facility] Comment on above: Performed By: #### 2 55594 #### [facility],[address] [place] [address] 29266 Platelet mean volume (Bld) [Entitic vol] 7.0 fL Normal 6.6 - 10.5 [facility] Comment on above: Result Comment: AUTO MATED DIFFERENTIAL Performed By: #### 2 00669 #### [facility],[address] [place] [address] 10237 RBC 4.61 x 10EE6/UL Normal 4.10 - 5.30 [facility] Comment on above: Performed By: #### 2 44848 #### [facility],[address] [place] [address] 95117 WBC 13.8 x 10EE3/UL High 4.5 - 10.8 [facility] Comment on above: Performed By: #### 2 61416 #### [facility],[address] [place] [address] 92851 APTTon 11-17-2022 aPTT Coag (Bld) [Time] 24.0 s Low 25.4 - 38.4 [facility] Comment on above: Performed By: #### 2 05279 #### [facility],[address] [place] [address] 96919 C-REACTIVE PROTEINon 023 CRP [Mass/Vol] mg/L Normal 0.00 - 0.90 [facility] Comment on above: Performed By: #### 2 09921 #### [facility],[address] [place] [address] 57313 CBC + DIFFon 11-17-2022 Baso # 0.10 x10EE3/UL Normal 0.00 - 0.10 [facility] Comment on above: Performed By: #### 2 31185 #### [facility],[address] [place] [address] 06339 Basophils/100 WBC (Bld) 0.7 % Normal 0.0 - 2.0 [facility] Comment on above: Performed By: #### 2 84067 #### [facility],[address] [place] [address] CBC + DIFF Normal [facility] Comment on above: Result Comment: CBC- COMPLETE BLOOD COUNT Performed By: #### 2 79118 #### [facility],[address] [place] [address] EO # 0.10 x10EE3/UL Normal 0.00 - 0.50 [facility] Comment on above: Performed By: #### 2 75160 #### [facility],[address] [place] [address] Eosinophils/100 WBC (Bld) 0.5 % Normal 0.0 - 7.0 [facility] Comment on above: Performed By: #### 2 47016 #### [facility],[address] [place] [address] Erythrocyte distribution width (RBC) [Ratio] 13.2 % Normal 12.0 - 15.6 [facility] Comment on above: Performed By: #### 2 22989 #### [facility],[address] [place] [address] Hematocrit (Bld) [Volume fraction] 42.6 % Normal 34.0 - 46.0 [facility] Comment on above: Performed By: #### 2 65719 #### [facility],[address] [place] [address] Hemoglobin (Bld) [Mass/Vol] 14.0 g/dL Normal 12.0 - 16.0 [facility] Comment on above: Performed By: #### 2 44948 #### [facility],[address],[place] [address] Lymph # 3.00 x10EE3/UL High 0.80 - 2.80 [facility] Comment on above: Performed By: #### 2 76996 #### [place] [address] Lymphocytes/100 WBC (Bld) 18.2 % Low 20.0 - 45.0 [facility] Comment on above: Performed By: #### 2 41529 #### [facility],[address] [place] [address] MANUAL DIFF N/A Normal [facility] Comment on above: Performed By: #### 2 06701 #### [place] [address] MCH (RBC) [Entitic mass] 28 pg Normal 27 - 33 [facility] Comment on above: Performed By: #### 2 33975 #### [place] [address] MCHC 33 X10 3 Normal 32 - 36 [facility] Comment on above: Performed By: #### 2 46153 #### [place] [address] MCV (RBC) [Entitic vol] 86 fL Normal 80 - 99 [facility] Comment on above: Performed By: #### 2 79588 #### [facility],[address] [place] [address] Baldwin # 1.00 x10EE3/UL Normal 0.20 - 1.00 [facility] Comment on above: Performed By: #### 2 39301 #### [place] [address] MONOS % 6.0 % Normal 0.0 - 10.0 [facility] Comment on above: Performed By: #### 2 49061 #### [place] [address] Morphology Kali (Bld) [Interp] N/A Normal [facility] Comment on above: Result Comment: {CD] Performed By: #### 2 62534 #### [facility],[address] [place] [address] 69472 Neut # 12.10 x10EE3/UL High 1.50 - 7.10 [facility] Comment on above: Performed By: #### 2 62947 #### [facility],[address] [place] [address] 01354 Neutrophils/100 WBC (Bld) 74.6 % Normal 46.0 - 76.0 [facility] Comment on above: Performed By: #### 2 42951 #### [facility],[address] [place] [address] PLATELET 298 x10EE3/UL Normal 150 - 450 [facility] Comment on above: Performed By: #### 2 58411 #### [facility],[address] [place] [address] Platelet mean volume (Bld) [Entitic vol] 7.3 fL Normal 6.6 - 10.5 [facility] Comment on above: Result Comment: AUTO MATED DIFFERENTIAL Performed By: #### 2 68060 #### [address] [address] RBC 4.94 x 10EE6/UL Normal 4.10 - 5.30 [facility] Comment on above: Performed By: #### 2 54821 #### [facility],[address] [place] [address] 39614 WBC 16.3 x 10EE3/UL High 4.5 - 10.8 [facility] Comment on above: Performed By: #### 2 20736 #### [facility],[address] [place] [address] 69480 CMP with eGFRon 11-17-2022 AGE 77 years Normal [facility] Comment on above: Performed By: #### 2 96751 #### [place] [address],[place] [address] Albumin [Mass/Vol] 3.7 g/dL Normal 3.4 - 5.0 [facility] Comment on above: Performed By: #### 2 49707 #### [facility],[address] [place] [address] 18364 Albumin/Globulin [Mass ratio] 1.1 {ratio} Normal 0.9 - 1.6 [facility] Comment on above: Performed By: #### 2 65789 #### [facility],[address] [place] [address] 95313 ALK PHOS 44 U/L Low 46 - 116 [facility] Comment on above: Performed By: #### 2 68789 #### [facility],[address] [place] [address] 79116 ALT [Catalytic activity/Vol] 22 U/L Normal 14 - 59 [facility] Comment on above: Performed By: #### 2 75559 #### [facility],[address] [place] [address] 36907 Anion gap [Moles/Vol] 14 mmol/L Normal 10 - 20 [facility] Comment on above: Performed By: #### 2 86334 #### [facility],[address] [place] [address] 66939 AST [Catalytic activity/Vol] 20 U/L Normal 13 - 39 [facility] Comment on above: Performed By: #### 2 22299 #### [facility],[address] [place] [address] 93556 B/C RATIO 20 ratio Normal 0 - 30 [facility] Comment on above: Performed By: #### 2 31103 #### [facility],[address] [place] [address] 50840 Bilirubin [Mass/Vol] 0.4 mg/dL Normal 0.2 - 1.0 [facility] Comment on above: Performed By: #### 2 18175 #### [facility],[address] [place] [address] 29644 Calcium [Mass/Vol] 8.9 mg/dL Normal 8.5 - 10.1 [facility] Comment on above: Performed By: #### 2 89595 #### [facility],[address] [place] [address] 07298 Chloride [Moles/Vol] 105 mmol/L Normal 98 - 107 [facility] Comment on above: Performed By: #### 2 70903 #### [facility],[address] [place] [address] 72887 CMP with eGFR Normal [facility] Comment on above: Result Comment: COMP REHENSIVE METABOLIC PANEL Performed By: #### 2 82827 #### [facility],[address] [place] [address] 06752 CO2 [Moles/Vol] 27.9 mmol/L Normal 21.0 - 32.0 [facility] Comment on above: Performed By: #### 2 02078 #### [facility],[address] [place] [address] 15125 Creatinine [Mass/Vol] 0.85 mg/dL Normal 0.55 - 1.02 [facility] Comment on above: Performed By: #### 2 45383 #### [facility],[address] [place] [address] 46086 GFR/1.73 sq M.predicted among non-blacks MDRD (S/P/Bld) [Vol rate/Area] mL/min/{1.73_m2} Normal 60 - 999 [facility] Comment on above: Performed By: #### 2 66261 #### [facility],[address] [place] [address] 59766 Result Comment: ACCO RDING TO THE NATIONAL KIDNEY DISEASE EDUCATION PROGRAM(NKDE), A NORMAL eGFR IS A VALUE GREATER THAN OR EQUAL TO 60 ML/MIN/1.73 SQ METERS. CHRONIC KIDNEY DISEASE: <60mL/MIN/1.73 SQ METERS KIDNEY FAILURE: <15mL/MIN/1.73 SQ METERS THIS TEST SHOULD ONLY BE USED FOR PATIENTS 18 YEARS OF AGE AND OLDER. Globulin (S) [Mass/Vol] 3.5 g/dL Normal 1.5 - 3.8 [facility] Comment on above: Performed By: #### 2 88041 #### [facility],[address] [place] [address] 68973 Glucose [Mass/Vol] 102 mg/dL Normal 74 - 106 [facility] Comment on above: Performed By: #### 2 40286 #### [facility],[address] [place] [address] 10371 Potassium [Moles/Vol] 3.7 mmol/L Normal 3.5 - 5.1 [facility] Comment on above: Performed By: #### 2 67160 #### [facility],[address] [place] [address] 41869 Protein [Mass/Vol] 7.2 g/dL Normal 6.4 - 8.2 [facility] Comment on above: Performed By: #### 2 54532 #### [facility],[address] [place] [address] 40051 Sodium [Moles/Vol] 143 mmol/L Normal 136 - 145 [facility] Comment on above: Performed By: #### 2 03490 #### [facility],[address] [place] [address] 68235 Urea nitrogen [Mass/Vol] 17 mg/dL Normal 7 - 18 [facility] Comment on above: Performed By: #### 2 33938 #### [facility],[address] [place] [address] ABDOMEN/PELVIS [facility] 2022 CT ABDOMEN/PELVIS [place] [address] Patient: ZOILA WEBSTER Phone#: : [phone] Age: 77 Gender: F Pt. Type: ER Account: [id number] Location: 052 Ordering: ROSALIA YulisaOlga NALINIMARIA ISABEL Exam Date: 11/17/2022/21:35 Family Phys: Charge Code: [id number] Physician: Hyde Order #: [id number] Dose#: 10.0 PROCEDURE: CT ABDOMEN/PELVIS WITH CONTRAST COMPARISON: [facility], CT, ABDOMEN/PELVIS W CON, 03/21/2021, 21:25. [...] 77 Gender: F Pt. Type: ER Account: [id number] Location: 052 Ordering: ROSALIA YulisaOlga NALINIMARIA ISABEL Exam Date: 11/17/2022/21:35 Family Phys: Charge Code: [id number] Physician: Hyde Order #: [id number] Dose#: 10.0 OTHER: Negative. CONCLUSION: 1. Findings consistent with nonspecific colitis involving the descending and rectosigmoid colon. 2. Hepatic cysts. 3. Probable uterine fibroid. Dictated by: Ayah Santamaria MD on 11/18/2022 at 9:45 Approved by: Ayah Santamaria MD on 11/18/2022 at 9:50 Normal [facility] LIPASEon 11-17-2022 Lipase [Catalytic activity/Vol] 113.0 U/L Normal 73.0 - 393 [facility] Comment on above: Performed By: #### 2 47418 #### [place] [address] PROTHROMBIN TIME AND INRon 0 11-17-2022 INR Coag (PPP) [Relative time] 1.0 {INR} Normal 0.8 - 1.2 [facility] Comment on above: Result Comment: T [...] MECHANICAL HEART VALVES Performed By: #### 2 68680 #### [facility],[address] [place], [place] [phone] PROTHROMBIN TIME AND INR Normal [facility] Comment on above: Result Comment: PROT HROMBIN TIME AND INR Performed By: #### 2 36721 #### [facility],[address] [place] [address] 35454 PT-COUMADIN 11.8 sec Normal 9.3 - 14.1 [facility] Comment on above: Performed By: #### 2 10243 #### [place] [id number] TROPONIN I, HIGH SENSITIVITY on 11-17-2022 HS TROPONIN 6.1 pg/mL Normal 0.0 - 51.4 [facility] Comment on above: Performed By: #### 2 41548 #### [facility],[address] [place] [address] 69719 URINALYSISon 11-17-2022 Amorphous NONE Normal [facility] Comment on above: Performed By: #### 2 65470 #### [facility],[address] [place], [place] [id number] Bacteria 4+ Normal [facility] Comment on above: Performed By: #### 2 71099 #### [facility],[address] [place], [place] [id number] Bilirubin Ql (U) Negative Normal NORMAL: NEGATIVE [facility] Comment on above: Performed By: #### 2 94288 #### [facility],[address] [place] [address] Casts NONE Normal [facility] Comment on above: Performed By: #### 2 09301 #### [facility],[address] [place] [address] 42893 Clarity (U) clear Normal NORMAL: CLEAR [facility] Comment on above: Performed By: #### 2 75798 #### [facility],[address] [place] [address] 65664 Color (U) p.yel Normal NORMAL: YELLOW [facility] Comment on above: Performed By: #### 2 30601 #### [facility],[address] [place] [address] 77105 Crystals LM Nom (Urine sed) NONE Normal [facility] Comment on above: Performed By: #### 2 41827 #### [facility],[address] [place] [address] 77434 Epi Cells OCC Normal [facility] Comment on above: Performed By: #### 2 30781 #### [facility],[address] [place] [address] 94596 Glucose Ql (U) NORM Normal NORMAL: NORMAL [facility] Comment on above: Performed By: #### 2 61462 #### [facility],[address] [place] [address] 54287 Hemoglobin Ql (U) 25 Abnormal NORMAL: NEGATIVE [facility] Comment on above: Performed By: #### 2 93231 #### [facility],[address] [place] [address] 29070 Ketone Negative Normal NORMAL: NEGATIVE [facility] Comment on above: Performed By: #### 2 83904 #### [facility],[address] [place] [address] 31899 Leukocytes 100 Abnormal NORMAL: NEGATIVE [facility] [facility] Comment on above: Performed By: #### [id number] #### [facility],[address] [place] [id number] Mucous NONE Normal [facility] Comment on above: Performed By: #### [id number] #### [facility],[address] [place] [address] [id number] Nitrite Ql (U) Positive Normal NORMAL: NEGATIVE [facility] Comment on above: Performed By: #### [id number] #### [facility],[address] [place] [address] [id number] pH (U) 6 [pH] Normal NORMAL: 5.0-8.0 [facility] Comment on above: Performed By: #### [id number] #### [facility],[address] [place] [address] [id number] Protein Ql (U) Negative Normal NORMAL: NEGATIVE [facility] Comment on above: Performed By: #### [id number] #### [facility],[address] [place] [address] [id number] Rbc 0-5 Normal 0-3/hpf [facility] Comment on above: Performed By: #### [id number] #### [facility],[address] [place] [address] [id number] Sp [place] 1.005 Low NORMAL: 1.010-1.03 0 [facility] Comment on above: Performed By: #### [id number] #### [facility],[address] [place] [address] Specimen Type Clean catch Normal [facility] Comment on above: Performed By: #### [id number] #### [facility],[address] [place] [address] Urinalysis dipstick W Reflex Microscopic panel (U) SEE BELOW Normal [facility] Comment on above: Result Comment: MICR OSCOPIC Performed By: #### [id number] #### [facility],[address] [place] [address] Urobilinog NORM Normal NORMAL: NORMAL [facility] Comment on above: Performed By: #### 2 [id number] #### [facility],[address] [place] [address] Wbc 6-10 Normal 0-5/hpf [facility] Comment on above: Performed By: #### [id number] #### [facility],[address] [place] [address] Yeast NONE Normal [facility] Comment on above: Performed By: #### 2 [id number] #### [facility],[address] [place] [address] Vital Signs Date Time Vital Sign Value Performing Clinician Facility 03-09-2024 18:23-0500 Body temperature 98.49 [degF] Krislyn Aberegg PA Work Phone: [facility] 03-09-2024 18:23-0500 Diastolic blood pressure 80 mm[Hg] Krislyn Aberegg PA Work Phone: [facility] 03-09-2024 18:23-0500 Heart rate 108 /min Krislyn Aberegg PA Work Phone: [facility] 03-09-2024 18:23-0500 Respiratory rate 20 /min Krislyn Aberegg PA Work Phone: [facility] 03-09-2024 18:23-0500 SaO2% (BldA) [Mass fraction] 96 % Eun LOCKETT Work Phone: [facility] 03-09-2024 18:23-0500 Systolic blood pressure 120 mm[Hg] Eun LOCKETT Work Phone: [facility] 08-06-2023 16:48-0400 Body temperature 97 [degF] Indigo Casiano APRN.[employer] Work Phone: [facility] 08-06-2023 16:48-0400 Diastolic blood pressure 62 mm[Hg] Indigo Casiano APRN.[employer] Work Phone: [facility] 08-06-2023 16:48-0400 Heart rate 66 /min Indigo Casiano APRN.[employer] Work Phone: [facility] 08-06-2023 16:48-0400 Respiratory rate 16 /min Indigo Casiano APRN.[employer] Work Phone: [facility] 08-06-2023 16:48-0400 SaO2% (BldA) [Mass fraction] 98 % Indigo Casiano APRN.[employer] Work Phone: [facility] 08-06-2023 16:48-0400 Systolic blood pressure 124 mm[Hg] Indigo Casiano APRN.[employer] Work Phone: [facility] 07-29-2023 15:20-0400 Body temperature 96.8 [degF] [facility] 07-29-2023 15:20-0400 Diastolic blood pressure 75 mm[Hg] [facility] 07-29-2023 15:20-0400 Heart rate 88 /min [facility] 07-29-2023 15:20-0400 Respiratory rate 16 /min [facility] 07-29-2023 15:20-0400 SaO2% (BldA) [Mass fraction] 97 % [facility] 07-29-2023 15:20-0400 Systolic blood pressure 133 mm[Hg] [facility] 07-29-2023 12:36-0400 Body height 147.32 cm [facility] 07-28-2023 14:54-0400 Body temperature 96.8 [degF] [facility] 07-28-2023 14:54-0400 Diastolic blood pressure 76 mm[Hg] [facility] 07-28-2023 14:54-0400 Heart rate 88 /min [facility] 07-28-2023 14:54-0400 Respiratory rate 16 /min [facility] 07-28-2023 14:54-0400 SaO2% (BldA) [Mass fraction] 97 % [facility] 07-28-2023 14:54-0400 Systolic blood pressure 140 mm[Hg] [facility] 07-28-2023 13:08-0400 Body height 147.32 cm [facility] 07-27-2023 14:01-0400 Body temperature 97 [degF] [facility] 07-27-2023 14:01-0400 Diastolic blood pressure 66 mm[Hg] [facility] 07-27-2023 14:01-0400 Heart rate 84 /min [facility] 07-27-2023 14:01-0400 Respiratory rate 16 /min [facility] 07-27-2023 14:01-0400 SaO2% (BldA) [Mass fraction] 100 % [facility] 07-27-2023 14:01-0400 Systolic blood pressure 141 mm[Hg] [facility] 07-27-2023 12:15-0400 Body height 147.32 cm [facility] 07-26-2023 15:10-0400 Body temperature 97.4 [degF] [facility] 07-26-2023 15:10-0400 Diastolic blood pressure 70 mm[Hg] [facility] 07-26-2023 15:10-0400 Heart rate 100 /min [facility] 07-26-2023 15:10-0400 Respiratory rate 16 /min [facility] 07-26-2023 15:10-0400 SaO2% (BldA) [Mass fraction] 100 % [facility] 07-26-2023 15:10-0400 Systolic blood pressure 154 mm[Hg] [facility] 07-26-2023 13:20-0400 Body height 147.32 cm [facility] 07-23-2023 14:35-0400 Body temperature 97 [degF] [facility] 07-23-2023 14:35-0400 Diastolic blood pressure 94 mm[Hg] [facility] 07-23-2023 14:35-0400 Heart rate 91 /min [facility] 07-23-2023 14:35-0400 Respiratory rate 16 /min [facility] 07-23-2023 14:35-0400 SaO2% (BldA) [Mass fraction] 97 % [facility] 07-23-2023 14:35-0400 Systolic blood pressure 156 mm[Hg] [facility] 07-23-2023 12:45-0400 Body height 147.32 cm [facility] 07-22-2023 14:44-0400 Body temperature 96.6 [degF] [facility] 07-22-2023 14:44-0400 Diastolic blood pressure 74 mm[Hg] [facility] 07-22-2023 14:44-0400 Heart rate 81 /min [facility] 07-22-2023 14:44-0400 Respiratory rate 16 /min [facility] 07-22-2023 14:44-0400 SaO2% (BldA) [Mass fraction] 97 % [facility] 07-22-2023 14:44-0400 Systolic blood pressure 164 mm[Hg] [facility] 07-22-2023 13:00-0400 Body height 147.32 cm [facility] 07-21-2023 14:57-0400 Body temperature 97.2 [degF] [facility] 07-21-2023 14:57-0400 Diastolic blood pressure 81 mm[Hg] [facility] 07-21-2023 14:57-0400 Respiratory rate 16 /min [facility] 07-21-2023 14:57-0400 Systolic blood pressure 146 mm[Hg] [facility] 07-21-2023 13:09-0400 Body height 147.32 cm [facility] 07-21-2023 13:09-0400 Heart rate 88 /min [facility] 07-21-2023 13:09-0400 SaO2% (BldA) [Mass fraction] 98 % [facility] 07-20-2023 14:49-0400 Diastolic blood pressure 75 mm[Hg] [facility] 07-20-2023 14:49-0400 Heart rate 82 /min [facility] 07-20-2023 14:49-0400 Systolic blood pressure 168 mm[Hg] [facility] 07-20-2023 13:10-0400 Body height 147.32 cm [facility] 07-20-2023 13:10-0400 Body temperature 97.5 [degF] [facility] 07-20-2023 13:10-0400 Respiratory rate 16 /min [facility] 07-20-2023 13:10-0400 SaO2% (BldA) [Mass fraction] 97 % [facility] 07-19-2023 15:09-0400 Diastolic blood pressure 78 mm[Hg] [facility] 07-19-2023 15:09-0400 Heart rate 82 /min [facility] 07-19-2023 15:09-0400 Respiratory rate 16 /min [facility] 07-19-2023 15:09-0400 SaO2% (BldA) [Mass fraction] 98 % [facility] 07-19-2023 15:09-0400 Systolic blood pressure 147 mm[Hg] [facility] 07-19-2023 13:15-0400 Body height 147.32 cm [facility] 07-19-2023 13:15-0400 Body temperature 97.2 [degF] [facility] 07-18-2023 12:50-0400 Body temperature 97.2 [degF] [facility] 07-18-2023 12:50-0400 Diastolic blood pressure 58 mm[Hg] [facility] 07-18-2023 12:50-0400 Heart rate 87 /min [facility] 07-18-2023 12:50-0400 Respiratory rate 18 /min [facility] 07-18-2023 12:50-0400 SaO2% (BldA) [Mass fraction] 98 % [facility] 07-18-2023 12:50-0400 Systolic blood pressure 124 mm[Hg] [facility] 07-17-2023 15:28-0400 Body temperature 97.8 [degF] [facility] 07-17-2023 15:28-0400 Diastolic blood pressure 71 mm[Hg] [facility] 07-17-2023 15:28-0400 Heart rate 85 /min [facility] 07-17-2023 15:28-0400 Respiratory rate 18 /min [facility] 07-17-2023 15:28-0400 SaO2% (BldA) [Mass fraction] 100 % [facility] 07-17-2023 15:28-0400 Systolic blood pressure 155 mm[Hg] [facility] 07-17-2023 12:52-0400 Body temperature 97.8 [degF] [facility] 07-17-2023 12:52-0400 Diastolic blood pressure 55 mm[Hg] [facility] 07-17-2023 12:52-0400 Heart rate 99 /min [facility] 07-17-2023 12:52-0400 Respiratory rate 18 /min [facility] 07-17-2023 12:52-0400 SaO2% (BldA) [Mass fraction] 100 % [facility] 07-17-2023 12:52-0400 Systolic blood pressure 143 mm[Hg] [facility] 07-16-2023 14:18-0400 Body temperature 97 [degF] [facility] 07-16-2023 14:18-0400 Diastolic blood pressure 82 mm[Hg] [facility] 07-16-2023 14:18-0400 Heart rate 90 /min [facility] 07-16-2023 14:18-0400 Respiratory rate 16 /min [facility] 07-16-2023 14:18-0400 SaO2% (BldA) [Mass fraction] 98 % [facility] 07-16-2023 14:18-0400 Systolic blood pressure 129 mm[Hg] [facility] 07-16-2023 12:27-0400 Body height 147.32 cm [facility] 07-15-2023 14:35-0400 Body temperature 97 [degF] [facility] 07-15-2023 14:35-0400 Diastolic blood pressure 70 mm[Hg] [facility] 07-15-2023 14:35-0400 Heart rate 94 /min [facility] 07-15-2023 14:35-0400 Respiratory rate 16 /min [facility] 07-15-2023 14:35-0400 SaO2% (BldA) [Mass fraction] 98 % [facility] 07-15-2023 14:35-0400 Systolic blood pressure 146 mm[Hg] [facility] 07-15-2023 12:54-0400 Body height 147.32 cm [facility] 07-14-2023 15:01-0400 Heart rate 78 /min [facility] 07-14-2023 15:01-0400 Respiratory rate 16 /min [facility] 07-14-2023 13:15-0400 Body height 147.32 cm [facility] 07-14-2023 13:15-0400 Body temperature 97.6 [degF] [facility] 07-14-2023 13:15-0400 Diastolic blood pressure 64 mm[Hg] [facility] 07-14-2023 13:15-0400 SaO2% (BldA) [Mass fraction] 95 % [facility] 07-14-2023 13:15-0400 Systolic blood pressure 163 mm[Hg] [facility] 07-13-2023 15:30-0400 Body temperature 96.5 [degF] [facility] 07-13-2023 15:30-0400 Diastolic blood pressure 73 mm[Hg] [facility] 07-13-2023 15:30-0400 Heart rate 90 /min [facility] 07-13-2023 15:30-0400 Respiratory rate 16 /min [facility] 07-13-2023 15:30-0400 SaO2% (BldA) [Mass fraction] 100 % [facility] 07-13-2023 15:30-0400 Systolic blood pressure 169 mm[Hg] [facility] 07-13-2023 13:39-0400 Body height 147.32 cm [facility] 07-12-2023 14:37-0400 Body temperature 96.5 [degF] [facility] 07-12-2023 14:37-0400 Diastolic blood pressure 89 mm[Hg] [facility] 07-12-2023 14:37-0400 Heart rate 81 /min [facility] 07-12-2023 14:37-0400 Respiratory rate 16 /min [facility] 07-12-2023 14:37-0400 SaO2% (BldA) [Mass fraction] 97 % [facility] 07-12-2023 14:37-0400 Systolic blood pressure 135 mm[Hg] [facility] 07-12-2023 12:48-0400 Body height 147.32 cm [facility] 07-11-2023 13:15-0400 Body temperature 98.3 [degF] [facility] 07-11-2023 13:15-0400 Diastolic blood pressure 71 mm[Hg] [facility] 07-11-2023 13:15-0400 Heart rate 93 /min [facility] 07-11-2023 13:15-0400 Respiratory rate 18 /min [facility] 07-11-2023 13:15-0400 SaO2% (BldA) [Mass fraction] 98 % [facility] 07-11-2023 13:15-0400 Systolic blood pressure 125 mm[Hg] [facility] 07-10-2023 13:07-0400 Body height 147.32 cm [facility] 07-10-2023 13:07-0400 Body mass index (BMI) [Ratio] 22.9 kg/m2 [facility] 07-10-2023 13:07-0400 Body temperature 97.8 [degF] [facility] 07-10-2023 13:07-0400 Body weight 49.89 kg [facility] 07-10-2023 13:07-0400 Diastolic blood pressure 75 mm[Hg] [facility] 07-10-2023 13:07-0400 Heart rate 90 /min [facility] 07-10-2023 13:07-0400 Respiratory rate 18 /min [facility] 07-10-2023 13:07-0400 SaO2% (BldA) [Mass fraction] 99 % [facility] 07-10-2023 13:07-0400 Systolic blood pressure 141 mm[Hg] [facility] 07-09-2023 14:18-0400 Body temperature 96.1 [degF] [facility] 07-09-2023 14:18-0400 Diastolic blood pressure 92 mm[Hg] [facility] 07-09-2023 14:18-0400 Heart rate 84 /min [facility] 07-09-2023 14:18-0400 Respiratory rate 16 /min [facility] 07-09-2023 14:18-0400 SaO2% (BldA) [Mass fraction] 100 % [facility] 07-09-2023 14:18-0400 Systolic blood pressure 152 mm[Hg] [facility] 07-09-2023 12:34-0400 Body height 147.32 cm [facility] 07-09-2023 12:34-0400 Body mass index (BMI) [Ratio] 24 kg/m2 [facility] 07-09-2023 12:34-0400 Body weight 52.16 kg [facility] 07-08-2023 14:47-0400 Body temperature 97.4 [degF] [facility] 07-08-2023 14:47-0400 Diastolic blood pressure 76 mm[Hg] [facility] 07-08-2023 14:47-0400 Heart rate 86 /min [facility] 07-08-2023 14:47-0400 Respiratory rate 16 /min [facility] 07-08-2023 14:47-0400 SaO2% (BldA) [Mass fraction] 99 % [facility] 07-08-2023 14:47-0400 Systolic blood pressure 136 mm[Hg] [facility] 07-08-2023 13:08-0400 Body height 147.32 cm [facility] 07-07-2023 14:45-0400 Body temperature 97.9 [degF] [facility] 07-07-2023 14:45-0400 Diastolic blood pressure 79 mm[Hg] [facility] 07-07-2023 14:45-0400 Heart rate 98 /min [facility] 07-07-2023 14:45-0400 Respiratory rate 16 /min [facility] 07-07-2023 14:45-0400 Systolic blood pressure 141 mm[Hg] [facility] 07-07-2023 13:03-0400 Body height 147.32 cm [facility] 07-06-2023 15:10-0400 Body temperature 97.1 [degF] [facility] 07-06-2023 15:10-0400 Diastolic blood pressure 79 mm[Hg] [facility] 07-06-2023 15:10-0400 Heart rate 87 /min [facility] 07-06-2023 15:10-0400 Respiratory rate 16 /min [facility] 07-06-2023 15:10-0400 Systolic blood pressure 148 mm[Hg] [facility] 07-06-2023 13:24-0400 Body height 147.32 cm [facility] 07-06-2023 13:24-0400 SaO2% (BldA) [Mass fraction] 98 % [facility] 07-05-2023 15:03-0400 Body temperature 97.8 [degF] [facility] 07-05-2023 15:03-0400 Diastolic blood pressure 69 mm[Hg] [facility] 07-05-2023 15:03-0400 Heart rate 106 /min [facility] 07-05-2023 15:03-0400 Respiratory rate 16 /min [facility] 07-05-2023 15:03-0400 SaO2% (BldA) [Mass fraction] 98 % [facility] 07-05-2023 15:03-0400 Systolic blood pressure 141 mm[Hg] [facility] 07-05-2023 13:18-0400 Body height 147.32 cm [facility] 07-03-2023 13:21-0400 Body temperature 97.8 [degF] [facility] 07-03-2023 13:21-0400 Diastolic blood pressure 80 mm[Hg] [facility] 07-03-2023 13:21-0400 Heart rate 95 /min [facility] 07-03-2023 13:21-0400 Respiratory rate 18 /min [facility] 07-03-2023 13:21-0400 SaO2% (BldA) [Mass fraction] 98 % [facility] 07-03-2023 13:21-0400 Systolic blood pressure 138 mm[Hg] [facility] 07-02-2023 14:48-0400 Diastolic blood pressure 59 mm[Hg] [facility] 07-02-2023 14:48-0400 Heart rate 89 /min [facility] 07-02-2023 14:48-0400 Respiratory rate 16 /min [facility] 07-02-2023 14:48-0400 Systolic blood pressure 178 mm[Hg] [facility] 07-02-2023 13:06-0400 Body height 147.32 cm [facility] 07-02-2023 13:06-0400 Body temperature 97.9 [degF] [facility] 07-02-2023 13:06-0400 SaO2% (BldA) [Mass fraction] 97 % [facility] 07-01-2023 14:51-0400 Diastolic blood pressure 84 mm[Hg] [facility] 07-01-2023 14:51-0400 Heart rate 95 /min [facility] 07-01-2023 14:51-0400 Systolic blood pressure 141 mm[Hg] [facility] 07-01-2023 13:14-0400 Body height 147.32 cm [facility] 07-01-2023 13:14-0400 Body temperature 97.2 [degF] [facility] 07-01-2023 13:14-0400 Respiratory rate 16 /min [facility] 06-30-2023 14:56-0400 Diastolic blood pressure 72 mm[Hg] [facility] 06-30-2023 14:56-0400 Heart rate 105 /min [facility] 06-30-2023 14:56-0400 Respiratory rate 16 /min [facility] 06-30-2023 14:56-0400 Systolic blood pressure 132 mm[Hg] [facility] 06-30-2023 13:11-0400 Body height 147.32 cm [facility] 06-30-2023 13:11-0400 Body mass index (BMI) [Ratio] 21 kg/m2 [facility] 06-30-2023 13:11-0400 Body temperature 96.9 [degF] [facility] 06-30-2023 13:11-0400 Body weight 45.72 kg [facility] 06-30-2023 13:11-0400 SaO2% (BldA) [Mass fraction] 96 % [facility] 06-29-2023 15:16-0400 Diastolic blood pressure 58 mm[Hg] [facility] 06-29-2023 15:16-0400 Heart rate 88 /min [facility] 06-29-2023 15:16-0400 Systolic blood pressure 122 mm[Hg] [facility] 06-29-2023 13:25-0400 Body height 147.32 cm [facility] 06-29-2023 13:25-0400 Body mass index (BMI) [Ratio] 24 kg/m2 [facility] 06-29-2023 13:25-0400 Body temperature 96.9 [degF] [facility] 06-29-2023 13:25-0400 Body weight 52.16 kg [facility] 06-29-2023 13:25-0400 Respiratory rate 16 /min [facility] 06-29-2023 13:25-0400 SaO2% (BldA) [Mass fraction] 97 % [facility] 06-28-2023 14:09-0400 Body temperature 97.1 [degF] [facility] 06-28-2023 14:09-0400 Diastolic blood pressure 70 mm[Hg] [facility] 06-28-2023 14:09-0400 Heart rate 97 /min [facility] 06-28-2023 14:09-0400 Respiratory rate 16 /min [facility] 06-28-2023 14:09-0400 SaO2% (BldA) [Mass fraction] 99 % [facility] 06-28-2023 14:09-0400 Systolic blood pressure 139 mm[Hg] [facility] 06-28-2023 12:21-0400 Body height 147.32 cm [facility] 06-27-2023 13:08-0400 Diastolic blood pressure 67 mm[Hg] [facility] 06-27-2023 13:08-0400 Heart rate 96 /min [facility] 06-27-2023 13:08-0400 Systolic blood pressure 129 mm[Hg] [facility] 06-25-2023 14:58-0400 Body temperature 97.7 [degF] [facility] 06-25-2023 14:58-0400 Diastolic blood pressure 74 mm[Hg] [facility] 06-25-2023 14:58-0400 Heart rate 99 /min [facility] 06-25-2023 14:58-0400 Respiratory rate 16 /min [facility] 06-25-2023 14:58-0400 SaO2% (BldA) [Mass fraction] 99 % [facility] 06-25-2023 14:58-0400 Systolic blood pressure 136 mm[Hg] [facility] 06-25-2023 13:06-0400 Body height 147.32 cm [facility] 06-24-2023 14:59-0400 Body temperature 97.4 [degF] [facility] 06-24-2023 14:59-0400 Diastolic blood pressure 77 mm[Hg] [facility] 06-24-2023 14:59-0400 Heart rate 103 /min [facility] 06-24-2023 14:59-0400 Respiratory rate 16 /min [facility] 06-24-2023 14:59-0400 SaO2% (BldA) [Mass fraction] 99 % [facility] 06-24-2023 14:59-0400 Systolic blood pressure 146 mm[Hg] [facility] 06-24-2023 13:01-0400 Body height 147.32 cm [facility] 06-23-2023 15:08-0400 Body temperature 97.1 [degF] [facility] 06-23-2023 15:08-0400 Diastolic blood pressure 64 mm[Hg] [facility] 06-23-2023 15:08-0400 Heart rate 95 /min [facility] 06-23-2023 15:08-0400 Respiratory rate 16 /min [facility] 06-23-2023 15:08-0400 Systolic blood pressure 142 mm[Hg] [facility] 06-23-2023 13:15-0400 Body height 147.32 cm [facility] 06-23-2023 13:15-0400 SaO2% (BldA) [Mass fraction] 98 % [facility] 06-22-2023 15:28-0400 Body temperature 97.3 [degF] [facility] 06-22-2023 15:28-0400 Diastolic blood pressure 108 mm[Hg] [facility] 06-22-2023 15:28-0400 Heart rate 94 /min [facility] 06-22-2023 15:28-0400 Respiratory rate 14 /min [facility] 06-22-2023 15:28-0400 SaO2% (BldA) [Mass fraction] 98 % [facility] 06-22-2023 15:28-0400 Systolic blood pressure 144 mm[Hg] [facility] 06-22-2023 13:42-0400 Body height 147.32 cm [facility] 06-21-2023 14:48-0400 Diastolic blood pressure 52 mm[Hg] [facility] 06-21-2023 14:48-0400 Heart rate 80 /min [facility] 06-21-2023 14:48-0400 Systolic blood pressure 128 mm[Hg] [facility] 06-21-2023 13:06-0400 Body height 147.32 cm [facility] 06-21-2023 13:06-0400 Body temperature 97.2 [degF] [facility] 06-21-2023 13:06-0400 Respiratory rate 16 /min [facility] 06-21-2023 13:06-0400 SaO2% (BldA) [Mass fraction] 97 % [facility] 06-20-2023 13:24-0400 Body temperature 98.3 [degF] [facility] 06-20-2023 13:24-0400 Diastolic blood pressure 60 mm[Hg] [facility] 06-20-2023 13:24-0400 Heart rate 93 /min [facility] 06-20-2023 13:24-0400 Respiratory rate 16 /min [facility] 06-20-2023 13:24-0400 SaO2% (BldA) [Mass fraction] 99 % [facility] 06-20-2023 13:24-0400 Systolic blood pressure 126 mm[Hg] [facility] 06-19-2023 13:48-0400 Body temperature 97.5 [degF] [facility] 06-19-2023 13:48-0400 Diastolic blood pressure 73 mm[Hg] [facility] 06-19-2023 13:48-0400 Heart rate 85 /min [facility] 06-19-2023 13:48-0400 Respiratory rate 16 /min [facility] 06-19-2023 13:48-0400 SaO2% (BldA) [Mass fraction] 99 % [facility] 06-19-2023 13:48-0400 Systolic blood pressure 132 mm[Hg] [facility] 06-19-2023 13:18-0400 Body height 147.32 cm [facility] 06-19-2023 13:18-0400 Body mass index (BMI) [Ratio] 20.5 kg/m2 [facility] 06-19-2023 13:18-0400 Body weight 44.45 kg [facility] 06-18-2023 14:47-0400 Body temperature 96.9 [degF] [facility] 06-18-2023 14:47-0400 Diastolic blood pressure 79 mm[Hg] [facility] 06-18-2023 14:47-0400 Heart rate 93 /min [facility] 06-18-2023 14:47-0400 Respiratory rate 16 /min [facility] 06-18-2023 14:47-0400 SaO2% (BldA) [Mass fraction] 100 % [facility] 06-18-2023 14:47-0400 Systolic blood pressure 153 mm[Hg] [facility] 06-18-2023 13:02-0400 Body mass index (BMI) [Ratio] 20.9 kg/m2 [facility] 06-18-2023 13:02-0400 Body weight 45.35 kg [facility] 06-17-2023 15:16-0400 Diastolic blood pressure 65 mm[Hg] [facility] 06-17-2023 15:16-0400 Heart rate 88 /min [facility] 06-17-2023 15:16-0400 Systolic blood pressure 112 mm[Hg] [facility] 06-17-2023 13:33-0400 Body height 147.32 cm [facility] 06-17-2023 13:33-0400 Body temperature 97.4 [degF] [facility] 06-17-2023 13:33-0400 Respiratory rate 16 /min [facility] 06-17-2023 13:33-0400 SaO2% (BldA) [Mass fraction] 94 % [facility] 06-16-2023 15:07-0400 Diastolic blood pressure 64 mm[Hg] [facility] 06-16-2023 15:07-0400 Heart rate 65 /min [facility] 06-16-2023 15:07-0400 Systolic blood pressure 128 mm[Hg] [facility] 06-16-2023 13:25-0400 Body height 147.32 cm [facility] 06-16-2023 13:25-0400 Body temperature 97.1 [degF] [facility] 06-16-2023 13:25-0400 Respiratory rate 16 /min [facility] 06-16-2023 13:25-0400 SaO2% (BldA) [Mass fraction] 96 % [facility] 06-15-2023 15:07-0400 Body temperature 96.5 [degF] [facility] 06-15-2023 15:07-0400 Diastolic blood pressure 62 mm[Hg] [facility] 06-15-2023 15:07-0400 Heart rate 85 /min [facility] 06-15-2023 15:07-0400 Systolic blood pressure 128 mm[Hg] [facility] 06-15-2023 13:26-0400 Body height 147.32 cm [facility] 06-15-2023 13:26-0400 Respiratory rate 16 /min [facility] 06-15-2023 13:26-0400 SaO2% (BldA) [Mass fraction] 100 % [facility] 06-14-2023 13:53-0400 Body height 147.32 cm [facility] 06-14-2023 13:53-0400 Body temperature 97.5 [degF] [facility] 06-14-2023 13:53-0400 Diastolic blood pressure 66 mm[Hg] [facility] 06-14-2023 13:53-0400 Heart rate 88 /min [facility] 06-14-2023 13:53-0400 Respiratory rate 16 /min [facility] 06-14-2023 13:53-0400 Systolic blood pressure 131 mm[Hg] [facility] 06-12-2023 15:10-0400 SaO2% (BldA) [Mass fraction] 100 % [facility] 06-11-2023 16:19-0400 Body temperature 98.1 [degF] [facility] 06-11-2023 16:19-0400 Diastolic blood pressure 73 mm[Hg] [facility] 06-11-2023 16:19-0400 Heart rate 87 /min [facility] 06-11-2023 16:19-0400 Respiratory rate 18 /min [facility] 06-11-2023 16:19-0400 SaO2% (BldA) [Mass fraction] 100 % [facility] 06-11-2023 16:19-0400 Systolic blood pressure 156 mm[Hg] [facility] Encounters Encounter Date Encounter Type Care Provider Facility Start: 12-21-2024 End: 12-21-2024 ambulatory [facility] Facility:[facility] Start: 12-14-2024 End: 12-14-2024 ambulatory HARI OH Facility:[facility] Start: 04-13-2024 End: 04-13-2024 Telephone encounter Mirella Knight RN [facility] Comment on above: Care Coordination (L kofi Nodule Follow Up) Start: 04-03-2024 End: 04-08-2024 ambulatory Julia Lee Facility:[facility] Start: 03-19-2024 ambulatory Buck Mcdaniels Facility: [facility] [place] Start: 03-19-2024 End: 03-21-2024 Evaluation and management of inpatient Buck Mcdaniels Facility:[facility] Start: 03-09-2024 End: 03-09-2024 ambulatory SULMA MALONE Facility:[facility] Start: 03-09-2024 End: 03-09-2024 Patient encounter procedure Eun Thomas PA Work Phone: [facility] Comment on above: Intertrigo (Primary Dx) Start: 01-27-2024 End: 01-28-2024 ambulatory NADYA PRABHAKAR Facility:[id number] Start: 01-26-2024 End: 01-27-2024 Emergency department patient visit Nadya Prabhakar Facility:[facility] Start: 01-26-2024 End: 01-26-2024 ambulatory ANNAMARIA LAGUERRE Facility:[facility] Start: 09-09-2023 End: 09-13-2023 ambulatory SULMA MALONE Facility:B Start: 09-09-2023 End: 09-13-2023 Outreach Lab MOLINA FAITH MD [facility] Start: 08-06-2023 End: 08-06-2023 Patient encounter procedure Indigo Casiano APRN.CNP Work Phone: [facility] Comment on above: Fungal infection (Pr imary Dx) Start: 07-29-2023 End: 07-29-2023 Patient encounter procedure [facility] Work Phone: Start: 07-29-2023 End: 07-29-2023 ambulatory Roman [facility] [place] Work Phone: Start: 07-28-2023 End: 07-28-2023 Patient encounter procedure [facility] Work Phone: Start: 07-28-2023 End: 07-28-2023 ambulatory Roman [facility] [place] Work Phone: Start: 07-27-2023 End: 07-27-2023 Patient encounter procedure [facility] Work Phone: Start: 07-27-2023 End: 07-27-2023 ambulatory Sulma Faganer [facility] Work Phone: Start: 07-26-2023 End: 07-26-2023 Patient encounter procedure [facility] Work Phone: Start: 07-26-2023 End: 07-26-2023 ambulatory Roman [facility] [place] Work Phone: Start: 07-25-2023 End: 07-25-2023 Patient encounter procedure [facility] Work Phone: Start: 07-25-2023 End: 07-25-2023 ambulatory Roman [facility] [place] Work Phone: Start: 07-24-2023 End: 07-24-2023 Patient encounter procedure [facility] Work Phone: Start: 07-24-2023 End: 07-24-2023 ambulatory Roman [facility] [place] Work Phone: Start: 07-23-2023 End: 07-23-2023 Patient encounter procedure [facility] Work Phone: Start: 07-23-2023 End: 07-23-2023 ambulatory Roman [facility] [place] Work Phone: Start: 07-22-2023 End: 07-22-2023 Patient encounter procedure [facility] Work Phone: Start: 07-22-2023 End: 07-22-2023 ambulatory Roman [facility] [place] Work Phone: Start: 07-21-2023 End: 07-21-2023 Patient encounter procedure [facility] Work Phone: Start: 07-21-2023 End: 07-21-2023 ambulatory Roman [facility] [place] Work Phone: Start: 07-20-2023 End: 07-20-2023 Patient encounter procedure [facility] Work Phone: Start: 07-20-2023 End: 07-20-2023 ambulatory Sulma Catherine [facility] Work Phone: Start: 07-19-2023 End: 07-19-2023 Patient encounter procedure [facility] Work Phone: Start: 07-19-2023 End: 07-19-2023 ambulatory Roman [facility] [place] Work Phone: Start: 07-18-2023 End: 07-18-2023 Patient encounter procedure [facility] Work Phone: Start: 07-18-2023 End: 07-18-2023 ambulatory Roman [facility] [place] Work Phone: Start: 07-17-2023 End: 07-17-2023 Patient encounter procedure [facility] Work Phone: Start: 07-17-2023 End: 07-17-2023 ambulatory Roman [facility] [place] Work Phone: Start: 07-16-2023 End: 07-16-2023 Patient encounter procedure [facility] Work Phone: Start: 07-16-2023 End: 07-16-2023 ambulatory Roman [facility] [place] Work Phone: Start: 07-15-2023 End: 07-15-2023 Patient encounter procedure [facility] Work Phone: Start: 07-15-2023 End: 07-15-2023 [facility] Start: 07-14-2023 End: 07-14-2023 Patient encounter procedure [facility] Work Phone: Start: 07-14-2023 End: 07-14-2023 [facility] Start: 07-13-2023 End: 07-13-2023 Patient encounter procedure [facility] Work Phone: Start: 07-13-2023 End: 07-13-2023 ambulatory Sulma Faganer [facility] Work Phone: Start: 07-12-2023 End: 07-12-2023 Patient encounter procedure [facility] Work Phone: Start: 07-12-2023 End: 07-12-2023 [facility] Start: 07-11-2023 End: 07-11-2023 Patient encounter procedure [facility] Work Phone: Start: 07-11-2023 End: 07-11-2023 [facility] Start: 07-10-2023 End: 07-10-2023 Patient encounter procedure [facility] Work Phone: Start: 07-10-2023 End: 07-10-2023 [facility] Start: 07-09-2023 End: 07-09-2023 Patient encounter procedure [facility] Work Phone: Start: 07-09-2023 End: 07-09-2023 [facility] Start: 07-08-2023 End: 07-08-2023 Patient encounter procedure [facility] Work Phone: Start: 07-08-2023 End: 07-08-2023 ambulatory Roman [facility] [place] Work Phone: Start: 07-07-2023 End: 07-07-2023 Patient encounter procedure [facility] Work Phone: Start: 07-07-2023 End: 07-07-2023 ambulatory Roman [facility] [place] Work Phone: Start: 07-06-2023 End: 07-06-2023 Patient encounter procedure [facility] Work Phone: Start: 07-06-2023 End: 07-06-2023 ambulatory Roman [facility] [place] Work Phone: Start: 07-05-2023 End: 07-05-2023 Patient encounter procedure [facility] Work Phone: Start: 07-05-2023 End: 07-05-2023 ambulatory Roman [facility] [place] Work Phone: Start: 07-04-2023 End: 07-04-2023 Patient encounter procedure [facility] Work Phone: Start: 07-04-2023 End: 07-04-2023 ambulatory Roman [facility] [place] Work Phone: Start: 07-03-2023 End: 07-03-2023 Patient encounter procedure [facility] Work Phone: Start: 07-03-2023 End: 07-03-2023 ambulatory Roman [facility] [place] Work Phone: Start: 07-02-2023 End: 07-02-2023 Patient encounter procedure [facility] Work Phone: Start: 07-02-2023 End: 07-02-2023 ambulatory Roman [facility] [place] Work Phone: Start: 07-01-2023 End: 07-01-2023 Patient encounter procedure [facility] Work Phone: Start: 07-01-2023 End: 07-01-[address] [facility] Work Phone: Start: 06-30-2023 End: 06-30-2023 Patient encounter procedure [facility] Work Phone: Start: 06-30-2023 End: 06-30-2023 ambulatory Roman [facility] [place] Work Phone: Start: 06-29-2023 End: 06-29-2023 Patient encounter procedure [facility] Work Phone: Start: 06-29-2023 End: 06-29-2023 ambulatory [facility] Work Phone: Start: 06-28-2023 End: 06-28-2023 Patient encounter procedure [facility] Work Phone: Start: 06-28-2023 End: 06-28-[address] [facility] Work Phone: Start: 06-27-2023 End: 06-27-2023 Patient encounter procedure [facility] Work Phone: Start: 06-27-2023 End: 06-27-[address] [facility] Work Phone: Start: 06-26-2023 End: 06-26-2023 Patient encounter procedure [facility] Work Phone: Start: 06-26-2023 End: 06-26-[address] [facility] Work Phone: Start: 06-25-2023 End: 06-25-2023 Patient encounter procedure [facility] Work Phone: Start: 06-25-2023 End: 06-25-[address] [facility] Work Phone: Start: 06-24-2023 End: 06-24-2023 Patient encounter procedure [facility] Work Phone: Start: 06-24-2023 End: 06-24-[address] [facility] Work Phone: Start: 06-23-2023 End: 06-23-2023 Patient encounter procedure [facility] Work Phone: Start: 06-23-2023 End: 06-23-[address] [facility] Work Phone: Start: 06-22-2023 End: 06-26-2023 ambulatory MOLINA FAITH MD Facility:B Start: 06-22-2023 End: 06-26-2023 Outreach Lab MOLINA FAITH MD [facility] Start: 06-22-2023 End: 06-22-2023 Patient encounter procedure [facility] Work Phone: Start: 06-22-2023 End: 06-22-[address] [facility] Work Phone: Start: 06-21-2023 End: 06-21-2023 Patient encounter procedure [facility] Work Phone: Start: 06-21-2023 End: 06-21-2023 ambulatory Roman Faith [facility] Work Phone: Start: 06-20-2023 End: 06-20-2023 Patient encounter procedure [facility] Work Phone: Start: 06-20-2023 End: 06-20-[address] [facility] Work Phone: Start: 06-19-2023 End: 06-19-2023 Patient encounter procedure [facility] Work Phone: Start: 06-19-2023 End: 06-19-[facility]23 [facility] Start: 06-18-2023 End: 06-18-2023 Patient encounter procedure [facility] Work Phone: Start: 06-18-2023 End: 06-18-2023 ambulatory Roman Faith Facility:[facility] Start: 06-17-2023 End: 06-17-2023 Patient encounter procedure [facility] Work Phone: Start: 06-17-2023 End: 06-17-2023 ambulatory [facility] Work Phone: Start: 06-16-2023 End: 06-16-2023 Patient encounter procedure [facility] Work Phone: Start: 06-16-2023 End: 06-16-2023 ambulatory Roman [facility] [place] Work Phone: Start: 06-15-2023 End: 06-15-2023 Patient encounter procedure [facility] Work Phone: Start: 06-15-2023 End: 06-15-2023 ambulatory Roman [facility] [place] Work Phone: Start: 06-14-2023 End: 06-14-2023 Patient encounter procedure [facility] Work Phone: Start: 06-14-2023 End: 06-14-2023 ambulatory Roman [facility] [place] Work Phone: Start: 06-13-2023 End: 06-13-2023 Patient encounter procedure [facility] Work Phone: Start: 06-13-2023 End: 06-13-2023 ambulatory [facility] Work Phone: Start: 06-12-2023 End: 06-12-2023 Patient encounter procedure [facility] Work Phone: Start: 06-12-2023 End: 06-12-2023 ambulatory Roman Faith [facility] Work Phone: Start: 06-11-2023 End: 06-11-2023 ambulatory Binta Jose ABERNATHY [facility] Work Phone: Start: 06-11-2023 End: 06-11-2023 Patient encounter procedure [facility] Work Phone: Start: 06-10-2023 End: 06-11-2023 Emergency department patient visit SULMA MALONE Facility:[id number] Start: 06-04-2023 End: 06-04-2023 Evaluation and management of inpatient BUCK AYALA Facility:[id number] Start: 06-02-2023 End: 06-09-2023 Evaluation and management of inpatient TYRONE ANN Facility:[id number] Start: 03-28-2023 ambulatory Mason colin MD Work Phone: [facility] Comment on above: Pleural effusion on right (Primary Dx); Pulmonary nodules/lesions, multiple; Acute septic pulmonary embolism, unspecified whether acute cor pulmonale present (HCC) Start: 03-27-2023 ambulatory Mason colin MD Work Phone: [facility] Comment on above: Pleural effusion on right (Primary Dx); Pulmonary nodules/lesions, multiple; Acute septic pulmonary embolism, unspecified whether acute cor pulmonale present (HCC) Start: 03-26-2023 ambulatory Mason colin MD Work Phone: [facility] Comment on above: Pleural effusion on right (Primary Dx); Pulmonary nodules/lesions, multiple; Acute septic pulmonary embolism, unspecified whether acute cor pulmonale present (HCC) Start: 03-25-2023 ambulatory Mason colin MD Work Phone: [facility] Comment on above: Pleural effusion on right (Primary Dx); Pulmonary nodules/lesions, multiple; Traumatic hemo-pneumothorax, subsequent encounter Start: 03-24-2023 End: 03-24-2023 Subsequent hospital visit by physician Behzad Almaraz MD Work Phone: [facility] Comment on above: Encephalopathy Pleural effusion on right Start: 03-23-2023 ambulatory Katelynn gonzalez PA-C Work Phone: [facility] Comment on above: 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, subsequent encounter (Primary Dx); MRSA bacteremia Acute septic pulmona ry embolism, unspecified whether acute cor pulmonale present (HCC) (Primary Dx); Pleural effusion on right; Pulmonary nodules/lesions, multiple Pleural effusion on right (Primary Dx) Start: 03-22-2023 ambulatory Mason colin MD Work Phone: [facility] Comment on above: Acute septic pulmona ry embolism, unspecified whether acute cor pulmonale present (HCC) (Primary Dx); Pulmonary nodules/lesions, multiple; Traumatic hemo-pneumothorax, subsequent encounter; Pleural effusion on right Start: 03-18-2023 Transcribe Orders Behzad duran MD Work Phone: [facility] Central Scheduling Comment on above: Encephalopathy (Prim nahomy Dx) Start: 03-17-2023 ambulatory Myranda Rodriguez PA-C Work Phone: [facility] Comment on above: 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, subsequent encounter (Primary Dx); Acute bacterial endocarditis; group home (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 antibiotics; Critical polytrauma; MRSA bacteremia Start: 03-16-2023 ambulatory Bran busby MD Work Phone: [facility] Comment on above: Acute septic pulmona ry embolism, unspecified whether acute cor pulmonale present (HCC) (Primary Dx); COVID-19 virus infection; MRSA bacteremia; Pulmonary nodules/lesions, multiple; Traumatic hemo-pneumothorax, subsequent encounter 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, subsequent encounter (Primary Dx); Acute bacterial endocarditis; MRSA bacteremia; technician terminal and repeater (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 antibiotics; Critical polytrauma Start: 03-12-2023 ambulatory Samantha Austin APRN - MUNDO Work Phone: [facility] Comment on above: Acute bacterial endo carditis (Primary Dx); COVID; MRSA bacteremia; group home (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 antibiotics Start: 03-11-2023 ambulatory Samantha Austin SCREEN PRINTING MACHINE OPERATOR HELPER - AUTOMOBILE [employer]RECKER Work Phone: [facility] Comment on above: Acute bacterial endo carditis (Primary Dx); COVID; MRSA bacteremia; group home (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 antibiotics Start: 03-10-2023 ambulatory Samantha Austin SCREEN PRINTING MACHINE OPERATOR HELPER - AUTOMOBILE WRECKER Work Phone: [facility] Comment on above: MRSA bacteremia (Tonia eze Dx); group home (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 antibiotics; COVID; Acute bacterial endocarditis Start: 03-10-2023 [facility] hospital care/d ay 25 minutes Earnestine Poe DO Work Phone: [facility] Comment on above: Acute septic pulmona ry embolism, unspecified whether acute cor pulmonale present (HCC) (Primary Dx); COVID-19 virus infection Start: 03-08-2023 ambulatory Samantha Austin SCREEN PRINTING MACHINE OPERATOR HELPER - AUTOMOBILE WRECKER Work Phone: [facility] Comment on above: Acute bacterial endo carditis (Primary Dx); MRSA bacteremia; Critical polytrauma; technician terminal and repeater (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 antibiotics Start: 03-04-2023 ambulatory Samantha Austin SCREEN PRINTING MACHINE OPERATOR HELPER - AUTOMOBILE WRECKER Work Phone: [facility] Comment on above: Acute bacterial endo carditis (Primary Dx); MRSA bacteremia; Critical polytrauma; technician terminal and repeater (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 antibiotics Start: 03-03-2023 ambulatory Samantha Austin SCREEN PRINTING MACHINE OPERATOR HELPER - AUTOMOBILE WRECKER Work Phone: [facility] Comment on above: Acute bacterial endo carditis (Primary Dx); Pulmonary nodules/lesions, multiple; MRSA bacteremia; group home (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 antibiotics Start: 03-02-2023 ambulatory Samantha Austin SCREEN PRINTING MACHINE OPERATOR HELPER - AUTOMOBILE WRECKER Work Phone: [facility] Comment on above: Acute bacterial endo carditis (Primary Dx); MRSA bacteremia; group home (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 antibiotics; Critical polytrauma; Pulmonary nodules/lesions, multiple; Encephalopathy Start: 03-01-2023 ambulatory Samantha Austin SCREEN PRINTING MACHINE OPERATOR HELPER - AUTOMOBILE WRECKER Work Phone: [facility] Comment on above: Acute bacterial endo carditis (Primary Dx); MRSA bacteremia; Traumatic brain injury with loss of consciousness, subsequent encounter; Critical polytrauma; group home (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 antibiotics Start: 02-28-2023 ambulatory Mason colin MD Work Phone: [facility] Comment on above: MRSA bacteremia (Tonia eze Dx); Traumatic hemo-pneumothorax, subsequent encounter; Pulmonary nodules/lesions, multiple Start: 02-27-2023 ambulatory Mason colin MD Work Phone: [facility] Comment on above: MRSA bacteremia (Tonia eze Dx); Traumatic hemo-pneumothorax, subsequent encounter; Pulmonary nodules/lesions, multiple Start: 02-26-2023 ambulatory [employer] Work Phone: [facility] [facility] Comment on above: MRSA bacteremia (Tonia eze Dx); Acute bacterial endocarditis Pulmonary nodules/le sions, multiple (Primary Dx); MRSA bacteremia; Traumatic hemo-pneumothorax, subsequent encounter Start: 02-25-2023 ambulatory Mason colin MD Work Phone: [facility]monary Care Comment on above: Pulmonary nodules/le sions, multiple (Primary Dx); MRSA bacteremia; Traumatic hemo-pneumothorax, subsequent encounter Start: 02-24-2023 ambulatory Mason colin MD Work Phone: [facility] Comment on above: Pulmonary nodules/le sions, multiple (Primary Dx); MRSA bacteremia; Traumatic hemo-pneumothorax, subsequent encounter Start: 02-23-2023 ambulatory Mason colin MD Work Phone: [facility] Pulmonology Comment on above: Pulmonary nodules/le sions, multiple (Primary Dx); MRSA bacteremia; Traumatic hemo-pneumothorax, subsequent encounter Start: 02-22-2023 ambulatory [employer] Work Phone: [facility] Infectious Dis Comment on above: MRSA bacteremia (Tonia loo Dx); Acute bacterial endocarditis Start: 02-19-2023 ambulatory Katelynn gonzalez PA-C Work Phone: [facility] Infectious Dis Comment on above: 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, subsequent encounter (Primary Dx); MRSA bacteremia; Encephalopathy MRSA bacteremia (Tonia loo Dx); Pulmonary nodules/lesions, multiple; Traumatic hemo-pneumothorax, subsequent encounter Start: 02-19-2023 Telephone encounter Juve grider MD Work Phone: [facility] Pulmonary and Sleep Medicine Comment on above: Care Coordination Start: 01-25-2023 End: 01-26-2023 ambulatory [facility] Start: 01-24-2023 End: 01-25-2023 ambulatory [facility] Start: 01-23-2023 End: 01-24-2023 ambulatory [facility] Start: 12-21-2022 End: 12-21-2022 Clinical Support Pathology Provider [facility] Pathology Start: 12-19-2022 End: 12-19-2022 ambulatory UNKNOWN PROVIDER Facility:[facility] Start: 12-17-2022 End: 12-17-2022 ambulatory UNKNOWN PROVIDER Facility:[facility] Start: 12-17-2022 Evaluation and manag ement of inpatient [facility] Start: 12-08-2022 End: 12-08-2022 Emergency department patient visit FAISAL GARCIA [facility] Start: 11-17-2022 End: 11-19-2022 ambulatory SULMA WOLFE [facility] Procedures Date Procedure Procedure Detail Performing Clinician Start: 03-24-2023 Thoracentesis needle/cath pleura w/imaging Behzad Almraaz MD Work Phone: Start: 01-28-2023 Antibody screen [facility] Comment on above: Performed By: #### [id number] ####Medical Di adria: NED PAK ([id number])[facility] ([facility])[address] [place] [address] Start: 12-19-2022 Cryoprecipitatereducedplasma Provider Unspecified Start: 12-19-2022 PLASMA STATUS Jacob Wiseman SCREEN PRINTING MACHINE OPERATOR HELPER-AUTOMOBILE WRECKER Work Phone: Start: 12-19-2022 RBC leukocytes reduced Provider Unspecified Start: 12-19-2022 RED BLOOD CELL UNIT STATUS Jacob barton SCREEN PRINTING MACHINE OPERATOR HELPER-AUTOMOBILE WRECKER Work Phone: Start: 12-19-2022 Blood typing, ABO, Rho(D) and RBC antibody screening Dave Muniz MD Work Phone: Start: 12-17-2022 Antibody screen [facility] Comment on above: Performed By: #### [id number] ####Medical Di adria: NED PAK ([id number])[facility] ([facility])[address] [place] [address] Start: 11-17-2022 Urinalysis SULMA MALONE Comment on above: Result Comment: URINALYSIS Performed By: #### [id number] #### [facility],[address] [place] [address] Plan of Treatment Date Care Activity Detail Author Start: 12-17-2032 DTaP/Tdap/Td Vaccine s (3 - Td or Tdap) DTaP/Tdap/Td Vaccines (3 - Td or Tdap) [facility] Start: 12-17-2032 Urine microalbumin profile DTaP,Tdap,Td Vaccine (3 - Td or Tdap) [facility] Start: 12-08-2032 Tetanus vaccination Tetanus (T d or Tdap) [facility] Start: 01-26-2027 Diabetes Screening Diabetes Screenin g [facility] Start: 06-08-2026 Diabetes Screening Diabetes Screenin g [facility] Start: 03-26-2024 Creatinine measurement [facility] Start: 03-26-2024 Potassium measurement Potassium Leve l [facility] Start: 03-25-2024 Creatinine measurement [facility] Start: 03-25-2024 Potassium measurement Potassium Leve l [facility] Start: 03-23-2024 Creatinine measurement [facility] Start: 03-23-2024 Potassium measurement Potassium Leve l [facility] Start: 03-22-2024 Medicare Advantage A nnual Wellness Visit Medicare Advantage Annual Wellness Visit [facility] Start: 03-19-2024 Creatinine measurement Creatinine [facility] Start: 03-19-2024 Potassium measurement Potassium Leve l [facility] Start: 2024 Creatinine measurement Creatinine [facility] Start: 2024 Potassium measurement Potassium Leve l [facility] Start: 03-12-2024 Creatinine measurement Creatinine Le [facility] Start: 03-12-2024 Potassium measurement Potassium Leve l [facility] Start: 03-10-2024 Creatinine measurement Creatinine Le [facility] Start: 03-10-2024 Potassium measurement Potassium Leve l [facility] Start: 03-08-2024 Creatinine measurement Creatinine [facility] Start: 03-08-2024 Potassium measurement Potassium Leve l [facility] Start: 03-02-2024 Creatinine measurement Creatinine [facility] Start: 03-02-2024 Potassium measurement Potassium Leve l [facility] Start: 03-01-2024 Creatinine measurement Creatinine [facility] Start: 03-01-2024 Potassium measurement Potassium Leve l [facility] Start: 02-28-2024 Creatinine measurement Creatinine [facility] Start: 02-28-2024 Potassium measurement Potassium Leve l [facility] Start: 02-27-2024 Creatinine measurement Creatinine [facility] Start: 02-27-2024 Potassium measurement Potassium Leve l [facility] Start: 02-23-2024 Creatinine measurement Creatinine [facility] Start: 02-23-2024 Potassium measurement Potassium Leve l [facility] Start: 02-20-2024 Creatinine measurement Creatinine [facility] Start: 02-20-2024 Potassium measurement Potassium Leve l [facility] Start: 02-03-2024 Echocardiography Echocardiogram [facility] Start: 11-21-2023 Covid-19 Vaccine ( season) Covid-19 Vaccine ( season) [facility] Start: 11-21-2023 Influenza vaccination C [facility] Start: 07-21-2023 Iv infusion therapy prophylaxis/dx ea hour THER/PROPH/DIAG IV INF [facility] Start: 07-21-2023 Iv infusion therapy/prophylaxis /dx 1st to 1 hr THER/PROPH/DIAG IV INF [facility] Start: 07-19-2023 Iv infusion therapy prophylaxis/dx ea hour THER/PROPH/DIAG IV INF [facility] Start: 07-19-2023 Iv infusion therapy/prophylaxis /dx 1st to 1 hr THER/PROPH/DIAG IV INF [facility] Start: 07-18-2023 Iv infusion therapy prophylaxis/dx ea hour THER/PROPH/DIAG IV INF [facility] Start: 07-18-2023 Iv infusion therapy/prophylaxis /dx 1st to 1 hr THER/PROPH/DIAG IV INF [facility] Start: 07-18-2023 Following clinical pathway protocol [facility] Start: 07-18-2023 Peripherally inserte d central catheter [facility] Start: 07-17-2023 Following clinical pathway protocol [facility] Start: 07-17-2023 Peripherally inserte d central catheter [facility] Start: 07-14-2023 Iv infusion therapy prophylaxis/dx ea hour THER/PROPH/DIAG IV INF [facility] Start: 07-14-2023 Iv infusion therapy/prophylaxis /dx 1st to 1 hr THER/PROPH/DIAG IV INF [facility] Start: 07-04-2023 Iv infusion therapy prophylaxis/dx ea hour THER/PROPH/DIAG IV INF [facility] Start: 07-04-2023 Iv infusion therapy/prophylaxis /dx 1st to 1 hr THER/PROPH/DIAG IV INF [facility] Start: 07-03-2023 Peripherally inserte d central catheter [facility] Start: 06-30-2023 Iv infusion therapy prophylaxis/dx ea hour THER/PROPH/DIAG IV INF [facility] Start: 06-30-2023 Iv infusion therapy/prophylaxis /dx 1st to 1 hr THER/PROPH/DIAG IV INF [facility] Start: 06-26-2023 Iv infusion therapy prophylaxis/dx ea hour THER/PROPH/DIAG IV INF [facility] Start: 06-26-2023 Iv infusion therapy/prophylaxis /dx 1st to 1 hr THER/PROPH/DIAG IV INF [facility] Start: 06-24-2023 Iv infusion therapy prophylaxis/dx ea hour THER/PROPH/DIAG IV INF [facility] Start: 06-24-2023 Iv infusion therapy/prophylaxis /dx 1st to 1 hr THER/PROPH/DIAG IV INF [facility] Start: 06-22-2023 Iv infusion therapy prophylaxis/dx ea hour THER/PROPH/DIAG IV INF [facility] Start: 06-22-2023 Iv infusion therapy/prophylaxis /dx 1st to 1 hr THER/PROPH/DIAG IV INF [facility] Start: 06-19-2023 Following clinical pathway protocol [facility] Start: 06-19-2023 Peripherally inserte d central catheter care [facility] Start: 06-19-2023 Iv infusion therapy prophylaxis/dx ea hour THER/PROPH/DIAG IV INF [facility] Start: 06-19-2023 Iv infusion therapy/prophylaxis /dx 1st to 1 hr THER/PROPH/DIAG IV INF [facility] Start: 06-18-2023 Iv infusion therapy prophylaxis/dx ea hour THER/PROPH/DIAG IV INF [facility] Start: 06-18-2023 Iv infusion therapy/prophylaxis /dx 1st to 1 hr THER/PROPH/DIAG IV INF [facility] Start: 06-16-2023 Iv infusion therapy prophylaxis/dx ea hour THER/PROPH/DIAG IV INF [facility] Start: 06-16-2023 Iv infusion therapy/prophylaxis /dx 1st to 1 hr THER/PROPH/DIAG IV INF [facility] Start: 06-13-2023 Following clinical pathway protocol [facility] Start: 06-13-2023 Peripherally inserte d central catheter care [facility] Start: 06-12-2023 Peripherally inserte d central catheter care [facility] Start: 06-12-2023 Iv infusion therapy prophylaxis/dx ea hour THER/PROPH/DIAG IV INF [facility] Start: 06-12-2023 Iv infusion therapy/prophylaxis /dx 1st to 1 hr THER/PROPH/DIAG IV INF [facility] Start: 06-11-2023 Following clinical pathway protocol [facility] Start: 06-11-2023 End: 06-11-2023 Peripherally inserted central catheter care [facility] Start: 06-11-2023 Iv infusion therapy prophylaxis/dx ea hour THER/PROPH/DIAG IV INF [facility] Start: 06-11-2023 Iv infusion therapy/prophylaxis /dx 1st to 1 hr THER/PROPH/DIAG IV INF [facility] Start: 03-26-2023 End: 03-26-2023 Patient encounter procedure 03/26/2023 9:00 AM EST Appointment [facility] [address] [place] [id number] Behzad Almaraz MD [address] [place] [address] [facility] Start: 03-24-2023 End: 03-24-2023 Patient encounter procedure [facility] Start: 03-22-2023 Advance Directive Discussion Advance Directive Discussion [facility] Start: 03-22-2023 Behavioral Health Screening Behavioral Health Screening [facility] Start: 03-22-2023 Medicare Advantage A nnual [...] 11-20-2022 Influenza vaccination Influenza Vacc ine (#1) [facility] Start: 03-22-2022 Welcome to Medicare Visit (G0402) Welcome to Medicare Visit (G0402) [facility] Start: 2019 RSV Immunization for Adults (1 - 1-dose 75+ series) RSV Immunization for Adults (1 - 1-dose 75+ series) [facility] Start: 2019 RSV Vaccine (1 - 1-d ose 75+ series) RSV Vaccine (1 - 1-dose 75+ series) [facility] Start: 2009 Pneumococcal vaccination Pneum ococcal Vaccine(s) (65+ yrs) (1 - PCV) [facility] Start: 2009 Pneumococcal Vaccine : 65+ (1 of 1 - PCV) Pneumococcal Vaccine: 65+ (1 of 1 - PCV) [facility] Start: 2009 Screening for osteoporosis [facility] Start: 2004 RSV Immunization age d 60 or older (1 - 1-dose 60+ series) RSV Immunization aged 60 or older (1 - 1-dose 60+ series) [facility] Start: 2004 RSV Vaccine (1 - 1-d ose 60+ series) RSV Vaccine (1 - 1-dose 60+ series) [facility] Start: 2004 RSV vaccine (optiona l 60+ years) RSV vaccine (optional 60+ years) [facility] Start: 1994 Pneumococcal Vaccine : 50+ (1 of 1 - PCV) Pneumococcal Vaccine: 50+ (1 of 1 - PCV) [facility] Start: 1994 Shingles (RZV) Vacci ne (1 of 2) Shingles (RZV) Vaccine (1 of 2) [facility] Start: 1994 Shingrix Vaccine (1 of 2) Mckinnon grix Vaccine (1 of 2) [facility] Start: 1994 Zoster Vaccines (1 of 2) Zoste r Vaccines (1 of 2) [facility] Start: 1963 Pneumococcal Vaccine : 50+ Years (1 of 2 - PCV) Pneumococcal Vaccine: 50+ Years (1 of 2 - PCV) [facility] Start: 1962 Anxiety Screening Anxiety Screening [facility] Start: 1962 Depression Screening Depression Scre ening [facility] Start: 1962 Hepatitis C screening M [facility] Start: 1956 Depression Screening Depression Scre ening [...] Vaccine ( formulation) COVID-19 Vaccine ( formulation) [facility] Start: 1944 Lipid panel Lipid Panel [facility] Start: 1945 Medicare Advantage A nnual Wellness [...] es starting 03/24/2023 until 03/24/2023 Patient referral [facility] Work Phone: Immunizations Immunization Date Immunization Notes Care Provider Lydia [facility] 12-17-2022 tetanus toxoid, redu lisbeth diphtheria toxoid, and acellular pertussis vaccine, adsorbed Katelynn Chiu PA-C Work Phone: [facility] 12-08-2022 tetanus toxoid, redu lisbeth diphtheria toxoid, and acellular pertussis vaccine, adsorbed Pathology Provider [facility] Payers Date Payer Category Payer Self-pay [id number] 2022 Unknown [id number] 2022 Unknown MRA MRA [id number] 2022-Present [id number] [facility] [address] [place] [address] Commercial [id number] 2022 Medicare [id number] 1.13.56.2.7.3. [id number] 2022 Medicare [id number] 2022 [place] [id number].9 .[id number] 1944 Unknown [id number] 2.16.840.1.662925.3.579.2.732 1944 Unknown [id number] 2.16.840.1.725969.3.579.2.732 1944 Unknown [id number] 2.16840.1.700774.3.579.2.651 1944 Unknown [id number] 2.16.840.1.561408.3.579.2.651 Unknown [id number] 2.16840.1.263170.3.579.2.627 Unknown [id number] 2.16840.1.928137.3.579.2.627 Unknown [id number] 2.16.840.1.899612.3.579.2.627 Unknown [id number] 2.16.840.1.142462.3.579.2.462 Unknown [id number] 2.16.840.1.112131.3.579.2.462 Unknown [id number] 2.16.840.1.174620.3.579.2.462 Unknown [id number] 2.16.840.1.843689.3.579.2.462 Unknown [id number] 2.16.840.1.890809.3.579.2.462 Unknown [id number] 2.16.840.1.975461.3.579.2.462 Unknown [id number] 2.16.840.1.142169.3.579.2.462 Unknown [id number] 2.16.840.1.260464.3.579.2.462 Unknown [id number] 2.16.840.1.459258.3.579.2.462 Unknown [id number] 2.16.840.1.474740.3.579.2.462 Unknown [id number] 2.16.840.1.346587.3.579.2.462 Unknown [id number] 2.16.840.1.376231.3.579.2.462 Unknown [id number] 2.840.1.214647.3.579.2.462 Unknown [id number] 2.16840.1.761724.3.579.2.462 Unknown [id number] 2.840.1.579785.3.579.2.462 Unknown [id number] 2.840.1.125684.3.579.2.462 Unknown [id number] 2.840.1.493240.3.579.2.462 Unknown [id number] 2.840.1.462065.3.579.2.462 Unknown [id number] 2.840.1.151384.3.579.2.462 Unknown [id number] 2.840.1.305506.3.579.2.462 Unknown [id number] 2.840.1.927360.3.579.2.462 Unknown [id number] 2.840.1.941441.3.579.2.462 Unknown [id number] 2.16840.1.959001.3.579.2.462 Unknown [id number] 2.16840.1.614817.3.579.2.462 Unknown [id number] 2.16.840.1.624265.3.579.2.462 Unknown [id number] 2.16.840.1.875418.3.579.2.462 Unknown [id number] 2.16.840.1.260284.3.579.2.462 Unknown [id number] 2.16.840.1.673324.3.579.2.462 Unknown [id number] 2.16.840.1.785978.3.579.2.462 Unknown [id number] 2.16840.1.411234.3.579.2.462 Unknown [id number] 2.16840.1.195919.3.579.2.462 Unknown [id number] 2.16840.1.002396.3.579.2.462 Unknown [id number] 2.840.1.704162.3.579.2.462 Unknown [id number] 2.840.1.880090.3.579.2.462 Unknown [id number] 2.840.1.892303.3.579.2.462 Unknown [id number] 2.840.1.655496.3.579.2.462 Unknown [id number] 2.840.1.491043.3.579.2.462 Unknown [id number] 2.840.1.756719.3.579.2.462 Unknown [id number] 2.840.1.059794.3.579.2.462 Unknown [id number] 2.16840.1.264835.3.579.2.462 Unknown [id number] 2.16.840.1.799980.3.579.2.462 Unknown [id number] 2.16.840.1.610690.3.579.2.462 Unknown [id number] 2.16840.1.171617.3.579.2.462 Unknown [id number] 2.840.1.944043.3.579.2.462 Unknown [id number] 2.16.840.1.510446.3.579.2.462 Unknown [id number] 2.16.840.1.284056.3.579.2.462 Unknown [id number] 2.16.840.1.241624.3.579.2.462 Unknown [id number] 2.16.840.1.336104.3.579.2.462 Unknown [id number] 2.16.840.1.249768.3.579.2.462 Unknown [id number] 2.16840.1.260571.3.579.2.462 Unknown [id number] 2.16840.1.549380.3.579.2.462 Unknown [id number] 2.840.1.195692.3.579.2.462 Unknown [id number] 2.840.1.227744.3.579.2.462 Unknown [id number] 2.840.1.053258.3.579.2.462 Unknown [id number] 2.840.1.250672.3.579.2.462 Unknown [id number] 2.840.1.991210.3.579.2.462 Unknown [id number] 2.16840.1.347340.3.579.2.462 Unknown [id number] 2.16.840.1.632029.3.579.2.462 Unknown [id number] 2.840.1.090011.3.579.2.462 Unknown [id number] 2.16.840.1.750155.3.579.2.462 Unknown [id number] 2.16840.1.184649.3.579.2.462 Unknown [id number] 2.16840.1.453349.3.579.2.462 Unknown [id number] 2.16840.1.098973.3.579.2.462 Unknown [id number] 2.16.840.1.290101.3.579.2.462 Unknown [id number] 2.16.840.1.848939.3.579.2.462 Social History Date Type Detail Facility Start: [facility] Start: 1945 [facility] Start: 12-17-2022 End: 06-03-2023 Gender identity Not on file [facility] Start: 12-17-2022 End: 06-03-2023 History of Social function [facility] How often to you hav e a drink containing alcohol? Patient refused [facility] Start: 1945 Sex Assigned At Female [facility] Start: 08-21-2020 End: 06-10-2023 Tobacco smoking status Never smoked tobacco (finding) [facility] Sex Assigned At Sex [facility] Start: 06-10-2023 Tobacco use and exposure Smokeless tobacco non-user [facility] Start: 08-06-2023 End: 03-09-2024 Alcohol intake Ex-drinker (finding) [facility] Has the [employer], or [employer] threatened to shut off services in your home in past 12Mo No [facility] (I/We) worried wheth er (my/our) food would run out before (I/we) got money to buy more. Never true [facility] Start: 10-20-2021 Sex Female (finding) [facility] Medical Equipment Procedure Code Equipment Code Equipment Origin al Text Equipment Identifier Dates Graft Infuse 20g a Medium Bovine Collagen Rhbmp-2 2x1in Bone Vial Absorbable - [id number], [id number] FDA Start: 06-04-2023 Graft Bone Cance llo Chips 30cc - [id number] ()[id number] FDA Start: 06-04-2023 Graft Bone Cance llo Chips 15cc - [id number] ()[id number], [id number] FDA Start: 06-04-2023 Demineralized Sergio ne Matrix [...] Expedium Screw L ag Polyaxial Wide Titanium [id number] Start: 06-04-2023 Young Expedium 5.5 mm Titanium 65mm Spinal Prebent Line Nonsterile - [id number] Start: 06-04-2023 Young Expedium 5.5 mm Titanium 75mm Spinal Prebent Line Nonsterile - [id number] Start: 06-04-2023 Screw Expedium 6 mm Titanium 40mm Bone Fix 5.5mm Young Spine Cortical - [id number] Start: 06-04-2023 Mental Status Date Assessment Result Facility 07-29-2023 Cognitive function Awake;Alert;A ppropriate;Follow s Commands [facility] Work Phone: 07-27-2023 Cognitive function Voice/Name [facility] Work Phone: 07-26-2023 Cognitive function Voice/Name [facility] Work Phone: 07-23-2023 Cognitive function Awake;Alert [facility] Work Phone: 07-21-2023 Cognitive function Awake;Follows Commands [facility] Work Phone: 07-19-2023 Cognitive function Awake;Alert;A ppropriate;Follow s Commands [facility] Work Phone: 07-16-2023 Cognitive function Awake;Alert;A ppropriate;Follow s Commands [facility] Work Phone: 07-15-2023 Cognitive function Awake;Alert;A ppropriate;Follow s Commands [facility] Work Phone: 07-14-2023 Cognitive function Voice/Name [facility] Work Phone: 07-13-2023 Cognitive function Voice/Name [facility] Work Phone: 07-12-2023 Cognitive function Awake;Alert;Appropriat e [facility] Work Phone: 07-09-2023 Cognitive function Voice/Name [facility] Work Phone: 07-08-2023 Cognitive function Awake;Alert;A ppropriate;Follow s Commands [facility] Work Phone: 07-07-2023 Cognitive function Awake;Alert;A ppropriate;Follow s Commands [facility] Work Phone: 07-06-2023 Cognitive function Awake;Alert;A ppropriate;Follow s Commands [facility] Work Phone: 07-05-2023 Cognitive function Awake;Alert;A ppropriate;Follow s Commands [facility] Work Phone: 07-02-2023 Cognitive function Awake;Alert;A ppropriate;Follow s Commands [facility] Work Phone: 07-01-2023 Cognitive function Awake;Alert;A ppropriate;Follow s Commands [facility] Work Phone: 06-30-2023 Cognitive function Voice/Name [facility] Work Phone: 06-29-2023 Cognitive function Voice/Name [facility] Work Phone: 06-28-2023 Cognitive function Awake;Alert;A ppropriate;Follow s Commands [facility] Work Phone: 06-25-2023 Cognitive function Level Of Cons ciousness Awake;Alert;Appropriate;Follow s Commands [facility] Work Phone: 06-24-2023 Cognitive function Voice/Name [facility] Work Phone: 06-23-2023 Cognitive function Awake;Alert;A ppropriate;Follow s Commands [facility] Work Phone: 06-21-2023 Cognitive function Voice/Name [facility] Work Phone: 06-18-2023 Cognitive function Voice/Name [facility] Work Phone: 06-17-2023 Cognitive function Voice/Name [facility] Work Phone: 06-16-2023 Cognitive function Voice/Name [facility] Work Phone: 06-15-2023 Cognitive function Voice/Name [facility] Work Phone: 06-14-2023 Cognitive function Awake;Alert;A ppropriate;Follow s Commands [facility] Work Phone: Clinical Notes 11-18-2022 to 12-21-2024 Telephone Encounter - Mirella Knight RN - 04/13/2024 8:50 AM ESTTelephone Encounter - Mirella Knight RN - 04/13/2024 8:50 AM Eun Rowley PA - 03/09/2024 6:37 PM EST Note Date & Type Note Facility 12-21-2024 Note HNO ID: [id number] Author: ESTER GODOY MD Service: ? Author Type: Physician Type: Progress Notes Filed: 12/21/2024 11:03 Note Text: Pelvic ultrasound was performed on [place]. Please see imaging tab for documentation and results. Ester Godoy MD OBGYN Staff Physician SIGNATURE: Ester Godoy MD PATIENT NAME: Zoila Webster DATE: December 21, 2024 TIME: 11:03 AM PAGER/CONTACT #: Pager OBGYN Call Schedule: [facility] 12-14-2024 Note HNO ID: [id number] Author: HARI CASIANO MD Service: ? Author Type: Physician Type: Progress Notes Filed: 12/14/2024 09:28 Note Text: Obstetrics and Gynecology [place] 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 Patient/authorized accounting representative agreed to proceed CHIEF COMPLAINT: The [...] OB History No obstetric history on file. Rehab Director Occupational Therapist History LMP: Postmenopausal Age at Menarche: Age at First : Age at Menopause: Rehab Director Occupational Therapist History Comments: Sexual Activity: Not Currently; No [...] use: Not Currently Drug use: Not Currently [facility] 04-13-2024 Telephone encounter Note Per EMR review, pt was due for repeat CT Chest for assessment of 5 mm lung nodules being followed from CT Chest at [facility] on 03/21/23. Recommendation [address]. Fisher who saw her at [facility] was to repeat imaging in 4-6 months - due August 2023. Patient has had her care at [facility] since then. Does not appear any further imaging has been completed per Care Everywhere and Clinisync review. Letter mailed to patient as a reminder to continue optional lung nodule surveillance. [facility] 04-13-2024 Miscellaneous Notes Per EMR review, pt was due for repeat CT Chest for assessment of 5 mm lung nodules being followed from CT Chest at [facility] on 03/21/23. Recommendation from Dr. Fisher who saw her at [facility] was to repeat imaging in 4-6 months - due August 2023. Patient has had her care at [facility] since then. Does not appear any further imaging has been completed per Care Everywhere and Clinisync review. Letter mailed to patient as a reminder to continue optional lung nodule surveillance. documented in this encounter [facility] 04-08-2024 Note [facility] 03-21-2024 Note [facility] 03-09-2024 Note HNO ID: [id number] Author: EUN THOMAS PA Service: ? Author Type: Physician Fixed Income Director Type: Progress Notes Filed: 03/09/2024 18:40 Note Text: This note was created using Quality Systemsriter. Subjective Zoila Webster is a 78 year [...] nursing note reviewed. Exam conducted with a professor of environmental science present. Constitutional: General: She is not in [...] detail warranting prompt ER evaluation. CATHRYN Perry [facility] 03-09-2024 History of Presen t illness Narrative Images from the original note were not included. This note was created using @Payter. Subjective Zoila Webster is a 78 year [...] nursing note reviewed. Exam conducted with a professor of environmental science present. Constitutional: General: She is not in [...] evaluation. CATHRYN Perry documented in this encounter [facility] 01-28-2024 Note HNO ID: [id number] Author: MOLINA FAITH MD Service: Infectious Disease [...] Drains, and Airways Line Duration Peripheral 01/27/24 [facility] Right Forearm 22 Gauge 1 day Drain Duration External Collection Device 01/27/24 0500 [facility] 1 day DATA: Diagnostic Tests Reviewed [...] January 28, 2024 TIME: 9:18 AM . [facility] 01-28-2024 Note HNO ID: [id number] Author: RAJANI HANCOCK RN Service: Care Management [...] and do not drive. private pays a LAWN MOWER OPERATOR 4 days per week for 4 hours at a time to assist in ADLs and IADLs as needed as well as transport. Anytime patient or need transport, pays aid for transport. Per , patient is currently doing outpatient PT and ST at [facility] twice weekly. would like for patient to return home. With current services. Has assisted with IVAB in the past through [facility] and [facility] Home Infusion Pharmacy. Plan TBD pending final ID recs, FOC and medical clearance. 1:30 PM PT rec SNF; declines. Open to HHC; [facility] Referral sent in [facility]. Care Team aware. Will NEED HHC order; MD aware via [employer] chat. SIGNATURE: Rajani Hancock RN PATIENT NAME: Zoila Webster DATE: January 28, 2024 TIME: 8:35 AM PAGER/CONTACT #: [phone] [facility] 01-27-2024 Note HNO ID: [id number] Author: GRAY CHEN MD Service: Hospital Medicine Author Type: Physician Type: Progress Notes Filed: 01/27/2024 12:37 Note Text: INPATIENT PROGRESS NOTE SERVICE DATE: 01/27/2024 SERVICE TIME: 12:31pm PRIMARY SERVICE: hospitalist Subjective CHIEF COMPLAINT: right lower extremity weakness INTERVAL HPI: Patient is a 78-year-old female with past medical history as outlined who was admitted from [facility] with a diagnosis of acute osteomyelitis [...] Prophylaxis/Anticoagulants 01/27/24 0500 activity - mobilize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 again, hitting staff, and pulling collar off. Did ask for restraints to be reapplied, unable to redirect her, and trauma unable to give more meds to help with agitation. [facility] 01-20-2023 Note Problem: Potential f or Compromised Skin Integrity Goal: Skin Integrity is Maintained or Improved Outcome: Progressing Problem: Urinary Incontinence Goal: Perineal skin integrity is maintained or improved Outcome: Progressing [facility] 01-06-2023 Note Patient in chair, co mbative and ripped of C-collar. Restraints ordered after inability to reason with patient. Seroquel 25 mg ordered as a now dose. [facility] 01-04-2023 Note Referral placed to [facility] per [facility] request. Await review and response regarding ability to accept. TCC notified. [facility] 12-28-2022 Note IMPRESSION: Sinus rhythm Baseline artifact Poor R wave progression Electronically Signed On 12-28-2022 11:02:57 EDT by Faisal Mensah [facility] 12-27-2022 Note 12/27/22 @ 85[address] Dr[address] 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 [facility] 12-18-2022 Note [facility] 12-17-2022 Note [facility] 12-17-2022 Note [facility] 12-17-2022 Note [facility] 12-12-2022 Note [facility] PROGRESS NOTE NAME ACCOUNT SEX AGE ADMIT DISCHARGE PT MED. RECORD# NUMBER DATE DATE TYPE ELEANOR, [id number] F 77 11/17/22 2 ZOILA [id number] ROOM: 312 DATE OF : 1945 DICTATING [...] Ashley Rdz MD 11/19/22 12:28 JOB #: [id number] Transcribed By: corona 11/19/22 12:43 Electronically signed by: E-Sign: ASHLEY RDZ MD 12/12/22 11:22 Page 1 of 1 ZOILA WEBSTER Progress Note [facility] 11-19-2022 Note [facility] CONSULTATION REPORT NAME ACCOUNT SEX AGE ADMIT DISCHARGE PT MED. RECORD# NUMBER DATE DATE TYPE ELEANOR [id number] F [id number] 11/17/2022 2 ZOILA [id number] ROOM: [facility] DATE OF : 1945 DICTATING PHYSICIAN: [...] and Page 1 of 2 ZOILA WEBSTER Damage Assessor Report ELEANORZOILA : 1945 suspected colitis. RECOMMENDATIONS: I discussed the risks, benefits, and alternatives of colonoscopy. All questions were answered, and she voiced understanding and agreement with the plan and procedure. We will perform a colonoscopy on November 19, 2022. Dictated By: Buck Shaw MD 11/18/2022 13:26 JOB #: [id number] Transcribed By: am 11/18/2022 14:24 Electronically signed by: E-SIGN DR. SHAW 11/19/22 09:39 Page 2 of 2 ZOILA WEBSTER Damage Assessor Report [facility] 11-18-2022 Note [facility] HISTORY & PHYSICAL NAME ACCOUNT SEX AGE ADMIT DISCHARGE PT MED. RECORD# NUMBER DATE DATE TYPE ELEANOR [id number] F 77 11/17/22 2 ZOILA [id number] ROOM: 312 DATE OF : [birth year] DICTATING [...] Ashley Rdz M.D. 11/18/22 13:34 JOB #: [id number] Transcribed By: am 11/18/22 14:53 Electronically signed [...] of 3 ZOILA WEBSTER History & Physical [facility] Evaluation + Plan note Future Appointments Appointment Date:07/19/2023 04:00:00 PM Scheduled Provider:SULMA MALONE DO Location:[facility] Appointment Type:PC OV Follow Up [facility] Evaluation note Diagnosis Trauma- Primary Injury, other [...] loss of consciousness, subsequent encounter Critical polytrauma technician terminal and repeater (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 antibiotics 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 MRSA bacteremia technician terminal and repeater (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 antibiotics Critical polytrauma Pulmonary nodules/lesions, multiple Other diseases of lung, not elsewhere classified Encephalopathy Unspecified encephalopathy [facility] 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 Pulmonary nodules/lesions, multiple Other diseases of lung, not elsewhere classified MRSA bacteremia technician terminal and repeater (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 antibiotics [facility] 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 MRSA bacteremia Critical polytrauma technician terminal and repeater (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 antibiotics [facility] Diagnosis MRSA bacteremia- Primary technician terminal and repeater (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 antibiotics COVID 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 documented in this encounter [facility]* Diagnosis Acute septic pulmonary embolism, unspecified whether acute cor pulmonale present (HCC)- Primary COVID-19 virus infection documented in this encounter [facility]* 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 COVID MRSA bacteremia group home (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 antibiotics [facility] Diagnosis Acute septic pulmonary embolism, unspecified whether acute cor pulmonale present (HCC)- Primary COVID-19 virus infection MRSA bacteremia Pulmonary nodules/lesions, multiple Other diseases of lung, not elsewhere classified Traumatic hemo-pneumothorax, subsequent encounter documented in this encounter [facility]* Diagnosis Traumatic brain injury with loss of consciousness, 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 MRSA bacteremia technician terminal and repeater (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 antibiotics Critical polytrauma documented in this encounter [facility] note* Diagnosis Traumatic brain injury with loss of consciousness, 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 technician terminal and repeater (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 antibiotics Critical polytrauma MRSA bacteremia documented in this encounter [facility] note* Diagnosis Acute septic pulmonary embolism, unspecified whether acute cor pulmonale present (HCC)- Primary Pulmonary nodules/lesions, multiple Other diseases of lung, not elsewhere classified Traumatic hemo-pneumothorax, subsequent encounter Pleural effusion on right Unspecified pleural effusion documented in this encounter [facility] note* Diagnosis Traumatic brain injury with loss of consciousness, subsequent encounter- Primary MRSA bacteremia documented in this encounter [facility] note* Diagnosis Acute septic pulmonary embolism, unspecified whether acute cor pulmonale present (HCC)- Primary Pleural effusion on right Unspecified pleural effusion Pulmonary nodules/lesions, multiple Other diseases of lung, not elsewhere classified documented in this encounter [facility] note* Diagnosis Encephalopathy Unspecified encephalopathy [facility] Diagnosis Pleural effusion on right Unspecified pleural effusion documented in this encounter [facility] note* Diagnosis Pleural effusion on right- [...] pulmonale present (HCC) documented in this encounter [facility] noteNo assessment information availableWSouthern [facility] Work Phone: Evaluation note* Diagnosis Encephalopathy- Primary Unspecified encephalopathy documented in this encounter [facility] note* Diagnosis Pleural effusion on right- Primary Unspecified pleural effusion Pleural effusion on right Unspecified pleural effusion documented in this encounter [facility] note* Diagnosis Fungal infection- Primary Other and unspecified mycoses documented in this encounter [facility] note* Diagnosis Intertrigo- Primary Other specified erythematous condition documented in this encounter [facility] course Narrative No data available for this section [facility] Hospital Discharge instructions No data available for this section [facility] Progress note No data available for this section [facility] Summary Purpose Family History No Family History [...] No March 03 018 10:34am 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 No March 03, 2018 10:34am Date Activated [...] wo contrast Behzad Almaraz MD [address] [place] [address] Referral ID Status Reason Start Date Expiration Date V isits Requested Visits Authorized [id number] Authorized 03/18/2023 03/17/2024 1 1 Chief Complaint [...] and content) DATE CREATED AUTHOR 12/25/2022 [facility] DATE CREATED AUTHOR AUTHOR'S ORGANIZ ATION 02/17/2023 [facility] DATE CREATED AUTHOR AUTHOR'S ORGANIZ ATION 07/25/2023 [facility] DATE CREATED AUTHOR AUTHOR'S ORGANIZ ATION 09/15/2023 [facility] ([place]) DATE CREATED AUTHOR AUTHOR'S ORGANIZ ATION 01/28/2024 [facility] DATE CREATED AUTHOR AUTHOR'S ORGANIZ ATION 03/04/2024 [facility] DATE CREATED AUTHOR AUTHOR'S ORGANIZ ATION 04/15/2024 [facility] DATE CREATED AUTHOR AUTHOR'S ORGANIZ ATION 04/29/2024 [facility] DATE CREATED AUTHOR AUTHOR'S ORGANIZ ATION 12/26/2024 [facility] Reason for Visit (unrecogniz ed section and content) Reason Onset Date Comments Care Coordination 02/19/2023 Specialty Diagnoses / Procedures Referred By Genet t Referred To Contact Radiology Diagnoses Encephalopathy Procedures MR brain w and wo contrast Behzad Almaraz MD [address] [place] [address] Referral ID Status Reason Start Date Expiration Date V isits Requested Visits Authorized [id number] Authorized 03/18/2023 03/17/2024 1 1 Reason Onset Date Comments Other 06/11/2023 Reason Comments Rash Lower stomach and gr oin area x4 days Reason Comments Vaginal Problem Redness and pain x2 days Reason Onset Date Comments Care Coordination 04/13/2024 Lung Nodule Fo llow Up Care Teams (unrecognized sec tion and content) 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 [address] [place] [address] PCP - General 03/24/23 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 [address] [place] [address] PCP - General 03/24/23 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 [address] [place] [address] PCP - General 03/24/23 Team Status: Active Member Role Status Dates Dr. Sulma Malone DO Family Provider Active Dr. Sulma Malone DO Primary Care Provider Active Team Status: Inactive Member Role Status Dates Dr. Sulma Malone DO Primary Care Provider Active Dr. Roman Faith MD Attending Provider, Referring Provider Active Shellfish Meat Separator Operator Relationship Specialty Start Date End Date [facility] [address] [place] [address] PCP - General 03/24/23 Shellfish Meat Separator Operator Relationship Specialty Start Date End Date [facility] [address] [place] [address] PCP - General 03/24/23 Team Status: Inactive Member Role Status Dates Dr. Sulma Malone DO Primary Care Provider Active Dr. Sulma Alexander MD Attending Provider, Referrin g Provider Active Shellfish Meat Separator Operator Relationship Specialty Start Date End Date Sulma Malone DO [address] [place] [address] PCP - General Family Medicine 06/02/23 Dylan Finn DO [address] [place] [address] Orthopedics 06/10/23 Molina Faith MD [address] [address] Infectious Diseases 06/10/23 Shellfish Meat Separator Operator Relationship Specialty Start Date End Date Sulma Malone DO [address] [place] [address] PCP - General Family Medicine 06/02/23 Dylan Finn DO [address] [place] [address] Orthopedics 06/10/23 Molina Faith MD [address] [address] Infectious Diseases 06/10/23 Shellfish Meat Separator Operator Relationship Specialty Start Date End Date Shane Modi [address] [place] [address] PCP - General 03/24/23 Goals (unrecognized section [...] this informatio n is protected by the [facility] Confidentiality of Alcohol and Drug Abuse Patient Records regulations: The Federal rules restrict any use of the information to criminally investigate or prosecute any alcohol or drug abuse patient.[facility] the event this information is protected by the Federal Confidentiality of Alcohol and Drug Abuse Patient Records regulations: The Federal rules restrict any use of the information to criminally investigate or prosecute any alcohol or drug abuse patient.[facility] FOR RECORDS PERTAINING TO PATIENTS WHO [...] BE BASED ON THE PRIMARY CLINICAL RECORDS. [email or web address] [facility]. provides no warranty or guarantee of the accuracy or completeness of information in this document.
--- NOTE | 2025-03-15 18:06 | ED.RN ---
hattie schuster completed to best of this rn abilities
[2025-03-15 18:12] LABS: Appearance CSF (character) CLEAR (Clear); CSF Color COLORLESS (Colorless); Tested Tube # 4
[2025-03-15 18:14] LABS: Body Fluid QC Type(s) BF1Q
[2025-03-15 18:22] LABS: Reflex Lactate? Y
--- NOTE | 2025-03-15 18:22 | ECHOD_ITS ---
Reason For Study Reason For Study: TIA/CVA Procedure This was a 2D Doppler, Color Flow transthoracic echocardiogram. Exam performed portable in patient room. Left Ventricle Normal LV size. Normal left ventricular thickness. The estimated ejection fraction is 65???70 %. Normal diastology for age. Right Ventricle Normal RV size. Normal systolic function. Atria The left and right atria are normal. Mitral Valve Normal mitral valve. There is no mitral valve stenosis. Mild (1+) mitral valve insufficiency. Tricuspid Valve Normal tricuspid valve. There is no tricuspid stenosis. Mild (1+) tricuspid valve insufficiency. Aortic Valve Trisinus/trileaflet aortic valve. Mild diffuse aortic valve thickening. Mild diffuse aortic valve calcification. There is no aortic valve stenosis. Trivial aortic valve insufficiency. Pulmonic Valve Normal pulmonic valve. There is no pulmonic valvular stenosis. Mild (1+) pulmonic valve insufficiency. Great Vessels Ascending aorta normal size measured at 3.2 cm. Normal sized IVC that collapses with respiration/sniff. Pericardium/Pleural No pericardial effusion. MMode/2D Measurements & Calculations LVIDd: 4.4 cm IVSd: 0.80 cm LVOT diam: 2.0 cm LVIDs: 2.9 cm LVPWd: 0.71 cm LVOT area: 3.1 cm2 RVDd: 3.9 cm FS: 35.4 % asc Aorta Diam: 3.7 cm LAV(MOD-bp): 39.5 ml LVAd ap4: 20.5 cm2 LAV(MOD-bp) Indexed: 26.9 ml/m2 LVLd ap4: 6.7 cm LAV(MOD-sp2): 34.1 ml EDV(MOD-sp4): 52.4 ml LAV(MOD-sp4): 40.5 ml EDV(sp4-el): 53.1 ml LVAs ap4: 9.9 cm2 LVLs ap4: 5.2 cm ESV(MOD-sp4): 15.0 ml ESV(sp4-el): 15.9 ml EF(MOD-sp4): 71.4 % EF(sp4-el): 70.1 % LVAd ap2: 22.1 cm2 SV(MOD-sp4): 37.4 ml LVLd ap2: 7.2 cm EDV(MOD-bp): 56.9 ml SI(MOD-sp4): 25.5 ml/m2 EDV(MOD-sp2): 57.6 ml ESV(MOD-bp): 16.9 ml EDV(sp2-el): 57.1 ml EF(MOD-bp): 70.3 % LVAs ap2: 10.8 cm2 LVLs ap2: 5.3 cm ESV(MOD-sp2): 18.9 ml ESV(sp2-el): 18.9 ml EF(MOD-sp2): 67.1 % SV(MOD-sp2): 38.7 ml SV(sp4-el): 37.2 ml LA A4 area: 16.5 cm2 SI(MOD-sp2): 26.4 ml/m2 LA dimension(2D): 3.6 cm RA A4 area: 12.4 cm2 TAPSE: 2.4 cm Time Measurements MV dec time: 0.17 sec Doppler Measurements & Calculations MV E max pj: 90.6 cm/sec Lat Peak E' Pj: 11.1 cm/sec Med Peak E' Pj: 9.0 cm/sec MV A max pj: 100.0 cm/sec E/E' lat: 8.2 E/E' med: 10.0 MV E/A: 0.91 Ao V2 max: 250.6 cm/sec LV V1 max: 93.9 cm/sec MV dec slope: 544.7 cm/sec2 Ao max P.1 mmHg LV V1 max P.5 mmHg Ao V2 mean: 177.9 cm/sec LV V1 mean P.4 mmHg Ao mean P.9 mmHg LV V1 mean: 55.8 cm/sec Ao V2 VTI: 48.7 cm LV V1 VTI: 17.3 cm AV (velocity ratio): 0.35 ARABLELA(I,D): 1.1 cm2 ARABELLA(V,D): 1.2 cm2 SV(LVOT): 54.2 ml PA V2 max: 83.1 cm/sec TR max pj: 235.2 cm/sec TR max P.1 mmHg ECHO/Echo Complete Interpretation Summary The estimated ejection fraction is 65???70 %. Normal LV size. Normal left ventricular thickness. Normal diastology for age. Mild (1+) mitral valve insufficiency. Mild (1+) tricuspid valve insufficiency. Mild (1+) pulmonic valve insufficiency. Normal sized IVC that collapses with respiration/sniff. Ordering Physician: Bela Iyer Referring Physician: Gianni Vizcarra Performed By: Wang Parsons RDCS
[2025-03-15 18:35] LABS: Magnesium 1.8 mg/dL (1.5-2.2)
[2025-03-15 18:47] LABS: RBC Count, Spinal Fluid 2 /mm-3 (None seen); White Count, CSF 1 /mm-3 (0 - 5)
--- NOTE | 2025-03-15 18:52 | PCM.RX.CS ---
Consult Antibiotic Management Pharmacy has been consulted to manage selected antibiotic: Vancomycin Type of Intervention Type of Consult: New start Suspected Infection Suspected Infection: Meningitis Labs Labs: Sodium 139 mmol/L (135-145) 03/15/25 14:09 Potassium 3.4 mmol/L (3.5-5.1) L 03/15/25 14:09 Chloride 110 mmol/L (96-106) H 03/15/25 14:09 Carbon Dioxide 18.4 mmol/L (20.0-29.0) L 03/15/25 14:09 Anion Gap 10 (7-18) 03/15/25 14:09 BUN 14 mg/dL (4-19) 03/15/25 14:09 Creatinine 0.74 mg/dL (0.70-1.20) 03/15/25 14:09 Est GFR (MDRD) Non-Af 82 (>60) 03/15/25 14:09 BUN/Creatinine Ratio 19.2 RATIO (10-20) 03/15/25 14:09 Glucose 106 mg/dL (70-99) H 03/15/25 14:09 Microbiology Microbiology: Microbiology 03/15/25 14:50 Mucosa - Nose SARS-CoV-2, Influenza & RSV (PCR) - Final Pharmacy Plan for Drug Dosing Pharmacy Plan for Drug Dosing: NEW START IV VANCOMYCIN Consulting Physician: White Indication: meningitis Goal Trough: 15-20 SrCr: 0.74 mg/dL CrCl: 39 mL/min Comments: 1250mg ER dose given 03/15 @ 1723 Vancomycin Dose: Will start 750mg Q24 (03/16 @ 1700) and get a trough prior to 3rd total dose per policy Pending Level: 03/17/25 @ 1630 Pharmacy Service will continue to monitor and adjust dosing as required.
[2025-03-15 19:56] LABS: Procalcitonin 0.09 ng/mL (<=0.10)
[2025-03-15] MEDS: 0.9% Saline Lock 10 ML Syringe IV ×2 (20:01→20:52)
[2025-03-15 20:22] LABS: Hematocrit 33.2 % (37-47); Hemoglobin 11.2 g/dL (12.0-15.0)
[2025-03-15] MEDS: Pantoprazole Sodium 80 MG in 0.9% Normal Saline (100mL Bag) 80 ML 10 MG CONT INF (20:22)
[2025-03-15 20:48] LABS: Troponin T High Sens 4 HR 17 ng/L (<=14)
[2025-03-15 20:50] LABS: Ammonia 26.0 umol/L (11-51)
[2025-03-15] MEDS: 0.9% Normal Saline (250mL Bag) 250 ML 15 ML IV (20:53)
[2025-03-15 21:43] LABS: Allen Test Negative; Base Excess -5 mmol/L (-2 to +2); PO2 58 mmHG (75-100); SITE R Radial; SO2 89 % (94-98)
[2025-03-15 22:07] LABS: Auto B Fluid Analyzer BKGD Ct COUNTS W/IN LIMITS (W/IN LIMITS)
[2025-03-15 22:35] LABS: Hematocrit 33.0 % (37-47); Hemoglobin 10.9 g/dL (12.0-15.0)
--- OUTSIDE RECORDS SUMMARY | 2025-03-15 22:38 | XMS RPT_ITS | CCD ---
Author Organization [facility] Care Team Providers Care Apprentice Photographer Name Role Phone Unavailable Primary Care Provider [...] ailable SULMA MALONE DO Primary Care Physician [phone] SULMA MALONE DO Referring Unavailable ASHLEY RDZ MD Admitting Unavailable ASHLEY RDZ MD Attending Unavailable ASHLEY RDZ MD Primary Care Unavailable REGINALDO CABRERA RADIO STATION MANAGER Consulting Unavailable PROVIDER, UNKNOWN Consulting Unavailable FAISAL GARCIA Admitting Unavailable FAISAL GARCIA Attending Unavailable FAISAL GARCIA Primary Care Unavailable REGINALDO CABRERA RADIO STATION MANAGER Consulting Unavailable REGINALDO CABRERA RADIO STATION MANAGER Referring Unavailable PROVIDER, UNKNOWN Consulting Unavailable Sulma Malone DO Primary Care Provider [phone] Dylan Finn DO Unavailable Molina Faith MD Unavailable [phone] SULMA MALONE DO Primary Care Unavailable MOLINA [...] Attending Unavailable MOLINA FAITH Consulting Gabriel salter [facility], SULMA Primary Care Unavailable Roman Faith Attending [...] Referring Unavailable Faisal, Sulma Primary Care Unavailable Amrcell, Roman Attending Unavailable Marcell, Marc Referring Unavailable [...] Propensity to adverse reactions 06-22-19 18 Swelling [facility] (20 sources) Valproate; Translations: [VALPROIC ACID] Drug Allergy 02-09-20 Hallucinations [facility] Work Phone: (20 sources) Penicillins Allergy to substance 12-18-19 Swelling [facility] (2 sources) Penicillin; Translations: [penicillin] Drug Allergy Weal (disorder) [facility] (1 source) Penicillin Drug Allergy [facility] Repository (2 sources) Penicillins Drug Allergy 06-22-19 18 Hives, Unknown, Swelling [facility] (2 sources) Valproate Drug Allergy 02-09-20 Mental Status Change [facility] (1 source) Penicillins Drug allergy (disorder) 04-03-19 [facility] Repository Medications Current Medications Medication Drug Class(es) [...] 30 tablet 2 06/09/2023 09/07/2023 Active nystatin [id number] unt/ml topical cream (2 sources) Polyene Antifungal [...] qHS, # 30 tab(s), 0 Refill(s), Pharmacy: [id number], Insomnia, 147.3, cm, 04/19/23 12:59:00 EST, [...] 3 01-18-2023 Chronic Other aftercare (2 sources) USP (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 antibiotics; Translations: [buttermaker (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 antibiotics] Onset: 3 Episodic [...] loss of consciousness status unknown, initial encounter ([facility]); Translations: [Traumatic subdural hemorrhage with loss of consciousness status unknown, initial encounter ([facility])] Onset: 3 Unclassified (1 source) Unspecified intracranial injury with loss of consciousness status unknown, initial encounter ([facility]); Translations: [Unspecified intracranial injury with loss of consciousness status unknown, initial encounter ([facility])] Onset: 3 Unclassified (1 source) Acute [...] sources) Long-term current use of antibiotic; Translations: [USP (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 antibiotics] Onset: 03-01-2023 03-01-2023 Episodic Other aftercare (1 source) Encounter for adjustment and management of vascular access device; Translations: [PICC (peripherally inserted central catheter) in place] Onset: 06-10-2023 Episodic 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 (2 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) Intraspinal abscess [...] loss of consciousness status unknown, initial encounter ([facility]); Translations: [Traumatic subdural hemorrhage with loss of consciousness status unknown, initial encounter ([facility])] Onset: 12-17-2022 Unclassified (1 source) Unspecified intracranial injury with loss of consciousness status unknown, initial encounter ([facility]); Translations: [Unspecified intracranial injury with loss of consciousness status unknown, initial encounter ([facility])] Onset: 12-17-2022 Viral infection (20 sources) Disease caused by 2019-nCoV; Translations: [COVID-19] Onset: 03-09-2023 03-10-2023 Episodic Results Test Name Value Interpretation Reference Range Facility OV 12-14-2024 CNOV Office Visit (OBGYWM ) ZOILA WEBSTER ([id number]) 1945 F Date Time Provider Department 12/14/24 8:30 AM HARI CASIANO OBGYWM During your visit today, we recorded the following information about you: Blood pressure Weight 118/68 53.3 kg Hari Casiano MD 12/14/2024 9:28 AM Signed Obstetrics and Gynecology [facility] EDUCATION DEPARTMENT CHAIR Visit Subjective Recording using CareSimply software for draft documentation of the visit was discussed with the patient/authorized pharmaceutical representative; all questions welcomed and answered. Patient/authorized pharmaceutical representative agreed to proceed CHIEF COMPLAINT: The [...] OB History No obstetric history on file. Supervisor Extrusion History LMP: Postmenopausal Age at Menarche: Age at First : Age at Menopause: Supervisor Extrusion History Comments: Sexual Activity: Not Currently; No [...] 12/14/2024 9:27 AM Signed - Contact the hotel front desk agent to schedule a dedicated pelvic ultrasound in Radiology; if you have trouble getting an appointment, send a [employer] message to my staff. - The ultrasound will be read by a gynecologic neurology specialist and may include an abdominal and/or [...] Status Change Date Reviewed: 12/14/2024 Reviewed by: Hair Casiano MD - Fully Assessed Reason for Visit: Well Woman [1463] Primary Visit Diagnosis:Uterine leiomyoma, unspecified location [D25.9] Order(s):PELVIC US WHI [7503024] Order #: [id number]: 1 FUTURE Problem List As Of Date 12/14/2024 Noted Resolved MRSA bacteremia [R78.81, B95.62] 06/09/2023 Anemia associated with acute blood loss [D62] 06/09/2023 TBI (traumatic brain injury) (HCC) [S06.9XAA] 06/09/2023 Chronic back pain [M54.9, G89.29] 06/09/2023 History of colitis [Z87.19] 06/09/2023 GERD (gastroesophageal reflux disease) [K (more content not included)... Normal [facility] 36on 04-13-2024 36 Per EMR review, pt w as due for repeat CT Chest for assessment of 5 mm lung nodules being followed from CT Chest at [facility] on 03/21/23. [address] Fisher who saw her at [facility] was to repeat imaging in 4-6 months - due August 2023. Patient has had her care at [facility] since then. Does not appear any further imaging has been completed per Care Everywhere and [facility] review. Letter mailed to patient as a reminder to continue optional lung nodule surveillance. Normal [facility] CDIFF (PCR)on 04-07-2024 CDIFF Normal [facility] Comment on above: Performed By: #### M 100.6796 ####[facility] [address] [place], [address] Urine Cultureon 04-05-2024 URC Normal [facility] Comment on above: Performed By: #### M 100.2200 ####[facility] [address] [place], [address] CBC W/Diff, Automatedon 03-22 Absolute Lymph 3.33 X10 3/uL Normal 0.83-4.51 [facility] Comment on above: Performed By: #### L 100.0100, L501.5200, L501.2300, L500.4050 ####[facility] [address] [place], [address] Absolute Neut 9.2 X10 3/uL High 2.0-7.7 [facility] Comment on above: Performed By: #### L 100.0100, L501.5200, L501.2300, L500.4050 ####[facility] [address] [place], [address] Basophils/100 WBC (Bld) 0.3 % Normal 0-1 [facility] Comment on above: Performed By: #### L 100.0100, L501.5200, L501.2300, L500.4050 ####[facility] [address] [place], [address] Eosinophils/100 WBC (Bld) 0.7 % Normal 0-5 [facility] Comment on above: Performed By: #### L 100.0100, L501.5200, L501.2300, L500.4050 ####[facility] [address] [place], [address] Erythrocyte distribution width (RBC) [Ratio] 12.6 % Normal 11.6-14.6 [facility] Comment on above: Performed By: #### L 100.0100, L501.5200, L501.2300, L500.4050 ####[facility] [address] [place], [address] Hematocrit (Bld) [Volume fraction] 37.0 % Normal 37-47 [facility] Comment on above: Performed By: #### L 100.0100, L501.5200, L501.2300, L500.4050 ####[facility] [address] [place], [address] Hemoglobin (Bld) [Mass/Vol] 12.1 g/dL Normal 12.0-15.0 [facility] Comment on above: Performed By: #### L 100.0100, L501.5200, L501.2300, L500.4050 ####[facility] [address] [place], [address] IG% 0.400 Normal 0.0-0.9 [facility] Comment on above: Result Comment: IG% - Immature Granulocytes (promyelocytes, myelocytes andmetamyelocytes) > 1% indicates that a LEFT SHIFT is Present. Performed By: #### L 100.0100, L501.5200, L501.2300, L500.4050 ####[facility] [address] [place], [address] Lymphocytes/100 WBC (Bld) 24.2 % Normal 19-41 [facility] Comment on above: Performed By: #### L 100.0100, L501.5200, L501.2300, L500.4050 ####[facility] [address] [place], [address] MCH (RBC) [Entitic mass] 27.5 pg Normal 27.0-32.0 [facility] Comment on above: Performed By: #### L 100.0100, L501.5200, L501.2300, L500.4050 ####[facility] [address] [place], [address] MCHC (RBC) [Mass/Vol] 32.7 g/dL Normal 32-36 [facility] Comment on above: Performed By: #### L 100.0100, L501.5200, L501.2300, L500.4050 ####[facility] [address] [place], [address] MCV (RBC) [Entitic vol] 84.1 fL Normal 81-99 [facility] Comment on above: Performed By: #### L 100.0100, L501.5200, L501.2300, L500.4050 ####[facility] [address] [place], [address] Monocytes/100 WBC (Bld) 7.6 % Normal 0-10 [facility] Comment on above: Performed By: #### L 100.0100, L501.5200, L501.2300, L500.4050 ####[facility] [address] [place], [address] Neutrophils/100 WBC (Bld) 66.8 % Normal 47-70 [facility] Comment on above: Performed By: #### L 100.0100, L501.5200, L501.2300, L500.4050 ####[facility] [address] [place], [address] Nucleated RBC (Bld) [#/Vol] 0 10*3/uL Normal 0-5 [facility] Comment on above: Performed By: #### L 100.0100, L501.5200, L501.2300, L500.4050 ####[facility] [address] [place], [address] Platelet mean volume (Bld) [Entitic vol] 9.2 fL Normal 6.2-12.0 [facility] Comment on above: Performed By: #### L 100.0100, L501.5200, L501.2300, L500.4050 ####[facility] [address] [place], [address] Platelets (Bld) [#/Vol] 363 10*3/uL Normal 150-450 [facility] Comment on above: Performed By: #### L 100.0100, L501.5200, L501.2300, L500.4050 ####[facility] [address] [place], [address] RBC (Bld) [#/Vol] 4.40 10*6/uL Normal 4.2-5.4 [facility] Comment on above: Performed By: #### L 100.0100, L501.5200, L501.2300, L500.4050 ####[facility] [address] [place], [address] RDW SD 38.7 fl Normal 35.1-43.9 [facility] Comment on above: Performed By: #### L 100.0100, L501.5200, L501.2300, L500.4050 ####[facility] [address] [place], [address] WBC (Bld) [#/Vol] 13.7 10*3/uL High 4.4-11.0 [facility] Comment on above: Performed By: #### L 100.0100, L501.5200, L501.2300, L500.4050 ####[facility] [address] [place], [address] Comprehensive Metabolic Prof ilon 04-04-2024 Albumin [Mass/Vol] 2.8 g/dL Low 3.2-5.0 [facility] Comment on above: Performed By: #### L 100.0100, L501.5200, L501.2300, L500.4050 ####[facility] [address] [place], [address] Albumin/Globulin [Mass ratio] 0.7 {ratio} Low 0.9-2.4 [facility] Comment on above: Performed By: #### L 100.0100, L501.5200, L501.2300, L500.4050 ####[facility] [address] [place], [address] ALK P 55 U/L Normal 45-117 [facility] Comment on above: Performed By: #### L 100.0100, L501.5200, L501.2300, L500.4050 ####[facility] [address] [place], [address] ALT [Catalytic activity/Vol] 12 U/L Low 13-56 [facility] Comment on above: Performed By: #### L 100.0100, L501.5200, L501.2300, L500.4050 ####[facility] [address] [place], [address] AST [Catalytic activity/Vol] 17 U/L Normal 15-37 [facility] Comment on above: Result Comment: Slig ht Hemolysis, Result may be falsely increased. Performed By: #### L 100.0100, L501.5200, L501.2300, L500.4050 ####[facility] [address] [place], [address] Bilirubin [Mass/Vol] 0.60 mg/dL Normal 0.20-1.00 [facility] Comment on above: Result Comment: For patients on eltrombopag therapy, use of Dimension [place] TBIL is not recommended. Performed By: #### L 100.0100, L501.5200, L501.2300, L500.4050 ####[facility] [address] [place], [address] BUN/CRE 25.8 RATIO High 10-20 [facility] Comment on above: Performed By: #### L 100.0100, L501.5200, L501.2300, L500.4050 ####[facility] [address] [place], [address] CA,Total 9.6 mg/dL Normal 8.5-10.1 [facility] Comment on above: Performed By: #### L 100.0100, L501.5200, L501.2300, L500.4050 ####[facility] [address] [place], [address] Chloride [Moles/Vol] 114 mmol/L High 98-107 [facility] Comment on above: Performed By: #### L 100.0100, L501.5200, L501.2300, L500.4050 ####[facility] [address] [place], [address] CO2 [Moles/Vol] 23.0 mmol/L Normal 21.0-32.0 [facility] Comment on above: Performed By: #### L 100.0100, L501.5200, L501.2300, L500.4050 ####[facility] [address] [place], [address] Creatinine [Mass/Vol] 0.89 mg/dL Normal 0.55-1.02 [facility] Comment on above: Result Comment: The validity of the calculated GFR GFRAA in patients over70 years has not been determined. Clinical correlation isessential. Performed By: #### L 100.0100, L501.5200, L501.2300, L500.4050 ####[facility] [address] [place], [address] ECRCL 36.21 ml/min Normal [facility] Comment on above: Performed By: #### L 100.0100, L501.5200, L501.2300, L500.4050 ####[facility] [address] [place], [address] EST GFR - AA 78 mL/min Normal >60 [facility] Comment on above: Result Comment: Afri can [place]eg[place] GFR Calc Performed By: #### L 100.0100, L501.5200, L501.2300, L500.4050 ####[facility] [address] [place], [address] GAP 5 Normal 5-15 [facility] Comment on above: Performed By: #### L 100.0100, L501.5200, L501.2300, L500.4050 ####[facility] [address] [place], [address] GFR/1.73 sq M.predicted among non-blacks MDRD (S/P/Bld) [Vol rate/Area] 65 mL/min/{1.73_m2} Normal >60 [facility] Comment on above: Result Comment: Non- GFR Calc Performed By: #### L 100.0100, L501.5200, L501.2300, L500.4050 ####[facility] [address] [place], [address] Globulin (S) [Mass/Vol] 4.2 g/dL Normal 2.2-4.2 [facility] Comment on above: Performed By: #### L 100.0100, L501.5200, L501.2300, L500.4050 ####[facility] [address] [place], [address] Glucose [Mass/Vol] 107 mg/dL High 74-106 [facility] Comment on above: Result Comment: Fast ing Glucose result from 100 to 125 mg/dLsuggests IMPAIRED HOMEOSTASIS per A.D.A. criteria. Performed By: #### L 100.0100, L501.5200, L501.2300, L500.4050 ####[facility] [address] [place], [address] Potassium [Moles/Vol] 4.3 mmol/L Normal 3.5-5.1 [facility] Comment on above: Result Comment: Slig ht Hemolysis, Result may be falsely increased. Performed By: #### L 100.0100, L501.5200, L501.2300, L500.4050 ####[facility] [address] [place], [address] Sodium [Moles/Vol] 141 mmol/L Normal 136-145 [facility] Comment on above: Performed By: #### L 100.0100, L501.5200, L501.2300, L500.4050 ####[facility] [address] [place], [address] T PROT 7.0 g/dL Normal 6.4-8.2 [facility] Comment on above: Performed By: #### L 100.0100, L501.5200, L501.2300, L500.4050 ####[facility] [address] [place], [address] Urea nitrogen [Mass/Vol] 23 mg/dL High 7-18 [facility] Comment on above: Performed By: #### L 100.0100, L501.5200, L501.2300, L500.4050 ####[facility] [address] [place], [address] Magnesiumon 04-04-2024 Magnesium [Mass/Vol] 2.2 mg/dL Normal 1.6-2.6 [facility] Comment on above: Result Comment: Slig ht Hemolysis, Result may be falsely increased. Performed By: #### L 100.0100, L501.5200, L501.2300, L500.4050 ####[facility] [address] [place], [address] Phosphoruson 04-04-2024 Phosphate [Mass/Vol] 2.5 mg/dL Normal 2.5-4.9 [facility] Comment on above: Performed By: #### L 100.0100, L501.5200, L501.2300, L500.4050 ####[facility] [address] [place], [address] Bedside Glucoseon 04-03-2024 FINGERSTICK GLU 104 mg/dL Normal 74-106 [facility] Comment on above: Result Comment: SARAH CORREA OF PATIENT CARE PER NURSING PROTOCOL Performed By: #### L 501.080 ####[facility] [address] [place], [address] CBC W/Diff, Automatedon 03-22 Absolute Lymph 3.40 X10 3/uL Normal 0.83-4.51 [facility] Comment on above: Performed By: #### L 500.4050, L100.0100 ####[facility] [address] [place], [address] Absolute Neut 10.5 X10 3/uL High 2.0-7.7 [facility] Comment on above: Performed By: #### L 500.4050, L100.0100 ####[facility] [address] [place], [address] Basophils/100 WBC (Bld) 0.3 % Normal 0-1 [facility] Comment on above: Performed By: #### L 500.4050, L100.0100 ####[facility] [address] [place], [address] Eosinophils/100 WBC (Bld) 0.5 % Normal 0-5 [facility] Comment on above: Performed By: #### L 500.4050, L100.0100 ####[facility] [address] [place], [address] Erythrocyte distribution width (RBC) [Ratio] 12.7 % Normal 11.6-14.6 [facility] Comment on above: Performed By: #### L 500.4050, L100.0100 ####[facility] [address] [place], [address] Hematocrit (Bld) [Volume fraction] 42.5 % Normal 37-47 [facility] Comment on above: Performed By: #### L 500.4050, L100.0100 ####[facility] [address] [place], [address] Hemoglobin (Bld) [Mass/Vol] 13.8 g/dL Normal 12.0-15.0 [facility] Comment on above: Performed By: #### L 500.4050, L100.0100 ####[facility] [address] [place], [address] IG% 0.400 Normal 0.0-0.9 [facility] Comment on above: Result Comment: IG% - Immature Granulocytes (promyelocytes, myelocytes andmetamyelocytes) > 1% indicates that a LEFT SHIFT is Present. Performed By: #### L 500.4050, L100.0100 ####[facility] [address] [place], [address] Lymphocytes/100 WBC (Bld) 22.2 % Normal 19-41 [facility] Comment on above: Performed By: #### L 500.4050, L100.0100 ####[facility] [address] [place], [address] MCH (RBC) [Entitic mass] 27.3 pg Normal 27.0-32.0 [facility] Comment on above: Performed By: #### L 500.4050, L100.0100 ####[facility] [address] [place], [address] MCHC (RBC) [Mass/Vol] 32.5 g/dL Normal 32-36 [facility] Comment on above: Performed By: #### L 500.4050, L100.0100 ####[facility] [address] [place], [address] MCV (RBC) [Entitic vol] 84.0 fL Normal 81-99 [facility] Comment on above: Performed By: #### L 500.4050, L100.0100 ####[facility] [address] [place], [address] Monocytes/100 WBC (Bld) 8.0 % Normal 0-10 [facility] Comment on above: Performed By: #### L 500.4050, L100.0100 ####[facility] [address] [place], [address] Neutrophils/100 WBC (Bld) 68.6 % Normal 47-70 [facility] Comment on above: Performed By: #### L 500.4050, L100.0100 ####[facility] [address] [place], [address] Nucleated RBC (Bld) [#/Vol] 0 10*3/uL Normal 0-5 [facility] Comment on above: Performed By: #### L 500.4050, L100.0100 ####[facility] [address] [place], [address] Platelet mean volume (Bld) [Entitic vol] 8.8 fL Normal 6.2-12.0 [facility] [facility] Comment on above: Performed By: #### L 500.4050, L100.0100 ####[facility] [address] [place], [address] Platelets (Bld) [#/Vol] 398 10*3/uL Normal 150-450 [facility] Comment on above: Performed By: #### L 500.4050, L100.0100 ####[facility] [address] [place], [address] RBC (Bld) [#/Vol] 5.06 10*6/uL Normal 4.2-5.4 [facility] Comment on above: Performed By: #### L 500.4050, L100.0100 ####[facility] [address] [place], [address] RDW SD 38.9 fl Normal 35.1-43.9 [facility] Comment on above: Performed By: #### L 500.4050, L100.0100 ####[facility] [address] [place], [address] WBC (Bld) [#/Vol] 15.3 10*3/uL High 4.4-11.0 [facility] Comment on above: Performed By: #### L 500.4050, L100.0100 ####[facility] [address] [place], [address] Comprehensive Metabolic Prof ilon 04-03-2024 Albumin [Mass/Vol] 3.4 g/dL Normal 3.2-5.0 [facility] Comment on above: Performed By: #### L 500.4050, L100.0100 ####[facility] [address] [place], [address] Albumin/Globulin [Mass ratio] 0.7 {ratio} Low 0.9-2.4 [facility] Comment on above: Performed By: #### L 500.4050, L100.0100 ####[facility] [address] [place], [address] ALK P 71 U/L Normal 45-117 [facility] Comment on above: Performed By: #### L 500.4050, L100.0100 ####[facility] [address] [place], [address] ALT [Catalytic activity/Vol] 13 U/L Normal 13-56 [facility] Comment on above: Performed By: #### L 500.4050, L100.0100 ####[facility] [address] [place], [address] AST [Catalytic activity/Vol] 12 U/L Low 15-37 [facility] Comment on above: Performed By: #### L 500.4050, L100.0100 ####[facility] [address] [place], [address] Bilirubin [Mass/Vol] 0.50 mg/dL Normal 0.20-1.00 [facility] Comment on above: Result Comment: For patients on eltrombopag therapy, use of Dimension [place] TBIL is not recommended. Performed By: #### L 500.4050, L100.0100 ####[facility] [address] [place], [address] BUN/CRE 22.3 RATIO High 10-20 [facility] Comment on above: Performed By: #### L 500.4050, L100.0100 ####[facility] [address] [place], [address] CA,Total 10.6 mg/dL High 8.5-10.1 [facility] Comment on above: Performed By: #### L 500.4050, L100.0100 ####[facility] [address] [place], [address] Chloride [Moles/Vol] 110 mmol/L High 98-107 [facility] Comment on above: Performed By: #### L 500.4050, L100.0100 ####[facility] [address] [place], [address] CO2 [Moles/Vol] 25.0 mmol/L Normal 21.0-32.0 [facility] Comment on above: Performed By: #### L 500.4050, L100.0100 ####[facility] [address] [place], [address] Creatinine [Mass/Vol] 0.90 mg/dL Normal 0.55-1.02 [facility] Comment on above: Result Comment: The validity of the calculated GFR GFRAA in patients over70 years has not been determined. Clinical correlation isessential. Performed By: #### L 500.4050, L100.0100 ####[facility] [address] [place], [address] ECRCL 35.81 ml/min Normal [facility] Comment on above: Performed By: #### L 500.4050, L100.0100 ####[facility] [address] [place], [address] EST GFR - AA 78 mL/min Normal >60 [facility] Comment on above: Result Comment: Afri can [place] GFR Calc Performed By: #### L 500.4050, L100.0100 ####[facility] [address] [place], [address] GAP 6 Normal 5-15 [facility] Comment on above: Performed By: #### L 500.4050, L100.0100 ####[facility] [address] [place], [address] GFR/1.73 sq M.predicted among non-blacks MDRD (S/P/Bld) [Vol rate/Area] 64 mL/min/{1.73_m2} Normal >60 [facility] Comment on above: Result Comment: Non- GFR Calc Performed By: #### L 500.4050, L100.0100 ####[facility] [address] [place], [address] Globulin (S) [Mass/Vol] 4.9 g/dL High 2.2-4.2 [facility] Comment on above: Performed By: #### L 500.4050, L100.0100 ####[facility] [address] [place], [address] Glucose [Mass/Vol] 116 mg/dL High 74-106 [facility] Comment on above: Result Comment: Fast ing Glucose result from 100 to 125 mg/dLsuggests IMPAIRED HOMEOSTASIS per A.D.A. criteria. Performed By: #### L 500.4050, L100.0100 ####[facility] [address] [place], [address] Potassium [Moles/Vol] 4.3 mmol/L Normal 3.5-5.1 [facility] Comment on above: Performed By: #### L 500.4050, L100.0100 ####[facility] [address] [place], [address] Sodium [Moles/Vol] 141 mmol/L Normal 136-145 [facility] Comment on above: Performed By: #### L 500.4050, L100.0100 ####[facility] [address] [place], [address] T PROT 8.3 g/dL High 6.4-8.2 [facility] Comment on above: Performed By: #### L 500.4050, L100.0100 ####[facility] [address] [place], [address] Urea nitrogen [Mass/Vol] 20 mg/dL High 7-18 [facility] Comment on above: Performed By: #### L 500.4050, L100.0100 ####[facility] [address] [place], [address] Emergency Department Summary on 04-03-2024 Emergency Department Summary Normal [facility] H AND P Exam - Hospitaliston 04-03-2024 H&P Exam - Hospitalist Normal [facility] M100.678on 04-03-2024 M100.678 Pending SARS-CoV-2 (COVID 19) Negative INFLUENZA A Negative INFLUENZA B Negative RSV PCR Negative Normal [facility] Comment on above: Performed By: #### M 100.678 ####[facility] [address] [place], [address] Urinalysis, Completeon 04-03 Mucus Ql (Urine sed) 1+ /hpf Normal [facility] Comment on above: Order Comment: RODNEY TER SPECIMEN Performed By: #### L 400.0001 ####[facility] [address] [place], [address] RBC 5-10 SEEN Normal 0-5 [facility] Comment on above: Order Comment: RODNEY TER SPECIMEN Performed By: #### L 400.0001 ####[facility] [address] [place], [address] WBC >100 SEEN Normal 0-5 [facility] Comment on above: Order Comment: RODNEY TER SPECIMEN Performed By: #### L 400.0001 ####[facility] [address] [place], [address] BACTERIA 0 SEEN Normal None Seen [facility] Comment on above: Order Comment: RODNEY TER SPECIMEN Performed By: #### L 400.0001 ####[facility] [address] [place], [address] EPI,SQUAMOUS 0 SEEN Normal 5-10 [facility] Comment on above: Order Comment: RODNEY TER SPECIMEN Performed By: #### L 400.0001 ####[facility] [address] [place], [address] Culture, Blood (WB)on 2024 CUB Blood cultures x2, f rom two different sites No growth in 5 days. Normal [facility] Comment on above: Performed By: #### M 200.1000 ####[facility] [address] [place], [address] CUB Blood cultures x2, f rom two different sites No growth in 5 days. Normal [facility] Comment on above: Performed By: #### M 200.1000 ####[facility] [address] [place], [address] Basic Metabolic Profile (BMP )on 03-23-2024 BUN Normal 7-18 [facility] Comment on above: Result Comment: Canc elled via OM: Order cancelled - Patient discharged Performed By: #### L 500.2500, L100.0500 ####[facility] [address] [place], [address] BUN/CRE Normal 10-20 [facility] Comment on above: Result Comment: Canc elled via OM: Order cancelled - Patient discharged Performed By: #### L 500.2500, L100.0500 ####[facility] [address] [place], [address] CA,Total Normal 8.5-10.1 [facility] Comment on above: Result Comment: Canc elled via OM: Order cancelled - Patient discharged Performed By: #### L 500.2500, L100.0500 ####[facility] [address] [place], [address] CL Normal 98-107 [facility] Comment on above: Result Comment: Canc elled via OM: Order cancelled - Patient discharged Performed By: #### L 500.2500, L100.0500 ####[facility] [address] [place], [address] CO2 Normal 21.0-32.0 [facility] Comment on above: Result Comment: Canc elled via OM: Order cancelled - Patient discharged Performed By: #### L 500.2500, L100.0500 ####[facility] [address] [place], [address] CREAT,SERUM Normal 0.55-1.02 [facility] Comment on above: Result Comment: Canc elled via OM: Order cancelled - Patient discharged Performed By: #### L 500.2500, L100.0500 ####[facility] [address] [place], [address] EST GFR Normal >60 [facility] Comment on above: Result Comment: Canc elled via OM: Order cancelled - Patient discharged Performed By: #### L 500.2500, L100.0500 ####[facility] [address] [place], [address] EST GFR - AA Normal >60 [facility] Comment on above: Result Comment: Canc elled via OM: Order cancelled - Patient discharged Performed By: #### L 500.2500, L100.0500 ####[facility] [address] [place], [address] GAP Normal 5-15 [facility] Comment on above: Result Comment: Canc elled via OM: Order cancelled - Patient discharged Performed By: #### L 500.2500, L100.0500 ####[facility] [address] [place], [address] GLU Normal 74-106 [facility] Comment on above: Result Comment: Canc elled via OM: Order cancelled - Patient discharged Performed By: #### L 500.2500, L100.0500 ####[facility] [address] [place], [address] Potassium Normal 3.5-5.1 [facility] Comment on above: Result Comment: Canc elled via OM: Order cancelled - Patient discharged Performed By: #### L 500.2500, L100.0500 ####[facility] [address] [place], [address] Basic Metabolic Profile (BMP) Normal 136-145 [facility] Comment on above: Result Comment: Canc elled via OM: Order cancelled - Patient discharged Performed By: #### L 500.2500, L100.0500 ####[facility] [address] [place], [address] CBC-Complete Blood Cnt No Di ffon 03-23-2024 HCT Normal 37-47 [facility] Comment on above: Result Comment: Canc elled via OM: Order cancelled - Patient discharged Performed By: #### L 500.2500, L100.0500 ####[facility] [address] [place], [address] HGB Normal 12.0-15.0 [facility] Comment on above: Result Comment: Canc elled via OM: Order cancelled - Patient discharged Performed By: #### L 500.2500, L100.0500 ####[facility] [address] [place], [address] MCH Normal 27.0-32.0 [facility] Comment on above: Result Comment: Canc elled via OM: Order cancelled - Patient discharged Performed By: #### L 500.2500, L100.0500 ####[facility] [address] [place], [address] MCHC Normal 32-36 [facility] Comment on above: Result Comment: Canc elled via OM: Order cancelled - Patient discharged Performed By: #### L 500.2500, L100.0500 ####[facility] [address] [place], [address] MCV Normal 81-99 [facility] Comment on above: Result Comment: Canc elled via OM: Order cancelled - Patient discharged Performed By: #### L 500.2500, L100.0500 ####[facility] [address] [place], [address] PLT Normal 150-450 [facility] Comment on above: Result Comment: Canc elled via OM: Order cancelled - Patient discharged Performed By: #### L 500.2500, L100.0500 ####[facility] [address] [place], [address] RBC Normal 4.2-5.4 [facility] Comment on above: Result Comment: Canc elled via OM: Order cancelled - Patient discharged Performed By: #### L 500.2500, L100.0500 ####[facility] [address] [place], [address] RDW CV Normal 11.6-14.6 [facility] Comment on above: Result Comment: Canc elled via OM: Order cancelled - Patient discharged Performed By: #### L 500.2500, L100.0500 ####[facility] [address] [place], [address] RDW SD Normal 35.1-43.9 [facility] Comment on above: Result Comment: Canc elled via OM: Order cancelled - Patient discharged Performed By: #### L 500.2500, L100.0500 ####[facility] [address] [place], [address] WBC Normal 4.4-11.0 [facility] Comment on above: Result Comment: Canc elled via OM: Order cancelled - Patient discharged Performed By: #### L 500.2500, L100.0500 ####[facility] [address] [place], [address] Basic Metabolic Profile (BMP )on 03-22-2024 BUN Normal 7-18 [facility] Comment on above: Result Comment: Canc elled via OM: Order cancelled - Patient discharged Performed By: #### L 500.2500, L100.0500 ####[facility] [address] [place], [address] BUN/CRE Normal 10-20 [facility] Comment on above: Result Comment: Canc elled via OM: Order cancelled - Patient discharged Performed By: #### L 500.2500, L100.0500 ####[facility] [address] [place], [address] CA,Total Normal 8.5-10.1 [facility] Comment on above: Result Comment: Canc elled via OM: Order cancelled - Patient discharged Performed By: #### L 500.2500, L100.0500 ####[facility] [address] [place], [address] CL Normal 98-107 [facility] Comment on above: Result Comment: Canc elled via OM: Order cancelled - Patient discharged Performed By: #### L 500.2500, L100.0500 ####[facility] [address] [place], [address] CO2 Normal 21.0-32.0 [facility] Comment on above: Result Comment: Canc elled via OM: Order cancelled - Patient discharged Performed By: #### L 500.2500, L100.0500 ####[facility] [address] [place], [address] CREAT,SERUM Normal 0.55-1.02 [facility] Comment on above: Result Comment: Canc elled via OM: Order cancelled - Patient discharged Performed By: #### L 500.2500, L100.0500 ####[facility] [address] [place], [address] EST GFR Normal >60 [facility] Comment on above: Result Comment: Canc elled via OM: Order cancelled - Patient discharged Performed By: #### L 500.2500, L100.0500 ####[facility] [address] [place], [address] EST GFR - AA Normal >60 [facility] Comment on above: Result Comment: Canc elled via OM: Order cancelled - Patient discharged Performed By: #### L 500.2500, L100.0500 ####[facility] [address] [place], [address] GAP Normal 5-15 [facility] Comment on above: Result Comment: Canc elled via OM: Order cancelled - Patient discharged Performed By: #### L 500.2500, L100.0500 ####[facility] [address] [place], [address] GLU Normal 74-106 [facility] Comment on above: Result Comment: Canc elled via OM: Order cancelled - Patient discharged Performed By: #### L 500.2500, L100.0500 ####[facility] [address] [place], [address] Potassium Normal 3.5-5.1 [facility] Comment on above: Result Comment: Canc elled via OM: Order cancelled - Patient discharged Performed By: #### L 500.2500, L100.0500 ####[facility] [address] [place], [address] Basic Metabolic Profile (BMP) Normal 136-145 [facility] Comment on above: Result Comment: Canc elled via OM: Order cancelled - Patient discharged Performed By: #### L 500.2500, L100.0500 ####[facility] [address] [place], [address] CBC-Complete Blood Cnt No Di ffon 03-22-2024 HCT Normal 37-47 [facility] Comment on above: Result Comment: Canc elled via OM: Order cancelled - Patient discharged Performed By: #### L 500.2500, L100.0500 ####[facility] [address] [place], [address] HGB Normal 12.0-15.0 [facility] Comment on above: Result Comment: Canc elled via OM: Order cancelled - Patient discharged Performed By: #### L 500.2500, L100.0500 ####[facility] [address] [place], [address] MCH Normal 27.0-32.0 [facility] Comment on above: Result Comment: Canc elled via OM: Order cancelled - Patient discharged Performed By: #### L 500.2500, L100.0500 ####[facility] [address] [place], [address] MCHC Normal 32-36 [facility] Comment on above: Result Comment: Canc elled via OM: Order cancelled - Patient discharged Performed By: #### L 500.2500, L100.0500 ####[facility] [address] [place], [address] MCV Normal 81-99 [facility] Comment on above: Result Comment: Canc elled via OM: Order cancelled - Patient discharged Performed By: #### L 500.2500, L100.0500 ####[facility] [address] [place], [address] PLT Normal 150-450 [facility] Comment on above: Result Comment: Canc elled via OM: Order cancelled - Patient discharged Performed By: #### L 500.2500, L100.0500 ####[facility] [address] [place], [address] RBC Normal 4.2-5.4 [facility] Comment on above: Result Comment: Canc elled via OM: Order cancelled - Patient discharged Performed By: #### L 500.2500, L100.0500 ####[facility] [address] [place], [address] RDW CV Normal 11.6-14.6 [facility] Comment on above: Result Comment: Canc elled via OM: Order cancelled - Patient discharged Performed By: #### L 500.2500, L100.0500 ####[facility] [address] [place], [address] RDW SD Normal 35.1-43.9 [facility] Comment on above: Result Comment: Canc elled via OM: Order cancelled - Patient discharged Performed By: #### L 500.2500, L100.0500 ####[facility] [address] [place], [address] WBC Normal 4.4-11.0 [facility] Comment on above: Result Comment: Canc elled via OM: Order cancelled - Patient discharged Performed By: #### L 500.2500, L100.0500 ####[facility] [address] [place], [address] Basic Metabolic Profile (BMP )on 03-21-2024 BUN/CRE 13.2 RATIO Normal 10-20 [facility] Comment on above: Performed By: #### L 500.2500, L100.0500 ####[facility] [address] [place], [address] CA,Total 10.0 mg/dL Normal 8.5-10.1 [facility] Comment on above: Performed By: #### L 500.2500, L100.0500 ####[facility] [address] [place], [address] Chloride [Moles/Vol] 110 mmol/L High 98-107 [facility] Comment on above: Performed By: #### L 500.2500, L100.0500 ####[facility] [address] [place], [address] CO2 [Moles/Vol] 25.0 mmol/L Normal 21.0-32.0 [facility] Comment on above: Performed By: #### L 500.2500, L100.0500 ####[facility] [address] [place], [address] Creatinine [Mass/Vol] 0.76 mg/dL Normal 0.55-1.02 [facility] Comment on above: Result Comment: The validity of the calculated GFR GFRAA in patients over70 years has not been determined. Clinical correlation isessential. Performed By: #### L 500.2500, L100.0500 ####[facility] [address] [place], [address] ECRCL 40.29 ml/min Normal [facility] Comment on above: Performed By: #### L 500.2500, L100.0500 ####[facility] [address] [place], [address] EST GFR - AA 94 mL/min Normal >60 [facility] Comment on above: Result Comment: Afri can [place]egales[place] GFR Calc Performed By: #### L 500.2500, L100.0500 ####[facility] [address] [place], [address] GAP 5 Normal 5-15 [facility] Comment on above: Performed By: #### L 500.2500, L100.0500 ####[facility] [address] [place], [address] GFR/1.73 sq M.predicted among non-blacks MDRD (S/P/Bld) [Vol rate/Area] 78 mL/min/{1.73_m2} Normal >60 [facility] Comment on above: Result Comment: Non- GFR Calc Performed By: #### L 500.2500, L100.0500 ####[facility] [address] [place], [address] Glucose [Mass/Vol] 98 mg/dL Normal 74-106 [facility] Comment on above: Performed By: #### L 500.2500, L100.0500 ####[facility] [address] [place], [address] Potassium [Moles/Vol] 3.9 mmol/L Normal 3.5-5.1 [facility] Comment on above: Performed By: #### L 500.2500, L100.0500 ####[facility] [address] [place], [address] Sodium [Moles/Vol] 140 mmol/L Normal 136-145 [facility] Comment on above: Performed By: #### L 500.2500, L100.0500 ####[facility] [address] [place], [address] Urea nitrogen [Mass/Vol] 10 mg/dL Normal 7-18 [facility] Comment on above: Performed By: #### L 500.2500, L100.0500 ####[facility] [address] [place], [address] CBC-Complete Blood Cnt No Di ffon 03-21-2024 Erythrocyte distribution width (RBC) [Ratio] 12.7 % Normal 11.6-14.6 [facility] Comment on above: Performed By: #### L 500.2500, L100.0500 ####[facility] [address] [place], [address] Hematocrit (Bld) [Volume fraction] 34.7 % Low 37-47 [facility] Comment on above: Performed By: #### L 500.2500, L100.0500 ####[facility] [address] [place], [address] Hemoglobin (Bld) [Mass/Vol] 11.8 g/dL Low 12.0-15.0 [facility] Comment on above: Performed By: #### L 500.2500, L100.0500 ####[facility] [address] [place], [address] MCH (RBC) [Entitic mass] 28.3 pg Normal 27.0-32.0 [facility] Comment on above: Performed By: #### L 500.2500, L100.0500 ####[facility] [address] [place], [address] MCHC (RBC) [Mass/Vol] 34.0 g/dL Normal 32-36 [facility] Comment on above: Performed By: #### L 500.2500, L100.0500 ####[facility] [address] [place], [address] MCV (RBC) [Entitic vol] 83.2 fL Normal 81-99 [facility] Comment on above: Performed By: #### L 500.2500, L100.0500 ####[facility] [address] [place], [address] Platelet mean volume (Bld) [Entitic vol] 9.1 fL Normal 6.2-12.0 [facility] Comment on above: Performed By: #### L 500.2500, L100.0500 ####[facility] [address] [place], [address] Platelets (Bld) [#/Vol] 296 10*3/uL Normal 150-450 [facility] Comment on above: Performed By: #### L 500.2500, L100.0500 ####[facility] [address] [place], [address] RBC (Bld) [#/Vol] 4.17 10*6/uL Low 4.2-5.4 [facility] Comment on above: Performed By: #### L 500.2500, L100.0500 ####[facility] [address] [place], [address] RDW SD 38.9 fl Normal 35.1-43.9 [facility] Comment on above: Performed By: #### L 500.2500, L100.0500 ####[facility] [address] [place], [address] WBC (Bld) [#/Vol] 7.3 10*3/uL Normal 4.4-11.0 [facility] Comment on above: Performed By: #### L 500.2500, L100.0500 ####[facility] [address] [place], [address] Discharge Instructionon 12-3 Discharge Instruction Normal [facility] Urine Cultureon 03-21-2024 URC Normal [facility] Comment on above: Performed By: #### M 100.2200 ####[facility] [address] [place], [address] CBC W/Diff, Automatedon 02-21 PATH REV Reviewed Normal [facility] Comment on above: Result Comment: Neut rophilic leukocytosis.Clinical correlation necessary.Ajay Ann M.D. 03/20/24 AMENDED REPORT 03/20/24 1531 PATH REV previously reported as: July Performed By: #### L 100.0100, L500.4050 ####[facility] [address] [place], [address] Absolute Lymph 2.65 X10 3/uL Normal 0.83-4.51 [facility] Comment on above: Performed By: #### L 100.0100, L500.4050 ####[facility] [address] [place], [address] Absolute Neut 6.5 X10 3/uL Normal 2.0-7.7 [facility] Comment on above: Performed By: #### L 100.0100, L500.4050 ####[facility] [address] [place], [address] Basophils/100 WBC (Bld) 0.4 % Normal 0-1 [facility] Comment on above: Performed By: #### L 100.0100, L500.4050 ####[facility] [address] [place], [address] Eosinophils/100 WBC (Bld) 1.4 % Normal 0-5 [facility] Comment on above: Performed By: #### L 100.0100, L500.4050 ####[facility] [address] [place], [address] Erythrocyte distribution width (RBC) [Ratio] 12.7 % Normal 11.6-14.6 [facility] Comment on above: Performed By: #### L 100.0100, L500.4050 ####[facility] [address] [place], [address] Hematocrit (Bld) [Volume fraction] 35.2 % Low 37-47 [facility] Comment on above: Performed By: #### L 100.0100, L500.4050 ####[facility] [address] [place], [address] Hemoglobin (Bld) [Mass/Vol] 11.8 g/dL Low 12.0-15.0 [facility] Comment on above: Performed By: #### L 100.0100, L500.4050 ####[facility] [address] [place], [address] IG% 0.400 Normal 0.0-0.9 [facility] Comment on above: Result Comment: IG% - Immature Granulocytes (promyelocytes, myelocytes andmetamyelocytes) > 1% indicates that a LEFT SHIFT is Present. Performed By: #### L 100.0100, L500.4050 ####[facility] [address] [place], [address] Lymphocytes/100 WBC (Bld) 26.1 % Normal 19-41 [facility] Comment on above: Performed By: #### L 100.0100, L500.4050 ####[facility] [address] [place], [address] MCH (RBC) [Entitic mass] 27.8 pg Normal 27.0-32.0 [facility] Comment on above: Performed By: #### L 100.0100, L500.4050 ####[facility] [address] [place], [address] MCHC (RBC) [Mass/Vol] 33.5 g/dL Normal 32-36 [facility] Comment on above: Performed By: #### L 100.0100, L500.4050 ####[facility] [address] [place], [address] MCV (RBC) [Entitic vol] 82.8 fL Normal 81-99 [facility] Comment on above: Performed By: #### L 100.0100, L500.4050 ####[facility] [address] [place], [address] Monocytes/100 WBC (Bld) 8.3 % Normal 0-10 [facility] Comment on above: Performed By: #### L 100.0100, L500.4050 ####[facility] [address] [place], [address] Neutrophils/100 WBC (Bld) 63.4 % Normal 47-70 [facility] Comment on above: Performed By: #### L 100.0100, L500.4050 ####[facility] [address] [place], [address] Nucleated RBC (Bld) [#/Vol] 0 10*3/uL Normal 0-5 [facility] Comment on above: Performed By: #### L 100.0100, L500.4050 ####[facility] [address] [place], [address] Platelet mean volume (Bld) [Entitic vol] 9.2 fL Normal 6.2-12.0 [facility] Comment on above: Performed By: #### L 100.0100, L500.4050 ####[facility] [address] [place], [address] Platelets (Bld) [#/Vol] 289 10*3/uL Normal 150-450 [facility] Comment on above: Performed By: #### L 100.0100, L500.4050 ####[facility] [address] [place], [address] RBC (Bld) [#/Vol] 4.25 10*6/uL Normal 4.2-5.4 [facility] Comment on above: Performed By: #### L 100.0100, L500.4050 ####[facility] [address] [place], [address] RDW SD 38.4 fl Normal 35.1-43.9 [facility] Comment on above: Performed By: #### L 100.0100, L500.4050 ####[facility] [address] [place], [address] WBC (Bld) [#/Vol] 10.2 10*3/uL Normal 4.4-11.0 [facility] Comment on above: Performed By: #### L 100.0100, L500.4050 ####[facility] [address] [place], [address] Comprehensive Metabolic Prof [facility] 03-20-2024 Albumin [Mass/Vol] 3.1 g/dL Low 3.2-5.0 [facility] Comment on above: Performed By: #### L 100.0100, L500.4050 ####[facility] [address] [place], [address] Albumin/Globulin [Mass ratio] 0.8 {ratio} Low 0.9-2.4 [facility] Comment on above: Performed By: #### L 100.0100, L500.4050 ####[facility] [address] [place], [address] ALK P 54 U/L Normal 45-117 [facility] Comment on above: Performed By: #### L 100.0100, L500.4050 ####[facility] [address] [place], [address] ALT [Catalytic activity/Vol] 11 U/L Low 13-56 [facility] Comment on above: Performed By: #### L 100.0100, L500.4050 ####[facility] [address] [place], [address] AST [Catalytic activity/Vol] 10 U/L Low 15-37 [facility] Comment on above: Performed By: #### L 100.0100, L500.4050 ####[facility] [address] [place], [address] Bilirubin [Mass/Vol] 0.40 mg/dL Normal 0.20-1.00 [facility] Comment on above: Result Comment: For patients on eltrombopag therapy, use of Dimension [place] TBIL is not recommended. Performed By: #### L 100.0100, L500.4050 ####[facility] [address] [place], [address] BUN/CRE 13.0 RATIO Normal 10-20 [facility] Comment on above: Performed By: #### L 100.0100, L500.4050 ####[facility] [address] [place], [address] CA,Total 10.1 mg/dL Normal 8.5-10.1 [facility] Comment on above: Performed By: #### L 100.0100, L500.4050 ####[facility] [address] [place], [address] Chloride [Moles/Vol] 112 mmol/L High 98-107 [facility] Comment on above: Performed By: #### L 100.0100, L500.4050 ####[facility] [address] [place], [address] CO2 [Moles/Vol] 26.0 mmol/L Normal 21.0-32.0 [facility] Comment on above: Performed By: #### L 100.0100, L500.4050 ####[facility] [address] [place], [address] Creatinine [Mass/Vol] 0.77 mg/dL Normal 0.55-1.02 [facility] Comment on above: Result Comment: The validity of the calculated GFR GFRAA in patients over70 years has not been determined. Clinical correlation isessential. Performed By: #### L 100.0100, L500.4050 ####[facility] [address] [place], [address] ECRCL 43.58 ml/min Normal [facility] Comment on above: Performed By: #### L 100.0100, L500.4050 ####[facility] [address] [place], [address] EST GFR - AA 93 mL/min Normal >60 [facility] Comment on above: Result Comment: Afri can [place] GFR Calc Performed By: #### L 100.0100, L500.4050 ####[facility] [address] [place], [address] GAP 1 Low 5-15 [facility] Comment on above: Performed By: #### L 100.0100, L500.4050 ####[facility] [address] [place], [address] GFR/1.73 sq M.predicted among non-blacks MDRD (S/P/Bld) [Vol rate/Area] 77 mL/min/{1.73_m2} Normal >60 [facility] Comment on above: Result Comment: Non- GFR Calc Performed By: #### L 100.0100, L500.4050 ####[facility] [address] [place], [address] Globulin (S) [Mass/Vol] 3.9 g/dL Normal 2.2-4.2 [facility] Comment on above: Performed By: #### L 100.0100, L500.4050 ####[facility] [address] [place], [address] Glucose [Mass/Vol] 109 mg/dL High 74-106 [facility] Comment on above: Result Comment: Fast ing Glucose result from 100 to 125 mg/dLsuggests IMPAIRED HOMEOSTASIS per A.D.A. criteria. Performed By: #### L 100.0100, L500.4050 ####[facility] [address] [place], [address] Potassium [Moles/Vol] 3.8 mmol/L Normal 3.5-5.1 [facility] Comment on above: Performed By: #### L 100.0100, L500.4050 ####[facility] [address] [place], [address] Sodium [Moles/Vol] 139 mmol/L Normal 136-145 [facility] Comment on above: Performed By: #### L 100.0100, L500.4050 ####[facility] [address] [place], [address] T PROT 7.0 g/dL Normal 6.4-8.2 [facility] Comment on above: Performed By: #### L 100.0100, L500.4050 ####[facility] [address] [place], [address] Urea nitrogen [Mass/Vol] 10 mg/dL Normal 7-18 [facility] Comment on above: Performed By: #### L 100.0100, L500.4050 ####[facility] [address] [place], [address] Consultation - Infectious Dx on 03-20-2024 Consultation - Infectious Dx Normal [facility] CBC W/Diff, Automatedon - Absolute Lymph 2.73 X10 3/uL Normal 0.83-4.51 [facility] Comment on above: Performed By: #### L 500.4050, L100.0100 ####[facility] [address] [place], [address] Absolute Neut 6.5 X10 3/uL Normal 2.0-7.7 [facility] Comment on above: Performed By: #### L 500.4050, L100.0100 ####[facility] [address] [place], [address] Basophils/100 WBC (Bld) 0.3 % Normal 0-1 [facility] Comment on above: Performed By: #### L 500.4050, L100.0100 ####[facility] [address] [place], [address] Eosinophils/100 WBC (Bld) 0.9 % Normal 0-5 [facility] Comment on above: Performed By: #### L 500.4050, L100.0100 ####[facility] [address] [place], [address] Erythrocyte distribution width (RBC) [Ratio] 12.8 % Normal 11.6-14.6 [facility] Comment on above: Performed By: #### L 500.4050, L100.0100 ####[facility] [address] [place], [address] Hematocrit (Bld) [Volume fraction] 37.5 % Normal 37-47 [facility] Comment on above: Performed By: #### L 500.4050, L100.0100 ####[facility] [address] [place], [address] Hemoglobin (Bld) [Mass/Vol] 12.4 g/dL Normal 12.0-15.0 [facility] Comment on above: Performed By: #### L 500.4050, L100.0100 ####[facility] [address] [place], [address] IG% 0.400 Normal 0.0-0.9 [facility] Comment on above: Result Comment: IG% - Immature Granulocytes (promyelocytes, myelocytes andmetamyelocytes) > 1% indicates that a LEFT SHIFT is Present. Performed By: #### L 500.4050, L100.0100 ####[facility] [address] [place], [address] Lymphocytes/100 WBC (Bld) 27.2 % Normal 19-41 [facility] Comment on above: Performed By: #### L 500.4050, L100.0100 ####[facility] [address] [place], [address] MCH (RBC) [Entitic mass] 27.8 pg Normal 27.0-32.0 [facility] Comment on above: Performed By: #### L 500.4050, L100.0100 ####[facility] [address] [place], [address] MCHC (RBC) [Mass/Vol] 33.1 g/dL Normal 32-36 [facility] Comment on above: Performed By: #### L 500.4050, L100.0100 ####[facility] [address] [place], [address] MCV (RBC) [Entitic vol] 84.1 fL Normal 81-99 [facility] Comment on above: Performed By: #### L 500.4050, L100.0100 ####[facility] [address] [place], [address] Monocytes/100 WBC (Bld) 7.0 % Normal 0-10 [facility] Comment on above: Performed By: #### L 500.4050, L100.0100 ####[facility] [address] [place], [address] Neutrophils/100 WBC (Bld) 64.2 % Normal 47-70 [facility] Comment on above: Performed By: #### L 500.4050, L100.0100 ####[facility] [address] [place], [address] Nucleated RBC (Bld) [#/Vol] 0 10*3/uL Normal 0-5 [facility] Comment on above: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 Comment: Anny hong Type: BLOOD SPECIMEN Ordering Facility: [facility] Address: [address] [place] [address] Result Comment: The [place] [employer] (ADA) provides guidance for cutoff [...] Standards of Medical Care in Diabetes 2016, [place] [employer]. Diabetes Care. 2016.39(Suppl 1). Results may be falsely elevated after the administration of Sulfapyridine. Results may be falsely depressed after the administration of Sulfasalazine. Performed By: #### 5 7021-8, 4537-7 #### [facility] CLIA [id number] [address] [place] [address] [place] Potassium [Moles/Vol] 4.0 mmol/L Normal 3.5-5.1 [facility] Comment on above: Order Comment: Anny hong Type: BLOOD SPECIMEN Ordering Facility: [facility] Address: [address] [place] [address] Performed By: #### 5 7021-8, 453-7 #### [facility] CLIA [id number] [address] [place] [address] [place] Protein [Mass/Vol] 6.9 g/dL Normal 6.0-8.5 [facility] Comment on above: Order Comment: Anny hong Type: BLOOD SPECIMEN Ordering Facility: [facility] Address: [address] [place] [address] Performed By: #### 5 7021-8, 4537-7 #### [facility] CLIA [id number] [address] [place] [address] [place] Sodium [Moles/Vol] 141 mmol/L Normal 136-145 [facility] Comment on above: Order Comment: Anny hong Type: BLOOD SPECIMEN Ordering Facility: [facility] Address: [address] [place] [address] Performed By: #### 5 7021-8, 4537-7 #### [facility] CLIA [id number] [address] [place] [address] [place] Urea nitrogen [Mass/Vol] 13 mg/dL Normal 7-26 [facility] Comment on above: Order Comment: Speci men Type: BLOOD SPECIMEN Ordering Facility: [facility] Address: [address] [place] [address] Performed By: #### 5 7021-8, 4537-7 #### [facility] CLIA [id number] [address] [place] [address] [place] HISTORY PHYSICALon HISTORY PHYSICAL HNO ID: [id number] Author: RIANNA PATINO MD Service: Hospital Medicine [...] who presents as a direct admission from [facility] with a diagnosis of acute osteomyelitis [...] No edema. (more content not included)... Normal [facility] Lactate (Bld) [Moles/Vol]on 01-27-2024 Lactate [Moles/Vol] 1.0 mmol/L Normal 0.4-2.0 [facility] Comment on above: Order Comment: Speci gely Type: BLOOD SPECIMEN Ordering Facility: [facility] Address: [address] [place], [place] [address] Performed By: #### 5 7021-8, 4537-7 #### [facility] CLIA [id number] [address] [place] [address] [place] Magnesium SerPl-mCncon 01-26 Magnesium [Mass/Vol] 1.9 mg/dL Normal 1.6-2.6 [facility] Comment on above: Order Comment: Anny hong Type: BLOOD SPECIMEN Ordering Facility: [facility] Address: [address] [place] [address] Performed By: #### 5 7021-8, 4537-7 #### [facility] CLIA [id number] [address] [place], [place] [id number] [place] 12 Lead EKGon 01-26-2024 12 Lead EKG Normal [facility] Basic Metabolic Profile (BMP )on 01-26-2024 BUN/CRE 21.7 RATIO High 10-20 [facility] Comment on above: Order Comment: 'TROP ' Serial specimen #1, #2 or #3: 1 Performed By: #### L 500.2500, L100.0100, L501.4020 ####[facility] [address] [place], [address] CA,Total 10.5 mg/dL High 8.5-10.1 [facility] Comment on above: Order Comment: 'TROP ' Serial specimen #1, #2 or #3: 1 Performed By: #### L 500.2500, L100.0100, L501.4020 ####[facility] [address] [place], [address] Chloride [Moles/Vol] 107 mmol/L Normal 98-107 [facility] Comment on above: Order Comment: 'TROP ' Serial specimen #1, #2 or #3: 1 Performed By: #### L 500.2500, L100.0100, L501.4020 ####[facility] [address] [place], [address] CO2 [Moles/Vol] 22.0 mmol/L Normal 21.0-32.0 [facility] Comment on above: Order Comment: 'TROP ' Serial specimen #1, #2 or #3: 1 Performed By: #### L 500.2500, L100.0100, L501.4020 ####[facility] [address] [place], [address] Creatinine [Mass/Vol] 0.83 mg/dL Normal 0.55-1.02 [facility] Comment on above: Order Comment: 'TROP ' Serial specimen #1, #2 or #3: 1 Result Comment: The validity of the calculated GFR GFRAA in patients over70 years has not been determined. Clinical correlation isessential. Performed By: #### L 500.2500, L100.0100, L501.4020 ####[facility] [address] [place], [address] EST GFR - AA 85 mL/min Normal >60 [facility] Comment on above: Order Comment: 'TROP ' Serial specimen #1, #2 or #3: 1 Result Comment: Afri can [place] GFR Calc Performed By: #### L 500.2500, L100.0100, L501.4020 ####[facility] [address] [place], [address] GAP 8 Normal 5-15 [facility] Comment on above: Order Comment: 'TROP ' Serial specimen #1, #2 or #3: 1 Performed By: #### L 500.2500, L100.0100, L501.4020 ####[facility] [address] [place], [address] GFR/1.73 sq M.predicted among non-blacks MDRD (S/P/Bld) [Vol rate/Area] 70 mL/min/{1.73_m2} Normal >60 [facility] Comment on above: Order Comment: 'TROP ' Serial specimen #1, #2 or #3: 1 Result Comment: Non- GFR Calc Performed By: #### L 500.2500, L100.0100, L501.4020 ####[facility] [address] [place], [address] Glucose [Mass/Vol] 108 mg/dL High 74-106 [facility] Comment on above: Order Comment: 'TROP ' Serial specimen #1, #2 or #3: 1 Result Comment: Fast ing Glucose result from 100 to 125 mg/dLsuggests IMPAIRED HOMEOSTASIS per A.D.A. criteria. Performed By: #### L 500.2500, L100.0100, L501.4020 ####[facility] [address] [place], [address] Potassium [Moles/Vol] 4.0 mmol/L Normal 3.5-5.1 [facility] Comment on above: Order Comment: 'TROP ' Serial specimen #1, #2 or #3: 1 Performed By: #### L 500.2500, L100.0100, L501.4020 ####[facility] [address] [place], [address] Sodium [Moles/Vol] 136 mmol/L Normal 136-145 [facility] Comment on above: Order Comment: 'TROP ' Serial specimen #1, #2 or #3: 1 Performed By: #### L 500.2500, L100.0100, L501.4020 ####[facility] [address] [place], [address] Urea nitrogen [Mass/Vol] 18 mg/dL Normal 7-18 [facility] Comment on above: Order Comment: 'TROP ' Serial specimen #1, #2 or #3: 1 Performed By: #### L 500.2500, L100.0100, L501.4020 ####[facility] [address] [place], [address] Brain/Head without Contrasto n --2023 Brain/Head without Contrast Normal [facility] CBC W/Diff, Automatedon 11-0 -2023 Absolute Lymph 2.70 X10 3/uL Normal 0.83-4.51 [facility] Comment on above: Performed By: #### L 500.2500, L100.0100, L501.4020 ####[facility] [address] [place], [address] Absolute Neut 12.8 X10 3/uL High 2.0-7.7 [facility] Comment on above: Performed By: #### L 500.2500, L100.0100, L501.4020 ####[facility] [address] [place], [address] Basophils/100 WBC (Bld) 0.3 % Normal 0-1 [facility] Comment on above: Performed By: #### L 500.2500, L100.0100, L501.4020 ####[facility] [address] [place], [address] Eosinophils/100 WBC (Bld) 0.6 % Normal 0-5 [facility] Comment on above: Performed By: #### L 500.2500, L100.0100, L501.4020 ####[facility] [address] [place], [address] Erythrocyte distribution width (RBC) [Ratio] 12.8 % Normal 11.6-14.6 [facility] Comment on above: Performed By: #### L 500.2500, L100.0100, L501.4020 ####[facility] [address] [place], [address] Hematocrit (Bld) [Volume fraction] 39.7 % Normal 37-47 [facility] Comment on above: Performed By: #### L 500.2500, L100.0100, L501.4020 ####[facility] [address] [place], [address] Hemoglobin (Bld) [Mass/Vol] 13.6 g/dL Normal 12.0-15.0 [facility] Comment on above: Performed By: #### L 500.2500, L100.0100, L501.4020 ####[facility] [address] [place], [address] IG% 0.500 Normal 0.0-0.9 [facility] Comment on above: Result Comment: IG% - Immature Granulocytes (promyelocytes, myelocytes andmetamyelocytes) > 1% indicates that a LEFT SHIFT is Present. Performed By: #### L 500.2500, L100.0100, L501.4020 ####[facility] [address] [place], [address] Lymphocytes/100 WBC (Bld) 15.9 % Low 19-41 [facility] Comment on above: Performed By: #### L 500.2500, L100.0100, L501.4020 ####[facility] [address] [place], [address] MCH (RBC) [Entitic mass] 28.4 pg Normal 27.0-32.0 [facility] Comment on above: Performed By: #### L 500.2500, L100.0100, L501.4020 ####[facility] [address] [place], [address] MCHC (RBC) [Mass/Vol] 34.3 g/dL Normal 32-36 [facility] Comment on above: Performed By: #### L 500.2500, L100.0100, L501.4020 ####[facility] [address] [place], [address] MCV (RBC) [Entitic vol] 82.9 fL Normal 81-99 [facility] Comment on above: Performed By: #### L 500.2500, L100.0100, L501.4020 ####[facility] [address] [place], [address] Monocytes/100 WBC (Bld) 7.4 % Normal 0-10 [facility] Comment on above: Performed By: #### L 500.2500, L100.0100, L501.4020 ####[facility] [address] [place], [address] Neutrophils/100 WBC (Bld) 75.3 % High 47-70 [facility] Comment on above: Performed By: #### L 500.2500, L100.0100, L501.4020 ####[facility] [address] [place], [address] Nucleated RBC (Bld) [#/Vol] 0 10*3/uL Normal 0-5 [facility] Comment on above: Performed By: #### L 500.2500, L100.0100, L501.4020 ####[facility] [address] [place], [address] Platelet mean volume (Bld) [Entitic vol] 8.9 fL Normal 6.2-12.0 [facility] Comment on above: Performed By: #### L 500.2500, L100.0100, L501.4020 ####[facility] [address] [place], [address] Platelets (Bld) [#/Vol] 334 10*3/uL Normal 150-450 [facility] Comment on above: Performed By: #### L 500.2500, L100.0100, L501.4020 ####[facility] [address] [place], [address] RBC (Bld) [#/Vol] 4.79 10*6/uL Normal 4.2-5.4 [facility] Comment on above: Performed By: #### L 500.2500, L100.0100, L501.4020 ####[facility] [address] [place], [address] RDW SD 38.7 fl Normal 35.1-43.9 [facility] Comment on above: Performed By: #### L 500.2500, L100.0100, L501.4020 ####[facility] [address] [place], [address] WBC (Bld) [#/Vol] 17.0 10*3/uL High 4.4-11.0 [facility] Comment on above: Performed By: #### L 500.2500, L100.0100, L501.4020 ####[facility] [address] [place], [address] Chest 1 View (Portable)on Chest 1 View (Portable) Normal [facility] Emergency Department Summary on 01-26-2024 Emergency Department Summary Normal [facility] L501.4020on 01-26-2024 TROPONIN-I HS 6 pg/mL Normal 3.0-54.0 [facility] Comment on above: Order Comment: 'TROP ' Serial specimen #1, #2 or #3: 1 Result Comment: Cora reece Note: New Test Units and Gender Specific Reference Ranges. For more information see Policy Stat Procedure [place] High Sensitivity Troponin (TNIH) and attachments. Performed By: #### L 500.2500, L100.0100, L501.4020 ####[facility] [address] [place], [address] Lactic Acidon 01-26-2024 Lactate [Moles/Vol] 1.1 mmol/L Normal 0.4-1.9 [facility] Comment on above: Order Comment: Y Performed By: #### L 503.6005 ####[facility] [address] [facility] [address] Spine Lumbar W/WO Contraston 01-26-2024 Spine Lumbar W/WO Contrast Normal [facility] Spine Lumbar without Contras ton 01-26-2024 Spine Lumbar without Contrast Normal [facility] Urinalysis, Completeon 01-25 BACTERIA 4+ /hpf Normal None Seen [facility] Comment on above: Order Comment: Micro scopic field is filled. Other elements may beobscured.SEPTIC TECHNICIAN TO SPECIFY Performed By: #### L 400.0001 ####[facility] [address] [facility] [address] WBC >100 SEEN Normal 0-5 [facility] Comment on above: Order Comment: Micro scopic field is filled. Other elements may beobscured.SEPTIC TECHNICIAN TO SPECIFY Performed By: #### L 400.0001 ####[facility] [address] [facility] [address] BILIRUBIN URINE Negative Normal Negative [facility] Comment on above: Order Comment: Micro scopic field is filled. Other elements may beobscured.SEPTIC TECHNICIAN TO SPECIFY Performed By: #### L 400.0001 ####[facility] [address] [place], [address] Clarity (U) Cloudy Normal Clear [facility] Comment on above: Order Comment: Micro scopic field is filled. Other elements may beobscured.SEPTIC TECHNICIAN TO SPECIFY Performed By: #### L 400.0001 ####[facility] [address] [place], [address] Color (U) Yellow Normal Yellow [facility] Comment on above: Order Comment: Micro scopic field is filled. Other elements may beobscured.SEPTIC TECHNICIAN TO SPECIFY Performed By: #### L 400.0001 ####[facility] [address] [place] [address] GLUCOSE, UR Normal Normal Normal [facility] Comment on above: Order Comment: Micro scopic field is filled. Other elements may beobscured.SEPTIC TECHNICIAN TO SPECIFY Performed By: #### L 400.0001 ####[facility] [address] [place] [address] KETONE UR Negative Normal Negative [facility] Comment on above: Order Comment: Micro scopic field is filled. Other elements may beobscured.SEPTIC TECHNICIAN TO SPECIFY Performed By: #### L 400.0001 ####[facility] [address] [place], [place], [phone] LEUK ESTERASE 500 /ul Abnormal Negative [facility] Comment on above: Order Comment: Micro scopic field is filled. Other elements may beobscured.SEPTIC TECHNICIAN TO SPECIFY Performed By: #### L 400.0001 ####[facility] [address] [place], [place], [phone] Nitrite Ql (U) Positive Abnormal Negative [facility] Comment on above: Order Comment: Micro scopic field is filled. Other elements may beobscured.SEPTIC TECHNICIAN TO SPECIFY Performed By: #### L 400.0001 ####[facility] [address] [place], [address] OCCULT BLOOD-UR 150 /ul Abnormal Negative [facility] Comment on above: Order Comment: Micro scopic field is filled. Other elements may beobscured.SEPTIC TECHNICIAN TO SPECIFY Performed By: #### L 400.0001 ####[facility] [address] [place], [address] pH UR 7.0 Normal 5.0 - 8.0 [facility] Comment on above: Order Comment: Micro scopic field is filled. Other elements may beobscured.SEPTIC TECHNICIAN TO SPECIFY Performed By: #### L 400.0001 ####[facility] [address] [place], [address] PROT DIPSTX 100 mg/dl Abnormal Negative [facility] Comment on above: Order Comment: Micro scopic field is filled. Other elements may beobscured.SEPTIC TECHNICIAN TO SPECIFY Performed By: #### L 400.0001 ####[facility] [address] [place], [address] SP.GR. DIPSTX 1.010 Normal 1.002-1.03 0 [facility] Comment on above: Order Comment: Micro scopic field is filled. Other elements may beobscured.SEPTIC TECHNICIAN TO SPECIFY Performed By: #### L 400.0001 ####[facility] [address] [place], [address] UROBILI Normal Normal Normal [facility] Comment on above: Order Comment: Micro scopic field is filled. Other elements may beobscured.SEPTIC TECHNICIAN TO SPECIFY Performed By: #### L 400.0001 ####[facility] [address] [place], [address] EPI,SQUAMOUS 0 SEEN Normal 5-10 [facility] Comment on above: Order Comment: Micro scopic field is filled. Other elements may beobscured.SEPTIC TECHNICIAN TO SPECIFY Performed By: #### L 400.0001 ####[facility] [address] [place], [address] Mucus Ql (Urine sed) 0 SEEN Normal [facility] Comment on above: Order Comment: Micro scopic field is filled. Other elements may beobscured.SEPTIC TECHNICIAN TO SPECIFY Performed By: #### L 400.0001 ####[facility] [address] [place], [address] RBC 0 SEEN Normal 0-5 [facility] Comment on above: Order Comment: Micro scopic field is filled. Other elements may beobscured.SEPTIC TECHNICIAN TO SPECIFY Performed By: #### L 400.0001 ####[facility] [address] [place], [address] Re-Evaluation - PT (1)on Re-Evaluation - PT (1) Normal [facility] SP/HP.SPREEVon 11-26-2023 SP/HP.SPREEV Normal [facility] Re-Evaluation - PT (1)on Re-Evaluation - PT (1) Normal [facility] .Auto Diffon 09-09-2023 Basophil, Absolute 0.1 10 3/mcL Normal 0.0-0.2 [facility] ([place]) Comment on above: Performed By: #### E SR, CBC, ADJULISSA, ANEU #### [address] [address] Basophils/100 WBC (Bld) 0.9 % Normal 0.0-2.5 [facility] ([place]) Comment on above: Performed By: #### E SR, CBC, ADIFF, ANEU #### [address] [address] Eosinophil, Absolute 0.1 10 3/mcL Normal 0.0-0.4 [facility] ([place]) Comment on above: Performed By: #### E SR, CBC, LORELEI, ANEU #### [address] [address] Eosinophils/100 WBC (Bld) 0.8 % Normal 0.0-7.0 [facility] ([place]) Comment on above: Performed By: #### E SR, CBC, ADIFF, ANEU #### [address] [address] Lymphocyte, Absolute 2.5 10 3/mcL Normal 0.8-3.9 [facility] ([place]) Comment on above: Performed By: #### E SR, CBC, ADIFF, ANEU #### [address] [address] Lymphocytes/100 WBC (Bld) 22.8 % Normal 10.0-50.0 [facility] ([place]) Comment on above: Performed By: #### E SR, CBC, ADIFF, ANEU #### [address] [address] Monocyte, Absolute 0.7 10 3/mcL Normal 0.2-1.0 [facility] ([place]) Comment on above: Performed By: #### E SR, CBC, ADIFF, ANEU #### [address] [address] Monocytes/100 WBC (Bld) 6.0 % Normal 1.7-13.0 [facility] ([place]) Comment on above: Performed By: #### E SR, CBC, ADIFF, ANEU #### [address] [address] Neutrophils/100 WBC (Bld) 69.5 % Normal 37.0-80.0 [facility] ([place]) Comment on above: Performed By: #### E SR, CBC, ADIFF, ANEU #### [address] [address] .NEUABSon 09-09-2023 Neutrophil, Absolute 7.8 10 3/mcL High 2.9-6.2 [facility] ([place]) Comment on above: Performed By: #### E SR, CBC, ADIFF, ANEU #### [address] [address] CBCon 09-09-2023 Erythrocyte distribution width (RBC) [Ratio] 17.4 % High 11.5-14.5 [facility] ([place]) Comment on above: Performed By: #### E SR, CBC, ADIFF, ANEU #### [address] [address] Hematocrit (Bld) [Volume fraction] 40.1 % Normal 37.0-47.0 [facility] ([place]) Comment on above: Performed By: #### Ysabel SR, CBCLORELEI, ANEU #### [address] [address] Hgb 13.1 G/dL Normal 12.0-16.0 [facility] ([place]) Comment on above: Performed By: #### E SR, CBC, LORELEI, ANEU #### [address] [address] MCH (RBC) [Entitic mass] 25.6 pg Low 27.0-31.2 [facility] ([place]) Comment on above: Performed By: #### E SR, CBC, LORELEI, ANEU #### [address] [address] MCHC 32.6 G/dL Low 33.0-37.0 [facility] ([place]) Comment on above: Performed By: #### E SR, CBC, ADJULISSA, ANEU #### [address] [address] MCV (RBC) [Entitic vol] 78.4 fL Low 80.0-94.0 [facility] ([place]) Comment on above: Performed By: #### E SR, CBC, LORELEI, ANEU #### [address] [address] Platelet 350 10 3/mcL Normal 130-400 [facility] ([place]) Comment on above: Performed By: #### E SR, CBC, ADJULISSA, ANEU #### [address] [address] Platelet mean volume (Bld) [Entitic vol] 7.8 fL Normal 7.4-10.4 [facility] ([place]) Comment on above: Performed By: #### E SR, CBC, ADIFF, ANEU #### [address] [address] RBC 5.11 10 6/mcL Normal 4.20-5.40 [facility] ([place]) Comment on above: Performed By: #### E SR, CBC, ADIFF, ANEU #### [facility] [address] [place], [place] [address] WBC 11.1 10 3/mcL High 4.6-10.8 [facility] ([place]) Comment on above: Performed By: #### E SR, CBC, ADIFF, ANEU #### [facility] [place] [address] [place], [place] [address] ESRon 09-09-2023 Erythrocyte Sed Rate 34 mm/hr High 0-30 [facility] ([place]) Comment on above: Performed By: #### E SR, CBC, ADIFF, ANEU #### [place] [address] [place], [place] [address] LABORATORYOrdered By: SYSTEM SYSTEM on 09-09-2023 Basophil, [...] Man Heme SS SP/HP.SP.Bhaskar 09-03-2023 SP/HP.SP.EV Normal [facility] Inital Evaluation (1) - PTon 08-27-2023 Inital Evaluation (1) - PT Normal [facility] Basic Metabolic Profile (BMP )on 07-27-2023 BUN/CRE 21.7 RATIO High 10-20 [facility] Comment on above: Performed By: #### L 501.8820, L101.9900, L100.0500, L500.2500 ####[facility] [address] [place], [address] CA,Total 9.8 mg/dL Normal 8.5-10.1 [facility] Comment on above: Performed By: #### L 501.8820, L101.9900, L100.0500, L500.2500 ####[facility] [address] [place], [address] Chloride [Moles/Vol] 109 mmol/L High 98-107 [facility] Comment on above: Performed By: #### L 501.8820, L101.9900, L100.0500, L500.2500 ####[facility] [address] [place], [address] CO2 [Moles/Vol] 27.0 mmol/L Normal 21.0-32.0 [facility] Comment on above: Performed By: #### L 501.8820, L101.9900, L100.0500, L500.2500 ####[facility] [address] [place], [address] Creatinine [Mass/Vol] 0.88 mg/dL Normal 0.55-1.02 [facility] Comment on above: Result Comment: The validity of the calculated GFR GFRAA in patients over70 years has not been determined. Clinical correlation isessential. Performed By: #### L 501.8820, L101.9900, L100.0500, L500.2500 ####[facility] [address] [place], [address] EST GFR - AA 80 mL/min Normal >60 [facility] Comment on above: Result Comment: Afri can Senegalese GFR Calc Performed By: #### L 501.8820, L101.9900, L100.0500, L500.2500 ####[facility] [address] [place], [address] GAP 3 Low 5-15 [facility] Comment on above: Performed By: #### L 501.8820, L101.9900, L100.0500, L500.2500 ####[facility] [address] [place], [address] GFR/1.73 sq M.predicted among non-blacks MDRD (S/P/Bld) [Vol rate/Area] 66 mL/min/{1.73_m2} Normal >60 [facility] Comment on above: Result Comment: Non- GFR Calc Performed By: #### L 501.8820, L101.9900, L100.0500, L500.2500 ####[facility] [address] [place], [address] Glucose [Mass/Vol] 113 mg/dL High 74-106 [facility] Comment on above: Result Comment: Fast ing Glucose result from 100 to 125 mg/dLsuggests IMPAIRED HOMEOSTASIS per A.D.A. criteria. Performed By: #### L 501.8820, L101.9900, L100.0500, L500.2500 ####[facility] [address] [place], [address] Potassium [Moles/Vol] 3.9 mmol/L Normal 3.5-5.1 [facility] Comment on above: Performed By: #### L 501.8820, L101.9900, L100.0500, L500.2500 ####[facility] [address] [place], [address] Sodium [Moles/Vol] 139 mmol/L Normal 136-145 [facility] Comment on above: Performed By: #### L 501.8820, L101.9900, L100.0500, L500.2500 ####[facility] [address] [place], [address] Urea nitrogen [Mass/Vol] 19 mg/dL High 7-18 [facility] Comment on above: Performed By: #### L 501.8820, L101.9900, L100.0500, L500.2500 ####[facility] [address] [place], [address] Basophil percentageOrdered B y: Sulma Alexander on 07-27-2023 Chloride [Moles/Vol] 109 mmol/L 98-107 [facility] Glucose [Mass/Vol] 113 mg/dL 74-106 [facility] Comment on above: Fasting Glucose resu lt from 100 to 125 mg/dL suggests IMPAIRED HOMEOSTASIS per A.D.A. criteria. Hemoglobin (Bld) [Mass/Vol] 10.1 g/dL 12.0-15.0 [facility] Potassium [Moles/Vol] 3.9 mmol/L 3.5-5.1 [facility] Sodium [Moles/Vol] 139 mmol/L 136-145 [facility] WBC (Bld) [#/Vol] 10.1 10*3/uL 4.4-11.0 [facility] CBC-Complete Blood Cnt No Di ffon 07-27-2023 Erythrocyte distribution width (RBC) [Ratio] 15.9 % High 11.6-14.6 [facility] Comment on above: Performed By: #### L 501.8820, L101.9900, L100.0500, L500.2500 ####[facility] [address] [place], [address] Hematocrit (Bld) [Volume fraction] 33.6 % Low 37-47 [facility] Comment on above: Performed By: #### L 501.8820, L101.9900, L100.0500, L500.2500 ####[facility] [address] [place], [address] Hemoglobin (Bld) [Mass/Vol] 10.1 g/dL Low 12.0-15.0 [facility] Comment on above: Performed By: #### L 501.8820, L101.9900, L100.0500, L500.2500 ####[facility] [address] [place], [address] MCH (RBC) [Entitic mass] 24.0 pg Low 27.0-32.0 [facility] Comment on above: Performed By: #### L 501.8820, L101.9900, L100.0500, L500.2500 ####[facility] [address] [place], [address] MCHC (RBC) [Mass/Vol] 30.1 g/dL Low 32-36 [facility] Comment on above: Performed By: #### L 501.8820, L101.9900, L100.0500, L500.2500 ####[facility] [address] [place], [address] MCV (RBC) [Entitic vol] 79.8 fL Low 81-99 [facility] Comment on above: Performed By: #### L 501.8820, L101.9900, L100.0500, L500.2500 ####[facility] [address] [place], [address] Platelet mean volume (Bld) [Entitic vol] 9.3 fL Normal 6.2-12.0 [facility] Comment on above: Performed By: #### L 501.8820, L101.9900, L100.0500, L500.2500 ####[facility] [address] [place], [address] Platelets (Bld) [#/Vol] 347 10*3/uL Normal 150-450 [facility] Comment on above: Performed By: #### L 501.8820, L101.9900, L100.0500, L500.2500 ####[facility] [address] [place], [address] RBC (Bld) [#/Vol] 4.21 10*6/uL Normal 4.2-5.4 [facility] Comment on above: Performed By: #### L 501.8820, L101.9900, L100.0500, L500.2500 ####[facility] [address] [place], [address] RDW SD 45.4 fl High 35.1-43.9 [facility] Comment on above: Performed By: #### L 501.8820, L101.9900, L100.0500, L500.2500 ####[facility] [address] [place], [address] WBC (Bld) [#/Vol] 10.1 10*3/uL Normal 4.4-11.0 [facility] Comment on above: Performed By: #### L 501.8820, L101.9900, L100.0500, L500.2500 ####[facility] [address] [place], [place], [address] Determination of erythrocyte mean corpuscular volume (MCV)Ordered By: Sulma Alexander on 07-27-2023 MCV (RBC) [Entitic vol] 79.8 fL 81-99 [facility] Erythrocyte Sed Rateon 07-26 SED RATE 23 mm/hr Normal 0-30 [facility] Comment on above: Performed By: #### L 501.8820, L101.9900, L100.0500, L500.2500 ####[facility] [address] [place], [place], [address] Erythrocyte distribution wid th ratioOrdered By: Sulma Alexander on 07-27-2023 Erythrocyte distribution width (RBC) [Ratio] 15.9 % 11.6-14.6 [facility] Erythrocyte distribution wid th standard deviationOrdered By: Sulma Alexander on 07-27-2023 Erythrocyte distribution width (RBC) [Entitic vol] 45.4 fL 35.1-43.9 [facility] Erythrocyte sedimentation ra teOrdered By: Sulma Alexander on 07-27-2023 ESR (Bld) [Velocity] 23 mm/h 0-30 [facility] Hematocrit Auto (Bld) [Volum e fraction]Ordered By: Sulma Alexander on 07-27-2023 Hematocrit (Bld) [Volume fraction] 33.6 % 37-47 [facility] Laboratory - Chemistry and C hemistry - challengeOrdered By: Sulma Alexander on 07-27-2023 CO2 [Moles/Vol] 27.0 mmol/L 21.0-32.0 [facility] Urea nitrogen/Creatinine [Mass ratio] 21.7 mg/mg 10-20 [facility] Laboratory - Hematology and Cell countsOrdered By: Sulma Alexander on 07-27-2023 MCH (RBC) [Entitic mass] 24.0 pg 27.0-32.0 [facility] MCHC (RBC) [Mass/Vol] 30.1 g/dL 32-36 [facility] Platelet mean volume (Bld) [Entitic vol] 9.3 fL 6.2-12.0 [facility] Platelets (Bld) [#/Vol] 347 10*3/uL 150-450 [facility] No Panel InformationOrdered By: Sulma Alexander on 07-27-2023 Estimated GFR (MDRD) Amer 80 mL/min >60 [facility] Comment on above: GFR Calc Estimated GFR (MDRD) Non-Af Amer 66 mL/min >60 [facility] Comment on above: Non- GFR Calc RBC Auto (Bld) [#/Vol]Ordere d By: Sulma Alexander on 07-27-2023 RBC (Bld) [#/Vol] 4.21 10*6/uL 4.2-5.4 [facility] Serum or plasma calcium surjit urement (mass/volume)Ordered By: Sulma Alexander on 07-27-2023 Calcium [Mass/Vol] 9.8 mg/dL 8.5-10.1 [facility] Serum or plasma creatinine m easurement (mass/volume)Ordered By: Sulma Alexander on 07-27-2023 Creatinine [Mass/Vol] 0.88 mg/dL 0.55-1.02 [facility] Comment on above: The validity of the calculated GFR & GFRAA in patients over 70 years has not been determined. Clinical correlation is essential. Serum or plasma trough vanco mycin levelOrdered By: Sulma Alexander on 07-27-2023 Vancomycin trough [Mass/Vol] 21.1 ug/mL 5.0-15.0 [facility] Comment on above: VANCOMYCIN STANDARED DRUG THERAPY TROUGH LEVEL: 5.0 - 15.0 mg/L VANCOMYCIN HIGH INTENSITY THERAPY TROUGH LEVEL: 15.0 - 20.0 mg/L High Intensity therapy recommended for serious lifethreatening infections include:- Aicydvoojw-Vijdwffbfcha-Syyeatoug (Ventilator/Healtcare Associated)-Sepsis PLEASE CONTACT PHARMACY SERVICES (#[id number]) FOR INTERPRETATIONOF RESULTS. Serum or plasma urea nitroge n measurement (mass/volume)Ordered By: uSlma Alexander on 07-27-2023 Urea nitrogen [Mass/Vol] 19 mg/dL 7-18 [facility] Thin prep Papanicolaou smear with manual screeningOrdered By: Sulma Alexander on 07-27-2023 Thin prep Papanicolaou smear with manual screening 3 5-15 [facility] Vancomycin, Trough Levelon 0 07-27-2023 VANCO, TROUGH 21.1 ug/mL High 5.0-15.0 [facility] Comment on above: Order Comment: 1150 Result Comment: VANC OMYCIN STANDARED DRUG THERAPY TROUGH LEVEL: 5.0 - 15.0 mg/LVANCOMYCIN HIGH INTENSITY THERAPY TROUGH LEVEL: 15.0 - 20.0 mg/LHigh Intensity therapy recommended for serious lifethreatening infections include:- Odckjndfql-Xrikllajhlzc-Sbccgquxc (Ventilator/Healtcare Associated)-SepsisPLEASE CONTACT PHARMACY SERVICES (#[id number]) FOR INTERPRETATIONOF RESULTS. Performed By: #### L 501.8820, L101.9900, L100.0500, L500.2500 ####[facility] [address] [place], [place], [id number] Absolute lymphocyte countOrd ered By: Sulma Alexander on 07-20-2023 Lymphocytes Auto (Unsp spec) [#/Vol] 2.44 10*3/uL 0.83-4.51 [facility] Automated lymphocyte count a s percentage of total leukocytesOrdered By: Sulma Alexander on 07-20-2023 Lymphocytes/100 WBC Auto (Unsp spec) 25.5 % 19-41 [facility] Basic Metabolic Profile (BMP )on 07-20-2023 BUN/CRE 26.9 RATIO High 10-20 [facility] Comment on above: Performed By: #### L 501.8820, L100.0100, L101.9900, L500.2500 ####[facility] [address] [place], [place], [address] [place],Total 9.8 mg/dL Normal 8.5-10.1 [facility] Comment on above: Performed By: #### L 501.8820, L100.0100, L101.9900, L500.2500 ####[facility] [address] [place], [address] Chloride [Moles/Vol] 109 mmol/L High 98-107 [facility] Comment on above: Performed By: #### L 501.8820, L100.0100, L101.9900, L500.2500 ####[facility] [address] [place], [address] CO2 [Moles/Vol] 27.0 mmol/L Normal 21.0-32.0 [facility] Comment on above: Performed By: #### L 501.8820, L100.0100, L101.9900, L500.2500 ####[facility] [address] [place], [address] Creatinine [Mass/Vol] 0.67 mg/dL Normal 0.55-1.02 [facility] Comment on above: Result Comment: The validity of the calculated GFR GFRAA in patients over70 years has not been determined. Clinical correlation isessential. Performed By: #### L 501.8820, L100.0100, L101.9900, L500.2500 ####[facility] [address] [place], [address] EST GFR - AA 109 mL/min Normal >60 [facility] Comment on above: Result Comment: Afri can [place] GFR Calc Performed By: #### L 501.8820, L100.0100, L101.9900, L500.2500 ####[facility] [address] [place], [address] GAP 4 Low 5-15 [facility] Comment on above: Performed By: #### L 501.8820, L100.0100, L101.9900, L500.2500 ####[facility] [address] [place], [address] GFR/1.73 sq M.predicted among non-blacks MDRD (S/P/Bld) [Vol rate/Area] 90 mL/min/{1.73_m2} Normal >60 [facility] Comment on above: Result Comment: Non- GFR Calc Performed By: #### L 501.8820, L100.0100, L101.9900, L500.2500 ####[facility] [address] [place], [address] Glucose [Mass/Vol] 99 mg/dL Normal 74-106 [facility] Comment on above: Performed By: #### L 501.8820, L100.0100, L101.9900, L500.2500 ####[facility] [address] [place], [address] Potassium [Moles/Vol] 4.0 mmol/L Normal 3.5-5.1 [facility] Comment on above: Performed By: #### L 501.8820, L100.0100, L101.9900, L500.2500 ####[facility] [address] [place], [address] Sodium [Moles/Vol] 140 mmol/L Normal 136-145 [facility] Comment on above: Performed By: #### L 501.8820, L100.0100, L101.9900, L500.2500 ####[facility] [address] [place], [address] Urea nitrogen [Mass/Vol] 18 mg/dL Normal 7-18 [facility] Comment on above: Performed By: #### L 501.8820, L100.0100, L101.9900, L500.2500 ####[facility] [address] [place], [address] Basophil percentageOrdered B y: Sulma Alexander on 07-20-2023 Basophils/100 WBC (Bld) 0.4 % 0-1 [facility] Chloride [Moles/Vol] 109 mmol/L 98-107 [facility] Eosinophils/100 WBC (Bld) 1.6 % 0-5 [facility] Glucose [Mass/Vol] 99 mg/dL 74-106 [facility] Hemoglobin (Bld) [Mass/Vol] 9.7 g/dL 12.0-15.0 [facility] Monocytes/100 WBC (Bld) 9.6 % 0-10 [facility] Neutrophils (Bld) [#/Vol] 6.0 10*3/uL 2.0-7.7 [facility] Neutrophils/100 WBC (Bld) 62.4 % 47-70 [facility] Potassium [Moles/Vol] 4.0 mmol/L 3.5-5.1 [facility] Sodium [Moles/Vol] 140 mmol/L 136-145 [facility] WBC (Bld) [#/Vol] 9.6 10*3/uL 4.4-11.0 [facility] CBC W/Diff, Automatedon 04-3 0-2023 Absolute Lymph 2.44 X10 3/uL Normal 0.83-4.51 [facility] Comment on above: Performed By: #### L 501.8820, L100.0100, L101.9900, L500.2500 ####[facility] [address] [place], [address] Absolute Neut 6.0 X10 3/uL Normal 2.0-7.7 [facility] Comment on above: Performed By: #### L 501.8820, L100.0100, L101.9900, L500.2500 ####[facility] [address] [place], [address] Basophils/100 WBC (Bld) 0.4 % Normal 0-1 [facility] Comment on above: Performed By: #### L 501.8820, L100.0100, L101.9900, L500.2500 ####[facility] [address] [place], [address] Eosinophils/100 WBC (Bld) 1.6 % Normal 0-5 [facility] Comment on above: Performed By: #### L 501.8820, L100.0100, L101.9900, L500.2500 ####[facility] [address] [place], [address] Erythrocyte distribution width (RBC) [Ratio] 15.3 % High 11.6-14.6 [facility] Comment on above: Performed By: #### L 501.8820, L100.0100, L101.9900, L500.2500 ####[facility] [address] [place], [address] Hematocrit (Bld) [Volume fraction] 31.8 % Low 37-47 [facility] Comment on above: Performed By: #### L 501.8820, L100.0100, L101.9900, L500.2500 ####[facility] [address] [place], [address] Hemoglobin (Bld) [Mass/Vol] 9.7 g/dL Low 12.0-15.0 [facility] Comment on above: Performed By: #### L 501.8820, L100.0100, L101.9900, L500.2500 ####[facility] [address] [place], [address] IG% 0.500 Normal 0.0-0.9 [facility] Comment on above: Result Comment: IG% - Immature Granulocytes (promyelocytes, myelocytes andmetamyelocytes) > 1% indicates that a LEFT SHIFT is Present. Performed By: #### L 501.8820, L100.0100, L101.9900, L500.2500 ####[facility] [address] [place], [address] Lymphocytes/100 WBC (Bld) 25.5 % Normal 19-41 [facility] Comment on above: Performed By: #### L 501.8820, L100.0100, L101.9900, L500.2500 ####[facility] [address] [place], [address] MCH (RBC) [Entitic mass] 24.1 pg Low 27.0-32.0 [facility] Comment on above: Performed By: #### L 501.8820, L100.0100, L101.9900, L500.2500 ####[facility] [address] [place], [address] MCHC (RBC) [Mass/Vol] 30.5 g/dL Low 32-36 [facility] Comment on above: Performed By: #### L 501.8820, L100.0100, L101.9900, L500.2500 ####[facility] [address] [place], [address] MCV (RBC) [Entitic vol] 79.1 fL Low 81-99 [facility] Comment on above: Performed By: #### L 501.8820, L100.0100, L101.9900, L500.2500 ####[facility] [address] [place], [address] Monocytes/100 WBC (Bld) 9.6 % Normal 0-10 [facility] Comment on above: Performed By: #### L 501.8820, L100.0100, L101.9900, L500.2500 ####[facility] [address] [place], [address] Neutrophils/100 WBC (Bld) 62.4 % Normal 47-70 [facility] Comment on above: Performed By: #### L 501.8820, L100.0100, L101.9900, L500.2500 ####[facility] [address] [place], [address] Nucleated RBC (Bld) [#/Vol] 0 10*3/uL Normal 0-5 [facility] Comment on above: Performed By: #### L 501.8820, L100.0100, L101.9900, L500.2500 ####[facility] [address] [place], [address] Platelet mean volume (Bld) [Entitic vol] 9.1 fL Normal 6.2-12.0 [facility] Comment on above: Performed By: #### L 501.8820, L100.0100, L101.9900, L500.2500 ####[facility] [address] [place], [address] Platelets (Bld) [#/Vol] 393 10*3/uL Normal 150-450 [facility] Comment on above: Performed By: #### L 501.8820, L100.0100, L101.9900, L500.2500 ####[facility] [address] [place], [address] RBC (Bld) [#/Vol] 4.02 10*6/uL Low 4.2-5.4 [facility] Comment on above: Performed By: #### L 501.8820, L100.0100, L101.9900, L500.2500 ####[facility] [address] [place], [address] RDW SD 43.8 fl Normal 35.1-43.9 [facility] Comment on above: Performed By: #### L 501.8820, L100.0100, L101.9900, L500.2500 ####[facility] [address] [place], [address] WBC (Bld) [#/Vol] 9.6 10*3/uL Normal 4.4-11.0 [facility] Comment on above: Performed By: #### L 501.8820, L100.0100, L101.9900, L500.2500 ####[facility] [address] [place], [address] Determination of erythrocyte mean corpuscular volume (MCV)Ordered By: Sulma Alexander on 07-20-2023 MCV (RBC) [Entitic vol] 79.1 fL 81-99 [facility] Erythrocyte Sed Rateon 07-19 SED RATE 21 mm/hr Normal 0- [facility] Comment on above: Performed By: #### L 501.8820, L100.0100, L101.9900, L500.2500 ####[facility] [address] [place], [address] Erythrocyte distribution wid th ratioOrdered By: Sulma Alexander on 07-20-2023 Erythrocyte distribution width (RBC) [Ratio] 15.3 % 11.6-14.6 [facility] Erythrocyte distribution wid th standard deviationOrdered By: Sulma Alexander on 07-20-2023 Erythrocyte distribution width (RBC) [Entitic vol] 43.8 fL 35.1-43.9 [facility] Erythrocyte sedimentation ra teOrdered By: Sulma Alexander on 07-20-2023 ESR (Bld) [Velocity] 21 mm/h 0- [facility] Hematocrit Auto (Bld) [Volum e fraction]Ordered By: Sulma Alexander on 07-20-2023 Hematocrit (Bld) [Volume fraction] 31.8 % 37-47 [facility] Immature granulocytes/100 WB C Auto (Bld)Ordered By: Sulma Alexander on 07-20-2023 Immature granulocytes/100 WBC (Bld) 0.500 % 0.0-0.9 [facility] Comment on above: IG% - Immature Granu locytes (promyelocytes, myelocytes and metamyelocytes) > 1% indicates that a LEFT SHIFT is Present. Laboratory - Chemistry and C hemistry - challengeOrdered By: Sulma Alexander on 07-20-2023 CO2 [Moles/Vol] 27.0 mmol/L 21.0-32.0 [facility] Urea nitrogen/Creatinine [Mass ratio] 26.9 mg/mg 10- [facility] Laboratory - Hematology and Cell countsOrdered By: Sluma Alexander on 07-20-2023 MCH (RBC) [Entitic mass] 24.1 pg 27.0-32.0 [facility] MCHC (RBC) [Mass/Vol] 30.5 g/dL 32-36 [facility] Nucleated RBC/100 WBC (Bld) [Ratio] 0 % 0-5 [facility] Platelet mean volume (Bld) [Entitic vol] 9.1 fL 6.2-12.0 [facility] Platelets (Bld) [#/Vol] 393 10*3/uL 150-450 [facility] No Panel InformationOrdered By: Sulma Alexander on 07-20-2023 Estimated GFR (MDRD) Amer 109 mL/min >60 [facility] Comment on above: GFR Calc Estimated GFR (MDRD) Non-Af Amer 90 mL/min >60 [facility] Comment on above: Non- GFR Calc RBC Auto (Bld) [#/Vol]Ordere d By: Sulma Alexander on 07-20-2023 RBC (Bld) [#/Vol] 4.02 10*6/uL 4.2-5.4 [facility] Serum or plasma calcium surjit urement (mass/volume)Ordered By: Sulma Alexander on 07-20-2023 Calcium [Mass/Vol] 9.8 mg/dL 8.5-10.1 [facility] Serum or plasma creatinine m easurement (mass/volume)Ordered By: Sulma Alexander on 07-20-2023 Creatinine [Mass/Vol] 0.67 mg/dL 0.55-1.02 [facility] Comment on above: The validity of the calculated GFR & GFRAA in patients over 70 years has not been determined. Clinical correlation is essential. Serum or plasma trough vanco mycin levelOrdered By: Sulma Alexander on 07-20-2023 Vancomycin trough [Mass/Vol] 18.2 ug/mL 5.0-15.0 [facility] Comment on above: VANCOMYCIN STANDARED DRUG THERAPY TROUGH LEVEL: 5.0 - 15.0 mg/L VANCOMYCIN HIGH INTENSITY THERAPY TROUGH LEVEL: 15.0 - 20.0 mg/L High Intensity therapy recommended for serious lifethreatening infections include:- Kdpepsfyzz-Zyqchxbpxdms-Pouxdfnjs (Ventilator/Healtcare Associated)-Sepsis PLEASE CONTACT PHARMACY SERVICES (#[id number]) FOR INTERPRETATIONOF RESULTS. Serum or plasma urea nitroge n measurement (mass/volume)Ordered By: Sulma Aelxander on 07-20-2023 Urea nitrogen [Mass/Vol] 18 mg/dL 7-18 [facility] Thin prep Papanicolaou smear with manual screeningOrdered By: Sulma Alexander on 07-20-2023 Thin prep Papanicolaou smear with manual screening 4 5-15 [facility] Vancomycin, Trough Levelon 0 07-20-2023 VANCO, TROUGH 18.2 ug/mL High 5.0-15.0 [facility] Comment on above: Order Comment: 0000 Result Comment: VANC OMYCIN STANDARED DRUG THERAPY TROUGH LEVEL: 5.0 - 15.0 mg/LVANCOMYCIN HIGH INTENSITY THERAPY TROUGH LEVEL: 15.0 - 20.0 mg/LHigh Intensity therapy recommended for serious lifethreatening infections include:- Smqaiurpol-Xhfhzvdktust-Sxpurbudh (Ventilator/Healtcare Associated)-SepsisPLEASE CONTACT PHARMACY SERVICES (#[id number]) FOR INTERPRETATIONOF RESULTS. Performed By: #### L 501.8820, L100.0100, L101.9900, L500.2500 ####[facility] [address] [place], [address] Basic Metabolic Profile (BMP )on 07-13-2023 BUN/CRE 24.3 RATIO High 10-20 [facility] Comment on above: Performed By: #### L 101.9900, L500.2500, L501.8820, L100.0500 ####[facility] [address] [place], [address] CA,Total 10.0 mg/dL Normal 8.5-10.1 [facility] Comment on above: Performed By: #### L 101.9900, L500.2500, L501.8820, L100.0500 ####[facility] [address] [place], [address] Chloride [Moles/Vol] 107 mmol/L Normal 98-107 [facility] Comment on above: Performed By: #### L 101.9900, L500.2500, L501.8820, L100.0500 ####[facility] [address] [place], [address] CO2 [Moles/Vol] 27.0 mmol/L Normal 21.0-32.0 [facility] Comment on above: Performed By: #### L 101.9900, L500.2500, L501.8820, L100.0500 ####[facility] [address] [place], [address] Creatinine [Mass/Vol] 0.74 mg/dL Normal 0.55-1.02 [facility] Comment on above: Result Comment: The validity of the calculated GFR GFRAA in patients over70 years has not been determined. Clinical correlation isessential. Performed By: #### L 101.9900, L500.2500, L501.8820, L100.0500 ####[facility] [address] [place], [address] EST GFR - AA 97 mL/min Normal >60 [facility] Comment on above: Result Comment: Afri can [place] GFR Calc Performed By: #### L 101.9900, L500.2500, L501.8820, L100.0500 ####[facility] [address] [place], [address] GAP 3 Low 5-15 [facility] Comment on above: Performed By: #### L 101.9900, L500.2500, L501.8820, L100.0500 ####[facility] [address] [place], [address] GFR/1.73 sq M.predicted among non-blacks MDRD (S/P/Bld) [Vol rate/Area] 80 mL/min/{1.73_m2} Normal >60 [facility] Comment on above: Result Comment: Non- GFR Calc Performed By: #### L 101.9900, L500.2500, L501.8820, L100.0500 ####[facility] [address] [place], [address] Glucose [Mass/Vol] 113 mg/dL High 74-106 [facility] Comment on above: Result Comment: Fast ing Glucose result from 100 to 125 mg/dLsuggests IMPAIRED HOMEOSTASIS per A.D.A. criteria. Performed By: #### L 101.9900, L500.2500, L501.8820, L100.0500 ####[facility] [address] [place], [address] Potassium [Moles/Vol] 3.9 mmol/L Normal 3.5-5.1 [facility] Comment on above: Performed By: #### L 101.9900, L500.2500, L501.8820, L100.0500 ####[facility] [address] [place], [address] Sodium [Moles/Vol] 137 mmol/L Normal 136-145 [facility] Comment on above: Performed By: #### L 101.9900, L500.2500, L501.8820, L100.0500 ####[facility] [address] [place], [address] Urea nitrogen [Mass/Vol] 18 mg/dL Normal 7-18 [facility] Comment on above: Performed By: #### L 101.9900, L500.2500, L501.8820, L100.0500 ####[facility] [address] [place], [address] Basophil percentageOrdered B y: Sulma Alexander on 07-13-2023 Chloride [Moles/Vol] 107 mmol/L 98-107 [facility] Glucose [Mass/Vol] 113 mg/dL 74-106 [facility] Comment on above: Fasting Glucose resu lt from 100 to 125 mg/dL suggests IMPAIRED HOMEOSTASIS per A.D.A. criteria. Hemoglobin (Bld) [Mass/Vol] 9.6 g/dL 12.0-15.0 [facility] Potassium [Moles/Vol] 3.9 mmol/L 3.5-5.1 [facility] Sodium [Moles/Vol] 137 mmol/L 136-145 [facility] WBC (Bld) [#/Vol] 9.7 10*3/uL 4.4-11.0 [facility] CBC-Complete Blood Cnt No Claudia velarde 07-13-2023 Erythrocyte distribution width (RBC) [Ratio] 15.1 % High 11.6-14.6 [facility] Comment on above: Performed By: #### L 101.9900, L500.2500, L501.8820, L100.0500 ####[facility] [address] [place], [address] Hematocrit (Bld) [Volume fraction] 31.4 % Low 37-47 [facility] Comment on above: Performed By: #### L 101.9900, L500.2500, L501.8820, L100.0500 ####[facility] [address] [place], [address] Hemoglobin (Bld) [Mass/Vol] 9.6 g/dL Low 12.0-15.0 [facility] Comment on above: Performed By: #### L 101.9900, L500.2500, L501.8820, L100.0500 ####[facility] [address] [place], [address] MCH (RBC) [Entitic mass] 24.2 pg Low 27.0-32.0 [facility] Comment on above: Performed By: #### L 101.9900, L500.2500, L501.8820, L100.0500 ####[facility] [address] [place], [address] MCHC (RBC) [Mass/Vol] 30.6 g/dL Low 32-36 [facility] Comment on above: Performed By: #### L 101.9900, L500.2500, L501.8820, L100.0500 ####[facility] [address] [place], [address] MCV (RBC) [Entitic vol] 79.3 fL Low 81-99 [facility] Comment on above: Performed By: #### L 101.9900, L500.2500, L501.8820, L100.0500 ####[facility] [address] [place], [address] Platelet mean volume (Bld) [Entitic vol] 8.4 fL Normal 6.2-12.0 [facility] Comment on above: Performed By: #### L 101.9900, L500.2500, L501.8820, L100.0500 ####[facility] [address] [place], [address] Platelets (Bld) [#/Vol] 407 10*3/uL Normal 150-450 [facility] Comment on above: Performed By: #### L 101.9900, L500.2500, L501.8820, L100.0500 ####[facility] [address] [place], [address] RBC (Bld) [#/Vol] 3.96 10*6/uL Low 4.2-5.4 [facility] Comment on above: Performed By: #### L 101.9900, L500.2500, L501.8820, L100.0500 ####[facility] [address] [place], [address] RDW SD 43.7 fl Normal 35.1-43.9 [facility] Comment on above: Performed By: #### L 101.9900, L500.2500, L501.8820, L100.0500 ####[facility] [address] [place], [address] WBC (Bld) [#/Vol] 9.7 10*3/uL Normal 4.4-11.0 [facility] Comment on above: Performed By: #### L 101.9900, L500.2500, L501.8820, L100.0500 ####[facility] [address] [place], [place], [id number] Determination of erythrocyte mean corpuscular volume (MCV)Ordered By: Sulma Alexander on 07-13-2023 MCV (RBC) [Entitic vol] 79.3 fL 81-99 [facility] Erythrocyte Sed Rateon 07-12 SED RATE 30 mm/hr Normal 0-30 [facility] Comment on above: Performed By: #### L 101.9900, L500.2500, L501.8820, L100.0500 ####[facility] [address] [place], [place], [address] Erythrocyte distribution wid th ratioOrdered By: Sulma Alexander on 07-13-2023 Erythrocyte distribution width (RBC) [Ratio] 15.1 % 11.6-14.6 [facility] Erythrocyte distribution wid th standard deviationOrdered By: Sulma Alexander on 07-13-2023 Erythrocyte distribution width (RBC) [Entitic vol] 43.7 fL 35.1-43.9 [facility] Erythrocyte sedimentation ra teOrdered By: Sulma Alexander on 07-13-2023 ESR (Bld) [Velocity] 30 mm/h 0-30 [facility] Hematocrit Auto (Bld) [Volum e fraction]Ordered By: Sulma Alexander on 07-13-2023 Hematocrit (Bld) [Volume fraction] 31.4 % 37-47 [facility] Laboratory - Chemistry and C hemistry - challengeOrdered By: Sulma Alexander on 07-13-2023 CO2 [Moles/Vol] 27.0 mmol/L 21.0-32.0 [facility] Urea nitrogen/Creatinine [Mass ratio] 24.3 mg/mg 10-20 [facility] Laboratory - Hematology and Cell countsOrdered By: Sulma Alexander on 07-13-2023 MCH (RBC) [Entitic mass] 24.2 pg 27.0-32.0 [facility] MCHC (RBC) [Mass/Vol] 30.6 g/dL 32-36 [facility] Platelet mean volume (Bld) [Entitic vol] 8.4 fL 6.2-12.0 [facility] Platelets (Bld) [#/Vol] 407 10*3/uL 150-450 [facility] No Panel InformationOrdered By: Sulma Alexander on 07-13-2023 Estimated GFR (MDRD) Amer 97 mL/min >60 [facility] Comment on above: GFR Calc Estimated GFR (MDRD) Non-Af Amer 80 mL/min >60 [facility] Comment on above: Non- GFR Calc RBC Auto (Bld) [#/Vol]Ordere d By: Sulma Alexander on 07-13-2023 RBC (Bld) [#/Vol] 3.96 10*6/uL 4.2-5.4 [facility] Serum or plasma calcium surjit urement (mass/volume)Ordered By: Sulma Alexander on 07-13-2023 Calcium [Mass/Vol] 10.0 mg/dL 8.5-10.1 [facility] Serum or plasma creatinine m easurement (mass/volume)Ordered By: Sulma Alexander on 07-13-2023 Creatinine [Mass/Vol] 0.74 mg/dL 0.55-1.02 [facility] Comment on above: The validity of the calculated GFR & GFRAA in patients over 70 years has not been determined. Clinical correlation is essential. Serum or plasma trough vanco mycin levelOrdered By: Sulma Alexander on 07-13-2023 Vancomycin trough [Mass/Vol] 17.7 ug/mL 5.0-15.0 [facility] Comment on above: VANCOMYCIN STANDARED DRUG THERAPY TROUGH LEVEL: 5.0 - 15.0 mg/L VANCOMYCIN HIGH INTENSITY THERAPY TROUGH LEVEL: 15.0 - 20.0 mg/L High Intensity therapy recommended for serious lifethreatening infections include:- Aikvitwdhh-Newashymknzd-Jsldkdksc (Ventilator/Healtcare Associated)-Sepsis PLEASE CONTACT PHARMACY SERVICES (#[id number]) FOR INTERPRETATIONOF RESULTS. Serum or plasma urea nitroge n measurement (mass/volume)Ordered By: Sulma Alexander on 07-13-2023 Urea nitrogen [Mass/Vol] 18 mg/dL 7-18 [facility] Thin prep Papanicolaou smear with manual screeningOrdered By: Sulma Alexander on 07-13-2023 Thin prep Papanicolaou smear with manual screening 3 5-15 [facility] Vancomycin, Trough Levelon 0 07-13-2023 VANCO, TROUGH 17.7 ug/mL High 5.0-15.0 [facility] Comment on above: Order Comment: 1311 Result Comment: VANC OMYCIN STANDARED DRUG THERAPY TROUGH LEVEL: 5.0 - 15.0 mg/LVANCOMYCIN HIGH INTENSITY THERAPY TROUGH LEVEL: 15.0 - 20.0 mg/LHigh Intensity therapy recommended for serious lifethreatening infections include:- Moyicoginu-Zejdxpfrnwnt-Xkqnlhxln (Ventilator/Healtcare Associated)-SepsisPLEASE CONTACT PHARMACY SERVICES (#1936) FOR INTERPRETATIONOF RESULTS. Performed By: #### L 101.9900, L500.2500, L501.8820, L100.0500 ####[facility] [address] [place], [address] Basic Metabolic Profile (BMP )on 07-06-2023 BUN/CRE 25.1 RATIO High 10-20 [facility] Comment on above: Performed By: #### L 100.0500, L101.9900, L500.2500, L501.8820 ####[facility] [address] [place], [address] CA,Total 9.6 mg/dL Normal 8.5-10.1 [facility] Comment on above: Performed By: #### L 100.0500, L101.9900, L500.2500, L501.8820 ####[facility] [address] [place], [address] Chloride [Moles/Vol] 108 mmol/L High 98-107 [facility] Comment on above: Performed By: #### L 100.0500, L101.9900, L500.2500, L501.8820 ####[facility] [address] [place], [address] CO2 [Moles/Vol] 28.0 mmol/L Normal 21.0-32.0 [facility] Comment on above: Performed By: #### L 100.0500, L101.9900, L500.2500, L501.8820 ####[facility] [address] [place], [address] Creatinine [Mass/Vol] 0.72 mg/dL Normal 0.55-1.02 [facility] Comment on above: Result Comment: The validity of the calculated GFR GFRAA in patients over70 years has not been determined. Clinical correlation isessential. Performed By: #### L 100.0500, L101.9900, L500.2500, L501.8820 ####[facility] [address] [place], [address] EST GFR - AA 101 mL/min Normal >60 [facility] Comment on above: Result Comment: Afri can [place] GFR Calc Performed By: #### L 100.0500, L101.9900, L500.2500, L501.8820 ####[facility] [address] [place], [address] GAP 3 Low 5-15 [facility] Comment on above: Performed By: #### L 100.0500, L101.9900, L500.2500, L501.8820 ####[facility] [address] [place], [address] GFR/1.73 sq M.predicted among non-blacks MDRD (S/P/Bld) [Vol rate/Area] 84 mL/min/{1.73_m2} Normal >60 [facility] Comment on above: Result Comment: Non- GFR Calc Performed By: #### L 100.0500, L101.9900, L500.2500, L501.8820 ####[facility] [address] [place], [address] Glucose [Mass/Vol] 122 mg/dL High 74-106 [facility] Comment on above: Result Comment: Fast ing Glucose result from 100 to 125 mg/dLsuggests IMPAIRED HOMEOSTASIS per A.D.A. criteria. Performed By: #### L 100.0500, L101.9900, L500.2500, L501.8820 ####[facility] [address] [place], [address] Potassium [Moles/Vol] 3.7 mmol/L Normal 3.5-5.1 [facility] Comment on above: Performed By: #### L 100.0500, L101.9900, L500.2500, L501.8820 ####[facility] [address] [place], [address] Sodium [Moles/Vol] 139 mmol/L Normal 136-145 [facility] Comment on above: Performed By: #### L 100.0500, L101.9900, L500.2500, L501.8820 ####[facility] [address] [place], [address] Urea nitrogen [Mass/Vol] 18 mg/dL Normal 7-18 [facility] Comment on above: Performed By: #### L 100.0500, L101.9900, L500.2500, L501.8820 ####[facility] [address] [place], [address] Basophil percentageOrdered B y: Roman Faith on 07-06-2023 Chloride [Moles/Vol] 108 mmol/L 98-107 [facility] Glucose [Mass/Vol] 122 mg/dL 74-106 [facility] Comment on above: Fasting Glucose resu lt from 100 to 125 mg/dL suggests IMPAIRED HOMEOSTASIS per A.D.A. criteria. Hemoglobin (Bld) [Mass/Vol] 9.0 g/dL 12.0-15.0 [facility] Potassium [Moles/Vol] 3.7 mmol/L 3.5-5.1 [facility] Sodium [Moles/Vol] 139 mmol/L 136-145 [facility] WBC (Bld) [#/Vol] 11.1 10*3/uL 4.4-11.0 [facility] CBC-Complete Blood Cnt No Di ffon 07-06-2023 Erythrocyte distribution width (RBC) [Ratio] 15.0 % High 11.6-14.6 [facility] Comment on above: Performed By: #### L 100.0500, L101.9900, L500.2500, L501.8820 ####[facility] [address] [place], [address] Hematocrit (Bld) [Volume fraction] 29.4 % Low 37-47 [facility] Comment on above: Performed By: #### L 100.0500, L101.9900, L500.2500, L501.8820 ####[facility] [address] [place], [address] Hemoglobin (Bld) [Mass/Vol] 9.0 g/dL Low 12.0-15.0 [facility] Comment on above: Performed By: #### L 100.0500, L101.9900, L500.2500, L501.8820 ####[facility] [address] [place], [address] MCH (RBC) [Entitic mass] 24.6 pg Low 27.0-32.0 [facility] Comment on above: Performed By: #### L 100.0500, L101.9900, L500.2500, L501.8820 ####[facility] [address] [place], [address] MCHC (RBC) [Mass/Vol] 30.6 g/dL Low 32-36 [facility] Comment on above: Performed By: #### L 100.0500, L101.9900, L500.2500, L501.8820 ####[facility] [address] [place], [address] MCV (RBC) [Entitic vol] 80.3 fL Low 81-99 [facility] Comment on above: Performed By: #### L 100.0500, L101.9900, L500.2500, L501.8820 ####[facility] [address] [place], [address] Platelet mean volume (Bld) [Entitic vol] 8.4 fL Normal 6.2-12.0 [facility] Comment on above: Performed By: #### L 100.0500, L101.9900, L500.2500, L501.8820 ####[facility] [address] [place], [address] Platelets (Bld) [#/Vol] 315 10*3/uL Normal 150-450 [facility] Comment on above: Performed By: #### L 100.0500, L101.9900, L500.2500, L501.8820 ####[facility] [address] [place], [address] RBC (Bld) [#/Vol] 3.66 10*6/uL Low 4.2-5.4 [facility] Comment on above: Performed By: #### L 100.0500, L101.9900, L500.2500, L501.8820 ####[facility] [address] [place], [address] RDW SD 44.0 fl High 35.1-43.9 [facility] Comment on above: Performed By: #### L 100.0500, L101.9900, L500.2500, L501.8820 ####[facility] [address] [place], [address] WBC (Bld) [#/Vol] 11.1 10*3/uL High 4.4-11.0 [facility] Comment on above: Performed By: #### L 100.0500, L101.9900, L500.2500, L501.8820 ####[facility] [address] [place], [address] Determination of erythrocyte mean corpuscular volume (MCV)Ordered By: Roman Faith on 07-06-2023 MCV (RBC) [Entitic vol] 80.3 fL 81-99 [facility] Erythrocyte Sed Rateon 07-05 SED RATE 28 mm/hr Normal 0-30 [facility] Comment on above: Performed By: #### L 100.0500, L101.9900, L500.2500, L501.8820 ####[facility] [address] [place], [place], [id number] Erythrocyte distribution wid th ratioOrdered By: Roman Faith on 07-06-2023 Erythrocyte distribution width (RBC) [Ratio] 15.0 % 11.6-14.6 [facility] Erythrocyte distribution wid th standard deviationOrdered By: Roman Faith on 07-06-2023 Erythrocyte distribution width (RBC) [Entitic vol] 44.0 fL 35.1-43.9 [facility] Erythrocyte sedimentation ra teOrdered By: Roman Faith on 07-06-2023 ESR (Bld) [Velocity] 28 mm/h 0-30 [facility] Hematocrit Auto (Bld) [Volum e fraction]Ordered By: Roman Faith on 07-06-2023 Hematocrit (Bld) [Volume fraction] 29.4 % 37-47 [facility] Laboratory - Chemistry and C hemistry - challengeOrdered By: Roman Faith on 07-06-2023 CO2 [Moles/Vol] 28.0 mmol/L 21.0-32.0 [facility] Urea nitrogen/Creatinine [Mass ratio] 25.1 mg/mg 10-20 [facility] Laboratory - Hematology and Cell countsOrdered By: Roman Faith on 07-06-2023 MCH (RBC) [Entitic mass] 24.6 pg 27.0-32.0 [facility] MCHC (RBC) [Mass/Vol] 30.6 g/dL 32-36 [facility] Platelet mean volume (Bld) [Entitic vol] 8.4 fL 6.2-12.0 [facility] Platelets (Bld) [#/Vol] 315 10*3/uL 150-450 [facility] No Panel InformationOrdered By: Roman Faith on 07-06-2023 Estimated GFR (MDRD) Amer 101 mL/min >60 [facility] Comment on above: GFR Calc Estimated GFR (MDRD) Non-Af Amer 84 mL/min >60 [facility] Comment on above: Non- GFR Calc RBC Auto (Bld) [#/Vol]Ordere d By: Roman Faith on 07-06-2023 RBC (Bld) [#/Vol] 3.66 10*6/uL 4.2-5.4 [facility] Serum or plasma calcium surjit urement (mass/volume)Ordered By: Roman Faith on 07-06-2023 Calcium [Mass/Vol] 9.6 mg/dL 8.5-10.1 [facility] Serum or plasma creatinine m easurement (mass/volume)Ordered By: Roman Faith on 07-06-2023 Creatinine [Mass/Vol] 0.72 mg/dL 0.55-1.02 [facility] Comment on above: The validity of the calculated GFR & GFRAA in patients over 70 years has not been determined. Clinical correlation is essential. Serum or plasma trough vanco mycin levelOrdered By: Roman Faith on 07-06-2023 Vancomycin trough [Mass/Vol] 15.6 ug/mL 5.0-15.0 [facility] Comment on above: VANCOMYCIN STANDARED DRUG THERAPY TROUGH LEVEL: 5.0 - 15.0 mg/L VANCOMYCIN HIGH INTENSITY THERAPY TROUGH LEVEL: 15.0 - 20.0 mg/L High Intensity therapy recommended for serious lifethreatening infections include:- Giuwkajelv-Noecbbgjklcd-Jgiurjrdu (Ventilator/Healtcare Associated)-Sepsis PLEASE CONTACT PHARMACY SERVICES (#[id number]) FOR INTERPRETATIONOF RESULTS. Serum or plasma urea nitroge n measurement (mass/volume)Ordered By: Roman Faith on 07-06-2023 Urea nitrogen [Mass/Vol] 18 mg/dL 7-18 [facility] Thin prep Papanicolaou smear with manual screeningOrdered By: Roman Faith on 07-06-2023 Thin prep Papanicolaou smear with manual screening 3 5-15 [facility] Vancomycin, Trough Levelon 0 4-16-2024 VANCO, TROUGH 15.6 ug/mL High 5.0-15.0 [facility] Comment on above: Order Comment: 1300 Result Comment: VANC OMYCIN STANDARED DRUG THERAPY TROUGH LEVEL: 5.0 - 15.0 mg/LVANCOMYCIN HIGH INTENSITY THERAPY TROUGH LEVEL: 15.0 - 20.0 mg/LHigh Intensity therapy recommended for serious lifethreatening infections include:- Iryqzptgbh-Lfjjjybnlseg-Riqwmwcod (Ventilator/Healtcare Associated)-SepsisPLEASE CONTACT PHARMACY SERVICES (#[id number]) FOR INTERPRETATIONOF RESULTS. Performed By: #### L 100.0500, L101.9900, L500.2500, L501.8820 ####[facility] [address] [place], [address] Basic Metabolic Profile (BMP )on 06-29-2023 BUN/CRE 23.5 RATIO High 10-20 [facility] Comment on above: Performed By: #### L 100.0500, L101.9900, L501.8820, L500.2500 ####[facility] [address] [place], [address] CA,Total 10.1 mg/dL Normal 8.5-10.1 [facility] Comment on above: Performed By: #### L 100.0500, L101.9900, L501.8820, L500.2500 ####[facility] [address] [place], [address] Chloride [Moles/Vol] 106 mmol/L Normal 98-107 [facility] Comment on above: Performed By: #### L 100.0500, L101.9900, L501.8820, L500.2500 ####[facility] [address] [place], [address] CO2 [Moles/Vol] 28.0 mmol/L Normal 21.0-32.0 [facility] Comment on above: Performed By: #### L 100.0500, L101.9900, L501.8820, L500.2500 ####[facility] [address] [place], [address] Creatinine [Mass/Vol] 0.64 mg/dL Normal 0.55-1.02 [facility] Comment on above: Result Comment: The validity of the calculated GFR GFRAA in patients over70 years has not been determined. Clinical correlation isessential. Performed By: #### L 100.0500, L101.9900, L501.8820, L500.2500 ####[facility] [address] [place], [address] ECRCL 40.96 ml/min Normal [facility] Comment on above: Performed By: #### L 100.0500, L101.9900, L501.8820, L500.2500 ####[facility] [address] [place], [address] EST GFR - AA 116 mL/min Normal >60 [facility] Comment on above: Result Comment: Afri can [place] GFR Calc Performed By: #### L 100.0500, L101.9900, L501.8820, L500.2500 ####[facility] [address] [place], [address] GAP 4 Low 5-15 [facility] Comment on above: Performed By: #### L 100.0500, L101.9900, L501.8820, L500.2500 ####[facility] [address] [place], [address] GFR/1.73 sq M.predicted among non-blacks MDRD (S/P/Bld) [Vol rate/Area] 95 mL/min/{1.73_m2} Normal >60 [facility] Comment on above: Result Comment: Non- GFR Calc Performed By: #### L 100.0500, L101.9900, L501.8820, L500.2500 ####[facility] [address] [place], [address] Glucose [Mass/Vol] 116 mg/dL High 74-106 [facility] Comment on above: Result Comment: Fast ing Glucose result from 100 to 125 mg/dLsuggests IMPAIRED HOMEOSTASIS per A.D.A. criteria. Performed By: #### L 100.0500, L101.9900, L501.8820, L500.2500 ####[facility] [address] [place], [address] Potassium [Moles/Vol] 4.2 mmol/L Normal 3.5-5.1 [facility] Comment on above: Performed By: #### L 100.0500, L101.9900, L501.8820, L500.2500 ####[facility] [address] [place], [address] Sodium [Moles/Vol] 138 mmol/L Normal 136-145 [facility] Comment on above: Performed By: #### L 100.0500, L101.9900, L501.8820, L500.2500 ####[facility] [address] [place], [address] Urea nitrogen [Mass/Vol] 15 mg/dL Normal 7-18 [facility] Comment on above: Performed By: #### L 100.0500, L101.9900, L501.8820, L500.2500 ####[facility] [address] [place], [address] Basophil percentageOrdered B y: Roman Faith on 06-29-2023 Chloride [Moles/Vol] 106 mmol/L 98-107 [facility] Glucose [Mass/Vol] 116 mg/dL 74-106 [facility] Comment on above: Fasting Glucose resu lt from 100 to 125 mg/dL suggests IMPAIRED HOMEOSTASIS per A.D.A. criteria. Hemoglobin (Bld) [Mass/Vol] 9.5 g/dL 12.0-15.0 [facility] Potassium [Moles/Vol] 4.2 mmol/L 3.5-5.1 [facility] Sodium [Moles/Vol] 138 mmol/L 136-145 [facility] WBC (Bld) [#/Vol] 12.3 10*3/uL 4.4-11.0 [facility] CBC-Complete Blood Cnt No Di ffon 06-29-2023 Erythrocyte distribution width (RBC) [Ratio] 15.7 % High 11.6-14.6 [facility] Comment on above: Performed By: #### L 100.0500, L101.9900, L501.8820, L500.2500 ####[facility] [address] [place], [address] Hematocrit (Bld) [Volume fraction] 32.0 % Low 37-47 [facility] Comment on above: Performed By: #### L 100.0500, L101.9900, L501.8820, L500.2500 ####[facility] [address] [place], [address] Hemoglobin (Bld) [Mass/Vol] 9.5 g/dL Low 12.0-15.0 [facility] Comment on above: Performed By: #### L 100.0500, L101.9900, L501.8820, L500.2500 ####[facility] [address] [place], [address] MCH (RBC) [Entitic mass] 24.1 pg Low 27.0-32.0 [facility] Comment on above: Performed By: #### L 100.0500, L101.9900, L501.8820, L500.2500 ####[facility] [address] [place], [address] MCHC (RBC) [Mass/Vol] 29.7 g/dL Low 32-36 [facility] Comment on above: Performed By: #### L 100.0500, L101.9900, L501.8820, L500.2500 ####[facility] [address] [place], [address] MCV (RBC) [Entitic vol] 81.0 fL Normal 81-99 [facility] Comment on above: Performed By: #### L 100.0500, L101.9900, L501.8820, L500.2500 ####[facility] [address] [place], [address] Platelet mean volume (Bld) [Entitic vol] 8.1 fL Normal 6.2-12.0 [facility] Comment on above: Performed By: #### L 100.0500, L101.9900, L501.8820, L500.2500 ####[facility] [address] [place], [address] Platelets (Bld) [#/Vol] 424 10*3/uL Normal 150-450 [facility] Comment on above: Performed By: #### L 100.0500, L101.9900, L501.8820, L500.2500 ####[facility] [address] [place], [address] RBC (Bld) [#/Vol] 3.95 10*6/uL Low 4.2-5.4 [facility] Comment on above: Performed By: #### L 100.0500, L101.9900, L501.8820, L500.2500 ####[facility] [address] [place], [address] RDW SD 46.2 fl High 35.1-43.9 [facility] Comment on above: Performed By: #### L 100.0500, L101.9900, L501.8820, L500.2500 ####[facility] [address] [place], [address] WBC (Bld) [#/Vol] 12.3 10*3/uL High 4.4-11.0 [facility] Comment on above: Performed By: #### L 100.0500, L101.9900, L501.8820, L500.2500 ####[facility] [address] [place], [place], [id number] Determination of erythrocyte mean corpuscular volume (MCV)Ordered By: Roman Faith on 06-29-2023 MCV (RBC) [Entitic vol] 81.0 fL 81-99 [facility] Erythrocyte Sed Rateon 06-28 SED RATE 39 mm/hr High 0-30 [facility] Comment on above: Performed By: #### L 100.0500, L101.9900, L501.8820, L500.2500 ####[facility] [address] [place], [place], [address] Erythrocyte distribution wid th ratioOrdered By: Roman Faith on 06-29-2023 Erythrocyte distribution width (RBC) [Ratio] 15.7 % 11.6-14.6 [facility] Erythrocyte distribution wid th standard deviationOrdered By: Roman Faith on 06-29-2023 Erythrocyte distribution width (RBC) [Entitic vol] 46.2 fL 35.1-43.9 [facility] Erythrocyte sedimentation ra teOrdered By: Roman Faith on 06-29-2023 ESR (Bld) [Velocity] 39 mm/h 0-30 [facility] Hematocrit Auto (Bld) [Volum e fraction]Ordered By: Roman Faith on 06-29-2023 Hematocrit (Bld) [Volume fraction] 32.0 % 37-47 [facility] Laboratory - Chemistry and C hemistry - challengeOrdered By: Roman Faith on 06-29-2023 CO2 [Moles/Vol] 28.0 mmol/L 21.0-32.0 [facility] Urea nitrogen/Creatinine [Mass ratio] 23.5 mg/mg 10-20 [facility] Laboratory - Hematology and Cell countsOrdered By: Romna Faith on 06-29-2023 MCH (RBC) [Entitic mass] 24.1 pg 27.0-32.0 [facility] MCHC (RBC) [Mass/Vol] 29.7 g/dL 32-36 [facility] Platelet mean volume (Bld) [Entitic vol] 8.1 fL 6.2-12.0 [facility] Platelets (Bld) [#/Vol] 424 10*3/uL 150-450 [facility] No Panel InformationOrdered By: Roman Faith on 06-29-2023 Estimated Creatinine Clearance Calc 40.96 ml/min [facility] Estimated GFR (MDRD) Amer 116 mL/min >60 [facility] Comment on above: GFR Calc Estimated GFR (MDRD) Non-Af Amer 95 mL/min >60 [facility] Comment on above: Non- GFR Calc RBC Auto (Bld) [#/Vol]Ordere d By: Roman Faith on 06-29-2023 RBC (Bld) [#/Vol] 3.95 10*6/uL 4.2-5.4 [facility] Serum or plasma calcium surjit urement (mass/volume)Ordered By: Roman Faith on 06-29-2023 Calcium [Mass/Vol] 10.1 mg/dL 8.5-10.1 [facility] Serum or plasma creatinine m easurement (mass/volume)Ordered By: Roman Faith on 06-29-2023 Creatinine [Mass/Vol] 0.64 mg/dL 0.55-1.02 [facility] Comment on above: The validity of the calculated GFR & GFRAA in patients over 70 years has not been determined. Clinical correlation is essential. Serum or plasma trough vanco mycin levelOrdered By: Roman aFith on 06-29-2023 Vancomycin trough [Mass/Vol] 14.9 ug/mL 5.0-15.0 [facility] Comment on above: VANCOMYCIN STANDARED DRUG THERAPY TROUGH LEVEL: 5.0 - 15.0 mg/L VANCOMYCIN HIGH INTENSITY THERAPY TROUGH LEVEL: 15.0 - 20.0 mg/L High Intensity therapy recommended for serious lifethreatening infections include:- Rhdwibrfma-Dhpfxpqzlhuo-Rcmpvzvlk (Ventilator/Healtcare Associated)-Sepsis PLEASE CONTACT PHARMACY SERVICES (#[id number]) FOR INTERPRETATIONOF RESULTS. Serum or plasma urea nitroge n measurement (mass/volume)Ordered By: Roman Faith on 06-29-2023 Urea nitrogen [Mass/Vol] 15 mg/dL 7-18 [facility] Thin prep Papanicolaou smear with manual screeningOrdered By: Roman Faith on 06-29-2023 Thin prep Papanicolaou smear with manual screening 4 5-15 [facility] Vancomycin, Trough Levelon 0 06-29-2023 VANCO, TROUGH 14.9 ug/mL Normal 5.0-15.0 [facility] Comment on above: Order Comment: 1300 Result Comment: VANC OMYCIN STANDARED DRUG THERAPY TROUGH LEVEL: 5.0 - 15.0 mg/LVANCOMYCIN HIGH INTENSITY THERAPY TROUGH LEVEL: 15.0 - 20.0 mg/LHigh Intensity therapy recommended for serious lifethreatening infections include:- Deanvpmjsc-Evmswufqvlou-Retkmcige (Ventilator/Healtcare Associated)-SepsisPLEASE CONTACT PHARMACY SERVICES (#[id number]) FOR INTERPRETATIONOF RESULTS. Performed By: #### L 100.0500, L101.9900, L501.8820, L500.2500 ####[facility] [address] [place], [place], [id number] Basic Metabolic Profile (BMP )on 06-22-2023 BUN/CRE 31.5 RATIO High 10-20 [facility] Comment on above: Order Comment: VANC MED TIME UNK Performed By: #### L 501.8820, L500.2500, L101.9900, L100.0500 ####[facility] [address] [place], [place], [id number] [place],Total 9.4 mg/dL Normal 8.5-10.1 [facility] Comment on above: Order Comment: VANC MED TIME UNK Performed By: #### L 501.8820, L500.2500, L101.9900, L100.0500 ####[facility] [address] [place], [place], [id number] Chloride [Moles/Vol] 107 mmol/L Normal 98-107 [facility] Comment on above: Order Comment: VANC MED TIME UNK Performed By: #### L 501.8820, L500.2500, L101.9900, L100.0500 ####[facility] [address] [place], [address] CO2 [Moles/Vol] 27.0 mmol/L Normal 21.0-32.0 [facility] Comment on above: Order Comment: VANC MED TIME UNK Performed By: #### L 501.8820, L500.2500, L101.9900, L100.0500 ####[facility] [address] [place], [address] Creatinine [Mass/Vol] 0.70 mg/dL Normal 0.55-1.02 [facility] Comment on above: Order Comment: VANC MED TIME UNK Result Comment: The validity of the calculated GFR GFRAA in patients over70 years has not been determined. Clinical correlation isessential. Performed By: #### L 501.8820, L500.2500, L101.9900, L100.0500 ####[facility] [address] [place], [address] EST GFR - AA 104 mL/min Normal >60 [facility] Comment on above: Order Comment: VANC MED TIME UNK Result Comment: Afri can [place] GFR Calc Performed By: #### L 501.8820, L500.2500, L101.9900, L100.0500 ####[facility] [address] [place], [address] GAP 4 Low 5-15 [facility] Comment on above: Order Comment: VANC MED TIME UNK Performed By: #### L 501.8820, L500.2500, L101.9900, L100.0500 ####[facility] [address] [place], [address] GFR/1.73 sq M.predicted among non-blacks MDRD (S/P/Bld) [Vol rate/Area] 86 mL/min/{1.73_m2} Normal >60 [facility] Comment on above: Order Comment: VANC MED TIME UNK Result Comment: Non- GFR Calc Performed By: #### L 501.8820, L500.2500, L101.9900, L100.0500 ####[facility] [address] [place], [address] Glucose [Mass/Vol] 88 mg/dL Normal 74-106 [facility] Comment on above: Order Comment: [facility] MED TIME UNK Performed By: #### L 501.8820, L500.2500, L101.9900, L100.0500 ####[facility] [address] [place], [address] Potassium [Moles/Vol] 4.0 mmol/L Normal 3.5-5.1 [facility] Comment on above: Order Comment: [facility] MED TIME UNK Performed By: #### L 501.8820, L500.2500, L101.9900, L100.0500 ####[facility] [address] [place], [address] Sodium [Moles/Vol] 138 mmol/L Normal 136-145 [facility] Comment on above: Order Comment: VANC MED TIME UNK Performed By: #### L 501.8820, L500.2500, L101.9900, L100.0500 ####[facility] [address] [place], [address] Urea nitrogen [Mass/Vol] 22 mg/dL High 7-18 [facility] Comment on above: Order Comment: VANC MED TIME UNK Performed By: #### L 501.8820, L500.2500, L101.9900, L100.0500 ####[facility] [address] [place], [address] Basophil percentageOrdered B y: Roman Faith on 06-22-2023 Chloride [Moles/Vol] 107 mmol/L 98-107 [facility] Glucose [Mass/Vol] 88 mg/dL 74-106 [facility] Hemoglobin (Bld) [Mass/Vol] 8.9 g/dL 12.0-15.0 [facility] Potassium [Moles/Vol] 4.0 mmol/L 3.5-5.1 [facility] Sodium [Moles/Vol] 138 mmol/L 136-145 [facility] WBC (Bld) [#/Vol] 10.7 10*3/uL 4.4-11.0 [facility] CBC-Complete Blood Cnt No Di ffon 06-22-2023 Erythrocyte distribution width (RBC) [Ratio] 16.0 % High 11.6-14.6 [facility] Comment on above: Performed By: #### L 501.8820, L500.2500, L101.9900, L100.0500 ####[facility] [facility] [address] [place], [address] Hematocrit (Bld) [Volume fraction] 29.3 % Low 37-47 [facility] Comment on above: Performed By: #### L 501.8820, L500.2500, L101.9900, L100.0500 ####[facility] [address] [place], [address] Hemoglobin (Bld) [Mass/Vol] 8.9 g/dL Low 12.0-15.0 [facility] Comment on above: Performed By: #### L 501.8820, L500.2500, L101.9900, L100.0500 ####[facility] [address] [place], [address] MCH (RBC) [Entitic mass] 24.5 pg Low 27.0-32.0 [facility] Comment on above: Performed By: #### L 501.8820, L500.2500, L101.9900, L100.0500 ####[facility] [address] [place], [address] MCHC (RBC) [Mass/Vol] 30.4 g/dL Low 32-36 [facility] Comment on above: Performed By: #### L 501.8820, L500.2500, L101.9900, L100.0500 ####[facility] [address] [place], [address] MCV (RBC) [Entitic vol] 80.5 fL Low 81-99 [facility] Comment on above: Performed By: #### L 501.8820, L500.2500, L101.9900, L100.0500 ####[facility] [address] [place], [address] Platelet mean volume (Bld) [Entitic vol] 8.2 fL Normal 6.2-12.0 [facility] Comment on above: Performed By: #### L 501.8820, L500.2500, L101.9900, L100.0500 ####[facility] [address] [place], [address] Platelets (Bld) [#/Vol] 485 10*3/uL High 150-450 [facility] Comment on above: Performed By: #### L 501.8820, L500.2500, L101.9900, L100.0500 ####[facility] [address] [place], [address] RBC (Bld) [#/Vol] 3.64 10*6/uL Low 4.2-5.4 [facility] Comment on above: Performed By: #### L 501.8820, L500.2500, L101.9900, L100.0500 ####[facility] [address] [place], [address] RDW SD 46.8 fl High 35.1-43.9 [facility] Comment on above: Performed By: #### L 501.8820, L500.2500, L101.9900, L100.0500 ####[facility] [address] [place], [address] WBC (Bld) [#/Vol] 10.7 10*3/uL Normal 4.4-11.0 [facility] Comment on above: Performed By: #### L 501.8820, L500.2500, L101.9900, L100.0500 ####[facility] [address] [place], [place], [address] Determination of erythrocyte mean corpuscular volume (MCV)Ordered By: Roman Faith on 06-22-2023 MCV (RBC) [Entitic vol] 80.5 fL 81-99 [facility] ESRon 06-22-2023 Erythrocyte Sed Rate 38 mm/hr High 0-30 [facility] ([place]) Comment on above: Performed By: #### E SR #### [address] [address] Erythrocyte Sed Rateon 06-21 SED RATE 38 mm/hr High 0-30 [facility] Comment on above: Result Comment: TESTING PERFORMED AT [facility]. ORIGINAL REPORT ON FILE IN LAB CONTAINS ADDITIONAL TEST SITE INFORMATION. ____ Performed By: #### L 501.8820, L500.2500, L101.9900, L100.0500 ####[facility] [address] [place], [place], [id number] Erythrocyte distribution wid th ratioOrdered By: Roman Faith on 06-22-2023 Erythrocyte distribution width (RBC) [Ratio] 16.0 % 11.6-14.6 [facility] Erythrocyte distribution wid th standard deviationOrdered By: Roman Faith on 06-22-2023 Erythrocyte distribution width (RBC) [Entitic vol] 46.8 fL 35.1-43.9 [facility] Erythrocyte sedimentation ra teOrdered By: Roman Faith on 06-22-2023 ESR (Bld) [Velocity] 38 mm/h 0-30 [facility] Comment on above: TESTING PERFORMED AT [facility]. ORIGINAL REPORT ON FILE IN LAB CONTAINS ADDITIONAL TEST SITE INFORMATION. ____ Hematocrit Auto (Bld) [Volum e fraction]Ordered By: Roman Faith on 06-22-2023 Hematocrit (Bld) [Volume fraction] 29.3 % 37-47 [facility] LABORATORYOrdered By: Gunnar Levin on 06-22-2023 ESR Photometric method (Bld) [Velocity] 38 mm/hr High 0 - 30 mm/hr AO Man Heme SS Laboratory - Chemistry and C hemistry - challengeOrdered By: Roman Faith on 06-22-2023 CO2 [Moles/Vol] 27.0 mmol/L 21.0-32.0 [facility] Urea nitrogen/Creatinine [Mass ratio] 31.5 mg/mg 10-20 [facility] Laboratory - Hematology and Cell countsOrdered By: Roman Faith on 06-22-2023 MCH (RBC) [Entitic mass] 24.5 pg 27.0-32.0 [facility] MCHC (RBC) [Mass/Vol] 30.4 g/dL 32-36 [facility] Platelet mean volume (Bld) [Entitic vol] 8.2 fL 6.2-12.0 [facility] Platelets (Bld) [#/Vol] 485 10*3/uL 150-450 [facility] No Panel InformationOrdered By: Roman Faith on 06-22-2023 Estimated GFR (MDRD) Amer 104 mL/min >60 [facility] Comment on above: GFR Calc Estimated GFR (MDRD) Non-Af Amer 86 mL/min >60 [facility] Comment on above: Non- GFR Calc RBC Auto (Bld) [#/Vol]Ordere d By: Roman Faith on 06-22-2023 RBC (Bld) [#/Vol] 3.64 10*6/uL 4.2-5.4 [facility] er Serum or plasma calcium surjit urement (mass/volume)Ordered By: Roman Faith on 06-22-2023 Calcium [Mass/Vol] 9.4 mg/dL 8.5-10.1 [facility] Serum or plasma creatinine m easurement (mass/volume)Ordered By: Roman Faith on 06-22-2023 Creatinine [Mass/Vol] 0.70 mg/dL 0.55-1.02 [facility] Comment on above: The validity of the calculated GFR & GFRAA in patients over 70 years has not been determined. Clinical correlation is essential. Serum or plasma trough vanco mycin levelOrdered By: Roman Faith on 06-22-2023 Vancomycin trough [Mass/Vol] 13.9 ug/mL 5.0-15.0 [facility] Comment on above: VANCOMYCIN STANDARED DRUG THERAPY TROUGH LEVEL: 5.0 - 15.0 mg/L VANCOMYCIN HIGH INTENSITY THERAPY TROUGH LEVEL: 15.0 - 20.0 mg/L High Intensity therapy recommended for serious lifethreatening infections include:- Kkbkczswuv-Svnkfvcpblcv-Zzsuwnquq (Ventilator/[employer])-Sepsis PLEASE CONTACT PHARMACY SERVICES (#6510) FOR INTERPRETATIONOF RESULTS. Serum or plasma urea nitroge n measurement (mass/volume)Ordered By: Roman Faith on 06-22-2023 Urea nitrogen [Mass/Vol] 22 mg/dL 7-18 [facility] Thin prep Papanicolaou smear with manual screeningOrdered By: Roman Faith on 06-22-2023 Thin prep Papanicolaou smear with manual screening 4 5-15 [facility] Vancomycin, Trough Levelon 0 06-22-2023 VANCO, TROUGH 13.9 ug/mL Normal 5.0-15.0 [facility] Comment on above: Order Comment: VANC MED TIME [id number] Result Comment: VANC OMYCIN STANDARED DRUG THERAPY TROUGH LEVEL: 5.0 - 15.0 mg/LVANCOMYCIN HIGH INTENSITY THERAPY TROUGH LEVEL: 15.0 - 20.0 mg/LHigh Intensity therapy recommended for serious lifethreatening infections include:- Milvesdlyg-Qsxmrkmibsfi-Ewelroccu (Ventilator/Healtcare Associated)-SepsisPLEASE CONTACT PHARMACY SERVICES (#5902) FOR INTERPRETATIONOF RESULTS. Performed By: #### L 501.8820, L500.2500, L101.9900, L100.0500 ####[facility] [address] [place], [address] Basic Metabolic Profile (BMP )on 06-21-2023 BUN Normal 7-18 [facility] Comment on above: Result Comment: @PAT IENT WILL BE DRAWN AT LATER DATE. PER ONC NURSE Performed By: #### L 101.9900, L100.0500, L500.2500 ####[facility] [address] [place], [address] BUN/CRE Normal 10-20 [facility] Comment on above: Result Comment: @PAT IENT WILL BE DRAWN AT LATER DATE. PER ONC NURSE Performed By: #### L 101.9900, L100.0500, L500.2500 ####[facility] [address] [place], [address] CA,Total Normal 8.5-10.1 [facility] Comment on above: Result Comment: @PAT IENT WILL BE DRAWN AT LATER DATE. PER ONC NURSE Performed By: #### L 101.9900, L100.0500, L500.2500 ####[facility] [address] [place], [address] CL Normal 98-107 [facility] Comment on above: Result Comment: @PAT IENT WILL BE DRAWN AT LATER DATE. PER ONC NURSE Performed By: #### L 101.9900, L100.0500, L500.2500 ####[facility] [address] [place], [address] CO2 Normal 21.0-32.0 [facility] Comment on above: Result Comment: @PAT IENT WILL BE DRAWN AT LATER DATE. PER ONC NURSE Performed By: #### L 101.9900, L100.0500, L500.2500 ####[facility] [address] [place], [address] CREAT,SERUM Normal 0.55-1.02 [facility] Comment on above: Result Comment: @PAT IENT WILL BE DRAWN AT LATER DATE. PER ONC NURSE Performed By: #### L 101.9900, L100.0500, L500.2500 ####[facility] [address] [place], [address] EST GFR Normal >60 [facility] Comment on above: Result Comment: @PAT IENT WILL BE DRAWN AT LATER DATE. PER ONC NURSE Performed By: #### L 101.9900, L100.0500, L500.2500 ####[facility] [address] [place], [address] EST GFR - AA Normal >60 [facility] Comment on above: Result Comment: @PAT IENT WILL BE DRAWN AT LATER DATE. PER ONC NURSE Performed By: #### L 101.9900, L100.0500, L500.2500 ####[facility] [address] [place], [address] GAP Normal 5-15 [facility] Comment on above: Result Comment: @PAT IENT WILL BE DRAWN AT LATER DATE. PER ONC NURSE Performed By: #### L 101.9900, L100.0500, L500.2500 ####[facility] [address] [place], [address] GLU Normal 74-106 [facility] Comment on above: Result Comment: @PAT IENT WILL BE DRAWN AT LATER DATE. PER ONC NURSE Performed By: #### L 101.9900, L100.0500, L500.2500 ####[facility] [address] [place], [address] Potassium Normal 3.5-5.1 [facility] Comment on above: Result Comment: @PAT IENT WILL BE DRAWN AT LATER DATE. PER ONC NURSE Performed By: #### L 101.9900, L100.0500, L500.2500 ####[facility] [address] [place], [address] Basic Metabolic Profile (BMP) Normal 136-145 [facility] Comment on above: Result Comment: @PAT IENT WILL BE DRAWN AT LATER DATE. PER ONC NURSE Performed By: #### L 101.9900, L100.0500, L500.2500 ####[facility] [address] [place], [address] CBC-Complete Blood Cnt No Di ffon 06-21-2023 HCT Normal 37-47 [facility] Comment on above: Result Comment: @PAT IENT WILL BE DRAWN AT LATER DATE. PER ONC NURSE Performed By: #### L 101.9900, L100.0500, L500.2500 ####[facility] [address] [place], [address] HGB Normal 12.0-15.0 [facility] Comment on above: Result Comment: @PAT IENT WILL BE DRAWN AT LATER DATE. PER ONC NURSE Performed By: #### L 101.9900, L100.0500, L500.2500 ####[facility] [address] [place], [address] MCH Normal 27.0-32.0 [facility] Comment on above: Result Comment: @PAT IENT WILL BE DRAWN AT LATER DATE. PER ONC NURSE Performed By: #### L 101.9900, L100.0500, L500.2500 ####[facility] [address] [place], [address] MCHC Normal 32-36 [facility] Comment on above: Result Comment: @PAT IENT WILL BE DRAWN AT LATER DATE. PER ONC NURSE Performed By: #### L 101.9900, L100.0500, L500.2500 ####[facility] [address] [place], [address] MCV Normal 81-99 [facility] Comment on above: Result Comment: @PAT IENT WILL BE DRAWN AT LATER DATE. PER ONC NURSE Performed By: #### L 101.9900, L100.0500, L500.2500 ####[facility] [address] [place], [address] PLT Normal 150-450 [facility] Comment on above: Result Comment: @PAT IENT WILL BE DRAWN AT LATER DATE. PER ONC NURSE Performed By: #### L 101.9900, L100.0500, L500.2500 ####[facility] [address] [place], [address] RBC Normal 4.2-5.4 [facility] Comment on above: Result Comment: @PAT IENT WILL BE DRAWN AT LATER DATE. PER ONC NURSE Performed By: #### L 101.9900, L100.0500, L500.2500 ####[facility] [address] [place], [address] RDW CV Normal 11.6-14.6 [facility] Comment on above: Result Comment: @PAT IENT WILL BE DRAWN AT LATER DATE. PER ONC NURSE Performed By: #### L 101.9900, L100.0500, L500.2500 ####[facility] [address] [place], [address] RDW SD Normal 35.1-43.9 [facility] Comment on above: Result Comment: @PAT IENT WILL BE DRAWN AT LATER DATE. PER ONC NURSE Performed By: #### L 101.9900, L100.0500, L500.2500 ####[facility] [address] [place], [address] WBC Normal 4.4-11.0 [facility] Comment on above: Result Comment: @PAT IENT WILL BE DRAWN AT LATER DATE. PER ONC NURSE Performed By: #### L 101.9900, L100.0500, L500.2500 ####[facility] [address] [place], [address] Erythrocyte Sed Rateon 06-20 SED RATE Normal 0-30 [facility] Comment on above: Result Comment: @PAT IENT WILL BE DRAWN AT LATER DATE. PER ONC NURSE Performed By: #### L 101.9900, L100.0500, L500.2500 ####[facility] [address] [place], [address] Basic Metabolic Profile (BMP )on 06-14-2023 BUN/CRE 26.9 RATIO High 10-20 [facility] Comment on above: Order Comment: VANC Performed By: #### L 101.9900, L500.2500, L501.8820, L100.0500 ####[facility] [address] [place], [address] CA,Total 9.7 mg/dL Normal 8.5-10.1 [facility] Comment on above: Order Comment: VANC Performed By: #### L 101.9900, L500.2500, L501.8820, L100.0500 ####[facility] [address] [place], [address] Chloride [Moles/Vol] 105 mmol/L Normal 98-107 [facility] Comment on above: Order Comment: VANC Performed By: #### L 101.9900, L500.2500, L501.8820, L100.0500 ####[facility] [address] [place], [address] CO2 [Moles/Vol] 28.0 mmol/L Normal 21.0-32.0 [facility] Comment on above: Order Comment: VANC Performed By: #### L 101.9900, L500.2500, L501.8820, L100.0500 ####[facility] [address] [place], [address] Creatinine [Mass/Vol] 0.60 mg/dL Normal 0.55-1.02 [facility] Comment on above: Order Comment: VANC Result Comment: The validity of the calculated GFR GFRAA in patients over70 years has not been determined. Clinical correlation isessential. Performed By: #### L 101.9900, L500.2500, L501.8820, L100.0500 ####[facility] [address] [place], [address] EST GFR - AA 125 mL/min Normal >60 [facility] Comment on above: Order Comment: VANC Result Comment: Afri can [place] GFR Calc Performed By: #### L 101.9900, L500.2500, L501.8820, L100.0500 ####[facility] [address] [place], [address] GAP 8 Normal 5-15 [facility] Comment on above: Order Comment: VANC Performed By: #### L 101.9900, L500.2500, L501.8820, L100.0500 ####[facility] [address] [place], [address] GFR/1.73 sq M.predicted among non-blacks MDRD (S/P/Bld) [Vol rate/Area] 103 mL/min/{1.73_m2} Normal >60 [facility] Comment on above: Order Comment: VANC Result Comment: Non- GFR Calc Performed By: #### L 101.9900, L500.2500, L501.8820, L100.0500 ####[facility] [address] [place], [address] Glucose [Mass/Vol] 111 mg/dL High 74-106 [facility] Comment on above: Order Comment: VANC Result Comment: Fast ing Glucose result from 100 to 125 mg/dLsuggests IMPAIRED HOMEOSTASIS per A.D.A. criteria. Performed By: #### L 101.9900, L500.2500, L501.8820, L100.0500 ####[facility] [address] [place], [address] Potassium [Moles/Vol] 4.3 mmol/L Normal 3.5-5.1 [facility] Comment on above: Order Comment: VANC Performed By: #### L 101.9900, L500.2500, L501.8820, L100.0500 ####[facility] [address] [place], [address] Sodium [Moles/Vol] 141 mmol/L Normal 136-145 [facility] Comment on above: Order Comment: VANC Performed By: #### L 101.9900, L500.2500, L501.8820, L100.0500 ####[facility] [address] [place], [address] Urea nitrogen [Mass/Vol] 16 mg/dL Normal 7-18 [facility] Comment on above: Order Comment: VANC Performed By: #### L 101.9900, L500.2500, L501.8820, L100.0500 ####[facility] [address] [place], [address] Basophil percentageOrdered B y: Roman Faith on 06-14-2023 Chloride [Moles/Vol] 105 mmol/L 98-107 [facility] Glucose [Mass/Vol] 111 mg/dL 74-106 [facility] Comment on above: Fasting Glucose resu lt from 100 to 125 mg/dL suggests IMPAIRED HOMEOSTASIS per A.D.A. criteria. Hemoglobin (Bld) [Mass/Vol] 8.2 g/dL 12.0-15.0 [facility] Potassium [Moles/Vol] 4.3 mmol/L 3.5-5.1 [facility] Sodium [Moles/Vol] 141 mmol/L 136-145 [facility] WBC (Bld) [#/Vol] 16.3 10*3/uL 4.4-11.0 [facility] CBC-Complete Blood Cnt No Di ffon 06-14-2023 Erythrocyte distribution width (RBC) [Ratio] 15.5 % High 11.6-14.6 [facility] Comment on above: Performed By: #### L 101.9900, L500.2500, L501.8820, L100.0500 ####[facility] [address] [place], [address] Hematocrit (Bld) [Volume fraction] 26.8 % Low 37-47 [facility] Comment on above: Performed By: #### L 101.9900, L500.2500, L501.8820, L100.0500 ####[facility] [address] [place], [address] Hemoglobin (Bld) [Mass/Vol] 8.2 g/dL Low 12.0-15.0 [facility] Comment on above: Performed By: #### L 101.9900, L500.2500, L501.8820, L100.0500 ####[facility] [address] [place], [address] MCH (RBC) [Entitic mass] 24.6 pg Low 27.0-32.0 [facility] Comment on above: Performed By: #### L 101.9900, L500.2500, L501.8820, L100.0500 ####[facility] [address] [place], [address] MCHC (RBC) [Mass/Vol] 30.6 g/dL Low 32-36 [facility] Comment on above: Performed By: #### L 101.9900, L500.2500, L501.8820, L100.0500 ####[facility] [address] [place], [address] MCV (RBC) [Entitic vol] 80.5 fL Low 81-99 [facility] Comment on above: Performed By: #### L 101.9900, L500.2500, L501.8820, L100.0500 ####[facility] [address] [place], [address] Platelet mean volume (Bld) [Entitic vol] 8.3 fL Normal 6.2-12.0 [facility] Comment on above: Performed By: #### L 101.9900, L500.2500, L501.8820, L100.0500 ####[facility] [address] [place], [address] Platelets (Bld) [#/Vol] 347 10*3/uL Normal 150-450 [facility] Comment on above: Performed By: #### L 101.9900, L500.2500, L501.8820, L100.0500 ####[facility] [address] [place], [address] RBC (Bld) [#/Vol] 3.33 10*6/uL Low 4.2-5.4 [facility] Comment on above: Performed By: #### L 101.9900, L500.2500, L501.8820, L100.0500 ####[facility] [address] [place], [address] RDW SD 45.5 fl High 35.1-43.9 [facility] Comment on above: Performed By: #### L 101.9900, L500.2500, L501.8820, L100.0500 ####[facility] [address] [place], [address] WBC (Bld) [#/Vol] 16.3 10*3/uL High 4.4-11.0 [facility] Comment on above: Performed By: #### L 101.9900, L500.2500, L501.8820, L100.0500 ####[facility] [address] [place], [place], [address] Determination of erythrocyte mean corpuscular volume (MCV)Ordered By: Roman Faith on 06-14-2023 MCV (RBC) [Entitic vol] 80.5 fL 81-99 [facility] Erythrocyte Sed Rateon 06-13 SED RATE 41 mm/hr High 0-30 [facility] Comment on above: Performed By: #### L 101.9900, L500.2500, L501.8820, L100.0500 ####[facility] [address] [place], [place], [address] Erythrocyte distribution wid th ratioOrdered By: Roman Faith on 06-14-2023 Erythrocyte distribution width (RBC) [Ratio] 15.5 % 11.6-14.6 [facility] Erythrocyte distribution wid th standard deviationOrdered By: Roman Faith on 06-14-2023 Erythrocyte distribution width (RBC) [Entitic vol] 45.5 fL 35.1-43.9 [facility] Erythrocyte sedimentation ra teOrdered By: Roman Faith on 06-14-2023 ESR (Bld) [Velocity] 41 mm/h 0-30 [facility] Hematocrit Auto (Bld) [Volum e fraction]Ordered By: Roman Faith on 06-14-2023 Hematocrit (Bld) [Volume fraction] 26.8 % 37-47 [facility] Laboratory - Chemistry and C hemistry - challengeOrdered By: Roman Faith on 06-14-2023 CO2 [Moles/Vol] 28.0 mmol/L 21.0-32.0 [facility] Urea nitrogen/Creatinine [Mass ratio] 26.9 mg/mg 10-20 [facility] Laboratory - Hematology and Cell countsOrdered By: Roman Faith on 06-14-2023 MCH (RBC) [Entitic mass] 24.6 pg 27.0-32.0 [facility] MCHC (RBC) [Mass/Vol] 30.6 g/dL 32-36 [facility] Platelet mean volume (Bld) [Entitic vol] 8.3 fL 6.2-12.0 [facility] Platelets (Bld) [#/Vol] 347 10*3/uL 150-450 [facility] No Panel InformationOrdered By: Roman Faith on 06-14-2023 Estimated GFR (MDRD) Amer 125 mL/min >60 [facility] Comment on above: GFR Calc Estimated GFR (MDRD) Non-Af Amer 103 mL/min >60 [facility] Comment on above: Non- GFR Calc RBC Auto (Bld) [#/Vol]Ordere d By: Roman Faith on 06-14-2023 RBC (Bld) [#/Vol] 3.33 10*6/uL 4.2-5.4 [facility] Serum or plasma calcium surjit urement (mass/volume)Ordered By: Roman Faith on 06-14-2023 Calcium [Mass/Vol] 9.7 mg/dL 8.5-10.1 [facility] Serum or plasma creatinine m easurement (mass/volume)Ordered By: Roman Faith on 06-14-2023 Creatinine [Mass/Vol] 0.60 mg/dL 0.55-1.02 [facility] Comment on above: The validity of the calculated GFR & GFRAA in patients over 70 years has not been determined. Clinical correlation is essential. Serum or plasma trough vanco mycin levelOrdered By: Roman Faith on 06-14-2023 Vancomycin trough [Mass/Vol] 13.1 ug/mL 5.0-15.0 [facility] Comment on above: VANCOMYCIN STANDARED DRUG THERAPY TROUGH LEVEL: 5.0 - 15.0 mg/L VANCOMYCIN HIGH INTENSITY THERAPY TROUGH LEVEL: 15.0 - 20.0 mg/L High Intensity therapy recommended for serious lifethreatening infections include:- Dncxlnhzln-Vitjkbyiwuag-Hcezcwsix (Ventilator/Healtcare Associated)-Sepsis PLEASE CONTACT PHARMACY SERVICES (#9902) FOR INTERPRETATIONOF RESULTS. Serum or plasma urea nitroge n measurement (mass/volume)Ordered By: Roman Faith on 06-14-2023 Urea nitrogen [Mass/Vol] 16 mg/dL 7-18 [facility] Thin prep Papanicolaou smear with manual screeningOrdered By: Roman Faith on 06-14-2023 Thin prep Papanicolaou smear with manual screening 8 5-15 [facility] Vancomycin, Trough Levelon 0 06-14-2023 VANCO, TROUGH 13.1 ug/mL Normal 5.0-15.0 [facility] Comment on above: Order Comment: 1330 Result Comment: VANC OMYCIN STANDARED DRUG THERAPY TROUGH LEVEL: 5.0 - 15.0 mg/LVANCOMYCIN HIGH INTENSITY THERAPY TROUGH LEVEL: 15.0 - 20.0 mg/LHigh Intensity therapy recommended for serious lifethreatening infections include:- Byktzclnfn-Osvotgkvqjib-Zolwknwjx (Ventilator/Healtcare Associated)-SepsisPLEASE CONTACT PHARMACY SERVICES (#4030) FOR INTERPRETATIONOF RESULTS. Performed By: #### L 101.9900, L500.2500, L501.8820, L100.0500 ####[facility] [id number] [place], [address] 36on 06-11-2023 36 S: Patient's spouse- Jose Luis spoke with [facility] nurse regarding unable to care for patient's picc line and antibiotic infusion at home. B: Onset of symptoms/concern yesterday. A: Jose Luis states patient was discharged from [facility] yesterday with picc line for IV [...] get the antibiotic. R: Spouse provided with [employer] [facility] [place] benefits [facility] . Patient's spouse transferred to them for further assistance. No further needs at this time. Reason for Disposition General information question, no triage required and triager able to answer question Protocols used: Information Only Call - [facility] NOTEon 06-10-2023 ED NOTE HNO ID: [id number] Author: GOSIA LANGSTON, RN Service: ? Author Type: Registered Nurse Type: ED Notes Filed: 06/10/2023 23:09 Note Text: PICC line flushed and pulled back, no complications. Education on IV vancomycin administration provided to daughter. [facility] ED NOTE HNO ID: [id number] Author: REE GONZALEZ RN Service: ? Author Type: Registered Nurse Type: ED Notes Filed: 06/10/2023 18:51 Note Text: Family cannot care for hussein [facility] ED NOTE HNO ID: [id number] Author: REE GONZALEZ RN Service: ? Author Type: Registered Nurse Type: ED Notes Filed: 06/10/2023 18:41 Note Text: Picc line was wet after showering [facility] ED PROV NOTEon 06-10-2023 ED PROV NOTE HNO ID: [id number] Author: LEA SCOTT PA-C Service: ? Author Type: Physician Ingot Stripper Type: ED Provider Notes Filed: 06/10/2023 22:37 [...] interpretation(s) Proced (more content not included)... Normal [facility] ED Triage Noteon 06-10-2023 ED Triage Note HNO ID: [id number] Author: MELISSA MACK APRN.MANAGER PLAY Service: ? Author Type: Nurse Practitioner Type: [...] placed in a facility. SIGNATURE: Melissa Mack APRN.MANAGER PLAY Normal [facility] Basic metabolic 2000 panelon 06-09-2023 Anion gap [Moles/Vol] mmol/L Low 5-16 [facility] Comment on above: Order Comment: Speci men Type: BLOOD SPECIMENOrdering Facility: [facility] Address: [address] [place] [address] Performed By: #### 2 4321-2 ####[facility] LABORATORYCLIA [id number] [place] [address] [place] Calcium [Mass/Vol] 8.9 mg/dL Normal 8.5-10.5 [facility] Comment on above: Order Comment: Speci men Type: BLOOD SPECIMENOrdering Facility: [facility] Address: [address] [place] [address] Performed By: #### 2 4321-2 ####[facility] LABORATORYCLIA [id number] [place] [address] [place] Chloride [Moles/Vol] 109 mmol/L High 98-107 [facility] Comment on above: Order Comment: Speci men Type: BLOOD SPECIMENOrdering Facility: [facility] Address: [address] [place] [address] Performed By: #### 2 4321-2 ####[facility] LABORATORYCLIA [id number] [place] [address] [place] CO2 [Moles/Vol] 26 mmol/L Normal 21-32 [facility] Comment on above: Order Comment: Speci men Type: BLOOD SPECIMENOrdering Facility: [facility] Address: [address] [place] [address] Performed By: #### 2 4321-2 ####[facility] LABORATORYCLIA [id number] [place] [address] [place] Creatinine [Mass/Vol] 0.59 mg/dL Normal 0.51-0.95 [facility] Comment on above: Order Comment: Speci men Type: BLOOD SPECIMENOrdering Facility: [facility] Address: [address] [place] [address] Result Comment: Caron ents receiving either N-Acetylcysteine (NAC) or Metamizole prior to venipuncture, may have falsely depressed results. Performed By: #### 2 4321-2 ####[facility] LABORATORYCLIA [id number] [place] [id number] [place] Creatinine and Glomerular filtration rate.predicted panel (S/P/Bld) 92 mL/min/1.73m??? Normal >=60 [facility] Comment on above: Order Comment: Anny hong Type: BLOOD SPECIMENOrdering Facility: [facility] Address: [address] [place] [address] Result Comment: Neda mated Glomerular Filtration Rate [...] actual GFR. Performed By: #### 2 4321-2 ####[facility] LABORATORYCLIA [id number] [place] [address] [place] Glucose [Mass/Vol] 110 mg/dL High 70-100 [facility] Comment on above: Order Comment: Anny hong Type: BLOOD SPECIMENOrdering Facility: [facility] Address: [address] [place] [address] Result Comment: The [place] Diabetes Association (ADA) provides guidance for cutoff [...] Standards of Medical Care in Diabetes 2016, [place] [employer] Association. Diabetes Care. 2016.39(Suppl 1). Results may be falsely elevated after the administration of Sulfapyridine. Results may be falsely depressed after the administration of Sulfasalazine. Performed By: #### 2 4321-2 ####[facility] LABORATORYCLIA [id number] [address] [place] Potassium [Moles/Vol] 4.7 mmol/L Normal 3.5-5.1 [facility] Comment on above: Order Comment: Speci men Type: BLOOD SPECIMENOrdering Facility: [facility] Address: [address] [place] [address] Performed By: #### 2 4321-2 ####[facility] LABORATORYCLIA [id number] [address] STATES OF [facility] Sodium [Moles/Vol] 137 mmol/L Normal 136-145 [facility] Comment on above: Order Comment: Speci men Type: BLOOD SPECIMENOrdering Facility: [facility] Address: [address] [place] [address] Performed By: #### 2 4321-2 ####[facility] LABORATORYCLIA [id number] [address] [place] Urea nitrogen [Mass/Vol] 24 mg/dL Normal 7-26 [facility] Comment on above: Order Comment: Speci men Type: BLOOD SPECIMENOrdering Facility: [facility] Address: [address] [place] [address] Performed By: #### 2 4321-2 ####[facility] LABORATORYCLIA [id number] [address] [place] CBC W Auto Differential pane l (Bld)on 06-09-2023 Basophils (Bld) [#/Vol] 10*3/uL Normal <0.11 [facility] Comment on above: Order Comment: Speci men Type: BLOOD SPECIMENOrdering Facility: [facility] Address: [address] [place] [address] Performed By: #### 5 7021-8 ####[facility] LABORATORYCLIA [id number] [address] STATES [facility] Basophils/100 WBC (Bld) 0.2 % Normal [facility] Comment on above: Order Comment: Speci men Type: BLOOD SPECIMENOrdering Facility: [facility] Address: [address] [place] [address] Performed By: #### 5 7021-8 ####[facility] LABORATORYCLIA [id number] [address] [place] Differential cell count method Nom (Bld) Auto Normal [facility] Comment on above: Order Comment: Speci men Type: BLOOD SPECIMENOrdering Facility: [facility] Address: [address] [place] [address] Performed By: #### 5 7021-8 ####[facility] LABORATORYCLIA [id number] [place] [address] [place] Eosinophils (Bld) [#/Vol] 0.09 10*3/uL Normal <0.46 [facility] Comment on above: Order Comment: Speci men Type: BLOOD SPECIMENOrdering Facility: [facility] Address: [address] [place] [address] Performed By: #### 5 7021-8 ####[facility] LABORATORYCLIA [id number] [address] Eosinophils/100 WBC (Bld) 0.7 % Normal [facility] Comment on above: Order Comment: Speci men Type: BLOOD SPECIMENOrdering Facility: [facility] Address: [address] [place] [address] Performed By: #### 5 7021-8 ####[facility] LABORATORYCLIA [id number] [address] [place] Erythrocyte distribution width (RBC) [Ratio] 15.2 % High 11.5-15.0 [facility] Comment on above: Order Comment: Speci men Type: BLOOD SPECIMENOrdering Facility: [facility] Address: [address] [place] [address] Performed By: #### 5 7021-8 ####[facility] LABORATORYCLIA [id number] [place] [address] [place] Hematocrit (Bld) [Volume fraction] 23.8 % Low 36.0-46.0 [facility] Comment on above: Order Comment: Speci men Type: BLOOD SPECIMENOrdering Facility: [facility] Address: [address] [place] [address] Performed By: #### 5 7021-8 ####[facility] LABORATORYCLIA [id number] [place] [address] [place] Hemoglobin (Bld) [Mass/Vol] 7.6 g/dL Low 11.5-15.5 [facility] Comment on above: Order Comment: Speci men Type: BLOOD SPECIMENOrdering Facility: [facility] Address: [address] [place] [address] Performed By: #### 5 7021-8 ####[facility] LABORATORYCLIA [id number] [place] [address] [place] Immature granulocytes (Bld) [#/Vol] 0.08 10*3/uL Normal <0.10 [facility] Comment on above: Order Comment: Speci men Type: BLOOD SPECIMENOrdering Facility: [facility] Address: [address] [place] [address] Performed By: #### 5 7021-8 ####[facility] LABORATORYCLIA [id number] [place] [address] [place] Immature granulocytes/100 WBC (Bld) 0.6 % Normal [facility] Comment on above: Order Comment: Speci men Type: BLOOD SPECIMENOrdering Facility: [facility] Address: [address] [place] [address] Performed By: #### 5 7021-8 ####[facility] LABORATORYCLIA [id number] [place] [address] [place] Lymphocytes (Bld) [#/Vol] 2.61 10*3/uL Normal 1.00-4.00 [facility] Comment on above: Order Comment: Speci men Type: BLOOD SPECIMENOrdering Facility: [facility] Address: [address] [place] [address] Performed By: #### 5 7021-8 ####[facility] LABORATORYCLIA [id number] [address] [place] Lymphocytes/100 WBC (Bld) 20.2 % Normal [facility] Comment on above: Order Comment: Speci men Type: BLOOD SPECIMENOrdering Facility: [facility] Address: [address] [place] [address] Performed By: #### 5 7021-8 ####[facility] LABORATORYCLIA [id number] [address] [place] MCH (RBC) [Entitic mass] 25.4 pg Low 26.0-34.0 [facility] Comment on above: Order Comment: Speci men Type: BLOOD SPECIMENOrdering Facility: [facility] Address: [address] [place] [address] Performed By: #### 5 7021-8 ####[facility] LABORATORYCLIA [id number] [address] [place] [facility] MCHC (RBC) [Mass/Vol] 31.9 g/dL Normal 30.5-36.0 [facility] Comment on above: Order Comment: Speci men Type: BLOOD SPECIMENOrdering Facility: [facility] Address: [address] [place] [address] Performed By: #### 5 7021-8 ####[facility] LABORATORYCLIA [id number] [address] [place] MCV (RBC) [Entitic vol] 79.6 fL Low 80.0-100.0 [facility] Comment on above: Order Comment: Speci men Type: BLOOD SPECIMENOrdering Facility: [facility] Address: [address] [place] [address] Performed By: #### 5 7021-8 ####[facility] LABORATORYCLIA [id number] [address] Monocytes (Bld) [#/Vol] 0.87 10*3/uL High <0.87 [facility] Comment on above: Order Comment: Speci men Type: BLOOD SPECIMENOrdering Facility: [facility] Address: [address] [place] [address] Performed By: #### 5 7021-8 ####[facility] LABORATORYCLIA [id number] [place] [id number] [place] Monocytes/100 WBC (Bld) 6.7 % Normal [facility] Comment on above: Order Comment: Speci men Type: BLOOD SPECIMENOrdering Facility: [facility] Address: [address] [place] [address] Performed By: #### 5 7021-8 ####[facility] LABORATORYCLIA [id number] [place] [address] [place] Neutrophils (Bld) [#/Vol] 9.25 10*3/uL High 1.45-7.50 [facility] Comment on above: Order Comment: Speci men Type: BLOOD SPECIMENOrdering Facility: [facility] Address: [address] [place] [address] Performed By: #### 5 7021-8 ####[facility] LABORATORYCLIA [id number] [place] [address] [place] Neutrophils/100 WBC (Bld) 71.6 % Normal [facility] Comment on above: Order Comment: Speci men Type: BLOOD SPECIMENOrdering Facility: [facility] Address: [address] [place] [address] Performed By: #### 5 7021-8 ####[facility] LABORATORYCLIA [id number] [place] [address] [place] Nucleated RBC (Bld) [#/Vol] 10*3/uL Normal <0.01 [facility] Comment on above: Order Comment: Speci men Type: BLOOD SPECIMENOrdering Facility: [facility] Address: [address] [place] [address] Performed By: #### 5 7021-8 ####[facility] LABORATORYCLIA [id number] [place] [address] [place] Nucleated RBC/100 WBC (Bld) [Ratio] 0.0 /100 WBC Normal [facility] Comment on above: Order Comment: Speci men Type: BLOOD SPECIMENOrdering Facility: [facility] Address: [address] [place] [address] Performed By: #### 5 7021-8 ####[facility] LABORATORYCLIA [id number] [place] [id number] [place] Platelet mean volume (Bld) [Entitic vol] 8.5 fL Low 9.0-12.7 [facility] Comment on above: Order Comment: Speci men Type: BLOOD SPECIMENOrdering Facility: [facility] Address: [address] [place] [address] Performed By: #### 5 7021-8 ####[facility] LABORATORYCLIA [id number] [place] [id number] [place] Platelets (Bld) [#/Vol] 347 10*3/uL Normal 150-400 [facility] Comment on above: Order Comment: Speci men Type: BLOOD SPECIMENOrdering Facility: [facility] Address: [address] [place] [address] Performed By: #### 5 7021-8 ####[facility] LABORATORYCLIA [id number] [place] [address] [place] RBC (Bld) [#/Vol] 2.99 10*6/uL Low 3.90-5.20 [facility] Comment on above: Order Comment: Speci men Type: BLOOD SPECIMENOrdering Facility: [facility] Address: [address] [place] [address] Performed By: #### 5 7021-8 ####[facility] LABORATORYCLIA [id number] [place] [id number] [place] WBC (Bld) [#/Vol] 12.92 10*3/uL High 3.70-11.00 [facility] Comment on above: Order Comment: Speci men Type: BLOOD SPECIMENOrdering Facility: [facility] Address: [address] [place] [address] Performed By: #### 5 7021-8 ####[facility] LABORATORYCLIA [id number] [address] CNDSon 06-09-2023 CNDS HNO ID: [id number] Author: YUVAL FOX MD Service: Hospital Medicine Author Type: Nurse Practitioner Type: Discharge Summary Filed: 06/10/2023 08:54 Note Text: Attestation signed by Yuval Fox MD at 06/10/2023 8:54 AM I have independently evaluated the patient and agree with the RADIO STATION MANAGER/PA?s discharge summary. I have independently evaluated the [...] Molina Faith MD Nurse Practitioner: [place], Teresa, GROUP ACCOUNT DIRECTOR.MANAGER PLAY REASON FOR HOSPITALIZATION: epidural abscess DIAGNOSIS: Principal [...] were made for home IV abx for [employer]. Lact BMP 06/08 with WNL renal function, [...] no vegetations. Patient is discharged home with [facility] in stable condition. Follow up with [...] and moist, appropriate (more content not included)... [facility] THERAPY NTon 06-09-2023 THERAPY NT HNO ID: [id number] Author: JENN BARRY COTA/L Service: ? Author Type: Test Conductor Type: Therapy (PT/OT/Speech/Resp) Filed: 06/09/2023 11:50 Note Text: Attestation signed by Latosha Purdy OTR/L at 06/09/2023 4:08 PM I reviewed and agree with the documentation corresponding to this therapy visit. SIGNATURE: SHREYA Stark DATE: June 09, 2023 TIME: 4:08 PM Occupational Therapy Treatment Summary SERVICE DATE: 06/09/2023 SERVICE TIME: 1115 to 1126 ROOM: [place] [address] OT 6 Clicks Score: 15 DISCHARGE RECOMMENDATIONS [...] Lines/Tubes/Drains, Bed/Chair Alarm Log roll, bed alarm, MODOC, delayed mental processing CURRENT HOSPITAL COURSE s/p [...] Deficits: Distractible, Divided Memory Deficits: Short Term, Director Of Home Care Hospice Executive Function Deficits: Sequencing, Judgement, Insight to Deficits, Problem Solving, Safety Awareness, Motor Planning THERAPY DIAGNOSIS Decreased activities of daily living (ADL) TREATMENT INTERVENTIONS Self Shelter Management (67191) Timed Code Treatment (minutes): 11 Skilled Treatment Time (minutes): 11 TRAINING AND EDUCATION PROVIDED Activity Adaptation/Compensatory Strategies, Altering Thinking Patterns, Assistive Device Use, Attention Diversion Techniques, Benefits of In-Hospital Mobility, Bed Mobility, Expected Functional Level, Lower Extremity Dressing, Role of Occupational Therapy, Precautions/Restrictions, Standing Balance to Improve [place] with ADLs/Self-Care THERAPEUTIC SKILLS USED Activity Dosing, [...] Grooming Minimal [place]ino (more content not included)... [facility] THERAPY NT HNO ID: [id number] Author: JUDE GAUTHIER PT Service: Physical Therapy Author Type: Support Merchandiser Type: Therapy (PT/OT/Speech/Resp) Filed: 06/09/2023 09:14 Note Text: Attestation signed by Jude Gauthier PT at 06/09/2023 9:14 AM I reviewed and agree with the documentation corresponding to this therapy visit. SIGNATURE: Jude Gauthier PT DATE: June 09, 2023 TIME: 9:14 AM Physical Therapy Treatment Summary SERVICE DATE: 06/09/2023 SERVICE TIME: 728 ROOM: [id number] PT 6 Clicks Score: 11 DISCHARGE RECOMMENDATIONS [...] Lines/Tubes/Drains, Bed/Chair Alarm Log roll, bed alarm, MODOC, delayed mental processing CURRENT HOSPITAL COURSE s/p [...] DIAGNOSIS Reduced mobility-other TREATMENT INTERVENTIONS Gait Training (86426) Timed Code Treatment (minutes): 24 Skilled Treatment [...] 2 Stairs (more content not included)... Normal [facility] Basic metabolic 2000 panelon 06-08-2023 Anion gap [Moles/Vol] 4 mmol/L Low 5-16 [facility] Comment on above: Order Comment: Speci men Type: BLOOD SPECIMENOrdering Facility: [facility] Address: [address] [place] [address] Performed By: #### 2 4321-2 ####[facility] LABORATORYCLIA [id number] [place] [address] [place] Calcium [Mass/Vol] 9.2 mg/dL Normal 8.5-10.5 [facility] Comment on above: Order Comment: Speci men Type: BLOOD SPECIMENOrdering Facility: [facility] Address: [address] [place] [address] Performed By: #### 2 4321-2 ####[facility] LABORATORYCLIA [id number] [place] [address] [place] Chloride [Moles/Vol] 108 mmol/L High 98-107 [facility] Comment on above: Order Comment: Speci men Type: BLOOD SPECIMENOrdering Facility: [facility] Address: [address] [place] [address] Performed By: #### 2 4321-2 ####[facility] LABORATORYCLIA [id number] [place] [id number] [place] CO2 [Moles/Vol] 27 mmol/L Normal 21-32 [facility] Comment on above: Order Comment: Speci men Type: BLOOD SPECIMENOrdering Facility: [facility] Address: [address] [place] [address] Performed By: #### 2 4321-2 ####[facility] LABORATORYCLIA [id number] [place] [address] [place] Creatinine [Mass/Vol] 0.67 mg/dL Normal 0.51-0.95 [facility] Comment on above: Order Comment: Speci men Type: BLOOD SPECIMENOrdering Facility: [facility] Address: [address] [place] [address] Result Comment: Caron ents receiving either N-Acetylcysteine (NAC) or Metamizole prior to venipuncture, may have falsely depressed results. Performed By: #### 2 4321-2 ####[facility] LABORATORYCLIA [id number] [place] [address] [place] Creatinine and Glomerular filtration rate.predicted panel (S/P/Bld) 89 mL/min/1.73m??? Normal >=60 [facility] Comment on above: Order Comment: Anny hong Type: BLOOD SPECIMENOrdering Facility: [facility] Address: [address] [place] [address] Result Comment: Neda mated Glomerular Filtration Rate [...] actual GFR. Performed By: #### 2 4321-2 ####[facility] LABORATORYCLIA [id number] [place] [address] [place] Glucose [Mass/Vol] 125 mg/dL High 70-100 [facility] Comment on above: Order Comment: Anny hong Type: BLOOD SPECIMENOrdering Facility: [facility] Address: [address] [place] [address] Result Comment: The [place] Diabetes Association (ADA) provides guidance for cutoff [...] Standards of Medical Care in Diabetes 2016, [place] [employer]. Diabetes Care. 2016.39(Suppl 1). Results may be falsely elevated after the administration of Sulfapyridine. Results may be falsely depressed after the administration of Sulfasalazine. Performed By: #### 2 4321-2 ####[facility] LABORATORYCLIA [id number] [place] [address] [place] Potassium [Moles/Vol] 4.6 mmol/L Normal 3.5-5.1 [facility] Comment on above: Order Comment: Speci men Type: BLOOD SPECIMENOrdering Facility: [facility] Address: [address] [place] [address] Performed By: #### 2 4321-2 ####[facility] LABORATORYCLIA [id number] [address] STATES OF [facility] Sodium [Moles/Vol] 139 mmol/L Normal 136-145 [facility] Comment on above: Order Comment: Speci men Type: BLOOD SPECIMENOrdering Facility: [facility] Address: [address] [place] [address] Performed By: #### 2 4321-2 ####[facility] LABORATORYCLIA [id number] [address] [place] Urea nitrogen [Mass/Vol] 22 mg/dL Normal 7-26 [facility] Comment on above: Order Comment: Speci men Type: BLOOD SPECIMENOrdering Facility: [facility] Address: [address] [place] [address] Performed By: #### 2 4321-2 ####[facility] LABORATORYCLIA [id number] [place] [id number] [place] CBC W Auto Differential pane l (Bld)on 06-08-2023 Basophils (Bld) [#/Vol] 0.03 10*3/uL Normal <0.11 [facility] Comment on above: Order Comment: Speci men Type: BLOOD SPECIMENOrdering Facility: [facility] Address: [address] [place] [address] Performed By: #### 5 7021-8 ####[facility] LABORATORYCLIA [id number] [place] [address] [place] Basophils/100 WBC (Bld) 0.2 % Normal [facility] Comment on above: Order Comment: Speci men Type: BLOOD SPECIMENOrdering Facility: [facility] Address: [facility] [place] [address] Performed By: #### 5 7021-8 ####[facility] LABORATORYCLIA [id number] [place] [address] [place] Differential cell count method Nom (Bld) Auto Normal [facility] Comment on above: Order Comment: Speci men Type: BLOOD SPECIMENOrdering Facility: [facility] Address: [address] [place] [address] Performed By: #### 5 7021-8 ####[facility] LABORATORYCLIA [id number] [place] [address] [place] Eosinophils (Bld) [#/Vol] 0.03 10*3/uL Normal <0.46 [facility] Comment on above: Order Comment: Speci men Type: BLOOD SPECIMENOrdering Facility: [facility] Address: [address] [place] [address] Performed By: #### 5 7021-8 ####[facility] LABORATORYCLIA [id number] [address] [place] Eosinophils/100 WBC (Bld) 0.2 % Normal [facility] Comment on above: Order Comment: Speci men Type: BLOOD SPECIMENOrdering Facility: [facility] Address: [address] [place] [address] Performed By: #### 5 7021-8 ####[facility] LABORATORYCLIA [id number] [place] [address] [place] Erythrocyte distribution width (RBC) [Ratio] 15.2 % High 11.5-15.0 [facility] Comment on above: Order Comment: Speci men Type: BLOOD SPECIMENOrdering Facility: [facility] Address: [address] [place] [address] Performed By: #### 5 7021-8 ####[facility] LABORATORYCLIA [id number] [place] [address] [place] Hematocrit (Bld) [Volume fraction] 25.9 % Low 36.0-46.0 [facility] Comment on above: Order Comment: Speci men Type: BLOOD SPECIMENOrdering Facility: [facility] Address: [address] [place] [address] Performed By: #### 5 7021-8 ####[facility] LABORATORYCLIA [id number] [place] [address] [place] Hemoglobin (Bld) [Mass/Vol] 8.1 g/dL Low 11.5-15.5 [facility] Comment on above: Order Comment: Speci men Type: BLOOD SPECIMENOrdering Facility: [facility] Address: [address] [place] [address] Performed By: #### 5 7021-8 ####[facility] LABORATORYCLIA [id number] [place] [address] [place] Immature granulocytes (Bld) [#/Vol] 0.18 10*3/uL High <0.10 [facility] Comment on above: Order Comment: Speci men Type: BLOOD SPECIMENOrdering Facility: [facility] Address: [address] [place] [address] Performed By: #### 5 7021-8 ####[facility] LABORATORYCLIA [id number] [place] [address] [place] Immature granulocytes/100 WBC (Bld) 1.1 % Normal [facility] Comment on above: Order Comment: Speci men Type: BLOOD SPECIMENOrdering Facility: [facility] Address: [address] [place] [address] Performed By: #### 5 7021-8 ####[facility] LABORATORYCLIA [id number] [place] [address] [place] Lymphocytes (Bld) [#/Vol] 2.34 10*3/uL Normal 1.00-4.00 [facility] Comment on above: Order Comment: Speci men Type: BLOOD SPECIMENOrdering Facility: [facility] Address: [address] [place] [address] Performed By: #### 5 7021-8 ####[facility] LABORATORYCLIA [id number] [address] [place] Lymphocytes/100 WBC (Bld) 13.9 % Normal [facility] Comment on above: Order Comment: Speci men Type: BLOOD SPECIMENOrdering Facility: [facility] Address: [address] [place] [address] Performed By: #### 5 7021-8 ####[facility] LABORATORYCLIA [id number] [place] [address] [place] MCH (RBC) [Entitic mass] 25.0 pg Low 26.0-34.0 [facility] Comment on above: Order Comment: Speci men Type: BLOOD SPECIMENOrdering Facility: [facility] Address: [address] [place] [address] Performed By: #### 5 7021-8 ####[facility] LABORATORYCLIA [id number] [address] [place] MCHC (RBC) [Mass/Vol] 31.3 g/dL Normal 30.5-36.0 [facility] Comment on above: Order Comment: Speci men Type: BLOOD SPECIMENOrdering Facility: [facility] Address: [address] [place] [address] Performed By: #### 5 7021-8 ####[facility] LABORATORYCLIA [id number] [place] [address] [place] MCV (RBC) [Entitic vol] 79.9 fL Low 80.0-100.0 [facility] Comment on above: Order Comment: Speci men Type: BLOOD SPECIMENOrdering Facility: [facility] Address: [address] [place] [address] Performed By: #### 5 7021-8 ####[facility] LABORATORYCLIA [id number] [place] [address] [facility] [place] Monocytes (Bld) [#/Vol] 1.06 10*3/uL High <0.87 [facility] Comment on above: Order Comment: Speci men Type: BLOOD SPECIMENOrdering Facility: [facility] Address: [address] [place] [address] Performed By: #### 5 7021-8 ####[facility] LABORATORYCLIA [id number] [place] [id number] [place] Monocytes/100 WBC (Bld) 6.3 % Normal [facility] Comment on above: Order Comment: Speci men Type: BLOOD SPECIMENOrdering Facility: [facility] Address: [address] [place] [address] Performed By: #### 5 7021-8 ####[facility] LABORATORYCLIA [id number] [place] [address] [place] Neutrophils (Bld) [#/Vol] 13.21 10*3/uL High 1.45-7.50 [facility] Comment on above: Order Comment: Speci men Type: BLOOD SPECIMENOrdering Facility: [facility] Address: [address] [place] [address] Performed By: #### 5 7021-8 ####[facility] LABORATORYCLIA [id number] [place] [address] [place] Neutrophils/100 WBC (Bld) 78.3 % Normal [facility] Comment on above: Order Comment: Speci men Type: BLOOD SPECIMENOrdering Facility: [facility] Address: [address] [place] [address] Performed By: #### 5 7021-8 ####[facility] LABORATORYCLIA [id number] [place] [id number] [place] Nucleated RBC (Bld) [#/Vol] 10*3/uL Normal <0.01 [facility] Comment on above: Order Comment: Speci men Type: BLOOD SPECIMENOrdering Facility: [facility] Address: [address] [place] [address] Performed By: #### 5 7021-8 ####[facility] LABORATORYCLIA [id number] [place] [id number] [place] Nucleated RBC/100 WBC (Bld) [Ratio] 0.0 /100 WBC Normal [facility] Comment on above: Order Comment: Speci men Type: BLOOD SPECIMENOrdering Facility: [facility] Address: [address] [place] [id number] Performed By: #### 5 7021-8 ####[facility] LABORATORYCLIA [id number] [place] [id number] [place] Platelet mean volume (Bld) [Entitic vol] 8.9 fL Low 9.0-12.7 [facility] Comment on above: Order Comment: Speci men Type: BLOOD SPECIMENOrdering Facility: [facility] Address: [address] [place] [address] Performed By: #### 5 7021-8 ####[facility] LABORATORYCLIA [id number] [place] [id number] [place] Platelets (Bld) [#/Vol] 356 10*3/uL Normal 150-400 [facility] Comment on above: Order Comment: Speci men Type: BLOOD SPECIMENOrdering Facility: [facility] Address: [address] [place] [address] Performed By: #### 5 7021-8 ####[facility] LABORATORYCLIA [id number] [place] [id number] [place] RBC (Bld) [#/Vol] 3.24 10*6/uL Low 3.90-5.20 [facility] Comment on above: Order Comment: Speci men Type: BLOOD SPECIMENOrdering Facility: [facility] Address: [address] [place] [address] Performed By: #### 5 7021-8 ####[facility] LABORATORYCLIA [id number] [place] [id number] [place] WBC (Bld) [#/Vol] 16.85 10*3/uL High 3.70-11.00 [facility] Comment on above: Order Comment: Speci men Type: BLOOD SPECIMENOrdering Facility: [facility] Address: [address] [place] [address] Performed By: #### 5 7021-8 ####[facility] LABORATORYCLIA [id number] [place] [address] [facility] CONSULT PROGon 06-08-2023 CONSULT PROG HNO ID: [id number] Author: MARY EAGLE RPh Service: Pharmacy Author [...] (L) 06/06/2023 1942 8.3 (L) [facility], [facility] THERAPY NTon 06-08-2023 THERAPY NT HNO ID: [id number] Author: JENN BARRY COTA/L Service: Occupational Therapy Author Type: Test Conductor Type: Therapy (PT/OT/Speech/Resp) Filed: 06/08/2023 15:15 Note Text: Attestation signed by Amparo Gilbert OTR/L at 06/08/2023 3:47 PM I reviewed and agree with the documentation corresponding to this therapy visit. SIGNATURE: SHREYA Mayo DATE: June 08, 2023 TIME: 3:47 PM Occupational Therapy Treatment Summary SERVICE DATE: 06/08/2023 SERVICE TIME: 935 to 958 ROOM: [id number] OT 6 Clicks Score: 15 DISCHARGE RECOMMENDATIONS [...] Lines/Tubes/Drains, Bed/Chair Alarm Log roll, bed alarm, MODOC, delayed mental processing, JOEY drain CURRENT HOSPITAL [...] Deficits: Distractible, Divided Memory Deficits: Short Term, Director Of Home Care Hospice Executive Function Deficits: Sequencing, Judgement, Insight to [...] Supervision Low (more content not included)... Normal [facility] Vancomycin [place] SerPl-mCncon 06-08-2023 Vancomycin random [Mass/Vol] 9.3 ug/mL Low 10.0-25.0 [facility] Comment on above: Order Comment: Speci men Type: BLOOD SPECIMENOrdering Facility: [facility] Address: [address] [place] [address] Result Comment: Refe rence ranges and high/low indicator flags are provided as general guidelines only. The treating physician must determine appropriate target levels/dosing based on the specific clinical situation. Performed By: #### 4 091-5 ####[facility] LABORATORYCLIA [id number] [place] [address] [place] Basic metabolic 2000 panelon 06-07-2023 Anion gap [Moles/Vol] 8 mmol/L Normal - [facility] Comment on above: Order Comment: Speci men Type: BLOOD SPECIMENOrdering Facility: [facility] Address: [address] [place] [address] Performed By: #### 2 4321-2 ####[facility] LABORATORYCLIA [id number] [place] [address] [place] Calcium [Mass/Vol] 8.8 mg/dL Normal 8.5-10.5 [facility] Comment on above: Order Comment: Speci men Type: BLOOD SPECIMENOrdering Facility: [facility] Address: [address] [place] [address] Performed By: #### 2 4321-2 ####[facility] LABORATORYCLIA [id number] [place] [id number] [place] Chloride [Moles/Vol] 108 mmol/L High 98-107 [facility] Comment on above: Order Comment: Speci men Type: BLOOD SPECIMENOrdering Facility: [facility] Address: [address] [place] [address] Performed By: #### 2 4321-2 ####[facility] LABORATORYCLIA [id number] [place] [address] [place] CO2 [Moles/Vol] 22 mmol/L Normal 21-32 [facility] Comment on above: Order Comment: Speci men Type: BLOOD SPECIMENOrdering Facility: [facility] Address: [address] [place] [address] Performed By: #### 2 4321-2 ####[facility] LABORATORYCLIA [id number] [place] [address] [place] Creatinine [Mass/Vol] 0.65 mg/dL Normal 0.51-0.95 [facility] Comment on above: Order Comment: Speci men Type: BLOOD SPECIMENOrdering Facility: [facility] Address: [address] [place] [address] Result Comment: Caron ents receiving either N-Acetylcysteine (NAC) or Metamizole prior to venipuncture, may have falsely depressed results. Performed By: #### 2 4321-2 ####[facility] LABORATORYCLIA [id number] [place] [address] [place] Creatinine and Glomerular filtration rate.predicted panel (S/P/Bld) 90 mL/min/1.73m??? Normal >=60 [facility] Comment on above: Order Comment: Speci men Type: BLOOD SPECIMENOrdering Facility: [facility] Address: [address] [place] [address] Result Comment: Neda mated Glomerular Filtration Rate [...] actual GFR. Performed By: #### 2 4321-2 ####[facility] LABORATORYCLIA [id number] [place] [address] [place] Glucose [Mass/Vol] 116 mg/dL High 70-100 [facility] Comment on above: Order Comment: Speci men Type: BLOOD SPECIMENOrdering Facility: [facility] Address: [address] [place] [address] Result Comment: The [place] [employer] (ADA) provides guidance for cutoff [...] Standards of Medical Care in Diabetes 2016, [place] [employer]. Diabetes Care. 2016.39(Suppl 1). Results may be falsely elevated after the administration of Sulfapyridine. Results may be falsely depressed after the administration of Sulfasalazine. Performed By: #### 2 4321-2 ####[facility] LABORATORYCLIA [id number] [place] [address] [place] Potassium [Moles/Vol] Normal [facility] Comment on above: Order Comment: Speci men Type: BLOOD SPECIMENOrdering Facility: [facility] Address: [address] [place] [address] Result Comment: Unab le to assay due to interference from hemolysis. Suggest reorder as clinically indicated.Notified P.Bailey RN Performed By: #### 2 4321-2 ####[facility] LABORATORYCLIA [id number] [place] [address] [place] Sodium [Moles/Vol] 138 mmol/L Normal 136-145 [facility] Comment on above: Order Comment: Speci men Type: BLOOD SPECIMENOrdering Facility: [facility] Address: [address] [place] [address] Performed By: #### 2 4321-2 ####[facility] LABORATORYCLIA [id number] [place] [address] [place] Urea nitrogen [Mass/Vol] 21 mg/dL Normal 7-26 [facility] Comment on above: Order Comment: Speci men Type: BLOOD SPECIMENOrdering Facility: [facility] Address: [address] [place] [address] Performed By: #### 2 4321-2 ####[facility] LABORATORYCLIA [id number] [place] [address] [place] CBC panel Auto (Bld)on 06-06 Erythrocyte distribution width (RBC) [Ratio] 14.8 % Normal 11.5-15.0 [facility] Comment on above: Order Comment: Speci men Type: BLOOD SPECIMEN [facility] Address: [address] [place] [address] Performed By: #### S LACT #### [facility] CLIA [id number] [address] [place] [address] [place] Hematocrit (Bld) [Volume fraction] 25.4 % Low 36.0-46.0 [facility] Comment on above: Order Comment: Speci men Type: BLOOD SPECIMEN [facility] Address: [address] [place] [address] Performed By: #### S LACT #### [facility] CLIA [id number] [address] [place] [address] [place] Hemoglobin (Bld) [Mass/Vol] 8.1 g/dL Low 11.5-15.5 [facility] Comment on above: Order Comment: Speci men Type: BLOOD SPECIMEN [facility] Address: [address] [place] [address] Performed By: #### S LACT #### [facility] CLIA [id number] [address] [place] [address] MCH (RBC) [Entitic mass] 25.3 pg Low 26.0-34.0 [facility] Comment on above: Order Comment: Speci men Type: BLOOD SPECIMEN [facility] Address: [address] [place] [address] Performed By: #### S LACT #### [facility] CLIA [id number] [address] [place] [address] MCHC (RBC) [Mass/Vol] 31.9 g/dL Normal 30.5-36.0 [facility] Comment on above: Order Comment: Speci men Type: BLOOD SPECIMEN [facility] Address: [address] [place] [address] Performed By: #### S LACT #### [facility] CLIA [id number] [address] [place] [address] [place] MCV (RBC) [Entitic vol] 79.4 fL Low 80.0-100.0 [facility] Comment on above: Order Comment: Speci men Type: BLOOD SPECIMEN [facility] Address: [address] [place] [address] Performed By: #### S LACT #### [facility] CLIA [id number] [address] [place] [address] Nucleated RBC (Bld) [#/Vol] 10*3/uL Normal <0.01 [facility] Comment on above: Order Comment: Speci men Type: BLOOD SPECIMEN [facility] Address: [address] [place] [address] Performed By: #### S LACT #### [facility] CLIA [id number] [address] [place] [address] [place] Platelet mean volume (Bld) [Entitic vol] 8.8 fL Low 9.0-12.7 [facility] Comment on above: Order Comment: Speci men Type: BLOOD SPECIMEN [facility] Address: [address] [place], [place] [id number] Performed By: #### S LACT #### [facility] CLIA [id number] [address] [place] [address] [place] Platelets (Bld) [#/Vol] 317 10*3/uL Normal 150-400 [facility] Comment on above: Order Comment: Speci men Type: BLOOD SPECIMEN Ordering Facility: [facility] Address: [address] [place] [address] Performed By: #### S LACT #### [facility] CLIA [id number] [address] [place] [address] [place] RBC (Bld) [#/Vol] 3.20 10*6/uL Low 3.90-5.20 [facility] Comment on above: Order Comment: Speci men Type: BLOOD SPECIMEN Ordering Facility: [facility] Address: [address] [place] [address] Performed By: #### S LACT #### [facility] CLIA [id number] [address] [place], [place] [id number] [place] WBC (Bld) [#/Vol] 18.96 10*3/uL High 3.70-11.00 [facility] Comment on above: Order Comment: Speci men Type: BLOOD SPECIMEN [facility] Facility[facility] Address: [address] [place] [address] Performed By: #### S LACT #### [facility] CLIA [id number] [address] [place] [address] [place] POTASSIUM BLDon 06-07-2023 Potassium [Moles/Vol] 4.3 mmol/L Normal 3.5-5.1 [facility] Comment on above: Order Comment: Speci men Type: BLOOD SPECIMENOrdering Facility: [facility] Address: [address] [place] [address] Performed By: #### K 1 ####[facility] LABORATORYCLIA [id number] [place] [address] [facility] THERAPY NTon 06-07-2023 THERAPY NT HNO ID: [id number] Author: BRANDON RAMSAY PT Service: Physical Therapy Author Type: Support Merchandiser Type: Therapy (PT/OT/Speech/Resp) Filed: 06/07/2023 16:42 Note Text: Attestation signed by Brandon Ramsay PT at 06/07/2023 4:42 PM I reviewed and agree with the documentation corresponding to this therapy visit. SIGNATURE: Brandon Ramsay PT DATE: June 07, 2023 TIME: 4:42 PM Physical Therapy Treatment Summary SERVICE DATE: 06/07/2023 SERVICE TIME: 1527 to 1556 ROOM: [id number] PT 6 Clicks Score: 12 DISCHARGE RECOMMENDATIONS [...] Bed/Chair Alarm, Sitter Log roll, bed alarm, MODOC, delayed mental processing, JOEY drain CURRENT HOSPITAL [...] DIAGNOSIS Reduced mobility-other TREATMENT INTERVENTIONS Therapeutic Exercise (86240), Gait Training (80224) Timed Code Treatment (minutes): 29 Skilled Treatment [...] max cuing/redirect (more content not included)... Normal [facility] Basic metabolic 2000 panelon 06-06-2023 Anion gap [Moles/Vol] 5 mmol/L Normal 5-16 [facility] Comment on above: Order Comment: Speci men Type: BLOOD SPECIMEN [facility] Address: [address] [place] [address] Performed By: #### 2 4320-04, 1987-07 #### [facility] CLIA [id number] [address] [place] [address] [place] Calcium [Mass/Vol] 8.8 mg/dL Normal 8.5-10.5 [facility] Comment on above: Order Comment: Speci men Type: BLOOD SPECIMEN [facility] Facility[facility] Address: [address] [place] [address] Performed By: #### 2 4320-04, 1987-07 #### [facility] CLIA [id number] [address] [place] [address] [place] Chloride [Moles/Vol] 108 mmol/L High 98-107 [facility] Comment on above: Order Comment: Speci men Type: BLOOD SPECIMEN [facility] Facility: [facility] Address: [address] [place] [address] Performed By: #### 2 4320-04, 1987-07 #### [facility] CLIA [id number] [address] [place] [address] [place] CO2 [Moles/Vol] 26 mmol/L Normal 21-32 [facility] Comment on above: Order Comment: Speci men Type: BLOOD SPECIMEN [facility] Facility[facility] Address: [address] [place] [address] Performed By: #### 2 43203-23, 1987-07 #### [facility] CLIA [id number] [address] [place] [address] [place] Creatinine [Mass/Vol] 0.58 mg/dL Normal 0.51-0.95 [facility] Comment on above: Order Comment: Speci men Type: BLOOD SPECIMEN [facility] Facility: [facility] Address: [address] [place] [address] Result Comment: Caron ents receiving either N-Acetylcysteine (NAC) or Metamizole prior to venipuncture, may have falsely depressed results. Performed By: #### 2 4320-04, 1987-07 #### [facility] CLIA [id number] [address] [place] [address] [place] Creatinine and Glomerular filtration rate.predicted panel (S/P/Bld) 92 mL/min/1.73m??? Normal >=60 [facility] Comment on above: Order Comment: Debbiei men Type: BLOOD SPECIMEN [facility] Address: [address] [place] [address] Result Comment: Neda mated Glomerular Filtration Rate [...] Performed By: #### 2 43203-23, 1987-07 #### [facility] CLIA [id number] [address] [place], [place] [address] [place] Glucose [Mass/Vol] 116 mg/dL High 70-100 [facility] Comment on above: Order Comment: Speci men Type: BLOOD SPECIMEN [facility] Facility: [facility] Address: [address] [place], [place] [address] Result Comment: The [place] [employer] (ADA) provides guidance for cutoff [...] Standards of Medical Care in Diabetes 2016, [place] [employer]. Diabetes Care. 2016.39(Suppl 1). Results may be falsely elevated after the administration of Sulfapyridine. Results may be falsely depressed after the administration of Sulfasalazine. Performed By: #### 2 1987-07 #### [facility] CLIA [id number] [address] [place] [address] [place] Potassium [Moles/Vol] 4.2 mmol/L Normal 3.5-5.1 [facility] Comment on above: Order Comment: Anny hong Type: BLOOD SPECIMEN [facility] Facility[facility] Address: [address] [place], [place] [address] Performed By: #### 2 1987-07 #### [facility] CLIA [id number] [address] [place] [address] [place] Sodium [Moles/Vol] 139 mmol/L Normal 136-145 [facility] Comment on above: Order Comment: Anny hong Type: BLOOD SPECIMEN [facility] Facility: [facility] Address: [address] [place], [place] [address] Performed By: #### 2 1987-07 #### [facility] CLIA [id number] [address] [place] [address] [place] Urea nitrogen [Mass/Vol] 26 mg/dL Normal 7-26 [facility] Comment on above: Order Comment: Speci men Type: BLOOD SPECIMEN [facility]ing Facility: [facility] Address: [address] [place] [address] Performed By: #### 2 4320-04, 1987-07 #### [facility] CLIA [id number] [address] [place] [address] [place] CBC W Auto Differential pane l (Bld)on 06-06-2023 Basophils (Bld) [#/Vol] 0.03 10*3/uL Normal <0.11 [facility] Comment on above: Order Comment: Speci men Type: BLOOD SPECIMEN [facility] Facility: [facility] Address: [address] [place] [address] Performed By: #### 2 4320-04, 1987-07 #### [facility] CLIA [id number] [address] [place] [address] [place] Basophils/100 WBC (Bld) 0.1 % Normal [facility] Comment on above: Order Comment: Speci men Type: BLOOD SPECIMEN [facility] Facility[facility] Address: [address] [place] [address] Performed By: #### 2 4320-04, 1987-07 #### [facility] CLIA [id number] [address] [place] [address] [place] Differential cell count method Nom (Bld) Auto Normal [facility] Comment on above: Order Comment: Speci men Type: BLOOD SPECIMEN [facility] Facility[facility] Address: [address] [place] [address] Performed By: #### 2 4320-04, 1987-07 #### [facility] CLIA [id number] [address] [place] [address] [place] Eosinophils (Bld) [#/Vol] 10*3/uL Normal <0.46 [facility] Comment on above: Order Comment: Speci men Type: BLOOD SPECIMEN [facility] Facility: [facility] Address: [address] [place] [address] Performed By: #### 2 4320-04, 1987-07 #### [facility] CLIA [id number] [address] [place], [place] [address] [place] Eosinophils/100 WBC (Bld) 0.0 % Normal [facility] Comment on above: Order Comment: Speci men Type: BLOOD SPECIMEN [facility]ing Facility: [facility] Address: [address] [place] [address] Performed By: #### 2 4320-04, 1987-07 #### [facility] CLIA [id number] [address] [place] [address] [place] Erythrocyte distribution width (RBC) [Ratio] 14.9 % Normal 11.5-15.0 [facility] Comment on above: Order Comment: Speci men Type: BLOOD SPECIMEN [facility] Facility: [facility] Address: [address] [place] [address] Performed By: #### 2 4320-04, 1987-07 #### [facility] CLIA [id number] [address] [place] [address] [place] Hematocrit (Bld) [Volume fraction] 26.3 % Low 36.0-46.0 [facility] Comment on above: Order Comment: Speci men Type: BLOOD SPECIMEN [facility]ing Facility: [facility] Address: [address] [place] [address] Performed By: #### 2 4320-04, 1987-07 #### [facility] CLIA [id number] [address] [place] [address] [place] Hemoglobin (Bld) [Mass/Vol] 8.4 g/dL Low 11.5-15.5 [facility] Comment on above: Order Comment: Speci men Type: BLOOD SPECIMEN [facility]ing Facility: [facility] Address: [address] [place] [address] Performed By: #### 2 4320-04, 1987-07 #### [facility] CLIA [id number] [address] [place], [place] [address] [place] Immature granulocytes (Bld) [#/Vol] 0.22 10*3/uL High <0.10 [facility] Comment on above: Order Comment: Speci men Type: BLOOD SPECIMEN [facility] Facility[facility] Address: [address] [place] [address] Performed By: #### 2 4320-04, 1987-07 #### [facility] CLIA [id number] [address] [place] [address] [place] Immature granulocytes/100 WBC (Bld) 1.0 % Normal [facility] Comment on above: Order Comment: Speci men Type: BLOOD SPECIMEN [facility] Facility: [facility] Address: [address] [place] [address] Performed By: #### 2 4320-04, 1987-07 #### [facility] CLIA [id number] [address] [place] [address] [place] Lymphocytes (Bld) [#/Vol] 2.41 10*3/uL Normal 1.00-4.00 [facility] Comment on above: Order Comment: Speci men Type: BLOOD SPECIMEN [facility] Facility[facility] Address: [address] [place] [address] Performed By: #### 2 4320-04, 1987-07 #### [facility] CLIA [id number] [address] [place] [address] [place] Lymphocytes/100 WBC (Bld) 10.6 % Normal [facility] Comment on above: Order Comment: Speci men Type: BLOOD SPECIMEN [facility] Facility[facility] Address: [address] [place] [address] Performed By: #### 2 4320-04, 1987-07 #### [facility] CLIA [id number] [address] [place] [address] [place] MCH (RBC) [Entitic mass] 25.3 pg Low 26.0-34.0 [facility] Comment on above: Order Comment: Speci men Type: BLOOD SPECIMEN [facility] Facility[facility] Address: [address] [place] [address] Performed By: #### 2 4320-04, 1987-07 #### [facility] CLIA [id number] [address] [place] [address] [place] MCHC (RBC) [Mass/Vol] 31.9 g/dL Normal 30.5-36.0 [facility] Comment on above: Order Comment: Speci men Type: BLOOD SPECIMEN [facility] Facility[facility] Address: [address] [place] [address] Performed By: #### 2 4320-04, 1987-07 #### [facility] CLIA [id number] [address] [place] [address] [place] MCV (RBC) [Entitic vol] 79.2 fL Low 80.0-100.0 [facility] Comment on above: Order Comment: Speci men Type: BLOOD SPECIMEN [facility] Facility[facility] Address: [address] [place] [address] Performed By: #### 2 4320-04, 1987-07 #### [facility] CLIA [id number] [address] [place] [address] [place] Monocytes (Bld) [#/Vol] 1.61 10*3/uL High <0.87 [facility] Comment on above: Order Comment: Speci men Type: BLOOD SPECIMEN [facility] Facility[facility] Address: [address] [place] [address] Performed By: #### 2 4320-04, 1987-07 #### [facility] CLIA [id number] [address] [place] [address] [place] Monocytes/100 WBC (Bld) 7.1 % Normal [facility] Comment on above: Order Comment: Speci men Type: BLOOD SPECIMEN [facility] Facility: [facility] Address: [address] [place] [address] Performed By: #### 2 4320-04, 1987-07 #### [facility] CLIA [id number] [address] [place] [address] [place] Neutrophils (Bld) [#/Vol] 18.41 10*3/uL High 1.45-7.50 [facility] Comment on above: Order Comment: Speci men Type: BLOOD SPECIMEN [facility] Facility[facility] Address: [address] [place] [address] Performed By: #### 2 4320-04, 1987-07 #### [facility] CLIA [id number] [address] [place], [place] [address] [place] Neutrophils/100 WBC (Bld) 81.2 % Normal [facility] Comment on above: Order Comment: Speci men Type: BLOOD SPECIMEN [facility] Facility: [facility] Address: [address] [place] [id number] Performed By: #### 2 4320-04, 1987-07 #### [facility] CLIA [id number] [address] [place], [place] [address] [place] Nucleated RBC (Bld) [#/Vol] 10*3/uL Normal <0.01 [facility] Comment on above: Order Comment: Speci men Type: BLOOD SPECIMEN [facility] Facility[facility] Address: [facility] [place] [id number] Performed By: #### 2 4320-04, 1987-07 #### [facility] CLIA [id number] [address] [place], [place] [address] [place] Nucleated RBC/100 WBC (Bld) [Ratio] 0.0 /100 WBC Normal [facility] Comment on above: Order Comment: Speci men Type: BLOOD SPECIMEN [facility] Facility: [facility] Address: [address] [place] [address] Performed By: #### 2 4320-04, 1987-07 #### [facility] CLIA [id number] [address] [place], [place] [address] [place] Platelet mean volume (Bld) [Entitic vol] 8.6 fL Low 9.0-12.7 [facility] Comment on above: Order Comment: Speci men Type: BLOOD SPECIMEN [facility] Facility[facility] Address: [address] [place] [address] Performed By: #### 2 4320-04, 1987-07 #### [facility] CLIA [id number] [address] [place], [place] [address] [place] Platelets (Bld) [#/Vol] 326 10*3/uL Normal 150-400 [facility] Comment on above: Order Comment: Speci men Type: BLOOD SPECIMEN [facility] Facility[facility] Address: [address] [place], [place] [address] Performed By: #### 2 4321-, 1987-07 #### [facility] CLIA [id number] [address] [place], [place] [address] [place] RBC (Bld) [#/Vol] 3.32 10*6/uL Low 3.90-5.20 [facility] Comment on above: Order Comment: Speci men Type: BLOOD SPECIMEN [facility] Facility: [facility] Address: [address] [place], [place] [address] Performed By: #### 2 4321, 1987-07 #### [facility] CLIA [id number] [address] [place], [place] [address] [facility] [place] WBC (Bld) [#/Vol] 22.69 10*3/uL High 3.70-11.00 [facility] Comment on above: Order Comment: Speci men Type: BLOOD SPECIMEN [facility] Facility[facility] Address: [address] [place], [place] [address] Performed By: #### 2 43203-23, 1987-07 #### [facility] CLIA [id number] [address] [place], [place] [address] [facility] CONSULT PROGon 06-06-2023 CONSULT PROG HNO ID: [id number] Author: SUJATA MORENO RPh Service: Pharmacy Author [...] 06/04/2023 1820 32.8 (H) Sujata Moreno [facility] Normal [facility] Magnesium SerPl-mCncon 06-05 Magnesium [Mass/Vol] 2.1 mg/dL Normal 1.6-2.6 [facility] Comment on above: Order Comment: Speci men Type: BLOOD SPECIMEN [facility] Address: [address] [place] [address] Performed By: #### 2 4321-2, 1987-07 #### [facility] CLIA [id number] [address] [place] [address] [place] NURSING PROGon 06-06-2023 NURSING PROG HNO ID: [id number] Author: ASHVIN CRUMP RN Service: ? Author Type: Registered Nurse Type: Nursing Progress Note Filed: 06/06/2023 19:23 Note Text: IV in Right forearm pulled out by unplanned removal. IV replaced with a nee #22 gauge in the right wrist for antibiotic and other needs. Normal [facility] THERAPY NTon 06-06-2023 THERAPY NT HNO ID: [id number] Author: MERCEDEZ ROBLEDO OTR/L Service: ? Author Type: Occupational Therapist Type: Therapy (PT/OT/Speech/Resp) Filed: 06/06/2023 10:04 Note Text: Occupational Therapy Evaluation Summary SERVICE DATE: 06/06/2023 SERVICE TIME: 902 to 925 ROOM: [place] [address] OT 6 Clicks Score: 15 DISCHARGE RECOMMENDATIONS [...] Lines/Tubes/Drains, Bed/Chair Alarm Log roll, bed alarm, MODOC, delayed mental processing, JOEY drain CURRENT HOSPITAL [...] Redirected with Cues Memory Deficits: Short Term, Half-Way Executive Function Deficits: Safety Awareness, Problem Solving, Insight to Deficits, Judgement, Sequencing, Categorization THERAPY DIAGNOSIS Reduced mobility-other, Muscle Weakness (generalized), Decreased activities of daily living (ADL), Unsteadiness on feet, General symptoms and signs-other TREATMENT INTERVENTIONS Evaluation, Self Shelter Management (01389) Timed Code Treatment (minutes): 8 Skilled Treatment Time (minutes): 23 TRAINING AND EDUCATION PROVIDED Activity Adaptation/Compensatory Strategies, Altering Thinking Patterns, Assistive Device Use, Attention Diversion Techniques, Benefits of In-Hospital Mobility, Bed Mobility, Expected Functional Level, Lower Extremity Dressing, Role of Occupational Therapy, Precautions/Restrictions, Standing Balance to Improve [place] with ADLs/Self-Care THERAPEUTIC SKILLS USED Activity Dosing, [...] Information Max A for brief donning/doffing to al (more content not included)... Normal [facility] Vancomycin [place] SerPl-mCncon 06-06-2023 Vancomycin random [Mass/Vol] 8.3 ug/mL Low 10.0-25.0 [facility] Comment on above: Order Comment: Anny hong Type: BLOOD SPECIMEN [facility] Facility[facility] Address: [address] [place] [address] Result Comment: Refe rence ranges and high/low indicator flags are provided as general guidelines only. The treating physician must determine appropriate target levels/dosing based on the specific clinical situation. Performed By: #### S LACT #### [facility] CLIA [id number] [address] [place] [address] [place] Basic metabolic 2000 panelon 06-05-2023 Anion gap [Moles/Vol] 5 mmol/L Normal 08-04 [facility] Comment on above: Order Comment: Anny hong Type: BLOOD SPECIMEN [facility] Facility: [facility] Address: [address] [place], [place] [address] Performed By: #### 2 4320-04, 1987-07 #### [facility] CLIA [id number] [address] [place] [address] [place] Calcium [Mass/Vol] 8.9 mg/dL Normal 8.5-10.5 [facility] Comment on above: Order Comment: Anny hong Type: BLOOD SPECIMEN [facility] Facility[facility] Address: [address] [place], [place] [address] Performed By: #### 2 1987-07 #### [facility] CLIA [id number] [address] [place] [address] [place] Chloride [Moles/Vol] 105 mmol/L Normal 98-107 [facility] Comment on above: Order Comment: Speci men Type: BLOOD SPECIMEN [facility] Facility[facility] Address: [address] [place] [address] Performed By: #### 2 43203-23, 1987-07 #### [facility] CLIA [id number] [address] [place] [address] [place] CO2 [Moles/Vol] 26 mmol/L Normal 21-32 [facility] Comment on above: Order Comment: Speci men Type: BLOOD SPECIMEN [facility] Facility[facility] Address: [address] [place] [address] Performed By: #### 2 43203-23, 1987-07 #### [facility] CLIA [id number] [address] [place] [address] STATES OF [facility] Creatinine [Mass/Vol] 0.70 mg/dL Normal 0.51-0.95 [facility] Comment on above: Order Comment: Speci men Type: BLOOD SPECIMEN [facility] Facility: [facility] Address: [address] [place] [address] Result Comment: Caron ents receiving either N-Acetylcysteine (NAC) or Metamizole prior to venipuncture, may have falsely depressed results. Performed By: #### 2 43203-23, 1987-07 #### [facility] CLIA [id number] [address] [place] [address] OF [facility] Creatinine and Glomerular filtration rate.predicted panel (S/P/Bld) 88 mL/min/1.73m??? Normal >=60 [facility] Comment on above: Order Comment: Speci men Type: BLOOD SPECIMEN [facility] Facility: [facility] Address: [address] [place] [address] Result Comment: Neda mated Glomerular Filtration Rate [...] GFR. Performed By: #### 2 1987-07 #### [facility] CLIA [id number] [address] [place], [place] [id number] [place] Glucose [Mass/Vol] 128 mg/dL High 70-100 [facility] Comment on above: Order Comment: Anny hong Type: BLOOD SPECIMEN Ordering Facility: [facility] Address: [address] [id number] Result Comment: The [place] [employer] (ADA) provides guidance for cutoff [...] Standards of Medical Care in Diabetes 2016, [place] [employer]. Diabetes Care. 2016.39(Suppl 1). Results may be falsely elevated after the administration of Sulfapyridine. Results may be falsely depressed after the administration of Sulfasalazine. Performed By: #### 2 1987-07 #### [facility] CLIA [id number] [address] [place] [address] [place] Potassium [Moles/Vol] 5.2 mmol/L High 3.5-5.1 [facility] Comment on above: Order Comment: Anny hong Type: BLOOD SPECIMEN Ordering Facility: [facility] Address: [address] [place] [address] Performed By: #### 2 4320-04, 1987-07 #### [facility] CLIA [id number] [address] [place], [place] [address] [place] Sodium [Moles/Vol] 136 mmol/L Normal 136-145 [facility] Comment on above: Order Comment: Speci men Type: BLOOD SPECIMEN Ordering Facility: [facility] Address: [address] [place] [address] Performed By: #### 2 4320-04, 1987-07 #### [facility] CLIA [id number] [address] [place] [address] [place] Urea nitrogen [Mass/Vol] 35 mg/dL High - [facility] Comment on above: Order Comment: Speci men Type: BLOOD SPECIMEN [facility]ing Facility: [facility] Address: [address] [place] [address] Performed By: #### 2 4320-04, 1987-07 #### [facility] CLIA [id number] [address] [place] [address] [place] CBC W Auto Differential pane l (Bld)on 06-05-2023 Basophils (Bld) [#/Vol] 0.03 10*3/uL Normal <0.11 [facility] Comment on above: Order Comment: Speci men Type: BLOOD SPECIMEN [facility]ing Facility: [facility] Address: [address] [place] [address] Performed By: #### 2 4320-04, 1987-07 #### [facility] CLIA [id number] [address] [place] [address] [place] Basophils/100 WBC (Bld) 0.1 % Normal [facility] Comment on above: Order Comment: Speci men Type: BLOOD SPECIMEN Ordering Facility: [facility] Address: [address] [place] [address] Performed By: #### 2 4320-04, 1987-07 #### [facility] CLIA [id number] [address] [place] [address] STATES [facility] Differential cell count method Nom (Bld) Auto Normal [facility] Comment on above: Order Comment: Speci men Type: BLOOD SPECIMEN [facility]ing Facility: [facility] Address: [address] [place] [address] Performed By: #### 2 4320-04, 1987-07 #### [facility] CLIA [id number] [address] [place] [address] [place] Eosinophils (Bld) [#/Vol] 0.08 10*3/uL Normal <0.46 [facility] Comment on above: Order Comment: Speci men Type: BLOOD SPECIMEN [facility]ing Facility: [facility] Address: [address] [place] [address] Performed By: #### 2 4320-04, 1987-07 #### [facility] CLIA [id number] [address] [place] [address] [place] Eosinophils/100 WBC (Bld) 0.4 % Normal [facility] Comment on above: Order Comment: Speci men Type: BLOOD SPECIMEN [facility]ing Facility: [facility] Address: [address] [place] [address] Performed By: #### 2 4320-04, 1987-07 #### [facility] CLIA [id number] [address] [place] [address] [place] Erythrocyte distribution width (RBC) [Ratio] 15.1 % High 11.5-15.0 [facility] Comment on above: Order Comment: Speci men Type: BLOOD SPECIMEN Ordering Facility: [facility] Address: [address] [place] [address] Performed By: #### 2 4320-04, 1987-07 #### [facility] CLIA [id number] [address] [place] [address] [place] Hematocrit (Bld) [Volume fraction] 27.2 % Low 36.0-46.0 [facility] Comment on above: Order Comment: Speci men Type: BLOOD SPECIMEN Ordering Facility: [facility] Address: [address] [place] [address] Performed By: #### 2 4320-04, 1987-07 #### [facility] CLIA [id number] [address] [place], [place] [address] [place] Hemoglobin (Bld) [Mass/Vol] 8.8 g/dL Low 11.5-15.5 [facility] Comment on above: Order Comment: Speci men Type: BLOOD SPECIMEN Ordering Facility: [facility] Address: [address] [place] [id number] Performed By: #### 2 4320-04, 1987-07 #### [facility] CLIA [id number] [address] [place], [place] [address] [place] Immature granulocytes (Bld) [#/Vol] 0.26 10*3/uL High <0.10 [facility] Comment on above: Order Comment: Speci men Type: BLOOD SPECIMEN Ordering Facility: [facility] Address: [address] [place] [address] Performed By: #### 2 4320-04, 1987-07 #### [facility] CLIA [id number] [address] [place] [address] [place] Immature granulocytes/100 WBC (Bld) 1.2 % Normal [facility] Comment on above: Order Comment: Speci men Type: BLOOD SPECIMEN Ordering Facility: [facility] Address: [address] [place] [address] Performed By: #### 2 4320-04, 1987-07 #### [facility] CLIA [id number] [address] [place] [address] [place] Lymphocytes (Bld) [#/Vol] 2.53 10*3/uL Normal 1.00-4.00 [facility] Comment on above: Order Comment: Speci men Type: BLOOD SPECIMEN Ordering Facility: [facility] Address: [address] [place] [address] Performed By: #### 2 4320-04, 1987-07 #### [facility] CLIA [id number] [address] [place], [place] [address] [place] Lymphocytes/100 WBC (Bld) 11.4 % Normal [facility] Comment on above: Order Comment: Speci men Type: BLOOD SPECIMEN Ordering Facility: [facility] Address: [address] [place] [address] Performed By: #### 2 4320-04, 1987-07 #### [facility] CLIA [id number] [address] [place] [address] [place] MCH (RBC) [Entitic mass] 25.8 pg Low 26.0-34.0 [facility] Comment on above: Order Comment: Speci men Type: BLOOD SPECIMEN Ordering Facility: [facility] Address: [address] [place] [address] Performed By: #### 2 4320-04, 1987-07 #### [facility] CLIA [id number] [address] [place] [address] [place] MCHC (RBC) [Mass/Vol] 32.4 g/dL Normal 30.5-36.0 [facility] Comment on above: Order Comment: Speci men Type: BLOOD SPECIMEN Ordering Facility: [facility] Address: [address] [place] [address] Performed By: #### 2 4320-04, 1987-07 #### [facility] CLIA [id number] [address] [place] [address] [place] MCV (RBC) [Entitic vol] 79.8 fL Low 80.0-100.0 [facility] Comment on above: Order Comment: Speci men Type: BLOOD SPECIMEN Ordering Facility: [facility] Address: [address] [place] [address] Performed By: #### 2 4320-04, 1987-07 #### [facility] CLIA [id number] [address] [place] [address] [place] Monocytes (Bld) [#/Vol] 1.51 10*3/uL High <0.87 [facility] Comment on above: Order Comment: Speci men Type: BLOOD SPECIMEN Ordering Facility: [facility] Address: [address] [place] [address] Performed By: #### 2 4320-04, 1987-07 #### [facility] CLIA [id number] [address] [place] [address] [place] Monocytes/100 WBC (Bld) 6.8 % Normal [facility] Comment on above: Order Comment: Speci men Type: BLOOD SPECIMEN Ordering Facility: [facility] Address: [address] [place] [address] Performed By: #### 2 4320-04, 1987-07 #### [facility] CLIA [id number] [address] [place] [address] [place] Neutrophils (Bld) [#/Vol] 17.79 10*3/uL High 1.45-7.50 [facility] Comment on above: Order Comment: Speci men Type: BLOOD SPECIMEN Ordering Facility: [facility] Address: [address] [place] [address] Performed By: #### 2 4320-04, 1987-07 #### [facility] CLIA [id number] [address] [place], [place] [address] [place] Neutrophils/100 WBC (Bld) 80.1 % Normal [facility] Comment on above: Order Comment: Speci men Type: BLOOD SPECIMEN Ordering Facility: [facility] Address: [address] [place] [address] Performed By: #### 2 4320-04, 1987-07 #### [facility] CLIA [id number] [address] [place] [address] [place] Nucleated RBC (Bld) [#/Vol] 10*3/uL Normal <0.01 [facility] Comment on above: Order Comment: Speci men Type: BLOOD SPECIMEN Ordering Facility: [facility] Address: [address] [place] [address] Performed By: #### 2 4320-04, 1987-07 #### [facility] CLIA [id number] [address] [place], [place] [address] [place] Nucleated RBC/100 WBC (Bld) [Ratio] 0.0 /100 WBC Normal [facility] Comment on above: Order Comment: Speci men Type: BLOOD SPECIMEN Ordering Facility: [facility] Address: [address] [place] [address] [place] [address] Performed By: #### 2 4320-04, 1987-07 #### [facility] CLIA [id number] [address] [place], [place] [address] [place] Platelet mean volume (Bld) [Entitic vol] 8.6 fL Low 9.0-12.7 [facility] Comment on above: Order Comment: Speci men Type: BLOOD SPECIMEN Ordering Facility: [facility] Address: [address] [place], [place] [address] Performed By: #### 2 4320-04, 1987-07 #### [facility] CLIA [id number] [address] [place] [address] [place] Platelets (Bld) [#/Vol] 368 10*3/uL Normal 150-400 [facility] Comment on above: Order Comment: Speci men Type: BLOOD SPECIMEN Ordering Facility: [facility] Address: [address] [place], [place] [address] Performed By: #### 2 4320-04, 1987-07 #### [facility] CLIA [id number] [address] [place], [place] [address] [place] RBC (Bld) [#/Vol] 3.41 10*6/uL Low 3.90-5.20 [facility] Comment on above: Order Comment: Speci men Type: BLOOD SPECIMEN Ordering Facility: [facility] Address: [address] [place], [place] [address] Performed By: #### 2 4320-04, 1987-07 #### [facility] CLIA [id number] [address] [place] [address] [place] WBC (Bld) [#/Vol] 22.20 10*3/uL High 3.70-11.00 [facility] Comment on above: Order Comment: Speci men Type: BLOOD SPECIMEN Ordering Facility: [facility] Address: [address] [place] [address] Performed By: #### 2 4320-04, 1987-07 #### [facility] CLIA [id number] [address] [place] [address] [facility] [place] CONSULTon 06-05-2023 CONSULT HNO ID: [id number] Author: DENISE YEBOAH MD Service: Cardiovascular Medicine Author Type: Physician Type: Consults Filed: 06/05/2023 13:14 Note Text: CARDIOLOGY CONSULT Changed co-signer 06/04 0654 CONSULTING PHYSICIAN: Buck Ayala MD PCP: Sulma Malone DO ATTENDING: Buck Ayala MD STAFF URGENT CARE TECHNICIAN: Dr. Yeboah REASON FOR CONSULT: bacteremia, borderline [...] not answer que (more content not included)... [facility] CONSULT PROGon 06-05-2023 CONSULT PROG HNO ID: [id number] Author: MICAH ARIAS RPh Service: Pharmacy Author [...] have any questions, please contact pharmacy at [phone]. Age: [age] year old Allergies: ALLERGIES Allergen [...] Value 06/04/2023 1820 32.8 (H) Micah Arias [facility] ECG COMPLETEon 06-05-2023 ECG COMPLETE Ventricular Rate : 8 8 BPM Atrial Rate : 88 BPM P-R Interval : 166 ms QRS Duration : 92 ms Q-T Interval : 378 ms QTC Calculation(Bazett) : 457 ms Calculated P [place] : 33 degrees Calculated R [place] : -18 degrees Calculated T [place] : 80 degrees Sinus rhythm with occasional Premature ventricular complexes Left ventricular hypertrophy Non-specific ST and T wave changes Abnormal ECG No previous ECGs available Confirmed by MAURICE BRYANT MD ([id number]) on 07/07/2023 5:11:39 PM NAME : ZOILA WEBSTER PID : [id number] : 1945 Gender : Female Race : ORD : [id number] Procedure Date : Jun 05 2023 08:32:58 Edit Date : Jul 07 2023 17:11:40 Diagnosis: Sinus rhythm with occasional Premature ventricular complexes Left ventricular hypertrophy Non-specific ST and T wave changes Abnormal ECG No previous ECGs available Confirmed by MAURICE BRYANT MD ([id number]) on 07/07/2023 5:11:39 PM Test Reason : RT Location : 28 : [address] [place] [address] Overread By : MAURICE BRYANT MD Edited By : MAURICE BRYANT MD Referred By : , Acquired by : LONDON DURAN Normal [facility] Magnesium SerPl-ncon 06-04 Magnesium [Mass/Vol] 2.2 mg/dL Normal 1.6-2.6 [facility] Comment on above: Order Comment: Speci men Type: BLOOD SPECIMEN [facility] Facility[facility] Address: [address] [place] [address] Performed By: #### 2 4321-2, 1987-07 #### [facility] CLIA [id number] [address] [place] [address] OF [facility] THERAPY NTon 06-05-2023 THERAPY NT HNO ID: [id number] Author: ROBERTA ALEXANDER, PT, DPT Service: Physical Therapy Author Type: Physical Therapist Type: Therapy (PT/OT/Speech/Resp) Filed: 06/05/2023 10:42 Note Text: Physical Therapy Evaluation Summary SERVICE DATE: 06/05/2023 SERVICE TIME: 0954 to 1037 ROOM: [id number] PT 6 Clicks Score: 12 DISCHARGE RECOMMENDATIONS [...] Lines/Tubes/Drains, Bed/Chair Alarm Log roll, bed alarm, MODOC, delayed mental processing CURRENT HOSPITAL COURSE s/p [...] Reduced mobility-other TREATMENT INTERVENTIONS Evaluation, Therapeutic Activity (40616) Timed Code Treatment (minutes): 28 Skilled Treatment [...] June 05, 2023 TIME: 10:42 AM Normal [facility] TSH SerPl-aCncon 06-05-2023 TSH Qn 0.403 m[IU]/L Normal 0.358-3.74 0 [facility] Comment on above: Order Comment: Speci men Type: BLOOD SPECIMEN [facility] Facility: [facility] Address: [address] [place] [address] Result Comment: 3rd generation ultra sensitive TSH. Performed By: #### 2 4321-2, 1987-07 #### [facility] CLIA [id number] [address] OF [facility] ANES POSTPROC EVALon 024 ANES POSTPROC EVAL HNO ID: [id number] Author: JUAN M LEE DO Service: Anesthesiology [...] June 04, 2023 TIME: 7:07 PM CSN: [id number] [facility] ANES PRE-OPon 06-04-2023 ANES PRE-OP HNO ID: [id number] Author: BOSSMAN STRATTON MD Service: Anesthesiology Author [...] June 04, 2023 TIME: 12:19 PM CSN: [id number] [facility] BRIEF OP NOTon 06-04-2023 BRIEF OP NOT HNO ID: [id number] Author: DYLAN FINN DO Service: Orthopaedic Surgery Author Type: Physician Type: Brief Op Note Filed: 06/04/2023 17:10 Note Text: BRIEF OPERATIVE / PROCEDURE NOTE LOG ID: [id number] SURGERY/PROCEDURE DATE: 06/04/2023 INCISION/PROCEDURE START TIME: 2:11 PM INCISION CLOSE/PROCEDURE END TIME: SURGEON(S)/PROCEDURALIST(S) AND COTTON TIER(S): Surgeon(s) and Role: * Dylan Finn DO - Primary Forger Helper: Madonna Martinez SA; Darrian Mullen SA SURGERY/PROCEDURE(S): [...] DATE: June 04, 2023 TIME: 5:08 PM [facility] Bacteria Bld Culton 06-04-19 24 Bacteria identified Cx Nom (Bld) CULTURE, BLOOD: No growth 5 days Normal [facility] Comment on above: Performed By: #### 6 00-7 ####[facility] [id number] [place] [address] [place] Bacteria identified Cx Nom (Bld) CULTURE, BLOOD: No growth 5 days Normal [facility] Comment on above: Performed By: #### 6 00-7 ####[facility] [id number] [place] [address] [place] Bacteria Spec Anaerobe Culto n 06-04-2023 Bacteria identified Anaer cx Nom (Unsp spec) Negative Normal [facility] Comment on above: Performed By: #### 6 35-3 ####[facility]IA [id number] [place] [address] [place] Performed By: #### 4 3408-4, 635-3 ####[facility]IA [id number] [place] [address] [place] Bacteria Tiss Culton [...] , Intermediate >4 , Resistant >8 Abnormal [facility] Comment on above: Performed By: #### 4 3408-4, 635-3 ####[facility]IA [id number] [place] [id number] [place] Bacteria Wnd Culton 06-04-19 24 Bacteria identified Cx Nom (Wound) CULTURE, WOUND: No growth 3 days GRAM STAIN: Rare Polymorphonuclear leukocytes No organisms seen Normal [facility] Comment on above: Performed By: #### 6 462-6 ####[facility]IA [id number] [place] [address] [place] Basic metabolic 2000 panelon 06-04-2023 Anion gap [Moles/Vol] 5 mmol/L Normal 5-16 [facility] Comment on above: Order Comment: Speci men Type: BLOOD SPECIMEN [facility] Facility[facility] Address: [address] [place] [address] Performed By: #### 5 7021-8, 4537-7 #### [facility] CLIA [id number] [address] [place] [address] [place] Calcium [Mass/Vol] 10.3 mg/dL Normal 8.5-10.5 [facility] Comment on above: Order Comment: Speci men Type: BLOOD SPECIMEN [facility] Facility[facility] Address: [address] [place] [address] Performed By: #### 5 7021-8, 4537-7 #### [facility] CLIA [id number] [address] [place] [address] [place] Chloride [Moles/Vol] 106 mmol/L Normal 98-107 [facility] Comment on above: Order Comment: Speci men Type: BLOOD SPECIMEN [facility] Facility[facility] Address: [address] [place] [address] Performed By: #### 5 7021-8, 4537-7 #### [facility] CLIA [id number] [address] [place], [place] [address] [place] CO2 [Moles/Vol] 27 mmol/L Normal 21-32 [facility] Comment on above: Order Comment: Speci men Type: BLOOD SPECIMEN [facility]ing Facility: [facility] Address: [address] [place] [address] Performed By: #### 5 7021-8, 4537-7 #### [facility] CLIA [id number] [address] [place] [address] [place] Creatinine [Mass/Vol] 0.52 mg/dL Normal 0.51-0.95 [facility] Comment on above: Order Comment: Speci men Type: BLOOD SPECIMEN [facility]ing Facility: [facility] Address: [address] [place] [address] Result Comment: Caron ents receiving either N-Acetylcysteine (NAC) or Metamizole prior to venipuncture, may have falsely depressed results. Performed By: #### 5 7021-8, 4537-7 #### [facility] CLIA [id number] [address] [place] [address] Creatinine and Glomerular filtration rate.predicted panel (S/P/Bld) 95 mL/min/1.73m??? Normal >=60 [facility] Comment on above: Order Comment: Anny hong Type: BLOOD SPECIMEN [facility] Facility: [facility] Address: [address] [place] [address] Result Comment: Neda mated Glomerular Filtration Rate [...] Performed By: #### 5 7021-8, 4537-7 #### [facility] CLIA [id number] [address] [place] [address] [place] Glucose [Mass/Vol] 109 mg/dL High 70-100 [facility] Comment on above: Order Comment: Anny hong Type: BLOOD SPECIMEN [facility] Facility: [facility] Address: [address] [place] [address] Result Comment: The [place] [employer] (ADA) provides guidance for cutoff [...] Standards of Medical Care in Diabetes 2016, [place] [employer]. Diabetes Care. 2016.39(Suppl 1). Results may be falsely elevated after the administration of Sulfapyridine. Results may be falsely depressed after the administration of Sulfasalazine. Performed By: #### 5 7021-8, 4537-7 #### [facility] CLIA [id number] [address] [place] [address] [place] Potassium [Moles/Vol] 5.0 mmol/L Normal 3.5-5.1 [facility] Comment on above: Order Comment: Speci men Type: BLOOD SPECIMEN [facility] Facility: [facility] Address: [address] [place] [address] Performed By: #### 5 7021-8, 4537-7 #### [facility] CLIA [id number] [address] [place] [address] [place] Sodium [Moles/Vol] 138 mmol/L Normal 136-145 [facility] Comment on above: Order Comment: Speci men Type: BLOOD SPECIMEN [facility] Facility[facility] Address: [address] [place] [address] Performed By: #### 5 7021-8, 4537-7 #### [facility] CLIA [id number] [address] [place] [address] [place] Urea nitrogen [Mass/Vol] 28 mg/dL High 7-26 [facility] Comment on above: Order Comment: Speci men Type: BLOOD SPECIMEN [facility] Facility: [facility] Address: [address] [place] [address] Performed By: #### 5 7021-8, 4537-7 #### [facility] CLIA [id number] [address] [place] [address] [place] CBC W Auto Differential pane l (Bld)on 06-04-2023 Basophils (Bld) [#/Vol] 10*3/uL Normal <0.11 [facility] Comment on above: Order Comment: Speci men Type: BLOOD SPECIMEN Ordering Facility: [facility] Address: [address] [place] [address] Performed By: #### 5 7021-8, 453-7 #### [facility] CLIA [id number] [address] [place] [address] [place] Basophils/100 WBC (Bld) 0.1 % Normal [facility] Comment on above: Order Comment: Speci men Type: BLOOD SPECIMEN Ordering Facility: [facility] Address: [address] [place] [address] Performed By: #### 5 7021-8, 7 #### [facility] CLIA [id number] [address] [place] [address] [place] Differential cell count method Nom (Bld) Auto Normal [facility] Comment on above: Order Comment: Speci men Type: BLOOD SPECIMEN [facility]ing Facility: [facility] Address: [address] [place] [address] Performed By: #### 5 7021-8, 7-7 #### [facility] CLIA [id number] [address] [place] [address] [place] Eosinophils (Bld) [#/Vol] 0.03 10*3/uL Normal <0.46 [facility] Comment on above: Order Comment: Speci men Type: BLOOD SPECIMEN [facility]ing Facility: [facility] Address: [address] [place] [address] Performed By: #### 5 7021-8, 4537-7 #### [facility] CLIA [id number] [address] [place] [address] [place] Eosinophils/100 WBC (Bld) 0.2 % Normal [facility] Comment on above: Order Comment: Speci men Type: BLOOD SPECIMEN Ordering Facility: [facility] Address: [address] [place] [address] Performed By: #### 5 7021-8, 4537-7 #### [facility] CLIA [id number] [address] [place] [address] [place] Erythrocyte distribution width (RBC) [Ratio] 14.8 % Normal 11.5-15.0 [facility] Comment on above: Order Comment: Speci men Type: BLOOD SPECIMEN [facility]ing Facility: [facility] Address: [address] [place] [address] Performed By: #### 5 7021-8, 4537-7 #### [facility] CLIA [id number] [address] [place] [address] [place] Hematocrit (Bld) [Volume fraction] 33.7 % Low 36.0-46.0 [facility] Comment on above: Order Comment: Speci men Type: BLOOD SPECIMEN [facility]ing Facility: [facility] Address: [address] [place] [address] Performed By: #### 5 7021-8, 4537-7 #### [facility] CLIA [id number] [address] [place] [address] [place] Hemoglobin (Bld) [Mass/Vol] 10.8 g/dL Low 11.5-15.5 [facility] Comment on above: Order Comment: Speci men Type: BLOOD SPECIMEN Ordering Facility: [facility] Address: [address] [place] [address] Performed By: #### 5 7021-8, 4537-7 #### [facility] CLIA [id number] [address] [place] [address] [place] Immature granulocytes (Bld) [#/Vol] 0.14 10*3/uL High <0.10 [facility] Comment on above: Order Comment: Speci men Type: BLOOD SPECIMEN [facility]ing Facility: [facility] Address: [address] [place] [address] Performed By: #### 5 7021-8, 4536-7 #### [facility] CLIA [id number] [address] [place] [address] [place] Immature granulocytes/100 WBC (Bld) 0.9 % Normal [facility] Comment on above: Order Comment: Speci men Type: BLOOD SPECIMEN Ordering Facility: [facility] Address: [address] [place] [address] Performed By: #### 5 7021-8, 7 #### [facility] CLIA [id number] [address] [place] [address] [place] Lymphocytes (Bld) [#/Vol] 2.95 10*3/uL Normal 1.00-4.00 [facility] Comment on above: Order Comment: Speci men Type: BLOOD SPECIMEN [facility]ing Facility: [facility] Address: [address] [place] [address] Performed By: #### 5 7021-8, 7 #### [facility] CLIA [id number] [address] [place] [address] [place] Lymphocytes/100 WBC (Bld) 18.9 % Normal [facility] Comment on above: Order Comment: Speci men Type: BLOOD SPECIMEN Ordering Facility: [facility] Address: [facility] [address] Performed By: #### 5 7021-8, 4536-7 #### [facility] CLIA [id number] [address] [place] [address] [place] MCH (RBC) [Entitic mass] 25.0 pg Low 26.0-34.0 [facility] Comment on above: Order Comment: Speci men Type: BLOOD SPECIMEN Ordering Facility: [facility] Address: [facility] [place] [address] Performed By: #### 5 7021-8, 4536-7 #### [facility] CLIA [id number] [address] [place] [address] [place] MCHC (RBC) [Mass/Vol] 32.0 g/dL Normal 30.5-36.0 [facility] Comment on above: Order Comment: Speci men Type: BLOOD SPECIMEN Ordering Facility: [facility] Address: [address] [place] [id number] Performed By: #### 5 7021-8, 4537-7 #### [facility] CLIA [id number] [address] [place] [address] [place] MCV (RBC) [Entitic vol] 78.0 fL Low 80.0-100.0 [facility] Comment on above: Order Comment: Speci men Type: BLOOD SPECIMEN [facility]ing Facility: [facility] Address: [address] [place] [address] Performed By: #### 5 7021-8, 4537-7 #### [facility] CLIA [id number] [address] [place] [address] [place] Monocytes (Bld) [#/Vol] 1.14 10*3/uL High <0.87 [facility] Comment on above: Order Comment: Speci men Type: BLOOD SPECIMEN Ordering Facility: [facility] Address: [address] [place] [address] Performed By: #### 5 7021-8, 4537-7 #### [facility] CLIA [id number] [address] [place] [address] [place] Monocytes/100 WBC (Bld) 7.3 % Normal [facility] Comment on above: Order Comment: Speci men Type: BLOOD SPECIMEN Ordering Facility: [facility] Address: [address] [place] [address] Performed By: #### 5 7021-8, 4537-7 #### [facility] CLIA [id number] [address] [place] [address] [place] Neutrophils (Bld) [#/Vol] 11.33 10*3/uL High 1.45-7.50 [facility] Comment on above: Order Comment: Speci men Type: BLOOD SPECIMEN Ordering Facility: [facility] Address: [address] [place], [place] [address] Performed By: #### 5 7021-8, 4537-7 #### [facility] CLIA [id number] [address] [place] [address] [place] Neutrophils/100 WBC (Bld) 72.6 % Normal [facility] Comment on above: Order Comment: Speci men Type: BLOOD SPECIMEN Ordering Facility: [facility] Address: [address] [place] [address] Performed By: #### 5 7021-8, 4536-7 #### [facility] CLIA [id number] [address] [place] [address] [place] Nucleated RBC (Bld) [#/Vol] 10*3/uL Normal <0.01 [facility] Comment on above: Order Comment: Speci men Type: BLOOD SPECIMEN Ordering Facility: [facility] Address: [address] [place] [address] Performed By: #### 5 7021-8, 4536-7 #### [facility] CLIA [id number] [address] [place] [address] [place] Nucleated RBC/100 WBC (Bld) [Ratio] 0.0 /100 WBC Normal [facility] Comment on above: Order Comment: Speci men Type: BLOOD SPECIMEN Ordering Facility: [facility] Address: [address] [place] [address] Performed By: #### 5 7021-8, 4536-7 #### [facility] CLIA [id number] [address] [place] [address] [place] Platelet mean volume (Bld) [Entitic vol] 8.5 fL Low 9.0-12.7 [facility] Comment on above: Order Comment: Speci men Type: BLOOD SPECIMEN Ordering Facility: [facility] Address: [address] [place] [address] Performed By: #### 5 7021-8, 4537-7 #### [facility] CLIA [id number] [address] [place] [address] [place] Platelets (Bld) [#/Vol] 441 10*3/uL High 150-400 [facility] Comment on above: Order Comment: Speci men Type: BLOOD SPECIMEN Ordering Facility: [facility] Address: [address] [place], [place] [address] Performed By: #### 5 7021-8, 4537-7 #### [facility] CLIA [id number] [address] [place], [place] [address] [place] RBC (Bld) [#/Vol] 4.32 10*6/uL Normal 3.90-5.20 [facility] Comment on above: Order Comment: Speci men Type: BLOOD SPECIMEN Ordering Facility: [facility] Address: [address] [place], [place] [address] Performed By: #### 5 7021-8, 4537-7 #### [facility] CLIA [id number] [address] [place], [place] [address] [place] WBC (Bld) [#/Vol] 15.61 10*3/uL High 3.70-11.00 [facility] Comment on above: Order Comment: Speci men Type: BLOOD SPECIMEN Ordering Facility: [facility] Address: [address] [place] [address] Performed By: #### 5 7021-8, 4537-7 #### [facility] CLIA [id number] [address] [place], [place] [address] [place] ECHOon 06-04-2023 Echocardiography Echocardiography Rep ort: Transthoracic Echo [facility] Date of service: 06/04/2023 10:45:44 AM Ordering [...] * * Final * * * CC [employer] Image : [id number] Normal [facility] Iron and Iron binding capaci ty panelon 06-04-2023 Iron [Mass/Vol] 58 ug/dL Normal 50-170 [facility] Comment on above: Order Comment: Anny hong Type: BLOOD SPECIMEN [facility] Facility: [facility] Address: [address] [place] [address] Result Comment: Caron ents treated with metal-binding drugs (e.g.deferoxamine) may have depressed iron values, as chelated iron may not properly react in the Siemens iron assay. Performed By: #### 5 7021-8, 4537-7 #### [facility] CLIA [id number] [address] [place] [address] [place] Iron binding capacity [Mass/Vol] 336 ug/dL Normal 221-481 [facility] Comment on above: Order Comment: Anny hong Type: BLOOD SPECIMEN Ordering Facility: [facility] Address: [address] [place], [place] [address] Performed By: #### 5 7021-8, 4537-7 #### [facility] CLIA [id number] [address] [place], [place] [address] [place] Iron/TIBC [Molar ratio] 17.3 % Low 22.0-44.0 [facility] Comment on above: Order Comment: Speci men Type: BLOOD SPECIMEN [facility]ing Facility: [facility] Address: [address] [place], [place] [address] Performed By: #### 5 7021-8, 4537-7 #### [facility] CLIA [id number] [address] [place], [place] [address] [place] Microorganism Spec Culton Microorganism identified Cx Nom (Unsp spec) CULTURE, FUNGAL: No Fungus isolated after 28 days FUNGAL SMEAR: No fungus seen Normal [facility] Comment on above: Performed By: #### 1 1475-1 ####[facility] [id number] [facility] [place] [id number] [place] OPERATIVE NOon 06-04-2023 OPERATIVE NO HNO ID: [id number] Author: DYLAN FINN DO Service: Orthopaedic Surgery Author Type: Physician Type: Operative Report Filed: 06/06/2023 10:52 Note Text: [facility] - OPERATIVE REPORT ZOILA WEBSTER Ysabel : 1945 AGE: 78. SEX: F PATIENT TYPE: I HOSP SVC: Surgical LOCATION: [id number]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 Grocery: NED PAK ([phone])[facility])[address] [place] [address] Neutrophils/100 WBC (Bld) 74.4 % Normal 40.0-80.0 [facility] Comment on above: Performed By: #### L [id number] ####Assistant Grocery: NED PAK ([phone])[facility])[address] [place] [address] NRBC (PER 100 WBCS) BY AUTOMATED COUNT 0.0 /100 WBCs Normal 0.0-2.0 [facility] Comment on above: Performed By: #### L [id number] ####Assistant Grocery: NED PAK ([id number])[facility])[address] [place] [address] Platelet mean volume (Bld) [Entitic vol] 6.7 fL Low 7.4-12.4 [facility] Comment on above: Performed By: #### L [id number] ####Assistant Grocery: NED PAK ([id number])[facility])[address] [place] [address] Platelets (Bld) [#/Vol] 510 10*3/uL High 140-440 [facility] Comment on above: Performed By: #### L [id number] ####Assistant Grocery: NED PAK ([id number])[facility])[address] [place] [address] RBC (Bld) [#/Vol] 2.71 10*6/uL Low 3.8-5.20 [facility] Comment on above: Performed By: #### L [id number] ####Assistant Grocery: NED PAK ([phone])[facility])[address] [place] [address] WBC (Bld) [#/Vol] 8.6 10*3/uL Normal 3.6-10.7 [facility] Comment on above: Performed By: #### L [id number] ####Assistant Grocery: NED PAK ([id number])[facility])[address] [place] [address] MAGNESIUMon 02-06-2023 Magnesium [Mass/Vol] 2.5 mg/dL High 1.6-2.3 [facility] Comment on above: Performed By: #### L AB103, [id number], LAB15 ####Assistant Grocery: NED PAK ([id number])[facility])[address] [place] [address] Nursing Noteon 02-06-2023 Nursing Note Notified Renée wolf's daughter that patient was transferred to . Normal [facility] Nursing Note Transport here to [facility] patient to [facility]. 4 bags + of belongings sent with patient. Normal [facility] Nursing Note Patient pulled up in bed. Bed pads changed. BMP sent to lab. Normal [facility] Nursing Note Patient with gown of f and at end of bed. Put gown back on patient. Pulled patient up in bed and changed pull pads. Normal [facility] PHOSPHORUSon 02-06-2023 Phosphate [Mass/Vol] 3.6 mg/dL Normal 2.5-4.5 [facility] Comment on above: Performed By: #### L AB103, OKU915, LAB15 ####Assistant Grocery: NED PAK ([id number])[facility])[address] [place] [address] Progress Noteon 02-06-2023 Progress Note Normal [facility] Progress Note Normal [facility] BASIC METABOLIC PANELon 11- Anion gap [Moles/Vol] 4 mmol/L Normal 3-13 [facility] Comment on above: Performed By: #### L AB15, SGR383, OCV074 ####Assistant Grocery: NED PAK ([id number])[address] Calcium [Mass/Vol] 9.0 mg/dL Normal 8.4-10.4 [facility] Comment on above: Performed By: #### L AB15, YIU633, WJV425 ####Assistant Grocery: NED PAK ([phone])[facility])[address] [place] [address] Chloride [Moles/Vol] 110 mmol/L High 98-107 [facility] Comment on above: Performed By: #### L AB15, BXD819, SEI027 ####Assistant Grocery: NED PAK ([phone])[facility])[address] [place] [address] CO2 [Moles/Vol] 31 mmol/L High 22-30 [facility] Comment on above: Performed By: #### L AB15, TEF220, PCL158 ####Assistant Grocery: NED PAK ([phone])[facility])[address] [place] [address] Creatinine [Mass/Vol] 0.82 mg/dL Normal 0.52-1.04 [facility] Comment on above: Performed By: #### L AB15, ZGL370, BCN003 ####Assistant Grocery: NED PAK ([phone])[facility])[address] [place] [address] [place] GLOMERULAR FILTRATION RATE ML/MIN/1.73 SQ M.PREDICTED 73.3 mL/min/1.73m*2 Normal >60.0 [facility] Comment on above: Result Comment: Calc ulation based on the Chronic Kidney Disease Epidemiology Collaboration (CKD-EPI) equation refit without adjustment for race Performed By: #### L AB15, AZZ898, XTG383 ####Assistant Grocery: NED PAK ([id number])[facility])[address] [place] [address] Glucose [Mass/Vol] 102 mg/dL High 70-100 [facility] Comment on above: Performed By: #### L AB15, ZTU813, URW638 ####Assistant Grocery: NED PAK ([id number])[facility])[address] [place] [address] Potassium [Moles/Vol] 3.4 mmol/L Low 3.5-5.1 [facility] Comment on above: Performed By: #### L AB15, QJD557, FKX615 ####Assistant Grocery: NED PAK ([id number])[facility])[address] [place] [address] [place] Sodium [Moles/Vol] 146 mmol/L High 135-145 [facility] Comment on above: Performed By: #### L AB15, RPS340, HTS383 ####Assistant Grocery: NED PAK ([id number])[facility])[address] [place] [address] [place] Urea nitrogen [Mass/Vol] 22 mg/dL High 7-17 [facility] Comment on above: Performed By: #### L AB15, UWW031, GPI170 ####Assistant Grocery: END PAK ([id number])[facility])[address] [place] [address] CARECOORDon 02-05-2023 CARECOORD Normal [facility] CBC WITH AUTO DIFFERENTIALon 02-05-2023 Basophils (Bld) [#/Vol] 0.1 10*3/uL Normal 0.0-0.2 [facility] Comment on above: Performed By: #### L [id number] ####Assistant Grocery: NED PAK ([id number])[facility])[address] [place] [address] Basophils/100 WBC (Bld) 0.5 % Normal 0.0-2.0 [facility] Comment on above: Performed By: #### L [id number] ####Assistant Grocery: NED PAK ([id number])[facility])[address] [place] [address] Eosinophils (Bld) [#/Vol] 0.0 10*3/uL Normal 0.0-0.5 [facility] Comment on above: Performed By: #### L [id number] ####Assistant Grocery: NED PAK ([id number])[facility])[address] [place] [address] Eosinophils/100 WBC (Bld) 0.2 % Low 1.0-6.0 [facility] Comment on above: Performed By: #### L [id number] ####Assistant Grocery: NED PAK ([id number])[facility])[address] [place] [address] Erythrocyte distribution width (RBC) [Ratio] 15.9 % High 11.5-14.5 [facility] Comment on above: Performed By: #### L [id number] ####Assistant Grocery: NED PAK ([id number])[facility])[address] [place] [address] ERYTHROCYTE MEAN CORPUSCULAR HEMOGLOBIN CONCENTRATION (G/DL) BY AUTOMATED 32.0 % Normal 32.0-36.0 [facility] Comment on above: Performed By: #### L [id number] ####Assistant Grocery: NED PAK ([id number])[facility])[address] [place] [address] Hematocrit (Bld) [Volume fraction] 25.8 % Low 35.0-47.0 [facility] Comment on above: Performed By: #### L [id number] ####Assistant Grocery: NED PAK ([id number])[facility])[address] [place] [address] Hemoglobin (Bld) [Mass/Vol] 8.3 g/dL Low 11.7-16.0 [facility] Comment on above: Performed By: #### L GW1230 ####Assistant Grocery: NED PAK ([id number])[facility])[address] [place] [address] Lymphocytes (Bld) [#/Vol] 1.8 10*3/uL Normal 1.0-4.3 [facility] Comment on above: Performed By: #### L [id number] ####Assistant Grocery: NED PAK ([id number])[facility])[address] [place] [address] Lymphocytes/100 WBC (Bld) 10.9 % Low 20.0-40.0 [facility] Comment on above: Performed By: #### L [id number] ####Assistant Grocery: NED PAK ([id number])[facility])[address] [place] [address] MCH (RBC) [Entitic mass] 28.0 pg Normal 26.0-34.0 [facility] Comment on above: Performed By: #### L [id number] ####Assistant Grocery: NED PAK ([id number])[facility])[address] [place] [address] MCV (RBC) [Entitic vol] 87.4 fL Normal 80.0-98.0 [facility] Comment on above: Performed By: #### L [id number] ####Assistant Grocery: NED PAK ([id number])[facility])[address] [place] [address] Monocytes (Bld) [#/Vol] 1.2 10*3/uL High 0.0-0.8 [facility] Comment on above: Performed By: #### L [id number] ####Assistant Grocery: NED PAK ([id number])[facility])[address] [place] [address] Monocytes/100 WBC (Bld) 7.3 % Normal 2.0-10.0 [facility] Comment on above: Performed By: #### L [id number] ####Assistant Grocery: NED PAK ([id number])[facility])[address] [place] [address] Neutrophils (Bld) [#/Vol] 13.6 10*3/uL High 1.8-7.0 [facility] Comment on above: Performed By: #### L [id number] ####Assistant Grocery: NED PAK ([id number])[facility])[address] [place] [address] Neutrophils/100 WBC (Bld) 81.1 % High 40.0-80.0 [facility] Comment on above: Performed By: #### L [id number] ####Assistant Grocery: NED PAK ([id number])[facility])[address] [place] [address] NRBC (PER 100 WBCS) BY AUTOMATED COUNT 0.0 /100 WBCs Normal 0.0-2.0 [facility] Comment on above: Performed By: #### L [id number] ####Assistant Grocery: NED PAK ([id number])[facility])[address] [place] [address] Platelet mean volume (Bld) [Entitic vol] 7.0 fL Low 7.4-12.4 [facility] Comment on above: Performed By: #### L [id number] ####Assistant Grocery: NED PAK ([id number])[facility])[address] [place] [address] Platelets (Bld) [#/Vol] 571 10*3/uL High 140-440 [facility] Comment on above: Performed By: #### L [id number] ####Assistant Grocery: NED PAK ([id number])[facility])[address] [place] [address] RBC (Bld) [#/Vol] 2.95 10*6/uL Low 3.8-5.20 [facility] Comment on above: Performed By: #### L [id number] ####Assistant Grocery: NED PAK ([id number])[facility])[address] [place] [address] WBC (Bld) [#/Vol] 17.0 10*3/uL High 3.6-10.7 [facility] Comment on above: Performed By: #### L [id number] ####Assistant Grocery: NED PAK ([id number])[facility])[address] [place] [address] MAGNESIUMon 02-05-2023 Magnesium [Mass/Vol] 2.7 mg/dL High 1.6-2.3 [facility] Comment on above: Performed By: #### Tameka AB15, ZIG161, DQI972 ####Assistant Grocery: NED PAK ([id number])[facility])[address] [place] [address] PHOSPHORUSon 02-05-2023 Phosphate [Mass/Vol] 3.5 mg/dL Normal 2.5-4.5 [facility] Comment on above: Performed By: #### L AB15, KZR174, AKC388 ####Assistant Grocery: NED PAK ([id number])[facility])[address] [place] [address] Progress Noteon 02-05-2023 Progress Note Normal [facility] Progress Note Normal [facility] Progress Note Normal [facility] Progress Note Normal [facility] Progress Note Normal [facility] XR CHEST 1 VIEWon 02-05-2023 XR CHEST 1 VIEW Normal [facility] BASIC METABOLIC PANELon 01-20 Anion gap [Moles/Vol] 1 mmol/L Low 3-13 [facility] Comment on above: Performed By: #### L AB103, LAB15, YEA718, VGR371 ####Assistant Grocery: NED PAK ([id number])[facility])[address] [place] [address] Calcium [Mass/Vol] 8.0 mg/dL Low 8.4-10.4 [facility] Comment on above: Performed By: #### L AB103, LAB15, XCK066, HPB952 ####Assistant Grocery: NED PAK ([id number])[facility])[address] [place] [address] [place] Chloride [Moles/Vol] 106 mmol/L Normal 98-107 [facility] Comment on above: Performed By: #### L AB103, LAB15, IBY465, YZS891 ####Assistant Grocery: NED PAK ([id number])[facility])[address] [place] [address] CO2 [Moles/Vol] 32 mmol/L High 22-30 [facility] Comment on above: Performed By: #### L AB103, LAB15, MDM951, CPX231 ####Assistant Grocery: NED PAK ([id number])[facility])[address] [place] [address] Creatinine [Mass/Vol] 0.56 mg/dL Normal 0.52-1.04 [facility] Comment on above: Performed By: #### L AB103, LAB15, GBQ205, WKJ310 ####Assistant Grocery: NED PAK ([id number])[facility])[address] [place] [address] [place] GLOMERULAR FILTRATION RATE ML/MIN/1.73 SQ M.PREDICTED >90.0 Normal >60.0 [facility] Comment on above: Result Comment: Calc ulation based on the Chronic Kidney Disease Epidemiology Collaboration (CKD-EPI) equation refit without adjustment for race Performed By: #### L AB103, LAB15, COY305, ZKH753 ####Assistant Grocery: NED PAK ([id number])[facility])[address] [place] [address] Glucose [Mass/Vol] 123 mg/dL High 70-100 [facility] Comment on above: Performed By: #### L AB103, LAB15, WAK046, AHF220 ####Assistant Grocery: NED PAK ([id number])[facility])[address] [place] [address] Potassium [Moles/Vol] 3.7 mmol/L Normal 3.5-5.1 [facility] Comment on above: Performed By: #### L AB103, LAB15, LDV143, ADR656 ####Assistant Grocery: NED PAK ([id number])[facility])[address] [place] [address] Sodium [Moles/Vol] 138 mmol/L Normal 135-145 [facility] Comment on above: Performed By: #### L AB103, LAB15, URN216, GHY839 ####Assistant Grocery: NED PAK ([id number])[facility])[address] [place] [address] Urea nitrogen [Mass/Vol] 18 mg/dL High 7-17 [facility] Comment on above: Performed By: #### L AB103, LAB15, NTC258, YWK015 ####Assistant Grocery: NED PAK ([id number])[facility])[address] [place] [address] CARECOORDon 02-04-2023 CAR[place]OORD Normal [facility] CBC WITH AUTO DIFFERENTIALon 02-04-2023 Basophils (Bld) [#/Vol] 0.0 10*3/uL Normal 0.0-0.2 [facility] Comment on above: Performed By: #### L UV1791 ####Assistant Grocery: NED PAK ([id number])[facility])[address] [place] [address] Basophils/100 WBC (Bld) 0.2 % Normal 0.0-2.0 [facility] Comment on above: Performed By: #### L [id number] ####Assistant Grocery: NED PAK ([id number])[facility])[address] [place] [address] Eosinophils (Bld) [#/Vol] 0.0 10*3/uL Normal 0.0-0.5 [facility] Comment on above: Performed By: #### L PD8942 ####Assistant Grocery: NED PAK ([id number])[facility])[address] [place] [address] Eosinophils/100 WBC (Bld) 0.2 % Low 1.0-6.0 [facility] Comment on above: Performed By: #### L EF1603 ####Assistant Grocery: NED PAK ([id number])[facility])[address] [place] [address] Erythrocyte distribution width (RBC) [Ratio] 15.8 % High 11.5-14.5 [facility] Comment on above: Performed By: #### L DI9925 ####Assistant Grocery: NED PAK ([id number])[facility])[address] [place] [address] ERYTHROCYTE MEAN CORPUSCULAR HEMOGLOBIN CONCENTRATION (G/DL) BY AUTOMATED 31.9 % Low 32.0-36.0 [facility] Comment on above: Performed By: #### L PS6936 ####Assistant Grocery: NED PAK ([id number])[facility])[address] [place] [address] Hematocrit (Bld) [Volume fraction] 23.0 % Low 35.0-47.0 [facility] Comment on above: Performed By: #### L [id number] ####Assistant Grocery: NED PAK ([id number])[facility])[address] [place] [address] Hemoglobin (Bld) [Mass/Vol] 7.3 g/dL Low 11.7-16.0 [facility] Comment on above: Performed By: #### L [id number] ####Assistant Grocery: NED PAK ([id number])[facility])[address] [place] [address] Lymphocytes (Bld) [#/Vol] 1.3 10*3/uL Normal 1.0-4.3 [facility] Comment on above: Performed By: #### L [id number] ####Assistant Grocery: NED PAK ([id number])[facility])[address] [place] [address] Lymphocytes/100 WBC (Bld) 7.5 % Low 20.0-40.0 [facility] Comment on above: Performed By: #### L [id number] ####Assistant Grocery: NED PAK ([id number])[facility])[address] [place] [address] MCH (RBC) [Entitic mass] 28.0 pg Normal 26.0-34.0 [facility] Comment on above: Performed By: #### L TO7796 ####Assistant Grocery: NED PAK ([id number])[facility])[address] [place] [address] MCV (RBC) [Entitic vol] 87.8 fL Normal 80.0-98.0 [facility] Comment on above: Performed By: #### L [id number] ####Assistant Grocery: NED PAK ([id number])[facility])[address] [place] [address] Monocytes (Bld) [#/Vol] 0.9 10*3/uL High 0.0-0.8 [facility] Comment on above: Performed By: #### L HT5106 ####Assistant Grocery: NED PAK ([id number])[facility])[address] [place] [address] Monocytes/100 WBC (Bld) 5.5 % Normal 2.0-10.0 [facility] Comment on above: Performed By: #### L WR0392 ####Assistant Grocery: NED PAK ([id number])[facility])[address] [place] [address] Neutrophils (Bld) [#/Vol] 14.4 10*3/uL High 1.8-7.0 [facility] Comment on above: Performed By: #### L ME1752 ####Assistant Grocery: NED PAK ([id number])[facility])[address] [place] [address] Neutrophils/100 WBC (Bld) 86.6 % High 40.0-80.0 [facility] Comment on above: Performed By: #### L PD5637 ####Assistant Grocery: NED PAK ([id number])[facility])[address] [place] [address] NRBC (PER 100 WBCS) BY AUTOMATED COUNT 0.0 /100 WBCs Normal 0.0-2.0 [facility] Comment on above: Performed By: #### L YR7570 ####Assistant Grocery: NED PAK ([id number])[facility])[address] [place] [address] Platelet mean volume (Bld) [Entitic vol] 7.3 fL Low 7.4-12.4 [facility] Comment on above: Performed By: #### L [id number] ####Assistant Grocery: NED PAK ([id number])[facility])[address] [place] [address] Platelets (Bld) [#/Vol] 410 10*3/uL Normal 140-440 [facility] Comment on above: Performed By: #### L [id number] ####Assistant Grocery: NED PAK ([id number])[facility])[address] [place] [address] [place] RBC (Bld) [#/Vol] 2.62 10*6/uL Low 3.8-5.20 [facility] Comment on above: Performed By: #### L [id number] ####Assistant Grocery: NED PAK ([id number])[facility])[address] [place] [address] WBC (Bld) [#/Vol] 16.2 10*3/uL High 3.6-10.7 [facility] Comment on above: Performed By: #### L KT7545 ####Assistant Grocery: NED PAK ([id number])[address] MAGNESIUMon 02-04-2023 Magnesium [Mass/Vol] 2.5 mg/dL High 1.6-2.3 [facility] Comment on above: Performed By: #### L AB103, LAB15, ZIA797, HZH151 ####Assistant Grocery: NED PAK ([id number])[address] Nursing Noteon 02-04-2023 Nursing Note Normal [facility] Nursing Note Patient without any void since duarte removed. Bladder scan done indicating >550cc of volume in bladder. Dr. Jalloh on unit and notified face to face. Will straight cath per protocol and have nightshift reassess bladder scan. Will con't to monitor. Normal [facility] Nursing Note [address] sterile wa ter inserted through duarte catheter per order set. Clamped off. Then duarte was pulled for bladder trial. Normal [facility] PHOSPHORUSon 02-04-2023 Phosphate [Mass/Vol] 3.2 mg/dL Normal 2.5-4.5 [facility] Comment on above: Performed By: #### L AB103, LAB15, UCV941, XRZ120 ####Assistant Grocery: NED PAK ([id number])[address] PROCALCITONIN TESTon 023 PROCALCITONIN 0.14 ng/mL High 0.00-0.09 [facility] Comment on above: Result Comment: SANDRA R COMMENTS:PCT <0.50 = Low risk of severe sepsis and/or septic shock.PCT >2.00 = High risk of severe sepsis and/or septic shock. Performed By: #### L [id number] ####Assistant Grocery: NED PAK ([id number])[facility])[address] [place] [address] Progress Noteon 02-04-2023 Progress Note Normal [facility] Progress Note Normal [facility] Progress Note Normal [facility] Progress Note Normal [facility] Progress Note Normal [facility] TOTAL PROTEINon 02-04-2023 Protein [Mass/Vol] 5.4 g/dL Low 6.3-8.2 [facility] Comment on above: Performed By: #### L AB103, LAB15, VCZ480, KNP662 ####Assistant Grocery: NED PAK ([id number])[facility])[address] [place] [address] BASIC METABOLIC PANELon 01-20 Anion gap [Moles/Vol] 6 mmol/L Normal 3-13 [facility] Comment on above: Performed By: #### L AB103, NCI603, LAB15 ####Assistant Grocery: NED PAK ([id number])[facility])[address] [place] [address] Calcium [Mass/Vol] 8.4 mg/dL Normal 8.4-10.4 [facility] Comment on above: Performed By: #### L AB103, RRO568, LAB15 ####Assistant Grocery: NED PAK ([id number])[facility])[address] [place] [address] Chloride [Moles/Vol] 106 mmol/L Normal 98-107 [facility] Comment on above: Performed By: #### L AB103, [id number], LAB15 ####Assistant [employer]: NED PAK ([id number])[facility] ([facility])[address] [place] [address] CO2 [Moles/Vol] 28 mmol/L Normal 22-30 [facility] Comment on above: Performed By: #### L AB103, [id number], LAB15 ####Assistant [employer]: NED PAK ([id number])[facility] ([facility])[address] [place] [address] Creatinine [Mass/Vol] 0.55 mg/dL Normal 0.52-1.04 [facility] Comment on above: Performed By: #### L AB103, [id number], LAB15 ####Assistant [employer]: NED PAK ([id number])[facility])[address] [place] [address] GLOMERULAR FILTRATION RATE ML/MIN/1.73 SQ M.PREDICTED >90.0 Normal >60.0 [facility] Comment on above: Result Comment: Calc ulation based on the Chronic Kidney Disease Epidemiology Collaboration (CKD-EPI) equation refit without adjustment for race Performed By: #### L AB103, [id number], LAB15 ####Assistant [employer]: NED PAK ([id number])[facility])[address] [place] [address] Glucose [Mass/Vol] 131 mg/dL High 70-100 [facility] Comment on above: Performed By: #### L AB103, [id number], LAB15 ####Assistant [employer]: NED PAK ([phone])[facility])[address] [place] [address] [place] Potassium [Moles/Vol] 4.0 mmol/L Normal 3.5-5.1 [facility] Comment on above: Performed By: #### L AB103, [id number], LAB15 ####Assistant [employer]: NED PAK ([phone])[facility])[address] [place] [address] Sodium [Moles/Vol] 140 mmol/L Normal 135-145 [facility] Comment on above: Performed By: #### L AB103, [id number], LAB15 ####Assistant [employer]: NED PAK ([id number])[facility])[address] [place] [address] Urea nitrogen [Mass/Vol] 19 mg/dL High 7-17 [facility] Comment on above: Performed By: #### L AB103, [id number], LAB15 ####Assistant Grocery: NED PAK ([phone])[facility])[address] [place] [address] BLOOD CULTUREon 02-03-2023 Bacteria identified Cx Nom (Bld) Normal [facility] Comment on above: Performed By: #### L AB462 ####Assistant Grocery: NED PAK ([phone])[facility])[address] [place] [address] Bacteria identified Cx Nom (Bld) Normal [facility] Comment on above: Performed By: #### L AB462 ####Assistant Grocery: NED PAK ([phone])[facility])[address] [place] [address] CBC WITH AUTO DIFFERENTIALon 02-03-2023 Erythrocyte distribution width (RBC) [Ratio] 16.0 % High 11.5-14.5 [facility] Comment on above: Performed By: #### L [id number], [id number] ####Assistant Grocery: NED PAK ([phone])[facility])[address] [place] [address] ERYTHROCYTE MEAN CORPUSCULAR HEMOGLOBIN CONCENTRATION (G/DL) BY AUTOMATED 32.3 % Normal 32.0-36.0 [facility] Comment on above: Performed By: #### L [id number], [id number] ####Assistant Grocery: NED PAK ([phone])[facility])[address] [place] [address] Hematocrit (Bld) [Volume fraction] 26.6 % Low 35.0-47.0 [facility] Comment on above: Performed By: #### L OH4284, [id number] ####Assistant Grocery: NED PAK ([phone])[facility])[address] [place] [address] Hemoglobin (Bld) [Mass/Vol] 8.6 g/dL Low 11.7-16.0 [facility] Comment on above: Performed By: #### L OG0346, [id number] ####Assistant Grocery: NED PAK ([id number])[facility])[address] [place] [address] MCH (RBC) [Entitic mass] 28.1 pg Normal 26.0-34.0 [facility] Comment on above: Performed By: #### L ZX7268, ARA8716 ####Assistant Grocery: NED PAK ([phone])[facility])[address] [place] [address] MCV (RBC) [Entitic vol] 87.1 fL Normal 80.0-98.0 [facility] Comment on above: Performed By: #### L XJ2166, [id number] ####Assistant Grocery: NED PAK ([phone])[facility])[address] [place] [address] NRBC (PER 100 WBCS) BY AUTOMATED COUNT 0.1 /100 WBCs Normal 0.0-2.0 [facility] Comment on above: Performed By: #### L [id number], [id number] ####Assistant Grocery: NED PAK ([phone])[facility])[address] [place] [address] Platelet mean volume (Bld) [Entitic vol] 7.8 fL Normal 7.4-12.4 [facility] Comment on above: Performed By: #### L MJ5900, [id number] ####Assistant Grocery: NED PAK ([phone])[facility])[address] [place] [address] Platelets (Bld) [#/Vol] 446 10*3/uL High 140-440 [facility] Comment on above: Performed By: #### L IE9899, WLE5887 ####Assistant Grocery: NED PAK ([id number])[facility])[address] [place] [address] RBC (Bld) [#/Vol] 3.06 10*6/uL Low 3.8-5.20 [facility] Comment on above: Performed By: #### L HV7082, UCF0255 ####Assistant Grocery: NED PAK ([id number])[facility])[address] [place] [address] WBC (Bld) [#/Vol] 22.5 10*3/uL High 3.6-10.7 [facility] Comment on above: Performed By: #### L [id number], [id number] ####Assistant Grocery: NED PAK ([phone])[facility])[address] [place] [address] CULTURE ANAEROBICon 02-04-20 23 CULTURE ANAEROBIC Normal [facility] Comment on above: Performed By: #### L AB233 ####Assistant Grocery: NED PAK ([phone])[facility])[address] [place] [address] CULTURE, AEROBIC BACTERIA [facility] GRAM STAINon 02-03-2023 CULTURE, AEROBIC BACTERIA WITH GRAM STAIN Normal [facility] Comment on above: Performed By: #### L AB897 ####Assistant Grocery: NED PAK ([phone])[facility])[address] [place] [address] FUNGAL CULTUREon 02-03-2023 FUNGAL CULTURE Normal [facility] Comment on above: Performed By: #### L [id number] ####Assistant Grocery: NED PAK ([phone])[facility])[address] [place] [address] LACTATE DEHYDROGENASE, BODY FLUIDon 02-03-2023 LACTATE DEHYDROGENASE, BODY FLUID BY LAC->PYR 316 U/L Normal No Range [facility] Comment on above: Performed By: #### L AB188, [id number] ####Assistant Grocery: NED PAK ([phone])[facility])[address] [place] [address] MAGNESIUMon 02-03-2023 Magnesium [Mass/Vol] 2.6 mg/dL High 1.6-2.3 [facility] Comment on above: Performed By: #### L AB103, XJZ738, LAB15 ####Assistant Grocery: NED PAK ([phone])[facility])[address] [place] [address] MANUAL DIFFERENTIALon 2022 CELLS COUNTED TOTAL (#) IN BLOOD 100 Normal [facility] Comment on above: Performed By: #### L [id number], [id number] ####Assistant Grocery: NED PAK ([id number])[facility])[address] [place] [address] DIFFERENTIAL METHOD Automated differenti al reported after manual slide review Normal [facility] Comment on above: Performed By: #### L DZ8690, [id number] ####Assistant Grocery: NED PAK ([phone])[facility])[address] [place] [address] LEUKOCYTES (10*3/UL) NUCLEATED ERYTHROCYTE ADJUST 22.5 10*3/uL High 3.6-10.7 [facility] Comment on above: Performed By: #### L PX6429, [id number] ####Assistant Grocery: END PAK ([phone])[facility])[address] [place] [address] LYMPHOCYTES (10*3/UL) IN BLOOD BY MANUAL COUNT 1.8 10*3/uL Normal 1.0-4.3 [facility] Comment on above: Performed By: #### L BS4215, CKH5785 ####Assistant Grocery: NED PAK ([id number])[facility])[address] [place] [address] LYMPHOCYTES TOTAL PER COUNTED LEUKOCYTES BY MANUAL COUNT 8 Normal [facility] Comment on above: Performed By: #### L PP3549, HRI7044 ####Assistant Grocery: NED PAK ([id number])[facility])[address] [place] [address] [place] LYMPHOCYTES/100 LEUKOCYTES IN BLOOD BY MANUAL COUNT 8 % Low 20-40 [facility] Comment on above: Performed By: #### L DC9744, [id number] ####Assistant Grocery: NED PAK ([phone])[facility])[address] [place] [address] [place] MONOCYTES (10*3/UL) IN BLOOD BY MANUAL COUNT 0.9 10*3/uL High 0.0-0.8 [facility] Comment on above: Performed By: #### L [id number], HER1378 ####Assistant Grocery: NED PAK ([id number])[facility])[address] [place] [address] MONOCYTES TOTAL PER COUNTED LEUKOCYTES BY MANUAL COUNT 4 Normal [facility] Comment on above: Performed By: #### L CB0703, [id number] ####Assistant Grocery: NED PAK ([phone])[facility])[address] [place] [address] [place] MONOCYTES/100 LEUKOCYTES IN BLOOD BY MANUAL COUNT 4 % Normal 2-10 [facility] Comment on above: Performed By: #### L DL4480, VSR6963 ####Assistant Grocery: NED PAK ([phone])[facility])[address] [place] [address] [place] NEUTROPHILS (SEGS+BANDS) (10*3/UL) BY MANUAL COUNT 19.8 10*3/uL High 1.8-7.0 [facility] Comment on above: Performed By: #### L IQ5782, YAJ5828 ####Assistant Grocery: NED PAK ([id number])[facility])[address] [place] [address] [place] NEUTROPHILS TOTAL PER COUNTED LEUKOCYTES BY MANUAL COUNT 88 Normal [facility] Comment on above: Performed By: #### L PB5562, XBS7757 ####Assistant Grocery: NED PAK ([phone])[facility])[address] [place] [address] SEGEMENTED NEUTROPHILS/100 LEUKOCYTES BY MANUAL COUNT 88 % High 40-80 [facility] Comment on above: Performed By: #### L IS3745, VFH0382 ####Assistant Grocery: NED PAK ([phone])[facility])[address] [place] [address] PHOSPHORUSon 02-03-2023 Phosphate [Mass/Vol] 3.5 mg/dL Normal 2.5-4.5 [facility] Comment on above: Performed By: #### L AB103, VTG826, LAB15 ####Assistant Grocery: NED PAK ([phone])[facility])[address] [place] [address] PROTEIN BODY FLUIDon 023 PROTEIN, BODY FLUID 2.9 g/dL Normal No Range [facility] Comment on above: Performed By: #### L AB188, OKX394 ####Assistant Grocery: NED PAK ([phone])[facility])[address] [place] [address] TYPE OF BODY FLUID Pleural Fluid Normal [facility] Comment on above: Result Comment: SANDRA Baker COMMENTS:This test was developed and its performance characteristics determined by [employer]. It has not been cleared or approved by the [place] Food and Drug Administration. This test was performed in a CLIA certified laboratory and is intended for clinical purposes. Performed By: #### L AB188, GWS216 ####Assistant Grocery: NED PAK ([phone])[facility])[address] [place] [address] Result Comment: SANDRA Baker COMMENTS:This test was developed and its performance characteristics determined by [employer]. It has not been cleared or approved by the [place] Food and Drug Administration. This test was performed in a CLIA certified laboratory and is intended for clinical purposes.Lactate dehydrogenase in pericardial fluids is not diagnostically useful. Contamination with RBCs will cause falsely elevated results. Progress Noteon 02-03-2023 Progress Note Normal [facility] Progress Note Normal [facility] Progress Note Normal [facility] Progress Note Normal [facility] Progress Note Normal [facility] US GUIDED THORACENTESISon US GUIDED THORACENTESIS Normal [facility] XR CHEST 1 VIEWon 02-03-2023 XR CHEST 1 VIEW Normal [facility] BASIC METABOLIC PANELon 01-20 Anion gap [Moles/Vol] 3 mmol/L Normal 3-13 [facility] Comment on above: Performed By: #### L AB15, OZD543, LZK154 ####Assistant Grocery: NED PAK ([phone])[facility])[address] [place] [address] Calcium [Mass/Vol] 8.2 mg/dL Low 8.4-10.4 [facility] Comment on above: Performed By: #### Tameka GODDARD, DJN739, FRQ224 ####Assistant Grocery: NED PAK ([phone])[facility])[address] [place] [address] Chloride [Moles/Vol] 108 mmol/L High 98-107 [facility] Comment on above: Performed By: #### Tameka GODDARD, TXC842, NDI333 ####Assistant Grocery: NED PAK ([id number])[facility])[address] [place] [address] [place] CO2 [Moles/Vol] 29 mmol/L Normal 22-30 [facility] Comment on above: Performed By: #### Tameka ABNanci, MOX115, GBT779 ####Assistant Grocery: NED PAK ([phone])[facility])[address] [place] [address] [place] Creatinine [Mass/Vol] 0.47 mg/dL Low 0.52-1.04 [facility] Comment on above: Performed By: #### L AB15, MOP793, VNQ599 ####Assistant Grocery: NED PAK ([id number])[facility])[address] [place] [address] [place] GLOMERULAR FILTRATION RATE ML/MIN/1.73 SQ M.PREDICTED >90.0 Normal >60.0 [facility] Comment on above: Result Comment: Calc ulation based on the Chronic Kidney Disease Epidemiology Collaboration (CKD-EPI) equation refit without adjustment for race Performed By: #### L AB15, DZZ382, QSJ169 ####Assistant Grocery: NED PAK ([phone])[facility])[address] [place] [address] Glucose [Mass/Vol] 126 mg/dL High 70-100 [facility] Comment on above: Performed By: #### L AB15, CPA861, JJK976 ####Assistant Grocery: NED PAK ([id number])[facility])[address] [place] [address] Potassium [Moles/Vol] 3.7 mmol/L Normal 3.5-5.1 [facility] Comment on above: Performed By: #### Tameka HEREDIA15, BCO283, JKY798 ####Assistant Grocery: NED PAK ([phone])[facility])[address] [place] [address] Sodium [Moles/Vol] 140 mmol/L Normal 135-145 [facility] Comment on above: Performed By: #### L AB15, EKH574, VYL469 ####Assistant Grocery: NED PAK ([phone])[facility])[address] [place] [address] Urea nitrogen [Mass/Vol] 19 mg/dL High 7-17 [facility] Comment on above: Performed By: #### L AB15, NOQ503, JDQ674 ####Assistant Grocery: NED PAK ([phone])[facility])[address] [place] [address] [place] CARECOORDon 02-02-2023 CARECOORD Normal [facility] CT CHEST WO IV CONTRASTon CT CHEST WO IV CONTRAST Normal [facility] MAGNESIUMon 02-02-2023 Magnesium [Mass/Vol] 2.6 mg/dL High 1.6-2.3 [facility] Comment on above: Performed By: #### L AB15, OCP367, QTD664 ####Assistant Grocery: NED PAK ([phone])[facility])[address] [place] [address] PHOSPHORUSon 02-02-2023 Phosphate [Mass/Vol] 3.2 mg/dL Normal 2.5-4.5 [facility] Comment on above: Performed By: #### L AB15, SQI239, CNB320 ####Assistant Grocery: NED PAK ([id number])[facility])[address] [place] [address] PROCALCITONIN TESTon 023 PROCALCITONIN 0.19 ng/mL High 0.00-0.09 [facility] Comment on above: Result Comment: ORDE R COMMENTS:PCT <0.50 = Low risk of severe sepsis and/or septic shock.PCT >2.00 = High risk of severe sepsis and/or septic shock. Performed By: #### L [id number] ####Assistant Grocery: NED PAK ([id number])[facility])[address] [place] [address] Progress Noteon 02-02-2023 Progress Note Normal [facility] Progress Note Normal [facility] Progress Note Normal [facility] Progress Note Normal [facility] Progress Note Normal [facility] Progress Note Normal [facility] BASIC METABOLIC PANELon 01-20 Anion gap [Moles/Vol] 3 mmol/L Normal 3-13 [facility] Comment on above: Performed By: #### L AB103, LAB15, GRL244, LAB40 ####Assistant Grocery: NED PAK ([phone])[facility])[address] [place] [address] Calcium [Mass/Vol] 8.1 mg/dL Low 8.4-10.4 [facility] Comment on above: Performed By: #### L AB103, LAB15, HIC753, LAB40 ####Assistant Grocery: NED PAK ([phone])[facility] [place] [address] [place] Chloride [Moles/Vol] 108 mmol/L High 98-107 [facility] Comment on above: Performed By: #### L AB103, LAB15, QER413, LAB40 ####Assistant Grocery: NED PAK ([id number])[facility])[address] [place] [address] CO2 [Moles/Vol] 30 mmol/L Normal 22-30 [facility] Comment on above: Performed By: #### L AB103, LAB15, QVV071, LAB40 ####Assistant Grocery: NED PAK ([phone])[facility])[address] [place] [address] Creatinine [Mass/Vol] 0.51 mg/dL Low 0.52-1.04 [facility] Comment on above: Performed By: #### L AB103, LAB15, RSH222, LAB40 ####Assistant Grocery: NED PAK ([phone])[facility])[address] [place] [address] GLOMERULAR FILTRATION RATE ML/MIN/1.73 SQ M.PREDICTED >90.0 Normal >60.0 [facility] Comment on above: Result Comment: Calc ulation based on the Chronic Kidney Disease Epidemiology Collaboration (CKD-EPI) equation refit without adjustment for race Performed By: #### L AB103, LAB15, MDY116, LAB40 ####Assistant Grocery: NED PAK ([id number])[facility])[address] [place] [address] [place] Glucose [Mass/Vol] 131 mg/dL High 70-100 [facility] Comment on above: Performed By: #### L AB103, LAB15, XNH282, LAB40 ####Assistant Grocery: NED PAK ([id number])[facility])[address] [place] [address] [place] Potassium [Moles/Vol] 3.4 mmol/L Low 3.5-5.1 [facility] Comment on above: Performed By: #### L AB103, LAB15, HUE859, LAB40 ####Assistant Grocery: NED PAK ([id number])[facility])[address] [place] [address] Sodium [Moles/Vol] 140 mmol/L Normal 135-145 [facility] Comment on above: Performed By: #### L AB103, LAB15, FDO876, LAB40 ####Assistant Grocery: NED PAK ([phone])[facility])[address] [place] [address] Urea nitrogen [Mass/Vol] 18 mg/dL High 7-17 [facility] Comment on above: Performed By: #### L AB103, LAB15, SJA537, LAB40 ####Assistant Grocery: NED PAK ([phone])[facility])[address] [place] [address] CARECOORDon 02-01-2023 CARECOORD Normal [facility] CBC (HEMOGRAM)on 02-01-2023 Erythrocyte distribution width (RBC) [Ratio] 16.0 % High 11.5-14.5 [facility] Comment on above: Performed By: #### L AB294 ####Assistant Grocery: NED PAK ([phone])[facility])[address] [place] [address] ERYTHROCYTE MEAN CORPUSCULAR HEMOGLOBIN CONCENTRATION (G/DL) BY AUTOMATED 32.4 % Normal 32.0-36.0 [facility] Comment on above: Performed By: #### L AB294 ####Assistant Grocery: NED PAK ([id number])[facility])[address] [place] [address] Hematocrit (Bld) [Volume fraction] 27.9 % Low 35.0-47.0 [facility] Comment on above: Performed By: #### L AB294 ####Assistant Grocery: NED PAK ([id number])[facility])[address] [place] [address] Hemoglobin (Bld) [Mass/Vol] 9.0 g/dL Low 11.7-16.0 [facility] Comment on above: Performed By: #### L AB294 ####Assistant Grocery: NED PAK ([id number])[facility])[address] [place] [address] MCH (RBC) [Entitic mass] 28.2 pg Normal 26.0-34.0 [facility] Comment on above: Performed By: #### L AB294 ####Assistant Grocery: NED PAK ([id number])[facility])[address] [place] [address] MCV (RBC) [Entitic vol] 86.9 fL Normal 80.0-98.0 [facility] Comment on above: Performed By: #### L AB294 ####Assistant Grocery: NED PAK ([id number])[facility])[address] [place] [address] Platelet mean volume (Bld) [Entitic vol] 8.0 fL Normal 7.4-12.4 [facility] Comment on above: Performed By: #### L AB294 ####Assistant Grocery: NED PAK ([phone])[facility])[address] [place] [address] Platelets (Bld) [#/Vol] 377 10*3/uL Normal 140-440 [facility] Comment on above: Performed By: #### L AB294 ####Assistant Grocery: NED PAK ([id number])[facility])[address] [place] [address] RBC (Bld) [#/Vol] 3.21 10*6/uL Low 3.8-5.20 [facility] Comment on above: Performed By: #### L AB294 ####Assistant Grocery: NED PAK ([phone])[facility])[address] [place] [address] WBC (Bld) [#/Vol] 26.8 10*3/uL High 3.6-10.7 [facility] Comment on above: Performed By: #### L AB294 ####Assistant Grocery: NED PAK ([phone])[facility])[address] [place] [address] MAGNESIUMon 02-01-2023 Magnesium [Mass/Vol] 2.4 mg/dL High 1.6-2.3 [facility] Comment on above: Performed By: #### L AB103, LAB15, WMU696, LAB40 ####Assistant Grocery: NED PAK ([phone])[facility])[address] [place] [address] PHOSPHORUSon 02-01-2023 Phosphate [Mass/Vol] 3.1 mg/dL Normal 2.5-4.5 [facility] Comment on above: Performed By: #### L AB103, LAB15, YJJ884, LAB40 ####Assistant Grocery: NED PAK ([phone])[facility])[address] [place] [address] Progress Noteon 02-01-2023 Progress Note Normal [facility] Progress Note Normal [facility] Progress Note Normal [facility] Progress Note Normal [facility] Progress Note Normal [facility] VANCOMYCIN, RANDOMon 023 VANCOMYCIN 18.0 ug/mL Normal 15.0-20.0 [facility] Comment on above: Order Comment: Pleas e draw random vancomycin level at least >2 hours after the end of the last vancomycin infusion. Thank you! Performed By: #### L AB103, LAB15, EZK495, LAB40 ####Assistant Grocery: NED PAK ([phone])[facility])[address] [place] [address] XR CHEST 1 VIEWon 02-01-2023 XR CHEST 1 VIEW Normal [facility] BASIC METABOLIC PANELon 01-20 Anion gap [Moles/Vol] 5 mmol/L Normal -13 [facility] Comment on above: Performed By: #### L AB15, GBF647, FGT993 ####Assistant Grocery: NED PAK ([phone])[facility])[address] [place] [address] Calcium [Mass/Vol] 8.1 mg/dL Low 8.4-10.4 [facility] Comment on above: Performed By: #### L AB15, IVX462, NEK992 ####Assistant Grocery: NED PAK ([phone])[facility])[address] [place] [address] Chloride [Moles/Vol] 109 mmol/L High 98-107 [facility] Comment on above: Performed By: #### L AB15, LZZ209, HZN880 ####Assistant Grocery: NED PAK ([phone])[facility])[address] [place] [address] CO2 [Moles/Vol] 28 mmol/L Normal 22-30 [facility] Comment on above: Performed By: #### L AB15, DFG954, SML347 ####Assistant Grocery: NED PAK ([id number])[facility])[address] [place] [address] Creatinine [Mass/Vol] 0.47 mg/dL Low 0.52-1.04 [facility] Comment on above: Performed By: #### L AB15, YST368, BAW224 ####Assistant Grocery: NED PAK ([phone])[facility])[address] [place] [address] GLOMERULAR FILTRATION RATE ML/MIN/1.73 SQ M.PREDICTED >90.0 Normal >60.0 [facility] Comment on above: Result Comment: Calc ulation based on the Chronic Kidney Disease Epidemiology Collaboration (CKD-EPI) equation refit without adjustment for race Performed By: #### L AB15, BZC230, YEN813 ####Assistant Grocery: NED PAK ([phone])[facility])[address] [place] [address] [place] Glucose [Mass/Vol] 129 mg/dL High 70-100 [facility] Comment on above: Performed By: #### L AB15, FVK376, YXX559 ####Assistant Grocery: NED PAK ([id number])[facility])[address] [place] [address] Potassium [Moles/Vol] 3.0 mmol/L Low 3.5-5.1 [facility] Comment on above: Performed By: #### L AB15, HBM075, YYK856 ####Assistant Grocery: NED PAK ([phone])[facility])[address] [place] [address] Sodium [Moles/Vol] 142 mmol/L Normal 135-145 [facility] Comment on above: Performed By: #### L AB15, FIB173, JDS509 ####Assistant Grocery: NED PAK ([phone])[facility])[address] [place] [address] Urea nitrogen [Mass/Vol] 19 mg/dL High 7-17 [facility] Comment on above: Performed By: #### L AB15, [id number], [id number] ####Assistant [employer]: NED PAK ([id number])[facility])[address] [place] [address] BLOOD CULTUREon 01-31-2023 Bacteria identified Cx Nom (Bld) Normal [facility] Comment on above: Performed By: #### L [id number] ####Assistant [employer]: NED PAK ([phone])[facility])[address] [place] [address] Performed By: #### L AB462, [id number] ####Assistant [employer]: NED PAK ([id number])[facility])[address] [place] [address] BLOOD CULTURE IDENTIFICATION - AEROBICon 01-31-2023 BLOOD CULTURE IDENTIFICATION - AEROBIC Normal [facility] Comment on above: Performed By: #### L AB462, [id number] ####Assistant [employer]: NED PAK ([phone])[facility])[address] [place] [address] CBC (HEMOGRAM)on 01-31-2023 Erythrocyte distribution width (RBC) [Ratio] 16.0 % High 11.5-14.5 [facility] Comment on above: Performed By: #### L [id number] ####Assistant [employer]: NED PAK ([phone])[facility])[address] [place] [address] ERYTHROCYTE MEAN CORPUSCULAR HEMOGLOBIN CONCENTRATION (G/DL) BY AUTOMATED 32.4 % Normal 32.0-36.0 [facility] Comment on above: Performed By: #### L AB294 ####Assistant [employer]: NED PAK ([phone])[facility])[address] [place] [address] Hematocrit (Bld) [Volume fraction] 29.1 % Low 35.0-47.0 [facility] Comment on above: Performed By: #### L AB294 ####Assistant Grocery: NED PAK ([phone])[facility])[address] [place] [address] Hemoglobin (Bld) [Mass/Vol] 9.4 g/dL Low 11.7-16.0 [facility] Comment on above: Performed By: #### L AB294 ####Assistant Grocery: NED PAK ([id number])[facility])[address] [place] [address] MCH (RBC) [Entitic mass] 27.9 pg Normal 26.0-34.0 [facility] Comment on above: Performed By: #### L AB294 ####Assistant Grocery: NED PAK ([phone])[facility])[address] [place] [address] MCV (RBC) [Entitic vol] 86.2 fL Normal 80.0-98.0 [facility] Comment on above: Performed By: #### L AB294 ####Assistant Grocery: NED PAK ([phone])[facility])[address] [place] [address] Platelet mean volume (Bld) [Entitic vol] 8.6 fL Normal 7.4-12.4 [facility] Comment on above: Performed By: #### L AB294 ####Assistant Grocery: NED PAK ([id number])[facility])[address] [place] [address] Platelets (Bld) [#/Vol] 352 10*3/uL Normal 140-440 [facility] Comment on above: Performed By: #### L AB294 ####Assistant Grocery: NED PAK ([id number])[facility])[address] [place] [address] RBC (Bld) [#/Vol] 3.38 10*6/uL Low 3.8-5.20 [facility] Comment on above: Performed By: #### L AB294 ####Assistant Grocery: NED PAK ([id number])[facility])[address] [place] [address] WBC (Bld) [#/Vol] 23.8 10*3/uL High 3.6-10.7 [facility] Comment on above: Performed By: #### L AB294 ####Assistant Grocery: NED PAK ([phone])[facility])[address] [place] [address] MAGNESIUMon 01-31-2023 Magnesium [Mass/Vol] 2.1 mg/dL Normal 1.6-2.3 [facility] Comment on above: Performed By: #### L AB15, OEB861, YSL025 ####Assistant Grocery: NED PAK ([phone])[facility])[address] [place] [address] PHOSPHORUSon 01-31-2023 Phosphate [Mass/Vol] 2.7 mg/dL Normal 2.5-4.5 [facility] Comment on above: Performed By: #### L AB15, EZK851, [id number] ####Assistant Grocery: NED PAK ([phone])[facility])[address] [place] [address] PROCALCITONIN TESTon 023 PROCALCITONIN 0.29 ng/mL High 0.00-0.09 [facility] Comment on above: Result Comment: SANDRA Baker COMMENTS:PCT <0.50 = Low risk of severe sepsis and/or septic shock.PCT >2.00 = High risk of severe sepsis and/or septic shock. Performed By: #### L [id number] ####Assistant Grocery: NED PAK ([id number])[facility])[address] [place] [address] Progress Noteon 01-31-2023 Progress Note Normal [facility] Progress Note Normal [facility] VANCOMYCIN, RANDOMon 023 VANCOMYCIN 29.0 ug/mL High 15.0-20.0 [facility] Comment on above: Order Comment: Pleas e draw random vancomycin level at least >2 hours after the end of the last vancomycin infusion. Thank you! Performed By: #### L AB40 ####Assistant Grocery: NED PAK ([id number])[facility])[address] [place] [address] AMMONIAon 01-30-2023 Ammonia (P) [Mass/Vol] ug/dL Low 9-30 [facility] Comment on above: Performed By: #### L AB47 ####Assistant Grocery: NED PAK ([phone])[facility])[address] [place] [address] BASIC METABOLIC PANELon 11- Anion gap [Moles/Vol] 6 mmol/L Normal 3-13 [facility] Comment on above: Performed By: #### L AB103, KES471, LAB20, LAB15 ####Assistant Grocery: NED PAK ([phone])[facility])[address] [place] [address] Calcium [Mass/Vol] 8.5 mg/dL Normal 8.4-10.4 [facility] Comment on above: Performed By: #### L AB103, KDH531, LAB20, LAB15 ####Assistant Grocery: NED PAK ([id number])[facility] [place] [address] [place] Chloride [Moles/Vol] 110 mmol/L High 98-107 [facility] Comment on above: Performed By: #### L AB103, GAQ572, LAB20, LAB15 ####Assistant Grocery: NED PAK ([id number])[facility])[address] [place] [address] CO2 [Moles/Vol] 27 mmol/L Normal 22-30 [facility] Comment on above: Performed By: #### L AB103, YLC963, LAB20, LAB15 ####Assistant Grocery: NED PAK ([id number])[facility])[address] [place] [address] Creatinine [Mass/Vol] 0.41 mg/dL Low 0.52-1.04 [facility] Comment on above: Performed By: #### Tameka AB103, [id number], LAB20, LAB15 ####Assistant Grocery: NED PAK ([id number])[facility])[address] [place] [address] GLOMERULAR FILTRATION RATE ML/MIN/1.73 SQ M.PREDICTED >90.0 Normal >60.0 [facility] Comment on above: Result Comment: Calc ulation based on the Chronic Kidney Disease Epidemiology Collaboration (CKD-EPI) equation refit without adjustment for race Performed By: #### L AB103, [id number], LAB20, LAB15 ####Assistant Grocery: NED PAK ([phone])[facility] [place] [address] [place] Glucose [Mass/Vol] 132 mg/dL High 70-100 [facility] Comment on above: Performed By: #### L AB103, THZ594, LAB20, LAB15 ####Assistant Grocery: NED PAK ([phone])[facility])[address] [place] [address] Potassium [Moles/Vol] 3.3 mmol/L Low 3.5-5.1 [facility] Comment on above: Performed By: #### L AB103, JYL124, LAB20, LAB15 ####Assistant Grocery: NED PAK ([id number])[facility])[address] [place] [address] Sodium [Moles/Vol] 143 mmol/L Normal 135-145 [facility] Comment on above: Performed By: #### L AB103, ITN368, LAB20, LAB15 ####Assistant Grocery: NED PAK ([id number])[facility])[address] [place] [address] Urea nitrogen [Mass/Vol] 17 mg/dL Normal 7-17 [facility] Comment on above: Performed By: #### L AB103, ZJO252, LAB20, LAB15 ####Assistant Grocery: NED PAK ([id number])[facility])[address] [place] [address] CBC (HEMOGRAM)on 01-30-2023 Erythrocyte distribution width (RBC) [Ratio] 15.6 % High 11.5-14.5 [facility] Comment on above: Performed By: #### L AB294 ####Assistant Grocery: NED PAK ([id number])[facility])[address] [place] [address] ERYTHROCYTE MEAN CORPUSCULAR HEMOGLOBIN CONCENTRATION (G/DL) BY AUTOMATED 32.8 % Normal 32.0-36.0 [facility] Comment on above: Performed By: #### L AB294 ####Assistant Grocery: NED PAK ([id number])[facility])[address] [place] [address] Hematocrit (Bld) [Volume fraction] 32.5 % Low 35.0-47.0 [facility] Comment on above: Performed By: #### L AB294 ####Assistant Grocery: NED PAK ([id number])[facility])[address] [place] [address] Hemoglobin (Bld) [Mass/Vol] 10.6 g/dL Low 11.7-16.0 [facility] Comment on above: Performed By: #### L AB294 ####Assistant Grocery: NED PAK ([id number])[facility])[address] [place] [address] MCH (RBC) [Entitic mass] 28.4 pg Normal 26.0-34.0 [facility] Comment on above: Performed By: #### L AB294 ####Assistant Grocery: NED PAK ([id number])[facility])[address] [place] [address] MCV (RBC) [Entitic vol] 86.6 fL Normal 80.0-98.0 [facility] Comment on above: Performed By: #### L AB294 ####Assistant Grocery: NED PAK ([id number])[facility])[address] [place] [address] Platelet mean volume (Bld) [Entitic vol] 8.1 fL Normal 7.4-12.4 [facility] Comment on above: Performed By: #### L AB294 ####Assistant Grocery: NED PAK ([id number])[facility])[address] [place] [address] Platelets (Bld) [#/Vol] 352 10*3/uL Normal 140-440 [facility] Comment on above: Performed By: #### L AB294 ####Assistant Grocery: NED PAK ([id number])[facility])[address] [place] [address] RBC (Bld) [#/Vol] 3.75 10*6/uL Low 3.8-5.20 [facility] Comment on above: Performed By: #### L AB294 ####Assistant Grocery: NED PAK ([phone])[facility])[address] [place] [address] WBC (Bld) [#/Vol] 26.5 10*3/uL High 3.6-10.7 [facility] Comment on above: Performed By: #### L AB294 ####Assistant Grocery: NED PAK ([id number])[facility])[address] [place] [address] HEPATIC FUNCTION PANELon Albumin [Mass/Vol] 2.7 g/dL Low 3.5-5.0 [facility] Comment on above: Performed By: #### L AB103, OPG109, LAB20, LAB15 ####Assistant Grocery: NED PAK ([id number])[facility])[address] [place] [address] ALP [Catalytic activity/Vol] 100 U/L Normal 38-126 [facility] Comment on above: Performed By: #### L AB103, ZKK956, LAB20, LAB15 ####Assistant Grocery: NED PAK ([id number])[facility])[address] [place] [address] ALT [Catalytic activity/Vol] 58 U/L High 0-34 [facility] Comment on above: Performed By: #### L AB103, DXY547, LAB20, LAB15 ####Assistant Grocery: NED PAK ([phone])[facility])[address] [place] [address] AST [Catalytic activity/Vol] 76 U/L High 15-46 [facility] Comment on above: Performed By: #### L AB103, XDJ737, LAB20, LAB15 ####Assistant Grocery: NED PAK ([id number])[facility])[address] [place] [address] Bilirubin [Mass/Vol] 0.7 mg/dL Normal 0.2-1.3 [facility] Comment on above: Performed By: #### L AB103, DHF287, LAB20, LAB15 ####Assistant Grocery: NED PAK ([phone])[facility])[address] [place] [address] Bilirubin.indirect [Mass/Vol] 0.0 mg/dL Normal 0.0-0.3 [facility] Comment on above: Performed By: #### L AB103, QND946, LAB20, LAB15 ####Assistant Grocery: NED PAK ([id number])[facility])[address] [place] [address] Protein [Mass/Vol] 6.2 g/dL Low 6.3-8.2 [facility] Comment on above: Performed By: #### L AB103, HSN402, LAB20, LAB15 ####Assistant Grocery: NED PAK ([id number])[facility])[address] [place] [address] MAGNESIUMon 01-30-2023 Magnesium [Mass/Vol] 2.0 mg/dL Normal 1.6-2.3 [facility] Comment on above: Performed By: #### L AB103, XII835, LAB20, LAB15 ####Assistant Grocery: NED PAK ([phone])[facility])[address] [place] [address] PHOSPHORUSon 01-30-2023 Phosphate [Mass/Vol] 3.5 mg/dL Normal 2.5-4.5 [facility] Comment on above: Performed By: #### L AB103, SOD067, LAB20, LAB15 ####Assistant Grocery: NED PAK ([id number])[facility])[address] [place] [address] Progress Noteon 01-30-2023 Progress Note Normal [facility] Progress Note Normal [facility] Progress Note Normal [facility] BASIC METABOLIC PANELon 01-20 Anion gap [Moles/Vol] 9 mmol/L Normal 3-13 [facility] Comment on above: Performed By: #### L AB113, ZXS761, LAB15 ####Assistant Grocery: NED PAK ([id number])[facility])[address] [place] [address] Calcium [Mass/Vol] 8.3 mg/dL Low 8.4-10.4 [facility] Comment on above: Performed By: #### L AB113, GYE158, LAB15 ####Assistant Grocery: NED PAK ([id number])[facility])[address] [place] [address] Chloride [Moles/Vol] 115 mmol/L High 98-107 [facility] Comment on above: Performed By: #### L AB113, PNY389, LAB15 ####Assistant Grocery: NED PAK ([id number])[facility])[address] [place] [address] CO2 [Moles/Vol] 24 mmol/L Normal 22-30 [facility] Comment on above: Performed By: #### Tameka AB113, IPV144, LAB15 ####Assistant Grocery: NED PAK ([id number])[facility])[address] [place] [address] Creatinine [Mass/Vol] 0.56 mg/dL Normal 0.52-1.04 [facility] Comment on above: Performed By: #### L AB113, FOP267, LAB15 ####Assistant Grocery: NED PAK ([id number])[facility])[address] [place] [address] GLOMERULAR FILTRATION RATE ML/MIN/1.73 SQ M.PREDICTED >90.0 Normal >60.0 [facility] Comment on above: Result Comment: Calc ulation based on the Chronic Kidney Disease Epidemiology Collaboration (CKD-EPI) equation refit without adjustment for race Performed By: #### L AB113, [id number], LAB15 ####Assistant Grocery: NED PAK ([id number])[facility])[address] [place] [address] [place] Glucose [Mass/Vol] 129 mg/dL High 70-100 [facility] Comment on above: Performed By: #### L AB113, RRY378, LAB15 ####Assistant Grocery: NED PAK ([id number])[facility])[address] [place] [address] Potassium [Moles/Vol] 3.2 mmol/L Low 3.5-5.1 [facility] Comment on above: Performed By: #### L AB113, JEJ320, LAB15 ####Assistant Grocery: NED PAK ([id number])[facility])[address] [place] [address] Sodium [Moles/Vol] 148 mmol/L High 135-145 [facility] Comment on above: Performed By: #### L AB113, VUP703, LAB15 ####Assistant Grocery: NED PAK ([id number])[facility])[address] [place] [address] Urea nitrogen [Mass/Vol] 13 mg/dL Normal 7-17 [facility] Comment on above: Performed By: #### L AB113, IPY849, LAB15 ####Assistant Grocery: NED PAK ([phone])[facility])[address] [place] [address] BLOOD CULTUREon 01-29-2023 Bacteria identified Cx Nom (Bld) Normal [facility] Comment on above: Performed By: #### L AB462 ####Assistant Grocery: END PAK ([phone])[facility])[address] [place] [address] Bacteria identified Cx Nom (Bld) Normal [facility] Comment on above: Performed By: #### L AB462 ####Assistant Grocery: NED PAK ([id number])[facility])[address] [place] [address] C. DIFFICILE BY PCR WITH REF MALENA TO EIAon 01-29-2023 C. DIFFICILE BY PCR WITH REFLEX TO EIA Normal [facility] Comment on above: Performed By: #### L AB257, [id number] ####Assistant Grocery: NED PAK ([id number])[facility])[address] [place] [address] CARECOORDon 01-29-2023 CARECOORD Normal [facility] CBC (HEMOGRAM)on 01-29-2023 Erythrocyte distribution width (RBC) [Ratio] 15.6 % High 11.5-14.5 [facility] Comment on above: Performed By: #### L AB294, [id number] ####Assistant Grocery: NED PAK ([id number])[facility])[address] [place] [address] ERYTHROCYTE MEAN CORPUSCULAR HEMOGLOBIN CONCENTRATION (G/DL) BY AUTOMATED 32.9 % Normal 32.0-36.0 [facility] Comment on above: Performed By: #### Tameka AB294, DMP494 ####Assistant Grocery: NED PAK ([phone])[facility])[address] [place] [address] Hematocrit (Bld) [Volume fraction] 30.7 % Low 35.0-47.0 [facility] Comment on above: Performed By: #### Tameka AB294, KJG302 ####Assistant Grocery: NED PAK ([id number])[facility])[address] [place] [address] Hemoglobin (Bld) [Mass/Vol] 10.1 g/dL Low 11.7-16.0 [facility] Comment on above: Performed By: #### Tameka AB294, UTV151 ####Assistant Grocery: NED PAK ([phone])[facility])[address] [place] [address] MCH (RBC) [Entitic mass] 28.5 pg Normal 26.0-34.0 [facility] Comment on above: Performed By: #### L AB294, GFR202 ####Assistant Grocery: END PAK ([id number])[facility])[address] [place] [address] MCV (RBC) [Entitic vol] 86.5 fL Normal 80.0-98.0 [facility] Comment on above: Performed By: #### L AB294, [id number] ####Assistant Grocery: NED PAK ([id number])[facility])[address] [place] [address] Platelet mean volume (Bld) [Entitic vol] 8.5 fL Normal 7.4-12.4 [facility] Comment on above: Performed By: #### L AB294, GCS891 ####Assistant Grocery: NED PAK ([id number])[facility])[address] [place] [address] Platelets (Bld) [#/Vol] 298 10*3/uL Normal 140-440 [facility] Comment on above: Performed By: #### L AB294, OHD715 ####Assistant Grocery: NED PAK ([id number])[facility])[address] [place] [address] RBC (Bld) [#/Vol] 3.54 10*6/uL Low 3.8-5.20 [facility] Comment on above: Performed By: #### L AB294, ODU273 ####Assistant Grocery: NED PAK ([id number])[facility])[address] [place] [address] WBC (Bld) [#/Vol] 17.7 10*3/uL High 3.6-10.7 [facility] Comment on above: Performed By: #### L AB294, [id number] ####Assistant Grocery: NED PAK ([id number])[facility])[address] [place] [address] LAB ONLY ? C DIFF EIAon 01-20 LAB ONLY ? C DIFF EIA Normal [facility] Comment on above: Performed By: #### L AB257, [id number] ####Assistant Grocery: NED PAK ([id number])[facility])[address] [place] [address] MAGNESIUMon 01-29-2023 Magnesium [Mass/Vol] 1.9 mg/dL Normal 1.6-2.3 [facility] Comment on above: Performed By: #### L AB113, ZVB750, LAB15 ####Assistant Grocery: NED PAK ([phone])[facility])[address] [place] [address] PHOSPHORUSon 01-29-2023 Phosphate [Mass/Vol] 2.4 mg/dL Low 2.5-4.5 [facility] Comment on above: Performed By: #### L AB113, XLK442, LAB15 ####Assistant Grocery: NED PAK ([id number])[facility])[address] [place] [address] PROCALCITONIN TESTon 023 PROCALCITONIN 0.56 ng/mL High 0.00-0.09 [facility] Comment on above: Result Comment: ORDE R COMMENTS:PCT <0.50 = Low risk of severe sepsis and/or septic shock.PCT >2.00 = High risk of severe sepsis and/or septic shock. Performed By: #### L [id number] ####Assistant Grocery: NED PAK ([id number])[address] Progress Noteon 01-29-2023 Progress Note Normal [facility] Progress Note Normal [facility] Progress Note Normal [facility] Progress Note Normal [facility] Progress Note Normal [facility] RETICULOCYTESon 01-29-2023 Reticulocytes/100 RBC (Bld) 0.61 % Normal [facility] Comment on above: Result Comment: Newb orn < 5%Adults 0.5 - 1.5% Performed By: #### L AB294, IGA070 ####Assistant Grocery: NED PAK ([id number])[facility])[address] [place] [address] XR CHEST 1 VIEWon 01-29-2023 XR CHEST 1 VIEW Normal [facility] BASIC METABOLIC PANELon Anion gap [Moles/Vol] 4 mmol/L Normal 3-13 [facility] Comment on above: Performed By: #### L AB15 ####Assistant Grocery: NED PAK ([phone])[facility])[address] [place] [address] Calcium [Mass/Vol] 8.5 mg/dL Normal 8.4-10.4 [facility] Comment on above: Performed By: #### L AB15 ####Assistant Grocery: NED PAK ([id number])[facility])[address] [place] [address] Chloride [Moles/Vol] 116 mmol/L High 98-107 [facility] Comment on above: Performed By: #### L AB15 ####Assistant Grocery: NED PAK ([id number])[facility] [place] [address] CO2 [Moles/Vol] 27 mmol/L Normal 22-30 [facility] Comment on above: Performed By: #### L AB15 ####Assistant Grocery: NED PAK ([id number])[facility])[address] [place] [address] Creatinine [Mass/Vol] 0.50 mg/dL Low 0.52-1.04 [facility] Comment on above: Performed By: #### L AB15 ####Assistant Grocery: NED PAK ([id number])[facility])[address] [place] [address] GLOMERULAR FILTRATION RATE ML/MIN/1.73 SQ M.PREDICTED >90.0 Normal >60.0 [facility] Comment on above: Result Comment: Calc ulation based on the Chronic Kidney Disease Epidemiology Collaboration (CKD-EPI) equation refit without adjustment for race Performed By: #### L AB15 ####Assistant Grocery: NED PAK ([id number])[facility])[address] [place] [address] [place] Glucose [Mass/Vol] 160 mg/dL High 70-100 [facility] Comment on above: Performed By: #### L AB15 ####Assistant Grocery: NED PAK ([id number])[facility])[address] [place] [address] [place] Potassium [Moles/Vol] 3.5 mmol/L Normal 3.5-5.1 [facility] Comment on above: Performed By: #### L AB15 ####Assistant Grocery: NED PAK ([phone])[facility])[address] [place] [address] Sodium [Moles/Vol] 146 mmol/L High 135-145 [facility] Comment on above: Performed By: #### L AB15 ####Assistant Grocery: NED PAK ([id number])[facility])[address] [place] [address] Urea nitrogen [Mass/Vol] 11 mg/dL Normal 7-17 [facility] Comment on above: Performed By: #### L AB15 ####Assistant Grocery: NED PAK ([phone])[facility])[address] [place] [address] Anion gap [Moles/Vol] 7 mmol/L Normal 3-13 [facility] Comment on above: Performed By: #### L AB113, LAB15, [id number] ####Assistant Grocery: NED PAK ([id number])[facility])[address] [place] [address] Calcium [Mass/Vol] 8.7 mg/dL Normal 8.4-10.4 [facility] Comment on above: Performed By: #### L AB113, LAB15, [id number] ####Assistant Grocery: NED PAK ([id number])[facility])[address] [place] [address] [place] Chloride [Moles/Vol] 119 mmol/L High 98-107 [facility] Comment on above: Performed By: #### L AB113, LAB15, STJ846 ####Assistant Grocery: NED PAK ([id number])[facility])[address] [place] [address] [place] CO2 [Moles/Vol] 26 mmol/L Normal 22-30 [facility] Comment on above: Performed By: #### L AB113, LAB15, [id number] ####Assistant [employer]: NED PAK ([phone])[facility] [place] [address] Creatinine [Mass/Vol] 0.54 mg/dL Normal 0.52-1.04 [facility] Comment on above: Performed By: #### L AB113, LAB15, [id number] ####Assistant [employer]: NED PAK ([phone])[facility] ([facility])[address] [place] [address] GLOMERULAR FILTRATION RATE ML/MIN/1.73 SQ M.PREDICTED >90.0 Normal >60.0 [facility] Comment on above: Result Comment: Calc ulation based on the Chronic Kidney Disease Epidemiology Collaboration (CKD-EPI) equation refit without adjustment for race Performed By: #### L AB113, LAB15, [id number] ####Assistant [employer]: NED PAK ([phone])[facility] ([facility])[address] [place] [address] Glucose [Mass/Vol] 115 mg/dL High 70-100 [facility] Comment on above: Performed By: #### L AB113, LAB15, [id number] ####Assistant [employer]: NED PAK ([phone])[facility] ([facility])[address] [place] [address] Potassium [Moles/Vol] 2.8 mmol/L Low 3.5-5.1 [facility] Comment on above: Performed By: #### L AB113, LAB15, [id number] ####Assistant [employer]: NED PAK ([phone])[facility] ([facility])[address] [place] [address] Sodium [Moles/Vol] 151 mmol/L High 135-145 [facility] Comment on above: Performed By: #### L AB113, LAB15, [id number] ####Assistant [employer]: NED PAK ([phone])[facility])[address] [place] [address] Urea nitrogen [Mass/Vol] 15 mg/dL Normal 7-17 [facility] Comment on above: Performed By: #### L AB113, LAB15, YVS716 ####Assistant Grocery: NED PAK ([id number])[facility] ([facility])[address] [place] [address] BLOOD TYPE AND SCREEN GELon 01-28-2023 ABO GROUPING A Normal [facility] Comment on above: Performed By: #### L AB276 ####Assistant Grocery: NED PAK ([id number])[facility] ([facility])[address] [place] [address] RH TYPE IN BLOOD Positive Normal [facility] Comment on above: Performed By: #### L AB276 ####Assistant Grocery: NED PAK ([phone])[facility] ([facility])[address] [place] [address] CBC (HEMOGRAM)on 01-28-2023 Erythrocyte distribution width (RBC) [Ratio] 15.7 % High 11.5-14.5 [facility] Comment on above: Performed By: #### L AB294 ####Assistant Grocery: NED PAK ([id number])[facility] ([facility])[address] [place] [address] ERYTHROCYTE MEAN CORPUSCULAR HEMOGLOBIN CONCENTRATION (G/DL) BY AUTOMATED 33.3 % Normal 32.0-36.0 [facility] Comment on above: Performed By: #### L AB294 ####Assistant Grocery: NED PAK ([id number])[address] Hematocrit (Bld) [Volume fraction] 26.4 % Low 35.0-47.0 [facility] Comment on above: Performed By: #### L AB294 ####Assistant Grocery: NED PAK ([id number])[facility])[address] [place] [address] Hemoglobin (Bld) [Mass/Vol] 8.8 g/dL Low 11.7-16.0 [facility] Comment on above: Performed By: #### L AB294 ####Assistant Grocery: NED PAK ([id number])[facility])[address] [place] [address] MCH (RBC) [Entitic mass] 28.5 pg Normal 26.0-34.0 [facility] Comment on above: Performed By: #### L AB294 ####Assistant Grocery: NED PAK ([id number])[facility] ([facility])[address] [place] [address] MCV (RBC) [Entitic vol] 85.6 fL Normal 80.0-98.0 [facility] Comment on above: Performed By: #### L AB294 ####Assistant Grocery: NED PAK ([id number])[facility])[address] [place] [address] Platelet mean volume (Bld) [Entitic vol] 9.0 fL Normal 7.4-12.4 [facility] Comment on above: Performed By: #### L AB294 ####Assistant Grocery: NED PAK ([phone])[facility] ([facility])[address] [place] [address] Platelets (Bld) [#/Vol] 269 10*3/uL Normal 140-440 [facility] Comment on above: Performed By: #### L AB294 ####Assistant Grocery: END PAK ([phone])[facility])[address] [place] [address] RBC (Bld) [#/Vol] 3.08 10*6/uL Low 3.8-5.20 [facility] Comment on above: Performed By: #### L AB294 ####Assistant Grocery: NED PAK ([phone])[facility] ([facility])[address] [place] [address] WBC (Bld) [#/Vol] 14.3 10*3/uL High 3.6-10.7 [facility] Comment on above: Performed By: #### L AB294 ####Assistant Grocery: NED PAK ([id number])[facility] ([facility])[address] [place] [address] Consulton 01-28-2023 Consult Re-consult acknowled ged, plans for AKANKSHA today, will officially return and see tomorrow, Normal [facility] HEMOGLOBIN AND HEMATOCRIT, B LOODon 01-28-2023 Hematocrit (Bld) [Volume fraction] 22.4 % Low 35.0-47.0 [facility] Comment on above: Performed By: #### L AB753 ####Assistant Grocery: NED PAK ([phone])[facility])[address] [place] [address] Hemoglobin (Bld) [Mass/Vol] 7.3 g/dL Low 11.7-16.0 [facility] Comment on above: Performed By: #### L AB753 ####Assistant Grocery: NED PAK ([id number])[facility] ([facility])[address] [place] [address] MAGNESIUMon 01-28-2023 Magnesium [Mass/Vol] 1.9 mg/dL Normal 1.6-2.3 [facility] Comment on above: Performed By: #### L AB113, LAB15, PXN289 ####Assistant Grocery: NED PAK ([id number])[facility])[address] [place] [address] PHOSPHORUSon 01-28-2023 Phosphate [Mass/Vol] 2.5 mg/dL Normal 2.5-4.5 [facility] Comment on above: Performed By: #### L AB113, LAB15, RED817 ####Assistant Grocery: NED PAK ([phone])[facility])[address] [place] [address] Progress Noteon 01-28-2023 Progress Note Normal [facility] Progress Note Normal [facility] Progress Note Normal [facility] Progress Note Normal [facility] BASIC METABOLIC PANELon 11-0 Anion gap [Moles/Vol] 8 mmol/L Normal 3-13 [facility] Comment on above: Performed By: #### L AB40, SPG820, LAB15, FFA310 ####Assistant Grocery: NED PAK ([phone])[facility])[address] [place] [address] Calcium [Mass/Vol] 9.1 mg/dL Normal 8.4-10.4 [facility] Comment on above: Performed By: #### L AB40, ADC465, LAB15, ZGX188 ####Assistant Grocery: NED PAK ([phone])[facility])[address] [place] [address] Chloride [Moles/Vol] 121 mmol/L High 98-107 [facility] Comment on above: Performed By: #### L AB40, HVF165, LAB15, KGO941 ####Assistant Grocery: NED PAK ([phone])[address] CO2 [Moles/Vol] 22 mmol/L Normal 22-30 [facility] Comment on above: Performed By: #### L AB40, HCX606, LAB15, XSR495 ####Assistant Grocery: NED PAK ([id number])[facility])[address] [place] [address] Creatinine [Mass/Vol] 0.51 mg/dL Low 0.52-1.04 [facility] Comment on above: Performed By: #### L AB40, AYP722, LAB15, TPN395 ####Assistant Grocery: NED PAK ([id number])[address] GLOMERULAR FILTRATION RATE ML/MIN/1.73 SQ M.PREDICTED >90.0 Normal >60.0 [facility] Comment on above: Result Comment: Calc ulation based on the Chronic Kidney Disease Epidemiology Collaboration (CKD-EPI) equation refit without adjustment for race Performed By: #### L AB40, UAY911, LAB15, ZVR684 ####Assistant Grocery: NED PAK ([id number])[facility])[address] [place] [address] [place] Glucose [Mass/Vol] 156 mg/dL High 70-100 [facility] Comment on above: Performed By: #### L AB40, WFA756, LAB15, SVR804 ####Assistant Grocery: NED PAK ([id number])[facility] ([facility])[address] [place] [address] Potassium [Moles/Vol] 3.5 mmol/L Normal 3.5-5.1 [facility] Comment on above: Performed By: #### L AB40, CPW214, LAB15, OST324 ####Assistant Grocery: NED PAK ([phone])[facility])[address] [place] [address] Sodium [Moles/Vol] 151 mmol/L High 135-145 [facility] Comment on above: Performed By: #### L AB40, WLZ239, LAB15, ZUB784 ####Assistant Grocery: NED PAK ([phone])[facility] ([facility])[address] [place] [address] [place] Urea nitrogen [Mass/Vol] 23 mg/dL High 7-17 [facility] Comment on above: Performed By: #### L AB40, LXX682, LAB15, YHH972 ####Assistant Grocery: NED PAK ([id number])[facility] ([facility])[address] [place] [address] BLOOD CULTUREon 01-27-2023 Bacteria identified Cx Nom (Bld) Normal [facility] Comment on above: Performed By: #### L AB462 ####Assistant Grocery: NED PAK ([id number])[facility] ([facility])[address] [place] [address] Bacteria identified Cx Nom (Bld) Normal [facility] Comment on above: Performed By: #### L SC4791, QMP987 ####Assistant Grocery: NED PAK ([id number])[facility] ([facility])[address] [place] [address] BLOOD CULTURE IDENTIFICATION - AEROBICon 01-27-2023 BLOOD CULTURE IDENTIFICATION - AEROBIC Normal [facility] Comment on above: Performed By: #### L MR0519, KDF353 ####Assistant Grocery: NED PAK ([id number])[facility])[address] [place] [address] CARECOORDon 01-27-2023 CARECOORD Normal [facility] CBC (HEMOGRAM)on 01-27-2023 Erythrocyte distribution width (RBC) [Ratio] 16.0 % High 11.5-14.5 [facility] Comment on above: Performed By: #### L AB294 ####Assistant Grocery: NED PAK ([id number])[facility])[address] [place] [address] ERYTHROCYTE MEAN CORPUSCULAR HEMOGLOBIN CONCENTRATION (G/DL) BY AUTOMATED 32.4 % Normal 32.0-36.0 [facility] Comment on above: Performed By: #### L AB294 ####Assistant Grocery: NED PAK ([phone])[facility])[address] [place] [address] Hematocrit (Bld) [Volume fraction] 32.9 % Low 35.0-47.0 [facility] Comment on above: Performed By: #### L AB294 ####Assistant Grocery: NED PAK ([phone])[facility])[address] [place] [address] Hemoglobin (Bld) [Mass/Vol] 10.6 g/dL Low 11.7-16.0 [facility] Comment on above: Performed By: #### L AB294 ####Assistant Grocery: NED PAK ([id number])[facility])[address] [place] [address] MCH (RBC) [Entitic mass] 27.9 pg Normal 26.0-34.0 [facility] Comment on above: Performed By: #### L AB294 ####Assistant Grocery: NED PAK ([id number])[address] MCV (RBC) [Entitic vol] 86.2 fL Normal 80.0-98.0 [facility] Comment on above: Performed By: #### L AB294 ####Assistant Grocery: NED PAK ([id number])[facility] ([facility])[address] [place] [address] Platelet mean volume (Bld) [Entitic vol] 9.3 fL Normal 7.4-12.4 [facility] Comment on above: Performed By: #### L AB294 ####Assistant Grocery: NED PAK ([id number])[facility] ([facility])[address] [place] [address] Platelets (Bld) [#/Vol] 259 10*3/uL Normal 140-440 [facility] Comment on above: Performed By: #### L AB294 ####Assistant Grocery: NED PAK ([id number])[facility] ([facility])[address] [place] [address] RBC (Bld) [#/Vol] 3.81 10*6/uL Normal 3.8-5.20 [facility] Comment on above: Performed By: #### L AB294 ####Assistant Grocery: NED PAK ([id number])[facility] ([facility])[address] [place] [address] WBC (Bld) [#/Vol] 20.8 10*3/uL High 3.6-10.7 [facility] Comment on above: Performed By: #### L AB294 ####Assistant Grocery: NED PAK ([id number])[facility] ([facility])[address] [place] [address] Consulton 01-27-2023 Consult Normal [facility] MAGNESIUMon 01-27-2023 Magnesium [Mass/Vol] 2.0 mg/dL Normal 1.6-2.3 [facility] Comment on above: Performed By: #### L AB40, RBV756, LAB15, DOJ075 ####Assistant Grocery: NED PAK ([id number])[facility] ([facility])[address] [place] [address] PHOSPHORUSon 01-27-2023 Phosphate [Mass/Vol] 2.4 mg/dL Low 2.5-4.5 [facility] Comment on above: Performed By: #### L AB40, GBT621, LAB15, QPC988 ####Assistant Grocery: NED PAK ([id number])[facility])[address] [place] [address] PROCALCITONIN TESTon 023 PROCALCITONIN 1.61 ng/mL High 0.00-0.09 [facility] Comment on above: Result Comment: ORDE R COMMENTS:PCT <0.50 = Low risk of severe sepsis and/or septic shock.PCT >2.00 = High risk of severe sepsis and/or septic shock. Performed By: #### L [id number] ####Assistant Grocery: NED PAK ([id number])[address] Progress Noteon 01-27-2023 Progress Note Normal [facility] Progress Note Normal [facility] Progress Note Normal [facility] Progress Note Normal [facility] VANCOMYCIN, RANDOMon 023 VANCOMYCIN 13.4 ug/mL Low 15.0-20.0 [facility] Comment on above: Order Comment: Alphonse gonzalez draw random vancomycin level @ 0400 on 01-27-23. Thank you. Performed By: #### L AB40, EHR702, LAB15, TIQ364 ####Assistant Grocery: NED PAK ([id number])[facility])[address] [place] [address] BASIC METABOLIC PANELon Anion gap [Moles/Vol] 6 mmol/L Normal 3-13 [facility] Comment on above: Performed By: #### L AB15, LAB40, NBN633, SAX291 ####Assistant Grocery: NED PAK ([phone])[facility])[address] [place] [address] Calcium [Mass/Vol] 8.9 mg/dL Normal 8.4-10.4 [facility] Comment on above: Performed By: #### L AB15, LAB40, MKE819, XRQ397 ####Assistant Grocery: NED PAK ([id number])[facility] ([facility])[address] [place] [address] Chloride [Moles/Vol] 124 mmol/L High 98-107 [facility] Comment on above: Performed By: #### L AB15, LAB40, SCF640, IXR919 ####Assistant Grocery: NED PAK ([phone])[facility])[address] [place] [address] CO2 [Moles/Vol] 18 mmol/L Low 22-30 [facility] Comment on above: Performed By: #### L AB15, LAB40, BBD733, USJ420 ####Assistant Grocery: NED PAK ([id number])[facility])[address] [place] [address] Creatinine [Mass/Vol] 0.52 mg/dL Normal 0.52-1.04 [facility] Comment on above: Performed By: #### L AB15, LAB40, TCD047, SBN134 ####Assistant Grocery: NED PAK ([id number])[facility])[address] [place] [address] GLOMERULAR FILTRATION RATE ML/MIN/1.73 SQ M.PREDICTED >90.0 Normal >60.0 [facility] Comment on above: Result Comment: Calc ulation based on the Chronic Kidney Disease Epidemiology Collaboration (CKD-EPI) equation refit without adjustment for raceORDER COMMENTS:Slightly Hemolyzed. Interpret K+ with caution. Performed By: #### L AB15, LAB40, TBO920, ALF222 ####Assistant Grocery: NED PAK ([id number])[facility])[address] [place] [address] Glucose [Mass/Vol] 108 mg/dL High 70-100 [facility] Comment on above: Performed By: #### L AB15, LAB40, XVE994, OMK162 ####Assistant Grocery: NED PAK ([id number])[facility])[address] [place] [address] Potassium [Moles/Vol] 3.8 mmol/L Normal 3.5-5.1 [facility] Comment on above: Performed By: #### L AB15, LAB40, ZTW944, DYZ463 ####Assistant Grocery: NED PAK ([id number])[facility])[address] [place] [address] Sodium [Moles/Vol] 148 mmol/L High 135-145 [facility] Comment on above: Performed By: #### L AB15, LAB40, HQV416, GNA340 ####Assistant Grocery: NED PAK ([id number])[facility])[address] [place] [address] Urea nitrogen [Mass/Vol] 23 mg/dL High 7-17 [facility] Comment on above: Performed By: #### L AB15, LAB40, OMU099, TCU616 ####Assistant Grocery: NED PAK ([id number])[facility])[address] [place] [address] CARECOORDon 01-26-2023 CARECOORD Normal [facility] CBC (HEMOGRAM)on 01-26-2023 Erythrocyte distribution width (RBC) [Ratio] 16.1 % High 11.5-14.5 [facility] Comment on above: Performed By: #### L AB294 ####Assistant Grocery: NED PAK ([id number])[facility] ([facility])[address] [place] [address] ERYTHROCYTE MEAN CORPUSCULAR HEMOGLOBIN CONCENTRATION (G/DL) BY AUTOMATED 31.2 % Low 32.0-36.0 [facility] Comment on above: Performed By: #### L AB294 ####Assistant Grocery: NED PAK ([id number])[facility])[address] [place] [address] Hematocrit (Bld) [Volume fraction] 37.0 % Normal 35.0-47.0 [facility] Comment on above: Performed By: #### L AB294 ####Assistant Grocery: NED PAK ([id number])[facility])[address] [place] [address] Hemoglobin (Bld) [Mass/Vol] 11.5 g/dL Low 11.7-16.0 [facility] Comment on above: Performed By: #### L AB294 ####Assistant Grocery: NED PAK ([id number])[facility])[address] [place] [address] MCH (RBC) [Entitic mass] 27.9 pg Normal 26.0-34.0 [facility] Comment on above: Performed By: #### L AB294 ####Assistant Grocery: NED PAK ([id number])[facility])[address] [place] [address] MCV (RBC) [Entitic vol] 89.5 fL Normal 80.0-98.0 [facility] Comment on above: Performed By: #### L AB294 ####Assistant Grocery: NED PAK ([id number])[facility])[address] [place] [address] Platelet mean volume (Bld) [Entitic vol] 8.6 fL Normal 7.4-12.4 [facility] Comment on above: Performed By: #### L AB294 ####Assistant Grocery: NED PAK ([id number])[facility])[address] [place] [address] Platelets (Bld) [#/Vol] 204 10*3/uL Normal 140-440 [facility] Comment on above: Performed By: #### L AB294 ####Assistant Grocery: NED PAK ([id number])[facility])[address] [place] [address] RBC (Bld) [#/Vol] 4.14 10*6/uL Normal 3.8-5.20 [facility] Comment on above: Performed By: #### L AB294 ####Assistant Grocery: NED PAK ([id number])[address] WBC (Bld) [#/Vol] 19.8 10*3/uL High 3.6-10.7 [facility] Comment on above: Performed By: #### L AB294 ####Assistant Grocery: NED PAK ([id number])[address] MAGNESIUMon 01-26-2023 Magnesium [Mass/Vol] 1.9 mg/dL Normal 1.6-2.3 [facility] Comment on above: Result Comment: ORDE R COMMENTS:Slightly Hemolyzed. Interpret Magnesium with caution. Performed By: #### L AB15, LAB40, YQA248, RSI294 ####Assistant Grocery: NED PAK ([id number])[address] Nursing Noteon 01-26-2023 Nursing Note Trauma at bedside pr eparing patient for TLC insertion. Normal [facility] Nursing Note Called daughter and updated her on EEG being removed, C-collar being removed and probable need for central IV access. Answered all questions and concerns at this time. Offered for daughter to call anytime for concerns or updates. Normal [facility] Nursing Note Normal [facility] Nursing Note EEG removed per EMU staff/tech. Normal [facility] Nursing Note RN spoke to and granddaughter of patient at bedside. Questions answered and concerns addressed. Reassurance given. Will con't to monitor for further questions/concerns while family visiting at bedside. Normal [facility] Nursing Note Normal [facility] PHOSPHORUSon 01-26-2023 Phosphate [Mass/Vol] 2.9 mg/dL Normal 2.5-4.5 [facility] Comment on above: Result Comment: ORDE R COMMENTS:Slightly Hemolyzed. Interpret Phosphorus with caution. Performed By: #### L AB15, LAB40, PQJ363, QLY430 ####Assistant Grocery: NED PAK ([id number])[facility] ([facility])[address] [place] [address] Progress Noteon 01-26-2023 Progress Note Normal [facility] VANCOMYCIN, RANDOMon 023 VANCOMYCIN 10.8 ug/mL Low 15.0-20.0 [facility] Comment on above: Order Comment: Pleas e draw random vancomycin level with am labs 01/26/23 at least >2 hours after the end of the last vancomycin infusion. Thank you! Performed By: #### L AB15, LAB40, LOY453, AWV981 ####Assistant Grocery: NED PAK ([id number])[facility])[address] [place] [address] XR CHEST 1 VIEWon 01-26-2023 XR CHEST 1 VIEW Normal [facility] XR CHEST 1 VIEW Normal [facility] BASIC METABOLIC PANELon Anion gap [Moles/Vol] 10 mmol/L Normal 3-13 [facility] Comment on above: Performed By: #### L AB15, WFP999, VZU798 ####Assistant Grocery: NED PAK ([id number])[facility] ([facility])[address] [place] [address] Calcium [Mass/Vol] 8.9 mg/dL Normal 8.4-10.4 [facility] Comment on above: Performed By: #### L AB15, XCE237, GZR317 ####Assistant Grocery: NED PAK ([id number])[facility])[address] [place] [address] Chloride [Moles/Vol] 114 mmol/L High 98-107 [facility] Comment on above: Performed By: #### L AB15, MOM495, ZRQ400 ####Assistant Grocery: NED PAK ([id number])[facility])[address] [place] [address] CO2 [Moles/Vol] 15 mmol/L Low 22-30 [facility] Comment on above: Performed By: #### L AB15, RNK316, BCN186 ####Assistant Grocery: NED PAK ([id number])[facility])[address] [place] [address] Creatinine [Mass/Vol] 0.55 mg/dL Normal 0.52-1.04 [facility] Comment on above: Performed By: #### L AB15, OIH153, GBQ311 ####Assistant Grocery: NED PAK ([id number])[facility])[address] [place] [address] GLOMERULAR FILTRATION RATE ML/MIN/1.73 SQ M.PREDICTED >90.0 Normal >60.0 [facility] Comment on above: Result Comment: Calc ulation based on the Chronic Kidney Disease Epidemiology Collaboration (CKD-EPI) equation refit without adjustment for race Performed By: #### L AB15, UOU724, YXY033 ####Assistant Grocery: NED PAK ([id number])[facility])[address] [place] [address] Glucose [Mass/Vol] 79 mg/dL Normal 70-100 [facility] Comment on above: Performed By: #### L AB15, JKL089, NDX536 ####Assistant Grocery: NED PAK ([id number])[facility])[address] [place] [address] Potassium [Moles/Vol] 3.4 mmol/L Low 3.5-5.1 [facility] Comment on above: Performed By: #### L AB15, FBJ599, XUH939 ####Assistant Grocery: NED PAK ([id number])[facility])[address] [place] [address] [place] Sodium [Moles/Vol] 140 mmol/L Normal 135-145 [facility] Comment on above: Performed By: #### L AB15, SJD012, CQW160 ####Assistant Grocery: NED PAK ([id number])[facility])[address] [place] [address] [place] Urea nitrogen [Mass/Vol] 22 mg/dL High 7-17 [facility] Comment on above: Performed By: #### L AB15, LWC294, DRU569 ####Assistant Grocery: NED PAK ([id number])[facility])[address] [place] [address] BLOOD CULTUREon 01-25-2023 Bacteria identified Cx Nom (Bld) Normal [facility] Comment on above: Performed By: #### L AB462 ####Assistant Grocery: NED PAK ([id number])[facility])[address] [place] [address] Bacteria identified Cx Nom (Bld) Normal [facility] Comment on above: Performed By: #### L AB462 ####Assistant Grocery: NED PAK ([id number])[facility])[address] [place] [address] CARECOORDon 01-25-2023 CARECOORD Normal [facility] CBC (HEMOGRAM)on 01-25-2023 Erythrocyte distribution width (RBC) [Ratio] 15.3 % High 11.5-14.5 [facility] Comment on above: Performed By: #### L AB294 ####Assistant Grocery: NED PAK ([id number])[facility])[address] [place] [address] ERYTHROCYTE MEAN CORPUSCULAR HEMOGLOBIN CONCENTRATION (G/DL) BY AUTOMATED 32.5 % Normal 32.0-36.0 [facility] Comment on above: Performed By: #### L AB294 ####Assistant Grocery: NED PAK ([id number])[facility])[address] [place] [address] Hematocrit (Bld) [Volume fraction] 36.1 % Normal 35.0-47.0 [facility] Comment on above: Performed By: #### L AB294 ####[employer]istant [employer]: NED PAK ([id number])[address] Hemoglobin (Bld) [Mass/Vol] 11.8 g/dL Normal 11.7-16.0 [facility] Comment on above: Performed By: #### L [id number] ####Assistant [employer]: NED PAK ([id number])[facility])[address] [place] [address] MCH (RBC) [Entitic mass] 28.4 pg Normal 26.0-34.0 [facility] Comment on above: Performed By: #### L [id number] ####Assistant [employer]: NED PAK ([id number])[facility])[address] [place] [address] MCV (RBC) [Entitic vol] 87.2 fL Normal 80.0-98.0 [facility] Comment on above: Performed By: #### L [id number] ####Assistant [employer]: NED PAK ([id number])[facility])[address] [place] [address] Platelet mean volume (Bld) [Entitic vol] 8.9 fL Normal 7.4-12.4 [facility] Comment on above: Performed By: #### L [id number] ####Assistant [employer]: NED PAK ([id number])[facility])[address] [place] [address] Platelets (Bld) [#/Vol] 246 10*3/uL Normal 140-440 [facility] Comment on above: Performed By: #### L [id number] ####Assistant [employer]: NED PAK ([id number])[facility])[address] [place] [address] RBC (Bld) [#/Vol] 4.14 10*6/uL Normal 3.8-5.20 [facility] Comment on above: Performed By: #### L [id number] ####Assistant [employer]: NED PAK ([phone])[facility])[address] [place] [address] WBC (Bld) [#/Vol] 20.3 10*3/uL High 3.6-10.7 [facility] Comment on above: Performed By: #### L [id number] ####Assistant Grocery: NED PAK ([id number])[facility] ([facility])[address] [place] [address] MAGNESIUMon 01-25-2023 Magnesium [Mass/Vol] 1.9 mg/dL Normal 1.6-2.3 [facility] Comment on above: Performed By: #### L AB15, [id number], [id number] ####Assistant Grocery: NED PAK ([id number])[facility] ([facility])[address] [place] [address] PHOSPHORUSon 01-25-2023 Phosphate [Mass/Vol] 2.1 mg/dL Low 2.5-4.5 [facility] Comment on above: Performed By: #### L AB15, [id number], [id number] ####Assistant Grocery: NED PAK ([id number])[facility])[address] [place] [address] PNEUMONIA PCR PANELon 2022 PNEUMONIA PCR PANEL Normal [facility] Comment on above: Performed By: #### L [id number] ####Assistant Grocery: NED PAK ([id number])[facility])[address] [place] [address] PROCALCITONIN TESTon 023 PROCALCITONIN 4.67 ng/mL High 0.00-0.09 [facility] Comment on above: Result Comment: ORDE R COMMENTS:PCT <0.50 = Low risk of severe sepsis and/or septic shock.PCT >2.00 = High risk of severe sepsis and/or septic shock. Performed By: #### L [id number] ####Assistant Grocery: NED PAK ([id number])[facility] ([facility])[address] [place] [address] Progress Noteon 01-25-2023 Progress Note Normal [facility] [...] Non 01-25-2023 RESPIRATORY CULTURE AND STAIN Normal [facility] Comment on above: Performed By: #### L AB900 ####Assistant Grocery: NED PAK ([phone])[facility])[address] [place] [address] BASIC METABOLIC PANELon 11-0 Anion gap [Moles/Vol] 10 mmol/L Normal 3-13 [facility] Comment on above: Performed By: #### L AB15 ####Assistant Grocery: NED PAK ([id number])[facility] ([facility])[address] [place] [address] Calcium [Mass/Vol] 9.8 mg/dL Normal 8.4-10.4 [facility] Comment on above: Performed By: #### L AB15 ####Assistant Grocery: NED PAK ([id number])[facility] ([facility])[address] [place] [address] Chloride [Moles/Vol] 111 mmol/L High 98-107 [facility] Comment on above: Performed By: #### L AB15 ####Assistant Grocery: NED PAK ([phone])[facility])[address] [place] [address] CO2 [Moles/Vol] 19 mmol/L Low 22-30 [facility] Comment on above: Performed By: #### L AB15 ####Assistant Grocery: NED PAK ([phone])[facility])[address] [place] [address] Creatinine [Mass/Vol] 0.69 mg/dL Normal 0.52-1.04 [facility] Comment on above: Performed By: #### L AB15 ####Assistant Grocery: NED PAK ([phone])[facility])[address] [place] [address] GLOMERULAR FILTRATION RATE ML/MIN/1.73 SQ M.PREDICTED 89.0 mL/min/1.73m*2 Normal >60.0 [facility] Comment on above: Result Comment: Calc ulation based on the Chronic Kidney Disease Epidemiology Collaboration (CKD-EPI) equation refit without adjustment for raceORDER COMMENTS:Slightly Hemolyzed. Interpret Potassium with caution. Performed By: #### L AB15 ####Assistant Grocery: NED PAK ([id number])[facility])[address] [place] [address] Glucose [Mass/Vol] 90 mg/dL Normal 70-100 [facility] Comment on above: Performed By: #### L AB15 ####Assistant Grocery: NED PAK ([id number])[facility])[address] [place] [address] Potassium [Moles/Vol] 4.0 mmol/L Normal 3.5-5.1 [facility] Comment on above: Performed By: #### L AB15 ####Assistant Grocery: NED PAK ([id number])[facility])[address] [place] [address] Sodium [Moles/Vol] 141 mmol/L Normal 135-145 [facility] Comment on above: Performed By: #### L AB15 ####Assistant Grocery: NED PAK ([id number])[facility])[address] [place] [address] Urea nitrogen [Mass/Vol] 27 mg/dL High 7-17 [facility] Comment on above: Performed By: #### L AB15 ####Assistant Grocery: NED PAK ([id number])[facility])[address] [place] [address] BLOOD GAS, VENOUSon 01-25-20 23 Base excess Calc (BldV) [Moles/Vol] -6.0000 mmol/L Low -3.0-3.0 [facility] Comment on above: Performed By: #### L AB79 ####Assistant Grocery: NED PAK ([phone])[facility])[address] [place] [address] [place] CO2 [Moles/Vol] 19.3 mmol/L Low 24.0-28.0 [facility] Comment on above: Performed By: #### L AB79 ####Assistant Grocery: NED PAK ([id number])[facility])[address] [place] [address] HCO3 (Bld) [Moles/Vol] 18.3 mmol/L Low 23.0-27.0 [facility] Comment on above: Performed By: #### L AB79 ####Assistant Grocery: NED PAK ([id number])[facility])[address] [place] [address] Hemoglobin (Bld) [Mass/Vol] 10.4 g/dL Normal Screen Only [facility] Comment on above: Performed By: #### L AB79 ####Assistant Grocery: NED PAK ([id number])[address] OXYGEN (MM HG) IN VENOUS BLOOD 17.1 mm Hg Low 30.0-50.0 [facility] Comment on above: Performed By: #### L AB79 ####Assistant Grocery: NED PAK ([id number])[facility])[address] [place] [address] OXYGEN SATURATION (%) IN VENOUS BLOOD 17.6 % Low 60.0-80.0 [facility] Comment on above: Performed By: #### L AB79 ####Assistant Grocery: NED PAK ([id number])[facility])[address] [place] [address] PCO2, MIGUEL 31.9 mm Hg Low 40.0-55.0 [facility] Comment on above: Performed By: #### L AB79 ####Assistant Grocery: NED PAK ([id number])[address] PH VENOUS 7.376 Normal 7.330-7.43 0 [facility] Comment on above: Performed By: #### L AB79 ####Assistant Grocery: NED PAK ([id number])[facility])[address] [place] [address] SOURCE OF OXYGEN Room Air Normal [facility] Comment on above: Performed By: #### L AB79 ####Assistant Grocery: NED PAK ([id number])[facility])[address] [place] [address] CBC (HEMOGRAM)on 01-24-2023 Erythrocyte distribution width (RBC) [Ratio] 14.9 % High 11.5-14.5 [facility] Comment on above: Performed By: #### L [id number] ####Assistant Grocery: NED PAK ([id number])[address] ERYTHROCYTE MEAN CORPUSCULAR HEMOGLOBIN CONCENTRATION (G/DL) BY AUTOMATED 31.5 % Low 32.0-36.0 [facility] Comment on above: Performed By: #### L [id number] ####Assistant Grocery: NED PAK ([id number])[facility])[address] [place] [address] Hematocrit (Bld) [Volume fraction] 35.3 % Normal 35.0-47.0 [facility] Comment on above: Performed By: #### L [id number] ####Assistant Grocery: NED PAK ([id number])[facility])[address] [place] [address] Hemoglobin (Bld) [Mass/Vol] 11.1 g/dL Low 11.7-16.0 [facility] Comment on above: Performed By: #### L AB294 ####Assistant Grocery: NED PAK ([id number])[facility])[address] [place] [address] MCH (RBC) [Entitic mass] 28.2 pg Normal 26.0-34.0 [facility] Comment on above: Performed By: #### L [id number] ####Assistant Grocery: NED PAK ([id number])[facility])[address] [place] [address] MCV (RBC) [Entitic vol] 89.6 fL Normal 80.0-98.0 [facility] Comment on above: Performed By: #### L [id number] ####Assistant Grocery: NED PAK ([id number])[facility])[address] [place] [address] Platelet mean volume (Bld) [Entitic vol] 9.1 fL Normal 7.4-12.4 [facility] Comment on above: Performed By: #### L [id number] ####Assistant Grocery: NED PAK ([id number])[facility] ([facility])[address] [place] [address] Platelets (Bld) [#/Vol] 217 10*3/uL Normal 140-440 [facility] Comment on above: Performed By: #### L [id number] ####Assistant Grocery: NED PAK ([id number])[facility])[address] [place] [address] RBC (Bld) [#/Vol] 3.94 10*6/uL Normal 3.8-5.20 [facility] Comment on above: Performed By: #### L AB294 ####Assistant Grocery: NED PAK ([id number])[facility] ([facility])[address] [place] [address] WBC (Bld) [#/Vol] 17.6 10*3/uL High 3.6-10.7 [facility] Comment on above: Performed By: #### L AB294 ####Assistant Grocery: NED PAK ([id number])[facility])[address] [place] [address] Consulton 01-24-2023 Consult Normal [facility] Consult Normal [facility] ECG 12-LEADon 01-24-2023 ECG 12-LEAD IMPRESSION: Sinus rhythm Left ventricular hypertrophy Electronically Signed On 01-24-2023 20:02:49 EST by Hari Hicks Normal [facility] ECG 12-LEAD IMPRESSION: Sinus tachycardia Probable left atrial enlargement Left axis deviation Borderline T wave abnormalities ST elevation, consider inferior injury Electronically Signed On 01-24-2023 15:11:14 EST by Hari Hicks [facility] ECG 12-LEAD IMPRESSION: Sinus tachycardia Left ventricular hypertrophy Electronically Signed On 01-24-2023 15:03:34 EST by Hari Hicks [facility] LACTIC ACID WITH REFLEXon Lactate [Moles/Vol] 2.0 mmol/L Normal 0.7-2.0 [facility] Comment on above: Performed By: #### L [id number] ####Assistant Grocery: NED PAK ([id number])[facility])[address] [place] [address] Lactate [Moles/Vol] 2.7 mmol/L High 0.7-2.0 [facility] Comment on above: Performed By: #### L [id number] ####Assistant Grocery: NED PAK ([id number])[facility])[address] [place] [address] Lactate [Moles/Vol] 2.9 mmol/L High 0.7-2.0 [facility] Comment on above: Performed By: #### L [id number] ####Assistant Grocery: NED PAK ([id number])[facility])[address] [place] [address] Progress Noteon 01-24-2023 Progress Note Normal [facility] Progress Note Normal [facility] Progress Note Normal [facility] XR ABDOMEN 1 VIEWon 01-25-20 23 XR ABDOMEN 1 VIEW Normal [facility] BASIC METABOLIC PANELon Anion gap [Moles/Vol] 13 mmol/L Normal 3-13 [facility] Comment on above: Performed By: #### L AB15, [id number] ####Assistant Grocery: NED PAK ([phone])[facility])[address] [place] [address] Calcium [Mass/Vol] 9.6 mg/dL Normal 8.4-10.4 [facility] Comment on above: Performed By: #### L AB15, [id number] ####Assistant Grocery: NED PAK ([id number])[facility] [place] [address] [place] Chloride [Moles/Vol] 110 mmol/L High 98-107 [facility] Comment on above: Performed By: #### Tameka GODDARD, [id number] ####Assistant Grocery: NED PAK ([id number])[facility] [place] [address] [place] CO2 [Moles/Vol] 19 mmol/L Low 22-30 [facility] Comment on above: Performed By: #### Tameka GODDARD, [id number] ####Assistant Grocery: NED PAK ([id number])[facility] ([facility])[address] [place] [address] Creatinine [Mass/Vol] 0.82 mg/dL Normal 0.52-1.04 [facility] Comment on above: Performed By: #### Tameka GODDARD, [id number] ####Assistant Grocery: NED PAK ([id number])[facility] ([facility])[address] [place] [address] [place] GLOMERULAR FILTRATION RATE ML/MIN/1.73 SQ M.PREDICTED 73.3 mL/min/1.73m*2 Normal >60.0 [facility] Comment on above: Result Comment: Calc ulation based on the Chronic Kidney Disease Epidemiology Collaboration (CKD-EPI) equation refit without adjustment for race Performed By: #### Tameka GODDARD, [id number] ####Assistant Grocery: NED PAK ([id number])[facility] [place] [address] [place] Glucose [Mass/Vol] 112 mg/dL High 70-100 [facility] Comment on above: Performed By: #### Tameka GODDARD, [id number] ####Assistant Grocery: NED PAK ([id number])[facility] [place] [address] [place] Potassium [Moles/Vol] 4.0 mmol/L Normal 3.5-5.1 [facility] Comment on above: Performed By: #### L AB15, [id number] ####Assistant Grocery: NED PAK ([id number])[facility])[address] [place] [address] Sodium [Moles/Vol] 143 mmol/L Normal 135-145 [facility] Comment on above: Performed By: #### L AB15, [id number] ####Assistant Grocery: NED PAK ([id number])[facility])[address] [place] [address] Urea nitrogen [Mass/Vol] 30 mg/dL High 7-17 [facility] Comment on above: Performed By: #### L AB15, [id number] ####Assistant Grocery: NED PAK ([id number])[facility])[address] [place] [address] Anion gap [Moles/Vol] 14 mmol/L High 3-13 [facility] Comment on above: Performed By: #### L AB62, [id number], LAB15, IIW022 ####Assistant Grocery: NED PAK ([id number])[facility])[address] [place] [address] Calcium [Mass/Vol] 10.4 mg/dL Normal 8.4-10.4 [facility] Comment on above: Performed By: #### L AB62, DWD563, LAB15, IOK586 ####Assistant Grocery: NED PAK ([id number])[facility])[address] [place] [address] [place] Chloride [Moles/Vol] 105 mmol/L Normal 98-107 [facility] Comment on above: Performed By: #### L AB62, DSA630, LAB15, JCY132 ####Assistant Grocery: NED PAK ([id number])[facility])[address] [place] [address] [place] CO2 [Moles/Vol] 18 mmol/L Low 22-30 [facility] Comment on above: Performed By: #### L AB62, DKS802, LAB15, CJO996 ####Assistant Grocery: NED PAK ([phone])[facility])[address] [place] [address] Creatinine [Mass/Vol] 1.47 mg/dL High 0.52-1.04 [facility] Comment on above: Performed By: #### L AB62, OUB360, LAB15, QZH838 ####Assistant Grocery: NDE PAK ([id number])[facility])[address] [place] [address] GLOMERULAR FILTRATION RATE ML/MIN/1.73 SQ M.PREDICTED 36.4 mL/min/1.73m*2 Low >60.0 [facility] Comment on above: Result Comment: Calc ulation based on the Chronic Kidney Disease Epidemiology Collaboration (CKD-EPI) equation refit without adjustment for race Performed By: #### L AB62, QCG185, LAB15, FCX743 ####Assistant Grocery: NED PAK ([id number])[facility])[address] [place] [address] Glucose [Mass/Vol] 128 mg/dL High 70-100 [facility] Comment on above: Performed By: #### L AB62, MKO623, LAB15, ZMB911 ####Assistant Grocery: NED PAK ([id number])[facility])[address] [place] [address] Potassium [Moles/Vol] 3.5 mmol/L Normal 3.5-5.1 [facility] Comment on above: Performed By: #### L AB62, XLF514, LAB15, RFT097 ####Assistant Grocery: NED PAK ([id number])[facility])[address] [place] [address] Sodium [Moles/Vol] 137 mmol/L Normal 135-145 [facility] Comment on above: Performed By: #### L AB62, MBT232, LAB15, QZL674 ####Assistant Grocery: NED PAK ([id number])[facility])[address] [place] [address] Urea nitrogen [Mass/Vol] 35 mg/dL High 7-17 [facility] Comment on above: Performed By: #### L AB62, BTA163, LAB15, VHS686 ####Assistant Grocery: NED PAK ([id number])[facility] [place] [address] Anion gap [Moles/Vol] 12 mmol/L Normal 3-13 [facility] Comment on above: Performed By: #### L AB15, [id number] ####Assistant Grocery: END PAK ([id number])[facility])[address] [place] [address] Calcium [Mass/Vol] 10.6 mg/dL High 8.4-10.4 [facility] Comment on above: Performed By: #### Tameka HEREDIA15, [id number] ####Assistant Grocery: NED PAK ([id number])[facility] [place] [address] Chloride [Moles/Vol] 105 mmol/L Normal 98-107 [facility] Comment on above: Performed By: #### L 15, [id number] ####Assistant Grocery: NED PAK ([id number])[facility] [place] [address] CO2 [Moles/Vol] 19 mmol/L Low 22-30 [facility] Comment on above: Performed By: #### Tameka HEREDIA15, [id number] ####Assistant Grocery: NED PAK ([id number])[facility] [place] [address] [place] Creatinine [Mass/Vol] 1.26 mg/dL High 0.52-1.04 [facility] Comment on above: Performed By: #### L AB15, [id number] ####Assistant Grocery: NED PAK ([id number])[facility] [place] [address] GLOMERULAR FILTRATION RATE ML/MIN/1.73 SQ M.PREDICTED 43.8 mL/min/1.73m*2 Low >60.0 [facility] Comment on above: Result Comment: Calc ulation based on the Chronic Kidney Disease Epidemiology Collaboration (CKD-EPI) equation refit without adjustment for race Performed By: #### L 15, [id number] ####Assistant Grocery: NED PAK ([id number])[facility])[address] [place] [address] Glucose [Mass/Vol] 152 mg/dL High 70-100 [facility] Comment on above: Performed By: #### Tameka AB15, [id number] ####Assistant Grocery: NED PAK ([id number])[facility])[address] [place] [address] Potassium [Moles/Vol] 3.5 mmol/L Normal 3.5-5.1 [facility] Comment on above: Performed By: #### Tameka HEREDIA15, [id number] ####Assistant Grocery: NED PAK ([id number])[facility])[address] [place] [address] Sodium [Moles/Vol] 137 mmol/L Normal 135-145 [facility] Comment on above: Performed By: #### Tameka AB15, [id number] ####Assistant Grocery: NED PAK ([id number])[facility])[address] [place] [address] Urea nitrogen [Mass/Vol] 33 mg/dL High 7-17 [facility] Comment on above: Performed By: #### Tameka AB15, [id number] ####Assistant Grocery: NED PAK ([id number])[facility])[address] [place] [address] BLOOD CULTUREon 01-23-2023 Bacteria identified Cx Nom (Bld) Normal [facility] Comment on above: Performed By: #### L [id number], [id number] ####Assistant Grocery: NED PAK ([id number])[facility])[address] [place] [address] Performed By: #### L AB462 ####Assistant Grocery: NED PAK ([id number])[facility])[address] [place] [address] BLOOD CULTURE IDENTIFICATION - AEROBICon 01-23-2023 BLOOD CULTURE IDENTIFICATION - AEROBIC Normal [facility] Comment on above: Performed By: #### L [id number], [id number] ####Assistant Grocery: NED PAK ([id number])[facility])[address] [place] [address] BLOOD GAS ARTERIALon 023 Base excess Calc (Bld) [Moles/Vol] -6.1000 mmol/L Low -3.0-3.0 [facility] Comment on above: Performed By: #### L AB76 ####Assistant Grocery: NED PAK ([id number])[facility])[address] [place] [address] CO2 [Moles/Vol] 18.7 mmol/L Low 23.0-27.0 [facility] Comment on above: Performed By: #### L AB76 ####Assistant Grocery: NED PAK ([id number])[facility])[address] [place] [address] HCO3 (Bld) [Moles/Vol] 17.8 mmol/L Low 21.0-25.0 [facility] Comment on above: Performed By: #### L AB76 ####Assistant Grocery: NED PAK ([id number])[facility])[address] [place] [address] Hemoglobin (Bld) [Mass/Vol] 10.8 g/dL Normal Screen Only [facility] Comment on above: Performed By: #### L AB76 ####Assistant Grocery: NED PAK ([id number])[facility])[address] [place] [address] OXYGEN SATURATION (%) IN ARTERIAL BLOOD 93.2 % Low 95.0-100.0 [facility] Comment on above: Performed By: #### L AB76 ####Assistant Grocery: NED PAK ([id number])[facility])[address] [place] [address] PCO2 ARTERIAL 29.6 mm Hg Low >35.0-<45. 0 [facility] Comment on above: Performed By: #### L AB76 ####Assistant Grocery: NED PAK ([id number])[facility])[address] [place] [address] PH ARTERIAL 7.396 Normal 7.350-7.45 0 [facility] Comment on above: Performed By: #### L AB76 ####Assistant Grocery: NED PAK ([id number])[address] PO2 ARTERIAL 70.8 mm Hg Low 80.0-100.0 [facility] Comment on above: Performed By: #### L AB76 ####Assistant Grocery: NED PAK ([id number])[address] SOURCE OF OXYGEN Room Air Normal [facility] Comment on above: Performed By: #### L AB76 ####Assistant Grocery: NED PAK ([id number])[address] CARECOORDon 01-23-2023 [place] Daughter Marily Call ed and notified of transfer to the ICU. Questions Answered. Normal [facility] CBC (HEMOGRAM)on 01-23-2023 Erythrocyte distribution width (RBC) [Ratio] 14.5 % Normal 11.5-14.5 [facility] Comment on above: Performed By: #### L [id number] ####Assistant Grocery: NED PAK ([id number])[address] ERYTHROCYTE MEAN CORPUSCULAR HEMOGLOBIN CONCENTRATION (G/DL) BY AUTOMATED 31.9 % Low 32.0-36.0 [facility] Comment on above: Performed By: #### L AB294 ####Assistant Grocery: NED [id number])[facility])[address] [place] [address] Hematocrit (Bld) [Volume fraction] 33.4 % Low 35.0-47.0 [facility] Comment on above: Performed By: #### L [id number] ####Assistant Grocery: NED PAK ([id number])[facility])[address] [place] [address] Hemoglobin (Bld) [Mass/Vol] 10.6 g/dL Low 11.7-16.0 [facility] Comment on above: Performed By: #### L AB294 ####Assistant Grocery: NED PAK ([id number])[address] MCH (RBC) [Entitic mass] 28.3 pg Normal 26.0-34.0 [facility] Comment on above: Performed By: #### L AB294 ####Assistant Grocery: NED PAK ([id number])[facility])[address] [place] [address] MCV (RBC) [Entitic vol] 88.8 fL Normal 80.0-98.0 [facility] Comment on above: Performed By: #### L AB294 ####Assistant Grocery: NED PAK ([id number])[facility])[address] [place] [address] Platelet mean volume (Bld) [Entitic vol] 7.2 fL Low 7.4-12.4 [facility] Comment on above: Performed By: #### L [id number] ####Assistant [employer]: NED PAK ([phone])[facility])[address] [place] [address] Platelets (Bld) [#/Vol] 234 10*3/uL Normal 140-440 [facility] Comment on above: Performed By: #### L [id number] ####Assistant [employer]: NED PAK ([id number])[facility] [address] RBC (Bld) [#/Vol] 3.76 10*6/uL Low 3.8-5.20 [facility] Comment on above: Performed By: #### L [id number] ####Assistant [employer]: NED PAK ([id number])[facility])[address] [place] [address] WBC (Bld) [#/Vol] 19.2 10*3/uL High 3.6-10.7 [facility] Comment on above: Performed By: #### L [id number] ####Assistant [employer]: NED PAK ([phone])[facility])[address] [place] [address] CBC WITH AUTO DIFFERENTIALon 01-23-2023 Basophils (Bld) [#/Vol] 0.1 10*3/uL Normal 0.0-0.2 [facility] Comment on above: Performed By: #### L [id number] ####Assistant [employer]: NED PAK ([id number])[facility] ([facility])[address] [place] [address] Basophils/100 WBC (Bld) 0.3 % Normal 0.0-2.0 [facility] Comment on above: Performed By: #### L [id number] ####Assistant [employer]: NED PAK ([phone])[facility])[address] [place] [address] Eosinophils (Bld) [#/Vol] 0.0 10*3/uL Normal 0.0-0.5 [facility] Comment on above: Performed By: #### L [id number] ####Assistant [employer]: NED PAK ([id number])[facility])[address] [place] [address] Eosinophils/100 WBC (Bld) 0.0 % Low 1.0-6.0 [facility] [facility] Comment on above: Performed By: #### L [id number] ####Assistant Grocery: NED PAK ([id number])[facility] [address] Erythrocyte distribution width (RBC) [Ratio] 14.7 % High 11.5-14.5 [facility] Comment on above: Performed By: #### L [id number] ####Assistant Grocery: NED PAK ([phone])[facility])[address] [place] [address] ERYTHROCYTE MEAN CORPUSCULAR HEMOGLOBIN CONCENTRATION (G/DL) BY AUTOMATED 33.1 % Normal 32.0-36.0 [facility] Comment on above: Performed By: #### L [id number] ####Assistant Grocery: NED PAK ([id number])[address] Hematocrit (Bld) [Volume fraction] 31.9 % Low 35.0-47.0 [facility] Comment on above: Performed By: #### L [id number] ####Assistant Grocery: NED PAK ([phone])[facility])[address] [place] [address] Hemoglobin (Bld) [Mass/Vol] 10.6 g/dL Low 11.7-16.0 [facility] Comment on above: Performed By: #### L [id number] ####Assistant Grocery: NED PAK ([id number])[address] Lymphocytes (Bld) [#/Vol] 1.5 10*3/uL Normal 1.0-4.3 [facility] Comment on above: Performed By: #### L [id number] ####Assistant Grocery: NED PAK ([id number])[facility])[address] [place] [address] Lymphocytes/100 WBC (Bld) 7.3 % Low 20.0-40.0 [facility] Comment on above: Performed By: #### L [id number] ####Assistant Grocery: NED PAK ([phone])[facility])[address] [place] [address] MCH (RBC) [Entitic mass] 28.7 pg Normal 26.0-34.0 [facility] Comment on above: Performed By: #### L [id number] ####Assistant Grocery: NED PAK ([id number])[facility])[address] [place] [address] MCV (RBC) [Entitic vol] 86.8 fL Normal 80.0-98.0 [facility] Comment on above: Performed By: #### L [id number] ####Assistant Grocery: NED PAK ([id number])[facility])[address] [place] [address] Monocytes (Bld) [#/Vol] 1.2 10*3/uL High 0.0-0.8 [facility] Comment on above: Performed By: #### L [id number] ####Assistant Grocery: NED PAK ([phone])[facility])[address] [place] [address] Monocytes/100 WBC (Bld) 5.8 % Normal 2.0-10.0 [facility] Comment on above: Performed By: #### L [id number] ####Assistant Grocery: NED PAK ([id number])[facility])[address] [place] [address] Neutrophils (Bld) [#/Vol] 17.5 10*3/uL High 1.8-7.0 [facility] Comment on above: Performed By: #### L [id number] ####Assistant Grocery: NED PAK ([phone])[facility])[address] [place] [address] Neutrophils/100 WBC (Bld) 86.6 % High 40.0-80.0 [facility] Comment on above: Performed By: #### L [id number] ####Assistant Grocery: NED PAK ([phone])[facility])[address] [place] [address] NRBC (PER 100 WBCS) BY AUTOMATED COUNT 0.0 /100 WBCs Normal 0.0-2.0 [facility] Comment on above: Performed By: #### L [id number] ####Assistant Grocery: NED PAK ([id number])[facility])[address] [place] [address] Platelet mean volume (Bld) [Entitic vol] 7.5 fL Normal 7.4-12.4 [facility] Comment on above: Performed By: #### L [id number] ####Assistant Grocery: NED PAK ([id number])[facility])[address] [place] [address] Platelets (Bld) [#/Vol] 258 10*3/uL Normal 140-440 [facility] Comment on above: Performed By: #### L [id number] ####Assistant Grocery: NED PAK ([phone])[facility])[address] [place] [address] RBC (Bld) [#/Vol] 3.68 10*6/uL Low 3.8-5.20 [facility] Comment on above: Performed By: #### L [id number] ####Assistant Grocery: NED PAK ([id number])[facility])[address] [place] [address] WBC (Bld) [#/Vol] 20.2 10*3/uL High 3.6-10.7 [facility] Comment on above: Performed By: #### L [id number] ####Assistant Grocery: NED PAK ([id number])[facility])[address] [place] [address] CKon 01-23-2023 CK [Catalytic activity/Vol] 229 U/L High 30-170 [facility] Comment on above: Performed By: #### L AB62, [id number], LAB15, [id number] ####Assistant Grocery: NED PAK ([id number])[facility])[address] [place] [address] COMPLETE URINALYSISon 2022 BACTERIA (#/HPF) IN URINE Loaded Abnormal Negative [facility] Comment on above: Performed By: #### L [id number] ####Assistant Grocery: NED PAK ([id number])[facility])[address] [place] [address] BILIRUBIN, TOTAL PRESENCE IN URINE Negative Normal Negative [facility] Comment on above: Performed By: #### L [id number] ####Assistant Grocery: NED PAK ([id number])[facility])[address] [place] [address] Clarity (U) Extra Turbid Abnormal Clear [facility] Comment on above: Performed By: #### L [id number] ####Assistant Grocery: NED PAK ([phone])[facility])[address] [place] [address] Color (U) Yellow Normal Lt. Yellow [facility] Comment on above: Performed By: #### L [id number] ####Assistant Grocery: NED PAK ([phone])[facility])[address] [place] [address] GLUCOSE (MG/DL) IN URINE Normal Normal Normal (<70) [facility] Comment on above: Performed By: #### L [id number] ####Assistant Grocery: NED PAK ([id number])[facility])[address] [place] [address] HEMOGLOBIN PRESENCE IN URINE >1.0 Abnormal Negative [facility] Comment on above: Performed By: #### L [id number] ####Assistant Grocery: NED PAK ([id number])[facility])[address] [place] [address] HYALINE CASTS (#/LPF) IN URINE SEDIMENT BY MICROSCOPY 51-100 Abnormal Negative [facility] Comment on above: Performed By: #### L [id number] ####Assistant Grocery: NED PAK ([id number])[facility])[address] [place] [address] Ketones Ql (U) Negative Normal Negative [facility] Comment on above: Performed By: #### L AB347 ####Assistant Grocery: NED PAK ([phone])[facility])[address] [place] [address] LEUKOCYTE ESTERASE PRESENCE IN URINE BY TEST STRIP 500 Danielito/uL Abnormal Negative [facility] Comment on above: Performed By: #### L [id number] ####Assistant Grocery: NED PAK ([phone])[facility])[address] [place] [address] [place] MUCUS (#/LPF) IN URINE SEDIMENT Few Normal Negative [facility] Comment on above: Performed By: #### L [id number] ####Assistant Grocery: NED PAK ([id number])[facility])[address] [place] [address] NITRITE PRESENCE IN URINE Negative Normal Negative [facility] Comment on above: Performed By: #### L [id number] ####Assistant Grocery: NED PAK ([id number])[facility])[address] [place] [address] pH (U) 6.0 [pH] Normal 5.0-8.0 [facility] Comment on above: Performed By: #### L [id number] ####Assistant Grocery: NED PAK ([id number])[facility])[address] [place] [address] Protein (U) [Mass/Vol] 100 mg/dL Abnormal Negative [facility] Comment on above: Performed By: #### L [id number] ####Assistant Grocery: NED PAK ([id number])[facility])[address] [place] [address] [place] RBC (#/HPF) IN URINE SEDIMENT >100 Abnormal 0-2 [facility] Comment on above: Performed By: #### L [id number] ####Assistant Grocery: NED PAK ([id number])[facility])[address] [place] [address] Specific gravity (U) [Rel density] >1.030 High 1.005-1.03 0 [facility] Comment on above: Performed By: #### L [id number] ####Assistant Grocery: NED PAK ([id number])[facility])[address] [place] [address] [place] SQUAMOUS EPITHELIAL CELLS (#/HPF) IN URINE SEDIMENT 0-2 Normal 3-5 [facility] Comment on above: Performed By: #### L [id number] ####Assistant Grocery: NED PAK ([id number])[facility] [place] [address] [place] UROBILINOGEN (MG/DL) IN URINE Normal Normal Normal (0-1) [facility] Comment on above: Performed By: #### L [id number] ####Assistant Grocery: NED PAK ([id number])[facility] [place] [address] [place] WBC (LEUKOCYTE) (#/HPF) IN URINE SEDIMENT >100 Abnormal 0-5 [facility] Comment on above: Performed By: #### L [id number] ####Assistant Grocery: NED PAK ([id number])[facility] [place] [address] [place] WBC (LEUKOCYTE) CLUMPS (#/HPF) IN URINE SEDIMENT Few Abnormal Negative [facility] Comment on above: Performed By: #### L [id number] ####Assistant Grocery: NED PAK ([id number])[facility] [place] [address] [place] AMORPHOUS CRYSTALS (#/HPF) IN URINE Moderate Abnormal Negative [facility] Comment on above: Performed By: #### L [id number] ####Assistant Grocery: NED PAK ([id number])[facility])[address] [place] [address] [place] BACTERIA (#/HPF) IN URINE Moderate Abnormal Negative [facility] Comment on above: Performed By: #### L [id number] ####Assistant Grocery: NED PAK ([id number])[facility])[address] [place] [address] BILIRUBIN, TOTAL PRESENCE IN URINE Negative Normal Negative [facility] Comment on above: Performed By: #### L [id number] ####Assistant Grocery: NED PAK ([id number])[facility])[address] [place] [address] Clarity (U) Cloudy Abnormal Clear [facility] Comment on above: Performed By: #### L [id number] ####Assistant Grocery: NED PAK ([id number])[facility])[address] [place] [address] Color (U) Yellow Normal Lt. Yellow [facility] Comment on above: Performed By: #### L [id number] ####Assistant Grocery: NED PAK ([id number])[facility])[address] [place] [address] GLUCOSE (MG/DL) IN URINE Normal Normal Normal (<70) [facility] Comment on above: Performed By: #### L [id number] ####Assistant Grocery: NED PAK ([id number])[facility])[address] [place] [address] GRANULAR CASTS (#/LPF) IN URINE 6-10 Abnormal Negative [facility] Comment on above: Performed By: #### L [id number] ####Assistant Grocery: NED PAK ([phone])[facility])[address] [place] [address] HEMOGLOBIN PRESENCE IN URINE 0.06 mg/dL Abnormal Negative [facility] Comment on above: Performed By: #### L [id number] ####Assistant Grocery: NED PAK ([id number])[facility])[address] [place] [address] HYALINE CASTS (#/LPF) IN URINE SEDIMENT BY MICROSCOPY 3-5 Abnormal Negative [facility] Comment on above: Performed By: #### L [id number] ####Assistant Grocery: NED PAK ([id number])[facility])[address] [place] [address] Ketones Ql (U) Negative Normal Negative [facility] Comment on above: Performed By: #### L [id number] ####Assistant Grocery: NED PAK ([phone])[facility])[address] [place] [address] LEUKOCYTE ESTERASE PRESENCE IN URINE BY TEST STRIP 250 Danielito/uL Abnormal Negative [facility] Comment on above: Performed By: #### L [id number] ####Assistant Grocery: NED PAK ([id number])[facility])[address] [place] [address] MUCUS (#/LPF) IN URINE SEDIMENT Few Normal Negative [facility] Comment on above: Performed By: #### L [id number] ####Assistant Grocery: NED PAK ([id number])[facility])[address] [place] [address] NITRITE PRESENCE IN URINE Positive Abnormal Negative [facility] Comment on above: Performed By: #### L [id number] ####Assistant Grocery: NED PAK ([id number])[facility])[address] [place] [address] pH (U) 6.0 [pH] Normal 5.0-8.0 [facility] Comment on above: Performed By: #### L [id number] ####Assistant Grocery: NED PAK ([id number])[facility])[address] [place] [address] Protein (U) [Mass/Vol] 70 mg/dL Abnormal Negative [facility] Comment on above: Performed By: #### L [id number] ####Assistant Grocery: NED APK ([id number])[facility])[address] [place] [address] RBC (#/HPF) IN URINE SEDIMENT 3-5 Abnormal 0-2 [facility] Comment on above: Performed By: #### L [id number] ####Assistant Grocery: NED PAK ([id number])[facility])[address] [place] [address] Specific gravity (U) [Rel density] 1.017 Normal 1.005-1.03 0 [facility] Comment on above: Performed By: #### L [id number] ####Assistant Grocery: NED PAK ([id number])[facility])[address] [place] [address] SQUAMOUS EPITHELIAL CELLS (#/HPF) IN URINE SEDIMENT 0-2 Normal 3-5 [facility] Comment on above: Performed By: #### L [id number] ####Assistant Grocery: NED PAK ([id number])[facility])[address] [place] [address] UROBILINOGEN (MG/DL) IN URINE Normal Normal Normal (0-1) [facility] Comment on above: Performed By: #### L [id number] ####Assistant Grocery: NED PAK ([id number])[facility])[address] [place] [address] WBC (LEUKOCYTE) (#/HPF) IN URINE SEDIMENT 26-50 Abnormal 0-5 [facility] Comment on above: Performed By: #### L [id number] ####Assistant Grocery: NED PAK ([id number])[facility])[address] [place] [address] COMPREHENSIVE METABOLIC PANE [place] 01-23-2023 Albumin [Mass/Vol] 3.4 g/dL Low 3.5-5.0 [facility] Comment on above: Performed By: #### Tameka DUNNE, [id number] ####Assistant Grocery: NED PAK ([id number])[facility])[address] [place] [address] [place] ALP [Catalytic activity/Vol] 57 U/L Normal 38-126 [facility] Comment on above: Performed By: #### Tameka AB17, [id number] ####Assistant Grocery: NED PAK ([id number])[facility])[address] [place] [address] [place] ALT [Catalytic activity/Vol] 19 U/L Normal 0-34 [facility] Comment on above: Performed By: #### Tameka AB17, [id number] ####Assistant Grocery: NED PAK ([id number])[facility])[address] [place] [address] Anion gap [Moles/Vol] 16 mmol/L High 3-13 [facility] Comment on above: Performed By: #### Tameka HEREDIA17, [id number] ####Assistant Grocery: NED PAK ([id number])[facility])[address] [place] [address] AST [Catalytic activity/Vol] 40 U/L Normal 15-46 [facility] Comment on above: Performed By: #### Tameka DUNNE, [id number] ####Assistant Grocery: NED PAK ([id number])[facility])[address] [place] [address] Bilirubin [Mass/Vol] 0.7 mg/dL Normal 0.2-1.3 [facility] Comment on above: Performed By: #### Tameka HEREDIA17, [id number] ####Assistant Grocery: NED PAK ([id number])[facility])[address] [place] [address] Calcium [Mass/Vol] 9.8 mg/dL Normal 8.4-10.4 [facility] Comment on above: Performed By: #### Tameka DUNNE, [id number] ####Assistant Grocery: NED PAK ([id number])[facility])[address] [place] [address] [place] Chloride [Moles/Vol] 107 mmol/L Normal 98-107 [facility] Comment on above: Performed By: #### Tameka AB17, [id number] ####Assistant Grocery: NED PAK ([id number])[facility])[address] [place] [address] CO2 [Moles/Vol] 16 mmol/L Low 22-30 [facility] Comment on above: Performed By: #### Tameka AB17, [id number] ####Assistant Grocery: NED [id number])[facility])[address] [place] [address] Creatinine [Mass/Vol] 1.47 mg/dL High 0.52-1.04 [facility] Comment on above: Performed By: #### Tameka HEREDIA17, [id number] ####Assistant Grocery: NED PAK ([id number])[facility])[address] [place] [address] [place] GLOMERULAR FILTRATION RATE ML/MIN/1.73 SQ M.PREDICTED 36.4 mL/min/1.73m*2 Low >60.0 [facility] Comment on above: Result Comment: Calc ulation based on the Chronic Kidney Disease Epidemiology Collaboration (CKD-EPI) equation refit without adjustment for raceORDER COMMENTS:Slightly Hemolyzed. Interpret ALKALINE PHOSPHATASE, AST, and POTASSIUM with caution. Performed By: #### Tameka HEREDIA17, [id number] ####Assistant Grocery: NED PAK ([id number])[facility])[address] [place] [address] Glucose [Mass/Vol] 123 mg/dL High 70-100 [facility] Comment on above: Performed By: #### Tameka DUNNE, [id number] ####Assistant Grocery: NED PAK ([id number])[facility])[address] [place] [address] [place] Potassium [Moles/Vol] 4.3 mmol/L Normal 3.5-5.1 [facility] Comment on above: Performed By: #### Tameka HEREDIA17, [id number] ####Assistant Grocery: NED PAK ([id number])[facility])[address] [place] [address] [place] Protein [Mass/Vol] 6.9 g/dL Normal 6.3-8.2 [facility] Comment on above: Performed By: #### L AB17, [id number] ####Assistant Grocery: NED PAK ([id number])[facility])[address] [place] [address] [place] Sodium [Moles/Vol] 139 mmol/L Normal 135-145 [facility] Comment on above: Performed By: #### L 17, [id number] ####Assistant Grocery: NED PAK ([id number])[facility])[address] [place] [address] Urea nitrogen [Mass/Vol] 34 mg/dL High 7-17 [facility] Comment on above: Performed By: #### L 17, [id number] ####Assistant Grocery: NED PAK ([id number])[facility])[address] [place] [address] CT CERVICAL SPINE WO IV CONT RASTon 01-23-2023 CT CERVICAL SPINE WO IV CONTRAST Normal [facility] CT CHEST ABDOMEN PELVIS W CO NTRASTon 01-23-2023 CT CHEST ABDOMEN PELVIS W CONTRAST Normal [facility] CT HEAD WO IV CONTRASTon CT HEAD WO IV CONTRAST Normal [facility] Consulton 01-23-2023 Consult Normal [facility] Consult Normal [facility] FREE T4on 01-23-2023 Free T4 [Mass/Vol] 1.66 ng/dL Normal 0.78-2.19 [facility] Comment on above: Performed By: #### L AB127, [id number] ####Assistant Grocery: NED PAK ([id number])[address] IDNon 01-23-2023 IDN Normal [facility] LACTIC ACID WITH REFLEXon Lactate [Moles/Vol] 4.1 mmol/L Critically high 0.7-2.0 [facility] Comment on above: Performed By: #### L [id number] ####Assistant Grocery: NED PAK ([id number])[facility])[address] [place] [address] Lactate [Moles/Vol] 8.8 mmol/L Critically high 0.7-2.0 [facility] Comment on above: Performed By: #### L [id number] ####Assistant Grocery: NED [id number])[facility] [place] [address] Lactate [Moles/Vol] 2.2 mmol/L High 0.7-2.0 [facility] Comment on above: Performed By: #### L [id number] ####Assistant Grocery: NED PAK ([id number])[facility])[address] [place] [address] Lactate [Moles/Vol] 1.4 mmol/L Normal 0.7-2.0 [facility] Comment on above: Performed By: #### L [id number] ####Assistant Grocery: NED PAK ([id number])[facility])[address] [place] [address] Nursing Noteon 01-23-2023 Nursing Note Normal [facility] PROCALCITONIN TESTon 023 PROCALCITONIN 7.04 ng/mL High 0.00-0.09 [facility] Comment on above: Result Comment: ORDE R COMMENTS:PCT <0.50 = Low risk of severe sepsis and/or septic shock.PCT >2.00 = High risk of severe sepsis and/or septic shock. Performed By: #### L [id number] ####Assistant Grocery: NED PAK ([id number])[facility])[address] [place] [address] Progress Noteon 01-23-2023 Progress Note PHYSICAL THERAPY [facility] Name/MRN: Zoila Webster ([id number]) Date: 01/23/2023 Pt transferred from to T2 ICU. Pt will require a reassessment. Will re-attempt as able. Buck Boothe, PT Normal [facility] Progress Note Normal [facility] Progress Note Pt temp 103.5, tachy cardic and tachypnea, minimally responsive, Michael Killian notified and transfer orders placed for ICU, pt made ready to transfer and RN called report to t2 Normal [facility] Progress Note Normal [facility] STREP PNEUMONIAE ANTIBODY SE ROTYPESon 01-23-2023 PNEUMO SEROTYPE INTERPRETATION See Note Normal [facility] Comment on above: Result Comment: INTE [...] was developed and its performance characteristicsdetermined by [employer]. It has not been cleared orapproved by the U.S. Food and Drug Administration. This test wasperformed in a CLIA-certified laboratory and is intended forclinical purposes.Performed By: [facility] [address] [place] [address] Director: Ester Ramsey MD, PhDCLIA Number: [id number] Performed By: #### L [id number] ####[facility] ([facility])[address] PNEUMO TYPE 1 IGG 0.31 ug/mL Normal [facility] Comment on above: Performed By: #### L [id number] ####[facility] ([facility])[address] PNEUMO TYPE 12F IGG 0.18 ug/mL Normal [facility] Comment on above: Performed By: #### L [id number] ####[facility] ([facility])[address] PNEUMO TYPE 14 IGG 0.10 ug/mL Normal [facility] Comment on above: Performed By: #### L [id number] ####[facility] ([facility])[address] PNEUMO TYPE 18C IGG <0.05 Normal [facility] Comment on above: Performed By: #### L [id number] ####[facility] ([facility])[address] PNEUMO TYPE 19F IGG 0.19 ug/mL Normal [facility] Comment on above: Performed By: #### L [id number] ####[facility] ([facility])[address] PNEUMO TYPE 23F IGG 0.19 ug/mL Normal [facility] Comment on above: Performed By: #### L [id number] ####[facility] ([facility])[address] PNEUMO TYPE 3 IGG 0.61 ug/mL Normal [facility] Comment on above: Performed By: #### L [id number] ####[facility] ([facility])[address] PNEUMO TYPE 4 IGG 0.13 ug/mL [facility] Comment on above: Performed By: #### L [id number] ####[facility] ([facility])[address] PNEUMO TYPE 5 IGG 0.96 ug/mL Normal [facility] Comment on above: Performed By: #### L [id number] ####[facility] ([facility])[address] PNEUMO TYPE 6B IGG 0.13 ug/mL Normal [facility] Comment on above: Performed By: #### L [id number] ####[facility] ([facility])[address] PNEUMO TYPE 7F IGG 0.36 ug/mL Normal [facility] Comment on above: Performed By: #### L [id number] ####[facility] ([facility])[address] PNEUMO TYPE 8 IGG 0.07 ug/mL [facility] Comment on above: Performed By: #### L [id number] ####[facility] ([facility])[address] PNEUMO TYPE 9N IGG 0.47 ug/mL Normal [facility] [facility] Comment on above: Performed By: #### L AB778 ####[facility] ([facility])[address] PNEUMO TYPE 9V IGG 0.08 ug/mL Normal [facility] Comment on above: Performed By: #### L AB778 ####[facility] ([facility])[address] [place] [address] [place] THYROID STIMULATING HORMONEo n 01-23-2023 THYROID STIMULATING HORMONE 0.503 uIU/mL Normal 0.465-4.68 0 [facility] Comment on above: Performed By: #### L AB62, [id number], LAB15, [id number] ####Assistant Grocery: NED PAK ([phone])[facility])[address] [place] [address] [place] TROPONIN Ion 01-23-2023 Troponin I.cardiac [Mass/Vol] 0.067 ng/mL High <0.034 [facility] Comment on above: Result Comment: ORDE R COMMENTS:Patients with high levels of Biotin oral intake (ie >5 mg/day) may have falsely decreased Troponin levels. Performed By: #### L AB15, [id number] ####Assistant Grocery: NED PAK ([phone])[facility])[address] [place] [address] [place] Troponin I.cardiac [Mass/Vol] 0.054 ng/mL High <0.034 [facility] Comment on above: Result Comment: ORDE R COMMENTS:Patients with high levels of Biotin oral intake (ie >5 mg/day) may have falsely decreased Troponin levels. Performed By: #### L AB747 ####Assistant Grocery: NED PAK ([id number])[facility])[address] [place] [address] [place] Troponin I.cardiac [Mass/Vol] 0.086 ng/mL High <0.034 [facility] Comment on above: Result Comment: ORDE R COMMENTS:Patients with high levels of Biotin oral intake (ie >5 mg/day) may have falsely decreased Troponin levels. Performed By: #### L AB62, [id number], LAB15, [id number] ####Assistant Grocery: NED PAK ([phone])[facility])[address] [place] [address] [place] TROPONIN, WITH SERIAL REFLEX on 01-23-2023 Troponin I.cardiac [Mass/Vol] 0.095 ng/mL High <0.034 [facility] Comment on above: Result Comment: ORDE R COMMENTS:Patients with high levels of Biotin oral intake (ie >5 mg/day) may have falsely decreased Troponin levels. Performed By: #### L AB17, [id number] ####Assistant Grocery: NED PAK ([id number])[facility] ([facility])[address] [place] [address] Performed By: #### L AB127, [id number] ####Assistant Grocery: NED PAK ([id number])[facility])[address] [place] [address] Troponin I.cardiac [Mass/Vol] 0.064 ng/mL High <0.034 [facility] Comment on above: Result Comment: SANDRA R COMMENTS:Patients with high levels of Biotin oral intake (ie >5 mg/day) may have falsely decreased Troponin levels. Performed By: #### L AB15, [id number] ####Assistant Grocery: NED PAK ([id number])[facility])[address] [place] [address] URINE CULTUREon 01-23-2023 Bacteria identified Cx Nom (U) Normal [facility] Comment on above: Performed By: #### L AB239 ####Assistant Grocery: NED PAK ([id number])[facility])[address] [place] [address] XR CHEST 1 VIEWon 01-23-2023 XR CHEST 1 VIEW Normal [facility] CARECOORDon 01-22-2023 CARECOORD Normal [facility] CAR[place]OORD Normal [facility] Progress Noteon 01-22-2023 Progress Note Normal [facility] Progress Note Normal [facility] Progress Note Normal [facility] CARECOORDon 01-21-2023 CARECOORD Normal [facility] IDNon 01-21-2023 IDN Normal [facility] Progress Noteon 01-21-2023 Progress Note Normal [facility] Progress Note Normal [facility] Progress Note Normal [facility] SARS-COV-2 ANTIGENon 023 SARS-COV-2 ANTIGEN Normal [facility] Comment on above: Performed By: #### L [id number] ####Assistant Grocery: NED PAK ([id number])[facility] ([place] [id number] [facility] CARECOORDon 01-20-2023 CARECOORD Normal [facility] IDNon 01-20-2023 IDN Normal [facility] Progress Noteon 01-20-2023 Progress Note Normal [facility] CARECOORDon 01-19-2023 CARECOORD Normal [facility] IDNon 01-19-2023 IDN Normal [facility] Nursing Noteon 01-19-2023 Nursing Note Normal [facility] Progress Noteon 01-19-2023 Progress Note Normal [facility] CARECOORDon 01-18-2023 CARECOORD Normal [facility] IDNon 01-18-2023 IDN Normal [facility] Progress Noteon 01-18-2023 Progress Note Normal [facility] Progress Note [facility] IDNon 01-17-2023 IDN Normal [facility] Nursing Noteon 01-17-2023 Nursing Note 01/17/23 @ 0640 Pt requested pain medication d/t c/o pain to posterior head. Pt was medicated with scheduled 0800 Tylenol dose early after refused 0000 Tylenol dose. Normal [facility] Progress Noteon 01-17-2023 Progress Note [facility] Progress Note Normal [facility] IDNon 01-16-2023 IDN Normal [facility] Nursing Noteon 01-16-2023 Nursing Note Normal [facility] Nursing Note 01/16/23 @ 0110 Pt medicated with Haldol 2 mg IV x 1 for agitation and restlessness. Livestock Handler at bed. Normal [facility] Nursing Note Normal [facility] Progress Noteon 01-16-2023 Progress Note Normal [facility] CARECOORDon 01-15-2023 CARECOORD Normal [facility] EMERGENCY REPORTon EMERGENCY REPORT [facility] EMERGENCY ROOM REPORT NAME ACCOUNT SEX AGE ADMIT DISCHARGE PT MED. RECORD# NUMBER DATE DATE TYPE ELEANOR [id number] F 77 12/08/22 12/08/22 3 ZOILA [id number] ROOM: ER DATE OF : 1945 DICTATING [...] Bipin Wild DO 01/06/23 23:49 JOB #: [id number] Transcribed By: am 01/07/23 11:19 Page 1 of 2 [facility] Emergency Room Report ZOILA WEBSTER : 1945 Electronically signed by: E-SIGN BIPINCHASTITY WILD DO 01/15/23 19:29 Page 2 of 2 [facility]OILA WEBSTER Emergency Room Report Normal [facility] IDNon 01-15-2023 IDN Normal [facility] Progress Noteon 01-15-2023 Progress Note Normal [facility] Progress Note Normal [facility] Progress Note Normal [facility] CARECOORDon 01-14-2023 CARECOORD Normal [facility] Progress Noteon 01-14-2023 Progress Note Normal [facility] Progress Note Normal [facility] Progress Note Normal [facility] Progress Note Normal [facility] CARECOORDon 01-13-2023 CARECOORD Normal [facility] ECG 12-LEADon 01-13-2023 ECG 12-LEAD IMPRESSION: Sinus rhythm Multiple ventricular premature complexes Left ventricular hypertrophy Electronically Signed On 01-13-2023 10:00:00 EDT by Gayathri Velez Normal [facility] Progress Noteon 01-13-2023 Progress Note Normal [facility] Progress Note Normal [facility] Progress Note Normal [facility] Progress Note Normal [facility] Progress Note Normal [facility] CARECOORDon 01-12-2023 CARECOORD Normal [facility] IDNon 01-12-2023 IDN The patient is Moder ately Stable - Low risk of patient condition declining or worsening The patient's goals for the shift include rest The clinical goals for the shift include remain HDS Normal [facility] Nursing Noteon 01-12-2023 Nursing Note Pt only consumed one cup of ice cream, refused all meds this shift , continued to refuse meals despite consistent attempts . Family intermittently at bedside throughout shift, remains with route sales driver at bedside. Will monitor. Normal [facility] Nursing Note Normal [facility] Progress Noteon 01-12-2023 Progress Note Normal [facility] Progress Note Normal [facility] Progress Note Regarding duarte cath eter. Message sent to urology of possibility of doing void trial while still inpatient. They stated that would be acceptable if we complete early tomorrow morning . Recommend active void trial to increase chance of success. Normal [facility] Progress Note Normal [facility] Progress Note Normal [facility] Progress Note Normal [facility] CARECOORDon 01-11-2023 CARECOORD Normal [facility] IDNon 01-11-2023 IDN The patient is Moder ately Stable - Low risk of patient condition declining or worsening The patient's goals for the shift include get some sleep The clinical goals for the shift include decrease/manage agitation Normal [facility] Progress Noteon 01-11-2023 Progress Note Normal [facility] Progress Note Normal [facility] Progress Note Normal [facility] Progress Note Normal [facility] AMMONIAon 01-10-2023 Ammonia (P) [Mass/Vol] ug/dL Low 9-30 [facility] Comment on above: Performed By: #### L AB47 ####Assistant Grocery: NED PAK ([id number])[address] HEPATIC FUNCTION PANELon Albumin [Mass/Vol] 3.6 g/dL Normal 3.5-5.0 [facility] Comment on above: Performed By: #### L AB20 ####Assistant Grocery: NED PAK ([id number])[address] ALP [Catalytic activity/Vol] 135 U/L High 38-126 [facility] Comment on above: Performed By: #### L AB20 ####Assistant Grocery: NED PAK ([id number])[address] ALT [Catalytic activity/Vol] 18 U/L Normal 0-34 [facility] Comment on above: Performed By: #### L AB20 ####Assistant Grocery: NED PAK ([id number])[address] [place] [address] [place] AST [Catalytic activity/Vol] 25 U/L Normal 15-46 [facility] Comment on above: Performed By: #### L AB20 ####Assistant Grocery: NED PAK ([id number])[facility])[address] [place] [address] Bilirubin [Mass/Vol] 0.3 mg/dL Normal 0.2-1.3 [facility] Comment on above: Performed By: #### L AB20 ####Assistant Grocery: NED PAK ([id number])[facility])[address] [place] [address] Bilirubin.indirect [Mass/Vol] 0.0 mg/dL Normal 0.0-0.3 [facility] Comment on above: Performed By: #### L AB20 ####Assistant Grocery: NED PAK ([id number])[facility])[address] [place] [address] Protein [Mass/Vol] 7.1 g/dL Normal 6.3-8.2 [facility] Comment on above: Performed By: #### L AB20 ####Assistant Grocery: NED PAK ([id number])[facility])[address] [place] [address] Progress Noteon 01-10-2023 Progress Note Normal [facility] Progress Noteon 01-09-2023 Progress Note Normal [facility] Progress Note Normal [facility] BILIRUBIN, DIRECTon 01-09-20 23 Bilirubin.indirect [Mass/Vol] 0.0 mg/dL Normal 0.0-0.3 [facility] Comment on above: Performed By: #### L AB52, LAB17 ####Assistant Grocery: NED PAK ([id number])[facility])[address] [place] [address] CARECOORDon 01-08-2023 CARECOORD Normal [facility] CBC (HEMOGRAM)on 01-08-2023 Erythrocyte distribution width (RBC) [Ratio] 14.6 % High 11.5-14.5 [facility] Comment on above: Performed By: #### L AB294 ####Assistant Grocery: NED PAK ([id number])[facility])[address] [place] [address] ERYTHROCYTE MEAN CORPUSCULAR HEMOGLOBIN CONCENTRATION (G/DL) BY AUTOMATED 33.7 % Normal 32.0-36.0 [facility] Comment on above: Performed By: #### L AB294 ####Assistant Grocery: NED PAK ([id number])[facility])[address] [place] [address] Hematocrit (Bld) [Volume fraction] 33.1 % Low 35.0-47.0 [facility] Comment on above: Performed By: #### L AB294 ####Assistant Grocery: NED PAK ([id number])[address] Hemoglobin (Bld) [Mass/Vol] 11.1 g/dL Low 11.7-16.0 [facility] Comment on above: Performed By: #### L AB294 ####Assistant Grocery: NED PAK ([id number])[facility])[address] [place] [address] MCH (RBC) [Entitic mass] 29.8 pg Normal 26.0-34.0 [facility] Comment on above: Performed By: #### L AB294 ####Assistant Grocery: NED PAK ([id number])[facility])[address] [place] [address] MCV (RBC) [Entitic vol] 88.3 fL Normal 80.0-98.0 [facility] Comment on above: Performed By: #### L AB294 ####Assistant Grocery: NED PAK ([id number])[facility])[address] [place] [address] Platelet mean volume (Bld) [Entitic vol] 6.3 fL Low 7.4-12.4 [facility] Comment on above: Performed By: #### L AB294 ####Assistant Grocery: NED PAK ([id number])[facility])[address] [place] [address] PLATELETS (10*3/UL) IN BLOOD AUTOMATED COUNT 462 10*3/uL High 140-440 [facility] Comment on above: Performed By: #### L AB294 ####Assistant Grocery: NED PAK ([id number])[facility] ([facility])[address] [place] [address] RBC (Bld) [#/Vol] 3.74 10*6/uL Low 3.8-5.20 [facility] Comment on above: Performed By: #### L AB294 ####Assistant Grocery: NED PAK ([id number])[facility] ([facility])[address] [place] [address] WBC (Bld) [#/Vol] 7.0 10*3/uL Normal 3.6-10.7 [facility] Comment on above: Performed By: #### L AB294 ####Assistant Grocery: NED PAK ([id number])[facility] ([facility])[address] [place] [address] COMPREHENSIVE METABOLIC PANE Cholo 01-08-2023 Albumin [Mass/Vol] 3.9 g/dL Normal 3.5-5.0 [facility] Comment on above: Performed By: #### [place] LAB17 ####Assistant Grocery: NED PAK ([id number])[facility])[address] [place] [address] ALP [Catalytic activity/Vol] 139 U/L High 38-126 [facility] Comment on above: Performed By: #### [place], LAB17 ####Assistant Grocery: NED PAK ([id number])[facility])[address] [place] [address] ALT [Catalytic activity/Vol] 20 U/L Normal 0-34 [facility] Comment on above: Performed By: #### L AB52, LAB17 ####Assistant Grocery: NED PAK ([id number])[facility] [place] [address] Anion gap [Moles/Vol] 9 mmol/L Normal 3-13 [facility] Comment on above: Performed By: #### L ABSerafin, LAB17 ####Assistant Grocery: NED PAK ([id number])[facility] [place] [address] AST [Catalytic activity/Vol] 31 U/L Normal 15-46 [facility] Comment on above: Performed By: #### [place], LAB17 ####Assistant Grocery: NED PAK ([id number])[facility] ([facility])[address] [place] [address] Bilirubin [Mass/Vol] 0.3 mg/dL Normal 0.2-1.3 [facility] Comment on above: Performed By: #### [place], LAB17 ####Assistant Grocery: NED PAK ([id number])[facility] [place] [address] Calcium [Mass/Vol] 10.8 mg/dL High 8.4-10.4 [facility] Comment on above: Performed By: #### L ABSerafin, LAB17 ####Assistant Grocery: NED PAK ([id number])[facility] [place] [address] [place] Chloride [Moles/Vol] 105 mmol/L Normal 98-107 [facility] Comment on above: Performed By: #### L ABSerafin, LAB17 ####Assistant Grocery: NED PAK ([id number])[facility] [place] [address] [place] CO2 [Moles/Vol] 24 mmol/L Normal 22-30 [facility] Comment on above: Performed By: #### L AB52, LAB17 ####Assistant Grocery: NED PAK ([id number])[facility] ([facility])[address] [place] [address] [place] Creatinine [Mass/Vol] 0.66 mg/dL Normal 0.52-1.04 [facility] Comment on above: Performed By: #### [place], LAB17 ####Assistant Grocery: NED PAK ([id number])[facility])[address] [place] [address] GLOMERULAR FILTRATION RATE ML/MIN/1.73 SQ M.PREDICTED 89.9 mL/min/1.73m*2 Normal >60.0 [facility] Comment on above: Result Comment: Calc ulation based on the Chronic Kidney Disease Epidemiology Collaboration (CKD-EPI) equation refit without adjustment for race Performed By: #### [place], LAB17 ####Assistant Grocery: NED PAK ([id number])[facility])[address] [place] [address] Glucose [Mass/Vol] 122 mg/dL High 70-100 [facility] Comment on above: Performed By: #### [place], LAB17 ####Assistant Grocery: NED PAK ([id number])[facility])[address] [place] [address] Potassium [Moles/Vol] 4.0 mmol/L Normal 3.5-5.1 [facility] Comment on above: Performed By: #### [place], LAB17 ####Assistant Grocery: NED PAK ([id number])[facility])[address] [place] [address] Protein [Mass/Vol] 7.9 g/dL Normal 6.3-8.2 [facility] Comment on above: Performed By: #### [place], LAB17 ####Assistant Grocery: NED PAK ([id number])[facility])[address] [place] [address] [place] Sodium [Moles/Vol] 138 mmol/L Normal 135-145 [facility] Comment on above: Performed By: #### [place], LAB17 ####Assistant Grocery: NED PAK ([id number])[facility])[address] [place] [address] Urea nitrogen [Mass/Vol] 18 mg/dL High 7-17 [facility] Comment on above: Performed By: #### L AB52, LAB17 ####Assistant Grocery: NED PAK ([id number])[facility])[address] [place] [address] Consulton 01-08-2023 Consult Normal [facility] Nursing Noteon 01-08-2023 Nursing Note Patient remove Duarte catheter with legs as verbalized by route sales driver.Upon assessment same was out on the bed with bulb inflated.Patient was counseled and was informed that another catheter have to be placed, which she agreed. Normal [facility] Progress Noteon 01-08-2023 Progress Note Normal [facility] Progress Note Normal [facility] Progress Note Normal [facility] CARECOORDon 01-07-2023 CARECOORD Normal [facility] CBC (HEMOGRAM)on 01-07-2023 Erythrocyte distribution width (RBC) [Ratio] 14.6 % High 11.5-14.5 [facility] Comment on above: Performed By: #### L AB294 ####Assistant Grocery: NED PAK ([id number])[facility])[address] [place] [address] ERYTHROCYTE MEAN CORPUSCULAR HEMOGLOBIN CONCENTRATION (G/DL) BY AUTOMATED 32.9 % Normal 32.0-36.0 [facility] Comment on above: Performed By: #### L AB294 ####Assistant Grocery: NED PAK ([id number])[facility])[address] [place] [address] Hematocrit (Bld) [Volume fraction] 33.3 % Low 35.0-47.0 [facility] Comment on above: Performed By: #### L AB294 ####Assistant Grocery: NED PAK ([id number])[facility])[address] [place] [address] Hemoglobin (Bld) [Mass/Vol] 11.0 g/dL Low 11.7-16.0 [facility] Comment on above: Performed By: #### L AB294 ####Assistant Grocery: NED PAK ([id number])[facility])[address] [place] [address] MCH (RBC) [Entitic mass] 29.4 pg Normal 26.0-34.0 [facility] Comment on above: Performed By: #### L AB294 ####Assistant Grocery: NED PAK ([id number])[facility])[address] [place] [address] MCV (RBC) [Entitic vol] 89.3 fL Normal 80.0-98.0 [facility] Comment on above: Performed By: #### L AB294 ####Assistant Grocery: NED PAK ([id number])[facility])[address] [place] [address] Platelet mean volume (Bld) [Entitic vol] 6.5 fL Low 7.4-12.4 [facility] Comment on above: Performed By: #### L AB294 ####Assistant Grocery: NED PAK ([id number])[facility])[address] [place] [address] PLATELETS (10*3/UL) IN BLOOD AUTOMATED COUNT 471 10*3/uL High 140-440 [facility] Comment on above: Performed By: #### L AB294 ####Assistant Grocery: NED PAK ([id number])[facility])[address] [place] [address] RBC (Bld) [#/Vol] 3.73 10*6/uL Low 3.8-5.20 [facility] Comment on above: Performed By: #### L AB294 ####Assistant Grocery: NED PAK ([id number])[facility])[address] [place] [address] WBC (Bld) [#/Vol] 6.4 10*3/uL Normal 3.6-10.7 [facility] Comment on above: Performed By: #### L AB294 ####Assistant Grocery: NED PAK ([id number])[facility])[address] [place] [address] COMPREHENSIVE METABOLIC PANE [place]olo 01-07-2023 Albumin [Mass/Vol] 3.9 g/dL Normal 3.5-5.0 [facility] Comment on above: Performed By: #### L AB17 ####Assistant Grocery: NED PAK ([id number])[facility])[address] [place] [address] ALP [Catalytic activity/Vol] 138 U/L High 38-126 [facility] Comment on above: Performed By: #### L AB17 ####Assistant Grocery: NED PAK ([id number])[facility])[address] [place] [address] ALT [Catalytic activity/Vol] 19 U/L Normal 0-34 [facility] Comment on above: Performed By: #### L AB17 ####Assistant Grocery: NED PAK ([id number])[facility])[address] [place] [address] Anion gap [Moles/Vol] 8 mmol/L Normal 3-13 [facility] Comment on above: Performed By: #### L AB17 ####Assistant Grocery: NED PAK ([id number])[facility])[address] [place] [address] AST [Catalytic activity/Vol] 50 U/L High 15-46 [facility] Comment on above: Performed By: #### L AB17 ####Assistant Grocery: NED PAK ([id number])[facility])[address] [place] [address] Bilirubin [Mass/Vol] 0.6 mg/dL Normal 0.2-1.3 [facility] Comment on above: Performed By: #### L AB17 ####Assistant Grocery: NED PAK ([id number])[facility] ([facility])[address] [place] [address] [place] Calcium [Mass/Vol] 10.7 mg/dL High 8.4-10.4 [facility] Comment on above: Performed By: #### L AB17 ####Assistant Grocery: NED PAK ([id number])[facility])[address] [place] [address] Chloride [Moles/Vol] 105 mmol/L Normal 98-107 [facility] Comment on above: Performed By: #### L AB17 ####Assistant Grocery: NED PAK ([id number])[facility] [place] [address] CO2 [Moles/Vol] 24 mmol/L Normal 22-30 [facility] Comment on above: Performed By: #### L AB17 ####Assistant Grocery: NED PAK ([id number])[facility])[address] [place] [address] Creatinine [Mass/Vol] 0.55 mg/dL Normal 0.52-1.04 [facility] Comment on above: Performed By: #### L AB17 ####Assistant Grocery: NED PAK ([id number])[facility])[address] [place] [address] GLOMERULAR FILTRATION RATE ML/MIN/1.73 SQ M.PREDICTED >90.0 Normal >60.0 [facility] Comment on above: Result Comment: Calc ulation based on the Chronic Kidney Disease Epidemiology Collaboration (CKD-EPI) equation refit without adjustment for raceORDER COMMENTS:Slightly Hemolyzed. Interpret K+, ALKP, AST with caution. Performed By: #### L AB17 ####Assistant Grocery: NED PAK ([id number])[facility] ([facility])[address] [place] [address] [place] Glucose [Mass/Vol] 116 mg/dL High 70-100 [facility] Comment on above: Performed By: #### L AB17 ####Assistant Grocery: NED PAK ([id number])[facility] ([facility])[address] [place] [address] [place] Potassium [Moles/Vol] 4.3 mmol/L Normal 3.5-5.1 [facility] Comment on above: Performed By: #### L AB17 ####Assistant Grocery: NED PAK ([id number])[facility])[address] [place] [address] Protein [Mass/Vol] 8.0 g/dL Normal 6.3-8.2 [facility] Comment on above: Performed By: #### L AB17 ####Assistant Grocery: NED PAK ([id number])[facility] ([facility])[address] [place] [address] Sodium [Moles/Vol] 137 mmol/L Normal 135-145 [facility] Comment on above: Performed By: #### L AB17 ####Assistant Grocery: NED PAK ([id number])[facility] ([facility])[address] [place] [address] Urea nitrogen [Mass/Vol] 14 mg/dL Normal 7-17 [facility] Comment on above: Performed By: #### L AB17 ####Assistant Grocery: NED PAK ([id number])[facility])[address] [place] [address] Nursing Noteon 01-07-2023 Nursing Note Normal [facility] Nursing Note Normal [facility] Nursing Note Normal [facility] Nursing Note Normal [facility] Nursing Note Patient very uncoope rative during morning assessment and medication administration. Patient spit pill (lyrica) out at this RN. Patient also attempted to grab RN. Attempted to re-orient patient. Normal [facility] Nursing Note Patient took senokot then decides to spit out same.Pt counseled.Care on going... Normal [facility] Progress Noteon 01-07-2023 Progress Note Normal [facility] Progress Note Normal [facility] Progress Note Normal [facility] Progress Note Normal [facility] CARECOORDon 01-06-2023 CARECOORD Normal [facility] Progress Noteon 01-06-2023 Progress Note Normal [facility] Progress Note Normal [facility] Progress Note Normal [facility] Progress Note Normal [facility] US PELVISon 01-06-2023 US PELVIS Normal [facility] CARECOORDon 01-05-2023 CARECOORD Normal [facility] Nursing Noteon 01-05-2023 Nursing Note Pt family expressed concerned over c-collar/ They would like to speak with ortho. Dr. Fallon notified. Normal [facility] Progress Noteon 01-05-2023 Progress Note Normal [facility] Progress Note PHYSICAL THERAPY [facility] Name/MRN: Zoila Webster ([id number]) Date: 01/05/2023 PT treatment attempted at 1315, pt OOR at this time for ultrasound. Will attempt treatment on later date. Hari Wagner SPT Normal [facility] Progress Note Normal [facility] Progress Note Normal [facility] Progress Note [facility] US RETROPERITONEUM LIMITEDon 01-05-2023 US RETROPERITONEUM LIMITED Normal [facility] CARECOORDon 01-04-2023 CARECOORD Normal [facility] CARECOORD Normal [facility] Consulton 01-04-2023 Consult Normal [facility] Consult Normal [facility] ECG 12-LEADon 01-04-2023 ECG 12-LEAD IMPRESSION: Sinus rhythm Left ventricular hypertrophy Anterior Q waves, possibly due to LVH Borderline T abnormalities, inferior leads Electronically Signed On 01-04-2023 10:15:41 EDT by Vini Rodriguez [facility] IDNon 01-04-2023 IDN Normal [facility] IDN Normal [facility] Nursing Noteon 01-04-2023 Nursing Note Normal [facility] Nursing Note Patient was bladder scanned for 450 ml. Patient assisted to commode by route sales driver and myself. Patient voided a small amount. Post void residual was 264 Kathryn with trauma notified Normal [facility] Nursing Note Patients cam e to desk asking about options other than c collar. I explained that trauma will be reaching out to ortho to see if there are alternatives to c collar. Message sent to Kathryn with trauma Normal [facility] Progress Noteon 01-04-2023 Progress Note Normal [facility] Progress Note Normal [facility] Progress Note Normal [facility] Progress Note Normal [facility] URINE CULTUREon 01-04-2023 Bacteria identified Cx Nom (U) Normal [facility] Comment on above: Performed By: #### L [id number] ####Assistant Grocery: NED PAK ([id number])[facility])[address] [place] [address] [place] IDNon 01-03-2023 IDN Normal [facility] Nursing Noteon 01-03-2023 Nursing Note Pt c/o chest pain. B P 159/92, HR 107. Provider notified. Prn labetalol given and EKG ordered. Normal [facility] Nursing Note Pt Bladder Scan 750. Pt was able to void 200ml, still retaining 575mL. Provider messaged, one time straight cath ordered. Pt tolerated well, 550 output. Normal [facility] Progress Noteon 01-03-2023 Progress Note Normal [facility] CBC (HEMOGRAM)on 01-02-2023 Erythrocyte distribution width (RBC) [Ratio] 15.7 % High 11.5-14.5 [facility] Comment on above: Performed By: #### L [id number] ####Assistant Grocery: NED PAK ([id number])[address] ERYTHROCYTE MEAN CORPUSCULAR HEMOGLOBIN CONCENTRATION (G/DL) BY AUTOMATED 33.1 % Normal 32.0-36.0 [facility] Comment on above: Performed By: #### L [id number] ####Assistant Grocery: NED PAK ([id number])[address] Hematocrit (Bld) [Volume fraction] 33.0 % Low 35.0-47.0 [facility] Comment on above: Performed By: #### L [id number] ####Assistant Grocery: NED PAK ([id number])[address] Hemoglobin (Bld) [Mass/Vol] 10.9 g/dL Low 11.7-16.0 [facility] Comment on above: Performed By: #### L [id number] ####Assistant Grocery: NED PAK ([id number])[facility])[address] [place] [address] MCH (RBC) [Entitic mass] 29.8 pg Normal 26.0-34.0 [facility] Comment on above: Performed By: #### L [id number] ####Assistant Grocery: NED PAK ([id number])[facility])[address] [place] [address] MCV (RBC) [Entitic vol] 90.1 fL Normal 80.0-98.0 [facility] Comment on above: Performed By: #### L [id number] ####Assistant Grocery: NED PAK ([id number])[facility])[address] [place] [address] Platelet mean volume (Bld) [Entitic vol] 7.0 fL Low 7.4-12.4 [facility] Comment on above: Performed By: #### L [id number] ####Assistant Grocery: NED PAK ([id number])[facility])[address] [place] [address] PLATELETS (10*3/UL) IN BLOOD AUTOMATED COUNT 533 10*3/uL High 140-440 [facility] Comment on above: Performed By: #### L [id number] ####Assistant Grocery: NED PAK ([id number])[facility])[address] [place] [address] RBC (Bld) [#/Vol] 3.66 10*6/uL Low 3.8-5.20 [facility] Comment on above: Performed By: #### L [id number] ####Assistant Grocery: NED PAK ([id number])[facility])[address] [place] [address] WBC (Bld) [#/Vol] 9.3 10*3/uL Normal 3.6-10.7 [facility] Comment on above: Performed By: #### L [id number] ####Assistant Grocery: NED PAK ([id number])[address] LACOSAMIDEon 01-02-2023 LACOSAMIDE 8.5 ug/mL Normal 1.0-10.0 [facility] Comment on above: Result Comment: INTE [...] was developed and its performance characteristicsdetermined by [facility]. It has not been cleared orapproved by the [place] Food and Drug Administration. This test wasperformed in a CLIA-certified laboratory and is intended forclinical purposes.Performed By: [facility] [place], [place] [address]Wnyvhktzus Director: Ester Ramsey MD, PhDCLIA Number: [id number] Performed By: #### L [id number] ####[facility] ([facility])[address] [place] [phone] [place] Progress Noteon 01-02-2023 Progress Note Normal [facility] CARECOORDon 01-01-2023 CARECOORD Normal [facility] IDNon 01-01-2023 IDN Normal [facility] IDN Normal [facility] Progress Noteon 01-01-2023 Progress Note Normal [facility] Progress Note Normal [facility] Progress Note Normal [facility] Progress Note Normal [facility] BASIC METABOLIC PANELon 12-20 Anion gap [Moles/Vol] 8 mmol/L Normal 06-01 [facility] Comment on above: Performed By: #### L AB15 ####Assistant Grocery: NED PAK ([id number])[facility] ([facility])[address] [place] [address] Calcium [Mass/Vol] 10.3 mg/dL Normal 8.4-10.4 [facility] Comment on above: Performed By: #### L AB15 ####Assistant Grocery: NED PAK ([id number])[facility] ([facility])[address] [place] [address] [place] Chloride [Moles/Vol] 108 mmol/L High 98-107 [facility] Comment on above: Performed By: #### L AB15 ####Assistant Grocery: NED PAK ([id number])[facility] ([facility])[address] [place] [address] CO2 [Moles/Vol] 22 mmol/L Normal 22-30 [facility] Comment on above: Performed By: #### L AB15 ####Assistant Grocery: NED PAK ([id number])[facility] [place] [address] Creatinine [Mass/Vol] 0.65 mg/dL Normal 0.52-1.04 [facility] Comment on above: Performed By: #### L AB15 ####Assistant Grocery: NED PAK ([id number])[facility] ([facility])[address] [place] [address] GLOMERULAR FILTRATION RATE ML/MIN/1.73 SQ M.PREDICTED >90.0 Normal >60.0 [facility] Comment on above: Result Comment: Calc ulation based on the Chronic Kidney Disease Epidemiology Collaboration (CKD-EPI) equation refit without adjustment for race Performed By: #### L AB15 ####Assistant Grocery: NED PAK ([id number])[facility] ([facility])[address] [place] [address] [place] Glucose [Mass/Vol] 126 mg/dL High 70-100 [facility] Comment on above: Performed By: #### L AB15 ####Assistant Grocery: NED PAK ([id number])[facility] ([facility])[address] [place] [address] Potassium [Moles/Vol] 4.3 mmol/L Normal 3.5-5.1 [facility] Comment on above: Performed By: #### L AB15 ####Assistant Grocery: NED PAK ([id number])[facility])[address] [place] [address] Sodium [Moles/Vol] 138 mmol/L Normal 135-145 [facility] Comment on above: Performed By: #### L AB15 ####Assistant Grocery: NED PAK ([id number])[facility])[address] [place] [address] Urea nitrogen [Mass/Vol] 18 mg/dL High 7-17 [facility] Comment on above: Performed By: #### L AB15 ####Assistant Grocery: NED PAK ([id number])[facility] ([facility])[address] [place] [address] CARECOORDon 12-31-2022 CARECOORD Normal [facility] CBC (HEMOGRAM)on 12-31-2022 Erythrocyte distribution width (RBC) [Ratio] 16.0 % High 11.5-14.5 [facility] Comment on above: Performed By: #### L [id number] ####Assistant Grocery: NED PAK ([id number])[facility])[address] [place] [address] ERYTHROCYTE MEAN CORPUSCULAR HEMOGLOBIN CONCENTRATION (G/DL) BY AUTOMATED 33.1 % Normal 32.0-36.0 [facility] Comment on above: Performed By: #### L [id number] ####Assistant Grocery: NED PAK ([id number])[facility])[address] [place] [address] Hematocrit (Bld) [Volume fraction] 29.3 % Low 35.0-47.0 [facility] Comment on above: Performed By: #### L [id number] ####Assistant Grocery: NED [id number])[facility])[address] [place] [address] Hemoglobin (Bld) [Mass/Vol] 9.7 g/dL Low 11.7-16.0 [facility] Comment on above: Performed By: #### L [id number] ####Assistant Grocery: NED PAK ([id number])[facility])[address] [place] [address] MCH (RBC) [Entitic mass] 29.9 pg Normal 26.0-34.0 [facility] Comment on above: Performed By: #### L [id number] ####Assistant Grocery: NED PAK ([id number])[address] MCV (RBC) [Entitic vol] 90.3 fL Normal 80.0-98.0 [facility] Comment on above: Performed By: #### L [id number] ####Assistant Grocery: NED PAK ([id number])[facility])[address] [place] [address] Platelet mean volume (Bld) [Entitic vol] 6.7 fL Low 7.4-12.4 [facility] Comment on above: Performed By: #### L [id number] ####Assistant Grocery: NED PAK ([id number])[facility])[address] [place] [address] PLATELETS (10*3/UL) IN BLOOD AUTOMATED COUNT 693 10*3/uL High 140-440 [facility] Comment on above: Performed By: #### L [id number] ####Assistant Grocery: NED PAK ([id number])[facility])[address] [place] [address] RBC (Bld) [#/Vol] 3.24 10*6/uL Low 3.8-5.20 [facility] Comment on above: Performed By: #### L [id number] ####Assistant Grocery: NED PAK ([id number])[facility])[address] [place] [address] WBC (Bld) [#/Vol] 15.6 10*3/uL High 3.6-10.7 [facility] Comment on above: Performed By: #### L [id number] ####Assistant Grocery: NED PAK ([id number])[facility] ([facility])[address] [place] [address] IDNon 12-31-2022 IDN Normal [facility] Progress Noteon 12-31-2022 Progress Note Normal [facility] Progress Note Normal [facility] Progress Note Normal [facility] Progress Note Normal [facility] ECG 12-LEADon 12-30-2022 ECG 12-LEAD IMPRESSION: Sinus rhythm Multiple ventricular premature complexes LVH with secondary repolarization abnormality Electronically Signed On 12-30-2022 13:50:09 EDT by Terra Cat Normal [facility] IDNon 12-30-2022 IDN Normal [facility] Nursing Noteon 12-30-2022 Nursing Note David came to see p atient, fitted with smaller C collar for patient comfort. Pt is now eating and seems to be ok with new collar Normal [facility] Progress Noteon 12-30-2022 Progress Note Normal [facility] Progress Note Normal [facility] Progress [facility] Normal [facility] Progress Note Normal [facility] CARECOORDon 12-29-2022 CARECOORD Normal [facility] CBC (HEMOGRAM)on 12-29-2022 Erythrocyte distribution width (RBC) [Ratio] 15.7 % High 11.5-14.5 [facility] Comment on above: Performed By: #### L [id number] ####Assistant Grocery: NED PAK ([id number])[facility] ([facility])[address] [place] [address] ERYTHROCYTE MEAN CORPUSCULAR HEMOGLOBIN CONCENTRATION (G/DL) BY AUTOMATED 33.3 % Normal 32.0-36.0 [facility] Comment on above: Performed By: #### L [id number] ####Assistant Grocery: NED PAK ([id number])[facility])[address] [place] [address] Hematocrit (Bld) [Volume fraction] 27.7 % Low 35.0-47.0 [facility] Comment on above: Performed By: #### L [id number] ####Assistant Grocery: NED PAK ([id number])[facility])[address] [place] [address] Hemoglobin (Bld) [Mass/Vol] 9.2 g/dL Low 11.7-16.0 [facility] Comment on above: Performed By: #### L [id number] ####Assistant Grocery: NED PAK ([id number])[facility])[address] [place] [address] MCH (RBC) [Entitic mass] 30.1 pg Normal 26.0-34.0 [facility] Comment on above: Performed By: #### L [id number] ####Assistant Grocery: NED PAK ([id number])[facility] ([facility])[address] [place] [address] MCV (RBC) [Entitic vol] 90.5 fL Normal 80.0-98.0 [facility] Comment on above: Performed By: #### L [id number] ####Assistant Grocery: NED PAK ([id number])[facility])[address] [place] [address] Platelet mean volume (Bld) [Entitic vol] 6.8 fL Low 7.4-12.4 [facility] Comment on above: Performed By: #### L [id number] ####Assistant Grocery: NED PAK ([id number])[facility])[address] [place] [address] PLATELETS (10*3/UL) IN BLOOD AUTOMATED COUNT 606 10*3/uL High 140-440 [facility] Comment on above: Performed By: #### L [id number] ####Assistant Grocery: NED PAK ([id number])[facility])[address] [place] [address] RBC (Bld) [#/Vol] 3.07 10*6/uL Low 3.8-5.20 [facility] Comment on above: Performed By: #### L [id number] ####Assistant Grocery: NED PAK ([id number])[facility])[address] [place] [address] WBC (Bld) [#/Vol] 16.9 10*3/uL High 3.6-10.7 [facility] Comment on above: Performed By: #### L [id number] ####Assistant Grocery: NED PAK ([id number])[facility])[address] [place] [address] IDNon 12-29-2022 IDN Normal [facility] Nursing Noteon 12-29-2022 Nursing Note Normal [facility] PROCALCITONIN TESTon 023 PROCALCITONIN 0.07 ng/mL Normal 0.00-0.09 [facility] Comment on above: Result Comment: ORDE R COMMENTS:PCT <0.50 = Low risk of severe sepsis and/or septic shock.PCT >2.00 = High risk of severe sepsis and/or septic shock. Performed By: #### L [id number] ####Assistant Grocery: NED PAK ([id number])[facility])[address] [place] [address] Progress Noteon 12-29-2022 Progress Note Normal [facility] Progress Note Normal [facility] Progress Note Normal [facility] Progress Note Normal [facility] XR CHEST 1 VIEWon 12-29-2022 XR CHEST 1 VIEW Normal [facility] CARECOORDon 12-28-2022 CARECOORD Normal [facility] Nursing Noteon 12-28-2022 Nursing Note 12/27/22 @ 2325 New # 22g PIV inserted to L FA per this RN after non assigned nurse attempted x 3 unsuccessful attempts d/t veins blew. Pt tolerated good. Will start IV antibiotics per order at this time. Normal [facility] PROCALCITONIN TESTon 023 PROCALCITONIN 0.09 ng/mL Normal 0.00-0.09 [facility] Comment on above: Result Comment: ORDE R COMMENTS:PCT <0.50 = Low risk of severe sepsis and/or septic shock.PCT >2.00 = High risk of severe sepsis and/or septic shock. Performed By: #### L [id number] ####Assistant Grocery: NED PAK ([id number])[address] Progress Noteon 12-28-2022 Progress Note Normal [facility] Progress Note Vancomycin therapy h as been discontinued by Lynnette Phelan on 12/28. Thank you for the consult. Pharmacy signing off for vancomycin dosing. Casi Salazar, PharmD Date: 12/28/22 Time: 2:01 PM Normal [facility] Progress Note Normal [facility] Progress Note Normal [facility] Progress Note Normal [facility] VANCOMYCIN, RANDOMon 023 VANCOMYCIN 11.8 ug/mL Low 15.0-20.0 [facility] Comment on above: Order Comment: Pleas e draw random vancomycin level > 2 hours after the end of the vancomycin infusion. Thank you! Performed By: #### L AB40 ####Assistant Grocery: NED PAK ([id number])[address] IDNon 12-27-2022 IDN Normal [facility] Nursing Noteon 12-27-2022 Nursing Note Normal [facility] Progress Noteon 12-27-2022 Progress Note Normal [facility] Progress Note Normal [facility] Progress Note Normal [facility] Progress Note Normal [facility] XR CHEST 1 VIEWon 12-27-2022 XR CHEST 1 VIEW Normal [facility] CARECOORDon 12-26-2022 CARECOORD Normal [facility] CBC WITH AUTO DIFFERENTIALon 12-26-2022 Erythrocyte distribution width (RBC) [Ratio] 14.5 % Normal 11.5-14.5 [facility] Comment on above: Performed By: #### L [id number], [id number] ####Assistant Grocery: NED PAK ([id number])[address] ERYTHROCYTE MEAN CORPUSCULAR HEMOGLOBIN CONCENTRATION (G/DL) BY AUTOMATED 32.5 % Normal 32.0-36.0 [facility] Comment on above: Performed By: #### L [id number], [id number] ####Assistant Grocery: NED PAK ([id number])[facility])[address] [place] [address] Hematocrit (Bld) [Volume fraction] 25.5 % Low 35.0-47.0 [facility] Comment on above: Performed By: #### L [id number], [id number] ####Assistant Grocery: NED PAK ([id number])[address] Hemoglobin (Bld) [Mass/Vol] 8.3 g/dL Low 11.7-16.0 [facility] Comment on above: Performed By: #### Tameka [id number], [id number] ####Assistant Grocery: NED PAK ([id number])[facility])[address] [place] [address] MCH (RBC) [Entitic mass] 29.2 pg Normal 26.0-34.0 [facility] Comment on above: Performed By: #### L [id number], [id number] ####Assistant Grocery: NED PAK ([id number])[facility])[address] [place] [address] MCV (RBC) [Entitic vol] 89.8 fL Normal 80.0-98.0 [facility] Comment on above: Performed By: #### L OF1192, [id number] ####Assistant [employer]: NED PAK ([id number])[address] NRBC (PER 100 WBCS) BY AUTOMATED COUNT 0.2 /100 WBCs Normal 0.0-2.0 [facility] Comment on above: Performed By: #### L [id number], [id number] ####Assistant Grocery: NED PAK ([id number])[facility])[address] [place] [address] Platelet mean volume (Bld) [Entitic vol] 7.0 fL Low 7.4-12.4 [facility] Comment on above: Performed By: #### L [id number], [id number] ####Assistant Grocery: NED PAK ([id number])[facility])[address] [place] [address] PLATELETS (10*3/UL) IN BLOOD AUTOMATED COUNT 499 10*3/uL High 140-440 [facility] Comment on above: Performed By: #### Tameka [id number], [id number] ####Assistant Grocery: NED PAK ([id number])[facility])[address] [place] [address] RBC (Bld) [#/Vol] 2.84 10*6/uL Low 3.8-5.20 [facility] Comment on above: Performed By: #### Tameka [id number], [id number] ####Assistant Grocery: NED PAK ([id number])[facility])[address] [place] [address] WBC (Bld) [#/Vol] 13.8 10*3/uL High 3.6-10.7 [facility] Comment on above: Performed By: #### L [id number], [id number] ####Assistant Grocery: NED PAK ([id number])[facility])[address] [place] [address] [place] IDNon 12-26-2022 IDN Normal [facility] MANUAL DIFFERENTIALon 2022 BAND NEUTROPHILS (10*3/UL) BLOOD MANUAL COUNT 1.0 10*3/uL High <=0.0 [facility] Comment on above: Performed By: #### L [id number], [id number] ####Assistant Grocery: NED PAK ([phone])[facility] ([facility])[address] [place] [address] [place] BAND NEUTROPHILS TOTAL PER COUNTED LEUKOCYTES BY MANUAL COUNT 7 Normal [facility] Comment on above: Performed By: #### L [id number], [id number] ####Assistant Grocery: NED PAK ([phone])[facility] ([facility])[address] [place] [address] CELLS COUNTED TOTAL (#) IN BLOOD 100 Normal [facility] Comment on above: Performed By: #### L [id number], [id number] ####Assistant Grocery: NED PAK ([phone])[facility])[address] [place] [address] DIFFERENTIAL METHOD Manual differential performed Normal [facility] Comment on above: Performed By: #### L [id number], [id number] ####Assistant Grocery: NED PAK ([phone])[facility] ([facility])[address] [place] [address] EOSINOPHILS (10*3/UL) IN BLOOD BY MANUAL COUNT 0.3 10*3/uL Normal 0.0-0.5 [facility] Comment on above: Performed By: #### L [id number], [id number] ####Assistant Grocery: NED PAK ([phone])[facility] ([facility])[address] [place] [address] [place] EOSINOPHILS TOTAL PER COUNTED LEUKOCYTES BY MANUAL COUNT 2 High 0-1 [facility] Comment on above: Performed By: #### L [id number], [id number] ####Assistant Grocery: NED PAK ([phone])[facility] ([facility])[address] [place] [address] [place] EOSINOPHILS/100 LEUKOCYTES IN BLOOD BY MANUAL COUNT 2 % Normal 1-6 [facility] Comment on above: Performed By: #### L [id number], [id number] ####Assistant Grocery: NED PAK ([phone])[facility] ([facility])[address] [place] [address] HYPERSEGMENTED NEUTROPHILS IN BLOOD BY LIGHT MICROSCOPY (PRESENT) Present Abnormal (none) [facility] Comment on above: Performed By: #### L [id number], [id number] ####Assistant Grocery: NED PAK ([phone])[facility])[address] [place] [address] LEUKOCYTES (10*3/UL) NUCLEATED ERYTHROCYTE ADJUST 13.8 10*3/uL High 3.6-10.7 [facility] Comment on above: Performed By: #### L [id number], [id number] ####Assistant Grocery: NED PAK ([phone])[facility])[address] [place] [address] LYMPHOCYTES (10*3/UL) IN BLOOD BY MANUAL COUNT 1.2 10*3/uL Normal 1.0-4.3 [facility] Comment on above: Performed By: #### L [id number], [id number] ####Assistant Grocery: NED PAK ([phone])[facility])[address] [place] [address] LYMPHOCYTES TOTAL PER COUNTED LEUKOCYTES BY MANUAL COUNT 9 Normal [facility] Comment on above: Performed By: #### L [id number], [id number] ####Assistant Grocery: NED PAK ([phone])[facility])[address] [place] [address] LYMPHOCYTES VARIANT/100 LEUKOCYTES IN BLOOD 1 % High <=0 [facility] Comment on above: Performed By: #### L BE8922, [id number] ####Assistant Grocery: NED PAK ([phone])[facility])[address] [place] [address] [place] LYMPHOCYTES/100 LEUKOCYTES IN BLOOD BY MANUAL COUNT 9 % Low 20-40 [facility] Comment on above: Performed By: #### L [id number], [id number] ####Assistant Grocery: NED PAK ([phone])[facility])[address] [place] [address] [place] METAMYELOCYTES (10*3/UL) IN BLOOD BY MANUAL COUNT 0.3 10*3/uL High <=0.0 [facility] Comment on above: Performed By: #### L SW3442, [id number] ####Assistant Grocery: NED PAK ([phone])[facility])[address] [place] [address] [place] METAMYELOCYTES TOTAL PER COUNTED LEUKOCYTES BY MANUAL COUNT 2 Normal [facility] Comment on above: Performed By: #### L FQ2521, [id number] ####Assistant Grocery: NED PAK ([phone])[facility])[address] [place] [address] [place] METAMYELOCYTES/100 LEUKOCYTES IN BLOOD BY MANUAL COUNT 2 % High <=0 [facility] Comment on above: Performed By: #### L [id number], [id number] ####Assistant Grocery: NED PAK ([phone])[facility])[address] [place] [address] [place] MONOCYTES (10*3/UL) IN BLOOD BY MANUAL COUNT 1.4 10*3/uL High 0.0-0.8 [facility] Comment on above: Performed By: #### L [id number], [id number] ####Assistant Grocery: NED PAK ([phone])[facility])[address] [place] [address] [place] MONOCYTES TOTAL PER COUNTED LEUKOCYTES BY MANUAL COUNT 10 Normal [facility] Comment on above: Performed By: #### L RK5447, [id number] ####Assistant Grocery: NED PAK ([phone])[facility])[address] [place] [address] [place] MONOCYTES/100 LEUKOCYTES IN BLOOD BY MANUAL COUNT 10 % Normal 2-10 [facility] Comment on above: Performed By: #### L QI4866, [id number] ####Assistant Grocery: NED PAK ([phone])[facility])[address] [place] [address] [place] NEUTROPHILS (SEGS+BANDS) (10*3/UL) BY MANUAL COUNT 10.5 10*3/uL High 1.8-7.0 [facility] Comment on above: Performed By: #### L XA7454, [id number] ####Assistant Grocery: NED PAK ([phone])[facility])[address] [place] [address] [place] NEUTROPHILS BAND FORM/100 LEUKOCYTES IN BLOOD BY MANUAL COUNT 7 % High <=0 [facility] Comment on above: Performed By: #### L [id number], [id number] ####Assistant Grocery: NDE PAK ([phone])[facility])[address] [place] [address] [place] NEUTROPHILS TOTAL PER COUNTED LEUKOCYTES BY MANUAL COUNT 69 Normal [facility] Comment on above: Performed By: #### L YO2036, [id number] ####Assistant Grocery: NED PAK ([phone])[facility])[address] [place] [address] NUCLEATED ERYTHROCYTES/100 LEUKOCYTES IN BLOOD BY MANUAL COUNT 2 % Normal [facility] Comment on above: Performed By: #### L [id number], [id number] ####Assistant Grocery: NED PAK ([phone])[facility])[address] [place] [address] [place] OVALOCYTES PRESENCE IN BLOOD BY LIGHT MICROSCOPY Slight Abnormal (none) [facility] Comment on above: Performed By: #### L SR8583, [id number] ####Assistant Grocery: NED PAK ([phone])[facility])[address] [place] [address] [place] PLATELET MORPHOLOGY IN BLOOD Normal Normal [facility] Comment on above: Performed By: #### L UM5044, [id number] ####Assistant Grocery: NED PAK ([phone])[facility])[address] [place] [address] [place] POIKILOCYTOSIS (PRESENCE) IN BLOOD BY LIGHT MICROSCOPY Slight Abnormal (none) [facility] Comment on above: Performed By: #### L [id number], [id number] ####Assistant Grocery: NED PAK ([id number])[facility])[address] [place] [address] [place] POLYCHROMASIA IN BLOOD BY LIGHT MICROSCOPY Slight Abnormal (none) [facility] Comment on above: Performed By: #### L [id number], [id number] ####Assistant Grocery: NED PAK ([phone])[facility])[address] [place] [address] SEGEMENTED NEUTROPHILS/100 LEUKOCYTES BY MANUAL COUNT 69 % Normal 40-80 [facility] Comment on above: Performed By: #### L YL2391, [id number] ####Assistant Grocery: NED PAK ([phone])[facility])[address] [place] [address] SEGMENTED NEUTROPHILS (10*3/UL)IN BLOOD BY MANUAL COUNT 10.5 10*3/uL High 1.8-7.0 [facility] Comment on above: Performed By: #### L TQ2562, [id number] ####Assistant Grocery: NED PAK ([phone])[facility])[address] [place] [address] VACUOLATED NEUTROPHILS PRESENCE IN BLOOD BY LIGHT MICROSCOPY (PRESENT) Present Abnormal (none) [facility] Comment on above: Performed By: #### L HL6297, [id number] ####Assistant Grocery: NED PAK ([phone])[facility])[address] [place] [address] VARIANT LYMPHOCYTES (10*3/UL) IN BLOOD BY MANUAL COUNT 0.1 10*3/uL High <=0.0 [facility] Comment on above: Performed By: #### L HA9025, [id number] ####Assistant Grocery: NED PAK ([phone])[facility])[address] [place] [address] VARIANT LYMPHOCYTES TOTAL PER COUNTED LEUKOCYTES BY MANUAL COUNT 1 Normal [facility] Comment on above: Performed By: #### L UP4763, [id number] ####Assistant Grocery: NED PAK ([phone])[facility] ([facility])[address] [place] [address] Nursing Noteon 12-26-2022 Nursing Note Contact list updated Renée is primary Jose Luis is to be contacted secondary at [phone] Normal [facility] Nursing Note Patients family askpopeye huerta that primary contact be updated to gabrielle Chinchilla as patients is MODOC. Patient is ok with Renée being primary contact. Will adjust in contact list [facility] Nursing Note Patient family asktabatha gutierrez for an update. Message sent to trauma CATHRYN Church she will come to bedside to speak to patient Normal [facility] Nursing Note Patient bladder scan millie for greater than 400 ml. Patient straight cathed as ordered for 500 ml urine Normal [facility] Nursing Note Normal [facility] Progress Noteon 12-26-2022 Progress Note 1800 bladder scan wa s >537ml. Patient has been straight catheterized 3 times since [address] Avendano made aware and order received to place indwelling duarte catheter. Normal [facility] Progress Note Normal [facility] BASIC METABOLIC PANELon 10-0 Anion gap [Moles/Vol] 10 mmol/L Normal 3-13 [facility] Comment on above: Performed By: #### L AB15 ####Assistant Grocery: NED PAK ([phone])[address] Calcium [Mass/Vol] 8.8 mg/dL Normal 8.4-10.4 [facility] Comment on above: Performed By: #### L AB15 ####Assistant Grocery: NED PAK ([phone])[facility])[address] [place] [address] Chloride [Moles/Vol] 105 mmol/L Normal 98-107 [facility] Comment on above: Performed By: #### L AB15 ####Assistant Grocery: NED PAK ([phone])[address] CO2 [Moles/Vol] 24 mmol/L Normal 22-30 [facility] Comment on above: Performed By: #### L AB15 ####Assistant Grocery: NED PAK ([id number])[facility] [place] [address] Creatinine [Mass/Vol] 0.63 mg/dL Normal 0.52-1.04 [facility] Comment on above: Performed By: #### L AB15 ####Assistant Grocery: NED PAK ([phone])[facility])[address] [place] [address] [place] GLOMERULAR FILTRATION RATE ML/MIN/1.73 SQ M.PREDICTED 79.3 mL/min/1.73m*2 Normal >60.0 [facility] Comment on above: Result Comment: Calc ulation based on the Chronic Kidney Disease Epidemiology Collaboration (CKD-EPI) equation refit without adjustment for race Performed By: #### L AB15 ####Assistant Grocery: NED PAK ([id number])[facility] ([facility])[address] [place] [address] Glucose [Mass/Vol] 117 mg/dL High 70-100 [facility] Comment on above: Performed By: #### L AB15 ####Assistant Grocery: NED PAK ([id number])[facility])[address] [place] [address] Potassium [Moles/Vol] 3.7 mmol/L Normal 3.5-5.1 [facility] Comment on above: Performed By: #### L AB15 ####Assistant Grocery: NED PAK ([phone])[facility])[address] [place] [address] [place] Sodium [Moles/Vol] 139 mmol/L Normal 135-145 [facility] Comment on above: Performed By: #### L AB15 ####Assistant Grocery: NED PAK ([phone])[facility])[address] [place] [address] [place] Urea nitrogen [Mass/Vol] 26 mg/dL High 7-17 [facility] Comment on above: Performed By: #### L AB15 ####Assistant Grocery: NED PAK ([phone])[facility])[address] [place] [address] [place] CARECOORDon 12-25-2022 CARECOORD Normal [facility] CBC WITH AUTO DIFFERENTIALon 12-25-2022 Erythrocyte distribution width (RBC) [Ratio] 14.9 % High 11.5-14.5 [facility] Comment on above: Performed By: #### L KM2069, [id number] ####Assistant Grocery: NED PAK ([phone])[facility])[address] [place] [address] ERYTHROCYTE MEAN CORPUSCULAR HEMOGLOBIN CONCENTRATION (G/DL) BY AUTOMATED 32.6 % Normal 32.0-36.0 [facility] Comment on above: Performed By: #### L [id number], [id number] ####Assistant Grocery: NED PAK ([phone])[facility])[address] [place] [address] Hematocrit (Bld) [Volume fraction] 26.6 % Low 35.0-47.0 [facility] Comment on above: Performed By: #### Tameka GM0007, [id number] ####Assistant Grocery: NED PAK ([phone])[address] Hemoglobin (Bld) [Mass/Vol] 8.7 g/dL Low 11.7-16.0 [facility] Comment on above: Performed By: #### L AW5184, [id number] ####Assistant Grocery: NED PAK ([id number])[address] MCH (RBC) [Entitic mass] 29.8 pg Normal 26.0-34.0 [facility] Comment on above: Performed By: #### L IF3344, [id number] ####Assistant Grocery: NED PAK ([phone])[facility])[address] [place] [address] MCV (RBC) [Entitic vol] 91.3 fL Normal 80.0-98.0 [facility] Comment on above: Performed By: #### L DN0574, [id number] ####Assistant Grocery: NED PAK ([phone])[facility])[address] [place] [address] NRBC (PER 100 WBCS) BY AUTOMATED COUNT 0.3 /100 WBCs Normal 0.0-2.0 [facility] Comment on above: Performed By: #### L DY7769, [id number] ####Assistant Grocery: NED PAK ([phone])[facility])[address] [place] [address] Platelet mean volume (Bld) [Entitic vol] 7.6 fL Normal 7.4-12.4 [facility] Comment on above: Performed By: #### L PB2791, [id number] ####Assistant Grocery: NED PAK ([phone])[facility])[address] [place] [address] PLATELETS (10*3/UL) IN BLOOD AUTOMATED COUNT 309 10*3/uL Normal 140-440 [facility] Comment on above: Performed By: #### L PE7687, PFA6372 ####Assistant Grocery: NED PAK ([phone])[facility])[address] [place] [address] RBC (Bld) [#/Vol] 2.92 10*6/uL Low 3.8-5.20 [facility] Comment on above: Performed By: #### L OT0632, [id number] ####Assistant Grocery: NED PAK ([id number])[facility])[address] [place] [address] WBC (Bld) [#/Vol] 14.8 10*3/uL High 3.6-10.7 [facility] Comment on above: Performed By: #### L VI2447, [id number] ####Assistant Grocery: NED PAK ([phone])[facility])[address] [place] [address] MANUAL DIFFERENTIALon 2022 BAND NEUTROPHILS (10*3/UL) BLOOD MANUAL COUNT 0.1 10*3/uL High <=0.0 [facility] Comment on above: Performed By: #### L AT9332, [id number] ####Assistant Grocery: NED PAK ([phone])[facility])[address] [place] [address] BAND NEUTROPHILS TOTAL PER COUNTED LEUKOCYTES BY MANUAL COUNT 1 Normal [facility] Comment on above: Performed By: #### L PJ3663, [id number] ####Assistant Grocery: NED PAK ([phone])[facility])[address] [place] [address] CELLS COUNTED TOTAL (#) IN BLOOD 100 Normal [facility] Comment on above: Performed By: #### L NR3298, [id number] ####Assistant Grocery: NED PAK ([id number])[facility])[address] [place] [address] DIFFERENTIAL METHOD Manual differential performed Normal [facility] Comment on above: Performed By: #### L KY7768, [id number] ####Assistant Grocery: NED PAK ([id number])[facility])[address] [place] [address] [place] EOSINOPHILS (10*3/UL) IN BLOOD BY MANUAL COUNT 0.6 10*3/uL High 0.0-0.5 [facility] Comment on above: Performed By: #### L IJ8238, [id number] ####Assistant Grocery: NED PAK ([id number])[facility])[address] [place] [address] [place] EOSINOPHILS TOTAL PER COUNTED LEUKOCYTES BY MANUAL COUNT 4 High 0-1 [facility] Comment on above: Performed By: #### L ZH7051, [id number] ####Assistant Grocery: NED PAK ([id number])[facility])[address] [place] [address] [place] EOSINOPHILS/100 LEUKOCYTES IN BLOOD BY MANUAL COUNT 4 % Normal 1-6 [facility] Comment on above: Performed By: #### L YH1943, [id number] ####Assistant Grocery: NED [id number])[facility] [place] [address] [place] LEUKOCYTE MORPHOLOGY FINDING IN BLOOD Normal Normal [facility] Comment on above: Performed By: #### L MG4559, [id number] ####Assistant Grocery: NED PAK ([phone])[facility])[address] [place] [address] LEUKOCYTES (10*3/UL) NUCLEATED ERYTHROCYTE ADJUST 14.8 10*3/uL High 3.6-10.7 [facility] Comment on above: Performed By: #### L PI2981, [id number] ####Assistant Grocery: NED PAK ([phone])[facility])[address] [place] [address] LYMPHOCYTES (10*3/UL) IN BLOOD BY MANUAL COUNT 1.8 10*3/uL Normal 1.0-4.3 [facility] Comment on above: Performed By: #### Tameka NE4102, [id number] ####Assistant Grocery: NED PAK ([phone])[facility])[address] [place] [address] [place] LYMPHOCYTES TOTAL PER COUNTED LEUKOCYTES BY MANUAL COUNT 12 Normal [facility] Comment on above: Performed By: #### Tameka NQ0323, [id number] ####Assistant Grocery: NED PAK ([id number])[facility])[address] [place] [address] [place] LYMPHOCYTES/100 LEUKOCYTES IN BLOOD BY MANUAL COUNT 12 % Low 20-40 [facility] Comment on above: Performed By: #### L AT2053, [id number] ####Assistant Grocery: NED PAK ([phone])[facility])[address] [place] [address] [place] METAMYELOCYTES (10*3/UL) IN BLOOD BY MANUAL COUNT 0.1 10*3/uL High <=0.0 [facility] Comment on above: Performed By: #### L [id number], [id number] ####Assistant Grocery: NED PAK ([phone])[facility])[address] [place] [address] [place] METAMYELOCYTES TOTAL PER COUNTED LEUKOCYTES BY MANUAL COUNT 1 Normal [facility] Comment on above: Performed By: #### L JB9554, [id number] ####Assistant Grocery: NED PAK ([id number])[facility])[address] [place] [address] [place] METAMYELOCYTES/100 LEUKOCYTES IN BLOOD BY MANUAL COUNT 1 % High <=0 [facility] Comment on above: Performed By: #### L ZH8145, NVX3821 ####Assistant Grocery: NED PAK ([id number])[facility])[address] [place] [address] [place] MONOCYTES (10*3/UL) IN BLOOD BY MANUAL COUNT 0.9 10*3/uL High 0.0-0.8 [facility] Comment on above: Performed By: #### L FP5722, [id number] ####Assistant Grocery: NED PAK ([phone])[facility])[address] [place] [address] [place] MONOCYTES TOTAL PER COUNTED LEUKOCYTES BY MANUAL COUNT 6 Normal [facility] Comment on above: Performed By: #### L AF0954, [id number] ####Assistant Grocery: NED PAK ([phone])[facility])[address] [place] [address] [place] MONOCYTES/100 LEUKOCYTES IN BLOOD BY MANUAL COUNT 6 % Normal 2-10 [facility] Comment on above: Performed By: #### L XC9652, [id number] ####Assistant Grocery: NED PAK ([phone])[facility])[address] [place] [address] [place] MYELOCYTES (10*3/UL) IN BLOOD BY MANUAL COUNT 0.1 10*3/uL High <=0.0 [facility] Comment on above: Performed By: #### L OT4810, [id number] ####Assistant Grocery: NED PAK ([phone])[facility])[address] [place] [address] [place] MYELOCYTES COUNTED BY MANUAL COUNT 1 Normal [facility] Comment on above: Performed By: #### L XU5962, [id number] ####Assistant Grocery: NED PAK ([phone])[facility])[address] [place] [address] [place] MYELOCYTES/100 LEUKOCYTES IN BLOOD BY MANUAL COUNT 1 % High <=0 [facility] Comment on above: Performed By: #### L IU5244, ERJ0259 ####Assistant Grocery: NED PAK ([phone])[facility])[address] [place] [address] [place] NEUTROPHILS (SEGS+BANDS) (10*3/UL) BY MANUAL COUNT 11.2 10*3/uL High 1.8-7.0 [facility] Comment on above: Performed By: #### L XO0236, [id number] ####Assistant Grocery: NED PAK ([phone])[facility])[address] [place] [address] [place] NEUTROPHILS BAND FORM/100 LEUKOCYTES IN BLOOD BY MANUAL COUNT 1 % High <=0 [facility] Comment on above: Performed By: #### Tameka JY9148, [id number] ####Assistant Grocery: NED PAK ([phone])[facility])[address] [place] [address] [place] NEUTROPHILS TOTAL PER COUNTED LEUKOCYTES BY MANUAL COUNT 75 Normal [facility] Comment on above: Performed By: #### L VK1096, UDY0077 ####Assistant Grocery: NED PAK ([phone])[facility])[address] [place] [address] [place] NUCLEATED ERYTHROCYTES/100 LEUKOCYTES IN BLOOD BY MANUAL COUNT 1 % Normal [facility] Comment on above: Performed By: #### L NF2103, [id number] ####Assistant Grocery: NED PAK ([phone])[facility])[address] [place] [address] [place] OVALOCYTES PRESENCE IN BLOOD BY LIGHT MICROSCOPY Slight Abnormal (none) [facility] Comment on above: Performed By: #### L [id number], [id number] ####Assistant Grocery: NED PAK ([phone])[facility] [place] [address] PLATELET MORPHOLOGY IN BLOOD Normal Normal [facility] Comment on above: Performed By: #### L DZ7963, [id number] ####Assistant Grocery: NED PAK ([phone])[facility] ([facility])[address] [place] [address] POIKILOCYTOSIS (PRESENCE) IN BLOOD BY LIGHT MICROSCOPY Slight Abnormal (none) [facility] Comment on above: Performed By: #### L ET9249, [id number] ####Assistant Grocery: NED PAK ([phone])[facility])[address] [place] [address] POLYCHROMASIA IN BLOOD BY LIGHT MICROSCOPY Slight Abnormal (none) [facility] Comment on above: Performed By: #### Tameka [id number], [id number] ####Assistant [employer]: NED PAK ([id number])[facility] ([facility])[address] [place] [address] SEGEMENTED NEUTROPHILS/100 LEUKOCYTES BY MANUAL COUNT 75 % Normal 40-80 [facility] Comment on above: Performed By: #### Tameka [id number], [id number] ####Assistant [employer]: NED PAK ([id number])[facility] ([facility])[address] [place] [address] SEGMENTED NEUTROPHILS (10*3/UL)IN BLOOD BY MANUAL COUNT 11.2 10*3/uL High 1.8-7.0 [facility] Comment on above: Performed By: #### L [id number], [id number] ####Assistant [employer]: NED PAK ([id number])[facility] ([facility])[address] [place] [address] Progress Noteon 12-25-2022 Progress Note Normal [facility] Progress Note Normal [facility] Progress Note Normal [facility] Progress Note Normal [facility] BASIC METABOLIC PANELon Anion gap [Moles/Vol] 11 mmol/L Normal 3-13 [facility] Comment on above: Performed By: #### L [id number] ####Assistant [employer]: NED PAK ([phone])[facility])[address] [place] [address] Calcium [Mass/Vol] 8.6 mg/dL Normal 8.4-10.4 [facility] Comment on above: Performed By: #### L [id number] ####Assistant [employer]: NED PAK ([phone])[facility] ([facility])[address] [place] [address] Chloride [Moles/Vol] 109 mmol/L High 98-107 [facility] Comment on above: Performed By: #### L [id number] ####Assistant [employer]: NED PAK ([id number])[facility] ([facility])[address] [place] [address] CO2 [Moles/Vol] 23 mmol/L Normal 22-30 [facility] Comment on above: Performed By: #### L [id number] ####Assistant [employer]: NED PAK ([id number])[facility] ([facility])[address] [place] [address] Creatinine [Mass/Vol] 0.64 mg/dL Normal 0.52-1.04 [facility] Comment on above: Performed By: #### L [id number] ####Assistant [employer]: NED PAK ([phone])[facility])[address] [place] [address] [place] GLOMERULAR FILTRATION RATE ML/MIN/1.73 SQ M.PREDICTED 79.0 mL/min/1.73m*2 Normal >60.0 [facility] Comment on above: Result Comment: Calc ulation based on the Chronic Kidney Disease Epidemiology Collaboration (CKD-EPI) equation refit without adjustment for race Performed By: #### L AB15 ####Assistant Grocery: NED PAK ([phone])[facility] ([facility])[address] [place] [address] Glucose [Mass/Vol] 157 mg/dL High 70-100 [facility] Comment on above: Performed By: #### L AB15 ####Assistant Grocery: NED PAK ([phone])[facility])[address] [place] [address] Potassium [Moles/Vol] 3.7 mmol/L Normal 3.5-5.1 [facility] Comment on above: Performed By: #### L AB15 ####Assistant Grocery: NED PAK ([phone])[facility] ([facility])[address] [place] [address] Sodium [Moles/Vol] 143 mmol/L Normal 135-145 [facility] Comment on above: Performed By: #### L AB15 ####Assistant Grocery: NED PAK ([id number])[facility])[address] [place] [address] Urea nitrogen [Mass/Vol] 27 mg/dL High 7-17 [facility] Comment on above: Performed By: #### L AB15 ####Assistant Grocery: NED PAK ([id number])[facility] ([facility])[address] [place] [address] CARECOORDon 12-24-2022 CARECOORD Normal [facility] CBC WITH AUTO DIFFERENTIALon 12-24-2022 Erythrocyte distribution width (RBC) [Ratio] 13.9 % Normal 11.5-14.5 [facility] Comment on above: Performed By: #### L [id number], [id number] ####Assistant Grocery: NED PAK ([id number])[facility] ([facility])[address] [place] [address] ERYTHROCYTE MEAN CORPUSCULAR HEMOGLOBIN CONCENTRATION (G/DL) BY AUTOMATED 32.9 % Normal 32.0-36.0 [facility] Comment on above: Performed By: #### L [id number], [id number] ####Assistant Grocery: NED PAK ([phone])[facility] ([facility])[address] [place] [address] Hematocrit (Bld) [Volume fraction] 22.8 % Low 35.0-47.0 [facility] Comment on above: Performed By: #### L IL3807, [id number] ####Assistant Grocery: NED PAK ([phone])[address] Hemoglobin (Bld) [Mass/Vol] 7.5 g/dL Low 11.7-16.0 [facility] Comment on above: Performed By: #### L IK3870, [id number] ####Assistant Grocery: NED PAK ([phone])[facility])[address] [place] [address] MCH (RBC) [Entitic mass] 29.0 pg Normal 26.0-34.0 [facility] Comment on above: Performed By: #### L GP4272, [id number] ####Assistant Grocery: NED PAK ([phone])[address] MCV (RBC) [Entitic vol] 88.2 fL Normal 80.0-98.0 [facility] Comment on above: Performed By: #### L JF4893, [id number] ####Assistant Grocery: NED PAK ([phone])[address] NRBC (PER 100 WBCS) BY AUTOMATED COUNT 0.2 /100 WBCs Normal 0.0-2.0 [facility] Comment on above: Performed By: #### L YN9586, [id number] ####Assistant Grocery: NED PAK ([phone])[facility])[address] [place] [address] Platelet mean volume (Bld) [Entitic vol] 7.5 fL Normal 7.4-12.4 [facility] Comment on above: Performed By: #### L WW3834, [id number] ####Assistant Grocery: NED PAK ([id number])[address] PLATELETS (10*3/UL) IN BLOOD AUTOMATED COUNT 349 10*3/uL Normal 140-440 [facility] Comment on above: Performed By: #### L QV1682, AZT3937 ####Assistant Grocery: NED PAK ([phone])[facility])[address] [place] [address] RBC (Bld) [#/Vol] 2.59 10*6/uL Low 3.8-5.20 [facility] Comment on above: Performed By: #### L AQ6432, [id number] ####Assistant Grocery: NED PAK ([phone])[facility])[address] [place] [address] WBC (Bld) [#/Vol] 15.8 10*3/uL High 3.6-10.7 [facility] Comment on above: Performed By: #### Tameka AZ1290, [id number] ####Assistant Grocery: NED PAK ([phone])[facility])[address] [place] [address] MANUAL DIFFERENTIALon 2022 ANISOCYTOSIS PRESENCE IN BLOOD BY LIGHT MICROSCOPY Slight Abnormal (none) [facility] Comment on above: Performed By: #### Tameka [id number], [id number] ####Assistant Grocery: NED PAK ([phone])[facility])[address] [place] [address] BAND NEUTROPHILS (10*3/UL) BLOOD MANUAL COUNT 0.8 10*3/uL High <=0.0 [facility] Comment on above: Performed By: #### L EZ9047, [id number] ####Assistant Grocery: NED PAK ([phone])[facility])[address] [place] [address] BAND NEUTROPHILS TOTAL PER COUNTED LEUKOCYTES BY MANUAL COUNT 5 Normal [facility] Comment on above: Performed By: #### L EE9853, [id number] ####Assistant Grocery: NED PAK ([phone])[facility])[address] [place] [address] CELLS COUNTED TOTAL (#) IN BLOOD 100 Normal [facility] Comment on above: Performed By: #### L UY2452, [id number] ####Assistant Grocery: NED PAK ([id number])[address] DIFFERENTIAL METHOD Manual differential performed Normal [facility] Comment on above: Performed By: #### L ZP4490, [id number] ####Assistant Grocery: NED PAK ([phone])[facility])[address] [place] [address] LEUKOCYTE MORPHOLOGY FINDING IN BLOOD Normal Normal [facility] Comment on above: Performed By: #### L IW3428, [id number] ####Assistant Grocery: NED PAK ([phone])[address] LEUKOCYTES (10*3/UL) NUCLEATED ERYTHROCYTE ADJUST 15.8 10*3/uL High 3.6-10.7 [facility] Comment on above: Performed By: #### L DT3860, [id number] ####Assistant Grocery: NED PAK ([phone])[facility])[address] [place] [address] LYMPHOCYTES (10*3/UL) IN BLOOD BY MANUAL COUNT 1.9 10*3/uL Normal 1.0-4.3 [facility] Comment on above: Performed By: #### Tameka VN2952, [id number] ####Assistant Grocery: NED PAK ([phone])[facility])[address] [place] [address] LYMPHOCYTES TOTAL PER COUNTED LEUKOCYTES BY MANUAL COUNT 12 Normal [facility] Comment on above: Performed By: #### L EZ8009, [id number] ####Assistant Grocery: NED PAK ([phone])[facility])[address] [place] [address] LYMPHOCYTES/100 LEUKOCYTES IN BLOOD BY MANUAL COUNT 12 % Low 20-40 [facility] Comment on above: Performed By: #### L GG6589, [id number] ####Assistant Grocery: NED PAK ([id number])[facility] [place] [address] [place] METAMYELOCYTES (10*3/UL) IN BLOOD BY MANUAL COUNT 0.2 10*3/uL High <=0.0 [facility] Comment on above: Performed By: #### L IF4893, [id number] ####Assistant Grocery: NED PAK ([phone])[facility] ([facility])[address] [place] [address] [place] METAMYELOCYTES TOTAL PER COUNTED LEUKOCYTES BY MANUAL COUNT 1 Normal [facility] Comment on above: Performed By: #### L BP9341, [id number] ####Assistant Grocery: NED PAK ([id number])[facility] ([facility])[address] [place] [address] [place] METAMYELOCYTES/100 LEUKOCYTES IN BLOOD BY MANUAL COUNT 1 % High <=0 [facility] Comment on above: Performed By: #### L KP9333, [id number] ####Assistant Grocery: NED PAK ([phone])[facility] [place] [address] [place] MONOCYTES (10*3/UL) IN BLOOD BY MANUAL COUNT 1.1 10*3/uL High 0.0-0.8 [facility] Comment on above: Performed By: #### L ZW0856, [id number] ####Assistant Grocery: NED PAK ([phone])[facility] ([facility])[address] [place] [address] [place] MONOCYTES TOTAL PER COUNTED LEUKOCYTES BY MANUAL COUNT 7 Normal [facility] Comment on above: Performed By: #### L NZ2531, [id number] ####Assistant Grocery: NED PAK ([phone])[facility] ([facility])[address] [place] [address] [place] MONOCYTES/100 LEUKOCYTES IN BLOOD BY MANUAL COUNT 7 % Normal 2-10 [facility] Comment on above: Performed By: #### L CQ8687, [id number] ####Assistant Grocery: NED PAK ([phone])[facility] ([facility])[address] [place] [address] [place] NEUTROPHILS (SEGS+BANDS) (10*3/UL) BY MANUAL COUNT 12.6 10*3/uL High 1.8-7.0 [facility] Comment on above: Performed By: #### L QS1874, [id number] ####Assistant Grocery: NED PAK ([phone])[facility] ([facility])[address] [place] [address] [place] NEUTROPHILS BAND FORM/100 LEUKOCYTES IN BLOOD BY MANUAL COUNT 5 % High <=0 [facility] Comment on above: Performed By: #### L CC3879, JXS6403 ####Assistant Grocery: NED PAK ([phone])[facility])[address] [place] [address] NEUTROPHILS TOTAL PER COUNTED LEUKOCYTES BY MANUAL COUNT 75 Normal [facility] Comment on above: Performed By: #### L CQ2135, RNR7523 ####Assistant Grocery: NED PAK ([phone])[facility] ([facility])[address] [place] [address] [place] NUCLEATED ERYTHROCYTES/100 LEUKOCYTES IN BLOOD BY MANUAL COUNT 1 % Normal [facility] Comment on above: Performed By: #### L LW9328, UFR3487 ####Assistant Grocery: NED PAK ([phone])[facility] ([facility])[address] [place] [address] [place] OVALOCYTES PRESENCE IN BLOOD BY LIGHT MICROSCOPY Slight Abnormal (none) [facility] Comment on above: Performed By: #### L QQ9271, UFY8391 ####Assistant Grocery: NED PAK ([phone])[facility] ([facility])[address] [place] [address] [place] PLATELET MORPHOLOGY IN BLOOD Normal Normal [facility] Comment on above: Performed By: #### L LP7253, [id number] ####Assistant Grocery: NED PAK ([phone])[facility] ([facility])[address] [place] [address] [place] POIKILOCYTOSIS (PRESENCE) IN BLOOD BY LIGHT MICROSCOPY Slight Abnormal (none) [facility] Comment on above: Performed By: #### L PZ1180, THW1232 ####Assistant Grocery: NED APK ([phone])[facility])[address] [place] [address] POLYCHROMASIA IN BLOOD BY LIGHT MICROSCOPY Slight Abnormal (none) [facility] Comment on above: Performed By: #### L ZS4827, AXE1536 ####Assistant Grocery: NED PAK ([phone])[facility] ([facility])[address] [place] [address] SEGEMENTED NEUTROPHILS/100 LEUKOCYTES BY MANUAL COUNT 75 % Normal 40-80 [facility] Comment on above: Performed By: #### L AF5725, JBH5210 ####Assistant Grocery: NED PAK ([phone])[facility] ([facility])[address] [place] [address] SEGMENTED NEUTROPHILS (10*3/UL)IN BLOOD BY MANUAL COUNT 12.6 10*3/uL High 1.8-7.0 [facility] Comment on above: Performed By: #### L EZ5140, UZC6510 ####Assistant Grocery: NED PAK ([phone])[facility])[address] [place] [address] Nursing Noteon 12-24-2022 Nursing Note Pt to 3N at this ryland e with all belongings Normal [facility] Progress Noteon 12-24-2022 Progress Note Normal [facility] Progress Note Normal [facility] Progress Note Normal [facility] Progress Note Normal [facility] BASIC METABOLIC PANELon 10-0 Anion gap [Moles/Vol] 6 mmol/L Normal 3-13 [facility] Comment on above: Performed By: #### L AB40, LAB15 ####Assistant Grocery: NED PAK ([phone])[facility])[address] [place] [address] Calcium [Mass/Vol] 8.4 mg/dL Normal 8.4-10.4 [facility] Comment on above: Performed By: #### L AB40, LAB15 ####Assistant Grocery: NED PAK ([phone])[facility] ([facility])[address] [place] [address] [place] Chloride [Moles/Vol] 109 mmol/L High 98-107 [facility] Comment on above: Performed By: #### L AB40, LAB15 ####Assistant Grocery: NED PAK ([phone])[facility] ([facility])[address] [place] [address] [place] CO2 [Moles/Vol] 27 mmol/L Normal 22-30 [facility] Comment on above: Performed By: #### L AB40, LAB15 ####Assistant Grocery: NED PAK ([phone])[facility])[address] [place] [address] Creatinine [Mass/Vol] 0.71 mg/dL Normal 0.52-1.04 [facility] Comment on above: Performed By: #### L AB40, LAB15 ####Assistant Grocery: NED PAK ([phone])[facility] ([facility])[address] [place] [address] GLOMERULAR FILTRATION RATE ML/MIN/1.73 SQ M.PREDICTED 76.0 mL/min/1.73m*2 Normal >60.0 [facility] Comment on above: Result Comment: Calc ulation based on the Chronic Kidney Disease Epidemiology Collaboration (CKD-EPI) equation refit without adjustment for race Performed By: #### L AB40, LAB15 ####Assistant Grocery: NED PAK ([id number])[facility] ([facility])[address] [place] [address] [place] Glucose [Mass/Vol] 125 mg/dL High 70-100 [facility] Comment on above: Performed By: #### L AB40, LAB15 ####Assistant Grocery: NDE PAK ([phone])[facility])[address] [place] [address] Potassium [Moles/Vol] 3.6 mmol/L Normal 3.5-5.1 [facility] Comment on above: Performed By: #### L AB40, LAB15 ####Assistant Grocery: NED PAK ([id number])[address] Sodium [Moles/Vol] 141 mmol/L Normal 135-145 [facility] Comment on above: Performed By: #### L AB40, LAB15 ####Assistant Grocery: NED PAK ([phone])[address] Urea nitrogen [Mass/Vol] 29 mg/dL High 7-17 [facility] Comment on above: Performed By: #### L AB40, LAB15 ####Assistant Grocery: NED PAK ([phone])[address] C. DIFFICILE BY PCR WITH REF MALENA TO EIAon 12-23-2022 C. DIFFICILE BY PCR WITH REFLEX TO EIA C. DIFFICILE TOXIN PCR Reference Not Detected Not Detected ORDER COMMENTS: C. difficile infection is unlikely to be present. Methodology: Real-time PCR Normal [facility] Comment on above: Performed By: #### L [id number] ####Assistant Grocery: NED PAK ([phone])[address] CARECOORDon 12-23-2022 CARECOORD Normal [facility] CBC WITH AUTO DIFFERENTIALon 12-23-2022 Erythrocyte distribution width (RBC) [Ratio] 14.1 % Normal 11.5-14.5 [facility] Comment on above: Performed By: #### L UY4260, [id number] ####Assistant Grocery: NED PAK ([phone])[address] ERYTHROCYTE MEAN CORPUSCULAR HEMOGLOBIN CONCENTRATION (G/DL) BY AUTOMATED 33.1 % Normal 32.0-36.0 [facility] Comment on above: Performed By: #### L OQ8644, YGB7814 ####Assistant Grocery: NED [phone])[address] Hematocrit (Bld) [Volume fraction] 23.2 % Low 35.0-47.0 [facility] Comment on above: Performed By: #### L JA9869, OBY9374 ####Assistant Grocery: NED PAK ([phone])[address] Hemoglobin (Bld) [Mass/Vol] 7.7 g/dL Low 11.7-16.0 [facility] Comment on above: Performed By: #### L QY7672, HYA9117 ####Assistant Grocery: NED PAK ([phone])[address] MCH (RBC) [Entitic mass] 29.0 pg Normal 26.0-34.0 [facility] Comment on above: Performed By: #### Tameka SQ3605, OFG5613 ####Assistant Grocery: NED PAK ([phone])[facility])[address] [place] [address] MCV (RBC) [Entitic vol] 87.7 fL Normal 80.0-98.0 [facility] Comment on above: Performed By: #### L RF7834, PZX3916 ####Assistant Grocery: NED PAK ([phone])[address] Platelet mean volume (Bld) [Entitic vol] 7.2 fL Low 7.4-12.4 [facility] Comment on above: Performed By: #### L LP3104, JWA7187 ####Assistant Grocery: NED PAK ([phone])[address] PLATELETS (10*3/UL) IN BLOOD AUTOMATED COUNT 312 10*3/uL Normal 140-440 [facility] Comment on above: Performed By: #### L CJ9605, QZS9582 ####Assistant Grocery: NED [phone])[facility] [place] [address] RBC (Bld) [#/Vol] 2.65 10*6/uL Low 3.8-5.20 [facility] Comment on above: Performed By: #### L EB7624, [id number] ####Assistant Grocery: NED PAK ([phone])[facility] ([facility])[address] [place] [address] WBC (Bld) [#/Vol] 17.0 10*3/uL High 3.6-10.7 [facility] Comment on above: Performed By: #### L BB1072, [id number] ####Assistant Grocery: NED PAK ([phone])[facility] ([facility])[address] [place] [address] COMPLETE URINALYSISon 2022 BACTERIA (#/HPF) IN URINE Negative Normal Negative [facility] Comment on above: Performed By: #### L AB347 ####Assistant Grocery: NED PAK ([id number])[facility] ([facility])[address] [place] [address] BILIRUBIN, TOTAL PRESENCE IN URINE Negative Normal Negative [facility] Comment on above: Performed By: #### L AB347 ####Assistant Grocery: NED PAK ([phone])[facility] ([facility])[address] [place] [address] Clarity (U) Clear Normal Clear [facility] Comment on above: Performed By: #### L AB347 ####Assistant Grocery: NED PAK ([phone])[facility])[address] [place] [address] Color (U) Light Yellow Normal Lt. Yellow [facility] Comment on above: Performed By: #### L AB347 ####Assistant Grocery: NED PAK ([phone])[facility] ([facility])[address] [place] [address] GLUCOSE (MG/DL) IN URINE Normal Normal Normal (<70) [facility] Comment on above: Performed By: #### L AB347 ####Assistant Grocery: NED PAK ([phone])[facility] ([facility])[address] [place] [address] HEMOGLOBIN PRESENCE IN URINE Negative Normal Negative [facility] Comment on above: Performed By: #### L AB347 ####Assistant Grocery: NED PAK ([id number])[facility] ([facility])[address] [place] [address] Ketones Ql (U) Negative Normal Negative [facility] Comment on above: Performed By: #### L AB347 ####Assistant Grocery: NED PAK ([phone])[facility])[address] [place] [address] LEUKOCYTE ESTERASE PRESENCE IN URINE BY TEST STRIP 75 Danielito/uL Abnormal Negative [facility] Comment on above: Performed By: #### L AB347 ####Assistant Grocery: NED PAK ([phone])[facility] ([facility])[address] [place] [address] MUCUS (#/LPF) IN URINE SEDIMENT Few Normal Negative [facility] Comment on above: Performed By: #### L AB347 ####Assistant Grocery: NED PAK ([phone])[facility] ([facility])[address] [place] [address] NITRITE PRESENCE IN URINE Negative Normal Negative [facility] Comment on above: Performed By: #### L AB347 ####Assistant Grocery: NED PAK ([phone])[facility] ([facility])[address] [place] [address] pH (U) 7.0 [pH] Normal 5.0-8.0 [facility] Comment on above: Performed By: #### L AB347 ####Assistant Grocery: NED PAK ([id number])[facility] ([facility])[address] [place] [address] Protein (U) [Mass/Vol] 30 mg/dL Abnormal Negative [facility] Comment on above: Performed By: #### L AB347 ####Assistant Grocery: NED PAK ([id number])[facility] ([facility])[address] [place] [address] RBC (#/HPF) IN URINE SEDIMENT 3-5 Abnormal 0-2 [facility] Comment on above: Performed By: #### L AB347 ####Assistant Grocery: NED PAK ([phone])[facility] ([facility])[address] [place] [address] Specific gravity (U) [Rel density] 1.020 Normal 1.005-1.03 0 [facility] Comment on above: Performed By: #### L AB347 ####Assistant Grocery: NED PAK ([phone])[facility] ([facility])[address] [place] [address] SQUAMOUS EPITHELIAL CELLS (#/HPF) IN URINE SEDIMENT Negative Normal 3-5 [facility] Comment on above: Performed By: #### L AB347 ####Assistant Grocery: NED PAK ([id number])[facility] ([facility])[address] [place] [address] UROBILINOGEN (MG/DL) IN URINE Normal Normal Normal (0-1) [facility] Comment on above: Performed By: #### L AB347 ####Assistant Grocery: NED PAK ([phone])[facility] ([facility])[address] [place] [address] WBC (LEUKOCYTE) (#/HPF) IN URINE SEDIMENT 26-50 Abnormal 0-5 [facility] Comment on above: Performed By: #### L AB347 ####Assistant Grocery: NED PAK ([phone])[facility] ([facility])[address] [place] [address] MANUAL DIFFERENTIALon 2022 BAND NEUTROPHILS (10*3/UL) BLOOD MANUAL COUNT 0.5 10*3/uL High <=0.0 [facility] Comment on above: Performed By: #### L XK9997, [id number] ####Assistant Grocery: NED PAK ([phone])[facility] ([facility])[address] [place] [address] [place] BAND NEUTROPHILS TOTAL PER COUNTED LEUKOCYTES BY MANUAL COUNT 3 Normal [facility] Comment on above: Performed By: #### L ZQ5826, [id number] ####Assistant Grocery: NED PAK ([id number])[facility] ([facility])[address] [place] [address] CELLS COUNTED TOTAL (#) IN BLOOD 100 Normal [facility] Comment on above: Performed By: #### L UN1466, DZY0766 ####Assistant Grocery: NED PAK ([id number])[facility] ([facility])[address] [place] [address] DIFFERENTIAL METHOD Manual differential performed Normal [facility] Comment on above: Performed By: #### L LU3486, HPE7395 ####Assistant Grocery: NED PAK ([phone])[facility] ([facility])[address] [place] [address] [place] EOSINOPHILS (10*3/UL) IN BLOOD BY MANUAL COUNT 0.2 10*3/uL Normal 0.0-0.5 [facility] Comment on above: Performed By: #### L RS8006, RMY2556 ####Assistant Grocery: NED PAK ([phone])[facility] ([facility])[address] [place] [address] [place] EOSINOPHILS TOTAL PER COUNTED LEUKOCYTES BY MANUAL COUNT 1 Normal 0-1 [facility] Comment on above: Performed By: #### L RF3985, VGK5941 ####Assistant Grocery: NED PAK ([phone])[facility] ([facility])[address] [place] [address] [place] EOSINOPHILS/100 LEUKOCYTES IN BLOOD BY MANUAL COUNT 1 % Normal 1-6 [facility] Comment on above: Performed By: #### L [id number], [id number] ####Assistant [employer]: NED PAK ([phone])[facility] ([facility])[address] [place] [address] [place] HYPERSEGMENTED NEUTROPHILS IN BLOOD BY LIGHT MICROSCOPY (PRESENT) Present Abnormal (none) [facility] Comment on above: Performed By: #### L [id number], [id number] ####Assistant [employer]: NED PAK ([phone])[facility])[address] [place] [address] [place] LEUKOCYTES (10*3/UL) NUCLEATED ERYTHROCYTE ADJUST 17.0 10*3/uL High 3.6-10.7 [facility] Comment on above: Performed By: #### L [id number], [id number] ####Assistant [employer]: NED PAK ([phone])[facility])[address] [place] [address] [place] LYMPHOCYTES (10*3/UL) IN BLOOD BY MANUAL COUNT 3.7 10*3/uL Normal 1.0-4.3 [facility] Comment on above: Performed By: #### L [id number], [id number] ####Assistant [employer]: NED PAK ([phone])[facility])[address] [place] [address] LYMPHOCYTES TOTAL PER COUNTED LEUKOCYTES BY MANUAL COUNT 22 Normal [facility] Comment on above: Performed By: #### Tameka [id number], [id number] ####Assistant [employer]: NED PAK ([phone])[facility])[address] [place] [address] [place] LYMPHOCYTES/100 LEUKOCYTES IN BLOOD BY MANUAL COUNT 22 % Normal 20-40 [facility] Comment on above: Performed By: #### Tameka [id number], [id number] ####Assistant [employer]: NED APK ([phone])[facility])[address] [place] [address] [place] METAMYELOCYTES (10*3/UL) IN BLOOD BY MANUAL COUNT 0.3 10*3/uL High <=0.0 [facility] Comment on above: Performed By: #### L [id number], [id number] ####Assistant [employer]: NED PAK ([phone])[facility])[address] [place] [address] [place] METAMYELOCYTES TOTAL PER COUNTED LEUKOCYTES BY MANUAL COUNT 2 Normal [facility] Comment on above: Performed By: #### L [id number], [id number] ####Assistant Grocery: NED PAK ([phone])[facility])[address] [place] [address] [place] METAMYELOCYTES/100 LEUKOCYTES IN BLOOD BY MANUAL COUNT 2 % High <=0 [facility] Comment on above: Performed By: #### L [id number], [id number] ####Assistant Grocery: NED PAK ([phone])[facility])[address] [place] [address] [place] MONOCYTES (10*3/UL) IN BLOOD BY MANUAL COUNT 0.3 10*3/uL Normal 0.0-0.8 [facility] Comment on above: Performed By: #### L [id number], [id number] ####Assistant Grocery: NED PAK ([phone])[facility])[address] [place] [address] [place] MONOCYTES TOTAL PER COUNTED LEUKOCYTES BY MANUAL COUNT 2 Normal [facility] Comment on above: Performed By: #### L [id number], [id number] ####Assistant Grocery: NED PAK ([phone])[facility])[address] [place] [address] [place] MONOCYTES/100 LEUKOCYTES IN BLOOD BY MANUAL COUNT 2 % Normal 2-10 [facility] Comment on above: Performed By: #### L [id number], [id number] ####Assistant Grocery: NED PAK ([phone])[facility])[address] [place] [address] [place] NEUTROPHILS (SEGS+BANDS) (10*3/UL) BY MANUAL COUNT 12.4 10*3/uL High 1.8-7.0 [facility] Comment on above: Performed By: #### L [id number], [id number] ####Assistant Grocery: NED PAK ([phone])[facility])[address] [place] [address] [place] NEUTROPHILS BAND FORM/100 LEUKOCYTES IN BLOOD BY MANUAL COUNT 3 % High <=0 [facility] Comment on above: Performed By: #### L [id number], [id number] ####Assistant Grocery: NED PAK ([id number])[facility])[address] [place] [address] [place] NEUTROPHILS TOTAL PER COUNTED LEUKOCYTES BY MANUAL COUNT 70 Normal [facility] Comment on above: Performed By: #### L [id number], [id number] ####Assistant Grocery: NED PAK ([phone])[facility])[address] [place] [address] [place] OVALOCYTES PRESENCE IN BLOOD BY LIGHT MICROSCOPY Slight Abnormal (none) [facility] Comment on above: Performed By: #### L [id number], [id number] ####Assistant Grocery: NED PAK ([phone])[facility])[address] [place] [address] PLATELET MORPHOLOGY IN BLOOD Normal Normal [facility] Comment on above: Performed By: #### L [id number], [id number] ####Assistant Grocery: NED PAK ([phone])[facility])[address] [place] [address] [place] POIKILOCYTOSIS (PRESENCE) IN BLOOD BY LIGHT MICROSCOPY Slight Abnormal (none) [facility] Comment on above: Performed By: #### L [id number], [id number] ####Assistant Grocery: NED PAK ([phone])[facility])[address] [place] [address] [place] POLYCHROMASIA IN BLOOD BY LIGHT MICROSCOPY Rare Abnormal (none) [facility] Comment on above: Performed By: #### L [id number], [id number] ####Assistant Grocery: NED PAK ([id number])[facility])[address] [place] [address] [place] SEGEMENTED NEUTROPHILS/100 LEUKOCYTES BY MANUAL COUNT 70 % Normal 40-80 [facility] Comment on above: Performed By: #### L [id number], [id number] ####Assistant Grocery: NDE PAK ([id number])[facility])[address] [place] [address] [place] SEGMENTED NEUTROPHILS (10*3/UL)IN BLOOD BY MANUAL COUNT 12.4 10*3/uL High 1.8-7.0 [facility] Comment on above: Performed By: #### L [id number], [id number] ####Assistant Grocery: NED PAK ([phone])[facility])[address] [place] [address] VACUOLATED NEUTROPHILS PRESENCE IN BLOOD BY LIGHT MICROSCOPY (PRESENT) Present Abnormal (none) [facility] Comment on above: Performed By: #### L [id number], [id number] ####Assistant Grocery: NED PAK ([phone])[address] PROCALCITONIN TESTon 023 PROCALCITONIN 0.14 ng/mL High 0.00-0.09 [facility] Comment on above: Result Comment: ORDE R COMMENTS:PCT <0.50 = Low risk of severe sepsis and/or septic shock.PCT >2.00 = High risk of severe sepsis and/or septic shock. Performed By: #### L [id number] ####Assistant Grocery: NED PAK ([phone])[address] Progress Noteon 12-23-2022 Progress Note Normal [facility] Progress [facility] Normal [facility] Progress [facility] Normal [facility] Progress Note Normal [facility] Progress Note Vancomycin therapy h as been discontinued by Dr. Howard on 12/23. Thank you for the consult. Pharmacy signing off for vancomycin dosing. Kaley Lane [facility], PharmD Date: 12/23/22 Time: 7:42 AM Normal [facility] Progress Note Normal [facility] URINE CULTUREon 12-23-2022 Bacteria identified Cx Nom (U) Normal [facility] Comment on above: Performed By: #### L [id number] ####Assistant Grocery: NED PAK ([phone])[address] VANCOMYCIN, RANDOMon 023 VANCOMYCIN 5.3 ug/mL Low 15.0-20.0 [facility] Comment on above: Order Comment: Alphonse gonzalez draw random vancomycin level @ 0400 on 12-23-22. Thank you. Performed By: #### L AB40, LAB15 ####Assistant Grocery: NED PAK ([phone])[facility])[address] [place] [address] XR CHEST 1 VIEWon 12-23-2022 XR CHEST 1 VIEW Normal [facility] ANTI-XA LEVEL, LMWHon 2022 ANTI-XA TREATMENT INDICATION Prophylactic Normal [facility] Comment on above: Performed By: #### L [id number] ####Assistant Grocery: NED PAK ([phone])[facility])[address] [place] [address] ANTI-XA, LMWH/UFH 0.4 IU/mL Normal 0.2-0.5 [Prophylac tic] [facility] Comment on above: Performed By: #### L AB510 ####Assistant Grocery: NED PAK ([id number])[facility])[address] [place] [address] APTTon 12-22-2022 aPTT Coag (Bld) [Time] 25.2 s Normal 20.0-30.5 [facility] Comment on above: Result Comment: SANDRA Baker COMMENTS:NOTE: The therapeutic time for Heparin anticoagulation, based on Xa activity inhibition, is an APTT of 46-80 seconds. Performed By: #### L AB325 ####Assistant Grocery: NED PAK ([id number])[facility])[address] [place] [address] BASIC METABOLIC PANELon 10-0 Anion gap [Moles/Vol] 7 mmol/L Normal 3-13 [facility] Comment on above: Performed By: #### L AB40, LAB15 ####Assistant Grocery: NED PAK ([phone])[facility])[address] [place] [address] Calcium [Mass/Vol] 8.3 mg/dL Low 8.4-10.4 [facility] Comment on above: Performed By: #### L AB40, LAB15 ####Assistant Grocery: NED PAK ([phone])[facility])[address] [place] [address] Chloride [Moles/Vol] 110 mmol/L High 98-107 [facility] Comment on above: Performed By: #### L AB40, LAB15 ####Assistant Grocery: NED PAK ([phone])[facility])[address] [place] [address] CO2 [Moles/Vol] 27 mmol/L Normal 22-30 [facility] Comment on above: Performed By: #### L AB40, LAB15 ####Assistant Grocery: NED PAK ([phone])[facility])[address] [place] [address] Creatinine [Mass/Vol] 0.50 mg/dL Low 0.52-1.04 [facility] Comment on above: Performed By: #### L AB40, LAB15 ####Assistant Grocery: NED PAK ([phone])[facility])[address] [place] [address] GLOMERULAR FILTRATION RATE ML/MIN/1.73 SQ M.PREDICTED 83.8 mL/min/1.73m*2 Normal >60.0 [facility] Comment on above: Result Comment: Calc ulation based on the Chronic Kidney Disease Epidemiology Collaboration (CKD-EPI) equation refit without adjustment for race Performed By: #### L AB40, LAB15 ####Assistant Grocery: NED PAK ([phone])[facility])[address] [place] [address] [place] Glucose [Mass/Vol] 136 mg/dL High 70-100 [facility] Comment on above: Performed By: #### L AB40, LAB15 ####Assistant Grocery: NED PAK ([phone])[facility])[address] [place] [address] [place] Potassium [Moles/Vol] 3.8 mmol/L Normal 3.5-5.1 [facility] Comment on above: Performed By: #### L AB40, LAB15 ####Assistant Grocery: NED PAK ([phone])[facility])[address] [place] [address] Sodium [Moles/Vol] 143 mmol/L Normal 135-145 [facility] Comment on above: Performed By: #### L AB40, LAB15 ####Assistant Grocery: NED PAK ([phone])[facility])[address] [place] [address] Urea nitrogen [Mass/Vol] 21 mg/dL High 7-17 [facility] Comment on above: Performed By: #### L AB40, LAB15 ####Assistant Grocery: NED PAK ([phone])[facility])[address] [place] [address] CARECOORDon 12-22-2022 CARECOORD Normal [facility] CARECOORD Normal [facility] CBC WITH AUTO DIFFERENTIALon 12-22-2022 Erythrocyte distribution width (RBC) [Ratio] 13.9 % Normal 11.5-14.5 [facility] Comment on above: Performed By: #### L [id number], [id number] ####Assistant Grocery: NED PAK ([id number])[facility])[address] [place] [address] ERYTHROCYTE MEAN CORPUSCULAR HEMOGLOBIN CONCENTRATION (G/DL) BY AUTOMATED 34.2 % Normal 32.0-36.0 [facility] Comment on above: Performed By: #### L [id number], [id number] ####Assistant Grocery: NED PAK ([phone])[facility])[address] [place] [address] Hematocrit (Bld) [Volume fraction] 24.0 % Low 35.0-47.0 [facility] Comment on above: Performed By: #### L GD0951, [id number] ####Assistant Grocery: NED PAK ([phone])[facility])[address] [place] [address] Hemoglobin (Bld) [Mass/Vol] 8.2 g/dL Low 11.7-16.0 [facility] Comment on above: Performed By: #### L XC0914, [id number] ####Assistant Grocery: NED PAK ([phone])[facility])[address] [place] [address] MCH (RBC) [Entitic mass] 29.7 pg Normal 26.0-34.0 [facility] Comment on above: Performed By: #### L CZ7976, [id number] ####Assistant Grocery: NED PAK ([phone])[facility])[address] [place] [address] MCV (RBC) [Entitic vol] 87.1 fL Normal 80.0-98.0 [facility] Comment on above: Performed By: #### Tameka US0797, PQL9389 ####Assistant Grocery: NED PAK ([id number])[facility])[address] [place] [address] NRBC (PER 100 WBCS) BY AUTOMATED COUNT 0.1 /100 WBCs Normal 0.0-2.0 [facility] Comment on above: Performed By: #### L DR5732, HAL3703 ####Assistant Grocery: NED PAK ([phone])[facility])[address] [place] [address] Platelet mean volume (Bld) [Entitic vol] 7.6 fL Normal 7.4-12.4 [facility] Comment on above: Performed By: #### L AZ7957, AVB2443 ####Assistant Grocery: NED PAK ([phone])[facility])[address] [place] [address] PLATELETS (10*3/UL) IN BLOOD AUTOMATED COUNT 244 10*3/uL Normal 140-440 [facility] Comment on above: Performed By: #### L VZ6068, ABH2480 ####Assistant Grocery: NED PAK ([id number])[facility])[address] [place] [address] RBC (Bld) [#/Vol] 2.76 10*6/uL Low 3.8-5.20 [facility] Comment on above: Performed By: #### L GV5981, [id number] ####Assistant Grocery: NED PAK ([id number])[facility])[address] [place] [address] WBC (Bld) [#/Vol] 15.6 10*3/uL High 3.6-10.7 [facility] Comment on above: Performed By: #### L TE7231, [id number] ####Assistant Grocery: NED PAK ([id number])[facility])[address] [place] [address] COMPLETE URINALYSISon 2022 BACTERIA (#/HPF) IN URINE Few Abnormal Negative [facility] Comment on above: Performed By: #### L AB347 ####Assistant Grocery: NED PAK ([id number])[facility])[address] [place] [address] BILIRUBIN, TOTAL PRESENCE IN URINE Negative Normal Negative [facility] Comment on above: Performed By: #### L AB347 ####Assistant Grocery: NED PAK ([phone])[facility])[address] [place] [address] Clarity (U) Clear Normal Clear [facility] Comment on above: Performed By: #### L AB347 ####Assistant Grocery: NED PAK ([phone])[facility])[address] [place] [address] Color (U) Light Yellow Normal Lt. Yellow [facility] Comment on above: Performed By: #### L AB347 ####Assistant Grocery: NED PAK ([phone])[facility])[address] [place] [address] GLUCOSE (MG/DL) IN URINE Normal Normal Normal (<70) [facility] Comment on above: Performed By: #### L AB347 ####Assistant Grocery: NED PAK ([phone])[facility])[address] [place] [address] HEMOGLOBIN PRESENCE IN URINE 0.1 mg/dL Abnormal Negative [facility] Comment on above: Performed By: #### L AB347 ####Assistant Grocery: NED PAK ([id number])[facility])[address] [place] [address] HYALINE CASTS (#/LPF) IN URINE SEDIMENT BY MICROSCOPY Negative Normal Negative [facility] Comment on above: Performed By: #### L AB347 ####Assistant Grocery: NED PAK ([phone])[facility])[address] [place] [address] Ketones Ql (U) Negative Normal Negative [facility] Comment on above: Performed By: #### L AB347 ####Assistant Grocery: NED PAK ([id number])[facility])[address] [place] [address] LEUKOCYTE ESTERASE PRESENCE IN URINE BY TEST STRIP Negative Normal Negative [facility] Comment on above: Performed By: #### L AB347 ####Assistant Grocery: NED PAK ([phone])[facility])[address] [place] [address] NITRITE PRESENCE IN URINE Negative Normal Negative [facility] Comment on above: Performed By: #### L AB347 ####Assistant Grocery: NED PAK ([phone])[facility])[address] [place] [address] pH (U) 7.0 [pH] Normal 5.0-8.0 [facility] Comment on above: Performed By: #### L AB347 ####Assistant Grocery: NED PAK ([id number])[facility])[address] [place] [address] Protein (U) [Mass/Vol] 20 mg/dL Abnormal Negative [facility] Comment on above: Performed By: #### L AB347 ####Assistant Grocery: NED PAK ([id number])[facility])[address] [place] [address] RBC (#/HPF) IN URINE SEDIMENT 11-25 Abnormal 0-2 [facility] Comment on above: Performed By: #### L AB347 ####Assistant Grocery: NED PAK ([phone])[facility])[address] [place] [address] Specific gravity (U) [Rel density] 1.016 Normal 1.005-1.03 0 [facility] Comment on above: Performed By: #### L AB347 ####Assistant Grocery: NED PAK ([phone])[facility])[address] [place] [address] SQUAMOUS EPITHELIAL CELLS (#/HPF) IN URINE SEDIMENT Negative Normal 3-5 [facility] Comment on above: Performed By: #### L AB347 ####Assistant Grocery: NED PAK ([phone])[facility])[address] [place] [address] UROBILINOGEN (MG/DL) IN URINE Normal Normal Normal (0-1) [facility] Comment on above: Performed By: #### L AB347 ####Assistant Grocery: NED PAK ([phone])[facility])[address] [place] [address] WBC (LEUKOCYTE) (#/HPF) IN URINE SEDIMENT 6-10 Abnormal 0-5 [facility] Comment on above: Performed By: #### L AB347 ####Assistant Grocery: NED PAK ([phone])[facility])[address] [place] [address] MANUAL DIFFERENTIALon 2022 CELLS COUNTED TOTAL (#) IN BLOOD 100 Normal [facility] Comment on above: Performed By: #### L [id number], [id number] ####Assistant Grocery: NED PAK ([id number])[facility] [place] [address] [place] DIFFERENTIAL METHOD Manual differential performed Normal [facility] Comment on above: Performed By: #### L [id number], [id number] ####Assistant Grocery: NED PAK ([id number])[facility])[address] [place] [address] LEUKOCYTES (10*3/UL) NUCLEATED ERYTHROCYTE ADJUST 15.6 10*3/uL High 3.6-10.7 [facility] Comment on above: Performed By: #### L [id number], EGU2470 ####Assistant Grocery: NED PAK ([phone])[facility])[address] [place] [address] LYMPHOCYTES (10*3/UL) IN BLOOD BY MANUAL COUNT 1.7 10*3/uL Normal 1.0-4.3 [facility] Comment on above: Performed By: #### L AT2752, [id number] ####Assistant Grocery: NED PAK ([phone])[facility] [place] [address] LYMPHOCYTES TOTAL PER COUNTED LEUKOCYTES BY MANUAL COUNT 11 Normal [facility] Comment on above: Performed By: #### L [id number], AXH7288 ####Assistant Grocery: NED PAK ([phone])[facility])[address] [place] [address] [place] LYMPHOCYTES/100 LEUKOCYTES IN BLOOD BY MANUAL COUNT 11 % Low 20-40 [facility] Comment on above: Performed By: #### L FU1154, [id number] ####Assistant Grocery: NED PAK ([phone])[facility])[address] [place] [address] [place] MONOCYTES (10*3/UL) IN BLOOD BY MANUAL COUNT 0.3 10*3/uL Normal 0.0-0.8 [facility] Comment on above: Performed By: #### L [id number], [id number] ####Assistant Grocery: NED PAK ([id number])[facility])[address] [place] [address] [place] MONOCYTES TOTAL PER COUNTED LEUKOCYTES BY MANUAL COUNT 2 Normal [facility] Comment on above: Performed By: #### L KG9382, [id number] ####Assistant Grocery: NED PAK ([phone])[facility])[address] [place] [address] [place] MONOCYTES/100 LEUKOCYTES IN BLOOD BY MANUAL COUNT 2 % Normal 2-10 [facility] Comment on above: Performed By: #### L NA9901, [id number] ####Assistant Grocery: NED PAK ([phone])[facility])[address] [place] [address] [place] MYELOCYTES (10*3/UL) IN BLOOD BY MANUAL COUNT 0.2 10*3/uL High <=0.0 [facility] Comment on above: Performed By: #### L [id number], [id number] ####Assistant Grocery: NED PAK ([phone])[facility])[address] [place] [address] [place] MYELOCYTES COUNTED BY MANUAL COUNT 1 Normal [facility] Comment on above: Performed By: #### L WK0949, [id number] ####Assistant Grocery: NED PAK ([phone])[facility])[address] [place] [address] [place] MYELOCYTES/100 LEUKOCYTES IN BLOOD BY MANUAL COUNT 1 % High <=0 [facility] Comment on above: Performed By: #### L QL8623, LBT7045 ####Assistant Grocery: NED PAK ([phone])[facility])[address] [place] [address] [place] NEUTROPHILS (SEGS+BANDS) (10*3/UL) BY MANUAL COUNT 13.4 10*3/uL High 1.8-7.0 [facility] Comment on above: Performed By: #### L [id number], [id number] ####Assistant Grocery: NED PAK ([phone])[facility])[address] [place] [address] [place] NEUTROPHILS TOTAL PER COUNTED LEUKOCYTES BY MANUAL COUNT 86 Normal [facility] Comment on above: Performed By: #### L TE3464, OIC7238 ####Assistant Grocery: NED PAK ([phone])[facility])[address] [place] [address] [place] NUCLEATED ERYTHROCYTES/100 LEUKOCYTES IN BLOOD BY MANUAL COUNT 2 % Normal [facility] Comment on above: Performed By: #### L [id number], [id number] ####Assistant Grocery: NED PAK ([id number])[facility])[address] [place] [address] OVALOCYTES PRESENCE IN BLOOD BY LIGHT MICROSCOPY Slight Abnormal (none) [facility] Comment on above: Performed By: #### L [id number], [id number] ####Assistant Grocery: NED PAK ([phone])[facility])[address] [place] [address] PLATELET MORPHOLOGY IN BLOOD Normal Normal [facility] Comment on above: Performed By: #### L UZ1572, [id number] ####Assistant Grocery: NED PAK ([id number])[facility])[address] [place] [address] [place] POIKILOCYTOSIS (PRESENCE) IN BLOOD BY LIGHT MICROSCOPY Slight Abnormal (none) [facility] Comment on above: Performed By: #### L ZB9668, [id number] ####Assistant Grocery: NED PAK ([phone])[facility])[address] [place] [address] [place] POLYCHROMASIA IN BLOOD BY LIGHT MICROSCOPY Slight Abnormal (none) [facility] Comment on above: Performed By: #### L YB9042, [id number] ####Assistant Grocery: NED PAK ([phone])[facility])[address] [place] [address] [place] SEGEMENTED NEUTROPHILS/100 LEUKOCYTES BY MANUAL COUNT 86 % High 40-80 [facility] Comment on above: Performed By: #### L HZ4793, AST0804 ####Assistant Grocery: NED PAK ([phone])[facility])[address] [place] [address] VACUOLATED NEUTROPHILS PRESENCE IN BLOOD BY LIGHT MICROSCOPY (PRESENT) Present Abnormal (none) [facility] Comment on above: Performed By: #### L [id number], [id number] ####Assistant Grocery: NED PAK ([phone])[facility])[address] [place] [address] MRSA BY PCRon 12-22-2022 MRSA BY PCR Normal [facility] Comment on above: Performed By: #### L [id number] ####Assistant Grocery: NED PAK ([phone])[facility])[address] [place] [address] Progress Noteon 12-22-2022 Progress Note Normal [facility] [...] RANDOMon 023 VANCOMYCIN 8.2 ug/mL Low 15.0-20.0 [facility] Comment on above: Order Comment: Alphonse gonzalez draw random vancomycin level with AM labs. Please ensure level is >2 hours after the end of the most recent vancomycin infusion. Do not draw while vanc is infusing. Thanks! Performed By: #### L AB40, LAB15 ####Assistant Grocery: NED PAK ([phone])[facility] [place] [address] XR ABDOMEN 1 VIEWon 12-23-19 23 XR ABDOMEN 1 VIEW Normal [facility] APTTon 12-21-2022 aPTT Coag (Bld) [Time] 27.8 s Normal 20.0-30.5 [facility] Comment on above: Result Comment: BASILE R COMMENTS:NOTE: The therapeutic time for Heparin anticoagulation, based on Xa activity inhibition, is an APTT of 46-80 seconds. Performed By: #### L AB325 ####[employer]istant [employer]: NED PAK ([id number])[facility] ([facility])[address] [place] [address] BASIC METABOLIC PANELon 10-0 -2022 Anion gap [Moles/Vol] 5 mmol/L Normal 3-13 [facility] Comment on above: Performed By: #### L AB15 ####Assistant [employer]: NED PAK ([id number])[facility] ([facility])[address] [place] [address] Calcium [Mass/Vol] 8.2 mg/dL Low 8.4-10.4 [facility] Comment on above: Performed By: #### L AB15 ####Assistant [employer]: NED PAK ([id number])[facility])[address] [place] [address] Chloride [Moles/Vol] 114 mmol/L High 98-107 [facility] Comment on above: Performed By: #### L AB15 ####Assistant [employer]: NED PAK ([id number])[facility] ([facility])[address] [place] [address] CO2 [Moles/Vol] 25 mmol/L Normal 22-30 [facility] Comment on above: Performed By: #### L AB15 ####Assistant [employer]: NED PAK ([phone])[facility])[address] [place] [address] Creatinine [Mass/Vol] 0.64 mg/dL Normal 0.52-1.04 [facility] Comment on above: Performed By: #### L AB15 ####[employer]istant [employer]: NED PAK ([phone])[facility])[address] [place] [address] [place] GLOMERULAR FILTRATION RATE ML/MIN/1.73 SQ M.PREDICTED 79.0 mL/min/1.73m*2 Normal >60.0 [facility] Comment on above: Result Comment: Calc ulation based on the Chronic Kidney Disease Epidemiology Collaboration (CKD-EPI) equation refit without adjustment for race Performed By: #### L AB15 ####Assistant Grocery: NED PAK ([phone])[facility] ([facility])[address] [place] [address] Glucose [Mass/Vol] 169 mg/dL High 70-100 [facility] Comment on above: Performed By: #### L AB15 ####Assistant Grocery: NED PAK ([id number])[facility] ([facility])[address] [place] [address] Potassium [Moles/Vol] 3.8 mmol/L Normal 3.5-5.1 [facility] Comment on above: Performed By: #### L AB15 ####Assistant Grocery: NED PAK ([phone])[facility] ([facility])[address] [place] [address] Sodium [Moles/Vol] 144 mmol/L Normal 135-145 [facility] Comment on above: Performed By: #### L AB15 ####Assistant Grocery: NED PAK ([id number])[facility] ([facility])[address] [place] [address] Urea nitrogen [Mass/Vol] 23 mg/dL High 7-17 [facility] Comment on above: Performed By: #### L AB15 ####Assistant Grocery: NED PAK ([id number])[facility] ([facility])[address] [place] [address] BLOOD CULTUREon 12-21-2022 Bacteria identified Cx Nom (Bld) Normal [facility] Comment on above: Performed By: #### L AB462 ####Assistant Grocery: NED PAK ([id number])[facility] ([facility])[address] [place] [address] Bacteria identified Cx Nom (Bld) Normal [facility] Comment on above: Performed By: #### L AB462 ####Assistant Grocery: NED PAK ([phone])[facility] ([facility])[address] [place] [address] CARECOORDon 12-21-2022 CARECOORD Normal [facility] CBC (HEMOGRAM)on 12-21-2022 Erythrocyte distribution width (RBC) [Ratio] 14.3 % Normal 11.5-14.5 [facility] Comment on above: Performed By: #### L AB294 ####Assistant Grocery: NED PAK ([id number])[facility])[address] [place] [address] ERYTHROCYTE MEAN CORPUSCULAR HEMOGLOBIN CONCENTRATION (G/DL) BY AUTOMATED 33.1 % Normal 32.0-36.0 [facility] Comment on above: Performed By: #### L AB294 ####Assistant Grocery: NED PAK ([phone])[facility])[address] [place] [address] Hematocrit (Bld) [Volume fraction] 26.4 % Low 35.0-47.0 [facility] Comment on above: Performed By: #### L AB294 ####Assistant Grocery: NED PAK ([id number])[facility])[address] [place] [address] Hemoglobin (Bld) [Mass/Vol] 8.8 g/dL Low 11.7-16.0 [facility] Comment on above: Performed By: #### L AB294 ####Assistant Grocery: NED PAK ([phone])[facility])[address] [place] [address] MCH (RBC) [Entitic mass] 29.3 pg Normal 26.0-34.0 [facility] Comment on above: Performed By: #### L AB294 ####Assistant Grocery: NED PAK ([phone])[facility])[address] [place] [address] MCV (RBC) [Entitic vol] 88.5 fL Normal 80.0-98.0 [facility] Comment on above: Performed By: #### L AB294 ####Assistant Grocery: NED PAK ([id number])[facility])[address] [place] [address] Platelet mean volume (Bld) [Entitic vol] 7.5 fL Normal 7.4-12.4 [facility] Comment on above: Performed By: #### L AB294 ####Assistant Grocery: NDE PAK ([phone])[facility])[address] [place] [address] PLATELETS (10*3/UL) IN BLOOD AUTOMATED COUNT 229 10*3/uL Normal 140-440 [facility] Comment on above: Performed By: #### L AB294 ####Assistant Grocery: NED PAK ([phone])[facility])[address] [place] [address] RBC (Bld) [#/Vol] 2.99 10*6/uL Low 3.8-5.20 [facility] Comment on above: Performed By: #### L AB294 ####Assistant Grocery: NED PAK ([phone])[facility])[address] [place] [address] WBC (Bld) [#/Vol] 13.7 10*3/uL High 3.6-10.7 [facility] Comment on above: Performed By: #### L AB294 ####Assistant Grocery: NED PAK ([phone])[facility])[address] [place] [address] CBC WITH AUTO DIFFERENTIALon 12-21-2022 Erythrocyte distribution width (RBC) [Ratio] 14.5 % Normal 11.5-14.5 [facility] Comment on above: Performed By: #### L [id number], [id number] ####Assistant Grocery: NED PAK ([phone])[facility])[address] [place] [address] ERYTHROCYTE MEAN CORPUSCULAR HEMOGLOBIN CONCENTRATION (G/DL) BY AUTOMATED 34.3 % Normal 32.0-36.0 [facility] Comment on above: Performed By: #### L [id number], [id number] ####Assistant Grocery: NED PAK ([phone])[facility])[address] [place] [address] Hematocrit (Bld) [Volume fraction] 21.6 % Low 35.0-47.0 [facility] Comment on above: Performed By: #### L [id number], [id number] ####Assistant Grocery: NED PAK ([phone])[facility])[address] [place] [address] Hemoglobin (Bld) [Mass/Vol] 7.4 g/dL Low 11.7-16.0 [facility] Comment on above: Performed By: #### L XI0470, [id number] ####Assistant Grocery: NED PAK ([id number])[facility])[address] [place] [address] MCH (RBC) [Entitic mass] 30.0 pg Normal 26.0-34.0 [facility] Comment on above: Performed By: #### L VC4174, [id number] ####Assistant Grocery: NED PAK ([id number])[address] MCV (RBC) [Entitic vol] 87.4 fL Normal 80.0-98.0 [facility] Comment on above: Performed By: #### Tameka FJ3019, [id number] ####Assistant Grocery: NED PAK ([id number])[address] NRBC (PER 100 WBCS) BY AUTOMATED COUNT 0.1 /100 WBCs Normal 0.0-2.0 [facility] Comment on above: Performed By: #### L GZ1674, [id number] ####Assistant Grocery: NED PAK ([id number])[address] Platelet mean volume (Bld) [Entitic vol] 7.7 fL Normal 7.4-12.4 [facility] Comment on above: Performed By: #### L [id number], [id number] ####Assistant Grocery: NED PAK ([id number])[address] PLATELETS (10*3/UL) IN BLOOD AUTOMATED COUNT 164 10*3/uL Normal 140-440 [facility] Comment on above: Performed By: #### L CN7628, [id number] ####Assistant Grocery: NED PAK ([id number])[facility] ([facility])[address] [place] [address] RBC (Bld) [#/Vol] 2.47 10*6/uL Low 3.8-5.20 [facility] Comment on above: Performed By: #### L [id number], [id number] ####Assistant Grocery: NED PAK ([id number])[facility] ([facility])[address] [place] [address] WBC (Bld) [#/Vol] 10.6 10*3/uL Normal 3.6-10.7 [facility] Comment on above: Performed By: #### L [id number], [id number] ####Assistant Grocery: NED PAK ([phone])[facility] ([facility])[address] [place] [address] COMPLETE URINALYSISon 2022 BACTERIA (#/HPF) IN URINE Few Abnormal Negative [facility] Comment on above: Performed By: #### L AB347 ####Assistant Grocery: NED PAK ([id number])[facility] ([facility])[address] [place] [address] BILIRUBIN, TOTAL PRESENCE IN URINE Negative Normal Negative [facility] Comment on above: Performed By: #### L AB347 ####Assistant Grocery: NED PAK ([id number])[facility] ([facility])[address] [place] [address] Clarity (U) Clear Normal Clear [facility] Comment on above: Performed By: #### L AB347 ####Assistant Grocery: NED PAK ([id number])[facility] ([facility])[address] [place] [address] Color (U) Light Yellow Normal Lt. Yellow [facility] Comment on above: Performed By: #### L AB347 ####Assistant Grocery: NED PAK ([id number])[facility] [place] [address] GLUCOSE (MG/DL) IN URINE Normal Normal Normal (<70) [facility] Comment on above: Performed By: #### L AB347 ####Assistant Grocery: NED PAK ([phone])[facility] [place] [address] HEMOGLOBIN PRESENCE IN URINE 0.06 mg/dL Abnormal Negative [facility] Comment on above: Performed By: #### L AB347 ####Assistant Grocery: NED PAK ([id number])[facility] ([facility])[address] [place] [address] HYALINE CASTS (#/LPF) IN URINE SEDIMENT BY MICROSCOPY Negative Normal Negative [facility] Comment on above: Performed By: #### L AB347 ####Assistant Grocery: NED PAK ([phone])[facility] [place] [address] Ketones Ql (U) Negative Normal Negative [facility] Comment on above: Performed By: #### L AB347 ####Assistant Grocery: NED PAK ([id number])[facility] ([facility])[address] [place] [address] LEUKOCYTE ESTERASE PRESENCE IN URINE BY TEST STRIP Negative Normal Negative [facility] Comment on above: Performed By: #### L AB347 ####Assistant Grocery: NED PAK ([id number])[facility] [place] [address] MUCUS (#/LPF) IN URINE SEDIMENT Few Normal Negative [facility] Comment on above: Performed By: #### L AB347 ####Assistant Grocery: NED PAK ([phone])[facility] [place] [address] NITRITE PRESENCE IN URINE Negative Normal Negative [facility] Comment on above: Performed By: #### L AB347 ####Assistant Grocery: NED PAK ([phone])[facility] ([facility])[address] [place] [address] pH (U) 5.5 [pH] Normal 5.0-8.0 [facility] Comment on above: Performed By: #### L AB347 ####Assistant Grocery: NED PAK ([id number])[facility] ([facility])[address] [place] [address] Protein (U) [Mass/Vol] 50 mg/dL Abnormal Negative [facility] Comment on above: Performed By: #### L AB347 ####Assistant Grocery: NED PAK ([id number])[facility] ([facility])[address] [place] [address] RBC (#/HPF) IN URINE SEDIMENT 0-2 Normal 0-2 [facility] Comment on above: Performed By: #### L AB347 ####Assistant Grocery: NED PAK ([id number])[facility] ([facility])[address] [place] [address] Specific gravity (U) [Rel density] 1.026 Normal 1.005-1.03 0 [facility] Comment on above: Performed By: #### L AB347 ####Assistant Grocery: NED PAK ([id number])[facility] ([facility])[address] [place] [address] SQUAMOUS EPITHELIAL CELLS (#/HPF) IN URINE SEDIMENT 0-2 Normal 3-5 [facility] Comment on above: Performed By: #### L AB347 ####Assistant Grocery: NED PAK ([phone])[facility] ([facility])[address] [place] [address] [place] UROBILINOGEN (MG/DL) IN URINE Normal Normal Normal (0-1) [facility] Comment on above: Performed By: #### L AB347 ####Assistant Grocery: NED PAK ([phone])[facility] ([facility])[address] [place] [address] WBC (LEUKOCYTE) (#/HPF) IN URINE SEDIMENT 0-2 Normal 0-5 [facility] Comment on above: Performed By: #### L AB347 ####Assistant Grocery: NED PAK ([phone])[facility])[address] [place] [address] Consulton 12-21-2022 Consult Normal [facility] MANUAL DIFFERENTIALon 2022 BAND NEUTROPHILS (10*3/UL) BLOOD MANUAL COUNT 0.3 10*3/uL High <=0.0 [facility] Comment on above: Performed By: #### L GK4789, [id number] ####Assistant Grocery: NED PAK ([phone])[facility])[address] [place] [address] BAND NEUTROPHILS TOTAL PER COUNTED LEUKOCYTES BY MANUAL COUNT 3 Normal [facility] Comment on above: Performed By: #### L HZ5714, [id number] ####Assistant Grocery: NED PAK ([phone])[facility])[address] [place] [address] CELLS COUNTED TOTAL (#) IN BLOOD 100 Normal [facility] Comment on above: Performed By: #### L [id number], [id number] ####Assistant Grocery: NED PAK ([id number])[facility])[address] [place] [address] DIFFERENTIAL METHOD Manual differential performed Normal [facility] Comment on above: Performed By: #### L UU6718, [id number] ####Assistant Grocery: NED PAK ([phone])[facility])[address] [place] [address] LEUKOCYTES (10*3/UL) NUCLEATED ERYTHROCYTE ADJUST 10.6 10*3/uL Normal 3.6-10.7 [facility] Comment on above: Performed By: #### L KM7360, [id number] ####Assistant Grocery: NED PAK ([phone])[facility])[address] [place] [address] LYMPHOCYTES (10*3/UL) IN BLOOD BY MANUAL COUNT 1.6 10*3/uL Normal 1.0-4.3 [facility] Comment on above: Performed By: #### L TU4543, ESQ4542 ####Assistant Grocery: NED PAK ([id number])[facility])[address] [place] [address] [place] LYMPHOCYTES TOTAL PER COUNTED LEUKOCYTES BY MANUAL COUNT 15 Normal [facility] Comment on above: Performed By: #### L GJ4099, [id number] ####Assistant Grocery: NED PAK ([phone])[facility] ([facility])[address] [place] [address] [place] LYMPHOCYTES/100 LEUKOCYTES IN BLOOD BY MANUAL COUNT 15 % Low 20-40 [facility] Comment on above: Performed By: #### L RA9991, [id number] ####Assistant Grocery: NED PAK ([phone])[facility])[address] [place] [address] [place] METAMYELOCYTES (10*3/UL) IN BLOOD BY MANUAL COUNT 0.1 10*3/uL High <=0.0 [facility] Comment on above: Performed By: #### L MP4748, BQL8722 ####Assistant Grocery: NED PAK ([phone])[facility])[address] [place] [address] [place] METAMYELOCYTES TOTAL PER COUNTED LEUKOCYTES BY MANUAL COUNT 1 Normal [facility] Comment on above: Performed By: #### L YG4222, [id number] ####Assistant Grocery: NED PAK ([phone])[facility])[address] [place] [address] [place] METAMYELOCYTES/100 LEUKOCYTES IN BLOOD BY MANUAL COUNT 1 % High <=0 [facility] Comment on above: Performed By: #### L IV0654, COL7574 ####Assistant Grocery: NED PAK ([phone])[facility])[address] [place] [address] [place] MONOCYTES (10*3/UL) IN BLOOD BY MANUAL COUNT 0.2 10*3/uL Normal 0.0-0.8 [facility] Comment on above: Performed By: #### L SD5918, [id number] ####Assistant Grocery: NED PAK ([phone])[facility])[address] [place] [address] [place] MONOCYTES TOTAL PER COUNTED LEUKOCYTES BY MANUAL COUNT 2 Normal [facility] Comment on above: Performed By: #### L CW1654, HEF0098 ####Assistant Grocery: NED PAK ([phone])[facility])[address] [place] [address] [place] MONOCYTES/100 LEUKOCYTES IN BLOOD BY MANUAL COUNT 2 % Normal 2-10 [facility] Comment on above: Performed By: #### L [id number], [id number] ####Assistant Grocery: NED PAK ([phone])[facility])[address] [place] [address] MYELOCYTES (10*3/UL) IN BLOOD BY MANUAL COUNT 0.1 10*3/uL High <=0.0 [facility] Comment on above: Performed By: #### L KH1737, [id number] ####Assistant Grocery: NED PAK ([phone])[facility])[address] [place] [address] MYELOCYTES COUNTED BY MANUAL COUNT 1 Normal [facility] Comment on above: Performed By: #### L WO5740, [id number] ####Assistant Grocery: NED PAK ([phone])[facility])[address] [place] [address] [place] MYELOCYTES/100 LEUKOCYTES IN BLOOD BY MANUAL COUNT 1 % High <=0 [facility] Comment on above: Performed By: #### L QB0181, [id number] ####Assistant Grocery: NED PAK ([phone])[facility])[address] [place] [address] [place] NEUTROPHILS (SEGS+BANDS) (10*3/UL) BY MANUAL COUNT 8.6 10*3/uL High 1.8-7.0 [facility] Comment on above: Performed By: #### L [id number], [id number] ####Assistant Grocery: NED PAK ([phone])[facility] [place] [address] [place] NEUTROPHILS BAND FORM/100 LEUKOCYTES IN BLOOD BY MANUAL COUNT 3 % High <=0 [facility] Comment on above: Performed By: #### L HG0530, [id number] ####Assistant Grocery: NED PAK ([id number])[facility] ([facility])[address] [place] [address] [place] NEUTROPHILS TOTAL PER COUNTED LEUKOCYTES BY MANUAL COUNT 78 Normal [facility] Comment on above: Performed By: #### L WK0265, [id number] ####Assistant Grocery: NED PAK ([phone])[facility] ([facility])[address] [place] [address] OVALOCYTES PRESENCE IN BLOOD BY LIGHT MICROSCOPY Slight Abnormal (none) [facility] Comment on above: Performed By: #### L UR1006, [id number] ####Assistant Grocery: NED PAK ([phone])[facility] ([facility])[address] [place] [address] [place] PLATELET MORPHOLOGY IN BLOOD Normal Normal [facility] Comment on above: Performed By: #### L [id number], [id number] ####Assistant Grocery: NED PAK ([phone])[facility] ([facility])[address] [place] [address] [place] POIKILOCYTOSIS (PRESENCE) IN BLOOD BY LIGHT MICROSCOPY Slight Abnormal (none) [facility] Comment on above: Performed By: #### L [id number], [id number] ####Assistant Grocery: NED PAK ([phone])[facility] ([facility])[address] [place] [address] [place] POLYCHROMASIA IN BLOOD BY LIGHT MICROSCOPY Slight Abnormal (none) [facility] Comment on above: Performed By: #### L TB3566, [id number] ####Assistant Grocery: NED PAK ([phone])[facility] ([facility])[address] [place] [address] [place] SEGEMENTED NEUTROPHILS/100 LEUKOCYTES BY MANUAL COUNT 78 % Normal 40-80 [facility] Comment on above: Performed By: #### L CJ6299, [id number] ####Assistant Grocery: NED PAK ([phone])[facility])[address] [place] [address] SEGMENTED NEUTROPHILS (10*3/UL)IN BLOOD BY MANUAL COUNT 8.6 10*3/uL High 1.8-7.0 [facility] Comment on above: Performed By: #### L [id number], [id number] ####Assistant Grocery: NED PAK ([phone])[facility])[address] [place] [address] VACUOLATED NEUTROPHILS PRESENCE IN BLOOD BY LIGHT MICROSCOPY (PRESENT) Present Abnormal (none) [facility] [employer] [employer] [facility] Comment on above: Performed By: #### L [id number], IBU3988 ####Assistant Grocery: NED PAK ([phone])[address] No Panel Informationon 12-21 Status Transfused [facility] PLASMA STATUSon 12-21-2022 Blood Product Code [id number] [facility] Blood Product Description FFP [facility] Blood product unit Nom (BPU) [ID] [id number] [facility] Blood Product Unit Type 6200 [facility] Comment on above: A Pos PROCALCITONIN TESTon 023 PROCALCITONIN 0.18 ng/mL High 0.00-0.09 [facility] [employer] [facility] Comment on above: Result Comment: ORDE R COMMENTS:PCT <0.50 = Low risk of severe sepsis and/or septic shock.PCT >2.00 = High risk of severe sepsis and/or septic shock. Performed By: #### L [id number] ####Assistant Grocery: NED PAK ([phone])[facility])[address] [place] [address] PROCALCITONIN 0.19 ng/mL High 0.00-0.09 [facility] Comment on above: Result Comment: ORDE R COMMENTS:PCT <0.50 = Low risk of severe sepsis and/or septic shock.PCT >2.00 = High risk of severe sepsis and/or septic shock. Performed By: #### L [id number] ####Assistant Grocery: NED PAK ([phone])[facility])[address] [place] [address] Progress Noteon 12-21-2022 Progress Note Normal [facility] Progress Note Normal [facility] Progress Note Normal [facility] Progress Note Normal [facility] RED BLOOD CELL UNIT STATUSon 12-21-2022 Blood Product Code [id number] [facility] Blood Product Description Red Blood Cells [facility] Blood product unit Nom (BPU) [ID] [id number] [facility] Blood Product Unit Type 9500 [facility] Comment on above: O Neg Major crossmatch [Interp] Compatible (IS) [facility] Comment on above: Emergency Transfusio n - Transfused Uncrossmatched XR CHEST 1 VIEWon 12-21-2022 XR CHEST 1 VIEW Normal [facility] BASIC METABOLIC PANELon 10-0 Anion gap [Moles/Vol] 6 mmol/L Normal 3-13 [facility] Comment on above: Performed By: #### L AB15 ####Assistant Grocery: NED PAK ([phone])[facility])[address] [place] [address] Calcium [Mass/Vol] 8.4 mg/dL Normal 8.4-10.4 [facility] Comment on above: Performed By: #### L AB15 ####Assistant Grocery: NED PAK ([phone])[facility])[address] [place] [address] Chloride [Moles/Vol] 117 mmol/L High 98-107 [facility] Comment on above: Performed By: #### L AB15 ####Assistant Grocery: NED PAK ([phone])[facility] ([facility])[address] [place] [address] CO2 [Moles/Vol] 22 mmol/L Normal 22-30 [facility] Comment on above: Performed By: #### L AB15 ####Assistant Grocery: NED PAK ([phone])[facility])[address] [place] [address] Creatinine [Mass/Vol] 0.68 mg/dL Normal 0.52-1.04 [facility] Comment on above: Performed By: #### L AB15 ####Assistant Grocery: NED PAK ([phone])[facility])[address] [place] [address] GLOMERULAR FILTRATION RATE ML/MIN/1.73 SQ M.PREDICTED 77.9 mL/min/1.73m*2 Normal >60.0 [facility] Comment on above: Result Comment: Calc ulation based on the Chronic Kidney Disease Epidemiology Collaboration (CKD-EPI) equation refit without adjustment for race Performed By: #### L AB15 ####Assistant Grocery: NED PAK ([phone])[facility])[address] [place] [address] Glucose [Mass/Vol] 152 mg/dL High 70-100 [facility] Comment on above: Performed By: #### L AB15 ####Assistant Grocery: NED PAK ([phone])[facility])[address] [place] [address] Potassium [Moles/Vol] 3.6 mmol/L Normal 3.5-5.1 [facility] Comment on above: Performed By: #### L AB15 ####Assistant Grocery: NED PAK ([phone])[facility])[address] [place] [address] Sodium [Moles/Vol] 144 mmol/L Normal 135-145 [facility] Comment on above: Performed By: #### L AB15 ####Assistant Grocery: NED PAK ([phone])[facility])[address] [place] [address] Urea nitrogen [Mass/Vol] 17 mg/dL Normal 7-17 [facility] Comment on above: Performed By: #### L [id number] ####[employer]istant [employer]: NED PAK ([id number])[facility])[address] [place] [address] CBC WITH AUTO DIFFERENTIALon 12-20-2022 Basophils (Bld) [#/Vol] 0.0 10*3/uL Normal 0.0-0.2 [facility] Comment on above: Performed By: #### L [id number] ####[employer]istant [employer]: NED PAK ([phone])[facility])[address] [place] [address] Basophils/100 WBC (Bld) 0.3 % Normal 0.0-2.0 [facility] Comment on above: Performed By: #### L [id number] ####[employer]istant [employer]: NED PAK ([id number])[facility])[address] [place] [address] Eosinophils (Bld) [#/Vol] 0.0 10*3/uL Normal 0.0-0.5 [facility] Comment on above: Performed By: #### L [id number] ####[employer]istant [employer]: NED PAK ([phone])[facility])[address] [place] [address] Eosinophils/100 WBC (Bld) 0.1 % Low 1.0-6.0 [facility] Comment on above: Performed By: #### L [id number] ####[employer]istant [employer]: NED PAK ([id number])[facility])[address] [place] [address] Erythrocyte distribution width (RBC) [Ratio] 14.2 % Normal 11.5-14.5 [facility] Comment on above: Performed By: #### L [id number] ####[employer]istant [employer]: NED PAK ([id number])[facility])[address] [place] [address] ERYTHROCYTE MEAN CORPUSCULAR HEMOGLOBIN CONCENTRATION (G/DL) BY AUTOMATED 33.1 % Normal 32.0-36.0 [facility] Comment on above: Performed By: #### L [id number] ####Assistant Grocery: NED PAK ([phone])[facility])[address] [place] [address] Hematocrit (Bld) [Volume fraction] 22.1 % Low 35.0-47.0 [facility] Comment on above: Performed By: #### L [id number] ####Assistant Grocery: NED PAK ([phone])[facility])[address] [place] [address] Hemoglobin (Bld) [Mass/Vol] 7.3 g/dL Low 11.7-16.0 [facility] Comment on above: Performed By: #### L [id number] ####Assistant Grocery: NED PAK ([id number])[address] Lymphocytes (Bld) [#/Vol] 1.2 10*3/uL Normal 1.0-4.3 [facility] Comment on above: Performed By: #### L [id number] ####Assistant Grocery: NED PAK ([id number])[facility])[address] [place] [address] Lymphocytes/100 WBC (Bld) 9.7 % Low 20.0-40.0 [facility] Comment on above: Performed By: #### L [id number] ####Assistant Grocery: NED PAK ([id number])[facility])[address] [place] [address] MCH (RBC) [Entitic mass] 29.0 pg Normal 26.0-34.0 [facility] Comment on above: Performed By: #### L [id number] ####Assistant Grocery: NED PAK ([id number])[address] MCV (RBC) [Entitic vol] 87.6 fL Normal 80.0-98.0 [facility] Comment on above: Performed By: #### L [id number] ####Assistant Grocery: NED PAK ([id number])[facility])[address] [place] [address] Monocytes (Bld) [#/Vol] 0.5 10*3/uL Normal 0.0-0.8 [facility] Comment on above: Performed By: #### L [id number] ####Assistant Grocery: NED PAK ([id number])[facility])[address] [place] [address] Monocytes/100 WBC (Bld) 3.8 % Normal 2.0-10.0 [facility] Comment on above: Performed By: #### L [id number] ####Assistant Grocery: NED PAK ([id number])[facility])[address] [place] [address] Neutrophils (Bld) [#/Vol] 11.0 10*3/uL High 1.8-7.0 [facility] Comment on above: Performed By: #### L [id number] ####Assistant Grocery: NED PAK ([id number])[facility])[address] [place] [address] Neutrophils/100 WBC (Bld) 86.1 % High 40.0-80.0 [facility] Comment on above: Performed By: #### L [id number] ####Assistant Grocery: NED PAK ([id number])[facility])[address] [place] [address] NRBC (PER 100 WBCS) BY AUTOMATED COUNT 0.0 /100 WBCs Normal 0.0-2.0 [facility] Comment on above: Performed By: #### L [id number] ####Assistant Grocery: NED PAK ([phone])[facility])[address] [place] [address] Platelet mean volume (Bld) [Entitic vol] 7.4 fL Normal 7.4-12.4 [facility] Comment on above: Performed By: #### L [id number] ####Assistant Grocery: NED PAK ([phone])[facility])[address] [place] [address] PLATELETS (10*3/UL) IN BLOOD AUTOMATED COUNT 119 10*3/uL Low 140-440 [facility] Comment on above: Performed By: #### L [id number] ####Assistant Grocery: NED PAK ([id number])[facility])[address] [place] [address] RBC (Bld) [#/Vol] 2.52 10*6/uL Low 3.8-5.20 [facility] Comment on above: Performed By: #### L [id number] ####Assistant Grocery: NED PAK ([id number])[facility] ([facility])[address] [place] [address] WBC (Bld) [#/Vol] 12.8 10*3/uL High 3.6-10.7 [facility] Comment on above: Performed By: #### L [id number] ####Assistant Grocery: NED PAK ([id number])[facility])[address] [place] [address] Progress Noteon 12-20-2022 Progress Note Normal [facility] 1 VIEW Normal [facility] XR CHEST 1 VIEW Normal [facility] BASIC METABOLIC PANELon 09-3 Anion gap [Moles/Vol] 8 mmol/L Normal 3-13 [facility] Comment on above: Performed By: #### L [id number] ####Assistant Grocery: NED PAK ([phone])[facility])[address] [place] [address] Calcium [Mass/Vol] 8.6 mg/dL Normal 8.4-10.4 [facility] Comment on above: Performed By: #### L AB15 ####Assistant Grocery: NED PAK ([id number])[facility])[address] [place] [address] Chloride [Moles/Vol] 115 mmol/L High 98-107 [facility] Comment on above: Performed By: #### L AB15 ####Assistant Grocery: NED PAK ([phone])[facility])[address] [place] [address] CO2 [Moles/Vol] 22 mmol/L Normal 22-30 [facility] Comment on above: Performed By: #### L AB15 ####Assistant Grocery: NED PAK ([phone])[facility])[address] [place] [address] Creatinine [Mass/Vol] 0.60 mg/dL Normal 0.52-1.04 [facility] Comment on above: Performed By: #### L AB15 ####Assistant Grocery: NED PAK ([id number])[facility])[address] [place] [address] GLOMERULAR FILTRATION RATE ML/MIN/1.73 SQ M.PREDICTED 80.2 mL/min/1.73m*2 Normal >60.0 [facility] Comment on above: Result Comment: Calc ulation based on the Chronic Kidney Disease Epidemiology Collaboration (CKD-EPI) equation refit without adjustment for race Performed By: #### L AB15 ####Assistant Grocery: NED PAK ([id number])[facility])[address] [place] [address] Glucose [Mass/Vol] 136 mg/dL High 70-100 [facility] Comment on above: Performed By: #### L AB15 ####Assistant Grocery: NED PAK ([id number])[facility])[address] [place] [address] Potassium [Moles/Vol] 3.6 mmol/L Normal 3.5-5.1 [facility] Comment on above: Performed By: #### L AB15 ####Assistant Grocery: NED PAK ([id number])[facility])[address] [place] [address] Sodium [Moles/Vol] 144 mmol/L Normal 135-145 [facility] Comment on above: Performed By: #### L AB15 ####Assistant Grocery: NED PAK ([phone])[facility])[address] [place] [address] Urea nitrogen [Mass/Vol] 9 mg/dL Normal 7-17 [facility] Comment on above: Performed By: #### L AB15 ####Assistant Grocery: NED PAK ([id number])[facility])[address] [place] [address] CBC WITH AUTO DIFFERENTIALon 12-19-2022 Basophils (Bld) [#/Vol] 0.0 10*3/uL Normal 0.0-0.2 [facility] Comment on above: Performed By: #### L [id number] ####Assistant Grocery: NED PAK ([id number])[facility])[address] [place] [address] [place] Basophils/100 WBC (Bld) 0.1 % Normal 0.0-2.0 [facility] Comment on above: Performed By: #### L [id number] ####Assistant Grocery: NED PAK ([phone])[facility])[address] [place] [address] Eosinophils (Bld) [#/Vol] 0.0 10*3/uL Normal 0.0-0.5 [facility] Comment on above: Performed By: #### L [id number] ####Assistant Grocery: NED PAK ([id number])[facility])[address] [place] [address] [place] Eosinophils/100 WBC (Bld) 0.0 % Low 1.0-6.0 [facility] Comment on above: Performed By: #### L [id number] ####Assistant Grocery: NED PAK ([id number])[facility])[address] [place] [address] Erythrocyte distribution width (RBC) [Ratio] 13.6 % Normal 11.5-14.5 [facility] Comment on above: Performed By: #### L [id number] ####Assistant Grocery: NED PAK ([id number])[facility])[address] [place] [address] ERYTHROCYTE MEAN CORPUSCULAR HEMOGLOBIN CONCENTRATION (G/DL) BY AUTOMATED 33.5 % Normal 32.0-36.0 [facility] Comment on above: Performed By: #### L [id number] ####Assistant Grocery: NED PAK ([id number])[facility])[address] [place] [address] Hematocrit (Bld) [Volume fraction] 23.9 % Low 35.0-47.0 [facility] Comment on above: Performed By: #### L [id number] ####Assistant Grocery: NED PAK ([id number])[facility])[address] [place] [address] Hemoglobin (Bld) [Mass/Vol] 8.0 g/dL Low 11.7-16.0 [facility] Comment on above: Performed By: #### L [id number] ####Assistant Grocery: NED PAK ([id number])[facility])[address] [place] [address] Lymphocytes (Bld) [#/Vol] 1.0 10*3/uL Normal 1.0-4.3 [facility] Comment on above: Performed By: #### L [id number] ####Assistant Grocery: NED PAK ([phone])[facility])[address] [place] [address] Lymphocytes/100 WBC (Bld) 6.4 % Low 20.0-40.0 [facility] Comment on above: Performed By: #### L [id number] ####Assistant Grocery: NED PAK ([id number])[facility])[address] [place] [address] MCH (RBC) [Entitic mass] 29.3 pg Normal 26.0-34.0 [facility] Comment on above: Performed By: #### L [id number] ####Assistant Grocery: NED PAK ([phone])[facility])[address] [place] [address] MCV (RBC) [Entitic vol] 87.4 fL Normal 80.0-98.0 [facility] Comment on above: Performed By: #### L [id number] ####Assistant Grocery: NED PAK ([phone])[facility])[address] [place] [address] Monocytes (Bld) [#/Vol] 0.5 10*3/uL Normal 0.0-0.8 [facility] Comment on above: Performed By: #### L [id number] ####Assistant Grocery: NED PAK ([id number])[facility])[address] [place] [address] Monocytes/100 WBC (Bld) 3.6 % Normal 2.0-10.0 [facility] Comment on above: Performed By: #### L [id number] ####Assistant Grocery: NED PAK ([id number])[facility])[address] [place] [address] Neutrophils (Bld) [#/Vol] 13.6 10*3/uL High 1.8-7.0 [facility] Comment on above: Performed By: #### L [id number] ####Assistant Grocery: NED PAK ([id number])[facility])[address] [place] [address] Neutrophils/100 WBC (Bld) 89.9 % High 40.0-80.0 [facility] Comment on above: Performed By: #### L [id number] ####Assistant Grocery: NED PAK ([id number])[facility])[address] [place] [address] NRBC (PER 100 WBCS) BY AUTOMATED COUNT 0.0 /100 WBCs Normal 0.0-2.0 [facility] Comment on above: Performed By: #### L [id number] ####Assistant Grocery: NED PAK ([id number])[facility])[address] [place] [address] Platelet mean volume (Bld) [Entitic vol] 7.3 fL Low 7.4-12.4 [facility] Comment on above: Performed By: #### L [id number] ####Assistant Grocery: NED PAK ([id number])[facility])[address] [place] [address] PLATELETS (10*3/UL) IN BLOOD AUTOMATED COUNT 107 10*3/uL Low 140-440 [facility] Comment on above: Performed By: #### L [id number] ####Assistant Grocery: NED PAK ([phone])[facility])[address] [place] [address] RBC (Bld) [#/Vol] 2.74 10*6/uL Low 3.8-5.20 [facility] Comment on above: Performed By: #### L [id number] ####Assistant Grocery: NED PAK ([id number])[facility])[address] [place] [address] WBC (Bld) [#/Vol] 15.1 10*3/uL High 3.6-10.7 [facility] Comment on above: Performed By: #### L [id number] ####Assistant Grocery: NED PAK ([id number])[facility])[address] [place] [address] CT HEAD WO IV CONTRASTon CT HEAD WO IV CONTRAST Normal [facility] ECG 12-LEADon 12-19-2022 ECG 12-LEAD Normal [facility] FFPon 12-19-2022 BB Order Item Product status info to follow [facility] HEMOGLOBIN AND HEMATOCRIT, B LOODon 12-19-2022 Hematocrit (Bld) [Volume fraction] 24.0 % Low 35.0-47.0 [facility] Comment on above: Performed By: #### L [id number] ####Assistant Grocery: NED PAK ([id number])[facility])[address] [place] [address] Hemoglobin (Bld) [Mass/Vol] 8.0 g/dL Low 11.7-16.0 [facility] Comment on above: Performed By: #### L [id number] ####Assistant Grocery: NED PAK ([id number])[facility])[address] [place] [address] Hematocrit (Bld) [Volume fraction] 23.3 % Low 35.0-47.0 [facility] Comment on above: Performed By: #### L [id number] ####Assistant Grocery: NED PAK ([id number])[facility])[address] [place] [address] Hemoglobin (Bld) [Mass/Vol] 7.9 g/dL Low 11.7-16.0 [facility] Comment on above: Performed By: #### L [id number] ####Assistant Grocery: NED PAK ([id number])[facility])[address] [place] [address] LACTIC ACID WITH REFLEXon Lactate [Moles/Vol] 1.7 mmol/L Normal 0.7-2.0 [facility] Comment on above: Performed By: #### L [id number] ####Assistant Grocery: NED PAK ([id number])[facility])[address] [place] [address] Lactate [Moles/Vol] 2.4 mmol/L High 0.7-2.0 [facility] Comment on above: Performed By: #### L [id number] ####Assistant Grocery: NED PAK ([id number])[facility])[address] [place] [address] Lactate [Moles/Vol] 2.3 mmol/L High 0.7-2.0 [facility] Comment on above: Performed By: #### L [id number] ####Assistant Grocery: NED PAK ([id number])[facility] ([facility] PLASMA STATUSon 12-19-2022 BLOOD PRODUCT CODE [id number] Normal [facility] Comment on above: Performed By: #### F FU #### S [facility] [address] [place] [address], BLOOD PRODUCT DESCRIPTION FFP Normal [facility] Comment on above: Performed By: #### F FU #### [facility] [address] [place] [address], BLOOD PRODUCT STATUS Transfused Normal [facility] Comment on above: Performed By: #### F FU #### [facility] [address] [place] [address], Performed By: #### Samuel BU #### [facility] [address] [place] [address], BLOOD PRODUCT UNIT INFO [id number] Normal [facility] Comment on above: Performed By: #### F FU #### [facility] [address] [place] [address], BLOOD PRODUCT UNIT TYPE 6200 Normal [facility] Comment on above: Result Comment: A Po s Performed By: #### F FU #### [facility] [address] [place] [address], Progress Noteon 12-19-2022 Progress Note Normal [facility] Progress Note Normal [facility] Progress Note Normal [facility] Progress Note Normal [facility] RED BLOOD CELL COMPONENTon 0 12-19-2022 BB ORDER ITEM Product status info to follow Normal [facility] Comment on above: Performed By: #### R SERGIO #### [facility] [address] [place] [address], Performed By: #### F FO #### [facility] [address] [place] [address], BB Order Item Product status info to [facility] BLOOD CELL UNIT STATUSon 12-19-2022 BLOOD PRODUCT CODE [id number] Normal [facility] Comment on above: Performed By: #### R BU #### [facility] [address] [place] [address], BLOOD PRODUCT DESCRIPTION Red Blood Cells Normal [facility] Comment on above: Performed By: #### R BU #### [facility] [address] [place] [address], BLOOD PRODUCT UNIT INFO [id number] Normal [facility] Comment on above: Performed By: #### R BU #### [facility] [address] [place] [address], BLOOD PRODUCT UNIT TYPE 9500 Normal [facility] Comment on above: Result Comment: Dimitri Villarreal g Performed By: #### R BU #### [facility] [address] [place] [address], CROSSMATCH INTERPRETATION Compatible (IS) Normal [facility] Comment on above: Result Comment: Nessa gency Transfusion - Transfused Uncrossmatched Performed By: #### R BU #### [facility] [address] [place] [address], TYPE AND SCREENon 12-19-2022 ABO and Rh group Nom (Bld) Blood group A Rh(D) positive Normal [facility] Comment on above: Performed By: #### T S #### [facility] [address] [place] [address], ABO and Rh group Nom (Bld) No Previous Results Normal [facility] Comment on above: Performed By: #### T S #### S [facility] [address] [place] [address], ABSC INT Negative Normal [facility] Comment on above: Performed By: #### T S #### S [facility] [address] [place] [address], ABO and Rh group Nom (Bld) Blood group A Rh(D) positive [facility] ABO and Rh group Nom (Bld) No Previous Results [facility] Blood group antibody screen Ql Negative [facility] XR ABDOMEN 1 VIEWon 12-20-19 23 XR ABDOMEN 1 VIEW Normal [facility] XR ABDOMEN 1 VIEW Normal [facility] XR CHEST 1 VIEWon 12-19-2022 XR CHEST 1 VIEW Normal [facility] BASIC METABOLIC PANELon 11-21 Anion gap [Moles/Vol] 11 mmol/L Normal 3-13 [facility] Comment on above: Performed By: #### L AB15 ####Assistant Grocery: NED PAK ([phone])[facility])[address] [place] [address] Calcium [Mass/Vol] 8.9 mg/dL Normal 8.4-10.4 [facility] Comment on above: Performed By: #### L AB15 ####Assistant Grocery: NED PAK ([id number])[facility] ([facility])[address] [place] [address] Chloride [Moles/Vol] 111 mmol/L High 98-107 [facility] Comment on above: Performed By: #### L AB15 ####Assistant Grocery: NED PAK ([id number])[facility] ([facility])[address] [place] [address] CO2 [Moles/Vol] 21 mmol/L Low 22-30 [facility] Comment on above: Performed By: #### L AB15 ####Assistant Grocery: NED PAK ([phone])[facility])[address] [place] [address] Creatinine [Mass/Vol] 0.65 mg/dL Normal 0.52-1.04 [facility] Comment on above: Performed By: #### L AB15 ####Assistant Grocery: NED PAK ([phone])[facility])[address] [place] [address] [place] GLOMERULAR FILTRATION RATE ML/MIN/1.73 SQ M.PREDICTED 78.7 mL/min/1.73m*2 Normal >60.0 [facility] Comment on above: Result Comment: Calc ulation based on the Chronic Kidney Disease Epidemiology Collaboration (CKD-EPI) equation refit without adjustment for race Performed By: #### L AB15 ####Assistant Grocery: NED PAK ([id number])[facility] ([facility])[address] [place] [address] [place] Glucose [Mass/Vol] 142 mg/dL High 70-100 [facility] Comment on above: Performed By: #### L AB15 ####Assistant Grocery: NED PKA ([id number])[facility] ([facility])[address] [place] [address] [place] Potassium [Moles/Vol] 4.1 mmol/L Normal 3.5-5.1 [facility] Comment on above: Performed By: #### L AB15 ####Assistant Grocery: NED PAK ([id number])[facility] ([facility])[address] [place] [address] Sodium [Moles/Vol] 143 mmol/L Normal 135-145 [facility] Comment on above: Performed By: #### L AB15 ####Assistant Grocery: NED PAK ([id number])[facility] ([facility])[address] [place] [address] Urea nitrogen [Mass/Vol] 13 mg/dL Normal 7-17 [facility] Comment on above: Performed By: #### L AB15 ####Assistant Grocery: NED PAK ([id number])[facility] ([facility])[address] [place] [address] Anion gap [Moles/Vol] 12 mmol/L Normal 3-13 [facility] Comment on above: Performed By: #### L AB15 ####Assistant Grocery: NED PAK ([id number])[facility])[address] [place] [address] [place] Calcium [Mass/Vol] 9.6 mg/dL Normal 8.4-10.4 [facility] Comment on above: Performed By: #### L AB15 ####Assistant Grocery: NED PAK ([phone])[facility] ([facility])[address] [place] [address] [place] Chloride [Moles/Vol] 110 mmol/L High 98-107 [facility] Comment on above: Performed By: #### L AB15 ####Assistant Grocery: NED PAK ([id number])[facility])[address] [place] [address] CO2 [Moles/Vol] 20 mmol/L Low 22-30 [facility] Comment on above: Performed By: #### L AB15 ####Assistant Grocery: NED PAK ([id number])[facility])[address] [place] [address] Creatinine [Mass/Vol] 0.77 mg/dL Normal 0.52-1.04 [facility] Comment on above: Performed By: #### L AB15 ####Assistant Grocery: NED PAK ([phone])[facility])[address] [place] [address] GLOMERULAR FILTRATION RATE ML/MIN/1.73 SQ M.PREDICTED 69.0 mL/min/1.73m*2 Normal >60.0 [facility] Comment on above: Result Comment: Calc ulation based on the Chronic Kidney Disease Epidemiology Collaboration (CKD-EPI) equation refit without adjustment for race Performed By: #### L AB15 ####Assistant Grocery: NED PAK ([id number])[facility])[address] [place] [address] Glucose [Mass/Vol] 172 mg/dL High 70-100 [facility] Comment on above: Performed By: #### L AB15 ####Assistant Grocery: NED PAK ([id number])[facility])[address] [place] [address] Potassium [Moles/Vol] 4.6 mmol/L Normal 3.5-5.1 [facility] Comment on above: Performed By: #### L AB15 ####Assistant Grocery: NED PAK ([id number])[facility])[address] [place] [address] Sodium [Moles/Vol] 142 mmol/L Normal 135-145 [facility] Comment on above: Performed By: #### L AB15 ####Assistant Grocery: NED PAK ([id number])[facility] ([facility])[address] [place] [address] Urea nitrogen [Mass/Vol] 15 mg/dL Normal 7-17 [facility] Comment on above: Performed By: #### L AB15 ####Assistant Grocery: NED PAK ([id number])[facility] ([facility])[address] [place] [address] CARECOORDon 12-18-2022 CARECOORD Normal [facility] CBC (HEMOGRAM)on 12-18-2022 Erythrocyte distribution width (RBC) [Ratio] 13.7 % Normal 11.5-14.5 [facility] Comment on above: Performed By: #### L [id number] ####Assistant Grocery: NED PAK ([phone])[facility])[address] [place] [address] ERYTHROCYTE MEAN CORPUSCULAR HEMOGLOBIN CONCENTRATION (G/DL) BY AUTOMATED 34.3 % Normal 32.0-36.0 [facility] Comment on above: Performed By: #### L [id number] ####Assistant Grocery: NED PAK ([id number])[facility] ([facility])[address] [place] [address] Hematocrit (Bld) [Volume fraction] 32.3 % Low 35.0-47.0 [facility] Comment on above: Performed By: #### L [id number] ####Assistant Grocery: NED PAK ([phone])[facility])[address] [place] [address] Hemoglobin (Bld) [Mass/Vol] 11.1 g/dL Low 11.7-16.0 [facility] Comment on above: Performed By: #### L [id number] ####Assistant [employer]: NED PAK ([id number])[facility])[address] [place] [address] MCH (RBC) [Entitic mass] 29.8 pg Normal 26.0-34.0 [facility] Comment on above: Performed By: #### L [id number] ####Assistant [employer]: NED PAK ([phone])[facility])[address] [place] [address] MCV (RBC) [Entitic vol] 86.8 fL Normal 80.0-98.0 [facility] Comment on above: Performed By: #### L [id number] ####Assistant [employer]: NED PAK ([id number])[facility])[address] [place] [address] Platelet mean volume (Bld) [Entitic vol] 7.3 fL Low 7.4-12.4 [facility] Comment on above: Performed By: #### L [id number] ####Assistant [employer]: NED PAK ([phone])[facility])[address] [place] [address] PLATELETS (10*3/UL) IN BLOOD AUTOMATED COUNT 153 10*3/uL Normal 140-440 [facility] Comment on above: Performed By: #### L [id number] ####Assistant [employer]: NED PAK ([id number])[facility])[address] [place] [address] RBC (Bld) [#/Vol] 3.72 10*6/uL Low 3.8-5.20 [facility] Comment on above: Performed By: #### L [id number] ####Assistant Grocery: NED PAK ([id number])[facility])[address] [place] [address] WBC (Bld) [#/Vol] 21.8 10*3/uL High 3.6-10.7 [facility] Comment on above: Performed By: #### L [id number] ####Assistant Grocery: NED PAK ([id number])[facility])[address] [place] [address] COMPLETE URINALYSISon 2022 BACTERIA (#/HPF) IN URINE Negative Normal Negative [facility] Comment on above: Performed By: #### L [id number] ####Assistant Grocery: NED PAK ([id number])[facility] [place] [address] BILIRUBIN, TOTAL PRESENCE IN URINE Negative Normal Negative [facility] Comment on above: Performed By: #### L [id number] ####Assistant Grocery: NED PAK ([id number])[facility] [place] [address] Clarity (U) Turbid Abnormal Clear [facility] Comment on above: Performed By: #### L [id number] ####Assistant Grocery: NED PAK ([id number])[facility] ([facility])[address] [place] [address] Color (U) Light Gilmer Abnormal Lt. Yellow [facility] Comment on above: Performed By: #### L AB347 ####Assistant Grocery: NED PAK ([id number])[facility] ([facility])[address] [place] [address] GLUCOSE (MG/DL) IN URINE Normal Normal Normal (<70) [facility] Comment on above: Performed By: #### L AB347 ####Assistant Grocery: NED PAK ([id number])[facility] ([facility])[address] [place] [address] HEMOGLOBIN PRESENCE IN URINE >1.0 Abnormal Negative [facility] Comment on above: Performed By: #### L AB347 ####Assistant Grocery: NED PAK ([id number])[facility] [place] [address] HYALINE CASTS (#/LPF) IN URINE SEDIMENT BY MICROSCOPY Negative Normal Negative [facility] Comment on above: Performed By: #### L AB347 ####Assistant Grocery: NED PAK ([phone])[facility] ([facility])[address] [place] [address] Ketones Ql (U) 10 mg/dL Abnormal Negative [facility] Comment on above: Performed By: #### L AB347 ####Assistant Grocery: NED PAK ([phone])[facility] [place] [address] LEUKOCYTE ESTERASE PRESENCE IN URINE BY TEST STRIP 25 Danielito/uL Abnormal Negative [facility] Comment on above: Performed By: #### L AB347 ####Assistant Grocery: NED PAK ([id number])[facility] ([facility])[address] [place] [address] MUCUS (#/LPF) IN URINE SEDIMENT Few Normal Negative [facility] Comment on above: Performed By: #### L AB347 ####Assistant Grocery: NED PAK ([id number])[facility] ([facility])[address] [place] [address] NITRITE PRESENCE IN URINE Negative Normal Negative [facility] Comment on above: Performed By: #### L AB347 ####Assistant Grocery: NED PAK ([id number])[facility])[address] [place] [address] pH (U) 5.0 [pH] Normal 5.0-8.0 [facility] Comment on above: Performed By: #### L AB347 ####Assistant Grocery: NED PAK ([id number])[facility])[address] [place] [address] Protein (U) [Mass/Vol] 50 mg/dL Abnormal Negative [facility] Comment on above: Performed By: #### L AB347 ####Assistant Grocery: NED PAK ([id number])[facility])[address] [place] [address] RBC (#/HPF) IN URINE SEDIMENT >100 Abnormal 0-2 [facility] Comment on above: Performed By: #### L AB347 ####Assistant Grocery: NED PAK ([id number])[facility])[address] [place] [address] Specific gravity (U) [Rel density] 1.026 Normal 1.005-1.03 0 [facility] Comment on above: Performed By: #### L AB347 ####Assistant Grocery: NED PAK ([id number])[facility] ([facility])[address] [place] [address] SQUAMOUS EPITHELIAL CELLS (#/HPF) IN URINE SEDIMENT Negative Normal 3-5 [facility] Comment on above: Performed By: #### L AB347 ####Assistant Grocery: NED PAK ([id number])[facility] ([facility])[address] [place] [address] UROBILINOGEN (MG/DL) IN URINE Normal Normal Normal (0-1) [facility] Comment on above: Performed By: #### L AB347 ####Assistant Grocery: NED PAK ([id number])[facility] ([facility])[address] [place] [address] WBC (LEUKOCYTE) (#/HPF) IN URINE SEDIMENT 26-50 Abnormal 0-5 [facility] Comment on above: Performed By: #### L [id number] ####Assistant Grocery: NED PAK ([id number])[facility] [place] [address] CT CERVICAL SPINE WO IV CONT RASTon 12-18-2022 CT CERVICAL SPINE WO IV CONTRAST Normal [facility] CT HEAD NECK ANGIO W AND WO IV CONTRASTon 12-18-2022 CT HEAD NECK ANGIO W AND WO IV CONTRAST Normal [facility] CT HEAD WO IV CONTRASTon CT HEAD WO IV CONTRAST Normal [facility] CT HEAD WO IV CONTRAST Normal [facility] CT MAXILLOFACIAL WO IV CONTR Miranda 12-18-2022 CT MAXILLOFACIAL WO IV CONTRAST Normal [facility] Consulton 12-18-2022 Consult Normal [facility] Consult Normal [facility] Consult Normal [facility] Consult Normal [facility] ECG 12-LEADon 12-18-2022 ECG 12-LEAD IMPRESSION: Sinus tachycardia Multiple ventricular premature complexes Left ventricular hypertrophy Electronically Signed On 12-18-2022 14:12:00 EDT by Imelda Manzano Normal [facility] HEMOGLOBIN AND HEMATOCRIT, B LOODon 12-18-2022 Hematocrit (Bld) [Volume fraction] 27.6 % Low 35.0-47.0 [facility] Comment on above: Performed By: #### L [id number] ####Assistant Grocery: NED PAK ([id number])[facility])[address] [place] [address] Hemoglobin (Bld) [Mass/Vol] 9.1 g/dL Low 11.7-16.0 [facility] Comment on above: Performed By: #### L AB753 ####Assistant Grocery: NED PAK ([id number])[facility])[address] [place] [address] Hematocrit (Bld) [Volume fraction] 28.4 % Low 35.0-47.0 [facility] Comment on above: Performed By: #### L [id number] ####Assistant Grocery: NED PAK ([id number])[facility])[address] [place] [address] Hemoglobin (Bld) [Mass/Vol] 9.2 g/dL Low 11.7-16.0 [facility] Comment on above: Performed By: #### L AB753 ####Assistant Grocery: NED PAK ([id number])[facility])[address] [place] [address] Hematocrit (Bld) [Volume fraction] 27.1 % Low 35.0-47.0 [facility] Comment on above: Performed By: #### L AB753 ####Assistant Grocery: NED PAK ([phone])[facility])[address] [place] [address] Hemoglobin (Bld) [Mass/Vol] 9.3 g/dL Low 11.7-16.0 [facility] Comment on above: Performed By: #### L AB753 ####Assistant Grocery: NED PAK ([id number])[facility])[address] [place] [address] LACTIC ACID WITH REFLEXon Lactate [Moles/Vol] 3.1 mmol/L High 0.7-2.0 [facility] Comment on above: Performed By: #### L [id number] ####Assistant Grocery: NED PAK ([id number])[facility] ([facility])[address] [place] [address] Lactate [Moles/Vol] 4.5 mmol/L Critically high 0.7-2.0 [facility] Comment on above: Performed By: #### L [id number] ####Assistant Grocery: NED PAK ([id number])[facility] ([facility])[address] [place] [address] Lactate [Moles/Vol] 3.7 mmol/L High 0.7-2.0 [facility] Comment on above: Performed By: #### L [id number] ####Assistant Grocery: NED PAK ([id number])[facility] ([facility])[address] [place] [address] Lactate [Moles/Vol] 4.7 mmol/L Critically high 0.7-2.0 [facility] Comment on above: Performed By: #### L [id number] ####Assistant Grocery: NED PAK ([id number])[facility])[address] [place] [address] Progress Noteon 12-18-2022 Progress Note Normal [facility] Progress Note Normal [facility] Progress Note Physical Therapy PT eval held this date due to RN reporting pt is not a good candidate this date due to decreased cognition and command following. Will re-attempt as able. Fanny Brower, SPT Normal [facility] Progress Note Palliative Care Interdisciplinary Meeting Note: This a new consult, to be seen. Normal [facility] Progress Note Normal [facility] Progress Note Normal [facility] Progress Note Normal [facility] Progress Note Normal [facility] XR CHEST 1 VIEWon 12-18-2022 XR CHEST 1 VIEW Normal [facility] BASIC METABOLIC PANELon 11-21 Anion gap [Moles/Vol] 16 mmol/L High 3-13 [facility] Comment on above: Performed By: #### L AB15, LAB46, [id number], [id number] ####Assistant Grocery: NED PAK ([id number])[facility])[address] [place] [address] Calcium [Mass/Vol] 9.2 mg/dL Normal 8.4-10.4 [facility] Comment on above: Performed By: #### L AB15, LAB46, [id number], [id number] ####Assistant Grocery: NED PAK ([id number])[facility])[address] [place] [address] Chloride [Moles/Vol] 111 mmol/L High 98-107 [facility] Comment on above: Performed By: #### L AB15, LAB46, [id number], [id number] ####Assistant Grocery: NED PAK ([id number])[facility])[address] [place] [address] CO2 [Moles/Vol] 18 mmol/L Low 22-30 [facility] Comment on above: Performed By: #### L AB15, LAB46, QVF086, KFU686 ####Assistant Grocery: NED PAK ([id number])[facility])[address] [place] [address] Creatinine [Mass/Vol] 0.80 mg/dL Normal 0.52-1.04 [facility] Comment on above: Performed By: #### L AB15, LAB46, GKS884, VTR533 ####Assistant Grocery: NED PAK ([phone])[facility])[address] [place] [address] GLOMERULAR FILTRATION RATE ML/MIN/1.73 SQ M.PREDICTED 65.9 mL/min/1.73m*2 Normal >60.0 [facility] Comment on above: Result Comment: Calc ulation based on the Chronic Kidney Disease Epidemiology Collaboration (CKD-EPI) equation refit without adjustment for race Performed By: #### L AB15, LAB46, VYO983, [id number] ####Assistant Grocery: NED PAK ([phone])[facility])[address] [place] [address] Glucose [Mass/Vol] 132 mg/dL High 70-100 [facility] Comment on above: Performed By: #### L AB15, LAB46, RRX520, JYR216 ####Assistant Grocery: NED PAK ([id number])[facility] ([facility])[address] [place] [address] Potassium [Moles/Vol] 3.3 mmol/L Low 3.5-5.1 [facility] Comment on above: Performed By: #### L AB15, LAB46, FGP460, [id number] ####Assistant Grocery: NED PAK ([id number])[facility] ([facility])[address] [place] [address] Sodium [Moles/Vol] 144 mmol/L Normal 135-145 [facility] Comment on above: Performed By: #### L AB15, LAB46, KJN950, LSD684 ####Assistant Grocery: NED PAK ([id number])[facility] ([facility])[address] [place] [address] Urea nitrogen [Mass/Vol] 19 mg/dL High 7-17 [facility] Comment on above: Performed By: #### L AB15, LAB46, YEK168, VIG031 ####Assistant Grocery: NED PAK ([id number])[facility] ([facility])[address] [place] [address] BLOOD TYPE AND SCREEN GELon 12-17-2022 ABO GROUPING A Normal [facility] Comment on above: Performed By: #### L AB276 ####Assistant Grocery: NED PAK ([id number])[facility] ([facility])[address] [place] [address] RH TYPE IN BLOOD Positive Normal [facility] Comment on above: Performed By: #### L AB276 ####Assistant Grocery: NED PAK ([id number])[facility] ([facility])[address] [place] [address] [place] CBC WITH AUTO DIFFERENTIALon 12-17-2022 Erythrocyte distribution width (RBC) [Ratio] 13.5 % Normal 11.5-14.5 [facility] Comment on above: Performed By: #### L [id number], [id number] ####Assistant Grocery: NED PAK ([id number])[facility])[address] [place] [address] ERYTHROCYTE MEAN CORPUSCULAR HEMOGLOBIN CONCENTRATION (G/DL) BY AUTOMATED 32.8 % Normal 32.0-36.0 [facility] Comment on above: Performed By: #### Tameka [id number], [id number] ####Assistant Grocery: NED PAK ([id number])[address] Hematocrit (Bld) [Volume fraction] 35.0 % Normal 35.0-47.0 [facility] Comment on above: Performed By: #### Tameka HK6952, [id number] ####Assistant Grocery: NED PAK ([id number])[address] Hemoglobin (Bld) [Mass/Vol] 11.5 g/dL Low 11.7-16.0 [facility] Comment on above: Performed By: #### Tameka SC9775, [id number] ####Assistant Grocery: NED PAK ([id number])[address] MCH (RBC) [Entitic mass] 28.9 pg Normal 26.0-34.0 [facility] Comment on above: Performed By: #### Tameka QF1712, [id number] ####Assistant Grocery: NED PAK ([id number])[address] MCV (RBC) [Entitic vol] 88.2 fL Normal 80.0-98.0 [facility] Comment on above: Performed By: #### L IE7427, XSE1571 ####Assistant Grocery: NED PAK ([id number])[facility] ([facility])[address] [place] [address] [place] Platelet mean volume (Bld) [Entitic vol] 7.1 fL Low 7.4-12.4 [facility] Comment on above: Performed By: #### L WE5222, [id number] ####Assistant Grocery: NED PAK ([id number])[facility] ([facility])[address] [place] [address] PLATELETS (10*3/UL) IN BLOOD AUTOMATED COUNT 197 10*3/uL Normal 140-440 [facility] Comment on above: Performed By: #### L [id number], [id number] ####Assistant Grocery: NED PAK ([id number])[facility] ([facility])[address] [place] [address] RBC (Bld) [#/Vol] 3.97 10*6/uL Normal 3.8-5.20 [facility] Comment on above: Performed By: #### L [id number], [id number] ####Assistant Grocery: NED PAK ([id number])[facility] ([facility])[address] [place] [address] WBC (Bld) [#/Vol] 27.2 10*3/uL High 3.6-10.7 [facility] Comment on above: Performed By: #### L [id number], [id number] ####Assistant Grocery: NED PAK ([id number])[facility] ([facility])[address] [place] [address] CT CHEST ABDOMEN PELVIS W CO NTRASTon 12-17-2022 CT CHEST ABDOMEN PELVIS W CONTRAST Normal [facility] Consulton 12-17-2022 Consult Normal [facility] Consult Normal [facility] DRUGS OF ABUSEon 12-17-2022 AMPHETAMINE SCREEN Negative Normal [facility] Comment on above: Performed By: #### L [id number] ####Assistant Grocery: NED PAK ([id number])[facility])[address] [place] [address] BARBITURATES SCREEN Negative Normal [facility] Comment on above: Performed By: #### L [id number] ####Assistant Grocery: NED [id number])[facility] [place] [address] BENZODIAZEPINE SCREEN Negative Normal [facility] Comment on above: Performed By: #### L [id number] ####Assistant Grocery: NED PAK ([id number])[facility] ([facility])[address] [place] [address] COCAINE METAB. SCREEN Negative Normal [facility] Comment on above: Performed By: #### L [id number] ####Assistant Grocery: NED PAK ([id number])[facility] [place] [address] METHADONE SCREEN Negative Normal [facility] Comment on above: Performed By: #### L [id number] ####Assistant Grocery: NED PAK ([id number])[facility] ([facility])[address] [place] [address] OPIATES SCREEN Positive Normal [facility] Comment on above: Performed By: #### L [id number] ####Assistant Grocery: NED PAK ([id number])[facility] [place] [address] OXYCODONE SCREEN Negative Normal [facility] Comment on above: Performed By: #### L [id number] ####Assistant Grocery: NED PAK ([id number])[facility] ([facility])[address] [place] [address] PHENCYCLIDINE SCREEN Negative Normal [facility] Comment on above: [...] under separate order. Performed By: #### L [id number] ####Assistant Grocery: NED PAK ([id number])[address] ED Nursing Noteon 12-17-2022 ED Nursing Note Blood Bank called/MT P ordered by Jenni ABERNATHY (verbal order per ). Amalia Juares RN 12/17/22 1703 Normal [facility] ED Provider Noteon ED Provider Note Normal [facility] ETHANOLon 12-17-2022 ETHANOL IN SER/PLAS <0.010 Normal 0.000-0. 01 0 [facility] Comment on above: Result Comment: SANDRA Baker COMMENTS:NOTE: This result is for medical treatment only. Analysis performed using non-forensic procedures. Performed By: #### L AB15, LAB46, YNT145, HIG673 ####Assistant Grocery: NED PAK ([id number])[facility])[address] [place] [address] HEMOGLOBIN AND HEMATOCRIT, B LOODon 12-17-2022 Hematocrit (Bld) [Volume fraction] 37.7 % Normal 35.0-47.0 [facility] Comment on above: Performed By: #### L AB753 ####Assistant Grocery: NED PAK ([id number])[address] Hemoglobin (Bld) [Mass/Vol] 12.5 g/dL Normal 11.7-16.0 [facility] Comment on above: Performed By: #### L AB753 ####Assistant Grocery: NED PAK ([id number])[address] LACTIC ACID WITH REFLEXon Lactate [Moles/Vol] 4.3 mmol/L Critically high 0.7-2.0 [facility] Comment on above: Performed By: #### L [id number] ####Assistant Grocery: NED [id number])[facility])[address] [place] [address] Lactate [Moles/Vol] 3.2 mmol/L High 0.7-2.0 [facility] Comment on above: Performed By: #### L [id number] ####Assistant Grocery: NED PAK ([id number])[facility])[address] [place] [address] MAGNESIUMon 12-17-2022 Magnesium [Mass/Vol] 2.0 mg/dL Normal 1.6-2.3 [facility] Comment on above: Performed By: #### L AB15, LAB46, RPA378, IKO150 ####Assistant Grocery: NED PAK ([id number])[address] MANUAL DIFFERENTIALon 2022 BAND NEUTROPHILS (10*3/UL) BLOOD MANUAL COUNT 0.7 10*3/uL High <=0.0 [facility] Comment on above: Result Comment: This is an appended report. These results have been appended to a previously final verified report. Performed By: #### L [id number], [id number] ####Assistant Grocery: NED PAK ([id number])[address] BAND NEUTROPHILS TOTAL PER COUNTED LEUKOCYTES BY MANUAL COUNT 5 Normal [facility] Comment on above: Result Comment: This is an appended report. These results have been appended to a previously final verified report. Performed By: #### L [id number], [id number] ####Assistant Grocery: NED PAK ([id number])[address] LANEY CELLS PRESENCE IN BLOOD BY LIGHT MICROSCOPY Rare Abnormal (none) [facility] Comment on above: Result Comment: This is an appended report. These results have been appended to a previously final verified report. Performed By: #### L [id number], [id number] ####Assistant Grocery: NED PAK ([id number])[facility] CELLS COUNTED TOTAL (#) IN BLOOD 200 Normal [facility] Comment on above: Result Comment: This is an appended report. These results have been appended to a previously final verified report. Performed By: #### L [id number], [id number] ####Assistant Grocery: NED PAK ([id number])[address] DIFFERENTIAL METHOD Manual differential performed Normal [facility] Comment on above: Result Comment: This is an appended report. These results have been appended to a previously final verified report. Performed By: #### L [id number], [id number] ####Assistant Grocery: NED PAK ([id number])[address] ELLIPTOCYTES IN BLOOD BY LIGHT MICROSCOPY Rare Abnormal (none) [facility] Comment on above: Result Comment: This is an appended report. These results have been appended to a previously final verified report. Performed By: #### L [id number], [id number] ####Assistant Grocery: NED PAK ([id number])[address] LEUKOCYTE MORPHOLOGY FINDING IN BLOOD Normal [facility] Comment on above: Result Comment: [place] ected result: Previously reported as Normal (reference range: ) on 12/17/2022 at 1645 EDT. Performed By: #### L LA9912, [id number] ####Assistant Grocery: NED PAK ([phone])[facility])[address] [place] [address] LEUKOCYTES (10*3/UL) NUCLEATED ERYTHROCYTE ADJUST 27.2 10*3/uL High 3.6-10.7 [facility] Comment on above: Performed By: #### L [id number], [id number] ####Assistant Grocery: NED PAK ([id number])[address] LYMPHOCYTES (10*3/UL) IN BLOOD BY MANUAL COUNT 2.3 10*3/uL Normal 1.0-4.3 [facility] Comment on above: Result Comment: This is an appended report. These results have been appended to a previously final verified report. Performed By: #### L [id number], [id number] ####Assistant Grocery: NED PAK ([id number])[facility])[address] [place] [address] [place] LYMPHOCYTES TOTAL PER COUNTED LEUKOCYTES BY MANUAL COUNT 17 Normal [facility] Comment on above: Result Comment: This is an appended report. These results have been appended to a previously final verified report. Performed By: #### L BY6350, [id number] ####Assistant Grocery: NED PAK ([phone])[facility])[address] [place] [address] LYMPHOCYTES/100 LEUKOCYTES IN BLOOD BY MANUAL COUNT 9 % Low 20-40 [facility] Comment on above: Result Comment: This is an appended report. These results have been appended to a previously final verified report. Performed By: #### L [id number], [id number] ####Assistant Grocery: NED PAK ([id number])[facility])[address] [place] [address] [place] METAMYELOCYTES (10*3/UL) IN BLOOD BY MANUAL COUNT 0.7 10*3/uL High <=0.0 [facility] Comment on above: Result Comment: This is an appended report. These results have been appended to a previously final verified report. Performed By: #### L OQ5493, [id number] ####Assistant Grocery: NED PAK ([phone])[facility])[address] [place] [address] [place] METAMYELOCYTES TOTAL PER COUNTED LEUKOCYTES BY MANUAL COUNT 5 Normal [facility] Comment on above: Result Comment: This is an appended report. These results have been appended to a previously final verified report. Performed By: #### L XB2159, [id number] ####Assistant Grocery: NED PAK ([phone])[facility])[address] [place] [address] [place] METAMYELOCYTES/100 LEUKOCYTES IN BLOOD BY MANUAL COUNT 3 % High <=0 [facility] Comment on above: Result Comment: This is an appended report. These results have been appended to a previously final verified report. Performed By: #### L QC0191, [id number] ####Assistant Grocery: NED PAK ([phone])[facility])[address] [place] [address] [place] MONOCYTES (10*3/UL) IN BLOOD BY MANUAL COUNT 0.5 10*3/uL Normal 0.0-0.8 [facility] Comment on above: Result Comment: This is an appended report. These results have been appended to a previously final verified report. Performed By: #### L [id number], [id number] ####Assistant Grocery: NED PAK ([id number])[facility])[address] [place] [address] [place] MONOCYTES TOTAL PER COUNTED LEUKOCYTES BY MANUAL COUNT 4 Normal [facility] Comment on above: Result Comment: This is an appended report. These results have been appended to a previously final verified report. Performed By: #### L [id number], [id number] ####Assistant Grocery: NED PAK ([id number])[facility] [facility])[address] [place] [address] MONOCYTES/100 LEUKOCYTES IN BLOOD BY MANUAL COUNT 2 % Normal 2-10 [facility] Comment on above: Result Comment: This is an appended report. These results have been appended to a previously final verified report. Performed By: #### L [id number], [id number] ####Assistant [employer]: NED PAK ([phone])[facility])[address] [place] [address] [place] NEUTROPHILS (SEGS+BANDS) (10*3/UL) BY MANUAL COUNT 23.7 10*3/uL High 1.8-7.0 [facility] Comment on above: Result Comment: This is an appended report. These results have been appended to a previously final verified report. Performed By: #### L [id number], [id number] ####Assistant [employer]: NED PAK ([phone])[facility])[address] [place] [address] NEUTROPHILS BAND FORM/100 LEUKOCYTES IN BLOOD BY MANUAL COUNT 3 % High <=0 [facility] Comment on above: Result Comment: This is an appended report. These results have been appended to a previously final verified report. Performed By: #### L [id number], [id number] ####Assistant [employer]: NED PAK ([phone])[facility])[address] [place] [address] NEUTROPHILS TOTAL PER COUNTED LEUKOCYTES BY MANUAL COUNT 169 Normal [facility] Comment on above: Result Comment: This is an appended report. These results have been appended to a previously final verified report. Performed By: #### L [id number], [id number] ####Assistant [employer]: NED PAK ([phone])[facility])[address] [place] [address] PLATELET MORPHOLOGY IN BLOOD Normal Normal [facility] Comment on above: Performed By: #### L [id number], [id number] ####Assistant [employer]: NED PAK ([phone])[facility])[address] [place] [address] POIKILOCYTOSIS (PRESENCE) IN BLOOD BY LIGHT MICROSCOPY Rare Abnormal (none) [facility] Comment on above: Result Comment: This is an appended report. These results have been appended to a previously final verified report. Performed By: #### L [id number], [id number] ####Assistant [employer]: NED PAK ([phone])[facility])[address] [place] [address] RBC MORPHOLOGY IN BLOOD Normal [facility] Comment on above: Result Comment: [place] ected result: Previously reported as Normal (reference range: ) on 12/17/2022 at 1645 EDT. Performed By: #### L [id number], [id number] ####Assistant [employer]: NED PAK ([phone])[facility])[address] [place] [address] SEGEMENTED NEUTROPHILS/100 LEUKOCYTES BY MANUAL COUNT 85 % High 40-80 [facility] Comment on above: Result Comment: This is an appended report. These results have been appended to a previously final verified report. Performed By: #### L [id number], [id number] ####Assistant Grocery: NED PAK ([phone])[address] SEGMENTED NEUTROPHILS (10*3/UL)IN BLOOD BY MANUAL COUNT 23.7 10*3/uL High 1.8-7.0 [facility] Comment on above: Result Comment: This is an appended report. These results have been appended to a previously final verified report. Performed By: #### L [id number], [id number] ####Assistant Gro[employer]: NED PAK ([phone])[address] VACUOLATED NEUTROPHILS PRESENCE IN BLOOD BY LIGHT MICROSCOPY (PRESENT) Present Abnormal (none) [facility] Comment on above: Result Comment: This is an appended report. These results have been appended to a previously final verified report. Performed By: #### L [id number], [id number] ####Assistant Gro[employer]: NED PAK ([phone])[address] Nursing Noteon 12-17-2022 Nursing Note Patient daughter Car ol Mast requesting confidential status be removed from chart. Change made as per request. Admitting notified. Normal [facility] PHOSPHORUSon 12-17-2022 Phosphate [Mass/Vol] 2.9 mg/dL Normal 2.5-4.5 [facility] Comment on above: Performed By: #### L AB15, LAB46, [id number], [id number] ####Assistant [employer]: NED PAK ([phone])[facility])[address] [place] [address] PROTIME AND APTTon aPTT Coag (Bld) [Time] 23.7 s Normal 20.0-30.5 [facility] Comment on above: Performed By: #### L [id number] ####Assistant Grocery: NED PAK ([phone])[facility])[address] [place] [address] INR Coag (PPP) [Relative time] 1.1 {INR} Normal 0.9-1.1 [facility] Comment on above: Result Comment: Sadi [...] prevent Myocardial Infarction Performed By: #### L [id number] ####Assistant Grocery: NED PAK ([id number])[facility])[address] [place] [address] PT Coag (PPP) [Time] 11.4 s Normal 9.0-12.0 [facility] Comment on above: Performed By: #### L [id number] ####Assistant Grocery: NED PAK ([phone])[facility])[address] [place] [address] HAND LT MIN 3 VIEWSon 2022 HAND LT MIN 3 VIEWS [place] [address] Patient: ZOILA WEBSTER Phone#: : [phone] Age: 77 Gender: F Pt. Type: ER Account: [id number] Location: 052 Ordering: DR. BIPIN WILD Exam Date: 12/08/2022/19:57 Family Phys: REGINALDO RILEYANTONI Charge Code: 077970 Physician: Gilchrist Order #: [id number] Dose#: PROCEDURE: X-RAY HAND LT COMPLETE 3 [...] Hernandez MD on 12/09/2022 at 8:40 Normal [facility] Final Surgical Pathology Rep [facility] 11-24-2022 Final Surgical Pathology Report . Pathology Reports Accession: Collected Date/Time: Received Date/Time: Pathologist: [id number] 11/17/2022 13:51 EDT 11/20/2022 13:51 EDT MD LUCA GAUTAM Final Surgical Pathology Report DIAGNOSIS: A. DESCENDING COLON, 60 CM, BIOPSY: - MINIMAL NONSPECIFIC ACUTE INFLAMMATION WITH FOCAL SURFACE EROSION AND REACTIVE CHANGES B. SIGMOID COLON, BIOPSY: - FOCAL NONSPECIFIC SURFACE EROSION WITH MINIMAL ACUTE INFLAMMATION AND REACTIVE CHANGES COMMENT: [facility] - [id number] CLINICAL INFORMATION: COLITIS SPECIMEN: A DESCENDING COLON @ 60 CM B SIGMOID COLON GROSS DESCRIPTION: All parts labelled with patient name and [id number] A. Received in formalin, labeled descending colon, [...] Electronically Signed by Pathology Report verified by [facility] LUCA GAUTAM MD Sign out Date: 11/24/2022 10:51 Performing Lab: [facility], [address] [place] [address] Pathology Dept Disclaimer If ancillary studies were utilized, the following Laboratory Developed Test (LDT) disclaimer will apply: Under CLIA requirements, [facility] Pathology Laboratory is qualified to perform high complexity testing. For all ancillary stains, positive and negative controls stain appropriately. Performance characteristics of immunohistochemical and chromogenic in-situ hybridization tests have been determined by [facility] Pathology Laboratory. These tests are used for clinical purposes, They should not be regarded as investigational or for research. Normal [facility] ([place]) URINE CULTURE [CCL]on 2022 Bacteria identified Cx [...] and its performance characteristics determined by the [facility] [place] ([facility] It has not been cleared or approved by the FDA. -[facility] is regulated under CLIA as qualified to perform high-complexity testing. This test is used for clinical purposes. It should not be regarded as investigational or for research. SOURCE: URINE [facility] [address] [place] [address] Elgin Long III, M.D. [id number] SEND TO IC NO Normal [facility] Comment on above: Performed By: #### 2 06046 #### [facility],[address] [place] [address] 97981 BMP with MG DAILYon 11-20-19 23 AGE 77 years Normal [facility] Comment on above: Performed By: #### 2 96120 #### [facility],[address] [place] [address] 24441 Anion gap [Moles/Vol] 12 mmol/L Normal - [facility] Comment on above: Performed By: #### 2 70149 #### [facility],[address] [place] [address] 15387 BMP with MG DAILY Normal [facility] Comment on above: Result Comment: BASPopeye C METABOLIC PANEL Performed By: #### 2 19217 #### [facility],[address] [place] [address] 90971 Calcium [Mass/Vol] 8.2 mg/dL Low 8.5 - 10.1 [facility] Comment on above: Performed By: #### 2 96354 #### [facility],[address] [place] [address] 13411 Chloride [Moles/Vol] 112 mmol/L High 98 - 107 [facility] Comment on above: Performed By: #### 2 78783 #### [facility],[address] [place] [address] 98653 CO2 [Moles/Vol] 23.8 mmol/L Normal 21.0 - 32.0 [facility] Comment on above: Performed By: #### 2 42849 #### [facility],[address] [place] [address] 47438 Creatinine [Mass/Vol] 0.73 mg/dL Normal 0.55 - 1.02 [facility] Comment on above: Performed By: #### 2 82834 #### [facility],[address] [place] [address] 99449 GFR/1.73 sq M.predicted among non-blacks MDRD (S/P/Bld) [Vol rate/Area] mL/min/{1.73_m2} Normal 60 - 999 [facility] Comment on above: Performed By: #### 2 59751 #### [facility],[address] [place] [address] 59590 Result Comment: {LL] {II] {HH] ACCORDING TO THE NATIONAL KIDNEY DISEASE EDUCATION PROGRAM(NKDE), A NORMAL eGFR IS A VALUE GREATER THAN OR EQUAL TO 60 ML/MIN/1.73 SQ METERS. CHRONIC KIDNEY DISEASE: <60mL/MIN/1.73 SQ METERS KIDNEY FAILURE: <15mL/MIN/1.73 SQ METERS THIS TEST SHOULD ONLY BE USED FOR PATIENTS 18 YEARS OF AGE AND OLDER. Glucose [Mass/Vol] 94 mg/dL Normal 74 - 106 [facility] Comment on above: Performed By: #### 2 76922 #### [address] [address] Magnesium [Mass/Vol] 1.8 mg/dL Normal 1.8 - 2.4 [facility] Comment on above: Performed By: #### 2 65446 #### [address] [address] Potassium [Moles/Vol] 4.0 mmol/L Normal 3.5 - 5.1 [facility] Comment on above: Performed By: #### 2 68075 #### [address] [address] Sodium [Moles/Vol] 144 mmol/L Normal 136 - 145 [facility] Comment on above: Performed By: #### 2 05021 #### [address] [address] Urea nitrogen [Mass/Vol] 6 mg/dL Low 7 - 18 [facility] Comment on above: Performed By: #### 2 86021 #### [address] [address] CBC + DIFFon 11-19-2022 Baso # 0.10 x10EE3/UL Normal 0.00 - 0.10 [facility] Comment on above: Performed By: #### 2 34088 #### [address] [address] Basophils/100 WBC (Bld) 0.6 % Normal 0.0 - 2.0 [facility] Comment on above: Performed By: #### 2 79550 #### [facility],[address] [place] [address] 22898 CBC + DIFF Normal [facility] Comment on above: Result Comment: CBC- COMPLETE BLOOD COUNT Performed By: #### 2 69197 #### [facility],[address] [place] [address] 07097 EO # 0.40 x10EE3/UL Normal 0.00 - 0.50 [facility] Comment on above: Performed By: #### 2 96639 #### [facility],[address] [place] [address] 35382 Eosinophils/100 WBC (Bld) 3.3 % Normal 0.0 - 7.0 [facility] Comment on above: Performed By: #### 2 96278 #### [facility],[address] [place] [address] 21733 Erythrocyte distribution width (RBC) [Ratio] 13.3 % Normal 12.0 - 15.6 [facility] Comment on above: Performed By: #### 2 11657 #### [facility],[address] [place] [address] 61117 Hematocrit (Bld) [Volume fraction] 34.3 % Normal 34.0 - 46.0 [facility] Comment on above: Performed By: #### 2 70486 #### [facility],[address] [place] [address] 99638 Hemoglobin (Bld) [Mass/Vol] 11.6 g/dL Low 12.0 - 16.0 [facility] Comment on above: Performed By: #### 2 63885 #### [facility],[address] [place] [address] 56937 Lymph # 2.40 x10EE3/UL Normal 0.80 - 2.80 [facility] Comment on above: Performed By: #### 2 48986 #### [facility],[address] [place] [address] 88035 Lymphocytes/100 WBC (Bld) 21.6 % Normal 20.0 - 45.0 [facility] Comment on above: Performed By: #### 2 68209 #### [facility],[address] [place] [address] MANUAL DIFF N/A Normal [facility] Comment on above: Performed By: #### 2 97024 #### [facility],[address] [place] [address] MCH (RBC) [Entitic mass] 29 pg Normal 27 - 33 [facility] Comment on above: Performed By: #### 2 54632 #### [facility],[address] [place] [address] MCHC 34 X10 3 Normal 32 - 36 [facility] Comment on above: Performed By: #### 2 59382 #### [facility],[address] [place] [address] MCV (RBC) [Entitic vol] 86 fL Normal 80 - 99 [facility] Comment on above: Performed By: #### 2 14107 #### [facility],[address] [place] [address] Bulloch # 0.70 x10EE3/UL Normal 0.20 - 1.00 [facility] Comment on above: Performed By: #### 2 34923 #### [facility],[address] [place] [address] MONOS % 6.2 % Normal 0.0 - 10.0 [facility] Comment on above: Performed By: #### 2 35508 #### [facility],[address] [place] [address] Morphology Kali (Bld) [Interp] N/A Normal [facility] Comment on above: Result Comment: {CD] Performed By: #### 2 43787 #### [facility],[address] [place] [address] Neut # 7.40 x10EE3/UL High 1.50 - 7.10 [facility] Comment on above: Performed By: #### 2 00162 #### [facility],[address] [place] [address] 08632 Neutrophils/100 WBC (Bld) 68.3 % Normal 46.0 - 76.0 [facility] Comment on above: Performed By: #### 2 61108 #### [facility],[address] [place] [address] 28729 PLATELET 240 x10EE3/UL Normal 150 - 450 [facility] Comment on above: Performed By: #### 2 82659 #### [facility],[address] [place] [address] 42333 Platelet mean volume (Bld) [Entitic vol] 7.0 fL Normal 6.6 - 10.5 [facility] Comment on above: Result Comment: AUTO MATED DIFFERENTIAL Performed By: #### 2 71306 #### [facility],[address] [place] [address] 31329 RBC 3.97 x 10EE6/UL Low 4.10 - 5.30 [facility] Comment on above: Performed By: #### 2 06971 #### [facility],[address] [place] [address] 33315 WBC 10.9 x 10EE3/UL High 4.5 - 10.8 [facility] Comment on above: Performed By: #### 2 06510 #### [facility],[address] [place] [address] 24661 BMP with MG DAILYon 11-19-19 23 AGE 77 years Normal [facility] Comment on above: Performed By: #### 2 10803 #### [facility],[address] [place] [address] 14512 Anion gap [Moles/Vol] 15 mmol/L Normal 10 - 20 [facility] Comment on above: Performed By: #### 2 57899 #### [facility],[address] [place] [address] 27635 BMP with MG DAILY Normal [facility] Comment on above: Result Comment: BASI C METABOLIC PANEL Performed By: #### 2 33678 #### [facility],[address] [place] [address] Calcium [Mass/Vol] 8.8 mg/dL Normal 8.5 - 10.1 [facility] Comment on above: Performed By: #### 2 65833 #### [facility],[address] [place] [address] Chloride [Moles/Vol] 110 mmol/L High 98 - 107 [facility] Comment on above: Performed By: #### 2 83207 #### [facility],[address] [place] [address] CO2 [Moles/Vol] 22.9 mmol/L Normal 21.0 - 32.0 [facility] Comment on above: Performed By: #### 2 15257 #### [facility],[address] [place], [place] [address] Creatinine [Mass/Vol] 0.82 mg/dL Normal 0.55 - 1.02 [facility] Comment on above: Performed By: #### 2 25885 #### [facility],[address] [place], [place] [address] GFR/1.73 sq M.predicted among non-blacks MDRD (S/P/Bld) [Vol rate/Area] mL/min/{1.73_m2} Normal 60 - 999 [facility] Comment on above: Performed By: #### 2 44826 #### [facility],[address] [place] [address] Result Comment: {LL] {II] {HH] ACCORDING TO THE NATIONAL KIDNEY DISEASE EDUCATION PROGRAM(NKDE), A NORMAL eGFR IS A VALUE GREATER THAN OR EQUAL TO 60 ML/MIN/1.73 SQ METERS. CHRONIC KIDNEY DISEASE: <60mL/MIN/1.73 SQ METERS KIDNEY FAILURE: <15mL/MIN/1.73 SQ METERS THIS TEST SHOULD ONLY BE USED FOR PATIENTS 18 YEARS OF AGE AND OLDER. Glucose [Mass/Vol] 101 mg/dL Normal 74 - 106 [facility] Comment on above: Performed By: #### 2 95333 #### [facility],[address] [place] [address] 58719 Magnesium [Mass/Vol] 2.0 mg/dL Normal 1.8 - 2.4 [facility] Comment on above: Performed By: #### 2 83946 #### [facility],[address] [place] [address] 37651 Potassium [Moles/Vol] 3.8 mmol/L Normal 3.5 - 5.1 [facility] Comment on above: Performed By: #### 2 90240 #### [facility],[address] [place] [address] 57601 Sodium [Moles/Vol] 144 mmol/L Normal 136 - 145 [facility] Comment on above: Performed By: #### 2 63249 #### [facility],[address] [place], [place] [address] Urea nitrogen [Mass/Vol] 12 mg/dL Normal 7 - 18 [facility] Comment on above: Performed By: #### 2 71134 #### [facility],[address] [place] [address] 49738 CBC + DIFFon 11-18-2022 Baso # 0.10 x10EE3/UL Normal 0.00 - 0.10 [facility] Comment on above: Performed By: #### 2 54741 #### [facility],[address] [place] [address] 61733 Basophils/100 WBC (Bld) 0.9 % Normal 0.0 - 2.0 [facility] Comment on above: Performed By: #### 2 45272 #### [facility],[address] [place] [address] 35485 CBC + DIFF Normal [facility] Comment on above: Result Comment: CBC- COMPLETE BLOOD COUNT Performed By: #### 2 48194 #### [facility],[address] [place] [address] 68850 EO # 0.20 x10EE3/UL Normal 0.00 - 0.50 [facility] Comment on above: Performed By: #### 2 77740 #### [facility],[address] [place] [address] 99351 Eosinophils/100 WBC (Bld) 1.2 % Normal 0.0 - 7.0 [facility] Comment on above: Performed By: #### 2 67113 #### [facility],[address] [place], [place] [address] Erythrocyte distribution width (RBC) [Ratio] 13.1 % Normal 12.0 - 15.6 [facility] Comment on above: Performed By: #### 2 10965 #### [facility],[address] [place] [address] Hematocrit (Bld) [Volume fraction] 39.9 % Normal 34.0 - 46.0 [facility] Comment on above: Performed By: #### 2 55053 #### [facility],[address] [place] [address] Hemoglobin (Bld) [Mass/Vol] 13.0 g/dL Normal 12.0 - 16.0 [facility] Comment on above: Performed By: #### 2 33018 #### [facility],[address] [place] [address] 33039 Lymph # 2.70 x10EE3/UL Normal 0.80 - 2.80 [facility] Comment on above: Performed By: #### 2 62343 #### [facility],[address] [place] [address] 31710 Lymphocytes/100 WBC (Bld) 19.6 % Low 20.0 - 45.0 [facility] Comment on above: Performed By: #### 2 54652 #### [facility],[address] [place], [place] [address] MANUAL DIFF N/A Normal [facility] Comment on above: Performed By: #### 2 00262 #### [facility],[address] [place] [address] 99067 MCH (RBC) [Entitic mass] 28 pg Normal 27 - 33 [facility] Comment on above: Performed By: #### 2 78199 #### [facility],[address] [place] [address] 75009 MCHC 33 X10 3 Normal 32 - 36 [facility] Comment on above: Performed By: #### 2 46220 #### [facility],[address] [place] [address] 80093 MCV (RBC) [Entitic vol] 87 fL Normal 80 - 99 [facility] Comment on above: Performed By: #### 2 38088 #### [facility],[address] [place] [address] 74122 Bulloch # 1.10 x10EE3/UL High 0.20 - 1.00 [facility] Comment on above: Performed By: #### 2 39802 #### [facility],[address] [place] [address] 61373 MONOS % 8.0 % Normal 0.0 - 10.0 [facility] Comment on above: Performed By: #### 2 12997 #### [facility],[address] [place] [address] 56471 Morphology Kali (Bld) [Interp] N/A Normal [facility] Comment on above: Result Comment: {CD] Performed By: #### 2 50674 #### [facility],[address] [place] [address] 75234 Neut # 9.70 x10EE3/UL High 1.50 - 7.10 [facility] Comment on above: Performed By: #### 2 11606 #### [facility],[address] [place] [address] 49351 Neutrophils/100 WBC (Bld) 70.3 % Normal 46.0 - 76.0 [facility] Comment on above: Performed By: #### 2 26349 #### [facility],[address] [place] [address] 65281 PLATELET 258 x10EE3/UL Normal 150 - 450 [facility] Comment on above: Performed By: #### 2 40173 #### [facility],[address] [place] [address] 18556 Platelet mean volume (Bld) [Entitic vol] 7.0 fL Normal 6.6 - 10.5 [facility] Comment on above: Result Comment: AUTO MATED DIFFERENTIAL Performed By: #### 2 10192 #### [facility],[address] [place] [address] 70814 RBC 4.61 x 10EE6/UL Normal 4.10 - 5.30 [facility] Comment on above: Performed By: #### 2 07412 #### [facility],[address] [place] [address] 04964 WBC 13.8 x 10EE3/UL High 4.5 - 10.8 [facility] Comment on above: Performed By: #### 2 21500 #### [facility],[address] [place] [address] 51891 APTTon 11-17-2022 aPTT Coag (Bld) [Time] 24.0 s Low 25.4 - 38.4 [facility] Comment on above: Performed By: #### 2 95902 #### [facility],[address] [place] [address] 84088 C-REACTIVE PROTEINon 023 CRP [Mass/Vol] mg/L Normal 0.00 - 0.90 [facility] Comment on above: Performed By: #### 2 18948 #### [facility],[address] [place] [address] 62405 CBC + DIFFon 11-17-2022 Baso # 0.10 x10EE3/UL Normal 0.00 - 0.10 [facility] Comment on above: Performed By: #### 2 39199 #### [facility],[address] [place] [address] 54882 Basophils/100 WBC (Bld) 0.7 % Normal 0.0 - 2.0 [facility] Comment on above: Performed By: #### 2 71775 #### [facility],[address] [place] [address] CBC + DIFF Normal [facility] Comment on above: Result Comment: CBC- COMPLETE BLOOD COUNT Performed By: #### 2 57683 #### [facility],[address] [place] [address] EO # 0.10 x10EE3/UL Normal 0.00 - 0.50 [facility] Comment on above: Performed By: #### 2 64615 #### [facility],[address] [place] [address] Eosinophils/100 WBC (Bld) 0.5 % Normal 0.0 - 7.0 [facility] Comment on above: Performed By: #### 2 54005 #### [facility],[address] [place] [address] Erythrocyte distribution width (RBC) [Ratio] 13.2 % Normal 12.0 - 15.6 [facility] Comment on above: Performed By: #### 2 35889 #### [facility],[address] [place] [address] Hematocrit (Bld) [Volume fraction] 42.6 % Normal 34.0 - 46.0 [facility] Comment on above: Performed By: #### 2 70044 #### [facility],[address] [place] [address] Hemoglobin (Bld) [Mass/Vol] 14.0 g/dL Normal 12.0 - 16.0 [facility] Comment on above: Performed By: #### 2 91428 #### [facility],[address],[place] [address] Lymph # 3.00 x10EE3/UL High 0.80 - 2.80 [facility] Comment on above: Performed By: #### 2 65162 #### [place] [address] Lymphocytes/100 WBC (Bld) 18.2 % Low 20.0 - 45.0 [facility] Comment on above: Performed By: #### 2 55618 #### [facility],[address] [place] [address] MANUAL DIFF N/A Normal [facility] Comment on above: Performed By: #### 2 04121 #### [place] [address] MCH (RBC) [Entitic mass] 28 pg Normal 27 - 33 [facility] Comment on above: Performed By: #### 2 73490 #### [place] [address] MCHC 33 X10 3 Normal 32 - 36 [facility] Comment on above: Performed By: #### 2 17443 #### [place] [address] MCV (RBC) [Entitic vol] 86 fL Normal 80 - 99 [facility] Comment on above: Performed By: #### 2 99195 #### [facility],[address] [place] [address] Bulloch # 1.00 x10EE3/UL Normal 0.20 - 1.00 [facility] Comment on above: Performed By: #### 2 50531 #### [place] [address] MONOS % 6.0 % Normal 0.0 - 10.0 [facility] Comment on above: Performed By: #### 2 71725 #### [place] [address] Morphology Kali (Bld) [Interp] N/A Normal [facility] Comment on above: Result Comment: {CD] Performed By: #### 2 14533 #### [facility],[address] [place] [address] 82670 Neut # 12.10 x10EE3/UL High 1.50 - 7.10 [facility] Comment on above: Performed By: #### 2 88511 #### [facility],[address] [place] [address] 61833 Neutrophils/100 WBC (Bld) 74.6 % Normal 46.0 - 76.0 [facility] Comment on above: Performed By: #### 2 68507 #### [facility],[address] [place] [address] PLATELET 298 x10EE3/UL Normal 150 - 450 [facility] Comment on above: Performed By: #### 2 13567 #### [facility],[address] [place] [address] Platelet mean volume (Bld) [Entitic vol] 7.3 fL Normal 6.6 - 10.5 [facility] Comment on above: Result Comment: AUTO MATED DIFFERENTIAL Performed By: #### 2 08334 #### [address] [address] RBC 4.94 x 10EE6/UL Normal 4.10 - 5.30 [facility] Comment on above: Performed By: #### 2 91534 #### [facility],[address] [place] [address] 34867 WBC 16.3 x 10EE3/UL High 4.5 - 10.8 [facility] Comment on above: Performed By: #### 2 56461 #### [facility],[address] [place] [address] 15486 CMP with eGFRon 11-17-2022 AGE 77 years Normal [facility] Comment on above: Performed By: #### 2 41100 #### [place] [address],[place] [address] Albumin [Mass/Vol] 3.7 g/dL Normal 3.4 - 5.0 [facility] Comment on above: Performed By: #### 2 23547 #### [facility],[address] [place] [address] 88486 Albumin/Globulin [Mass ratio] 1.1 {ratio} Normal 0.9 - 1.6 [facility] Comment on above: Performed By: #### 2 29091 #### [facility],[address] [place] [address] 72041 ALK PHOS 44 U/L Low 46 - 116 [facility] Comment on above: Performed By: #### 2 77768 #### [facility],[address] [place] [address] 36807 ALT [Catalytic activity/Vol] 22 U/L Normal 14 - 59 [facility] Comment on above: Performed By: #### 2 57117 #### [facility],[address] [place] [address] 22592 Anion gap [Moles/Vol] 14 mmol/L Normal 10 - 20 [facility] Comment on above: Performed By: #### 2 17200 #### [facility],[address] [place] [address] 63664 AST [Catalytic activity/Vol] 20 U/L Normal 13 - 39 [facility] Comment on above: Performed By: #### 2 21375 #### [facility],[address] [place] [address] 73558 B/C RATIO 20 ratio Normal 0 - 30 [facility] Comment on above: Performed By: #### 2 87542 #### [facility],[address] [place] [address] 52571 Bilirubin [Mass/Vol] 0.4 mg/dL Normal 0.2 - 1.0 [facility] Comment on above: Performed By: #### 2 04448 #### [facility],[address] [place] [address] 03122 Calcium [Mass/Vol] 8.9 mg/dL Normal 8.5 - 10.1 [facility] Comment on above: Performed By: #### 2 81282 #### [facility],[address] [place] [address] 99896 Chloride [Moles/Vol] 105 mmol/L Normal 98 - 107 [facility] Comment on above: Performed By: #### 2 86443 #### [facility],[address] [place] [address] 90390 CMP with eGFR Normal [facility] Comment on above: Result Comment: COMP REHENSIVE METABOLIC PANEL Performed By: #### 2 18378 #### [facility],[address] [place] [address] 05423 CO2 [Moles/Vol] 27.9 mmol/L Normal 21.0 - 32.0 [facility] Comment on above: Performed By: #### 2 72114 #### [facility],[address] [place] [address] 21147 Creatinine [Mass/Vol] 0.85 mg/dL Normal 0.55 - 1.02 [facility] Comment on above: Performed By: #### 2 34351 #### [facility],[address] [place] [address] 88534 GFR/1.73 sq M.predicted among non-blacks MDRD (S/P/Bld) [Vol rate/Area] mL/min/{1.73_m2} Normal 60 - 999 [facility] Comment on above: Performed By: #### 2 27467 #### [facility],[address] [place] [address] 23543 Result Comment: ACCO RDING TO THE NATIONAL KIDNEY DISEASE EDUCATION PROGRAM(NKDE), A NORMAL eGFR IS A VALUE GREATER THAN OR EQUAL TO 60 ML/MIN/1.73 SQ METERS. CHRONIC KIDNEY DISEASE: <60mL/MIN/1.73 SQ METERS KIDNEY FAILURE: <15mL/MIN/1.73 SQ METERS THIS TEST SHOULD ONLY BE USED FOR PATIENTS 18 YEARS OF AGE AND OLDER. Globulin (S) [Mass/Vol] 3.5 g/dL Normal 1.5 - 3.8 [facility] Comment on above: Performed By: #### 2 11407 #### [facility],[address] [place] [address] 58138 Glucose [Mass/Vol] 102 mg/dL Normal 74 - 106 [facility] Comment on above: Performed By: #### 2 15547 #### [facility],[address] [place] [address] 52011 Potassium [Moles/Vol] 3.7 mmol/L Normal 3.5 - 5.1 [facility] Comment on above: Performed By: #### 2 44932 #### [facility],[address] [place] [address] 65564 Protein [Mass/Vol] 7.2 g/dL Normal 6.4 - 8.2 [facility] Comment on above: Performed By: #### 2 53622 #### [facility],[address] [place] [address] 19406 Sodium [Moles/Vol] 143 mmol/L Normal 136 - 145 [facility] Comment on above: Performed By: #### 2 24962 #### [facility],[address] [place] [address] 78255 Urea nitrogen [Mass/Vol] 17 mg/dL Normal 7 - 18 [facility] Comment on above: Performed By: #### 2 43016 #### [facility],[address] [place] [address] ABDOMEN/PELVIS [facility] 2022 CT ABDOMEN/PELVIS [place] [address] Patient: ZOILA WEBSTER Phone#: : [phone] Age: 77 Gender: F Pt. Type: ER Account: [id number] Location: 052 Ordering: ROSALIA YulisaOlga NALINIMARIA ISABEL Exam Date: 11/17/2022/21:35 Family Phys: Charge Code: 584329 Physician: Gilchrist Order #: [id number] Dose#: 10.0 PROCEDURE: CT ABDOMEN/PELVIS WITH CONTRAST COMPARISON: [facility], CT, ABDOMEN/PELVIS W CON, 03/21/2021, 21:25. [...] 77 Gender: F Pt. Type: ER Account: [id number] Location: 052 Ordering: ROSALIA YulisaOlga NALINIMARIA ISABEL Exam Date: 11/17/2022/21:35 Family Phys: Charge Code: 730852 Physician: Gilchrist Order #: [id number] Dose#: 10.0 OTHER: Negative. CONCLUSION: 1. Findings consistent with nonspecific colitis involving the descending and rectosigmoid colon. 2. Hepatic cysts. 3. Probable uterine fibroid. Dictated by: Ayah Santamaria MD on 11/18/2022 at 9:45 Approved by: Ayah Santamaria MD on 11/18/2022 at 9:50 Normal [facility] LIPASEon 11-17-2022 Lipase [Catalytic activity/Vol] 113.0 U/L Normal 73.0 - 393 [facility] Comment on above: Performed By: #### 2 67019 #### [place] [id number] PROTHROMBIN TIME AND INRon 0 11-17-2022 INR Coag (PPP) [Relative time] 1.0 {INR} Normal 0.8 - 1.2 [facility] Comment on above: Result Comment: T [...] MECHANICAL HEART VALVES Performed By: #### 2 15864 #### [facility],[address] [place], [place] [id number] PROTHROMBIN TIME AND INR Normal [facility] Comment on above: Result Comment: PROT HROMBIN TIME AND INR Performed By: #### 2 76865 #### [facility],[address] [place] [address] 12675 PT-COUMADIN 11.8 sec Normal 9.3 - 14.1 [facility] Comment on above: Performed By: #### 2 31245 #### [place] [id number] TROPONIN I, HIGH SENSITIVITY on 11-17-2022 HS TROPONIN 6.1 pg/mL Normal 0.0 - 51.4 [facility] Comment on above: Performed By: #### 2 71997 #### [facility],[address] [place] [address] 77679 URINALYSISon 11-17-2022 Amorphous NONE Normal [facility] Comment on above: Performed By: #### 2 33004 #### [facility],[address] [place], [place] [id number] Bacteria 4+ Normal [facility] Comment on above: Performed By: #### 2 41228 #### [facility],[address] [place], [place] [address] Bilirubin Ql (U) Negative Normal NORMAL: NEGATIVE [facility] Comment on above: Performed By: #### 2 42018 #### [facility],[address] [place] [address] Casts NONE Normal [facility] Comment on above: Performed By: #### 2 05958 #### [facility],[address] [place] [address] 19962 Clarity (U) clear Normal NORMAL: CLEAR [facility] Comment on above: Performed By: #### 2 28567 #### [facility],[address] [place] [address] 59385 Color (U) p.yel Normal NORMAL: YELLOW [facility] Comment on above: Performed By: #### 2 22803 #### [facility],[address] [place] [address] 91573 Crystals LM Nom (Urine sed) NONE Normal [facility] Comment on above: Performed By: #### 2 15266 #### [facility],[address] [place] [address] 62762 Epi Cells OCC Normal [facility] Comment on above: Performed By: #### 2 46121 #### [facility],[address] [place] [address] 95487 Glucose Ql (U) NORM Normal NORMAL: NORMAL [facility] Comment on above: Performed By: #### 2 38082 #### [facility],[address] [place] [address] 23260 Hemoglobin Ql (U) 25 Abnormal NORMAL: NEGATIVE [facility] Comment on above: Performed By: #### 2 33422 #### [facility],[address] [place] [address] 14360 Ketone Negative Normal NORMAL: NEGATIVE [facility] Comment on above: Performed By: #### 2 41017 #### [facility],[address] [place] [address] 65039 Leukocytes 100 Abnormal NORMAL: NEGATIVE [facility] Comment on above: Performed By: #### 2 60913 #### [facility],[address] [place] [address] 37537 Mucous NONE Normal [facility] Comment on above: Performed By: #### 2 36019 #### [facility],[address] [place] [address] 71933 Nitrite Ql (U) Positive Normal NORMAL: NEGATIVE [facility] Comment on above: Performed By: #### 2 96271 #### [facility],[address] [place] [address] 57372 pH (U) 6 [pH] Normal NORMAL: 5.0-8.0 [facility] Comment on above: Performed By: #### 2 11226 #### [facility],[address] [place] [address] 70857 Protein Ql (U) Negative Normal NORMAL: NEGATIVE [facility] Comment on above: Performed By: #### 2 94630 #### [facility],[address] [place] [address] 56779 Rbc 0-5 Normal 0-3/hpf [facility] Comment on above: Performed By: #### 2 78094 #### [facility],[address] [place] [address] 84658 Sp [place] 1.005 Low NORMAL: 1.010-1.03 0 [facility] Comment on above: Performed By: #### 2 65040 #### [facility],[address] [place] [address] Specimen Type Clean catch Normal [facility] Comment on above: Performed By: #### 2 88613 #### [facility],[address] [place] [address] Urinalysis dipstick W Reflex Microscopic panel (U) SEE BELOW Normal [facility] Comment on above: Result Comment: MICR OSCOPIC Performed By: #### 2 25264 #### [facility],[address] [place] [address] Urobilinog NORM Normal NORMAL: NORMAL [facility] Comment on above: Performed By: #### 2 02092 #### [facility],[address] [place] [address] Wbc 6-10 Normal 0-5/hpf [facility] Comment on above: Performed By: #### 2 94032 #### [facility],[address] [place] [address] Yeast NONE Normal [facility] Comment on above: Performed By: #### 2 26985 #### [facility],[address] [place] [address] Vital Signs Date Time Vital Sign Value Performing Clinician Facility 03-09-2024 18:23-0500 Body temperature 98.49 [degF] Krislyn Aberegg PA Work Phone: [facility] 03-09-2024 18:23-0500 Diastolic blood pressure 80 mm[Hg] Krislyn Aberegg PA Work Phone: [facility] 03-09-2024 18:23-0500 Heart rate 108 /min Krislyn Aberegg PA Work Phone: [facility] 03-09-2024 18:23-0500 Respiratory rate 20 /min Krislyn Aberegg PA Work Phone: [facility] 03-09-2024 18:23-0500 SaO2% (BldA) [Mass fraction] 96 % Eun LOCKETT Work Phone: [facility] 03-09-2024 18:23-0500 Systolic blood pressure 120 mm[Hg] Eun LOCKETT Work Phone: [facility] 08-06-2023 16:48-0400 Body temperature 97 [degF] Indigo Casiano APRN.MANAGER PLAY Work Phone: [facility] 08-06-2023 16:48-0400 Diastolic blood pressure 62 mm[Hg] Indigo Casiano APRN.MANAGER [employer] Work Phone: [facility] 08-06-2023 16:48-0400 Heart rate 66 /min Indigo Casiano APRN.MANAGER [employer] Work Phone: [facility] 08-06-2023 16:48-0400 Respiratory rate 16 /min Indigo Casiano APRN.MANAGER [employer] Work Phone: [facility] 08-06-2023 16:48-0400 SaO2% (BldA) [Mass fraction] 98 % Indigo Casiano APRN.MANAGER [employer] Work Phone: [facility] 08-06-2023 16:48-0400 Systolic blood pressure 124 mm[Hg] Indigo Casiano APRN.MANAGER [employer] Work Phone: [facility] 07-29-2023 15:20-0400 Body temperature 96.8 [degF] [facility] 07-29-2023 15:20-0400 Diastolic blood pressure 75 mm[Hg] [facility] 07-29-2023 15:20-0400 Heart rate 88 /min [facility] 07-29-2023 15:20-0400 Respiratory rate 16 /min [facility] 07-29-2023 15:20-0400 SaO2% (BldA) [Mass fraction] 97 % [facility] 07-29-2023 15:20-0400 Systolic blood pressure 133 mm[Hg] [facility] 07-29-2023 12:36-0400 Body height 147.32 cm [facility] 07-28-2023 14:54-0400 Body temperature 96.8 [degF] [facility] 07-28-2023 14:54-0400 Diastolic blood pressure 76 mm[Hg] [facility] 07-28-2023 14:54-0400 Heart rate 88 /min [facility] 07-28-2023 14:54-0400 Respiratory rate 16 /min [facility] 07-28-2023 14:54-0400 SaO2% (BldA) [Mass fraction] 97 % [facility] 07-28-2023 14:54-0400 Systolic blood pressure 140 mm[Hg] [facility] 07-28-2023 13:08-0400 Body height 147.32 cm [facility] 07-27-2023 14:01-0400 Body temperature 97 [degF] [facility] 07-27-2023 14:01-0400 Diastolic blood pressure 66 mm[Hg] [facility] 07-27-2023 14:01-0400 Heart rate 84 /min [facility] 07-27-2023 14:01-0400 Respiratory rate 16 /min [facility] 07-27-2023 14:01-0400 SaO2% (BldA) [Mass fraction] 100 % [facility] 07-27-2023 14:01-0400 Systolic blood pressure 141 mm[Hg] [facility] 07-27-2023 12:15-0400 Body height 147.32 cm [facility] 07-26-2023 15:10-0400 Body temperature 97.4 [degF] [facility] 07-26-2023 15:10-0400 Diastolic blood pressure 70 mm[Hg] [facility] 07-26-2023 15:10-0400 Heart rate 100 /min [facility] 07-26-2023 15:10-0400 Respiratory rate 16 /min [facility] 07-26-2023 15:10-0400 SaO2% (BldA) [Mass fraction] 100 % [facility] 07-26-2023 15:10-0400 Systolic blood pressure 154 mm[Hg] [facility] 07-26-2023 13:20-0400 Body height 147.32 cm [facility] 07-23-2023 14:35-0400 Body temperature 97 [degF] [facility] 07-23-2023 14:35-0400 Diastolic blood pressure 94 mm[Hg] [facility] 07-23-2023 14:35-0400 Heart rate 91 /min [facility] 07-23-2023 14:35-0400 Respiratory rate 16 /min [facility] 07-23-2023 14:35-0400 SaO2% (BldA) [Mass fraction] 97 % [facility] 07-23-2023 14:35-0400 Systolic blood pressure 156 mm[Hg] [facility] 07-23-2023 12:45-0400 Body height 147.32 cm [facility] 07-22-2023 14:44-0400 Body temperature 96.6 [degF] [facility] 07-22-2023 14:44-0400 Diastolic blood pressure 74 mm[Hg] [facility] 07-22-2023 14:44-0400 Heart rate 81 /min [facility] 07-22-2023 14:44-0400 Respiratory rate 16 /min [facility] 07-22-2023 14:44-0400 SaO2% (BldA) [Mass fraction] 97 % [facility] 07-22-2023 14:44-0400 Systolic blood pressure 164 mm[Hg] [facility] 07-22-2023 13:00-0400 Body height 147.32 cm [facility] 07-21-2023 14:57-0400 Body temperature 97.2 [degF] [facility] 07-21-2023 14:57-0400 Diastolic blood pressure 81 mm[Hg] [facility] 07-21-2023 14:57-0400 Respiratory rate 16 /min [facility] 07-21-2023 14:57-0400 Systolic blood pressure 146 mm[Hg] [facility] 07-21-2023 13:09-0400 Body height 147.32 cm [facility] 07-21-2023 13:09-0400 Heart rate 88 /min [facility] 07-21-2023 13:09-0400 SaO2% (BldA) [Mass fraction] 98 % [facility] 07-20-2023 14:49-0400 Diastolic blood pressure 75 mm[Hg] [facility] 07-20-2023 14:49-0400 Heart rate 82 /min [facility] 07-20-2023 14:49-0400 Systolic blood pressure 168 mm[Hg] [facility] 07-20-2023 13:10-0400 Body height 147.32 cm [facility] 07-20-2023 13:10-0400 Body temperature 97.5 [degF] [facility] 07-20-2023 13:10-0400 Respiratory rate 16 /min [facility] 07-20-2023 13:10-0400 SaO2% (BldA) [Mass fraction] 97 % [facility] 07-19-2023 15:09-0400 Diastolic blood pressure 78 mm[Hg] [facility] 07-19-2023 15:09-0400 Heart rate 82 /min [facility] 07-19-2023 15:09-0400 Respiratory rate 16 /min [facility] 07-19-2023 15:09-0400 SaO2% (BldA) [Mass fraction] 98 % [facility] 07-19-2023 15:09-0400 Systolic blood pressure 147 mm[Hg] [facility] 07-19-2023 13:15-0400 Body height 147.32 cm [facility] 07-19-2023 13:15-0400 Body temperature 97.2 [degF] [facility] 07-18-2023 12:50-0400 Body temperature 97.2 [degF] [facility] 07-18-2023 12:50-0400 Diastolic blood pressure 58 mm[Hg] [facility] 07-18-2023 12:50-0400 Heart rate 87 /min [facility] 07-18-2023 12:50-0400 Respiratory rate 18 /min [facility] 07-18-2023 12:50-0400 SaO2% (BldA) [Mass fraction] 98 % [facility] 07-18-2023 12:50-0400 Systolic blood pressure 124 mm[Hg] [facility] 07-17-2023 15:28-0400 Body temperature 97.8 [degF] [facility] 07-17-2023 15:28-0400 Diastolic blood pressure 71 mm[Hg] [facility] 07-17-2023 15:28-0400 Heart rate 85 /min [facility] 07-17-2023 15:28-0400 Respiratory rate 18 /min [facility] 07-17-2023 15:28-0400 SaO2% (BldA) [Mass fraction] 100 % [facility] 07-17-2023 15:28-0400 Systolic blood pressure 155 mm[Hg] [facility] 07-17-2023 12:52-0400 Body temperature 97.8 [degF] [facility] 07-17-2023 12:52-0400 Diastolic blood pressure 55 mm[Hg] [facility] 07-17-2023 12:52-0400 Heart rate 99 /min [facility] 07-17-2023 12:52-0400 Respiratory rate 18 /min [facility] 07-17-2023 12:52-0400 SaO2% (BldA) [Mass fraction] 100 % [facility] 07-17-2023 12:52-0400 Systolic blood pressure 143 mm[Hg] [facility] 07-16-2023 14:18-0400 Body temperature 97 [degF] [facility] 07-16-2023 14:18-0400 Diastolic blood pressure 82 mm[Hg] [facility] 07-16-2023 14:18-0400 Heart rate 90 /min [facility] 07-16-2023 14:18-0400 Respiratory rate 16 /min [facility] 07-16-2023 14:18-0400 SaO2% (BldA) [Mass fraction] 98 % [facility] 07-16-2023 14:18-0400 Systolic blood pressure 129 mm[Hg] [facility] 07-16-2023 12:27-0400 Body height 147.32 cm [facility] 07-15-2023 14:35-0400 Body temperature 97 [degF] [facility] 07-15-2023 14:35-0400 Diastolic blood pressure 70 mm[Hg] [facility] 07-15-2023 14:35-0400 Heart rate 94 /min [facility] 07-15-2023 14:35-0400 Respiratory rate 16 /min [facility] 07-15-2023 14:35-0400 SaO2% (BldA) [Mass fraction] 98 % [facility] 07-15-2023 14:35-0400 Systolic blood pressure 146 mm[Hg] [facility] 07-15-2023 12:54-0400 Body height 147.32 cm [facility] 07-14-2023 15:01-0400 Heart rate 78 /min [facility] 07-14-2023 15:01-0400 Respiratory rate 16 /min [facility] 07-14-2023 13:15-0400 Body height 147.32 cm [facility] 07-14-2023 13:15-0400 Body temperature 97.6 [degF] [facility] 07-14-2023 13:15-0400 Diastolic blood pressure 64 mm[Hg] [facility] 07-14-2023 13:15-0400 SaO2% (BldA) [Mass fraction] 95 % [facility] 07-14-2023 13:15-0400 Systolic blood pressure 163 mm[Hg] [facility] 07-13-2023 15:30-0400 Body temperature 96.5 [degF] [facility] 07-13-2023 15:30-0400 Diastolic blood pressure 73 mm[Hg] [facility] 07-13-2023 15:30-0400 Heart rate 90 /min [facility] 07-13-2023 15:30-0400 Respiratory rate 16 /min [facility] 07-13-2023 15:30-0400 SaO2% (BldA) [Mass fraction] 100 % [facility] 07-13-2023 15:30-0400 Systolic blood pressure 169 mm[Hg] [facility] 07-13-2023 13:39-0400 Body height 147.32 cm [facility] 07-12-2023 14:37-0400 Body temperature 96.5 [degF] [facility] 07-12-2023 14:37-0400 Diastolic blood pressure 89 mm[Hg] [facility] 07-12-2023 14:37-0400 Heart rate 81 /min [facility] 07-12-2023 14:37-0400 Respiratory rate 16 /min [facility] 07-12-2023 14:37-0400 SaO2% (BldA) [Mass fraction] 97 % [facility] 07-12-2023 14:37-0400 Systolic blood pressure 135 mm[Hg] [facility] 07-12-2023 12:48-0400 Body height 147.32 cm [facility] 07-11-2023 13:15-0400 Body temperature 98.3 [degF] [facility] 07-11-2023 13:15-0400 Diastolic blood pressure 71 mm[Hg] [facility] 07-11-2023 13:15-0400 Heart rate 93 /min [facility] 07-11-2023 13:15-0400 Respiratory rate 18 /min [facility] 07-11-2023 13:15-0400 SaO2% (BldA) [Mass fraction] 98 % [facility] 07-11-2023 13:15-0400 Systolic blood pressure 125 mm[Hg] [facility] 07-10-2023 13:07-0400 Body height 147.32 cm [facility] 07-10-2023 13:07-0400 Body mass index (BMI) [Ratio] 22.9 kg/m2 [facility] 07-10-2023 13:07-0400 Body temperature 97.8 [degF] [facility] 07-10-2023 13:07-0400 Body weight 49.89 kg [facility] 07-10-2023 13:07-0400 Diastolic blood pressure 75 mm[Hg] [facility] 07-10-2023 13:07-0400 Heart rate 90 /min [facility] 07-10-2023 13:07-0400 Respiratory rate 18 /min [facility] 07-10-2023 13:07-0400 SaO2% (BldA) [Mass fraction] 99 % [facility] 07-10-2023 13:07-0400 Systolic blood pressure 141 mm[Hg] [facility] 07-09-2023 14:18-0400 Body temperature 96.1 [degF] [facility] 07-09-2023 14:18-0400 Diastolic blood pressure 92 mm[Hg] [facility] 07-09-2023 14:18-0400 Heart rate 84 /min [facility] 07-09-2023 14:18-0400 Respiratory rate 16 /min [facility] 07-09-2023 14:18-0400 SaO2% (BldA) [Mass fraction] 100 % [facility] 07-09-2023 14:18-0400 Systolic blood pressure 152 mm[Hg] [facility] 07-09-2023 12:34-0400 Body height 147.32 cm [facility] 07-09-2023 12:34-0400 Body mass index (BMI) [Ratio] 24 kg/m2 [facility] 07-09-2023 12:34-0400 Body weight 52.16 kg [facility] 07-08-2023 14:47-0400 Body temperature 97.4 [degF] [facility] 07-08-2023 14:47-0400 Diastolic blood pressure 76 mm[Hg] [facility] 07-08-2023 14:47-0400 Heart rate 86 /min [facility] 07-08-2023 14:47-0400 Respiratory rate 16 /min [facility] 07-08-2023 14:47-0400 SaO2% (BldA) [Mass fraction] 99 % [facility] 07-08-2023 14:47-0400 Systolic blood pressure 136 mm[Hg] [facility] 07-08-2023 13:08-0400 Body height 147.32 cm [facility] 07-07-2023 14:45-0400 Body temperature 97.9 [degF] [facility] 07-07-2023 14:45-0400 Diastolic blood pressure 79 mm[Hg] [facility] 07-07-2023 14:45-0400 Heart rate 98 /min [facility] 07-07-2023 14:45-0400 Respiratory rate 16 /min [facility] 07-07-2023 14:45-0400 Systolic blood pressure 141 mm[Hg] [facility] 07-07-2023 13:03-0400 Body height 147.32 cm [facility] 07-06-2023 15:10-0400 Body temperature 97.1 [degF] [facility] 07-06-2023 15:10-0400 Diastolic blood pressure 79 mm[Hg] [facility] 07-06-2023 15:10-0400 Heart rate 87 /min [facility] 07-06-2023 15:10-0400 Respiratory rate 16 /min [facility] 07-06-2023 15:10-0400 Systolic blood pressure 148 mm[Hg] [facility] 07-06-2023 13:24-0400 Body height 147.32 cm [facility] 07-06-2023 13:24-0400 SaO2% (BldA) [Mass fraction] 98 % [facility] 07-05-2023 15:03-0400 Body temperature 97.8 [degF] [facility] 07-05-2023 15:03-0400 Diastolic blood pressure 69 mm[Hg] [facility] 07-05-2023 15:03-0400 Heart rate 106 /min [facility] 07-05-2023 15:03-0400 Respiratory rate 16 /min [facility] 07-05-2023 15:03-0400 SaO2% (BldA) [Mass fraction] 98 % [facility] 07-05-2023 15:03-0400 Systolic blood pressure 141 mm[Hg] [facility] 07-05-2023 13:18-0400 Body height 147.32 cm [facility] 07-03-2023 13:21-0400 Body temperature 97.8 [degF] [facility] 07-03-2023 13:21-0400 Diastolic blood pressure 80 mm[Hg] [facility] 07-03-2023 13:21-0400 Heart rate 95 /min [facility] 07-03-2023 13:21-0400 Respiratory rate 18 /min [facility] 07-03-2023 13:21-0400 SaO2% (BldA) [Mass fraction] 98 % [facility] 07-03-2023 13:21-0400 Systolic blood pressure 138 mm[Hg] [facility] 07-02-2023 14:48-0400 Diastolic blood pressure 59 mm[Hg] [facility] 07-02-2023 14:48-0400 Heart rate 89 /min [facility] 07-02-2023 14:48-0400 Respiratory rate 16 /min [facility] 07-02-2023 14:48-0400 Systolic blood pressure 178 mm[Hg] [facility] 07-02-2023 13:06-0400 Body height 147.32 cm [facility] 07-02-2023 13:06-0400 Body temperature 97.9 [degF] [facility] 07-02-2023 13:06-0400 SaO2% (BldA) [Mass fraction] 97 % [facility] 07-01-2023 14:51-0400 Diastolic blood pressure 84 mm[Hg] [facility] 07-01-2023 14:51-0400 Heart rate 95 /min [facility] 07-01-2023 14:51-0400 Systolic blood pressure 141 mm[Hg] [facility] 07-01-2023 13:14-0400 Body height 147.32 cm [facility] 07-01-2023 13:14-0400 Body temperature 97.2 [degF] [facility] 07-01-2023 13:14-0400 Respiratory rate 16 /min [facility] 06-30-2023 14:56-0400 Diastolic blood pressure 72 mm[Hg] [facility] 06-30-2023 14:56-0400 Heart rate 105 /min [facility] 06-30-2023 14:56-0400 Respiratory rate 16 /min [facility] 06-30-2023 14:56-0400 Systolic blood pressure 132 mm[Hg] [facility] 06-30-2023 13:11-0400 Body height 147.32 cm [facility] 06-30-2023 13:11-0400 Body mass index (BMI) [Ratio] 21 kg/m2 [facility] 06-30-2023 13:11-0400 Body temperature 96.9 [degF] [facility] 06-30-2023 13:11-0400 Body weight 45.72 kg [facility] 06-30-2023 13:11-0400 SaO2% (BldA) [Mass fraction] 96 % [facility] 06-29-2023 15:16-0400 Diastolic blood pressure 58 mm[Hg] [facility] 06-29-2023 15:16-0400 Heart rate 88 /min [facility] 06-29-2023 15:16-0400 Systolic blood pressure 122 mm[Hg] [facility] 06-29-2023 13:25-0400 Body height 147.32 cm [facility] 06-29-2023 13:25-0400 Body mass index (BMI) [Ratio] 24 kg/m2 [facility] 06-29-2023 13:25-0400 Body temperature 96.9 [degF] [facility] 06-29-2023 13:25-0400 Body weight 52.16 kg [facility] 06-29-2023 13:25-0400 Respiratory rate 16 /min [facility] 06-29-2023 13:25-0400 SaO2% (BldA) [Mass fraction] 97 % [facility] 06-28-2023 14:09-0400 Body temperature 97.1 [degF] [facility] 06-28-2023 14:09-0400 Diastolic blood pressure 70 mm[Hg] [facility] 06-28-2023 14:09-0400 Heart rate 97 /min [facility] 06-28-2023 14:09-0400 Respiratory rate 16 /min [facility] 06-28-2023 14:09-0400 SaO2% (BldA) [Mass fraction] 99 % [facility] 06-28-2023 14:09-0400 Systolic blood pressure 139 mm[Hg] [facility] 06-28-2023 12:21-0400 Body height 147.32 cm [facility] 06-27-2023 13:08-0400 Diastolic blood pressure 67 mm[Hg] [facility] 06-27-2023 13:08-0400 Heart rate 96 /min [facility] 06-27-2023 13:08-0400 Systolic blood pressure 129 mm[Hg] [facility] 06-25-2023 14:58-0400 Body temperature 97.7 [degF] [facility] 06-25-2023 14:58-0400 Diastolic blood pressure 74 mm[Hg] [facility] 06-25-2023 14:58-0400 Heart rate 99 /min [facility] 06-25-2023 14:58-0400 Respiratory rate 16 /min [facility] 06-25-2023 14:58-0400 SaO2% (BldA) [Mass fraction] 99 % [facility] 06-25-2023 14:58-0400 Systolic blood pressure 136 mm[Hg] [facility] 06-25-2023 13:06-0400 Body height 147.32 cm [facility] 06-24-2023 14:59-0400 Body temperature 97.4 [degF] [facility] 06-24-2023 14:59-0400 Diastolic blood pressure 77 mm[Hg] [facility] 06-24-2023 14:59-0400 Heart rate 103 /min [facility] 06-24-2023 14:59-0400 Respiratory rate 16 /min [facility] 06-24-2023 14:59-0400 SaO2% (BldA) [Mass fraction] 99 % [facility] 06-24-2023 14:59-0400 Systolic blood pressure 146 mm[Hg] [facility] 06-24-2023 13:01-0400 Body height 147.32 cm [facility] 06-23-2023 15:08-0400 Body temperature 97.1 [degF] [facility] 06-23-2023 15:08-0400 Diastolic blood pressure 64 mm[Hg] [facility] 06-23-2023 15:08-0400 Heart rate 95 /min [facility] 06-23-2023 15:08-0400 Respiratory rate 16 /min [facility] 06-23-2023 15:08-0400 Systolic blood pressure 142 mm[Hg] [facility] 06-23-2023 13:15-0400 Body height 147.32 cm [facility] 06-23-2023 13:15-0400 SaO2% (BldA) [Mass fraction] 98 % [facility] 06-22-2023 15:28-0400 Body temperature 97.3 [degF] [facility] 06-22-2023 15:28-0400 Diastolic blood pressure 108 mm[Hg] [facility] 06-22-2023 15:28-0400 Heart rate 94 /min [facility] 06-22-2023 15:28-0400 Respiratory rate 14 /min [facility] 06-22-2023 15:28-0400 SaO2% (BldA) [Mass fraction] 98 % [facility] 06-22-2023 15:28-0400 Systolic blood pressure 144 mm[Hg] [facility] 06-22-2023 13:42-0400 Body height 147.32 cm [facility] 06-21-2023 14:48-0400 Diastolic blood pressure 52 mm[Hg] [facility] 06-21-2023 14:48-0400 Heart rate 80 /min [facility] 06-21-2023 14:48-0400 Systolic blood pressure 128 mm[Hg] [facility] 06-21-2023 13:06-0400 Body height 147.32 cm [facility] 06-21-2023 13:06-0400 Body temperature 97.2 [degF] [facility] 06-21-2023 13:06-0400 Respiratory rate 16 /min [facility] 06-21-2023 13:06-0400 SaO2% (BldA) [Mass fraction] 97 % [facility] 06-20-2023 13:24-0400 Body temperature 98.3 [degF] [facility] 06-20-2023 13:24-0400 Diastolic blood pressure 60 mm[Hg] [facility] 06-20-2023 13:24-0400 Heart rate 93 /min [facility] 06-20-2023 13:24-0400 Respiratory rate 16 /min [facility] 06-20-2023 13:24-0400 SaO2% (BldA) [Mass fraction] 99 % [facility] 06-20-2023 13:24-0400 Systolic blood pressure 126 mm[Hg] [facility] 06-19-2023 13:48-0400 Body temperature 97.5 [degF] [facility] 06-19-2023 13:48-0400 Diastolic blood pressure 73 mm[Hg] [facility] 06-19-2023 13:48-0400 Heart rate 85 /min [facility] 06-19-2023 13:48-0400 Respiratory rate 16 /min [facility] 06-19-2023 13:48-0400 SaO2% (BldA) [Mass fraction] 99 % [facility] 06-19-2023 13:48-0400 Systolic blood pressure 132 mm[Hg] [facility] 06-19-2023 13:18-0400 Body height 147.32 cm [facility] 06-19-2023 13:18-0400 Body mass index (BMI) [Ratio] 20.5 kg/m2 [facility] 06-19-2023 13:18-0400 Body weight 44.45 kg [facility] 06-18-2023 14:47-0400 Body temperature 96.9 [degF] [facility] 06-18-2023 14:47-0400 Diastolic blood pressure 79 mm[Hg] [facility] 06-18-2023 14:47-0400 Heart rate 93 /min [facility] 06-18-2023 14:47-0400 Respiratory rate 16 /min [facility] 06-18-2023 14:47-0400 SaO2% (BldA) [Mass fraction] 100 % [facility] 06-18-2023 14:47-0400 Systolic blood pressure 153 mm[Hg] [facility] 06-18-2023 13:02-0400 Body mass index (BMI) [Ratio] 20.9 kg/m2 [facility] 06-18-2023 13:02-0400 Body weight 45.35 kg [facility] 06-17-2023 15:16-0400 Diastolic blood pressure 65 mm[Hg] [facility] 06-17-2023 15:16-0400 Heart rate 88 /min [facility] 06-17-2023 15:16-0400 Systolic blood pressure 112 mm[Hg] [facility] 06-17-2023 13:33-0400 Body height 147.32 cm [facility] 06-17-2023 13:33-0400 Body temperature 97.4 [degF] [facility] 06-17-2023 13:33-0400 Respiratory rate 16 /min [facility] 06-17-2023 13:33-0400 SaO2% (BldA) [Mass fraction] 94 % [facility] 06-16-2023 15:07-0400 Diastolic blood pressure 64 mm[Hg] [facility] 06-16-2023 15:07-0400 Heart rate 65 /min [facility] 06-16-2023 15:07-0400 Systolic blood pressure 128 mm[Hg] [facility] 06-16-2023 13:25-0400 Body height 147.32 cm [facility] 06-16-2023 13:25-0400 Body temperature 97.1 [degF] [facility] 06-16-2023 13:25-0400 Respiratory rate 16 /min [facility] 06-16-2023 13:25-0400 SaO2% (BldA) [Mass fraction] 96 % [facility] 06-15-2023 15:07-0400 Body temperature 96.5 [degF] [facility] 06-15-2023 15:07-0400 Diastolic blood pressure 62 mm[Hg] [facility] 06-15-2023 15:07-0400 Heart rate 85 /min [facility] 06-15-2023 15:07-0400 Systolic blood pressure 128 mm[Hg] [facility] 06-15-2023 13:26-0400 Body height 147.32 cm [facility] 06-15-2023 13:26-0400 Respiratory rate 16 /min [facility] 06-15-2023 13:26-0400 SaO2% (BldA) [Mass fraction] 100 % [facility] 06-14-2023 13:53-0400 Body height 147.32 cm [facility] 06-14-2023 13:53-0400 Body temperature 97.5 [degF] [facility] 06-14-2023 13:53-0400 Diastolic blood pressure 66 mm[Hg] [facility] 06-14-2023 13:53-0400 Heart rate 88 /min [facility] 06-14-2023 13:53-0400 Respiratory rate 16 /min [facility] 06-14-2023 13:53-0400 Systolic blood pressure 131 mm[Hg] [facility] 06-12-2023 15:10-0400 SaO2% (BldA) [Mass fraction] 100 % [facility] 06-11-2023 16:19-0400 Body temperature 98.1 [degF] [facility] 06-11-2023 16:19-0400 Diastolic blood pressure 73 mm[Hg] [facility] 06-11-2023 16:19-0400 Heart rate 87 /min [facility] 06-11-2023 16:19-0400 Respiratory rate 18 /min [facility] 06-11-2023 16:19-0400 SaO2% (BldA) [Mass fraction] 100 % [facility] 06-11-2023 16:19-0400 Systolic blood pressure 156 mm[Hg] [facility] Encounters Encounter Date Encounter Type Care Provider Facility Start: 12-21-2024 End: 12-21-2024 ambulatory [facility] Facility:[facility] Start: 12-14-2024 End: 12-14-2024 ambulatory HARI [place] Facility:[facility] Start: 04-13-2024 End: 04-13-2024 Telephone encounter Mirella Knight RN [facility] Comment on above: Care Coordination (L kofi Nodule Follow Up) Start: 04-03-2024 End: 04-08-2024 ambulatory Julia Lee Facility:[facility] Start: 03-19-2024 ambulatory Buck Mcdaniels Facility: [facility] Start: 03-19-2024 End: 03-21-2024 Evaluation and management of inpatient Buck Mcdaniels Facility:[facility] Start: 03-09-2024 End: 03-09-2024 ambulatory SULMA MALONE Facility:[facility] Start: 03-09-2024 End: 03-09-2024 Patient encounter procedure Eun Thomas PA Work Phone: [facility] Comment on above: Intertrigo (Primary Dx) Start: 01-27-2024 End: 01-28-2024 ambulatory NADYA PRABHAKAR Facility:[id number] Start: 01-26-2024 End: 01-27-2024 Emergency department patient visit Nadya Prabhakar Facility:[facility] Start: 01-26-2024 End: 01-26-2024 ambulatory ANNAMARIA LAGUERRE Facility:[facility] Start: 09-09-2023 End: 09-13-2023 ambulatory SULMA MALONE Facility:B Start: 09-09-2023 End: 09-13-2023 Outreach Lab MOLINA FAITH MD [facility] Start: 08-06-2023 End: 08-06-2023 Patient encounter procedure Indigo Casiano APRN.CNP Work Phone: [facility] Comment on above: Fungal infection (Pr imary Dx) Start: 07-29-2023 End: 07-29-2023 Patient encounter procedure [facility] Work Phone: Start: 07-29-2023 End: 07-29-2023 ambulatory [facility] Work Phone: Start: 07-28-2023 End: 07-28-2023 Patient encounter procedure [facility] Work Phone: Start: 07-28-2023 End: 07-28-2023 ambulatory Roman [facility] Work Phone: Start: 07-27-2023 End: 07-27-2023 Patient encounter procedure [facility] Work Phone: Start: 07-27-2023 End: 07-27-2023 ambulatory Sulma Faganer [facility] Work Phone: Start: 07-26-2023 End: 07-26-2023 Patient encounter procedure [facility] Work Phone: Start: 07-26-2023 End: 07-26-2023 ambulatory [facility] Work Phone: Start: 07-25-2023 End: 07-25-2023 Patient encounter procedure [facility] Work Phone: Start: 07-25-2023 End: 07-25-2023 ambulatory [facility] Work Phone: Start: 07-24-2023 End: 07-24-2023 Patient encounter procedure [facility] Work Phone: Start: 07-24-2023 End: 07-24-2023 ambulatory [facility] Work Phone: Start: 07-23-2023 End: 07-23-2023 Patient encounter procedure [facility] Work Phone: Start: 07-23-2023 End: 07-23-2023 ambulatory [facility] Work Phone: Start: 07-22-2023 End: 07-22-2023 Patient encounter procedure [facility] Work Phone: Start: 07-22-2023 End: 07-22-2023 ambulatory [facility] Work Phone: Start: 07-21-2023 End: 07-21-2023 Patient encounter procedure [facility] Work Phone: Start: 07-21-2023 End: 07-21-2023 ambulatory [facility] Work Phone: Start: 07-20-2023 End: 07-20-2023 Patient encounter procedure [facility] Work Phone: Start: 07-20-2023 End: 07-20-2023 ambulatory Sulma Catherine [facility] Work Phone: Start: 07-19-2023 End: 07-19-2023 Patient encounter procedure [facility] Work Phone: Start: 07-19-2023 End: 07-19-2023 ambulatory [facility] Work Phone: Start: 07-18-2023 End: 07-18-2023 Patient encounter procedure [facility] Work Phone: Start: 07-18-2023 End: 07-18-2023 ambulatory [facility] Work Phone: Start: 07-17-2023 End: 07-17-2023 Patient encounter procedure [facility] Work Phone: Start: 07-17-2023 End: 07-17-2023 ambulatory [facility] Work Phone: Start: 07-16-2023 End: 07-16-2023 Patient encounter procedure [facility] Work Phone: Start: 07-16-2023 End: 07-16-2023 ambulatory [facility] Work Phone: Start: 07-15-2023 End: 07-15-2023 Patient encounter procedure [facility] Work Phone: Start: 07-15-2023 End: 07-15-[facility] Start: 07-14-2023 End: 07-14-2023 Patient encounter procedure [facility] Work Phone: Start: 07-14-2023 End: 07-14-2023 [facility] Start: 07-13-2023 End: 07-13-2023 Patient encounter procedure [facility] Work Phone: Start: 07-13-2023 End: 07-13-2023 ambulatory Sulma Faganer [facility] Work Phone: Start: 07-12-2023 End: 07-12-2023 Patient encounter procedure [facility] Work Phone: Start: 07-12-2023 End: 07-12-2023 [facility] Start: 07-11-2023 End: 07-11-2023 Patient encounter procedure [facility] Work Phone: Start: 07-11-2023 End: 07-11-2023 [facility] Start: 07-10-2023 End: 07-10-2023 Patient encounter procedure [facility] Work Phone: Start: 07-10-2023 End: 07-10-2023 [facility] Start: 07-09-2023 End: 07-09-2023 Patient encounter procedure [facility] Work Phone: Start: 07-09-2023 End: 07-09-2023 [facility] Start: 07-08-2023 End: 07-08-2023 Patient encounter procedure [facility] Work Phone: Start: 07-08-2023 End: 07-08-2023 ambulatory Roman [facility] Work Phone: Start: 07-07-2023 End: 07-07-2023 Patient encounter procedure [facility] Work Phone: Start: 07-07-2023 End: 07-07-2023 ambulatory Roman [facility] Work Phone: Start: 07-06-2023 End: 07-06-2023 Patient encounter procedure [facility] Work Phone: Start: 07-06-2023 End: 07-06-2023 ambulatory Roman [facility] Work Phone: Start: 07-05-2023 End: 07-05-2023 Patient encounter procedure [facility] Work Phone: Start: 07-05-2023 End: 07-05-2023 ambulatory Roman [facility] Work Phone: Start: 07-04-2023 End: 07-04-2023 Patient encounter procedure [facility] Work Phone: Start: 07-04-2023 End: 07-04-2023 ambulatory Roamn [facility] Work Phone: Start: 07-03-2023 End: 07-03-2023 Patient encounter procedure [facility] Work Phone: Start: 07-03-2023 End: 07-03-2023 ambulatory Roman [facility] Work Phone: Start: 07-02-2023 End: 07-02-2023 Patient encounter procedure [facility] Work Phone: Start: 07-02-2023 End: 07-02-2023 ambulatory Roman [facility] Work Phone: Start: 07-01-2023 End: 07-01-2023 Patient encounter procedure [facility] Work Phone: Start: 07-01-2023 End: 07-01-2023 ambulatory [facility] Work Phone: Start: 06-30-2023 End: 06-30-2023 Patient encounter procedure [facility] Work Phone: Start: 06-30-2023 End: 06-30-2023 ambulatory Roman [facility] Work Phone: Start: 06-29-2023 End: 06-29-2023 Patient encounter procedure [facility] Work Phone: Start: 06-29-2023 End: 06-29-2023 ambulatory [facility] Work Phone: Start: 06-28-2023 End: 06-28-2023 Patient encounter procedure [facility] Work Phone: Start: 06-28-2023 End: 06-28-2023 ambulatory [facility] Work Phone: Start: 06-27-2023 End: 06-27-2023 Patient encounter procedure [facility] Work Phone: Start: 06-27-2023 End: 06-27-2023 ambulatory [facility] Work Phone: Start: 06-26-2023 End: 06-26-2023 Patient encounter procedure [facility] Work Phone: Start: 06-26-2023 End: 06-26-2023 ambulatory [facility] Work Phone: Start: 06-25-2023 End: 06-25-2023 Patient encounter procedure [facility] Work Phone: Start: 06-25-2023 End: 06-25-2023 ambulatory [facility] Work Phone: Start: 06-24-2023 End: 06-24-2023 Patient encounter procedure [facility] Work Phone: Start: 06-24-2023 End: 06-24-2023 ambulatory [facility] Work Phone: Start: 06-23-2023 End: 06-23-2023 Patient encounter procedure [facility] Work Phone: Start: 06-23-2023 End: 06-23-2023 ambulatory [facility] Work Phone: Start: 06-22-2023 End: 06-26-2023 ambulatory MOLINA FAITH MD Facility:B Start: 06-22-2023 End: 06-26-2023 Outreach Lab MOLINA FAITH MD [facility] Start: 06-22-2023 End: 06-22-2023 Patient encounter procedure [facility] Work Phone: Start: 06-22-2023 End: 06-22-2023 ambulatory [facility] Work Phone: Start: 06-21-2023 End: 06-21-2023 Patient encounter procedure [facility] Work Phone: Start: 06-21-2023 End: 06-21-2023 ambulatory Roman Faith [facility] Work Phone: Start: 06-20-2023 End: 06-20-2023 Patient encounter procedure [facility] Work Phone: Start: 06-20-2023 End: 06-20-2023 ambulatory [facility] Work Phone: Start: 06-19-2023 End: 06-19-2023 Patient encounter procedure [facility] Work Phone: Start: 06-19-2023 End: 06-19-2023 [facility] Work Phone: Start: 06-18-2023 End: 06-18-2023 Patient encounter procedure [facility] Work Phone: Start: 06-18-2023 End: 06-18-2023 ambulatory Roman Faith Facility:[facility] Start: 06-17-2023 End: 06-17-2023 Patient encounter procedure [facility] Work Phone: Start: 06-17-2023 End: 06-17-2023 ambulatory [facility] Work Phone: Start: 06-16-2023 End: 06-16-2023 Patient encounter procedure [facility] Work Phone: Start: 06-16-2023 End: 06-16-2023 ambulatory Roman [facility] Work Phone: Start: 06-15-2023 End: 06-15-2023 Patient encounter procedure [facility] Work Phone: Start: 06-15-2023 End: 06-15-2023 ambulatory Roman [facility] Work Phone: Start: 06-14-2023 End: 06-14-2023 Patient encounter procedure [facility] Work Phone: Start: 06-14-2023 End: 06-14-2023 ambulatory Roman [facility] Work Phone: Start: 06-13-2023 End: 06-13-2023 Patient encounter procedure [facility] Work Phone: Start: 06-13-2023 End: 06-13-2023 ambulatory [facility] Work Phone: Start: 06-12-2023 End: 06-12-2023 Patient encounter procedure [facility] Work Phone: Start: 06-12-2023 End: 06-12-2023 ambulatory Roman Faith [facility] Work Phone: Start: 06-11-2023 End: 06-11-2023 ambulatory Binta Jose ABERNATHY [facility] Work Phone: Start: 06-11-2023 End: 06-11-2023 Patient encounter procedure [facility] Work Phone: Start: 06-10-2023 End: 06-11-2023 Emergency department patient visit SULMA MALONE Facility:[id number] Start: 06-04-2023 End: 06-04-2023 Evaluation and management of inpatient BUCK AYALA Facility:[id number] Start: 06-02-2023 End: 06-09-2023 Evaluation and management of inpatient TYRONE ANN Facility:[id number] Start: 03-28-2023 ambulatory Mason colin MD Work Phone: [facility] Comment on above: Pleural effusion on right (Primary Dx); Pulmonary nodules/lesions, multiple; Acute septic pulmonary embolism, unspecified whether acute cor pulmonale present (HCC) Start: 03-27-2023 ambulatory Mason colin MD Work Phone: [facility] Comment on above: Pleural effusion on right (Primary Dx); Pulmonary nodules/lesions, multiple; Acute septic pulmonary embolism, unspecified whether acute cor pulmonale present (HCC) Start: 03-26-2023 ambulatory Mason colin MD Work Phone: [facility] Comment on above: Pleural effusion on right (Primary Dx); Pulmonary nodules/lesions, multiple; Acute septic pulmonary embolism, unspecified whether acute cor pulmonale present (HCC) Start: 03-25-2023 ambulatory Mason colin MD Work Phone: [facility] Comment on above: Pleural effusion on right (Primary Dx); Pulmonary nodules/lesions, multiple; Traumatic hemo-pneumothorax, subsequent encounter Start: 03-24-2023 End: 03-24-2023 Subsequent hospital visit by physician Behzad Almaraz MD Work Phone: [facility] Comment on above: Encephalopathy Pleural effusion on right Start: 03-23-2023 ambulatory Katelynn gonzalez PA-C Work Phone: [facility] Comment on above: 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, subsequent encounter (Primary Dx); MRSA bacteremia Acute septic pulmona ry embolism, unspecified whether acute cor pulmonale present (HCC) (Primary Dx); Pleural effusion on right; Pulmonary nodules/lesions, multiple Pleural effusion on right (Primary Dx) Start: 03-22-2023 ambulatory Mason colin MD Work Phone: [facility] Comment on above: Acute septic pulmona ry embolism, unspecified whether acute cor pulmonale present (HCC) (Primary Dx); Pulmonary nodules/lesions, multiple; Traumatic hemo-pneumothorax, subsequent encounter; Pleural effusion on right Start: 03-18-2023 Transcribe Orders Behzad duran MD Work Phone: [facility] Central Scheduling Comment on above: Encephalopathy (Prim nahomy Dx) Start: 03-17-2023 ambulatory Myranda Rodriguez PA-C Work Phone: [facility] Comment on above: 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, subsequent encounter (Primary Dx); Acute bacterial endocarditis; USP (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 antibiotics; Critical polytrauma; MRSA bacteremia Start: 03-16-2023 ambulatory Bran busby MD Work Phone: [facility] Comment on above: Acute septic pulmona ry embolism, unspecified whether acute cor pulmonale present (HCC) (Primary Dx); COVID-19 virus infection; MRSA bacteremia; Pulmonary nodules/lesions, multiple; Traumatic hemo-pneumothorax, subsequent encounter 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, subsequent encounter (Primary Dx); Acute bacterial endocarditis; MRSA bacteremia; buttermaker (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 antibiotics; Critical polytrauma Start: 03-12-2023 ambulatory Samantha Austin APRN - MUNDO Work Phone: [facility] Comment on above: Acute bacterial endo carditis (Primary Dx); COVID; MRSA bacteremia; USP (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 antibiotics Start: 03-11-2023 ambulatory Samantha Austin GROUP ACCOUNT DIRECTOR - MANAGER PLAY Work Phone: [facility] Comment on above: Acute bacterial endo carditis (Primary Dx); COVID; MRSA bacteremia; USP (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 antibiotics Start: 03-10-2023 ambulatory Samantha Austin GROUP ACCOUNT DIRECTOR - MANAGER PLAY Work Phone: [facility] Comment on above: MRSA bacteremia (Tonia eze Dx); USP (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 antibiotics; COVID; Acute bacterial endocarditis Start: 03-10-2023 [facility] hospital care/d ay 25 minutes Earnestine Poe DO Work Phone: [facility] Comment on above: Acute septic pulmona ry embolism, unspecified whether acute cor pulmonale present (HCC) (Primary Dx); COVID-19 virus infection Start: 03-08-2023 ambulatory Samantha Austin GROUP ACCOUNT DIRECTOR - MANAGER PLAY Work Phone: [facility] Comment on above: Acute bacterial endo carditis (Primary Dx); MRSA bacteremia; Critical polytrauma; buttermaker (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 antibiotics Start: 03-04-2023 ambulatory Samantha Austin GROUP ACCOUNT DIRECTOR - MANAGER PLAY Work Phone: [facility] Comment on above: Acute bacterial endo carditis (Primary Dx); MRSA bacteremia; Critical polytrauma; buttermaker (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 antibiotics Start: 03-03-2023 ambulatory Samantha Austin GROUP ACCOUNT DIRECTOR - MANAGER PLAY Work Phone: [facility] Comment on above: Acute bacterial endo carditis (Primary Dx); Pulmonary nodules/lesions, multiple; MRSA bacteremia; USP (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 antibiotics Start: 03-02-2023 ambulatory Samantha Austin GROUP ACCOUNT DIRECTOR - MANAGER PLAY Work Phone: [facility] Comment on above: Acute bacterial endo carditis (Primary Dx); MRSA bacteremia; USP (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 antibiotics; Critical polytrauma; Pulmonary nodules/lesions, multiple; Encephalopathy Start: 03-01-2023 ambulatory Samantha Austin GROUP ACCOUNT DIRECTOR - MANAGER PLAY Work Phone: [facility] Comment on above: Acute bacterial endo carditis (Primary Dx); MRSA bacteremia; Traumatic brain injury with loss of consciousness, subsequent encounter; Critical polytrauma; USP (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 antibiotics Start: 02-28-2023 ambulatory Mason colin MD Work Phone: [facility] Comment on above: MRSA bacteremia (Tonia eze Dx); Traumatic hemo-pneumothorax, subsequent encounter; Pulmonary nodules/lesions, multiple Start: 02-27-2023 ambulatory Mason colin MD Work Phone: [facility] Comment on above: MRSA bacteremia (Tonia eze Dx); Traumatic hemo-pneumothorax, subsequent encounter; Pulmonary nodules/lesions, multiple Start: 02-26-2023 ambulatory [place] Work Phone: [facility] Comment on above: MRSA bacteremia (Tonia eze Dx); Acute bacterial endocarditis Pulmonary nodules/le sions, multiple (Primary Dx); MRSA bacteremia; Traumatic hemo-pneumothorax, subsequent encounter Start: 02-25-2023 ambulatory Mason colin MD Work Phone: [facility] Comment on above: Pulmonary nodules/le sions, multiple (Primary Dx); MRSA bacteremia; Traumatic hemo-pneumothorax, subsequent encounter Start: 02-24-2023 ambulatory Mason colin MD Work Phone: [facility] Comment on above: Pulmonary nodules/le sions, multiple (Primary Dx); MRSA bacteremia; Traumatic hemo-pneumothorax, subsequent encounter Start: 02-23-2023 ambulatory Mason colin MD Work Phone: [facility] Comment on above: Pulmonary nodules/le sions, multiple (Primary Dx); MRSA bacteremia; Traumatic hemo-pneumothorax, subsequent encounter Start: 02-22-2023 ambulatory [place] Work Phone: [facility] Comment on above: MRSA bacteremia (Tonia loo Dx); Acute bacterial endocarditis Start: 02-19-2023 ambulatory Katelynn gonzalez PA-C Work Phone: [facility] Comment on above: 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 Start: 01-24-2023 End: 01-25-[address] [facility] Start: 01-23-2023 End: 01-24-[address] [facility] Start: 12-21-2022 End: 12-21-2022 Clinical Support Pathology Provider [facility] Start: 12-19-2022 End: 12-19-2022 ambulatory UNKNOWN PROVIDER Facility:[facility] Start: 12-17-2022 End: 12-17-2022 ambulatory UNKNOWN PROVIDER Facility:[facility] Start: 12-17-2022 Evaluation and manag ement of inpatient [facility] Start: 12-08-2022 End: 12-08-2022 Emergency department patient visit FAISAL GARCIA [facility] Start: 11-17-2022 End: 11-19-2022 ambulatory SULMA WOLFE [facility] Procedures Date Procedure Procedure Detail Performing Clinician Start: 03-24-2023 Thoracentesis needle/cath pleura w/imaging Behzad Almaraz MD Work Phone: Start: 01-28-2023 Antibody screen [facility] Comment on above: Performed By: #### [id number] ####Medical Di adria: NED PAK ([id number])[facility] ([facility])[address] [place] [address] Start: 12-19-2022 Cryoprecipitatereducedplasma Provider Unspecified Start: 12-19-2022 PLASMA STATUS Jacob Wiseman GROUP ACCOUNT DIRECTOR-MANAGER PLAY Work Phone: Start: 12-19-2022 RBC leukocytes reduced Provider Unspecified Start: 12-19-2022 RED BLOOD CELL UNIT STATUS Jacob barton GROUP ACCOUNT DIRECTOR-MANAGER PLAY Work Phone: Start: 12-19-2022 Blood typing, ABO, Rho(D) and RBC antibody screening Dave Muniz MD Work Phone: Start: 12-17-2022 Antibody screen [facility] Comment on above: Performed By: #### [id number] ####Medical Di adria: NED PAK ([id number])[facility] ([facility])[address] [place] [address] Start: 11-17-2022 Urinalysis SULMA MALONE Comment on above: Result Comment: URINALYSIS Performed By: #### [id number] #### [facility],[address] [place] [address] Plan of Treatment Date Care Activity Detail Author Start: 12-17-2032 DTaP/Tdap/Td Vaccine s (3 - Td or Tdap) DTaP/Tdap/Td Vaccines (3 - Td or Tdap) [facility] Start: 12-17-2032 Urine microalbumin profile DTaP,Tdap,Td Vaccine (3 - Td or Tdap) [facility] Start: 12-08-2032 Tetanus vaccination Tetanus (T d or Tdap) [facility] Start: 01-26-2027 Diabetes Screening Diabetes Screenin g [facility] Start: 06-08-2026 Diabetes Screening Diabetes Screenin g [facility] Start: 03-26-2024 Creatinine measurement Creatinine [facility] Start: 03-26-2024 Potassium measurement Potassium Leve l [facility] Start: 03-25-2024 Creatinine measurement Creatinine [facility] Start: 03-25-2024 Potassium measurement Potassium Leve l [facility] Start: 03-23-2024 Creatinine measurement Creatinine [facility] Start: 03-23-2024 Potassium measurement Potassium Leve l [facility] Start: 03-22-2024 Medicare Advantage A nnual Wellness Visit Medicare Advantage Annual Wellness Visit [facility] Start: 03-19-2024 Creatinine measurement Creatinine [facility] Start: 03-19-2024 Potassium measurement Potassium Leve l [facility] Start: 2024 Creatinine measurement Creatinine [facility] Start: 2024 Potassium measurement Potassium Leve l [facility] Start: 03-12-2024 Creatinine measurement Creatinine [facility] Start: 03-12-2024 Potassium measurement Potassium Leve l [facility] Start: 03-10-2024 Creatinine measurement Creatinine [facility] Start: 03-10-2024 Potassium measurement Potassium Leve l [facility] Start: 03-08-2024 Creatinine measurement Creatinine [facility] Start: 03-08-2024 Potassium measurement Potassium Leve l [facility] Start: 03-02-2024 Creatinine measurement Creatinine [facility] Start: 03-02-2024 Potassium measurement Potassium Leve l [facility] Start: 03-01-2024 Creatinine measurement Creatinine [facility] Start: 03-01-2024 Potassium measurement Potassium Leve l [facility] Start: 02-28-2024 Creatinine measurement Creatinine [facility] Start: 02-28-2024 Potassium measurement Potassium Leve l [facility] Start: 02-27-2024 Creatinine measurement Creatinine [facility] Start: 02-27-2024 Potassium measurement Potassium Leve l [facility] Start: 02-23-2024 Creatinine measurement Creatinine [facility] Start: 02-23-2024 Potassium measurement Potassium Leve l [facility] Start: 02-20-2024 Creatinine measurement Creatinine [facility] Start: 02-20-2024 Potassium measurement Potassium Leve l [facility] Start: 02-03-2024 Echocardiography Echocardiogram [facility] Start: 11-21-2023 Covid-19 Vaccine ( season) Covid-19 Vaccine ( season) [facility] Start: 11-21-2023 Influenza vaccination [facility] Start: 07-21-2023 Iv infusion therapy prophylaxis/dx ea hour THER/PROPH/DIAG IV INF [facility] Start: 07-21-2023 Iv infusion therapy/prophylaxis /dx 1st to 1 hr THER/PROPH/DIAG IV INF [facility] Start: 07-19-2023 Iv infusion therapy prophylaxis/dx ea hour THER/PROPH/DIAG IV INF [facility] Start: 07-19-2023 Iv infusion therapy/prophylaxis /dx 1st to 1 hr THER/PROPH/DIAG IV INF [facility] Start: 07-18-2023 Iv infusion therapy prophylaxis/dx ea hour THER/PROPH/DIAG IV INF [facility] Start: 07-18-2023 Iv infusion therapy/prophylaxis /dx 1st to 1 hr THER/PROPH/DIAG IV INF [facility] Start: 07-18-2023 Following clinical pathway protocol [facility] Start: 07-18-2023 Peripherally inserte d central catheter [facility] Start: 07-17-2023 Following clinical pathway protocol [facility] Start: 07-17-2023 Peripherally inserte d central catheter [facility] Start: 07-14-2023 Iv infusion therapy prophylaxis/dx ea hour THER/PROPH/DIAG IV INF [facility] Start: 07-14-2023 Iv infusion therapy/prophylaxis /dx 1st to 1 hr THER/PROPH/DIAG IV INF [facility] Start: 07-04-2023 Iv infusion therapy prophylaxis/dx ea hour THER/PROPH/DIAG IV INF [facility] Start: 07-04-2023 Iv infusion therapy/prophylaxis /dx 1st to 1 hr THER/PROPH/DIAG IV INF [facility] Start: 07-03-2023 Peripherally inserte d central catheter [facility] Start: 06-30-2023 Iv infusion therapy prophylaxis/dx ea hour THER/PROPH/DIAG IV INF [facility] Start: 06-30-2023 Iv infusion therapy/prophylaxis /dx 1st to 1 hr THER/PROPH/DIAG IV INF [facility] Start: 06-26-2023 Iv infusion therapy prophylaxis/dx ea hour THER/PROPH/DIAG IV INF [facility] Start: 06-26-2023 Iv infusion therapy/prophylaxis /dx 1st to 1 hr THER/PROPH/DIAG IV INF [facility] Start: 06-24-2023 Iv infusion therapy prophylaxis/dx ea hour THER/PROPH/DIAG IV INF [facility] Start: 06-24-2023 Iv infusion therapy/prophylaxis /dx 1st to 1 hr THER/PROPH/DIAG IV INF [facility] Start: 06-22-2023 Iv infusion therapy prophylaxis/dx ea hour THER/PROPH/DIAG IV INF [facility] Start: 06-22-2023 Iv infusion therapy/prophylaxis /dx 1st to 1 hr THER/PROPH/DIAG IV INF [facility] Start: 06-19-2023 Following clinical pathway protocol [facility] Start: 06-19-2023 Peripherally inserte d central catheter care [facility] Start: 06-19-2023 Iv infusion therapy prophylaxis/dx ea hour THER/PROPH/DIAG IV INF [facility] Start: 06-19-2023 Iv infusion therapy/prophylaxis /dx 1st to 1 hr THER/PROPH/DIAG IV INF [facility] Start: 06-18-2023 Iv infusion therapy prophylaxis/dx ea hour THER/PROPH/DIAG IV INF [facility] Start: 06-18-2023 Iv infusion therapy/prophylaxis /dx 1st to 1 hr THER/PROPH/DIAG IV INF [facility] Start: 06-16-2023 Iv infusion therapy prophylaxis/dx ea hour THER/PROPH/DIAG IV INF [facility] Start: 06-16-2023 Iv infusion therapy/prophylaxis /dx 1st to 1 hr THER/PROPH/DIAG IV INF [facility] Start: 06-13-2023 Following clinical pathway protocol [facility] Start: 06-13-2023 Peripherally inserte d central catheter care [facility] Start: 06-12-2023 Peripherally inserte d central catheter care [facility] [facility] Start: 06-12-2023 Iv infusion therapy prophylaxis/dx ea hour THER/PROPH/DIAG IV INF [facility] Start: 06-12-2023 Iv infusion therapy/prophylaxis /dx 1st to 1 hr THER/PROPH/DIAG IV INF [facility] Start: 06-11-2023 Following clinical pathway protocol [facility] Start: 06-11-2023 End: 06-11-2023 Peripherally inserted central catheter care [facility] Start: 06-11-2023 Iv infusion therapy prophylaxis/dx ea hour THER/PROPH/DIAG IV INF [facility] Start: 06-11-2023 Iv infusion therapy/prophylaxis /dx 1st to 1 hr THER/PROPH/DIAG IV INF [facility] Start: 03-26-2023 End: 03-26-2023 Patient encounter procedure 03/26/2023 9:00 AM EST Appointment [facility] [address] [place] [id number] Behzad Almaraz MD [address] [place] [address] [facility] Start: 03-24-2023 End: 03-24-2023 Patient encounter procedure [facility] Start: 03-22-2023 Advance Directive Discussion Advance Directive Discussion [facility] Start: 03-22-2023 Behavioral Health Screening Behavioral Health Screening [facility] Start: 03-22-2023 Medicare Advantage A nnual Wellness Visit Medicare Advantage Annual Wellness Visit [facility] Start: 03-18-2023 End: 03-18-2024 MR Brain WO and W contrast IV MR brain w and wo contrast Imaging Routine Encephalopathy Expected: 03/18/2023, Expires: 03/18/2024 [facility] Work Phone: Comment on above: Expected: 03/18/2023 , Expires: 03/18/2024 Start: 11-20-2022 COVID-19 Vaccine ( season) COVID-19 Vaccine ( season) [facility] Start: 11-20-2022 Influenza vaccination Influenza Vacc ine (#1) [facility] Start: 03-22-2022 Welcome to Medicare Visit (G0402) Welcome to Medicare Visit (G0402) [facility] Start: 2019 RSV Immunization for Adults (1 - 1-dose 75+ series) RSV Immunization for Adults (1 - 1-dose 75+ series) [facility] Start: 2019 RSV Vaccine (1 - 1-d ose 75+ series) RSV Vaccine (1 - 1-dose 75+ series) [facility] Start: 2009 Pneumococcal vaccination Pneum ococcal Vaccine(s) (65+ yrs) (1 - PCV) [facility] Start: 2009 Pneumococcal Vaccine : 65+ (1 of 1 - PCV) Pneumococcal Vaccine: 65+ (1 of 1 - PCV) [facility] Start: 2009 Screening for osteoporosis [facility] Start: 2004 RSV Immunization age d 60 or older (1 - 1-dose 60+ series) RSV Immunization aged 60 or older (1 - 1-dose 60+ series) [facility] Start: 2004 RSV Vaccine (1 - 1-d ose 60+ series) RSV Vaccine (1 - 1-dose 60+ series) [facility] Start: 2004 RSV vaccine (optiona l 60+ years) RSV vaccine (optional 60+ years) [facility] Start: 1994 Pneumococcal Vaccine : 50+ (1 of 1 - PCV) Pneumococcal Vaccine: 50+ (1 of 1 - PCV) [facility] Start: 1994 Shingles (RZV) Vacci ne (1 of 2) Shingles (RZV) Vaccine (1 of 2) [facility] Start: 1994 Shingrix Vaccine (1 of 2) Mckinnon grix Vaccine (1 of 2) [facility] Start: 1994 Zoster Vaccines (1 of 2) Zoste r Vaccines (1 of 2) [facility] Start: 1963 Pneumococcal Vaccine : 50+ Years (1 of 2 - PCV) Pneumococcal Vaccine: 50+ Years (1 of 2 - PCV) [facility] Start: 1962 Anxiety Screening Anxiety Screening [facility] Start: 1962 Depression Screening Depression Scre ening [facility] Start: 1962 Hepatitis C screening [facility] Start: 1956 Depression Screening Depression Scre ening [facility] Start: 1950 Pneumococcal Vaccine : 65+ Years (1 - PCV) Pneumococcal Vaccine: 65+ Years (1 - PCV) [facility] Start: 1950 Pneumococcal Vaccine : 65+ Years (1 of 2 - PCV) Pneumococcal Vaccine: 65+ Years (1 of 2 - PCV) [facility] Start: 1944 COVID-19 Vaccine (#1) COVID-19 Vacci ne (#1) [facility] Start: 1944 COVID-19 Vaccine ( formulation) COVID-19 Vaccine ( formulation) [facility] Start: 1944 Lipid panel Lipid Panel [facility] Start: 1944 Medicare Advantage A nnual Wellness Visit (AWV) Medicare Advantage Annual Wellness Visit (AWV) [facility] Start: 1945 Screening for osteoporosis Bone Density Scan [facility] End: 03-24-2023 MR Brain WO and W contrast IV MR brain w and wo contrast Imaging Routine Encephalopathy Once for 1 Occurrences starting 03/24/2023 until 03/24/2023 [facility] Work Phone: Comment on above: Once for 1 Occurrenc es starting 03/24/2023 until 03/24/2023 Patient referral [facility] Work Phone: Immunizations Immunization Date Immunization Notes Care Provider Lydia [facility] 12-17-2022 tetanus toxoid, redu lisbeth diphtheria toxoid, and acellular pertussis vaccine, adsorbed Katelynn Chiu PA-C Work Phone: [facility] 12-08-2022 tetanus toxoid, redu lisbeth diphtheria toxoid, and acellular pertussis vaccine, adsorbed Pathology Provider [facility] Payers Date Payer Category Payer Self-pay [id number] 2022 Unknown [id number] 2022 Unknown MRA MRA [id number] 2022-Present [id number] [facility] [address] [place] [address] Commercial [id number] 2022 Medicare [id number]. 1.13.56.2.7.3. [id number] 2022 Medicare [id number] 2022 [place] [id number] 1.2.840.962286.1.13.680.2.7.9 .[id number] 1945 Unknown [id number] 2.16.840.1.186417.3.579.2.732 1944 Unknown [id number] 2.16.840.1.096549.3.579.2.732 1944 Unknown [id number] 2.16840.1.258487.3.579.2.651 1944 Unknown [id number] 2.16.840.1.575076.3.579.2.651 Unknown [id number] 2.16840.1.012970.3.579.2.627 Unknown [id number] 2.16840.1.538904.3.579.2.627 Unknown [id number] 2.16.840.1.739360.3.579.2.627 Unknown [id number] 2.16.840.1.457185.3.579.2.462 Unknown [id number] 2.16.840.1.627552.3.579.2.462 Unknown [id number] 2.16.840.1.123897.3.579.2.462 Unknown [id number] 2.16.840.1.052266.3.579.2.462 Unknown [id number] 2.16.840.1.092505.3.579.2.462 Unknown [id number] 2.16.840.1.540362.3.579.2.462 Unknown [id number] 2.16.840.1.933408.3.579.2.462 Unknown [id number] 2.16.840.1.722416.3.579.2.462 Unknown [id number] 2.16.840.1.783120.3.579.2.462 Unknown [id number] 2.16.840.1.657362.3.579.2.462 Unknown [id number] 2.16.840.1.916538.3.579.2.462 Unknown [id number] 2.16.840.1.343555.3.579.2.462 Unknown [id number] 2.840.1.661240.3.579.2.462 Unknown [id number] 2.16840.1.238534.3.579.2.462 Unknown [id number] 2.840.1.473746.3.579.2.462 Unknown [id number] 2.840.1.721497.3.579.2.462 Unknown [id number] 2.840.1.287857.3.579.2.462 Unknown [id number] 2.840.1.966009.3.579.2.462 Unknown [id number] 2.840.1.653526.3.579.2.462 Unknown [id number] 2.840.1.956550.3.579.2.462 Unknown [id number] 2.840.1.789196.3.579.2.462 Unknown [id number] 2.840.1.514510.3.579.2.462 Unknown [id number] 2.16840.1.330586.3.579.2.462 Unknown [id number] 2.16840.1.483262.3.579.2.462 Unknown [id number] 2.16.840.1.003998.3.579.2.462 Unknown [id number] 2.16.840.1.108027.3.579.2.462 Unknown [id number] 2.16.840.1.786529.3.579.2.462 Unknown [id number] 2.16.840.1.366579.3.579.2.462 Unknown [id number] 2.16.840.1.662970.3.579.2.462 Unknown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
[2025-03-16] VITALS (8 sets, daily range): BP systolic 105–143; BP diastolic 53–90; PULSE 63–105; RESP 14–19; TEMP 36.6–37.3; O2SAT 96–99; BMI 27.3
[2025-03-16 02:33] LABS: Hematocrit 32.6 % (37-47); Hemoglobin 10.7 g/dL (12.0-15.0); Immature Granulocytes Count 0.060 X10^3/uL (0.0-0.0); Mean Corp Hgb Conc 32.8 g/dL (32-36); Mean Corpuscular Volume 85.6 fL (81-99); Mean Platelet Vol. 10.3 fl (6.2-12.0); NRBC Flagged by Analyzer 0 % (0-5); POSITIVE DIFFERENTIAL YES; POSITIVE MORPHOLOGY YES; Platelet Count 250 K/mm3 (150-450); RBC Distribution Width CV 13.6 % (11.6-14.6); RBC Distribution Width SD 42.4 fl (35.1-43.9); Red Blood Count 3.81 M/mm3 (4.2-5.4); White Blood Count 22.2 K/mm3 (4.4-11.0)
[2025-03-16 02:37] LABS: Differential Indicated SCAN CRITERIA MET
[2025-03-16 02:50] LABS: AST(SGOT) 13 U/L (<=31); Alanine Aminotransfer ALT/SGPT 5 U/L (<=34); Albumin, Serum 3.5 g/dL (3.4-4.8); Alkaline Phosphatase 42 U/L (35-104); Anion Gap 10 (7-18); BUN 14 mg/dL (4-19); BUN/Creat Ratio 18.2 RATIO (10-20); Calcium,Total 9.0 mg/dL (7.6-11.0); Carbon Dioxide 18.7 mmol/L (20.0-29.0); Chloride 112 mmol/L (96-106); Estimated Creatinine Clearance 42.85 ml/min (50-250); Globulin 2.8 g/dL (2.2-4.2); Glucose 149 mg/dL (70-99); Potassium 3.7 mmol/L (3.5-5.1)
[2025-03-16 03:04] LABS: Differential Comment SCANNED
[2025-03-16] MEDS: Pantoprazole Sodium 80 MG in 0.9% Normal Saline (100mL Bag) 80 ML 10 MG CONT INF ×2 (05:07→16:42)
[2025-03-16] MEDS: 0.9% Normal Saline (1000mL) 1,000 ML 100 ML IV (05:09)
--- NOTE | 2025-03-16 06:00 | MRI_ITS ---
PROCEDURE: BRAIN WITHOUT CONTRAST 03/16/2025 REASON FOR EXAM: CVA/TIA VS. MENINGITIS TECHNIQUE: Procedure Code: MRIBR Modality: MR Procedure: BRAIN WITHOUT CONTRAST Multiplanar and multisequence images were obtained. COMPARISON: None available. FINDINGS: No acute infarct or hemorrhage. Chronic right cerebellar infarct. Chronic left anterior temporal lobe infarct. Bifrontal encephalomalacia and gliosis with associated ex vacuo dilatation of the frontal horns of the lateral ventricles. Global cerebral volume loss with compensatory enlargement of supratentorial CSF space. No hydrocephalus. Additional scattered foci of periventricular and subcortical T2/FLAIR white matter hyperintensities in the cerebral hemispheres likely reflect chronic microvascular ischemic changes. No extra-axial fluid collection. No significant mass effect or herniation of the brain. The basal cisterns are patent. The intracranial large vessel arterial flow voids are maintained. The mastoid air cells clear. There is scattered paranasal mucosal thickening. Bilateral ocular lens replacements. The calvarial bone marrow signal is within normal limits. MRI/Brain without Contrast IMPRESSION: 1. No acute infarct or hemorrhage. 2. Bifrontal encephalomalacia. Chronic right cerebellar infarct. 3. Chronic microvascular ischemic changes. 4. Evaluation of meningitis is limited on noncontrast MRI of the brain. Within these limitations, no inflammatory changes are seen intracranially. Reading Location: [id number]
[2025-03-16 06:17] LABS: Cholesterol 145 mg/dL (<=200); Low Density Lipoprotein Calc. 90 mg/dL; Triglycerides 49 mg/dL; Very Low Density Lipoprotein 10 mg/dL (5-40); cholesterol:hdl ratio screen 3.25
[2025-03-16] MEDS: 0.9% Saline Lock 10 ML Syringe IV ×3 (06:24→21:02)
[2025-03-16] MEDS: Meropenem 2 GM in 0.9% Normal Saline (100mL Bag) 100 ML IV (11:28)
--- NOTE | 2025-03-16 11:38 | CASEMGMT ---
Social Work Per imaging pt negative for stroke, therefore PHQ9 not completed. SYBIL Bustamante
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
--- NOTE | 2025-03-16 11:54 | CASEMGMT ---
SW Assessment: SW spoke with the patients on the phone. Admitting Dx: meningitis, CVA/TIA, GI bleed PCP: Dr. Damian Ernandez Specialists: Jorgeies Preferred Pharmacy: [facility] Insurance: [employer] [facility] Prescription Benefit: yes LNOK: Jose Luis; Daughter Renée, son Juve Living Arrangements: Patient lives with with a ramp to enter home and patient lives all on the main level. ADLs: independent until 2 days ago. 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 DME: WC, Hand rails throughout the home, walker, shower bench. [facility] assessment: Patient lives with with a ramp to enter home and patient lives all on the main level. The son and daughter help when needed. Plan: SYBIL Pradhan
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
--- NOTE | 2025-03-16 13:28 | CASEMGMT ---
Social Work Therapy is recommending the Rehab Unit for the patient. SW spoke with the and daughter regarding a referral to the [facility]. They are agreement for the referral. SW sent to referral. SYBIL Bustamante
[2025-03-16 15:17] LABS: Neutrophils,CSF 3 % (0 - 6)
--- NOTE | 2025-03-16 15:49 | CASEMGMT ---
Social Work SW referral made to [facility] and waiting on decision. SW will follow up Wednesday. SYBIL Bustamante
[2025-03-17 01:14] VITALS: BMI 27.3
[2025-03-17 02:45] VITALS: BP 115/51; PULSE 73; RESP 16; TEMP 37.2; O2SAT 95
[2025-03-17] MEDS: Pantoprazole Sodium 80 MG in 0.9% Normal Saline (100mL Bag) 80 ML 10 MG CONT INF (02:48)
[2025-03-17 05:15] VITALS: BMI 26.5
[2025-03-17 08:18] VITALS: BP 127/50; PULSE 72; RESP 16; TEMP 37.3; O2SAT 93
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
[2025-03-17 10:46] LABS: Hematocrit 33.1 % (37-47); Hemoglobin 11.4 g/dL (12.0-15.0); Mean Corp Hgb Conc 34.4 g/dL (32-36); Mean Corpuscular Volume 81.5 fL (81-99); Mean Platelet Vol. 9.2 fl (6.2-12.0); Platelet Count 317 K/mm3 (150-450); RBC Distribution Width CV 13.9 % (11.6-14.6); RBC Distribution Width SD 41.1 fl (35.1-43.9); Red Blood Count 4.06 M/mm3 (4.2-5.4); White Blood Count 19.7 K/mm3 (4.4-11.0)
[2025-03-17 11:19] LABS: AST(SGOT) 15 U/L (<=31); Alanine Aminotransfer ALT/SGPT 8 U/L (<=34); Albumin, Serum 3.8 g/dL (3.4-4.8); Alkaline Phosphatase 43 U/L (35-104); Anion Gap 9 (7-18); BUN 19 mg/dL (4-19); BUN/Creat Ratio 22.5 RATIO (10-20); Calcium,Total 9.7 mg/dL (7.6-11.0); Carbon Dioxide 22.6 mmol/L (20.0-29.0); Chloride 111 mmol/L (96-106); Estimated Creatinine Clearance 41.64 ml/min (50-250); Globulin 3.4 g/dL (2.2-4.2); Glucose 117 mg/dL (70-99); Magnesium 2.3 mg/dL (1.5-2.2); Potassium 3.9 mmol/L (3.5-5.1)
[2025-03-17 16:01] VITALS: BP 139/71; PULSE 85; RESP 16; TEMP 37.3; O2SAT 94
[2025-03-17 17:51] VITALS: BMI 26.5
[2025-03-17 21:50] VITALS: BMI 26.5
[2025-03-17 21:56] VITALS: BP 111/62; PULSE 81; PULSE 83; RESP 16; TEMP 36.9; O2SAT 96
[2025-03-17] MEDS: MELATONIN 3 MG TABLET PO (21:57)
[2025-03-17] MEDS: Senna/Docusate Sodium 1 Tablet 2 TABLET PO (21:57)
[2025-03-17] MEDS: 0.9% Saline Lock 10 ML Syringe IV (22:01)
[2025-03-18 03:32] VITALS: BP 149/85; PULSE 83; RESP 16; TEMP 36.9; O2SAT 97
[2025-03-18 05:34] VITALS: BMI 26.9
[2025-03-18 06:42] VITALS: O2SAT 93
[2025-03-18 08:23] LABS: Hematocrit 34.6 % (37-47); Hemoglobin 11.7 g/dL (12.0-15.0); Mean Corp Hgb Conc 33.8 g/dL (32-36); Mean Corpuscular Volume 82.4 fL (81-99); Mean Platelet Vol. 9.4 fl (6.2-12.0); POSITIVE DIFFERENTIAL YES; POSITIVE MORPHOLOGY YES; Platelet Count 333 K/mm3 (150-450); RBC Distribution Width CV 13.7 % (11.6-14.6); RBC Distribution Width SD 41.1 fl (35.1-43.9); Red Blood Count 4.20 M/mm3 (4.2-5.4); White Blood Count 19.5 K/mm3 (4.4-11.0)
[2025-03-18 08:48] LABS: Anion Gap 10 (7-18); BUN 18 mg/dL (4-19); BUN/Creat Ratio 26.7 RATIO (10-20); Calcium,Total 8.7 mg/dL (7.6-11.0); Carbon Dioxide 20.0 mmol/L (20.0-29.0); Chloride 112 mmol/L (96-106); Estimated Creatinine Clearance 44.00 ml/min (50-250); Glucose 107 mg/dL (70-99); Potassium 3.3 mmol/L (3.5-5.1)
[2025-03-18 09:09] LABS: Differential Indicated MANUAL DIFF
[2025-03-18 09:11] LABS: Neutrophil-Band 1 % (0-5); Neutrophil-Segmented 86 % (47-70); Red Cell Morphology NORM C+C NORMAL (NORM C&C); Total Cells Counted 100 (MANUAL DIFF)
[2025-03-18] MEDS: 0.9% Saline Lock 10 ML Syringe IV ×2 (10:16→22:16)
[2025-03-18 10:20] VITALS: BP 139/74; PULSE 101; RESP 18; TEMP 36.2; O2SAT 95
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
[2025-03-18] MEDS: Potassium Chloride Oral Tablet 20 MEQ 40 MEQ PO (14:23)
[2025-03-18] MEDS: Senna/Docusate Sodium 1 Tablet 2 TABLET PO (14:27)
[2025-03-18 18:00] VITALS: BP 128/79; PULSE 96; RESP 16; TEMP 36.2; O2SAT 95
[2025-03-18 20:55] VITALS: BP 147/75; PULSE 104; RESP 16; TEMP 37.7; O2SAT 94
[2025-03-18 22:19] VITALS: TEMP 37.6
[2025-03-19 03:15] VITALS: BP 134/68; PULSE 81; RESP 16; TEMP 37.2; O2SAT 95
[2025-03-19 06:00] VITALS: BMI 26.2
[2025-03-19 06:57] LABS: Hematocrit 31.3 % (37-47); Hemoglobin 10.9 g/dL (12.0-15.0); Immature Granulocytes Count 0.130 X10^3/uL (0.0-0.0); Mean Corp Hgb Conc 34.8 g/dL (32-36); Mean Corpuscular Volume 79.8 fL (81-99); Mean Platelet Vol. 9.3 fl (6.2-12.0); NRBC Flagged by Analyzer 0 % (0-5); Platelet Count 348 K/mm3 (150-450); RBC Distribution Width CV 14.0 % (11.6-14.6); RBC Distribution Width SD 40.8 fl (35.1-43.9); Red Blood Count 3.92 M/mm3 (4.2-5.4); White Blood Count 18.1 K/mm3 (4.4-11.0)
[2025-03-19 06:58] VITALS: O2SAT 94
[2025-03-19 07:02] LABS: Anion Gap 8 (7-18); BUN 16 mg/dL (4-19); BUN/Creat Ratio 23.4 RATIO (10-20); Calcium,Total 8.5 mg/dL (7.6-11.0); Carbon Dioxide 23.4 mmol/L (20.0-29.0); Chloride 110 mmol/L (96-106); Estimated Creatinine Clearance 43.52 ml/min (50-250); Glucose 95 mg/dL (70-99); Potassium 3.5 mmol/L (3.5-5.1)
[2025-03-19 08:40] VITALS: BP 143/72; PULSE 72; RESP 16; TEMP 36.9; O2SAT 93
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
--- NOTE | 2025-03-19 11:44 | CASEMGMT ---
Social Work TANYA spoke with the in the patients room. TANYA informed the that [facility] declined his but that [facility] can accepted her. TANYA explained that SW could also set the patient up with HH or OP therapy if they are not interested in TCU. SW asked the if wanted a list of SNF facilities and he stated no. TANYA explained that insurance will need to approve the patient DC to TCU and that the insurance will decide on how many days she gets approved for. The stated he wanted to discuss it with his daughter. SW explained SW will check back with him on the decision. SYBIL Bustamante
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
--- NOTE | 2025-03-19 12:58 | CASEMGMT ---
Social Work SW spoke with the and he reported he wants his to DC to TCU. SW informed him SW will let TCU know so they can request approval from the insurance company. SYBIL Bustamante
[2025-03-19 14:26] VITALS: BP 129/81; PULSE 89; RESP 16; TEMP 36.9; O2SAT 94
[2025-03-19 14:56] VITALS: BMI 26.2
[2025-03-19 20:30] VITALS: BP 142/75; PULSE 90; RESP 16; TEMP 37.1; O2SAT 94
[2025-03-20 03:03] VITALS: BMI 26.2
[2025-03-20 03:45] VITALS: BP 155/68; PULSE 70; RESP 16; TEMP 37; O2SAT 97
[2025-03-20 05:38] VITALS: BMI 26.4
[2025-03-20 07:50] LABS: Hematocrit 32.1 % (37-47); Hemoglobin 10.8 g/dL (12.0-15.0); Immature Granulocytes Count 0.170 X10^3/uL (0.0-0.0); Mean Corp Hgb Conc 33.6 g/dL (32-36); Mean Corpuscular Volume 81.9 fL (81-99); Mean Platelet Vol. 9.4 fl (6.2-12.0); NRBC Flagged by Analyzer 0 % (0-5); Platelet Count 379 K/mm3 (150-450); RBC Distribution Width CV 13.5 % (11.6-14.6); RBC Distribution Width SD 40.4 fl (35.1-43.9); Red Blood Count 3.92 M/mm3 (4.2-5.4); White Blood Count 14.2 K/mm3 (4.4-11.0)
[2025-03-20 08:16] LABS: Anion Gap 9 (7-18); BUN 19 mg/dL (4-19); BUN/Creat Ratio 28.4 RATIO (10-20); Calcium,Total 8.8 mg/dL (7.6-11.0); Carbon Dioxide 23.5 mmol/L (20.0-29.0); Chloride 109 mmol/L (96-106); Estimated Creatinine Clearance 43.69 ml/min (50-250); Glucose 102 mg/dL (70-99); Potassium 3.4 mmol/L (3.5-5.1)
--- NOTE | 2025-03-20 09:03 | CASEMGMT ---
Social Work SW called the and informed him that the insurance denied the DC to SNF. SW explained that the insurance company stated it was not medically necessary because of well his is walking. His is walking over 80' contact guard. SW asked if the wants SW to set up HH and if he wants a list of HH agencies. The stated they had [facility] HH before. SW asked if he wanted SW to set up HH with [facility] and the stated yes. SYBIL Bustamante
[2025-03-20 09:55] VITALS: BP 140/78; PULSE 85; RESP 16; TEMP 36.9; O2SAT 95
--- NOTE | 2025-03-20 10:22 | CASEMGMT ---
Discharge Planning A list of?HH providers including quality and resource use data and consistent with the patient's preferred geographic region, medical needs, and insurance network was created in [employer] Guide.? This list was provided to the SW. Trini Cervantes Discharge Planning Asst.
--- NOTE | 2025-03-20 10:30 | CASEMGMT ---
MICHELA BRYANT NOTE: Call received from Lizette @ [facility]. They are not able to accept pt d/t they are full. TANYA Roche, made aware. Ni DOWNEY RN CM
--- NOTE | 2025-03-20 10:39 | CASEMGMT ---
Social Work SW spoke with the and explained [facility] cannot accept the patient due not currently accepting new patients. A list of?HH?providers including quality and resource use data and consistent with the patient's preferred geographic region, medical needs, and insurance network was created in [employer] Guide.? This list was provided to the patient. SW discussed the HH options and the chose [facility]. A referral will be sent to [facility]. SYBIL Bustamante
--- NOTE | 2025-03-20 10:49 | CASEMGMT ---
Addendum entered by Trini Cervantes 03/20/25 12:07: [facility] accepted. SW updated. Original Note: Discharge Planning referral sent via [facility] to [facility]. Trini Cervantes DC Planning Asst.
[2025-03-20 13:55] VITALS: BP 143/63; PULSE 72; RESP 16; TEMP 37.2; O2SAT 95
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
[2025-03-20 15:13] VITALS: BMI 26.4
[2025-03-20 17:08] LABS: V-Zoster Virus DNA, PCR Negative (Negative)
[2025-03-20] MEDS: 0.9% Saline Lock 10 ML Syringe IV (19:56)
[2025-03-20 21:02] VITALS: BP 158/69; PULSE 71; RESP 17; TEMP 36.9; O2SAT 96
[2025-03-20] MEDS: MELATONIN 3 MG TABLET PO (21:09)
[2025-03-21] VITALS (12 sets, daily range): BP systolic 90–151; BP diastolic 42–83; PULSE 67–73; RESP 16–18; TEMP 36.2–37; O2SAT 94–97; BMI 26.4; BMI 26.5
[2025-03-21 04:02] LABS: Hematocrit 32.8 % (37-47); Hemoglobin 11.2 g/dL (12.0-15.0); Immature Granulocytes Count 0.190 X10^3/uL (0.0-0.0); Mean Corp Hgb Conc 34.1 g/dL (32-36); Mean Corpuscular Volume 81.2 fL (81-99); Mean Platelet Vol. 8.8 fl (6.2-12.0); NRBC Flagged by Analyzer 0 % (0-5); Platelet Count 406 K/mm3 (150-450); RBC Distribution Width CV 13.3 % (11.6-14.6); RBC Distribution Width SD 39.4 fl (35.1-43.9); Red Blood Count 4.04 M/mm3 (4.2-5.4); White Blood Count 16.9 K/mm3 (4.4-11.0)
[2025-03-21 04:11] LABS: Prothrombin Time (Protime)PT. 14.5 SECONDS (11.7-14.9)
[2025-03-21 04:12] LABS: Partial Thromboplast Time 30.1 Seconds (24.1-36.2)
[2025-03-21 04:22] LABS: Anion Gap 10 (7-18); BUN 13 mg/dL (4-19); BUN/Creat Ratio 19.5 RATIO (10-20); Calcium,Total 9.1 mg/dL (7.6-11.0); Carbon Dioxide 24.2 mmol/L (20.0-29.0); Chloride 104 mmol/L (96-106); Estimated Creatinine Clearance 43.69 ml/min (50-250); Glucose 121 mg/dL (70-99); Potassium 3.1 mmol/L (3.5-5.1)
--- NOTE | 2025-03-21 05:55 | EKG12_ITS ---
Test Reason : EGD Blood Pressure : */* mmHG Vent. Rate : 70 BPM Atrial Rate : 70 BPM P-R Int : 178 ms QRS Dur : 106 ms QT Int : 414 ms P-R-T Axes : 21 -26 -3 degrees QTcB Int : 447 ms Normal sinus rhythm Minimal voltage criteria for LVH, may be normal variant ( [place] product ) Borderline ECG Confirmed by Miguel Dugan ([id number]), communications editor GOSIA JOHNSON ([id number]) on 03/23/2025 7:33:28 AM Referred By: Confirmed By: Miguel Dugan
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
[2025-03-21] MEDS: 0.9% Saline Lock 10 ML Syringe IV (10:45)
[2025-03-21] MEDS: Potassium Chloride 10mEq/100mL 10 MEQ/100 ML IV.SOLN. 100 MEQ IV BOLUS ×3 (10:52→16:10)
--- NOTE | 2025-03-21 11:39 | PRE.ANES_ITS ---
ASA Classification* ASA Classification ASA Classification: 3 Assessment & Plan Anesthesia* Anesthesia Assessment Anesthesia Assessment: Discussed sedation and/or anesthesia options, risks, benefits, and alternatives with patient/parents/legal guardian/POA. Questions invited. The patient/parents/legal guardian/POA seems to understand and agrees to proceed with anesthesia plan. Reviewed the physical assessment, medical history, allergy history and patient home medications list prior to surgery/procedure/anesthetic and documented any changes. Performed airway and anesthesia risk assessments. Anesthesia Type Anesthesia Type: MAC Anesthesia Focused Assessment* Temperature: 98.6 F Pulse Rate: 73 Blood Pressure: 138/55 Respiratory Rate: 18 Pulse Ox: 95 Oxygen Flow Rate (L/min): 2 Airway Assessment Mouth opens: >3 cm Mallampati Score: II Labs Anesthesia Preop lab: CBC WBC, (4.4-11.0) 16.9 K/mm3 H Today, 03:50 RBC, (4.2-5.4) 4.04 M/mm3 L Today, 03:50 Hgb, (12.0-15.0) 11.2 g/dL L Today, 03:50 Hct, (37-47) 32.8 % L Today, 03:50 Plt Count, (150-450) 406 K/mm3 Today, 03:50 CHEMISTRY Potassium, (3.5-5.1) 3.1 mmol/L L Today, 03:50 Sodium, (135-145) 138 mmol/L Today, 03:50 Magnesium, (1.5-2.2) 2.3 mg/dL H 03/17/25, 10:42 Phosphorus, (2.7-4.5) 1.6 mg/dL L 03/17/25, 10:42 BUN, (4-19) 13 mg/dL Today, 03:50 Creatinine, (0.70-1.20) 0.68 mg/dL L Today, 03:50 Glucose, (70-99) 121 mg/dL H Today, 03:50 POC Glucose, (74-106) 104 mg/dL 04/03/24, 12:13 TSH, (0.300-4.200) 0.599 uIU/mL 03/16/25, 02:06 COAG PT, (11.7-14.9) 14.5 SECONDS Today, 03:50 Pre-Assessment Diagnosis/Proposed Procedure Planned Operative Procedure(s): EGD Anesthesia History 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 When Was Last Pacemaker Check QUESTION #4 FULL TEXT: You/Your Family Experience fever (hyperthermia) with Anesthesia Last Oral Intake Last Oral intake: Last Oral Intake NPO since 00:00 03/21/25 03:25 Meds taken in AM with sips of No 03/21/25 03:25 water? Meds patient instructed to take am of surgery PONV PONV - shell sieve operator: PONV - shell sieve operator Female HX of Motion Sickness HX of N/V After Surgery Non-Smoker Duration of Surgery greater than 60 minutes Number of Risk Factors PONV Score Height & Weight Height & Weight: Anesthesia: Height & Weight Height 4 ft 9.87 in 03/21/25 08:54 Weight: 57.2 kg 03/21/25 08:54 Body Mass Index (BMI) 26.5 03/21/25 11:31 Respiratory Assessment Respiratory Assessment - shell sieve operator: Respiratory Tract Infection Hx - shell sieve operator Hx Respiratory Tract Infection No 03/21/25 03:22 STOP Sleep Apnea STOP Sleep Apnea - shell sieve operator: STOP Sleep Apnea - shell sieve operator Hx Hypertension No 03/21/25 11:31 Hx Sleep Apnea No 03/15/25 18:32 CPAP BIPAP Do you snore loudly (louder No 03/15/25 18:32 than talking or can be heard Do you often feel tired/ No 03/15/25 18:32 fatigued/ sleepy during daytime? Has anyone observed you stop No 03/15/25 18:32 breathing during sleep? STOP Results Negative 03/15/25 18:32 QUESTION #5 FULL TEXT : Do you snore loudly (louder than talking or can be heard through closed doors)? Tobacco Use History Tobacco Use History - shell sieve operator: Tobacco Use History - shell sieve operator Tobacco Use Smoking Status Never smoker 03/21/25 11:31 Hx Tobacco Use No 03/15/25 18:32 Years Smoking Packs Smoked per Day Smoking Cessation Date was within the last 15 years Hx Smoking Cessation Date Hx Smoking Cessation No 03/17/25 09:35 Counseling Hematologic Medial History Hematologic Hx - shell sieve operator: Hematologic Medical Hx - manager utilization Hx of Blood Transfusion No 03/15/25 18:32 Hx of Transfusion in last 3 No 03/15/25 18:32 Months Date of Last Transfusion (if within last 3 months) Ever experience any problems No 03/15/25 18:32 with transfusion(s)? Specify any problems Hx of Preganancy in last 3 No 03/15/25 18:32 Months Nurse Filling Out Transfusion AHILLER 03/15/25 18:32 & Questions: Date: 03/15/25 03/15/25 18:32 Time: 18:35 03/15/25 18:32 Patient unable to answer at this time (ie. confused, unrespo /Reproduction History /Reproductive History - shell sieve operator: /Reproductive Hx- shell sieve operator Hx Now No 03/21/25 03:22 Gestational Age (in weeks): EDC: Hx Hx Para Hx Section SAB No 03/21/25 03:22 Does the father of the baby or his family experience fever w Father of the baby Malignant Hypertension history comment Active Medications Active Medications: Current Medications Generic Name Dose Route Start Last Admin Trade Name Freq PRN Reason Stop Dose Admin Acetaminophen 650 mg 03/15/25 18:22 Acetaminophen 650 Mg Suppository RC Q4H PRN PRN Fever, pain 1-10 Acetaminophen 650 mg 03/15/25 18:22 03/18/25 14:27 Acetaminophen 325 Mg Tablet PO 650 mg Q4H PRN PRN Administration Fever, pain 1-10/10 Al Hydrox/Mg Hydrox/Simethicone 30 ml 03/15/25 18:22 Mag /Aluminum/Simeth Wch Udc 30 Ml Oral.Susp PO Q6H PRN PRN Gastric Burning Albuterol Sulfate 2.5 mg 03/15/25 18:22 Albuterol 2.5 Mg/3 Ml Vial.Neb. INHALATION Q2H PRN PRN Dyspnea, wheezing Calamine/Phenol 1 applic 03/15/25 18:22 03/21/25 10:44 Menthol/Lanolin/Calamine/Znox 113 Gm Tube TOPICAL Not Given 4X/DAY KATE Protocol Guaifenesin 20 ml 03/15/25 18:22 Guaifenesin 10 Ml Udc (200mg/10ml) PO Q4H PRN PRN COUGH Sodium Chloride 250 mls @ 15 mls/hr 03/15/25 20:36 03/18/25 18:09 IV Infused .[id number] PRN Infusion Saline Flush Sodium Chloride 250 mls @ 15 mls/hr 03/15/25 20:36 IV .[id number] PRN Additional IVPB Infusion Potassium Chloride 10 meq in 100 mls @ 100 mls/hr 03/21/25 10:15 03/21/25 10:52 IV BOLUS 03/21/25 14:14 100 mls/hr Q1H KATE Administration Melatonin 3 mg 03/15/25 18:22 03/20/25 21:09 Melatonin 3 Mg Tablet PO 3 mg QHS PRN PRN Administration INSOMNIA Ondansetron HCl 4 mg 03/15/25 18:22 03/18/25 22:16 Ondansetron 4 Mg/2 Ml Vial IV 4 mg Q8H PRN PRN Administration NAUSEA/VOMITING Pantoprazole Sodium 40 mg 03/17/25 10:00 03/21/25 10:44 Pantoprazole Sodium 40 Mg Tablet PO 40 mg DAILY KATE Administration Senna/Docusate Sodium 2 tablet 03/15/25 18:22 03/18/25 14:27 Senna/Docusate Sodium 1 Tablet PO 2 tablet BID PRN PRN Administration Constipation Sodium Chloride 10 - 40 ml 03/15/25 18:24 03/21/25 10:45 0.9% Saline Lock 10 Ml Syringe IV 10 ml UD PRN Administration SALINE FLUSH PFSH Medical History History of MRSA infection MRSA bacteremia History of traumatic brain injury History of osteomyelitis History of ulcerative colitis Home Medications ?Medication ?Instructions ?Recorded ?Last Taken ?Type ciprofloxacin HCl 500 mg tablet 500 mg PO BIDAC antibi otic #10 tabs 01/18/25 Unknown Rx Allergy/AdvReac Type Severity Reaction Status Date / Time Penicillins Allergy Swelling Verified 03/15/25 13:18 Family History Father CAD (coronary artery disease) Heart disease Hypertension Myocardial infarction Mother No problems noted. Surgical History S/P carpal tunnel release S/P tubal ligation S/P section Hx of lumbosacral spine surgery Social History household members: spouse housing: house Smoking Status: Never smoker alcohol intake: never substance use type: does not use Review of Systems (Anesthesia) ROS Narrative System reviewed and no additional complaints, except as documented.
--- NOTE | 2025-03-21 11:40 | NURSING ---
Report called to AC Charge nurse
--- NOTE | 2025-03-21 11:42 | SUR.PREOP ---
pt down to ac from the floor oriented to pre op plan of care
[2025-03-21] MEDS: Lactated Ringers 1,000 ML 15 ML IV (12:05)
--- NOTE | 2025-03-21 12:45 | EGD_PTH ---
PATIENT: JANNY HAMMER LOC: [facility] U#:[id number] AGE/SX: 80/F ROOM: [facility] RE03/15/[address]: Dr. Krysten Delarosa MD : 1945 BED: 1 DIS: 03/21/2025 SPEC #: [id number] RECD: 03/22/25 14:42 STATUS: EMANI REQ #: [id number] BUD: 03/21/25 12:[address]: Kevin Ty DEPT: SURGICAL PATHOLOGY RECD BY: Marilyn Barnhart ENTERED: 03/23/25 09:19 SP TYPE: EGD BIOPSY OTHR DR: MD Dr. Lorena Padilla MD Archana Hinduja, MD Dr. Allison Jordan, MD Dr. Lina Armstrong Dr., MD Danielle Becker, MD Dr. Deepak Gulati, MD Dr. David Kittoe, MD Dr. Hera Kamdar, MD Dr. Jan Bittar, MD Dr. James Burke, MD Jesse Mindel, MS MD Yandel Garcia MD Dr. Leia Franchini, DO MD Roxy JOEL MD Dr. Matthew Gusler, MD Dr. Maryam Mian, MD Dr. Mohamed Ridha, MD Dr. Mhd Ezzat Zaghlouleh, MD Nabil Khandker, MD Dr. Nana Yaa Koram, MD Dr. Prakash Chand, MD Dr. Peter Robinson, MD Dr. Rahsaan Friend, DO Dr. Rami Ibrahim, MD Dr. Robert Lindsay, DO Dr. Jose Austin, MD Dr. Jagruti Krishnan MD Yousef Hannawi, MD Roberta Monteiro, CRYSTALIZER TENDER-C Enma Menjivar, CRYSTALIZER TENDER-CATHRYN Leo Tissues: A - Esophageal mucous membrane Procedures: Surgery Specimen Level IV Comments: @ Ordering doctor for MIL edited from to @ by JANEL at 03/27/25 131 @ Submitting doctor edited from to @ by JANEL at 03/27/252 HEADER OPERATION: EGD with biopsy PRE-OP DIAGNOSIS: Acute upper gastrointestinal bleeding TISSUE SUBMITTED: A. Random esophagus MICROSCOPIC DIAGNOSIS A. Esophagus, random, biopsy: - Squamous mucosa with reactive changes, up to 3 eosinophils per high power field. MICROSCOPIC DESCRIPTION Slides are reviewed. GROSS DESCRIPTION A. Received is one container labeled with the patient name and designated Hemal esophagus. The specimen consists of multiple irregular fragments of light gonzalez soft tissue that in aggregate measure 1.75 x 0.3 x 0.5 cm. The specimen is totally submitted in one cassette. CARRIE 03/23/2025 CPT: 47205
[2025-03-21] MEDS: Lidocaine 1% (5 ml sdv) 5 ML Vial 8 ML IV (14:12)
--- NOTE | 2025-03-21 14:21 | OP.EGD_ITS ---
Patient Name: Zoila Webster Procedure Date: 03/21/2025 2:03 PM Date of : 1945 Age: 80 Procedure: Upper GI endoscopy Indications: Epigastric abdominal pain, Coffee-ground emesis Providers: Kevin Ty DO Medicines: Monitored Anesthesia Care Patient Profile: This is an 80 year old female. Refer to note in patient chart for documentation of history and physical. Patient has symptoms of acute epigastric abdominal pain and acute vomiting. Complications: No immediate complications. Procedure: Pre-Anesthesia Assessment: - Prior to the procedure, a History and Physical was performed, and patient medications and allergies were reviewed. The patient is competent. The risks and benefits of the procedure and the sedation options and risks were discussed with the patient. All questions were answered and informed consent was obtained. Patient identification and proposed procedure were verified by the physician in the pre-procedure area. Mental Status Examination: alert and oriented. Airway Examination: normal oropharyngeal airway and neck mobility. Respiratory Examination: clear to auscultation. CV Examination: normal. Prophylactic Antibiotics: The patient does not require prophylactic antibiotics. Prior Anticoagulants: The patient has taken no anticoagulant or antiplatelet agents. ASA Grade Assessment: II - A patient with mild systemic disease. After reviewing the risks and benefits, the patient was deemed in satisfactory condition to undergo the procedure. The anesthesia plan was to use monitored anesthesia care (MAC). Immediately prior to administration of medications, the patient was re-assessed for adequacy to receive sedatives. The heart rate, respiratory rate, oxygen saturations, blood pressure, adequacy of pulmonary ventilation, and response to care were monitored throughout the procedure. The physical status of the patient was re-assessed after the procedure. After obtaining informed consent, the endoscope was passed under direct vision. Throughout the procedure, the patient's blood pressure, pulse, and oxygen saturations were monitored continuously. The Endoscope was introduced through the mouth, and advanced to the third part of the duodenum. Small bowel enteroscopy was deemed necessary. The upper GI endoscopy was accomplished without difficulty. The patient tolerated the procedure well. Scope In: 2:14:06 PM Scope Out: 2:16:26 PM Total Procedure Duration Time 0 hours 2 minutes 20 seconds Findings: Diffuse, white plaques were found in the entire esophagus. Biopsies were taken with a cold forceps for histology. Verification of patient identification for the specimen was done. Estimated blood loss was minimal. Mucosal changes including ringed esophagus and small-caliber esophagus were found in the entire esophagus. Biopsies were obtained from the proximal and distal esophagus with cold forceps for histology of suspected eosinophilic esophagitis. Verification of patient identification for the specimen was done. Estimated blood loss was minimal. A 5 mm non-bleeding Nyasia-Cheek tear with no stigmata of recent bleeding was found. A small hiatal hernia was present. No gross lesions were noted in the entire examined stomach. No gross lesions were noted in the entire examined duodenum. Impression: - Esophageal plaques were found, consistent with candidiasis. Biopsied. - Esophageal mucosal changes consistent with eosinophilic esophagitis. - Nyasia-Cheek tear. - Small hiatal hernia. - No gross lesions in the entire stomach. - No gross lesions in the entire examined duodenum. - Biopsies were taken with a cold forceps for evaluation of eosinophilic esophagitis. Recommendation: - Discharge patient to home. - Advance diet as tolerated. - Continue present medications. - Nystatin suspension 100,000 units PO QID for 7 weeks. - Use Protonix (pantoprazole) 20 mg PO BID for 2 months. Procedure Code(s): --- Professional --- 08100, Small intestinal endoscopy, enteroscopy beyond second portion of duodenum, not including ileum; with biopsy, single or multiple CPT copyright 2021 [employer]. All rights reserved. The codes documented in this report are preliminary and upon home teaching grades 7 and 8 teacher review may be revised to meet current compliance requirements. Kevin Ty DO 03/21/2025 2:21:28 PM This report has been signed electronically. Number of Addenda: 0 Note Initiated On: 03/21/2025 2:03 PM
--- NOTE | 2025-03-21 14:22 | OP.PROVAT_ITS ---
03/21/2025 Gianni Vizcarra [address] [place] [address] Re : Upper GI endoscopy procedure for Zoila Webster Dear Dr. Vizcarra This procedure was performed on Friday, March 21, 2025. My impressions and recommendations are as follows: Impressions : - Esophageal plaques were found, consistent with candidiasis. Biopsied. - Esophageal mucosal changes consistent with eosinophilic esophagitis. - Nyasia-Cheek tear. - Small hiatal hernia. - No gross lesions in the entire stomach. - No gross lesions in the entire examined duodenum. - Biopsies were taken with a cold forceps for evaluation of eosinophilic esophagitis. Recommendations : - Discharge patient to home. - Advance diet as tolerated. - Continue present medications. - Nystatin suspension 100,000 units PO QID for 7 weeks. - Use Protonix (pantoprazole) 20 mg PO BID for 2 months. My findings are described in the full procedure note, which is enclosed. If I can be of further assistance, please feel free to contact me at . Sincerely, Kevin Friend, 03/21/2025 2:21:28 PM This report has been signed electronically.
--- NOTE | 2025-03-21 14:23 | PCM.POST.ANE ---
Anesthesia: Postop Eval I Current Vital Signs Temperature: 97.7 F Pulse Rate: 71 Blood Pressure: 99/59 Respiratory Rate: 16 Pulse Ox: 95 Assessment Airway patent: Yes Spontaneous unlabored respirations: Yes nausea: No Vomiting: No Anesthesia Complication: No Fluid Hydration Crystalloid volume administer (ml): 300 Total IV fluid infused: 300 Progress Note Anesthesia document: Postop Eval 1 completed: Yes
--- NOTE | 2025-03-21 14:54 | CASEMGMT ---
Social Work SW spoke with the patient and informed [facility] has accepted his as a patient and they will been notified once the patient discharges. SYBIL Bustamante
--- NOTE | 2025-03-21 15:08 | POSTOPAN2_ITS ---
Anesthesia Postop Eval I Sum Postop Eval Completion status Anesthesia document: Postop Eval 1 completed: Yes Anesthesia Postop Eval I Summary Anesthesia Postop Eval I Summary: Anesthesia Postop Eval I: Assessment Summary Airway patent Yes 03/21/25 14:23 ENROBING MACHINE [email or web address] Spontaneous unlabored Yes 03/21/25 14:23 ENROBING MACHINE [email or web address] respirations Mental status nausea No 03/21/25 14:23 ENROBING MACHINE [email or web address] Vomiting No 03/21/25 14:23 ENROBING MACHINE [email or web address] Anesthesia Postop Eval I: Fluid Summary Crystalloid volume administer 300 03/21/25 14:23 ENROBING MACHINE [email or web address] (ml) Colloids volume administered ( ml) Blood Product volume administered (ml) Total IV fluid infused 300 03/21/25 14:23 ENROBING [email or web address] Anesthesia Postop Eval I: Summary Notes Anesthesia Complication No 03/21/25 14:23 ENROBING MACHINE [email or web address] Anesthesia Complication Comment: Post-operative progress note Anesthesia: Postop Eval II Evaluation Mental status: Awake and Calm Pain Level: 0 nausea: No Vomiting: No Complications Anesthesia Complication: No
--- NOTE | 2025-03-21 15:08 | PCM.POSTANE2 ---
Anesthesia Postop Eval I Sum Postop Eval Completion status Anesthesia document: Postop Eval 1 completed: Yes Anesthesia Postop Eval I Summary Anesthesia Postop Eval I Summary: Anesthesia Postop Eval I: Assessment Summary Airway patent Yes 03/21/25 14:23 [email or web address] Spontaneous unlabored Yes 03/21/25 14:23 SUPERVISOR [email or web address] respirations Mental status nausea No 03/21/25 14:23 SUPERVISOR [email or web address] Vomiting No 03/21/25 14:23 SUPERVISOR [email or web address] Anesthesia Postop Eval I: Fluid Summary Crystalloid volume administer 300 03/21/25 14:23 SUPERVISOR [email or web address] (ml) Colloids volume administered ( ml) Blood Product volume administered (ml) Total IV fluid infused 300 03/21/25 14:23 SUPERVISOR [email or web address] Anesthesia Postop Eval I: Summary Notes Anesthesia Complication No 03/21/25 14:23 SUPERVISOR [email or web address] Anesthesia Complication Comment: Post-operative progress note Anesthesia: Postop Eval II Evaluation Mental status: Awake and Calm Pain Level: 0 nausea: No Vomiting: No Complications Anesthesia Complication: No
--- NOTE | 2025-03-21 15:09 | POSTOPAN2_ITS ---
Anesthesia Postop Eval I Sum Postop Eval Completion status Anesthesia document: Postop Eval 1 completed: Yes Anesthesia Postop Eval I Summary Anesthesia Postop Eval I Summary: Anesthesia Postop Eval I: Assessment Summary Airway patent Yes 03/21/25 14:23 [email or web address] Spontaneous unlabored Yes 03/21/25 14:23 [email or web address] respirations Mental status Awake,Calm 03/21/25 15:09 [email or web address] nausea No 03/21/25 15:09 PAN [email or web address] Vomiting No 03/21/25 15:09 PAN [email or web address] Anesthesia Postop Eval I: Fluid Summary Crystalloid volume administer 300 03/21/25 14:23 [email or web address] (ml) Colloids volume administered ( ml) Blood Product volume administered (ml) Total IV fluid infused 300 03/21/25 14:23 [email or web address] Anesthesia Postop Eval I: Summary Notes Anesthesia Complication No 03/21/25 15:09 [email or web address] Anesthesia Complication Comment: Post-operative progress note Anesthesia: Postop Eval II Evaluation Mental status: Awake and Calm Pain Level: 0 nausea: No Vomiting: No
--- NOTE | 2025-03-21 15:09 | PCM.POSTANE2 ---
Anesthesia Postop Eval I Sum Postop Eval Completion status Anesthesia document: Postop Eval 1 completed: Yes Anesthesia Postop Eval I Summary Anesthesia Postop Eval I Summary: Anesthesia Postop Eval I: Assessment Summary Airway patent Yes 03/21/25 14:23 BOOM [email or web address] Spontaneous unlabored Yes 03/21/25 14:23 BOOM CONVEYOR [email or web address] respirations Mental status Awake,Calm 03/21/25 15:09 BOOM CONVEYOR [email or web address].SHOF nausea No 03/21/25 15:09 BOOM CONVEYOR [email or web address].[email or web address] Vomiting No 03/21/25 15:09 BOOM CONVEYOR [email or web address].SHOF Anesthesia Postop Eval I: Fluid Summary Crystalloid volume administer 300 03/21/25 14:23 BOOM CONVEYOR [email or web address] (ml) Colloids volume administered ( ml) Blood Product volume administered (ml) Total IV fluid infused 300 03/21/25 14:23 BOOM CONVEYOR [email or web address].[email or web address] Anesthesia Postop Eval I: Summary Notes Anesthesia Complication No 03/21/25 15:09 BOOM CONVEYOR OPERATOR.SHOF Anesthesia Complication Comment: Post-operative progress note Anesthesia: Postop Eval II Evaluation Mental status: Awake and Calm Pain Level: 0 nausea: No Vomiting: No
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
--- NOTE | 2025-03-21 16:13 | DCINST_ITS ---
Discharge Instructions DC O2, CPAP, BIPAP needs Home O2 Discharge instructions: No Dressing / Incision Discharge Activity: Return to Normal Activity Weight Bearing Status: Weight bearing as tolerated Dressing / Incision Call your doctor if you observe: Fever of 101 or Higher, Shortness of breath, Dizziness, Swelling in the ankles and Chest pain Follow Up Care Test Results: Test results from this visit will be discussed in further detail at your follow- up appointment, if applicable. Discharge Plan Admission Admit Date/Time: 03/15/25 16:52 Primary Reason for Your Visit: confusion, aphasia Attending Provider: Krysten Delarosa Primary Care Provider: Gianni Vizcarra Consulting Providers: Erick Hazel; Lorena Solis; June Scott; Shanae Obrien; Lina Poe; Jamin Aguila; Heidi Newell; Walter Montes De Oca; Jose Antonio Rhoades; Maciel Dougherty; Claudia Harden; Roxy Silverman; Clint Antony; Tita Aviles; Nico Campbell; Lucinda Palomares; Michael Sandoval; Frances Lee; Jose Avila; Jagruti Hansen; Kathleen Lieberman; Bela Iyer; Lola Pradhan; Hira Cancino; Yandel Hernandze; JANETH DARLING; Juanito Morales; Kari Capellan; Krysten Delarosa; Miguel Brantley; Dat Ahuja; Kevin Ty; Roberta Monteiro; Enma Menjivar; Christa Haas Instructions Patient Instructions: What Is Aphasia? Discharge Orders/Prescriptions Prescriptions: New pantoprazole 20 mg tablet,delayed release (DR/EC) 20 mg PO BID Qty: 60 1RF Discontinued ciprofloxacin HCl 500 mg Tablet 500 mg PO BIDAC Qty: 10 0RF Referrals / Follow Up: Kevin Ty DO [Med Staff - Active Staff, Gastroenterology] - Within 2 Weeks Gianni Vizcarra DO [Primary Care Provider, Family Practice] - Within 1 Week Disposition Disposition (needs filled in before D/C Order can be placed): Home Health Service
[2025-03-21] MEDS: Potassium Chloride Oral Tablet 20 MEQ 40 MEQ PO (18:43)
== END 2025-03-21 19:40 | disposition home health service (06) | DRG 70 ==
LOC: ED 16:55 → PCU 03-16 07:14
PROVIDERS: Anesthesiology; Internal Medicine; Internal Medicine Gastroenterology; Admitting Provider Family Medicine; Emergency Provider Emergency Medicine; PCP Preventive Medicine Occupational Medicine; Visit Provider Student in an Organized Health Care Education/Training Program
PROC: 0DJ08ZZ Inspection of Upper Intestinal Tract, Via Natural or Artificial Opening Endoscopic (ICD-10-PCS; CPT 43235; principal; 2025-03-21 12:40)
DX: G93.41 Metabolic encephalopathy (principal); K22.6 Gastro-esophageal laceration-hemorrhage syndrome; B37.81 Candidal esophagitis; R47.01 Aphasia; D62 Acute posthemorrhagic anemia; D63.1 Anemia in chronic kidney disease; G81.91 Hemiplegia, unspecified affecting right dominant side; K20.0 Eosinophilic esophagitis; E87.6 Hypokalemia; N18.2 Chronic kidney disease, stage 2 (mild); K44.9 Diaphragmatic hernia without obstruction or gangrene; Z79.899 Other long term (current) drug therapy; Z86.14 Personal history of Methicillin resistant Staphylococcus aureus infection; Z87.19 Personal history of other diseases of the digestive system; Z87.820 Personal history of traumatic brain injury
CPT/HCPCS: 36415; 36600; 51702; 62270; 70450; 70496; 70498; 70551; 71045; 80048; 80053; 80061; 81001; 82140; 82274; 82803; 82945; 83036; 83605; 83735; 84100; 84145; 84157; 84443; 84484; 85014; 85018; 85025; 85027; 85610; 85730; 87040; 87070; 87077; 87086; 87088; 87149; 87186; 87205; 87498; 87529; 87631; 87633; 87641; 87798; 88305; 89050; 89051; 92507; 92523; 92526; 92610; 93005; 93306; 94762; 95819; 97110; 97116; 97129; 97163; 97167; 97530; 97535; 99285; J2185; J3101; Q9967; A4216; J2405